=== PATIENT | female | born 1935 | race African-American/Black ===

== ENCOUNTER → 2017-07-12 12:15 | Outpatient (CLI) | payer MEDICARE, SELFPAY ==
--- NOTE | 2017-07-12 12:27 | EKG12_ITS ---
Test Reason : PRESSURE Blood Pressure : / mmHG Vent. Rate : 073 BPM Atrial Rate : 073 BPM P-R Int : 162 ms QRS Dur : 084 ms QT Int : 386 ms P-R-T Axes : 065 -18 -05 degrees QTc Int : 425 ms Normal sinus rhythm Leftward axis Nonspecific T wave abnormality Confirmed by DANISHA SALMON, [place] ([id number]), photograph editor SAMI PARRISH ([id number]) on 07/13/2017 1:51:03 PM Referred By: Wayne Leahy Confirmed By:CHINA RAMAN MD
[2017-07-12 13:18] LABS: Absolute Lymphocyte Count 2.54 X10^3/ul (0.83-4.51); Absolute Neutrophil Count 3.3 X10^3/uL (2.0-7.7); Basophil# 0.06 X10^3/uL; Basophil% 0.9 % (0-1); Eosinophil# 0.24 X10^3/uL; Eosinophils% 3.6 % (0-5); Hematocrit 39.4 % (37-47); Hemoglobin 11.6 g/dl (12.0-15.0); Lymphocyte # 2.54 X10^3/ul (4.0); Lymphocyte % 37.6 % (19-41); Mean Corp Hgb Conc 29.4 g/gl (32-36); Mean Corpuscular Hgb 25.3 pg (27.0-32.0); Mean Corpuscular Volume 85.8 fL (81-99); Mean Platelet Vol. 11.9 fl (6.2-12.0); Monocyte# 0.61 X10^3/uL; Neutrophil % 48.8 % (47-70); Platelet Count 182 K/mm3 (150-450); RBC Distribution Width CV 14.5 % (11.6-14.6); RBC Distribution Width SD 45.7 fl (35.1-43.9); Red Blood Count 4.59 M/mm3 (4.2-5.4); White Blood Count 6.8 K/mm3 (4.4-11.0)
[2017-07-12 13:29] LABS: POSITIVE COUNT NO; POSITIVE DIFFERENTIAL NO; POSITIVE MORPHOLOGY NO
[2017-07-12 13:46] LABS: ALB/GLOB Ratio 0.9 RATIO (0.9-2.4); AST(SGOT) 22 U/L (15-37); Alanine Aminotransfer ALT/SGPT 22 U/L (13-56); Albumin, Serum 3.5 g/dL (3.2-5.0); Alkaline Phosphatase 99 U/L (45-117); Anion Gap 7 (5-15); BUN 24 mg/dL (7-18); BUN/Creat Ratio 14.4 RATIO (10-20); Calcium,Total 8.8 mg/dL (8.5-10.1); Chloride 107 mmol/L (98-107); Cholesterol 161 mg/dL (200); Creatinine, Serum 1.67 mg/dL (0.55-1.02); EST Glomerular Filtration Rate 31 mL/min (>60); Est Glom Filt Rate - Afr Amer 38 mL/min (>60); Glucose 80 mg/dL (74-106); High Density Lipoprotein 55 mg/dL; Potassium 3.9 mmol/L (3.5-5.1); Protein, Total 7.5 g/dL (6.4-8.2); Sodium Level 140 mmol/L (136-145); Triglycerides 113 mg/dL; Very Low Density Lipoprotein 23 mg/dL (5-40)
== END ==
PROVIDERS: Family Provider Family Medicine Geriatric Medicine; PCP Family Medicine Geriatric Medicine; Visit Provider Family Medicine Geriatric Medicine
DX: I10 Essential (primary) hypertension (principal); E78.4 Other hyperlipidemia; E55.9 Vitamin D deficiency, unspecified; R07.9 Chest pain, unspecified
CPT/HCPCS: 36415; 80053; 80061; 82306; 84443; 85025; 93005

== ENCOUNTER → 2017-07-12 14:49 | Outpatient (CLI) | payer MEDICARE, SELFPAY ==
--- NOTE | 2017-07-12 15:12 | MRI_ITS ---
STUDY: MRI BRAIN WITHOUT CONTRAST REASON FOR EXAM: Female, 82 years old. PTOSIS left droop x 1 week, mild amador, hx cva's TECHNIQUE: Standardized multiplanar fat and water weighted pulse sequences were obtained. Sagittal T1 FLAIR, axial diffusion, T2, FLAIR, T1 and gradient as well as coronal T2 images. COMPARISON: July 21, 2015 FINDINGS: There is encephalomalacia associated with the inferior right occipital lobe. This appears old. There is mild diffuse brain volume loss. There are multiple white matter hyperintensities, distributed throughout the deep white matter tracts of the cerebral hemispheres, consistent with mild to moderate chronic white matter ischemic changes. There is no evidence for recent intracranial ischemia or other cause of cytotoxic edema on diffusion weighted imaging (DWI). Normal T2* images of the brain without demonstrated susceptibility artifact. There is no demonstrated hemosiderin stain. Normal bilateral basal ganglia. Normal thalami. There is no extra-axial fluid accumulation. Normal flow voids within the major intracranial circulation suggesting patency by spin echo criteria. Normal sella turcica, pituitary gland, infundibular stalk, optic chiasm and hypothalamus. Normal tectal plate and pineal gland. Normal midbrain, bree and medulla. There appear small bilateral old focal posterior cerebellar infarcts. Normal basal cisterns. Normal bilateral temporal bones. Normal bilateral internal auditory canals. No demonstrated orbital abnormality, within the constraints of a routine brain study. There our bilateral ethmoid airspace opacities. This most prominently involves the anterior ethmoid air spaces. There is also opacity of the left frontal sinus and mucoperiosteal thickening of the inferior right frontal sinus. There is bilateral maxillary mucoperiosteal thickening with dependent fluid on the left. Normal calvarium and skull base. Normal visualized soft tissue structures. Normal visualized upper cervical spine. MRI/Brain without Contrast IMPRESSION: Involutional changes of the brain, as described above. No demonstrated mass. Sinus disease. Electronically Signed: Kenya Berman MD at 18:17 EST Tel , Service support ,
== END ==
PROVIDERS: Family Provider Family Medicine Geriatric Medicine; PCP Family Medicine Geriatric Medicine; Visit Provider Family Medicine Geriatric Medicine
DX: H02.402 Unspecified ptosis of left eyelid (principal); I10 Essential (primary) hypertension; E78.4 Other hyperlipidemia; E55.9 Vitamin D deficiency, unspecified; R07.9 Chest pain, unspecified
CPT/HCPCS: 36415; 70551; 80053; 80061; 82306; 84443; 85025; 93005

== ENCOUNTER → 2017-10-07 08:55 | Outpatient (CLI) | payer MEDICARE, SELFPAY ==
[2017-10-07 12:20] LABS: Absolute Lymphocyte Count 2.28 X10^3/ul (0.83-4.51); Absolute Neutrophil Count 3.5 X10^3/uL (2.0-7.7); Basophil# 0.06 X10^3/uL; Basophil% 0.9 % (0-1); Eosinophil# 0.12 X10^3/uL; Eosinophils% 1.8 % (0-5); Hematocrit 36.9 % (37-47); Lymphocyte # 2.28 X10^3/ul (4.0); Lymphocyte % 34.5 % (19-41); Mean Corp Hgb Conc 29.8 g/gl (32-36); Mean Corpuscular Hgb 26.6 pg (27.0-32.0); Mean Corpuscular Volume 89.3 fL (81-99); Mean Platelet Vol. 12.2 fl (6.2-12.0); Monocyte% 9.1 % (0-10); Neutrophil # 3.54 X10^3/uL (2.7-7.7); Neutrophil % 53.5 % (47-70); Platelet Count 122 K/mm3 (150-450); RBC Distribution Width CV 15.8 % (11.6-14.6); RBC Distribution Width SD 50.8 fl (35.1-43.9); Red Blood Count 4.13 M/mm3 (4.2-5.4); White Blood Count 6.6 K/mm3 (4.4-11.0)
[2017-10-07 12:26] LABS: POSITIVE COUNT NO; POSITIVE DIFFERENTIAL NO; POSITIVE MORPHOLOGY NO
[2017-10-07 12:41] LABS: Vitamin D,25 Hydroxy 34.4 ng/mL (29.95-100.01)
[2017-10-07 13:21] LABS: ALB/GLOB Ratio 0.8 RATIO (0.9-2.4); AST(SGOT) 17 U/L (15-37); Alanine Aminotransfer ALT/SGPT 14 U/L (13-56); Albumin, Serum 2.9 g/dL (3.2-5.0); Alkaline Phosphatase 88 U/L (45-117); Anion Gap 5 (5-15); BUN 27 mg/dL (7-18); BUN/Creat Ratio 12.3 RATIO (10-20); Calcium,Total 7.9 mg/dL (8.5-10.1); Chloride 115 mmol/L (98-107); Cholesterol 160 mg/dL (200); Creatinine, Serum 2.19 mg/dL (0.55-1.02); EST Glomerular Filtration Rate 23 mL/min (>60); Est Glom Filt Rate - Afr Amer 28 mL/min (>60); Globulin 3.7 g/dL (2.2-4.2); Glucose 74 mg/dL (74-106); High Density Lipoprotein 67 mg/dL; Potassium 4.2 mmol/L (3.5-5.1); Protein, Total 6.6 g/dL (6.4-8.2); Sodium Level 144 mmol/L (136-145); Thyroid Stim Hormone (TSH) 4.67 uIU/mL (0.358-3.74); Triglycerides 44 mg/dL; Very Low Density Lipoprotein 9 mg/dL (5-40)
== END ==
LOC: POLAB3 08:56
PROVIDERS: Family Provider Family Medicine Geriatric Medicine; PCP Family Medicine Geriatric Medicine; Visit Provider Family Medicine Geriatric Medicine
DX: I10 Essential (primary) hypertension (principal); E78.4 Other hyperlipidemia; E55.9 Vitamin D deficiency, unspecified; I63.50 Cerebral infarction due to unspecified occlusion or stenosis of unspecified cerebral artery
CPT/HCPCS: 36415; 80053; 80061; 82306; 84443; 85025

== ENCOUNTER → 2018-01-20 09:10 | Outpatient (CLI) | payer MEDICARE, SELFPAY ==
[2018-01-20 12:39] LABS: Absolute Lymphocyte Count 1.67 X10^3/ul (0.83-4.51); Absolute Neutrophil Count 3.5 X10^3/uL (2.0-7.7); Basophil# 0.06 X10^3/uL; Eosinophil# 0.31 X10^3/uL; Eosinophils% 5.1 % (0-5); Hematocrit 37.4 % (37-47); Hemoglobin 11.4 g/dl (12.0-15.0); Lymphocyte # 1.67 X10^3/ul (4.0); Lymphocyte % 27.5 % (19-41); Mean Corp Hgb Conc 30.5 g/gl (32-36); Mean Corpuscular Hgb 27.2 pg (27.0-32.0); Mean Corpuscular Volume 89.3 fL (81-99); Mean Platelet Vol. 12.2 fl (6.2-12.0); Monocyte# 0.53 X10^3/uL; Monocyte% 8.7 % (0-10); Neutrophil % 57.5 % (47-70); Platelet Count 145 K/mm3 (150-450); RBC Distribution Width CV 13.7 % (11.6-14.6); RBC Distribution Width SD 43.9 fl (35.1-43.9); Red Blood Count 4.19 M/mm3 (4.2-5.4); White Blood Count 6.1 K/mm3 (4.4-11.0)
[2018-01-20 12:40] LABS: POSITIVE COUNT NO; POSITIVE DIFFERENTIAL NO; POSITIVE MORPHOLOGY NO
[2018-01-20 12:52] LABS: Vitamin D,25 Hydroxy 29.3 ng/mL (29.95-100.01)
[2018-01-20 12:57] LABS: ALB/GLOB Ratio 0.8 RATIO (0.9-2.4); AST(SGOT) 19 U/L (15-37); Alanine Aminotransfer ALT/SGPT 16 U/L (13-56); Albumin, Serum 3.2 g/dL (3.2-5.0); Alkaline Phosphatase 94 U/L (45-117); Anion Gap 10 (5-15); BUN 26 mg/dL (7-18); BUN/Creat Ratio 12.2 RATIO (10-20); Calcium,Total 8.3 mg/dL (8.5-10.1); Chloride 110 mmol/L (98-107); Cholesterol 146 mg/dL (200); Creatinine, Serum 2.13 mg/dL (0.55-1.02); EST Glomerular Filtration Rate 24 mL/min (>60); Est Glom Filt Rate - Afr Amer 29 mL/min (>60); Globulin 4.1 g/dL (2.2-4.2); Glucose 136 mg/dL (74-106); High Density Lipoprotein 55 mg/dL; Potassium 3.8 mmol/L (3.5-5.1); Protein, Total 7.3 g/dL (6.4-8.2); Sodium Level 144 mmol/L (136-145); Thyroid Stim Hormone (TSH) 0.48 uIU/mL (0.358-3.74); Triglycerides 118 mg/dL; Very Low Density Lipoprotein 24 mg/dL (5-40)
== END ==
PROVIDERS: Family Provider Family Medicine Geriatric Medicine; PCP Family Medicine Geriatric Medicine; Visit Provider Family Medicine Geriatric Medicine
DX: E55.9 Vitamin D deficiency, unspecified (principal); E78.4 Other hyperlipidemia; I10 Essential (primary) hypertension
CPT/HCPCS: 36415; 80053; 80061; 82306; 84443; 85025

== ENCOUNTER → 2018-01-20 14:58 | Outpatient (CLI) | payer MEDICARE, SELFPAY | PROVIDERS: Family Provider Family Medicine Geriatric Medicine; PCP Family Medicine Geriatric Medicine; Visit Provider Urology | DX: C64.9 Malignant neoplasm of unspecified kidney, except renal pelvis (principal); R31.9 Hematuria, unspecified; I10 Essential (primary) hypertension; E55.9 Vitamin D deficiency, unspecified; E78.4 Other hyperlipidemia | CPT/HCPCS: 36415; 74176; 80053; 80061; 82306; 84443; 85025 ==

== ENCOUNTER 2018-01-29 09:12 | Inpatient (IN) | payer MEDICARE, SELFPAY ==
[2018-01-29] VITALS (34 sets, daily range): BP systolic 143–191; BP diastolic 64–101; PULSE 71–93; RESP 14–72; TEMP 36.3–37.1; O2SAT 18–100; BMI 32.7
--- NOTE | 2018-01-29 09:20 | EKG12_ITS ---
Test Reason : STROKE Blood Pressure : / mmHG Vent. Rate : 079 BPM Atrial Rate : 079 BPM P-R Int : 166 ms QRS Dur : 082 ms QT Int : 360 ms P-R-T Axes : 064 -24 -25 degrees QTc Int : 412 ms Sinus rhythm with Premature atrial complexes with Aberrant conduction Nonspecific T wave abnormality Abnormal ECG Confirmed by ROHITH SALMON, JOSE ELIAS ([id number]), video news editor SAMI PARRISH ([id number]) on 01/31/2018 1:29:13 PM Referred By: MISAEL/HAILY Confirmed By:JOSE ELIAS NEWBERRY MD
[2018-01-29 09:36] LABS: Bedside Glucose 172 mg/dL (70-110)
[2018-01-29 09:40] LABS: Absolute Lymphocyte Count 1.64 X10^3/ul (0.83-4.51); Absolute Neutrophil Count 3.4 X10^3/uL (2.0-7.7); Basophil# 0.04 X10^3/uL; Basophil% 0.7 % (0-1); Eosinophil# 0.21 X10^3/uL; Eosinophils% 3.7 % (0-5); Hematocrit 37.3 % (37-47); Hemoglobin 11.1 g/dl (12.0-15.0); Lymphocyte # 1.64 X10^3/ul (4.0); Lymphocyte % 28.8 % (19-41); Mean Corp Hgb Conc 29.8 g/gl (32-36); Mean Corpuscular Volume 87.4 fL (81-99); Monocyte# 0.43 X10^3/uL; Monocyte% 7.5 % (0-10); Neutrophil # 3.37 X10^3/uL (2.7-7.7); Neutrophil % 59.1 % (47-70); Platelet Count 154 K/mm3 (150-450); RBC Distribution Width CV 13.9 % (11.6-14.6); RBC Distribution Width SD 43.6 fl (35.1-43.9); Red Blood Count 4.27 M/mm3 (4.2-5.4); White Blood Count 5.7 K/mm3 (4.4-11.0)
[2018-01-29 09:41] LABS: POSITIVE COUNT NO; POSITIVE DIFFERENTIAL NO; POSITIVE MORPHOLOGY NO
[2018-01-29 09:46] LABS: Prothrombin Time (Protime)PT. 13.6 SECONDS (11.7-14.9)
[2018-01-29 09:47] LABS: Partial Thromboplast Time 36.9 Seconds (24.1-36.2)
[2018-01-29 09:57] LABS: Anion Gap 9 (5-15); BUN 25 mg/dL (7-18); BUN/Creat Ratio 12.2 RATIO (10-20); Calcium,Total 8.5 mg/dL (8.5-10.1); Chloride 113 mmol/L (98-107); Creatinine, Serum 2.05 mg/dL (0.55-1.02); EST Glomerular Filtration Rate 25 mL/min (>60); Est Glom Filt Rate - Afr Amer 30 mL/min (>60); Glucose 161 mg/dL (74-106); Potassium 3.6 mmol/L (3.5-5.1); Sodium Level 145 mmol/L (136-145)
--- NOTE | 2018-01-29 11:55 | PCM.HP.STD ---
Problem List (1) CVA (cerebral vascular accident) Status: Acute Qualifiers: Laterality of affected vessel: right History of Present Illness Date of Admission: 01/29/18 Chief Complaint: right sided weakness. aphasia. The patient is a 83 year old F who was in normal state of health. Roughly at 0840 experienced right sided weakness and aphasia. Sent to ED. NIH was 6. ER discussed with Dr. Villegas, who advised TPA. Pt received TPA and subsequently has had improvement in her right sided hemiparesis, through still aphasic. Pt has had a history of TIAs, but never to this degree of symptoms before. Patient with expressive and receptive aphasia and, therefore, unable to provide any history. History is obtained through ER physician and family. Previous to this event, patient was independent.[] Past Medical History Past Medical History (Chronic Problems): Chronic Problems History of stroke (Chronic) Asthma (Chronic) Glaucoma (Chronic) Hypertension (Chronic) CKD (chronic kidney disease) stage 3, GFR 30-59 ml/min (Chronic) Obesity (BMI 30.0-34.9) (Chronic) Hyperlipidemia (Chronic) Allergies erythromycin base Allergy (Verified 01/29/18 09:32) Rash lisinopril Allergy (Verified 01/29/18 09:32) Unknown NSAIDS (Non-Steroidal Anti-Inflamma Allergy (Verified 01/29/18 09:32) Other Salicylates Allergy (Verified 01/29/18 09:32) Other PROTEIN IN URINE DRUG Allergy (Uncoded 01/29/18 09:32) Other Home Medications: Ambulatory Orders Medication Instructions Recorded Amlodipine Besylate 10 mg PO DAILY 12/26/14 Bimatoprost 0.01% [Lumigan 0.01%] 1 drop RIGHT EYE QHS 12/27/14 Atorvastatin Calcium [Lipitor] 20 mg PO QHS 07/20/15 Budesonide/Formoterol 160/4.5 1 puff INHALATION DAILY PRN PRN 07/20/15 [Symbicort 160/4.5 Mcg Inhaler (SP)] Ergocalciferol [Vitamin D] 50,000 unit PO QMONTH 07/20/15 Montelukast Sodium [Singulair] 10 mg PO DAILY 07/20/15 Aspirin E.C. [Ecotrin] 81 mg PO DAILY@0800 #30 tablet 07/22/15 Clopidogrel Bisulfate [Plavix] 75 mg PO DAILY #30 tablet 07/31/15 Methazolamide [Neptazane] 50 mg PO BID 11/26/15 Timolol 0.5% [Timoptic] 1 drop EACH EYE BID 11/26/15 Albuterol Aerosols [Ventolin 2.5 mg INHALATION Q2H PRN PRN #1 05/20/16 Aerosols] box Ensure Enlive 120 ml PO 4X/DAY #30 liquid 05/20/16 Guaifenesin [Robitussin] 10 ml PO Q6H PRN PRN #1 bottle 05/20/16 Levothyroxine [Synthroid] 100 mcg PO DAILY 01/29/18 Surgical History: cataract, hysterectomy, - - Leg tumor removed, unclear. Foot surgery, neck surgery-type unknown Psychiatric History: Attn. 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 Please see HPI for further details. VTE Information - Inpt Only VTE Present on Admission: No VTE Mechan Device Prophylaxis: SCD's Reason prophylaxis not ordered:: Medical Contraindication - Physical Exam General: Alert, Cooperative, Well developed, Well nourished, Confused, Disoriented, - - Oriented ?0. HEENT: Atraumatic, PERRLA, EOMI, Normocephalic Oral: Moist Mucosa, No Gingival or Mucosal Lesions/ Ulcerations Neck: No Nodes, Thyroid Normal Size and Texture Lungs: Clear to auscultation, Normal air movement, No rhonchi, No wheeze Cardiovascular: Regular rate, Regular Rhythm, Normal S1, Normal S2, No murmurs Abdomen: Bowel Sounds Present, Soft, Non Tender, Non-Distended, No Hepato-splenomegaly Extremities: No edema, No Calf Tenderness Skin: No rashes, No breakdown Musculoskeletal: No Tenderness to Palpation of Joints or Extremities, No Muscle Wasting Lymphatic: No Cervical, Supraclavicular, or Inguinal Adenopathy, Cervical Adenopathy Neurological: Cranial nerves II-XII grossly intact, Motor Exam 5/5 strength throughout, - - Expressive and receptive aphasia. NIH of 5. Psych/Mental Status: Normal Affect, Appropriate Vital Signs Temp Pulse Resp BP Pulse Ox 36.8 C 81 16 169/80 H 98 01/29/18 09:21 01/29/18 11:41 01/29/18 11:41 01/29/18 11:41 01/29/18 11:41 Oxygen Flow Rate (L/min) 2 Oxygen Delivery Method Room Air Weight: 83.8 kg Body Mass Index (BMI) 32.7 Finger Stick Blood Glucose 172 Laboratory Tests Past 24 Hrs 01/29/18 01/29/18 01/29/18 09:17 09:20 09:20 WBC 5.7 RBC 4.27 Hgb 11.1 L Hct 37.3 MCV 87.4 MCH 26.0 L MCHC 29.8 L RDW 13.9 RDW Differential 43.6 Plt Count 154 MPV 11.0 Immature Gran % (Auto) 0.200 Neut % (Auto) 59.1 Lymph % (Auto) 28.8 Borden % (Auto) 7.5 Eos % (Auto) 3.7 Baso % (Auto) 0.7 Absolute Neuts (auto) 3.4 Absolute Lymphs (auto) 1.64 Total Counted Not Reportable PT 13.6 INR 1.0 APTT 36.9 H Sodium Potassium Chloride Carbon Dioxide Anion Gap BUN Creatinine Estim Creat Clear Calc Est GFR (MDRD) Af Amer Est GFR (MDRD) Non-Af BUN/Creatinine Ratio Glucose Calcium Troponin I POC Glucose 172 H 01/29/18 09:20 WBC RBC Hgb Hct MCV MCH MCHC RDW RDW Differential Plt Count MPV Immature Gran % (Auto) Neut % (Auto) Lymph % (Auto) Borden % (Auto) Eos % (Auto) Baso % (Auto) Absolute Neuts (auto) Absolute Lymphs (auto) Total Counted PT INR APTT Sodium 145 Potassium 3.6 Chloride 113 H Carbon Dioxide 23.0 Anion Gap 9 BUN 25 H Creatinine 2.05 H Estim Creat Clear Calc 17.50 Est GFR (MDRD) Af Amer 30 L Est GFR (MDRD) Non-Af 25 L BUN/Creatinine Ratio 12.2 Glucose 161 H Calcium 8.5 Troponin I < 0.015 POC Glucose POC Glucose 01/29/18 09:17 POC Glucose 172 H Clinical Impression(s) from Imaging Studies Brain CT 01/29/18 09:20 IMPRESSION: No definitive evidence of acute hemorrhage infarct or edema. Evidence of old infarct right occipital lobe. Moderate ethmoid and frontal sinusitis. N.B. : The above information has been verbally conveyed by Sanjuanita Stallworth MD to Daniel Castano, Referring Physician, on 01/29/2018 09:41:45 (ET). Electronically Signed: Sanjuanita tSallworth MD at 9:42 EDT Tel , Service support , Chest X-Ray 01/29/18 09:20 IMPRESSION: Persistent right lower lobe mass. Cardiomegaly. Tortuous aorta. No definitive focal infiltrate. Electronically Signed: Sanjuanita Stallworth MD at 9:53 EDT Tel , Service support , Head CTA 01/29/18 09:54 IMPRESSION: Normal [place] without a demonstrated aneurysm or hemodynamically significant stenosis. Electronically Signed: Sanjuanita Stallworth MD at 10:57 EDT Tel , Service support , Neck CTA 01/29/18 09:54 IMPRESSION: Trace calcification of the tortuous medially right side carotid bulb. Both of the carotid bulbs are seen posterior to the level of the epiglottis anterior to the level of C3-C4. No evidence of significant stenosis. Degenerative change of the thoracolumbar spine. Bovine arch with a common takeoff of the bilateral carotid arteries. Electronically Signed: Sanjuanita Stallworth MD at 11:02 EDT Tel , Service support , Assessment/Plan All Active Problems CVA (cerebral vascular accident) (Acute) Cough (Acute) Shortness of breath (Acute) Cerebellar infarct (Acute) Speech apraxia (Acute) CVA (cerebral infarction) (Acute) 1. Acute ischemic stroke Unclear thrombotic or embolic Status post TPA NIH has improved from a 6 to now 5 Still with expressive aphasia and some receptive aphasia Patient has CT angiogram in the emergency room Consult neurology Consult critical care medicine as patient will be in the ICU post TPA Physical, occupational and speech therapy Check an MRI of the brain Check an echocardiogram 2. Chronic kidney disease stage IV Patient did receive IV contrast in the emergency room Patient will be on IV fluids to help mitigate contrast effect on her kidneys The patient does have worsening kidney function, consider nephrology consult. Patient sees Dr. Kianna Patrick as her instructional developer 3. Hypertension Keep systolic blood pressure less than 180 As needed labetalol 4. DVT prophylaxis with SCDs. Chemical prophylaxis contraindicated status post TPA. 5. Hyper glycemia Could be reactive in light of the acute stroke Will put the patient on sliding scale insulin for now and monitor. Code Visit Inpatient E&M: 41937 Init Hosp L3
[2018-01-29] MEDS: 0.9% Normal Saline 1,000 ML 100 ML IV ×2 (12:30→19:25)
--- NOTE | 2018-01-29 12:59 | ED.VISSUMM ---
- ER Visit Summary Date of Service: 01/29/18 Chief Complaint: Stroke History of Present Illness: The patient is a 83 F with a history of multiple strokes and no ongoing deficits. She lives at home. She went to [employer] this morning. At around 830 she had a sudden onset of feeling dizzy. Bystanders noted that she had confused speech and right-sided facial droop. They did not notice any slurring of her speech. She had no other complaints. History is limited secondary to confusion and presumed aphasia. Family reports that she does take aspirin and Plavix. She does not take Coumadin or other blood thinners. She also has a history of asthma, hypertension, hyperlipidemia, glaucoma, and chronic kidney disease. Physical Examination: Blood pressure 160/74. Otherwise vitals unremarkable. Patient is alert and oriented to person only. NIH stroke scale was 6. She received 2 points for level of consciousness questions, 1 point for right-sided facial droop, 2 points for right leg motor, and 1 point for language. Her speech was repetitive. She followed some commands but had difficulty describing objects and images. Heart regular. Lungs clear. Abdomen soft. Head and neck atraumatic. Test Results: EKG showed sinus rhythm at a rate of 79 with PACs. Hemoglobin 11.1. Glucose 161, BUN 25, and creatinine 2.05. INR 1.0 and PTT 36.9. Troponin was normal. CT had showed chronic changes but no acute findings. Chest x-ray showed a right lower lobe mass, cardiomegaly, and a tortuous aorta. Emergency Department Course and Treatment: Patient was a stroke alert per EMS. She was seen immediately, placed on a monitor. EKG, labs, CT performed. Patient was discussed with neurology. She is a TPA candidate. I spoke with patient's family and her PCP. No contraindications for TPA. This was discussed with her daughter. Neurology advised CTA head and neck and starting TPA. This was performed. Patient remained stable. We monitor her blood pressure. CTA showed chronic and congenital findings but nothing acute. She was discussed with radiology, the hospitalist, and the microelectronics engineer and will be admitted for further care. Treatment Plan: As above Disposition: Admission to ICU Impression: 1. Acute stroke ischemic This note was generated with [employer] software. It may contain incorrect words, spelling, and punctuation that were not noted in review of the chart prior to signing ED Disposition - Plan for ED Patient: Disposition: Acute Care Hospital [facility] Chief Complaint: Neuro S/Sx
--- NOTE | 2018-01-29 13:05 | ED.DCSUM_ITS ---
- ER Visit Summary Date of Service: 01/29/18 Chief Complaint: Stroke History of Present Illness: The patient is a 83 F with a history of multiple strokes and no ongoing deficits. She lives at home. She went to [employer] this morning. At around 830 she had a sudden onset of feeling dizzy. Bystanders noted that she had confused speech and right-sided facial droop. They did not notice any slurring of her speech. She had no other complaints. History is limited secondary to confusion and presumed aphasia. Family reports that she does take aspirin and Plavix. She does not take Coumadin or other blood thinners. She also has a history of asthma, hypertension, hyperlipidemia, glaucoma, and chronic kidney disease. Physical Examination: Blood pressure 160/74. Otherwise vitals unremarkable. Patient is alert and oriented to person only. NIH stroke scale was 6. She received 2 points for level of consciousness questions, 1 point for right-sided facial droop, 2 points for right leg motor, and 1 point for language. Her speech was repetitive. She followed some commands but had difficulty describing objects and images. Heart regular. Lungs clear. Abdomen soft. Head and neck atraumatic. Test Results: EKG showed sinus rhythm at a rate of 79 with PACs. Hemoglobin 11.1. Glucose 161, BUN 25, and creatinine 2.05. INR 1.0 and PTT 36.9. Troponin was normal. CT had showed chronic changes but no acute findings. Chest x-ray showed a right lower lobe mass, cardiomegaly, and a tortuous aorta. Emergency Department Course and Treatment: Patient was a stroke alert per EMS. She was seen immediately, placed on a monitor. EKG, labs, CT performed. Patient was discussed with neurology. She is a TPA candidate. I spoke with patient's family and her PCP. No contraindications for TPA. This was discussed with her daughter. Neurology advised CTA head and neck and starting TPA. This was performed. Patient remained stable. We monitor her blood pressure. CTA showed chronic and congenital findings but nothing acute. She was discussed with radiology, the hospitalist, and the psychiatric aide and will be admitted for further care. Treatment Plan: As above Disposition: Admission to ICU Impression: 1. Acute stroke ischemic This note was generated with [employer] software. It may contain incorrect words, spelling, and punctuation that were not noted in review of the chart prior to signing ED Disposition - Plan for ED Patient: Disposition: Acute Care Hospital [facility] Chief Complaint: Neuro S/Sx
--- NOTE | 2018-01-29 13:28 | ECHOD_ITS ---
Reason For Study: CVA Procedure This was a 2D Doppler, Color Flow transthoracic echocardiogram. Exam performed portable in ICU/CCU. Left Ventricle Normal LV size. Left ventricular systolic function is normal. The estimated ejection fraction is 60 %. Stage 1 diastolic dysfunction. No regional wall motion abnormalities noted. Right Ventricle Normal RV size. Normal systolic function. Atria Normal left atrium. Normal right atrium. Mitral Valve Normal mitral valve. Tricuspid Valve Normal tricuspid valve. Aortic Valve Normal aortic valve. Trisinus/trileaflet aortic valve. Pulmonic Valve Normal pulmonic valve. Trivial pulmonic valve insufficiency. Great Vessels Normal aortic root. The pulmonary artery is normal size. Normal inferior vena cava. Pericardium/Pleural No pericardial effusion. Medication Previously negative bubble study on echo. MMode/2D Measurements & Calculations LVIDd: 6.0 cm IVSd: 0.90 cm Ao root diam: 2.9 cm LVIDs: 4.3 cm LVPWd: 1.0 cm LA dimension: 3.6 cm RVDd: 3.1 cm FS: 28.8 % LAV(MOD-bp): 61.0 ml LAV(MOD-bp) Indexed: 32.7 ml/m2 LA A4 area: 20.2 cm2 RA A4 area: 15.5 cm2 LAV(MOD-sp2): 60.4 ml LAV(MOD-sp4): 54.7 ml Time Measurements MV dec time: 0.26 sec Doppler Measurements & Calculations MV E max ghanshyam: 93.4 cm/sec Lat Peak E' Ghanshyam: 5.1 cm/sec Med Peak E' Ghanshyam: 5.4 cm/sec MV A max ghanshyam: 142.5 cm/sec E/E' lat: 18.3 E/E' med: 17.4 MV E/A: 0.66 MV V2 max: 171.7 cm/sec Ao V2 max: 156.0 cm/sec LV V1 max: 117.0 cm/sec MV max P.8 mmHg Ao max P.7 mmHg LV V1 max P.5 mmHg MV V2 mean: 85.7 cm/sec MV mean P.5 mmHg MV V2 VTI: 31.8 cm TR max ghanshyam: 245.9 cm/sec TR max P.2 mmHg Interpretation Summary Normal LV size. Left ventricular systolic function is normal. The estimated ejection fraction is 60 %. Stage 1 diastolic dysfunction. Probable liver cyst noted Compared to prior study, there is no significant change. Ordering Physician: Jim Jerez Referring Physician: JESUS MOLINA CHI Performed By: Nano Wilson, RDCS, RVT
[2018-01-29] MEDS: Atorvastatin Calcium 20 MG Tablet PO (21:37)
[2018-01-29] MEDS: Latanoprost 0.005% 1 Bottle 1 DRP RIGHT EYE (21:38)
[2018-01-29] MEDS: Timolol 0.5% 5ML OPTH.BTL 1 DRP EACH EYE (21:39)
[2018-01-30] VITALS (31 sets, daily range): BP systolic 149–190; BP diastolic 61–99; PULSE 70–89; RESP 14–24; TEMP 36.3–37.6; O2SAT 95–100; BMI 32.7
[2018-01-30 03:34] LABS: Hematocrit 30.6 % (37-47); Hemoglobin 9.5 g/dl (12.0-15.0); Mean Corpuscular Hgb 27.1 pg (27.0-32.0); Mean Corpuscular Volume 87.4 fL (81-99); Mean Platelet Vol. 11.6 fl (6.2-12.0); Platelet Count 150 K/mm3 (150-450); RBC Distribution Width CV 13.6 % (11.6-14.6); RBC Distribution Width SD 42.1 fl (35.1-43.9); White Blood Count 6.7 K/mm3 (4.4-11.0)
[2018-01-30 03:37] LABS: Scan Indicated on CBC? Y/N NO
[2018-01-30 03:51] LABS: Anion Gap 9 (5-15); BUN 22 mg/dL (7-18); BUN/Creat Ratio 12.9 RATIO (10-20); Calcium,Total 7.7 mg/dL (8.5-10.1); Chloride 114 mmol/L (98-107); Cholesterol 117 mg/dL (200); EST Glomerular Filtration Rate 31 mL/min (>60); Est Glom Filt Rate - Afr Amer 37 mL/min (>60); Estimated Creatinine Clearance 20.18 ml/min; Glucose 78 mg/dL (74-106); High Density Lipoprotein 45 mg/dL; Potassium 3.8 mmol/L (3.5-5.1); Sodium Level 145 mmol/L (136-145); Triglycerides 75 mg/dL; Very Low Density Lipoprotein 15 mg/dL (5-40)
[2018-01-30] MEDS: Levothyroxine 100 MCG Tablet PO (05:07)
[2018-01-30] MEDS: 0.9% Normal Saline 1,000 ML 100 ML IV ×2 (05:07→17:54)
--- NOTE | 2018-01-30 07:00 | PCM.CON.CC ---
Reason for Consult Date of Consultation: 01/30/18 Reason for Consultation: CVA status post TPA History of Present Illness: The patient is an 83-year-old female, with a history as outlined below, who presented to the emergency department on January 29 with complaints of dizziness, confusion, dysarthria and facial droop. On presentation to the emergency department, the patient was noted to be afebrile with a blood pressure of 160/74. She was maintaining appropriate oxygen saturations on room air. Laboratory evaluation revealed no evidence of a leukocytosis. Chemistry profile revealed evidence of acute kidney injury with a creatinine of 2.05. Troponin was negative. CT head revealed no acute intracranial hemorrhage or edema. There was evidence of an old infarct in the right occipital lobe. Subsequent CTA head and neck revealed no significant stenosis. The patient had an initial NIH stroke scale of 6. The case was discussed with neurology and TPA was felt to be indicated. Following administration of systemic lytics, the patient was transferred to the medical intensive care unit for ongoing management. Past Medical History Past Medical History (Chronic Problems): Chronic Problems History of stroke (Chronic) Asthma (Chronic) Glaucoma (Chronic) Hypertension (Chronic) CKD (chronic kidney disease) stage 3, GFR 30-59 ml/min (Chronic) Obesity (BMI 30.0-34.9) (Chronic) Hyperlipidemia (Chronic) Allergies erythromycin base Allergy (Verified 01/29/18 09:32) Rash lisinopril Allergy (Verified 01/29/18 09:32) Unknown NSAIDS (Non-Steroidal Anti-Inflamma Allergy (Verified 01/29/18 09:32) Other Salicylates Allergy (Verified 01/29/18 09:32) Other PROTEIN IN URINE DRUG Allergy (Uncoded 01/29/18 09:32) Other Home Medications: Ambulatory Orders Medication Instructions Recorded Amlodipine Besylate 10 mg PO DAILY 12/26/14 Bimatoprost 0.01% [Lumigan 0.01%] 1 drop RIGHT EYE QHS 12/27/14 Atorvastatin Calcium [Lipitor] 20 mg PO QHS 07/20/15 Budesonide/Formoterol 160/4.5 1 puff INHALATION DAILY PRN PRN 07/20/15 [Symbicort 160/4.5 Mcg Inhaler (SP)] Ergocalciferol [Vitamin D] 50,000 unit PO QMONTH 07/20/15 Montelukast Sodium [Singulair] 10 mg PO DAILY 07/20/15 Aspirin E.C. [Ecotrin] 81 mg PO DAILY@0800 #30 tablet 07/22/15 Clopidogrel Bisulfate [Plavix] 75 mg PO DAILY #30 tablet 07/31/15 Methazolamide [Neptazane] 50 mg PO BID 11/26/15 Timolol 0.5% [Timoptic] 1 drop EACH EYE BID 11/26/15 Albuterol Aerosols [Ventolin 2.5 mg INHALATION Q2H PRN PRN #1 05/20/16 Aerosols] box Ensure Enlive 120 ml PO 4X/DAY #30 liquid 05/20/16 Guaifenesin [Robitussin] 10 ml PO Q6H PRN PRN #1 bottle 05/20/16 Levothyroxine [Synthroid] 100 mcg PO DAILY 01/29/18 Surgical History: cataract, hysterectomy, - - Leg tumor removed, unclear. Foot surgery, neck surgery-type unknown Psychiatric History: Attn. 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 Smoking Status: Never smoker - *Family History Maternal History Items: Hypertension Paternal History Items: Hypertension Review of Systems Constitutional: Denies: Chills, Fever, Night Sweats Eyes: Denies: Blurred vision, Double vision HEENT: Denies: Difficulty Swallowing, Head Aches, Sinus Congestion, Sinus Drainage Cardiovascular: Denies: Chest Pain, Palpitations Respiratory: Denies: Cough, Shortness of breath at rest, Sputum production Gastrointestinal: Denies: Abdominal Pain, Nausea, Vomiting Genitourinary: Denies: Dysuria Musculoskeletal: Denies: Joint Pain, Joint Tenderness Skin: Denies: Rash, Wounds Neurological: Denies: Numbness, Tingling, Focal weakness Psychiatric: Denies: Anxiety, Depression, Homicidal Ideations, Suicidal Ideations Hematologic/ Lymphatic: Denies: Easy Bruising, Easy Bleeding Patient Problems: Active and Suspected Problems Stroke (Acute) Objective: The patient's most recent lab work, culture data and imaging studies have all been personally reviewed. - Physical Exam General: Alert, Oriented x3, Cooperative, No apparent distress HEENT: Atraumatic, PERRLA, Normocephalic Oral: No Gingival or Mucosal Lesions/ Ulcerations Neck: Supple, No Nodes, Trachea Midline Lungs: Normal air movement, No rhonchi, No wheeze, No rales Cardiovascular: Regular rate, Regular Rhythm, Normal S1, Normal S2, No murmurs Abdomen: Bowel Sounds Present, Soft, Non Tender Extremities: No clubbing, No cyanosis, No edema Skin: No breakdown Musculoskeletal: No Tenderness to Palpation of Joints or Extremities Lymphatic: No Cervical, Supraclavicular, or Inguinal Adenopathy Neurological: Cranial nerves II-XII grossly intact, Neuro grossly intact Psych/Mental Status: Normal Affect, Appropriate Vital Signs Temp Pulse Resp BP Pulse Ox 98.7 F 76 22 H 175/74 H 97 01/30/18 06:00 01/30/18 06:00 01/30/18 06:00 01/30/18 06:00 01/30/18 06:00 Oxygen Delivery Method Room Air Weight: 179 lb 14.355 oz Body Mass Index (BMI) 32.7 Intake and Output for Last 24 Hours 01/28/18 01/29/18 01/30/18 23:59 23:59 23:59 Intake Total 1552 / 1552 716 / 716 Output Total 1725 / 1725 700 / 700 Balance -173 / -173 Laboratory Tests Past 24 Hrs 01/29/18 01/30/18 01/30/18 14:31 03:25 03:25 WBC 6.7 RBC 3.50 L Hgb 9.5 L Hct 30.6 L MCV 87.4 MCH 27.1 MCHC 31.0 L RDW 13.6 RDW Differential 42.1 Plt Count 150 MPV 11.6 Sodium 145 Potassium 3.8 Chloride 114 H Carbon Dioxide 22.0 Anion Gap 9 BUN 22 H Creatinine 1.70 H Estim Creat Clear Calc 20.18 Est GFR (MDRD) Af Amer 37 L Est GFR (MDRD) Non-Af 31 L BUN/Creatinine Ratio 12.9 Glucose 78 Calcium 7.7 L Troponin I < 0.015 Triglycerides 75 Cholesterol 117 LDL Cholesterol 57 VLDL Cholesterol 15 HDL Cholesterol 45 Clinical Impression(s) from Imaging Studies Brain CT 01/29/18 09:20 IMPRESSION: No definitive evidence of acute hemorrhage infarct or edema. Evidence of old infarct right occipital lobe. Moderate ethmoid and frontal sinusitis. N.B. : The above information has been verbally conveyed by Sanjuanita Stallworth MD to Daniel Castano, Referring Physician, on 01/29/2018 09:41:45 (ET). Electronically Signed: Sanjuanita Stallworth MD at 9:42 EDT Tel , Service support , Chest X-Ray 01/29/18 09:20 IMPRESSION: Persistent right lower lobe mass. Cardiomegaly. Tortuous aorta. No definitive focal infiltrate. Electronically Signed: Sanjuanita Stallworth MD at 9:53 EDT Tel , Service support , Head CTA 01/29/18 09:54 IMPRESSION: Normal [place] without a demonstrated aneurysm or hemodynamically significant stenosis. Electronically Signed: Sanjuanita Stallworth MD at 10:57 EDT Tel , Service support , Neck CTA 01/29/18 09:54 IMPRESSION: Trace calcification of the tortuous medially right side carotid bulb. Both of the carotid bulbs are seen posterior to the level of the epiglottis anterior to the level of C3-C4. No evidence of significant stenosis. Degenerative change of the thoracolumbar spine. Bovine arch with a common takeoff of the bilateral carotid arteries. Electronically Signed: Sanjuanita Stallworth MD at 11:02 EDT Tel , Service support , Assessment/Plan Active and Suspected Problems Stroke (Acute) RECOMMENDATIONS: 1. Continue post TPA protocol. Allow for permissive hypertension for now. 2. Recommend antiplatelet medication initiation after 24 hours. 3. Statin therapy has already been initiated. 4. Will need PT/OT evaluation. 5. Echocardiogram is pending. 6. Neurology is following. Await repeat head imaging this afternoon. IMPRESSIONS: 1. Acute ischemic CVA status post TPA Continue management per TPA protocol. Allow for permissive hypertension. Repeat head imaging scheduled for today. Aspirin, statin and antihypertensives will need to be started eventually. PT/OT evaluations later today. Neurology is following. 2. Acute on chronic kidney disease Likely prerenal in etiology, as creatinine has improved with volume expansion. Continue to monitor urine output. No indication for renal replacement therapy at this time. 3. Right lower lobe lung mass noted on chest imaging This is a chronic issue and has been followed by the patient's primary care provider. She recently (October 2016) had a negative PET scan. 4. Baseline hypertension/hypothyroidism/asthma Complicates care, management, recovery and prognosis. This note was generated with [employer] dictation software. It may contain incorrect words, spelling, and punctuation that were not noted in checking the note before signing. Code Visit Inpatient E&M: 33609 Init Hosp L3
--- NOTE | 2018-01-30 07:04 | CON.PCM_ITS ---
Reason for Consult Date of Consultation: 01/30/18 Reason for Consultation: CVA status post TPA History of Present Illness: The patient is an 83-year-old female, with a history as outlined below, who presented to the emergency department on January 29 with complaints of dizziness, confusion, dysarthria and facial droop. On presentation to the emergency department, the patient was noted to be afebrile with a blood pressure of 160/74. She was maintaining appropriate oxygen saturations on room air. Laboratory evaluation revealed no evidence of a leukocytosis. Chemistry profile revealed evidence of acute kidney injury with a creatinine of 2.05. Troponin was negative. CT head revealed no acute intracranial hemorrhage or edema. There was evidence of an old infarct in the right occipital lobe. Subsequent CTA head and neck revealed no significant stenosis. The patient had an initial NIH stroke scale of 6. The case was discussed with neurology and TPA was felt to be indicated. Following administration of systemic lytics, the patient was transferred to the medical intensive care unit for ongoing management. Past Medical History Past Medical History (Chronic Problems): Chronic Problems History of stroke (Chronic) Asthma (Chronic) Glaucoma (Chronic) Hypertension (Chronic) CKD (chronic kidney disease) stage 3, GFR 30-59 ml/min (Chronic) Obesity (BMI 30.0-34.9) (Chronic) Hyperlipidemia (Chronic) Allergies erythromycin base Allergy (Verified 01/29/18 09:32) Rash lisinopril Allergy (Verified 01/29/18 09:32) Unknown NSAIDS (Non-Steroidal Anti-Inflamma Allergy (Verified 01/29/18 09:32) Other Salicylates Allergy (Verified 01/29/18 09:32) Other PROTEIN IN URINE DRUG Allergy (Uncoded 01/29/18 09:32) Other Home Medications: Ambulatory Orders Medication Instructions Recorded Amlodipine Besylate 10 mg PO DAILY 12/26/14 Bimatoprost 0.01% [Lumigan 0.01%] 1 drop RIGHT EYE QHS 12/27/14 Atorvastatin Calcium [Lipitor] 20 mg PO QHS 07/20/15 Budesonide/Formoterol 160/4.5 1 puff INHALATION DAILY PRN PRN 07/20/15 [Symbicort 160/4.5 Mcg Inhaler (SP)] Ergocalciferol [Vitamin D] 50,000 unit PO QMONTH 07/20/15 Montelukast Sodium [Singulair] 10 mg PO DAILY 07/20/15 Aspirin E.C. [Ecotrin] 81 mg PO DAILY@0800 #30 tablet 07/22/15 Clopidogrel Bisulfate [Plavix] 75 mg PO DAILY #30 tablet 07/31/15 Methazolamide [Neptazane] 50 mg PO BID 11/26/15 Timolol 0.5% [Timoptic] 1 drop EACH EYE BID 11/26/15 Albuterol Aerosols [Ventolin 2.5 mg INHALATION Q2H PRN PRN #1 05/20/16 Aerosols] box Ensure Enlive 120 ml PO 4X/DAY #30 liquid 05/20/16 Guaifenesin [Robitussin] 10 ml PO Q6H PRN PRN #1 bottle 05/20/16 Levothyroxine [Synthroid] 100 mcg PO DAILY 01/29/18 Surgical History: cataract, hysterectomy, - - Leg tumor removed, unclear. Foot surgery, neck surgery-type unknown Psychiatric History: Attn. 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 Smoking Status: Never smoker - *Family History Maternal History Items: Hypertension Paternal History Items: Hypertension Review of Systems Constitutional: Denies: Chills, Fever, Night Sweats Eyes: Denies: Blurred vision, Double vision HEENT: Denies: Difficulty Swallowing, Head Aches, Sinus Congestion, Sinus Drainage Cardiovascular: Denies: Chest Pain, Palpitations Respiratory: Denies: Cough, Shortness of breath at rest, Sputum production Gastrointestinal: Denies: Abdominal Pain, Nausea, Vomiting Genitourinary: Denies: Dysuria Musculoskeletal: Denies: Joint Pain, Joint Tenderness Skin: Denies: Rash, Wounds Neurological: Denies: Numbness, Tingling, Focal weakness Psychiatric: Denies: Anxiety, Depression, Homicidal Ideations, Suicidal Ideations Hematologic/ Lymphatic: Denies: Easy Bruising, Easy Bleeding Patient Problems: Active and Suspected Problems Stroke (Acute) Objective: The patient's most recent lab work, culture data and imaging studies have all been personally reviewed. - Physical Exam General: Alert, Oriented x3, Cooperative, No apparent distress HEENT: Atraumatic, PERRLA, Normocephalic Oral: No Gingival or Mucosal Lesions/ Ulcerations Neck: Supple, No Nodes, Trachea Midline Lungs: Normal air movement, No rhonchi, No wheeze, No rales Cardiovascular: Regular rate, Regular Rhythm, Normal S1, Normal S2, No murmurs Abdomen: Bowel Sounds Present, Soft, Non Tender Extremities: No clubbing, No cyanosis, No edema Skin: No breakdown Musculoskeletal: No Tenderness to Palpation of Joints or Extremities Lymphatic: No Cervical, Supraclavicular, or Inguinal Adenopathy Neurological: Cranial nerves II-XII grossly intact, Neuro grossly intact Psych/Mental Status: Normal Affect, Appropriate Vital Signs Temp Pulse Resp BP Pulse Ox 98.7 F 76 22 H 175/74 H 97 01/30/18 06:00 01/30/18 06:00 01/30/18 06:00 01/30/18 06:00 01/30/18 06:00 Oxygen Delivery Method Room Air Weight: 179 lb 14.355 oz Body Mass Index (BMI) 32.7 Intake and Output for Last 24 Hours 01/28/18 01/29/18 01/30/18 23:59 23:59 23:59 Intake Total 1552 / 1552 716 / 716 Output Total 1725 / 1725 700 / 700 Balance -173 / -173 Laboratory Tests Past 24 Hrs 01/29/18 01/30/18 01/30/18 14:31 03:25 03:25 WBC 6.7 RBC 3.50 L Hgb 9.5 L Hct 30.6 L MCV 87.4 MCH 27.1 MCHC 31.0 L RDW 13.6 RDW Differential 42.1 Plt Count 150 MPV 11.6 Sodium 145 Potassium 3.8 Chloride 114 H Carbon Dioxide 22.0 Anion Gap 9 BUN 22 H Creatinine 1.70 H Estim Creat Clear Calc 20.18 Est GFR (MDRD) Af Amer 37 L Est GFR (MDRD) Non-Af 31 L BUN/Creatinine Ratio 12.9 Glucose 78 Calcium 7.7 L Troponin I < 0.015 Triglycerides 75 Cholesterol 117 LDL Cholesterol 57 VLDL Cholesterol 15 HDL Cholesterol 45 Clinical Impression(s) from Imaging Studies Brain CT 01/29/18 09:20 IMPRESSION: No definitive evidence of acute hemorrhage infarct or edema. Evidence of old infarct right occipital lobe. Moderate ethmoid and frontal sinusitis. N.B. : The above information has been verbally conveyed by Sanjuanita Stallworth MD to Daniel Castano, Referring Physician, on 01/29/2018 09:41:45 (ET). Electronically Signed: Sanjuanita Stallworth MD at 9:42 EDT Tel , Service support , Chest X-Ray 01/29/18 09:20 IMPRESSION: Persistent right lower lobe mass. Cardiomegaly. Tortuous aorta. No definitive focal infiltrate. Electronically Signed: Sanjuanita Stallworth MD at 9:53 EDT Tel , Service support , Head CTA 01/29/18 09:54 IMPRESSION: Normal [place] without a demonstrated aneurysm or hemodynamically significant stenosis. Electronically Signed: Sanjuanita Stallworth MD at 10:57 EDT Tel , Service support , Neck CTA 01/29/18 09:54 IMPRESSION: Trace calcification of the tortuous medially right side carotid bulb. Both of the carotid bulbs are seen posterior to the level of the epiglottis anterior to the level of C3-C4. No evidence of significant stenosis. Degenerative change of the thoracolumbar spine. Bovine arch with a common takeoff of the bilateral carotid arteries. Electronically Signed: Sanjuanita Stallworth MD at 11:02 EDT Tel , Service support , Assessment/Plan Active and Suspected Problems Stroke (Acute) RECOMMENDATIONS: 1. Continue post TPA protocol. Allow for permissive hypertension for now. 2. Recommend antiplatelet medication initiation after 24 hours. 3. Statin therapy has already been initiated. 4. Will need PT/OT evaluation. 5. Echocardiogram is pending. 6. Neurology is following. Await repeat head imaging this afternoon. IMPRESSIONS: 1. Acute ischemic CVA status post TPA Continue management per TPA protocol. Allow for permissive hypertension. Repeat head imaging scheduled for today. Aspirin, statin and antihypertensives will need to be started eventually. PT/OT evaluations later today. Neurology is following. 2. Acute on chronic kidney disease Likely prerenal in etiology, as creatinine has improved with volume expansion. Continue to monitor urine output. No indication for renal replacement therapy at this time. 3. Right lower lobe lung mass noted on chest imaging This is a chronic issue and has been followed by the patient's primary care provider. She recently (October 2016) had a negative PET scan. 4. Baseline hypertension/hypothyroidism/asthma Complicates care, management, recovery and prognosis. This note was generated with [employer] dictation software. It may contain incorrect words, spelling, and punctuation that were not noted in checking the note before signing. Code Visit Inpatient E&M: 19038 Init Hosp L3
[2018-01-30] MEDS: Montelukast 10 MG Tablet PO (08:57)
[2018-01-30] MEDS: Clopidogrel Bisulfate 75 MG Tablet PO (08:57)
[2018-01-30] MEDS: Famotidine 20 MG Tablet PO (08:57)
[2018-01-30] MEDS: Timolol 0.5% 5ML OPTH.BTL 1 DRP EACH EYE ×2 (08:58→21:45)
--- NOTE | 2018-01-30 09:49 | PCM.PN.HOSP ---
Subjective: Patient seen and examined. She is an 83-year-old female admitted on 01/29/2018 with a complaint of right-sided weakness and aphasia. NIH score was 6 in the ED and she received TPA after ED at discussed with neurology. She subsequently had improvement in her right-sided hemiparesis though she still has some aphasia. Patient seen and examined this morning. She had no complaints and aphasia appears to have resolved as patient is able to talk very well and understand what is being asked. She denied any weakness, any difficulty finding words, any fever or chills, any headache, any shortness of breath, abdominal pain, any palpitations, any diarrhea or vomiting. 12 point review of systems otherwise negative. Labs and vitals reviewed. Vitals/I&O's: Vital Signs Temp Pulse Resp BP Pulse Ox 98.1 F 78 17 166/71 H 97 01/30/18 08:00 01/30/18 08:00 01/30/18 08:00 01/30/18 08:00 01/30/18 08:00 Oxygen Delivery Method Room Air Weight: 179 lb 14.355 oz Body Mass Index (BMI) 32.7 Intake and Output for Last 24 Hours 01/28/18 01/29/18 01/30/18 23:59 23:59 23:59 Intake Total 1552 / 1552 716 / 716 Output Total 1725 / 1725 700 / 700 Balance -173 / -173 General: Alert, Oriented x3, Cooperative, No apparent distress HEENT: Atraumatic, PERRLA, EOMI, Normocephalic Oral: Moist Mucosa Neck: Supple, No JVD, Negative Carotid Bruits Lungs: Clear to auscultation, Normal air movement, No rhonchi, No wheeze, No rales Cardiovascular: Regular rate, Regular Rhythm, Normal S1, Normal S2, No murmurs Abdomen: Bowel Sounds Present, Soft, Non Tender, Non-Distended, No Hepato-splenomegaly Extremities: No clubbing, No cyanosis, No edema, Capillary Refill Less than 3 Seconds Skin: No rashes, No breakdown Musculoskeletal: No Tenderness to Palpation of Joints or Extremities, No Muscle Wasting Lymphatic: No Cervical, Supraclavicular, or Inguinal Adenopathy Neurological: Cranial nerves II-XII grossly intact, Neuro grossly intact, Motor Exam 5/5 strength throughout, Muscle tone normal, Sensory exam intact to light touch and pain Psych/Mental Status: Normal Affect, Appropriate, Alert and oriented to time, place, person, mood and affect Laboratory Results 01/29/18 14:31: Troponin I < 0.015 01/30/18 03:25: Sodium 145, Potassium 3.8, Chloride 114 H, Carbon Dioxide 22.0, Anion Gap 9, BUN 22 H, Creatinine 1.70 H, Estim Creat Clear Calc 20.18, Est GFR (MDRD) Af Amer 37 L, Est GFR (MDRD) Non-Af 31 L, BUN/Creatinine Ratio 12.9, Glucose 78, Calcium 7.7 L, Triglycerides 75, Cholesterol 117, LDL Cholesterol 57, VLDL Cholesterol 15, HDL Cholesterol 45 01/30/18 03:25: WBC 6.7, RBC 3.50 L, Hgb 9.5 L, Hct 30.6 L, MCV 87.4, MCH 27.1, MCHC 31.0 L, RDW 13.6, RDW Differential 42.1, Plt Count 150, MPV 11.[address] 01/29/18 09:20 IMPRESSION: No definitive evidence of acute hemorrhage infarct or edema. Evidence of old infarct right occipital lobe. Moderate ethmoid and frontal sinusitis. N.B. : The above information has been verbally conveyed by Sanjuanita Stallworth MD to Daniel Castano, Referring Physician, on 01/29/2018 09:41:45 (ET). Electronically Signed: Sanjuanita Stallworth MD at 9:42 EDT Tel , Service support , Chest X-Ray 01/29/18 09:20 IMPRESSION: Persistent right lower lobe mass. Cardiomegaly. Tortuous aorta. No definitive focal infiltrate. Electronically Signed: Sanjuanita Stallworth MD at 9:53 EDT Tel , Service support , Head CTA 01/29/18 09:54 IMPRESSION: Normal [place] without a demonstrated aneurysm or hemodynamically significant stenosis. Electronically Signed: Sanjuanita Stallworth MD at 10:57 EDT Tel , Service support , Neck CTA 01/29/18 09:54 IMPRESSION: Trace calcification of the tortuous medially right side carotid bulb. Both of the carotid bulbs are seen posterior to the level of the epiglottis anterior to the level of C3-C4. No evidence of significant stenosis. Degenerative change of the thoracolumbar spine. Bovine arch with a common takeoff of the bilateral carotid arteries. Electronically Signed: Sanjuanita Stallworth MD at 11:02 EDT Tel , Service support , Current Medications Albuterol Sulfate (Ventolin Aerosols) 2.5 mg INHALATION Q2H PRN PRN PRN Reason: DYSPNEA, WHEEZING Atorvastatin Calcium (Lipitor) 20 mg PO QHS [facility] Last Admin: 01/29/18 21:37 Dose: 20 mg Bisacodyl (Dulcolax) 5 mg PO DAILY PRN PRN PRN Reason: Constipation Clopidogrel Bisulfate (Plavix) 75 mg PO DAILY [facility] Last Admin: 01/30/18 08:57 Dose: 75 mg Ergocalciferol (Vitamin D) 50,000 unit PO QMONTH [facility] Famotidine (Pepcid) 20 mg PO DAILY [facility] Last Admin: 01/30/18 08:57 Dose: 20 mg Guaifenesin (Robitussin) 10 ml PO Q6H PRN PRN PRN Reason: COUGH Sodium Chloride () 1,000 mls @ 100 mls/hr IV .Q10H [facility] Last Admin: 01/30/18 05:07 Dose: 100 mls/hr Labetalol HCl (Trandate) 10 mg IV Q10M PRN PRN Reason: SBP > 180 Stop: 01/30/18 12:28 Latanoprost (Xalatan Opthalmic) 1 drop RIGHT EYE QHS [facility] Last Admin: 01/29/18 21:38 Dose: 1 drop Levothyroxine Sodium (Synthroid) 100 mcg PO DAILY@0600 [facility] Last Admin: 01/30/18 05:07 Dose: 100 mcg Magnesium Hydroxide (Milk Of Magnesia) 30 ml PO DAILY PRN PRN PRN Reason: Constipation Montelukast Sodium (Singulair) 10 mg PO DAILY [facility] Last Admin: 01/30/18 08:57 Dose: 10 mg Non-Formulary Medication (Methazolamide [Neptazane]) 50 mg PO BID [facility] Last Admin: 01/30/18 08:57 Dose: 50 mg Nutritional Formula (Lactose Free) (Ensure Enlive) 120 ml PO 4X/DAY [facility] Last Admin: 01/29/18 21:36 Dose: 120 ml Timolol Maleate (Timoptic) 1 drop EACH EYE BID [facility] Last Admin: 01/30/18 08:58 Dose: 1 drop Medical Necessity - Tobacco Use Smoking Status: Never smoker Assessment/Plan All Active Problems CVA (cerebral vascular accident) (Acute) Cough (Acute) Shortness of breath (Acute) Cerebellar infarct (Acute) Speech apraxia (Acute) CVA (cerebral infarction) (Acute) 1. Acute ischemic stroke s/p TPA has no complaints; NIHSS was 6 on admission, went down to 5. NIHSS this morning is 2. CT angiogram neck showed normal [place], without demonstrated aneurysm or hemodynamically signifcant stenosis. PT/OT on board neurology on board; critical care on board o/a of TPA she received MRI pending aphasia has resolved 2D echo pending to start aspirin ~ 48 hours after she receives TPA. On plavix 75mg daily on statin lipid profile was normal wll check A1C 2. CKD stage IV Creatinine trended down to 1.7 from 2.05 Baseline is around 1.5 Continue IV fluids and monitor 3.Hypertension BP is 166/71 on labetalol prn. 4. Hypothyroidism: on synthroid 5. DVT prophylaxis: SCDs This note was generated with [employer] dictation software. It may contain incorrect words, spelling, and punctuation that were not noted in checking the note before signing. Code Visit Inpatient E&M: 50018 Subs Hosp L2
--- NOTE | 2018-01-30 10:07 | PCM.CONS.GEN ---
Problem List (1) Stroke Status: Acute Qualifiers: Precerebral and cerebral artery: middle cerebral artery Laterality of affected vessel: left Reason for Consult Date of Consultation: 01/30/18 Reason for Consultation: Stroke History of Present Illness: The patient is a 83 year old AAF with PMH HTN, HLD, H/O stroke, CKD, admitted with acute onset right side weakness and aphasia. History taken from medical records and documentation. .Patient was admitted with acute onset dizziness, right sided weakness and aphasia yesterday (01/29/18) that started around 8:40 AM, NIHSS was 6 on admission, patient was a tpa candidate, received IVtpa, there has been improvement in her neurological symptoms, with NIHSS 2 this morning. Pateint at present continues to have mild aphasia. Patient denies any ERAZO, visual disturbances, focal neurological symptoms or sensory loss. Patient lives with her grandson, does not use cane or walker to ambulate, does not drive and denies any frequent falls. CT head on admission reported nothing acute, CTA head/neck did not show any hemodynamically significant stenosis or occlusion. Patient was on ASA/Plavix at home. [] Past Medical History Past Medical History (Chronic Problems): Chronic Problems History of stroke (Chronic) Asthma (Chronic) Glaucoma (Chronic) Hypertension (Chronic) CKD (chronic kidney disease) stage 3, GFR 30-59 ml/min (Chronic) Obesity (BMI 30.0-34.9) (Chronic) Hyperlipidemia (Chronic) Allergies erythromycin base Allergy (Verified 01/29/18 09:32) Rash lisinopril Allergy (Verified 01/29/18 09:32) Unknown NSAIDS (Non-Steroidal Anti-Inflamma Allergy (Verified 01/29/18 09:32) Other Salicylates Allergy (Verified 01/29/18 09:32) Other PROTEIN IN URINE DRUG Allergy (Uncoded 01/29/18 09:32) Other Home Medications: Ambulatory Orders Medication Instructions Recorded Amlodipine Besylate 10 mg PO DAILY 12/26/14 Bimatoprost 0.01% [Lumigan 0.01%] 1 drop RIGHT EYE QHS 12/27/14 Atorvastatin Calcium [Lipitor] 20 mg PO QHS 07/20/15 Budesonide/Formoterol 160/4.5 1 puff INHALATION DAILY PRN PRN 07/20/15 [Symbicort 160/4.5 Mcg Inhaler (SP)] Ergocalciferol [Vitamin D] 50,000 unit PO QMONTH 07/20/15 Montelukast Sodium [Singulair] 10 mg PO DAILY 07/20/15 Aspirin E.C. [Ecotrin] 81 mg PO DAILY@0800 #30 tablet 07/22/15 Clopidogrel Bisulfate [Plavix] 75 mg PO DAILY #30 tablet 07/31/15 Methazolamide [Neptazane] 50 mg PO BID 11/26/15 Timolol 0.5% [Timoptic] 1 drop EACH EYE BID 11/26/15 Albuterol Aerosols [Ventolin 2.5 mg INHALATION Q2H PRN PRN #1 05/20/16 Aerosols] box Ensure Enlive 120 ml PO 4X/DAY #30 liquid 05/20/16 Guaifenesin [Robitussin] 10 ml PO Q6H PRN PRN #1 bottle 05/20/16 Levothyroxine [Synthroid] 100 mcg PO DAILY 01/29/18 Surgical History: cataract, hysterectomy, - - Leg tumor removed, unclear. Foot surgery, neck surgery-type unknown Psychiatric History: Attn. 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 Smoking Status: Never smoker - *Family History Maternal History Items: Hypertension Paternal History Items: Hypertension Review of Systems Constitutional: Reports: - - complete ROS negative except as documented in HPI Patient Problems: Active and Suspected Problems Stroke (Acute) - Physical Exam General: Alert HEENT: Normocephalic Neck: Supple Lungs: Normal air movement Cardiovascular: Normal S1, Normal S2 Abdomen: Bowel Sounds Present Extremities: No cyanosis Musculoskeletal: No Tenderness to Palpation of Joints or Extremities Neurological: - - consious, alert, AoAx3, CN 2-12 grossly intact, power 5/5 all 4 extremities, no sensory loss, no cerebellar signs, Reflexes + B/L B/S/T/K/A, mild expressive aphasia, NIHSS 2 at present, mRS 0 at baseline Psych/Mental Status: Normal Affect Vital Signs Temp Pulse Resp BP Pulse Ox 98.1 F 78 17 166/71 H 97 01/30/18 08:00 01/30/18 08:00 01/30/18 08:00 01/30/18 08:00 01/30/18 08:00 Oxygen Delivery Method Room Air Weight: 81.6 kg Body Mass Index (BMI) 32.7 Intake and Output for Last 24 Hours 01/28/18 01/29/18 01/30/18 23:59 23:59 23:59 Intake Total 1552 / 1552 716 / 716 Output Total 1725 / 1725 700 / 700 Balance -173 / -173 Laboratory Tests Past 24 Hrs 01/29/18 01/30/18 01/30/18 14:31 03:25 03:25 WBC 6.7 RBC 3.50 L Hgb 9.5 L Hct 30.6 L MCV 87.4 MCH 27.1 MCHC 31.0 L RDW 13.6 RDW Differential 42.1 Plt Count 150 MPV 11.6 Sodium 145 Potassium 3.8 Chloride 114 H Carbon Dioxide 22.0 Anion Gap 9 BUN 22 H Creatinine 1.70 H Estim Creat Clear Calc 20.18 Est GFR (MDRD) Af Amer 37 L Est GFR (MDRD) Non-Af 31 L BUN/Creatinine Ratio 12.9 Glucose 78 Calcium 7.7 L Troponin I < 0.015 Triglycerides 75 Cholesterol 117 LDL Cholesterol 57 VLDL Cholesterol 15 HDL Cholesterol 45 Assessment/Plan All Active Problems Stroke (Acute) CVA (cerebral vascular accident) (Acute) Cough (Acute) Shortness of breath (Acute) Cerebellar infarct (Acute) Speech apraxia (Acute) CVA (cerebral infarction) (Acute) The patient is a 83 year old AAF with PMH HTN, HLD, H/O stroke, CKD, admitted with acute onset right side weakness and aphasia. History taken from medical records and documentation. .Patient was admitted with acute onset dizziness, right sided weakness and aphasia yesterday (01/29/18) that started around 8:40 AM, NIHSS was 6 on admission, patient was a tpa candidate, received IVtpa, there has been improvement in her neurological symptoms, with NIHSS 2 this morning. Pateint at present continues to have mild aphasia. Patient denies any ERAZO, visual disturbances, focal neurological symptoms or sensory loss. Patient lives with her grandson, does not use cane or walker to ambulate, does not drive and denies any frequent falls. CT head on admission reported nothing acute, CTA head/neck did not show any hemodynamically significant stenosis or occlusion. Patient was on ASA/Plavix at home. Impression Acute Left MCA stroke-likely embolic Plan -S/P IVtpa -Post tpa protocol -Start ASA and DVT prophylaxis with heparin after 24 hrs of Ivtpa. Patient was started on Plavix prior to completion of post Ivtpa 24 hrs by hospitalist, but will hold the same. -Lipitor 40 mg PO q hs. -Permissive HTN for 24 hrs. Keep SBP < 180 mmHg -Check MRI brain w/o contrast -Recommend TTE, LDL, Hba1c -Recommend 30 day event recorder -Fall precautions -Further medical management per ICU and primary team -GI/DVT prophylaxis -PT/OT/ST -Neurology follow up in 2-3 weeks -Please call with questions if any -Thank you for allowing us to participate in patient's care and management. I spent 60 minutes of critical care time taking history, doing physical examination, reviewing medical records, coordinating care and counseling the patient and family. Code Visit Inpatient E&M: 12728 Init Hosp L3
--- NOTE | 2018-01-30 10:11 | CON.PCM_ITS ---
Problem List (1) Stroke Status: Acute Qualifiers: Precerebral and cerebral artery: middle cerebral artery Laterality of affected vessel: left Reason for Consult Date of Consultation: 01/30/18 Reason for Consultation: Stroke History of Present Illness: The patient is a 83 year old AAF with PMH HTN, HLD, H/O stroke, CKD, admitted with acute onset right side weakness and aphasia. History taken from medical records and documentation. .Patient was admitted with acute onset dizziness, right sided weakness and aphasia yesterday (01/29/18) that started around 8:40 AM , NIHSS was 6 on admission, patient was a tpa candidate, received IVtpa, there has been improvement in her neurological symptoms, with NIHSS 2 this morning. Pateint at present continues to have mild aphasia. Patient denies any ERAZO, visual disturbances, focal neurological symptoms or sensory loss. Patient lives with her grandson, does not use cane or walker to ambulate, does not drive and denies any frequent falls. CT head on admission reported nothing acute, CTA head /neck did not show any hemodynamically significant stenosis or occlusion. Patient was on ASA/Plavix at home. [] Past Medical History Past Medical History (Chronic Problems): Chronic Problems History of stroke (Chronic) Asthma (Chronic) Glaucoma (Chronic) Hypertension (Chronic) CKD (chronic kidney disease) stage 3, GFR 30-59 ml/min (Chronic) Obesity (BMI 30.0-34.9) (Chronic) Hyperlipidemia (Chronic) Allergies erythromycin base Allergy (Verified 01/29/18 09:32) Rash lisinopril Allergy (Verified 01/29/18 09:32) Unknown NSAIDS (Non-Steroidal Anti-Inflamma Allergy (Verified 01/29/18 09:32) Other Salicylates Allergy (Verified 01/29/18 09:32) Other PROTEIN IN URINE DRUG Allergy (Uncoded 01/29/18 09:32) Other Home Medications: Ambulatory Orders Medication Instructions Recorded Amlodipine Besylate 10 mg PO DAILY 12/26/14 Bimatoprost 0.01% [Lumigan 0.01%] 1 drop RIGHT EYE QHS 12/27/14 Atorvastatin Calcium [Lipitor] 20 mg PO QHS 07/20/15 Budesonide/Formoterol 160/4.5 1 puff INHALATION DAILY PRN PRN 07/20/15 [Symbicort 160/4.5 Mcg Inhaler (SP)] Ergocalciferol [Vitamin D] 50,000 unit PO QMONTH 07/20/15 Montelukast Sodium [Singulair] 10 mg PO DAILY 07/20/15 Aspirin E.C. [Ecotrin] 81 mg PO DAILY@0800 #30 tablet 07/22/15 Clopidogrel Bisulfate [Plavix] 75 mg PO DAILY #30 tablet 07/31/15 Methazolamide [Neptazane] 50 mg PO BID 11/26/15 Timolol 0.5% [Timoptic] 1 drop EACH EYE BID 11/26/15 Albuterol Aerosols [Ventolin 2.5 mg INHALATION Q2H PRN PRN #1 05/20/16 Aerosols] box Ensure Enlive 120 ml PO 4X/DAY #30 liquid 05/20/16 Guaifenesin [Robitussin] 10 ml PO Q6H PRN PRN #1 bottle 05/20/16 Levothyroxine [Synthroid] 100 mcg PO DAILY 01/29/18 Surgical History: cataract, hysterectomy, - - Leg tumor removed, unclear. Foot surgery, neck surgery-type unknown Psychiatric History: Attn. 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 Smoking Status: Never smoker - *Family History Maternal History Items: Hypertension Paternal History Items: Hypertension Review of Systems Constitutional: Reports: - - complete ROS negative except as documented in HPI Patient Problems: Active and Suspected Problems Stroke (Acute) - Physical Exam General: Alert HEENT: Normocephalic Neck: Supple Lungs: Normal air movement Cardiovascular: Normal S1, Normal S2 Abdomen: Bowel Sounds Present Extremities: No cyanosis Musculoskeletal: No Tenderness to Palpation of Joints or Extremities Neurological: - - consious, alert, AoAx3, CN 2-12 grossly intact, power 5/5 all 4 extremities, no sensory loss, no cerebellar signs, Reflexes + B/L B/S/T/K/A, mild expressive aphasia, NIHSS 2 at present, mRS 0 at baseline Psych/Mental Status: Normal Affect Vital Signs Temp Pulse Resp BP Pulse Ox 98.1 F 78 17 166/71 H 97 01/30/18 08:00 01/30/18 08:00 01/30/18 08:00 01/30/18 08:00 01/30/18 08:00 Oxygen Delivery Method Room Air Weight: 81.6 kg Body Mass Index (BMI) 32.7 Intake and Output for Last 24 Hours 01/28/18 01/29/18 01/30/18 23:59 23:59 23:59 Intake Total 1552 / 1552 716 / 716 Output Total 1725 / 1725 700 / 700 Balance -173 / -173 Laboratory Tests Past 24 Hrs 01/29/18 01/30/18 01/30/18 14:31 03:25 03:25 WBC 6.7 RBC 3.50 L Hgb 9.5 L Hct 30.6 L MCV 87.4 MCH 27.1 MCHC 31.0 L RDW 13.6 RDW Differential 42.1 Plt Count 150 MPV 11.6 Sodium 145 Potassium 3.8 Chloride 114 H Carbon Dioxide 22.0 Anion Gap 9 BUN 22 H Creatinine 1.70 H Estim Creat Clear Calc 20.18 Est GFR (MDRD) Af Amer 37 L Est GFR (MDRD) Non-Af 31 L BUN/Creatinine Ratio 12.9 Glucose 78 Calcium 7.7 L Troponin I < 0.015 Triglycerides 75 Cholesterol 117 LDL Cholesterol 57 VLDL Cholesterol 15 HDL Cholesterol 45 Assessment/Plan All Active Problems Stroke (Acute) CVA (cerebral vascular accident) (Acute) Cough (Acute) Shortness of breath (Acute) Cerebellar infarct (Acute) Speech apraxia (Acute) CVA (cerebral infarction) (Acute) The patient is a 83 year old AAF with PMH HTN, HLD, H/O stroke, CKD, admitted with acute onset right side weakness and aphasia. History taken from medical records and documentation. .Patient was admitted with acute onset dizziness, right sided weakness and aphasia yesterday (01/29/18) that started around 8:40 AM , NIHSS was 6 on admission, patient was a tpa candidate, received IVtpa, there has been improvement in her neurological symptoms, with NIHSS 2 this morning. Pateint at present continues to have mild aphasia. Patient denies any ERAZO, visual disturbances, focal neurological symptoms or sensory loss. Patient lives with her grandson, does not use cane or walker to ambulate, does not drive and denies any frequent falls. CT head on admission reported nothing acute, CTA head /neck did not show any hemodynamically significant stenosis or occlusion. Patient was on ASA/Plavix at home. Impression Acute Left MCA stroke-likely embolic Plan -S/P IVtpa -Post tpa protocol -Start ASA and DVT prophylaxis with heparin after 24 hrs of Ivtpa. Patient was started on Plavix prior to completion of post Ivtpa 24 hrs by hospitalist, but will hold the same. -Lipitor 40 mg PO q hs. -Permissive HTN for 24 hrs. Keep SBP < 180 mmHg -Check MRI brain w/o contrast -Recommend TTE, LDL, Hba1c -Recommend 30 day event recorder -Fall precautions -Further medical management per ICU and primary team -GI/DVT prophylaxis -PT/OT/ST -Neurology follow up in 2-3 weeks -Please call with questions if any -Thank you for allowing us to participate in patient's care and management. I spent 60 minutes of critical care time taking history, doing physical examination, reviewing medical records, coordinating care and counseling the patient and family. Code Visit Inpatient E&M: 89721 Init Hosp L3
--- NOTE | 2018-01-30 10:49 | NURSING ---
Pt reports numbness to L cheek, remains restful with eyes closed; woken up from sleep. No noted facial droop, extremities equal strength upper and lower. Will continue to monitor.
[2018-01-30 11:04] LABS: Hemoglobin A1c 5.1 % (4.2-6.3)
--- NOTE | 2018-01-30 12:02 | CASEMGMT ---
See assessment. SHERYL spoke w/daughter Natty and grandson Zachary, pt is out of room at present. As per daughter Natty, she is not certain how pt was doing prior to this as she lives in [place]. Pt was living alone. Natty states daughter Boston lives local and takes pt to appointments, knows more how pt has been doing day to day. Natty states concern about pt taking medication properly, and also states pt does not cook much for herself as pt is fearful will leave the stove on. SHERYL spoke w/Natty about options at discharge. Family would like family to go to rehab vs. TCU. SHERYL explained to family will see how pt does with therapy and if appropriate will start w/rehab. SHERYL explained that there is no guarantee insurance will cover, but we can try. Natty would like TCU as the second choice. SHERYL explained will check on beds in rehab and TCU, will let them know. Daughter Boston will be here after 1pm, and Natty states she is more involved with pt's medical care. SHERYL gave Natty and Zachary both this SHERYL's and SHERYL Alicea's number should Boston have any questions. SHERYL will follow up once pt has had PT/OT/ST to see what is appropriate. SHERYL did call rehab, waiting for Petty to call this SW back. SHERYL also called [facility] in TCU, put pt on the TCU list, though it is not certain when a bed will be available. SHERYL did also tell daughter if pt is doing well enough to go home from here, or if she goes elsewhere and then goes home, we can make a MOW, home health, and CCN referral--explained the CCN program. Daughter states pt had MOW at one point but discontinued it at pt thought was too expensive. Daughter states they would help pt w/cost of MOW. SW will continue to follow for appropriate discharge plan. AMANDA Reddy, ONLINE FACILITATOR
--- NOTE | 2018-01-30 15:46 | NURSING ---
Echo in progress
[2018-01-30] MEDS: Heparin Injection (Vial) 5,000 UNIT/ML VIAL 5000 UNIT SC (21:43)
[2018-01-30] MEDS: Atorvastatin Calcium 40 MG Tablet PO (21:43)
[2018-01-30] MEDS: Latanoprost 0.005% 1 Bottle 1 DRP RIGHT EYE (21:44)
[2018-01-31] VITALS (15 sets, daily range): BP systolic 150–165; BP diastolic 75–91; PULSE 74–85; RESP 14–22; TEMP 36.9–37.2; O2SAT 95–98; BMI 32.7
--- NOTE | 2018-01-31 00:26 | NURSING ---
Spoke with daughter Natty about patient's transfer via telephone
[2018-01-31] MEDS: 0.9% Normal Saline 1,000 ML 100 ML IV (03:52)
[2018-01-31] MEDS: Levothyroxine 100 MCG Tablet PO (05:31)
[2018-01-31] MEDS: Heparin Injection (Vial) 5,000 UNIT/ML VIAL 5000 UNIT SC ×3 (05:31→21:20)
[2018-01-31 06:39] LABS: Absolute Lymphocyte Count 2.29 X10^3/ul (0.83-4.51); Absolute Neutrophil Count 3.7 X10^3/uL (2.0-7.7); Basophil# 0.02 X10^3/uL; Basophil% 0.3 % (0-1); Eosinophil# 0.28 X10^3/uL; Hematocrit 32.7 % (37-47); Hemoglobin 10.1 g/dl (12.0-15.0); Lymphocyte # 2.29 X10^3/ul (4.0); Lymphocyte % 32.4 % (19-41); Mean Corp Hgb Conc 30.9 g/gl (32-36); Mean Corpuscular Hgb 26.9 pg (27.0-32.0); Monocyte# 0.73 X10^3/uL; Monocyte% 10.3 % (0-10); Neutrophil # 3.73 X10^3/uL (2.7-7.7); Neutrophil % 52.9 % (47-70); Platelet Count 155 K/mm3 (150-450); RBC Distribution Width CV 13.8 % (11.6-14.6); RBC Distribution Width SD 42.4 fl (35.1-43.9); Red Blood Count 3.76 M/mm3 (4.2-5.4); White Blood Count 7.1 K/mm3 (4.4-11.0)
[2018-01-31 06:51] LABS: POSITIVE COUNT NO; POSITIVE DIFFERENTIAL NO; POSITIVE MORPHOLOGY NO
[2018-01-31 06:52] LABS: Anion Gap 9 (5-15); BUN 23 mg/dL (7-18); BUN/Creat Ratio 12.2 RATIO (10-20); Calcium,Total 8.1 mg/dL (8.5-10.1); Chloride 118 mmol/L (98-107); Creatinine, Serum 1.89 mg/dL (0.55-1.02); EST Glomerular Filtration Rate 27 mL/min (>60); Est Glom Filt Rate - Afr Amer 33 mL/min (>60); Estimated Creatinine Clearance 18.15 ml/min; Glucose 81 mg/dL (74-106); Potassium 3.9 mmol/L (3.5-5.1); Sodium Level 148 mmol/L (136-145)
--- NOTE | 2018-01-31 08:21 | PCM.PROGNOTE ---
Patient Problems: Active and Suspected Problems Stroke (Acute) Subjective: The patient was seen and examined at the bedside this morning. Events from the last 24 hours have been reviewed. The patient is currently afebrile, hemodynamically stable and maintaining appropriate oxygen saturations on room air. The patient is currently sitting in her bedside recliner without any significant complaints. Objective: The patient's most recent lab work, culture data and imaging studies have all been personally reviewed. MRI brain completed January 30 revealed evidence of a subacute cortical based ischemic infarction along with an old cortical based cystic infarct of the right posterior lingual gyrus and chronic periventricular white matter ischemic changes. Surface echocardiogram revealed stage I diastolic dysfunction with an ejection fraction of 60%. - Physical Exam General: Alert, Oriented x3, Cooperative, No apparent distress HEENT: Atraumatic, PERRLA, Normocephalic Oral: No Gingival or Mucosal Lesions/ Ulcerations Neck: Supple, No Nodes, Trachea Midline Lungs: Normal air movement, No rhonchi, No wheeze, No rales Cardiovascular: Regular rate, Regular Rhythm, Normal S1, Normal S2, No murmurs Abdomen: Bowel Sounds Present, Soft, Non Tender Extremities: No clubbing, No cyanosis, No edema Skin: No breakdown Musculoskeletal: No Tenderness to Palpation of Joints or Extremities Lymphatic: No Cervical, Supraclavicular, or Inguinal Adenopathy Neurological: Cranial nerves II-XII grossly intact, Neuro grossly intact Psych/Mental Status: Normal Affect, Appropriate Vital Signs Temp Pulse Resp BP Pulse Ox 98.7 F 76 14 165/91 H 95 01/31/18 03:55 01/31/18 07:30 01/31/18 03:55 01/31/18 03:55 01/31/18 03:55 Oxygen Delivery Method Room Air Weight: 180 lb 15.992 oz Body Mass Index (BMI) 32.7 Intake and Output for Last 24 Hours 01/29/18 01/30/18 01/31/18 23:59 23:59 23:59 Intake Total 1552 / 1552 2915 / 2915 789 / 789 Output Total 1725 / 1725 1850 / 1850 Balance -173 / -173 1065 / 1065 789 / 789 Laboratory Tests Past 24 Hrs 01/30/18 01/31/18 01/31/18 03:25 05:35 05:35 WBC 7.1 RBC 3.76 L Hgb 10.1 L Hct 32.7 L MCV 87.0 MCH 26.9 L MCHC 30.9 L RDW 13.8 RDW Differential 42.4 Plt Count 155 MPV 12.0 Immature Gran % (Auto) 0.100 Neut % (Auto) 52.9 Lymph % (Auto) 32.4 Dunn % (Auto) 10.3 H Eos % (Auto) 4.0 Baso % (Auto) 0.3 Absolute Neuts (auto) 3.7 Absolute Lymphs (auto) 2.29 Total Counted Not Reportable Sodium 148 H Potassium 3.9 Chloride 118 H Carbon Dioxide 21.0 Anion Gap 9 BUN 23 H Creatinine 1.89 H Estim Creat Clear Calc 18.15 Est GFR (MDRD) Af Amer 33 L Est GFR (MDRD) Non-Af 27 L BUN/Creatinine Ratio 12.2 Glucose 81 Hemoglobin A1c 5.1 Calcium 8.1 L Clinical Impression(s) from Imaging Studies Brain CT 01/29/18 09:20 IMPRESSION: No definitive evidence of acute hemorrhage infarct or edema. Evidence of old infarct right occipital lobe. Moderate ethmoid and frontal sinusitis. N.B. : The above information has been verbally conveyed by Sanjuanita Stallworth MD to Daniel Castano, Referring Physician, on 01/29/2018 09:41:45 (ET). Electronically Signed: Sanjuanita Stallworth MD at 9:42 EDT Tel , Service support , Chest X-Ray 01/29/18 09:20 IMPRESSION: Persistent right lower lobe mass. Cardiomegaly. Tortuous aorta. No definitive focal infiltrate. Electronically Signed: Sanjuanita Stallworth MD at 9:53 EDT Tel , Service support , Head CTA 01/29/18 09:54 IMPRESSION: Normal [place] without a demonstrated aneurysm or hemodynamically significant stenosis. Electronically Signed: Sanjuanita Stallworth MD at 10:57 EDT Tel , Service support , Neck CTA 01/29/18 09:54 IMPRESSION: Trace calcification of the tortuous medially right side carotid bulb. Both of the carotid bulbs are seen posterior to the level of the epiglottis anterior to the level of C3-C4. No evidence of significant stenosis. Degenerative change of the thoracolumbar spine. Bovine arch with a common takeoff of the bilateral carotid arteries. Electronically Signed: Sanjuanita Stallworth MD at 11:02 EDT Tel , Service support , Brain MRI 01/30/18 08:37 IMPRESSION: 1. Subacute cortical based ischemic infarct involving the left temporal lobe and a portion of the left insular cortex. 2. Old cortical based a cystic infarct with focal atrophy in the right posterior lingual gyrus. 3. Chronic periventricular white matter ischemic changes in both cerebral hemispheres. Electronically Signed: Jey Rollins MD at 13:04 EDT , Service support , Medical Necessity - Tobacco Use Smoking Status: Never smoker Assessment/Plan All Active Problems Stroke (Acute) CVA (cerebral vascular accident) (Acute) Cough (Acute) Shortness of breath (Acute) Cerebellar infarct (Acute) Speech apraxia (Acute) CVA (cerebral infarction) (Acute) RECOMMENDATIONS: 1. Continue medical management per neurology recommendations. 2. PT OT to work with patient. 3. Initiate dual antiplatelet therapy. 4. Will defer antihypertensive regimen to hospitalist. IMPRESSIONS: 1. Acute ischemic CVA status post TPA Clinically improved. Continue medical management with aspirin and Plavix along with statin. Antihypertensive medication regimen per hospitalist. PT/OT to work with patient. 2. Acute on chronic kidney disease Likely prerenal in etiology, as creatinine has improved with volume expansion. Continue to monitor urine output. No indication for renal replacement therapy at this time. 3. Right lower lobe lung mass noted on chest imaging This is a chronic issue and has been followed by the patient's primary care provider. She recently (October 2016) had a negative PET scan. 4. Baseline hypertension/hypothyroidism/asthma Complicates care, management, recovery and prognosis. This note was generated with Dragon dictation software. It may contain incorrect words, spelling, and punctuation that were not noted in checking the note before signing. DISPOSITION: Given the lack of ongoing ICU needs, will sign off. Please call with any additional questions. Code Visit Inpatient E&M: 96200 Subs Hosp L2
--- NOTE | 2018-01-31 08:24 | PN_ITS ---
Patient Problems: Active and Suspected Problems Stroke (Acute) Subjective: The patient was seen and examined at the bedside this morning. Events from the last 24 hours have been reviewed. The patient is currently afebrile, hemodynamically stable and maintaining appropriate oxygen saturations on room air. The patient is currently sitting in her bedside recliner without any significant complaints. Objective: The patient's most recent lab work, culture data and imaging studies have all been personally reviewed. MRI brain completed January 30 revealed evidence of a subacute cortical based ischemic infarction along with an old cortical based cystic infarct of the right posterior lingual gyrus and chronic periventricular white matter ischemic changes. Surface echocardiogram revealed stage I diastolic dysfunction with an ejection fraction of 60%. - Physical Exam General: Alert, Oriented x3, Cooperative, No apparent distress HEENT: Atraumatic, PERRLA, Normocephalic Oral: No Gingival or Mucosal Lesions/ Ulcerations Neck: Supple, No Nodes, Trachea Midline Lungs: Normal air movement, No rhonchi, No wheeze, No rales Cardiovascular: Regular rate, Regular Rhythm, Normal S1, Normal S2, No murmurs Abdomen: Bowel Sounds Present, Soft, Non Tender Extremities: No clubbing, No cyanosis, No edema Skin: No breakdown Musculoskeletal: No Tenderness to Palpation of Joints or Extremities Lymphatic: No Cervical, Supraclavicular, or Inguinal Adenopathy Neurological: Cranial nerves II-XII grossly intact, Neuro grossly intact Psych/Mental Status: Normal Affect, Appropriate Vital Signs Temp Pulse Resp BP Pulse Ox 98.7 F 76 14 165/91 H 95 01/31/18 03:55 01/31/18 07:30 01/31/18 03:55 01/31/18 03:55 01/31/18 03:55 Oxygen Delivery Method Room Air Weight: 180 lb 15.992 oz Body Mass Index (BMI) 32.7 Intake and Output for Last 24 Hours 01/29/18 01/30/18 01/31/18 23:59 23:59 23:59 Intake Total 1552 / 1552 2915 / 2915 789 / 789 Output Total 1725 / 1725 1850 / 1850 Balance -173 / -173 1065 / 1065 789 / 789 Laboratory Tests Past 24 Hrs 01/30/18 01/31/18 01/31/18 03:25 05:35 05:35 WBC 7.1 RBC 3.76 L Hgb 10.1 L Hct 32.7 L MCV 87.0 MCH 26.9 L MCHC 30.9 L RDW 13.8 RDW Differential 42.4 Plt Count 155 MPV 12.0 Immature Gran % (Auto) 0.100 Neut % (Auto) 52.9 Lymph % (Auto) 32.4 [place] % (Auto) 10.3 H Eos % (Auto) 4.0 Baso % (Auto) 0.3 Absolute Neuts (auto) 3.7 Absolute Lymphs (auto) 2.29 Total Counted Not Reportable Sodium 148 H Potassium 3.9 Chloride 118 H Carbon Dioxide 21.0 Anion Gap 9 BUN 23 H Creatinine 1.89 H Estim Creat Clear Calc 18.15 Est GFR (MDRD) Af Amer 33 L Est GFR (MDRD) Non-Af 27 L BUN/Creatinine Ratio 12.2 Glucose 81 Hemoglobin A1c 5.1 Calcium 8.1 L Clinical Impression(s) from Imaging Studies Brain CT 01/29/18 09:20 IMPRESSION: No definitive evidence of acute hemorrhage infarct or edema. Evidence of old infarct right occipital lobe. Moderate ethmoid and frontal sinusitis. N.B. : The above information has been verbally conveyed by Sanjuanita Stallworth MD to Daniel Castano, Referring Physician, on 01/29/2018 09:41:45 (ET). Electronically Signed: Sanjuanita Stallworth MD at 9:42 EDT Tel , Service support , Chest X-Ray 01/29/18 09:20 IMPRESSION: Persistent right lower lobe mass. Cardiomegaly. Tortuous aorta. No definitive focal infiltrate. Electronically Signed: Sanjuanita Stallworth MD at 9:53 EDT Tel , Service support , Head CTA 01/29/18 09:54 IMPRESSION: Normal [place] without a demonstrated aneurysm or hemodynamically significant stenosis. Electronically Signed: Sanjuanita Stallworth MD at 10:57 EDT Tel , Service support , Neck CTA 01/29/18 09:54 IMPRESSION: Trace calcification of the tortuous medially right side carotid bulb. Both of the carotid bulbs are seen posterior to the level of the epiglottis anterior to the level of C3-C4. No evidence of significant stenosis. Degenerative change of the thoracolumbar spine. Bovine arch with a common takeoff of the bilateral carotid arteries. Electronically Signed: Sanjuanita Stallworth MD at 11:02 EDT Tel , Service support , Brain MRI 01/30/18 08:37 IMPRESSION: 1. Subacute cortical based ischemic infarct involving the left temporal lobe and a portion of the left insular cortex. 2. Old cortical based a cystic infarct with focal atrophy in the right posterior lingual gyrus. 3. Chronic periventricular white matter ischemic changes in both cerebral hemispheres. Electronically Signed: Jey Rollins MD at 13:04 EDT , Service support , Medical Necessity - Tobacco Use Smoking Status: Never smoker Assessment/Plan All Active Problems Stroke (Acute) CVA (cerebral vascular accident) (Acute) Cough (Acute) Shortness of breath (Acute) Cerebellar infarct (Acute) Speech apraxia (Acute) CVA (cerebral infarction) (Acute) RECOMMENDATIONS: 1. Continue medical management per neurology recommendations. 2. PT OT to work with patient. 3. Initiate dual antiplatelet therapy. 4. Will defer antihypertensive regimen to hospitalist. IMPRESSIONS: 1. Acute ischemic CVA status post TPA Clinically improved. Continue medical management with aspirin and Plavix along with statin. Antihypertensive medication regimen per hospitalist. PT/OT to work with patient. 2. Acute on chronic kidney disease Likely prerenal in etiology, as creatinine has improved with volume expansion. Continue to monitor urine output. No indication for renal replacement therapy at this time. 3. Right lower lobe lung mass noted on chest imaging This is a chronic issue and has been followed by the patient's primary care provider. She recently (October 2016) had a negative PET scan. 4. Baseline hypertension/hypothyroidism/asthma Complicates care, management, recovery and prognosis. This note was generated with Dragon dictation software. It may contain incorrect words, spelling, and punctuation that were not noted in checking the note before signing. DISPOSITION: Given the lack of ongoing ICU needs, will sign off. Please call with any additional questions. Code Visit Inpatient E&M: 29833 Subs Hosp L2
[2018-01-31] MEDS: Montelukast 10 MG Tablet PO (08:37)
[2018-01-31] MEDS: Famotidine 20 MG Tablet PO (08:38)
[2018-01-31] MEDS: Timolol 0.5% 5ML OPTH.BTL 1 DRP EACH EYE ×2 (08:38→21:20)
[2018-01-31] MEDS: Aspirin 81 MG TAB.CHEW PO (08:39)
--- NOTE | 2018-01-31 11:01 | PCM.PN.NEU ---
Patient Problems: Active and Suspected Problems Stroke (Acute) Subjective: No Issues overnight. Denies any focal weakness. Aphasia better than yesterday. is able to repeat today. - Physical Exam General: Alert HEENT: Normocephalic Neck: Supple Lungs: Normal air movement Cardiovascular: Normal S1, Normal S2 Abdomen: Bowel Sounds Present Extremities: No cyanosis Musculoskeletal: No Tenderness to Palpation of Joints or Extremities Neurological: - - consious, alert, AoAx3, CN 2-12 grossly intact, power 5/5 all 4 extremities, no sensory loss, no cerebellar signs, Reflexes + B/L B/S/T/K/A, very mild expressive aphasia, NIHSS 1 at present, mRS 0 at baseline Psych/Mental Status: Normal Affect Vital Signs Temp Pulse Resp BP Pulse Ox 99.0 F 78 18 156/88 H 97 01/31/18 08:30 01/31/18 08:30 01/31/18 08:30 01/31/18 08:30 01/31/18 08:30 Oxygen Delivery Method Room Air Weight: 82.1 kg Body Mass Index (BMI) 32.7 Intake and Output for Last 24 Hours 01/29/18 01/30/18 01/31/18 23:59 23:59 23:59 Intake Total 1552 / 1552 2915 / 2915 789 / 789 Output Total 1725 / 1725 1850 / 1850 Balance -173 / -173 1065 / 1065 789 / 789 Laboratory Tests Past 24 Hrs 01/30/18 01/31/18 01/31/18 03:25 05:35 05:35 WBC 7.1 RBC 3.76 L Hgb 10.1 L Hct 32.7 L MCV 87.0 MCH 26.9 L MCHC 30.9 L RDW 13.8 RDW Differential 42.4 Plt Count 155 MPV 12.0 Immature Gran % (Auto) 0.100 Neut % (Auto) 52.9 Lymph % (Auto) 32.4 [place] % (Auto) 10.3 H Eos % (Auto) 4.0 Baso % (Auto) 0.3 Absolute Neuts (auto) 3.7 Absolute Lymphs (auto) 2.29 Total Counted Not Reportable Sodium 148 H Potassium 3.9 Chloride 118 H Carbon Dioxide 21.0 Anion Gap 9 BUN 23 H Creatinine 1.89 H Estim Creat Clear Calc 18.15 Est GFR (MDRD) Af Amer 33 L Est GFR (MDRD) Non-Af 27 L BUN/Creatinine Ratio 12.2 Glucose 81 Hemoglobin A1c 5.1 Calcium 8.1 L Medical Necessity - Tobacco Use Smoking Status: Never smoker Tobacco Use: Non-smoker Assessment/Plan All Active Problems Stroke (Acute) CVA (cerebral vascular accident) (Acute) Cough (Acute) Shortness of breath (Acute) Cerebellar infarct (Acute) Speech apraxia (Acute) CVA (cerebral infarction) (Acute) The patient is a 83 year old AAF with PMH HTN, HLD, H/O stroke, CKD, admitted with acute onset right side weakness and aphasia. History taken from medical records and documentation. .Patient was admitted with acute onset dizziness, right sided weakness and aphasia yesterday (01/29/18) that started around 8:40 AM, NIHSS was 6 on admission, patient was a tpa candidate, received IVtpa, there has been improvement in her neurological symptoms, with NIHSS 2 this morning. Pateint at present continues to have mild aphasia. Patient denies any ERAZO, visual disturbances, focal neurological symptoms or sensory loss. Patient lives with her grandson, does not use cane or walker to ambulate, does not drive and denies any frequent falls. CT head on admission reported nothing acute, CTA head/neck did not show any hemodynamically significant stenosis or occlusion. Patient was on ASA/Plavix at home. Impression Acute Left MCA stroke-likely embolic Plan -ASA 81 mg PO once daily, Plavix 75 mg PO once daily. On Dual Ap at baseline. Bleeding risk discussed. -Lipitor 40 mg PO q hs. -CTA head/neck did not show any hemodynamically significant stenosis or occlusion. -MRI brain w/o contrast- acute/subacute left temporal/left insular cortex infarct moderate to large -TTE-EF 60%, normal LA size, LDL-57, Ehm8l-5.1 -Recommend 30 day event recorder -ferry terminal agent Goal BP < 130/80 mmHg and goal Hba1c < 7% -Fall precautions -Further medical management per primary team -GI/DVT prophylaxis -PT/OT/ST -Neurology follow up in 2-3 weeks -Please call with questions if any -Thank you for allowing us to participate in patient's care and management. I spent 30 minutes of critical care time taking history, doing physical examination, reviewing medical records, coordinating care and counseling the patient and daughter.
--- NOTE | 2018-01-31 11:45 | CASEMGMT ---
Physician told SHERYL that patient now wants to go home. SHERYL spoke with patient, and her daughter Natty and confirmed the plan is TCU. SHERYL explained we have to wait on insurance to approve and SHERYL anticipates . Plan: [facility] pending insurance approval. Deanne GONZALES
[2018-01-31] MEDS: Albuterol 2.5 MG/3 ML VIAL.NEB. INHALATION ×2 (11:49→13:51)
--- NOTE | 2018-01-31 12:12 | PCM.PN.HOSP ---
Patient Problems: Active and Suspected Problems Stroke (Acute) Subjective: Seen and examined. She has no complaints and felt well. She denied any fever or chills, any weakness, any shortness of breath, any diarrhea vomiting, any chest pain. 12 point review of systems otherwise negative. Labs and vitals reviewed. Vitals/I&O's: Vital Signs Temp Pulse Resp BP Pulse Ox 99.0 F 80 19 H 156/88 H 98 01/31/18 08:30 01/31/18 11:49 01/31/18 11:49 01/31/18 08:30 01/31/18 11:38 Oxygen Delivery Method Room Air Weight: 180 lb 15.992 oz Body Mass Index (BMI) 32.7 Intake and Output for Last 24 Hours 01/29/18 01/30/18 01/31/18 23:59 23:59 23:59 Intake Total 1552 / 1552 2915 / 2915 1389 / 1389 Output Total 1725 / 1725 1850 / 1850 Balance -173 / -173 1065 / 1065 1389 / 1389 General: Alert, Oriented x3, Cooperative, No apparent distress HEENT: Atraumatic, PERRLA, EOMI, Normocephalic Oral: Moist Mucosa Neck: Supple, No JVD, Negative Carotid Bruits Lungs: Clear to auscultation, Normal air movement, No rhonchi, No wheeze, No rales Cardiovascular: Regular rate, Regular Rhythm, Normal S1, Normal S2, No murmurs Abdomen: Bowel Sounds Present, Soft, Non Tender, Non-Distended, No Hepato-splenomegaly Extremities: No clubbing, No cyanosis, No edema, Capillary Refill Less than 3 Seconds Skin: No rashes, No breakdown Musculoskeletal: No Tenderness to Palpation of Joints or Extremities Lymphatic: No Cervical, Supraclavicular, or Inguinal Adenopathy Neurological: Cranial nerves II-XII grossly intact, Neuro grossly intact, Motor Exam 5/5 strength throughout Psych/Mental Status: Normal Affect, Appropriate, Alert and oriented to time, place, person, mood and affect Laboratory Results 01/31/18 05:35: WBC 7.1, RBC 3.76 L, Hgb 10.1 L, Hct 32.7 L, MCV 87.0, MCH 26.9 L, MCHC 30.9 L, RDW 13.8, RDW Differential 42.4, Plt Count 155, MPV 12.0, Immature Gran % (Auto) 0.100, Neut % (Auto) 52.9, Lymph % (Auto) 32.4, [place] % (Auto) 10.3 H, Eos % (Auto) 4.0, Baso % (Auto) 0.3, Absolute Neuts (auto) 3.7, Absolute Lymphs (auto) 2.29, Total Counted Not Reportable 01/31/18 05:35: Sodium 148 H, Potassium 3.9, Chloride 118 H, Carbon Dioxide 21.0, Anion Gap 9, BUN 23 H, Creatinine 1.89 H, Estim Creat Clear Calc 18.15, Est GFR (MDRD) Af Amer 33 L, Est GFR (MDRD) Non-Af 27 L, BUN/Creatinine Ratio 12.2, Glucose 81, Calcium 8.1 L Diagnostic Data Brain CT 01/29/18 09:20 IMPRESSION: No definitive evidence of acute hemorrhage infarct or edema. Evidence of old infarct right occipital lobe. Moderate ethmoid and frontal sinusitis. N.B. : The above information has been verbally conveyed by Sanjuanita Stallworth MD to Daniel Castano, Referring Physician, on 01/29/2018 09:41:45 (ET). Electronically Signed: Sanjuanita Stallworth MD at 9:42 EDT Tel , Service support , Chest X-Ray 01/29/18 09:20 IMPRESSION: Persistent right lower lobe mass. Cardiomegaly. Tortuous aorta. No definitive focal infiltrate. Electronically Signed: Sanjuanita Stallworth MD at 9:53 EDT Tel , Service support , Head CTA 01/29/18 09:54 IMPRESSION: Normal [place] without a demonstrated aneurysm or hemodynamically significant stenosis. Electronically Signed: Sanjuanita Stallworth MD at 10:57 EDT Tel , Service support , Neck CTA 01/29/18 09:54 IMPRESSION: Trace calcification of the tortuous medially right side carotid bulb. Both of the carotid bulbs are seen posterior to the level of the epiglottis anterior to the level of C3-C4. No evidence of significant stenosis. Degenerative change of the thoracolumbar spine. Bovine arch with a common takeoff of the bilateral carotid arteries. Electronically Signed: Sanjuanita Stallworth MD at 11:02 EDT Tel , Service support , Brain MRI 01/30/18 08:37 IMPRESSION: 1. Subacute cortical based ischemic infarct involving the left temporal lobe and a portion of the left insular cortex. 2. Old cortical based a cystic infarct with focal atrophy in the right posterior lingual gyrus. 3. Chronic periventricular white matter ischemic changes in both cerebral hemispheres. Electronically Signed: Jey Rollins MD at 13:04 EDT , Service support , Current Medications Albuterol Sulfate (Ventolin Aerosols) 2.5 mg INHALATION Q2H PRN PRN PRN Reason: DYSPNEA, WHEEZING Last Admin: 01/31/18 11:49 Dose: 2.5 mg Aspirin (Aspirin, Baby) 81 mg PO DAILY@0800 [facility] Last Admin: 01/31/18 08:39 Dose: 81 mg Atorvastatin Calcium (Lipitor) 40 mg PO QHS [facility] Last Admin: 01/30/18 21:43 Dose: 40 mg Bisacodyl (Dulcolax) 5 mg PO DAILY PRN PRN PRN Reason: Constipation Ergocalciferol (Vitamin D) 50,000 unit PO QMONTH [facility] Famotidine (Pepcid) 20 mg PO DAILY [facility] Last Admin: 01/31/18 08:38 Dose: 20 mg Guaifenesin (Robitussin) 10 ml PO Q6H PRN PRN PRN Reason: COUGH Heparin Sodium (Porcine) (Heparin Na) 5,000 unit SC Q8 [facility] Last Admin: 01/31/18 05:31 Dose: 5,000 unit Sodium Chloride () 1,000 mls @ 100 mls/hr IV .Q10H [facility] Last Admin: 01/31/18 03:52 Dose: 100 mls/hr Labetalol HCl (Trandate) 10 mg IV Q4H PRN PRN PRN Reason: SBP>185 Latanoprost (Xalatan Opthalmic) 1 drop RIGHT EYE QHS [facility] Last Admin: 01/30/18 21:44 Dose: 1 drop Levothyroxine Sodium (Synthroid) 100 mcg PO DAILY@0600 [facility] Last Admin: 01/31/18 05:31 Dose: 100 mcg Magnesium Hydroxide (Milk Of Magnesia) 30 ml PO DAILY PRN PRN PRN Reason: Constipation Montelukast Sodium (Singulair) 10 mg PO DAILY [facility] Last Admin: 01/31/18 08:37 Dose: 10 mg Non-Formulary Medication (Methazolamide [Neptazane]) 50 mg PO BID [facility] Last Admin: 01/31/18 08:38 Dose: 50 mg Nutritional Formula (Lactose Free) (Ensure Enlive) 120 ml PO 4X/DAY [facility] Last Admin: 01/31/18 08:34 Dose: Not Given Sodium Chloride () 5 - 30 ml IV UD PRN PRN Reason: SALINE FLUSH Timolol Maleate (Timoptic) 1 drop EACH EYE BID [facility] Last Admin: 01/31/18 08:38 Dose: 1 drop Medical Necessity - Tobacco Use Smoking Status: Never smoker Tobacco Use: Non-smoker Assessment/Plan All Active Problems Stroke (Acute) CVA (cerebral vascular accident) (Acute) Cough (Acute) Shortness of breath (Acute) Cerebellar infarct (Acute) Speech apraxia (Acute) CVA (cerebral infarction) (Acute) 1. Acute ischemic stroke s/p TPA has no complaints. weakness and aphasia have resolved. on plavix 75mg daily. Will start aspirin 81mg daily today A1C is 5.1 on atorvastatin 40mg daily. 2. Hypernatremia: Na is 148 today. Likely due to IVF administration. WIll stop IVF and monitor. 2. CKD stage IV CR 1.89 today. We will stop IV fluids due to hyponatremia and monitor. 3.Hypertension BP is 150s today on labetalol prn. 4. Hypothyroidism: on synthroid 5. DVT prophylaxis: SCDs Disposition: Awaiting discharge to rehab facility. This note was generated with Si TVation software. It may contain incorrect words, spelling, and punctuation that were not noted in checking the note before signing. Code Visit Inpatient E&M: 45133 Subs Hosp L2
--- NOTE | 2018-01-31 12:16 | PN_ITS ---
Patient Problems: Active and Suspected Problems Stroke (Acute) Subjective: Seen and examined. She has no complaints and felt well. She denied any fever or chills, any weakness, any shortness of breath, any diarrhea vomiting, any chest pain. 12 point review of systems otherwise negative. Labs and vitals reviewed. Vitals/I&O's: Vital Signs Temp Pulse Resp BP Pulse Ox 99.0 F 80 19 H 156/88 H 98 01/31/18 08:30 01/31/18 11:49 01/31/18 11:49 01/31/18 08:30 01/31/18 11:38 Oxygen Delivery Method Room Air Weight: 180 lb 15.992 oz Body Mass Index (BMI) 32.7 Intake and Output for Last 24 Hours 01/29/18 01/30/18 01/31/18 23:59 23:59 23:59 Intake Total 1552 / 1552 2915 / 2915 1389 / 1389 Output Total 1725 / 1725 1850 / 1850 Balance -173 / -173 1065 / 1065 1389 / 1389 General: Alert, Oriented x3, Cooperative, No apparent distress HEENT: Atraumatic, PERRLA, EOMI, Normocephalic Oral: Moist Mucosa Neck: Supple, No JVD, Negative Carotid Bruits Lungs: Clear to auscultation, Normal air movement, No rhonchi, No wheeze, No rales Cardiovascular: Regular rate, Regular Rhythm, Normal S1, Normal S2, No murmurs Abdomen: Bowel Sounds Present, Soft, Non Tender, Non-Distended, No Hepato- splenomegaly Extremities: No clubbing, No cyanosis, No edema, Capillary Refill Less than 3 Seconds Skin: No rashes, No breakdown Musculoskeletal: No Tenderness to Palpation of Joints or Extremities Lymphatic: No Cervical, Supraclavicular, or Inguinal Adenopathy Neurological: Cranial nerves II-XII grossly intact, Neuro grossly intact, Motor Exam 5/5 strength throughout Psych/Mental Status: Normal Affect, Appropriate, Alert and oriented to time, place, person, mood and affect Laboratory Results 01/31/18 05:35: WBC 7.1, RBC 3.76 L, Hgb 10.1 L, Hct 32.7 L, MCV 87.0, MCH 26.9 L, MCHC 30.9 L, RDW 13.8, RDW Differential 42.4, Plt Count 155, MPV 12.0, Immature Gran % (Auto) 0.100, Neut % (Auto) 52.9, Lymph % (Auto) 32.4, [place] % ( Auto) 10.3 H, Eos % (Auto) 4.0, Baso % (Auto) 0.3, Absolute Neuts (auto) 3.7, Absolute Lymphs (auto) 2.29, Total Counted Not Reportable 01/31/18 05:35: Sodium 148 H, Potassium 3.9, Chloride 118 H, Carbon Dioxide 21.0 , Anion Gap 9, BUN 23 H, Creatinine 1.89 H, Estim Creat Clear Calc 18.15, Est GFR (MDRD) Af Amer 33 L, Est GFR (MDRD) Non-Af 27 L, BUN/Creatinine Ratio 12.2, Glucose 81, Calcium 8.1 L Diagnostic Data Brain CT 01/29/18 09:20 IMPRESSION: No definitive evidence of acute hemorrhage infarct or edema. Evidence of old infarct right occipital lobe. Moderate ethmoid and frontal sinusitis. N.B. : The above information has been verbally conveyed by Sanjuanita Stallworth MD to Daniel Castano, Referring Physician, on 01/29/2018 09:41:45 (ET). Electronically Signed: Sanjuanita Stallworth MD at 9:42 EDT Tel , Service support , Chest X-Ray 01/29/18 09:20 IMPRESSION: Persistent right lower lobe mass. Cardiomegaly. Tortuous aorta. No definitive focal infiltrate. Electronically Signed: Sanjuanita Stallworth MD at 9:53 EDT Tel , Service support , Head CTA 01/29/18 09:54 IMPRESSION: Normal jena of [place] without a demonstrated aneurysm or hemodynamically significant stenosis. Electronically Signed: Sanjuanita Stallworth MD at 10:57 EDT Tel , Service support , Neck CTA 01/29/18 09:54 IMPRESSION: Trace calcification of the tortuous medially right side carotid bulb. Both of the carotid bulbs are seen posterior to the level of the epiglottis anterior to the level of C3-C4. No evidence of significant stenosis. Degenerative change of the thoracolumbar spine. Bovine arch with a common takeoff of the bilateral carotid arteries. Electronically Signed: Sanjuanita Stallworth MD at 11:02 EDT Tel , Service support , Brain MRI 01/30/18 08:37 IMPRESSION: 1. Subacute cortical based ischemic infarct involving the left temporal lobe and a portion of the left insular cortex. 2. Old cortical based a cystic infarct with focal atrophy in the right posterior lingual gyrus. 3. Chronic periventricular white matter ischemic changes in both cerebral hemispheres. Electronically Signed: Jey Rollins MD at 13:04 EDT , Service support , Current Medications Albuterol Sulfate (Ventolin Aerosols) 2.5 mg INHALATION Q2H PRN PRN PRN Reason: DYSPNEA, WHEEZING Last Admin: 01/31/18 11:49 Dose: 2.5 mg Aspirin (Aspirin, Baby) 81 mg PO DAILY@0800 [facility] Last Admin: 01/31/18 08:39 Dose: 81 mg Atorvastatin Calcium (Lipitor) 40 mg PO QHS [facility] Last Admin: 01/30/18 21:43 Dose: 40 mg Bisacodyl (Dulcolax) 5 mg PO DAILY PRN PRN PRN Reason: Constipation Ergocalciferol (Vitamin D) 50,000 unit PO QMONTH [facility] Famotidine (Pepcid) 20 mg PO DAILY [facility] Last Admin: 01/31/18 08:38 Dose: 20 mg Guaifenesin (Robitussin) 10 ml PO Q6H PRN PRN PRN Reason: COUGH Heparin Sodium (Porcine) (Heparin Na) 5,000 unit SC Q8 [facility] Last Admin: 01/31/18 05:31 Dose: 5,000 unit Sodium Chloride () 1,000 mls @ 100 mls/hr IV .Q10H [facility] Last Admin: 01/31/18 03:52 Dose: 100 mls/hr Labetalol HCl (Trandate) 10 mg IV Q4H PRN PRN PRN Reason: SBP>185 Latanoprost (Xalatan Opthalmic) 1 drop RIGHT EYE QHS [facility] Last Admin: 01/30/18 21:44 Dose: 1 drop Levothyroxine Sodium (Synthroid) 100 mcg PO DAILY@0600 [facility] Last Admin: 01/31/18 05:31 Dose: 100 mcg Magnesium Hydroxide (Milk Of Magnesia) 30 ml PO DAILY PRN PRN PRN Reason: Constipation Montelukast Sodium (Singulair) 10 mg PO DAILY [facility] Last Admin: 01/31/18 08:37 Dose: 10 mg Non-Formulary Medication (Methazolamide [Neptazane]) 50 mg PO BID [facility] Last Admin: 01/31/18 08:38 Dose: 50 mg Nutritional Formula (Lactose Free) (Ensure Enlive) 120 ml PO 4X/DAY [facility] Last Admin: 01/31/18 08:34 Dose: Not Given Sodium Chloride () 5 - 30 ml IV UD PRN PRN Reason: SALINE FLUSH Timolol Maleate (Timoptic) 1 drop EACH EYE BID [facility] Last Admin: 01/31/18 08:38 Dose: 1 drop Medical Necessity - Tobacco Use Smoking Status: Never smoker Tobacco Use: Non-smoker Assessment/Plan All Active Problems Stroke (Acute) CVA (cerebral vascular accident) (Acute) Cough (Acute) Shortness of breath (Acute) Cerebellar infarct (Acute) Speech apraxia (Acute) CVA (cerebral infarction) (Acute) 1. Acute ischemic stroke * s/p TPA * has no complaints. weakness and aphasia have resolved. * on plavix 75mg daily. Will start aspirin 81mg daily today * A1C is 5.1 * on atorvastatin 40mg daily. * 2. Hypernatremia: Na is 148 today. Likely due to IVF administration. WIll stop IVF and monitor. 2. CKD stage IV * CR 1.89 today. * We will stop IV fluids due to hyponatremia and monitor. * 3.Hypertension * BP is 150s today * on labetalol prn. * 4. Hypothyroidism: on synthroid 5. DVT prophylaxis: SCDs Disposition: Awaiting discharge to rehab facility. This note was generated with [employer] software. It may contain incorrect words, spelling, and punctuation that were not noted in checking the note before signing. Code Visit Inpatient E&M: 03376 Subs Hosp L2
[2018-01-31] MEDS: Latanoprost 0.005% 1 Bottle 1 DRP RIGHT EYE (21:20)
[2018-01-31] MEDS: Atorvastatin Calcium 40 MG Tablet PO (21:20)
[2018-01-31] MEDS: 0.9% NaCl Peripheral Flush Adult/Peds IV (21:21)
[2018-02-01] VITALS (12 sets, daily range): BP systolic 154–182; BP diastolic 75–88; PULSE 69–83; RESP 14–18; TEMP 36.7–37.3; O2SAT 96–98; BMI 32.7
[2018-02-01] MEDS: Heparin Injection (Vial) 5,000 UNIT/ML VIAL 5000 UNIT SC ×3 (05:25→22:24)
[2018-02-01] MEDS: Levothyroxine 100 MCG Tablet PO (05:25)
[2018-02-01 06:20] LABS: Absolute Lymphocyte Count 2.25 X10^3/ul (0.83-4.51); Absolute Neutrophil Count 2.6 X10^3/uL (2.0-7.7); Basophil# 0.04 X10^3/uL; Basophil% 0.7 % (0-1); Eosinophil# 0.31 X10^3/uL; Eosinophils% 5.3 % (0-5); Hematocrit 31.4 % (37-47); Hemoglobin 9.3 g/dl (12.0-15.0); Lymphocyte # 2.25 X10^3/ul (4.0); Lymphocyte % 38.3 % (19-41); Mean Corp Hgb Conc 29.6 g/gl (32-36); Mean Corpuscular Hgb 25.9 pg (27.0-32.0); Mean Corpuscular Volume 87.5 fL (81-99); Monocyte# 0.66 X10^3/uL; Monocyte% 11.2 % (0-10); Neutrophil % 44.3 % (47-70); Platelet Count 139 K/mm3 (150-450); RBC Distribution Width CV 13.7 % (11.6-14.6); RBC Distribution Width SD 42.1 fl (35.1-43.9); Red Blood Count 3.59 M/mm3 (4.2-5.4); White Blood Count 5.9 K/mm3 (4.4-11.0)
[2018-02-01 06:21] LABS: POSITIVE COUNT NO; POSITIVE DIFFERENTIAL NO; POSITIVE MORPHOLOGY NO
[2018-02-01 06:33] LABS: Anion Gap 10 (5-15); BUN 25 mg/dL (7-18); BUN/Creat Ratio 12.9 RATIO (10-20); Calcium,Total 8.4 mg/dL (8.5-10.1); Chloride 117 mmol/L (98-107); Creatinine, Serum 1.94 mg/dL (0.55-1.02); EST Glomerular Filtration Rate 26 mL/min (>60); Est Glom Filt Rate - Afr Amer 32 mL/min (>60); Estimated Creatinine Clearance 17.68 ml/min; Glucose 82 mg/dL (74-106); Sodium Level 147 mmol/L (136-145)
[2018-02-01] MEDS: Aspirin 81 MG TAB.CHEW PO (10:39)
[2018-02-01] MEDS: Montelukast 10 MG Tablet PO (10:40)
[2018-02-01] MEDS: Famotidine 20 MG Tablet PO (10:40)
[2018-02-01] MEDS: Clopidogrel Bisulfate 75 MG Tablet PO (10:40)
[2018-02-01] MEDS: Timolol 0.5% 5ML OPTH.BTL 1 DRP EACH EYE ×2 (10:41→22:25)
--- NOTE | 2018-02-01 10:41 | ED.RN ---
TPA WAS WITH HELD DUE TO CONFUSION ABOUT PT'S MEDICATION. FAMILY FELT THAT PT WAS ON COUMADIN SO DR DOUGLAS DIDN'T WANT IT GIVEN UNTIL WE KNEW FOR SURE. DR DOUGLAS PAGED PT'S PCP AND I CALLED THE PHARMACY AND REQUESTED COPY OF HER MEDICATION LIST. UNFORTUNATELY PT ALSO GETS MEDS THROUGH MAIL ORDER. AFT ER TALKING TO DR MOLINA AND FAMILY FOUND PT'S MEDICATON LIST FROM Dec THERE IS NO SIGN OF COUMADIN BEING ONE OF HER MEDICATIONS. PHARMACY WAS THEN CALLED TO CONFIRM THEY ARE STILL WORKING ON PTT'S TPA,
--- NOTE | 2018-02-01 11:48 | PCM.PN.HOSP ---
Patient Problems: Active and Suspected Problems Stroke (Acute) Subjective: Patient seen and examined. She has no complaints and feels well. She denies any fever or chills, and cough or chest pain, any shortness of breath, abdominal pain, any diarrhea vomiting. 12 point review of systems otherwise negative. She is awaiting placement. Vitals/I&O's: Vital Signs Temp Pulse Resp BP Pulse Ox 98.1 F 72 16 154/75 H 98 02/01/18 11:36 02/01/18 11:36 02/01/18 11:36 02/01/18 11:36 02/01/18 11:36 Oxygen Delivery Method Room Air Weight: 180 lb 15.992 oz Body Mass Index (BMI) 32.7 Intake and Output for Last 24 Hours 01/30/18 01/31/18 02/01/18 23:59 23:59 23:59 Intake Total 2915 / 2915 3009 / 3009 Output Total 1850 / 1850 Balance 1065 / 1065 3009 / 3009 General: Alert, Oriented x3, Cooperative, No apparent distress HEENT: Atraumatic, PERRLA, EOMI, Normocephalic Oral: Moist Mucosa Neck: Supple, No JVD, Negative Carotid Bruits Lungs: Clear to auscultation, Normal air movement, No rhonchi, No wheeze, No rales Cardiovascular: Regular rate, Regular Rhythm, Normal S1, Normal S2, No murmurs Abdomen: Bowel Sounds Present, Soft, Non Tender, Non-Distended, No Hepato-splenomegaly Extremities: No clubbing, No cyanosis, No edema Skin: No rashes, No breakdown Musculoskeletal: No Tenderness to Palpation of Joints or Extremities Lymphatic: No Cervical, Supraclavicular, or Inguinal Adenopathy Neurological: Cranial nerves II-XII grossly intact, Neuro grossly intact, Motor Exam 5/5 strength throughout Psych/Mental Status: Normal Affect, Appropriate, Alert and oriented to time, place, person, mood and affect Laboratory Results 02/01/18 05:25: WBC 5.9, RBC 3.59 L, Hgb 9.3 L, Hct 31.4 L, MCV 87.5, MCH 25.9 L, MCHC 29.6 L, RDW 13.7, RDW Differential 42.1, Plt Count 139 L, MPV 12.0, Immature Gran % (Auto) 0.200, Neut % (Auto) 44.3 L, Lymph % (Auto) 38.3, [place] % (Auto) 11.2 H, Eos % (Auto) 5.3 H, Baso % (Auto) 0.7, Absolute Neuts (auto) 2.6, Absolute Lymphs (auto) 2.25, Total Counted Not Reportable 02/01/18 05:25: Sodium 147 H, Potassium 4.0, Chloride 117 H, Carbon Dioxide 20.0 L, Anion Gap 10, BUN 25 H, Creatinine 1.94 H, Estim Creat Clear Calc 17.68, Est GFR (MDRD) Af Amer 32 L, Est GFR (MDRD) Non-Af 26 L, BUN/Creatinine Ratio 12.9, Glucose 82, Calcium 8.4 L Current Medications Albuterol Sulfate (Ventolin Aerosols) 2.5 mg INHALATION Q2H PRN PRN PRN Reason: DYSPNEA, WHEEZING Last Admin: 01/31/18 13:51 Dose: 2.5 mg Aspirin (Aspirin, Baby) 81 mg PO DAILY@0800 [facility] Last Admin: 02/01/18 10:39 Dose: 81 mg Atorvastatin Calcium (Lipitor) 40 mg PO QHS [facility] Last Admin: 01/31/18 21:20 Dose: 40 mg Bisacodyl (Dulcolax) 5 mg PO DAILY PRN PRN PRN Reason: Constipation Clopidogrel Bisulfate (Plavix) 75 mg PO DAILY [facility] Last Admin: 02/01/18 10:40 Dose: 75 mg Ergocalciferol (Vitamin D) 50,000 unit PO QMONTH [facility] Famotidine (Pepcid) 20 mg PO DAILY [facility] Last Admin: 02/01/18 10:40 Dose: 20 mg Guaifenesin (Robitussin) 10 ml PO Q6H PRN PRN PRN Reason: COUGH Heparin Sodium (Porcine) (Heparin Na) 5,000 unit SC Q8 [facility] Last Admin: 02/01/18 05:25 Dose: 5,000 unit Labetalol HCl (Trandate) 10 mg IV Q4H PRN PRN PRN Reason: SBP>185 Latanoprost (Xalatan Opthalmic) 1 drop RIGHT EYE QHS [facility] Last Admin: 01/31/18 21:20 Dose: 1 drop Levothyroxine Sodium (Synthroid) 100 mcg PO DAILY@0600 [facility] Last Admin: 02/01/18 05:25 Dose: 100 mcg Magnesium Hydroxide (Milk Of Magnesia) 30 ml PO DAILY PRN PRN PRN Reason: Constipation Montelukast Sodium (Singulair) 10 mg PO DAILY [facility] Last Admin: 02/01/18 10:40 Dose: 10 mg Non-Formulary Medication (Methazolamide [Neptazane]) 50 mg PO BID [facility] Last Admin: 02/01/18 10:39 Dose: 50 mg Nutritional Formula (Lactose Free) (Ensure Enlive) 120 ml PO 4X/DAY [facility] Last Admin: 02/01/18 10:39 Dose: 120 ml Sodium Chloride () 5 - 30 ml IV UD PRN PRN Reason: SALINE FLUSH Last Admin: 01/31/18 21:21 Dose: 10 ml Timolol Maleate (Timoptic) 1 drop EACH EYE BID [facility] Last Admin: 02/01/18 10:41 Dose: 1 drop Medical Necessity - Tobacco Use Smoking Status: Never smoker Tobacco Use: Non-smoker Assessment/Plan All Active Problems Stroke (Acute) CVA (cerebral vascular accident) (Acute) Cough (Acute) Shortness of breath (Acute) Cerebellar infarct (Acute) Speech apraxia (Acute) CVA (cerebral infarction) (Acute) 1. Acute ischemic stroke s/p TPA has no complaints. weakness and aphasia have resolved. on plavix 75mg daily. Will start aspirin 81mg daily today A1C is 5.1 on atorvastatin 40mg daily. 2. Hypernatremia: Na is 147 today. IVF dced. Will monitor 2. CKD stage IV CR 1.94 today will monitor 3.Hypertension fairly controlled on labetalol prn. 4. Hypothyroidism: on synthroid 5. DVT prophylaxis: SCDs Disposition: Awaiting discharge to rehab facility. This note was generated with [employer] dictation software. It may contain incorrect words, spelling, and punctuation that were not noted in checking the note before signing. Code Visit Inpatient E&M: 39173 Subs Hosp L2
--- NOTE | 2018-02-01 11:52 | PN_ITS ---
Patient Problems: Active and Suspected Problems Stroke (Acute) Subjective: Patient seen and examined. She has no complaints and feels well. She denies any fever or chills, and cough or chest pain, any shortness of breath, abdominal pain, any diarrhea vomiting. 12 point review of systems otherwise negative. She is awaiting placement. Vitals/I&O's: Vital Signs Temp Pulse Resp BP Pulse Ox 98.1 F 72 16 154/75 H 98 02/01/18 11:36 02/01/18 11:36 02/01/18 11:36 02/01/18 11:36 02/01/18 11:36 Oxygen Delivery Method Room Air Weight: 180 lb 15.992 oz Body Mass Index (BMI) 32.7 Intake and Output for Last 24 Hours 01/30/18 01/31/18 02/01/18 23:59 23:59 23:59 Intake Total 2915 / 2915 3009 / 3009 Output Total 1850 / 1850 Balance 1065 / 1065 3009 / 3009 General: Alert, Oriented x3, Cooperative, No apparent distress HEENT: Atraumatic, PERRLA, EOMI, Normocephalic Oral: Moist Mucosa Neck: Supple, No JVD, Negative Carotid Bruits Lungs: Clear to auscultation, Normal air movement, No rhonchi, No wheeze, No rales Cardiovascular: Regular rate, Regular Rhythm, Normal S1, Normal S2, No murmurs Abdomen: Bowel Sounds Present, Soft, Non Tender, Non-Distended, No Hepato- splenomegaly Extremities: No clubbing, No cyanosis, No edema Skin: No rashes, No breakdown Musculoskeletal: No Tenderness to Palpation of Joints or Extremities Lymphatic: No Cervical, Supraclavicular, or Inguinal Adenopathy Neurological: Cranial nerves II-XII grossly intact, Neuro grossly intact, Motor Exam 5/5 strength throughout Psych/Mental Status: Normal Affect, Appropriate, Alert and oriented to time, place, person, mood and affect Laboratory Results 02/01/18 05:25: WBC 5.9, RBC 3.59 L, Hgb 9.3 L, Hct 31.4 L, MCV 87.5, MCH 25.9 L , MCHC 29.6 L, RDW 13.7, RDW Differential 42.1, Plt Count 139 L, MPV 12.0, Immature Gran % (Auto) 0.200, Neut % (Auto) 44.3 L, Lymph % (Auto) 38.3, [place] % (Auto) 11.2 H, Eos % (Auto) 5.3 H, Baso % (Auto) 0.7, Absolute Neuts (auto) 2.6 , Absolute Lymphs (auto) 2.25, Total Counted Not Reportable 02/01/18 05:25: Sodium 147 H, Potassium 4.0, Chloride 117 H, Carbon Dioxide 20.0 L, Anion Gap 10, BUN 25 H, Creatinine 1.94 H, Estim Creat Clear Calc 17.68 , Est GFR (MDRD) Af Amer 32 L, Est GFR (MDRD) Non-Af 26 L, BUN/Creatinine Ratio 12.9, Glucose 82, Calcium 8.4 L Current Medications Albuterol Sulfate (Ventolin Aerosols) 2.5 mg INHALATION Q2H PRN PRN PRN Reason: DYSPNEA, WHEEZING Last Admin: 01/31/18 13:51 Dose: 2.5 mg Aspirin (Aspirin, Baby) 81 mg PO DAILY@0800 [facility] Last Admin: 02/01/18 10:39 Dose: 81 mg Atorvastatin Calcium (Lipitor) 40 mg PO QHS [facility] Last Admin: 01/31/18 21:20 Dose: 40 mg Bisacodyl (Dulcolax) 5 mg PO DAILY PRN PRN PRN Reason: Constipation Clopidogrel Bisulfate (Plavix) 75 mg PO DAILY [facility] Last Admin: 02/01/18 10:40 Dose: 75 mg Ergocalciferol (Vitamin D) 50,000 unit PO QMONTH [facility] Famotidine (Pepcid) 20 mg PO DAILY [facility] Last Admin: 02/01/18 10:40 Dose: 20 mg Guaifenesin (Robitussin) 10 ml PO Q6H PRN PRN PRN Reason: COUGH Heparin Sodium (Porcine) (Heparin Na) 5,000 unit SC Q8 [facility] Last Admin: 02/01/18 05:25 Dose: 5,000 unit Labetalol HCl (Trandate) 10 mg IV Q4H PRN PRN PRN Reason: SBP>185 Latanoprost (Xalatan Opthalmic) 1 drop RIGHT EYE QHS [facility] Last Admin: 01/31/18 21:20 Dose: 1 drop Levothyroxine Sodium (Synthroid) 100 mcg PO DAILY@0600 [facility] Last Admin: 02/01/18 05:25 Dose: 100 mcg Magnesium Hydroxide (Milk Of Magnesia) 30 ml PO DAILY PRN PRN PRN Reason: Constipation Montelukast Sodium (Singulair) 10 mg PO DAILY [facility] Last Admin: 02/01/18 10:40 Dose: 10 mg Non-Formulary Medication (Methazolamide [Neptazane]) 50 mg PO BID [facility] Last Admin: 02/01/18 10:39 Dose: 50 mg Nutritional Formula (Lactose Free) (Ensure Enlive) 120 ml PO 4X/DAY [facility] Last Admin: 02/01/18 10:39 Dose: 120 ml Sodium Chloride () 5 - 30 ml IV UD PRN PRN Reason: SALINE FLUSH Last Admin: 01/31/18 21:21 Dose: 10 ml Timolol Maleate (Timoptic) 1 drop EACH EYE BID [facility] Last Admin: 02/01/18 10:41 Dose: 1 drop Medical Necessity - Tobacco Use Smoking Status: Never smoker Tobacco Use: Non-smoker Assessment/Plan All Active Problems Stroke (Acute) CVA (cerebral vascular accident) (Acute) Cough (Acute) Shortness of breath (Acute) Cerebellar infarct (Acute) Speech apraxia (Acute) CVA (cerebral infarction) (Acute) 1. Acute ischemic stroke * s/p TPA * has no complaints. weakness and aphasia have resolved. * on plavix 75mg daily. Will start aspirin 81mg daily today * A1C is 5.1 * on atorvastatin 40mg daily. * 2. Hypernatremia: Na is 147 today. IVF dced. Will monitor 2. CKD stage IV * CR 1.94 today * will monitor * 3.Hypertension * fairly controlled * on labetalol prn. * 4. Hypothyroidism: on synthroid 5. DVT prophylaxis: SCDs Disposition: Awaiting discharge to rehab facility. This note was generated with [employer] dictation software. It may contain incorrect words, spelling, and punctuation that were not noted in checking the note before signing. Code Visit Inpatient E&M: 59427 Subs Hosp L2
--- NOTE | 2018-02-01 14:18 | CASEMGMT ---
RN MARIAN received a call from [employer] stating that patient's case is going to medical review. SHERYL spoke with patient's daughter, Natty and her grandson George. SHERYL explained that patient's case is being sent to medical review. SHERYL explained that this means the insurance physician is now looking at our request for half-way. SHERYL told them this often ends in patient being denied to go to the half-way. SHERYL said if this is the case she could private pay at a half-way which would run $160-250 per day. SHERYL also discussed home health. Natty asked about [facility] Wheels. She also mentioned someone had told her something about [employer] students coming to her home. SHERYL told her that is [facility] and SW can make a referral. SHERYL told them that she will likely be d/c tomorrow after insurance gives us their decision. They were ok with [facility] if needed. SHERYL called [facility] with referral. SHERYL will let her know if patient does get denied. SHERYL will also sets up [facility] and make a referral for [facility]. Deanne LEMUS MSW
--- NOTE | 2018-02-01 15:35 | CASEMGMT ---
SHERYL received a call from patient's daughter, [place]. She asked SW to explain to her about what is going on. Her sister tried to tell her, but she said she gets all worked up and doesn't always get things right. SHERYL explained that the nurse reviewer at [facility] does not feel patient meets criteria for assisted level of care. SHERYL explained the case then gets passed on to one of [facility]'s physicians and he/she decides if patient will be approved for SNF or not. SW told her most of the time, but not always, the patient gets denied. SHERYL explained home health could be set up. SW explained what home health entails. SW also mentioned [facility] and [facility]. SW told her patient will be discharged tomorrow. She thanked SHERYL for the explanation and help. Deanne LEMUS MSW
--- NOTE | 2018-02-01 15:55 | NURSING ---
Read SN documentation
[2018-02-01] MEDS: Atorvastatin Calcium 40 MG Tablet PO (22:24)
[2018-02-01] MEDS: Latanoprost 0.005% 1 Bottle 1 DRP RIGHT EYE (22:25)
[2018-02-02] VITALS (8 sets, daily range): BP systolic 144–188; BP diastolic 63–99; PULSE 67–85; RESP 16–18; TEMP 36.3–36.8; O2SAT 96–98; BMI 32.7
[2018-02-02] MEDS: 0.9% NaCl Peripheral Flush Adult/Peds IV (02:46)
[2018-02-02 05:31] LABS: Absolute Lymphocyte Count 2.35 X10^3/ul (0.83-4.51); Absolute Neutrophil Count 2.9 X10^3/uL (2.0-7.7); Basophil# 0.04 X10^3/uL; Basophil% 0.6 % (0-1); Eosinophil# 0.32 X10^3/uL; Eosinophils% 5.1 % (0-5); Hematocrit 31.6 % (37-47); Hemoglobin 9.7 g/dl (12.0-15.0); Lymphocyte # 2.35 X10^3/ul (4.0); Lymphocyte % 37.2 % (19-41); Mean Corp Hgb Conc 30.7 g/gl (32-36); Mean Corpuscular Hgb 26.9 pg (27.0-32.0); Mean Corpuscular Volume 87.5 fL (81-99); Mean Platelet Vol. 11.7 fl (6.2-12.0); Monocyte# 0.67 X10^3/uL; Monocyte% 10.6 % (0-10); Neutrophil # 2.92 X10^3/uL (2.7-7.7); Neutrophil % 46.3 % (47-70); Platelet Count 141 K/mm3 (150-450); RBC Distribution Width CV 13.7 % (11.6-14.6); RBC Distribution Width SD 42.2 fl (35.1-43.9); Red Blood Count 3.61 M/mm3 (4.2-5.4); White Blood Count 6.3 K/mm3 (4.4-11.0)
[2018-02-02 05:32] LABS: POSITIVE COUNT NO; POSITIVE DIFFERENTIAL NO; POSITIVE MORPHOLOGY NO
[2018-02-02] MEDS: Heparin Injection (Vial) 5,000 UNIT/ML VIAL 5000 UNIT SC (05:33)
[2018-02-02] MEDS: Levothyroxine 100 MCG Tablet PO (05:33)
[2018-02-02 05:47] LABS: Anion Gap 9 (5-15); BUN 30 mg/dL (7-18); BUN/Creat Ratio 14.4 RATIO (10-20); Calcium,Total 8.2 mg/dL (8.5-10.1); Chloride 116 mmol/L (98-107); Creatinine, Serum 2.08 mg/dL (0.55-1.02); EST Glomerular Filtration Rate 24 mL/min (>60); Est Glom Filt Rate - Afr Amer 29 mL/min (>60); Estimated Creatinine Clearance 16.49 ml/min; Glucose 84 mg/dL (74-106); Potassium 4.2 mmol/L (3.5-5.1); Sodium Level 147 mmol/L (136-145)
[2018-02-02] MEDS: Aspirin 81 MG TAB.CHEW PO (10:01)
[2018-02-02] MEDS: Famotidine 20 MG Tablet PO (10:03)
[2018-02-02] MEDS: Montelukast 10 MG Tablet PO (10:03)
[2018-02-02] MEDS: Clopidogrel Bisulfate 75 MG Tablet PO (10:03)
[2018-02-02] MEDS: Timolol 0.5% 5ML OPTH.BTL 1 DRP EACH EYE (10:09)
--- NOTE | 2018-02-02 11:12 | PCM.DC ---
- Discharge Diagnoses Current Active Problems: Current Active and Chronic Problems Stroke (Acute) You will use the following diet at home:: Cardiac Your food should be the consistency of: Regular Your liquids should be the consistency of: Regular/Thin Discharge Activity: Return to Normal Activity Weight Bearing Status: Weight bearing as tolerated Call your doctor if you observe: Numbness or Tingling, Shortness of breath, Chest pain, Increased palpitations (irregular heartbeat) Instructions: Stroke and Heart Disease, Thrombolytic Therapy (Stroke) Additional Instructions: to have 30 day heart monitor; home PT/OT 5 x weekly Allergies/Adverse Reactions: Allergies erythromycin base Allergy (Verified 01/29/18 09:32) Rash lisinopril Allergy (Verified 01/29/18 09:32) Unknown NSAIDS (Non-Steroidal Anti-Inflamma Allergy (Verified 01/29/18 09:32) Other Salicylates Allergy (Verified 01/29/18 09:32) Other PROTEIN IN URINE DRUG Allergy (Uncoded 01/29/18 09:32) Other Medications to take at Discharge Amlodipine Besylate 10 mg PO DAILY 12/26/14 Bimatoprost 0.01% [Lumigan 0.01%] 1 drop RIGHT EYE QHS 12/27/14 Budesonide/Formoterol 160/4.5 [Symbicort 160/4.5 Mcg Inhaler (SP)] 1 puff INHALATION DAILY PRN PRN 07/20/15 Ergocalciferol [Vitamin D] 50,000 unit PO QMONTH 07/20/15 Montelukast Sodium [Singulair] 10 mg PO DAILY 07/20/15 Aspirin E.C. [Ecotrin] 81 mg PO DAILY@0800 #30 tablet 07/22/15 Clopidogrel Bisulfate [Plavix] 75 mg PO DAILY #30 tablet 07/31/15 Methazolamide [Neptazane] 50 mg PO BID 11/26/15 Timolol 0.5% [Timoptic] 1 drop EACH EYE BID 11/26/15 Albuterol Aerosols [Ventolin Aerosols] 2.5 mg INHALATION Q2H PRN PRN #1 box 05/20/16 Ensure Enlive 120 ml PO 4X/DAY #30 liquid 05/20/16 Guaifenesin [Robitussin] 10 ml PO Q6H PRN PRN #1 bottle 05/20/16 Levothyroxine [Synthroid] 100 mcg PO DAILY 01/29/18 Atorvastatin Calcium [Lipitor] 40 mg PO QHS #30 tab 02/02/18 Metoprolol Tartrate 12.5 mg PO BID #30 tab 02/02/18 The following prescriptions were given: Atorvastatin Calcium [Lipitor] 40 mg PO QHS #30 tab Metoprolol Tartrate 12.5 mg PO BID #30 tab Primary Care Physician: Wayne Leahy Chi, MD [Primary Care Provider] - Please follow up with your Primary Care Physician in: one week Test Results: Test results from this visit will be discussed in further detail at your follow-up appointment, if applicable. Please Follow Up With: James Villegas MD When: 1-2 weeks Proposed Discharge Date: 02/02/18
--- NOTE | 2018-02-02 11:15 | DCINST_ITS ---
- Discharge Diagnoses Current Active Problems: Current Active and Chronic Problems Stroke (Acute) You will use the following diet at home:: Cardiac Your food should be the consistency of: Regular Your liquids should be the consistency of: Regular/Thin Discharge Activity: Return to Normal Activity Weight Bearing Status: Weight bearing as tolerated Call your doctor if you observe: Numbness or Tingling, Shortness of breath, Chest pain, Increased palpitations (irregular heartbeat) Instructions: Stroke and Heart Disease, Thrombolytic Therapy (Stroke) Additional Instructions: to have 30 day heart monitor; home PT/OT 5 x weekly Allergies/Adverse Reactions: Allergies erythromycin base Allergy (Verified 01/29/18 09:32) Rash lisinopril Allergy (Verified 01/29/18 09:32) Unknown NSAIDS (Non-Steroidal Anti-Inflamma Allergy (Verified 01/29/18 09:32) Other Salicylates Allergy (Verified 01/29/18 09:32) Other PROTEIN IN URINE DRUG Allergy (Uncoded 01/29/18 09:32) Other Medications to take at Discharge Amlodipine Besylate 10 mg PO DAILY 12/26/14 Bimatoprost 0.01% [Lumigan 0.01%] 1 drop RIGHT EYE QHS 12/27/14 Budesonide/Formoterol 160/4.5 [Symbicort 160/4.5 Mcg Inhaler (SP)] 1 puff INHALATION DAILY PRN PRN 07/20/15 Ergocalciferol [Vitamin D] 50,000 unit PO QMONTH 07/20/15 Montelukast Sodium [Singulair] 10 mg PO DAILY 07/20/15 Aspirin E.C. [Ecotrin] 81 mg PO DAILY@0800 #30 tablet 07/22/15 Clopidogrel Bisulfate [Plavix] 75 mg PO DAILY #30 tablet 07/31/15 Methazolamide [Neptazane] 50 mg PO BID 11/26/15 Timolol 0.5% [Timoptic] 1 drop EACH EYE BID 11/26/15 Albuterol Aerosols [Ventolin Aerosols] 2.5 mg INHALATION Q2H PRN PRN #1 box Ensure Enlive 120 ml PO 4X/DAY #30 liquid 05/20/16 Guaifenesin [Robitussin] 10 ml PO Q6H PRN PRN #1 bottle 05/20/16 Levothyroxine [Synthroid] 100 mcg PO DAILY 01/29/18 Atorvastatin Calcium [Lipitor] 40 mg PO QHS #30 tab 02/02/18 Metoprolol Tartrate 12.5 mg PO BID #30 tab 02/02/18 The following prescriptions were given: Atorvastatin Calcium [Lipitor] 40 mg PO QHS #30 tab Metoprolol Tartrate 12.5 mg PO BID #30 tab Primary Care Physician: Wayne Leahy Chi, MD [Primary Care Provider] - Please follow up with your Primary Care Physician in: one week Test Results: Test results from this visit will be discussed in further detail at your follow- up appointment, if applicable. Please Follow Up With: James Villeags MD When: 1-2 weeks Proposed Discharge Date: 02/02/18
--- NOTE | 2018-02-02 11:16 | DS.PCM_ITS ---
Discharge Date and Diagnosis - Problem List Patient Problems: Active and Suspected Problems Stroke (Acute) Date of Admission: 01/29/18 Date of Discharge: 02/02/18 - Primary Discharge Diagnosis Active and Suspected Problems Stroke (Acute) - Secondary Discharge Diagnosis Chronic Problems History of stroke (Chronic) Asthma (Chronic) Glaucoma (Chronic) Hypertension (Chronic) CKD (chronic kidney disease) stage 3, GFR 30-59 ml/min (Chronic) Obesity (BMI 30.0-34.9) (Chronic) Hyperlipidemia (Chronic) Hospital Course and Treatment Imaging Results: Diagnostic Data Brain CT 01/29/18 09:20 IMPRESSION: No definitive evidence of acute hemorrhage infarct or edema. Evidence of old infarct right occipital lobe. Moderate ethmoid and frontal sinusitis. N.B. : The above information has been verbally conveyed by Sanjuanita Stallworth MD to Daniel Castano, Referring Physician, on 01/29/2018 09:41:45 (ET). Electronically Signed: Sanjuanita Stallworth MD at 9:42 EDT Tel , Service support , Chest X-Ray 01/29/18 09:20 IMPRESSION: Persistent right lower lobe mass. Cardiomegaly. Tortuous aorta. No definitive focal infiltrate. Electronically Signed: Sanjuanita Stallworth MD at 9:53 EDT Tel , Service support , Head CTA 01/29/18 09:54 IMPRESSION: Normal [place] without a demonstrated aneurysm or hemodynamically significant stenosis. Electronically Signed: Sanjuanita Stallworth MD at 10:57 EDT Tel , Service support , Neck CTA 01/29/18 09:54 IMPRESSION: Trace calcification of the tortuous medially right side carotid bulb. Both of the carotid bulbs are seen posterior to the level of the epiglottis anterior to the level of C3-C4. No evidence of significant stenosis. Degenerative change of the thoracolumbar spine. Bovine arch with a common takeoff of the bilateral carotid arteries. Electronically Signed: Sanjuanita Stallworth MD at 11:02 EDT Tel , Service support , Brain MRI 01/30/18 08:37 IMPRESSION: 1. Subacute cortical based ischemic infarct involving the left temporal lobe and a portion of the left insular cortex. 2. Old cortical based a cystic infarct with focal atrophy in the right posterior lingual gyrus. 3. Chronic periventricular white matter ischemic changes in both cerebral hemispheres. Electronically Signed: Jey Rollins MD at 13:04 EDT , Service support , Laboratory Tests 01/29/18 01/29/18 01/29/18 09:17 09:20 09:20 WBC 5.7 RBC 4.27 Hgb 11.1 L Hct 37.3 MCV 87.4 MCH 26.0 L MCHC 29.8 L RDW 13.9 RDW Differential 43.6 Plt Count 154 MPV 11.0 Immature Gran % (Auto) 0.200 Neut % (Auto) 59.1 Lymph % (Auto) 28.8 [place] % (Auto) 7.5 Eos % (Auto) 3.7 Baso % (Auto) 0.7 Absolute Neuts (auto) 3.4 Absolute Lymphs (auto) 1.64 Total Counted Not Reportable PT 13.6 INR 1.0 APTT 36.9 H Sodium Potassium Chloride Carbon Dioxide Anion Gap BUN Creatinine Estim Creat Clear Calc Est GFR (MDRD) Af Amer Est GFR (MDRD) Non-Af BUN/Creatinine Ratio Glucose Hemoglobin A1c Calcium Troponin I Triglycerides Cholesterol LDL Cholesterol VLDL Cholesterol HDL Cholesterol POC Glucose 172 H 01/29/18 01/29/18 01/30/18 09:20 14:31 03:25 WBC RBC Hgb Hct MCV MCH MCHC RDW RDW Differential Plt Count MPV Immature Gran % (Auto) Neut % (Auto) Lymph % (Auto) [place] % (Auto) Eos % (Auto) Baso % (Auto) Absolute Neuts (auto) Absolute Lymphs (auto) Total Counted PT INR APTT Sodium 145 145 Potassium 3.6 3.8 Chloride 113 H 114 H Carbon Dioxide 23.0 22.0 Anion Gap 9 9 BUN 25 H 22 H Creatinine 2.05 H 1.70 H Estim Creat Clear Calc 17.50 20.18 Est GFR (MDRD) Af Amer 30 L 37 L Est GFR (MDRD) Non-Af 25 L 31 L BUN/Creatinine Ratio 12.2 12.9 Glucose 161 H 78 Hemoglobin A1c Calcium 8.5 7.7 L Troponin I < 0.015 < 0.015 Triglycerides 75 Cholesterol 117 LDL Cholesterol 57 VLDL Cholesterol 15 HDL Cholesterol 45 POC Glucose 01/30/18 01/30/18 01/31/18 03:25 03:25 05:35 WBC 6.7 7.1 RBC 3.50 L 3.76 L Hgb 9.5 L 10.1 L Hct 30.6 L 32.7 L MCV 87.4 87.0 MCH 27.1 26.9 L MCHC 31.0 L 30.9 L RDW 13.6 13.8 RDW Differential 42.1 42.4 Plt Count 150 155 MPV 11.6 12.0 Immature Gran % (Auto) 0.100 Neut % (Auto) 52.9 Lymph % (Auto) 32.4 [place] % (Auto) 10.3 H Eos % (Auto) 4.0 Baso % (Auto) 0.3 Absolute Neuts (auto) 3.7 Absolute Lymphs (auto) 2.29 Total Counted Not Reportable PT INR APTT Sodium Potassium Chloride Carbon Dioxide Anion Gap BUN Creatinine Estim Creat Clear Calc Est GFR (MDRD) Af Amer Est GFR (MDRD) Non-Af BUN/Creatinine Ratio Glucose Hemoglobin A1c 5.1 Calcium Troponin I Triglycerides Cholesterol LDL Cholesterol VLDL Cholesterol HDL Cholesterol POC Glucose 01/31/18 02/01/18 02/01/18 05:35 05:25 05:25 WBC 5.9 RBC 3.59 L Hgb 9.3 L Hct 31.4 L MCV 87.5 MCH 25.9 L MCHC 29.6 L RDW 13.7 RDW Differential 42.1 Plt Count 139 L MPV 12.0 Immature Gran % (Auto) 0.200 Neut % (Auto) 44.3 L Lymph % (Auto) 38.3 [place] % (Auto) 11.2 H Eos % (Auto) 5.3 H Baso % (Auto) 0.7 Absolute Neuts (auto) 2.6 Absolute Lymphs (auto) 2.25 Total Counted Not Reportable PT INR APTT Sodium 148 H 147 H Potassium 3.9 4.0 Chloride 118 H 117 H Carbon Dioxide 21.0 20.0 L Anion Gap 9 10 BUN 23 H 25 H Creatinine 1.89 H 1.94 H Estim Creat Clear Calc 18.15 17.68 Est GFR (MDRD) Af Amer 33 L 32 L Est GFR (MDRD) Non-Af 27 L 26 L BUN/Creatinine Ratio 12.2 12.9 Glucose 81 82 Hemoglobin A1c Calcium 8.1 L 8.4 L Troponin I Triglycerides Cholesterol LDL Cholesterol VLDL Cholesterol HDL Cholesterol POC Glucose 02/02/18 02/02/18 05:14 05:14 WBC 6.3 RBC 3.61 L Hgb 9.7 L Hct 31.6 L MCV 87.5 MCH 26.9 L MCHC 30.7 L RDW 13.7 RDW Differential 42.2 Plt Count 141 L MPV 11.7 Immature Gran % (Auto) 0.200 Neut % (Auto) 46.3 L Lymph % (Auto) 37.2 [place] % (Auto) 10.6 H Eos % (Auto) 5.1 H Baso % (Auto) 0.6 Absolute Neuts (auto) 2.9 Absolute Lymphs (auto) 2.35 Total Counted Not Reportable PT INR APTT Sodium 147 H Potassium 4.2 Chloride 116 H Carbon Dioxide 22.0 Anion Gap 9 BUN 30 H Creatinine 2.08 H Estim Creat Clear Calc 16.49 Est GFR (MDRD) Af Amer 29 L Est GFR (MDRD) Non-Af 24 L BUN/Creatinine Ratio 14.4 Glucose 84 Hemoglobin A1c Calcium 8.2 L Troponin I Triglycerides Cholesterol LDL Cholesterol VLDL Cholesterol HDL Cholesterol POC Glucose Interpretation Summary 2 D echo 01/29/18 Normal LV size. Left ventricular systolic function is normal. The estimated ejection fraction is 60 %. Stage 1 diastolic dysfunction. Probable liver cyst noted Compared to prior study, there is no significant change. neurology Operations: None Procedures: 2-D Echocardiogram Summary of Care Provided: The patient is a 83 year old F with a history of CVA< asthma, hypertension, glaucoma, CKD 3, obesity and hyperlipidemia. She was admitted o n 01/29/18 with a complaint of sudden onset right sided weakness and aphasia. In the ED, her NIH score was 6. CT head done in the ED showed no evidence of acute hemorrhage, infarct or edema, evidence of an old right occipital lobe infarct. However, based on her NIH score of 6, decision was made after discussion with neurology to administer TPA to patient. Patient did receive TPA was admitted to the ICU afterwards managed for acute ischemic stroke. Will monitor for AK I with a creatinine of 2.05. Also started on statin and Plavix 75 mg daily. She had an MRI of the brain showed evidence of subacute cortical based ischemic infarct along with an old cortical be cystic infarct of the right posterior lingual gyrus and chronic periventricular white matter ischemic changes. 2D echo done showed stage I diastolic dysfunction with an EF of 60%. Patient was started on aspirin about 24-48 hours after TPA was administered. Patient's blood pressure remained elevated and her amlodipine was resumed. She was also started on metoprolol 12.5 mg twice daily. HPI on CKD resolved with demonstration of IV fluids. Patient was to be discharged to a rehab facility. However the presurgery was denied by his insurance company. Patient was therefore discharged home on 02/02/2018 with home health care and outpatient physical therapy. She is to follow-up with her primary care doctor, neurologist in 1 week. She was also discharged with a Holter monitor for 30 days. Results of the monitor to be sent to her primary care doctor neurologist. Seen and examined prior to discharge. She had no complaints and felt well. She had a good night sleep and denied any fever or chills, cough or chest pain, shortness of breath, abdominal pain, diarrhea vomiting. 12 point review of systems otherwise negative. Her daughter and grandson were by her bedside. Labs and vitals reviewed. On examination: Vital Signs Height 5 ft 2.99 in Weight: 180 lb 5.41 oz Weight in Pounds 180.3 lbs Pulse Ox 96 Temperature 97.3 F Pulse Rate 85 Respiratory Rate 18 Blood Pressure [BP] 167/72 Blood Pressure 169/78 Blood Pressure Position [BP] Semi-Fowlers Blood Pressure Position Semi-Fowlers []General: Alert, Oriented x3, Cooperative, No apparent distress HEENT: Atraumatic, PERRLA, EOMI, Normocephalic Oral: Moist Mucosa Neck: Supple, No JVD, Negative Carotid Bruits Lungs: Clear to auscultation, Normal air movement, No rhonchi, No wheeze, No rales Cardiovascular: Regular rate, Regular Rhythm, Normal S1, Normal S2, No murmurs Abdomen: Bowel Sounds Present, Soft, Non Tender, Non-Distended, No Hepato- splenomegaly Extremities: No clubbing, No cyanosis, No edema Skin: No rashes, No breakdown Musculoskeletal: No Tenderness to Palpation of Joints or Extremities Lymphatic: No Cervical, Supraclavicular, or Inguinal Adenopathy Neurological: Cranial nerves II-XII grossly intact, Neuro grossly intact, Motor Exam 5/5 strength throughout Psych/Mental Status: Normal Affect, Appropriate, Alert and oriented to time, place, person, mood and affect Plan as stated above. Discharge Diet: Low fat/ Low Cholesterol Discharge Activity: Return to Normal Activity Weight Bearing Status: Weight bearing as tolerated Call your doctor if you observe: Numbness or Tingling, Shortness of breath, Chest pain, Increased palpitations (irregular heartbeat) Home Medications: Medications to take at Discharge Amlodipine Besylate 10 mg PO DAILY 12/26/14 Bimatoprost 0.01% [Lumigan 0.01%] 1 drop RIGHT EYE QHS 12/27/14 Budesonide/Formoterol 160/4.5 [Symbicort 160/4.5 Mcg Inhaler (SP)] 1 puff INHALATION DAILY PRN PRN 07/20/15 Ergocalciferol [Vitamin D] 50,000 unit PO QMONTH 07/20/15 Montelukast Sodium [Singulair] 10 mg PO DAILY 07/20/15 Aspirin E.C. [Ecotrin] 81 mg PO DAILY@0800 #30 tablet 07/22/15 Clopidogrel Bisulfate [Plavix] 75 mg PO DAILY #30 tablet 07/31/15 Methazolamide [Neptazane] 50 mg PO BID 11/26/15 Timolol 0.5% [Timoptic] 1 drop EACH EYE BID 11/26/15 Albuterol Aerosols [Ventolin Aerosols] 2.5 mg INHALATION Q2H PRN PRN #1 box Ensure Enlive 120 ml PO 4X/DAY #30 liquid 05/20/16 Guaifenesin [Robitussin] 10 ml PO Q6H PRN PRN #1 bottle 05/20/16 Levothyroxine [Synthroid] 100 mcg PO DAILY 01/29/18 Atorvastatin Calcium [Lipitor] 40 mg PO QHS #30 tab 02/02/18 Metoprolol Tartrate 12.5 mg PO BID #30 tab 02/02/18 Following Prescrptions Were Given to Patient: Atorvastatin Calcium [Lipitor] 40 mg PO QHS #30 tab Metoprolol Tartrate 12.5 mg PO BID #30 tab Primary Care Physician: Wayne Leahy Chi, MD [Primary Care Provider] - Please follow up with your Primary Care Physician in: one week Please Follow Up With: James Villegas MD When: 1-2 weeks Patient Instructions: Stroke and Heart Disease, Thrombolytic Therapy (Stroke) Disposition: Home with Home Health Minutes spent on discharge:: 40 Patient Condition:: Stable Medical Necessity - Tobacco Use Smoking Status: Never smoker Tobacco Use: Non-smoker Meaningful Use Info Meaningful Use Diagnoses (Choose all that apply): None applicable, Ischemic CVA - CVA Therapy Assessed for PT,OT and/or ST?: Yes - Ischemic Stroke Antithrombotic order at d/c?: Yes Dx of Atrial fib/flutter?: No Statins at discharge?: Yes Primary Dx Acute Ischemic CVA?: Yes IV tPA ordered during stay?: Yes Code Visit Inpatient E&M: 03078 Disch Hosp
[2018-02-02] MEDS: Metoprolol Tartrate 25 MG Tablet 12.5 MG PO (11:51)
[2018-02-02] MEDS: amLODIPine 10 MG Tablet PO (11:52)
--- NOTE | 2018-02-02 13:11 | CASEMGMT ---
Received a call from [employer] and patient was denied going to TCU. SHERYL spoke with patient and her daughter, [place]. SHERYL explained SW will make a referral to [facility], [facility], and a referral was made to [facility]. They were all in agreement with this plan. SHERYL called Kody with [facility] and made a referral as well as put referral in the computer. SHERYL also called Malia with [facility] and let her know patient was denied for TCU. She will come and see patient today. They have her on the schedule for tomorrow. SHERYL faxed referral to [facility]. Plan: Home with [facility] fdc, PT, OT, SW, and ST Deanne GONZALES
--- NOTE | 2018-02-02 15:04 | CASEMGMT ---
Patient's daughter is upset about patient being discharged. She feels she is too confused to be home alone. Per Speech therapy patient is doing well with basic comprehension. However, patient may need assist with more complicated things such as medication management. Home health and family should be sufficient for this. SHERYL spoke with Madelaine at [facility] and patient is on the schedule for tomorrow. SHERYL told patient's daughter this information. Patient seemed confused, however there were 3 different people in the room trying to tell her different things. This would be confusing for a patient of her age and who just had a stroke. Insurance denied SNF stay and hospital physician feels patient is fine for home with home health and family support. SHERYL set up [facility] fpc, PT, OT, ST, and SW. SHERYL also made a referral to [facility]. SHERYL also faxed a referral to [facility]. Deanne LEMUS MSW
--- NOTE | 2018-02-03 09:38 | CASEMGMT ---
This JUSTIN FONSECA spoke with Kody at [facility] and she states that they will manage pt simultaneously with [facility] at this time. Jossy ANDERSON CM
--- NOTE | 2018-02-03 15:27 | CASEMGMT ---
JUSTIN FONSECA Discharge F/U Phone Call LACE: 12 Strata: 4 Discharge date: 02/02/18 Call date: 02/03/18 Call time: [id number] Duration: 4 minutes Admission dx: CVA Pt's daughter, [place], answered the phone and states that pt has been doing 'ok' since discharge. Daughter states no questions regarding discharge instructions or medications at this time. Daughter states that the holter monitor has been beeping and this JUSTIN FONSECA advised her to call number on monitor instruction sheet at this time, voices understanding. Daughter aware that [facility] will be working simultaneously with [facility] at this time, voices understanding. Daughter questioned when SW from [facility] would be getting ahold of them and message left for [facility] SW at this time, advising of same. Daughter states no further questions/concerns/needs at this time. [place] JUSTIN FONSECA
== END 2018-02-02 15:31 | disposition home health service (06) | DRG 62 ==
LOC: ED 09:25 → ICU 12:21 → PCU 01-30 23:33
PROVIDERS: Emergency Provider Emergency Medicine; Family Provider Family Medicine Geriatric Medicine; PCP Family Medicine Geriatric Medicine; Visit Provider Student in an Organized Health Care Education/Training Program
DX: I63.9 Cerebral infarction, unspecified (principal); E87.0 Hyperosmolality and hypernatremia; G81.91 Hemiplegia, unspecified affecting right dominant side; R47.01 Aphasia; R29.706 NIHSS score 6; H40.9 Unspecified glaucoma; E66.9 Obesity, unspecified; Z68.32 Body mass index [BMI] 32.0-32.9, adult; E78.5 Hyperlipidemia, unspecified; Z86.73 Personal history of transient ischemic attack (TIA), and cerebral infarction without residual deficits; J45.909 Unspecified asthma, uncomplicated; E03.9 Hypothyroidism, unspecified; I12.9 Hypertensive chronic kidney disease with stage 1 through stage 4 chronic kidney disease, or unspecified chronic kidney disease; N18.3 Chronic kidney disease, stage 3 (moderate)
CPT/HCPCS: 36415; 70450; 70496; 70498; 70551; 71045; 80048; 80061; 82962; 83036; 84484; 85025; 85027; 85610; 85730; 92507; 92523; 93005; 93306; 94640; 97110; 97116; 97162; 97165; 97530; 97535; 97802; 99285; J2997; J7030; J7040; Q9967; A4216; J3490

== ENCOUNTER → 2018-02-02 15:43 | Outpatient (CLI) | payer MEDICARE, SELFPAY | PROVIDERS: Family Provider Family Medicine Geriatric Medicine; PCP Family Medicine Geriatric Medicine; Visit Provider Student in an Organized Health Care Education/Training Program | DX: R00.2 Palpitations (principal) | CPT/HCPCS: 93225; 93226 ==

== ENCOUNTER → 2018-02-07 15:41 | Outpatient (CLI) | payer MEDICARE, SELFPAY ==
[2018-02-07 16:58] LABS: Anion Gap 9 (5-15); BUN 41 mg/dL (7-18); BUN/Creat Ratio 18.7 RATIO (10-20); Calcium,Total 8.7 mg/dL (8.5-10.1); Chloride 110 mmol/L (98-107); Creatinine, Serum 2.19 mg/dL (0.55-1.02); EST Glomerular Filtration Rate 23 mL/min (>60); Est Glom Filt Rate - Afr Amer 28 mL/min (>60); Glucose 80 mg/dL (74-106); Potassium 4.5 mmol/L (3.5-5.1); Sodium Level 142 mmol/L (136-145)
== END ==
PROVIDERS: Family Provider Family Medicine Geriatric Medicine; PCP Family Medicine Geriatric Medicine; Visit Provider Family Medicine Geriatric Medicine
DX: I10 Essential (primary) hypertension (principal)
CPT/HCPCS: 36415; 80048

== ENCOUNTER 2018-04-03 16:37 | Outpatient (RCR) | payer MEDICARE, SELFPAY | END 2018-04-21 23:59 | LOC: NS 16:37 | PROVIDERS: Family Provider Family Medicine Geriatric Medicine; PCP Family Medicine Geriatric Medicine | DX: C64.9 Malignant neoplasm of unspecified kidney, except renal pelvis (principal); I12.9 Hypertensive chronic kidney disease with stage 1 through stage 4 chronic kidney disease, or unspecified chronic kidney disease; N18.3 Chronic kidney disease, stage 3 (moderate); Z86.73 Personal history of transient ischemic attack (TIA), and cerebral infarction without residual deficits; Z71.3 Dietary counseling and surveillance | CPT/HCPCS: 97802 ==

== ENCOUNTER → 2018-05-22 11:16 | Outpatient (CLI) | payer MEDICARE, SELFPAY | PROVIDERS: Family Provider Family Medicine Geriatric Medicine; PCP Family Medicine Geriatric Medicine; Referring Provider Family Medicine Geriatric Medicine; Visit Provider Family Medicine Geriatric Medicine | DX: R68.83 Chills (without fever) (principal) | CPT/HCPCS: 87633 ==

== ENCOUNTER 2018-05-25 09:00 | Outpatient (RCR) | payer MEDICARE, SELFPAY ==
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
--- NOTE | 2018-05-25 09:41 | HP.SP.DC ---
ST Discharge Summary - Discharged: Discharge: The Patient is an 83 year old female who attended 7 skilled speech-language intervention sessions spanning from 04/11/2018 to 05/25/2017 targeting cognitive communication abilities secondary to a 01/31/2018 subacute cerebrovascular ischemic infarct involving the left temporal lobe and a portion of the left insular cortex. 01/30/2018 MRI revealed a subacute cortical based ischemic infarct involving the left temporal lobe and a portion of the left insular cortex; an old cortical based a cystic infarct with focal atrophy in the right. posterior lingual gyrus; chronic periventricular white matter ischemic changes in both cerebral hemispheres. Throughout the initial portions of intervention, the Patient was somewhat reserved with concerns for insight into potential deficits. This appeared to have improved, with additional complicating idiosyncratic factors that may have clouded the initial assessment of executive functioning. Upon 05/18/2018 reassessment, the Patient presented with overall cognitive communication functioning within normal limits, with a mild impairment in memory, though scores were likely influenced by the Patients mild bradyphrenia resulting in lower scores in timed based subtests. The full results of the 05/18/2018 Cognitive-Linguistic Quick Test (CLQT) are detailed below: COGNITIVE DOMAIN SCORES: ATTENTION: (Cognitive Domain Score: 181, Severity Rating: WNL). MEMORY: (Cognitive Domain Score: 138, Severity Rating: MILD). EXECUTIVE FUNCTIONS: (Cognitive Domain Score: 23, Severity Rating: WNL). LANGUAGE: (Cognitive Domain Score: 30, Severity Rating: WNL). VISUOSPATIAL SKILLS: (Cognitive Domain Score: 77, Severity Rating: WNL). CLOCK DRAWING: (Score: 12, Severity Rating: WFL). COMPOSITE SEVERITY RATIN.8 (WNL). Discussed results and recommendations with the Patient and the Patients daughter, with discussion of therapeutic targets moving forward, with all expressing to move forward with development of recommended home based cognitive communication activities to promote continued maintenance of the Patients current cognitive abilities (i.e., puzzles, increased socialization / participation in social activities, learning new hobbies), with increased assistance with management of medications and general IADL activities as appropriate (occasional oversight at current level) to ensure any alteration in cognitive functioning is promptly addressed; all recommendations were well received by the Patient and Patients daughter with high likelihood of implementation. Will discharge from the skilled speech-language intervention caseload at this time, though would gladly re-initiate intervention as needed moving forward.
== END 2018-05-25 10:43 | disposition home or self-care (01) ==
LOC: SP 09:00
PROVIDERS: Family Provider Family Medicine Geriatric Medicine; PCP Family Medicine Geriatric Medicine; Referring Provider Family Medicine Geriatric Medicine; Visit Provider Family Medicine Geriatric Medicine
DX: R47.01 Aphasia (principal); Z86.73 Personal history of transient ischemic attack (TIA), and cerebral infarction without residual deficits
CPT/HCPCS: 92507; 92523

== ENCOUNTER → 2018-07-21 09:59 | Outpatient (CLI) | payer MEDICARE, SELFPAY ==
[2018-07-21 12:45] LABS: Absolute Lymphocyte Count 1.84 X10^3/ul (0.83-4.51); Absolute Neutrophil Count 3.4 X10^3/uL (2.0-7.7); Basophil# 0.06 X10^3/uL; Eosinophil# 0.18 X10^3/uL; Hematocrit 35.5 % (37-47); Hemoglobin 10.6 g/dl (12.0-15.0); Lymphocyte # 1.84 X10^3/ul (4.0); Lymphocyte % 30.6 % (19-41); Mean Corp Hgb Conc 29.9 g/gl (32-36); Mean Corpuscular Hgb 26.9 pg (27.0-32.0); Mean Corpuscular Volume 90.1 fL (81-99); Mean Platelet Vol. 12.2 fl (6.2-12.0); Monocyte# 0.54 X10^3/uL; Neutrophil # 3.38 X10^3/uL (2.7-7.7); Neutrophil % 56.1 % (47-70); Platelet Count 178 K/mm3 (150-450); RBC Distribution Width CV 14.5 % (11.6-14.6); RBC Distribution Width SD 46.6 fl (35.1-43.9); Red Blood Count 3.94 M/mm3 (4.2-5.4)
[2018-07-21 12:48] LABS: POSITIVE COUNT NO; POSITIVE DIFFERENTIAL NO; POSITIVE MORPHOLOGY NO
[2018-07-21 13:07] LABS: Vitamin D,25 Hydroxy 25.6 ng/mL (29.95-100.01)
[2018-07-21 13:15] LABS: ALB/GLOB Ratio 0.8 RATIO (0.9-2.4); AST(SGOT) 21 U/L (15-37); Alanine Aminotransfer ALT/SGPT 12 U/L (13-56); Albumin, Serum 3.2 g/dL (3.2-5.0); Alkaline Phosphatase 76 U/L (45-117); Anion Gap 5 (5-15); BUN 32 mg/dL (7-18); BUN/Creat Ratio 11.6 RATIO (10-20); Calcium,Total 8.2 mg/dL (8.5-10.1); Chloride 112 mmol/L (98-107); Creatinine, Serum 2.77 mg/dL (0.55-1.02); EST Glomerular Filtration Rate 17 mL/min (>60); Est Glom Filt Rate - Afr Amer 21 mL/min (>60); Globulin 3.9 g/dL (2.2-4.2); Glucose 110 mg/dL (74-106); Potassium 3.7 mmol/L (3.5-5.1); Protein, Total 7.1 g/dL (6.4-8.2); Sodium Level 140 mmol/L (136-145); Thyroid Stim Hormone (TSH) 0.26 uIU/mL (0.358-3.74)
== END ==
PROVIDERS: Family Provider Family Medicine Geriatric Medicine; PCP Family Medicine Geriatric Medicine; Visit Provider Family Medicine Geriatric Medicine
DX: I10 Essential (primary) hypertension (principal); E55.9 Vitamin D deficiency, unspecified
CPT/HCPCS: 36415; 80053; 82306; 84443; 85025

== ENCOUNTER → 2018-10-30 13:43 | Outpatient (CLI) | payer MEDICARE, SELFPAY ==
[2018-10-20 14:08] VITALS: BMI 29.2
[2018-10-30 14:06] LABS: Absolute Lymphocyte Count 2.47 X10^3/ul (0.83-4.51); Absolute Neutrophil Count 4.1 X10^3/uL (2.0-7.7); Basophil# 0.08 X10^3/uL; Basophil% 1.1 % (0-1); Eosinophil# 0.13 X10^3/uL; Eosinophils% 1.8 % (0-5); Hematocrit 32.2 % (37-47); Hemoglobin 9.7 g/dl (12.0-15.0); Lymphocyte # 2.47 X10^3/ul (4.0); Lymphocyte % 33.4 % (19-41); Mean Corp Hgb Conc 30.1 g/gl (32-36); Mean Corpuscular Hgb 25.8 pg (27.0-32.0); Mean Corpuscular Volume 85.6 fL (81-99); Mean Platelet Vol. 11.2 fl (6.2-12.0); Monocyte# 0.59 X10^3/uL; Neutrophil # 4.12 X10^3/uL (2.7-7.7); Neutrophil % 55.6 % (47-70); Platelet Count 190 K/mm3 (150-450); RBC Distribution Width CV 14.1 % (11.6-14.6); RBC Distribution Width SD 44.1 fl (35.1-43.9); Red Blood Count 3.76 M/mm3 (4.2-5.4); White Blood Count 7.4 K/mm3 (4.4-11.0)
[2018-10-30 14:09] LABS: POSITIVE COUNT NO; POSITIVE DIFFERENTIAL NO; POSITIVE MORPHOLOGY NO
[2018-10-30 14:31] LABS: ALB/GLOB Ratio 0.8 RATIO (0.9-2.4); AST(SGOT) 17 U/L (15-37); Alanine Aminotransfer ALT/SGPT < 6 U/L (13-56); Albumin, Serum 3.3 g/dL (3.2-5.0); Alkaline Phosphatase 87 U/L (45-117); Anion Gap 8 (5-15); BUN 36 mg/dL (7-18); BUN/Creat Ratio 9.1 RATIO (10-20); Calcium,Total 8.6 mg/dL (8.5-10.1); Chloride 111 mmol/L (98-107); Creatinine, Serum 3.97 mg/dL (0.55-1.02); EST Glomerular Filtration Rate 12 mL/min (>60); Est Glom Filt Rate - Afr Amer 14 mL/min (>60); Glucose 85 mg/dL (74-106); Protein, Total 7.3 g/dL (6.4-8.2); Sodium Level 140 mmol/L (136-145); Thyroid Stim Hormone (TSH) 0.05 uIU/mL (0.358-3.74)
== END ==
PROVIDERS: Family Provider Family Medicine Geriatric Medicine; PCP Family Medicine Geriatric Medicine; Visit Provider Family Medicine Geriatric Medicine
DX: E03.9 Hypothyroidism, unspecified (principal); F05 Delirium due to known physiological condition; R33.9 Retention of urine, unspecified; R51 Headache; Z86.73 Personal history of transient ischemic attack (TIA), and cerebral infarction without residual deficits
CPT/HCPCS: 36415; 70450; 80053; 84443; 85025; 87086

== ENCOUNTER → 2018-10-30 14:58 | Outpatient (CLI) | payer MEDICARE, SELFPAY ==
[2018-10-20 14:08] VITALS: BMI 29.2
--- NOTE | 2018-10-30 15:04 | CT_ITS ---
STUDY: CT BRAIN WITHOUT CONTRAST REASON FOR EXAM: Female, 83 years old. Stroke. Headache. RADIATION DOSAGE (If Supplied By Facility): CTDIvol = ( 60.81 ) mGy, DLP = ( 1021.47 ) mGycm TECHNIQUE: Transaxial CT imaging of the brain was performed without administration of intravenous contrast material. Individualized dose optimization techniques were used for this CT. COMPARISON: CT scan 01/29/2018, MRI 01/29/2018. FINDINGS: Normal soft tissue structures. Normal calvarium. Encephalomalacia seen in the right occipital lobe, in the left temporal lobe, from previous infarcts. Bilateral lacunar infarcts. Mild diffuse atrophy. Mild diffuse chronic white matter disease. Symmetric ventricles. No midline shift. No evidence for hemorrhage, acute infarct, mass or mass effect. Grossly normal orbits. There is mucoperiosteal inflammatory disease of the paranasal sinuses consistent with mild chronic sinusitis. CT/Brain/Head without Contrast IMPRESSION: No definite acute abnormality. Atrophy, white matter disease, and old infarcts. Electronically Signed: Manuel Raymond MD at 17:53 EDT , Service support ,
== END ==
PROVIDERS: Family Provider Family Medicine Geriatric Medicine; PCP Family Medicine Geriatric Medicine; Referring Provider Family Medicine Geriatric Medicine; Visit Provider Family Medicine Geriatric Medicine
DX: R51 Headache (principal); Z86.73 Personal history of transient ischemic attack (TIA), and cerebral infarction without residual deficits; R33.9 Retention of urine, unspecified
CPT/HCPCS: 70450; 87086

== ENCOUNTER → 2018-10-31 12:09 | Outpatient (CLI) | payer MEDICARE, SELFPAY ==
[2018-10-20 14:08] VITALS: BMI 29.2
[2018-10-31 13:19] LABS: Anion Gap 7 (5-15); BUN 34 mg/dL (7-18); BUN/Creat Ratio 9.2 RATIO (10-20); Calcium,Total 8.2 mg/dL (8.5-10.1); Chloride 118 mmol/L (98-107); Creatinine, Serum 3.69 mg/dL (0.55-1.02); EST Glomerular Filtration Rate 13 mL/min (>60); Est Glom Filt Rate - Afr Amer 15 mL/min (>60); Glucose 85 mg/dL (74-106); Sodium Level 141 mmol/L (136-145)
--- NOTE | 2018-10-31 13:20 | US_ITS ---
STUDY: RENAL ULTRASOUND - COMPLETE REASON FOR EXAM: Female, 83 years old. Acute kidney failure. TECHNIQUE: Ultrasound evaluation of the kidneys was performed with real-time and static corley-scale imaging. COMPARISON: CT scan 01/20/18 FINDINGS: RIGHT KIDNEY: Normal location of the right kidney, which is normal in size. The right kidney measures 10.7 x 5.6 x 5.8 cm. There is a normal cortex of the right kidney. The renal cortex measures 1.5 cm. There is a 4.7 cm complex cystic and solid mass in the mid right kidney. This will need further evaluation. Numerous right renal cysts are seen. The 3 largest measure 2.2, 2.6, and 3.1 cm. There are no right renal calculi. There is no right hydronephrosis. DISTAL RIGHT URETER: There is non-visualization of the distal right ureter. There is no demonstrated right ureterovesical junction calculus. There is no demonstrated right ureteral jet. LEFT KIDNEY: Normal location of the left kidney, which is normal in size. The left kidney measures 12.0 x 5.4 x 5.7 cm. There is a normal cortex of the left kidney. The renal cortex measures 1.3 cm. There is a 3.4 cm cystic and solid mass in the mid left kidney. This will need further evaluation. Numerous left renal cysts are seen. The 2 largest measure 3.2 and 3.9 cm. There are no left renal calculi. There is no left hydronephrosis. DISTAL LEFT URETER: There is non-visualization of the distal left ureter. There is no demonstrated left ureterovesical junction calculus. There is no demonstrated left ureteral jet. BLADDER: There is a Hernandez catheter emptying the bladder. US/Kidney and Bladder IMPRESSION: Numerous bilateral renal cysts. However both kidneys also have complex cysts and/or masses, as above, which need further evaluation with noncontrast CT. No hydronephrosis on either side. Electronically Signed: Manuel Raymond MD at 21:11 EDT , Service support ,
--- NOTE | 2018-10-31 14:07 | MRI_ITS ---
STUDY: MRI BRAIN WITHOUT CONTRAST REASON FOR EXAM: Female, 83 years old. Left facial numbness TECHNIQUE: Standardized multiplanar fat and water weighted pulse sequences were obtained. COMPARISON: CT head 10/30/2018. FINDINGS: There is mild cerebral atrophy with widening of the extra-axial spaces and ventricular dilatation. There are multiple white matter hyperintensities, distributed throughout the deep white matter tracts of the cerebral hemispheres, consistent with moderate chronic white matter ischemic changes. There is no evidence for recent intracranial ischemia or other cause of cytotoxic edema on diffusion weighted imaging (DWI). 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 Normal bilateral basal ganglia. Normal thalami. There is no extra-axial fluid accumulation. Normal flow voids within the major intracranial circulation suggesting patency by spin echo criteria. Normal sella turcica, pituitary gland, infundibular stalk, optic chiasm and hypothalamus. Normal tectal plate and pineal gland. Normal midbrain, bree and medulla. Normal cerebellum. Normal basal cisterns. Normal bilateral temporal bones. Normal bilateral internal auditory canals. No demonstrated orbital abnormality, within the constraints of a routine brain study. Normal visualized paranasal sinuses. Normal calvarium and skull base. Normal visualized soft tissue structures. Normal visualized upper cervical spine. MRI/Brain without Contrast IMPRESSION: Involutional changes of the brain, as described above. Electronically Signed: Hernandez Tovar, at 16:23 EDT Tel , Service support ,
== END ==
PROVIDERS: Family Provider Family Medicine Geriatric Medicine; PCP Family Medicine Geriatric Medicine; Referring Provider Family Medicine Geriatric Medicine; Visit Provider Family Medicine Geriatric Medicine
DX: N17.9 Acute kidney failure, unspecified (principal); R47.89 Other speech disturbances; Z86.73 Personal history of transient ischemic attack (TIA), and cerebral infarction without residual deficits
CPT/HCPCS: 36415; 70551; 76770; 80048

== ENCOUNTER → 2018-11-01 16:12 | Outpatient (CLI) | payer MEDICARE, SELFPAY ==
[2018-10-20 14:08] VITALS: BMI 29.2
--- NOTE | 2018-11-01 16:35 | CT_ITS ---
STUDY: CT ABDOMEN AND PELVIS WITHOUT CONTRAST REASON FOR EXAM: Female, 83 years old. Metastatic renal cell carcinoma RADIATION DOSAGE (If Supplied By Facility): CTDIvol = ( 6.46 ) mGy, DLP = ( 314.88 ) mGycm TECHNIQUE: Transaxial images were obtained from the dome of the diaphragm to the symphysis pubis without oral contrast, and without intravenous contrast. Sagittal and coronal images were reconstructed. Individualized dose optimization techniques were used for this CT. COMPARISON: 01/20/2018 FINDINGS: No change in the 2 cm noncalcified nodule right lower lobe the lungs consistent with known metastatic disease. The visualized portions of the heart are within normal limits. No change in the 7 cm cyst in lateral segment the left lobe of the liver. Normal gallbladder and extrahepatic biliary system. Normal spleen. Normal pancreas. Normal bilateral adrenal glands. Multiple masses of both kidneys most of which are likely cysts but solid mass cannot be excluded. There is no change in the appearance of the kidneys when compared with the prior study. Normal visualized stomach. Normal small intestine. There are multiple colonic diverticula consistent with diverticulosis. The appendix is visualized and appears normal. Normal abdominal aorta. Normal inferior vena cava. Normal retroperitoneum. Hernandez catheter within the bladder. Normal abdominal wall. There are diffuse degenerative changes of the visualized lumbar spine. CT/Abdomen/Pelvis without Cont IMPRESSION: No change from 01/20/2018 with multiple bilateral renal masses some of which are cysts. Electronically Signed: Steve Pelayo MD at 17:38 EDT Tel , Service support ,
[2018-11-01 16:57] LABS: Anion Gap 9 (5-15); BUN 37 mg/dL (7-18); BUN/Creat Ratio 10.4 RATIO (10-20); Calcium,Total 8.3 mg/dL (8.5-10.1); Chloride 125 mmol/L (98-107); Creatinine, Serum 3.55 mg/dL (0.55-1.02); EST Glomerular Filtration Rate 13 mL/min (>60); Est Glom Filt Rate - Afr Amer 16 mL/min (>60); Glucose 75 mg/dL (74-106); Potassium 6.3 mmol/L (3.5-5.1); Sodium Level 147 mmol/L (136-145)
== END ==
PROVIDERS: Family Provider Family Medicine Geriatric Medicine; PCP Family Medicine Geriatric Medicine; Referring Provider Family Medicine Geriatric Medicine; Visit Provider Family Medicine Geriatric Medicine
DX: C64.9 Malignant neoplasm of unspecified kidney, except renal pelvis (principal); N28.9 Disorder of kidney and ureter, unspecified
CPT/HCPCS: 36415; 74176; 80048

== ENCOUNTER → 2018-11-02 15:01 | Outpatient (CLI) | payer MEDICARE, SELFPAY ==
[2018-10-20 14:08] VITALS: BMI 29.2
[2018-11-02 15:52] LABS: Anion Gap 5 (5-15); BUN 36 mg/dL (7-18); BUN/Creat Ratio 10.2 RATIO (10-20); Calcium,Total 8.2 mg/dL (8.5-10.1); Chloride 115 mmol/L (98-107); Creatinine, Serum 3.54 mg/dL (0.55-1.02); EST Glomerular Filtration Rate 13 mL/min (>60); Est Glom Filt Rate - Afr Amer 16 mL/min (>60); Glucose 118 mg/dL (74-106); Potassium 4.5 mmol/L (3.5-5.1); Sodium Level 140 mmol/L (136-145)
== END ==
LOC: POLAB3 15:05
PROVIDERS: Family Provider Family Medicine Geriatric Medicine; PCP Family Medicine Geriatric Medicine; Visit Provider Family Medicine Geriatric Medicine
DX: N17.9 Acute kidney failure, unspecified (principal)
CPT/HCPCS: 36415; 80048

== ENCOUNTER → 2018-11-06 15:27 | Outpatient (CLI) | payer MEDICARE, SELFPAY ==
[2018-10-20 14:08] VITALS: BMI 29.2
[2018-11-06 18:13] LABS: Anion Gap 6 (5-15); BUN 35 mg/dL (7-18); BUN/Creat Ratio 9.9 RATIO (10-20); Calcium,Total 8.2 mg/dL (8.5-10.1); Chloride 110 mmol/L (98-107); Creatinine, Serum 3.55 mg/dL (0.55-1.02); EST Glomerular Filtration Rate 13 mL/min (>60); Est Glom Filt Rate - Afr Amer 16 mL/min (>60); Glucose 86 mg/dL (74-106); Potassium 4.8 mmol/L (3.5-5.1); Sodium Level 139 mmol/L (136-145)
== END ==
LOC: POLAB3 15:28
PROVIDERS: Family Provider Family Medicine Geriatric Medicine; PCP Family Medicine Geriatric Medicine; Visit Provider Family Medicine Geriatric Medicine
DX: N17.9 Acute kidney failure, unspecified (principal)
CPT/HCPCS: 36415; 80048

== ENCOUNTER → 2018-11-15 14:48 | Outpatient (CLI) | payer MEDICARE, SELFPAY ==
[2018-10-20 14:08] VITALS: BMI 29.2
[2018-11-15 17:32] LABS: Absolute Lymphocyte Count 2.27 X10^3/ul (0.83-4.51); Absolute Neutrophil Count 3.8 X10^3/uL (2.0-7.7); Basophil# 0.07 X10^3/uL; Eosinophil# 0.16 X10^3/uL; Eosinophils% 2.3 % (0-5); Hematocrit 29.8 % (37-47); Hemoglobin 9.3 g/dl (12.0-15.0); Lymphocyte # 2.27 X10^3/ul (4.0); Lymphocyte % 32.6 % (19-41); Mean Corp Hgb Conc 31.2 g/gl (32-36); Mean Corpuscular Hgb 26.1 pg (27.0-32.0); Mean Corpuscular Volume 83.7 fL (81-99); Mean Platelet Vol. 11.3 fl (6.2-12.0); Monocyte# 0.65 X10^3/uL; Monocyte% 9.3 % (0-10); Neutrophil # 3.81 X10^3/uL (2.7-7.7); Neutrophil % 54.7 % (47-70); Platelet Count 240 K/mm3 (150-450); RBC Distribution Width CV 14.1 % (11.6-14.6); RBC Distribution Width SD 42.9 fl (35.1-43.9); Red Blood Count 3.56 M/mm3 (4.2-5.4)
[2018-11-15 17:38] LABS: POSITIVE COUNT NO; POSITIVE DIFFERENTIAL NO; POSITIVE MORPHOLOGY NO
[2018-11-15 17:48] LABS: Anion Gap 9 (5-15); BUN 34 mg/dL (7-18); BUN/Creat Ratio 8.5 RATIO (10-20); Calcium,Total 8.9 mg/dL (8.5-10.1); Chloride 108 mmol/L (98-107); Creatinine, Serum 4.01 mg/dL (0.55-1.02); EST Glomerular Filtration Rate 11 mL/min (>60); Est Glom Filt Rate - Afr Amer 14 mL/min (>60); Glucose 79 mg/dL (74-106); Potassium 4.5 mmol/L (3.5-5.1); Sodium Level 137 mmol/L (136-145)
== END ==
LOC: POLAB3 14:49
PROVIDERS: Family Provider Family Medicine Geriatric Medicine; PCP Family Medicine Geriatric Medicine; Visit Provider Family Medicine Geriatric Medicine
DX: N17.9 Acute kidney failure, unspecified (principal)
CPT/HCPCS: 36415; 80048; 85025

== ENCOUNTER → 2018-11-21 10:15 | Outpatient (CLI) | payer MEDICARE, SELFPAY ==
[2018-10-20 14:08] VITALS: BMI 29.2
[2018-11-21 12:49] LABS: Hematocrit 27.3 % (37-47); Hemoglobin 8.6 g/dl (12.0-15.0); Mean Corp Hgb Conc 31.5 g/gl (32-36); Mean Corpuscular Hgb 26.5 pg (27.0-32.0); Mean Platelet Vol. 11.7 fl (6.2-12.0); Platelet Count 226 K/mm3 (150-450); RBC Distribution Width CV 14.3 % (11.6-14.6); RBC Distribution Width SD 43.5 fl (35.1-43.9); Red Blood Count 3.25 M/mm3 (4.2-5.4); White Blood Count 6.2 K/mm3 (4.4-11.0)
[2018-11-21 12:51] LABS: Scan Indicated on CBC? Y/N NO
[2018-11-21 13:04] LABS: Ferritin 77 ng/mL (8-252); Iron 44 ug/dL (50-170); Iron Binding Capacity,Total 213 ug/dL (250-450)
== END ==
LOC: POLAB3 10:16
PROVIDERS: Family Provider Family Medicine Geriatric Medicine; PCP Family Medicine Geriatric Medicine; Visit Provider Internal Medicine Nephrology
DX: N18.5 Chronic kidney disease, stage 5 (principal); D63.8 Anemia in other chronic diseases classified elsewhere
CPT/HCPCS: 36415; 82728; 83540; 83550; 85027

== ENCOUNTER → 2018-12-21 12:20 | Outpatient (CLI) | payer MEDICARE, SELFPAY ==
[2018-10-20 14:08] VITALS: BMI 29.2
[2018-12-21 13:28] LABS: 24HR. UA Prot. Total Volume 1800 mL; 24HR. Urine Creatinine 0.96 g/24 HR (0.70-1.90); Urine Protein (24 Hour) 214.5 mg/dL (<11.9)
== END ==
PROVIDERS: Family Provider Family Medicine Geriatric Medicine; PCP Family Medicine Geriatric Medicine; Visit Provider Internal Medicine Nephrology
DX: N18.5 Chronic kidney disease, stage 5 (principal); E55.9 Vitamin D deficiency, unspecified; D63.8 Anemia in other chronic diseases classified elsewhere
CPT/HCPCS: 82570; 84156

== ENCOUNTER → 2019-01-02 10:25 | Outpatient (CLI) | payer MEDICARE, SELFPAY ==
[2018-10-20 14:08] VITALS: BMI 29.2
--- NOTE | 2019-01-02 10:28 | VDUE_ITS ---
Reason For Study: CKD Left Arm Left cephalic vein is compressible. Left Cephalic Vein at the shoulder measures .12 x .13 cm. Left Cephalic Vein at mid bicep measures .14 x .15 cm. Left Cephalic Vein above antecub measures .16 x .16 cm. Left Cephalic Vein below antecub measures .08 x .11 cm. Left Cephalic Vein in the forearm measures .08 x .12 cm. Left Cephalic Vein at the wrist measures .08 x .1 cm. Left basilic vein is compressible. Basilic vein at origin measures .58 x .56 cm. Basilic vein above antecub measures .18 x .2 cm. Basilic vein below antecub measures .08 x .09 cm. Basilic vein in the forearm measures .06 x .07 cm. Basilic vein at the wrist measures .09 x .11 cm. Brachial Art .44 x .48 cm. Brachial Art 82.9 cm/s. Radial Art .2 x .24 cm. Radial Art 85.5 cm/s. Interpretation Summary Diminutive cephalic vein throughout Borderline left upper arm basilic vein Adequate diameter left brachial artery and small left radial artery. Ordering Physician: Kianna Patrick Performed By: Sergo Viera RVT ?
--- NOTE | 2019-01-10 15:20 | VDUE_ITS ---
Reason For Study: Chronic kidney disease stage 5 Right Arm Right Cephalic Vein at the wrist measures 0.07 x 0.08 cm. Right Cephalic Vein in the forearm measures 0.09 x 0.08 cm. Right Cephalic Vein below antecub measures 0.12 x 0.14 cm. Right Cephalic Vein above antecub measures 0.10 x 0.11 cm. Right Cephalic Vein mid bicep measures 0.09 x 0.09 cm. Right Cephalic Vein at the shoulder measures 0.08 x 0.10 cm. Right Basilic Vein at the origin measures 0.51 x 0.52 cm. Right Basilic Vein mid bicep measures 0.37 x 0.39 cm. Right Basilic Vein above antecub measures 0.22 x 0.22 cm. Right Brachial artery measures 0.44 x 0.46 cm with a velocity of 134 cm/sec. Right Radial artery measures 0.23 x 0.26 cm with a velocity of 111.1 cm/sec. Interpretation Summary Diminutive right upper extremity cephalic vein throughout. Adequate right upper arm basilic vein, patent and compressible Normal diameter right brachial and radial arteries. Ordering Physician: Kianna Patrick Referring Physician: Wayne Leahy Chi Performed By: Tamiko Arzate RVT ?
== END ==
PROVIDERS: Family Provider Family Medicine Geriatric Medicine; PCP Family Medicine Geriatric Medicine; Referring Provider Internal Medicine Nephrology; Visit Provider Internal Medicine Nephrology
DX: Z01.818 Encounter for other preprocedural examination (principal); N18.5 Chronic kidney disease, stage 5; N39.0 Urinary tract infection, site not specified
CPT/HCPCS: 87086; 93971; 93990; G0365

== ENCOUNTER 2019-01-12 10:12 | Inpatient (IN) | payer MEDICARE, SELFPAY ==
[2019-01-10 14:40] VITALS: BMI 29.0
[2019-01-12] VITALS (43 sets, daily range): BP systolic 128–175; BP diastolic 69–129; PULSE 69–95; RESP 11–27; TEMP 36–37.2; O2SAT 96–100; BMI 32.9; BMI 29.5
--- NOTE | 2019-01-12 10:21 | EKG12_ITS ---
Test Reason : SOB Blood Pressure : / mmHG Vent. Rate : 068 BPM Atrial Rate : 068 BPM P-R Int : 158 ms QRS Dur : 070 ms QT Int : 396 ms P-R-T Axes : 051 -23 -22 degrees QTc Int : 421 ms Normal sinus rhythm Low voltage QRS Septal infarct , age undetermined Inferior infarct , age undetermined Abnormal ECG Confirmed by ROHITH SALMON, JOSE ELIAS ([id number]), dictionary editor RICHIE PARK ([id number]) on 01/15/2019 11:59:06 AM Referred By: Cristofer Rios Confirmed By:JOSE ELIAS NEWBERRY MD
--- NOTE | 2019-01-12 10:22 | ED.VIS.GEN ---
History of Present Illness Chief Complaint: Shortness of Breath Informant: Patient, - - Caregiver Limited by: Uncooperative Onset: - - Uncertain Context: - - Unable to determine Timing: Continuous Quality: Hoarse voice, difficulty breathing Location: Not applicable Current Severity: Moderate Maximum Severity: Moderate Worsened by: Possibly activity Relieved by: Nothing Associated Symptoms: No rash or itching Narrative: Patient is an 83-year-old woman who is not a good informant because of lack of cooperation. She requested I contact Dr. Leahy to answer my questions. She has a hoarse voice. She is in respiratory distress. She has paradoxical breathing. There is audible stridor. There is evidence of swelling of her lip. She is not on SUBHA inhibitor. She lists lisinopril as allergy. Patient has facial swelling lower lip swelling that is new per caregiver, son. She does have a cough. She nodded no to productive cough. Prior similar symptoms: Yes Recent Illness/Hospitalization: No - Past Medical History (1) Iron deficiency Status: Chronic (2) CVA (cerebral infarction) Status: Acute Comment: MRI Brain w/ multiple acute infarcts involving right insular cortex, right fleming radiata and frontal lobe, mild involutional changes of the brain, prior old infarcts noted. MRA Head w/ hemodynamically significant stenosis of the L P1, P2, P3 branches, no evidence of aneurysms, otherwise normal appearing [place] of [place]. MRA Neck limited study, f/u Carotid US with noted mild-moderate disease, no acute disease or narrowing. (3) Cough Status: Acute (4) Speech apraxia Status: Acute (5) Chronic renal failure, stage 4 (severe) Status: Chronic (6) Glaucoma Status: Chronic (7) Hyperlipidemia Status: Chronic (8) Hypertension Status: Chronic (9) Obesity (BMI 30.0-34.9) Status: Chronic Past Medical History - Allergies and Home Meds Allergies/Adverse Reactions: Allergies erythromycin base Allergy (Verified 01/10/19 14:39) Rash lisinopril Allergy (Verified 01/10/19 14:39) Unknown NSAIDS (Non-Steroidal Anti-Inflamma Allergy (Verified 01/10/19 14:39) Other Salicylates Allergy (Verified 01/10/19 14:39) Other PROTEIN IN URINE DRUG Allergy (Uncoded 01/10/19 14:39) Other Primary Care Physician: Wayne Leahy Chi, MD [Primary Care Provider] - Prior records reviewed: Yes Surgical History: cataract, hysterectomy, - - Leg tumor removed, unclear. Foot surgery, neck surgery-type unknown Lives: With Family, - Smoking Status: Never smoker Alcohol: None Drugs: None - Family History Maternal Family History: Family History (Last Reviewed 01/10/19 @ 14:39 by Jayleen Arias) Mother Colon cancer Hypertension Father Hypertension Family History: Reports: Hypertension Paternal Family History: Family History (Last Reviewed 01/10/19 @ 14:39 by Jayleen Arias) Mother Colon cancer Hypertension Father Hypertension Family History: Reports: Hypertension Review of Systems ROS: Unable to Obtain - Due to respiratory distress and lack of patient's cooperation General: Denies: Chills, Fever Eyes: Denies: Visual changes - bilaterally, Blurred Vision - bilaterally ENT: Reports: Sore throat. Denies: Rhinorrhea Cardiovascular: Denies: Chest pain, Palpitations Respiratory: Reports: Dyspnea, Cough - Old records patient has history of chronic cough, Dyspnea on exertion. Denies: Sputum Gastrointestinal: Denies: Vomiting, Diarrhea Genitourinary: Denies: Dysuria, Hematuria, Frequency Musculoskeletal: Denies: Myalgias, Arthralgias, Neck pain, Back pain, Swelling, Extremity Pain, -, - Skin: Denies: Rash Neurological: Reports: Weakness. Denies: Headache, Parasthesia, Numbness Hematologic: Denies: Easy bruising, Easy bleeding Physical Exam Vital Signs/Narrative: Vital Signs Temp Pulse Resp BP Pulse Ox 01/12/19 10:13 98.1 F 72 24 H 161/129 H 100 Inital Vital Signs reviewed: Yes - Is breathing much more rapidly at 24. General: Well nourished, Well developed, Acute Distress Eyes: Perrl, EOMI, Pale conjunctiva, - - There is periorbital edema. Negative for: Scleral icterus ENT: Moist mucous membranes, No rhinorrhea, TM's clear, - - There is swelling of the lower lip. There is no swelling of the uvula or tongue. Tongue appears pale. Gums appear pale. Neck: Supple, Nontender, No lymphadenopathy, No JVD, - - He has midline. There is inspiratory and expiratory stridor Cardiovascular: Regular rate, Regular rhythm, No murmurs, Normal S1, Normal S2 Respiratory: Diminished, Decreased Air Movement. Negative for: No distress, CTA bilaterally Abdomen: Soft, Nontender, Nondistended, Normal bowel sounds Rectal: Deferred Back: Nontender, Normal Inspection. Negative for: CVA tenderness Extremities: Nontender Skin: Normal color, No rash, No Trauma. Negative for: Cyanosis, Diaphoresis, Jaundice Neurological: Alert, Oriented x3, Cranial nerves II-XII grossly intact, Normal Strength, Normal Sensation Psychological: Depressed Diagnostic/Tx/Re-eval Chest X-Ray - ED: 1 View - Critical care time 47 minutes., 2 View, Read by ED Physician, - - No view portable x-ray of the chest reveals cardiomegaly, obscuring the right hemidiaphragm and findings consistent with congestion/congestive heart failure. Two-view soft tissue x-ray of the neck reveals no evidence of epiglottitis. There is no prevertebral space widening. There is no sublingual lymphadenopathy noted. There is no acute process noted. Impressions Chest X-Ray 01/12/19 11:07 IMPRESSION: Mild to moderate CHF new since prior. Mild to moderate bibasilar subsegmental atelectasis versus infiltrate. Electronically Signed: Dl Stevens MD at 11:37 EDT Tel [phone], Service support , Soft Tissue Neck X-Ray 01/12/19 11:15 IMPRESSION: Unremarkable x-ray examination of soft tissue neck. Electronically Signed: Dl Stevens MD at 11:44 EDT Tel [phone], Service support , 01/12/19 11:07 Chest 1 View (Portable) [RAD] Stat 01/12/19 11:15 Xray Neck Soft Tissue [Neck for Soft Tissue] [RAD] Stat Laboratory Results 01/12/19 01/12/19 01/12/19 10:35 10:35 10:35 WBC 7.2 RBC 3.17 L Hgb 8.0 L Hct 26.9 L MCV 84.9 MCH 25.2 L MCHC 29.7 L RDW Std Deviation 47.8 H RDW Coeff of Lizett 15.4 H Plt Count 200 MPV 12.2 H Immature Gran % (Auto) 0.400 Neut % (Auto) 60.4 Lymph % (Auto) 23.3 [place] % (Auto) 8.6 Eos % (Auto) 6.0 H Baso % (Auto) 1.3 H Absolute Neuts (auto) 4.3 Absolute Lymphs (auto) 1.67 Nucleated RBC % 0 Differential Comment COMMENT Specimen Type Sample Site pH Bicarbonate Actual POC Total CO2 Base Excess O2 Saturation ABG pCO2 ABG pO2 Min Test O2 Delivery Device Liter Flow Blood Gas Notified Whom Blood Gas Notified Time Sodium 142 Potassium 4.7 Chloride 112 H Carbon Dioxide 22.0 Anion Gap 8 BUN 50 H Creatinine 6.18 H Estim Creat Clear Calc 5.30 Est GFR (MDRD) Af Amer 8 L Est GFR (MDRD) Non-Af 7 L BUN/Creatinine Ratio 8.1 L Glucose 106 Calcium 8.4 L Total Bilirubin 0.50 AST 73 H ALT 59 H Alkaline Phosphatase 152 H Troponin I 0.072 H B-Natriuretic Peptide Total Protein 7.7 Albumin 3.5 Globulin 4.2 Albumin/Globulin Ratio 0.8 L POC Glucose 01/12/19 01/12/19 01/12/19 10:35 10:39 12:27 WBC RBC Hgb Hct MCV MCH MCHC RDW Std Deviation RDW Coeff of [place] Plt Count MPV Immature Gran % (Auto) Neut % (Auto) Lymph % (Auto) [place] % (Auto) Eos % (Auto) Baso % (Auto) Absolute Neuts (auto) Absolute Lymphs (auto) Nucleated RBC % Differential Comment Specimen Type ART Sample Site R Radial pH 7.30 L Bicarbonate Actual 20.4 L POC Total CO2 22 Base Excess -6 L O2 Saturation 99 ABG pCO2 42.0 ABG pO2 152 H Min Test POS O2 Delivery Device Nasal Can Liter Flow 6.0 Blood Gas Notified Whom ED MD Blood Gas Notified Time 1223 Sodium Potassium Chloride Carbon Dioxide Anion Gap BUN Creatinine Estim Creat Clear Calc Est GFR (MDRD) Af Amer Est GFR (MDRD) Non-Af BUN/Creatinine Ratio Glucose Calcium Total Bilirubin AST ALT Alkaline Phosphatase Troponin I B-Natriuretic Peptide 335.5 H Total Protein Albumin Globulin Albumin/Globulin Ratio POC Glucose 104 White count is normal. Patient is anemic with a hemoglobin 8.0. Son states she is scheduled for an iron infusion on Tuesday. BNP is elevated at 335.5. Troponin is indeterminate at 0.072. - EKG Initial EKG Interpretation: Sinus Rhythm - Ventricular rate is 68. DC interval is 108 ms. QRS duration 70 ms. QT duration 396 ms. There is decreased anterior force. There is artifact. - Medical Decision Making Patient has angioedema. Causes uncertain. She also has respiratory distress. To evaluate her symptoms and soft tissue x-ray of the neck and chest were obtained. A C1 esterase inhibitor level was obtained since she is on no SUBHA inhibitor ARB. She received racemic epinephrine and Solu-Medrol. Baseline blood work was obtained. And to assess renal function, hemoglobin and white count. History of iron deficiency anemia, renal disease. Nurse informed me at 1205 the patient feels more short of breath. She was reexamined. Her breathing is more labored. With findings on chest x-ray consistent with CHF, labored breathing troponin and BNP was ordered. BiPAP was ordered as well as nitroglycerin drip for preload reduction. Patient also received IV Lasix. EEG reveals a metabolic acidosis. Since she is tachypnic her CO2 is higher than one would expect and there may be a component of respiratory acidosis as well. Patient has improved after initiation of treatment i.e. Lasix, nitro drip for preload reduction and BiPAP. Hospitalist has been called for admission. - Critical Care Time Critical care time (excluding procedures): 30-74 minutes, Discussing w/Patient &/or Family/[employer], Discussing w/Consultants, Arranging Admission or Transfer, Performing Direct Patient Care at Bedside ED Disposition - Plan for ED Patient: Disposition: Acute Care Hospital [facility] Diagnosis: Acute respiratory failure with hypoxia, Metabolic acidosis, Congestive heart failure, Anemia, unspecified, Elevated troponin I level, Chronic renal failure, stage 4 (severe) Referrals: Wayne Leahy Chi, MD [Primary Care Provider] -
[2019-01-12 10:49] LABS: Absolute Lymphocyte Count 1.67 X10^3/uL (0.83-4.51); Absolute Neutrophil Count 4.3 X10^3/uL (2.0-7.7); Basophil# 0.09 X10^3/uL; Basophil% 1.3 % (0-1); Eosinophil# 0.43 X10^3/uL; Hematocrit 26.9 % (37-47); Lymphocyte # 1.67 X10^3/ul (4.0); Lymphocyte % 23.3 % (19-41); Mean Corp Hgb Conc 29.7 g/dL (32-36); Mean Corpuscular Hgb 25.2 pg (27.0-32.0); Mean Corpuscular Volume 84.9 fL (81-99); Mean Platelet Vol. 12.2 fl (6.2-12.0); Monocyte# 0.62 X10^3/uL; Monocyte% 8.6 % (0-10); NRBC Flagged by Analyzer 0 % (0-5); Neutrophil # 4.34 X10^3/uL (2.7-7.7); Neutrophil % 60.4 % (47-70); POSITIVE COUNT YES; Platelet Count 200 K/mm3 (150-450); RBC Distribution Width CV 15.4 % (11.6-14.6); RBC Distribution Width SD 47.8 fl (35.1-43.9); Red Blood Count 3.17 M/mm3 (4.2-5.4); White Blood Count 7.2 K/mm3 (4.4-11.0)
[2019-01-12 10:51] LABS: Bedside Glucose 104 mg/dL (70-110)
[2019-01-12 10:58] LABS: ALB/GLOB Ratio 0.8 RATIO (0.9-2.4); AST(SGOT) 73 U/L (15-37); Alanine Aminotransfer ALT/SGPT 59 U/L (13-56); Albumin, Serum 3.5 g/dL (3.2-5.0); Alkaline Phosphatase 152 U/L (45-117); Anion Gap 8 (5-15); BUN 50 mg/dL (7-18); BUN/Creat Ratio 8.1 RATIO (10-20); Calcium,Total 8.4 mg/dL (8.5-10.1); Chloride 112 mmol/L (98-107); Creatinine, Serum 6.18 mg/dL (0.55-1.02); EST Glomerular Filtration Rate 7 mL/min (>60); Est Glom Filt Rate - Afr Amer 8 mL/min (>60); Globulin 4.2 g/dL (2.2-4.2); Glucose 106 mg/dL (74-106); Potassium 4.7 mmol/L (3.5-5.1); Protein, Total 7.7 g/dL (6.4-8.2); Sodium Level 142 mmol/L (136-145)
[2019-01-12] MEDS: MethylPREDNISolone 125 MG/2 ML Vial IV (11:04)
--- NOTE | 2019-01-12 11:07 | RAD_ITS ---
STUDY: X-RAY CHEST REASON FOR EXAM: Female, 83 years old. Shortness of breath with COPD TECHNIQUE: Single AP portable view of the chest. COMPARISON: 01/29/2018 FINDINGS: Bilateral small pleural effusion new since prior. Increased cardiomegaly. Mild to moderate pulmonary vascular congestion [id number] bibasilar subsegmental atelectasis versus infiltrate. There are diffuse degenerative changes of the visualized thoracic spine. Normal visualized ribs, clavicles, and shoulders. There is no demonstrated abnormality of the visualized soft tissue structures of the upper abdomen. RAD/Chest 1 View (Portable) IMPRESSION: Mild to moderate CHF new since prior. Mild to moderate bibasilar subsegmental atelectasis versus infiltrate. Electronically Signed: Dl Stevens MD at 11:37 EDT Tel [phone], Service support ,
[2019-01-12 11:12] LABS: Differential Indicated SCAN CRITERIA MET
--- NOTE | 2019-01-12 11:15 | RAD_ITS ---
STUDY: X-RAY - SOFT TISSUE NECK REASON FOR EXAM: Female, 83 years old. Hoarse voice TECHNIQUE: 2 view(s) of the neck were obtained. COMPARISON: None. FINDINGS: Unremarkable visualized nasopharynx, oropharynx, hypopharynx. Normal epiglottis. Normal visualized subglottic tracheal air column. Normal prevertebral soft tissue structures. There are degenerative changes of the cervical spine with cervical spondylosis. The soft tissue structures are unremarkable. RAD/Neck for Soft Tissue IMPRESSION: Unremarkable x-ray examination of soft tissue neck. Electronically Signed: Dl Stevens MD at 11:44 EDT Tel [phone], Service support ,
[2019-01-12] MEDS: Furosemide 40 MG/4 ML Vial IV ×3 (12:07→22:17)
[2019-01-12] MEDS: Nitroglycerin Infusion 250 ML 3 MG CONT INF (12:16)
[2019-01-12 12:31] LABS: Allen Test POS; Base Excess -6 mmol/L (-2 to +2); Bicarbonate 20.4 mmol/L (22-26); Blood Gas Specimen Type ART; O2 Delivery Device Nasal Can; PO2 152 mmHG (75-100); SITE R Radial; SO2 99 % (95-99); Time Given 1223; Total Carbon Dioxide 22 mmol/L
[2019-01-12 12:43] LABS: BNP,B-Type NATRIURETIC PEPTIDE 335.5 pg/mL (0-100)
--- NOTE | 2019-01-12 13:55 | CON.PCM_ITS ---
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 There has been discussion about access placement, attended dialysis education as outpt but has not made a final decision on modality. She is being admitted to ICU for acute CHF with increased SOB past 24hours. She had dyspnea with exertion past 2 weeks with wheezing. Denied chest pain, cough, fever or chills. Denies orthopnea. Denies nausea, vomiting, diar radha. She was on neptazane for glaucoma discontinued for worsening renal function. 24h urine CRCL 16cc/min with 3.8g protein on 12/21/18. She was referred to hematology for iron def anemia. Hgb dropped to 7.6 to 8g. scheduled for iv iron therapy next week. She is on BIPAP in ER and diuresing well on iv lasix. Family at bedside to provide history. Pt with dementia, poor historian. Seen in ER. - Allergies Allergies: Allergies erythromycin base Allergy (Verified 01/10/19 14:39) Rash lisinopril Allergy (Verified 01/10/19 14:39) Unknown NSAIDS (Non-Steroidal Anti-Inflamma Allergy (Verified 01/10/19 14:39) Other Salicylates Allergy (Verified 01/10/19 14:39) Other PROTEIN IN URINE DRUG Allergy (Uncoded 01/10/19 14:39) Other - Current Medications Current Medications: Current Medications Nitroglycerin/Dextrose () 250 mls @ 3 mls/hr CONT INF .[id number] [facility]; Protocol Last Admin: 01/12/19 12:16 Dose: 5 mcg/min, 3 mls/hr Documented by: - Past Medical History Past Medical History (Chronic Problems): Chronic Problems (Last Reviewed 01/10/19 @ 14:39 by Jayleen Arias) Anemia (Chronic) Iron deficiency (Chronic) Chronic renal failure, stage 4 (severe) (Chronic) History of stroke (Chronic) Asthma (Chronic) Glaucoma (Chronic) Hypertension (Chronic) Obesity (BMI 30.0-34.9) (Chronic) Hyperlipidemia (Chronic) - Past Surgical History Surgical History: cataract, hysterectomy, - - Leg tumor removed, unclear. Foot surgery, neck surgery-type unknown - Social History Smoking Status: Never smoker Alcohol: None Drugs: None - Family History Maternal Family History: Family History (Last Reviewed 01/10/19 @ 14:39 by Jayleen Arias) Mother Colon cancer Hypertension Father Hypertension History Items: Hypertension Paternal Family History: Family History (Last Reviewed 01/10/19 @ 14:39 by Jayleen Arias) Mother Colon cancer Hypertension Father Hypertension History Items: Hypertension Review of Systems Constitutional: Reports: Weakness, Fatigue. Denies: Anorexia, Chills, Fever Eyes: Denies: Vision Change HEENT: Denies: Head Aches Cardiovascular: Reports: Edema. Denies: Chest Pain, Syncope Respiratory: Reports: Shortness of Breath, Shortness of breath at rest, Shortness of breath upon exertion, Wheezing. Denies: Cough Gastrointestinal: Denies: Abdominal Pain, Diarrhea, Hematemesis, Hematochezia, Nausea, Vomiting Genitourinary: Denies: Dysuria Musculoskeletal: Denies: Arm Pain, Joint swelling Skin: Denies: Rash, Wounds Neurological: Denies: Tremor, Seizures Psychiatric: Reports: - - dementia Hematologic/ Lymphatic: Reports: Anemia. Denies: Hx of blood clot Patient Problems: Active and Suspected Problems (Last Reviewed 01/10/19 @ 14:39 by Jayleen Arias) Acute respiratory failure with hypoxia (Acute) Metabolic acidosis (Acute) Congestive heart failure (Acute) Elevated troponin I level (Acute) - Physical Exam General: - - on BIPAP, family to provide history, seen in ER HEENT: PERRLA, EOMI Oral: Moist Mucosa Neck: Supple Lungs: Diminished, Wheezes Cardiovascular: Regular rate, Murmur Abdomen: Bowel Sounds Present, Soft, Non Tender, Non-Distended Extremities: No edema Skin: No rashes Musculoskeletal: No Muscle Wasting Neurological: Cranial nerves II-XII grossly intact, - - cognitive impairment, de mentia Psych/Mental Status: Appropriate Vital Signs Temp Pulse Resp BP Pulse Ox 99 F 71 24 H 149/88 H 99 01/12/19 13:05 01/12/19 13:05 01/12/19 13:05 01/12/19 13:05 01/12/19 12:40 Oxygen Flow Rate (L/min) 6 Oxygen Delivery Method Bi-pap Weight: 79.152 kg Body Mass Index (BMI) 32.9 Finger Stick Blood Glucose 104 Laboratory Tests Past 24 Hrs 01/12/19 01/12/19 01/12/19 10:35 10:35 10:35 WBC 7.2 RBC 3.17 L Hgb 8.0 L Hct 26.9 L MCV 84.9 MCH 25.2 L MCHC 29.7 L RDW Std Deviation 47.8 H RDW Coeff of Liz[place] 15.4 H Plt Count 200 MPV 12.2 H Immature Gran % (Auto) 0.400 Neut % (Auto) 60.4 Lymph % (Auto) 23.3 [place] % (Auto) 8.6 Eos % (Auto) 6.0 H Baso % (Auto) 1.3 H Absolute Neuts (auto) 4.3 Absolute Lymphs (auto) 1.67 Nucleated RBC % 0 Differential Comment COMMENT Specimen Type Sample Site pH Bicarbonate Actual POC Total CO2 Base Excess O2 Saturation ABG pCO2 ABG pO2 Min Test O2 Delivery Device Liter Flow Blood Gas Notified Whom Blood Gas Notified Time Sodium 142 Potassium 4.7 Chloride 112 H Carbon Dioxide 22.0 Anion Gap 8 BUN 50 H Creatinine 6.18 H Estim Creat Clear Calc 5.30 Est GFR (MDRD) Af Amer 8 L Est GFR (MDRD) Non-Af 7 L BUN/Creatinine Ratio 8.1 L Glucose 106 Calcium 8.4 L Total Bilirubin 0.50 AST 73 H ALT 59 H Alkaline Phosphatase 152 H Troponin I B-Natriuretic Peptide Total Protein 7.7 Albumin 3.5 Globulin 4.2 Albumin/Globulin Ratio 0.8 L C1 Esterase Inhibitor Pending 01/12/19 01/12/19 01/12/19 10:35 10:35 12:27 WBC RBC Hgb Hct MCV MCH MCHC RDW Std Deviation RDW Coeff of [place] Plt Count MPV Immature Gran % (Auto) Neut % (Auto) Lymph % (Auto) [place] % (Auto) Eos % (Auto) Baso % (Auto) Absolute Neuts (auto) Absolute Lymphs (auto) Nucleated RBC % Differential Comment Specimen Type ART Sample Site R Radial pH 7.30 L Bicarbonate Actual 20.4 L POC Total CO2 22 Base Excess -6 L O2 Saturation 99 ABG pCO2 42.0 ABG pO2 152 H Min Test POS O2 Delivery Device Nasal Can Liter Flow 6.0 Blood Gas Notified Whom ED Blood Gas Notified Time 1223 Sodium Potassium Chloride Carbon Dioxide Anion Gap BUN Creatinine Estim Creat Clear Calc Est GFR (MDRD) Af Amer Est GFR (MDRD) Non-Af BUN/Creatinine Ratio Glucose Calcium Total Bilirubin AST ALT Alkaline Phosphatase Troponin I 0.072 H B-Natriuretic Peptide 335.5 H Total Protein Albumin Globulin Albumin/Globulin Ratio C1 Esterase Inhibitor POC Glucose 01/12/19 10:39 POC Glucose 104 Clinical Impression(s) from Imaging Studies Chest X-Ray 01/12/19 11:07 IMPRESSION: Mild to moderate CHF new since prior. Mild to moderate bibasilar subsegmental atelectasis versus infiltrate. Electronically Signed: Dl Stevens MD at 11:37 EDT Tel [phone], Service support , Soft Tissue Neck X-Ray 01/12/19 11:15 IMPRESSION: Unremarkable x-ray examination of soft tissue neck. Electronically Signed: Dl Stevens MD at 11:44 EDT Tel [phone], Service support , Assessment/Plan All Active Problems (Last Reviewed 01/10/19 @ 14:39 by Jayleen Arias) Acute respiratory failure with hypoxia (Acute) Metabolic acidosis (Acute) Congestive heart failure (Acute) Elevated troponin I level (Acute) Anemia (Acute) Hx of foot surgery (Acute) Hx of thyroidectomy (Acute) Hx of cataract extraction (Acute) Hx of hysterectomy (Acute) Stroke (Acute) CVA (cerebral vascular accident) (Acute) Cough (Acute) Shortness of breath (Acute) Cerebellar infarct (Acute) Speech apraxia (Acute) CVA (cerebral infarction) (Acute) 1. 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 Lost to f/u in office. Cancelled appt in February 2018 and never rescheduled until November this year for progressive renal failure. Last seen on 12/22/18 in office. Discussed dialysis access, attended dialysis education. Scheduled for AVF placement with Dr Adrian as outpt. Denied nausea, vomiting, uremia. Now in with fluid overload. Naptazine taken for glaucoma stopped for worsening renal fxn. Spoke with pt's two dtrs at bedside re possible need to start dialysis with tunneled catheter if renal fxn worsens. Will hold on initiating dialysis for now and medically manage with iv lasix. 24h CRCL 16cc/min with 3.8g protein in October 2018. 2. Acute CHF diuresing well on iv lasix. Continue lasix iv 40mg bid to tid. On BIPAP. Admit to ICU. May have stress induced cardiomyopathy due to anemia. 3. Iron def anemia scheduled for iv iron next week ordered by hematology. Hgb down to 7.6-8.0g. Consider blood transfusion. 4. HTN resume home BP meds 5. Hx renal mass followed by [facility] as outpt. Discussed plan of care with hospitalist, family at bedside.
--- NOTE | 2019-01-12 14:30 | ECHOCS_ITS ---
Reason For Study: CHF Procedure This was a 2D Doppler, Color Flow transthoracic echocardiogram. Exam performed portable in ICU/CCU. Left Ventricle Normal LV size. Left ventricular systolic function is normal. The estimated ejection fraction is 55 %. Stage 1 diastolic dysfunction. No regional wall motion abnormalities noted. Right Ventricle Normal RV size. Normal systolic function. Atria The left atrium is moderately enlarged. Normal right atrium. Mitral Valve Normal mitral valve. Tricuspid Valve Normal tricuspid valve. Aortic Valve Normal aortic valve. Pulmonic Valve Normal pulmonic valve. Great Vessels Normal aortic root. The pulmonary artery is normal size. Normal inferior vena cava. Pericardium/Pleural Small pericardial effusion. There are no echocardiographic indications of cardiac tamponade. Medication Diluted definity 1.5ml given slow IV push to enhance endocardial definition. Previously negative bubble study. MMode/2D Measurements & Calculations LVIDd: 5.4 cm IVSd: 1.1 cm Ao root diam: 3.4 cm LVIDs: 3.6 cm LVPWd: 1.2 cm RVDd: 3.5 cm FS: 32.3 % LAV(MOD-bp): 96.2 ml LVAd ap4: 41.9 cm2 SV(MOD-sp4): 92.0 ml LAV(MOD-bp) Indexed: 55.1 ml/m2 EDV(MOD-sp4): 161.6 ml LAV(MOD-sp2): 93.1 ml EDV(sp4-el): 166.3 ml LAV(MOD-sp4): 88.0 ml LVAs ap4: 25.2 cm2 ESV(MOD-sp4): 69.6 ml ESV(sp4-el): 68.6 ml EF(MOD-sp4): 56.9 % EF(sp4-el): 58.7 % SV(sp4-el): 97.6 ml LA A4 area: 26.6 cm2 LA dimension(2D): 4.2 cm RA A4 area: 15.3 cm2 Time Measurements MV dec time: 0.31 sec Doppler Measurements & Calculations MV E max ghanshyam: 107.4 cm/sec Lat Peak E' Ghanshyam: 4.4 cm/sec Med Peak E' Ghanshyam: 5.4 cm/sec MV A max ghanshyam: 149.5 cm/sec E/E' lat: 24.5 E/E' med: 19.8 MV E/A: 0.72 Ao V2 max: 179.2 cm/sec LV V1 max: 126.8 cm/sec PA V2 max: 119.2 cm/sec Ao max P.8 mmHg LV V1 max P.5 mmHg TR max ghanshyam: 160.3 cm/sec TR max P.3 mmHg Interpretation Summary Normal LV size. Left ventricular systolic function is normal. The estimated ejection fraction is 55 %. The left atrium is moderately enlarged. Small pericardial effusion. Stage 1 diastolic dysfunction. Ordering Physician: Cristofer Rios Referring Physician: JESUS MOLINA CHI Performed By: Nano Wilson RDCS, RVT
--- NOTE | 2019-01-12 14:36 | CON.PCM_ITS ---
Problem List (1) Anemia Status: Chronic Qualifiers: Anemia type: due to chronic kidney disease Chronic kidney disease stage: stage 5, not on chronic dialysis Qualified Code(s): N18.5 - Chronic kidney disease, stage 5; D63.1 - Anemia in chronic kidney disease (2) Iron deficiency Status: Chronic (3) Acute respiratory failure with hypoxia Status: Acute (4) Congestive heart failure Status: Acute (5) Elevated troponin I level Status: Acute (6) Chronic renal failure, stage 4 (severe) Status: Chronic (7) Hx of foot surgery Status: Acute (8) Hx of thyroidectomy Status: Acute (9) Hx of cataract extraction Status: Acute (10) Hx of hysterectomy Status: Acute (11) History of stroke Status: Chronic (12) Asthma Status: Chronic (13) Glaucoma Status: Chronic (14) Hypertension Status: Chronic (15) Obesity (BMI 30.0-34.9) Status: Chronic (16) Hyperlipidemia Status: Chronic (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 Patient reportedly is cared for by her daughter and grandson and was brought into the ER secondary to progressive shortness of breath with wheezing. Patient reportedly has had progressive shortness of breath over the last 2 to 3 weeks. Patient has another daughter that is visiting from [place] and states that she is noticed for the last 3 to 4 weeks increased dyspnea on exertion to the point it is exercise tolerance is approximately 15 to 20 feet. Patient has noted some lower extremity edema. Patient's grandson did not report any significant swelling of the lips, but had noted some periorbital edema. In the ER, patient was noted to be in significant respiratory distress with paradoxical breathing pattern. There was an audible stridor reported by ER and some possible swelling of her lip. As part of the work-up, patient did have a soft tissue x-ray of the neck that was unremarkable. Chest x-ray showed some mild to moderate congestive pattern with cardiomegaly. Patient was also noted to have an elevated BNP. Patient was placed on BiPAP therapy and a nitroglycerin drip. I was contacted and evaluated the patient in the ER. An ABG was obtained showing a metabolic acidosis. On my arrival in the ER, patient's family members reported that she appeared much more comfortable from a respiratory standpoint. Patient was also noted to have improvement in her periorbital edema. Patient denied any acute dyspnea while on BiPAP therapy. Patient does have difficulty with communicating, which family states is her baseline secondary to previous strokes. Patient reportedly had talked with Dr. Patrick in the past about possibly initiating fistula formation and proceeding with hemodialysis. Per the family, patient did not have any dysuria or fevers. Patient is not had increased confusion. Patient reportedly does have night sweats at baseline. No chest pain has been reported. Past Medical History Past Medical History (Chronic Problems): Chronic Problems (Last Reviewed 01/10/19 @ 14:39 by Jayleen Arias) Anemia (Chronic) Iron deficiency (Chronic) Chronic renal failure, stage 4 (severe) (Chronic) History of stroke (Chronic) Asthma (Chronic) Glaucoma (Chronic) Hypertension (Chronic) Obesity (BMI 30.0-34.9) (Chronic) Hyperlipidemia (Chronic) Medical History: Medical History (Last Reviewed 01/10/19 @ 14:39 by Jayleen Arias) Chronic renal failure, stage 4 (severe) (Chronic) N18.4 Stroke (Acute) I63.9 History of stroke (Chronic) Z86.73 CVA (cerebral vascular accident) (Acute) I63.9 Asthma (Chronic) J45.909 Glaucoma (Chronic) H40.9 Hypertension (Chronic) I10 Obesity (BMI 30.0-34.9) (Chronic) E66.9 Hyperlipidemia (Chronic) E78.5 Cough (Acute) R05 Shortness of breath (Acute) R06.02 Cerebellar infarct (Acute) I63.9 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 MRA Head w/ hemodynamically significant stenosis of the L P1, P2, P3 branches, no evidence of aneurysms, otherwise normal appearing [place]ana of mendoza. MRA Neck limited study, f/u Carotid US with noted mild-moderate disease, no acute disease or narrowing. Iron deficiency anemia D50.9 Chronic kidney disease (CKD) stage G5/A1, glomerular filtration rate (GFR) less than or equal to 15 mL/min/1.73 square meter and albuminuria creatinine ratio less than 30 mg/g N18.5 Allergies erythromycin base Allergy (Verified 01/10/19 14:39) Rash lisinopril Allergy (Verified 01/10/19 14:39) Unknown NSAIDS (Non-Steroidal Anti-Inflamma Allergy (Verified 01/10/19 14:39) Other Salicylates Allergy (Verified 01/10/19 14:39) Other PROTEIN IN URINE DRUG Allergy (Uncoded 01/10/19 14:39) Other Home Medications: Ambulatory Orders Medication Instructions Recorded Amlodipine Besylate 10 mg PO DAILY 12/26/14 Bimatoprost 0.01% [Lumigan 0.01%] 1 drp RIGHT EYE QHS 12/27/14 Ergocalciferol [Vitamin D] 50,000 unit PO QMONTH 07/20/15 Montelukast Sodium [Singulair] 10 mg PO DAILY 07/20/15 Aspirin E.C. [Ecotrin] 81 mg PO DAILY@0800 #30 tab 07/22/15 Timolol 0.5% [Timoptic] 1 drp EACH EYE BID 11/26/15 Levothyroxine [Synthroid] 100 mcg PO DAILY 01/29/18 Atorvastatin Calcium [Lipitor] 40 mg PO QHS #30 tab 02/02/18 Metoprolol Tartrate 12.5 mg PO BID #30 tab 02/02/18 Albuterol Inhaler [Ventolin Hfa 2 puff INHALATION Q4H PRN PRN 01/12/19 (SP)] Albuterol Sulfate 2.5 mg IH Q4H PRN PRN 01/12/19 Budesonide/Formoterol 160/4.5 1 puff INHALATION DAILY PRN 01/12/19 [Symbicort 160/4.5 Mcg Inhaler (SP)] Cefdinir 300 mg PO DAILY 01/12/19 Clopidogrel Bisulfate [Plavix] 75 mg PO DAILY 01/12/19 Surgical History: Surgical History (Last Reviewed 01/10/19 @ 14:39 by Jayleen Arias) Hx of foot surgery (Acute) Z98.890 Hx of thyroidectomy (Acute) Z98.890 Hx of cataract extraction (Acute) Z98.49 Hx of hysterectomy (Acute) Z90.710 Surgical History: cataract, hysterectomy, - - Leg tumor removed, unclear. Foot surgery, neck surgery-type unknown Psychiatric History: Attn. 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 Denies: Anorexia, Chills, Fever, Weight Change Eyes: Denies: Blurred vision, Cataracts, Double vision, Eyelid Inflammation HEENT: Denies: Difficulty Hearing, Difficulty Swallowing, Ear Pain, Eye Pain, Nasal Congestion, Sore Throat Cardiovascular: Reports: Chest Tightness, Edema. Denies: Chest Pain, Light Headedness, Palpitations Respiratory: Reports: Cough - Nonproductive, Shortness of breath at rest, Wheezing. Denies: Pleuritic Pain Gastrointestinal: Denies: Abdominal Pain, Diarrhea, Hematemesis, Hematochezia, Nausea, Vomiting Genitourinary: Denies: Dysuria, Frequency, Hematuria Gynecological: Denies: Breast symptoms Musculoskeletal: Denies: Foot Pain, Joint Pain, Joint Tenderness, Muscle pain Skin: Denies: Dryness, Jaundice, Lesions Neurological: Denies: Double vision, Change in Speech, Confusion, Seizures Psychiatric: Denies: Anxiety, Depression Endocrine: Denies: Change in Body Habitus Hematologic/ Lymphatic: Denies: Adenopathy, Easy Bruising, Easy Bleeding Patient Problems: Active and Suspected Problems (Last Reviewed 01/10/19 @ 14:39 by Jayleen Arias) Acute respiratory failure with hypoxia (Acute) Metabolic acidosis (Acute) Congestive heart failure (Acute) Elevated troponin I level (Acute) Objective: All imaging was personally reviewed. Chest x-ray does show some cephalization. No pleural effusions appreciated. - Physical Exam General: Alert, Cooperative, No apparent distress, - - Somewhat slow to communicate. Actively tracks around the room HEENT: Atraumatic, PERRLA, EOMI, Normocephalic, - - Slight injection. No icterus noted. Periorbital edema appreciated. Oral: No Gingival or Mucosal Lesions/ Ulcerations, Dry Mucosa Neck: Supple, No Nodes, Trachea Midline, JVD, Right Lungs: No rhonchi, Diminished, Rales, Wheezes, - - Symmetric expansion. No dullness to percussion. Cardiovascular: Regular rate, Regular Rhythm, Normal S1, Normal S2, No murmurs, No rub noted, No Gallop Abdomen: Bowel Sounds Present, Soft, Non Tender, Non-Distended, Obese Extremities: No clubbing, No cyanosis, Capillary Refill Less than 3 Seconds, Edema - 2+ Skin: No rashes, No breakdown Musculoskeletal: No Tenderness to Palpation of Joints or Extremities Lymphatic: No Cervical, Supraclavicular, or Inguinal Adenopathy Neurological: - - Moves all extremities appropriately. Some aphasia appreciated. No facial droop appreciated. Gait not tested. Psych/Mental Status: Appropriate, Flat Affect Vital Signs Temp Pulse Resp BP Pulse Ox 37.2 C 71 24 H 149/88 H 99 01/12/19 13:05 01/12/19 13:05 01/12/19 13:05 01/12/19 13:05 01/12/19 12:40 Oxygen Flow Rate (L/min) 6 Oxygen Delivery Method Bi-pap Weight: 75.6 kg Body Mass Index (BMI) 29.5 Finger Stick Blood Glucose 104 Laboratory Tests Past 24 Hrs 01/12/19 01/12/19 01/12/19 10:35 10:35 10:35 WBC 7.2 RBC 3.17 L Hgb 8.0 L Hct 26.9 L MCV 84.9 MCH 25.2 L MCHC 29.7 L RDW Std Deviation 47.8 H RDW Coeff of Lizett 15.4 H Plt Count 200 MPV 12.2 H Immature Gran % (Auto) 0.400 Neut % (Auto) 60.4 Lymph % (Auto) 23.3 [place] % (Auto) 8.6 Eos % (Auto) 6.0 H Baso % (Auto) 1.3 H Absolute Neuts (auto) 4.3 Absolute Lymphs (auto) 1.67 Nucleated RBC % 0 Differential Comment COMMENT Specimen Type Sample Site pH Bicarbonate Actual POC Total CO2 Base Excess O2 Saturation ABG pCO2 ABG pO2 Min Test O2 Delivery Device Liter Flow Blood Gas Notified Whom Blood Gas Notified Time Sodium 142 Potassium 4.7 Chloride 112 H Carbon Dioxide 22.0 Anion Gap 8 BUN 50 H Creatinine 6.18 H Estim Creat Clear Calc 5.30 Est GFR (MDRD) Af Amer 8 L Est GFR (MDRD) Non-Af 7 L BUN/Creatinine Ratio 8.1 L Glucose 106 Calcium 8.4 L Total Bilirubin 0.50 AST 73 H ALT 59 H Alkaline Phosphatase 152 H Troponin I B-Natriuretic Peptide Total Protein 7.7 Albumin 3.5 Globulin 4.2 Albumin/Globulin Ratio 0.8 L C1 Esterase Inhibitor Pending 01/12/19 01/12/19 01/12/19 10:35 10:35 12:27 WBC RBC Hgb Hct MCV MCH MCHC RDW Std Deviation RDW Coeff of Lizett Plt Count MPV Immature Gran % (Auto) Neut % (Auto) Lymph % (Auto) [place] % (Auto) Eos % (Auto) Baso % (Auto) Absolute Neuts (auto) Absolute Lymphs (auto) Nucleated RBC % Differential Comment Specimen Type ART Sample Site R Radial pH 7.30 L Bicarbonate Actual 20.4 L POC Total CO2 22 Base Excess -6 L O2 Saturation 99 ABG pCO2 42.0 ABG pO2 152 H Min Test POS O2 Delivery Device Nasal Can Liter Flow 6.0 Blood Gas Notified Whom ED Blood Gas Notified Time 1223 Sodium Potassium Chloride Carbon Dioxide Anion Gap BUN Creatinine Estim Creat Clear Calc Est GFR (MDRD) Af Amer Est GFR (MDRD) Non-Af BUN/Creatinine Ratio Glucose Calcium Total Bilirubin AST ALT Alkaline Phosphatase Troponin I 0.072 H B-Natriuretic Peptide 335.5 H Total Protein Albumin Globulin Albumin/Globulin Ratio C1 Esterase Inhibitor POC Glucose 01/12/19 10:39 POC Glucose 104 Clinical Impression(s) from Imaging Studies Chest X-Ray 01/12/19 11:07 IMPRESSION: Mild to moderate CHF new since prior. Mild to moderate bibasilar subsegmental atelectasis versus infiltrate. Electronically Signed: Dl Stevens MD at 11:37 EDT Tel [phone], Service support , Soft Tissue Neck X-Ray 01/12/19 11:15 IMPRESSION: Unremarkable x-ray examination of soft tissue neck. Electronically Signed: Dl Stevens MD at 11:44 EDT Tel [phone], Service support , Assessment/Plan Active and Suspected Problems (Last Reviewed 01/10/19 @ 14:39 by Jayleen Arias) Acute respiratory failure with hypoxia (Acute) Metabolic acidosis (Acute) Congestive heart failure (Acute) Elevated troponin I level (Acute) RECOMMENDATIONS: 1. Active diuresis 2. Await nephrology recommendations on dialysis 3. Continue BiPAP ATC for now, breaks as tolerated 4. Agree with continuation of antihypertensives 5. PRN albuterol is likely sufficient IMPRESSIONS: 1. Acute hypoxic respiratory failure secondary to probable acute on chronic diastolic congestive heart failure Patient has a previous echocardiogram showing preserved ejection fraction. Patient has had significant worsening in renal function and this may have led to significant fluid retention. Patient does have some cephalization on chest x-ray. Patient is responding well to BiPAP at this time. Nephrology has been consulted. Would defer to them on dialysis, but patient appears to be responding to Lasix therapy at this time. No biochemical indication for urgent hemodialysis at this time. Patient does not appear to have significant lip swelling, tongue swelling or stridor on my exam. 2. Elevated troponin/history of stroke Patient has had an echocardiogram in the past showing preserved ejection fraction. Consider repeating echocardiogram and trending troponins. Cardiology has been consulted. Clinical suspicion for supply versus demand mismatch leading to elevated troponin. Patient is on telemetry. We will continue to monitor. 3. Metabolic acidosis/anemia Patient likely has an element of anemia of chronic disease/iron deficiency anemia secondary to renal failure. Given hypoxic state, this likely accounts for patient's presenting metabolic acidosis. We will continue to monitor. Patient does not have a significant anion gap to suggest lactic acidosis at this time. 4. Acute on chronic kidney disease stage IV Unclear etiology at this time. Nephrology has been consulted. Patient appears to be responding to Lasix therapy, but cannot exclude the need for dialysis for fluid removal. Did discuss with the family about the risks and benefits of temporary hemodialysis line and they stated that they would proceed if indicated. 5. Hyperlipidemia/hypertension/glaucoma/advanced age/history of multiple strokes Complicates care, management, recovery and prognosis. Okay to continue antihypertensives from my standpoint. Patient does not have fever or leukocytosis to suggest sepsis secondary to pneumonia at this time. Unclear if patient is able to give consent for changing CODE STATUS. Reportedly, family states that she is stated multiple times that she would want to be aggressive. Patient will be made a full code. Time: 37 minutes critical care time spent addressing patient's acute hypoxic respiratory failure, elevated troponin, acute on chronic kidney disease, review of all data and collaboration with care team (2 PM to 3 PM) Code Visit [id number]: [id number] Critical care first hour
--- NOTE | 2019-01-12 15:59 | CON.PCM_ITS ---
Reason for Consult Date of Consultation: 01/12/19 Reason for Consultation: Shortness of breath History of Present Illness: The patient is a 83 year old F with past medical history of hypertension, shortness of breath and renal dysfunction as well as anemia, who presented to [facility] on 01/12/2019 secondary to progressive shortness of breath and paradoxical breathing. Patient reportedly has had progressive shortness of breath over the last 2 to 3 weeks. Patient has another daughter that is visiting from [place] and states that she is noticed for the last 3 to 4 weeks increased dyspnea on exertion to the point it is exercise tolerance is approximately 15 to 20 feet. Patient has noted some lower extremity edema. Patient's grandson did not report any significant swelling of the lips, but had noted some periorbital edema. He has denied any chest pain or palpitations or presyncope or syncope In the ER, patient was noted to be in significant respiratory distress with paradoxical breathing pattern. There was an audible stridor reported by ER and some possible swelling of her lip. As part of the work-up, patient did have a soft tissue x-ray of the neck that was unremarkable. Chest x-ray showed some mild to moderate congestive pattern with cardiomegaly. Patient was also noted to have an elevated BNP. Patient was placed on BiPAP therapy and a nitroglycerin drip. An ABG was obtained showing a metabolic acidosis. Patient was admitted to the intensive care unit and I was called to assist in the management. Currently appears to be breathing better on the BiPAP mask. Past Medical History Allergies/Adverse Reactions: Allergies erythromycin base Allergy (Verified 01/10/19 14:39) Rash lisinopril Allergy (Verified 01/10/19 14:39) Unknown NSAIDS (Non-Steroidal Anti-Inflamma Allergy (Verified 01/10/19 14:39) Other Salicylates Allergy (Verified 01/10/19 14:39) Other PROTEIN IN URINE DRUG Allergy (Uncoded 01/10/19 14:39) Other Home Medications: Ambulatory Orders Medication Instructions Recorded Amlodipine Besylate 10 mg PO DAILY 12/26/14 Bimatoprost 0.01% [Lumigan 0.01%] 1 drp RIGHT EYE QHS 12/27/14 Ergocalciferol [Vitamin D] 50,000 unit PO QMONTH 07/20/15 Montelukast Sodium [Singulair] 10 mg PO DAILY 07/20/15 Aspirin E.C. [Ecotrin] 81 mg PO DAILY@0800 #30 tab 07/22/15 Timolol 0.5% [Timoptic] 1 drp EACH EYE BID 11/26/15 Levothyroxine [Synthroid] 100 mcg PO DAILY 01/29/18 Atorvastatin Calcium [Lipitor] 40 mg PO QHS #30 tab 02/02/18 Metoprolol Tartrate 12.5 mg PO BID #30 tab 02/02/18 Albuterol Inhaler [Ventolin Hfa 2 puff INHALATION Q4H PRN PRN 01/12/19 (SP)] Albuterol Sulfate 2.5 mg IH Q4H PRN PRN 01/12/19 Budesonide/Formoterol 160/4.5 1 puff INHALATION DAILY PRN 01/12/19 [Symbicort 160/4.5 Mcg Inhaler (SP)] Cefdinir 300 mg PO DAILY 01/12/19 Clopidogrel Bisulfate [Plavix] 75 mg PO DAILY 01/12/19 Past Medical History (Chronic Problems): Chronic Problems (Last Reviewed 01/10/19 @ 14:39 by Jayleen Arias) Anemia (Chronic) Iron deficiency (Chronic) Chronic renal failure, stage 4 (severe) (Chronic) History of stroke (Chronic) Asthma (Chronic) Glaucoma (Chronic) Hypertension (Chronic) Obesity (BMI 30.0-34.9) (Chronic) Hyperlipidemia (Chronic) Surgical History: cataract, hysterectomy, - - Leg tumor removed, unclear. Foot surgery, neck surgery-type unknown Psychiatric History: Attn. 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 - *Family History Maternal Family History: Family History (Last Reviewed 01/10/19 @ 14:39 by Jayleen Arias) Mother Colon cancer Hypertension Father Hypertension History Items: Hypertension Paternal Family History: Family History (Last Reviewed 01/10/19 @ 14:39 by Jayleen Arias) Mother Colon cancer Hypertension Father Hypertension History Items: Hypertension Lives: With Family, - Smoking Status: Never smoker Alcohol: None Drugs: None Review of Systems - Review of Systems General: Denies: Fever, Night Sweats, Fatigue HEENT: Denies: Vision Change Cardiovascular: Reports: Shortness of Breath, Shortness of Breath at Rest, Shortness of Breath with Exertion. Denies: Chest Discomfort, Orthopnea, PND, Peripheral Edema, Palpitations, Lightheadedness, Dizziness, Near Syncope, Syncope Respiratory: Denies: Cough, Sputum Production, Hemoptysis Gastrointestinal: Denies: Hematemesis, Hematochezia, Melena Genitourinary: Denies: Dysuria, Hematuria Muscoloskeletal: Denies: Myalgias Skin: Denies: Rash Neurological: Denies: Dizziness Psychiatric: Denies: Anxiety Endocrine: Denies: Heat Intolerance Hematologic/ Lymphatic: Reports: Anemia Subjectve: Elderly lady in no distress Objective: Vital Signs Temp Pulse Resp BP Pulse Ox 99 F 74 17 149/88 H 100 01/12/19 13:05 01/12/19 14:25 01/12/19 14:25 01/12/19 13:05 01/12/19 14:25 Oxygen Flow Rate (L/min) 6 Oxygen Delivery Method Bi-pap Weight: 166 lb 10.711 oz Body Mass Index (BMI) 29.5 Finger Stick Blood Glucose 104 General: Awake, Alert, Oriented x 3, Ill Appearing HEENT: PERRL, EOMI, Sclera Non Icteric Neck: Supple, Good ROM, No Lymph Node Enlargement Lungs: Diminished Pradeep Bases Cardiovascular: Regular Rhythm, Normal S1, Normal S2, No Murmurs, No Rubs, No Gallops Vascular: No Carotid Bruits, Normal Femoral Pulses, Normal Radial Pulses, Normal Dorsalis Pedal Pulse, Normal Posterior Tibial Pulses Abdomen: Bowel Sounds Present, Soft, Non Tender, No HSM, No Organomegaly Extremities: No Cyanosis, No Clubbing, Bilateral Edema +1 Musculoskeletal: No Erythema Skin: No Rashes Lymphatic: No Lymph Node Enlargement Neurological: No Focal Motor or Sensory Deficit Psych/Mental Status: Appropriate 01/12/19 10:35: WBC 7.2, RBC 3.17 L, Hgb 8.0 L, Hct 26.9 L, MCV 84.9, MCH 25.2 L , MCHC 29.7 L, Plt Count 200, MPV 12.2 H, Immature Gran % (Auto) 0.400, Neut % (Auto) 60.4, Lymph % (Auto) 23.3, [place] % (Auto) 8.6, Eos % (Auto) 6.0 H, Baso % (Auto) 1.3 H, Absolute Neuts (auto) 4.3, Nucleated RBC % 0 01/12/19 10:35: Sodium 142, Potassium 4.7, Chloride 112 H, Carbon Dioxide 22.0, Anion Gap 8, BUN 50 H, Creatinine 6.18 H, Est GFR (MDRD) Af Amer 8 L, Est GFR (MDRD) Non-Af 7 L, BUN/Creatinine Ratio 8.1 L, Glucose 106, Calcium 8.4 L, Total Bilirubin 0.50 01/12/19 10:35: Troponin I 0.072 H 01/12/19 10:35: B-Natriuretic Peptide 335.5 H 01/12/19 12:27: pH 7.30 L, Bicarbonate Actual 20.4 L, POC Total CO2 22, Base Excess -6 L, O2 Saturation 99, ABG pCO2 42.0, ABG pO2 152 H, Min Test POS Rhythm: EKG: Normal sinus rhythm with no acute changes ECHO: Overall preserved left ventricular systolic function estimated EF 60% Assessment/Plan 1. Acute diastolic congestive heart failure * Patient presents with shortness of breath which is likely secondary to diastolic heart failure. * Recommendation will be to aggressively treat the blood pressure with intravenous nitroglycerin and transition to oral nitrates and beta-ramon * The etiology is not clear at this time but certainly hypertensive emergency could be a contributing factor. Coronary disease cannot be completely excluded especially at age. * She will be started on a beta-ramon at this time. * 2. Hypertension * Her blood pressure appears to be rather high and I recommend using intravenous Lasix at this particular time. * Will transition to a calcium channel ramon and a beta-ramon. * 3. Progressive renal failure * Is likely contributing to the accelerated hypertension. Will defer to the renal service for further management on this * 4. Anemia * Patient is noted to have significant anemia likely secondary to renal disease. I will hold off any blood transfusions at this particular time. I do not think that there is an acute drop and therefore would not necessarily benefit. * 5. Non-ST elevation myocardial infarction abnormal cardiac enzymes * Demand ischemia is a possibility especially with a markedly elevated blood pressure. Her echocardiogram demonstrated preserved ejection fraction with no obvious wall motion abnormality. * We will continue to monitor for now. * * Thank you for allowing me to participate in the care of your patient. Please don't hesitate to call if any issues arise
--- NOTE | 2019-01-12 16:28 | CHAPLAIN ---
Type of Pastoral Visit _x__ Initial Visit ___ Follow-up Visit ___ On-call Visit ___ General Patient Visit ___ Spiritual Assessment ___ Family Conference ___ Bereavement ___ Rapid Response ___ Code Blue ___ Other (describe below) Pastoral Care Referral From _x__ Patient ___ Family ___ Nurse ___ Physician ___ Neurosurgical Nurse Practitioner ___ Cyber Systems Operations Specialist ___ Other (describe below) Sacrament/Intervention ___ Active listening ___ Anointing ___ Sikhism ___ Bereavement ___ Communion ___ Lillie exploration ___ ___ Life review _x__ Prayer ___ Reconciliation ___ Sacrament of Sick _x__ Supportive presence ___ Wedding ___ Other (describe below) Pastoral Comments met with daughter of the patient as well as the patient; both welcomed prayer and presence; offered to make call to local confucianism to notify her injection specialist and that was accepted and completed
[2019-01-12] MEDS: 0.9% NaCl Peripheral Flush Adult/Peds IV ×2 (16:50→22:17)
[2019-01-12] MEDS: 0.9% NaCl IVPB Med Flush (250 mL) 15 ML IV (19:27)
--- NOTE | 2019-01-12 19:48 | PCM.HP.STD ---
Problem List (1) Shortness of breath Status: Acute History of Present Illness Date of Admission: 01/12/19 Chief Complaint: Shortness of breath The patient is a 83 year old F was seen in the emergency room at [facility] after being brought in with complaints of increasing shortness of breath over the last 2 weeks. Patient has a history of dementia and cerebrovascular disease with an old stroke, she is unable to provide a review of systems to this examiner, family members accompanying the patient gave information concerning her medical complaints and medical care. Patient has a significant history for hypertension, cerebrovascular disease, dementia, and chronic stage V renal disease. She had recently been referred to hematology for treatment of anemia, hematology recommended administration of Venofer, labs were obtained on 01/10/2019 and these were reviewed by myself. There was noted to be a significant increase in the patient's creatinine on 01/10/2019 over her last documented creatinine. Patient's iron level was also noted to be low. This was felt to be secondary to chronic renal disease. Patient was extremely short of breath on presentation to the emergency room, and ABG on 6 L was obtained which showed a PO2 of 152, PCO2 was 42, pH was 7.3. Patient was initially thought to have angioedema and was given IV Solu-Medrol, patient's respiratory status declined, chest x-ray showed congestive heart failure and the patient was placed on BiPAP and given IV Lasix. Other labs were obtained in the emergency room: Patient's BUN was 50, creatinine was 6.18, her beta natruretic peptide was elevated at 335, AST was elevated at 73, ALT was elevated at 59, alkaline phosphatase was elevated at 152, LDH was elevated at 365. Patient's troponin was 0.072, hemoglobin was low at 8, white blood cell count was normal. Discussions were carried out with the patient's family members who are present in the emergency room, they requested all aggressive measures be carried out in caring for the patient including use of mechanical ventilation if need be. Patient appeared to improve after application of BiPAP and administration of Lasix, I discussed her care with cardiology, nephrology, and critical care. Patient will be admitted to the ICU for acute hypoxic respiratory failure and acute congestive heart failure-type unknown at this time, she will be maintained on IV Lasix, she will be seen by nephrology, cardiology, and critical care. Labs will be monitored, echocardiogram will be obtained today, and cardiac enzymes will be cycled. Patient was placed on a nitroglycerin drip in the emergency room for preload reduction and blood pressure management. Past Medical History Past Medical History (Chronic Problems): Chronic Problems (Last Reviewed 01/10/19 @ 14:39 by Jayleen Arias) Anemia (Chronic) Iron deficiency (Chronic) Chronic renal failure, stage 4 (severe) (Chronic) History of stroke (Chronic) Asthma (Chronic) Glaucoma (Chronic) Hypertension (Chronic) Obesity (BMI 30.0-34.9) (Chronic) Hyperlipidemia (Chronic) Medical History: Medical History (Last Reviewed 01/10/19 @ 14:39 by Jayleen Arias) Chronic renal failure, stage 4 (severe) (Chronic) N18.4 Stroke (Acute) I63.9 History of stroke (Chronic) Z86.73 CVA (cerebral vascular accident) (Acute) I63.9 Asthma (Chronic) J45.909 Glaucoma (Chronic) H40.9 Hypertension (Chronic) I10 Obesity (BMI 30.0-34.9) (Chronic) E66.9 Hyperlipidemia (Chronic) E78.5 Cough (Acute) R05 Shortness of breath (Acute) R06.02 Cerebellar infarct (Acute) I63.9 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 MRA Head w/ hemodynamically significant stenosis of the L P1, P2, P3 branches, no evidence of aneurysms, otherwise normal appearing [place]. MRA Neck limited study, f/u Carotid US with noted mild-moderate disease, no acute disease or narrowing. Iron deficiency anemia D50.9 Chronic kidney disease (CKD) stage G5/A1, glomerular filtration rate (GFR) less than or equal to 15 mL/min/1.73 square meter and albuminuria creatinine ratio less than 30 mg/g N18.5 Allergies erythromycin base Allergy (Verified 01/10/19 14:39) Rash lisinopril Allergy (Verified 01/10/19 14:39) Unknown NSAIDS (Non-Steroidal Anti-Inflamma Allergy (Verified 01/10/19 14:39) Other Salicylates Allergy (Verified 01/10/19 14:39) Other PROTEIN IN URINE DRUG Allergy (Uncoded 01/10/19 14:39) Other Home Medications: Ambulatory Orders Medication Instructions Recorded Amlodipine Besylate 10 mg PO DAILY 12/26/14 Bimatoprost 0.01% [Lumigan 0.01%] 1 drp RIGHT EYE QHS 12/27/14 Ergocalciferol [Vitamin D] 50,000 unit PO QMONTH 07/20/15 Montelukast Sodium [Singulair] 10 mg PO DAILY 07/20/15 Aspirin E.C. [Ecotrin] 81 mg PO DAILY@0800 #30 tab 07/22/15 Timolol 0.5% [Timoptic] 1 drp EACH EYE BID 11/26/15 Levothyroxine [Synthroid] 100 mcg PO DAILY 01/29/18 Atorvastatin Calcium [Lipitor] 40 mg PO QHS #30 tab 02/02/18 Metoprolol Tartrate 12.5 mg PO BID #30 tab 02/02/18 Albuterol Inhaler [Ventolin Hfa 2 puff INHALATION Q4H PRN PRN 01/12/19 (SP)] Albuterol Sulfate 2.5 mg IH Q4H PRN PRN 01/12/19 Budesonide/Formoterol 160/4.5 1 puff INHALATION DAILY PRN 01/12/19 [Symbicort 160/4.5 Mcg Inhaler (SP)] Cefdinir 300 mg PO DAILY 01/12/19 Surgical History: Surgical History (Last Reviewed 01/10/19 @ 14:39 by Jayleen Arias) Hx of foot surgery (Acute) Z98.890 Hx of thyroidectomy (Acute) Z98.890 Hx of cataract extraction (Acute) Z98.49 Hx of hysterectomy (Acute) Z90.710 Surgical History: cataract, hysterectomy, - - Leg tumor removed, unclear. Foot surgery, neck surgery-type unknown Psychiatric History: Attn. 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 MACHINE OPERATOR history Lives: Alone, - Smoking Status: Never smoker Tobacco Use: Non-smoker Alcohol: None Drugs: None - *Family History Maternal Family History: Family History (Last Reviewed 01/10/19 @ 14:39 by Jayleen Arias) Mother Colon cancer Hypertension Father Hypertension History Items: Hypertension Paternal Family History: Family History (Last Reviewed 01/10/19 @ 14:39 by Jayleen Arias) Mother Colon cancer Hypertension Father Hypertension History Items: Hypertension Review of Systems Unable to obtain accurate/complete ROS d/t: Due to dementia Comment: Medical information was obtained from the patient's family members due to patient's dementia, patient was unable to provide a review of systems due to her dementia VTE Information - Inpt Only VTE Present on Admission: No VTE Mechan Device Prophylaxis: None VTE Pharm Prophylaxis ordered?: Yes Patient Problems: Active and Suspected Problems (Last Reviewed 01/10/19 @ 14:39 by Jayleen Arias) Acute respiratory failure with hypoxia (Acute) Metabolic acidosis (Acute) Congestive heart failure (Acute) Elevated troponin I level (Acute) - Physical Exam General: Alert, Cooperative, Well developed, - - Patient has marked respiratory distress with rapid respirations and distress HEENT: Atraumatic, PERRLA, EOMI, Normocephalic Oral: Moist Mucosa Neck: Supple, No JVD, Negative Carotid Bruits, Trachea Midline, Thyroid Normal Size and Texture Lungs: No rhonchi, No rales, Diminished, - - Scattered expiratory wheezes are noted bilaterally Cardiovascular: Regular rate, Regular Rhythm, Normal S1, Normal S2, No murmurs, PMI Normal, No rub noted, No Gallop Abdomen: Bowel Sounds Present, Soft, Non Tender, Non-Distended, No hernias noted Extremities: No clubbing, No cyanosis, No edema, Capillary Refill Less than 3 Seconds Skin: No rashes, No breakdown Musculoskeletal: No Tenderness to Palpation of Joints or Extremities Neurological: Cranial nerves II-XII grossly intact, Neuro grossly intact, Sensory exam intact to light touch and pain Psych/Mental Status: - - Patient is alert but confused, she does not answer questions appropriately Vital Signs Temp Pulse Resp BP Pulse Ox 96.8 F L 80 16 159/83 H 100 01/12/19 16:00 01/12/19 16:30 01/12/19 16:39 01/12/19 16:30 01/12/19 16:39 Oxygen Flow Rate (L/min) 2 Oxygen Delivery Method Nasal Cannula Weight: 75.6 kg Body Mass Index (BMI) 29.5 Finger Stick Blood Glucose 104 Intake and Output for Last 24 Hours 01/10/19 01/11/19 01/12/19 23:59 23:59 23:59 Intake Total 32.20 / 32.20 Output Total 450 / 450 Balance -417.80 / -417.80 Laboratory Tests Past 24 Hrs 01/12/19 01/12/19 01/12/19 10:35 10:35 10:35 WBC 7.2 RBC 3.17 L Hgb 8.0 L Hct 26.9 L MCV 84.9 MCH 25.2 L MCHC 29.7 L RDW Std Deviation 47.8 H RDW Coeff of Lizett 15.4 H Plt Count 200 MPV 12.2 H Immature Gran % (Auto) 0.400 Neut % (Auto) 60.4 Lymph % (Auto) 23.3 [place] % (Auto) 8.6 Eos % (Auto) 6.0 H Baso % (Auto) 1.3 H Absolute Neuts (auto) 4.3 Absolute Lymphs (auto) 1.67 Nucleated RBC % 0 Differential Comment COMMENT Specimen Type Sample Site pH Bicarbonate Actual POC Total CO2 Base Excess O2 Saturation ABG pCO2 ABG pO2 Min Test O2 Delivery Device Liter Flow Blood Gas Notified Whom Blood Gas Notified Time Sodium 142 Potassium 4.7 Chloride 112 H Carbon Dioxide 22.0 Anion Gap 8 BUN 50 H Creatinine 6.18 H Estim Creat Clear Calc 5.30 Est GFR (MDRD) Af Amer 8 L Est GFR (MDRD) Non-Af 7 L BUN/Creatinine Ratio 8.1 L Glucose 106 Calcium 8.4 L Total Bilirubin 0.50 AST 73 H ALT 59 H Alkaline Phosphatase 152 H Troponin I B-Natriuretic Peptide Total Protein 7.7 Albumin 3.5 Globulin 4.2 Albumin/Globulin Ratio 0.8 L C1 Esterase Inhibitor Pending Blood Type Antibody Screen Crossmatch 01/12/19 01/12/19 01/12/19 10:35 10:35 12:27 WBC RBC Hgb Hct MCV MCH MCHC RDW Std Deviation RDW Coeff of Lizett Plt Count MPV Immature Gran % (Auto) Neut % (Auto) Lymph % (Auto) [place] % (Auto) Eos % (Auto) Baso % (Auto) Absolute Neuts (auto) Absolute Lymphs (auto) Nucleated RBC % Differential Comment Specimen Type ART Sample Site R Radial pH 7.30 L Bicarbonate Actual 20.4 L POC Total CO2 22 Base Excess -6 L O2 Saturation 99 ABG pCO2 42.0 ABG pO2 152 H Min Test POS O2 Delivery Device Nasal Can Liter Flow 6.0 Blood Gas Notified Whom ED MD Blood Gas Notified Time 1223 Sodium Potassium Chloride Carbon Dioxide Anion Gap BUN Creatinine Estim Creat Clear Calc Est GFR (MDRD) Af Amer Est GFR (MDRD) Non-Af BUN/Creatinine Ratio Glucose Calcium Total Bilirubin AST ALT Alkaline Phosphatase Troponin I 0.072 H B-Natriuretic Peptide 335.5 H Total Protein Albumin Globulin Albumin/Globulin Ratio C1 Esterase Inhibitor Blood Type Antibody Screen Crossmatch 01/12/19 01/12/19 01/12/19 16:30 16:30 19:30 WBC RBC Hgb Hct MCV MCH MCHC RDW Std Deviation RDW Coeff of Lizett Plt Count MPV Immature Gran % (Auto) Neut % (Auto) Lymph % (Auto) [place] % (Auto) Eos % (Auto) Baso % (Auto) Absolute Neuts (auto) Absolute Lymphs (auto) Nucleated RBC % Differential Comment Specimen Type Sample Site pH Bicarbonate Actual POC Total CO2 Base Excess O2 Saturation ABG pCO2 ABG pO2 Min Test O2 Delivery Device Liter Flow Blood Gas Notified Whom Blood Gas Notified Time Sodium Potassium Chloride Carbon Dioxide Anion Gap BUN Creatinine Estim Creat Clear Calc Est GFR (MDRD) Af Amer Est GFR (MDRD) Non-Af BUN/Creatinine Ratio Glucose Calcium Total Bilirubin AST ALT Alkaline Phosphatase Troponin I 0.061 H Pending B-Natriuretic Peptide Total Protein Albumin Globulin Albumin/Globulin Ratio C1 Esterase Inhibitor Blood Type O POSITIVE Antibody Screen NEGATIVE Crossmatch See Detail POC Glucose 01/12/19 10:39 POC Glucose 104 Assessment/Plan All Active Problems (Last Reviewed 01/10/19 @ 14:39 by Jayleen Arias) Acute respiratory failure with hypoxia (Acute) Metabolic acidosis (Acute) Congestive heart failure (Acute) Elevated troponin I level (Acute) Anemia (Acute) Hx of foot surgery (Acute) Hx of thyroidectomy (Acute) Hx of cataract extraction (Acute) Hx of hysterectomy (Acute) Stroke (Acute) CVA (cerebral vascular accident) (Acute) Cough (Acute) Shortness of breath (Acute) Cerebellar infarct (Acute) Speech apraxia (Acute) CVA (cerebral infarction) (Acute) #1 acute hypoxic respiratory failure secondary to acute congestive heart failure-type unknown-patient will be admitted to ICU and she will be seen by critical care, cardiology, and nephrology, she will be placed on IV Lasix and labs will be monitored. Pulse ox will be monitored. #2 acute congestive heart failure-etiology unclear at this point, it is unknown whether this is systolic or diastolic congestive heart failure-according to family members, patient is not had a history of congestive heart failure. Echocardiogram will be obtained and she will be seen in consultation by cardiology, cardiac enzymes will be cycled #3 acute renal failure on chronic kidney disease stage V due to hypertension-nephrology will participate in her care, family states that they want her to undergo dialysis if it is necessary. 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 Pulmonary medicine/critical care will evaluate the patient Again, CODE STATUS was discussed with her 3 family members present, they desire all measures be instituted including mechanical ventilation if needed, cardiac resuscitation if needed, and dialysis if needed. Prognosis is guarded at this time Code Visit Inpatient E&M: [id number] Init Hosp L3
[2019-01-12] MEDS: Atorvastatin Calcium 40 MG Tablet PO (20:38)
[2019-01-12] MEDS: Metoprolol Tartrate 25 MG Tablet 12.5 MG PO (20:38)
[2019-01-12] MEDS: Latanoprost 0.005% 1 Bottle 1 DRP RIGHT EYE (20:43)
[2019-01-12] MEDS: Timolol 0.5% 5ML OPTH.BTL 1 DRP EACH EYE (20:44)
[2019-01-12] MEDS: Heparin Injection (Vial) 5,000 UNIT/ML VIAL 5000 UNIT SC (22:17)
[2019-01-13] VITALS (28 sets, daily range): BP systolic 123–157; BP diastolic 68–87; PULSE 64–90; RESP 12–28; TEMP 36.8–37.3; O2SAT 92–100
[2019-01-13] MEDS: Levothyroxine 100 MCG Tablet PO (05:00)
[2019-01-13] MEDS: Heparin Injection (Vial) 5,000 UNIT/ML VIAL 5000 UNIT SC ×3 (05:00→21:05)
[2019-01-13] MEDS: Furosemide 40 MG/4 ML Vial IV ×3 (05:00→21:05)
[2019-01-13 05:05] LABS: Absolute Lymphocyte Count 1.06 X10^3/uL (0.83-4.51); Absolute Neutrophil Count 5.3 X10^3/uL (2.0-7.7); Basophil# 0.02 X10^3/uL; Basophil% 0.3 % (0-1); Hematocrit 20.6 % (37-47); Hemoglobin 6.4 g/dL (12.0-15.0); Lymphocyte # 1.06 X10^3/ul (4.0); Lymphocyte % 15.9 % (19-41); Mean Corp Hgb Conc 31.1 g/dL (32-36); Mean Corpuscular Hgb 26.2 pg (27.0-32.0); Mean Corpuscular Volume 84.4 fL (81-99); Monocyte% 4.5 % (0-10); NRBC Flagged by Analyzer 0 % (0-5); Neutrophil # 5.25 X10^3/uL (2.7-7.7); Neutrophil % 78.7 % (47-70); Platelet Count 171 K/mm3 (150-450); RBC Distribution Width CV 14.9 % (11.6-14.6); RBC Distribution Width SD 45.7 fl (35.1-43.9); Red Blood Count 2.44 M/mm3 (4.2-5.4); White Blood Count 6.7 K/mm3 (4.4-11.0)
[2019-01-13 05:19] LABS: Anion Gap 10 (5-15); BUN 57 mg/dL (7-18); BUN/Creat Ratio 8.9 RATIO (10-20); Chloride 113 mmol/L (98-107); Creatinine, Serum 6.37 mg/dL (0.55-1.02); EST Glomerular Filtration Rate 7 mL/min (>60); Est Glom Filt Rate - Afr Amer 8 mL/min (>60); Estimated Creatinine Clearance 5.63 ml/min; Glucose 112 mg/dL (74-106); Potassium 5.3 mmol/L (3.5-5.1); Sodium Level 144 mmol/L (136-145)
[2019-01-13] MEDS: Nitroglycerin Infusion 250 ML 18 MG CONT INF (06:24)
--- NOTE | 2019-01-13 06:51 | PN_ITS ---
Subjective: Patient did well overnight. No acute issues were reported. Patient has been receiving Lasix, but urine output has not been significant. Patient was given a short break for a couple hours last night and tolerated well. Patient wore her BiPAP overnight without difficulty. No bleeding was reported. Patient did not receive unit of packed red blood cells yesterday secondary to concerns for volume status. Objective: Echocardiogram shows an EF of 55% with stage I diastolic dysfunction. Patient does have a small pericardial effusion, but no echocardiographic indications of cardiac tamponade General: Alert, Oriented x3, Cooperative, No apparent distress, - - Slightly slow to respond, but appropriate. Facial edema is improved. HEENT: Atraumatic, PERRLA, EOMI, Normocephalic, - - No scleral icterus or injection noted. Oral: No Gingival or Mucosal Lesions/ Ulcerations, Dry Mucosa Neck: Supple, No Nodes, Trachea Midline, JVD, Right Lungs: No rhonchi, No wheeze, No rales, Diminished, - - Symmetric expansion. No dullness to percussion. Cardiovascular: Regular rate, Regular Rhythm, Normal S1, Normal S2, No murmurs, No rub noted, No Gallop Abdomen: Bowel Sounds Present, Soft, Non Tender, Non-Distended, Obese Extremities: No clubbing, No cyanosis, Edema Skin: No rashes, No breakdown Musculoskeletal: No Tenderness to Palpation of Joints or Extremities Lymphatic: No Cervical, Supraclavicular, or Inguinal Adenopathy Neurological: - - No significant change compared to previous Psych/Mental Status: Appropriate, Flat Affect Vital Signs Temp Pulse Resp BP Pulse Ox 37.0 C 83 17 137/77 H 99 01/13/19 06:00 01/13/19 06:00 01/13/19 06:00 01/13/19 06:00 01/13/19 06:00 Oxygen Flow Rate (L/min) 2 Oxygen Delivery Method Bi-pap Weight: 75.5 kg Body Mass Index (BMI) 29.5 Finger Stick Blood Glucose 104 Intake and Output for Last 24 Hours 01/11/19 01/12/19 01/13/19 23:59 23:59 23:59 Intake Total 368.35 / 368.35 215.65 / 215.65 Output Total 675 / 675 450 / 450 Balance -306.65 / -306.65 -234.35 / -234.35 Labs (Last 48 Hours) 01/12/19 01/12/19 01/12/19 10:35 10:35 10:35 WBC 7.2 RBC 3.17 L Hgb 8.0 L Hct 26.9 L MCV 84.9 MCH 25.2 L MCHC 29.7 L RDW Std Deviation 47.8 H RDW Coeff of Lizett 15.4 H Plt Count 200 MPV 12.2 H Immature Gran % (Auto) 0.400 Neut % (Auto) 60.4 Lymph % (Auto) 23.3 [place] % (Auto) 8.6 Eos % (Auto) 6.0 H Baso % (Auto) 1.3 H Absolute Neuts (auto) 4.3 Absolute Lymphs (auto) 1.67 Nucleated RBC % 0 Differential Comment COMMENT Specimen Type Sample Site pH Bicarbonate Actual POC Total CO2 Base Excess O2 Saturation ABG pCO2 ABG pO2 Min Test O2 Delivery Device Liter Flow Blood Gas Notified Whom Blood Gas Notified Time Sodium 142 Potassium 4.7 Chloride 112 H Carbon Dioxide 22.0 Anion Gap 8 BUN 50 H Creatinine 6.18 H Estim Creat Clear Calc 5.30 Est GFR (MDRD) Af Amer 8 L Est GFR (MDRD) Non-Af 7 L BUN/Creatinine Ratio 8.1 L Glucose 106 Calcium 8.4 L Total Bilirubin 0.50 AST 73 H ALT 59 H Alkaline Phosphatase 152 H Troponin I B-Natriuretic Peptide Total Protein 7.7 Albumin 3.5 Globulin 4.2 Albumin/Globulin Ratio 0.8 L C1 Esterase Inhibitor Pending POC Glucose Blood Type Antibody Screen Crossmatch 01/12/19 01/12/19 01/12/19 10:35 10:35 10:39 WBC RBC Hgb Hct MCV MCH MCHC RDW Std Deviation RDW Coeff of Lizett Plt Count MPV Immature Gran % (Auto) Neut % (Auto) Lymph % (Auto) [place] % (Auto) Eos % (Auto) Baso % (Auto) Absolute Neuts (auto) Absolute Lymphs (auto) Nucleated RBC % Differential Comment Specimen Type Sample Site pH Bicarbonate Actual POC Total CO2 Base Excess O2 Saturation ABG pCO2 ABG pO2 Min Test O2 Delivery Device Liter Flow Blood Gas Notified Whom Blood Gas Notified Time Sodium Potassium Chloride Carbon Dioxide Anion Gap BUN Creatinine Estim Creat Clear Calc Est GFR (MDRD) Af Amer Est GFR (MDRD) Non-Af BUN/Creatinine Ratio Glucose Calcium Total Bilirubin AST ALT Alkaline Phosphatase Troponin I 0.072 H B-Natriuretic Peptide 335.5 H Total Protein Albumin Globulin Albumin/Globulin Ratio C1 Esterase Inhibitor POC Glucose 104 Blood Type Antibody Screen Crossmatch 01/12/19 01/12/19 01/12/19 12:27 16:30 16:30 WBC RBC Hgb Hct MCV MCH MCHC RDW Std Deviation RDW Coeff of Lizett Plt Count MPV Immature Gran % (Auto) Neut % (Auto) Lymph % (Auto) [place] % (Auto) Eos % (Auto) Baso % (Auto) Absolute Neuts (auto) Absolute Lymphs (auto) Nucleated RBC % Differential Comment Specimen Type ART Sample Site R Radial pH 7.30 L Bicarbonate Actual 20.4 L POC Total CO2 22 Base Excess -6 L O2 Saturation 99 ABG pCO2 42.0 ABG pO2 152 H Min Test POS O2 Delivery Device Nasal Can Liter Flow 6.0 Blood Gas Notified Whom ED MD Blood Gas Notified Time 1223 Sodium Potassium Chloride Carbon Dioxide Anion Gap BUN Creatinine Estim Creat Clear Calc Est GFR (MDRD) Af Amer Est GFR (MDRD) Non-Af BUN/Creatinine Ratio Glucose Calcium Total Bilirubin AST ALT Alkaline Phosphatase Troponin I 0.061 H B-Natriuretic Peptide Total Protein Albumin Globulin Albumin/Globulin Ratio C1 Esterase Inhibitor POC Glucose Blood Type O POSITIVE Antibody Screen NEGATIVE Crossmatch See Detail 01/12/19 01/13/19 01/13/19 19:30 04:55 04:55 WBC 6.7 RBC 2.44 L Hgb 6.4 L Hct 20.6 L MCV 84.4 MCH 26.2 L MCHC 31.1 L RDW Std Deviation 45.7 H RDW Coeff of Lizett 14.9 H Plt Count 171 MPV 12.0 Immature Gran % (Auto) 0.600 Neut % (Auto) 78.7 H Lymph % (Auto) 15.9 L [place] % (Auto) 4.5 Eos % (Auto) 0.0 Baso % (Auto) 0.3 Absolute Neuts (auto) 5.3 Absolute Lymphs (auto) 1.06 Nucleated RBC % 0 Differential Comment Specimen Type Sample Site pH Bicarbonate Actual POC Total CO2 Base Excess O2 Saturation ABG pCO2 ABG pO2 Min Test O2 Delivery Device Liter Flow Blood Gas Notified Whom Blood Gas Notified Time Sodium 144 Potassium 5.3 H Chloride 113 H Carbon Dioxide 21.0 Anion Gap 10 BUN 57 H Creatinine 6.37 H Estim Creat Clear Calc 5.63 Est GFR (MDRD) Af Amer 8 L Est GFR (MDRD) Non-Af 7 L BUN/Creatinine Ratio 8.9 L Glucose 112 H Calcium 8.0 L Total Bilirubin AST ALT Alkaline Phosphatase Troponin I 0.054 H B-Natriuretic Peptide Total Protein Albumin Globulin Albumin/Globulin Ratio C1 Esterase Inhibitor POC Glucose Blood Type Antibody Screen Crossmatch Clinical Impression(s) from Imaging Studies Chest X-Ray 01/12/19 11:07 IMPRESSION: Mild to moderate CHF new since prior. Mild to moderate bibasilar subsegmental atelectasis versus infiltrate. Electronically Signed: Dl Stevens MD at 11:37 EDT Tel [phone], Service support , Soft Tissue Neck X-Ray 01/12/19 11:15 IMPRESSION: Unremarkable x-ray examination of soft tissue neck. Electronically Signed: Dl Stevens MD at 11:44 EDT Tel [phone], Service support , Medical Necessity - Tobacco Use Smoking Status: Never smoker Tobacco Use: Non-smoker Assessment/Plan All Active Problems (Last Reviewed 01/12/19 @ 20:02 by Cristofer Rios DO) Acute respiratory failure with hypoxia (Acute) Metabolic acidosis (Acute) Congestive heart failure (Acute) Elevated troponin I level (Acute) Anemia (Acute) Hx of foot surgery (Acute) Hx of thyroidectomy (Acute) Hx of cataract extraction (Acute) Hx of hysterectomy (Acute) Stroke (Acute) CVA (cerebral vascular accident) (Acute) Cough (Acute) Shortness of breath (Acute) Cerebellar infarct (Acute) Speech apraxia (Acute) CVA (cerebral infarction) (Acute) RECOMMENDATIONS: 1. Continue active diuresis 2. Await nephrology recommendations on dialysis 3. We will give breaks of BiPAP as tolerated. Continue with sleep 4. Consider titration up of antihypertensives. Will defer to cardiology 5. PRN albuterol is likely sufficient IMPRESSIONS: 1. Acute hypoxic respiratory failure secondary to probable acute on chronic diastolic congestive heart failure Patient has an echocardiogram showing preserved ejection fraction. Patient has had significant worsening in renal function and this may have led to significant fluid retention. Patient does have some cephalization on chest x- ray. Patient responded well to BiPAP therapy overnight. Patient has been receiving Lasix therapy, but is only -700 cc. That being said, patient's respiratory status does appear to be significantly improved. Will attempt BiPAP breaks through the day today. 2. Elevated troponin/history of stroke Patient has had an echocardiogram in the past showing preserved ejection fraction. Consider repeating echocardiogram and trending troponins. Cardiology has been consulted. Clinical suspicion for supply versus demand mismatch leading to elevated troponin as these never did really reach clinical significant levels. Patient is on telemetry. We will continue to monitor. 3. Metabolic acidosis/anemia Patient likely has an element of anemia of chronic disease/iron deficiency anemia secondary to renal failure. Given hypoxic state, this likely accounts for patient's presenting metabolic acidosis. We will continue to monitor. Patient does not have a significant anion gap to suggest lactic acidosis at this time. No real indication for bicarbonate drip at this time 4. Acute on chronic kidney disease stage IV Unclear etiology at this time. Nephrology has been consulted. Patient appears to be responding to Lasix therapy, but cannot exclude the need for dialysis for fluid removal. Did discuss with the family about the risks and benefits of temporary hemodialysis line and they stated that they would proceed if indicated. 5. Hyperlipidemia/hypertension/glaucoma/advanced age/history of multiple strokes Complicates care, management, recovery and prognosis. Okay to continue antihypertensives from my standpoint. Patient does not have fever or leukocytosis to suggest sepsis secondary to pneumonia at this time. Unclear if patient is able to give consent for changing CODE STATUS. Reportedly, family states that she is stated multiple times that she would want to be aggressive. Patient will be made a full code. Code Visit Inpatient E&M: 59654 Subs Hosp L3
[2019-01-13] MEDS: Metoprolol Tartrate 25 MG Tablet 12.5 MG PO ×2 (08:20→10:18)
[2019-01-13] MEDS: Aspirin E.C. 81 MG Tablet PO (08:20)
[2019-01-13] MEDS: Timolol 0.5% 5ML OPTH.BTL 1 DRP EACH EYE ×2 (08:21→21:05)
[2019-01-13] MEDS: amLODIPine 10 MG Tablet PO (08:21)
[2019-01-13] MEDS: Sodium Polystyrene Sulfonate 15 GM/60 ML UDC PO (08:27)
[2019-01-13 08:44] LABS: AST(SGOT) 33 U/L (15-37); Alanine Aminotransfer ALT/SGPT 38 U/L (13-56); Albumin, Serum 2.7 g/dL (3.2-5.0); Alkaline Phosphatase 113 U/L (45-117); Globulin 3.3 g/dL (2.2-4.2)
[2019-01-13] MEDS: Ondansetron 4 MG/2 ML Vial IV (09:07)
[2019-01-13] MEDS: 0.9% NaCl Peripheral Flush Adult/Peds IV ×2 (09:08→21:06)
--- NOTE | 2019-01-13 09:44 | CM.UR ---
Participated in interdisciplinary rounds this am. 2 daughters present. Continues on nitro drip. Failed early mobility d/t nitro drip so will await therapy evaluations. Remains on bed rest at this time. On room air currently however bipap is on stand by as needed. Marcio Madrigal RN, CCM.
--- NOTE | 2019-01-13 09:45 | CM.UR ---
RN CM Assessment Introduced role of RN CM to patient. Patient is alert and able to participate in RN CM Assessment. Care providers, pharmacy, and demographics verified. two daughters present at bedside (Natty & [place]). Somewhat difficult to really assess. She laughs frequently and doesn't answer question or will say no but then say something else that I didn't understand--then daughter says it was a positive answer to the question. [place] left during the assessment and Natty assisted with most information. Presentation: Shortness of breath Admit Dx: Acute respiratory failure with hypoxia, Metabolic acidosis, Congestive heart failure, Anemia, unspecified, Elevated troponin I level, Chronic renal failure, stage 4 (severe) Re-Admit: No Barriers/Issues: physical ability, low motivation. Not directly answering questions. PCP: Armond Specialists: [facility] for renal Preferred Pharmacy: [facility] Insurance: [employer] Benefit: yes through [employer] LNOK: [place] daughter LW/HPOA: no Living Arrangements: 1 story house with 4 steps in. Denies accessibility problems. Four grandchildren live apartment manager with her--coming and going all the time. ADL?s: Denies needing assistance with anything. When asked if she cooks--couldn't understand her answer but the daughter asked her when she started cooking. States that she has not cooked meals in a long time. States she can grab little things but she is not making meals. States the grand kids will give her stuff to eat when they are there. States that she will often say she already ate but they are not sure she did. Debate as to whether she has a walker. at first said not but then she said she did. Natty states she has never seen it and patient states that doesn't mean I don't have it. Natty states that the patient walks fast and is off balance. Transportation: Community van and family as needed. Does not drive. DME: states she has a bath seat and a grab bar for in/out of shower. questionable as to whether she has a walker. HHC: [facility] and [facility] last year. SNF: None Goal: Asked patient however she did not really verbalize an goal. DC PLAN: TBD will need to continue to follow; wait for PT/OT recommendations. Discussed SNF vs HHC. Marcio Madrigal, RN, CCM.
--- NOTE | 2019-01-13 10:26 | PN.CARD_ITS ---
Subjectve: Patient seen and evaluated. Appears to look quite well and spry today. Objective: Vital Signs Temp Pulse Resp BP Pulse Ox 98.8 F 81 24 H 141/69 H 96 01/13/19 08:25 01/13/19 10:18 01/13/19 08:25 01/13/19 10:18 01/13/19 08:25 Oxygen Flow Rate (L/min) 2 Oxygen Delivery Method Room Air Weight: 166 lb 7.184 oz Body Mass Index (BMI) 29.5 Finger Stick Blood Glucose 104 Intake and Output for Last 24 Hours 01/11/19 01/12/19 01/13/19 23:59 23:59 23:59 Intake Total 368.35 / 368.35 302.95 / 302.95 Output Total 675 / 675 450 / 450 Balance -306.65 / -306.65 -147.05 / -147.05 General: Awake, Alert, Oriented x 3 HEENT: PERRL, EOMI, Sclera Non Icteric, Pallor Neck: Supple, Good ROM, No Lymph Node Enlargement Lungs: Diminished Pradeep Bases Cardiovascular: Regular Rhythm, Normal S1, Normal S2, No Murmurs, No Rubs, No Gallops Vascular: No Carotid Bruits, Normal Femoral Pulses, Normal Radial Pulses, Normal Dorsalis Pedal Pulse, Normal Posterior Tibial Pulses Abdomen: Bowel Sounds Present, Soft, Non Tender, No HSM, No Organomegaly Extremities: No Cyanosis, No Clubbing, No edema Musculoskeletal: No Erythema Skin: No Rashes Lymphatic: No Lymph Node Enlargement Neurological: No Focal Motor or Sensory Deficit Psych/Mental Status: Appropriate 01/12/19 10:35: WBC 7.2, RBC 3.17 L, Hgb 8.0 L, Hct 26.9 L, MCV 84.9, MCH 25.2 L , MCHC 29.7 L, Plt Count 200, MPV 12.2 H, Immature Gran % (Auto) 0.400, Neut % (Auto) 60.4, Lymph % (Auto) 23.3, [place] % (Auto) 8.6, Eos % (Auto) 6.0 H, Baso % (Auto) 1.3 H, Absolute Neuts (auto) 4.3, Nucleated RBC % 0 01/12/19 10:35: Sodium 142, Potassium 4.7, Chloride 112 H, Carbon Dioxide 22.0, Anion Gap 8, BUN 50 H, Creatinine 6.18 H, Est GFR (MDRD) Af Amer 8 L, Est GFR (MDRD) Non-Af 7 L, BUN/Creatinine Ratio 8.1 L, Glucose 106, Calcium 8.4 L, Total Bilirubin 0.50 01/12/19 10:35: Troponin I 0.072 H 01/12/19 10:35: B-Natriuretic Peptide 335.5 H 01/12/19 12:27: pH 7.30 L, Bicarbonate Actual 20.4 L, POC Total CO2 22, Base Excess -6 L, O2 Saturation 99, ABG pCO2 42.0, ABG pO2 152 H, Min Test POS 01/12/19 16:30: Troponin I 0.061 H 01/12/19 19:30: Troponin I 0.054 H 01/13/19 04:55: WBC 6.7, RBC 2.44 L, Hgb 6.4 L, Hct 20.6 L, MCV 84.4, MCH 26.2 L , MCHC 31.1 L, Plt Count 171, MPV 12.0, Immature Gran % (Auto) 0.600, Neut % (Auto) 78.7 H, Lymph % (Auto) 15.9 L, [place] % (Auto) 4.5, Eos % (Auto) 0.0, Baso % (Auto) 0.3, Absolute Neuts (auto) 5.3, Nucleated RBC % 0 01/13/19 04:55: Sodium 144, Potassium 5.3 H, Chloride 113 H, Carbon Dioxide 21.0, Anion Gap 10, BUN 57 H, Creatinine 6.37 H, Est GFR (MDRD) Af Amer 8 L, Est GFR (MDRD) Non-Af 7 L, BUN/Creatinine Ratio 8.9 L, Glucose 112 H, Calcium 8.0 L 01/13/19 04:55: Total Bilirubin 0.30, Direct Bilirubin 0.10 Rhythm: EKG: ECHO: Stress Test: Cardiac Cath: PCI: CT Surgery: Holter monitor: EPS: PPM: CXR: Chest CT Scan: Medical Necessity - Tobacco Use Smoking Status: Never smoker Tobacco Use: Non-smoker Assessment/Plan 1. Acute diastolic congestive heart failure * Patient presents with shortness of breath which is likely secondary to diastolic heart failure. * Recommendation will be to aggressively treat the blood pressure with intravenous nitroglycerin and transition to oral nitrates and beta-ramon * The etiology is not clear at this time but certainly hypertensive emergency could be a contributing factor. Coronary disease cannot be completely excluded especially at age. * She will be started on a beta-ramon at this time. * We will try and wean off the IV nitroglycerin today 2. Hypertension * Her blood pressure appears to be rather high and I recommend using intravenous Lasix at this particular time. * Will transition to a calcium channel ramon and a beta-ramon. * 3. Progressive renal failure * Is likely contributing to the accelerated hypertension. Will defer to the aileen al service for further management on this * 4. Anemia * Patient is noted to have significant anemia likely secondary to renal disease. With a hemoglobin closer to 6 I would agree with transfusion at this time * 5. Non-ST elevation myocardial infarction abnormal cardiac enzymes * Demand ischemia is a possibility especially with a markedly elevated blood pressure. Her echocardiogram demonstrated preserved ejection fraction with no obvious wall motion abnormality. * We will continue to monitor for now. * * Thank you for allowing me to participate in the care of your patient. Please don't hesitate to call if any issues arise
[2019-01-13] MEDS: Isosorbide Mononitrate 60 MG Tablet PO (11:27)
[2019-01-13] MEDS: Metoprolol Tartrate 50 MG Tablet PO ×2 (11:28→21:05)
--- NOTE | 2019-01-13 16:30 | PN_ITS ---
Patient Problems: Active and Suspected Problems (Last Reviewed 01/12/19 @ 20:02 by Cristofer Rios DO) Acute respiratory failure with hypoxia (Acute) Metabolic acidosis (Acute) Congestive heart failure (Acute) Elevated troponin I level (Acute) Subjective: Patient was seen and examined today, she is off oxygen at this time, I have reviewed the notes from critical care and cardiology. Patient's creatinine is essentially unchanged from yesterday, she does not appear to be in any distress, she has no complaints of chest pain or shortness of breath. Patient remains confused-this is probably her baseline as she has a history of dementia. - Physical Exam General: Alert, Cooperative, No apparent distress, Well developed, Well nourished HEENT: Atraumatic, PERRLA, EOMI, Normocephalic Oral: Moist Mucosa Neck: Supple, Trachea Midline, Thyroid Normal Size and Texture Lungs: Clear to auscultation, Normal air movement, No rhonchi, No wheeze, No rales Cardiovascular: Regular rate, Regular Rhythm, Normal S1, Normal S2, No murmurs, No Ectopic Activity Abdomen: Bowel Sounds Present, Soft, Non Tender, Non-Distended, No hernias noted Extremities: No clubbing, No cyanosis, No edema, Capillary Refill Less than 3 Seconds Skin: No rashes, No breakdown Musculoskeletal: No Tenderness to Palpation of Joints or Extremities Neurological: Cranial nerves II-XII grossly intact, Neuro grossly intact, Sensory exam intact to light touch and pain, Coordination normal Psych/Mental Status: - - Patient is alert, she is confused, she is not agitated Vital Signs Temp Pulse Resp BP Pulse Ox 98.3 F 74 20 H 142/75 H 92 01/13/19 12:00 01/13/19 12:03 01/13/19 12:00 01/13/19 12:00 01/13/19 12:00 Oxygen Flow Rate (L/min) 2 Oxygen Delivery Method Room Air Weight: 75.5 kg Body Mass Index (BMI) 29.5 Finger Stick Blood Glucose 104 Intake and Output for Last 24 Hours 01/11/19 01/12/19 01/13/19 23:59 23:59 23:59 Intake Total 368.35 / 368.35 1097.45 / 1097.45 Output Total 675 / 675 1050 / 1050 Balance -306.65 / -306.65 47.45 / 47.45 Laboratory Tests Past 24 Hrs 01/12/19 01/12/19 01/12/19 16:30 16:30 19:30 WBC RBC Hgb Hct MCV MCH MCHC RDW Std Deviation RDW Coeff of Lizett Plt Count MPV Immature Gran % (Auto) Neut % (Auto) Lymph % (Auto) [place] % (Auto) Eos % (Auto) Baso % (Auto) Absolute Neuts (auto) Absolute Lymphs (auto) Nucleated RBC % Sodium Potassium Chloride Carbon Dioxide Anion Gap BUN Creatinine Estim Creat Clear Calc Est GFR (MDRD) Af Amer Est GFR (MDRD) Non-Af BUN/Creatinine Ratio Glucose Calcium Total Bilirubin Direct Bilirubin AST ALT Alkaline Phosphatase Troponin I 0.061 H 0.054 H Total Protein Albumin Globulin Blood Type O POSITIVE Antibody Screen NEGATIVE Crossmatch See Detail 01/13/19 01/13/19 01/13/19 04:55 04:55 04:55 WBC 6.7 RBC 2.44 L Hgb 6.4 L Hct 20.6 L MCV 84.4 MCH 26.2 L MCHC 31.1 L RDW Std Deviation 45.7 H RDW Coeff of Lizett 14.9 H Plt Count 171 MPV 12.0 Immature Gran % (Auto) 0.600 Neut % (Auto) 78.7 H Lymph % (Auto) 15.[address] [place] % (Auto) 4.5 Eos % (Auto) 0.0 Baso % (Auto) 0.3 Absolute Neuts (auto) 5.3 Absolute Lymphs (auto) 1.06 Nucleated RBC % 0 Sodium 144 Potassium 5.3 H Chloride 113 H Carbon Dioxide 21.0 Anion Gap 10 BUN 57 H Creatinine 6.37 H Estim Creat Clear Calc 5.63 Est GFR (MDRD) Af Amer 8 L Est GFR (MDRD) Non-Af 7 L BUN/Creatinine Ratio 8.9 L Glucose 112 H Calcium 8.0 L Total Bilirubin 0.30 Direct Bilirubin 0.10 AST 33 ALT 38 Alkaline Phosphatase 113 Troponin I Total Protein 6.0 L Albumin 2.7 L Globulin 3.3 Blood Type Antibody Screen Crossmatch Medical Necessity - Tobacco Use Smoking Status: Never smoker Tobacco Use: Non-smoker Assessment/Plan All Active Problems (Last Reviewed 01/12/19 @ 20:02 by Cristofer Rios DO) Acute respiratory failure with hypoxia (Acute) Metabolic acidosis (Acute) Congestive heart failure (Acute) Elevated troponin I level (Acute) Hx of foot surgery (Resolved) Hx of thyroidectomy (Resolved) Hx of cataract extraction (Resolved) Hx of hysterectomy (Resolved) Stroke (Resolved) CVA (cerebral vascular accident) (Resolved) Cough (Resolved) Shortness of breath (Acute) Cerebellar infarct (Resolved) CVA (cerebral infarction) (Resolved) #1 acute hypoxic respiratory failure secondary to acute diastolic congestive heart failure-continue present treatment #2 acute diastolic congestive heart failure-etiology unclear at this point, most probably secondary to hypertension, continue aggressive blood pressure control #3 acute renal failure on chronic kidney disease stage V due to hypertension-nephrology will participate in her care-continue to monitor labs #4 iron deficiency anemia-secondary to chronic kidney disease-IV Venofer will be administered, labs will be monitored #5 Hypertensive emergency-again it is believed that this is what caused the patient's acute diastolic congestive heart failure, cardiology is adjusting the blood pressure medications #6 cerebrovascular disease with prior history of stroke #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 Pulmonary medicine/critical care will evaluate the patient Prognosis is guarded at this time Code Visit Inpatient E&M: 38886 Subs Hosp L2
[2019-01-13] MEDS: Nitroglycerin Infusion 250 ML 27 MG CONT INF (16:54)
[2019-01-13] MEDS: Atorvastatin Calcium 40 MG Tablet PO (21:05)
[2019-01-13] MEDS: Latanoprost 0.005% 1 Bottle 1 DRP RIGHT EYE (21:06)
[2019-01-14] VITALS (23 sets, daily range): BP systolic 114–147; BP diastolic 59–93; PULSE 61–97; RESP 13–23; TEMP 36.4–37.1; O2SAT 92–99
[2019-01-14 04:24] LABS: Absolute Lymphocyte Count 2.22 X10^3/uL (0.83-4.51); Basophil# 0.06 X10^3/uL; Basophil% 0.6 % (0-1); Eosinophil# 0.05 X10^3/uL; Eosinophils% 0.5 % (0-5); Hemoglobin 7.9 g/dL (12.0-15.0); Lymphocyte # 2.22 X10^3/ul (4.0); Lymphocyte % 23.8 % (19-41); Mean Corp Hgb Conc 31.6 g/dL (32-36); Mean Corpuscular Hgb 27.4 pg (27.0-32.0); Mean Corpuscular Volume 86.8 fL (81-99); Mean Platelet Vol. 11.5 fl (6.2-12.0); Monocyte# 0.98 X10^3/uL; Monocyte% 10.5 % (0-10); NRBC Flagged by Analyzer 0 % (0-5); Neutrophil # 5.97 X10^3/uL (2.7-7.7); Neutrophil % 64.3 % (47-70); Platelet Count 171 K/mm3 (150-450); RBC Distribution Width SD 50.4 fl (35.1-43.9); Red Blood Count 2.88 M/mm3 (4.2-5.4); White Blood Count 9.3 K/mm3 (4.4-11.0)
[2019-01-14 04:39] LABS: Albumin, Serum 2.8 g/dL (3.2-5.0); BUN 63 mg/dL (7-18); BUN/Creat Ratio 9.3 RATIO (10-20); Calcium,Total 7.6 mg/dL (8.5-10.1); Chloride 111 mmol/L (98-107); EST Glomerular Filtration Rate 6 mL/min (>60); Est Glom Filt Rate - Afr Amer 8 mL/min (>60); Estimated Creatinine Clearance 5.28 ml/min; Glucose 83 mg/dL (74-106); Phosphorus 6.3 mg/dL (2.5-4.9); Potassium 4.7 mmol/L (3.5-5.1); Sodium Level 144 mmol/L (136-145)
[2019-01-14] MEDS: Furosemide 40 MG/4 ML Vial IV (05:07)
[2019-01-14] MEDS: Heparin Injection (Vial) 5,000 UNIT/ML VIAL 5000 UNIT SC ×3 (05:07→20:55)
[2019-01-14] MEDS: Levothyroxine 100 MCG Tablet PO (05:07)
[2019-01-14] MEDS: 0.9% NaCl Peripheral Flush Adult/Peds IV (05:10)
--- NOTE | 2019-01-14 06:54 | PCM.PN.INT ---
Subjective: Patient did okay overnight. No acute issues were reported. Patient was on BiPAP for approximately 4-1/2 hours with sleep, but tolerated during the day without difficulty. Patient with no complaints this morning. Patient was placed on 2 L nasal cannula with sleep when BiPAP was not in place. Patient's nitroglycerin is slightly improved compared to previous. Urine output is slightly improved. General: Alert, Oriented x3, Cooperative, No apparent distress, - - Slow to respond. HEENT: Atraumatic, PERRLA, EOMI, Normocephalic, - - No scleral icterus or injection noted Oral: Moist Mucosa, No Gingival or Mucosal Lesions/ Ulcerations Neck: Supple, No Nodes, Trachea Midline, JVD, Right Lungs: No rhonchi, No wheeze, Diminished, Rales - Posterior bases, - - Symmetric expansion. Cardiovascular: Regular rate, Regular Rhythm, Normal S1, Normal S2, No murmurs, No rub noted, No Gallop Abdomen: Bowel Sounds Present, Soft, Non Tender, Non-Distended, Obese Extremities: No clubbing, No cyanosis, Capillary Refill Less than 3 Seconds, Edema Skin: No rashes, No breakdown Musculoskeletal: No Tenderness to Palpation of Joints or Extremities Lymphatic: No Cervical, Supraclavicular, or Inguinal Adenopathy Neurological: Cranial nerves II-XII grossly intact, Neuro grossly intact, Motor Exam 5/5 strength throughout Psych/Mental Status: Alert and oriented to time, place, person, mood and affect Vital Signs Temp Pulse Resp BP Pulse Ox 36.4 C L 63 23 H 132/78 H 98 01/14/19 06:00 01/14/19 06:00 01/14/19 06:00 01/14/19 06:00 01/14/19 06:00 Oxygen Flow Rate (L/min) 2 Oxygen Delivery Method Nasal Cannula Weight: 75.5 kg Body Mass Index (BMI) 29.5 Finger Stick Blood Glucose 104 Intake and Output for Last 24 Hours 01/12/19 01/13/19 01/14/19 23:59 23:59 23:59 Intake Total 368.35 / 368.35 2133.60 / 2135.85 80.80 / 80.80 Output Total 675 / 675 1974 / 1974 500 / 500 Balance -306.65 / -306.65 158.60 / 160.85 -419.20 / -419.20 Labs (Last 48 Hours) 01/12/19 01/12/19 01/12/19 10:35 10:35 10:35 WBC 7.2 RBC 3.17 L Hgb 8.0 L Hct 26.9 L MCV 84.9 MCH 25.2 L MCHC 29.7 L RDW Std Deviation 47.8 H RDW Coeff of Lizett 15.4 H Plt Count 200 MPV 12.2 H Immature Gran % (Auto) 0.400 Neut % (Auto) 60.4 Lymph % (Auto) 23.3 [place] % (Auto) 8.6 Eos % (Auto) 6.0 H Baso % (Auto) 1.3 H Absolute Neuts (auto) 4.3 Absolute Lymphs (auto) 1.67 Nucleated RBC % 0 Differential Comment COMMENT Specimen Type Sample Site pH Bicarbonate Actual POC Total CO2 Base Excess O2 Saturation ABG pCO2 ABG pO2 Min Test O2 Delivery Device Liter Flow Blood Gas Notified Whom Blood Gas Notified Time Sodium 142 Potassium 4.7 Chloride 112 H Carbon Dioxide 22.0 Anion Gap 8 BUN 50 H Creatinine 6.18 H Estim Creat Clear Calc 5.30 Est GFR (MDRD) Af Amer 8 L Est GFR (MDRD) Non-Af 7 L BUN/Creatinine Ratio 8.1 L Glucose 106 Calcium 8.4 L Phosphorus Total Bilirubin 0.50 Direct Bilirubin AST 73 H ALT 59 H Alkaline Phosphatase 152 H Troponin I B-Natriuretic Peptide Total Protein 7.7 Albumin 3.5 Globulin 4.2 Albumin/Globulin Ratio 0.8 L C1 Esterase Inhibitor Pending POC Glucose Blood Type Antibody Screen Crossmatch 01/12/19 01/12/19 01/12/19 10:35 10:35 10:39 WBC RBC Hgb Hct MCV MCH MCHC RDW Std Deviation RDW Coeff of [place] Plt Count MPV Immature Gran % (Auto) Neut % (Auto) Lymph % (Auto) [place] % (Auto) Eos % (Auto) Baso % (Auto) Absolute Neuts (auto) Absolute Lymphs (auto) Nucleated RBC % Differential Comment Specimen Type Sample Site pH Bicarbonate Actual POC Total CO2 Base Excess O2 Saturation ABG pCO2 ABG pO2 Min Test O2 Delivery Device Liter Flow Blood Gas Notified Whom Blood Gas Notified Time Sodium Potassium Chloride Carbon Dioxide Anion Gap BUN Creatinine Estim Creat Clear Calc Est GFR (MDRD) Af Amer Est GFR (MDRD) Non-Af BUN/Creatinine Ratio Glucose Calcium Phosphorus Total Bilirubin Direct Bilirubin AST ALT Alkaline Phosphatase Troponin I 0.072 H B-Natriuretic Peptide 335.5 H Total Protein Albumin Globulin Albumin/Globulin Ratio C1 Esterase Inhibitor POC Glucose 104 Blood Type Antibody Screen Crossmatch 01/12/19 01/12/19 01/12/19 12:27 16:30 16:30 WBC RBC Hgb Hct MCV MCH MCHC RDW Std Deviation RDW Coeff of [place] Plt Count MPV Immature Gran % (Auto) Neut % (Auto) Lymph % (Auto) [place] % (Auto) Eos % (Auto) Baso % (Auto) Absolute Neuts (auto) Absolute Lymphs (auto) Nucleated RBC % Differential Comment Specimen Type ART Sample Site R Radial pH 7.30 L Bicarbonate Actual 20.4 L POC Total CO2 22 Base Excess -6 L O2 Saturation 99 ABG pCO2 42.0 ABG pO2 152 H Min Test POS O2 Delivery Device Nasal Can Liter Flow 6.0 Blood Gas Notified Whom ED MD Blood Gas Notified Time 1223 Sodium Potassium Chloride Carbon Dioxide Anion Gap BUN Creatinine Estim Creat Clear Calc Est GFR (MDRD) Af Amer Est GFR (MDRD) Non-Af BUN/Creatinine Ratio Glucose Calcium Phosphorus Total Bilirubin Direct Bilirubin AST ALT Alkaline Phosphatase Troponin I 0.061 H B-Natriuretic Peptide Total Protein Albumin Globulin Albumin/Globulin Ratio C1 Esterase Inhibitor POC Glucose Blood Type O POSITIVE Antibody Screen NEGATIVE Crossmatch See Detail 01/12/19 01/13/19 01/13/19 19:30 04:55 04:55 WBC 6.7 RBC 2.44 L Hgb 6.4 L Hct 20.6 L MCV 84.4 MCH 26.2 L MCHC 31.1 L RDW Std Deviation 45.7 H RDW Coeff of [place] 14.9 H Plt Count 171 MPV 12.0 Immature Gran % (Auto) 0.600 Neut % (Auto) 78.7 H Lymph % (Auto) 15.9 L [place] % (Auto) 4.5 Eos % (Auto) 0.0 Baso % (Auto) 0.3 Absolute Neuts (auto) 5.3 Absolute Lymphs (auto) 1.06 Nucleated RBC % 0 Differential Comment Specimen Type Sample Site pH Bicarbonate Actual POC Total CO2 Base Excess O2 Saturation ABG pCO2 ABG pO2 Min Test O2 Delivery Device Liter Flow Blood Gas Notified Whom Blood Gas Notified Time Sodium 144 Potassium 5.3 H Chloride 113 H Carbon Dioxide 21.0 Anion Gap 10 BUN 57 H Creatinine 6.37 H Estim Creat Clear Calc 5.63 Est GFR (MDRD) Af Amer 8 L Est GFR (MDRD) Non-Af 7 L BUN/Creatinine Ratio 8.9 L Glucose 112 H Calcium 8.0 L Phosphorus Total Bilirubin Direct Bilirubin AST ALT Alkaline Phosphatase Troponin I 0.054 H B-Natriuretic Peptide Total Protein Albumin Globulin Albumin/Globulin Ratio C1 Esterase Inhibitor POC Glucose Blood Type Antibody Screen Crossmatch 01/13/19 01/14/19 01/14/19 04:55 04:15 04:15 WBC 9.3 RBC 2.88 L Hgb 7.9 L Hct 25.0 L MCV 86.8 MCH 27.4 MCHC 31.6 L RDW Std Deviation 50.4 H RDW Coeff of [place] 16.0 H Plt Count 171 MPV 11.5 Immature Gran % (Auto) 0.300 Neut % (Auto) 64.3 Lymph % (Auto) 23.8 [place] % (Auto) 10.5 H Eos % (Auto) 0.5 Baso % (Auto) 0.6 Absolute Neuts (auto) 6.0 Absolute Lymphs (auto) 2.22 Nucleated RBC % 0 Differential Comment Specimen Type Sample Site pH Bicarbonate Actual POC Total CO2 Base Excess O2 Saturation ABG pCO2 ABG pO2 Min Test O2 Delivery Device Liter Flow Blood Gas Notified Whom Blood Gas Notified Time Sodium 144 Potassium 4.7 Chloride 111 H Carbon Dioxide 23.0 Anion Gap BUN 63 H Creatinine 6.80 H Estim Creat Clear Calc 5.28 Est GFR (MDRD) Af Amer 8 L Est GFR (MDRD) Non-Af 6 L BUN/Creatinine Ratio 9.3 L Glucose 83 Calcium 7.6 L Phosphorus 6.3 H Total Bilirubin 0.30 Direct Bilirubin 0.10 AST 33 ALT 38 Alkaline Phosphatase 113 Troponin I B-Natriuretic Peptide Total Protein 6.0 L Albumin 2.7 L 2.8 L Globulin 3.3 Albumin/Globulin Ratio C1 Esterase Inhibitor POC Glucose Blood Type Antibody Screen Crossmatch Medical Necessity - Tobacco Use Smoking Status: Never smoker Tobacco Use: Non-smoker Assessment/Plan All Active Problems (Last Updated 01/13/19 @ 16:35 by Cristofer Rios DO) Acute respiratory failure with hypoxia (Acute) Metabolic acidosis (Acute) Congestive heart failure (Acute) Elevated troponin I level (Acute) Hx of foot surgery (Resolved) Hx of thyroidectomy (Resolved) Hx of cataract extraction (Resolved) Hx of hysterectomy (Resolved) Stroke (Resolved) CVA (cerebral vascular accident) (Resolved) Cough (Resolved) Shortness of breath (Acute) Cerebellar infarct (Resolved) CVA (cerebral infarction) (Resolved) RECOMMENDATIONS: 1. Continue active diuresis 2. Await nephrology recommendations on dialysis 3. We will give breaks of BiPAP as tolerated. Continue with sleep 4. Consider titration up of antihypertensives. Will defer to cardiology 5. Okay to leave the intensive care unit from my perspective once off of nitroglycerin 6. Add coags to morning labs in case tunneled hemodialysis line is requested IMPRESSIONS: 1. Acute hypoxic respiratory failure secondary to probable acute on chronic diastolic congestive heart failure Patient has an echocardiogram showing preserved ejection fraction. Patient has had significant worsening in renal function and this may have led to significant fluid retention. Patient does have some cephalization on chest x-ray. Patient responded well to BiPAP therapy overnight. Patient has been receiving Lasix therapy, but weight is unchanged from admission. That being said, patient's respiratory status does appear to be significantly improved. We will continue BiPAP breaks during the day. Patient would benefit from BiPAP with sleep. 2. Elevated troponin/history of stroke Patient has had an echocardiogram in the past showing preserved ejection fraction. Echocardiogram is relatively unchanged, but does have a small pericardial effusion with no signs of cardiac tamponade. Cardiology has been consulted. Clinical suspicion for supply versus demand mismatch leading to elevated troponin as these never did really reach clinical significant levels. Patient is on telemetry. We will continue to monitor. 3. Metabolic acidosis/anemia Patient likely has an element of anemia of chronic disease/iron deficiency anemia secondary to renal failure. Given hypoxic state, this likely accounts for patient's presenting metabolic acidosis. We will continue to monitor. Patient does not have a significant anion gap to suggest lactic acidosis at this time. No real indication for bicarbonate drip at this time 4. Acute on chronic kidney disease stage IV Unclear etiology at this time. Nephrology has been consulted. Patient appears to be responding to Lasix therapy from a respiratory standpoint, but cannot exclude the need for dialysis for monitoring acidosis. Did discuss with the family about the risks and benefits of temporary hemodialysis line and they stated that they would proceed if indicated. Given patient's relatively stable state, evaluation for tunneled hemodialysis line may be more appropriate if indicated during this hospitalization. 5. Hyperlipidemia/hypertension/glaucoma/advanced age/history of multiple strokes Complicates care, management, recovery and prognosis. Okay to continue antihypertensives from my standpoint. Patient does not have fever or leukocytosis to suggest sepsis secondary to pneumonia at this time. Unclear if patient is able to give consent for changing CODE STATUS. Reportedly, family states that she is stated multiple times that she would want to be aggressive. Patient will be made a full code. Code Visit Inpatient E&M: 79020 Subs Hosp L3
--- NOTE | 2019-01-14 07:50 | RAD_ITS ---
STUDY: X-RAY CHEST REASON FOR EXAM: Female, 83 years old. CHF with hypoxia TECHNIQUE: Single AP portable view of the chest. COMPARISON: 01/12/2019 FINDINGS: There is hyperinflation of the lungs consistent with chronic obstructive lung disease (COPD). No acute airspace disease. Previously identified bibasilar airspace disease and small right effusion has essentially resolved. Stable cardiomegaly. Remainder is unchanged RAD/Chest 1 View (Portable) IMPRESSION: Significant improvement as compared to 2 days prior Electronically Signed: Xavier Wisdom DO at 8:31 EDT Tel , Service support ,
[2019-01-14] MEDS: amLODIPine 10 MG Tablet PO (09:25)
[2019-01-14] MEDS: Isosorbide Mononitrate 60 MG Tablet PO (09:25)
[2019-01-14] MEDS: Aspirin E.C. 81 MG Tablet PO (09:25)
[2019-01-14] MEDS: Timolol 0.5% 5ML OPTH.BTL 1 DRP EACH EYE ×2 (09:25→20:57)
[2019-01-14] MEDS: Metoprolol Tartrate 50 MG Tablet PO ×2 (09:25→20:56)
--- NOTE | 2019-01-14 10:14 | PN.CARD_ITS ---
Subjectve: Patient seen and evaluated. Appears to be stable this morning. Objective: Vital Signs Temp Pulse Resp BP Pulse Ox 98.3 F 63 20 H 135/63 H 94 01/14/19 09:00 01/14/19 09:25 01/14/19 09:00 01/14/19 09:00 01/14/19 09:00 Oxygen Flow Rate (L/min) 2 Oxygen Delivery Method Room Air Weight: 166 lb 7.184 oz Body Mass Index (BMI) 29.5 Finger Stick Blood Glucose 104 Intake and Output for Last 24 Hours 01/12/19 01/13/19 01/14/19 23:59 23:59 23:59 Intake Total 368.35 / 368.35 2133.60 / 2135.85 199.20 / 199.20 Output Total 675 / 675 1974 / 1974 500 / 500 Balance -306.65 / -306.65 158.60 / 160.85 -300.80 / -300.80 General: Awake, Alert, Oriented x 3 HEENT: PERRL, EOMI, Sclera Non Icteric Neck: Supple, Good ROM, No Lymph Node Enlargement Lungs: Clear to auscultation Cardiovascular: Regular Rhythm, Normal S1, Normal S2, No Murmurs, No Rubs, No Gallops 01/14/19 04:15: Sodium 144, Potassium 4.7, Chloride 111 H, Carbon Dioxide 23.0, BUN 63 H, Creatinine 6.80 H, Est GFR (MDRD) Af Amer 8 L, Est GFR (MDRD) Non-Af 6 L, BUN/Creatinine Ratio 9.3 L, Glucose 83, Calcium 7.6 L, Phosphorus 6.3 H 01/14/19 04:15: WBC 9.3, RBC 2.88 L, Hgb 7.9 L, Hct 25.0 L, MCV 86.8, MCH 27.4, MCHC 31.6 L, Plt Count 171, MPV 11.5, Immature Gran % (Auto) 0.300, Neut % (Auto) 64.3, Lymph % (Auto) 23.8, [place] % (Auto) 10.5 H, Eos % (Auto) 0.5, Baso % (Auto) 0.6, Absolute Neuts (auto) 6.0, Nucleated RBC % 0 Rhythm: EKG: ECHO: Stress Test: Cardiac Cath: PCI: CT Surgery: Holter monitor: EPS: PPM: CXR: Chest CT Scan: Medical Necessity - Tobacco Use Smoking Status: Never smoker Tobacco Use: Non-smoker Assessment/Plan 1. Acute diastolic congestive heart failure * Patient presents with shortness of breath which is likely secondary to diastolic heart failure. * Recommendation will be to aggressively treat the blood pressure with intravenous nitroglycerin and transition to oral nitrates and beta-ramon * The etiology is not clear at this time but certainly hypertensive emergency could be a contributing factor. Coronary disease cannot be completely excluded especially at age. * She will be continued on a beta-ramon at this time. * We will try and wean off the IV nitroglycerin today. Which has been just done. Oral isosorbide will be started 2. Hypertension * Her blood pressure appears to be rather high and I recommend using intravenous Lasix at this particular time. * Will transition to a calcium channel ramon and a beta-ramon. * 3. Progressive renal failure * Is likely contributing to the accelerated hypertension. Will defer to the renal service for further management on this * 4. Anemia * Patient is noted to have significant anemia likely secondary to renal disease. * The patient was transfused and will continue with Venofer infusions * 5. Non-ST elevation myocardial infarction abnormal cardiac enzymes * Demand ischemia is a possibility especially with a markedly elevated blood pressure. Her echocardiogram demonstrated preserved ejection fraction with no obvious wall motion abnormality. * We will continue to monitor for now. * * Thank you for allowing me to participate in the care of your patient. Please don't hesitate to call if any issues arise
--- NOTE | 2019-01-14 14:28 | PN.RENAL_ITS ---
Patient Problems: Active and Suspected Problems (Last Updated 01/13/19 @ 16:35 by Cristofer Rios DO) Dementia (Acute) Acute respiratory failure with hypoxia (Acute) Metabolic acidosis (Acute) Congestive heart failure (Acute) Elevated troponin I level (Acute) Subjective: resting comfortably without oxygen. Transferred to PCU. PT dtr at bedside. Creatinine 6.8 today. Denied nausea, vomiting, SOB. No edema, CP. Walked to chair without issues. - Physical Exam General: - - drowsy Oral: Dry Mucosa Neck: Supple Lungs: Clear to auscultation Cardiovascular: Regular rate, No rub noted Abdomen: Bowel Sounds Present, Soft, Non Tender, Non-Distended Extremities: No edema Neurological: - - no tremor Psych/Mental Status: Appropriate Vital Signs Temp Pulse Resp BP Pulse Ox 97.6 F L 71 16 128/64 H 93 01/14/19 14:21 01/14/19 14:21 01/14/19 14:21 01/14/19 14:21 01/14/19 14:21 Oxygen Flow Rate (L/min) 2 Oxygen Delivery Method Room Air Weight: 75.5 kg Body Mass Index (BMI) 29.5 Finger Stick Blood Glucose 104 Intake and Output for Last 24 Hours 01/12/19 01/13/19 01/14/19 23:59 23:59 23:59 Intake Total 368.35 / 368.35 2133.60 / 2135.85 599.20 / 599.20 Output Total 675 / 675 1974 / 1974 500 / 500 Balance -306.65 / -306.65 158.60 / 160.85 99.20 / 99.20 Laboratory Tests Past 24 Hrs 01/12/19 01/14/19 01/14/19 16:30 04:15 04:15 WBC 9.3 RBC 2.88 L Hgb 7.9 L Hct 25.0 L MCV 86.8 MCH 27.4 MCHC 31.6 L RDW Std Deviation 50.4 H RDW Coeff of [place] 16.0 H Plt Count 171 MPV 11.5 Immature Gran % (Auto) 0.300 Neut % (Auto) 64.3 Lymph % (Auto) 23.8 [place] % (Auto) 10.5 H Eos % (Auto) 0.5 Baso % (Auto) 0.6 Absolute Neuts (auto) 6.0 Absolute Lymphs (auto) 2.22 Nucleated RBC % 0 Sodium 144 Potassium 4.7 Chloride 111 H Carbon Dioxide 23.0 BUN 63 H Creatinine 6.80 H Estim Creat Clear Calc 5.28 Est GFR (MDRD) Af Amer 8 L Est GFR (MDRD) Non-Af 6 L BUN/Creatinine Ratio 9.3 L Glucose 83 Calcium 7.6 L Phosphorus 6.3 H Albumin 2.8 L Crossmatch See Detail Medical Necessity - Tobacco Use Smoking Status: Never smoker Tobacco Use: Non-smoker Assessment/Plan All Active Problems (Last Updated 01/13/19 @ 16:35 by Cristofer Rios DO) Dementia (Acute) Acute respiratory failure with hypoxia (Acute) Metabolic acidosis (Acute) Congestive heart failure (Acute) Elevated troponin I level (Acute) Hx of foot surgery (Resolved) Hx of thyroidectomy (Resolved) Hx of cataract extraction (Resolved) Hx of hysterectomy (Resolved) Stroke (Resolved) CVA (cerebral vascular accident) (Resolved) Cough (Resolved) Shortness of breath (Acute) Cerebellar infarct (Resolved) CVA (cerebral infarction) (Resolved) 1. 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 Lost to f/u in office. Discussed with pt dtr at bedside possible dialysis with tunneled catheter if renal fxn does not improve to baseline of 4. Will hold on initiating dialysis today. 24h CRCL 16cc/min with SCr 4.0, 3.8g total protein in October 2018. 2. Acute CHF resolved. Hold lasix today. Oxygenation stable on RA. 3. Iron def anemia s/p prbc today, iv iron. Check in am. 4. HTN BP stable 5. dementia 6. metabolic encephalopathy
--- NOTE | 2019-01-14 18:50 | PN_ITS ---
Patient Problems: Active and Suspected Problems (Last Updated 01/13/19 @ 16:35 by Cristofer Rios DO) Dementia (Acute) Acute respiratory failure with hypoxia (Acute) Metabolic acidosis (Acute) Congestive heart failure (Acute) Elevated troponin I level (Acute) Subjective: Patient seen and examined today, she is alert but confused-she appears to be at her baseline. She is not on any oxygen, I talked at length with both daughters who were in the room today. Patient will be moved to PCU for ongoing care, I reviewed nephrology's progress note and it appears that nephrology does not recommend dialysis at this time but there is an outside chance if the creatinine does not improve, she will need dialysis during this hospitalization. Objective: General: Alert, Cooperative, No apparent distress, Well developed, Well nourished HEENT: Atraumatic, PERRLA, EOMI, Normocephalic Oral: Moist Mucosa Neck: Supple, Trachea Midline, Thyroid Normal Size and Texture Lungs: Clear to auscultation, Normal air movement, No rhonchi, No wheeze, No rales Cardiovascular: Regular rate, Regular Rhythm, Normal S1, Normal S2, No murmurs, No Ectopic Activity Abdomen: Bowel Sounds Present, Soft, Non Tender, Non-Distended, No hernias noted Extremities: No clubbing, No cyanosis, No edema, Capillary Refill Less than 3 Seconds Skin: No rashes, No breakdown Musculoskeletal: No Tenderness to Palpation of Joints or Extremities Neurological: Cranial nerves II-XII grossly intact, Neuro grossly intact, Sensory exam intact to light touch and pain, Coordination normal Psych/Mental Status: - - Patient is alert, she is confused, she is not agitated - Physical Exam Vital Signs Temp Pulse Resp BP Pulse Ox 97.6 F L 69 16 128/64 H 93 01/14/19 14:21 01/14/19 15:16 01/14/19 14:21 01/14/19 14:21 01/14/19 14:21 Oxygen Flow Rate (L/min) 2 Oxygen Delivery Method Room Air Weight: 75.5 kg Body Mass Index (BMI) 29.5 Finger Stick Blood Glucose 104 Intake and Output for Last 24 Hours 01/12/19 01/13/19 01/14/19 23:59 23:59 23:59 Intake Total 368.35 / 368.35 2133.60 / 2135.85 999.20 / 999.20 Output Total 675 / 675 1974 800 / 800 Balance -306.65 / -306.65 158.60 / 160.85 199.20 / 199.20 Laboratory Tests Past 24 Hrs 01/12/19 01/14/19 01/14/19 16:30 04:15 04:15 WBC 9.3 RBC 2.88 L Hgb 7.9 L Hct 25.0 L MCV 86.8 MCH 27.4 MCHC 31.6 L RDW Std Deviation 50.4 H RDW Coeff of [place] 16.0 H Plt Count 171 MPV 11.5 Immature Gran % (Auto) 0.300 Neut % (Auto) 64.3 Lymph % (Auto) 23.8 [place] % (Auto) 10.5 H Eos % (Auto) 0.5 Baso % (Auto) 0.6 Absolute Neuts (auto) 6.0 Absolute Lymphs (auto) 2.22 Nucleated RBC % 0 Sodium 144 Potassium 4.7 Chloride 111 H Carbon Dioxide 23.0 BUN 63 H Creatinine 6.80 H Estim Creat Clear Calc 5.28 Est GFR (MDRD) Af Amer 8 L Est GFR (MDRD) Non-Af 6 L BUN/Creatinine Ratio 9.3 L Glucose 83 Calcium 7.6 L Phosphorus 6.3 H Albumin 2.8 L Crossmatch See Detail Medical Necessity - Tobacco Use Smoking Status: Never smoker Tobacco Use: Non-smoker Assessment/Plan All Active Problems (Last Updated 01/13/19 @ 16:35 by Cristofer Rios DO) Dementia (Acute) Acute respiratory failure with hypoxia (Acute) Metabolic acidosis (Acute) Congestive heart failure (Acute) Elevated troponin I level (Acute) Hx of foot surgery (Resolved) Hx of thyroidectomy (Resolved) Hx of cataract extraction (Resolved) Hx of hysterectomy (Resolved) Stroke (Resolved) CVA (cerebral vascular accident) (Resolved) Cough (Resolved) Shortness of breath (Acute) Cerebellar infarct (Resolved) CVA (cerebral infarction) (Resolved) #1 acute hypoxic respiratory failure secondary to acute diastolic congestive heart failure-continue present treatment, patient is currently on no oxygen. #2 acute diastolic congestive heart failure-etiology unclear at this point, most probably secondary to hypertension, continue aggressive blood pressure control #3 acute renal failure on chronic kidney disease stage V due to hypertension- nephrology will participate in her care-continue to monitor labs #4 iron deficiency anemia-secondary to chronic kidney disease-IV Venofer will be administered, labs will be monitored #5 Hypertensive emergency-again it is believed that this is what caused the patient's acute diastolic congestive heart failure, cardiology is adjusting the blood pressure medications #6 cerebrovascular disease with prior history of stroke #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 Pulmonary medicine/critical care states the patient probably does not have COPD. Code Visit Inpatient E&M: 70985 Subs Hosp L2
[2019-01-14] MEDS: Atorvastatin Calcium 40 MG Tablet PO (20:56)
[2019-01-14] MEDS: Latanoprost 0.005% 1 Bottle 1 DRP RIGHT EYE (20:57)
[2019-01-15] VITALS (22 sets, daily range): BP systolic 119–160; BP diastolic 64–98; PULSE 62–74; RESP 16–20; TEMP 36.4–37; O2SAT 92–925; BMI 29.1
[2019-01-15] MEDS: Heparin Injection (Vial) 5,000 UNIT/ML VIAL 5000 UNIT SC (05:47)
[2019-01-15] MEDS: Levothyroxine 100 MCG Tablet PO (05:47)
[2019-01-15 05:48] LABS: Absolute Lymphocyte Count 2.53 X10^3/uL (0.83-4.51); Absolute Neutrophil Count 4.3 X10^3/uL (2.0-7.7); Basophil# 0.08 X10^3/uL; Eosinophil# 0.16 X10^3/uL; Hematocrit 25.1 % (37-47); Lymphocyte # 2.53 X10^3/ul (4.0); Lymphocyte % 31.4 % (19-41); Mean Corp Hgb Conc 31.9 g/dL (32-36); Mean Corpuscular Hgb 27.3 pg (27.0-32.0); Mean Corpuscular Volume 85.7 fL (81-99); Monocyte# 0.97 X10^3/uL; NRBC Flagged by Analyzer 0.2 % (0-5); Neutrophil # 4.26 X10^3/uL (2.7-7.7); Platelet Count 161 K/mm3 (150-450); RBC Distribution Width CV 16.1 % (11.6-14.6); RBC Distribution Width SD 50.4 fl (35.1-43.9); Red Blood Count 2.93 M/mm3 (4.2-5.4); White Blood Count 8.1 K/mm3 (4.4-11.0)
[2019-01-15 06:19] LABS: International Normalized Ratio 1.1; Prothrombin Time (Protime)PT. 13.9 SECONDS (11.7-14.9)
[2019-01-15 06:20] LABS: Partial Thromboplast Time 70.7 Seconds (24.1-36.2)
[2019-01-15 07:56] LABS: Albumin, Serum 2.7 g/dL (3.2-5.0); BUN 67 mg/dL (7-18); BUN/Creat Ratio 9.8 RATIO (10-20); Calcium,Total 7.6 mg/dL (8.5-10.1); Chloride 111 mmol/L (98-107); Creatinine, Serum 6.83 mg/dL (0.55-1.02); EST Glomerular Filtration Rate 6 mL/min (>60); Est Glom Filt Rate - Afr Amer 7 mL/min (>60); Estimated Creatinine Clearance 5.25 ml/min; Glucose 78 mg/dL (74-106); Phosphorus 5.6 mg/dL (2.5-4.9); Sodium Level 143 mmol/L (136-145)
[2019-01-15] MEDS: Isosorbide Mononitrate 60 MG Tablet PO (08:03)
[2019-01-15] MEDS: Aspirin E.C. 81 MG Tablet PO (08:08)
[2019-01-15] MEDS: Polyethylene Glycol 3350 17 GM PACKET PO (08:08)
[2019-01-15] MEDS: amLODIPine 10 MG Tablet PO (08:08)
[2019-01-15] MEDS: Metoprolol Tartrate 50 MG Tablet PO (08:08)
[2019-01-15] MEDS: Timolol 0.5% 5ML OPTH.BTL 1 DRP EACH EYE ×2 (08:09→22:19)
--- NOTE | 2019-01-15 09:53 | PN.CARD_ITS ---
Subjectve: Patient seen and evaluated. Appears to be doing better this morning. Objective: Vital Signs Temp Pulse Resp BP Pulse Ox 98.6 F 66 20 H 145/72 H 93 01/15/19 08:31 01/15/19 08:31 01/15/19 08:31 01/15/19 08:31 01/15/19 08:31 Oxygen Flow Rate (L/min) 2 Oxygen Delivery Method Room Air Weight: 164 lb 10.965 oz Body Mass Index (BMI) 29.5 Finger Stick Blood Glucose 104 Intake and Output for Last 24 Hours 01/13/19 01/14/19 01/15/19 23:59 23:59 23:59 Intake Total 2133.60 / 2135.85 1059.20 / 1059.20 Output Total 1974 1050 / 1050 850 / 850 Balance 158.60 / 160.85 9.20 / 9.20 -850 / -850 General: Awake, Alert, Oriented x 3 HEENT: PERRL, EOMI, Sclera Non Icteric Neck: Supple, Good ROM, No Lymph Node Enlargement Lungs: Clear to auscultation Cardiovascular: Regular Rhythm, Normal S1, Normal S2, No Murmurs, No Rubs, No Gallops Vascular: No Carotid Bruits, Normal Femoral Pulses, Normal Radial Pulses, Normal Dorsalis Pedal Pulse, Normal Posterior Tibial Pulses Abdomen: Bowel Sounds Present, Soft, Non Tender, No HSM, No Organomegaly Extremities: No Cyanosis, No Clubbing, No edema Musculoskeletal: No Erythema Skin: No Rashes Lymphatic: No Lymph Node Enlargement Neurological: No Focal Motor or Sensory Deficit Psych/Mental Status: Appropriate 01/15/19 05:16: Sodium 143, Potassium 4.0, Chloride 111 H, Carbon Dioxide 23.0, BUN 67 H, Creatinine 6.83 H, Est GFR (MDRD) Af Amer 7 L, Est GFR (MDRD) Non-Af 6 L, BUN/Creatinine Ratio 9.8 L, Glucose 78, Calcium 7.6 L, Phosphorus 5.6 H 01/15/19 05:16: WBC 8.1, RBC 2.93 L, Hgb 8.0 L, Hct 25.1 L, MCV 85.7, MCH 27.3, MCHC 31.9 L, Plt Count 161, MPV 12.0, Immature Gran % (Auto) 0.600, Neut % (Auto) 53.0, Lymph % (Auto) 31.4, [place] % (Auto) 12.0 H, Eos % (Auto) 2.0, Baso % (Auto) 1.0, Absolute Neuts (auto) 4.3, Nucleated RBC % 0.2 01/15/19 05:16: PT 13.9, INR 1.1, APTT 70.7 H Rhythm: EKG: ECHO: Stress Test: Cardiac Cath: PCI: CT Surgery: Holter monitor: EPS: PPM: CXR: Chest CT Scan: Medical Necessity - Tobacco Use Smoking Status: Never smoker Tobacco Use: Non-smoker Assessment/Plan 1. Acute diastolic congestive heart failure * Patient presents with shortness of breath which is likely secondary to diastolic heart failure. * Recommendation will be to aggressively treat the blood pressure with oral nitrates and beta-ramon * The etiology is not clear at this time but certainly hypertensive emergency could be a contributing factor. Coronary disease cannot be completely excluded especially at age. * She will be continued on a beta-ramon at this time. * Oral isosorbide will be continued 2. Hypertension * Her blood pressure appears to be rather high and I recommend using intravenous Lasix at this particular time. * Will transition to a calcium channel ramon and a beta-ramon. * 3. Progressive renal failure * Is likely contributing to the accelerated hypertension. Will defer to the renal service for further management on this * 4. Anemia * Patient is noted to have significant anemia likely secondary to renal disease. * The patient was transfused and will continue with Venofer infusions * 5. Non-ST elevation myocardial infarction abnormal cardiac enzymes * Demand ischemia is a possibility especially with a markedly elevated blood pressure. Her echocardiogram demonstrated preserved ejection fraction with no obvious wall motion abnormality. * We will continue to monitor for now. * * Thank you for allowing me to participate in the care of your patient. Please don't hesitate to call if any issues arise
[2019-01-15] MEDS: Epoetin Alfa epbx 10,000 UNITS/ML 10000 UNIT SC (10:01)
--- NOTE | 2019-01-15 10:08 | PCM.PN.PUL ---
Patient Problems: Active and Suspected Problems (Last Reviewed 01/15/19 @ 11:59 by Cleo Dalton PA-C) Acute respiratory failure with hypoxia (Acute) Metabolic acidosis (Acute) Congestive heart failure (Acute) Elevated troponin I level (Acute) Subjective: The patient was seen and examined at the bedside this morning. Events from the last 24 hours have been reviewed. The patient is currently afebrile, hemodynamically stable and maintaining appropriate oxygen saturations on room air. Objective: The patient's most recent lab work, culture data and imaging studies have all been personally reviewed. Surface echocardiogram revealed normal LV size with an ejection fraction of 55% and stage I diastolic dysfunction. - Physical Exam General: Alert, Cooperative, No apparent distress HEENT: Atraumatic, PERRLA, Normocephalic Oral: No Gingival or Mucosal Lesions/ Ulcerations Neck: Supple, No Nodes, Trachea Midline Lungs: No rhonchi, No wheeze, No rales, Diminished Cardiovascular: Regular rate, Regular Rhythm, Normal S1, Normal S2, No murmurs Abdomen: Bowel Sounds Present, Soft, Non Tender, Obese Extremities: No clubbing, No cyanosis Skin: No breakdown Musculoskeletal: No Tenderness to Palpation of Joints or Extremities Lymphatic: No Cervical, Supraclavicular, or Inguinal Adenopathy Neurological: Neuro grossly intact Psych/Mental Status: Normal Affect, Appropriate Vital Signs Temp Pulse Resp BP Pulse Ox 98.6 F 66 20 H 145/72 H 93 01/15/19 08:31 01/15/19 08:31 01/15/19 08:31 01/15/19 08:31 01/15/19 08:31 Oxygen Flow Rate (L/min) 2 Oxygen Delivery Method Room Air Weight: 164 lb 10.965 oz Body Mass Index (BMI) 29.5 Finger Stick Blood Glucose 104 Intake and Output for Last 24 Hours 01/13/19 01/14/19 01/15/19 23:59 23:59 23:59 Intake Total 2133.60 / 2135.85 1059.20 / 1059.20 Output Total 1974 1050 / 1050 850 / 850 Balance 158.60 / 160.85 9.20 / 9.20 -850 / -850 Laboratory Tests Past 24 Hrs 01/15/19 01/15/19 01/15/19 05:16 05:16 05:16 WBC 8.1 RBC 2.93 L Hgb 8.0 L Hct 25.1 L MCV 85.7 MCH 27.3 MCHC 31.9 L RDW Std Deviation 50.4 H RDW Coeff of Lizett 16.1 H Plt Count 161 MPV 12.0 Immature Gran % (Auto) 0.600 Neut % (Auto) 53.0 Lymph % (Auto) 31.4 [place] % (Auto) 12.0 H Eos % (Auto) 2.0 Baso % (Auto) 1.0 Absolute Neuts (auto) 4.3 Absolute Lymphs (auto) 2.53 Nucleated RBC % 0.2 PT 13.9 INR 1.1 APTT 70.7 H Sodium 143 Potassium 4.0 Chloride 111 H Carbon Dioxide 23.0 BUN 67 H Creatinine 6.83 H Estim Creat Clear Calc 5.25 Est GFR (MDRD) Af Amer 7 L Est GFR (MDRD) Non-Af 6 L BUN/Creatinine Ratio 9.8 L Glucose 78 Calcium 7.6 L Phosphorus 5.6 H Albumin 2.7 L Clinical Impression(s) from Imaging Studies Chest X-Ray 01/12/19 11:07 IMPRESSION: Mild to moderate CHF new since prior. Mild to moderate bibasilar subsegmental atelectasis versus infiltrate. Electronically Signed: Dl Stevens MD at 11:37 EDT Tel [phone], Service support , Soft Tissue Neck X-Ray 01/12/19 11:15 IMPRESSION: Unremarkable x-ray examination of soft tissue neck. Electronically Signed: Dl Stevens MD at 11:44 EDT Tel [phone], Service support , Chest X-Ray 01/14/19 07:50 IMPRESSION: Significant improvement as compared to 2 days prior Electronically Signed: Xavier Wisdom DO at 8:31 EDT Tel , Service support , Medical Necessity - Tobacco Use Smoking Status: Never smoker Tobacco Use: Non-smoker Assessment/Plan All Active Problems (Last Reviewed 01/15/19 @ 11:59 by Cleo Dalton PA-C) Dementia (Acute) Acute respiratory failure with hypoxia (Acute) Metabolic acidosis (Acute) Congestive heart failure (Acute) Elevated troponin I level (Acute) Hx of foot surgery (Resolved) Hx of thyroidectomy (Resolved) Hx of cataract extraction (Resolved) Hx of hysterectomy (Resolved) Stroke (Resolved) CVA (cerebral vascular accident) (Resolved) Cough (Resolved) Shortness of breath (Acute) Cerebellar infarct (Resolved) CVA (cerebral infarction) (Resolved) RECOMMENDATIONS: 1. Encourage incentive spirometer use and mobilize patient as tolerated. 2. Will defer management of CHF and hypertension to cardiology. 3. Await definitive plans for dialysis per nephrology. 4. Will sign off from a pulmonary/critical care perspective. IMPRESSIONS: 1. Acute hypoxic respiratory failure secondary to probable acute on chronic diastolic congestive heart failure The patient responded clinically to the use of diuretic therapy and noninvasive positive pressure ventilatory support. She has been weaned successfully to room air. Continue to encourage incentive spirometer use and mobilize patient as tolerated. 2. Metabolic acidosis/anemia Improved. Patient likely has an element of anemia of chronic disease/iron deficiency anemia secondary to renal failure. Given hypoxic state, this likely accounts for patient's presenting metabolic acidosis. We will continue to monitor. 3. Acute on chronic kidney disease stage IV Unclear etiology at this time. Nephrology is following. Await final decision regarding need for dialysis moving forward. 4. Hyperlipidemia/hypertension/glaucoma/advanced age/history of multiple strokes Complicates care, management, recovery and prognosis. Continue antihypertensives and statin. This note was generated with [employer] dictation software. It may contain incorrect words, spelling, and punctuation that were not noted in checking the note before signing. Code Visit Inpatient E&M: 18138 Subs Hosp L2
[2019-01-15] MEDS: 0.9% NaCl Peripheral Flush Adult/Peds IV (10:48)
--- NOTE | 2019-01-15 11:17 | PCM.CONS.GEN ---
Problem List (1) Chronic renal failure, stage 5 Status: Chronic Reason for Consult Date of Consultation: 01/15/19 Reason for Consultation: Worsening renal function. In need of tunneled dialysis catheter placement. History of Present Illness: The patient is a 83 year old F who presents for acute congestive heart failure. Patient has been under the care of Dr. Patrick secondary to her renal function. Patient has been scheduled with Dr. Adrian for stage I AV fistula creation on February 19. Patient's creatinine has unfortunately continued to decline. Her creatinine is 6.8 today. Patient is present with her 3 daughters. She denies difficulty with anesthesia previously. She denies previous fractured collar bone, central line placement. She notes a previous thyroidectomy. Past Medical History Past Medical History (Chronic Problems): Chronic Problems (Last Updated 01/13/19 @ 16:35 by Cristofer Rios DO) Chronic renal failure, stage 5 (Chronic) Anemia (Chronic) Iron deficiency (Chronic) Chronic renal failure, stage 4 (severe) (Chronic) Anemia (Chronic) History of stroke (Chronic) Asthma (Chronic) Glaucoma (Chronic) Hypertension (Chronic) Obesity (BMI 30.0-34.9) (Chronic) Hyperlipidemia (Chronic) Speech apraxia (Chronic) Medical History: Medical History (Last Reviewed 01/15/19 @ 11:59 by Cleo Dalton PA-C) Chronic renal failure, stage 4 (severe) (Chronic) N18.4 Stroke (Resolved) I63.9 History of stroke (Chronic) Z86.73 CVA (cerebral vascular accident) (Resolved) I63.9 Asthma (Chronic) J45.909 Glaucoma (Chronic) H40.9 Hypertension (Chronic) I10 Obesity (BMI 30.0-34.9) (Chronic) E66.9 Hyperlipidemia (Chronic) E78.5 Cough (Resolved) R05 Shortness of breath (Acute) R06.02 Cerebellar infarct (Resolved) I63.9 Speech apraxia (Chronic) R48.2 CVA (cerebral infarction) (Resolved) I63.9 MRI Brain w/ multiple acute infarcts involving right insular cortex, right fleming radiata and frontal lobe, mild involutional changes of the brain, prior old infarcts noted. MRA Head w/ hemodynamically significant stenosis of the L P1, P2, P3 branches, no evidence of aneurysms, otherwise normal appearing [place] of [place]. MRA Neck limited study, f/u Carotid US with noted mild-moderate disease, no acute disease or narrowing. Iron deficiency anemia D50.9 Chronic kidney disease (CKD) stage G5/A1, glomerular filtration rate (GFR) less than or equal to 15 mL/min/1.73 square meter and albuminuria creatinine ratio less than 30 mg/g N18.5 Allergies erythromycin base Allergy (Verified 01/10/19 14:39) Rash lisinopril Allergy (Verified 01/10/19 14:39) Unknown NSAIDS (Non-Steroidal Anti-Inflamma Allergy (Verified 01/10/19 14:39) Other Salicylates Allergy (Verified 01/10/19 14:39) Other PROTEIN IN URINE DRUG Allergy (Uncoded 01/10/19 14:39) Other Home Medications: Ambulatory Orders Medication Instructions Recorded Amlodipine Besylate 10 mg PO DAILY 12/26/14 Bimatoprost 0.01% [Lumigan 0.01%] 1 drp RIGHT EYE QHS 12/27/14 Ergocalciferol [Vitamin D] 50,000 unit PO QMONTH 07/20/15 Montelukast Sodium [Singulair] 10 mg PO DAILY 07/20/15 Aspirin E.C. [Ecotrin] 81 mg PO DAILY@0800 #30 tab 07/22/15 Timolol 0.5% [Timoptic] 1 drp EACH EYE BID 11/26/15 Levothyroxine [Synthroid] 100 mcg PO DAILY 01/29/18 Atorvastatin Calcium [Lipitor] 40 mg PO QHS #30 tab 02/02/18 Metoprolol Tartrate 12.5 mg PO BID #30 tab 02/02/18 Albuterol Inhaler [Ventolin Hfa 2 puff INHALATION Q4H PRN PRN 01/12/19 (SP)] Albuterol Sulfate 2.5 mg IH Q4H PRN PRN 01/12/19 Budesonide/Formoterol 160/4.5 1 puff INHALATION DAILY PRN 01/12/19 [Symbicort 160/4.5 Mcg Inhaler (SP)] Cefdinir 300 mg PO DAILY 01/12/19 Surgical History: Surgical History (Last Reviewed 01/15/19 @ 11:59 by Cleo Dalton PA-C) Hx of foot surgery (Resolved) Z98.890 Hx of thyroidectomy (Resolved) Z98.890 Hx of cataract extraction (Resolved) Z98.49 Hx of hysterectomy (Resolved) Z90.710 Surgical History: cataract, hysterectomy, - - Leg tumor removed, unclear. Foot surgery, neck surgery-type unknown Psychiatric History: Attn. 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 Lives: Alone, - Smoking Status: Never smoker Tobacco Use: Non-smoker Alcohol: None Drugs: None - *Family History Maternal Family History: Family History (Last Reviewed 01/15/19 @ 12:00 by Cleo Dalton PA-C) Mother Colon cancer Hypertension Father Hypertension History Items: Hypertension Paternal Family History: Family History (Last Reviewed 01/15/19 @ 12:00 by Cleo Dalton PA-C) Mother Colon cancer Hypertension Father Hypertension History Items: Hypertension Review of Systems Constitutional: Denies: Chills, Fever, Weight Change HEENT: Denies: Head Aches, Sinus Congestion, Sinus Drainage Cardiovascular: Denies: Chest Pain, Palpitations Respiratory: Denies: Cough, Shortness of breath at rest, Sputum production Gastrointestinal: Denies: Abdominal Pain, Nausea, Vomiting Genitourinary: Denies: Dysuria Musculoskeletal: Denies: Joint Pain, Joint Tenderness Skin: Denies: Rash, Wounds Neurological: Denies: Numbness, Tingling, Focal weakness Psychiatric: Denies: Anxiety, Depression, Homicidal Ideations, Suicidal Ideations Hematologic/ Lymphatic: Reports: Anemia. Denies: Hx of blood clot Patient Problems: Active and Suspected Problems (Last Updated 01/13/19 @ 16:35 by Cristofer Rios DO) Dementia (Acute) Acute respiratory failure with hypoxia (Acute) Metabolic acidosis (Acute) Congestive heart failure (Acute) Elevated troponin I level (Acute) - Physical Exam General: Alert, Oriented x3, Cooperative HEENT: Atraumatic, PERRLA, EOMI, Normocephalic Neck: Supple, No JVD, Negative Carotid Bruits Lungs: Clear to auscultation, Normal air movement Cardiovascular: Regular rate, No murmurs Abdomen: Bowel Sounds Present, Soft, Non Tender Extremities: No edema, Capillary Refill Less than 3 Seconds Skin: No rashes, No breakdown Musculoskeletal: No Tenderness to Palpation of Joints or Extremities Neurological: Neuro grossly intact Psych/Mental Status: Normal Affect, Appropriate Vital Signs Temp Pulse Resp BP Pulse Ox 98.5 F 66 18 141/81 H 94 01/15/19 11:00 01/15/19 11:00 01/15/19 11:00 01/15/19 11:00 01/15/19 11:02 Oxygen Flow Rate (L/min) 2 Oxygen Delivery Method Room Air Weight: 164 lb 10.965 oz Body Mass Index (BMI) 29.5 Finger Stick Blood Glucose 104 Intake and Output for Last 24 Hours 01/13/19 01/14/19 01/15/19 23:59 23:59 23:59 Intake Total 2133.60 / 2135.85 1059.20 / 1059.20 0 / 0 Output Total 1974 1050 / 1050 850 / 850 Balance 158.60 / 160.85 9.20 / 9.20 -850 / -850 Laboratory Tests Past 24 Hrs 01/12/19 01/15/19 01/15/19 16:30 05:16 05:16 WBC 8.1 RBC 2.93 L Hgb 8.0 L Hct 25.1 L MCV 85.7 MCH 27.3 MCHC 31.9 L RDW Std Deviation 50.4 H RDW Coeff of [place] 16.1 H Plt Count 161 MPV 12.0 Immature Gran % (Auto) 0.600 Neut % (Auto) 53.0 Lymph % (Auto) 31.4 [place] % (Auto) 12.0 H Eos % (Auto) 2.0 Baso % (Auto) 1.0 Absolute Neuts (auto) 4.3 Absolute Lymphs (auto) 2.53 Nucleated RBC % 0.2 PT INR APTT Sodium 143 Potassium 4.0 Chloride 111 H Carbon Dioxide 23.0 BUN 67 H Creatinine 6.83 H Estim Creat Clear Calc 5.25 Est GFR (MDRD) Af Amer 7 L Est GFR (MDRD) Non-Af 6 L BUN/Creatinine Ratio 9.8 L Glucose 78 Calcium 7.6 L Phosphorus 5.6 H Albumin 2.7 L Crossmatch See Detail 01/15/19 05:16 WBC RBC Hgb Hct MCV MCH MCHC RDW Std Deviation RDW Coeff of Lizett Plt Count MPV Immature Gran % (Auto) Neut % (Auto) Lymph % (Auto) [place] % (Auto) Eos % (Auto) Baso % (Auto) Absolute Neuts (auto) Absolute Lymphs (auto) Nucleated RBC % PT 13.9 INR 1.1 APTT 70.7 H Sodium Potassium Chloride Carbon Dioxide BUN Creatinine Estim Creat Clear Calc Est GFR (MDRD) Af Amer Est GFR (MDRD) Non-Af BUN/Creatinine Ratio Glucose Calcium Phosphorus Albumin Crossmatch Assessment/Plan All Active Problems (Last Updated 01/13/19 @ 16:35 by Cristofer Rios DO) Dementia (Acute) Acute respiratory failure with hypoxia (Acute) Metabolic acidosis (Acute) Congestive heart failure (Acute) Elevated troponin I level (Acute) Hx of foot surgery (Resolved) Hx of thyroidectomy (Resolved) Hx of cataract extraction (Resolved) Hx of hysterectomy (Resolved) Stroke (Resolved) CVA (cerebral vascular accident) (Resolved) Cough (Resolved) Shortness of breath (Acute) Cerebellar infarct (Resolved) CVA (cerebral infarction) (Resolved) I have been consulted in conjunction with Dr. Youngblood Impression: Worsening renal function. Stage V, chronic renal failure. In need of tunneled dialysis catheter placement Plan: Patient was discussed with Dr. Youngblood. Dr. Youngblood will plan to perform a right possible left chest tunneled dialysis catheter placement. Procedure details, risks and benefits have been explained to the patient and her 3 daughters. Patient and daughters have had the opportunity to ask and have questions answered. Patient verbally understands and agrees to proceed with the proposed procedure. Plan for NPO. Will proceed this afternoon with the proposed procedure. Thank you for allowing us to participate in this patient's care. Code Visit Office Visits / Consults: 30012 IP Consult L3
--- NOTE | 2019-01-15 13:16 | CASEMGMT ---
Social Work SW received referral from physician that pt will need dialysis and will need placement at SNF. SW met with pt and three daughters. Pt deferred decision making to daughters. Written list of SNF's in network with insurance provided to pt family. Family stating [facility] choice [facility] and second choice is [facility]. Call to Te[facility] at [facility] and they do have beds available and are able to transport to dialysis. Referral faxed. Will await acceptance determination and insurance preauth. Plan: [facility] pending acceptance and preauth CHRISTIANO Spivey
[2019-01-15 13:21] LABS: Hepatitis B Surface Antibody Non-Reactive; Hepatitis B Surface Antigen Non-Reactive (Nonreactive)
--- NOTE | 2019-01-15 13:38 | CASEMGMT ---
Per Dr. Patrick, pt is ESRD and will be on dialysis. Per Magda SAUCEDO, pt/family would like pt to go to [facility] at discharge. Per daughter, they had already had some training/education at [facility] in preparation for dialysis and would like to continue there. Referral faxed to [facility] at this time as well as submitted via [facility] portal. This RN CM answered all questions for pt/family at this time and advised them that this RN CM and SW would keep them up to date, voice understanding. Pt/family voice no further questions/concerns/needs at this time. SStaten JUSTIN CM
[2019-01-15] MEDS: 0.9% Normal Saline 1,000 ML 15 ML IV (15:00)
[2019-01-15 15:08] LABS: C1 Esterase Inhibitor, Quant 42 mg/dL (21-39)
[2019-01-15] MEDS: Cefazolin 2 GM in 0.9% Normal Saline 100 ML IV (15:21)
[2019-01-15] MEDS: Bupivacaine Mpf 0.5% 30 ML VIAL (15:21)
--- NOTE | 2019-01-15 15:40 | CHAPLAIN ---
met with family as patient was being moved to surgery; offered family support; response is to keep her in your prayers please
[2019-01-15] MEDS: Heparin 10,000 UNITS/10 ML Vial 10000 UNITS (15:49)
--- NOTE | 2019-01-15 15:53 | OP.PCM_ITS ---
Problem List (1) Chronic renal failure, stage 5 Status: Chronic Report of Operation Date of Procedure: 01/15/19 Pre-Operative Diagnosis: Stage V chronic renal failure Post-Operative Diagnosis: Same Surgery/Procedure Performed:: Placement of a right IJ palindrome chronic dual- lumen catheter reference number [id number] lot #[id number] expiration date 07/27/2023 Type of Anesthesia:: Local MAC Anesthesiologist: Kirby Grady Estimated Blood Loss (mL): < 5 cc Fluids Replaced: 300 Description of Procedure: Patient was brought into the operating room. Placed in the supine position. Under excellent MAC anesthetic the head was in the placed on position I ultrasound the neck identifying the internal jugular vein the neck and chest were then sterilely prepped and draped in usual fashion. Local was injected into the neck Seldinger's technique was used to gain access to the internal ju gular vein on the right side guidewire was placed through the needle the needle was removed fluoroscopy was used to confirm placement of the hemodialysis guidewire. It was in good placement. Local was injected under the chest after I did a quick identification and wear with the best place for the insertion of this to be then made an incision in the neck I injected local from the 2 incisions over the collarbone and then placed a tunneler through the chest up into the neck bringing the catheter I removed the tunneler I sequentially dilated the internal jugular vein I then placed the catheter through the sheath after removing the dilator and guidewire. I removed the sheath placed in the catheter into the internal jugular vein without difficulty. Fluoroscopy confirmed good placement of the tip of the catheter into the superior vena cava. Skin incisions were closed with Subcuticular stitches of 4-0 Monocryl. I sutured the catheter to the skin with 3-0 nylon. Sterile dressings were applied patient tolerated the procedure well postoperative chest x-ray was ordered
--- NOTE | 2019-01-15 15:56 | RAD_ITS ---
STUDY: X-RAY CHEST REASON FOR EXAM: Female, 83 years old. Postop hemodialysis catheter placement. TECHNIQUE: Single AP portable view of the chest. COMPARISON: January 14, 2019. FINDINGS: There is a right jugular hemodialysis catheter with its tip at the atrial caval junction. There is no pneumothorax. There is a decreased inspiratory effort when compared to the prior study. The question of a an enlarging right pleural effusion. There is minimal perihilar interstitial prominence bilaterally. The heart is enlarged. Normal mediastinum and chandrika. Normal visualized pulmonary arteries. Normal visualized aortic arch and descending thoracic aorta. No visualized osseous changes. There is no demonstrated abnormality of the visualized soft tissue structures of the upper abdomen. RAD/Chest 1 View (Portable) IMPRESSION: 1. Right jugular hemodialysis catheter as described. There is no pneumothorax. 2. Question mild vascular congestion with enlarging right pleural effusion. 3. Stable cardiomegaly. Electronically Signed: Daniel Florez DO at 16:29 EDT Tel [phone], Service support ,
--- NOTE | 2019-01-15 17:57 | PN_ITS ---
Patient Problems: Active and Suspected Problems (Last Reviewed 01/15/19 @ 11:59 by Cleo Dalton PA-C) Dementia (Acute) Acute respiratory failure with hypoxia (Acute) Metabolic acidosis (Acute) Congestive heart failure (Acute) Elevated troponin I level (Acute) Subjective: Patient was seen and examined today, the patient had a tunneled dialysis catheter placed today for dialysis purposes. I talked extensively the patient's family about this today before she had the procedure done, I also discussed her care with general surgery. Patient's creatinine today was unchanged from yesterday. Patient remains afebrile and on room air at this time. Patient has no complaints of any shortness of breath at this time, fevers, or chills. - Physical Exam General: Alert, Cooperative, No apparent distress, Well developed HEENT: Atraumatic, PERRLA, EOMI, Normocephalic Oral: Moist Mucosa Neck: Supple, Trachea Midline, Thyroid Normal Size and Texture Lungs: Clear to auscultation, Normal air movement, No rhonchi, No wheeze, No rales Cardiovascular: Regular rate, Regular Rhythm, Normal S1, Normal S2, No murmurs, No Ectopic Activity Abdomen: Bowel Sounds Present, Soft, Non Tender, Non-Distended Extremities: No clubbing, No cyanosis, No edema, Capillary Refill Less than 3 Seconds Skin: No rashes, No breakdown Musculoskeletal: No Tenderness to Palpation of Joints or Extremities Neurological: Cranial nerves II-XII grossly intact, Neuro grossly intact, Sensory exam intact to light touch and pain, Coordination normal Psych/Mental Status: - - Patient is alert but confused, she does not appear agitated or anxious Vital Signs Temp Pulse Resp BP Pulse Ox 97.5 F L 62 16 133/64 H 93 01/15/19 17:00 01/15/19 17:00 01/15/19 17:00 01/15/19 17:00 01/15/19 17:00 Oxygen Flow Rate (L/min) 2 Oxygen Delivery Method Room Air Weight: 74.7 kg Body Mass Index (BMI) 29.1 Finger Stick Blood Glucose 104 Intake and Output for Last 24 Hours 01/13/19 01/14/19 01/15/19 23:59 23:59 23:59 Intake Total 2133.60 / 2135.85 1059.20 / 1059.20 790 / 790 Output Total 1975 / 1975 1050 / 1050 1600 / 1600 Balance 158.60 / 160.85 9.20 / 9.20 -810 / -810 Laboratory Tests Past 24 Hrs 01/12/19 01/12/19 01/15/19 10:35 16:30 05:16 WBC RBC Hgb Hct MCV MCH MCHC RDW Std Deviation RDW Coeff of Lizett Plt Count MPV Immature Gran % (Auto) Neut % (Auto) Lymph % (Auto) [place] % (Auto) Eos % (Auto) Baso % (Auto) Absolute Neuts (auto) Absolute Lymphs (auto) Nucleated RBC % PT INR APTT Sodium 143 Potassium 4.0 Chloride 111 H Carbon Dioxide 23.0 BUN 67 H Creatinine 6.83 H Estim Creat Clear Calc 5.25 Est GFR (MDRD) Af Amer 7 L Est GFR (MDRD) Non-Af 6 L BUN/Creatinine Ratio 9.8 L Glucose 78 Calcium 7.6 L Phosphorus 5.6 H Albumin 2.7 L C1 Esterase Inhibitor 42 H Hep Bs Antigen Hep Bs Antibody Crossmatch See Detail 01/15/19 01/15/19 01/15/19 05:16 05:16 11:50 WBC 8.1 RBC 2.93 L Hgb 8.0 L Hct 25.1 L MCV 85.7 MCH 27.3 MCHC 31.9 L RDW Std Deviation 50.4 H RDW Coeff of Lizett 16.1 H Plt Count 161 MPV 12.0 Immature Gran % (Auto) 0.600 Neut % (Auto) 53.0 Lymph % (Auto) 31.4 [place] % (Auto) 12.0 H Eos % (Auto) 2.0 Baso % (Auto) 1.0 Absolute Neuts (auto) 4.3 Absolute Lymphs (auto) 2.53 Nucleated RBC % 0.2 PT 13.9 INR 1.1 APTT 70.7 H Sodium Potassium Chloride Carbon Dioxide BUN Creatinine Estim Creat Clear Calc Est GFR (MDRD) Af Amer Est GFR (MDRD) Non-Af BUN/Creatinine Ratio Glucose Calcium Phosphorus Albumin C1 Esterase Inhibitor Hep Bs Antigen Non-Reactive Hep Bs Antibody Non-Reactive Crossmatch Medical Necessity - Tobacco Use Smoking Status: Never smoker Tobacco Use: Non-smoker Assessment/Plan All Active Problems (Last Reviewed 01/15/19 @ 11:59 by Cleo Dalton PA-C) Dementia (Acute) Acute respiratory failure with hypoxia (Acute) Metabolic acidosis (Acute) Congestive heart failure (Acute) Elevated troponin I level (Acute) Hx of foot surgery (Resolved) Hx of thyroidectomy (Resolved) Hx of cataract extraction (Resolved) Hx of hysterectomy (Resolved) Stroke (Resolved) CVA (cerebral vascular accident) (Resolved) Cough (Resolved) Shortness of breath (Acute) Cerebellar infarct (Resolved) CVA (cerebral infarction) (Resolved) #1 acute hypoxic respiratory failure secondary to acute diastolic congestive heart failure-continue present treatment, patient is currently on no oxygen, again she had a tunneled dialysis catheter placed today #2 acute diastolic congestive heart failure-etiology unclear at this point, most probably secondary to hypertension, continue aggressive blood pressure control #3 acute renal failure on chronic kidney disease stage V due to hypertension- nephrology will participate in her care-continue to monitor labs, a dialysis catheter was placed today, creatinine is unchanged from yesterday #4 iron deficiency anemia-secondary to chronic kidney disease-patient had Epogen administered today #5 Hypertensive emergency-again it is believed that this is what caused the patient's acute diastolic congestive heart failure #6 cerebrovascular disease with prior history of stroke #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 Pulmonary medicine/critical care states the patient probably does not have COPD. Code Visit Inpatient E&M: 63750 Subs Hosp L2
--- NOTE | 2019-01-15 20:17 | PCM.PN.REN ---
Patient Problems: Active and Suspected Problems (Last Reviewed 01/15/19 @ 11:59 by Cleo Dalton PA-C) Acute respiratory failure with hypoxia (Acute) Metabolic acidosis (Acute) Congestive heart failure (Acute) Elevated troponin I level (Acute) Subjective: complains of nausea this morning. Creatinine worse today. Discussed with pt dtr and nephew at bedside regarding initiating dialysis today with tunneled catheter. FFP ordered for elevated PTT. Heparin discontinued. Discussed need to arrange dialysis as outpt before discharge. Pt to have PT evaluation. - Physical Exam General: Alert, Cooperative, No apparent distress, - - poor historian, cognitive impairment Lungs: Clear to auscultation Cardiovascular: Regular rate, No rub noted Abdomen: Bowel Sounds Present, Soft, Non Tender, Non-Distended Extremities: No edema Psych/Mental Status: Normal Affect Vital Signs Temp Pulse Resp BP Pulse Ox 97.5 F L 66 16 133/64 H 93 01/15/19 17:00 01/15/19 19:00 01/15/19 17:00 01/15/19 17:00 01/15/19 17:00 Oxygen Flow Rate (L/min) 2 Oxygen Delivery Method Room Air Weight: 74.7 kg Body Mass Index (BMI) 29.1 Finger Stick Blood Glucose 104 Intake and Output for Last 24 Hours 01/13/19 01/14/19 01/15/19 23:59 23:59 23:59 Intake Total 2133.60 / 2135.85 1059.20 / 1059.20 790 / 790 Output Total 1974 / 1974 1050 / 1050 1600 / 1600 Balance 158.60 / 160.85 9.20 / 9.20 -810 / -810 Laboratory Tests Past 24 Hrs 01/12/19 01/12/19 01/15/19 10:35 16:30 05:16 WBC RBC Hgb Hct MCV MCH MCHC RDW Std Deviation RDW Coeff of Lizett Plt Count MPV Immature Gran % (Auto) Neut % (Auto) Lymph % (Auto) [place] % (Auto) Eos % (Auto) Baso % (Auto) Absolute Neuts (auto) Absolute Lymphs (auto) Nucleated RBC % PT INR APTT Sodium 143 Potassium 4.0 Chloride 111 H Carbon Dioxide 23.0 BUN 67 H Creatinine 6.83 H Estim Creat Clear Calc 5.25 Est GFR (MDRD) Af Amer 7 L Est GFR (MDRD) Non-Af 6 L BUN/Creatinine Ratio 9.8 L Glucose 78 Calcium 7.6 L Phosphorus 5.6 H Albumin 2.7 L C1 Esterase Inhibitor 42 H Hep Bs Antigen Hep Bs Antibody Crossmatch See Detail 01/15/19 01/15/19 01/15/19 05:16 05:16 11:50 WBC 8.1 RBC 2.93 L Hgb 8.0 L Hct 25.1 L MCV 85.7 MCH 27.3 MCHC 31.9 L RDW Std Deviation 50.4 H RDW Coeff of Lizett 16.1 H Plt Count 161 MPV 12.0 Immature Gran % (Auto) 0.600 Neut % (Auto) 53.0 Lymph % (Auto) 31.4 [place] % (Auto) 12.0 H Eos % (Auto) 2.0 Baso % (Auto) 1.0 Absolute Neuts (auto) 4.3 Absolute Lymphs (auto) 2.53 Nucleated RBC % 0.2 PT 13.9 INR 1.1 APTT 70.7 H Sodium Potassium Chloride Carbon Dioxide BUN Creatinine Estim Creat Clear Calc Est GFR (MDRD) Af Amer Est GFR (MDRD) Non-Af BUN/Creatinine Ratio Glucose Calcium Phosphorus Albumin C1 Esterase Inhibitor Hep Bs Antigen Non-Reactive Hep Bs Antibody Non-Reactive Crossmatch Medical Necessity - Tobacco Use Smoking Status: Never smoker Tobacco Use: Non-smoker Assessment/Plan All Active Problems (Last Reviewed 01/15/19 @ 11:59 by Cleo Dalton PA-C) Dementia (Acute) Acute respiratory failure with hypoxia (Acute) Metabolic acidosis (Acute) Congestive heart failure (Acute) Elevated troponin I level (Acute) Hx of foot surgery (Resolved) Hx of thyroidectomy (Resolved) Hx of cataract extraction (Resolved) Hx of hysterectomy (Resolved) Stroke (Resolved) CVA (cerebral vascular accident) (Resolved) Cough (Resolved) Shortness of breath (Acute) Cerebellar infarct (Resolved) CVA (cerebral infarction) (Resolved) 1. 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 Will initiate dialysis today after tunneled dialysis catheter placement. Arrange outpt dialysis prior to discharge. 2. Acute diastolic CHF resolved. Oxygenation stable on RA. 3. Iron def anemia s/p prbc today, iv iron. Epo today 4. HTN BP stable 5. dementia 6. metabolic encephalopathy
[2019-01-15] MEDS: Latanoprost 0.005% 1 Bottle 1 DRP RIGHT EYE (22:20)
[2019-01-16] VITALS (16 sets, daily range): BP systolic 149–171; BP diastolic 73–87; PULSE 67–78; RESP 15–20; TEMP 36.7–37.3; O2SAT 92–93
[2019-01-16] MEDS: Atorvastatin Calcium 40 MG Tablet PO (02:15)
[2019-01-16] MEDS: Metoprolol Tartrate 50 MG Tablet PO ×2 (02:15→12:59)
--- NOTE | 2019-01-16 02:17 | DIALYSIS ---
Pt tolerated initial 2hr HD tx well. Net UF even. See flow record for tx data.
[2019-01-16] MEDS: Acetaminophen 325 MG Tablet 650 MG PO (04:29)
[2019-01-16] MEDS: Levothyroxine 100 MCG Tablet PO (04:31)
--- NOTE | 2019-01-16 05:25 | NURSING ---
This RN gave morning medication per patient/family request due to patient being up all night.
[2019-01-16 06:10] LABS: Albumin, Serum 2.9 g/dL (3.2-5.0); BUN 33 mg/dL (7-18); BUN/Creat Ratio 7.9 RATIO (10-20); Chloride 109 mmol/L (98-107); Creatinine, Serum 4.19 mg/dL (0.55-1.02); EST Glomerular Filtration Rate 11 mL/min (>60); Est Glom Filt Rate - Afr Amer 13 mL/min (>60); Estimated Creatinine Clearance 8.56 ml/min; Glucose 73 mg/dL (74-106); Phosphorus 3.2 mg/dL (2.5-4.9); Potassium 3.8 mmol/L (3.5-5.1); Sodium Level 144 mmol/L (136-145)
[2019-01-16] MEDS: Albuterol 2.5 MG/3 ML VIAL.NEB. INHALATION ×2 (06:17→13:12)
--- NOTE | 2019-01-16 08:55 | PN.CARD_ITS ---
Subjectve: Patient seen and evaluated. Appears to be doing better. Objective: Vital Signs Temp Pulse Resp BP Pulse Ox 98.1 F 72 18 156/76 H 93 01/16/19 04:33 01/16/19 07:35 01/16/19 06:18 01/16/19 04:33 01/16/19 07:58 Oxygen Flow Rate (L/min) 2 Oxygen Delivery Method Room Air Weight: 164 lb 3.91 oz Body Mass Index (BMI) 29.1 Finger Stick Blood Glucose 104 Intake and Output for Last 24 Hours 01/14/19 01/15/19 01/16/19 23:59 23:59 23:59 Intake Total 1059.20 / 1059.20 790 / 790 120 / 120 Output Total 1050 / 1050 1900 / 1900 750 / 750 Balance 9.20 / 9.20 -1110 / -1110 -630 / -630 General: Awake, Alert, Oriented x 3 HEENT: PERRL, EOMI, Sclera Non Icteric Neck: Supple, Good ROM, No Lymph Node Enlargement Lungs: Clear to auscultation Cardiovascular: Regular Rhythm, Normal S1, Normal S2, No Murmurs, No Rubs, No Gallops Vascular: No Carotid Bruits, Normal Femoral Pulses, Normal Radial Pulses, Normal Dorsalis Pedal Pulse, Normal Posterior Tibial Pulses Abdomen: Bowel Sounds Present, Soft, Non Tender, No HSM, No Organomegaly Extremities: No Cyanosis, No Clubbing, No edema Musculoskeletal: No Erythema Skin: No Rashes Lymphatic: No Lymph Node Enlargement Neurological: No Focal Motor or Sensory Deficit Psych/Mental Status: Appropriate 01/16/19 05:24: Sodium 144, Potassium 3.8, Chloride 109 H, Carbon Dioxide 26.0, BUN 33 H, Creatinine 4.19 H, Est GFR (MDRD) Af Amer 13 L, Est GFR (MDRD) Non-Af 11 L, BUN/Creatinine Ratio 7.9 L, Glucose 73 L, Calcium 8.0 L, Phosphorus 3.2 Rhythm: EKG: ECHO: Stress Test: Cardiac Cath: PCI: CT Surgery: Holter monitor: EPS: PPM: CXR: Chest CT Scan: Medical Necessity - Tobacco Use Smoking Status: Never smoker Tobacco Use: Non-smoker Assessment/Plan 1. Acute diastolic congestive heart failure * Patient presents with shortness of breath which is likely secondary to diastolic heart failure. * Recommendation will be to aggressively treat the blood pressure with oral nitrates and beta-ramon * The etiology is not clear at this time but certainly hypertensive emergency could be a contributing factor. Coronary disease cannot be completely excluded especially at age. * She will be continued on a beta-ramon at this time. * Oral isosorbide will be continued 2. Hypertension * Her blood pressure appears to be rather high and I recommend using intravenous Lasix at this particular time. * Will transition to a calcium channel ramon and a beta-ramon. * 3. Progressive renal failure * Is likely contributing to the accelerated hypertension. Will defer to the renal service for further management on this * 4. Anemia * Patient is noted to have significant anemia likely secondary to renal disease. * The patient was transfused and will continue with Venofer infusions * 5. Non-ST elevation myocardial infarction abnormal cardiac enzymes * Demand ischemia is a possibility especially with a markedly elevated blood pressure. Her echocardiogram demonstrated preserved ejection fraction with no obvious wall motion abnormality. * We will continue to monitor for now. * * * At this time the patient appears to be stable and would not make any changes to her therapy. * Thank you for allowing me to participate in the care of your patient. Please don't hesitate to call if any issues arise
--- NOTE | 2019-01-16 09:35 | PCM.PN.REN ---
Patient Problems: Active and Suspected Problems (Last Reviewed 01/15/19 @ 11:59 by Cleo Dalton PA-C) Acute respiratory failure with hypoxia (Acute) Metabolic acidosis (Acute) Congestive heart failure (Acute) Elevated troponin I level (Acute) Subjective: seen at start of dialysis. Complains of pain over catheter site. Pt run last last night. Vitals stable. Spoke with pt dtrs at bedside. She had some confusion last night. Dialysis #2 today. - Physical Exam General: Alert, No apparent distress HEENT: - Lungs: Clear to auscultation Cardiovascular: Regular rate Abdomen: Bowel Sounds Present, Soft, Non Tender, Non-Distended Extremities: No edema Vital Signs Temp Pulse Resp BP Pulse Ox 98.8 F 69 15 162/79 H 93 01/16/19 09:24 01/16/19 09:24 01/16/19 09:24 01/16/19 09:24 01/16/19 09:24 Oxygen Flow Rate (L/min) 2 Oxygen Delivery Method Room Air Weight: 74.5 kg Body Mass Index (BMI) 29.1 Finger Stick Blood Glucose 104 Intake and Output for Last 24 Hours 01/14/19 01/15/19 01/16/19 23:59 23:59 23:59 Intake Total 1059.20 / 1059.20 790 / 790 120 / 120 Output Total 1050 / 1050 1900 / 1900 750 / 750 Balance 9.20 / 9.20 -1110 / -1110 -630 / -630 Laboratory Tests Past 24 Hrs 01/12/19 01/12/19 01/15/19 10:35 16:30 11:50 Sodium Potassium Chloride Carbon Dioxide BUN Creatinine Estim Creat Clear Calc Est GFR (MDRD) Af Amer Est GFR (MDRD) Non-Af BUN/Creatinine Ratio Glucose Calcium Phosphorus Albumin C1 Esterase Inhibitor 42 H Hep Bs Antigen Non-Reactive Hep Bs Antibody Non-Reactive Crossmatch See Detail 01/16/19 05:24 Sodium 144 Potassium 3.8 Chloride 109 H Carbon Dioxide 26.0 BUN 33 H Creatinine 4.19 H Estim Creat Clear Calc 8.56 Est GFR (MDRD) Af Amer 13 L Est GFR (MDRD) Non-Af 11 L BUN/Creatinine Ratio 7.9 L Glucose 73 L Calcium 8.0 L Phosphorus 3.2 Albumin 2.9 L C1 Esterase Inhibitor Hep Bs Antigen Hep Bs Antibody Crossmatch Medical Necessity - Tobacco Use Smoking Status: Never smoker Tobacco Use: Non-smoker Assessment/Plan All Active Problems (Last Reviewed 01/15/19 @ 11:59 by Cleo Dalton PA-C) Dementia (Acute) Acute respiratory failure with hypoxia (Acute) Metabolic acidosis (Acute) Congestive heart failure (Acute) Elevated troponin I level (Acute) Hx of foot surgery (Resolved) Hx of thyroidectomy (Resolved) Hx of cataract extraction (Resolved) Hx of hysterectomy (Resolved) Stroke (Resolved) CVA (cerebral vascular accident) (Resolved) Cough (Resolved) Shortness of breath (Acute) Cerebellar infarct (Resolved) CVA (cerebral infarction) (Resolved) 1. 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 HD #2 today. Dialysis as outpt qTTS. 2. Acute diastolic CHF resolved. Oxygenation stable on RA. 3. Iron def anemia s/p prbc today, iv iron. Epo. 4. HTN BP stable 5. dementia
--- NOTE | 2019-01-16 09:54 | DIALYSIS ---
Report form primary RNKylie. Hep B sag (negative 01/15/2019Dr. Darnell and hospitalist assessing patient and talking with patient and family. No Hemodialysis tomorrow. Next HD 01/18/2019 Access: right chest CVC. Site and dressing bloody. Dressing changed per protocol. Connections secure, Hemosafe applied x 2 Patient apprehensive about having HD today.
--- NOTE | 2019-01-16 10:31 | CASEMGMT ---
Addendum entered by Tamiko Dickinson 01/16/19 10:56: [facility] and copy provided to avis, SHERYL, and pt's daughter(with explanation) at this time. Daughter aware that we are still awaiting precert from insurance for SNF. Pt updated on all but is tired at this time. Daughter voices no further questions/concerns/needs at this time. Jossy ANDERSON CM Original Note: Hep panel back and faxed to [facility] at this time. Per Alcon Stroud, pt's chair time will be 1140 at T,T,S. E.Rogelio SHERYL aware to notify SNF, voices understanding. Jossy ANDERSON CM
--- NOTE | 2019-01-16 10:32 | CASEMGMT ---
SHERYL called [facility] and spoke with Tere who was covering for Lynda. They can accept patient and they started the pre-cert. SHERYL will let patient know this information. Plan: [facility] at [place] pending insurance authorization. Deanne GONZALES
--- NOTE | 2019-01-16 11:13 | CASEMGMT ---
SHERYL spoke with patient's daughters Natty and [place]. SHERYL let them know that [facility] can take patient at discharge and we are just waiting on insurance to approve. They thanked SHERYL for the update. Plan: [facility] [place] pending insurance approval. Deanne LEMUS MSW
--- NOTE | 2019-01-16 11:55 | CHAPLAIN ---
family in [facility] [place]; offered support to daughters of patient; pt is having treatment at this time; ongoing support offered as needed
[2019-01-16] MEDS: Heparin 10,000 UNITS/10 ML Vial IV (12:57)
[2019-01-16] MEDS: amLODIPine 5 MG Tablet PO (12:58)
[2019-01-16] MEDS: Aspirin E.C. 81 MG Tablet PO (12:58)
[2019-01-16] MEDS: Folic Acid/Vitamin B Comp W-C 1 Capsule 1 CAP PO (12:58)
[2019-01-16] MEDS: Isosorbide Mononitrate 60 MG Tablet PO (12:59)
[2019-01-16] MEDS: Timolol 0.5% 5ML OPTH.BTL 1 DRP EACH EYE (13:00)
--- NOTE | 2019-01-16 13:06 | DIALYSIS ---
Hemodialysis complete. 2.5 hour run, 3k bath. Net fluid removed = 0. Patient tolerated HD tx well. Venofer given with HD tx. Right chest CVC: site benign, dressing dry and intact. Lumen flushed with NS, filled to volume with Heparin, capped and clamped. Next hemodialysis treatment 01/18/19. Report given to primary RNKylie.
--- NOTE | 2019-01-16 15:52 | CASEMGMT ---
SHERYL received call from Lynda at [facility] and she received pre-cert. SW notified physician and he plans on sending her today. SW notified Lynda at [facility] and patient's family. Completed convalescent on HENS. SHERYL completed green sheet and left for dental secretary. Plan: d/c to [facility] at [place] under convalescent stay. Staff will arrange transportation. Deanne GONZALES
--- NOTE | 2019-01-16 17:24 | PCM.TXEXTCAR ---
- Diet 01/16/19 13:59 Diet: Renal: 60 gm protein Is pt able to select menu?: No Diet Comments: Cardiac diet - Routine Orders/Code Status Routine Lab Work: BMP - DAILY FOR 5 DAYS Code Status: Full Code - Wound(s) RIGHT NECK Wound Type: Surgical Incision RIGHT UPPER CHEST WALL [HEMODIALYSIS CATHETER SITE] Wound Type: Surgical Incision - Therapies Physical Therapy: Eval and Treat Occupational Therapy: Eval and Treat - Problem/Diagnosis (1) Shortness of breath Status: Acute Comment: DUE TO DIASTOLIC CHF Current Visit: No (2) RENAL FAILURE STAGE 6 Status: Acute Comment: NEW DIALYSIS PLACEMENT Current Visit: Yes (3) Dementia Status: Chronic Current Visit: No (4) Congestive heart failure Status: Acute Comment: DIASTOLIC Current Visit: Yes (5) Hx of thyroidectomy Status: Resolved Comment: HYPOTHYROIDISM Current Visit: No (6) Iron deficiency anemia Status: Chronic Current Visit: Yes (7) Anemia Status: Chronic Current Visit: Yes (8) Respiratory failure with hypoxia Status: Acute Comment: DUE TO CHF Current Visit: Yes - Allergies/Procedures Done in Hospital Allergies/Adverse Reactions: Allergies erythromycin base Allergy (Verified 01/10/19 14:39) Rash lisinopril Allergy (Verified 01/10/19 14:39) Unknown NSAIDS (Non-Steroidal Anti-Inflamma Allergy (Verified 01/10/19 14:39) Other Salicylates Allergy (Verified 01/10/19 14:39) Other PROTEIN IN URINE DRUG Allergy (Uncoded 01/10/19 14:39) Other Procedures: Dialysis, - - TUNNELED DIALYSIS CATHER PLACEMENT - Type of Care/Length of Stay Estimated LOS: Convalescent Care Less Than 30 days Type of Care Needed: Skilled Rehab Potential: Good Prognosis: Good - Additional Orders/Day of Discharge H&P will serve as current which was dated: 01/12/19 Day of Discharge: 01/16/19 - Follow Up Care Primary Care Physician: Wayne Leahy Chi, MD [Primary Care Provider] -
--- NOTE | 2019-01-16 18:45 | NURSING ---
squad here to take patient
--- NOTE | 2019-01-18 11:03 | DS.PCM_ITS ---
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 #8 elevated liver enzymes- possibly secondary to hepatic congestion - Secondary Discharge Diagnosis Chronic Problems (Last Reviewed 01/15/19 @ 11:59 by Cleo Dalton PA-C) Chronic renal failure, stage 5 (Chronic) Iron deficiency anemia (Chronic) Dementia (Chronic) Anemia (Chronic) Iron deficiency (Chronic) Chronic renal failure, stage 4 (severe) (Chronic) Anemia (Chronic) History of stroke (Chronic) Asthma (Chronic) Glaucoma (Chronic) Hypertension (Chronic) Obesity (BMI 30.0-34.9) (Chronic) Hyperlipidemia (Chronic) Speech apraxia (Chronic) Hospital Course and Treatment Operations: None Procedures: Dialysis, - - Tunneled dialysis catheter placement Summary of Care Provided: The patient is a 83 year old F was seen in the emergency room at [facility] with a chief complaint of shortness of breath, she been brought in by her family members-she has a history of dementia and chronic kidney disease. On evaluation in the emergency room, she was found to be in heart failure and had elevated blood pressure, her renal functions had also elevated greater than her usual baseline. Discussions were carried out with family members due to the patient's dementia, they wanted full measures done on the patient and she was admitted to ICU initially on BiPAP and given IV Lasix, she was seen by cardiology, critical care, and nephrology. Patient's respiratory distress resolved rather quickly, she was weaned off oxygen and her renal functions were monitored and her creatinine did not improve during her hospitalization, it was felt necessary that she undergo dialysis she was seen by general surgery and had a a tunneled dialysis catheter placed. Patient was seen by PT and OT and it was felt that the patient needed short inpatient stay in a skilled care facility and the patient's family agreed. On 01/16/2019, patient was seen and examined: On examination she appeared in good health and spirits. Vital signs as documented. Skin warm and dry and without overt rashes. Neck without JVD. Lungs clear. Heart exam notable for regular rhythm, normal sounds and absence of murmurs, rubs or gallops. Abdomen unremarkable and without evidence of organomegaly, masses, or abdominal aortic enlargement. Extremities nonedematous. Neuro: Cranial nerves II through XII are grossly intact, no focal motor deficits were noted, sensation to light touch and pinprick is intact. Psych: Patient is alert, she was confused, she does not appear anxious or depressed On 01/16/2019, patient was seen and examined and felt to be in stable condition to be transferred to senior care facility. - Physical Exam Vital Signs Temp Pulse Resp BP Pulse Ox 98.9 F 71 17 149/77 H 92 01/16/19 17:58 01/16/19 17:58 01/16/19 17:58 01/16/19 17:58 01/16/19 17:58 Oxygen Flow Rate (L/min) 2 Oxygen Delivery Method Room Air Weight: 74.5 kg Body Mass Index (BMI) 29.1 Finger Stick Blood Glucose 104 Intake and Output for Last 24 Hours 01/16/19 01/17/19 01/18/19 23:59 23:59 23:59 Intake Total 700 / 700 Output Total 1750 / 1750 Balance -1050 / -1050 Home Medications: Medications to take at Discharge Bimatoprost 0.01% [Lumigan 0.01%] 1 drp RIGHT EYE QHS 12/27/14 Ergocalciferol [Vitamin D] 50,000 unit PO QMONTH 07/20/15 Aspirin E.C. [Ecotrin] 81 mg PO DAILY@0800 #30 tab 07/22/15 Timolol 0.5% [Timoptic] 1 drp EACH EYE BID 11/26/15 Levothyroxine [Synthroid] 100 mcg PO DAILY 01/29/18 Atorvastatin Calcium [Lipitor] 40 mg PO QHS #30 tab 02/02/18 Acetaminophen [Tylenol Tablet] 650 mg PO Q6H PRN PRN tab 01/16/19 Albuterol Aerosols [Ventolin Aerosols] 2.5 mg INHALATION Q2H PRN PRN vial.neb. 01/16/19 Amlodipine [Norvasc] 5 mg PO DAILY tab 01/16/19 Docusate Sodium [Colace] 100 mg PO BID PRN PRN cap 01/16/19 Folic Acid/Vitamin B Comp W-C [Nephrocaps, Renaphro] 1 cap PO DAILY cap 01/16/19 Isosorbide Mononitrate [Imdur] 60 mg PO DAILY tab 01/16/19 Metoprolol Tartrate [Lopressor (beta ramon)] 50 mg PO BID tab 01/16/19 Primary Care Physician: Wayne Leahy Chi, MD [Primary Care Provider] - Disposition: Halfway facility Minutes spent on discharge:: 34 Patient Condition:: Stable Medical Necessity - Tobacco Use Smoking Status: Never smoker Tobacco Use: Non-smoker Meaningful Use Info Meaningful Use Diagnoses (Choose all that apply): None applicable Code Visit Inpatient E&M: 05737 Disch Hosp
== END 2019-01-16 18:45 | disposition skilled nursing facility (03) | DRG 291 ==
LOC: ED 12:50 → ICU 13:18 → PCU 01-14 13:17 → ICU 01-15 09:30 → PCU 01-15 09:30
PROVIDERS: Internal Medicine Critical Care Medicine; Internal Medicine Nephrology; Surgery; Admitting Provider Internal Medicine; Emergency Provider Emergency Medicine; Family Provider Family Medicine Geriatric Medicine; PCP Family Medicine Geriatric Medicine; Referring Provider Internal Medicine; Visit Provider Internal Medicine
PROC: 0JH63XZ Insertion of Tunneled Vascular Access Device into Chest Subcutaneous Tissue and Fascia, Percutaneous Approach (ICD-10-PCS; principal; 2019-01-15 15:15)
DX: I13.2 Hypertensive heart and chronic kidney disease with heart failure and with stage 5 chronic kidney disease, or end stage renal disease (principal); J96.01 Acute respiratory failure with hypoxia; I50.31 Acute diastolic (congestive) heart failure; G93.41 Metabolic encephalopathy; I16.1 Hypertensive emergency; N17.9 Acute kidney failure, unspecified; N18.5 Chronic kidney disease, stage 5; K76.1 Chronic passive congestion of liver; D50.9 Iron deficiency anemia, unspecified; D63.1 Anemia in chronic kidney disease; F01.50 Vascular dementia, unspecified severity, without behavioral disturbance, psychotic disturbance, mood disturbance, and anxiety; E78.5 Hyperlipidemia, unspecified; H40.9 Unspecified glaucoma; Z86.73 Personal history of transient ischemic attack (TIA), and cerebral infarction without residual deficits
CPT/HCPCS: 36415; 36600; 70360; 71045; 76000; 80048; 80053; 80069; 80076; 82607; 82668; 82728; 82746; 82803; 82962; 83540; 83550; 83615; 83880; 84484; 85025; 85610; 85730; 86160; 86706; 86850; 86900; 86901; 86920; 86922; 87340; 90937; 93005; 93306; 94002; 94003; 94640; 97163; 97166; 97802; 99251; 99285; J1756; J7030; J7050; P9016; P9017; Q9957; A4216; C1750; C8929; G0257; G0463; J1940; J2405; Q5106

== ENCOUNTER 2019-02-19 07:18 | Day surgery (SDC) | payer MEDICARE, MEDICAID, SELFPAY ==
[2019-01-09 13:47] VITALS: BMI 28.8
[2019-02-12 13:35] VITALS: BMI 29.5
--- NOTE | 2019-02-12 14:21 | EKG12_ITS ---
Test Reason : PRE OP Blood Pressure : / mmHG Vent. Rate : 077 BPM Atrial Rate : 077 BPM P-R Int : 108 ms QRS Dur : 088 ms QT Int : 402 ms P-R-T Axes : 035 -25 -17 degrees QTc Int : 454 ms Sinus rhythm with short PA Borderline ECG Confirmed by ROHITH SALMON, JOSE ELIAS ([id number]), video tape editor RICHIE PARK ([id number]) on 02/14/2019 10:40:24 AM Referred By: Wero Adrian Confirmed By:JOSE ELIAS NEWBERRY MD
[2019-02-12 14:51] LABS: Hematocrit 34.5 % (37-47); Hemoglobin 10.2 g/dL (12.0-15.0); Mean Corp Hgb Conc 29.6 g/dL (32-36); Mean Corpuscular Volume 91.3 fL (81-99); Mean Platelet Vol. 12.5 fl (6.2-12.0); Platelet Count 180 K/mm3 (150-450); RBC Distribution Width CV 17.9 % (11.6-14.6); RBC Distribution Width SD 59.5 fl (35.1-43.9); Red Blood Count 3.78 M/mm3 (4.2-5.4)
[2019-02-12 15:39] LABS: Anion Gap 8 (5-15); BUN 34 mg/dL (7-18); BUN/Creat Ratio 7.6 RATIO (10-20); Calcium,Total 8.2 mg/dL (8.5-10.1); Chloride 107 mmol/L (98-107); Creatinine, Serum 4.45 mg/dL (0.55-1.02); EST Glomerular Filtration Rate 10 mL/min (>60); Est Glom Filt Rate - Afr Amer 12 mL/min (>60); Glucose 170 mg/dL (74-106); Potassium 4.4 mmol/L (3.5-5.1); Sodium Level 144 mmol/L (136-145)
[2019-02-19 07:38] VITALS: BP 185/85; PULSE 66; RESP 15; TEMP 37; O2SAT 98; BMI 26.6
[2019-02-19] MEDS: 0.45% Normal Saline 1,000 ML 15 ML IV (07:52)
--- NOTE | 2019-02-19 08:41 | PCM.HP.BLA ---
Problem List (1) Chronic renal failure, stage 5 Status: Chronic History and Physical Date of Admission: 02/19/19 Intake Visit Reasons: update h&p stage 1 LUE fistula creation Chief Complaint: dyspnea Clinical Application Consultant Required: No Is patient in pain?: No Allergies erythromycin base Allergy (Verified 02/13/19 08:42) Rash lisinopril Allergy (Verified 02/13/19 08:42) Unknown NSAIDS (Non-Steroidal Anti-Inflamma Allergy (Verified 02/13/19 08:42) Other Salicylates Allergy (Verified 02/13/19 08:42) Other PROTEIN IN URINE DRUG Allergy (Uncoded 02/13/19 08:42) Other Medications Bimatoprost 0.01% [Lumigan 0.01%] 1 drp RIGHT EYE QHS 12/27/14 [History Confirmed 02/13/19] Ergocalciferol [Vitamin D] 50,000 unit PO QMONTH 07/20/15 [History Confirmed 02/13/19] Aspirin E.C. [Ecotrin] 81 mg PO DAILY@0800 #30 tab 07/22/15 [Rx Confirmed 02/13/19] Timolol 0.5% [Timoptic] 1 drp EACH EYE BID 11/26/15 [History Confirmed 02/13/19] Levothyroxine [Synthroid] 100 mcg PO DAILY 01/29/18 [History Confirmed 02/13/19] Atorvastatin Calcium [Lipitor] 40 mg PO QHS #30 tab 02/02/18 [Rx Confirmed 02/13/19] Acetaminophen [Tylenol Tablet] 650 mg PO Q6H PRN PRN tab 01/16/19 [Rx Confirmed 02/13/19] Albuterol Aerosols [Ventolin Aerosols] 2.5 mg INHALATION Q2H PRN PRN vial.neb. 01/16/19 [Rx Confirmed 02/13/19] Amlodipine [Norvasc] 5 mg PO DAILY tab 01/16/19 [Rx Confirmed 02/13/19] Docusate Sodium [Colace] 100 mg PO BID PRN PRN cap 01/16/19 [Rx Confirmed 02/13/19] Folic Acid/Vitamin B Comp W-C [Nephrocaps, Renaphro] 1 cap PO DAILY cap 01/16/19 [Rx Confirmed 02/13/19] Isosorbide Mononitrate [Imdur] 60 mg PO DAILY tab 01/16/19 [Rx Confirmed 02/13/19] Metoprolol Tartrate [Lopressor (beta ramon)] 50 mg PO BID tab 01/16/19 [Rx Confirmed 02/13/19] Dextran 70/Hypromellose/Pf [Artificial Tears Drops] 1 ea OP 4X/DAY 02/13/19 [History Confirmed 02/13/19] Nut.tx.impaired Renal Fxn,Soy [Novasource Renal 2 Corky] 8 oz PO BID 02/13/19 [History Confirmed 02/13/19] PFSH Medical History Chronic renal failure, stage 4 (severe) (Chronic) Stroke (Resolved) History of stroke (Chronic) CVA (cerebral vascular accident) (Resolved) Asthma (Chronic) Glaucoma (Chronic) Hypertension (Chronic) Obesity (BMI 30.0-34.9) (Chronic) Hyperlipidemia (Chronic) Cough (Resolved) Shortness of breath (Acute) Cerebellar infarct (Resolved) Speech apraxia (Chronic) CVA (cerebral infarction) (Resolved) Iron deficiency anemia (Acute) Chronic kidney disease (CKD) stage G5/A1, glomerular filtration rate (GFR) less than or equal to 15 mL/min/1.73 square meter and albuminuria creatinine ratio less than 30 mg/g (Chronic) Surgical History Hx of foot surgery (Resolved) Hx of thyroidectomy (Resolved) Hx of cataract extraction (Resolved) Hx of hysterectomy (Resolved) Family History Mother Colon cancer Hypertension Father Hypertension Social History (Updated 02/13/19 @ 10:22 by Cleo Dalton PA-C) Smoking Status: Never smoker second hand exposure: No alcohol intake: never substance use type: does not use caffeine: Yes what type of physical activity do you participate in: none frequency: does not exercise HPI HPI HPI: LOUISE ZAVALA is a 84 F who presents to the office today for HPI HPI Surgical H&P: Yes HPI: LOUISE ZAVALA is a 84 F who presents to the office today for an update history and physical for an upcoming surgical procedure. Patient was hospitalized at the end of December due to worsening renal failure and acute congestive heart failure. Dr. Youngblood urgently placed right chest tunneled dialysis catheters and patient was placed on dialysis. She dialyzes T, Th and Sat. She currently resides at the [facility] for rehabilitation. Patient denies any further hospitalizations or illnesses since that time. Patient is preset with her daughter, who assist with most of the patient's history. Patient does have dementia. Patient is maintained on a daily aspirin. Patient's previous history per Dr. Adrian: LOUISE ZAVALA, is a 83 F who presents to the office today for surgical consultation regarding arteriovenous fistula creation. The patient is referred by Dr. Kianna Patrick and a written compromise surgical consult recommendations will be returned to her. The patient's primary care physician is Dr. Leahy. 83-year-old -[place] female. She is right arm dominant. She presents with a daughter today who lives in [facility]. The patient has had previous strokes. She has progressive renal insufficiency currently stage IV. On January 02, 2019 at the [facility] she had unilateral left upper extremity vein mapping. Demonstrates that the cephalic vein is very diminutive throughout. The basilic vein at its origin in the upper arm is 0.58 x 0.56 cm. Just above the antecubital space however it 0.18 x 0.2 cm and distally its very diminutive. The brachial artery is of adequate size. The patient does have dementia. The daughter did with forward discussion that was had today. The patient however definitely requests proceeding with dialysis if indicated. [facility] [address] [place] [address]. [place] [address] Saphenous Vein Mapping, Unilat 01/02/19 1053 MR#: [id number] Name: LOUISE ZAVALA [facility] #:[id number] : 1935 83From: Wero Adrian MD Attending Dr: Vanesa Patrick DO: REBECA ARITA Ordering Dr: Kianna Patrick DODate: 01/02/19 Location:[facility]SSex:[facility] Admitted: Reason For Study: CKD Left Arm Left cephalic vein is compressible. Left Cephalic Vein at the shoulder measures .12 x .13 cm. Left Cephalic Vein at mid bicep measures .14 x .15 cm. Left Cephalic Vein above antecub measures .16 x .16 cm. Left Cephalic Vein below antecub measures .08 x .11 cm. Left Cephalic Vein in the forearm measures .08 x .12 cm. Left Cephalic Vein at the wrist measures .08 x .1 cm. Left basilic vein is compressible. Basilic vein at origin measures .58 x .56 cm. Basilic vein above antecub measures .18 x .2 cm. Basilic vein below antecub measures .08 x .09 cm. Basilic vein in the forearm measures .06 x .07 cm. Basilic vein at the wrist measures .09 x .11 cm. Brachial Art .44 x .48 cm. Brachial Art 82.9 cm/s. Radial Art .2 x .24 cm. Radial Art 85.5 cm/s. Interpretation Summary Diminutive cephalic vein throughout Borderline left upper arm basilic vein Adequate diameter left brachial artery and small left radial artery. Ordering Physician: Kianna Patrick Performed By: Sergo Viera RVT ? 01/02/191651 Date Wero Adrian MD ROS General General: Yes weight change and fatigue; no appetite, colon cancer, breast cancer or weakness HEENT HEENT: Yes eye surgery; no difficulty swallowing, eye injury, swollen glands or hoarseness Endo Endocrine: No thyroid disease, diabetes mellitus, thyroid cancer, Hair loss, heat intolerance or cold intolerance Skin Skin: No rash or changing moles Breast Breast: No left breast lump, right breast lump, nipple discharge, breast pain, abnormal mammogram, abnormal US or breast enlargement Musc Musculoskeletal: No back problems, arthritis, rheumatoid arthritis, gout or joint pain Cardio Cardiovascular: Yes high blood pressure and heart attack; no murmur, pacemaker, heart disease, atrial fibrillation, heart stent, palpitations, shortness of breat with exertion or chest pain Psych Psychiatric: No depression, anxiety or hearing voices Resp Respiratory: Yes shortness of breath, Yes sleep apnea, No cough, No COPD, Yes asthma, No emphysema, No wheezing Gastro Gastrointestinal: No abdominal pain, No nausea or vomiting, No diarrhea, No constipation, No blood in stool, No acid reflux, No hemorrhoids, No ulcers, No gallbladder problem, No black,tarry stools Iain Hematologic: No blood thinners, No blood disorders, No bleeding, Yes anemia, No blood clots Neuro Neurologic: No weakness Exam Const General: cooperative, healthy appearing, comfortable, no acute distress [facility] Head: normal to inspection Eyes General: appearance normal, both eyes and all related structures Neck Neck: normal visual inspection Neck mass: No Chest Breast Palpation: No nipple discharge Other: Right IJ tunneled dialysis catheter- c/d/i. No signs of infection noted. Resp Effort & Inspection: normal respiratory effort Auscultation: clear to auscultation bilaterally Cardio Rate: regular rate Rhythm: regular rhythm Heart Sounds: no murmurs GI Inspection: normal to inspection Palpation: soft Auscultation: normal bowel sounds Skin General: no rashes or lesions noted Neuro General: no focal motor deficits, CN's II-XI intact bilaterally Extrem General: normal to inspection Psych Appearance: grossly normal Affect: normal affect Assessment & Plan Problems 1. Chronic renal failure, stage [address] Adrian will plan to perform a stage I left upper extremity brachial to basilic AV fistula creation. Procedure details, risks and benefits have been reviewed. Patient and her daughter have had the opportunity to ask and have questions answered. Patient verbally understands and agrees with the plan. Coding Level of Care Code No Charge Diagnoses Chronic renal failure, stage 5 N18.5 Comment Update H&P 02/13/19 1022 <Electronically signed by Cleo Dalton PA-C> Date Cleo Dalton PA-C Cosigner Signature: Date (if applicable) CC: ~ I have re-examined the patient. There are no clinical changes since date of exam.
--- NOTE | 2019-02-19 09:12 | DCINST_ITS ---
Discharge Diet: Renal Diet Discharge Activity: May Not Drive - for 2-3 days or while taking narcotic pain medications., May Shower, May Take a Tub Bath - in 5 days. Lifting Restrictions: 5 pounds Keep extremity elevated above heart level: - - Keep arm elevated above the heart level for 3 days. Additional Activity Instructions:: Exercise hand vigorously with a stress ball. Call your doctor if your incision/area has: Continuous Slow Oozing, Sudden Increased Bleeding - apply pressure and call your doctor., Increased Pain/ Swelling, Increased Redness, Foul Smelling Discharge Call your doctor if you observe: Fever of 101 or Higher Suture Line Care: Avoid Pulling/Pushing, Avoid Pinching/Bending Cleanse incision/area with: Keep Dressing Clean & Dry Additional Dressing/Incision Instructions:: Elevate your left arm for comfort. You may remove the dressing in 2 days. Leave the Steri-Strips in place for 1 week. Allergies/Adverse Reactions: Allergies erythromycin base Allergy (Verified 02/19/19 07:30) Rash lisinopril Allergy (Verified 02/19/19 07:30) Unknown NSAIDS (Non-Steroidal Anti-Inflamma Allergy (Verified 02/19/19 07:30) Other Salicylates Allergy (Verified 02/19/19 07:30) Other PROTEIN IN URINE DRUG Allergy (Uncoded 02/19/19 07:30) Other Medications to take at Discharge Bimatoprost 0.01% [Lumigan 0.01%] 1 drp RIGHT EYE QHS 12/27/14 Ergocalciferol [Vitamin D] 50,000 unit PO QMONTH 07/20/15 Aspirin E.C. [Ecotrin] 81 mg PO DAILY@0800 #30 tab 07/22/15 Timolol 0.5% [Timoptic] 1 drp EACH EYE BID 11/26/15 Levothyroxine [Synthroid] 100 mcg PO DAILY 01/29/18 Atorvastatin Calcium [Lipitor] 40 mg PO QHS #30 tab 02/02/18 Acetaminophen [Tylenol Tablet] 650 mg PO Q6H PRN PRN tab 01/16/19 Albuterol Aerosols [Ventolin Aerosols] 2.5 mg INHALATION Q2H PRN PRN vial.neb. 01/16/19 Amlodipine [Norvasc] 5 mg PO DAILY tab 01/16/19 Docusate Sodium [Colace] 100 mg PO BID PRN PRN cap 01/16/19 Folic Acid/Vitamin B Comp W-C [Nephrocaps, Renaphro] 1 cap PO DAILY cap 01/16/19 Isosorbide Mononitrate [Imdur] 60 mg PO DAILY tab 01/16/19 Metoprolol Tartrate [Lopressor (beta ramon)] 50 mg PO BID tab 01/16/19 Dextran 70/Hypromellose/Pf [Artificial Tears Drops] 1 ea OP 4X/DAY 02/13/19 Nut.tx.impaired Renal Fxn,Soy [Novasource Renal 2 Corky] 8 oz PO BID 02/13/19 Primary Care Physician: Wayne Leahy Chi, MD [Primary Care Provider] - Test Results: Test results from this visit will be discussed in further detail at your follow- up appointment, if applicable. Please Follow Up With: Wero Adrian MD - [phone] When: Call to make an appointment for suture removal and follow up in 10 days
[2019-02-19] MEDS: Bupivacaine Mpf 0.5% 30 ML VIAL (10:00)
[2019-02-19] MEDS: Heparin Injection (Vial) 5,000 UNIT/ML VIAL 5000 UNIT (10:10)
--- NOTE | 2019-02-19 10:27 | OP.PCM_ITS ---
Problem List (1) Chronic renal failure, stage 5 Status: Chronic Report of Operation Date of Procedure: 02/19/19 Pre-Operative Diagnosis: Stage V chronic renal failure Post-Operative Diagnosis: Same Surgery/Procedure Performed:: Left upper extremity stage I brachial to basilic arteriovenous fistula creation Description of Surgical Findings:: Timeout and informed consent was obtained. 84-year-old female taken out from placement table underwent monitored anesthesia care. 1% lidocaine mixed 50-50 with 0.5% Marcaine was used as local anesthetic. Any 2 cc was used. Local was instilled and a oblique incision created based upon ultrasound mapping of the basilic vein sharp and blunt dissection was used to identify the basilic vein this actually was quite challenging and took quite a bit of dissection. I then identified a branch point. I secured the vein distal with a Hemoclip transected the vein and spatulated it and irrigated with heparinized saline. Sharp and blunt dissection was used to identify the brachial artery and circumferential control was obtained. The patient received 6000 units of heparin. Peripheral vascular clamps were placed on the brachial artery proximally and distally and 11 blade was used to make an arteriotomy which was extended with Mitchell scissors. A end-to-side venous to arterial anastomosis was created with running 7-0 Prolene. Prior to completion there is good antegrade and retrograde flow. The anastomosis was completed was hemostatic and immediately there was good flow within the fistula with a palpable thrill. The patient received 20 mg of protamine. The deep wound was closed with interrupted 3-0 Vicryl simple sutures. The skin edges were approximated running septic or 4-0 Monocryl. Telfa and tape dressing applied. Sponge and instrument and needle counts were reported to surgically correct. Specimens none. Drains none. Blood loss minimal. The patient was taken to the recovery area in satisfactory condition without lucia arent complication. Hand was viable with a 3+ radial pulse. Wero Adrian M.D., F.A.C.S. Type of Anesthesia:: Local MAC Anesthesiologist: Tre Ramirez
[2019-02-19 10:40] VITALS: BP 149/77; BP 185/85; PULSE 68; RESP 16; TEMP 36.5; O2SAT 99
[2019-02-19 10:45] VITALS: BP 150/80; BP 185/85; PULSE 63; RESP 16; O2SAT 98
[2019-02-19 10:50] VITALS: BP 173/76; BP 185/85; PULSE 65; RESP 16; O2SAT 99
[2019-02-19 11:00] VITALS: BP 164/77; BP 185/85; PULSE 66; RESP 16; TEMP 36.5; O2SAT 98
[2019-02-19 12:33] VITALS: BP 185/85
== END 2019-02-19 12:32 | disposition skilled nursing facility (03) ==
LOC: SDC 07:18 → AC 07:19
PROVIDERS: Family Provider Family Medicine Geriatric Medicine; PCP Family Medicine Geriatric Medicine; Referring Provider Surgery; Visit Provider Surgery
PROC: (CPT 36821; principal; 2019-02-19 09:20)
DX: Z49.02 Encounter for fitting and adjustment of peritoneal dialysis catheter (principal); N18.5 Chronic kidney disease, stage 5; I13.2 Hypertensive heart and chronic kidney disease with heart failure and with stage 5 chronic kidney disease, or end stage renal disease; J45.909 Unspecified asthma, uncomplicated; D50.9 Iron deficiency anemia, unspecified; I12.0 Hypertensive chronic kidney disease with stage 5 chronic kidney disease or end stage renal disease; E78.5 Hyperlipidemia, unspecified; I50.9 Heart failure, unspecified; Z79.899 Other long term (current) drug therapy; Z79.82 Long term (current) use of aspirin; F03.90 Unspecified dementia, unspecified severity, without behavioral disturbance, psychotic disturbance, mood disturbance, and anxiety; Z99.2 Dependence on renal dialysis; Z86.73 Personal history of transient ischemic attack (TIA), and cerebral infarction without residual deficits
CPT/HCPCS: 01844; 36821; 36415; 80048; 85027; 93005

== ENCOUNTER 2019-04-03 06:21 | Day surgery (SDC) | payer MEDICARE, MEDICAID, SELFPAY ==
[2019-02-20 09:35] VITALS: BMI 26.6
--- NOTE | 2019-03-19 09:21 | HP_ITS ---
Intake Vital Signs 03/02/19 Body Mass Index (BMI) 26.6 03/02/19 Body Mass Index (BMI) 26.6 Intake Visit Reasons: Fistula Placement 02/19 Chief Complaint: wound check left arm Allergies erythromycin base Allergy (Verified 03/02/19 15:26) Rash lisinopril Allergy (Verified 03/02/19 15:26) Unknown NSAIDS (Non-Steroidal Anti-Inflamma Allergy (Verified 03/02/19 15:26) Other Salicylates Allergy (Verified 03/02/19 15:26) Other PROTEIN IN URINE DRUG Allergy (Uncoded 02/19/19 07:30) Other Medications Bimatoprost 0.01% [Lumigan 0.01%] 1 drp RIGHT EYE QHS 12/27/14 [History Confirmed 03/02/19] Ergocalciferol [Vitamin D] 50,000 unit PO QMONTH 07/20/15 [History Confirmed 03/02/19] Aspirin E.C. [Ecotrin] 81 mg PO DAILY@0800 #30 tab 07/22/15 [Rx Confirmed 03/02/19] Timolol 0.5% [Timoptic] 1 drp EACH EYE BID 11/26/15 [History Confirmed 03/02/19] Levothyroxine [Synthroid] 100 mcg PO DAILY 01/29/18 [History Confirmed 03/02/19] Atorvastatin Calcium [Lipitor] 40 mg PO QHS #30 tab 02/02/18 [Rx Confirmed 03/02/19] Acetaminophen [Tylenol Tablet] 650 mg PO Q6H PRN PRN tab 01/16/19 [Rx Confirmed 03/02/19] Albuterol Aerosols [Ventolin Aerosols] 2.5 mg INHALATION Q2H PRN PRN vial.neb. 01/16/19 [Rx Confirmed 03/02/19] Amlodipine [Norvasc] 5 mg PO DAILY tab 01/16/19 [Rx Confirmed 03/02/19] Docusate Sodium [Colace] 100 mg PO BID PRN PRN cap 01/16/19 [Rx Confirmed 03/02/19] Folic Acid/Vitamin B Comp W-C [Nephrocaps, Renaphro] 1 cap PO DAILY cap 01/16/19 [Rx Confirmed 03/02/19] Isosorbide Mononitrate [Imdur] 60 mg PO DAILY tab 01/16/19 [Rx Confirmed 03/02/19] Metoprolol Tartrate [Lopressor (beta ramon)] 50 mg PO BID tab 01/16/19 [Rx Confirmed 03/02/19] Dextran 70/Hypromellose/Pf [Artificial Tears Drops] 1 ea OP 4X/DAY 02/13/19 [History Confirmed 03/02/19] Nut.tx.impaired Renal Fxn,Soy [Novasource Renal 2 Corky] 8 oz PO BID 02/13/19 [History Confirmed 03/02/19] PFSH Medical History Chronic renal failure, stage 4 (severe) (Chronic) Stroke (Resolved) History of stroke (Chronic) CVA (cerebral vascular accident) (Resolved) Asthma (Chronic) Glaucoma (Chronic) Hypertension (Chronic) Obesity (BMI 30.0-34.9) (Chronic) Hyperlipidemia (Chronic) Cough (Resolved) Shortness of breath (Acute) Cerebellar infarct (Resolved) Speech apraxia (Chronic) CVA (cerebral infarction) (Resolved) Iron deficiency anemia (Acute) Chronic kidney disease (CKD) stage G5/A1, glomerular filtration rate (GFR) less than or equal to 15 mL/min/1.73 square meter and albuminuria creatinine ratio less than 30 mg/g (Chronic) Surgical History (Updated 03/02/19 @ 15:28 by Isela Vivas) Hx of foot surgery (Resolved) Hx of thyroidectomy (Resolved) Hx of cataract extraction (Resolved) Hx of hysterectomy (Resolved) s/p left AV fistula creation (Acute ~02/19/19) Family History Mother Colon cancer Hypertension Father Hypertension Social History (Updated 03/02/19 @ 16:17 by Wero Adrian MD) Smoking Status: Never smoker second hand exposure: No alcohol intake: never substance use type: does not use caffeine: Yes what type of physical activity do you participate in: none frequency: does not exercise HPI HPI HPI: LOUISE ZAVALA is a 84 F who presents to the office today for HPI HPI Surgical H&P: Yes HPI: LOUISE ZAVALA is a 84 F who presents to the office today for surgical follow-up. The patient had stage I left upper extremity brachial to basilic AV fistula creation on February 19, 2019. The 2 daughters and patient were concerned about bleeding and so the patient was seen on February 20, 2019. The wound was evaluated by physician office assistant Cleo Dalton and was found to be quite unremarkable. The patient now returns for ongoing follow-up. There is no particular complaints currently. Exam Const General: comfortable, no acute distress Nutritional Appearance: average body habitus Resp Effort & Inspection: normal respiratory effort Auscultation: clear to auscultation bilaterally Cardio Rate: regular rate Rhythm: regular rhythm GI Palpation: soft Extrem Other: Left upper extremity has a nicely healing oblique incision from stage I. There is a strong pulse and thrill and bruit within the brachial basilic AV fistula. I performed ultrasound inspection demonstrating that the basilic vein is maturing nicely Psych Other: Lack of complete understanding/dementia noted Assessment & Plan Problems 1. Chronic renal failure, stage 5 N18.5 2. Problem with dialysis access, initial encounter T82.838A Plan I have recommended the patient and HER-2 daughters present that we scheduled for stage II transposition left upper extremity basilic vein to brachial artery arteriovenous hemodialysis fistula creation. In detail I have discussed the technique, benefits, risks, alternatives. No guarantees of success have been offered. They are aware that this is a more extensive procedure than the original procedure. Apparently the patient and daughters had concerns about the amount of pain and bleeding from the original procedure. I like I anticipate utilizing more extensive bandaging to assist with swelling and discomfort. She has had an opportunity to ask and have questions answered. We will schedule and proceed at her discretion. I appreciate the ongoing opportunity of assisting with her surgical care. Primary care is Dr. Armond Adrian M.D., F.A.C.S. Coding Level of Care Code Global Post Op Diagnoses Chronic renal failure, stage 5 N18.5 Problem with dialysis access, initial encounter T82.349O ??Encounter type: initial encounter I have re-examined the patient. There are no clinical changes since date of exam.
[2019-03-28 09:19] VITALS: BMI 26.6
[2019-03-28 11:13] LABS: Hematocrit 41.6 % (37-47); Hemoglobin 12.6 g/dL (12.0-15.0); Mean Corp Hgb Conc 30.3 g/dL (32-36); Mean Corpuscular Hgb 27.4 pg (27.0-32.0); Mean Corpuscular Volume 90.4 fL (81-99); Mean Platelet Vol. 12.9 fl (6.2-12.0); Platelet Count 163 K/mm3 (150-450); RBC Distribution Width SD 57.1 fl (35.1-43.9); White Blood Count 6.4 K/mm3 (4.4-11.0)
[2019-03-28 11:39] LABS: Anion Gap 8 (5-15); BUN 24 mg/dL (7-18); BUN/Creat Ratio 5.2 RATIO (10-20); Calcium,Total 8.5 mg/dL (8.5-10.1); Chloride 97 mmol/L (98-107); Creatinine, Serum 4.63 mg/dL (0.55-1.02); EST Glomerular Filtration Rate 10 mL/min (>60); Est Glom Filt Rate - Afr Amer 12 mL/min (>60); Glucose 68 mg/dL (74-106); Potassium 4.1 mmol/L (3.5-5.1); Sodium Level 140 mmol/L (136-145)
[2019-04-03 06:41] VITALS: PULSE 66; RESP 15; TEMP 36.7; O2SAT 100; BMI 27.1
[2019-04-03] MEDS: 0.45% Normal Saline 1,000 ML 30 ML IV (06:53)
--- NOTE | 2019-04-03 07:48 | DCINST_ITS ---
Discharge Diet: Renal Diet Discharge Activity: May Not Drive, May Not Shower Lifting Restrictions: 3 pound weight lifting restriction left hand Additional Activity Instructions:: Exercise your left hand with a stress ball. Elevate your left hand and arm to limit swelling. You may apply ice to the incisional site to limit swelling. Keep the area clean and dry. Please utilize the Ian wrap dressing for approximately 5 to 7 days. You may remove it if it feels too snug and then reapply it Call your doctor if your incision/area has: Continuous Slow Oozing, Sudden Increased Bleeding, Increased Pain/ Swelling, Increased Redness, Foul Smelling Discharge Call your doctor if you observe: Fever of 101 or Higher Suture Line Care: Avoid Pulling/Pushing, Avoid Pinching/Bending Allergies/Adverse Reactions: Allergies erythromycin base Allergy (Verified 04/03/19 06:37) Rash lisinopril Allergy (Verified 04/03/19 06:37) Unknown NSAIDS (Non-Steroidal Anti-Inflamma Allergy (Verified 04/03/19 06:37) Other Salicylates Allergy (Verified 04/03/19 06:37) Other PROTEIN IN URINE DRUG Allergy (Uncoded 04/03/19 06:37) Other Medications to take at Discharge Bimatoprost 0.01% [Lumigan 0.01%] 1 drp RIGHT EYE QHS 12/27/14 Ergocalciferol [Vitamin D] 50,000 unit PO QMONTH 07/20/15 Aspirin E.C. [Ecotrin] 81 mg PO DAILY@0800 #30 tab 07/22/15 Timolol 0.5% [Timoptic] 1 drp EACH EYE BID 11/26/15 Levothyroxine [Synthroid] 100 mcg PO DAILY 01/29/18 Atorvastatin Calcium [Lipitor] 40 mg PO QHS #30 tab 02/02/18 Acetaminophen [Tylenol Tablet] 650 mg PO Q6H PRN PRN tab 01/16/19 Albuterol Aerosols [Ventolin Aerosols] 2.5 mg INHALATION Q2H PRN PRN vial.neb. 01/16/19 Amlodipine [Norvasc] 5 mg PO DAILY tab 01/16/19 Docusate Sodium [Colace] 100 mg PO BID PRN PRN cap 01/16/19 Folic Acid/Vitamin B Comp W-C [Nephrocaps, Renaphro] 1 cap PO DAILY cap 01/16/19 Isosorbide Mononitrate [Imdur] 60 mg PO DAILY tab 01/16/19 Metoprolol Tartrate [Lopressor (beta ramon)] 50 mg PO BID tab 01/16/19 Dextran 70/Hypromellose/Pf [Artificial Tears Drops] 1 ea OP 4X/DAY 02/13/19 Nut.tx.impaired Renal Fxn,Soy [Novasource Renal 2 Corky] 8 oz PO BID 02/13/19 Primary Care Physician: Wayne Leahy Chi, MD [Primary Care Provider] - Test Results: Test results from this visit will be discussed in further detail at your follow- up appointment, if applicable. Please Follow Up With: Wero Adrian MD - [phone] When: Call to make an appointment to be seen in about 10 days.
[2019-04-03] MEDS: Heparin Injection (Vial) 5,000 UNIT/ML VIAL 5000 UNIT (10:00)
[2019-04-03] MEDS: Bupivacaine Mpf 0.5% 30 ML VIAL (10:15)
--- NOTE | 2019-04-03 10:38 | PCM.OPRPT ---
Problem List (1) Chronic renal failure, stage 5 Status: Chronic (2) Problem with dialysis access Status: Acute Qualifiers: Encounter type: initial encounter Qualified Code(s): T82.898A - Other specified complication of vascular prosthetic devices, implants and grafts, initial encounter Report of Operation Date of Procedure: 04/03/19 Pre-Operative Diagnosis: Stage V renal failure and need for arteriovenous access with basilic vein fistula to deep for accessing Post-Operative Diagnosis: Same Surgery/Procedure Performed:: Stage II transposition left upper extremity basilic vein to brachial artery arteriovenous to fistula creation Description of Surgical Findings:: Timeout and informed consent was obtained. 84-year-old female was taken to the operating room placed on the table she underwent left upper extremity was sterilely prepped draped clean procedure no antibiotics required throughout the procedure 1% lidocaine mixed 50-50 with 0.5% Marcaine was used as a local anesthetic. 24 cc was used. An additional 38 cc of half percent lidocaine was used. Local was instilled. An attempt was made to block the nerves proximally to provide for more long-lasting comfort. Ultrasound had been used to map the course of the basilic vein. A longitudinal incision was made on the left upper arm sharp and blunt dissection was used to tediously dissect the basilic vein. Side branches were secured with 3-0 Vicryl ligatures and hemoclips were indicated. Excellent dissection was performed. Were needed accessory branches were secured with 3-0 Vicryl suture ligatures. I dissected all the way up to the shoulder area. Very nice vein was achieved. I then measured and marked a course of more on the superficial anterior superior dorsal portion of the arm. At that location then I did sharp and blunt dissection to identify the brachial artery. Circumferential control was obtained. I used a tunneler to go from the distal upper arm to more proximal forearm. I ligated the vein distally with 2-0 Vicryl suture ligatures vein was irrigated and it was placed through the tunnel had a nice positional lie. Patient received 7000 units of heparin. Peripheral vascular clamps were placed on the brachial artery and 11 blade was used medical arteriotomy which was extended with Mitchell scissors. A end-to-side anastomosis with the vein was created with a running 7-0 Prolene. Excellent apposition was achieved with immediate hemostasis. The vein appeared to have a very nice positional lie. There was a wonderful pulse thrill and bruit. Despite this there was still a 2-3+ left radial pulse palpable. Hemostasis was assured with electrocautery and 3-0 Vicryl were indicated. The wound was approximated with multiple subdermal stitches of 3-0 Vicryl and I approximated the space. I used powder fibular in addition for hemostasis. Having closed the entire wound and deep space then the skin edges were approximated running septic or 4-0 Monocryl. Steri-Strips Telfa soft roll Ian wrap applied. Sponge and instrument and needle counts reported the surgeon for correct. Blood loss 100 cc. Specimens none. Drains none. Blood loss 100 cc. The patient was taken to the recovery room in satisfactory condition without apparent complication Wero Adrian M.D., F.A.C.S. Type of Anesthesia:: General Anesthesiologist: Tre Ramirez
[2019-04-03 11:12] VITALS: BP 134/71; BP 140/80; PULSE 84; RESP 24; TEMP 36.5; O2SAT 98
[2019-04-03 11:15] VITALS: BP 135/73; BP 140/80; PULSE 63; RESP 16; O2SAT 98
[2019-04-03 11:30] VITALS: BP 140/71; BP 140/80; PULSE 60; RESP 16; O2SAT 99
[2019-04-03 11:45] VITALS: BP 140/80; BP 148/74; PULSE 63; RESP 16; TEMP 36.2; O2SAT 98
[2019-04-03] MEDS: HYDROcodone Bitartrate/Apap 5/325 Tablet PO (12:57)
[2019-04-03 13:16] VITALS: BP 140/80; BP 145/68; PULSE 65; RESP 16; TEMP 36.5; O2SAT 99
== END 2019-04-03 13:51 | disposition home or self-care (01) ==
LOC: SDC 06:22 → AC 06:22
PROVIDERS: Family Provider Family Medicine Geriatric Medicine; PCP Family Medicine Geriatric Medicine; Referring Provider Surgery; Visit Provider Surgery
PROC: (CPT 36819; principal; 2019-04-03 08:05)
DX: T82.898A Other specified complication of vascular prosthetic devices, implants and grafts, initial encounter (principal); I12.0 Hypertensive chronic kidney disease with stage 5 chronic kidney disease or end stage renal disease; N18.5 Chronic kidney disease, stage 5; Z99.2 Dependence on renal dialysis; D50.9 Iron deficiency anemia, unspecified; J44.9 Chronic obstructive pulmonary disease, unspecified; E78.5 Hyperlipidemia, unspecified; F32.9 Major depressive disorder, single episode, unspecified; E66.9 Obesity, unspecified; Z78.0 Asymptomatic menopausal state; Z88.8 Allergy status to other drugs, medicaments and biological substances; Z88.6 Allergy status to analgesic agent; Z88.1 Allergy status to other antibiotic agents; Z79.82 Long term (current) use of aspirin; Z79.899 Other long term (current) drug therapy; Z86.73 Personal history of transient ischemic attack (TIA), and cerebral infarction without residual deficits
CPT/HCPCS: 01844; 36819; 36415; 80048; 85027

== ENCOUNTER 2019-05-18 20:08 | Emergency (ER) | payer MEDICARE, MEDICAID, SELFPAY ==
[2019-05-18 20:09] VITALS: BP 166/87; PULSE 82; RESP 14; TEMP 36.7; O2SAT 98; BMI 26.9
--- NOTE | 2019-05-18 21:52 | ED.VIS.EYE ---
History of Present Illness Chief Complaint: Eye Problem Informant: Patient, Family Location: Right Eye Onset: Today Narrative: Patient is an 84-year-old female presenting from her nursing facility for concern of foreign body in her left eye. Her daughter is visiting from out of town and noticed a white spot in her right eye. She was concerned that there was a foreign body or something wrong with her eye so she wanted her brought to the emergency room for further evaluation. Patient currently denies any complaints. She denies any pain, vision changes or drainage of the eye. Patient follows with [facility]. Past Medical History - Allergies and Home Meds Allergies/Adverse Reactions: Allergies erythromycin base Allergy (Verified 05/18/19 20:12) Rash lisinopril Allergy (Verified 05/18/19 20:12) Unknown NSAIDS (Non-Steroidal Anti-Inflamma Allergy (Verified 05/18/19 20:12) Other Salicylates Allergy (Verified 05/18/19 20:12) Other PROTEIN IN URINE DRUG Allergy (Uncoded 05/18/19 20:12) Other Primary Care Physician: Deni Tran MD [STAFF PHYSICIAN] - Wayne Leahy Chi, MD [Primary Care Provider] - Past Medical History: - - End-stage renal disease on hemodialysis, glaucoma, hypertension, hyperlipidemia, history of stroke Surgical History: cataract, hysterectomy, - - Leg tumor removed, unclear. Foot surgery, neck surgery-type unknown Smoking Status: Former smoker - Family History Maternal Family History: Family History (Last Reviewed 04/30/19 @ 15:37 by Marcie Gardner) Mother Colon cancer Hypertension Father Hypertension Family History: Reports: Hypertension Paternal Family History: Family History (Last Reviewed 04/30/19 @ 15:37 by Marcie Gardner) Mother Colon cancer Hypertension Father Hypertension Family History: Reports: Hypertension Review of Systems General: Denies: Chills, Fever, Sweats Eyes: Reports: - - white spot on right eye . Denies: Visual changes - bilaterally, Diplopia ENT: Denies: Rhinorrhea, Sore throat Cardiovascular: Denies: Chest pain, Palpitations Respiratory: Denies: Dyspnea, Cough, Dyspnea on exertion Gastrointestinal: Denies: Abdominal pain, Nausea, Vomiting, Diarrhea, Melena, Hematochezia Genitourinary: Denies: Dysuria, Hematuria, Frequency Musculoskeletal: Denies: Back pain, Extremity Pain Skin: Denies: Rash, Wounds Neurological: Denies: Headache, Weakness, Numbness Physical Exam 1 - raised white area Visual Acuity: right: 20/20 - 20/25, left: 20/30 Visual Acuity: Corrected Eyelid: Normal inspection Right Conjunctiva/Sclera: No foreign body, Diffuse focal injection, - - 3 mm irregular white raised growth at the 2 o'clock position of the conjunctivo-bordering the iris. This is consistent with pterygium Left Conjunctiva/Sclera: Normal inspection, No erythema Right Cornea: Normal inspection, No foreign body, No abrasion, No dye uptake Extraocular Motion: Normal exam, No pain Pupils: PERRL Anterior chamber: Normal exam Vital Signs/Narrative: Vital Signs Temp Pulse Resp BP Pulse Ox 05/18/19 20:09 98.0 F 82 14 166/87 H 98 Inital Vital Signs reviewed: Yes General: Well nourished, Well developed Head: Normocephalic, Atraumatic ENT: Moist mucous membranes, No rhinorrhea Neck: Supple, Nontender Cardiovascular: Regular rate, Regular rhythm, No murmurs, - - AV fistula in the left upper extremity Respiratory: No distress, CTA bilaterally, Chest nontender Back: Nontender, Normal Inspection Extremities: Nontender, No edema Skin: Normal color, No rash Neurological: Alert, Oriented x3, Cranial nerves II-XII grossly intact, Normal Strength, Normal Sensation Psychological: Normal affect Diagnostic/Tx/Re-eval - Medical Decision Making Patient has a white growth on her right eye that is consistent with pterygium. I did check her eye with fluorescein which not show any evidence of a foreign body. Patient will be started on Visine eyedrops for her some irritation of her eye and follow-up with her collar feller. Daughters are agreeable to this plan. Patient is otherwise asymptomatic. Patient is counseled on signs and symptoms requiring return to the emergency room. Patient verbalizes agreement and understand this plan. Patient discharged home in stable and improved condition. ED Disposition - Plan for ED Patient: Disposition: Home or Assisted Living Diagnosis: Eye abnormality Instructions: Pterygium Prescriptions: Peg 400/Hypromellose/Glycerin [Visine Tears Drops] 1 drp OP Q2H PRN PRN #15 ml PRN Reason: Dry Eye Prescription Printed Referrals: Wayne Leahy Chi, MD [Primary Care Provider] - Deni Tran MD [STAFF PHYSICIAN] - Additional Instructions: I suspect the white you have seen in the right eye is a benign growth. I do not think it is a foreign body. Please follow-up with your eye doctor for evaluation of this next week.
[2019-05-18] MEDS: Fluorescein 1 MG STRIP 1 STRIP OPHTHALMIC (22:27)
== END 2019-05-18 23:08 | disposition home or self-care (01) ==
PROVIDERS: Emergency Provider Emergency Medicine; Family Provider Family Medicine Geriatric Medicine; PCP Family Medicine Geriatric Medicine
DX: H57.9 Unspecified disorder of eye and adnexa (principal); I12.0 Hypertensive chronic kidney disease with stage 5 chronic kidney disease or end stage renal disease; N18.6 End stage renal disease; E78.5 Hyperlipidemia, unspecified; Z99.2 Dependence on renal dialysis; Z79.82 Long term (current) use of aspirin; Z79.899 Other long term (current) drug therapy; Z86.73 Personal history of transient ischemic attack (TIA), and cerebral infarction without residual deficits; Z87.891 Personal history of nicotine dependence; Z90.710 Acquired absence of both cervix and uterus
CPT/HCPCS: 99284

== ENCOUNTER 2019-06-05 12:49 | Emergency (ER) | payer MEDICARE, SELFPAY ==
[2019-06-05 12:51] VITALS: BP 130/98; PULSE 86; RESP 18; TEMP 36.6; O2SAT 97; BMI 26.6
[2019-06-05 12:56] VITALS: BP 179/82; PULSE 85; PULSE 87; RESP 18; TEMP 36.6; O2SAT 98
[2019-06-05 12:57] VITALS: O2SAT 98
--- NOTE | 2019-06-05 13:01 | EKG12_ITS ---
Test Reason : SOB Blood Pressure : / mmHG Vent. Rate : 084 BPM Atrial Rate : 084 BPM P-R Int : 148 ms QRS Dur : 126 ms QT Int : 394 ms P-R-T Axes : 048 -55 -10 degrees QTc Int : 465 ms Normal sinus rhythm Right bundle branch block Left anterior fascicular block Bifascicular block Cannot rule out Inferior infarct (masked by fascicular block?) , age undetermined Abnormal ECG Confirmed by IVETT SALMON, RAPHAEL ([id number]), sound editor SESAR PELLETIER ([id number]) on 06/08/2019 9:56:27 AM Referred By: JOEL Confirmed By:STACEY ROOT MD
[2019-06-05 14:09] LABS: Absolute Lymphocyte Count 2.56 X10^3/uL (0.83-4.51); Absolute Neutrophil Count 5.7 X10^3/uL (2.0-7.7); Basophil# 0.08 X10^3/uL; Basophil% 0.8 % (0-1); Eosinophil# 0.28 X10^3/uL; Hematocrit 38.5 % (37-47); Hemoglobin 12.1 g/dL (12.0-15.0); Lymphocyte # 2.56 X10^3/ul (4.0); Lymphocyte % 27.1 % (19-41); Mean Corp Hgb Conc 31.4 g/dL (32-36); Mean Corpuscular Hgb 27.9 pg (27.0-32.0); Mean Corpuscular Volume 88.9 fL (81-99); Mean Platelet Vol. 12.4 fl (6.2-12.0); Monocyte% 8.5 % (0-10); NRBC Flagged by Analyzer 0 % (0-5); Neutrophil # 5.69 X10^3/uL (2.7-7.7); Neutrophil % 60.2 % (47-70); Platelet Count 119 K/mm3 (150-450); RBC Distribution Width CV 16.7 % (11.6-14.6); RBC Distribution Width SD 54.2 fl (35.1-43.9); Red Blood Count 4.33 M/mm3 (4.2-5.4); White Blood Count 9.5 K/mm3 (4.4-11.0)
--- NOTE | 2019-06-05 14:11 | RAD_ITS ---
STUDY: X-RAY CHEST REASON FOR EXAM: Female, 84 years old. cough, sob, confusion TECHNIQUE: PA and lateral views of the chest. COMPARISON: January 15, 2019 FINDINGS: There is hyperinflation of the lungs consistent with chronic obstructive lung disease (COPD). Stable right central venous catheter. Minor interstitial thickening is seen in both lungs. A 2.96 x 2.56 cm rounded area of consolidation or nodule is seen in the right lower lobe that should be further evaluated with chest CT. Normal size heart. Normal mediastinum and chandrika. Normal visualized pulmonary arteries. There is atherosclerotic calcification of the aortic arch with tortuosity. There are diffuse degenerative changes of the visualized thoracic spine. Normal visualized ribs, clavicles, and shoulders. RAD/Chest PA and Lateral IMPRESSION: 1. There is hyperinflation of the lungs consistent with chronic obstructive lung disease (COPD). Stable right central venous catheter. Minor interstitial thickening is seen in both lungs. 2. A 2.96 x 2.56 cm rounded area of consolidation or nodule is seen in the right lower lobe that should be further evaluated with chest CT. Electronically Signed: Mark Ly MD at 15:54 EST , Service support ,
[2019-06-05 14:22] LABS: Anion Gap 5 (5-15); BUN 44 mg/dL (7-18); BUN/Creat Ratio 6.3 RATIO (10-20); Calcium,Total 8.7 mg/dL (8.5-10.1); Chloride 106 mmol/L (98-107); Creatinine, Serum 7.01 mg/dL (0.55-1.02); EST Glomerular Filtration Rate 6 mL/min (>60); Est Glom Filt Rate - Afr Amer 7 mL/min (>60); Estimated Creatinine Clearance 5.47 ml/min; Glucose 88 mg/dL (74-106); Potassium 5.3 mmol/L (3.5-5.1); Sodium Level 141 mmol/L (136-145)
--- NOTE | 2019-06-05 14:32 | ED.VIS.GEN ---
History of Present Illness Chief Complaint: Shortness of Breath Informant: Patient, Family, Security Police Onset: Today Context: Sudden Onset Timing: Intermittent Quality: Shortness of breath during dialysis Current Severity: - Maximum Severity: Moderate Worsened by: Nothing Relieved by: Nothing Associated Symptoms: No associated symptoms Narrative: Patient is a 84-year-old woman with history of end-stage renal disease on hemodialysis. She presented by squad from dialysis unit. She developed shortness of breath 20 minutes into dialysis. She presently has no symptoms. She only complained of shortness of breath. She denied chest discomfort. She had no other complaints. She denies fever, chills night sweats. She does have URI symptoms with congestion slight cough. This started several days ago. She denies GI symptoms. She denies headache, visual, ocular auditory sense. Denies neck pain or neck stiffness. She denies photophobia. Prior similar symptoms: No Recent Illness/Hospitalization: No - Past Medical History (1) Congestive heart failure Status: Acute Comment: DIASTOLIC (2) Elevated troponin I level Status: Acute (3) Shortness of breath Status: Acute Comment: DUE TO DIASTOLIC CHF (4) Chronic renal failure, stage 5 Status: Chronic (5) Dementia Status: Chronic (6) Glaucoma Status: Chronic (7) History of stroke Status: Chronic (8) Hyperlipidemia Status: Chronic (9) Hypertension Status: Chronic (10) Obesity (BMI 30.0-34.9) Status: Chronic (11) CVA (cerebral infarction) Status: Resolved Comment: MRI Brain w/ multiple acute infarcts involving right insular cortex, right fleming radiata and frontal lobe, mild involutional changes of the brain, prior old infarcts noted. MRA Head w/ hemodynamically significant stenosis of the L P1, P2, P3 branches, no evidence of aneurysms, otherwise normal appearing [place]. MRA Neck limited study, f/u Carotid US with noted mild-moderate disease, no acute disease or narrowing. (12) Hx of cataract extraction Status: Resolved (13) Hx of foot surgery Status: Resolved (14) Hx of hysterectomy Status: Resolved (15) Hx of thyroidectomy Status: Resolved Comment: HYPOTHYROIDISM Past Medical History - Allergies and Home Meds Allergies/Adverse Reactions: Allergies erythromycin base Allergy (Verified 06/05/19 12:55) Rash lisinopril Allergy (Verified 06/05/19 12:55) Unknown NSAIDS (Non-Steroidal Anti-Inflamma Allergy (Verified 06/05/19 12:55) Other Salicylates Allergy (Verified 06/05/19 12:55) Other PROTEIN IN URINE DRUG Allergy (Uncoded 06/05/19 12:55) Other Primary Care Physician: Wayne Leahy Chi, MD [Primary Care Provider] - Prior records reviewed: Yes Surgical History: cataract, hysterectomy, - - Leg tumor removed, unclear. Foot surgery, neck surgery-type unknown Lives: Alone Smoking Status: Former smoker Alcohol: None Drugs: None - Family History Maternal Family History: Family History (Last Reviewed 04/30/19 @ 15:37 by Marcie Gardner) Mother Colon cancer Hypertension Father Hypertension Family History: Reports: Hypertension Paternal Family History: Family History (Last Reviewed 04/30/19 @ 15:37 by Marcie Gardner) Mother Colon cancer Hypertension Father Hypertension Family History: Reports: Hypertension Review of Systems General: Denies: Chills, Fever, Sweats Eyes: Denies: Visual changes - bilaterally, Diplopia ENT: Reports: Rhinorrhea. Denies: Bilateral ear pain, Sore throat Respiratory: Reports: Dyspnea, Cough. Denies: Sputum, Dyspnea on exertion, Orthopnea, Paroxysmal nocturnal dyspnea, -, - Gastrointestinal: Denies: Abdominal pain, Nausea, Vomiting, Diarrhea, Melena, Hematochezia Musculoskeletal: Denies: Myalgias, Arthralgias, Neck pain, Back pain, Swelling, Extremity Pain, -, - Skin: Denies: Rash, Wounds Neurological: Denies: Headache Hematologic: Denies: Easy bruising, Easy bleeding Physical Exam Vital Signs/Narrative: Vital Signs Temp Pulse Resp BP Pulse Ox 06/05/19 12:56 98 F 87 18 179/82 H 98 06/05/19 12:51 98 F 86 18 130/98 H 97 Inital Vital Signs reviewed: Yes General: Well nourished, Well developed, Obese, No Acute Distress Head: Normocephalic, Atraumatic Eyes: Perrl, EOMI ENT: Moist mucous membranes, No rhinorrhea Neck: Supple, Nontender, No lymphadenopathy, No JVD Cardiovascular: Regular rate, Regular rhythm, No murmurs, Normal S1, Normal S2 Respiratory: No distress, CTA bilaterally, Chest nontender Abdomen: Soft, Nontender, Nondistended, Normal bowel sounds, No masses Back: Nontender, Normal Inspection. Negative for: CVA tenderness Extremities: Nontender, No edema. Negative for: Tenderness Skin: Normal color, No rash, No Trauma. Negative for: Cyanosis, Diaphoresis, Jaundice Neurological: Alert, Oriented x3, Cranial nerves II-XII grossly intact, Normal Strength, Normal Sensation, - - He is slightly impaired. Psychological: Normal affect, Normal Mood Diagnostic/Tx/Re-eval Chest X-Ray - ED: 2 View, Read by ED Physician, Normal, Mediastinum, Bony Structures, No Acute Disease, Chronic Changes, - - The chest x-ray is unchanged from January 15, 2019. Right subclavian Vas-Cath noted. 06/05/19 14:11 Chest PA and Lateral [RAD] Stat Laboratory Results 06/05/19 06/05/19 14:00 14:00 WBC 9.5 RBC 4.33 Hgb 12.1 Hct 38.5 MCV 88.9 MCH 27.9 MCHC 31.4 L RDW Std Deviation 54.2 H RDW Coeff of Lizett 16.7 H Plt Count 119 L MPV 12.4 H Immature Gran % (Auto) 0.400 Neut % (Auto) 60.2 Lymph % (Auto) 27.1 [place] % (Auto) 8.5 Eos % (Auto) 3.0 Baso % (Auto) 0.8 Absolute Neuts (auto) 5.7 Absolute Lymphs (auto) 2.56 Nucleated RBC % 0 Sodium 141 Potassium 5.3 H Chloride 106 Carbon Dioxide 30.0 Anion Gap 5 BUN 44 H Creatinine 7.01 H Estim Creat Clear Calc 5.47 Est GFR (MDRD) Af Amer 7 L Est GFR (MDRD) Non-Af 6 L BUN/Creatinine Ratio 6.3 L Glucose 88 Calcium 8.7 - Medical Decision Making Work-up was undertaken to evaluate patient's transient dyspnea. This may have been caused for numerous reasons. Since her symptoms only lasted 20 minutes doubt pulmonary embolus. Will obtain EKG and blood work to assess for cardiac ischemia. Chest x-ray obtained to evaluate for pulmonary etiology. Patient's work-up was unremarkable. Since she is asymptomatic and symptoms only lasted for 20 minutes she was discharged to home. ED Disposition - Plan for ED Patient: Disposition: Home or Assisted Living Diagnosis: Dyspnea Instructions: ED Dyspnea Referrals: Wayne Leahy Chi, MD [Primary Care Provider] - 3-5 Days
[2019-06-05 15:43] VITALS: BP 181/70; BP 181/71; PULSE 82; RESP 17; O2SAT 100
== END 2019-06-05 15:59 | disposition home or self-care (01) ==
PROVIDERS: Emergency Provider Emergency Medicine; Family Provider Family Medicine Geriatric Medicine; PCP Family Medicine Geriatric Medicine
DX: R06.00 Dyspnea, unspecified (principal); I13.2 Hypertensive heart and chronic kidney disease with heart failure and with stage 5 chronic kidney disease, or end stage renal disease; N18.6 End stage renal disease; I50.32 Chronic diastolic (congestive) heart failure; Z99.2 Dependence on renal dialysis; E89.0 Postprocedural hypothyroidism; E78.5 Hyperlipidemia, unspecified; H40.9 Unspecified glaucoma; F03.90 Unspecified dementia, unspecified severity, without behavioral disturbance, psychotic disturbance, mood disturbance, and anxiety; E66.9 Obesity, unspecified; Z88.8 Allergy status to other drugs, medicaments and biological substances; Z88.6 Allergy status to analgesic agent; Z88.1 Allergy status to other antibiotic agents; Z79.82 Long term (current) use of aspirin; Z79.899 Other long term (current) drug therapy; Z86.73 Personal history of transient ischemic attack (TIA), and cerebral infarction without residual deficits; Z87.891 Personal history of nicotine dependence; Z90.710 Acquired absence of both cervix and uterus
CPT/HCPCS: 71046; 80048; 85025; 93005; 99285

== ENCOUNTER → 2019-06-07 14:29 | Outpatient (CLI) | payer MEDICARE, MEDICAID, SELFPAY ==
[2019-06-06 15:28] VITALS: BMI 26.6
[2019-06-07 16:43] LABS: Absolute Lymphocyte Count 2.85 X10^3/uL (0.83-4.51); Absolute Neutrophil Count 3.1 X10^3/uL (2.0-7.7); Basophil% 1.4 % (0-1); Eosinophil# 0.34 X10^3/uL; Eosinophils% 4.8 % (0-5); Hematocrit 37.1 % (37-47); Hemoglobin 11.4 g/dL (12.0-15.0); Lymphocyte # 2.85 X10^3/ul (4.0); Lymphocyte % 40.1 % (19-41); Mean Corp Hgb Conc 30.7 g/dL (32-36); Mean Corpuscular Hgb 27.2 pg (27.0-32.0); Mean Corpuscular Volume 88.5 fL (81-99); Mean Platelet Vol. 13.1 fl (6.2-12.0); Monocyte# 0.67 X10^3/uL; Monocyte% 9.4 % (0-10); NRBC Flagged by Analyzer 0 % (0-5); Neutrophil # 3.14 X10^3/uL (2.7-7.7); Neutrophil % 44.2 % (47-70); Platelet Count 124 K/mm3 (150-450); RBC Distribution Width CV 16.8 % (11.6-14.6); RBC Distribution Width SD 54.5 fl (35.1-43.9); Red Blood Count 4.19 M/mm3 (4.2-5.4); White Blood Count 7.1 K/mm3 (4.4-11.0)
[2019-06-07 17:04] LABS: ALB/GLOB Ratio 0.8 RATIO (0.9-2.4); AST(SGOT) 19 U/L (15-37); Alanine Aminotransfer ALT/SGPT 21 U/L (13-56); Albumin, Serum 3.1 g/dL (3.2-5.0); Alkaline Phosphatase 81 U/L (45-117); Anion Gap 4 (5-15); BUN 8 mg/dL (7-18); Calcium,Total 8.3 mg/dL (8.5-10.1); Chloride 97 mmol/L (98-107); Cholesterol 114 mg/dL (200); Creatinine, Serum 2.71 mg/dL (0.55-1.02); EST Glomerular Filtration Rate 18 mL/min (>60); Est Glom Filt Rate - Afr Amer 22 mL/min (>60); Globulin 4.1 g/dL (2.2-4.2); Glucose 99 mg/dL (74-106); High Density Lipoprotein 50 mg/dL; Protein, Total 7.2 g/dL (6.4-8.2); Sodium Level 138 mmol/L (136-145); Thyroid Stim Hormone (TSH) 2.49 uIU/mL (0.358-3.74); Triglycerides 101 mg/dL; Very Low Density Lipoprotein 20 mg/dL (5-40)
[2019-06-07 17:06] LABS: Vitamin D,25 Hydroxy 45.7 ng/mL (29.95-100.01)
== END ==
PROVIDERS: PCP Family Medicine Geriatric Medicine; Referring Provider Family Medicine Geriatric Medicine; Visit Provider Family Medicine Geriatric Medicine
DX: I10 Essential (primary) hypertension (principal); E78.5 Hyperlipidemia, unspecified; E55.9 Vitamin D deficiency, unspecified; N39.0 Urinary tract infection, site not specified; R53.83 Other fatigue
CPT/HCPCS: 36415; 80053; 80061; 82306; 84443; 85025; 87086; 87088; 87633

== ENCOUNTER → 2019-07-11 14:54 | Outpatient (CLI) | payer MEDICARE, MEDICAID, SELFPAY ==
[2019-06-06 15:28] VITALS: BMI 26.6
== END ==
PROVIDERS: PCP Family Medicine Geriatric Medicine; Referring Provider Family Medicine Geriatric Medicine; Visit Provider Family Medicine Geriatric Medicine
DX: R68.83 Chills (without fever) (principal)
CPT/HCPCS: 87633

== ENCOUNTER 2019-07-14 10:25 | Emergency (ER) | payer MEDICARE, MEDICAID, SELFPAY ==
[2019-06-06 15:28] VITALS: BMI 26.6
[2019-07-14] VITALS (7 sets, daily range): BP systolic 147–176; BP diastolic 78–96; PULSE 75–95; RESP 14–36; TEMP 35.9–36.2; O2SAT 99–100; BMI 34.9
--- NOTE | 2019-07-14 10:27 | EKG12_ITS ---
Test Reason : Blood Pressure : / mmHG Vent. Rate : 079 BPM Atrial Rate : 079 BPM P-R Int : 148 ms QRS Dur : 142 ms QT Int : 418 ms P-R-T Axes : 055 -52 -38 degrees QTc Int : 479 ms Normal sinus rhythm Right bundle branch block Left anterior fascicular block Bifascicular block Minimal voltage criteria for LVH, may be normal variant Abnormal ECG Confirmed by IVETT SALMON, RAPHAEL ([id number]), online editor RICHIE PARK ([id number]) on 07/16/2019 2:11:47 PM Referred By: EUGENIO Confirmed By:STACEY ROOT MD
--- NOTE | 2019-07-14 10:27 | CT_ITS ---
STUDY: CT BRAIN WITHOUT CONTRAST REASON FOR EXAM: Female, 84 years old. STROKE, LEFT SIDE WEAKNESS, DROOLING, SLURRED SPEECH RADIATION DOSAGE (If Supplied By Facility): CTDIvol = ( ) mGy, DLP = ( ) mGycm TECHNIQUE: Transaxial CT imaging of the brain was performed without administration of intravenous contrast material. Individualized dose optimization techniques were used for this CT. COMPARISON: October 30, 2018 FINDINGS: There is cerebral atrophy with widening of the extra-axial spaces and ventricular dilatation. There are areas of decreased attenuation within the white matter tracts of the supratentorial brain, consistent with microvascular disease changes. Again noted is a left anterior temporal and right occipital encephalomalacia and gliosis, consistent with prior insults. Again noted is the left thalamic hypodensity There is no intracranial hemorrhage. There are no findings of an acute ischemic infarction. Normal soft tissue structures. Normal visualized paranasal sinuses. CT/Brain/Head without Contrast IMPRESSION: Chronic involutional changes of the brain. Left temporal and right occipital chronic infarcts N.B. : The above information has been verbally conveyed by Charlie Schaefer MD to Kenny Mensah MD, , on 07/14/2019 10:44:58 (ET). Electronically Signed: Charlie Schaefer MD at 10:45 EST Tel , Service support ,
--- NOTE | 2019-07-14 10:36 | CT_ITS ---
STUDY: CTA HEAD AND NECK WITH CONTRAST REASON FOR EXAM: Female, 84 years old. STROKE, LEFT SIDE WEAKNESS, SLURRED SPEECH, DROOLING RADIATION DOSAGE (If Supplied By Facility): CTDIvol = ( ) mGy, DLP = ( ) mGycm TECHNIQUE: CT angiography was performed with a multi-detector CT scanner. Data acquisition was obtained from the skull base through the vertex following intravenous administration of IV 100mL [id number]-300. MIP images were reconstructed from the axial data set. Post-processing of the angiographic images was performed, with multiplanar reformation and 3D reconstruction. Individualized dose optimization techniques were used for this CT. COMPARISON: January 29, 2018 FINDINGS: Normal bilateral petrous carotid arteries. There is calcified plaque formation of the right cavernous carotid artery, without a cross-sectional luminal stenosis. There is calcified plaque formation of the left cavernous carotid artery, without a cross-sectional luminal stenosis. Normal right A1 segments of the anterior cerebral artery. Normal left A1 segments of the anterior cerebral artery. Normal intact anterior communicating artery (ACOM). Normal bilateral A2 segments of the anterior cerebral arteries. Normal right M1 segments of the middle cerebral arteries, with a normal M1 bifurcation. There is occlusion involving the inferior M2 division at the insula (sagittal image #85 series 601). Finding is new since the prior examination 2017. Normal left M1 and M2 segments of the middle cerebral arteries, with a normal M1 bifurcation. There is non-visualization of the right posterior communicating artery (PCOM). There is non-visualization of the left posterior communicating artery (PCOM). Normal basilar artery with a normal basilar bifurcation. The visualized bilateral superior cerebellar (SCA) arteries are normal. There is atherosclerosis of the bilateral vertebral arteries. Again noted is occlusion at the STOCK UNLOADER segment of the right vertebral artery. The left vertebral artery is atherosclerotic with occlusion at the P2/P3 segments. There is no demonstrated aneurysm of the [place]. There is no demonstrated abnormality of the visualized brain. AORTIC ARCH: Atherosclerotic plaque of the visualized aortic arch. RIGHT CAROTID ARTERIES: There is atherosclerotic tortuous retropharyngeal elongation of the right common carotid artery. There is mild atherosclerotic plaque formation with minimal narrowing of the right carotid bulb. Normal origin of the right internal carotid (ICA) artery without a hemodynamically significant stenosis. There is atherosclerotic tortuous elongation of the cervical portion of the right internal carotid artery. Normal origin of the right external carotid artery (ECA). LEFT CAROTID ARTERIES: There is atherosclerotic tortuous retropharyngeal elongation of the left common carotid artery. Normal left common carotid bulb. Normal origin of the left internal carotid (ICA) artery without a hemodynamically significant stenosis. There is atherosclerotic tortuous elongation of the cervical portion of the left internal carotid artery. Normal origin of the left external carotid artery (ECA). VERTEBRAL ARTERIES: There is enhancement within the bilateral vertebral arteries with a small left vertebral artery, and a dominant right vertebral artery. 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 N.B. : The above information has been verbally conveyed by Charlie Schaefer MD to Dr. Kenny Mensah; [phone], on 07/14/2019 11:18:51 (ET). Electronically Signed: Charlie Schaefer MD at 11:20 EST Tel , Service support ,
[2019-07-14 10:52] LABS: Absolute Lymphocyte Count 2.73 X10^3/uL (0.83-4.51); Absolute Neutrophil Count 9.1 X10^3/uL (2.0-7.7); Basophil# 0.07 X10^3/uL; Basophil% 0.6 % (0-1); Eosinophil# 0.02 X10^3/uL; Eosinophils% 0.2 % (0-5); Hematocrit 38.1 % (37-47); Hemoglobin 12.2 g/dL (12.0-15.0); Lymphocyte # 2.73 X10^3/ul (4.0); Lymphocyte % 21.5 % (19-41); Mean Corpuscular Hgb 29.3 pg (27.0-32.0); Mean Corpuscular Volume 91.6 fL (81-99); Mean Platelet Vol. 12.2 fl (6.2-12.0); Monocyte% 5.5 % (0-10); NRBC Flagged by Analyzer 0.2 % (0-5); Neutrophil # 9.06 X10^3/uL (2.7-7.7); Neutrophil % 71.4 % (47-70); Platelet Count 159 K/mm3 (150-450); RBC Distribution Width CV 16.2 % (11.6-14.6); Red Blood Count 4.16 M/mm3 (4.2-5.4); White Blood Count 12.7 K/mm3 (4.4-11.0)
[2019-07-14 11:00] LABS: Prothrombin Time (Protime)PT. 13.1 SECONDS (11.7-14.9)
[2019-07-14 11:01] LABS: Partial Thromboplast Time 28.9 Seconds (24.1-36.2)
--- NOTE | 2019-07-14 11:07 | ED.RN ---
family is still discussing with dr regarding tpa.
[2019-07-14 11:09] LABS: Anion Gap 5 (5-15); BUN 16 mg/dL (7-18); Calcium,Total 8.9 mg/dL (8.5-10.1); Chloride 100 mmol/L (98-107); Creatinine, Serum 3.17 mg/dL (0.55-1.02); EST Glomerular Filtration Rate 15 mL/min (>60); Est Glom Filt Rate - Afr Amer 18 mL/min (>60); Estimated Creatinine Clearance 20.19 ml/min; Glucose 157 mg/dL (74-106); Potassium 4.1 mmol/L (3.5-5.1); Sodium Level 138 mmol/L (136-145)
--- NOTE | 2019-07-14 11:15 | ED.RN ---
Betty, scrap charger speaking with dialysis center about port- decision made to leave the catheters in.
--- NOTE | 2019-07-14 11:20 | CM.ED ---
Addendum entered by Elo Saunders 07/14/19 11:31: Reviewed and approved COMMUNICATION CONSULTANT documentation. Hernando Saunders COMMUNICATION CONSULTANT, MARIAH Original Note: Social Work Response to Stroke Alert. Patient's daughter arrives at the ED while patient was at CT scan. Patient asking about who RN was talking to on the phone. This COMMUNICATION CONSULTANT student explaining that [facility] is affiliated with [facility] and patient and patient's daughter can telecommunicate to a neurologist at [facility] when patient arrives in the room. Active listening and support provided. Will follow up with patient and patient's daughter as needed. Cherry Damian COMMUNICATION CONSULTANT student
[2019-07-14] MEDS: 0.9% Normal Saline 1,000 ML 100 ML IV (11:23)
--- NOTE | 2019-07-14 11:42 | CM.ED ---
Addendum entered by Elo Saunders 07/14/19 12:23: Reviewed and approved social work student documentation. Hernando GONZALES, MARIAH Original Note: Social Work Patient being life flighted to [facility]. Following up with patient and patient's daughter in the room. Patient's daughter stating to have all questions answered by the nursing staff. Patient's daughter is aware of how to get to [facility]. Patient voicing no concerns at this time. Cherry Damian REGIONAL SALES EXECUTIVE student
--- NOTE | 2019-07-14 11:55 | ED.VISSUMM ---
- ER Visit Summary Date of Service: 07/14/19 Chief Complaint: [Stroke] History of Present Illness: The patient is a 84 F [presents the emergency department from dialysis center with concern for stroke. Patient was being dialyzed when she had a hypotensive episode and unresponsive episode that was short-lived. Patient's blood pressure apparently dropped into the 50s. EMS was called and there was suspicion that she may have some left-sided weakness and left facial droop and drooling of secretions. Patient with history of prior stroke. Patient herself has a hard time given the history as she is hard of hearing and has some speech difficulties from prior stroke. She denies a headache. She denies chest pain or shortness of breath. Patient has not had recent illness. Patient with history of hypertension, prior stroke, CHF, chronic renal failure. Per daughter patient had TPA for prior stroke in 2018. Presented with access of left upper arm fistula still in place.] Patient's symptoms started about 30 minutes prior to arrival in the emergency department. Physical Examination: [HEENT-PERRLA, EOMI. Cranial nerves II through XII grossly intact. TMs clear. Mucous membranes moist. No adenopathy. Left facial droop noted and drooling secretions. Cardiovascular-regular rate and rhythm without murmur or ectopy Lungs-clear to auscultation, chest wall stable without crepitus or subcu emphysema Abdomen-normoactive bowel sounds, soft, nontender, no rebound or rigidity, no peritoneal signs. Neuro exam-he has left-sided facial droop. Patient has slurred speech. Patient has some very subtle weakness of the left upper extremity compared to the right. Patient is still able to hold it for count of 10 however it does start to drift a little bit. I did give her an NIH stroke scale of 8 on arrival. Extremities-intact ?4, normal range of motion, normal pulses, atraumatic] Test Results: [CT scan of the brain without contrast showed nothing acute. CBC with differential obtained showed a white blood cell count of 12.7, hemoglobin 12.2, hematocrit 38, platelets 159. Chemistries unremarkable. B UN was 16 and creatinine 3.7. Troponin was less than 0.015. EKG obtained arrival showed a sinus rhythm with a ventricular rate of 79 bpm with a bifascicular block noted. CTA of the head and neck showed an M2 occlusion on the right.] Emergency Department Course and Treatment: [Stroke team alert was called on arrival with patient. Stroke neurologist on her evaluation of the patient gave the patient an NIH stroke scale of 3 and it seemed as though some of her symptoms were starting to improve. Patient is within the window for TPA and meets TPA criteria. Patient's power of commercial litigation attorney who is patient's daughter is present and she would like the patient to receive IV TPA. Patient understands risks versus benefits.] Treatment Plan: [Transfer to [facility]] Disposition: [Transfer] Impression: [Acute CVA] This note was generated with Saberr dictation software. It may contain incorrect words, spelling, and punctuation that were not noted in review of the chart prior to signing ED Disposition - Plan for ED Patient: Referrals: Wayne Leahy Chi, MD [Primary Care Provider] -
== END 2019-07-14 12:20 | disposition short-term general hospital (02) ==
PROVIDERS: Emergency Provider Emergency Medicine; PCP Family Medicine Geriatric Medicine
DX: I63.511 Cerebral infarction due to unspecified occlusion or stenosis of right middle cerebral artery (principal); G83.24 Monoplegia of upper limb affecting left nondominant side; R47.1 Dysarthria and anarthria; R29.810 Facial weakness; R29.708 NIHSS score 8; I13.2 Hypertensive heart and chronic kidney disease with heart failure and with stage 5 chronic kidney disease, or end stage renal disease; N18.6 End stage renal disease; I50.9 Heart failure, unspecified; Z99.2 Dependence on renal dialysis; J45.909 Unspecified asthma, uncomplicated; I69.328 Other speech and language deficits following cerebral infarction; Z79.82 Long term (current) use of aspirin; Z79.899 Other long term (current) drug therapy
CPT/HCPCS: 51702; 70450; 70496; 70498; 80048; 84484; 85025; 85610; 85730; 93005; 96361; 96374; 99285; J2997; J7030; Q9967; A4216; J3490

== ENCOUNTER → 2019-07-25 | Outpatient (CLI) | payer MEDICARE, SELFPAY | END | disposition home or self-care (01) | LOC: POLAB3 15:58 → LABSPEC 16:01 | PROVIDERS: PCP Family Medicine Geriatric Medicine; Visit Provider Family Medicine Geriatric Medicine | DX: N39.0 Urinary tract infection, site not specified (principal) | CPT/HCPCS: 87086; 87088 ==

== ENCOUNTER 2019-08-02 10:22 | Emergency (ER) | payer MEDICARE, MEDICAID, SELFPAY ==
[2019-08-02] VITALS (9 sets, daily range): BP systolic 133–155; BP diastolic 64–88; PULSE 72–79; RESP 16–24; TEMP 36.1; O2SAT 94–99; BMI 27.0
--- NOTE | 2019-08-02 10:23 | EKG12_ITS ---
Test Reason : STROKE TEAM Blood Pressure : / mmHG Vent. Rate : 074 BPM Atrial Rate : 074 BPM P-R Int : 154 ms QRS Dur : 132 ms QT Int : 428 ms P-R-T Axes : 044 -44 -16 degrees QTc Int : 475 ms Sinus rhythm with Premature supraventricular complexes Left axis deviation Right bundle branch block Abnormal ECG Confirmed by IVETT SALMON, RAPHAEL ([id number]), managing editor SESAR PELLETIER ([id number]) on 08/03/2019 1:07:05 PM Referred By: CHU Confirmed By:STACEY ROOT MD
--- NOTE | 2019-08-02 10:23 | CT_ITS ---
STUDY: CT BRAIN WITHOUT CONTRAST REASON FOR EXAM: Female, 84 years old. STROKE [place] RADIATION DOSAGE (If Supplied By Facility): CTDIvol = ( 44.99 ) mGy, DLP = ( 762.36 ) mGycm TECHNIQUE: Transaxial CT imaging of the brain was performed without administration of intravenous contrast material. Individualized dose optimization techniques were used for this CT. COMPARISON: Comparison is made with prior study dated July 14, 2019. FINDINGS: Normal soft tissue structures. Normal calvarium. There is mild cerebral atrophy with widening of the extra-axial spaces and ventricular dilatation. Stable focal area of decreased attenuation in the left temporal lobe. No significant mass effect is seen. There is also evidence of decreased attenuation in the medial aspect of the right occipital lobe. Stable decreased attenuation in the left thalamus. Normal brainstem. Normal cerebellum. There is no intracranial hemorrhage. There are no findings of an acute ischemic infarction. Atherosclerotic calcification of the cavernous portions of the internal carotid arteries bilaterally. Normal visualized paranasal sinuses. CT/Brain/Head without Contrast IMPRESSION: Chronic involutional changes of the brain. Stable changes involving the left temporal lobe as well as the right occipital lobe and left thalamus. Electronically Signed: Perfecto Brice, at 11:06 EDT , Service support ,
--- NOTE | 2019-08-02 10:23 | RAD_ITS ---
STUDY: X-RAY CHEST REASON FOR EXAM: Female, 84 years old. POSSIBLE STROKE TECHNIQUE: Single AP portable view of the chest. COMPARISON: Comparison is made with prior examination dated June 05, 2019. FINDINGS: The previously seen right double-lumen catheter has been removed. EKG electrodes are seen. A loop recording device is seen overlying the lower left hemithorax. Surgical clips are seen in the left axillary region. Mild increased markings at the lung bases suggestive of mild scarring. Stable 3 cm nodule in the right lower lobe. There is no demonstrated pleural abnormality. There is moderate cardiac enlargement. Normal mediastinum and chandrika. Normal visualized pulmonary arteries. There is atherosclerotic tortuosity of the aortic arch and descending thoracic aorta. Normal visualized thoracic spine. Normal visualized ribs, clavicles, and shoulders. There is no demonstrated abnormality of the visualized soft tissue structures of the upper abdomen. RAD/Chest 1 View IMPRESSION: Cardiomegaly. Mild increased markings at the lung bases suggests a possible scarring. Stable nodular density in the right lower lobe. Electronically Signed: Perfecto Brice, at 11:08 EDT , Service support ,
--- NOTE | 2019-08-02 10:32 | ED.VIS.STROK ---
History of Present Illness Chief Complaint: Neuro S/Sx Onset: Today Quality and Location: Left Facial Droop, Left Arm Weakness, Slurred Speech, Expressive Aphasia Narrative: Patient is an 84-year-old female with history of stroke and end-stage renal disease presenting from hemodialysis with stroke symptoms. Apparently patient had tenderness at the dialysis when she suddenly had an expressive aphasia, left arm weakness and a facial droop. Last known well was 0956. Stroke alert was called in route. Patient is on aspirin. She does have a history of prior stroke but not clear when it was in the past. Patient denies any headache, nausea or any other complaints at this time. Past Medical History - Allergies and Home Meds Allergies/Adverse Reactions: Allergies erythromycin base Allergy (Verified 08/02/19 10:43) Rash lisinopril Allergy (Verified 08/02/19 10:43) Unknown NSAIDS (Non-Steroidal Anti-Inflamma Allergy (Verified 08/02/19 10:43) Other Salicylates Allergy (Verified 08/02/19 10:43) Other PROTEIN IN URINE DRUG Allergy (Uncoded 08/02/19 10:43) Other Primary Care Physician: Wayne Leahy Chi, MD [Primary Care Provider] - Prior records reviewed: Yes Past Medical History: - - Hypertension, end-stage renal disease on hemodialysis, history of stroke congestive heart failure Surgical History: cataract, hysterectomy, - - Leg tumor removed, unclear. Foot surgery, neck surgery-type unknown Smoking Status: Never smoker - Family History Maternal Family History: Family History (Last Reviewed 04/30/19 @ 15:37 by Marcie Gardner) Mother Colon cancer Hypertension Father Hypertension Family History: Reports: Hypertension Paternal Family History: Family History (Last Reviewed 04/30/19 @ 15:37 by Marcie Gardner) Mother Colon cancer Hypertension Father Hypertension Family History: Reports: Hypertension Review of Systems General: Denies: Chills, Fever, Sweats Eyes: Denies: Visual changes - bilaterally, Diplopia ENT: Denies: Rhinorrhea, Sore throat Cardiovascular: Denies: Chest pain, Palpitations Respiratory: Denies: Dyspnea, Cough, Dyspnea on exertion Gastrointestinal: Denies: Abdominal pain, Nausea, Vomiting, Diarrhea, Melena, Hematochezia Genitourinary: Denies: Dysuria, Hematuria, Frequency Musculoskeletal: Denies: Back pain, Extremity Pain Skin: Denies: Rash, Wounds Neurological: Reports: Weakness - Left-sided arm, - - Speech difficulties. Denies: Headache STROKE Inital Vital Signs reviewed: Yes - NIHSS Initial 1a Level of Consciousness: 0 1b LOC Questions (Score 2 if aphasic/stupor): 0 1c LOC Commands (Only score 1st attempt): 0 2 Best Gaze (If aphasic, use reflexive mvmts.): 0 3 Visual: 0 4 Facial Palsy: 1 - right 5 Motor Arm Left: 0 6 Motor Leg Right: 0 6 Motor Leg Left: 0 7 Limb ataxia (Only + if out of proportion): 0 8 Sensory (Aphasia/stupor=0 or 1, coma=2): 0 9 Best Language: 0 10 Dysarthria (mute, coma=2, intubated=UN): 0 11 Extinction and Inattention (only scored if +): 0 Total Score: 1 2nd Follow up 1a Level of Consciousness: 0 1b LOC Questions (Score 2 if aphasic/stupor): 0 1c LOC Commands (Only score 1st attempt): 0 2 Best Gaze (If aphasic, use reflexive mvmts.): 0 3 Visual: 0 4 Facial Palsy: 0 5 Motor Arm Right (UN = amputation/fusion): 0 5 Motor Arm Left: 0 6 Motor Leg Right: 0 6 Motor Leg Left: 0 7 Limb ataxia (Only + if out of proportion): 0 8 Sensory (Aphasia/stupor=0 or 1, coma=2): 0 9 Best Language: 1 10 Dysarthria (mute, coma=2, intubated=UN): 0 11 Extinction and Inattention (only scored if +): 0 Total Score: 1 General: Well nourished, Well developed Head: Normocephalic, Atraumatic Eyes: Perrl, EOMI ENT: Moist mucous membranes, No rhinorrhea Neck: Supple, Nontender Cardiovascular: Regular rate, Regular rhythm, No murmurs Respiratory: No distress, CTA bilaterally, Chest nontender, - - Left upper extremity AV fistula Abdomen: Soft, Nontender, Nondistended, Normal bowel sounds Back: Nontender, Normal Inspection Extremities: Nontender, No edema Skin: Normal color, No rash, - - Dialysis needle still in place in her left upper extremity Neurological: Alert, Oriented x3, Cranial nerves II-XII grossly intact, Normal Strength, Normal Sensation Psychological: Normal affect Diagnostic/Tx/Re-eval Clinical Impression(s) from Imaging Studies Brain CT 08/02/19 10:23 IMPRESSION: Chronic involutional changes of the brain. Stable changes involving the left temporal lobe as well as the right occipital lobe and left thalamus. Electronically Signed: Perfecto Brice, at 11:06 EDT , Service support , Chest X-Ray 08/02/19 10:23 IMPRESSION: Cardiomegaly. Mild increased markings at the lung bases suggests a possible scarring. Stable nodular density in the right lower lobe. Electronically Signed: Perfecto Brice, at 11:08 EDT , Service support , Laboratory Data 08/02/19 08/02/19 08/02/19 10:58 10:58 10:58 WBC 8.0 RBC 3.97 L Hgb 11.8 L Hct 38.1 MCV 96.0 MCH 29.7 MCHC 31.0 L RDW Std Deviation 58.3 H RDW Coeff of Lizett 17.6 H Plt Count 184 MPV 12.2 H Immature Gran % (Auto) 0.600 Neut % (Auto) 62.7 Lymph % (Auto) 25.6 Coryell % (Auto) 9.6 Eos % (Auto) 0.5 Baso % (Auto) 1.0 Absolute Neuts (auto) 5.0 Absolute Lymphs (auto) 2.05 Nucleated RBC % 0.5 PT 14.0 INR 1.1 APTT 37.1 H Sodium 137 Potassium 4.4 Chloride 98 Carbon Dioxide 36.0 H Anion Gap 3 L BUN 16 Creatinine 3.33 H Estim Creat Clear Calc 11.98 Est GFR (MDRD) Af Amer 17 L Est GFR (MDRD) Non-Af 14 L BUN/Creatinine Ratio 4.8 L Glucose 70 L Calcium 8.8 Troponin I < 0.015 Chest X-Ray - ED: 1 View, Read by ED Physician, Read by Radiologist, No Acute Disease - Rhythm Strip Rhythm Strip: Sinus Rhythm Rate: 74 Ectopy: PVC(s) - EKG Initial EKG Interpretation: Sinus Rhythm, - - Sinus rhythm at a rate of 74 PVC present Normal intervals Left axis deviation Right bundle branch block Nonspecific T wave inversions Compared to prior EKGs patient has intermittent T wave inversion in aVF and V3 - Medical Decision Making Stroke Team Activated: Yes IV Alteplase (t-PA) Administered: No - TPA 2 weeks ago, acute stroke Patient is evaluated for acute onset of stroke symptoms. She arrives within an hour of her symptoms. Her symptoms do seem to be resolving by the time I evaluate her. My initial NIH is somewhat limited as a pre-arrival stroke alert is called and patient is being wheeled very quickly to CT imaging. Patient did have a stroke document on MRI 2 weeks ago and was treated at [facility]. After discussion with the tele-stroke doctor from [facility], we determined the patient is not a TPA candidate as she had an acute stroke 2 weeks ago. Patient is offered admission back to [facility] visits where she received her stroke care 2 weeks ago. Daughter states she would feel more comfortable with her going back to [facility] so transfer is arranged. Patient does have a repeat NIH of 1 for very slight dysarthria. She appears to be stable. Patient will require aspirin when she gets to [facility]. Patient is transferred in stable condition. ED Disposition - Plan for ED Patient: Disposition: [facility] Diagnosis: Dysarthria, Stroke-like symptoms Referrals: Wayne Leahy Chi, MD [Primary Care Provider] -
--- NOTE | 2019-08-02 10:38 | CM.ED ---
SOCIAL WORK REASON FOR REFERRAL: STROKE ALERT RESPONDED TO STROKE ALERT. NO FAMILY PRESENT AT THIS TIME. WILL REMAIN AVAILABLE FOR NEEDS. Venkat EL, [employer] TRUCK DRIVER, SOLAR PROJECT MANAGER.
[2019-08-02 11:14] LABS: Absolute Lymphocyte Count 2.05 X10^3/uL (0.83-4.51); Basophil# 0.08 X10^3/uL; Eosinophil# 0.04 X10^3/uL; Eosinophils% 0.5 % (0-5); Hematocrit 38.1 % (37-47); Hemoglobin 11.8 g/dL (12.0-15.0); Lymphocyte # 2.05 X10^3/ul (4.0); Lymphocyte % 25.6 % (19-41); Mean Corpuscular Hgb 29.7 pg (27.0-32.0); Mean Platelet Vol. 12.2 fl (6.2-12.0); Monocyte# 0.77 X10^3/uL; Monocyte% 9.6 % (0-10); NRBC Flagged by Analyzer 0.5 % (0-5); Neutrophil # 5.02 X10^3/uL (2.7-7.7); Neutrophil % 62.7 % (47-70); Platelet Count 184 K/mm3 (150-450); RBC Distribution Width CV 17.6 % (11.6-14.6); RBC Distribution Width SD 58.3 fl (35.1-43.9); Red Blood Count 3.97 M/mm3 (4.2-5.4)
[2019-08-02 11:27] LABS: Anion Gap 3 (5-15); BUN 16 mg/dL (7-18); BUN/Creat Ratio 4.8 RATIO (10-20); Calcium,Total 8.8 mg/dL (8.5-10.1); Chloride 98 mmol/L (98-107); Creatinine, Serum 3.33 mg/dL (0.55-1.02); EST Glomerular Filtration Rate 14 mL/min (>60); Est Glom Filt Rate - Afr Amer 17 mL/min (>60); Estimated Creatinine Clearance 11.98 ml/min; Glucose 70 mg/dL (74-106); Potassium 4.4 mmol/L (3.5-5.1); Sodium Level 137 mmol/L (136-145)
[2019-08-02 11:28] LABS: International Normalized Ratio 1.1; Partial Thromboplast Time 37.1 Seconds (24.1-36.2)
== END 2019-08-02 12:00 | disposition short-term general hospital (02) ==
PROVIDERS: Emergency Medicine; Emergency Provider Emergency Medicine; PCP Family Medicine Geriatric Medicine
DX: R47.1 Dysarthria and anarthria (principal); R47.01 Aphasia; R29.810 Facial weakness; R53.1 Weakness; I13.2 Hypertensive heart and chronic kidney disease with heart failure and with stage 5 chronic kidney disease, or end stage renal disease; N18.6 End stage renal disease; I50.9 Heart failure, unspecified; Z99.2 Dependence on renal dialysis; Z79.82 Long term (current) use of aspirin; Z79.899 Other long term (current) drug therapy; Z86.73 Personal history of transient ischemic attack (TIA), and cerebral infarction without residual deficits; Z88.8 Allergy status to other drugs, medicaments and biological substances; Z88.6 Allergy status to analgesic agent; Z88.1 Allergy status to other antibiotic agents; Z90.710 Acquired absence of both cervix and uterus
CPT/HCPCS: 70450; 71045; 80048; 84484; 85025; 85610; 85730; 93005; 99285; A4216

== ENCOUNTER 2019-10-26 12:26 | Observation (INO) | payer MEDICARE, MEDICAID, SELFPAY ==
[2019-09-19 09:41] VITALS: BMI 28.5
[2019-10-26] VITALS (16 sets, daily range): BP systolic 121–161; BP diastolic 65–75; PULSE 81–88; RESP 15–20; TEMP 36.3–36.8; O2SAT 92–99; BMI 24.7; BMI 25.4; BMI 28.4; BMI 28.5
--- NOTE | 2019-10-26 12:32 | EKG12_ITS ---
Test Reason : Blood Pressure : / mmHG Vent. Rate : 074 BPM Atrial Rate : 074 BPM P-R Int : 144 ms QRS Dur : 130 ms QT Int : 428 ms P-R-T Axes : 059 -50 -14 degrees QTc Int : 475 ms Normal sinus rhythm Right bundle branch block Left anterior fascicular block Bifascicular block Abnormal ECG Confirmed by ROHITH SALMON, JOSE ELIAS ([id number]), video effects editor SAMI PARRISH ([id number]) on 10/30/2019 10:31:14 AM Referred By: MARIA R Confirmed By:JOSE ELIAS NEWBERRY MD
--- NOTE | 2019-10-26 12:32 | CT_ITS ---
STUDY: CT BRAIN WITHOUT CONTRAST REASON FOR EXAM: Female, 84 years old. CVA, SLURRED SPEECH AT NH. H/O CVA R MCA 07/20/19 RECEIVED TPA. RADIATION DOSAGE (If Supplied By Facility): CTDIvol = ( 44.99 ) mGy, DLP = ( 779.24 ) mGycm TECHNIQUE: Transaxial CT imaging of the brain was performed without administration of intravenous contrast material. Individualized dose optimization techniques were used for this CT. COMPARISON: Comparison is made with prior examination dated August 02, 2019. FINDINGS: Normal soft tissue structures. Normal calvarium. There is mild cerebral atrophy with widening of the extra-axial spaces and ventricular dilatation. There are areas of decreased attenuation within the white matter tracts of the supratentorial brain, consistent with microvascular disease changes. Stable encephalomalacia in the left temporal lobe from prior infarction. Normal basal ganglia and thalami. Normal brainstem. Stable encephalomalacia in the posterior right cerebellar hemisphere in keeping with the prior infarction. There is no intracranial hemorrhage. There are no findings of an acute ischemic infarction. Atherosclerotic calcification of the vertebral arteries and cavernous portions of the internal carotid arteries bilaterally. Normal visualized paranasal sinuses. CT/Brain/Head without Contrast IMPRESSION: Chronic involutional changes of the brain. Stable changes in the left temporal lobe as well as in the medial aspect of the right cerebellar sphere. N.B. : The above information has been verbally conveyed by Perfecto Brice to Marry Lara on 10/26/2019 12:47:01 (ET). Electronically Signed: Perfecto Brice, at 12:50 EDT , Service support ,
--- NOTE | 2019-10-26 12:52 | ED.VISSUMM ---
- ER Visit Summary Date of Service: 10/26/19 Chief Complaint: Slurred speech History of Present Illness: The patient is a 84 F presenting with slurred speech and expressive aphasia. Per custodial she was seen normal at 915am. At some time between 915am and 11am she called her granddaughter and her speech was slurred. senior living checked on her at 11 AM and noticed she had slurred speech and expressive aphasia. On arrival to the ED her symptoms are almost resolved. Her NIH was 1. She has a history of previous stroke in June 2019 received TPA for right M2 occlusion and was transferred to [facility]. She is not on anticoagulants. Physical Examination: Vitals are stable. Patient is afebrile. Alert no acute distress. HEENT exam is unremarkable. Neck is supple. Lungs are clear and equal bilaterally. Heart is regular rate and rhythm. Abdomen is soft nontender nondistended. Extremities are unremarkable. Skin is warm and dry. No focal neurologic deficit. NIH 1 dysarthria Remainder of exam is unremarkable. Emergency Department Course and Treatment: EKG is sinus rhythm rate of 86 with no acute ischemic changes. On repeat evaluation 30 minutes after arrival to ED her NIH is 0. Noncontrast head CT shows chronic involutional changes of the brain. Stable changes in the left temporal lobe as well as in the medial aspect of the right cerebellar sphere. EKG is sinus rate of 86, right bundle branch block, unchanged from previous. CBC shows hemoglobin 11.7. Chemistries show BUN 32, creatinine 6.31. INR 1.0. Troponin 0.028. Patient is due for dialysis tomorrow. Patient was evaluated by [facility] tele neurology. Her symptoms have resolved. They recommend admission for TIA. Discussed with hospitalist for admission. Disposition: Admission Impression: TIA This note was generated with [employer] dictation software. It may contain incorrect words, spelling, and punctuation that were not noted in review of the chart prior to signing ED Disposition - Plan for ED Patient: Referrals: Wayne Leahy Chi, MD [Primary Care Provider] -
[2019-10-26 13:00] LABS: Absolute Lymphocyte Count 2.68 X10^3/uL (0.83-4.51); Absolute Neutrophil Count 3.2 X10^3/uL (2.0-7.7); Basophil# 0.07 X10^3/uL; Eosinophil# 0.27 X10^3/uL; Eosinophils% 3.9 % (0-5); Hematocrit 37.2 % (37-47); Hemoglobin 11.7 g/dL (12.0-15.0); Lymphocyte # 2.68 X10^3/ul (4.0); Lymphocyte % 38.8 % (19-41); Mean Corp Hgb Conc 31.5 g/dL (32-36); Mean Corpuscular Hgb 29.5 pg (27.0-32.0); Mean Corpuscular Volume 93.9 fL (81-99); Monocyte# 0.63 X10^3/uL; Monocyte% 9.1 % (0-10); NRBC Flagged by Analyzer 0 % (0-5); Neutrophil # 3.24 X10^3/uL (2.7-7.7); Neutrophil % 47.1 % (47-70); Platelet Count 151 K/mm3 (150-450); RBC Distribution Width CV 14.1 % (11.6-14.6); RBC Distribution Width SD 48.2 fl (35.1-43.9); Red Blood Count 3.96 M/mm3 (4.2-5.4); White Blood Count 6.9 K/mm3 (4.4-11.0)
[2019-10-26 13:06] LABS: Prothrombin Time (Protime)PT. 12.7 SECONDS (11.7-14.9)
[2019-10-26 13:07] LABS: Partial Thromboplast Time 33.8 Seconds (24.1-36.2)
[2019-10-26 13:15] LABS: Anion Gap 7 (5-15); BUN 32 mg/dL (7-18); BUN/Creat Ratio 5.1 RATIO (10-20); Calcium,Total 9.1 mg/dL (8.5-10.1); Chloride 98 mmol/L (98-107); Creatinine, Serum 6.31 mg/dL (0.55-1.02); EST Glomerular Filtration Rate 7 mL/min (>60); Est Glom Filt Rate - Afr Amer 8 mL/min (>60); Estimated Creatinine Clearance 6.57 ml/min; Glucose 78 mg/dL (74-106); Potassium 4.8 mmol/L (3.5-5.1); Sodium Level 138 mmol/L (136-145)
--- NOTE | 2019-10-26 13:20 | CM.ED ---
SOCIAL WORK STROKE ALERT DR. BERNAL RESPONDED TO STROKE ALERT. DAUGHTERBERNADETTE PRESENT WITH PATIENT. INTRODUCED ROLE AND REASON FOR REFERRAL. PATIENT IS FROM THE [facility] AND HAS BEEN AT FACILITY SINCE DECEMBER 2018. PATIENT AND DAUGHTER REPORT PATIENT WILL RETURN TO THE [facility] UPON DISCHARGE. DAUGHTER WILL TRANSPORT PATIENT BACK TO FACILITY. BERNADETTE MOORE'S CONTACT NUMBER [phone]. PLAN: ADMIT, RETURN TO THE [facility] Venkat EL MSW, PRESSURIZATION MECHANIC.
--- NOTE | 2019-10-26 13:24 | RAD_ITS ---
STUDY: X-RAY CHEST REASON FOR EXAM: Female, 84 years old. STROKE TECHNIQUE: Single AP portable view of the chest. COMPARISON: Comparison is made with prior study of August 02, 2019. FINDINGS: EKG is seen. A focal loop recording device is seen overlying the left side of the heart. Surgical clips are seen in the left axillary region. Hyperinflation. Stable increased markings at the lung bases suggestive of scarring slightly more prominent on the right side. There is no demonstrated pleural abnormality. There is mild cardiac enlargement. Normal mediastinum and chandrika. Normal visualized pulmonary arteries. There is atherosclerotic tortuosity of the aortic arch and descending thoracic aorta. There are diffuse degenerative changes of the visualized thoracic spine. Normal visualized ribs, clavicles, and shoulders. There is no demonstrated abnormality of the visualized soft tissue structures of the upper abdomen. RAD/Chest 1 View IMPRESSION: Cardiomegaly. Stable increased markings at the lung bases slightly more prominent on the right side most likely secondary to scarring. Electronically Signed: Perfecto Brice, at 13:56 EDT , Service support ,
--- NOTE | 2019-10-26 14:33 | NURSING ---
JASONU YANN OBS TIA
--- NOTE | 2019-10-26 14:47 | HP.PCM_ITS ---
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 The patient is a 84 year old F who presents emergency room due to slurred speech and expressive aphasia. Patient resides in nursing facility. Her symptoms were noticed by nursing staff late morning and patient was sent to the emergency room. Patient reports she had a stroke in June of this year with similar presenting symptoms however at that time she also had facial droop. Patient was transferred to [facility] June 2019 where she was found to have R M2 occlusion and small right MCA stroke where she received TPA. On exam, she continues to have difficulty finding her words. No other neurologic or focal deficits are present. Patient reports her right eye is reddened with slightly blurred vision however this was ongoing prior to her symptoms today. She denies eye drainage or irritation. She has a past medical history of diastolic CHF, chronic kidney disease stage V on hemodialysis, iron deficiency anemia/anemia of chronic disease, hypertension, history of CVA, hypothyroidism. Past Medical History Past Medical History (Chronic Problems): Chronic Problems (Last Reviewed 09/19/19 @ 11:[address] 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 Chronic diastolic (congestive) heart failure (Chronic) I50.32 Essential hypertension (Chronic) I10 Hyperlipidemia (Chronic) E78.5 End-stage renal disease (ESRD) (Chronic) N18.6 Iron deficiency anemia (Chronic) D50.9 Dementia (Chronic) F03.90 Anemia D64.9 Asthma J45.909 Chronic kidney disease (CKD) stage G5/A1, glomerular filtration rate (GFR) less than or equal to 15 mL/min/1.73 square meter and albuminuria creatinine ratio less than 30 mg/g N18.5 Glaucoma H40.9 Iron deficiency anemia D50.9 Obesity (BMI 30.0-34.9) E66.9 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 Acute respiratory failure with hypoxia J96.01 Cerebellar infarct I63.9 Cough (Resolved) R05 Elevated troponin I level (Resolved) R74.8 Metabolic acidosis E87.2 Problem with dialysis access (Resolved) T82.898A Respiratory failure with hypoxia (Resolved) J96.91 Shortness of breath (Resolved) R06.02 DUE TO DIASTOLIC CHF Chronic renal failure, stage 5 (Inactive) N18.5 RENAL FAILURE STAGE 6 (Inactive) NEW DIALYSIS PLACEMENT Allergies erythromycin base Allergy (Verified 10/26/19 13:02) Rash lisinopril Allergy (Verified 10/26/19 13:02) Unknown NSAIDS (Non-Steroidal Anti-Inflamma Allergy (Verified 10/26/19 13:02) Other Salicylates Allergy (Verified 10/26/19 13:02) Other PROTEIN IN URINE DRUG Allergy (Uncoded 10/26/19 13:02) Other Home Medications: Ambulatory Orders Medication Instructions Recorded Ergocalciferol [Vitamin D] 50,000 unit PO QMONTH 07/20/15 Aspirin E.C. [Ecotrin] 81 mg PO DAILY@0800 #30 tab 07/22/15 Timolol 0.5% [Timoptic] 1 drp EACH EYE BID 11/26/15 Atorvastatin Calcium [Lipitor] 40 mg PO QHS #30 tab 02/02/18 Docusate Sodium [Colace] 100 mg PO BID PRN PRN cap 01/16/19 Calcium Acetate 667 mg PO TIDCM 07/14/19 Hydroxyzine HCl 25 mg PO Q8H PRN PRN 07/14/19 levothyroxine 100 mcg tablet 100 mcg PO DAILY 07/31/19 Amlodipine [Norvasc] 5 mg PO SUMOWEFR 10/26/19 Budesonide/Formoterol 160/4.5 1 puff INHALATION BID 10/26/19 [Symbicort 160/4.5 Mcg Inhaler (SP)] Folic Acid/Vitamin B Comp W-C 1 cap PO DAILY 10/26/19 [Nephrocaps, Renaphro] Isosorbide Mononitrate [Imdur] 60 mg PO SUMOWEFR 10/26/19 Latanoprost 0.005% [Xalatan 1 drp RIGHT EYE QHS 10/26/19 Opthalmic] Surgical History: Surgical History (Last Reviewed 10/26/19 @ 14:52 by TOM Clay) History of loop recorder (Chronic) Onset Date: 07/20/19 Z98.890 s/p left AV fistula creation Onset Date: 02/19/19 Hx of cataract extraction Z98.49 Hx of foot surgery Z98.890 Hx of hysterectomy Z90.710 Hx of thyroidectomy Z98.890 HYPOTHYROIDISM Status post placement of implantable loop recorder (Resolved) Z95.818 Surgical History: cataract, hysterectomy, - - Leg tumor removed, unclear. Foot surgery, neck surgery-type unknown Psychiatric History: Attn. deficit disorder, - - Dementia, type unknown [employer] History: No pertinent [employer] history Lives: [facility] [address] Smoking Status: Never smoker Alcohol: None Drugs: None - *Family History Maternal Family History: Family History (Last Reviewed 10/26/19 @ 14:53 by TOM Clay) Mother Colon cancer Hypertension Father Hypertension History Items: Hypertension Paternal Family History: Family History (Last Reviewed 10/26/19 @ 14:53 by TOM Clay) Mother Colon cancer Hypertension Father Hypertension History Items: Hypertension Review of Systems Constitutional: Denies: Chills, Fever, Weight Change HEENT: Denies: Head Aches, Sinus Congestion, Sinus Drainage Cardiovascular: Denies: Chest Pain, Palpitations Respiratory: Denies: Cough, Shortness of breath at rest, Sputum production Gastrointestinal: Denies: Abdominal Pain, Nausea, Vomiting Genitourinary: Denies: Dysuria Musculoskeletal: Denies: Joint Pain, Joint Tenderness Skin: Denies: Rash, Wounds Neurological: Reports: Slurred speech. Denies: Focal weakness, Numbness, Tingling Psychiatric: Denies: Anxiety, Depression, Homicidal Ideations, Suicidal Ideations Hematologic/ Lymphatic: Denies: Easy Bruising, Easy Bleeding VTE Information - Inpt Only VTE Present on Admission: No VTE Mechan Device Prophylaxis: None VTE Pharm Prophylaxis ordered?: Yes - Physical Exam Vitals/I&O's: Vital Signs Temp Pulse Resp BP Pulse Ox 97.7 F L 81 19 H 161/72 H 98 10/26/19 13:51 10/26/19 14:30 10/26/19 14:30 10/26/19 14:30 10/26/19 14:30 Oxygen Delivery Method Room Air Weight: 162 lb 7.691 oz Body Mass Index (BMI) 25.4 Finger Stick Blood Glucose 78 General: Alert, Oriented x3, Cooperative HEENT: Atraumatic, PERRLA, EOMI, Normocephalic Neck: Supple, No JVD, Negative Carotid Bruits Lungs: Clear to auscultation, Normal air movement Cardiovascular: Regular rate, Regular Rhythm, Normal S1, Normal S2, No murmurs Abdomen: Bowel Sounds Present, Soft, Non Tender, Non-Distended Extremities: No clubbing, No cyanosis, No edema, Capillary Refill Less than 3 Seconds Skin: No rashes, No breakdown Musculoskeletal: No Tenderness to Palpation of Joints or Extremities Neurological: Cranial nerves II-XII grossly intact, Neuro grossly intact, - - Expressive aphasia Psych/Mental Status: Normal Affect, Appropriate Laboratory Results 10/26/19 12:40: WBC 6.9, RBC 3.96 L, Hgb 11.7 L, Hct 37.2, MCV 93.9, MCH 29.5, MCHC 31.5 L, RDW Std Deviation 48.2 H, RDW Coeff of [place] 14.1, Plt Count 151, MPV 12.0, Immature Gran % (Auto) 0.100, Neut % (Auto) 47.1, Lymph % (Auto) 38.8, [place] % (Auto) 9.1, Eos % (Auto) 3.9, Baso % (Auto) 1.0, Absolute Neuts (auto) 3.2, Absolute Lymphs (auto) 2.68, Nucleated RBC % 0 10/26/19 12:40: PT 12.7, INR 1.0, APTT 33.8 10/26/19 12:40: Sodium 138, Potassium 4.8, Chloride 98, Carbon Dioxide 33.0 H, Anion Gap 7, BUN 32 H, Creatinine 6.31 H, Estim Creat Clear Calc 6.57, Est GFR (MDRD) Af Amer 8 L, Est GFR (MDRD) Non-Af 7 L, BUN/Creatinine Ratio 5.1 L, Glucose 78, Calcium 9.1, Troponin I 0.028 Current Medications Labetalol HCl (Trandate) 20 mg IV X1 PRN PRN Reason: BLOOD PRESSURE Assessment/Plan All Active Problems (Last Reviewed 09/19/19 @ 11:[address] Chang Chandler MD) Cough (Resolved) Elevated troponin I level (Resolved) Problem with dialysis access (Resolved) Respiratory failure with hypoxia (Resolved) Shortness of breath (Resolved) Status post placement of implantable loop recorder (Resolved) Left ventricular diastolic dysfunction (Ruled-out) 1. 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 Brain CT on admission with chronic changes. Stable changes in the left temporal lobe as well as in the medial aspect of the right cerebellar sphere. Continue aspirin, statin. PT/OT/ST. Obtain MRI of brain, MRA of head and neck. Repeat echo. SOC consult pending further imaging. 2. Chronic diastolic CHF-stable. Echocardiogram 07/23/2019 demonstrated an EF of 50%. 3. 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 Patrick for dialysis. Tuesday, , Tuesday schedule. 4. Iron deficiency anemia/anemia of chronic disease-stable. 5. Hypertension-permissive given #1. 6. Hypothyroidism-continue home Synthroid regimen. DVT prophylaxis- heparin sc This patient was seen by Elaine Ramirez NP-C under the supervision of Dr. Patrick. <Melody Patrick - Last Filed: 10/26/19 18:51> History of Present Illness Agree with above after independent evaluation She has had at least 4-5 strokes now per her daughter present at the bedside and they have all been in the last 2 yrs she believes. this is the first time she has not required tPA. She currently has a Loop recorder in place that was placed at [facility] but has not been interpreted as of yet to her knowledge. Her initial NIH was 1 today and repeat was 0. Per her daughter at bedside, she states that her mother is back to her baseline. She has ESRD and is on HD. Her Respite Worker is Dr. Patrick and she gets HD on T/T/S. Past Medical History Medical History: Medical History (Last Reviewed 10/26/19 @ 18:[address] 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 Chronic diastolic (congestive) heart failure (Chronic) I50.32 Essential hypertension (Chronic) I10 Hyperlipidemia (Chronic) E78.5 End-stage renal disease (ESRD) (Chronic) N18.6 Iron deficiency anemia (Chronic) D50.9 Dementia (Chronic) F03.90 Anemia D64.9 Asthma J45.909 Chronic kidney disease (CKD) stage G5/A1, glomerular filtration rate (GFR) less than or equal to 15 mL/min/1.73 square meter and albuminuria creatinine ratio less than 30 mg/g N18.5 Glaucoma H40.9 Iron deficiency anemia D50.9 Obesity (BMI 30.0-34.9) E66.9 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 Acute respiratory failure with hypoxia J96.01 Cerebellar infarct I63.9 Cough (Resolved) R05 Elevated troponin I level (Resolved) R74.8 Metabolic acidosis E87.2 Problem with dialysis access (Resolved) T82.898A Respiratory failure with hypoxia (Resolved) J96.91 Shortness of breath (Resolved) R06.02 DUE TO DIASTOLIC CHF Chronic renal failure, stage 5 (Inactive) N18.5 RENAL FAILURE STAGE 6 (Inactive) NEW DIALYSIS PLACEMENT Allergies erythromycin base Allergy (Verified 10/26/19 13:02) Rash lisinopril Allergy (Verified 10/26/19 13:02) Unknown NSAIDS (Non-Steroidal Anti-Inflamma Allergy (Verified 10/26/19 13:02) Other Salicylates Allergy (Verified 10/26/19 13:02) Other PROTEIN IN URINE DRUG Allergy (Uncoded 10/26/19 13:02) Other Surgical History: Surgical History (Last Reviewed 10/26/19 @ 18:[address] Melody Patrick DO) History of loop recorder (Chronic) Onset Date: 07/20/19 Z98.890 s/p left AV fistula creation Onset Date: 02/19/19 Hx of cataract extraction Z98.49 Hx of foot surgery Z98.890 Hx of hysterectomy Z90.710 Hx of thyroidectomy Z98.890 HYPOTHYROIDISM Status post placement of implantable loop recorder (Resolved) Z95.818 Tobacco Use: Non-smoker - *Family History Maternal Family History: Family History (Last Reviewed 10/26/19 @ 18:[address] Melody Patrick DO) Mother Colon cancer Hypertension Father Hypertension Paternal Family History: Family History (Last Reviewed 10/26/19 @ 18:[address] Melody Patrick DO) Mother Colon cancer Hypertension Father Hypertension Review of Systems Eyes: Reports: Blurred vision, Redness. Denies: Double vision, Drainage HEENT: Reports: Difficulty Swallowing. Denies: Difficulty Hearing, Dysphasia, Eye Pain, Nasal bleeding, Nasal Congestion Cardiovascular: Denies: Claudication, Chest Pressure, Chest Tightness, Edema, Heaviness, Light Headedness, Orthopnea, Syncope Respiratory: Denies: Hemoptysis, Pleuritic Pain, Shortness of Breath, Shortness of breath upon exertion, Wheezing Gastrointestinal: Denies: Constipation, Diarrhea, Hematemesis, Hematochezia, Melena Genitourinary: Reports: Incontinence. Denies: Hesitancy, Retention Musculoskeletal: Denies: Joint stiffness, Joint swelling, Neck Pain Skin: Denies: Dryness, Jaundice, Lesions Neurological: Reports: Change in Speech, Confusion. Denies: Balance problems, Double vision Endocrine: Denies: Change in Body Habitus, Heat/ Cold Intolerance - Physical Exam Vitals/I&O's: Vital Signs Temp Pulse Resp BP Pulse Ox 98.2 F 81 18 139/66 H 95 10/26/19 16:47 10/26/19 16:47 10/26/19 16:47 10/26/19 16:47 10/26/19 16:47 Oxygen Delivery Method Room Air Weight: 70.6 kg Body Mass Index (BMI) 28.4 Finger Stick Blood Glucose 78 General: No apparent distress, Well developed, Well nourished, - - sitting up in bed with daugher at bedside Oral: Moist Mucosa, No Gingival or Mucosal Lesions/ Ulcerations, - - dentures in place Neck: Negative Hepatojugular Reflux, No Nodes, No Nuchal Rigidity, Trachea Midline, Thyroid Normal Size and Texture Lungs: No rhonchi, No wheeze, No rales Cardiovascular: No Ectopic Activity, No rub noted, No Gallop Abdomen: Obese, No hernias noted Extremities: No Calf Tenderness, - - fistula with a thrill L UE Musculoskeletal: No Muscle Wasting, Arthritic Changes Lymphatic: No Cervical, Supraclavicular, or Inguinal Adenopathy Neurological: Deep Tendon Reflexes 2+/4 and Symmetrical, Sensory exam intact to light touch and pain - generalized weakness but no focal deficits Laboratory Results 10/26/19 12:40: WBC 6.9, RBC 3.96 L, Hgb 11.7 L, Hct 37.2, MCV 93.9, MCH 29.5, MCHC 31.5 L, RDW Std Deviation 48.2 H, RDW Coeff of [place] 14.1, Plt Count 151, MPV 12.0, Immature Gran % (Auto) 0.100, Neut % (Auto) 47.1, Lymph % (Auto) 38.8, [place] % (Auto) 9.1, Eos % (Auto) 3.9, Baso % (Auto) 1.0, Absolute Neuts (auto) 3.2, Absolute Lymphs (auto) 2.68, Nucleated RBC % 0 10/26/19 12:40: PT 12.7, INR 1.0, APTT 33.8 10/26/19 12:40: Sodium 138, Potassium 4.8, Chloride 98, Carbon Dioxide 33.0 H, Anion Gap 7, BUN 32 H, Creatinine 6.31 H, Estim Creat Clear Calc 6.57, Est GFR (MDRD) Af Amer 8 L, Est GFR (MDRD) Non-Af 7 L, BUN/Creatinine Ratio 5.1 L, Glucose 78, Calcium 9.1, Troponin I 0.028 10/26/19 16:10: Magnesium 2.3, Troponin I 0.024, TSH 1.06 Current Medications Aspirin (Ecotrin) 81 mg PO DAILY@0800 [facility] Atorvastatin Calcium (Lipitor) 40 mg PO QHS [facility] Budesonide (Pulmicort Aerosol) 0.5 mg INHALATION BID.RT [facility] Calcium Acetate (Phoslo Gel Cap) 667 mg PO TIDCM [facility] Last Admin: 10/26/19 16:29 Dose: Not Given Documented by: Dextrose (D50w Syringe) 0 gm IV X1 PRN; Protocol PRN Reason: Hypoglycemia Docusate Sodium (Colace) 100 mg PO BID PRN PRN PRN Reason: Constipation Ergocalciferol (Vitamin D) 50,000 unit PO QMONTH@1000 [facility] Glucagon () 1 mg IM .X1 PRN PRN Reason: Hypoglycemia Heparin Sodium (Porcine) (Heparin Na) 5,000 unit SC Q12 [facility] Sodium Chloride () 500 mls @ 15 mls/hr IV PRN PRN PRN Reason: Blood Transfusion Sodium Chloride () 250 mls @ 15 mls/hr IV .[id number] PRN PRN Reason: Saline Flush Sodium Chloride () 250 mls @ 15 mls/hr IV .[id number] PRN PRN Reason: Additional IVPB Infusion Isosorbide Mononitrate (Imdur) 60 mg PO SuMoWeFr@1000 [facility] Latanoprost (Xalatan Opthalmic) 1 drop RIGHT EYE QHS [facility] Levothyroxine Sodium (Synthroid) 100 mcg PO DAILY@0600 [facility] Multivit/Ca Carb/B Cmplx/FA/Prenat (Nephrocaps, Renaphro) 1 capsule PO DAILY [facility] Sodium Chloride () 10 - 40 ml IV UD PRN PRN Reason: SALINE FLUSH Timolol Maleate (Timoptic) 1 drop EACH EYE BID [facility] Assessment/Plan Agree with the above with addendum below based on my independent history and examination TIA -? cardioembolic -need loop recorder evaluated and if neg for PAF ? 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
--- NOTE | 2019-10-26 15:21 | MRI_ITS ---
STUDY: MRA OF THE HEAD WITHOUT CONTRAST REASON FOR EXAM: Female, 84 years old. slurred speech, h/o prior stroke TECHNIQUE: 3-D [id number] (TOF) imaging was performed with MIPs. The study was performed unenhanced. COMPARISON: None. FINDINGS: Normal bilateral petrous carotid arteries. Normal right cavernous carotid artery with a normal supraclinoid bifurcation. Normal left cavernous carotid artery with a normal supraclinoid bifurcation. Normal right A1 segments of the anterior cerebral artery. Normal left A1 segments of the anterior cerebral artery. Normal intact anterior communicating artery (ACOM). Normal bilateral A2 segments of the anterior cerebral arteries. Normal right M1 and M2 segments of the middle cerebral arteries, with a normal M1 bifurcation. Normal left M1 and M2 segments of the middle cerebral arteries, with a normal M1 bifurcation. Normal right posterior communicating artery (PCOM). Normal left posterior communicating artery (PCOM). Nonvisualization of left vertebral artery consistent with a plasia or occlusion. Oormal basilar artery with a normal basilar bifurcation. The visualized bilateral superior cerebellar (SCA) arteries are normal. Normal bilateral P1, P2 and visualized P3 segments of the posterior cerebral arteries. There is no demonstrated aneurysm of the [place]. There is no major vessel occlusion or hemodynamically significant stenosis. There is no demonstrated abnormality of the visualized brain. MRI/MRA Head ONLY without Contrast IMPRESSION: Normal MRA of the head aplastic or occluded left vertebral artery. Electronically Signed: Steve Pelayo MD at 20:14 EDT Tel , Service support ,
--- NOTE | 2019-10-26 15:21 | ECHOD_ITS ---
Reason For Study: TIA/CVA Procedure This was a 2D Doppler, Color Flow transthoracic echocardiogram. Exam performed portable in patient room. Left Ventricle Normal LV size. Moderate concentric left ventricular hypertrophy. Sigmoid septum. Left ventricular systolic function is normal. The estimated ejection fraction is 65 %. Stage 1 diastolic dysfunction. No regional wall motion abnormalities noted. Right Ventricle Normal RV size. Normal systolic function. Atria Normal left atrium. Normal right atrium. Mitral Valve Normal mitral valve. Tricuspid Valve Normal tricuspid valve. Aortic Valve Trisinus/trileaflet aortic valve. Mild focal aortic valve calcification. Pulmonic Valve Normal pulmonic valve. Great Vessels Normal aortic root. The pulmonary artery is normal size. Inferior vena cava collapse with respiration. Pericardium/Pleural No pericardial effusion. MMode/2D Measurements & Calculations LVIDd: 4.4 cm IVSd: 1.6 cm Ao root diam: 3.2 cm LVIDs: 3.1 cm LVPWd: 1.6 cm LA dimension: 3.7 cm FS: 29.4 % LAV(MOD-bp): 67.0 ml LA A4 area: 20.6 cm2 RA A4 area: 17.5 cm2 LAV(MOD-bp) Indexed: 39.1 ml/m2 LAV(MOD-sp2): 65.0 ml LAV(MOD-sp4): 56.0 ml Time Measurements MV dec time: 0.24 sec Doppler Measurements & Calculations MV E max ghanshyam: 82.7 cm/sec Lat Peak E' Ghanshyam: 6.8 cm/sec Med Peak E' Ghanshyam: 5.4 cm/sec MV A max ghanshyam: 155.5 cm/sec E/E' lat: 12.2 E/E' med: 15.4 MV E/A: 0.53 MV V2 max: 196.5 cm/sec MV P1/2t max ghanshyam: 112.7 cm/sec Ao V2 max: 173.3 cm/sec MV max P.4 mmHg MV P1/2t: 61.6 msec Ao max P.0 mmHg MV V2 mean: 95.4 cm/sec MV dec slope: 535.9 cm/sec2 MV mean P.5 mmHg MVA(P1/2t): 3.6 cm2 MV V2 VTI: 37.8 cm LV V1 max: 147.3 cm/sec MR max ghanshyam: 617.3 cm/sec PA V2 max: 130.0 cm/sec LV V1 max P.7 mmHg MR max P.4 mmHg Interpretation Summary Normal LV size. Moderate concentric left ventricular hypertrophy. Left ventricular systolic function is normal. The estimated ejection fraction is 65 %. Stage 1 diastolic dysfunction. Mild focal aortic valve calcification. Ordering Physician: Elaine Ramirez Referring Physician: Wayne Leahy Chi Performed By: Mikal Hawk RCS
--- NOTE | 2019-10-26 15:21 | MRI_ITS ---
STUDY: MRA NECK WITHOUT CONTRAST REASON FOR EXAM: Female, 84 years old. slurred speech, h/o prior stroke TECHNIQUE: Source images were obtained, MIPs were performed. The study was performed unenhanced. COMPARISON: CTA 07/14/2019 FINDINGS: RIGHT CAROTID ARTERIES: Normal right common carotid artery (CCA). Normal right common carotid bulb. Normal origin of the right internal carotid (ICA) artery without a hemodynamically significant stenosis. Normal visualized cervical portion of the right internal carotid artery. Normal origin of the right external carotid artery (ECA). LEFT CAROTID ARTERIES: Normal left common carotid artery (CCA). Normal left common carotid bulb. Normal origin of the left internal carotid (ICA) artery without a hemodynamically significant stenosis. Normal visualized cervical portion of the left internal carotid artery. Normal origin of the left external carotid artery (ECA). VERTEBRAL ARTERIES: Normal right vertebral artery. Nonvisualization left vertebral artery consistent with occlusion. MRI/MRA Neck without Contrast IMPRESSION: 1. No carotid stenosis. 2. Normal right vertebral artery. 3. Occluded left vertebral artery. Electronically Signed: Steve Pelayo MD at 20:17 EDT Tel , Service support ,
--- NOTE | 2019-10-26 15:21 | MRI_ITS ---
STUDY: MRI BRAIN WITHOUT CONTRAST REASON FOR EXAM: Female, 84 years old. slurred speech, h/o prior stroke TECHNIQUE: Standardized multiplanar fat and water weighted pulse sequences were obtained. COMPARISON: 10/31/2018, CT earlier today FINDINGS: There is moderate cerebral atrophy with widening of the extra-axial spaces and ventricular dilatation. There are multiple white matter hyperintensities, distributed throughout the deep white matter tracts of the cerebral hemispheres, consistent with moderate chronic white matter ischemic changes. There is no evidence for recent intracranial ischemia or other cause of cytotoxic edema on diffusion weighted imaging (DWI). Normal T2* images of the brain without demonstrated susceptibility artifact. There is no demonstrated hemosiderin stain. Encephalomalacia and gliosis within the anterior left temporal lobe consistent with a chronic infarct. Normal bilateral basal ganglia. Normal thalami. There is no extra-axial fluid accumulation. Normal flow voids within the major intracranial circulation suggesting patency by spin echo criteria. Normal sella turcica, pituitary gland, infundibular stalk, optic chiasm and hypothalamus. Normal tectal plate and pineal gland. Normal midbrain, bree and medulla. Normal cerebellum. Normal basal cisterns. 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 Normal bilateral internal auditory canals. There are bilateral ocular lens implants with otherwise normal intraorbital contents. Normal visualized paranasal sinuses. Normal calvarium and skull base. Normal visualized soft tissue structures. Normal visualized upper cervical spine. MRI/Brain without Contrast IMPRESSION: Involutional changes of the brain, as described above. No acute infarct. Electronically Signed: Steve Pelayo MD at 20:12 EDT Tel , Service support ,
[2019-10-26 16:51] LABS: Magnesium 2.3 mg/dL (1.6-2.6); Thyroid Stim Hormone (TSH) 1.06 uIU/mL (0.358-3.74)
--- NOTE | 2019-10-26 17:09 | PN_ITS ---
Progress Note 84 y/o AAF with ESRD on HD TTS at [facility] admitted for TIA symptoms with slurred speech and expressive aphasia. She has a history of TIA s/p TPA in June. She is an ECF resident at [facility] with dementia. Poor historian at baseline. Dialysis will be arranged for tomorrow. Labs reviewed. Vitals stable. STROKE Vital Signs/Narrative: Vital Signs Temp Pulse Resp BP Pulse Ox 10/26/19 16:47 98.2 F 81 18 139/66 H 95 10/26/19 15:11 98.2 F 85 18 151/75 H 92 10/26/19 14:59 84 10/26/19 14:30 81 19 H 161/72 H 98 10/26/19 14:00 88 19 H 147/68 H 99 10/26/19 13:51 97.7 F L 88 19 H 147/68 H 99 10/26/19 13:30 87 17 121/74 H 97
[2019-10-26] MEDS: Budesonide Respules 0.5 MG/2 ML AMPUL.NEB. INHALATION (20:30)
[2019-10-26] MEDS: Latanoprost 0.005% 1 Bottle 1 DRP RIGHT EYE (21:47)
[2019-10-26] MEDS: Heparin Injection (Vial) 5,000 UNIT/ML VIAL 5000 UNIT SC (21:49)
[2019-10-26] MEDS: Timolol 0.5% 5ML OPTH.BTL 1 DRP EACH EYE (21:49)
[2019-10-27] VITALS (13 sets, daily range): BP systolic 126–184; BP diastolic 54–82; PULSE 69–85; RESP 16–18; TEMP 36.7–37.1; O2SAT 94–96; BMI 28.4
[2019-10-27] MEDS: Budesonide Respules 0.5 MG/2 ML AMPUL.NEB. INHALATION (06:54)
[2019-10-27 07:01] LABS: Cholesterol 116 mg/dL (200); High Density Lipoprotein 48 mg/dL; Triglycerides 57 mg/dL; Very Low Density Lipoprotein 11 mg/dL (5-40)
[2019-10-27] MEDS: Heparin Injection (Vial) 5,000 UNIT/ML VIAL 5000 UNIT SC ×2 (08:36→21:08)
[2019-10-27] MEDS: Timolol 0.5% 5ML OPTH.BTL 1 DRP EACH EYE ×2 (08:38→21:08)
--- NOTE | 2019-10-27 10:03 | CON.PCM_ITS ---
Consultation - Renal 10/27/19 PCP/ Referring MD: Requesting physician: [] Primary care physician: Dr. Wayne Leahy MD Reason for Consultation:: ESRD HD TTS - History of Present Illness History of Present Illness: The patient is a 84 year old F with ESRD on HD TTS at [facility] admitted for TIA symptoms with slurred speech and expressive aphasia. She has a history of CVA s/p TPA in June. She is an ECF resident at [facility] with dementia. Poor historian at baseline. Dialysis will be arranged for later today. Speech eval today. Patient with mild expressive dysphasia at baseline. CT head without acute findings. - Allergies Allergies: Allergies erythromycin base Allergy (Verified 10/26/19 13:02) Rash lisinopril Allergy (Verified 10/26/19 13:02) Unknown NSAIDS (Non-Steroidal Anti-Inflamma Allergy (Verified 10/26/19 13:02) Other Salicylates Allergy (Verified 10/26/19 13:02) Other PROTEIN IN URINE DRUG Allergy (Uncoded 10/26/19 13:02) Other - Current Medications Current Medications: Current Medications Aspirin (Ecotrin) 81 mg PO DAILY@0800 [facility] Atorvastatin Calcium (Lipitor) 40 mg PO QHS [facility] Last Admin: 10/26/19 21:49 Dose: Not Given Documented by: Budesonide (Pulmicort Aerosol) 0.5 mg INHALATION BID.RT [facility] Last Admin: 10/27/19 06:54 Dose: 0.5 mg Documented by: Calcium Acetate (Phoslo Gel Cap) 667 mg PO TIDCM [facility] Last Admin: 10/26/19 16:29 Dose: Not Given Documented by: Dextrose (D50w Syringe) 0 gm IV X1 PRN; Protocol PRN Reason: Hypoglycemia Docusate Sodium (Colace) 100 mg PO BID PRN PRN PRN Reason: Constipation Ergocalciferol (Vitamin D) 50,000 unit PO QMONTH@1000 [facility] Glucagon () 1 mg IM .X1 PRN PRN Reason: Hypoglycemia Heparin Sodium (Porcine) (Heparin Na) 5,000 unit SC Q12 [facility] Last Admin: 10/27/19 08:36 Dose: 5,000 unit Documented by: Sodium Chloride () 500 mls @ 15 mls/hr IV PRN PRN PRN Reason: Blood Transfusion Sodium Chloride () 250 mls @ 15 mls/hr IV .[id number] PRN PRN Reason: Saline Flush Sodium Chloride () 250 mls @ 15 mls/hr IV .[id number] PRN PRN Reason: Additional IVPB Infusion Isosorbide Mononitrate (Imdur) 60 mg PO SuMoWeFr@1000 [facility] Latanoprost (Xalatan Opthalmic) 1 drop RIGHT EYE QHS [facility] Last Admin: 10/26/19 21:47 Dose: 1 drop Documented by: Levothyroxine Sodium (Synthroid) 100 mcg PO DAILY@0600 [facility] Last Admin: 10/27/19 05:31 Dose: Not Given Documented by: Multivit/Ca Carb/B Cmplx/FA/Prenat (Nephrocaps, Renaphro) 1 capsule PO DAILY [facility] Sodium Chloride () 10 - 40 ml IV UD PRN PRN Reason: SALINE FLUSH Timolol Maleate (Timoptic) 1 drop EACH EYE BID [facility] Last Admin: 10/27/19 08:38 Dose: 1 drop Documented by: - Past Medical History Past Medical History (Chronic Problems): Chronic Problems (Last Reviewed 10/26/19 @ 18:[address] 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 Foot surgery, neck surgery-type unknown - Social History Smoking Status: Never smoker Alcohol: None Drugs: None - Family History Maternal Family History: Family History (Last Reviewed 10/26/19 @ 18:[address] Melody Patrick DO) Mother Colon cancer Hypertension Father Hypertension History Items: Hypertension Paternal Family History: Family History (Last Reviewed 10/26/19 @ 18:[address] Melody Patrick DO) Mother Colon cancer Hypertension Father Hypertension History Items: Hypertension Review of Systems Constitutional: Denies: Anorexia, Chills, Fever, Weakness Cardiovascular: Denies: Chest Pain Respiratory: Denies: Cough, Shortness of Breath Gastrointestinal: Denies: Nausea, Vomiting Neurological: Reports: Slurred speech - improved Unable to obtain accurate/complete ROS d/t: dementia - Physical Exam Vitals/I&O's: Vital Signs Temp Pulse Resp BP Pulse Ox 98.2 F 78 16 149/74 H 96 10/27/19 05:30 10/27/19 07:12 10/27/19 07:12 10/27/19 05:30 10/27/19 06:55 Oxygen Delivery Method Room Air Weight: 69.3 kg Body Mass Index (BMI) 28.4 Finger Stick Blood Glucose 78 Intake and Output for Last 24 Hours 10/25/19 10/26/19 10/27/19 23:59 23:59 23:59 Intake Total 0 / 0 0 / 0 Balance 0 / 0 0 / 0 General: Confused, Disoriented, - - dementia Oral: Moist Mucosa Lungs: Clear to auscultation Cardiovascular: Regular rate Abdomen: Bowel Sounds Present, Soft, Non Tender, Non-Distended Extremities: No edema Skin: No rashes Musculoskeletal: No Muscle Wasting Neurological: Neuro grossly intact, Motor Exam 5/5 strength throughout Psych/Mental Status: - - confused at baseline due to dementia Laboratory Results 10/26/19 12:40: WBC 6.9, RBC 3.96 L, Hgb 11.7 L, Hct 37.2, MCV 93.9, MCH 29.5, MCHC 31.5 L, RDW Std Deviation 48.2 H, RDW Coeff of Lizett 14.1, Plt Count 151, MPV 12.0, Immature Gran % (Auto) 0.100, Neut % (Auto) 47.1, Lymph % (Auto) 38.8, [place] % (Auto) 9.1, Eos % (Auto) 3.9, Baso % (Auto) 1.0, Absolute Neuts (auto) 3.2, Absolute Lymphs (auto) 2.68, Nucleated RBC % 0 10/26/19 12:40: PT 12.7, INR 1.0, APTT 33.8 10/26/19 12:40: Sodium 138, Potassium 4.8, Chloride 98, Carbon Dioxide 33.0 H, Anion Gap 7, BUN 32 H, Creatinine 6.31 H, Estim Creat Clear Calc 6.57, Est GFR (MDRD) Af Amer 8 L, Est GFR (MDRD) Non-Af 7 L, BUN/Creatinine Ratio 5.1 L, Glucose 78, Calcium 9.1, Troponin I 0.028 10/26/19 16:10: Magnesium 2.3, Troponin I 0.024, TSH 1.06 10/27/19 05:58: Triglycerides 57, Cholesterol 116, LDL Cholesterol 57, VLDL Cholesterol 11, HDL Cholesterol 48 Clinical Impression(s) from Imaging Studies Brain CT 10/26/19 12:32 IMPRESSION: Chronic involutional changes of the brain. Stable changes in the left temporal lobe as well as in the medial aspect of the right cerebellar sphere. N.B. : The above information has been verbally conveyed by Perfecto Brice to Marry Lara on 10/26/2019 12:47:01 (ET). Electronically Signed: Perfecto Brice, at 12:50 EDT , Service support , ADDENDUM: 10/26/19 1257 IMPRESSION: Chronic involutional changes of the brain. Stable changes in the left temporal lobe as well as in the medial aspect of the right cerebellar sphere. N.B. : The above information has been verbally conveyed by Perfecto Brice to Marry Lara on 10/26/2019 12:47:01 (ET). Electronically Signed: Perfecto Brice at 12:50 EDT , Service support , Chest X-Ray 10/26/19 13:24 IMPRESSION: Cardiomegaly. Stable increased markings at the lung bases slightly more prominent on the right side most likely secondary to scarring. Electronically Signed: Perfecto Brice at 13:56 EDT , Service support , Brain MRI 10/26/19 15:21 IMPRESSION: Involutional changes of the brain, as described above. No acute infarct. Electronically Signed: Steve Pelayo MD at 20:12 EDT Tel , Service support , Head MRA 10/26/19 15:21 IMPRESSION: Normal MRA of the head aplastic or occluded left vertebral artery. Electronically Signed: Steve Pelayo MD at 20:14 EDT Tel , Service support , Neck MRA 10/26/19 15:21 IMPRESSION: 1. No carotid stenosis. 2. Normal right vertebral artery. 3. Occluded left vertebral artery. Electronically Signed: Steve Pelayo MD at 20:17 EDT Tel , Service support , Current Medications Aspirin (Ecotrin) 81 mg PO DAILY@0800 [facility] Atorvastatin Calcium (Lipitor) 40 mg PO QHS [facility] Last Admin: 10/26/19 21:49 Dose: Not Given Documented by: Budesonide (Pulmicort Aerosol) 0.5 mg INHALATION BID.RT [facility] Last Admin: 10/27/19 06:54 Dose: 0.5 mg Documented by: Calcium Acetate (Phoslo Gel Cap) 667 mg PO TIDCM [facility] Last Admin: 10/26/19 16:29 Dose: Not Given Documented by: Dextrose (D50w Syringe) 0 gm IV X1 PRN; Protocol PRN Reason: Hypoglycemia Docusate Sodium (Colace) 100 mg PO BID PRN PRN PRN Reason: Constipation Ergocalciferol (Vitamin D) 50,000 unit PO QMONTH@1000 [facility] Glucagon () 1 mg IM .X1 PRN PRN Reason: Hypoglycemia Heparin Sodium (Porcine) (Heparin Na) 5,000 unit SC Q12 [facility] Last Admin: 10/27/19 08:36 Dose: 5,000 unit Documented by: Sodium Chloride () 500 mls @ 15 mls/hr IV PRN PRN PRN Reason: Blood Transfusion Sodium Chloride () 250 mls @ 15 mls/hr IV .[id number] PRN PRN Reason: Saline Flush Sodium Chloride () 250 mls @ 15 mls/hr IV .[id number] PRN PRN Reason: Additional IVPB Infusion Isosorbide Mononitrate (Imdur) 60 mg PO SuMoWeFr@1000 [facility] Latanoprost (Xalatan Opthalmic) 1 drop RIGHT EYE QHS [facility] Last Admin: 10/26/19 21:47 Dose: 1 drop Documented by: Levothyroxine Sodium (Synthroid) 100 mcg PO DAILY@0600 [facility] Last Admin: 10/27/19 05:31 Dose: Not Given Documented by: Multivit/Ca Carb/B Cmplx/FA/Prenat (Nephrocaps, Renaphro) 1 capsule PO DAILY [facility] Sodium Chloride () 10 - 40 ml IV UD PRN PRN Reason: SALINE FLUSH Timolol Maleate (Timoptic) 1 drop EACH EYE BID [facility] Last Admin: 10/27/19 08:38 Dose: 1 drop Documented by: Assessment/Plan All Active Problems (Last Reviewed 10/26/19 @ 18:[address] Melody Patrick, DO) TIA (transient ischemic attack) (Acute) Cough (Resolved) Elevated troponin I level (Resolved) Problem with dialysis access (Resolved) Respiratory failure with hypoxia (Resolved) Shortness of breath (Resolved) Status post placement of implantable loop recorder (Resolved) Left ventricular diastolic dysfunction (Ruled-out) 1. ESRD HD later this afternoon 2. HTN stable 3. Dementia 4. TIA per primary service
[2019-10-27] MEDS: Folic Acid/Vitamin B Comp W-C 1 Capsule 1 CAP PO (10:13)
[2019-10-27] MEDS: Aspirin E.C. 81 MG Tablet PO (10:13)
[2019-10-27] MEDS: Calcium Acetate 667 MG Capsule PO (10:15)
--- NOTE | 2019-10-27 11:01 | CASEMGMT ---
Addendum entered by Daisha Barney 10/27/19 11:26: SW spoke w/nurse Howell at [facility], precert not needed, COVID test not needed, pt can return when ready. Pt is on isolation at custodial already as pt is a dialysis pt. Her daughter had asked if she can transport, as per custodial, this will not impact pt being on isolation--as she is already on isolation--so daughter can transport pt. RN will let daughter know. Green sheet is on the chart in anticipation of weekend discharge. AMANDA Reddy Original Note: SHERYL called [facility] to inquire if pt will need a precert to return, and if pt will require a COVID test. SHERYL awaiting call back. AMANDA Reddy
--- NOTE | 2019-10-27 11:41 | CASEMGMT ---
PHQ-9 completed, pt scored a 2, no further intervention needed at this time. AMANDA Reddy
--- NOTE | 2019-10-27 12:16 | PCM.EXTCARCO ---
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 Current Visit: No (2) History of loop recorder Status: Chronic Current Visit: No (3) Chronic diastolic (congestive) heart failure Status: Chronic Current Visit: No (4) Right bundle branch block (RBBB) with left anterior fascicular block Status: Chronic Current Visit: No (5) Essential hypertension Status: Chronic Current Visit: No (6) Hyperlipidemia Status: Chronic Current Visit: No (7) End-stage renal disease (ESRD) Status: Chronic Current Visit: No (8) Iron deficiency anemia Status: Chronic Current Visit: No (9) Dementia Status: Chronic Current Visit: No - Allergies/Procedures Done in Hospital Allergies/Adverse Reactions: Allergies erythromycin base Allergy (Verified 10/26/19 13:02) Rash lisinopril Allergy (Verified 10/26/19 13:02) Unknown NSAIDS (Non-Steroidal Anti-Inflamma Allergy (Verified 10/26/19 13:02) Other Salicylates Allergy (Verified 10/26/19 13:02) Other PROTEIN IN URINE DRUG Allergy (Uncoded 10/26/19 13:02) Other Procedures: 2-D Echocardiogram - Type of Care/Length of Stay Estimated LOS: More Than 30 Days Type of Care Needed: Skilled Rehab Potential: Fair Prognosis: Fair - Additional Orders/Day of Discharge H&P will serve as current which was dated: 10/26/19 Day of Discharge: 10/27/19 - Dietary and Speech Recommendations Speech Linguistic Eval Summary: Pt familiar to this ST department as she was previously seen at hospital, home health, and [facility] for expressive language deficits following stroke. Pt oriented x4. Pt slightly hard of hearing and required repetition of question regarding current location. Pt initially responded where she came from ([address] [facility]) and then clarified [facility]. Memory: Pt able to recall 3/3 words with 5 minute delay. Expressive Language: Pt presents with bradyphrenia. Pt able to provide 8 animals in one minute with several word substitutions and assimilations noted; pt named 10/10 objects in room. Pt reports I can't put sentences together when asked to describe her deficits. Comprehension: pt able to follow 1 step commands but had difficulty with 2 and 3 step verbal directions. - Follow Up Care Primary Care Physician: Wayne Leahy Chi, MD [Primary Care Provider] - Please follow up with your Primary Care Physician in: 1 Week Please Follow Up With: Kianna Patrick DO When: As scheduled Please Follow Up With: Elkin Presley MD - Neurology When: 1-2 Weeks Please Follow Up With: Deborah Haider When: Loop recorder check, as scheduled 11/05/2019
--- NOTE | 2019-10-27 12:20 | DS.PCM_ITS ---
<Genny Perea - Last Filed: 10/27/19 13:34> Discharge Date and Diagnosis - Secondary Discharge Diagnosis Chronic Problems: Chronic Problems (Last Reviewed 10/26/19 @ 18:[address] 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 She was admitted and managed for TIA. CT of the brain was negative and MRI of the brain also showed no evidence of infarct or hemorrhage. MRA of the head and neck showed occluded left vertebral artery which was noted on previous CTA done in June 2019 when she was admitted for similar events. 2D echo done showed EF of 65% with stage I diastolic dysfunction. Patient slurred speech improved markedly. She remained stable. Patient of note has a loop recorder in place due to recurrent TIAs. She is to have the loop recorder checked on 11/05/2019 as scheduled. 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 [facility]27 is to follow-up with her primary care doctor and cardiology. Patient seen and examined prior to discharge. She is a very pleasant 84-year-old female and had no complaints. She was lying comfortably in bed and said her slurred speech was much better. Review of systems otherwise negative. Labs and. Home medication reviewed and reconciled. O/e: Vital Signs Temp Pulse Resp BP Pulse Ox 98.7 F 75 16 152/68 H 95 10/27/19 11:54 10/27/19 11:54 10/27/19 11:54 10/27/19 11:54 10/27/19 11:54 General: Alert, Oriented x3, Cooperative HEENT: Atraumatic, PERRLA, EOMI, Normocephalic Neck: Supple, No JVD, Negative Carotid Bruits Lungs: Clear to auscultation, Normal air movement Cardiovascular: Regular rate, Regular Rhythm, Normal S1, Normal S2, No murmurs Abdomen: Bowel Sounds Present, Soft, Non Tender, Non-Distended Extremities: No clubbing, No cyanosis, No edema, Capillary Refill Less than 3 Seconds Skin: No rashes, No breakdown Musculoskeletal: No Tenderness to Palpation of Joints or Extremities Neurological: Cranial nerves II-XII grossly intact, Neuro grossly intact, - - minimal Expressive aphasia Psych/Mental Status: Normal Affect, Appropriate Plan is for discharge home today. She is to continue her aspirin and statin. She should follow-up with her primary care doctor within 1 to 2 weeks. Patient may need to be referred to neurologist on outpatient basis by her primary care doctor. Rest as per Elaine Barber note, which I have reviewed and endorsed. - Physical Exam Vitals/I&O's: Vital Signs Temp Pulse Resp BP Pulse Ox 98.7 F 75 16 152/68 H 95 10/27/19 11:54 10/27/19 11:54 10/27/19 11:54 10/27/19 11:54 10/27/19 11:54 Oxygen Delivery Method Room Air Weight: 152 lb 12.485 oz Body Mass Index (BMI) 28.4 Finger Stick Blood Glucose 78 Intake and Output for Last 24 Hours 10/25/19 10/26/19 10/27/19 23:59 23:59 23:59 Intake Total 0 / 0 240 / 240 Balance 0 / 0 240 / 240 Laboratory Results 10/26/19 16:10: Magnesium 2.3, Troponin I 0.024, TSH 1.06 10/27/19 05:58: Triglycerides 57, Cholesterol 116, LDL Cholesterol 57, VLDL Cholesterol 11, HDL Cholesterol 48 Current Medications Aspirin (Ecotrin) 81 mg PO DAILY@0800 [facility] Last Admin: 10/27/19 10:13 Dose: 81 mg Documented by: Atorvastatin Calcium (Lipitor) 40 mg PO QHS [facility] Last Admin: 10/26/19 21:49 Dose: Not Given Documented by: Budesonide (Pulmicort Aerosol) 0.5 mg INHALATION BID.RT [facility] Last Admin: 10/27/19 06:54 Dose: 0.5 mg Documented by: Calcium Acetate (Phoslo Gel Cap) 667 mg PO TIDCM [facility] Last Admin: 10/27/19 10:15 Dose: 667 mg Documented by: Dextrose (D50w Syringe) 0 gm IV X1 PRN; Protocol PRN Reason: Hypoglycemia Docusate Sodium (Colace) 100 mg PO BID PRN PRN PRN Reason: Constipation Ergocalciferol (Vitamin D) 50,000 unit PO QMONTH@1000 [facility] Glucagon () 1 mg IM .X1 PRN PRN Reason: Hypoglycemia Heparin Sodium (Porcine) (Heparin Na) 5,000 unit SC Q12 [facility] Last Admin: 10/27/19 08:36 Dose: 5,000 unit Documented by: Sodium Chloride () 500 mls @ 15 mls/hr IV PRN PRN PRN Reason: Blood Transfusion Sodium Chloride () 250 mls @ 15 mls/hr IV .[id number] PRN PRN Reason: Saline Flush Sodium Chloride () 250 mls @ 15 mls/hr IV .[id number] PRN PRN Reason: Additional IVPB Infusion Isosorbide Mononitrate (Imdur) 60 mg PO SuMoWeFr@1000 [facility] Latanoprost (Xalatan Opthalmic) 1 drop RIGHT EYE QHS [facility] Last Admin: 10/26/19 21:47 Dose: 1 drop Documented by: Levothyroxine Sodium (Synthroid) 100 mcg PO DAILY@0600 [facility] Last Admin: 10/27/19 05:31 Dose: Not Given Documented by: Multivit/Ca Carb/B Cmplx/FA/Prenat (Nephrocaps, Renaphro) 1 capsule PO DAILY [facility] Last Admin: 10/27/19 10:13 Dose: 1 capsule Documented by: Sodium Chloride () 10 - 40 ml IV UD PRN PRN Reason: SALINE FLUSH Timolol Maleate (Timoptic) 1 drop EACH EYE BID [facility] Last Admin: 10/27/19 08:38 Dose: 1 drop Documented by: Discharge Diet: Low fat/ Low Cholesterol Home Medications: Medications to take at Discharge Ergocalciferol [Vitamin D] 50,000 unit PO QMONTH 07/20/15 Aspirin E.C. [Ecotrin] 81 mg PO DAILY@0800 #30 tab 07/22/15 Timolol 0.5% [Timoptic] 1 drp EACH EYE BID 11/26/15 Atorvastatin Calcium [Lipitor] 40 mg PO QHS #30 tab 02/02/18 Docusate Sodium [Colace] 100 mg PO BID PRN PRN cap 01/16/19 Calcium Acetate 667 mg PO TIDCM 07/14/19 Hydroxyzine HCl 25 mg PO Q8H PRN PRN 07/14/19 levothyroxine 100 mcg tablet 100 mcg PO DAILY 07/31/19 Amlodipine [Norvasc] 5 mg PO SUMOWEFR 10/26/19 Budesonide/Formoterol 160/4.5 [Symbicort 160/4.5 Mcg Inhaler (SP)] 1 puff INHALA TION BID 10/26/19 Folic Acid/Vitamin B Comp W-C [Nephrocaps, Renaphro] 1 cap PO DAILY 10/26/19 Isosorbide Mononitrate [Imdur] 60 mg PO SUMOWEFR 10/26/19 Latanoprost 0.005% [Xalatan Opthalmic] 1 drp RIGHT EYE QHS 10/26/19 Clopidogrel Bisulfate [Plavix] 75 mg PO DAILY 21 Days tab 10/27/19 Primary Care Physician: Wayne Leahy Chi, MD [Primary Care Provider] - OBSV E&M: [id number] Observation care discharge <Elaine Ramirez - Last Filed: 10/27/19 14:27> Discharge Date and Diagnosis Date of Admission: 10/26/19 Date of Discharge: 10/27/19 - Primary Discharge Diagnosis Acute Problems: Active Problems (Last Reviewed 10/26/19 @ 18:[address] Melody Patrick DO) 1. TIA- history of CVA (06/2019) 2. Chronic diastolic CHF 3. 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 Iron deficiency anemia/anemia of chronic disease 5. Hypertension 6. Hypothyroidism 7. Dementia, per history - Secondary Discharge Diagnosis Chronic Problems: Chronic Problems (Last Reviewed 10/26/19 @ 18:[address] 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 Stable changes in the left temporal lobe as well as in the medial aspect of the right cerebellar sphere. N.B. : The above information has been verbally conveyed by Perfecto Brice to [facility] on 10/26/2019 12:47:01 (ET). Electronically Signed: Perfecto Brice, at 12:50 EDT , Service support , ADDENDUM: 10/26/19 1257 IMPRESSION: Chronic involutional changes of the brain. Stable changes in the left temporal lobe as well as in the medial aspect of the right cerebellar sphere. N.B. : The above information has been verbally conveyed by Perfecto Brice to [facility] on 10/26/2019 12:47:01 (ET). Electronically Signed: Perfecto Brice, at 12:50 EDT , Service support , Chest X-Ray 10/26/19 13:24 IMPRESSION: Cardiomegaly. Stable increased markings at the lung bases slightly more prominent on the right side most likely secondary to scarring. Electronically Signed: Perfecto Brice at 13:56 EDT , Service support , Brain MRI 10/26/19 15:21 IMPRESSION: Involutional changes of the brain, as described above. No acute infarct. Electronically Signed: Steve Pelayo MD at 20:12 EDT Tel , Service support , Head MRA 10/26/19 15:21 IMPRESSION: Normal MRA of the head aplastic or occluded left vertebral artery. Electronically Signed: Steve Pelayo MD at 20:14 EDT Tel , Service support , Neck MRA 10/26/19 15:21 IMPRESSION: 1. No carotid stenosis. 2. Normal right vertebral artery. 3. Occluded left vertebral artery. Electronically Signed: Steve Pelayo MD at 20:17 EDT Tel , Service support , SOC Neurology Operations: None Procedures: 2-D Echocardiogram Summary of Care Provided: The patient is a 84 year old F admitted 10/26/2019 due to slurred speech and expressive aphasia. 1. 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 Brain CT on admission with chronic changes. Stable changes in the left temporal lobe as well as in the medial aspect of the right cerebellar sphere. Continue aspirin, statin. PT/OT/ST. MRI of brain shows no acute infarct. 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 Echocardiogram demonstrates an EF of 65%, stage I diastolic dysfunction. Patient has loop recorder in place due to recurrent TIA/CVA. Unable to have device interrogated over the weekend. She has upcoming loop recorder check 11/05/2019. If atrial fibrillation is noted, patient will need to be placed on anticoagulation. SOC neurology consult obtained who recommended addition of Plavix for 3 weeks then resume monotherapy with aspirin only. Referred to neurology, Dr. Presley. Neurology also recommended EEG which can be completed as an outpatient to rule out underlying seizure given recurrent TIA. 2. Chronic diastolic CHF-stable. Echocardiogram 07/23/2019 demonstrated an EF of 50%. 3. 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 Patrick for dialysis. Tuesday, , Tuesday schedule. 4. Iron deficiency anemia/anemia of chronic disease-stable. 5. Hypertension-stable, continue home amlodipine, isosorbide regimen. 6. Hypothyroidism-continue home Synthroid regimen. General: Alert, Oriented x3, Cooperative HEENT: Atraumatic, PERRLA, EOMI, Normocephalic Neck: Supple, No JVD, Negative Carotid Bruits Lungs: Clear to auscultation, Normal air movement Cardiovascular: Regular rate, Regular Rhythm, Normal S1, Normal S2, No murmurs Abdomen: Bowel Sounds Present, Soft, Non Tender, Non-Distended Extremities: No clubbing, No cyanosis, No edema, Capillary Refill Less than 3 Seconds Skin: No rashes, No breakdown Musculoskeletal: No Tenderness to Palpation of Joints or Extremities Neurological: Cranial nerves II-XII grossly intact, Neuro grossly intact, - - Expressive aphasia, mild Psych/Mental Status: Normal Affect, Appropriate Patient seen and examined prior to discharge. Physical assessment as noted above. Patient is stable for discharge with follow up recommendations as noted above. This patient was seen by TOM Clay under the supervision of Dr. Perea. - Physical Exam Vitals/I&O's: Vital Signs Temp Pulse Resp BP Pulse Ox 98.7 F 75 16 152/68 H 95 10/27/19 11:54 10/27/19 11:54 10/27/19 11:54 10/27/19 11:54 10/27/19 11:54 Oxygen Delivery Method Room Air Weight: 152 lb 12.485 oz Body Mass Index (BMI) 28.4 Finger Stick Blood Glucose 78 Intake and Output for Last 24 Hours 10/25/19 10/26/19 10/27/19 23:59 23:59 23:59 Intake Total 0 / 0 240 / 240 Balance 0 / 0 240 / 240 Laboratory Results 10/26/19 12:40: WBC 6.9, RBC 3.96 L, Hgb 11.7 L, Hct 37.2, MCV 93.9, MCH 29.5, MCHC 31.5 L, RDW Std Deviation 48.2 H, RDW Coeff of Lizett 14.1, Plt Count 151, MPV 12.0, Immature Gran % (Auto) 0.100, Neut % (Auto) 47.1, Lymph % (Auto) 38.8, Ripley % (Auto) 9.1, Eos % (Auto) 3.9, Baso % (Auto) 1.0, Absolute Neuts (auto) 3.2, Absolute Lymphs (auto) 2.68, Nucleated RBC % 0 10/26/19 12:40: PT 12.7, INR 1.0, APTT 33.8 10/26/19 12:40: Sodium 138, Potassium 4.8, Chloride 98, Carbon Dioxide 33.0 H, Anion Gap 7, BUN 32 H, Creatinine 6.31 H, Estim Creat Clear Calc 6.57, Est GFR (MDRD) Af Amer 8 L, Est GFR (MDRD) Non-Af 7 L, BUN/Creatinine Ratio 5.1 L, Glucose 78, Calcium 9.1, Troponin I 0.028 10/26/19 16:10: Magnesium 2.3, Troponin I 0.024, TSH 1.06 10/27/19 05:58: Triglycerides 57, Cholesterol 116, LDL Cholesterol 57, VLDL Cholesterol 11, HDL Cholesterol 48 Current Medications Aspirin (Ecotrin) 81 mg PO DAILY@0800 [facility] Last Admin: 10/27/19 10:13 Dose: 81 mg Documented by: Atorvastatin Calcium (Lipitor) 40 mg PO QHS [facility] Last Admin: 10/26/19 21:49 Dose: Not Given Documented by: Budesonide (Pulmicort Aerosol) 0.5 mg INHALATION BID.RT [facility] Last Admin: 10/27/19 06:54 Dose: 0.5 mg Documented by: Calcium Acetate (Phoslo Gel Cap) 667 mg PO TIDCM [facility] Last Admin: 10/27/19 10:15 Dose: 667 mg Documented by: Dextrose (D50w Syringe) 0 gm IV X1 PRN; Protocol PRN Reason: Hypoglycemia Docusate Sodium (Colace) 100 mg PO BID PRN PRN PRN Reason: Constipation Ergocalciferol (Vitamin D) 50,000 unit PO QMONTH@1000 [facility] Glucagon () 1 mg IM .X1 PRN PRN Reason: Hypoglycemia Heparin Sodium (Porcine) (Heparin Na) 5,000 unit SC Q12 [facility] Last Admin: 10/27/19 08:36 Dose: 5,000 unit Documented by: Sodium Chloride () 500 mls @ 15 mls/hr IV PRN PRN PRN Reason: Blood Transfusion Sodium Chloride () 250 mls @ 15 mls/hr IV .[id number] PRN PRN Reason: Saline Flush Sodium Chloride () 250 mls @ 15 mls/hr IV .[id number] PRN PRN Reason: Additional IVPB Infusion Isosorbide Mononitrate (Imdur) 60 mg PO SuMoWeFr@1000 [facility] Latanoprost (Xalatan Opthalmic) 1 drop RIGHT EYE QHS [facility] Last Admin: 10/26/19 21:47 Dose: 1 drop Documented by: Levothyroxine Sodium (Synthroid) 100 mcg PO DAILY@0600 [facility] Last Admin: 10/27/19 05:31 Dose: Not Given Documented by: Multivit/Ca Carb/B Cmplx/FA/Prenat (Nephrocaps, Renaphro) 1 capsule PO DAILY [facility] Last Admin: 10/27/19 10:13 Dose: 1 capsule Documented by: Sodium Chloride () 10 - 40 ml IV UD PRN PRN Reason: SALINE FLUSH Timolol Maleate (Timoptic) 1 drop EACH EYE BID [facility] Last Admin: 10/27/19 08:38 Dose: 1 drop Documented by: Please follow up with your Primary Care Physician in: 1 Week Please Follow Up With: Kianna Patrick DO When: As scheduled Please Follow Up With: Elkin Presley MD - Neurology When: 1-2 Weeks Please Follow Up With: Deborah Haider When: Loop recorder check, as scheduled 11/05/2019 Disposition: Long Term facility Minutes spent on discharge:: 35 Patient Condition:: Stable Medical Necessity - Tobacco Use Smoking Status: Never smoker Tobacco Use: Non-smoker Meaningful Use Info Meaningful Use Diagnoses (Choose all that apply): None applicable
--- NOTE | 2019-10-27 14:39 | NURSING ---
nurse to nurse report called to Lynda @ [facility]. Dialysis to end @ 1650, daughter to picking tech @ 1800.
--- NOTE | 2019-10-27 17:16 | DIALYSIS ---
Pt completed 3 hours and 15 minutes hemodialysis via left apper arm AV graft with 1 liter fluid removed. Hemostasis obtained after needles removed. Pt tolerated treatment without difficulty.
--- NOTE | 2019-10-27 17:55 | NURSING ---
PATIENT RELATIONS COORDINATOR called this RN into room and states that she was getting patient dressed for discharge. PATIENT RELATIONS COORDINATOR reports that patient rolled her eyes back and started drooling and now appears more lethargic and disoriented. Elaine Ramirez NP notified. Orders to cancel discharge and to order EEG for 6/. Family updated.
--- NOTE | 2019-10-27 18:45 | NURSING ---
updated the [address] that patient is not coming back tonight, spoke with yanni
[2019-10-27] MEDS: Latanoprost 0.005% 1 Bottle 1 DRP RIGHT EYE (21:09)
[2019-10-27] MEDS: Atorvastatin Calcium 40 MG Tablet PO (21:10)
[2019-10-28] VITALS (11 sets, daily range): BP systolic 116–158; BP diastolic 47–70; PULSE 74–88; RESP 16–20; TEMP 36.7–37.1; O2SAT 94–97; BMI 28.4
[2019-10-28] MEDS: Levothyroxine 100 MCG Tablet PO (05:28)
[2019-10-28] MEDS: Budesonide Respules 0.5 MG/2 ML AMPUL.NEB. INHALATION ×2 (06:40→20:31)
--- NOTE | 2019-10-28 07:29 | EKG12_ITS ---
Test Reason : Blood Pressure : / mmHG Vent. Rate : 086 BPM Atrial Rate : 086 BPM P-R Int : 134 ms QRS Dur : 124 ms QT Int : 402 ms P-R-T Axes : 054 -53 -18 degrees QTc Int : 481 ms Normal sinus rhythm Right bundle branch block Left anterior fascicular block Bifascicular block Abnormal ECG Confirmed by ROHITH SALMON, JOSE ELIAS ([id number]), editor managing director RICHIE PARK ([id number]) on 10/29/2019 1:26:23 PM Referred By: [facility] Confirmed By:JOSE ELIAS NEWBERRY MD
--- NOTE | 2019-10-28 08:14 | PCM.PROGNOTE ---
<Elaine Ramirez - Last Filed: 10/28/19 08:19> Subjective: Progress note 10/27/2019. Patient plan was for discharge home following dialysis however notified by nursing at 6 PM that while getting patient dressed for discharge, patient had episode where her eyes rolled back in her head, she was noted to be drooling and per nursing appeared postictal. Discharge was canceled and will proceed with inpatient EEG. - Physical Exam Vitals/I&O's: Vital Signs Temp Pulse Resp BP Pulse Ox 98.7 F 77 16 148/67 H 97 10/28/19 05:26 10/28/19 06:48 10/28/19 06:40 10/28/19 05:26 10/28/19 06:40 Oxygen Delivery Method Room Air Weight: 153 lb 3.54 oz Body Mass Index (BMI) 28.4 Finger Stick Blood Glucose 78 Intake and Output for Last 24 Hours 10/26/19 10/27/19 10/28/19 23:59 23:59 23:59 Intake Total 0 / 0 675 / 675 50 / 50 Output Total 1000 / 1000 Balance 0 / 0 -325 / -325 50 / 50 General: Alert, Oriented x3, Cooperative HEENT: Atraumatic, PERRLA, EOMI, Normocephalic Neck: Supple, No JVD, Negative Carotid Bruits Lungs: Clear to auscultation, Normal air movement Cardiovascular: Regular rate, Regular Rhythm, Normal S1, Normal S2, No murmurs Abdomen: Bowel Sounds Present, Soft, Non Tender, Non-Distended Extremities: No clubbing, No cyanosis, No edema, Capillary Refill Less than 3 Seconds Skin: No rashes, No breakdown Musculoskeletal: No Tenderness to Palpation of Joints or Extremities Neurological: Cranial nerves II-XII grossly intact, Neuro grossly intact Psych/Mental Status: Normal Affect, Appropriate Current Medications Aspirin (Ecotrin) 81 mg PO DAILY@0800 [facility] Last Admin: 10/27/19 10:13 Dose: 81 mg Documented by: Atorvastatin Calcium (Lipitor) 40 mg PO QHS [facility] Last Admin: 10/27/19 21:10 Dose: 40 mg Documented by: Budesonide (Pulmicort Aerosol) 0.5 mg INHALATION BID.RT [facility] Last Admin: 10/28/19 06:40 Dose: 0.5 mg Documented by: Calcium Acetate (Phoslo Gel Cap) 667 mg PO TIDCM [facility] Last Admin: 10/27/19 17:20 Dose: Not Given Documented by: Clopidogrel Bisulfate (Plavix) 75 mg PO DAILY [facility] Dextrose (D50w Syringe) 0 gm IV X1 PRN; Protocol PRN Reason: Hypoglycemia Docusate Sodium (Colace) 100 mg PO BID PRN PRN PRN Reason: Constipation Ergocalciferol (Vitamin D) 50,000 unit PO QMONTH@1000 [facility] Glucagon () 1 mg IM .X1 PRN PRN Reason: Hypoglycemia Heparin Sodium (Porcine) (Heparin Na) 5,000 unit SC Q12 [facility] Last Admin: 10/27/19 21:08 Dose: 5,000 unit Documented by: Sodium Chloride () 500 mls @ 15 mls/hr IV PRN PRN PRN Reason: Blood Transfusion Sodium Chloride () 250 mls @ 15 mls/hr IV .[id number] PRN PRN Reason: Saline Flush Sodium Chloride () 250 mls @ 15 mls/hr IV .[id number] PRN PRN Reason: Additional IVPB Infusion Isosorbide Mononitrate (Imdur) 60 mg PO SuMoWeFr@1000 [facility] Latanoprost (Xalatan Opthalmic) 1 drop RIGHT EYE QHS [facility] Last Admin: 10/27/19 21:09 Dose: 1 drop Documented by: Levetiracetam (Keppra Tablet) 500 mg PO BID [facility] Levothyroxine Sodium (Synthroid) 100 mcg PO DAILY@0600 [facility] Last Admin: 10/28/19 05:28 Dose: 100 mcg Documented by: Multivit/Ca Carb/B Cmplx/FA/Prenat (Nephrocaps, Renaphro) 1 capsule PO DAILY [facility] Last Admin: 10/27/19 10:13 Dose: 1 capsule Documented by: Sodium Chloride () 10 - 40 ml IV UD PRN PRN Reason: SALINE FLUSH Timolol Maleate (Timoptic) 1 drop EACH EYE BID [facility] Last Admin: 10/27/19 21:08 Dose: 1 drop Documented by: Medical Necessity - Tobacco Use Smoking Status: Never smoker Tobacco Use: Non-smoker Assessment/Plan All Active Problems (Last Reviewed 10/26/19 @ 18:[address] Melody Patrick DO) TIA (transient ischemic attack) (Acute) Cough (Resolved) Elevated troponin I level (Resolved) Problem with dialysis access (Resolved) Respiratory failure with hypoxia (Resolved) Shortness of breath (Resolved) Status post placement of implantable loop recorder (Resolved) Left ventricular diastolic dysfunction (Ruled-out) 1. 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 Brain CT on admission with chronic changes. Stable changes in the left temporal lobe as well as in the medial aspect of the right cerebellar sphere. Continue aspirin, statin. PT/OT/ST. MRI of brain shows no acute infarct. 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 Echocardiogram demonstrates an EF of 65%, stage I diastolic dysfunction. Patient has loop recorder in place due to recurrent TIA/CVA. Unable to have device interrogated over the weekend. She has upcoming loop recorder check 11/05/2019. If atrial fibrillation is noted, patient will need to be placed on anticoagulation. [facility] neurology consult obtained who recommended addition of Plavix for 3 weeks then resume monotherapy with aspirin only. Will refer to neurology, Dr. Presley as outpatient. Will obtain EEG to assess for seizure activity. 2. Chronic diastolic CHF-stable. Echocardiogram 07/23/2019 demonstrated an EF of 50%. 3. 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 Patrick for dialysis. Tuesday, , Tuesday schedule. 4. Iron deficiency anemia/anemia of chronic disease-stable. 5. Hypertension-stable, continue home amlodipine, isosorbide regimen. 6. Hypothyroidism-continue home Synthroid regimen. DVT prophylaxis- heparin sc This patient was seen by TOM Clay under the supervision of Dr. Perea. <Genny Perea - Last Filed: 10/28/19 13:17> - Physical Exam Vitals/I&O's: Vital Signs Temp Pulse Resp BP Pulse Ox 98.1 F 75 18 138/70 H 96 10/28/19 11:25 10/28/19 11:25 10/28/19 11:25 10/28/19 11:25 10/28/19 11:25 Oxygen Delivery Method Room Air Weight: 153 lb 3.54 oz Body Mass Index (BMI) 28.4 Finger Stick Blood Glucose 78 Intake and Output for Last 24 Hours 10/26/19 10/27/19 10/28/19 23:59 23:59 23:59 Intake Total 0 / 0 675 / 675 50 / 50 Output Total 1000 / 1000 Balance 0 / 0 -325 / -325 50 / 50 Current Medications Aspirin (Ecotrin) 81 mg PO DAILY@0800 [facility] Last Admin: 10/28/19 10:30 Dose: 81 mg Documented by: Atorvastatin Calcium (Lipitor) 40 mg PO QHS [facility] Last Admin: 10/27/19 21:10 Dose: 40 mg Documented by: Budesonide (Pulmicort Aerosol) 0.5 mg INHALATION BID.RT [facility] Last Admin: 10/28/19 06:40 Dose: 0.5 mg Documented by: Calcium Acetate (Phoslo Gel Cap) 667 mg PO TIDCM [facility] Last Admin: 10/28/19 10:32 Dose: 667 mg Documented by: Clopidogrel Bisulfate (Plavix) 75 mg PO DAILY [facility] Last Admin: 10/28/19 10:35 Dose: 75 mg Documented by: Dextrose (D50w Syringe) 0 gm IV X1 PRN; Protocol PRN Reason: Hypoglycemia Docusate Sodium (Colace) 100 mg PO BID PRN PRN PRN Reason: Constipation Ergocalciferol (Vitamin D) 50,000 unit PO QMONTH@1000 [facility] Glucagon () 1 mg IM .X1 PRN PRN Reason: Hypoglycemia Heparin Sodium (Porcine) (Heparin Na) 5,000 unit SC Q12 [facility] Last Admin: 10/28/19 10:31 Dose: 5,000 unit Documented by: Sodium Chloride () 500 mls @ 15 mls/hr IV PRN PRN PRN Reason: Blood Transfusion Sodium Chloride () 250 mls @ 15 mls/hr IV .[id number] PRN PRN Reason: Saline Flush Sodium Chloride () 250 mls @ 15 mls/hr IV .[id number] PRN PRN Reason: Additional IVPB Infusion Isosorbide Mononitrate (Imdur) 60 mg PO SuMoWeFr@1000 [facility] Last Admin: 10/28/19 10:31 Dose: 60 mg Documented by: Latanoprost (Xalatan Opthalmic) 1 drop RIGHT EYE QHS [facility] Last Admin: 10/27/19 21:09 Dose: 1 drop Documented by: Levetiracetam (Keppra Tablet) 500 mg PO BID [facility] Last Admin: 10/28/19 10:30 Dose: 500 mg Documented by: Levothyroxine Sodium (Synthroid) 100 mcg PO DAILY@0600 [facility] Last Admin: 10/28/19 05:28 Dose: 100 mcg Documented by: Multivit/Ca Carb/B Cmplx/FA/Prenat (Nephrocaps, Renaphro) 1 capsule PO DAILY [facility] Last Admin: 10/28/19 10:30 Dose: 1 capsule Documented by: Sodium Chloride () 10 - 40 ml IV UD PRN PRN Reason: SALINE FLUSH Timolol Maleate (Timoptic) 1 drop EACH EYE BID [facility] Last Admin: 10/28/19 10:34 Dose: 1 drop Documented by: Assessment/Plan This is a progress note for 10/27/2019. Patient was seen by TOM Clay under my supervision. Patient was originally admitted with concerns for slurred speech and expressive aphasia and was being worked up for TIA versus stroke. CT of the head was negative. MRI of the brain was also negative. MRA of the head and neck showed occluded left vertebral artery which was also seen on CTA in June 2019. 2D echo done showed EF of 65% with stage I diastolic dysfunction. Plan had been to discharge her home to have follow-up with neurology on outpatient basis and to have a loop recorder check on 11/05/2019. However prior to discharge, patient became unresponsive and his eyes rolled back in her head. She also had postictal drowsiness. There was concern for seizures so discharge was canceled. Patient was seen and had no complaints and felt well. Review systems otherwise negative. Labs and vitals reviewed. o/e: Vital Signs Temp Pulse Resp BP Pulse Ox 98.1 F 75 18 138/70 H 96 10/28/19 11:25 10/28/19 11:25 10/28/19 11:25 10/28/19 11:25 10/28/19 11:25 Plan is to cancel discharge. Will order EEG. Get neurology evaluation. PT OT consult. Fall and seizure precautions. IV ativan prn for seizures. Rest as per TOM Clay's notes which I reviewed and endorsed. OBSV E&M: [id number] Subsequent observation care L2
[2019-10-28] MEDS: levETIRAcetam 500 MG Tablet PO ×2 (10:30→21:22)
[2019-10-28] MEDS: Folic Acid/Vitamin B Comp W-C 1 Capsule 1 CAP PO (10:30)
[2019-10-28] MEDS: Aspirin E.C. 81 MG Tablet PO (10:30)
[2019-10-28] MEDS: Heparin Injection (Vial) 5,000 UNIT/ML VIAL 5000 UNIT SC ×2 (10:31→21:19)
[2019-10-28] MEDS: Isosorbide Mononitrate 60 MG Tablet PO (10:31)
[2019-10-28] MEDS: Calcium Acetate 667 MG Capsule PO ×3 (10:32→17:26)
[2019-10-28] MEDS: Timolol 0.5% 5ML OPTH.BTL 1 DRP EACH EYE ×2 (10:34→21:19)
[2019-10-28] MEDS: Clopidogrel Bisulfate 75 MG Tablet PO (10:35)
--- NOTE | 2019-10-28 11:08 | PCM.PROGNOTE ---
<Elaine Ramirez - Last Filed: 10/28/19 11:17> Subjective: Patient seen and examined. Denies current complaints. Underwent EEG this morning, awaiting results. - Physical Exam Vitals/I&O's: Vital Signs Temp Pulse Resp BP Pulse Ox 98.7 F 77 16 148/67 H 97 10/28/19 05:26 10/28/19 06:48 10/28/19 06:40 10/28/19 05:26 10/28/19 06:40 Oxygen Delivery Method Room Air Weight: 153 lb 3.54 oz Body Mass Index (BMI) 28.4 Finger Stick Blood Glucose 78 Intake and Output for Last 24 Hours 10/26/19 10/27/19 10/28/19 23:59 23:59 23:59 Intake Total 0 / 0 675 / 675 50 / 50 Output Total 1000 / 1000 Balance 0 / 0 -325 / -325 50 / 50 General: Alert, Oriented x3, Cooperative HEENT: Atraumatic, PERRLA, EOMI, Normocephalic Neck: Supple, No JVD, Negative Carotid Bruits Lungs: Clear to auscultation, Normal air movement Cardiovascular: Regular rate, No murmurs Abdomen: Bowel Sounds Present, Soft, Non Tender, Non-Distended Extremities: No clubbing, No cyanosis, No edema, Capillary Refill Less than 3 Seconds Skin: No rashes, No breakdown Musculoskeletal: No Tenderness to Palpation of Joints or Extremities Neurological: Cranial nerves II-XII grossly intact, Neuro grossly intact Psych/Mental Status: Normal Affect, Appropriate Current Medications Aspirin (Ecotrin) 81 mg PO DAILY@0800 REPLACED BY [facility] Last Admin: 10/28/19 10:30 Dose: 81 mg Documented by: Atorvastatin Calcium (Lipitor) 40 mg PO QHS REPLACED BY [facility] Last Admin: 10/27/19 21:10 Dose: 40 mg Documented by: Budesonide (Pulmicort Aerosol) 0.5 mg INHALATION BID.RT REPLACED BY [facility] Last Admin: 10/28/19 06:40 Dose: 0.5 mg Documented by: Calcium Acetate (Phoslo Gel Cap) 667 mg PO TIDCM REPLACED BY [facility] Last Admin: 10/28/19 10:32 Dose: 667 mg Documented by: Clopidogrel Bisulfate (Plavix) 75 mg PO DAILY REPLACED BY [facility] Last Admin: 10/28/19 10:35 Dose: 75 mg Documented by: Dextrose (D50w Syringe) 0 gm IV X1 PRN; Protocol PRN Reason: Hypoglycemia Docusate Sodium (Colace) 100 mg PO BID PRN PRN PRN Reason: Constipation Ergocalciferol (Vitamin D) 50,000 unit PO QMONTH@1000 [facility]PLACED [facility] Glucagon () 1 mg IM .X1 PRN PRN Reason: Hypoglycemia Heparin Sodium (Porcine) (Heparin Na) 5,000 unit SC Q12 REPLACED BY [facility] Last Admin: 10/28/19 10:31 Dose: 5,000 unit Documented by: Sodium Chloride () 500 mls @ 15 mls/hr IV PRN PRN PRN Reason: Blood Transfusion Sodium Chloride () 250 mls @ 15 mls/hr IV .[id number] PRN PRN Reason: Saline Flush Sodium Chloride () 250 mls @ 15 mls/hr IV .[id number] PRN PRN Reason: Additional IVPB Infusion Isosorbide Mononitrate (Imdur) 60 mg PO SuMoWeFr@1000 REPLACED BY [facility] Last Admin: 10/28/19 10:31 Dose: 60 mg Documented by: Latanoprost (Xalatan Opthalmic) 1 drop RIGHT EYE QHS REPLACED BY [facility] Last Admin: 10/27/19 21:09 Dose: 1 drop Documented by: Levetiracetam (Keppra Tablet) 500 mg PO BID REPLACED BY [facility] Last Admin: 10/28/19 10:30 Dose: 500 mg Documented by: Levothyroxine Sodium (Synthroid) 100 mcg PO DAILY@0600 REPLACED BY [facility] Last Admin: 10/28/19 05:28 Dose: 100 mcg Documented by: Multivit/Ca Carb/B Cmplx/FA/Prenat (Nephrocaps, Renaphro) 1 capsule PO DAILY REPLACED BY [facility] Last Admin: 10/28/19 10:30 Dose: 1 capsule Documented by: Sodium Chloride () 10 - 40 ml IV UD PRN PRN Reason: SALINE FLUSH Timolol Maleate (Timoptic) 1 drop EACH EYE BID REPLACED BY [facility] Last Admin: 10/28/19 10:34 Dose: 1 drop Documented by: Medical Necessity - Tobacco Use Smoking Status: Never smoker Tobacco Use: Non-smoker Assessment/Plan All Active Problems (Last Reviewed 10/26/19 @ 18:[address] Melody Patrick DO) TIA (transient ischemic attack) (Acute) Cough (Resolved) Elevated troponin I level (Resolved) Problem with dialysis access (Resolved) Respiratory failure with hypoxia (Resolved) Shortness of breath (Resolved) Status post placement of implantable loop recorder (Resolved) Left ventricular diastolic dysfunction (Ruled-out) 1. TIA vs seizure- Slurred speech/expressive aphasia, history of CVA (06/2019)-Patient was transferred to [facility] June 2019 where she was found to have R M2 occlusion and small right MCA stroke where she received TPA. Brain CT on admission with chronic changes. Stable changes in the left temporal lobe as well as in the medial aspect of the right cerebellar sphere. Continue aspirin, statin. PT/OT/ST. MRI of brain shows no acute infarct. 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 Echocardiogram demonstrates an EF of 65%, stage I diastolic dysfunction. Patient has loop recorder in place due to recurrent TIA/CVA. Unable to have device interrogated over the weekend. She has upcoming loop recorder check 11/05/2019. If atrial fibrillation is noted, patient will need to be placed on anticoagulation. [facility] neurology consult obtained who recommended addition of Plavix for 3 weeks then resume monotherapy with aspirin only. Will refer to neurology, Dr. Presley as outpatient. Patient had episode last evening where her eyes rolled back in her head and she was drooling. Short period of altered mental status following that event. EEG obtained this morning, result pending. Will reconsult neurology following EEG read. Placed on Keppra empirically pending results/consult. Seizure precautions. 2. Chronic diastolic CHF-stable. Echocardiogram 07/23/2019 demonstrated an EF of 50%. 3. 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 Patrick for dialysis. Tuesday, , Tuesday schedule. 4. Iron deficiency anemia/anemia of chronic disease-stable. 5. Hypertension-stable, continue home amlodipine, isosorbide regimen. 6. Hypothyroidism-continue home Synthroid regimen. DVT prophylaxis- heparin sc This patient was seen by TOM Clay under the supervision of Dr. Perea. <Genny Perea - Last Filed: 10/28/19 13:13> - Physical Exam Vitals/I&O's: Vital Signs Temp Pulse Resp BP Pulse Ox 98.1 F 75 18 138/70 H 96 10/28/19 11:25 10/28/19 11:25 10/28/19 11:25 10/28/19 11:25 10/28/19 11:25 Oxygen Delivery Method Room Air Weight: 153 lb 3.54 oz Body Mass Index (BMI) 28.4 Finger Stick Blood Glucose 78 Intake and Output for Last 24 Hours 10/26/19 10/27/19 10/28/19 23:59 23:59 23:59 Intake Total 0 / 0 675 / 675 50 / 50 Output Total 1000 / 1000 Balance 0 / 0 -325 / -325 50 / 50 Current Medications Aspirin (Ecotrin) 81 mg PO DAILY@0800 REPLACED BY [facility] Last Admin: 10/28/19 10:30 Dose: 81 mg Documented by: Atorvastatin Calcium (Lipitor) 40 mg PO QHS REPLACED BY [facility] Last Admin: 10/27/19 21:10 Dose: 40 mg Documented by: Budesonide (Pulmicort Aerosol) 0.5 mg INHALATION BID.RT REPLACED BY [facility] Last Admin: 10/28/19 06:40 Dose: 0.5 mg Documented by: Calcium Acetate (Phoslo Gel Cap) 667 mg PO TIDCM REPLACED BY [facility] Last Admin: 10/28/19 10:32 Dose: 667 mg Documented by: Clopidogrel Bisulfate (Plavix) 75 mg PO DAILY REPLACED BY [facility] Last Admin: 10/28/19 10:35 Dose: 75 mg Documented by: Dextrose (D50w Syringe) 0 gm IV X1 PRN; Protocol PRN Reason: Hypoglycemia Docusate Sodium (Colace) 100 mg PO BID PRN PRN PRN Reason: Constipation Ergocalciferol (Vitamin D) 50,000 unit PO QMONTH@1000 REPLACED BY [facility] Glucagon () 1 mg IM .X1 PRN PRN Reason: Hypoglycemia Heparin Sodium (Porcine) (Heparin Na) 5,000 unit SC Q12 REPLACED BY [facility] Last Admin: 10/28/19 10:31 Dose: 5,000 unit Documented by: Sodium Chloride () 500 mls @ 15 mls/hr IV PRN PRN PRN Reason: Blood Transfusion Sodium Chloride () 250 mls @ 15 mls/hr IV .[id number] PRN PRN Reason: Saline Flush Sodium Chloride () 250 mls @ 15 mls/hr IV .[id number] PRN PRN Reason: Additional IVPB Infusion Isosorbide Mononitrate (Imdur) 60 mg PO SuMoWeFr@1000 REPLACED BY [facility] Last Admin: 10/28/19 10:31 Dose: 60 mg Documented by: Latanoprost (Xalatan Opthalmic) 1 drop RIGHT EYE QHS REPLACED BY [facility] Last Admin: 10/27/19 21:09 Dose: 1 drop Documented by: Levetiracetam (Keppra Tablet) 500 mg PO BID REPLACED BY [facility] Last Admin: 10/28/19 10:30 Dose: 500 mg Documented by: Levothyroxine Sodium (Synthroid) 100 mcg PO DAILY@0600 REPLACED BY [facility] Last Admin: 10/28/19 05:28 Dose: 100 mcg Documented by: Multivit/Ca Carb/B Cmplx/FA/Prenat (Nephrocaps, Renaphro) 1 capsule PO DAILY REPLACED BY [facility] Last Admin: 10/28/19 10:30 Dose: 1 capsule Documented by: Sodium Chloride () 10 - 40 ml IV UD PRN PRN Reason: SALINE FLUSH Timolol Maleate (Timoptic) 1 drop EACH EYE BID REPLACED BY [facility] Last Admin: 10/28/19 10:34 Dose: 1 drop Documented by: Assessment/Plan Patient seen by Elaine SANTOS under my supervision Patient seen and examined. She has no complaints this morning. She was due to be discharged yesterday; however, she had a seizure like episode wehre she just went numb and unresponsive and her eyes rolled in the back of her head; she also had post ictal drowsiness. Discharge was therefore cancelled. She feels well this morning. Review of stems otherwise negative. Labs and vitals reviewed. O/e: Vital Signs Temp Pulse Resp BP Pulse Ox 98.1 F 75 18 138/70 H 96 10/28/19 11:25 10/28/19 11:25 10/28/19 11:25 10/28/19 11:25 10/28/19 11:25 General: Alert, Oriented x3, Cooperative HEENT: Atraumatic, PERRLA, EOMI, Normocephalic Neck: Supple, No JVD, Negative Carotid Bruits Lungs: Clear to auscultation, Normal air movement Cardiovascular: Regular rate, Regular Rhythm, Normal S1, Normal S2, No murmurs Abdomen: Bowel Sounds Present, Soft, Non Tender, Non-Distended Extremities: No clubbing, No cyanosis, No edema, Capillary Refill Less than 3 Seconds Skin: No rashes, No breakdown Musculoskeletal: No Tenderness to Palpation of Joints or Extremities Neurological: Cranial nerves II-XII grossly intact, Neuro grossly intact, - - Expressive aphasia, mild Psych/Mental Status: Normal Affect, Appropriate Plan is to get EEG and then to get neurology evaluation. Patient started on p.o. Keppra 500 mg twice daily. She is also on aspirin and Plavix after she was reviewed by neurology yesterday on account of suspicion for stroke. She is take Plavix for 3 weeks and then to continue with monotherapy with aspirin only. Fall precautions. Seizure precautions. Rest as per TOM Clay's notes which I reviewed and endorsed. OBSV E&M: [id number] Subsequent observation care L2
--- NOTE | 2019-10-28 14:23 | PN.RENAL_ITS ---
Subjective: discharge cancelled due to neurologic changes with slurred speech, drooling. Denies trouble with swallowing. Neuro on board. Evaluate for seizures - Physical Exam Vitals/I&O's: Vital Signs Temp Pulse Resp BP Pulse Ox 98.1 F 75 18 138/70 H 96 10/28/19 11:25 10/28/19 11:25 10/28/19 11:25 10/28/19 11:25 10/28/19 11:25 Oxygen Delivery Method Room Air Weight: 69.5 kg Body Mass Index (BMI) 28.4 Finger Stick Blood Glucose 78 Intake and Output for Last 24 Hours 10/26/19 10/27/19 10/28/19 23:59 23:59 23:59 Intake Total 0 / 0 675 / 675 290 / 290 Output Total 1000 / 1000 Balance 0 / 0 -325 / -325 290 / 290 General: Alert Lungs: Clear to auscultation Cardiovascular: Regular rate Extremities: No edema, - - AVF left arm Current Medications Aspirin (Ecotrin) 81 mg PO DAILY@0800 REPLACED BY [facility] Last Admin: 10/28/19 10:30 Dose: 81 mg Documented by: Atorvastatin Calcium (Lipitor) 40 mg PO QHS REPLACED BY [facility] Last Admin: 10/27/19 21:10 Dose: 40 mg Documented by: Budesonide (Pulmicort Aerosol) 0.5 mg INHALATION BID.RT REPLACED BY [facility] Last Admin: 10/28/19 06:40 Dose: 0.5 mg Documented by: Calcium Acetate (Phoslo Gel Cap) 667 mg PO TIDCM REPLACED BY [facility] Last Admin: 10/28/19 13:19 Dose: 667 mg Documented by: Clopidogrel Bisulfate (Plavix) 75 mg PO DAILY REPLACED BY [facility] Last Admin: 10/28/19 10:35 Dose: 75 mg Documented by: Dextrose (D50w Syringe) 0 gm IV X1 PRN; Protocol PRN Reason: Hypoglycemia Docusate Sodium (Colace) 100 mg PO BID PRN PRN PRN Reason: Constipation Ergocalciferol (Vitamin D) 50,000 unit PO QMONTH@1000 REPLACED BY [facility] Glucagon () 1 mg IM .X1 PRN PRN Reason: Hypoglycemia Heparin Sodium (Porcine) (Heparin Na) 5,000 unit SC Q12 REPLACED BY [facility] Last Admin: 10/28/19 10:31 Dose: 5,000 unit Documented by: Sodium Chloride () 500 mls @ 15 mls/hr IV PRN PRN PRN Reason: Blood Transfusion Sodium Chloride () 250 mls @ 15 mls/hr IV .[id number] PRN PRN Reason: Saline Flush Sodium Chloride () 250 mls @ 15 mls/hr IV .[id number] PRN PRN Reason: Additional IVPB Infusion Isosorbide Mononitrate (Imdur) 60 mg PO SuMoWeFr@1000 REPLACED BY [facility] Last Admin: 10/28/19 10:31 Dose: 60 mg Documented by: Latanoprost (Xalatan Opthalmic) 1 drop RIGHT EYE QHS REPLACED BY [facility] Last Admin: 10/27/19 21:09 Dose: 1 drop Documented by: Levetiracetam (Keppra Tablet) 500 mg PO BID REPLACED BY [facility] Last Admin: 10/28/19 10:30 Dose: 500 mg Documented by: Levothyroxine Sodium (Synthroid) 100 mcg PO DAILY@0600 REPLACED BY [facility] Last Admin: 10/28/19 05:28 Dose: 100 mcg Documented by: Multivit/Ca Carb/B Cmplx/FA/Prenat (Nephrocaps, Renaphro) 1 capsule PO DAILY REPLACED BY [facility] Last Admin: 10/28/19 10:30 Dose: 1 capsule Documented by: Sodium Chloride () 10 - 40 ml IV UD PRN PRN Reason: SALINE FLUSH Timolol Maleate (Timoptic) 1 drop EACH EYE BID REPLACED BY [facility] Last Admin: 10/28/19 10:34 Dose: 1 drop Documented by: Medical Necessity - Tobacco Use Smoking Status: Never smoker Tobacco Use: Non-smoker Assessment/Plan All Active Problems (Last Reviewed 10/26/19 @ 18:[address] Melody Patrick, DO) TIA (transient ischemic attack) (Acute) Cough (Resolved) Elevated troponin I level (Resolved) Problem with dialysis access (Resolved) Respiratory failure with hypoxia (Resolved) Shortness of breath (Resolved) Status post placement of implantable loop recorder (Resolved) Left ventricular diastolic dysfunction (Ruled-out) 1. ESRD HD last night with stable vitals 2. HTN stable 3. Dementia 4. TIA with slurred speech, drooling, per primary service mgmt 5 Anemia hgb stable.
[2019-10-28] MEDS: Latanoprost 0.005% 1 Bottle 1 DRP RIGHT EYE (21:19)
[2019-10-28] MEDS: Atorvastatin Calcium 40 MG Tablet PO (21:22)
[2019-10-29] VITALS (7 sets, daily range): BP systolic 132–148; BP diastolic 49–78; PULSE 70–85; RESP 16–20; TEMP 36.6–37; O2SAT 95–98
[2019-10-29 05:21] LABS: Hematocrit 33.4 % (37-47); Hemoglobin 10.5 g/dL (12.0-15.0); Mean Corp Hgb Conc 31.4 g/dL (32-36); Mean Corpuscular Hgb 28.8 pg (27.0-32.0); Mean Corpuscular Volume 91.8 fL (81-99); Mean Platelet Vol. 11.8 fl (6.2-12.0); Platelet Count 103 K/mm3 (150-450); RBC Distribution Width CV 14.1 % (11.6-14.6); RBC Distribution Width SD 47.3 fl (35.1-43.9); Red Blood Count 3.64 M/mm3 (4.2-5.4); White Blood Count 6.3 K/mm3 (4.4-11.0)
[2019-10-29 05:32] LABS: Anion Gap 8 (5-15); BUN 31 mg/dL (7-18); BUN/Creat Ratio 4.2 RATIO (10-20); Calcium,Total 8.8 mg/dL (8.5-10.1); Chloride 104 mmol/L (98-107); Creatinine, Serum 7.37 mg/dL (0.55-1.02); EST Glomerular Filtration Rate 6 mL/min (>60); Est Glom Filt Rate - Afr Amer 7 mL/min (>60); Estimated Creatinine Clearance 4.57 ml/min; Glucose 80 mg/dL (74-106); Sodium Level 137 mmol/L (136-145)
[2019-10-29] MEDS: Levothyroxine 100 MCG Tablet PO (05:36)
[2019-10-29] MEDS: Budesonide Respules 0.5 MG/2 ML AMPUL.NEB. INHALATION (07:40)
--- NOTE | 2019-10-29 07:56 | PCM.PN.HOSP ---
Vitals/I&O's: Vital Signs Temp Pulse Resp BP Pulse Ox 98.6 F 74 16 132/49 H 98 10/29/19 03:15 10/29/19 03:15 10/29/19 03:15 10/29/19 03:15 10/29/19 03:15 Oxygen Delivery Method Room Air Weight: 71 kg Body Mass Index (BMI) 28.4 Finger Stick Blood Glucose 78 Intake and Output for Last 24 Hours 10/27/19 10/28/19 10/29/19 23:59 23:59 23:59 Intake Total 675 / 675 845 / 845 50 / 50 Output Total 1000 / 1000 Balance -325 / -325 845 / 845 50 / 50 Laboratory Results 10/29/19 04:52: WBC 6.3, RBC 3.64 L, Hgb 10.5 L, Hct 33.4 L, MCV 91.8, MCH 28.8, MCHC 31.4 L, RDW Std Deviation 47.3 H, RDW Coeff of Lizett 14.1, Plt Count 103 L, MPV 11.8 10/29/19 04:52: Sodium 137, Potassium 5.0, Chloride 104, Carbon Dioxide 25.0, Anion Gap 8, BUN 31 H, Creatinine 7.37 H, Estim Creat Clear Calc 4.57, Est GFR (MDRD) Af Amer 7 L, Est GFR (MDRD) Non-Af 6 L, BUN/Creatinine Ratio 4.2 L, Glucose 80, Calcium 8.8 Current Medications Aspirin (Ecotrin) 81 mg PO DAILY@0800 [facility] Last Admin: 10/28/19 10:30 Dose: 81 mg Documented by: Atorvastatin Calcium (Lipitor) 40 mg PO QHS [facility] Last Admin: 10/28/19 21:22 Dose: 40 mg Documented by: Budesonide (Pulmicort Aerosol) 0.5 mg INHALATION BID.RT [facility] Last Admin: 10/29/19 07:40 Dose: 0.5 mg Documented by: Calcium Acetate (Phoslo Gel Cap) 667 mg PO TIDCM [facility] Last Admin: 10/28/19 17:26 Dose: 667 mg Documented by: Clopidogrel Bisulfate (Plavix) 75 mg PO DAILY [facility] Last Admin: 10/28/19 10:35 Dose: 75 mg Documented by: Dextrose (D50w Syringe) 0 gm IV X1 PRN; Protocol PRN Reason: Hypoglycemia Docusate Sodium (Colace) 100 mg PO BID PRN PRN PRN Reason: Constipation Ergocalciferol (Vitamin D) 50,000 unit PO QMONTH@1000 [facility] Glucagon () 1 mg IM .X1 PRN PRN Reason: Hypoglycemia Heparin Sodium (Porcine) (Heparin Na) 5,000 unit SC Q12 [facility] Last Admin: 10/28/19 21:19 Dose: 5,000 unit Documented by: Sodium Chloride () 500 mls @ 15 mls/hr IV PRN PRN PRN Reason: Blood Transfusion Sodium Chloride () 250 mls @ 15 mls/hr IV .[id number] PRN PRN Reason: Saline Flush Sodium Chloride () 250 mls @ 15 mls/hr IV .[id number] PRN PRN Reason: Additional IVPB Infusion Isosorbide Mononitrate (Imdur) 60 mg PO SuMoWeFr@1000 [facility] Last Admin: 10/28/19 10:31 Dose: 60 mg Documented by: Latanoprost (Xalatan Opthalmic) 1 drop RIGHT EYE QHS [facility] Last Admin: 10/28/19 21:19 Dose: 1 drop Documented by: Levetiracetam (Keppra Tablet) 500 mg PO BID [facility] Last Admin: 10/28/19 21:22 Dose: 500 mg Documented by: Levothyroxine Sodium (Synthroid) 100 mcg PO DAILY@0600 [facility] Last Admin: 10/29/19 05:36 Dose: 100 mcg Documented by: Multivit/Ca Carb/B Cmplx/FA/Prenat (Nephrocaps, Renaphro) 1 capsule PO DAILY [facility] Last Admin: 10/28/19 10:30 Dose: 1 capsule Documented by: Sodium Chloride () 10 - 40 ml IV UD PRN PRN Reason: SALINE FLUSH Timolol Maleate (Timoptic) 1 drop EACH EYE BID [facility] Last Admin: 10/28/19 21:19 Dose: 1 drop Documented by: Medical Necessity - Tobacco Use Smoking Status: Never smoker Tobacco Use: Non-smoker Assessment/Plan All Active Problems (Last Reviewed 10/26/19 @ 18:[address] Melody Patrick DO) TIA (transient ischemic attack) (Acute) Cough (Resolved) Elevated troponin I level (Resolved) Problem with dialysis access (Resolved) Respiratory failure with hypoxia (Resolved) Shortness of breath (Resolved) Status post placement of implantable loop recorder (Resolved) Left ventricular diastolic dysfunction (Ruled-out)
[2019-10-29] MEDS: Timolol 0.5% 5ML OPTH.BTL 1 DRP EACH EYE (09:01)
[2019-10-29] MEDS: Clopidogrel Bisulfate 75 MG Tablet PO (09:02)
[2019-10-29] MEDS: Aspirin E.C. 81 MG Tablet PO (09:02)
[2019-10-29] MEDS: levETIRAcetam 500 MG Tablet PO (09:02)
[2019-10-29] MEDS: Isosorbide Mononitrate 60 MG Tablet PO (09:02)
[2019-10-29] MEDS: Folic Acid/Vitamin B Comp W-C 1 Capsule 1 CAP PO (09:02)
[2019-10-29] MEDS: Calcium Acetate 667 MG Capsule PO ×2 (09:03→15:28)
[2019-10-29] MEDS: Heparin Injection (Vial) 5,000 UNIT/ML VIAL 5000 UNIT SC (09:04)
--- NOTE | 2019-10-29 11:15 | CASEMGMT ---
This RN CM to room with CARDOZO form at this time, explanation done-pt voices understanding, and signs CARDOZO form at this time. Original to chart and copy to pt at this time. Pt voices no further questions/concerns/needs at this time. Pt is A/OX4 at this time but does have some speech difficulty which according to pt/chart is from previous CVA. [place] JUSTIN CM
--- NOTE | 2019-10-29 11:23 | PCM.DC.SUM ---
<Elaine Ramirez - Last Filed: 10/29/19 11:30> Discharge Date and Diagnosis Date of Admission: 10/26/19 Date of Discharge: 10/29/19 - Primary Discharge Diagnosis Acute Problems: 1. TIA vs seizure 2. Chronic diastolic CHF 3. 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 Iron deficiency anemia/anemia of chronic disease 5. Hypertension 6. Hypothyroidism - Secondary Discharge Diagnosis Chronic Problems: Chronic Problems (Last Reviewed 10/26/19 @ 18:[address] 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 Stable changes in the left temporal lobe as well as in the medial aspect of the right cerebellar sphere. N.B. : The above information has been verbally conveyed by Perfecto Brice to Marry Jane on 10/26/2019 12:47:01 (ET). Electronically Signed: Perfecto Brice, at 12:50 EDT , Service support , ADDENDUM: 10/26/19 1257 IMPRESSION: Chronic involutional changes of the brain. Stable changes in the left temporal lobe as well as in the medial aspect of the right cerebellar sphere. N.B. : The above information has been verbally conveyed by Perfecto Brice to Marry Lara on 10/26/2019 12:47:01 (ET). Electronically Signed: Perfecto Brice, at 12:50 EDT , Service support , Chest X-Ray 10/26/19 13:24 IMPRESSION: Cardiomegaly. Stable increased markings at the lung bases slightly more prominent on the right side most likely secondary to scarring. Electronically Signed: Perfecto Babs, at 13:56 EDT , Service support , Brain MRI 10/26/19 15:21 IMPRESSION: Involutional changes of the brain, as described above. No acute infarct. Electronically Signed: Steve Pelayo MD at 20:12 EDT Tel , Service support , Head MRA 10/26/19 15:21 IMPRESSION: Normal MRA of the head aplastic or occluded left vertebral artery. Electronically Signed: Steve Pelayo MD at 20:14 EDT Tel , Service support , Neck MRA 10/26/19 15:21 IMPRESSION: 1. No carotid stenosis. 2. Normal right vertebral artery. 3. Occluded left vertebral artery. Electronically Signed: Steve Pelayo MD at 20:17 EDT Tel , Service support , Dr. Patrick- Nephrology SOC neurology Operations: None Procedures: 2-D Echocardiogram Summary of Care Provided: The patient is a 84 year old F admitted 10/26/2019 due to slurred speech and expressive aphasia. 1. TIA vs seizure- Slurred speech/expressive aphasia, history of CVA (06/2019)-Patient was transferred to [facility] June 2019 where she was found to have R M2 occlusion and small right MCA stroke where she received TPA. Brain CT on admission with chronic changes. Stable changes in the left temporal lobe as well as in the medial aspect of the right cerebellar sphere. Continue aspirin, statin. PT/OT/ST. MRI of brain shows no acute infarct. 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 Echocardiogram demonstrates an EF of 65%, stage I diastolic dysfunction. Patient has loop recorder in place due to recurrent TIA/CVA. Unable to have device interrogated during admission. She has upcoming loop recorder check 11/05/2019. If atrial fibrillation is noted, patient will need to be placed on anticoagulation. SOC neurology consult obtained who recommended addition of Plavix for 3 weeks then resume monotherapy with aspirin only. Will refer to neurology, Dr. Presley as outpatient. Patient had episode during admission where her eyes rolled back in her head and she was drooling. Short period of altered mental status following that event. EEG obtained which showed structural abnormality in the right hemisphere, no epileptiform discharges or seizure patterns. Neurology recommended continuing Keppra renally dosed thousand milligrams once daily with outpatient follow-up with neurology in 2 to 3 weeks. Patient may be having focal seizures which could be a sequela to stroke in June. Consider 24-hour continuous EEG as outpatient. 2. Chronic diastolic CHF-stable. Echocardiogram 07/23/2019 demonstrated an EF of 50%. 3. 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 Patrick for dialysis. Tuesday, , Tuesday schedule. 4. Iron deficiency anemia/anemia of chronic disease-stable. 5. Hypertension-stable, continue home amlodipine, isosorbide regimen. 6. Hypothyroidism-continue home Synthroid regimen. General: Alert, Oriented x3, Cooperative HEENT: Atraumatic, PERRLA, EOMI, Normocephalic Neck: Supple, No JVD, Negative Carotid Bruits Lungs: Clear to auscultation, Normal air movement Cardiovascular: Regular rate, Regular Rhythm, Normal S1, Normal S2, No murmurs Abdomen: Bowel Sounds Present, Soft, Non Tender, Non-Distended Extremities: No clubbing, No cyanosis, No edema, Capillary Refill Less than 3 Seconds Skin: No rashes, No breakdown Musculoskeletal: No Tenderness to Palpation of Joints or Extremities Neurological: Cranial nerves II-XII grossly intact, Neuro grossly intact, - - Expressive aphasia Psych/Mental Status: Normal Affect, Appropriate Patient seen and examined prior to discharge. Physical assessment as noted above. Patient is stable for discharge with follow up recommendations as noted above. This patient was seen by TOM Clay under the supervision of Dr. Manriquez. - Physical Exam Vitals/I&O's: Vital Signs Temp Pulse Resp BP Pulse Ox 97.9 F 74 18 144/72 H 95 10/29/19 09:00 10/29/19 09:00 10/29/19 09:00 10/29/19 09:00 10/29/19 09:00 Oxygen Delivery Method Room Air Weight: 156 lb 8.451 oz Body Mass Index (BMI) 28.4 Finger Stick Blood Glucose 78 Intake and Output for Last 24 Hours 10/27/19 10/28/19 10/29/19 23:59 23:59 23:59 Intake Total 675 / 675 845 / 845 50 / 50 Output Total 1000 / 1000 Balance -325 / -325 845 / 845 50 / 50 Laboratory Results 10/29/19 04:52: WBC 6.3, RBC 3.64 L, Hgb 10.5 L, Hct 33.4 L, MCV 91.8, MCH 28.8, MCHC 31.4 L, RDW Std Deviation 47.3 H, RDW Coeff of Lizett 14.1, Plt Count 103 L, MPV 11.8 10/29/19 04:52: Sodium 137, Potassium 5.0, Chloride 104, Carbon Dioxide 25.0, Anion Gap 8, BUN 31 H, Creatinine 7.37 H, Estim Creat Clear Calc 4.57, Est GFR (MDRD) Af Amer 7 L, Est GFR (MDRD) Non-Af 6 L, BUN/Creatinine Ratio 4.2 L, Glucose 80, Calcium 8.8 Current Medications Aspirin (Ecotrin) 81 mg PO DAILY@0800 [facility] Last Admin: 10/29/19 09:02 Dose: 81 mg Documented by: Atorvastatin Calcium (Lipitor) 40 mg PO QHS [facility] Last Admin: 10/28/19 21:22 Dose: 40 mg Documented by: Budesonide (Pulmicort Aerosol) 0.5 mg INHALATION BID.RT [facility] Last Admin: 10/29/19 07:40 Dose: 0.5 mg Documented by: Calcium Acetate (Phoslo Gel Cap) 667 mg PO TIDCM [facility] Last Admin: 10/29/19 09:03 Dose: 667 mg Documented by: Clopidogrel Bisulfate (Plavix) 75 mg PO DAILY [facility] Last Admin: 10/29/19 09:02 Dose: 75 mg Documented by: Dextrose (D50w Syringe) 0 gm IV X1 PRN; Protocol PRN Reason: Hypoglycemia Docusate Sodium (Colace) 100 mg PO BID PRN PRN PRN Reason: Constipation Ergocalciferol (Vitamin D) 50,000 unit PO QMONTH@1000 [facility] Glucagon () 1 mg IM .X1 PRN PRN Reason: Hypoglycemia Heparin Sodium (Porcine) (Heparin Na) 5,000 unit SC Q12 [facility] Last Admin: 10/29/19 09:04 Dose: 5,000 unit Documented by: Sodium Chloride () 500 mls @ 15 mls/hr IV PRN PRN PRN Reason: Blood Transfusion Sodium Chloride () 250 mls @ 15 mls/hr IV .[id number] PRN PRN Reason: Saline Flush Sodium Chloride () 250 mls @ 15 mls/hr IV .[id number] PRN PRN Reason: Additional IVPB Infusion Isosorbide Mononitrate (Imdur) 60 mg PO SuMoWeFr@1000 [facility] Last Admin: 10/29/19 09:02 Dose: 60 mg Documented by: Latanoprost (Xalatan Opthalmic) 1 drop RIGHT EYE QHS [facility] Last Admin: 10/28/19 21:19 Dose: 1 drop Documented by: Levetiracetam (Keppra Tablet) 1,000 mg PO DAILY [facility] Levothyroxine Sodium (Synthroid) 100 mcg PO DAILY@0600 [facility] Last Admin: 10/29/19 05:36 Dose: 100 mcg Documented by: Multivit/Ca Carb/B Cmplx/FA/Prenat (Nephrocaps, Renaphro) 1 capsule PO DAILY [facility] Last Admin: 10/29/19 09:02 Dose: 1 capsule Documented by: Sodium Chloride () 10 - 40 ml IV UD PRN PRN Reason: SALINE FLUSH Timolol Maleate (Timoptic) 1 drop EACH EYE BID [facility] Last Admin: 10/29/19 09:01 Dose: 1 drop Documented by: Home Medications: Medications to take at Discharge Ergocalciferol [Vitamin D] 50,000 unit PO QMONTH 07/20/15 Aspirin E.C. [Ecotrin] 81 mg PO DAILY@0800 #30 tab 07/22/15 Timolol 0.5% [Timoptic] 1 drp EACH EYE BID 11/26/15 Atorvastatin Calcium [Lipitor] 40 mg PO QHS #30 tab 02/02/18 Docusate Sodium [Colace] 100 mg PO BID PRN PRN cap 01/16/19 Calcium Acetate 667 mg PO TIDCM 07/14/19 Hydroxyzine HCl 25 mg PO Q8H PRN PRN 07/14/19 levothyroxine 100 mcg tablet 100 mcg PO DAILY 07/31/19 Amlodipine [Norvasc] 5 mg PO SUMOWEFR 10/26/19 Budesonide/Formoterol 160/4.5 [Symbicort 160/4.5 Mcg Inhaler (SP)] 1 puff INHALATION BID 10/26/19 Folic Acid/Vitamin B Comp W-C [Nephrocaps, Renaphro] 1 cap PO DAILY 10/26/19 Isosorbide Mononitrate [Imdur] 60 mg PO SUMOWEFR 10/26/19 Latanoprost 0.005% [Xalatan Opthalmic] 1 drp RIGHT EYE QHS 10/26/19 Clopidogrel Bisulfate [Plavix] 75 mg PO DAILY 21 Days tab 10/27/19 levETIRAcetam tablet [Keppra tablet] 1,000 mg PO DAILY tab 10/29/19 Primary Care Physician: Wayne Leahy Chi, MD [Primary Care Provider] - Please follow up with your Primary Care Physician in: 1 Week Please Follow Up With: Kianna Patrick DO When: As scheduled Please Follow Up With: Elkin Presley MD - Neurology When: 2 Weeks Please Follow Up With: Deborah Haider When: Loop recorder check, as scheduled 11/05/2019 Disposition: Long Term facility Minutes spent on discharge:: 35 Patient Condition:: Stable Medical Necessity - Tobacco Use Smoking Status: Never smoker Tobacco Use: Non-smoker Meaningful Use Info Meaningful Use Diagnoses (Choose all that apply): None applicable <[place] - Last Filed: 10/29/19 15:15> Discharge Date and Diagnosis - Secondary Discharge Diagnosis Chronic Problems: Chronic Problems (Last Reviewed 10/26/19 @ 18:[address] 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 And has a history of right MCA stroke status post TPA. She was admitted and underwent work-up for TIA versus seizure. Work-up included brain CT with chronic changes. MRI of the brain did not show any acute infarct. 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 2D echo showed an EF of 65%, stage I diastolic this order. Patient has a loop recorder placed and has an upcoming check on 11/05/19. During this hospital stay, patient was noted to have a probable seizure. Tele-neurology was consulted and recommended continuing Keppra. Outpatient 24-hour continuous EEG was recommended. Patient will follow-up with neurology in the outpatient. She was started on dual antiplatelet of aspirin and Plavix. She will discontinue Plavix in 3 weeks and continued only on aspirin. On the day of discharge, patient was seen and examined. No new complaints noted. Physical exam: General: Alert, Oriented x3, Cooperative HEENT: Atraumatic, PERRLA, EOMI, Normocephalic Neck: Supple, No JVD, Negative Carotid Bruits Lungs: Clear to auscultation, Normal air movement Cardiovascular: Regular rate, Regular Rhythm, Normal S1, Normal S2, No murmurs Abdomen: Bowel Sounds Present, Soft, Non Tender, Non-Distended Extremities: No clubbing, No cyanosis, No edema, Capillary Refill Less than 3 Seconds Skin: No rashes, No breakdown Musculoskeletal: No Tenderness to Palpation of Joints or Extremities Neurological: Cranial nerves II-XII grossly intact, Neuro grossly intact, - - Expressive aphasia Psych/Mental Status: Normal Affect, Appropriate - Physical Exam Vitals/I&O's: Vital Signs Temp Pulse Resp BP Pulse Ox 98.1 F 76 18 148/78 H 96 10/29/19 14:58 10/29/19 14:58 10/29/19 14:58 10/29/19 14:58 10/29/19 14:58 Oxygen Delivery Method Room Air Weight: 71 kg Body Mass Index (BMI) 28.4 Finger Stick Blood Glucose 78 Intake and Output for Last 24 Hours 10/27/19 10/28/19 10/29/19 23:59 23:59 23:59 Intake Total 675 / 675 845 / 845 170 / 170 Output Total 1000 / 1000 Balance -325 / -325 845 / 845 170 / 170 Laboratory Results 10/29/19 04:52: WBC 6.3, RBC 3.64 L, Hgb 10.5 L, Hct 33.4 L, MCV 91.8, MCH 28.8, MCHC 31.4 L, RDW Std Deviation 47.3 H, RDW Coeff of Lizett 14.1, Plt Count 103 L, MPV 11.8 10/29/19 04:52: Sodium 137, Potassium 5.0, Chloride 104, Carbon Dioxide 25.0, Anion Gap 8, BUN 31 H, Creatinine 7.37 H, Estim Creat Clear Calc 4.57, Est GFR (MDRD) Af Amer 7 L, Est GFR (MDRD) Non-Af 6 L, BUN/Creatinine Ratio 4.2 L, Glucose 80, Calcium 8.8 Current Medications Aspirin (Ecotrin) 81 mg PO DAILY@0800 [facility] Last Admin: 10/29/19 09:02 Dose: 81 mg Documented by: Atorvastatin Calcium (Lipitor) 40 mg PO QHS [facility] Last Admin: 10/28/19 21:22 Dose: 40 mg Documented by: Budesonide (Pulmicort Aerosol) 0.5 mg INHALATION BID.RT [facility] Last Admin: 10/29/19 07:40 Dose: 0.5 mg Documented by: Calcium Acetate (Phoslo Gel Cap) 667 mg PO TIDCM [facility] Last Admin: 10/29/19 12:02 Dose: Not Given Documented by: Clopidogrel Bisulfate (Plavix) 75 mg PO DAILY [facility] Last Admin: 10/29/19 09:02 Dose: 75 mg Documented by: Dextrose (D50w Syringe) 0 gm IV X1 PRN; Protocol PRN Reason: Hypoglycemia Docusate Sodium (Colace) 100 mg PO BID PRN PRN PRN Reason: Constipation Ergocalciferol (Vitamin D) 50,000 unit PO QMONTH@1000 [facility] Glucagon () 1 mg IM .X1 PRN PRN Reason: Hypoglycemia Heparin Sodium (Porcine) (Heparin Na) 5,000 unit SC Q12 [facility] Last Admin: 10/29/19 09:04 Dose: 5,000 unit Documented by: Sodium Chloride () 500 mls @ 15 mls/hr IV PRN PRN PRN Reason: Blood Transfusion Sodium Chloride () 250 mls @ 15 mls/hr IV .[id number] PRN PRN Reason: Saline Flush Sodium Chloride () 250 mls @ 15 mls/hr IV .[id number] PRN PRN Reason: Additional IVPB Infusion Isosorbide Mononitrate (Imdur) 60 mg PO SuMoWeFr@1000 [facility] Last Admin: 10/29/19 09:02 Dose: 60 mg Documented by: Latanoprost (Xalatan Opthalmic) 1 drop RIGHT EYE QHS [facility] Last Admin: 10/28/19 21:19 Dose: 1 drop Documented by: Levetiracetam (Keppra Tablet) 1,000 mg PO DAILY [facility] Levothyroxine Sodium (Synthroid) 100 mcg PO DAILY@0600 [facility] Last Admin: 10/29/19 05:36 Dose: 100 mcg Documented by: Multivit/Ca Carb/B Cmplx/FA/Prenat (Nephrocaps, Renaphro) 1 capsule PO DAILY [facility] Last Admin: 10/29/19 09:02 Dose: 1 capsule Documented by: Sodium Chloride () 10 - 40 ml IV UD PRN PRN Reason: SALINE FLUSH Timolol Maleate (Timoptic) 1 drop EACH EYE BID [facility] Last Admin: 10/29/19 09:01 Dose: 1 drop Documented by: OBSV E&M: [id number] Observation care discharge
--- NOTE | 2019-10-29 12:06 | PHA.DC.MR ---
Pharmacy Service has performed discharge medication reconciliation for this patient upon transfer to [facility]. The patient's discharge medication list was reviewed for discrepancies and discrepancies were resolved. Home Medications Ergocalciferol [Vitamin D] 50,000 unit PO QMONTH 07/20/15 Aspirin E.C. [Ecotrin] 81 mg PO DAILY@0800 #30 tab 07/22/15 Timolol 0.5% [Timoptic] 1 drp EACH EYE BID 11/26/15 Atorvastatin Calcium [Lipitor] 40 mg PO QHS #30 tab 02/02/18 Docusate Sodium [Colace] 100 mg PO BID PRN PRN cap 01/16/19 Calcium Acetate 667 mg PO TIDCM 07/14/19 Hydroxyzine HCl 25 mg PO Q8H PRN PRN 07/14/19 levothyroxine 100 mcg tablet 100 mcg PO DAILY 07/31/19 Amlodipine [Norvasc] 5 mg PO SUMOWEFR 10/26/19 Budesonide/Formoterol 160/4.5 [Symbicort 160/4.5 Mcg Inhaler (SP)] 1 puff INHALATION BID 10/26/19 Folic Acid/Vitamin B Comp W-C [Nephrocaps, Renaphro] 1 cap PO DAILY 10/26/19 Isosorbide Mononitrate [Imdur] 60 mg PO SUMOWEFR 10/26/19 Latanoprost 0.005% [Xalatan Opthalmic] 1 drp RIGHT EYE QHS 10/26/19 Clopidogrel Bisulfate [Plavix] 75 mg PO DAILY 21 Days tab 10/27/19 levETIRAcetam tablet [Keppra tablet] 1,000 mg PO DAILY tab 10/29/19
--- NOTE | 2019-10-29 12:57 | CASEMGMT ---
Patient is ready for discharge back to [place]. SHERYL called patient's daughter, [place] as she will be transporting her back. She said she is available anytime to pick her up. She said she has questions that she would like answered. She told SHERYL to let whomever will be calling her to let her know when she can come commodity supervisor patient should know she is going to ask questions. SHERYL passed along this information to Zina, patient's RN. SHERYL also called Lynda at [facility] and let her know patient will be returning today. SHERYL will let her know a time when patient's daughter will be picking her up. Deanne LEMUS MSW
--- NOTE | 2019-10-29 13:24 | CASEMGMT ---
SW received a call from patient's daughter, [place]. She said her sister wants to be present when she picks patient up. She said they could not pick her up until 3p at the earliest. SW told her SW notified the RN that she will have questions. Deanne GONZALES
--- NOTE | 2019-10-29 14:25 | PCM.PN.REN ---
Subjective: speech less slurred - Physical Exam Vitals/I&O's: Vital Signs Temp Pulse Resp BP Pulse Ox 97.9 F 74 18 144/72 H 95 10/29/19 09:00 10/29/19 09:00 10/29/19 09:00 10/29/19 09:00 10/29/19 09:00 Oxygen Delivery Method Room Air Weight: 71 kg Body Mass Index (BMI) 28.4 Finger Stick Blood Glucose 78 Intake and Output for Last 24 Hours 10/27/19 10/28/19 10/29/19 23:59 23:59 23:59 Intake Total 675 / 675 845 / 845 170 / 170 Output Total 1000 / 1000 Balance -325 / -325 845 / 845 170 / 170 General: Alert, Confused Lungs: Clear to auscultation Cardiovascular: Regular rate Laboratory Results 10/29/19 04:52: WBC 6.3, RBC 3.64 L, Hgb 10.5 L, Hct 33.4 L, MCV 91.8, MCH 28.8, MCHC 31.4 L, RDW Std Deviation 47.3 H, RDW Coeff of Lizett 14.1, Plt Count 103 L, MPV 11.8 10/29/19 04:52: Sodium 137, Potassium 5.0, Chloride 104, Carbon Dioxide 25.0, Anion Gap 8, BUN 31 H, Creatinine 7.37 H, Estim Creat Clear Calc 4.57, Est GFR (MDRD) Af Amer 7 L, Est GFR (MDRD) Non-Af 6 L, BUN/Creatinine Ratio 4.2 L, Glucose 80, Calcium 8.8 Current Medications Aspirin (Ecotrin) 81 mg PO DAILY@0800 [facility] Last Admin: 10/29/19 09:02 Dose: 81 mg Documented by: Atorvastatin Calcium (Lipitor) 40 mg PO QHS [facility] Last Admin: 10/28/19 21:22 Dose: 40 mg Documented by: Budesonide (Pulmicort Aerosol) 0.5 mg INHALATION BID.RT [facility] Last Admin: 10/29/19 07:40 Dose: 0.5 mg Documented by: Calcium Acetate (Phoslo Gel Cap) 667 mg PO TIDCM [facility] Last Admin: 10/29/19 12:02 Dose: Not Given Documented by: Clopidogrel Bisulfate (Plavix) 75 mg PO DAILY [facility] Last Admin: 10/29/19 09:02 Dose: 75 mg Documented by: Dextrose (D50w Syringe) 0 gm IV X1 PRN; Protocol PRN Reason: Hypoglycemia Docusate Sodium (Colace) 100 mg PO BID PRN PRN PRN Reason: Constipation Ergocalciferol (Vitamin D) 50,000 unit PO QMONTH@1000 [facility] Glucagon () 1 mg IM .X1 PRN PRN Reason: Hypoglycemia Heparin Sodium (Porcine) (Heparin Na) 5,000 unit SC Q12 [facility] Last Admin: 10/29/19 09:04 Dose: 5,000 unit Documented by: Sodium Chloride () 500 mls @ 15 mls/hr IV PRN PRN PRN Reason: Blood Transfusion Sodium Chloride () 250 mls @ 15 mls/hr IV .[id number] PRN PRN Reason: Saline Flush Sodium Chloride () 250 mls @ 15 mls/hr IV .[id number] PRN PRN Reason: Additional IVPB Infusion Isosorbide Mononitrate (Imdur) 60 mg PO SuMoWeFr@1000 [facility] Last Admin: 10/29/19 09:02 Dose: 60 mg Documented by: Latanoprost (Xalatan Opthalmic) 1 drop RIGHT EYE QHS [facility] Last Admin: 10/28/19 21:19 Dose: 1 drop Documented by: Levetiracetam (Keppra Tablet) 1,000 mg PO DAILY [facility] Levothyroxine Sodium (Synthroid) 100 mcg PO DAILY@0600 [facility] Last Admin: 10/29/19 05:36 Dose: 100 mcg Documented by: Multivit/Ca Carb/B Cmplx/FA/Prenat (Nephrocaps, Renaphro) 1 capsule PO DAILY [facility] Last Admin: 10/29/19 09:02 Dose: 1 capsule Documented by: Sodium Chloride () 10 - 40 ml IV UD PRN PRN Reason: SALINE FLUSH Timolol Maleate (Timoptic) 1 drop EACH EYE BID [facility] Last Admin: 10/29/19 09:01 Dose: 1 drop Documented by: Medical Necessity - Tobacco Use Smoking Status: Never smoker Tobacco Use: Non-smoker Assessment/Plan All Active Problems (Last Reviewed 10/26/19 @ 18:[address] Melody Patrick DO) TIA (transient ischemic attack) (Acute) Cough (Resolved) Elevated troponin I level (Resolved) Problem with dialysis access (Resolved) Respiratory failure with hypoxia (Resolved) Shortness of breath (Resolved) Status post placement of implantable loop recorder (Resolved) Left ventricular diastolic dysfunction (Ruled-out) 1. ESRD HD TTS 2. HTN stable 3. 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 TIA with slurred speech, drooling improved
--- NOTE | 2019-10-29 15:06 | NURSING ---
Called report to Ron [place]
== END 2019-10-29 11:12 ==
LOC: ED 12:57 → PCU 15:03
PROVIDERS: Nurse Practitioner Family; Admitting Provider Internal Medicine; Emergency Provider Emergency Medicine; PCP Family Medicine Geriatric Medicine; Visit Provider Internal Medicine
DX: R47.01 Aphasia (principal); I13.2 Hypertensive heart and chronic kidney disease with heart failure and with stage 5 chronic kidney disease, or end stage renal disease; I50.32 Chronic diastolic (congestive) heart failure; D63.8 Anemia in other chronic diseases classified elsewhere; D50.9 Iron deficiency anemia, unspecified; R29.701 NIHSS score 1; I45.2 Bifascicular block; I35.8 Other nonrheumatic aortic valve disorders; N18.6 End stage renal disease; E78.5 Hyperlipidemia, unspecified; F03.90 Unspecified dementia, unspecified severity, without behavioral disturbance, psychotic disturbance, mood disturbance, and anxiety; E03.9 Hypothyroidism, unspecified; H40.9 Unspecified glaucoma; R47.02 Dysphasia; J45.909 Unspecified asthma, uncomplicated; Z99.2 Dependence on renal dialysis; Z79.899 Other long term (current) drug therapy; Z79.82 Long term (current) use of aspirin; Z79.52 Long term (current) use of systemic steroids; Z86.73 Personal history of transient ischemic attack (TIA), and cerebral infarction without residual deficits
CPT/HCPCS: 36415; 70450; 70544; 70547; 70551; 71045; 80048; 80061; 83735; 84443; 84484; 85025; 85027; 85610; 85730; 90937; 92507; 92523; 92610; 93005; 93306; 94640; 94762; 95819; 96372; 97162; 97166; 97802; 99218; 99285; J7030; Q9957; A4216; G0257; G0378

== ENCOUNTER 2019-10-31 14:16 | Observation (INO) | payer MEDICARE, MEDICAID, SELFPAY ==
[2019-10-28 20:34] VITALS: BMI 28.4
[2019-10-31] VITALS (15 sets, daily range): BP systolic 126–151; BP diastolic 57–86; PULSE 75–81; RESP 16–20; TEMP 36.4–36.9; O2SAT 92–98; BMI 28.3; BMI 26.0
--- NOTE | 2019-10-31 14:23 | CT_ITS ---
STUDY: CT BRAIN WITHOUT CONTRAST REASON FOR EXAM: Female, 84 years old. CVA RADIATION DOSAGE (If Supplied By Facility): CTDIvol = ( 60.81 ) mGy, DLP = ( 1044.28 ) mGycm TECHNIQUE: Transaxial CT imaging of the brain was performed without administration of intravenous contrast material. Individualized dose optimization techniques were used for this CT. COMPARISON: Comparison is made with prior study October 26, 2019. FINDINGS: Normal soft tissue structures. Normal calvarium. There is mild cerebral atrophy with widening of the extra-axial spaces and ventricular dilatation. There are areas of decreased attenuation within the white matter tracts of the supratentorial brain, consistent with microvascular disease changes. Stable encephalomalacia in the left temporal lobe. Tiny lacunar infarct in the left thalamus. Normal brainstem. Stable encephalomalacia in the posterior medial aspect of the right cerebellar hemisphere. There is no intracranial hemorrhage. There are no findings of an acute ischemic infarction. Atherosclerotic calcification of the vertebral arteries and cavernous portions of the internal carotid arteries bilaterally. Normal visualized paranasal sinuses. CT/Brain/Head without Contrast IMPRESSION: Chronic involutional changes of the brain. Stable examination. N.B. : The above information has been verbally conveyed by Perfecto Brice to Memo Willy on 10/31/2019 14:32:19 (ET). Electronically Signed: Perfecto Brice, at 14:34 EDT , Service support ,
--- NOTE | 2019-10-31 14:27 | EKG12_ITS ---
Test Reason : STROKE TEAM Blood Pressure : / mmHG Vent. Rate : 081 BPM Atrial Rate : 081 BPM P-R Int : 152 ms QRS Dur : 140 ms QT Int : 392 ms P-R-T Axes : 057 -51 -31 degrees QTc Int : 455 ms Normal sinus rhythm Left axis deviation Right bundle branch block Inferior infarct , age undetermined Abnormal ECG Confirmed by IVETT SALMON, RAPHAEL ([id number]), editor publications RICHIE PARK ([id number]) on 11/05/2019 1:54:46 PM Referred By: NIECY Confirmed By:STACEY ROOT MD
--- NOTE | 2019-10-31 14:29 | ED.DCSUM_ITS ---
History of Present Illness Chief Complaint: Neuro S/Sx Narrative: She is an 84-year-old female who presents as a possible stroke. She was last seen normal at 1315. She was discovered at 1340 with left facial droop drooling and dysarthria. No seizure-like activity was witnessed. Patient did have a stroke in which she received TPA in June of this year and was transferred to [facility]. She was here 5 days ago for similar presentation to today. She had dysarthria and expressive aphasia. Her presenting NIH was 1 and when repeated NIH was 0. They thought that this may have been due to seizure. She is on Keppra. During recent hospitalization repeat imaging showed old strokes without acute infarction. She is currently on aspirin and Plavix. She is not on full anticoagulation such as warfarin. Currently the patient does not recall events immediately prior to presentation here but has no complaints at this time. Past Medical History - Allergies and Home Meds Allergies/Adverse Reactions: Allergies erythromycin base Allergy (Verified 10/26/19 13:02) Rash lisinopril Allergy (Verified 10/26/19 13:02) Unknown NSAIDS (Non-Steroidal Anti-Inflamma Allergy (Verified 10/26/19 13:02) Other Salicylates Allergy (Verified 10/26/19 13:02) Other PROTEIN IN URINE DRUG Allergy (Uncoded 10/26/19 13:02) Other Primary Care Physician: Wayne Leahy Chi, MD [Primary Care Provider] - Past Medical History: - - Chronic kidney disease, stroke, hypertension, hyperlipidemia, CHF Surgical History: cataract, hysterectomy, - - Leg tumor removed, unclear. Foot surgery, neck surgery-type unknown Smoking Status: Never smoker - Family History Maternal Family History: Family History (Last Reviewed 10/26/19 @ 18:[address] Melody Patrick DO) Mother Colon cancer Hypertension Father Hypertension Family History: Reports: Hypertension Paternal Family History: Family History (Last Reviewed 10/26/19 @ 18:[address] Melody Patrick DO) Mother Colon cancer Hypertension Father Hypertension Family History: Reports: Hypertension Review of Systems All systems negative except as indicated General: Denies: Fever Eyes: Denies: Visual changes - bilaterally ENT: Denies: Bilateral ear pain Cardiovascular: Denies: Chest pain Respiratory: Denies: Dyspnea Gastrointestinal: Denies: Abdominal pain, Nausea, Vomiting Musculoskeletal: Denies: Arthralgias Neurological: Reports: - - slurred speech. Denies: Headache Allergy: Denies: Uticaria Physical Exam Inital Vital Signs reviewed: Yes General: Well nourished, Well developed Head: Normocephalic Eyes: EOMI ENT: Moist mucous membranes Neck: Supple Cardiovascular: Regular rate, Regular rhythm Respiratory: No distress, CTA bilaterally Abdomen: Soft, Nontender Extremities: Nontender Skin: Normal color Neurological: Alert, - - NIH stroke scale on initial presentation is 1 for mild dysarthria. She has normal strength and sensation of the extremities she has no facial droop she does not have aphasia Psychological: Normal affect Diagnostic/Tx/Re-eval Impressions Brain CT 10/31/19 14:23 IMPRESSION: Chronic involutional changes of the brain. Stable examination. N.B. : The above information has been verbally conveyed by Perfecto Brice to Memo Aguilera on 10/31/2019 14:32:19 (ET). Electronically Signed: Perfecto Brice, at 14:34 EDT , Service support , ADDENDUM: 10/31/19 1441 IMPRESSION: Chronic involutional changes of the brain. Stable examination. N.B. : The above information has been verbally conveyed by Perfecto Brice to Memo Aguilera on 10/31/2019 14:32:19 (ET). Electronically Signed: Perfecto Brice, at 14:34 EDT , Service support , Head/Neck CTA 10/31/19 15:08 IMPRESSION: 1. Bovine arch. 2. No carotid stenosis. 3. Patent vertebral arteries bilaterally. 4. Suspect vasospasm in the left posterior cerebral artery possibly consistent with an acute infarct. Electronically Signed: Steve Pelayo MD at 16:46 EDT Tel , Service support , Chest X-Ray 10/31/19 15:25 IMPRESSION: No acute cardiopulmonary findings. Negative for new consolidation, focal atelectasis or a substantial pleural effusion. Stable appearance of a 2.5 x 1.9 cm nodule at the medial right lung base not substantially changed from prior exam of October 25 or June 05, 2019. Although not available for direct comparison, a prior chest radiograph of December 26, 2014 describes a nearly identical nodule suggesting a benign etiology. Electronically Signed: Maggy Waldrop MD at 16:57 EDT , Service support , 10/31/19 14:23 Brain/Head without Contrast [CT] Stat 10/31/19 15:08 CTA Head AND Neck W/ Contrast [CT] Stat 10/31/19 15:25 Chest 1 View [RAD] Stat Laboratory Results 10/31/19 10/31/19 10/31/19 14:23 14:23 14:23 WBC 6.8 RBC 3.83 L Hgb 11.1 L Hct 35.1 L MCV 91.6 MCH 29.0 MCHC 31.6 L RDW Std Deviation 47.1 H RDW Coeff of Lizett 14.2 Plt Count 125 L MPV 12.1 H Immature Gran % (Auto) 0.300 Neut % (Auto) 53.0 Lymph % (Auto) 33.2 [place] % (Auto) 8.0 Eos % (Auto) 4.3 Baso % (Auto) 1.2 H Absolute Neuts (auto) 3.6 Absolute Lymphs (auto) 2.25 Nucleated RBC % 0 PT 12.6 INR 1.0 APTT 31.8 Sodium 139 Potassium 4.6 Chloride 101 Carbon Dioxide 33.0 H Anion Gap 5 BUN 25 H Creatinine 6.92 H Estim Creat Clear Calc 5.32 Est GFR (MDRD) Af Amer 7 L Est GFR (MDRD) Non-Af 6 L BUN/Creatinine Ratio 3.6 L Glucose 109 H Calcium 9.1 Troponin I < 0.015 - Medical Decision Making Given initial NIH is only 1 with minimal deficit as well as a history of recent similar presentation in which stroke was ruled out, I do not believe patient is a TPA candidate at this time. I did speak to the stroke neurologist who agreed. We felt this was most likely related to her prior stroke. Initial head CT was negative for acute process. EKG shows normal sinus rhythm with a right bundle branch block at a rate of 81 without acute ischemic changes. Serum laboratory studies unremarkable. Stroke neurology did recommend CT angiogram of the head and neck. This showed vasospasm of the posterior cerebral artery possibly consistent with acute stroke. Therefore hospitalization and further evaluation was recommended. Patient discussed with the hospitalist and admitted. - Critical Care Time Critical care time (excluding procedures): 30-74 minutes, Discussing w/Patient &/or Family/Records And Tape Recordings Engineer, Discussing w/Consultants, Performing Direct Patient Care at Bedside ED Disposition - Plan for ED Patient: Disposition: Acute Care Hospital [facility] Diagnosis: Stroke Referrals: Wayne Leahy Chi, MD [Primary Care Provider] -
[2019-10-31 14:41] LABS: Absolute Lymphocyte Count 2.25 X10^3/uL (0.83-4.51); Absolute Neutrophil Count 3.6 X10^3/uL (2.0-7.7); Basophil# 0.08 X10^3/uL; Basophil% 1.2 % (0-1); Eosinophil# 0.29 X10^3/uL; Eosinophils% 4.3 % (0-5); Hematocrit 35.1 % (37-47); Hemoglobin 11.1 g/dL (12.0-15.0); Lymphocyte # 2.25 X10^3/ul (4.0); Lymphocyte % 33.2 % (19-41); Mean Corp Hgb Conc 31.6 g/dL (32-36); Mean Corpuscular Volume 91.6 fL (81-99); Mean Platelet Vol. 12.1 fl (6.2-12.0); Monocyte# 0.54 X10^3/uL; NRBC Flagged by Analyzer 0 % (0-5); Neutrophil # 3.59 X10^3/uL (2.7-7.7); Platelet Count 125 K/mm3 (150-450); RBC Distribution Width CV 14.2 % (11.6-14.6); RBC Distribution Width SD 47.1 fl (35.1-43.9); Red Blood Count 3.83 M/mm3 (4.2-5.4); White Blood Count 6.8 K/mm3 (4.4-11.0)
[2019-10-31 14:51] LABS: Prothrombin Time (Protime)PT. 12.6 SECONDS (11.7-14.9)
[2019-10-31 14:52] LABS: Partial Thromboplast Time 31.8 Seconds (24.1-36.2)
[2019-10-31 15:00] LABS: Anion Gap 5 (5-15); BUN 25 mg/dL (7-18); BUN/Creat Ratio 3.6 RATIO (10-20); Calcium,Total 9.1 mg/dL (8.5-10.1); Chloride 101 mmol/L (98-107); Creatinine, Serum 6.92 mg/dL (0.55-1.02); EST Glomerular Filtration Rate 6 mL/min (>60); Est Glom Filt Rate - Afr Amer 7 mL/min (>60); Estimated Creatinine Clearance 5.32 ml/min; Glucose 109 mg/dL (74-106); Potassium 4.6 mmol/L (3.5-5.1); Sodium Level 139 mmol/L (136-145)
--- NOTE | 2019-10-31 15:08 | CT_ITS ---
STUDY: CTA HEAD AND NECK WITH CONTRAST REASON FOR EXAM: Female, 84 years old. Neurologic deficit, slurred speech, hx CVA, dialysis. RADIATION DOSAGE (If Supplied By Facility): CTDIvol = ( 10.30 ) mGy, DLP = ( 675.86 ) mGycm TECHNIQUE: CT angiography was performed with a multi-detector CT scanner. Data acquisition was obtained from the skull base through the vertex following intravenous administration of 100mL [id number]. MIP images were reconstructed from the axial data set. Post-processing of the angiographic images was performed, with multiplanar reformation and 3D reconstruction. Individualized dose optimization techniques were used for this CT. COMPARISON: CT earlier today FINDINGS: Normal bilateral petrous carotid arteries. Normal right cavernous carotid artery with a normal supraclinoid bifurcation. Normal left cavernous carotid artery with a normal supraclinoid bifurcation. Normal right A1 segments of the anterior cerebral artery. Normal left A1 segments of the anterior cerebral artery. Normal intact anterior communicating artery (ACOM). Normal bilateral A2 segments of the anterior cerebral arteries. Normal right M1 and M2 segments of the middle cerebral arteries, with a normal M1 bifurcation. Normal left M1 and M2 segments of the middle cerebral arteries, with a normal M1 bifurcation. Normal right posterior communicating artery (PCOM). Normal left posterior communicating artery (PCOM). Normal bilateral vertebral arteries. Normal basilar artery with a normal basilar bifurcation. The visualized bilateral superior cerebellar (SCA) arteries are normal. Normal right posterior cerebral artery. Multiple areas of narrowing within the distal aspect of the left posterior cerebral artery worrisome for a vasospasm. There is no demonstrated aneurysm of the [place] of [place]. There is no demonstrated abnormality of the visualized brain. AORTIC ARCH: There is a bovine origin of the great vessels arising from the aortic arch with a common origin of the brachiocephalic and left common carotid artery. Normal origin of the left subclavian artery. Normal origins of the brachiocephalic, left common carotid, and left subclavian arteries. RIGHT CAROTID ARTERIES: Normal right common carotid artery (CCA). Normal right common carotid bulb. Normal origin of the right internal carotid (ICA) artery without a hemodynamically significant stenosis. Normal visualized cervical portion of the right internal carotid artery. Normal origin of the right external carotid artery (ECA). LEFT CAROTID ARTERIES: Normal left common carotid artery (CCA). Normal left common carotid bulb. Normal origin of the left internal carotid (ICA) artery without a hemodynamically significant stenosis. Normal visualized cervical portion of the left internal carotid artery. Normal origin of the left external carotid artery (ECA). VERTEBRAL ARTERIES: Normal bilateral vertebral arteries. CT/CTA Head AND Neck W/ Contrast IMPRESSION: 1. Bovine arch. 2. No carotid stenosis. 3. Patent vertebral arteries bilaterally. 4. Suspect vasospasm in the left posterior cerebral artery possibly consistent with an acute infarct. Electronically Signed: Steve Pelayo MD at 16:46 EDT Tel , Service support ,
--- NOTE | 2019-10-31 15:14 | CM.ED ---
Social Work Responding to stroke alert. Support provided to patient and patient daughter. Hernando Saunders MUSIC LIBRARY ASSISTANT, MARIAH
--- NOTE | 2019-10-31 15:19 | NURSING ---
STROKE ALERT CALLED [phone]
--- NOTE | 2019-10-31 15:25 | RAD_ITS ---
STUDY: X-RAY CHEST REASON FOR EXAM: Female, 84 years old. 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 The lung acosta remain well expanded. There is a persistent elongated rounded or ovoid opacity at the medial right lung base measuring 2.5 x 1.9 cm not substantially changed in size from prior exam or exam of June 05, 2019. This was not clearly seen on radiographs of 2019 secondary to other pathology. Stable cardiomegaly. Normal mediastinum and chandrika. Normal visualized pulmonary arteries. There is atherosclerotic calcification of the aortic arch with tortuosity. There are diffuse degenerative changes of the visualized thoracic spine. There is degenerative osteoarthritis of the bilateral shoulders. There is no demonstrated abnormality of the visualized soft tissue structures of the upper abdomen. RAD/Chest 1 View IMPRESSION: No acute cardiopulmonary findings. Negative for new consolidation, focal atelectasis or a substantial pleural effusion. Stable appearance of a 2.5 x 1.9 cm nodule at the medial right lung base not substantially changed from prior exam of October 25 or June 05, 2019. Although not available for direct comparison, a prior chest radiograph of December 26, 2014 describes a nearly identical nodule suggesting a benign etiology. Electronically Signed: Maggy Waldrop MD at 16:57 EDT , Service support ,
--- NOTE | 2019-10-31 17:12 | NURSING ---
DR MARIA R PEMBERTON
--- NOTE | 2019-10-31 17:50 | ED.RN ---
THIS NURSE CALLED [facility] AND SPOKE TO YOSELIN THE NURSE THAT CARES FOR [place] AND EXPLAINED THAT PT IS BEING ADMITTED TO [facility].
--- NOTE | 2019-10-31 17:59 | PCM.HP.STD ---
History of Present Illness Date of Admission: 10/31/19 Chief Complaint: facial droop The patient is a 84 year old F with an extensive past medical history as outlined was admitted through the ED from a [facility] on 10/31/2019. She was seen at a [facility] at approximately 1340 with left facial droop and drooling as well as dysarthria. No seizure-like activity was witnessed and her last known well was 1315. Patient was seen at the [facility] about 5 days prior to this admission for similar symptoms. At that time a stroke was ruled out. On admission this time, NIH stroke scale was 1 and repeat NIH stroke scale was 0. Patient is on Keppra was suspected seizure. At the time of arrival in the ED, she had no facial droop or drooling or any other symptoms. Patient has a history of a stroke in June 2019 for which she received TPA and was transferred to [facility]. Patient feels fine and has no complaints and tells me that she does not remember why she was brought in as she had no tenderness. She denies any blurred vision, but admits to a mild headache. He denies any chest pain, nausea vomiting or diarrhea. Review of systems otherwise negative. On admission in the ED, temperature was 98.5 Fahrenheit with blood pressure of 144/66, respiratory rate of 20 and pulse rate of 79. She was saturating at 96% on room air. Chemistry showed sodium of 139 with creatinine of 6.92 initial troponin of 0.015. CBC showed hemoglobin of 11.1 with WBC of 6.8 and platelets of 125. CT of the brain showed chronic involutional changes and CTA of the head and neck showed bovine arch with no carotid stenosis and patent vertebral arteries bilaterally and suspect vasospasm in the left posterior cerebral artery possibly consistent with an acute infarct. She has been admitted to be managed for suspected TIA versus stroke. Past Medical History Past Medical History (Chronic Problems): Chronic Problems (Last Reviewed 10/26/19 @ 18:[address] 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 Chronic diastolic (congestive) heart failure (Chronic) I50.32 Essential hypertension (Chronic) I10 Hyperlipidemia (Chronic) E78.5 End-stage renal disease (ESRD) (Chronic) N18.6 Iron deficiency anemia (Chronic) D50.9 Dementia (Chronic) F03.90 Anemia D64.9 Asthma J45.909 Chronic kidney disease (CKD) stage G5/A1, glomerular filtration rate (GFR) less than or equal to 15 mL/min/1.73 square meter and albuminuria creatinine ratio less than 30 mg/g N18.5 Glaucoma H40.9 Iron deficiency anemia D50.9 Obesity (BMI 30.0-34.9) E66.9 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 Acute respiratory failure with hypoxia J96.01 Cerebellar infarct I63.9 Cough (Resolved) R05 Elevated troponin I level (Resolved) R74.8 Metabolic acidosis E87.2 Problem with dialysis access (Resolved) T82.898A Respiratory failure with hypoxia (Resolved) J96.91 Shortness of breath (Resolved) R06.02 DUE TO DIASTOLIC CHF Chronic renal failure, stage 5 (Inactive) N18.5 RENAL FAILURE STAGE 6 (Inactive) NEW DIALYSIS PLACEMENT Allergies erythromycin base Allergy (Verified 10/26/19 13:02) Rash lisinopril Allergy (Verified 10/26/19 13:02) Unknown NSAIDS (Non-Steroidal Anti-Inflamma Allergy (Verified 10/26/19 13:02) Other Salicylates Allergy (Verified 10/26/19 13:02) Other PROTEIN IN URINE DRUG Allergy (Uncoded 10/26/19 13:02) Other Home Medications: Ambulatory Orders Medication Instructions Recorded Ergocalciferol [Vitamin D] 50,000 unit PO QMONTH 07/20/15 Aspirin E.C. [Ecotrin] 81 mg PO DAILY@0800 #30 tab 07/22/15 Timolol 0.5% [Timoptic] 1 drp EACH EYE BID 11/26/15 Atorvastatin Calcium [Lipitor] 40 mg PO QHS #30 tab 02/02/18 Calcium Acetate 667 mg PO TIDCM 07/14/19 levothyroxine 100 mcg tablet 100 mcg PO DAILY 07/31/19 Amlodipine [Norvasc] 5 mg PO SUMOWEFR 10/26/19 Budesonide/Formoterol 160/4.5 1 puff INHALATION BID 10/26/19 [Symbicort 160/4.5 Mcg Inhaler (SP)] Folic Acid/Vitamin B Comp W-C 1 cap PO DAILY 10/26/19 [Nephrocaps, Renaphro] Isosorbide Mononitrate [Imdur] 60 mg PO SUMOWEFR 10/26/19 Latanoprost 0.005% [Xalatan 1 drp RIGHT EYE QHS 10/26/19 Opthalmic] Clopidogrel Bisulfate [Plavix] 75 mg PO DAILY 21 Days tab 10/27/19 levETIRAcetam tablet [Keppra 1,000 mg PO DAILY tab 10/29/19 tablet] Surgical History: Surgical History (Last Reviewed 10/26/19 @ 18:[address] Melody Patrick DO) History of loop recorder (Chronic) Onset Date: 07/20/19 Z98.890 s/p left AV fistula creation Onset Date: 02/19/19 Hx of cataract extraction Z98.49 Hx of foot surgery Z98.890 Hx of hysterectomy Z90.710 Hx of thyroidectomy Z98.890 HYPOTHYROIDISM Status post placement of implantable loop recorder (Resolved) Z95.818 Surgical History: cataract, hysterectomy, - - Leg tumor removed, unclear. Foot surgery, neck surgery-type unknown Psychiatric History: Attn. 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 Melody Patrick DO) Mother Colon cancer Hypertension Father Hypertension History Items: Hypertension Paternal Family History: Family History (Last Reviewed 10/26/19 @ 18:[address] Melody Patrick DO) Mother Colon cancer Hypertension Father Hypertension History Items: Hypertension Review of Systems Constitutional: Denies: Chills, Fever, Malaise, Weakness, Weight Change Eyes: Denies: Blurred vision HEENT: Denies: Head Aches, Sinus Congestion, Sinus Drainage Cardiovascular: Denies: Chest Pain, Palpitations Respiratory: Denies: Cough, Shortness of Breath, Shortness of breath at rest, Sputum production Gastrointestinal: Denies: Abdominal Pain, Nausea, Vomiting Genitourinary: Denies: Dysuria Musculoskeletal: Denies: Joint Pain, Joint Tenderness Skin: Denies: Rash, Wounds Neurological: Reports: Headaches. Denies: Blurred vision, Double vision, Change in Speech, Slurred speech, Confusion, Focal weakness, Numbness, Tingling, Tremor, Seizures Psychiatric: Denies: Anxiety, Depression, Homicidal Ideations, Suicidal Ideations Hematologic/ Lymphatic: Denies: Easy Bruising, Easy Bleeding VTE Information - Inpt Only VTE Present on Admission: No VTE Pharm Prophylaxis ordered?: Yes Patient Problems: Active and Suspected Problems (Last Reviewed 10/26/19 @ 18:[address] Melody Patrick, DO) Stroke (Acute) - Physical Exam Vitals/I&O's: Vital Signs Temp Pulse Resp BP Pulse Ox 98.5 F 79 20 H 144/66 H 96 10/31/19 14:34 10/31/19 17:35 10/31/19 17:35 10/31/19 17:35 10/31/19 17:35 Oxygen Delivery Method Room Air Weight: 164 lb 14.492 oz Body Mass Index (BMI) 28.3 Finger Stick Blood Glucose 154 General: Alert, Oriented x3, Cooperative, No apparent distress HEENT: Atraumatic, PERRLA, EOMI, Normocephalic Oral: Moist Mucosa Neck: Supple, No JVD, Negative Carotid Bruits Lungs: Clear to auscultation, Normal air movement, No rhonchi, No wheeze, No rales Cardiovascular: Regular rate, Regular Rhythm, Normal S1, Normal S2, No murmurs Abdomen: Bowel Sounds Present, Soft, Non Tender, Non-Distended, No Hepato-splenomegaly Extremities: No clubbing, No cyanosis, No edema, Capillary Refill Less than 3 Seconds Skin: No rashes, No breakdown Musculoskeletal: No Tenderness to Palpation of Joints or Extremities Lymphatic: No Cervical, Supraclavicular, or Inguinal Adenopathy Neurological: Cranial nerves II-XII grossly intact, Neuro grossly intact, Motor Exam 5/5 strength throughout Psych/Mental Status: Normal Affect, Appropriate, Alert and oriented to time, place, person, mood and affect Laboratory Results 10/31/19 14:23: WBC 6.8, RBC 3.83 L, Hgb 11.1 L, Hct 35.1 L, MCV 91.6, MCH 29.0, MCHC 31.6 L, RDW Std Deviation 47.1 H, RDW Coeff of Lizett 14.2, Plt Count 125 L, MPV 12.1 H, Immature Gran % (Auto) 0.300, Neut % (Auto) 53.0, Lymph % (Auto) 33.2, Stokes % (Auto) 8.0, Eos % (Auto) 4.3, Baso % (Auto) 1.2 H, Absolute Neuts (auto) 3.6, Absolute Lymphs (auto) 2.25, Nucleated RBC % 0 10/31/19 14:23: PT 12.6, INR 1.0, APTT 31.8 10/31/19 14:23: Sodium 139, Potassium 4.6, Chloride 101, Carbon Dioxide 33.0 H, Anion Gap 5, BUN 25 H, Creatinine 6.92 H, Estim Creat Clear Calc 5.32, Est GFR (MDRD) Af Amer 7 L, Est GFR (MDRD) Non-Af 6 L, BUN/Creatinine Ratio 3.6 L, Glucose 109 H, Calcium 9.1, Troponin I < 0.[address] 10/31/19 14:23 IMPRESSION: Chronic involutional changes of the brain. Stable examination. N.B. : The above information has been verbally conveyed by Perfecto Brice to Memo Willy on 10/31/2019 14:32:19 (ET). Electronically Signed: Perfecto Brice, at 14:34 EDT , Service support , ADDENDUM: 10/31/19 1441 IMPRESSION: Chronic involutional changes of the brain. Stable examination. N.B. : The above information has been verbally conveyed by Perfecto Brice to Memo Aguilera on 10/31/2019 14:32:19 (ET). Electronically Signed: Perfecto Brice, at 14:34 EDT , Service support , Head/Neck CTA 10/31/19 15:08 IMPRESSION: 1. Bovine arch. 2. No carotid stenosis. 3. Patent vertebral arteries bilaterally. 4. Suspect vasospasm in the left posterior cerebral artery possibly consistent with an acute infarct. Electronically Signed: Steve Pelayo MD at 16:46 EDT Tel , Service support , Chest X-Ray 10/31/19 15:25 IMPRESSION: No acute cardiopulmonary findings. Negative for new consolidation, focal atelectasis or a substantial pleural effusion. Stable appearance of a 2.5 x 1.9 cm nodule at the medial right lung base not substantially changed from prior exam of October 25 or June 05, 2019. Although not available for direct comparison, a prior chest radiograph of December 26, 2014 describes a nearly identical nodule suggesting a benign etiology. Electronically Signed: aMggy Waldrop MD at 16:57 EDT , Service support , Assessment/Plan All Active Problems (Last Reviewed 10/26/19 @ 18:[address] Melody Patrick, DO) Stroke (Acute) TIA (transient ischemic attack) (Acute) Cough (Resolved) Elevated troponin I level (Resolved) Problem with dialysis access (Resolved) Respiratory failure with hypoxia (Resolved) Shortness of breath (Resolved) Status post placement of implantable loop recorder (Resolved) Left ventricular diastolic dysfunction (Ruled-out) 84 y/o admitted for facial droop and slurred speech which had resolved by time she presented. 1. TIA NIH stroke scale was 1 on admission and was 0 at time of review. CT of the brain showed chronic involutional changes and CTA of the head and neck showed bovine arch with no carotid stenosis and patent vertebral arteries bilaterally with suspected vasospasm in the left posterior cerebral artery possibly consistent with an acute infarct. Patient currently on aspirin and Plavix will add statin. Will continue. Monitor NIH stroke scale. For MRI tomorrow. PT OT consults. Fall precautions. has a loop recorder in place which has not detected any arrhythmias Neuro consult pending MRI results. 2. ESRD: On hemodialysis Tuesdays, and Saturdays. Consult nephrology. 3. CAD: On aspirin, Plavix and Imdur. 4. Hypothyroidism: On Synthroid 5. Seizure disorder: Was recently started on Keppra thousand milligrams daily. 6. Asthma: Stable. Breathing treatments with duo bronchodilators 7. Iron deficiency anemia: stable. DVT prophylaxis: lovenox OBSV E&M: [id number] Initial observation care L2
--- NOTE | 2019-10-31 18:09 | NURSING ---
PCU KORAM STROKE
[2019-10-31] MEDS: Timolol 0.5% 5ML OPTH.BTL 1 DRP EACH EYE (21:01)
[2019-10-31] MEDS: Latanoprost 0.005% 1 Bottle 1 DRP RIGHT EYE (21:01)
[2019-10-31] MEDS: Atorvastatin Calcium 40 MG Tablet PO (21:01)
[2019-10-31] MEDS: Budesonide Respules 0.5 MG/2 ML AMPUL.NEB. INHALATION (22:13)
[2019-10-31] MEDS: Albuterol 2.5 MG/3 ML VIAL.NEB. INHALATION (22:13)
[2019-11-01] VITALS (9 sets, daily range): BP systolic 148–159; BP diastolic 70–76; PULSE 71–81; RESP 16–18; TEMP 36.6–37; O2SAT 94–97; BMI 26.0
[2019-11-01] MEDS: Levothyroxine 100 MCG Tablet PO (06:36)
--- NOTE | 2019-11-01 06:40 | EKG12_ITS ---
Test Reason : CP Blood Pressure : / mmHG Vent. Rate : 078 BPM Atrial Rate : 078 BPM P-R Int : 156 ms QRS Dur : 136 ms QT Int : 408 ms P-R-T Axes : 065 -47 -08 degrees QTc Int : 465 ms Normal sinus rhythm Right bundle branch block Left anterior fascicular block Bifascicular block Abnormal ECG Confirmed by DANISHA SALMON, [place] ([id number]), social media editor RICHIE PARK ([id number]) on 11/07/2019 1:29:31 PM Referred By: MARIA R Confirmed By:CHINA RAMAN MD
--- NOTE | 2019-11-01 06:46 | NURSING ---
PT REPORTS CHEST PAIN WHEN COUGHING TO ARCHITECTURAL ENGINEER. THIS RN ENTERS ROOM AND PT REPORTS CHEST PRESSURE AND LEFT ARM PAIN. CALLED FOR EKG. PT REFUSES TO DO NIH ASSESMENT AT THIS TIME
[2019-11-01 06:48] LABS: Absolute Lymphocyte Count 2.54 X10^3/uL (0.83-4.51); Absolute Neutrophil Count 2.2 X10^3/uL (2.0-7.7); Basophil# 0.09 X10^3/uL; Basophil% 1.6 % (0-1); Eosinophil# 0.29 X10^3/uL; Eosinophils% 5.1 % (0-5); Hematocrit 31.3 % (37-47); Hemoglobin 9.9 g/dL (12.0-15.0); Lymphocyte # 2.54 X10^3/ul (4.0); Lymphocyte % 44.9 % (19-41); Mean Corp Hgb Conc 31.6 g/dL (32-36); Mean Corpuscular Hgb 29.3 pg (27.0-32.0); Mean Corpuscular Volume 92.6 fL (81-99); Monocyte# 0.49 X10^3/uL; Monocyte% 8.7 % (0-10); NRBC Flagged by Analyzer 0 % (0-5); Neutrophil # 2.23 X10^3/uL (2.7-7.7); Neutrophil % 39.3 % (47-70); Platelet Count 112 K/mm3 (150-450); RBC Distribution Width CV 14.3 % (11.6-14.6); RBC Distribution Width SD 47.9 fl (35.1-43.9); Red Blood Count 3.38 M/mm3 (4.2-5.4); White Blood Count 5.7 K/mm3 (4.4-11.0)
--- NOTE | 2019-11-01 07:00 | MRI_ITS ---
STUDY: MRI BRAIN WITHOUT CONTRAST REASON FOR EXAM: Female, 84 years old. tia, lt facial droop, dysarthria TECHNIQUE: Standardized multiplanar fat and water weighted pulse sequences were obtained. COMPARISON: October 26, 2019 FINDINGS: There is moderate cerebral atrophy with widening of the extra-axial spaces and ventricular dilatation. There are multiple white matter hyperintensities, distributed throughout the deep white matter tracts of the cerebral hemispheres, consistent with moderate chronic white matter ischemic changes. Again noted is left temporal and right occipital encephalomalacia and gliosis, consistent with prior insults. Again noted is a left thalamic and bilateral cerebellar foci of encephalomalacia, consistent with the prior insults as well. There is no extra-axial fluid accumulation. Normal flow voids within the major intracranial circulation suggesting patency by spin echo criteria. Normal sella turcica, pituitary gland, infundibular stalk, optic chiasm and hypothalamus. Normal tectal plate and pineal gland. Normal midbrain, bree and medulla. MRI/Brain without Contrast IMPRESSION: No acute intracranial abnormality. Prior cerebral and cerebellar infarcts. Electronically Signed: Charlie Schaefer MD at 9:53 EDT Tel , Service support ,
[2019-11-01] MEDS: Budesonide Respules 0.5 MG/2 ML AMPUL.NEB. INHALATION (07:20)
[2019-11-01] MEDS: Albuterol 2.5 MG/3 ML VIAL.NEB. INHALATION ×2 (07:20→13:13)
[2019-11-01 07:23] LABS: Anion Gap 8 (5-15); BUN 30 mg/dL (7-18); BUN/Creat Ratio 3.7 RATIO (10-20); Calcium,Total 8.5 mg/dL (8.5-10.1); Chloride 99 mmol/L (98-107); Cholesterol 110 mg/dL (200); Creatinine, Serum 8.01 mg/dL (0.55-1.02); EST Glomerular Filtration Rate 5 mL/min (>60); Est Glom Filt Rate - Afr Amer 6 mL/min (>60); Glucose 78 mg/dL (74-106); High Density Lipoprotein 48 mg/dL; Sodium Level 137 mmol/L (136-145); Triglycerides 54 mg/dL; Very Low Density Lipoprotein 11 mg/dL (5-40)
--- NOTE | 2019-11-01 09:31 | CASEMGMT ---
Patient is from [facility], [place]. SW to follow for d/c back to [place]. Deanne LEMUS MSW
[2019-11-01] MEDS: Aspirin E.C. 81 MG Tablet PO (09:45)
[2019-11-01] MEDS: Folic Acid/Vitamin B Comp W-C 1 Capsule 1 CAP PO (09:45)
[2019-11-01] MEDS: Clopidogrel Bisulfate 75 MG Tablet PO (09:45)
[2019-11-01] MEDS: Timolol 0.5% 5ML OPTH.BTL 1 DRP EACH EYE (09:45)
[2019-11-01] MEDS: levETIRAcetam 500 MG Tablet 1000 MG PO (09:45)
--- NOTE | 2019-11-01 09:48 | PCM.CONS.R ---
Consultation - Renal 11/01/19 PCP/ Referring MD: Requesting physician: [] Primary care physician: Dr. Wayne Leahy MD Reason for Consultation:: ESRD TTS - History of Present Illness History of Present Illness: The patient is a 84 year old F with ESRD on HD TTS admitted again for TIA symptoms, left facial droop and drooling as well as dysarthria. No seizure-like activity was witnessed. She is from [place] Went for MRI this morning. At the time of arrival in the ED, she had no facial droop or drooling or any other symptoms. Patient has a history of a stroke in June 2019 for which she received TPA and was transferred to [facility]. Patient is a poor historian, dementia. She denies any chest pain, nausea vomiting or diarrhea. CT of the brain showed chronic involutional changes and CTA suspected vasospasm in the left posterior cerebral artery possibly consistent with an acute infarct but MRI unremarkable from today. Plan is to transfer back to [facility]. - Allergies Allergies: Allergies erythromycin base Allergy (Verified 10/26/19 13:02) Rash lisinopril Allergy (Verified 10/26/19 13:02) Unknown NSAIDS (Non-Steroidal Anti-Inflamma Allergy (Verified 10/26/19 13:02) Other Salicylates Allergy (Verified 10/26/19 13:02) Other PROTEIN IN URINE DRUG Allergy (Uncoded 10/26/19 13:02) Other - Current Medications Current Medications: Current Medications Albuterol Sulfate (Ventolin Aerosols) 2.5 mg INHALATION Q6HWA.RT [facility] Last Admin: 11/01/19 07:20 Dose: 2.5 mg Documented by: Amlodipine Besylate (Norvasc) 5 mg PO SuMoWeFr@1000 [facility] Aspirin (Ecotrin) 81 mg PO DAILY@0800 [facility] Atorvastatin Calcium (Lipitor) 40 mg PO QHS [facility] Last Admin: 10/31/19 21:01 Dose: 40 mg Documented by: Budesonide (Pulmicort Aerosol) 0.5 mg INHALATION Q12H.RT [facility] Last Admin: 11/01/19 07:20 Dose: 0.5 mg Documented by: Calcium Acetate (Phoslo Gel Cap) 667 mg PO TIDCM [facility] Clopidogrel Bisulfate (Plavix) 75 mg PO DAILY [facility] Dextrose (D50w Syringe) 0 gm IV X1 PRN; Protocol PRN Reason: Hypoglycemia Ergocalciferol (Vitamin D) 50,000 unit PO QMONTH [facility] Glucagon () 1 mg IM .X1 PRN PRN Reason: Hypoglycemia Hydralazine HCl (Apresoline Iv) 5 mg IV Q30M PRN PRN Reason: to maintain BP goals Isosorbide Mononitrate (Imdur) 60 mg PO SuMoWeFr@1000 [facility] Labetalol HCl (Trandate) 10 - 20 mg IV Q10M PRN PRN PRN Reason: to maintain BP goals Latanoprost (Xalatan Opthalmic) 1 drop RIGHT EYE QHS [facility] Last Admin: 10/31/19 21:01 Dose: 1 drop Documented by: Levetiracetam (Keppra Tablet) 1,000 mg PO DAILY [facility] Levothyroxine Sodium (Synthroid) 100 mcg PO DAILY@0600 [facility] Last Admin: 11/01/19 06:36 Dose: 100 mcg Documented by: Multivit/Ca Carb/B Cmplx/FA/Prenat (Nephrocaps, Renaphro) 1 capsule PO DAILY [facility] Sodium Chloride () 10 - 40 ml IV UD PRN PRN Reason: SALINE FLUSH Timolol Maleate (Timoptic) 1 drop EACH EYE BID [facility] Last Admin: 10/31/19 21:01 Dose: 1 drop Documented by: - Past Medical History Past Medical History (Chronic Problems): Chronic Problems (Last Reviewed 10/26/19 @ 18:[address] 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 Foot surgery, neck surgery-type unknown - Social History Smoking Status: Never smoker - Family History Maternal Family History: Family History (Last Reviewed 10/26/19 @ 18:[address] Melody Patrick DO) Mother Colon cancer Hypertension Father Hypertension History Items: Hypertension Paternal Family History: Family History (Last Reviewed 10/26/19 @ 18:[address] Melody Patrick DO) Mother Colon cancer Hypertension Father Hypertension History Items: Hypertension Review of Systems Unable to obtain accurate/complete ROS d/t: poor historian, somnolent Patient Problems: Active and Suspected Problems (Last Reviewed 10/26/19 @ 18:[address] Melody Patrick DO) Stroke (Acute) - Physical Exam Vitals/I&O's: Vital Signs Temp Pulse Resp BP Pulse Ox 98.1 F 77 16 159/76 H 94 11/01/19 06:34 11/01/19 07:20 11/01/19 07:20 11/01/19 06:34 11/01/19 07:20 Oxygen Delivery Method Room Air Weight: 68.8 kg Body Mass Index (BMI) 26.0 Finger Stick Blood Glucose 154 Intake and Output for Last 24 Hours 10/30/19 10/31/19 11/01/19 23:59 23:59 23:59 Intake Total 480 / 480 Balance 480 / 480 General: - - poor historian, somnolent Lungs: Clear to auscultation Cardiovascular: Regular rate Extremities: No edema, - - AVF left upper arm Neurological: Slurred Speech Psych/Mental Status: - - drowsy Laboratory Results 10/31/19 14:23: WBC 6.8, RBC 3.83 L, Hgb 11.1 L, Hct 35.1 L, MCV 91.6, MCH 29.0, MCHC 31.6 L, RDW Std Deviation 47.1 H, RDW Coeff of Lizett 14.2, Plt Count 125 L, MPV 12.1 H, Immature Gran % (Auto) 0.300, Neut % (Auto) 53.0, Lymph % (Auto) 33.2, [place] % (Auto) 8.0, Eos % (Auto) 4.3, Baso % (Auto) 1.2 H, Absolute Neuts (auto) 3.6, Absolute Lymphs (auto) 2.25, Nucleated RBC % 0 10/31/19 14:23: PT 12.6, INR 1.0, APTT 31.8 10/31/19 14:23: Sodium 139, Potassium 4.6, Chloride 101, Carbon Dioxide 33.0 H, Anion Gap 5, BUN 25 H, Creatinine 6.92 H, Estim Creat Clear Calc 5.32, Est GFR (MDRD) Af Amer 7 L, Est GFR (MDRD) Non-Af 6 L, BUN/Creatinine Ratio 3.6 L, Glucose 109 H, Calcium 9.1, Troponin I < 0.015 10/31/19 19:23: Troponin I 0.015 10/31/19 22:03: Troponin I < 0.015 11/01/19 06:18: WBC 5.7, RBC 3.38 L, Hgb 9.9 L, Hct 31.3 L, MCV 92.6, MCH 29.3, MCHC 31.6 L, RDW Std Deviation 47.9 H, RDW Coeff of Lizett 14.3, Plt Count 112 L, MPV 12.0, Immature Gran % (Auto) 0.400, Neut % (Auto) 39.3 L, Lymph % (Auto) 44.9 H, Kenedy % (Auto) 8.7, Eos % (Auto) 5.1 H, Baso % (Auto) 1.6 H, Absolute Neuts (auto) 2.2, Absolute Lymphs (auto) 2.54, Nucleated RBC % 0 11/01/19 06:18: Sodium 137, Potassium 5.0, Chloride 99, Carbon Dioxide 30.0, Anion Gap 8, BUN 30 H, Creatinine 8.01 H*, Estim Creat Clear Calc 4.60, Est GFR (MDRD) Af Amer 6 L, Est GFR (MDRD) Non-Af 5 L, BUN/Creatinine Ratio 3.7 L, Glucose 78, Calcium 8.5, Triglycerides 54, Cholesterol 110, LDL Cholesterol 51, VLDL Cholesterol 11, HDL Cholesterol 48 11/01/19 06:18: Troponin I 0.018 Current Medications Albuterol Sulfate (Ventolin Aerosols) 2.5 mg INHALATION Q6HWA.RT [facility] Last Admin: 11/01/19 07:20 Dose: 2.5 mg Documented by: Amlodipine Besylate (Norvasc) 5 mg PO SuMoWeFr@1000 [facility] Aspirin (Ecotrin) 81 mg PO DAILY@0800 [facility] Atorvastatin Calcium (Lipitor) 40 mg PO QHS [facility] Last Admin: 10/31/19 21:01 Dose: 40 mg Documented by: Budesonide (Pulmicort Aerosol) 0.5 mg INHALATION Q12H.RT [facility] Last Admin: 11/01/19 07:20 Dose: 0.5 mg Documented by: Calcium Acetate (Phoslo Gel Cap) 667 mg PO TIDCM [facility] Clopidogrel Bisulfate (Plavix) 75 mg PO DAILY [facility] Dextrose (D50w Syringe) 0 gm IV X1 PRN; Protocol PRN Reason: Hypoglycemia Ergocalciferol (Vitamin D) 50,000 unit PO QMONTH [facility] Glucagon () 1 mg IM .X1 PRN PRN Reason: Hypoglycemia Hydralazine HCl (Apresoline Iv) 5 mg IV Q30M PRN PRN Reason: to maintain BP goals Isosorbide Mononitrate (Imdur) 60 mg PO SuMoWeFr@1000 [facility] Labetalol HCl (Trandate) 10 - 20 mg IV Q10M PRN PRN PRN Reason: to maintain BP goals Latanoprost (Xalatan Opthalmic) 1 drop RIGHT EYE QHS [facility] Last Admin: 10/31/19 21:01 Dose: 1 drop Documented by: Levetiracetam (Keppra Tablet) 1,000 mg PO DAILY [facility] Levothyroxine Sodium (Synthroid) 100 mcg PO DAILY@0600 [facility] Last Admin: 11/01/19 06:36 Dose: 100 mcg Documented by: Multivit/Ca Carb/B Cmplx/FA/Prenat (Nephrocaps, Renaphro) 1 capsule PO DAILY [facility] Sodium Chloride () 10 - 40 ml IV UD PRN PRN Reason: SALINE FLUSH Timolol Maleate (Timoptic) 1 drop EACH EYE BID [facility] Last Admin: 10/31/19 21:01 Dose: 1 drop Documented by: Assessment/Plan All Active Problems (Last Reviewed 10/26/19 @ 18:[address] Melody Patrick, DO) Stroke (Acute) TIA (transient ischemic attack) (Acute) Cough (Resolved) Elevated troponin I level (Resolved) Problem with dialysis access (Resolved) Respiratory failure with hypoxia (Resolved) Shortness of breath (Resolved) Status post placement of implantable loop recorder (Resolved) Left ventricular diastolic dysfunction (Ruled-out) 1. ESRD HD today and TTS 2. CVA/TIA transfer to [facility] 3. HTN stable 4. Anemia jimbo therapy with HD 5. Dementia
[2019-11-01] MEDS: 0.9% Saline Lock 10 ML Syringe IV (10:24)
[2019-11-01] MEDS: Calcium Acetate 667 MG Capsule PO (12:14)
--- NOTE | 2019-11-01 13:22 | CASEMGMT ---
Patient is being transferred to [facility]. SW called Lynda [facility] [place] and let her know this information. Deanne LEMUS MSW
--- NOTE | 2019-11-01 13:49 | PCM.DC.SUM ---
<Elaine Ramirez - Last Filed: 11/01/19 14:03> Discharge Date and Diagnosis Date of Admission: 10/31/19 Date of Discharge: 11/01/19 - Primary Discharge Diagnosis Acute Problems: Active Problems (Last Reviewed 10/26/19 @ 18:[address] Melody Patrick DO) 1. Recurrent TIA 2. Chronic diastolic CHF 3. 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 Iron deficiency anemia/anemia of chronic disease 5. Hypertension 6. Hypothyroidism - Secondary Discharge Diagnosis Chronic Problems: Chronic Problems (Last Reviewed 10/26/19 @ 18:[address] 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 Stable examination. N.B. : The above information has been verbally conveyed by Perfecto Brice to Memo Aguilera on 10/31/2019 14:32:19 (ET). Electronically Signed: Perfecto Brice, at 14:34 EDT , Service support , ADDENDUM: 10/31/19 1441 IMPRESSION: Chronic involutional changes of the brain. Stable examination. N.B. : The above information has been verbally conveyed by Perfecto Brice to Memo Aguilera on 10/31/2019 14:32:19 (ET). Electronically Signed: Perfecto Brice, at 14:34 EDT , Service support , Head/Neck CTA 10/31/19 15:08 IMPRESSION: 1. Bovine arch. 2. No carotid stenosis. 3. Patent vertebral arteries bilaterally. 4. Suspect vasospasm in the left posterior cerebral artery possibly consistent with an acute infarct. Electronically Signed: Steve Pelayo MD at 16:46 EDT Tel , Service support , Chest X-Ray 10/31/19 15:25 IMPRESSION: No acute cardiopulmonary findings. Negative for new consolidation, focal atelectasis or a substantial pleural effusion. Stable appearance of a 2.5 x 1.9 cm nodule at the medial right lung base not substantially changed from prior exam of October 25 or June 05, 2019. Although not available for direct comparison, a prior chest radiograph of December 26, 2014 describes a nearly identical nodule suggesting a benign etiology. Electronically Signed: Maggy Waldrop MD at 16:57 EDT , Service support , Brain MRI 11/01/19 07:00 IMPRESSION: No acute intracranial abnormality. Prior cerebral and cerebellar infarcts. Electronically Signed: Charlie Schaefer MD at 9:53 EDT Tel , Service support , Operations: None Summary of Care Provided: The patient is a 84 year old F admitted 10/31/2019 due to facial droop. 1. Recurrent TIA- Slurred speech/expressive aphasia, left facial droop- history of CVA (06/2019)-Patient was transferred to [facility] June 2019 where she was found to have R M2 occlusion and small right MCA stroke where she received TPA. Brain CT on admission with chronic changes. Stable changes in the left temporal lobe as well as in the medial aspect of the right cerebellar sphere. Continue aspirin, plavix, statin. PT/OT/ST. MRI of brain shows no acute infarct. 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 Echocardiogram demonstrated an EF of 65%, stage I diastolic dysfunction. Patient has loop recorder in place due to recurrent TIA/CVA. Unable to have device interrogated during admission. She has upcoming loop recorder check 11/05/2019. During recent admission, neurology recommended adding Keppra renally dosed 1,000 milligrams once daily for possible focal seizures which could be a sequela to stroke in June. Recommended 24-hour continuous EEG as outpatient at that time. Patient returns 3 days after recent discharge with similar symptoms of recurrent slurred speech, facial droop. Discussed with family given we have no onsite neurology and patient is having recurrent symptoms, patient may benefit from transfer to tertiary facility for further neurologic evaluation. Family agreeable to transfer to [facility] for further neurologic evaluation. 2. Chronic diastolic CHF-stable. Echocardiogram 07/23/2019 demonstrated an EF of 50%. 3. 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 Patrick for dialysis. Tuesday, , Tuesday schedule. 4. Iron deficiency anemia/anemia of chronic disease-stable. 5. Hypertension-stable, continue home amlodipine, isosorbide regimen. 6. Hypothyroidism-continue home Synthroid regimen. General: Alert, Oriented x3, Cooperative HEENT: Atraumatic, PERRLA, EOMI, Normocephalic Neck: Supple, No JVD, Negative Carotid Bruits Lungs: Clear to auscultation, Normal air movement Cardiovascular: Regular rate, Regular Rhythm, Normal S1, Normal S2, No murmurs Abdomen: Bowel Sounds Present, Soft, Non Tender, Non-Distended Extremities: No clubbing, No cyanosis, No edema, Capillary Refill Less than 3 Seconds Skin: No rashes, No breakdown Musculoskeletal: No Tenderness to Palpation of Joints or Extremities Neurological: Cranial nerves II-XII grossly intact, Neuro grossly intact, - - Expressive aphasia Psych/Mental Status: Normal Affect, Appropriate Patient seen and examined prior to discharge. Physical assessment as noted above. Transfer to [facility] for further neurologic evaluation in stable condition. This patient was seen by TOM Clay under the supervision of Dr. Manriquez. - Physical Exam Vitals/I&O's: Vital Signs Temp Pulse Resp BP Pulse Ox 98.6 F 78 16 154/71 H 95 11/01/19 10:24 11/01/19 13:13 11/01/19 13:13 11/01/19 10:24 11/01/19 10:24 Oxygen Delivery Method Room Air Weight: 151 lb 10.848 oz Body Mass Index (BMI) 26.0 Finger Stick Blood Glucose 154 Intake and Output for Last 24 Hours 10/30/19 10/31/19 11/01/19 23:59 23:59 23:59 Intake Total 510 / 510 Balance 510 / 510 Laboratory Results 10/31/19 14:23: WBC 6.8, RBC 3.83 L, Hgb 11.1 L, Hct 35.1 L, MCV 91.6, MCH 29.0, MCHC 31.6 L, RDW Std Deviation 47.1 H, RDW Coeff of Lziett 14.2, Plt Count 125 L, MPV 12.1 H, Immature Gran % (Auto) 0.300, Neut % (Auto) 53.0, Lymph % (Auto) 33.2, [place] % (Auto) 8.0, Eos % (Auto) 4.3, Baso % (Auto) 1.2 H, Absolute Neuts (auto) 3.6, Absolute Lymphs (auto) 2.25, Nucleated RBC % 0 10/31/19 14:23: PT 12.6, INR 1.0, APTT 31.8 10/31/19 14:23: Sodium 139, Potassium 4.6, Chloride 101, Carbon Dioxide 33.0 H, Anion Gap 5, BUN 25 H, Creatinine 6.92 H, Estim Creat Clear Calc 5.32, Est GFR (MDRD) Af Amer 7 L, Est GFR (MDRD) Non-Af 6 L, BUN/Creatinine Ratio 3.6 L, Glucose 109 H, Calcium 9.1, Troponin I < 0.015 10/31/19 19:23: Troponin I 0.015 10/31/19 22:03: Troponin I < 0.015 11/01/19 06:18: WBC 5.7, RBC 3.38 L, Hgb 9.9 L, Hct 31.3 L, MCV 92.6, MCH 29.3, MCHC 31.6 L, RDW Std Deviation 47.9 H, RDW Coeff of Lizett 14.3, Plt Count 112 L, MPV 12.0, Immature Gran % (Auto) 0.400, Neut % (Auto) 39.3 L, Lymph % (Auto) 44.9 H, [place] % (Auto) 8.7, Eos % (Auto) 5.1 H, Baso % (Auto) 1.6 H, Absolute Neuts (auto) 2.2, Absolute Lymphs (auto) 2.54, Nucleated RBC % 0 11/01/19 06:18: Sodium 137, Potassium 5.0, Chloride 99, Carbon Dioxide 30.0, Anion Gap 8, BUN 30 H, Creatinine 8.01 H*, Estim Creat Clear Calc 4.60, Est GFR (MDRD) Af Amer 6 L, Est GFR (MDRD) Non-Af 5 L, BUN/Creatinine Ratio 3.7 L, Glucose 78, Calcium 8.5, Triglycerides 54, Cholesterol 110, LDL Cholesterol 51, VLDL Cholesterol 11, HDL Cholesterol 48 11/01/19 06:18: Troponin I 0.018 11/01/19 09:58: Troponin I < 0.015 11/01/19 12:55: Troponin I < 0.015 Current Medications Albuterol Sulfate (Ventolin Aerosols) 2.5 mg INHALATION Q6HWA.RT [facility] Last Admin: 11/01/19 13:13 Dose: 2.5 mg Documented by: Amlodipine Besylate (Norvasc) 5 mg PO SuMoWeFr@1000 [facility] Aspirin (Ecotrin) 81 mg PO DAILY@0800 [facility] Last Admin: 11/01/19 09:45 Dose: 81 mg Documented by: Atorvastatin Calcium (Lipitor) 40 mg PO QHS [facility] Last Admin: 10/31/19 21:01 Dose: 40 mg Documented by: Budesonide (Pulmicort Aerosol) 0.5 mg INHALATION Q12H.RT [facility] Last Admin: 11/01/19 07:20 Dose: 0.5 mg Documented by: Calcium Acetate (Phoslo Gel Cap) 667 mg PO TIDCM [facility] Last Admin: 11/01/19 12:14 Dose: 667 mg Documented by: Clopidogrel Bisulfate (Plavix) 75 mg PO DAILY [facility] Last Admin: 11/01/19 09:45 Dose: 75 mg Documented by: Dextrose (D50w Syringe) 0 gm IV X1 PRN; Protocol PRN Reason: Hypoglycemia Ergocalciferol (Vitamin D) 50,000 unit PO QMONTH [facility] Glucagon () 1 mg IM .X1 PRN PRN Reason: Hypoglycemia Hydralazine HCl (Apresoline Iv) 5 mg IV Q30M PRN PRN Reason: to maintain BP goals Isosorbide Mononitrate (Imdur) 60 mg PO SuMoWeFr@1000 [facility] Labetalol HCl (Trandate) 10 - 20 mg IV Q10M PRN PRN PRN Reason: to maintain BP goals Latanoprost (Xalatan Opthalmic) 1 drop RIGHT EYE QHS [facility] Last Admin: 10/31/19 21:01 Dose: 1 drop Documented by: Levetiracetam (Keppra Tablet) 1,000 mg PO DAILY [facility] Last Admin: 11/01/19 09:45 Dose: 1,000 mg Documented by: Levothyroxine Sodium (Synthroid) 100 mcg PO DAILY@0600 [facility] Last Admin: 11/01/19 06:36 Dose: 100 mcg Documented by: Multivit/Ca Carb/B Cmplx/FA/Prenat (Nephrocaps, Renaphro) 1 capsule PO DAILY [facility] Last Admin: 11/01/19 09:45 Dose: 1 capsule Documented by: Sodium Chloride () 10 - 40 ml IV UD PRN PRN Reason: SALINE FLUSH Last Admin: 11/01/19 10:24 Dose: 10 ml Documented by: Timolol Maleate (Timoptic) 1 drop EACH EYE BID [facility] Last Admin: 11/01/19 09:45 Dose: 1 drop Documented by: Home Medications: Medications to take at Discharge Ergocalciferol [Vitamin D] 50,000 unit PO QMONTH 07/20/15 Aspirin E.C. [Ecotrin] 81 mg PO DAILY@0800 #30 tab 07/22/15 Timolol 0.5% [Timoptic] 1 drp EACH EYE BID 11/26/15 Atorvastatin Calcium [Lipitor] 40 mg PO QHS #30 tab 02/02/18 Calcium Acetate 667 mg PO TIDCM 07/14/19 levothyroxine 100 mcg tablet 100 mcg PO DAILY 07/31/19 Amlodipine [Norvasc] 5 mg PO SUMOWEFR 10/26/19 Budesonide/Formoterol 160/4.5 [Symbicort 160/4.5 Mcg Inhaler (SP)] 1 puff INHALATION BID 10/26/19 Folic Acid/Vitamin B Comp W-C [Nephrocaps, Renaphro] 1 cap PO DAILY 10/26/19 Isosorbide Mononitrate [Imdur] 60 mg PO SUMOWEFR 10/26/19 Latanoprost 0.005% [Xalatan Opthalmic] 1 drp RIGHT EYE QHS 10/26/19 Clopidogrel Bisulfate [Plavix] 75 mg PO DAILY 21 Days tab 10/27/19 levETIRAcetam tablet [Keppra tablet] 1,000 mg PO DAILY tab 10/29/19 Primary Care Physician: Wayne Leahy Chi, MD [Primary Care Provider] - Disposition: Acute care Hospital Minutes spent on discharge:: 35 Patient Condition:: Stable Medical Necessity - Tobacco Use Smoking Status: Never smoker Tobacco Use: Non-smoker Meaningful Use Info Meaningful Use Diagnoses (Choose all that apply): None applicable <Jim Jerez - Last Filed: 11/01/19 15:29> Discharge Date and Diagnosis - Secondary Discharge Diagnosis Chronic Problems: Chronic Problems (Last Reviewed 10/26/19 @ 18:[address] 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 Data reviewed. I agree with the above note by the nurse practitioner. The patient is a 84 year old F presents with slurred speech, expressive aphasia and left facial droop. Patient has had similar episodes of this. And had 2 recent admissions within the past week. Patient has had stroke before and evaluated at [facility]. Given the frequent hospitalizations is at would be worthwhile for the patient to be evaluated by an onsite neurologist. Family was updated and patient will be transferred to the [facility]. When I had evaluated the patient, as explained to me that the patient was earlier speaking with the nurse and then by the time I had arrived she was deciding not to speak according to the nurse. Patient did open eyes to voice and did withdraw to pain but was nonverbal. Therefore it is unclear if these are actually neurologic events or some psychiatric component. May be worthwhile for the patient to be evaluated by geriatric psych service. [] - Physical Exam Vitals/I&O's: Vital Signs Temp Pulse Resp BP Pulse Ox 37.0 C 80 16 154/71 H 95 11/01/19 10:24 11/01/19 14:58 11/01/19 13:13 11/01/19 10:24 11/01/19 10:24 Oxygen Delivery Method Room Air Weight: 68.8 kg Body Mass Index (BMI) 26.0 Finger Stick Blood Glucose 154 Intake and Output for Last 24 Hours 10/30/19 10/31/19 11/01/19 23:59 23:59 23:59 Intake Total 510 / 510 Balance 510 / 510 General: - - opens eyes to voice. withdraws to pain. HEENT: Atraumatic, Normocephalic Oral: Moist Mucosa, No Gingival or Mucosal Lesions/ Ulcerations Neck: No Nodes, Thyroid Normal Size and Texture Lungs: Clear to auscultation, Normal air movement, No rhonchi, No wheeze Cardiovascular: Regular rate, Regular Rhythm, Normal S1, Normal S2, No murmurs Abdomen: Bowel Sounds Present, Soft, Non Tender, Non-Distended, No Hepato-splenomegaly Extremities: No edema, No Calf Tenderness Skin: No rashes, No breakdown Laboratory Results 10/31/19 19:23: Troponin I 0.015 10/31/19 22:03: Troponin I < 0.015 11/01/19 06:18: WBC 5.7, RBC 3.38 L, Hgb 9.9 L, Hct 31.3 L, MCV 92.6, MCH 29.3, MCHC 31.6 L, RDW Std Deviation 47.9 H, RDW Coeff of Lizett 14.3, Plt Count 112 L, MPV 12.0, Immature Gran % (Auto) 0.400, Neut % (Auto) 39.3 L, Lymph % (Auto) 44.9 H, [place] % (Auto) 8.7, Eos % (Auto) 5.1 H, Baso % (Auto) 1.6 H, Absolute Neuts (auto) 2.2, Absolute Lymphs (auto) 2.54, Nucleated RBC % 0 11/01/19 06:18: Sodium 137, Potassium 5.0, Chloride 99, Carbon Dioxide 30.0, Anion Gap 8, BUN 30 H, Creatinine 8.01 H*, Estim Creat Clear Calc 4.60, Est GFR (MDRD) Af Amer 6 L, Est GFR (MDRD) Non-Af 5 L, BUN/Creatinine Ratio 3.7 L, Glucose 78, Calcium 8.5, Triglycerides 54, Cholesterol 110, LDL Cholesterol 51, VLDL Cholesterol 11, HDL Cholesterol 48 11/01/19 06:18: Troponin I 0.018 11/01/19 09:58: Troponin I < 0.015 11/01/19 12:55: Troponin I < 0.015 Current Medications Albuterol Sulfate (Ventolin Aerosols) 2.5 mg INHALATION Q6HWA.RT [facility] Last Admin: 11/01/19 13:13 Dose: 2.5 mg Documented by: Amlodipine Besylate (Norvasc) 5 mg PO SuMoWeFr@1000 [facility] Aspirin (Ecotrin) 81 mg PO DAILY@0800 [facility] Last Admin: 11/01/19 09:45 Dose: 81 mg Documented by: Atorvastatin Calcium (Lipitor) 40 mg PO QHS [facility] Last Admin: 10/31/19 21:01 Dose: 40 mg Documented by: Budesonide (Pulmicort Aerosol) 0.5 mg INHALATION Q12H.RT [facility] Last Admin: 11/01/19 07:20 Dose: 0.5 mg Documented by: Calcium Acetate (Phoslo Gel Cap) 667 mg PO TIDCM [facility] Last Admin: 11/01/19 12:14 Dose: 667 mg Documented by: Clopidogrel Bisulfate (Plavix) 75 mg PO DAILY [facility] Last Admin: 11/01/19 09:45 Dose: 75 mg Documented by: Dextrose (D50w Syringe) 0 gm IV X1 PRN; Protocol PRN Reason: Hypoglycemia Ergocalciferol (Vitamin D) 50,000 unit PO QMONTH [facility] Glucagon () 1 mg IM .X1 PRN PRN Reason: Hypoglycemia Hydralazine HCl (Apresoline Iv) 5 mg IV Q30M PRN PRN Reason: to maintain BP goals Isosorbide Mononitrate (Imdur) 60 mg PO SuMoWeFr@1000 [facility] Labetalol HCl (Trandate) 10 - 20 mg IV Q10M PRN PRN PRN Reason: to maintain BP goals Latanoprost (Xalatan Opthalmic) 1 drop RIGHT EYE QHS [facility] Last Admin: 10/31/19 21:01 Dose: 1 drop Documented by: Levetiracetam (Keppra Tablet) 1,000 mg PO DAILY [facility] Last Admin: 11/01/19 09:45 Dose: 1,000 mg Documented by: Levothyroxine Sodium (Synthroid) 100 mcg PO DAILY@0600 [facility] Last Admin: 11/01/19 06:36 Dose: 100 mcg Documented by: Multivit/Ca Carb/B Cmplx/FA/Prenat (Nephrocaps, Renaphro) 1 capsule PO DAILY [facility] Last Admin: 11/01/19 09:45 Dose: 1 capsule Documented by: Sodium Chloride () 10 - 40 ml IV UD PRN PRN Reason: SALINE FLUSH Last Admin: 11/01/19 10:24 Dose: 10 ml Documented by: Timolol Maleate (Timoptic) 1 drop EACH EYE BID [facility] Last Admin: 11/01/19 09:45 Dose: 1 drop Documented by: Disposition: Acute care Hospital Minutes spent on discharge:: 35 Patient Condition:: Stable Medical Necessity - Tobacco Use Smoking Status: Never smoker Tobacco Use: Non-smoker Meaningful Use Info Meaningful Use Diagnoses (Choose all that apply): None applicable Inpatient E&M: 47059 Disch Hosp
--- NOTE | 2019-11-01 14:09 | NURSING ---
Called and gave report to Jayleen ANDERSON at [facility]
== END 2019-11-01 13:54 | disposition short-term general hospital (02) ==
LOC: ED 17:51 → PCU 18:55
PROVIDERS: Hospitalist; Admitting Provider Student in an Organized Health Care Education/Training Program; Emergency Provider Emergency Medicine; PCP Family Medicine Geriatric Medicine
DX: G45.9 Transient cerebral ischemic attack, unspecified (principal); I13.2 Hypertensive heart and chronic kidney disease with heart failure and with stage 5 chronic kidney disease, or end stage renal disease; I50.32 Chronic diastolic (congestive) heart failure; D63.8 Anemia in other chronic diseases classified elsewhere; R47.1 Dysarthria and anarthria; R29.810 Facial weakness; E78.5 Hyperlipidemia, unspecified; R29.701 NIHSS score 1; I45.2 Bifascicular block; N18.6 End stage renal disease; D50.9 Iron deficiency anemia, unspecified; J45.909 Unspecified asthma, uncomplicated; I25.10 Atherosclerotic heart disease of native coronary artery without angina pectoris; E03.9 Hypothyroidism, unspecified; G40.909 Epilepsy, unspecified, not intractable, without status epilepticus; F03.90 Unspecified dementia, unspecified severity, without behavioral disturbance, psychotic disturbance, mood disturbance, and anxiety; Z79.82 Long term (current) use of aspirin; Z99.2 Dependence on renal dialysis; Z79.02 Long term (current) use of antithrombotics/antiplatelets; Z79.899 Other long term (current) drug therapy
CPT/HCPCS: 36415; 70450; 70496; 70498; 70551; 71045; 80048; 80061; 84484; 85025; 85610; 85730; 92610; 93005; 94640; 94762; 97162; 97166; 99218; 99285; Q9967; A4216; G0378

== ENCOUNTER → 2019-12-05 16:01 | Outpatient (CLI) | payer MEDICARE, MEDICAID, SELFPAY ==
[2019-11-01 10:39] VITALS: BMI 26.0
[2019-12-05 16:43] LABS: Vitamin D,25 Hydroxy 73.7 ng/mL
== END ==
PROVIDERS: PCP Family Medicine Geriatric Medicine; Visit Provider Family Medicine Geriatric Medicine
DX: I10 Essential (primary) hypertension (principal); E55.9 Vitamin D deficiency, unspecified
CPT/HCPCS: 36415; 82306

== ENCOUNTER 2019-12-15 10:27 | Emergency (ER) | payer MEDICARE, MEDICAID, SELFPAY ==
[2019-11-01 10:39] VITALS: BMI 26.0
[2019-12-15] VITALS (10 sets, daily range): BP systolic 120–165; BP diastolic 59–88; PULSE 77–90; RESP 16–18; TEMP 36.6; O2SAT 96–100; BMI 29.2
--- NOTE | 2019-12-15 10:30 | EKG12_ITS ---
Test Reason : STROKE TEAM Blood Pressure : / mmHG Vent. Rate : 085 BPM Atrial Rate : 085 BPM P-R Int : 148 ms QRS Dur : 132 ms QT Int : 412 ms P-R-T Axes : 058 -59 -11 degrees QTc Int : 490 ms Normal sinus rhythm Right bundle branch block Left anterior fascicular block Bifascicular block Inferior infarct , age undetermined Abnormal ECG Confirmed by ROHITH SALMON, JOSE ELIAS ([id number]), art editor SAMI PARRISH ([id number]) on 12/17/2019 1:11:53 PM Referred By: LM Confirmed By:JOSE ELIAS NEWBERRY MD
--- NOTE | 2019-12-15 10:34 | NURSING ---
FAXED FACESHEET TO [facility]
--- NOTE | 2019-12-15 10:35 | CT_ITS ---
STUDY: CT BRAIN WITHOUT CONTRAST REASON FOR EXAM: Female, 84 years old. Patient on dialysis, left-sided weakness and aphasia RADIATION DOSAGE (If Supplied By Facility): CTDIvol = ( 44.99 ) mGy, DLP = ( 796.11 ) mGycm TECHNIQUE: Transaxial CT imaging of the brain was performed without administration of intravenous contrast material. Individualized dose optimization techniques were used for this CT. COMPARISON: 06-01-2019 FINDINGS: Normal soft tissue structures. Normal calvarium. There is mild cerebral atrophy with widening of the extra-axial spaces and ventricular dilatation. There are areas of decreased attenuation within the white matter tracts of the supratentorial brain, consistent with microvascular disease changes. Old infarct in the right occipital lobe and left temporal region are again seen. There is a small old lacunar infarct in the left thalamus. Normal brainstem. Normal cerebellum. There is no intracranial hemorrhage. There are no findings of an acute ischemic infarction. Normal visualized paranasal sinuses. CT/Brain/Head without Contrast IMPRESSION: Chronic involutional changes of the brain. Old infarcts unchanged. No acute intracranial process. N.B. : The above information has been verbally conveyed by Trever Esquivel MD to Jim Hyatt DO, on 12/15/2019 10:48:38 (ET). Electronically Signed: Trever Esquivel MD at 10:49 EDT Tel , Service support ,
--- NOTE | 2019-12-15 10:38 | CT_ITS ---
STUDY: CTA HEAD AND NECK WITH CONTRAST REASON FOR EXAM: Female, 84 years old. Stroke alert, left sided weakness and aphasia RADIATION DOSAGE (If Supplied By Facility): CTDIvol = ( 10.52 ) mGy, DLP = ( 612.60 ) mGycm TECHNIQUE: CT angiography was performed with a multi-detector CT scanner. Data acquisition was obtained from the skull base through the vertex following intravenous administration of 100ML ISOVUE 370. MIP images were reconstructed from the axial data set. Post-processing of the angiographic images was performed, with multiplanar reformation and 3D reconstruction. Individualized dose optimization techniques were used for this CT. COMPARISON: 10-31-2019 FINDINGS: Normal bilateral petrous carotid arteries. Normal right cavernous carotid artery with a normal supraclinoid bifurcation. Normal left cavernous carotid artery with a normal supraclinoid bifurcation. Normal right A1 segments of the anterior cerebral artery. Normal left A1 segments of the anterior cerebral artery. Normal intact anterior communicating artery (ACOM). Normal bilateral A2 segments of the anterior cerebral arteries. Normal right M1 and M2 segments of the middle cerebral arteries, with a normal M1 bifurcation. Normal left M1 and M2 segments of the middle cerebral arteries, with a normal M1 bifurcation. Normal right posterior communicating artery (PCOM). Normal left posterior communicating artery (PCOM). Normal bilateral vertebral arteries. Normal basilar artery with a normal basilar bifurcation. The visualized bilateral superior cerebellar (SCA) arteries are normal. Normal proximal right posterior cerebral artery. The distal aspect of the right posterior cerebral artery is not visualized. Focal areas of narrowing in the distal left posterior cerebral artery again seen unchanged. There is no demonstrated definite aneurysm of the yocha dehe of [place]. There is no demonstrated acute abnormality of the visualized brain. AORTIC ARCH: There is a bovine origin of the great vessels arising from the aortic arch with a common origin of the brachiocephalic and left common carotid artery. Normal origin of the left subclavian artery. Normal origins of the brachiocephalic, left common carotid, and left subclavian arteries. RIGHT CAROTID ARTERIES: Normal right common carotid artery (CCA). There is mild atherosclerotic plaque formation without significant narrowing of the right carotid bulb. Normal origin of the right internal carotid (ICA) artery without a hemodynamically significant stenosis. Normal visualized cervical portion of the right internal carotid artery. Normal origin of the right external carotid artery (ECA). LEFT CAROTID ARTERIES: Normal left common carotid artery (CCA). Normal left common carotid bulb. Normal origin of the left internal carotid (ICA) artery without a hemodynamically significant stenosis. Normal visualized cervical portion of the left internal carotid artery. Normal origin of the left external carotid artery (ECA). VERTEBRAL ARTERIES: Normal bilateral vertebral arteries. CT/CTA Head AND Neck W/ Contrast IMPRESSION: 1. No significant change since previous examination. 2. Focal areas of narrowing of the posterior cerebral artery unchanged since previous exam. 3. The distal right posterior cerebral artery is not clearly visualized. 4. Otherwise no significant stenosis is seen. N.B. : The above information has been verbally conveyed by Trever Esquivel MD to Jim Hyatt DO on 12/15/2019 11:03:24 (ET). Electronically Signed: Trever Esquivel MD at 11:05 EDT Tel , Service support ,
--- NOTE | 2019-12-15 10:44 | NURSING ---
STROKE ALERT [id number]
--- NOTE | 2019-12-15 10:46 | ED.DCSUM_ITS ---
- ER Visit Summary Date of Service: 12/15/19 Chief Complaint: Stroke History of Present Illness: The patient is a 84 F who presents with stroke symptoms that began approximately 25 minutes prior to arrival. Patient was at dialysis started having speech difficulty along with left sided weakness. Patient is nonverbal and is a poor historian. Patient has had similar symptoms in June of this year. Patient was given TPA at that time for an M2 occlusion and transferred to [facility]. Patient has had 3 similar episodes since that time. Patient was transferred back to [facility] on the first visit after the TPA. Patient was admitted here twice for TIA work-ups after the other 2 episodes. Physical Examination: Vital signs are stable except for slightly elevated blood pressure of 153/61. Patient is afebrile. Patient is in no acute distress. Patient is able to shake her head yes and no and apparently has normal sensation on the right but no sensation on the left. Strength is 0/5 in the left upper and lower extremities. Strength is 5/5 in the right upper and lower extremities. Patient is aphasic. I do not appreciate any facial weakness. Patient does have left-sided neglect. Heart was regular rate and rhythm. Lungs are clear and equal bilaterally. Abdomen is soft. Bowel sounds are normal. There is no tenderness. Test Results: CT scan of the brain was obtained. There are old infarcts but no acute infarct. CTA of the head neck was obtained. There is some stenosis but no acute occlusion. These were interpreted by the radiologist and reviewed by myself. EKG showed normal sinus rhythm with a rate of 85. There is a bifascicular block. This was unchanged compared to previous EKG dated 11/01/2019. CBC was essentially within normal limits except for a mild anemia with a hemoglobin of 10.8. PT with INR and PTT were normal. Basic metabolic profile showed a creatinine of 3.68 but was otherwise essentially within normal limits. Troponin was normal. Emergency Department Course and Treatment: Case was discussed with the stroke neurologist, Dr. Sherman at [facility]. He recommended giving the patient TPA and transferring the patient to [facility]. Patient was starting to talk and move her left side on reevaluation prior to administration of TPA. Daughter was at the bedside and is agreeable with giving the patient TPA. She is also the patient's power of compliance review officer. Disposition: Transfer to [facility] Impression: Acute stroke Critical care time: 45 minutes. This was time spent obtaining history, performing physical examination, documenting, interpreting test results, discussion with consultants, and arranging transfer. This note was generated with [employer] dictation software. It may contain incorrect words, spelling, and punctuation that were not noted in review of the chart prior to signing ED Disposition - Plan for ED Patient: Disposition: [facility] Diagnosis: Stroke Referrals: Wayne Leahy Chi, MD [Primary Care Provider] -
[2019-12-15 10:56] LABS: Absolute Lymphocyte Count 1.61 X10^3/uL (0.83-4.51); Absolute Neutrophil Count 3.1 X10^3/uL (2.0-7.7); Basophil# 0.05 X10^3/uL; Basophil% 0.9 % (0-1); Eosinophils% 3.6 % (0-5); Hematocrit 34.9 % (37-47); Hemoglobin 10.8 g/dL (12.0-15.0); Lymphocyte # 1.61 X10^3/ul (4.0); Lymphocyte % 29.1 % (19-41); Mean Corp Hgb Conc 30.9 g/dL (32-36); Mean Corpuscular Hgb 28.7 pg (27.0-32.0); Mean Corpuscular Volume 92.8 fL (81-99); Mean Platelet Vol. 11.5 fl (6.2-12.0); Monocyte# 0.54 X10^3/uL; Monocyte% 9.7 % (0-10); NRBC Flagged by Analyzer 0 % (0-5); Neutrophil # 3.12 X10^3/uL (2.7-7.7); Neutrophil % 56.3 % (47-70); Platelet Count 127 K/mm3 (150-450); RBC Distribution Width CV 15.1 % (11.6-14.6); RBC Distribution Width SD 50.3 fl (35.1-43.9); Red Blood Count 3.76 M/mm3 (4.2-5.4); White Blood Count 5.5 K/mm3 (4.4-11.0)
[2019-12-15 11:02] LABS: International Normalized Ratio 1.1; Prothrombin Time (Protime)PT. 13.3 SECONDS (11.7-14.9)
[2019-12-15 11:03] LABS: Partial Thromboplast Time 36.2 Seconds (24.1-36.2)
[2019-12-15 11:12] LABS: Anion Gap 4 (5-15); BUN 16 mg/dL (7-18); BUN/Creat Ratio 4.3 RATIO (10-20); Chloride 96 mmol/L (98-107); Creatinine, Serum 3.68 mg/dL (0.55-1.02); EST Glomerular Filtration Rate 13 mL/min (>60); Est Glom Filt Rate - Afr Amer 15 mL/min (>60); Estimated Creatinine Clearance 9.16 ml/min; Glucose 83 mg/dL (74-106); Potassium 4.7 mmol/L (3.5-5.1); Sodium Level 135 mmol/L (136-145)
--- NOTE | 2019-12-15 11:14 | NURSING ---
1107 CALLED [facility], WAITING FOR ETA
--- NOTE | 2019-12-15 11:27 | ED.RN ---
AVENUES UPDATED ON PATIENT STATUS
--- NOTE | 2019-12-15 11:35 | RAD_ITS ---
STUDY: X-RAY CHEST REASON FOR EXAM: Female, 84 years old. Left-sided weakness and aphasia TECHNIQUE: Single AP portable view of the chest. COMPARISON: 10-31-2019 FINDINGS: Persistent right basilar nodule unchanged since prior exam. No new infiltrate is seen. There is no demonstrated pleural abnormality. There is mild cardiac enlargement. Normal mediastinum and chandrika. Normal visualized pulmonary arteries. There is atherosclerotic tortuosity of the aortic arch and descending thoracic aorta. The osseous structures are unchanged. There is no demonstrated abnormality of the visualized soft tissue structures of the upper abdomen. RAD/Chest 1 View IMPRESSION: No significant change. No new infiltrate is seen. Persistent right basilar nodule unchanged Electronically Signed: Trever Esquivel MD at 11:46 EDT Tel , Service support ,
[2019-12-15] MEDS: 0.9% Normal Saline 1,000 ML 100 ML IV (11:47)
--- NOTE | 2019-12-15 11:47 | ED.RN ---
1145--[facility] ARRIVES. CARE TO [facility] TEAM
== END 2019-12-15 11:54 | disposition short-term general hospital (02) ==
PROVIDERS: Emergency Provider Emergency Medicine; PCP Family Medicine Geriatric Medicine
DX: I63.9 Cerebral infarction, unspecified (principal); G81.94 Hemiplegia, unspecified affecting left nondominant side; R47.01 Aphasia; I13.2 Hypertensive heart and chronic kidney disease with heart failure and with stage 5 chronic kidney disease, or end stage renal disease; N18.6 End stage renal disease; I50.9 Heart failure, unspecified; D64.9 Anemia, unspecified; Z99.2 Dependence on renal dialysis; F03.90 Unspecified dementia, unspecified severity, without behavioral disturbance, psychotic disturbance, mood disturbance, and anxiety; Z79.82 Long term (current) use of aspirin; Z79.899 Other long term (current) drug therapy; Z86.73 Personal history of transient ischemic attack (TIA), and cerebral infarction without residual deficits
CPT/HCPCS: 70450; 70496; 70498; 71045; 80048; 84484; 85025; 85610; 85730; 93005; 96365; 99285; J2997; J7030; Q9967; A4216

== ENCOUNTER 2020-09-11 11:39 | Emergency (ER) | payer MEDICARE, MEDICAID, SELFPAY ==
[2020-03-12 11:57] VITALS: BMI 28.5
[2020-09-11 11:41] VITALS: BP 146/63; PULSE 75; RESP 16; TEMP 36.8; O2SAT 98; BMI 28.5
--- NOTE | 2020-09-11 12:07 | ED.VISSUMM ---
- ER Visit Summary Date of Service: 09/11/20 Chief Complaint: Bleeding from left arm fistula post dialysis History of Present Illness: The patient is a 85 F history of end-stage renal disease with dialysis. Today she had a normal dialysis for run. After dialysis they were unable to get bleeding stopped from her left arm fistula. She denies being on any blood thinners. They do treat her with heparin during her treatment. Patient denies any other complaints. Physical Examination: Well-appearing older female. Vital signs stable and afebrile. H EENT exam unremarkable. Lungs clear to auscultation bilaterally. Heart regular rhythm no murmur. Abdomen soft nontender normal bowel sounds no peritoneal signs. Patient moving all 4 extremities. No edema. She has a bandage on her left upper arm area. She is a good thrill in the fistula. Currently there is no blood or active bleeding. Left hand is neurovascular intact. Neurologically she is awake and alert with no focal motor deficits. Test Results: None Emergency Department Course and Treatment: Patient had bleeding after dialysis. It is since resolved. Currently she has no active bleeding. She has been in the emergency department almost 1/2 an hour and currently has no bleeding and will be discharged. Treatment Plan: Return if bleeding returns and unable to stop with direct pressure. Disposition: Discharge Impression: Bleeding from left arm dialysis fistula site resolved History of end-stage renal disease. This note was generated with [employer] dictation software. It may contain incorrect words, spelling, and punctuation that were not noted in review of the chart prior to signing ED Disposition - Plan for ED Patient: Referrals: Wayne Leahy Chi, MD [Primary Care Provider] -
--- NOTE | 2020-09-11 12:09 | ED.DEP ---
ED Disposition - Plan for ED Patient: Disposition: Home or Assisted Living Referrals: Wayne Leahy Chi, MD [Primary Care Provider] - As Needed Additional Instructions: If your left arm fistula starts bleeding again hold direct pressure for 20 minutes. If unable to get the bleeding to stop return. Leave the bandage on until tomorrow.
== END 2020-09-11 12:52 | disposition home or self-care (01) ==
PROVIDERS: Emergency Provider Emergency Medicine; PCP Family Medicine Geriatric Medicine
DX: T82.838A Hemorrhage due to vascular prosthetic devices, implants and grafts, initial encounter (principal); Y83.8 Other surgical procedures as the cause of abnormal reaction of the patient, or of later complication, without mention of misadventure at the time of the procedure; Y92.9 Unspecified place or not applicable; N18.6 End stage renal disease; Z99.2 Dependence on renal dialysis; Z79.82 Long term (current) use of aspirin; Z79.899 Other long term (current) drug therapy; Z86.73 Personal history of transient ischemic attack (TIA), and cerebral infarction without residual deficits
CPT/HCPCS: 99284

== ENCOUNTER 2022-07-17 11:00 | Inpatient (IN) | payer MEDICARE, MEDICAID, SELFPAY ==
[2022-07-17] VITALS (29 sets, daily range): BP systolic 133–152; BP diastolic 51–109; PULSE 84–94; RESP 11–24; TEMP 36.3–37.2; O2SAT 93–100; BMI 27.1
--- NOTE | 2022-07-17 11:04 | CT_ITS ---
STUDY: CT BRAIN WITHOUT CONTRAST REASON FOR EXAM: Female, 87 years old. Neuro deficit, acute, stroke suspected RADIATION DOSAGE (If Supplied By Facility): CTDIvol = ( ) mGy, DLP = ( ) mGycm TECHNIQUE: Transaxial CT imaging of the brain was performed without administration of intravenous contrast material. Individualized dose optimization techniques were used for this CT. COMPARISON: 12/15/2019 FINDINGS: Normal soft tissue structures. Normal calvarium. There is mild cerebral atrophy with widening of the extra-axial spaces and ventricular dilatation. There are areas of decreased attenuation within the white matter tracts of the supratentorial brain, consistent with microvascular disease changes. Old right occipital lobe and left temporal lobe infarcts. Old lacunar infarcts in the basal ganglia. Normal brainstem. There is mild cerebellar atrophy. There is no intracranial hemorrhage. There are no findings of an acute ischemic infarction. There is mucoperiosteal inflammatory disease of the paranasal sinuses consistent with moderate chronic sinusitis. CT/STROKE Brain/Head without Cont IMPRESSION: Chronic involutional changes of the brain. No acute hemorrhage, old infarcts. Paranasal sinusitis N.B. : The above Results were Read Back by Paddy Carlson MD to Jey Benitez and understanding confirmed on 07/17/2022 11:18:33 (ET). Electronically Signed: Paddy Carlson MD at 11:20 EST ,
--- NOTE | 2022-07-17 11:04 | EKG12_ITS ---
Test Reason : STROKE Blood Pressure : / mmHG Vent. Rate : 086 BPM Atrial Rate : 086 BPM P-R Int : 216 ms QRS Dur : 154 ms QT Int : 432 ms P-R-T Axes : 044 -49 -18 degrees QTc Int : 516 ms Sinus rhythm with 1st degree A-V block Right bundle branch block Left anterior fascicular block Bifascicular block Abnormal ECG Confirmed by DANISHA SALMON, [place] ([id number]), news copy editor RICHIE PARK ([id number]) on 07/20/2022 9:08:29 AM Referred By: Confirmed By:CHINA RAMAN MD
--- NOTE | 2022-07-17 11:05 | CT_ITS ---
STUDY: CTA HEAD AND NECK WITH CONTRAST REASON FOR EXAM: Female, 87 years old. Mental status change, possible CVA RADIATION DOSAGE (If Supplied By Facility): CTDIvol = ( 18.10 ) mGy, DLP = ( 695.79 ) mGycm TECHNIQUE: CT angiography was performed with a multi-detector CT scanner. Data acquisition was obtained from the skull base through the vertex following intravenous administration of IV 100mL [id number]-370. MIP images were reconstructed from the axial data set. Post-processing of the angiographic images was performed, with multiplanar reformation and 3D reconstruction. Individualized dose optimization techniques were used for this CT. COMPARISON: No relevant priors. FINDINGS: Normal bilateral petrous carotid arteries. Normal right cavernous carotid artery with a normal supraclinoid bifurcation. Normal left cavernous carotid artery with a normal supraclinoid bifurcation. Normal right A1 segments of the anterior cerebral artery. Normal left A1 segments of the anterior cerebral artery. Normal intact anterior communicating artery (ACOM). Normal bilateral A2 segments of the anterior cerebral arteries. Normal right M1 and M2 segments of the middle cerebral arteries, with a normal M1 bifurcation. Normal left M1 and M2 segments of the middle cerebral arteries, with a normal M1 bifurcation. Normal right posterior communicating artery (PCOM). Normal left posterior communicating artery (PCOM). There is a small atretic left vertebral artery with a dominant right vertebral artery. Normal basilar artery with a normal basilar bifurcation. The visualized bilateral superior cerebellar (SCA) arteries are normal. Normal bilateral P1, P2 and visualized P3 segments of the posterior cerebral arteries. There is no demonstrated aneurysm of the [place] of [place]. There is no demonstrated abnormality of the visualized brain. AORTIC ARCH: Normal visualized aortic arch. Normal origins of the brachiocephalic, left common carotid, and left subclavian arteries. RIGHT CAROTID ARTERIES: Normal right common carotid artery (CCA). Normal right common carotid bulb. Normal origin of the right internal carotid (ICA) artery without a hemodynamically significant stenosis. Normal visualized cervical portion of the right internal carotid artery. Normal origin of the right external carotid artery (ECA). LEFT CAROTID ARTERIES: Normal left common carotid artery (CCA). Normal left common carotid bulb. Normal origin of the left internal carotid (ICA) artery without a hemodynamically significant stenosis. Normal visualized cervical portion of the left internal carotid artery. Normal origin of the left external carotid artery (ECA). VERTEBRAL ARTERIES: There is enhancement within the bilateral vertebral arteries with a small left vertebral artery, and a dominant right vertebral artery. Source images show bilateral thyroid nodules, no suspicious enhancing lesion, airway narrowing or deviation. Lung apices are clear, bony structures show degenerative change CT/STROKE CTA Head AND Neck W/Con IMPRESSION: No CTA evidence of CCA or ICA stenosis or plaque formation No intracranial vaso-occlusive disease, significant stenosis, aneurysm or vascular malformation N.B. : The above Results were Read Back by Paddy Carlson MD to Dr. Emmanuel MD, and understanding confirmed on 07/17/2022 11:34:51 (ET). Electronically Signed: Paddy Carlson MD at 11:36 EST ,
[2022-07-17 11:24] LABS: Absolute Lymphocyte Count 2.14 X10^3/uL (0.83-4.51); Basophil# 0.11 X10^3/uL; Basophil% 1.5 % (0-1); Eosinophil# 0.22 X10^3/uL; Eosinophils% 3.1 % (0-5); Hematocrit 37.1 % (37-47); Hemoglobin 11.8 g/dL (12.0-15.0); Lymphocyte # 2.14 X10^3/ul (0.83-4.51); Lymphocyte % 29.9 % (19-41); Mean Corp Hgb Conc 31.8 g/dL (32-36); Mean Corpuscular Hgb 28.4 pg (27.0-32.0); Mean Corpuscular Volume 89.4 fL (81-99); Mean Platelet Vol. 10.8 fl (6.2-12.0); Monocyte# 0.65 X10^3/uL; Monocyte% 9.1 % (0-10); NRBC Flagged by Analyzer 0 % (0-5); Platelet Count 163 K/mm3 (150-450); RBC Distribution Width CV 14.3 % (11.6-14.6); RBC Distribution Width SD 46.2 fl (35.1-43.9); Red Blood Count 4.15 M/mm3 (4.2-5.4); White Blood Count 7.2 K/mm3 (4.4-11.0)
--- NOTE | 2022-07-17 11:31 | EDS_ITS ---
HPI History of Present Illness Chief Complaint: Stroke Alert Narrative Narrative: 87-year-old female past medical history of hypertension, hyperlipidemia, end- stage renal disease, previous stroke and TIA, last being in 2019 presents from dialysis with left-sided weakness and left-sided facial droop. She also has slurred speech. Last known well time was at approximately 10:30 AM, just prior to arrival. Her history and physical is limited secondary to her condition. She presents via EMS with the slurred speech and left-sided weakness. In discussion with her daughter, she has had previous strokes which left her with more of a memory deficit but no permanent disability. She had normal speech in the past. She has received tPA also in the past. Daughter recognizes that the patient's speech is currently animated and that she appears more confused, not following commands as well. [facility] Medical History Acute respiratory failure with hypoxia Anemia Asthma Cerebellar infarct Chronic diastolic (congestive) heart failure Chronic kidney disease (CKD) stage G5/A1, glomerular filtration rate (GFR) less than or equal to 15 mL/min/1.73 square meter and albuminuria creatinine ratio less than 30 mg/g Chronic renal failure, stage 5 Cough Dementia Elevated troponin I level End-stage renal disease (ESRD) Essential hypertension Glaucoma History of CVA (cerebrovascular accident) (12/15/19) Hyperlipidemia Iron deficiency anemia Iron deficiency anemia Metabolic acidosis Obesity (BMI 30.0-34.9) Problem with dialysis access Problem with dialysis access RENAL FAILURE STAGE 6 Respiratory failure with hypoxia Shortness of breath Speech apraxia Home Medications ergocalciferol (vitamin D2) 1,250 mcg (50,000 unit) capsule 50,000 unit PO QMONTH 07/20/15 [History Last Taken 04/22/16] aspirin 81 mg tablet,delayed release 81 mg PO DAILY@0800 #30 tabs 07/22/15 [Rx Last Taken 10/31/19] timolol maleate 0.5 % eye drops 1 drp EACH EYE BID GLAUCOMA 11/26/15 [History Last Taken 10/31/19] calcium acetate(phosphat bind) 667 mg capsule 667 mg PO TIDCM 07/14/19 [History Last Taken 10/31/19] levothyroxine 100 mcg tablet 100 mcg PO DAILY 07/31/19 [History Last Taken 10/31/19] budesonide-formoterol HFA 160 mcg-4.5 mcg/actuation aerosol inhaler 1 puff inhalation BID COPD 10/26/19 [History Last Taken 10/31/19] isosorbide mononitrate 60 mg tablet,extended release 24 hr 60 mg PO SUMOWEFR HTN 10/26/19 [History Last Taken 10/31/19] latanoprost 0.005 % eye drops 1 drp RIGHT EYE QHS GLAUCOMA 10/26/19 [History L ast Taken 10/30/19] vitamin B complex and vitamin C no.20-folic acid 1 mg capsule 1 cap PO DAILY 10/26/19 [History Last Taken 10/31/19] atorvastatin 40 mg tablet 20 mg PO QHS 03/12/20 [History Last Taken Unknown] handicap placcard See Rx Instructions .Route .COMPLEX #1 ea 03/12/20 [Rx Last Taken Unknown] nifedipine 60 mg tablet,extended release 60 mg PO DAILY 05/12/21 [History Last Taken Unknown] Allergy/AdvReac Type Severity Reaction Status Date / Time erythromycin base Allergy Rash Verified 05/12/21 14:42 lisinopril Allergy Unknown Verified 05/12/21 14:42 NSAIDS (Non-Steroidal Allergy Other Verified 05/12/21 14:42 Anti-Inflamma Salicylates Allergy Other Verified 05/12/21 14:42 PROTEIN IN URINE DRUG Allergy Other Uncoded 05/06/21 12:21 Family History Mother Colon cancer Hypertension Father Hypertension Surgical History History of loop recorder (07/20/19) Hx of cataract extraction Hx of foot surgery Hx of hysterectomy Hx of thyroidectomy s/p left AV fistula creation (02/19/19) Social History Smoking Status: Former smoker alcohol intake: never substance use type: does not use caffeine: Yes what type of physical activity do you participate in: none frequency: does not exercise ROS ROS ED ROS Narrative Limited secondary to patient's current mental status. Review of Systems ROS Unobtainable: due to mental status EXAM Physical Exam Narrative Exam Narrative: Afebrile. Vital signs noted. HEENT: Normocephalic. Atraumatic. PERRL, EOMI. Neck soft and supple. No point tenderness or step off. Cardiovascular: Regular rate and rhythm. No murmurs, rubs, or gallops appreciated. Respiratory: No tachypnea. Lungs clear to auscultation bilaterally. Gastrointestinal: Abdomen soft, nontender, with normoactive bowel sounds. No rebound or guarding. Neurological: Awake. Alert. Left-sided weakness, left-sided facial droop, positive aphasia. NIH stroke scale upon presentation is 11 mainly for left- sided facial droop, left-sided weakness of upper and lower extremity, and dysarthria with aphasia. Skin: No rash. Normal color. No pallor. Musculoskeletal: No pedal edema. Full range of motion extremities. Const Vital Signs: 07/17/22 11:17 07/17/22 11:27 07/17/22 11:37 Temperature 97.8 F 97.8 F Temperature Source Temporal Temporal Pulse Rate 88 85 Respiratory Rate 16 16 Blood Pressure 138/62 H 138/62 H 147/64 H Blood Pressure Mean 87 87 Blood Pressure Source Blood Pressure Position Blood Pressure Location Pulse Ox 98 98 Oxygen Delivery Method Room Air Room Air 07/17/22 11:50 07/17/22 11:51 07/17/22 12:00 Temperature 97.4 F L Temperature Source Temporal Pulse Rate 84 88 Respiratory Rate 20 H 17 Blood Pressure 141/58 H 133/109 H Blood Pressure Mean 85 117 Blood Pressure Source Monitor Monitor Blood Pressure Position Semi-Fowlers Semi-Fowlers Blood Pressure Location Right Arm Left Arm Pulse Ox 99 99 Oxygen Delivery Method Room Air Room Air Room Air 07/17/22 12:15 07/17/22 12:30 Temperature 97.8 F 98.2 F Temperature Source Temporal Temporal Pulse Rate 84 91 Respiratory Rate 24 H 16 Blood Pressure 149/63 H 149/59 H Blood Pressure Mean 91 89 Blood Pressure Source Monitor Blood Pressure Position Semi-Fowlers Blood Pressure Location Right Arm Pulse Ox 98 99 Oxygen Delivery Method Room Air Room Air MDM MDM MDM Narrative Medical decision making narrative: Upon arrival, patient was sent to CT scan for her stroke symptoms. CT of the brain was reviewed and I spoke with the radiologist, there is no acute process or hemorrhage. CTA was also obtained, and I reviewed the report with the radiologist per telephone, and there is no large vessel occlusion. While her NIH stroke scale was repeated and her left arm and leg weakness has improved, she is still having dysarthria with mild aphasia. This is debilitating to the patient and reviewed with the neurologist. Her daughter is at the bedside and stated that she has received tPA in the past, the last time being in 2019. The only deficit that remained after that was memory loss/problems with memory. Her daughter is at the bedside and is the DURABLE POWER OF CAR INSTALLATIONS SUPERVISOR for medical care, and she would like tPA given. She did not have any questions for me or for the neurologist regarding the use of tenecteplase. She was made aware of the risk of intracranial or GI hemorrhage and acknowledges an understanding. Tenecteplase order set was instituted. Given that she received tPA, patient will be discussed with the hospitalist for admission. EKG was obtained, interpreted by myself, and reviewed which demonstrates sinus rhythm with first- degree AV block and a bifascicular block but no acute ST changes, no STEMI. I reviewed her laboratory work, she has a normal white count of 7.2, hemoglobin stable 11.8, platelet count 163. Coagulation studies are negative. BMP shows a chloride of 97 with a CO2 of 34, creatinine consistent with her end-stage renal disease, elevated at 4.28 with a BUN of 19. High-sensitivity troponin 37. Upon repeat examination at approximately 1225, her dysarthria and aphasia has i mproved, along with her left-sided weakness. Given that she has received tPA, patient was discussed with Dr. Patrick for admission to the ICU. Patient is in stable condition. Critical care time 31 minutes. Lab Data Attestation: I reviewed the patient's lab results. Labs: Laboratory Results - last 24 hr 07/17/22 07/17/22 07/17/22 11:10 11:10 11:10 WBC 7.2 RBC 4.15 L Hgb 11.8 L Hct 37.1 MCV 89.4 MCH 28.4 MCHC 31.8 L RDW Std Deviation 46.2 H RDW Coeff of [place] 14.3 Plt Count 163 MPV 10.8 Immature Gran % (Auto) 0.400 Neut % (Auto) 56.0 Lymph % (Auto) 29.9 [place] % (Auto) 9.1 Eos % (Auto) 3.1 Baso % (Auto) 1.5 H Absolute Neuts (auto) 4.0 Absolute Lymphs (auto) 2.14 Nucleated RBC % 0 PT 12.9 INR 1.0 APTT 29.2 Sodium 137 Potassium 4.3 Chloride 97 L Carbon Dioxide 34.0 H Anion Gap 6 BUN 19 H Creatinine 4.28 H Estim Creat Clear Calc 8.15 Est GFR (MDRD) Af Amer 13 L Est GFR (MDRD) Non-Af 10 L BUN/Creatinine Ratio 4.4 L Glucose 113 H Calcium 8.4 L Troponin I High Sens 37 Radiography Diagnostic Testing: Clinical Impression(s) from Imaging Studies Brain CT 07/17/22 11:04 IMPRESSION: Chronic involutional changes of the brain. No acute hemorrhage, old infarcts. Paranasal sinusitis N.B. : The above Results were Read Back by Paddy Carlson MD to Jey Benitez and understanding confirmed on 07/17/2022 11:18:33 (ET). Electronically Signed: Paddy Carlson MD at 11:20 EST Reading Location ID and State: [address] [place] [address] , Service support , ADDENDUM: 07/17/22 1127 IMPRESSION: Chronic involutional changes of the brain. No acute hemorrhage, old infarcts. Paranasal sinusitis N.B. : The above Results were Read Back by Paddy Carlson MD to Jey Benitez and understanding confirmed on 07/17/2022 11:18:33 (ET). Electronically Signed: Paddy Carlson MD at 11:20 EST Reading Location ID and State: [facility] / [place] , Service support , Head/Neck CTA 07/17/22 11:05 IMPRESSION: No CTA evidence of CCA or ICA stenosis or plaque formation No intracranial vaso-occlusive disease, significant stenosis, aneurysm or vascular malformation N.B. : The above Results were Read Back by Paddy Carlson MD to Dr. Emmanuel MD, and understanding confirmed on 07/17/2022 11:34:51 (ET). Electronically Signed: Paddy Carlson MD at 11:36 EST Reading Location ID and State: [facility] / [place] , Service support , ADDENDUM: 07/17/22 1143 IMPRESSION: No CTA evidence of CCA or ICA stenosis or plaque formation No intracranial vaso-occlusive disease, significant stenosis, aneurysm or vascular malformation N.B. : The above Results were Read Back by Paddy Carlson MD to Dr. Emmanuel MD, and understanding confirmed on 07/17/2022 11:34:51 (ET). Electronically Signed: Paddy Carlson MD at 11:36 EST , Chest X-Ray 07/17/22 11:42 IMPRESSION: 1. No acute findings in the chest. 2. No interval change when compared to 12/15/2019. Electronically Signed: Jey Rollins MD at 12:23 EST , Critical Care Time Critical Care Time: Yes Critical care time (excluding procedures): 30-74 minutes (31), Including time spent:, Discussing w/Patient &/or Family/Head Of Partner Development, Discussing w/Consultants, Arranging Admission or Transfer and Performing Direct Patient Care at Bedside Discharge Plan Dx/Rx/DC Orders Clinical Impression: Essential hypertension, End-stage renal disease (ESRD), Stroke, Received intravenous tissue plasminogen activator (tPA) in emergency department Disposition Disposition: Acute Care [facility]
[2022-07-17 11:32] LABS: Partial Thromboplast Time 29.2 Seconds (24.1-36.2); Prothrombin Time (Protime)PT. 12.9 SECONDS (11.7-14.9)
[2022-07-17] MEDS: TENECTEPLASE 2592 MG IV (11:37)
--- NOTE | 2022-07-17 11:42 | RAD_ITS ---
EXAM: XR CHEST, 1 VIEW CLINICAL INDICATION: Neuro deficit, acute, stroke suspected TECHNIQUE: Frontal view of the chest. This report was created using [employer] report generation technology. COMPARISON: 12/15/2019. FINDINGS: LUNGS AND PLEURAL SPACES: Probably large calcified granuloma in the right lung base. This was present previously and is unchanged. No pneumothorax. No effusion. No suspicious infiltrates. HEART: Unremarkable. Normal cardiac size. MEDIASTINUM: Central airways and mediastinal contour are unremarkable. BONES/JOINTS: Unremarkable. SOFT TISSUES: Surgical clips in the left arm extending to the left axilla.. TUBES, LINES AND DEVICES: Implanted loop recorder device overlying the left heart border is unchanged. RAD/Chest 1 View IMPRESSION: 1. No acute findings in the chest. 2. No interval change when compared to 12/15/2019. Electronically Signed: Jey Rollins MD at 12:23 EST ,
[2022-07-17 11:43] LABS: Anion Gap 6 (5-15); BUN 19 mg/dL (7-18); BUN/Creat Ratio 4.4 RATIO (10-20); Calcium,Total 8.4 mg/dL (8.5-10.1); Chloride 97 mmol/L (98-107); Creatinine, Serum 4.28 mg/dL (0.55-1.02); EST Glomerular Filtration Rate 10 mL/min (>60); Est Glom Filt Rate - Afr Amer 13 mL/min (>60); Estimated Creatinine Clearance 8.15 ml/min; Glucose 113 mg/dL (74-106); Potassium 4.3 mmol/L (3.5-5.1); Sodium Level 137 mmol/L (136-145); Troponin-I HS 37 pg/mL (3.0-54.0)
[2022-07-17] MEDS: 0.9% Normal Saline 1,000 ML 100 ML IV (11:47)
--- NOTE | 2022-07-17 11:57 | NURSING ---
See thrombolytic vital signs for vitals and NIH documentation
--- NOTE | 2022-07-17 12:41 | ECHOD_ITS ---
Reason For Study: TIA/CVA Procedure This was a 2D Doppler, Color Flow transthoracic echocardiogram. Exam performed portable in ICU/CCU. Left Ventricle Normal LV size. The estimated ejection fraction is 55 %. Stage 1 diastolic dysfunction. Mild segmental systolic dysfunction (see wall motion). Infero-Basal: Akinetic. Mid-Inferior: Hypokinetic. Basal inferoseptal: Hypokinetic. Posterior-Basal: Hypokinetic. The rest of the wall segments are normal. Right Ventricle Normal RV size. Normal systolic function. Atria The left atrium is mildly enlarged. Normal right atrium. Mitral Valve Normal mitral valve. Tricuspid Valve Normal tricuspid valve. Aortic Valve Trisinus/trileaflet aortic valve. Pulmonic Valve Normal pulmonic valve. Great Vessels Normal aortic root. The pulmonary artery is normal size. Normal inferior vena cava. Pericardium/Pleural No pericardial effusion. MMode/2D Measurements & Calculations LVIDd: 5.9 cm IVSd: 0.96 cm Ao root diam: 3.3 cm LVIDs: 4.2 cm LVPWd: 1.2 cm LA dimension: 3.7 cm RVDd: 3.4 cm FS: 29.3 % LAV(MOD-bp): 67.8 ml LA A4 area: 24.1 cm2 LAV(MOD-bp) Indexed: 38.3 ml/m2 LAV(MOD-sp2): 51.6 ml LAV(MOD-sp4): 73.3 ml Time Measurements MV dec time: 0.27 sec Doppler Measurements & Calculations MV E max ghanshyam: 88.0 cm/sec Lat Peak E' Ghanshyam: 7.6 cm/sec Med Peak E' Ghanshyam: 7.3 cm/sec MV A max ghanshyam: 128.4 cm/sec E/E' lat: 11.5 E/E' med: 12.1 MV E/A: 0.69 MV V2 max: 146.9 cm/sec MV dec slope: 331.0 cm/sec2 Ao V2 max: 176.8 cm/sec MV max P.6 mmHg Ao max P.5 mmHg MV V2 mean: 81.1 cm/sec Ao V2 mean: 117.0 cm/sec MV mean P.1 mmHg Ao mean P.2 mmHg MV V2 VTI: 34.9 cm Ao V2 VTI: 33.5 cm AV (velocity ratio): 0.84 LV V1 max: 137.1 cm/sec MR max ghanshyam: 567.0 cm/sec PA V2 max: 121.6 cm/sec LV V1 max P.5 mmHg MR max P.6 mmHg LV V1 mean P.4 mmHg MR mean ghanshyam: 427.0 cm/sec LV V1 mean: 100.2 cm/sec MR mean P.5 mmHg LV V1 VTI: 28.3 cm MR VTI: 189.8 cm ECHO/Echo Complete Interpretation Summary Normal LV size. The estimated ejection fraction is 55 %. Stage 1 diastolic dysfunction. The left atrium is mildly enlarged. Mild segmental systolic dysfunction (see wall motion). Ordering Physician: Melody Patrick Referring Physician: Wayne Leahy Chi Performed By: Mikal Hawk RCS
--- NOTE | 2022-07-17 12:43 | PCM.HP.STD ---
HPI - General General Date of Admission: 07/17/22 Date of Service: 07/17/22 Chief Complaint: Dysarthria/aphasia/left facial droop/left-sided weakness HPI Narrative LOUISE ZAVALA, is a 87 F who presented to the emergency department at [facility] on 07/17 2022 from her dialysis center with acute onset dysarthria/aphasia/left facial droop/left-sided weakness that started at the end of her dialysis session today. She does have history of previous stroke in 2019. Family states she was fine prior to to the event at dialysis. She does have some mild baseline dementia but is typically alert and oriented x3. Family reports with previous stroke she had some expressive type aphasia as well. NIH is 5 at the present time. Left upper extremity and lower extremity weakness has resolved. There is no further left facial droop. NIH was higher previously when presented but now status post tPA. Patient is speaking some gibberish upon my exam and intermittently following commands. [facility] a [facility] resident. Sees Dr. Kianna Patrick for dialysis. Vital signs at presentation demonstrated a temperature of 97.4, heart rate 88, blood pressure 138/62, respiratory 16, oxygen saturations are 98% on room air. CBC is overall unremarkable with a stable mild anemia having hemoglobin of 11.8. Coags are normal. Chemistry panel shows a chronic renal failure with a BUN of 19 and a serum creatinine of 4.28. Overall electrolytes are unremarkable. Initial troponin was 37. EKG shows normal sinus rhythm with a first-degree heart block and mild QTc prolongation. There are no changes consistent with acute ischemia however patient has chronic T wave inversions in the anterior lateral leads patient is chest pain-free. CT of her brain demonstrates chronic involutional changes of the brain with no acute hemorrhage and an old right occipital lobe and old left temporal lobe infarct as well as old lacunar infarcts in the bilateral basal ganglia. CTA of the head and neck was unremarkable for any LVO. Chest x-ray shows no acute chest findings and no interval change since 2019. She was given tPA in the emergency department. Her dialysis needles were not removed prior to coming from dialysis nor were they removed prior to her receiving tPA so they will need to stay in place in her left upper extremity fistula until 24 hours after tPA dosing. [facility] Medical History Acute respiratory failure with hypoxia Anemia Asthma Cerebellar infarct Chronic diastolic (congestive) heart failure Chronic kidney disease (CKD) stage G5/A1, glomerular filtration rate (GFR) less than or equal to 15 mL/min/1.73 square meter and albuminuria creatinine ratio less than 30 mg/g Chronic renal failure, stage 5 Cough Dementia Elevated troponin I level End-stage renal disease (ESRD) Essential hypertension Glaucoma History of CVA (cerebrovascular accident) (12/15/19) Hyperlipidemia Iron deficiency anemia Iron deficiency anemia Metabolic acidosis Obesity (BMI 30.0-34.9) Problem with dialysis access Problem with dialysis access RENAL FAILURE STAGE 6 Respiratory failure with hypoxia Shortness of breath Speech apraxia Home Medications timolol maleate 0.5 % eye drops 1 drp EACH EYE BID GLAUCOMA 11/26/15 [History Last Taken 10/31/19] calcium acetate(phosphat bind) 667 mg capsule 667 mg PO TIDCM 07/14/19 [History Last Taken 10/31/19] levothyroxine 100 mcg tablet 100 mcg PO DAILY 07/31/19 [History Last Taken 10/31/19] isosorbide mononitrate 60 mg tablet,extended release 24 hr 60 mg PO SUMOWEFR HTN 10/26/19 [History Last Taken 10/31/19] latanoprost 0.005 % eye drops 1 drp RIGHT EYE QHS GLAUCOMA 10/26/19 [History Last Taken 10/30/19] handicap placcard See Rx Instructions .Route .COMPLEX #1 ea 03/12/20 [Rx Last Taken Unknown] nifedipine 60 mg tablet,extended release 60 mg PO DAILY 05/12/21 [History Last Taken Unknown] albuterol sulfate 90 mcg/actuation aerosol inhaler 2 inh inhalation Q4H PRN Shortness Of Breath 07/17/22 [History Last Taken Unknown] aspirin 81 mg tablet,delayed release 81 mg PO DAILY HEART HEALTH 07/17/22 [History Last Taken 07/17/22] atorvastatin 20 mg tablet 20 mg PO DAILY CHOLESTEROL 07/17/22 [History Last Taken 07/16/22 20:00] budesonide-formoterol HFA 160 mcg-4.5 mcg/actuation aerosol inhaler 1 inh inhalation DAILY SHORTNESS OF BREATH 07/17/22 [History Last Taken 07/17/22] budesonide-formoterol HFA 160 mcg-4.5 mcg/actuation aerosol inhaler 1 inh inhalation QHS SHORTNESS OF BREATH 07/17/22 [History Last Taken 07/16/22] dextran 70-hypromellose 0.1 %-0.3 % eye drops 1 drp ophthalmic (eye) DAILY 07/17/22 [History Last Taken 07/17/22] dextran 70-hypromellose 0.1 %-0.3 % eye drops 1 drp ophthalmic (eye) QHS 07/17/22 [History Last Taken 07/16/22] hydrocortisone probutate 0.1 % topical cream (Pandel) 1 applic topical Q12H PRN RASH/ITCHING 07/17/22 [History Last Taken Unknown] lidocaine-prilocaine 2.5 %-2.5 % topical cream 1 applic topical [facility] 07/17/22 [History Last Taken 07/17/22] nutritional supplements 237 ml PO UD SUPPLEMENT 07/17/22 [History Last Taken 07/17/22] vitamin B complex and vitamin C no.20-folic acid 1 mg capsule 1 cap PO DAILY 07/17/22 [History Last Taken 07/17/22] Allergy/AdvReac Type Severity Reaction Status Date / Time erythromycin base Allergy Rash Verified 05/12/21 14:42 lisinopril Allergy Unknown Verified 05/12/21 14:42 NSAIDS (Non-Steroidal Allergy Other Verified 05/12/21 14:42 Anti-Inflamma Salicylates Allergy Other Verified 05/12/21 14:42 PROTEIN IN URINE DRUG Allergy Other Uncoded 05/06/21 12:21 Family History Mother Colon cancer Hypertension Father Hypertension Surgical History History of loop recorder (07/20/19) Hx of cataract extraction Hx of foot surgery Hx of hysterectomy Hx of thyroidectomy s/p left AV fistula creation (02/19/19) Social History Smoking Status: Former smoker alcohol intake: never substance use type: does not use caffeine: Yes what type of physical activity do you participate in: none frequency: does not exercise ROS Constitutional Constitutional: Denies anorexia, change in weight, chills, fatigue, fever(s), malaise, night sweats, weakness or other Eyes Eyes: Denies blurry vision, change in eye color, change in vision, discharge from eye(s), double vision, erythema, eye pain, loss of vision or other ENT HEENT: Denies abnormal hearing, dysphagia, ear pain, epistaxis, headache(s), hearing loss, nasal congestion, nasal discharge, post nasal drip, sinus pressure, sore throat or other Cardiovascular Cardiovascular: Denies chest pain, claudication, dyspnea on exertion, edema, lightheadedness, orthopnea, palpitations, paroxysmal nocturnal dyspnea, rapid heart rate, syncope or other Respiratory/Chest Respiratory/Chest: Denies cough, dyspnea, excessive phlegm production, hemoptysis, productive cough, shortness of breath at rest, shortness of breath with exertion, wheezing or other Gastrointestinal Gastrointestinal: Denies abdominal pain, coffee ground emesis, constipation, diarrhea, dyspepsia, hematemesis, hematochezia, loose stools, melena, nausea, vomiting or other Genitourinary Genitourinary: Denies burning urination, difficulty urinating, dysuria, hematuria, nocturia, urinary frequency, urinary hesitancy, urinary incontinence, urinary urgency or other Musculoskeletal Musculoskeletal: Denies arthralgias, back pain, joint pain, joint stiffness, joint swelling, myalgias, neck pain or other Neurologic Neurologic: Reports abnormal speech, confusion and focal weakness; Denies abnormal gait, disequilibrium, dizziness, headache(s), numbness, paresthesias, seizure-like activity, seizures, syncope, tingling, tremor(s) or other Psychiatric Psychiatric: Denies anxiety, depression, homicidal ideation, suicidal ideation or other Endocrine Endocrinology: Denies change in body appearance, cold intolerance, excessive sweating, heat intolerance, polydipsia, polyuria or other Hematologic/Lymphatic Hematologic/Lymphatic: Denies anemia, easy bleeding, easy bruising, lymphadenopathy or other Allergic/Immunologic Allergic/Immunologic: Denies rhinitis, hives, eczemia, asthma or other Vital Signs Vital Signs Vital Signs: 07/17/22 11:17 07/17/22 11:27 07/17/22 11:37 Temperature 97.8 F 97.8 F Temperature Source Temporal Temporal Pulse Rate 88 85 Respiratory Rate 16 16 Blood Pressure 138/62 H 138/62 H 147/64 H Blood Pressure Mean 87 87 Blood Pressure Source Blood Pressure Position Blood Pressure Location Pulse Ox 98 98 Oxygen Delivery Method Room Air Room Air 07/17/22 11:50 07/17/22 11:51 07/17/22 12:00 Temperature 97.4 F L Temperature Source Temporal Pulse Rate 84 88 Respiratory Rate 20 H 17 Blood Pressure 141/58 H 133/109 H Blood Pressure Mean 85 117 Blood Pressure Source Monitor Monitor Blood Pressure Position Semi-Fowlers Semi-Fowlers Blood Pressure Location Right Arm Left Arm Pulse Ox 99 99 Oxygen Delivery Method Room Air Room Air Room Air 07/17/22 12:15 07/17/22 12:30 07/17/22 12:38 Temperature 97.8 F 98.2 F 97.6 F L Temperature Source Temporal Temporal Temporal Pulse Rate 84 91 86 Respiratory Rate 24 H 16 14 Blood Pressure 149/63 H 149/59 H 150/56 H Blood Pressure Mean 91 89 87 Blood Pressure Source Monitor Blood Pressure Position Semi-Fowlers Blood Pressure Location Right Arm Pulse Ox 98 99 99 Oxygen Delivery Method Room Air Room Air Room Air Weight Weight: 71.8 kg Body Mass Index (BMI) 27.1 Physical Exam Const alert Constitutional Narrative: Elderly, -[place] female, lying in bed, daughter at bedside, appears comfortable nontoxic, very verbose however sometimes language is nonsensical, intermittently follows commands, oriented to self and place as well as month (typically alert and oriented x3), intermittently cooperative HEENT normocephalic, head/scalp atraumatic and moist oral mucous membranes HEENT Narrative: Mild hearing loss, Mallampati 2, no thrush Eyes PERRL, EOMs intact bilaterally and conjunctivae normal Eyes Narrative: No scleral icterus Neck no lymphadenopathy, supple, no JVD and no carotid bruits Neck Narrative: Trachea midline Resp normal respiratory effort, no retractions, no use of accessory muscles and clear to auscultation bilaterally Auscultation: Negative for crackles, rhonchi or wheezes Cardio regular rate, regular rhythm, S1 normal heart sound, S2 normal heart sound, no murmurs, no rub, no gallops and no clicks GI normal to inspection, nondistended, normoactive bowel sounds, soft to palpation and non-tender Extremity no clubbing, cyanosis or edema Extremity Narrative: 2+ pedal pulses, 2+ radial pulses Skin no wounds, skin turgor normal, no jaundice, no petechiae and no mottling Skin Narrative: Left upper extremity fistula with palpable bruit and thrill, dialysis needles in place with no significant oozing at this time Neuro CN's II-XII intact bilaterally, moves all extremities and no focal motor deficits Neuro Narrative: No left upper extremity pronator drift, no noted left upper extremity weakness, some mild limb ataxia, seems to have some expressive and partial receptive aphasia, intermittently follows commands, no current focal motor deficits Speech: Negative for speech normal Motor Exam: Negative for strength 5/5 throughout Psych affect normal Psych Narrative: Pleasant Results Lab / Micro Data Attestation: I reviewed the patient's lab results. Result Diagrams: 07/17/22 11:10 07/17/22 11:10 Labs: Laboratory Results - last 24 hr 07/17/22 11:10: WBC 7.2, RBC 4.15 L, Hgb 11.8 L, Hct 37.1, MCV 89.4, MCH 28.4, MCHC 31.8 L, RDW Std Deviation 46.2 H, RDW Coeff of Lizett 14.3, Plt Count 163, MPV 10.8, Immature Gran % (Auto) 0.400, Neut % (Auto) 56.0, Lymph % (Auto) 29.9, [place] % (Auto) 9.1, Eos % (Auto) 3.1, Baso % (Auto) 1.5 H, Absolute Neuts (auto) 4.0, Absolute Lymphs (auto) 2.14, Nucleated RBC % 0 07/17/22 11:10: PT 12.9, INR 1.0, APTT 29.2 07/17/22 11:10: Sodium 137, Potassium 4.3, Chloride 97 L, Carbon Dioxide 34.0 H, Anion Gap 6, BUN 19 H, Creatinine 4.28 H, Estim Creat Clear Calc 8.15, Est GFR (MDRD) Af Amer 13 L, Est GFR (MDRD) Non-Af 10 L, BUN/Creatinine Ratio 4.4 L, Glucose 113 H, Calcium 8.4 L, Troponin I High Sens [address] 07/17/22 11:04 IMPRESSION: Chronic involutional changes of the brain. No acute hemorrhage, old infarcts. Paranasal sinusitis N.B. : The above Results were Read Back by Paddy Carlson MD to Jey Benitez and understanding confirmed on 07/17/2022 11:18:33 (ET). Electronically Signed: Paddy Carlson MD at 11:20 EST , ADDENDUM: 07/17/22 1127 IMPRESSION: Chronic involutional changes of the brain. No acute hemorrhage, old infarcts. Paranasal sinusitis N.B. : The above Results were Read Back by Paddy Carlson MD to Jey Benitez and understanding confirmed on 07/17/2022 11:18:33 (ET). Electronically Signed: Paddy Carlson MD at 11:20 EST , Head/Neck CTA 07/17/22 11:05 IMPRESSION: No CTA evidence of CCA or ICA stenosis or plaque formation No intracranial vaso-occlusive disease, significant stenosis, aneurysm or vascular malformation N.B. : The above Results were Read Back by Paddy Carlson MD to Dr. Emmanuel MD, and understanding confirmed on 07/17/2022 11:34:51 (ET). Electronically Signed: Paddy Carlson MD at 11:36 EST Reading Location ID and State: [facility] / [place] , Service support , ADDENDUM: 07/17/22 1143 IMPRESSION: No CTA evidence of CCA or ICA stenosis or plaque formation No intracranial vaso-occlusive disease, significant stenosis, aneurysm or vascular malformation N.B. : The above Results were Read Back by Paddy Carlson MD to Dr. Emmanuel MD, and understanding confirmed on 07/17/2022 11:34:51 (ET). Electronically Signed: Paddy Carlson MD at 11:36 EST , Chest X-Ray 07/17/22 11:42 IMPRESSION: 1. No acute findings in the chest. 2. No interval change when compared to 12/15/2019. Electronically Signed: Jey Rollins MD at 12:23 EST Reading Location ID and State: [facility] / [place] , Service support , Assessment & Plan Assessment/Plan (1) Received intravenous tissue plasminogen activator (tPA) in emergency department: (2) Stroke: (3) Dysarthria: (4) Aphasia: (5) Facial droop: (6) Left-sided weakness: PLAN: Plan Ischemic stroke -Patient presented with expressive aphasia, some dysarthria, left-sided facial droop, left-sided weakness -CT of the head was negative -CTA of the head and neck with no LVO -tPA given the emergency department around 1215 -Hold aspirin and DVT prophylaxis for 24 hours -Hold home antihypertensives and use as needed's to maintain blood pressure range -We will likely restart antihypertensives tomorrow depending on blood pressures -Keep patient under 180 preferably between 160 and 180 -Echocardiogram -Repeat imaging with either MRI or CT in 24 hours -If MRI not able to come in because it Tuesday we will check CT of head at 24 hours post tPA to assess for any signs of hemorrhagic transformation -Bedrest -Check lipids -Check hemoglobin A1c -PT/OT at 24 hours after tPA -Consult SOC neurology after imaging obtained -Admit to the ICU -Ischemic stroke protocol in place End-stage renal disease on dialysis -Patient was at dialysis on the day of presentation -Suspect Tuesday dialysis -Continue home binders -Consult nephrology--> Dr. 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 with tPA dosing Glaucoma -Continue home eyedrops Chronic HFpEF -Diastolic in nature -Compensated -Dialysis for volume management COPD/asthma -Continue home inhalers DVT prophylaxis -SCDs -Start chemoprophylaxis at 24 hours start tPA CODE STATUS -Full code per discussion prior to admission with family Charges/Coding Visit Charges Inpatient E&M: 91980 Init Hosp L3
[2022-07-17] MEDS: Albuterol 2.5 MG/3 ML VIAL.NEB. INHALATION ×2 (14:02→19:03)
[2022-07-17 14:10] LABS: Hemoglobin A1c 5.2 % (3.8-5.6)
--- NOTE | 2022-07-17 17:31 | CASEMGMT ---
JUSTIN CM NOTE: Noted pt from [facility]. Camila SAUCEDO, made aware. Sergio WHITAKER RN CM
[2022-07-17] MEDS: Calcium Acetate 667 MG Capsule PO (17:59)
[2022-07-17] MEDS: Budesonide Respules 0.5 MG/2 ML AMPUL.NEB. INHALATION (19:04)
--- NOTE | 2022-07-17 19:55 | CM.ED ---
SHERYL called [facility] at [place]. 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 Camial REY
[2022-07-17] MEDS: Latanoprost 0.005% 1 Bottle 1 DRP RIGHT EYE (22:10)
[2022-07-17] MEDS: Atorvastatin Calcium 80 MG Tablet PO (22:11)
[2022-07-17] MEDS: 0.9% Saline Lock 10 ML Syringe IV (22:11)
[2022-07-18] VITALS (23 sets, daily range): BP systolic 127–158; BP diastolic 54–98; PULSE 78–93; RESP 12–26; TEMP 36.6–36.9; O2SAT 94–100; BMI 27.1
[2022-07-18] MEDS: Levothyroxine 100 MCG Tablet PO (05:20)
[2022-07-18 05:29] LABS: Absolute Neutrophil Count 3.1 X10^3/uL (2.0-7.7); Basophil# 0.09 X10^3/uL; Basophil% 1.4 % (0-1); Eosinophil# 0.21 X10^3/uL; Eosinophils% 3.3 % (0-5); Hematocrit 32.2 % (37-47); Hemoglobin 10.1 g/dL (12.0-15.0); Lymphocyte % 37.5 % (19-41); Mean Corp Hgb Conc 31.4 g/dL (32-36); Mean Corpuscular Hgb 28.5 pg (27.0-32.0); Mean Platelet Vol. 10.7 fl (6.2-12.0); Monocyte# 0.61 X10^3/uL; Monocyte% 9.5 % (0-10); NRBC Flagged by Analyzer 0 % (0-5); Neutrophil # 3.07 X10^3/uL (2.7-7.7); Platelet Count 137 K/mm3 (150-450); RBC Distribution Width CV 14.2 % (11.6-14.6); RBC Distribution Width SD 47.5 fl (35.1-43.9); Red Blood Count 3.54 M/mm3 (4.2-5.4); White Blood Count 6.4 K/mm3 (4.4-11.0)
--- NOTE | 2022-07-18 05:38 | EX.PCM.CONCC ---
Assessment & Plan Assessment/Plan (1) Stroke: PLAN: Plan RECOMMENDATIONS: 1. Obtain repeat head imaging this afternoon per protocol. 2. Obtain echocardiogram 3. PT/OT evaluations once cleared on repeat head imaging. 4. Maintain blood pressures less than 185/110 mmHg. IMPRESSIONS: 1. Acute CVA status post tenecteplase The patient presented from her dialysis center with left-sided weakness, facial droop and dysarthria. She was felt to be a candidate for tenecteplase, which was administered. The patient's neurologic symptoms have improved. Accordingly, the patient will be maintained and monitored in the ICU per protocol. Obtain follow-up head imaging this afternoon as ordered. PT/OT evaluations once cleared on head imaging 2. End-stage renal disease on hemodialysis Ongoing dialysis support per nephrology recommendations. 3. Prior history of CVA/hypertension/hyperlipidemia/heart failure with preserved ejection fraction/asthma Complicates care, management, recovery and prognosis. Continue home medications as indicated. This note was generated with [employer] dictation software. It may contain incorrect words, spelling, and punctuation that were not noted in checking the note before signing. HPI Consult Data Date of Consult: 07/18/22 HPI Narrative Reason for Consultation: CVA status post tenecteplase HPI Narrative: The patient is an 87-year-old female, with a history as outlined below, who presented to the emergency department on July 17 with dysarthria, left-sided weakness and left facial droop. The patient was apparently at her routine dialysis center when she developed the aforementioned symptoms. She does have a history of a prior stroke sometime in 2019. The patient also has a medical history significant for hypertension and heart failure with preserved ejection fraction. She is on a regular dialysis session of Tuesday, , Tuesday. On presentation to the emergency department, the patient was noted to be afebrile hemodynamically stable. She was maintaining appropriate oxygen saturations on room air. Initial laboratory evaluation revealed no evidence of a leukocytosis. CT head revealed chronic involutional changes of the brain. CTA head and neck revealed no evidence of a large vessel occlusion. NIH score was initially 11 at presentation. Ultimately, the patient was administered tenecteplase. She was subsequently admitted to the medical intensive care unit. [facility] Medical History Acute respiratory failure with hypoxia Anemia Asthma Cerebellar infarct Chronic diastolic (congestive) heart failure Chronic kidney disease (CKD) stage G5/A1, glomerular filtration rate (GFR) less than or equal to 15 mL/min/1.73 square meter and albuminuria creatinine ratio less than 30 mg/g Chronic renal failure, stage 5 Cough Dementia Elevated troponin I level End-stage renal disease (ESRD) Essential hypertension Glaucoma History of CVA (cerebrovascular accident) (12/15/19) Hyperlipidemia Iron deficiency anemia Iron deficiency anemia Metabolic acidosis Obesity (BMI 30.0-34.9) Problem with dialysis access Problem with dialysis access RENAL FAILURE STAGE 6 Respiratory failure with hypoxia Shortness of breath Speech apraxia Home Medications timolol maleate 0.5 % eye drops 1 drp EACH EYE BID GLAUCOMA 11/26/15 [History Last Taken 07/17/22] calcium acetate(phosphat bind) 667 mg capsule 1,334 mg PO TIDCM RENAL DIALYSIS 07/14/19 [History Last Taken 07/17/22] levothyroxine 100 mcg tablet 100 mcg PO DAILY 07/31/19 [History Last Taken 07/17/22] isosorbide mononitrate 60 mg tablet,extended release 24 hr 60 mg PO SUMOWEFR HTN 10/26/19 [History Last Taken 07/16/22] latanoprost 0.005 % eye drops 1 drp RIGHT EYE QHS GLAUCOMA 10/26/19 [History Last Taken 07/16/22] handicap placcard See Rx Instructions .Route .COMPLEX #1 ea 03/12/20 [Rx Last Taken Unknown] nifedipine 60 mg tablet,extended release 60 mg PO DAILY BLOOD PRESSURE 05/12/21 [History Last Taken 07/17/22] albuterol sulfate 90 mcg/actuation aerosol inhaler 2 inh inhalation Q4H PRN Shortness Of Breath 07/17/22 [History Last Taken Unknown] aspirin 81 mg tablet,delayed release 81 mg PO DAILY HEART HEALTH 07/17/22 [History Last Taken 07/17/22] atorvastatin 20 mg tablet 20 mg PO DAILY CHOLESTEROL 07/17/22 [History Last Taken 07/16/22 20:00] budesonide-formoterol HFA 160 mcg-4.5 mcg/actuation aerosol inhaler 1 inh inhalation DAILY SHORTNESS OF BREATH 07/17/22 [History Last Taken 07/17/22] budesonide-formoterol HFA 160 mcg-4.5 mcg/actuation aerosol inhaler 1 inh inhalation QHS SHORTNESS OF BREATH 07/17/22 [History Last Taken 07/16/22] dextran 70-hypromellose 0.1 %-0.3 % eye drops 1 drp ophthalmic (eye) DAILY 07/17/22 [History Last Taken 07/17/22] dextran 70-hypromellose 0.1 %-0.3 % eye drops 1 drp ophthalmic (eye) QHS 07/17/22 [History Last Taken 07/16/22] hydrocortisone probutate 0.1 % topical cream (Pandel) 1 applic topical Q12H PRN RASH/ITCHING 07/17/22 [History Last Taken Unknown] lidocaine-prilocaine 2.5 %-2.5 % topical cream 1 applic topical [facility] 07/17/22 [History Last Taken 07/17/22] nutritional supplements 237 ml PO UD SUPPLEMENT 07/17/22 [History Last Taken 07/17/22] vitamin B complex and vitamin C no.20-folic acid 1 mg capsule 1 cap PO DAILY 07/17/22 [History Last Taken 07/17/22] Allergy/AdvReac Type Severity Reaction Status Date / Time erythromycin base Allergy Rash Verified 05/12/21 14:42 lisinopril Allergy Unknown Verified 05/12/21 14:42 NSAIDS (Non-Steroidal Allergy Other Verified 05/12/21 14:42 Anti-Inflamma Salicylates Allergy Other Verified 05/12/21 14:42 PROTEIN IN URINE DRUG Allergy Other Uncoded 05/06/21 12:21 Family History Mother Colon cancer Hypertension Father Hypertension Surgical History History of loop recorder (07/20/19) Hx of cataract extraction Hx of foot surgery Hx of hysterectomy Hx of thyroidectomy s/p left AV fistula creation (02/19/19) Social History Smoking Status: Former smoker alcohol intake: never substance use type: does not use caffeine: Yes what type of physical activity do you participate in: none frequency: does not exercise ROS ROS Narrative 10 systems reviewed with pertinent positives as noted in the HPI above. Physical Exam Const alert and no apparent distress General Appearance: cooperative HEENT normocephalic and head/scalp atraumatic Eyes PERRL, EOMs intact bilaterally and conjunctivae normal Neck supple General: trachea midline Chest inspection of chest normal Resp normal respiratory effort Auscultation: Negative for rales, rhonchi or wheezes Cardio regular rate and regular rhythm GI normal to inspection, nondistended, normoactive bowel sounds Extremity no clubbing, cyanosis or edema Skin no rashes or lesions noted Neuro CN's II-XII intact bilaterally and moves all extremities Psych Mood & Affect: flat affect Lab / Micro Data Result Diagrams: 07/18/22 05:25 07/18/22 05:25 Labs: Laboratory Results - last 24 hr 07/17/22 11:10: WBC 7.2, RBC 4.15 L, Hgb 11.8 L, Hct 37.1, MCV 89.4, MCH 28.4, MCHC 31.8 L, RDW Std Deviation 46.2 H, RDW Coeff of Lizett 14.3, Plt Count 163, MPV 10.8, Immature Gran % (Auto) 0.400, Neut % (Auto) 56.0, Lymph % (Auto) 29.9, Ransom % (Auto) 9.1, Eos % (Auto) 3.1, Baso % (Auto) 1.5 H, Absolute Neuts (auto) 4.0, Absolute Lymphs (auto) 2.14, Nucleated RBC % 0 07/17/22 11:10: PT 12.9, INR 1.0, APTT 29.2 07/17/22 11:10: Sodium 137, Potassium 4.3, Chloride 97 L, Carbon Dioxide 34.0 H, Anion Gap 6, BUN 19 H, Creatinine 4.28 H, Estim Creat Clear Calc 8.15, Est GFR (MDRD) Af Amer 13 L, Est GFR (MDRD) Non-Af 10 L, BUN/Creatinine Ratio 4.4 L, Glucose 113 H, Calcium 8.4 L, Troponin I High Sens 37 07/17/22 11:10: Hemoglobin A1c 5.2 07/18/22 05:25: WBC 6.4, RBC 3.54 L, Hgb 10.1 L, Hct 32.2 L, MCV 91.0, MCH 28.5, MCHC 31.4 L, RDW Std Deviation 47.5 H, RDW Coeff of Lizett 14.2, Plt Count 137 L, MPV 10.7, Immature Gran % (Auto) 0.300, Neut % (Auto) 48.0, Lymph % (Auto) 37.5, Ransom % (Auto) 9.5, Eos % (Auto) 3.3, Baso % (Auto) 1.4 H, Absolute Neuts (auto) 3.1, Absolute Lymphs (auto) 2.40, Nucleated RBC % [address] 07/17/22 11:04 IMPRESSION: Chronic involutional changes of the brain. No acute hemorrhage, old infarcts. Paranasal sinusitis N.B. : The above Results were Read Back by Paddy Carlson MD to Jey Benitez and understanding confirmed on 07/17/2022 11:18:33 (ET). Electronically Signed: Paddy Carlson MD at 11:20 EST , ADDENDUM: 07/17/22 1127 IMPRESSION: Chronic involutional changes of the brain. No acute hemorrhage, old infarcts. Paranasal sinusitis N.B. : The above Results were Read Back by Paddy Carlson MD to Jey Benitez and understanding confirmed on 07/17/2022 11:18:33 (ET). Electronically Signed: Paddy Carlson MD at 11:20 EST , Head/Neck CTA 07/17/22 11:05 IMPRESSION: No CTA evidence of CCA or ICA stenosis or plaque formation No intracranial vaso-occlusive disease, significant stenosis, aneurysm or vascular malformation N.B. : The above Results were Read Back by Paddy Carlson MD to Dr. Emmanuel MD, and understanding confirmed on 07/17/2022 11:34:51 (ET). Electronically Signed: Paddy Carlson MD at 11:36 EST , ADDENDUM: 07/17/22 1143 IMPRESSION: No CTA evidence of CCA or ICA stenosis or plaque formation No intracranial vaso-occlusive disease, significant stenosis, aneurysm or vascular malformation N.B. : The above Results were Read Back by Paddy Carlson MD to Dr. Emmanuel MD, and understanding confirmed on 07/17/2022 11:34:51 (ET). Electronically Signed: Paddy Carlson MD at 11:36 EST , Chest X-Ray 07/17/22 11:42 IMPRESSION: 1. No acute findings in the chest. 2. No interval change when compared to 12/15/2019. Electronically Signed: Jey Rollins MD at 12:23 EST , Charges/Coding Visit Charges Inpatient E&M: 72620 Init Hosp L3
[2022-07-18 05:58] LABS: ALB/GLOB Ratio 0.9 RATIO (0.9-2.4); AST(SGOT) 16 U/L (15-37); Alanine Aminotransfer ALT/SGPT 13 U/L (13-56); Albumin, Serum 2.9 g/dL (3.2-5.0); Alkaline Phosphatase 58 U/L (45-117); Anion Gap 5 (5-15); BUN 29 mg/dL (7-18); BUN/Creat Ratio 4.3 RATIO (10-20); Calcium,Total 8.1 mg/dL (8.5-10.1); Chloride 99 mmol/L (98-107); Cholesterol 104 mg/dL (200); Creatinine, Serum 6.69 mg/dL (0.55-1.02); EST Glomerular Filtration Rate 6 mL/min (>60); Est Glom Filt Rate - Afr Amer 8 mL/min (>60); Estimated Creatinine Clearance 5.21 ml/min; Globulin 3.2 g/dL (2.2-4.2); Glucose 83 mg/dL (74-106); High Density Lipoprotein 54 mg/dL; Magnesium 2.1 mg/dL (1.6-2.6); Phosphorus 5.6 mg/dL (2.5-4.9); Potassium 4.6 mmol/L (3.5-5.1); Protein, Total 6.1 g/dL (6.4-8.2); Sodium Level 136 mmol/L (136-145); Thyroid Stim Hormone (TSH) 2.18 uIU/mL (0.358-3.74); Triglycerides 31 mg/dL; Very Low Density Lipoprotein 6 mg/dL (5-40)
[2022-07-18] MEDS: Budesonide Respules 0.5 MG/2 ML AMPUL.NEB. INHALATION ×2 (07:15→19:00)
[2022-07-18] MEDS: Albuterol 2.5 MG/3 ML VIAL.NEB. INHALATION ×2 (07:15→19:00)
[2022-07-18] MEDS: Calcium Acetate 667 MG Capsule PO ×3 (08:37→16:29)
[2022-07-18] MEDS: Folic Acid/Vitamin B Comp W-C 1 Capsule 1 CAP PO (11:21)
[2022-07-18] MEDS: Glycerin/Hypromellose/PEG400 15 ml Bottle 1 DRP EACH EYE (11:21)
--- NOTE | 2022-07-18 11:48 | PN.HOSP_ITS ---
Reason for Visit Reason for Visit: Facial weakness (07/17/22) Aphasia (07/17/22) Dysarthria and anarthria (07/17/22) Subjective Subjective No issues overnight. Patient's communication is more clear today. NIH is are down to 2 consistently mostly for speech. MRI will be done this afternoon at 24 hours post tPA infusion and after dialysis needles are removed out of left upper extremity. Objective Data Objective Data Vital Signs: Vital Signs Temp Pulse Resp BP Pulse Ox O2 Del Method 98.5 F 86 26 H 136/55 H 100 Room Air 07/18/22 11:00 07/18/22 11:00 07/18/22 11:00 07/18/22 11:00 07/18/22 11:00 07/18/22 11:00 Oxygen Delivery Method Room Air Weight: 71.8 kg Body Mass Index (BMI) 27.1 Intake & Output: Intake and Output for Last 24 Hours 07/16/22 07/17/22 07/18/22 23:59 23:59 23:59 Intake Total 1150 / 1150 0 / 0 Output Total 0 / 0 0 / 0 Balance 1150 / 1150 0 / 0 Lab / Micro Data Result Diagrams: 07/18/22 05:25 07/18/22 05:25 Labs: Laboratory Results - last 24 hr 07/17/22 11:10: Hemoglobin A1c 5.2 07/18/22 05:25: WBC 6.4, RBC 3.54 L, Hgb 10.1 L, Hct 32.2 L, MCV 91.0, MCH 28.5, MCHC 31.4 L, RDW Std Deviation 47.5 H, RDW Coeff of Lizett 14.2, Plt Count 137 L, MPV 10.7, Immature Gran % (Auto) 0.300, Neut % (Auto) 48.0, Lymph % (Auto) 37.5, [place] % (Auto) 9.5, Eos % (Auto) 3.3, Baso % (Auto) 1.4 H, Absolute Neuts (auto) 3.1, Absolute Lymphs (auto) 2.40, Nucleated RBC % 0 07/18/22 05:25: Sodium 136, Potassium 4.6, Chloride 99, Carbon Dioxide 32.0, Anion Gap 5, BUN 29 H, Creatinine 6.69 H, Estim Creat Clear Calc 5.21, Est GFR (MDRD) Af Amer 8 L, Est GFR (MDRD) Non-Af 6 L, BUN/Creatinine Ratio 4.3 L, Glucose 83, Calcium 8.1 L, Phosphorus 5.6 H, Magnesium 2.1, Total Bilirubin 0.50, AST 16, ALT 13, Alkaline Phosphatase 58, Total Protein 6.1 L, Albumin 2.9 L, Globulin 3.2, Albumin/Globulin Ratio 0.9, Triglycerides 31, Cholesterol 104, LDL Cholesterol 44, VLDL Cholesterol 6, HDL Cholesterol 54, TSH 2.18 Radiography Diagnostic Testing: Radiology Impression Chest X-Ray 07/17/22 11:42 IMPRESSION: 1. No acute findings in the chest. 2. No interval change when compared to 12/15/2019. Electronically Signed: Jey Rollins MD at 12:23 EST , Physical Exam Const alert, no apparent distress and well nourished Constitutional Narrative: Elderly -[place] female, sitting up in bed watching television, appears comfortable nontoxic, still talking somewhat nonsensical but makes much more sense than she did yesterday in the emergency department. Oriented to self and place but not month or year HEENT head/scalp atraumatic and moist oral mucous membranes HEENT Narrative: Dentition is good, Mallampati is 1-2, no thrush Eyes PERRL and EOMs intact bilaterally Resp normal respiratory effort, no retractions, no use of accessory muscles and clear to auscultation bilaterally Auscultation: Negative for rales, rhonchi or wheezes Cardio regular rate, regular rhythm, S1 normal heart sound, S2 normal heart sound, no murmurs, no rub, no gallops and no clicks GI normal to inspection, nondistended, normoactive bowel sounds, soft to palpation and non-tender Extremity no clubbing, cyanosis or edema Extremity Narrative: Left upper extremity with fistula, needles in place, palpable thrill with positive bruit Neuro CN's II-XII intact bilaterally, moves all extremities and no focal motor deficits Neuro Narrative: Speech is still somewhat abnormal with intermittent expressive aphasia, receptive speech is normal and patient is following commands consistently, still mild confusion but much improved overall Speech: Negative for speech normal Psych affect normal Psych Narrative: Very pleasant Assessment & Plan Assessment/Plan (1) Received intravenous tissue plasminogen activator (tPA) in emergency department: (2) Stroke: (3) Dysarthria: (4) Aphasia: (5) Facial droop: (6) Left-sided weakness: PLAN: Plan Ischemic stroke -Patient presented with expressive aphasia, some dysarthria, left-sided facial droop, left-sided weakness -CT of the head was negative -CTA of the head and neck with no LVO -tPA given the emergency department around 1215 -Start aspirin and DVT prophylaxis if MRI is negative for any hemorrhagic transformation -Echocardiogram--> pending should be done tomorrow morning -MRI today after 24-hour carl from tPA -Consult SOC neurology after MRI is complete -Discontinue bedrest after 24 hours out of tPA -Lipids are well controlled with a total cholesterol 104/LDL 44/HDL 54 -Hemoglobin A1c was 5.2 -PT/OT at 24 hours after tPA--> suspect they will get to her till tomorrow -Consult SOC neurology after imaging obtained -Ischemic stroke protocol in place End-stage renal disease on dialysis -Patient was at dialysis on the day of presentation -Suspect Tuesday dialysis -Continue home binders -Nephrology following consult is pending Hypertension -Restart home nifedipine for tomorrow morning -As needed medication available Hyperlipidemia -With stroke presentation we will utilize high intensity dose statin 80 mg nightly -Hold home dose 20 mg -Lipids are well controlled with a total cholesterol 104/LDL 44/HDL 54 History of stroke -No residual deficits per discussion with family -Received tPA at that time -Summer 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 anemia secondary to chronic renal disease -Hemoglobin stable -Repeat CBC in a.m. Glaucoma -Continue home eyedrops Chronic HFpEF -Diastolic in nature -Compensated -Dialysis for volume management COPD/asthma -Continue home inhalers DVT prophylaxis -SCDs -We will start chemoprophylaxis this evening as long as there is no hemorrhagic transformation on MRI CODE STATUS -Full code per discussion prior to admission with family Charges/Coding Visit Charges Inpatient E&M: 47132 Subs Hosp L2
--- NOTE | 2022-07-18 12:33 | MRI_ITS ---
STUDY: MRI BRAIN WITHOUT CONTRAST REASON FOR EXAM: Female, 87 years old. Stroke 24 s/p tpa TECHNIQUE: Standardized multiplanar fat and water weighted pulse sequences were obtained. COMPARISON: 11/01/2019, CT 07/17/2022 FINDINGS: There is severe cerebral atrophy with widening of the extra-axial spaces and ventricular dilatation. There are multiple confluent white matter hyperintensities, distributed throughout the deep white matter tracts of the cerebral hemispheres, consistent with severe chronic white matter ischemic changes. Encephalomalacia and gliosis in the left temporal lobe consistent with a chronic infarct. There is no evidence for recent intracranial ischemia or other cause of cytotoxic edema on diffusion weighted imaging (DWI). Normal T2* images of the brain without demonstrated susceptibility artifact. There is no demonstrated hemosiderin stain. Normal bilateral basal ganglia. Normal thalami. There is no extra-axial fluid accumulation. Normal flow voids within the major intracranial circulation suggesting patency by spin echo criteria. Normal sella turcica, pituitary gland, infundibular stalk, optic chiasm and hypothalamus. Normal tectal plate and pineal gland. Normal midbrain, bree and medulla. Normal cerebellum. Normal basal cisterns. 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 Normal bilateral internal auditory canals. There are bilateral ocular lens implants with otherwise normal intraorbital contents. There is mucoperiosteal inflammatory disease of the paranasal sinuses consistent with mild chronic sinusitis. Normal calvarium and skull base. Normal visualized soft tissue structures. Normal visualized upper cervical spine. MRI/Brain without Contrast IMPRESSION: Involutional changes of the brain, as described above. No acute infarct. Electronically Signed: Steve Pelayo MD at 14:53 EST ,
--- NOTE | 2022-07-18 12:40 | NURSING ---
Dialysis needles removed from CULLEN fistula. Manual pressure held for 15 minutes, hemostasis achieved. Dressed w/ gauze and elastoplast tape, wrapped loosely w/ SUBHA wrap to protect site during MRI. Pt tolerated well.
--- NOTE | 2022-07-18 14:27 | TELEMED_ITS ---
[facility] Telemed has confirmed receipt of a request for visit. This document confirms receipt of the order initiating the consult. To find the results of the consultation, please view the patient's reports for the scanned Telemed Consult.
[2022-07-18] MEDS: Ensure Clear 120 ML Liquid PO (16:30)
[2022-07-18] MEDS: NIFEdipine 60 MG Tablet PO (16:30)
[2022-07-18] MEDS: Latanoprost 0.005% 1 Bottle 1 DRP RIGHT EYE (21:42)
[2022-07-18] MEDS: Atorvastatin Calcium 80 MG Tablet PO (21:44)
[2022-07-18] MEDS: Timolol 0.5% 5ML OPTH.BTL 1 DRP EACH EYE (21:46)
[2022-07-18] MEDS: Heparin Injection (Vial) 5,000 UNIT/ML VIAL 5000 UNIT SC (21:46)
[2022-07-19] VITALS (7 sets, daily range): BP systolic 120–153; BP diastolic 55–69; PULSE 77–86; RESP 15–22; TEMP 36.5–36.7; O2SAT 95–97; BMI 26.1
[2022-07-19 04:59] LABS: Absolute Lymphocyte Count 2.68 X10^3/uL (0.83-4.51); Absolute Neutrophil Count 3.3 X10^3/uL (2.0-7.7); Basophil# 0.09 X10^3/uL; Basophil% 1.3 % (0-1); Eosinophil# 0.31 X10^3/uL; Eosinophils% 4.3 % (0-5); Hematocrit 32.2 % (37-47); Hemoglobin 10.3 g/dL (12.0-15.0); Lymphocyte # 2.68 X10^3/ul (0.83-4.51); Lymphocyte % 37.4 % (19-41); Mean Corpuscular Hgb 28.7 pg (27.0-32.0); Mean Corpuscular Volume 89.7 fL (81-99); Mean Platelet Vol. 10.6 fl (6.2-12.0); Monocyte# 0.73 X10^3/uL; Monocyte% 10.2 % (0-10); NRBC Flagged by Analyzer 0 % (0-5); Neutrophil # 3.33 X10^3/uL (2.7-7.7); Neutrophil % 46.5 % (47-70); Platelet Count 146 K/mm3 (150-450); RBC Distribution Width CV 14.3 % (11.6-14.6); RBC Distribution Width SD 46.8 fl (35.1-43.9); Red Blood Count 3.59 M/mm3 (4.2-5.4); White Blood Count 7.2 K/mm3 (4.4-11.0)
[2022-07-19] MEDS: Heparin Injection (Vial) 5,000 UNIT/ML VIAL 5000 UNIT SC (05:01)
[2022-07-19] MEDS: Levothyroxine 100 MCG Tablet PO (05:01)
[2022-07-19 05:22] LABS: Anion Gap 9 (5-15); BUN 50 mg/dL (7-18); BUN/Creat Ratio 5.9 RATIO (10-20); Calcium,Total 8.4 mg/dL (8.5-10.1); Chloride 96 mmol/L (98-107); Creatinine, Serum 8.47 mg/dL (0.55-1.02); EST Glomerular Filtration Rate 5 mL/min (>60); Est Glom Filt Rate - Afr Amer 6 mL/min (>60); Estimated Creatinine Clearance 4.12 ml/min; Glucose 80 mg/dL (74-106); Magnesium 2.3 mg/dL (1.6-2.6); Phosphorus 6.7 mg/dL (2.5-4.9); Sodium Level 135 mmol/L (136-145)
[2022-07-19] MEDS: Albuterol 2.5 MG/3 ML VIAL.NEB. INHALATION ×2 (07:26→13:23)
[2022-07-19] MEDS: Budesonide Respules 0.5 MG/2 ML AMPUL.NEB. INHALATION (07:26)
--- NOTE | 2022-07-19 07:44 | PN.CC_ITS ---
Assessment & Plan Assessment/Plan (1) Stroke: PLAN: Plan RECOMMENDATIONS: 1. Await EEG 2. Obtain echocardiogram per CVA protocol 3. PT/OT evaluations once cleared on repeat head imaging. 4. Continue current blood pressure medications 5. Hemodynamically stable on room air. Will sign off from a critical care perspective 6. Okay to leave the intensive care unit from my perspective IMPRESSIONS: 1. Acute CVA status post tenecteplase The patient presented from her dialysis center with left-sided weakness, facial droop and dysarthria. She was felt to be a candidate for tenecteplase, which was administered. The patient's neurologic symptoms have improved. Accordingly, the patient was maintained and monitored in the ICU per protocol for 24 hours. However, MRI does not show any active infarct. Some concern for possible Rowdy's paralysis. EEG has been ordered. PT OT okay to evaluate from my perspective. Given stable neurologic and hemodynamic status, will sign off from a critical care perspective 2. End-stage renal disease on hemodialysis Ongoing dialysis support per nephrology recommendations. 3. Prior history of CVA/hypertension/hyperlipidemia/heart failure with preserved ejection fraction/asthma Complicates care, management, recovery and prognosis. Continue home medications as indicated. This note was generated with [employer] dictation software. It may contain incorrect words, spelling, and punctuation that were not noted in checking the note before signing. Subjective Subjective Patient did well overnight. No hemodynamic concerns were reported. Patient's NIH remains at 2. Patient did have an MRI overnight that showed only involutional changes with no CVA. Patient subsequently had an EEG at 630 this morning, but results are still pending. Objective Data Objective Data Vital Signs: Vital Signs Temp Pulse Resp BP Pulse Ox O2 Del Method 36.5 C L 81 18 135/61 H 95 Room Air 07/19/22 05:07 07/19/22 07:28 07/19/22 07:28 07/19/22 05:07 07/19/22 07:28 07/19/22 07:28 Oxygen Delivery Method Room Air Weight: 71.8 kg Body Mass Index (BMI) 27.1 Intake & Output: Intake and Output for Last 24 Hours 07/17/22 07/18/22 07/19/22 23:59 23:59 23:59 Intake Total 1150 / 1150 120 / 120 Output Total 0 / 0 0 / 0 300 / 300 Balance 1150 / 1150 120 / 120 -300 / -300 Lab / Micro Data Attestation: I reviewed the patient's lab results. Result Diagrams: 07/19/22 04:50 07/19/22 04:50 Labs: Laboratory Results - last 24 hr 07/19/22 04:50: WBC 7.2, RBC 3.59 L, Hgb 10.3 L, Hct 32.2 L, MCV 89.7, MCH 28.7, MCHC 32.0, RDW Std Deviation 46.8 H, RDW Coeff of Lizett 14.3, Plt Count 146 L, MPV 10.6, Immature Gran % (Auto) 0.300, Neut % (Auto) 46.5 L, Lymph % (Auto) 37.4, [place] % (Auto) 10.2 H, Eos % (Auto) 4.3, Baso % (Auto) 1.3 H, Absolute Neuts (auto) 3.3, Absolute Lymphs (auto) 2.68, Nucleated RBC % 0 07/19/22 04:50: Sodium 135 L, Potassium 5.0, Chloride 96 L, Carbon Dioxide 30.0, Anion Gap 9, BUN 50 H, Creatinine 8.47 H*, Estim Creat Clear Calc 4.12, Est GFR (MDRD) Af Amer 6 L, Est GFR (MDRD) Non-Af 5 L, BUN/Creatinine Ratio 5.9 L, Glucose 80, Calcium 8.4 L, Phosphorus 6.7 H, Magnesium 2.3 Radiography Diagnostic Testing: Radiology Impression Brain MRI 07/18/22 12:33 IMPRESSION: Involutional changes of the brain, as described above. No acute infarct. Electronically Signed: Steve Pelayo MD at 14:53 EST , Physical Exam Const alert and no apparent distress Constitutional Narrative: Somewhat conversational, but slow to respond. Maintains eye contact General Appearance: cooperative HEENT normocephalic and head/scalp atraumatic Eyes PERRL, EOMs intact bilaterally and conjunctivae normal Neck supple General: trachea midline Chest inspection of chest normal Resp normal respiratory effort Auscultation: Negative for rales, rhonchi or wheezes Cardio regular rate, regular rhythm, S1 normal heart sound, S2 normal heart sound, no murmurs, no rub and no gallops GI normal to inspection, nondistended, normoactive bowel sounds Extremity no clubbing, cyanosis or edema Skin no rashes or lesions noted Neuro CN's II-XII intact bilaterally and moves all extremities Psych Mood & Affect: flat affect Charges/Coding Visit Charges Inpatient E&M: 17128 Subs Hosp L2
[2022-07-19] MEDS: Glycerin/Hypromellose/PEG400 15 ml Bottle 1 DRP EACH EYE (09:01)
[2022-07-19] MEDS: Folic Acid/Vitamin B Comp W-C 1 Capsule 1 CAP PO (09:01)
[2022-07-19] MEDS: Calcium Acetate 667 MG Capsule PO ×2 (09:01→13:06)
[2022-07-19] MEDS: NIFEdipine 60 MG Tablet PO (09:01)
[2022-07-19] MEDS: Timolol 0.5% 5ML OPTH.BTL 1 DRP EACH EYE (09:02)
[2022-07-19] MEDS: Ensure Clear 120 ML Liquid PO (09:07)
[2022-07-19] MEDS: Aspirin 81 MG TAB.CHEW PO (09:07)
--- NOTE | 2022-07-19 10:46 | CASEMGMT ---
Social Work Medical healthcare POA papers are scanned into the summary tab of the echart, with the living will provision initialed. Boston Salvador, daughter is listed as POA. AMANDA Reddy
--- NOTE | 2022-07-19 10:59 | CASEMGMT ---
Addendum entered by Daisha Barney 07/19/22 11:29: Social Work Updates sent via [facility] to [facility]. Green sheet on chart in event pt can return to [facility] today. AMANDA Reddy Original Note: Social Work Pt is here from [facility]. Pt's daughter is in the room, SW spoke w/daughter [place], confirmed w/her the plan will be for pt to return to [facility] at discharge, daughter declined a fdc facility list. PHQ-9 NOT completed as pt has dementia. SW called Lynda at [facility], confirmed pt is from there fpc and can return when ready. Updates to be send via [facility]. AMANDA Reddy
--- NOTE | 2022-07-19 12:04 | CON.PCM.RE_ITS ---
Assessment & Plan Assessment/Plan (1) ESRD (end stage renal disease) on dialysis: PLAN: dialysis TTS (2) Stroke: PLAN: s/p TPA with dysarthria, facial droop, left sided weakness. Neurology consulted (3) Dementia: (4) Hyperlipidemia: (5) Hypertension: PLAN: stable (6) Anemia: PLAN: stable HPI Consult Data Date of Consult: 07/19/22 HPI Narrative Reason for Consultation: ESRD renal mgmt HPI Narrative: LOUISE ZAVALA, is a 87 AAF with ESRD on dialysis TTS. She presented to [facility] ED after dialysis on 07/17 for stroke symptoms. She developed acute facial droop, left sided weakness, slurred speech towards the end of her dialysis treatment. She had tpa therapy in ED and admitted to ICU. She has a history of a stroke treated with tpa in 2019. She has underlying dementia. She is a poor historian. REPLACED BY [facility] Medical History Acute respiratory failure with hypoxia Anemia Asthma Cerebellar infarct Chronic diastolic (congestive) heart failure Chronic kidney disease (CKD) stage G5/A1, glomerular filtration rate (GFR) less than or equal to 15 mL/min/1.73 square meter and albuminuria creatinine ratio less than 30 mg/g Chronic renal failure, stage 5 Cough Dementia Elevated troponin I level End-stage renal disease (ESRD) Essential hypertension Glaucoma History of CVA (cerebrovascular accident) (12/15/19) Hyperlipidemia Iron deficiency anemia Iron deficiency anemia Metabolic acidosis Obesity (BMI 30.0-34.9) Problem with dialysis access Problem with dialysis access RENAL FAILURE STAGE 6 Respiratory failure with hypoxia Shortness of breath Speech apraxia Home Medications timolol maleate 0.5 % eye drops 1 drp EACH EYE BID GLAUCOMA 11/26/15 [History Last Taken 07/17/22] calcium acetate(phosphat bind) 667 mg capsule 1,334 mg PO TIDCM RENAL DIALYSIS 07/14/19 [History Last Taken 07/17/22] levothyroxine 100 mcg tablet 100 mcg PO DAILY 07/31/19 [History Last Taken 07/17/22] isosorbide mononitrate 60 mg tablet,extended release 24 hr 60 mg PO SUMOWEFR HTN 10/26/19 [History Last Taken 07/16/22] latanoprost 0.005 % eye drops 1 drp RIGHT EYE QHS GLAUCOMA 10/26/19 [History Last Taken 07/16/22] handicap placcard See Rx Instructions .Route .COMPLEX #1 ea 03/12/20 [Rx Last Taken Unknown] nifedipine 60 mg tablet,extended release 60 mg PO DAILY BLOOD PRESSURE 05/12/21 [History Last Taken 07/17/22] albuterol sulfate 90 mcg/actuation aerosol inhaler 2 inh inhalation Q4H PRN Shortness Of Breath 07/17/22 [History Last Taken Unknown] aspirin 81 mg tablet,delayed release 81 mg PO DAILY HEART HEALTH 07/17/22 [History Last Taken 07/17/22] atorvastatin 20 mg tablet 20 mg PO DAILY CHOLESTEROL 07/17/22 [History Last Taken 07/16/22 20:00] budesonide-formoterol HFA 160 mcg-4.5 mcg/actuation aerosol inhaler 1 inh inhalation DAILY SHORTNESS OF BREATH 07/17/22 [History Last Taken 07/17/22] budesonide-formoterol HFA 160 mcg-4.5 mcg/actuation aerosol inhaler 1 inh inhalation QHS SHORTNESS OF BREATH 07/17/22 [History Last Taken 07/16/22] dextran 70-hypromellose 0.1 %-0.3 % eye drops 1 drp ophthalmic (eye) DAILY 07/17/22 [History Last Taken 07/17/22] dextran 70-hypromellose 0.1 %-0.3 % eye drops 1 drp ophthalmic (eye) QHS 07/17/22 [History Last Taken 07/16/22] hydrocortisone probutate 0.1 % topical cream (Pandel) 1 applic topical Q12H PRN RASH/ITCHING 07/17/22 [History Last Taken Unknown] lidocaine-prilocaine 2.5 %-2.5 % topical cream 1 applic topical TUTHSA DIALYSIS 07/17/22 [History Last Taken 07/17/22] nutritional supplements 237 ml PO UD SUPPLEMENT 07/17/22 [History Last Taken 07/17/22] vitamin B complex and vitamin C no.20-folic acid 1 mg capsule 1 cap PO DAILY 07/17/22 [History Last Taken 07/17/22] Allergy/AdvReac Type Severity Reaction Status Date / Time erythromycin base Allergy Rash Verified 05/12/21 14:42 lisinopril Allergy Unknown Verified 05/12/21 14:42 NSAIDS (Non-Steroidal Allergy Other Verified 05/12/21 14:42 Anti-Inflamma Salicylates Allergy Other Verified 05/12/21 14:42 PROTEIN IN URINE DRUG Allergy Other Uncoded 05/06/21 12:21 Family History Mother Colon cancer Hypertension Father Hypertension Surgical History History of loop recorder (07/20/19) Hx of cataract extraction Hx of foot surgery Hx of hysterectomy Hx of thyroidectomy s/p left AV fistula creation (02/19/19) Social History Smoking Status: Former smoker alcohol intake: never substance use type: does not use caffeine: Yes what type of physical activity do you participate in: none frequency: does not exercise ROS Review of Systems ROS Unobtainable: due to mental condition, due to mental status and other Details: underlying dementia Constitutional Constitutional: Denies chills or fever(s) Respiratory/Chest Respiratory/Chest: Denies dry cough or shortness of breath at rest Gastrointestinal Gastrointestinal: Denies abdominal pain, nausea or vomiting Integumentary Integumentary: Denies rash Neurologic Neurologic: Reports weakness and other Psychiatric Psychiatric: Reports confusion and other Details: dementia Hematologic/Lymphatic Hematologic/Lymphatic: Reports anemia Physical Exam Const alert and no apparent distress Constitutional Narrative: poor historian due to dementia which is not new. Pt confused at baseline. Several attempts made to answer year, place correctly. General Appearance: well developed Resp clear to auscultation bilaterally Cardio regular rate GI non-tender and non-distended Auscultation: normoactive bowel sounds Palpation: soft Extremity General Extremity: AV fistula Neuro Neuro Narrative: mild slurred speech Sensorium / Orientation: awake Psych cooperative Lab / Micro Data Result Diagrams: 07/19/22 04:50 07/19/22 04:50 Labs: Laboratory Results - last 24 hr 07/19/22 04:50: WBC 7.2, RBC 3.59 L, Hgb 10.3 L, Hct 32.2 L, MCV 89.7, MCH 28.7, MCHC 32.0, RDW Std Deviation 46.8 H, RDW Coeff of Lizett 14.3, Plt Count 146 L, MPV 10.6, Immature Gran % (Auto) 0.300, Neut % (Auto) 46.5 L, Lymph % (Auto) 37.4, [place] % (Auto) 10.2 H, Eos % (Auto) 4.3, Baso % (Auto) 1.3 H, Absolute Neuts (auto) 3.3, Absolute Lymphs (auto) 2.68, Nucleated RBC % 0 07/19/22 04:50: Sodium 135 L, Potassium 5.0, Chloride 96 L, Carbon Dioxide 30.0, Anion Gap 9, BUN 50 H, Creatinine 8.47 H*, Estim Creat Clear Calc 4.12, Est GFR (MDRD) Af Amer 6 L, Est GFR (MDRD) Non-Af 5 L, BUN/Creatinine Ratio 5.9 L, Glucose 80, Calcium 8.4 L, Phosphorus 6.7 H, Magnesium 2.3 Radiology Impression Brain MRI 07/18/22 12:33 IMPRESSION: Involutional changes of the brain, as described above. No acute infarct. Electronically Signed: Steve Pelayo MD at 14:53 EST ,
--- NOTE | 2022-07-19 14:02 | PCM.TXEXTCAR ---
Diet Diet Order/Speech Therapy: 07/19/22 11:58 Diet: Cardiac - Heart Healthy Dietary Modifications:: Cardiac / Heart Healthy Sodium Restricted Is pt able to select menu?: No Routine Orders/Code Status Routine Lab Work: CBC and BMP Code Status: Full Code Therapies Physical Therapy: Eval and Treat Occupational Therapy: Eval and Treat Problem/Diagnosis (1) ESRD (end stage renal disease) on dialysis: Status: Acute Code(s): N18.6 - End stage renal disease; Z99.2 - Dependence on renal dialysis (2) Stroke: Status: Acute Code(s): I63.9 - Cerebral infarction, unspecified (3) Dementia: Status: Chronic Code(s): F03.90 - Unspecified dementia, unspecified severity, without behavioral disturbance, psychotic disturbance, mood disturbance, and anxiety (4) Hyperlipidemia: Status: Chronic Code(s): E78.5 - Hyperlipidemia, unspecified (5) Hypertension: Status: Chronic Code(s): I10 - Essential (primary) hypertension (6) Anemia: Status: Acute Code(s): D64.9 - Anemia, unspecified Allergies/Procedures Done in Hospital Allergies erythromycin base Allergy (Verified 05/12/21 14:42) Rash lisinopril Allergy (Verified 05/12/21 14:42) Unknown NSAIDS (Non-Steroidal Anti-Inflamma Allergy (Verified 05/12/21 14:42) Other Salicylates Allergy (Verified 05/12/21 14:42) Other PROTEIN IN URINE DRUG Allergy (Uncoded 05/06/21 12:21) Other Procedures: Electroencephalogram Type of Care/Length of Stay Estimated LOS: Convalescent Care Less Than 30 days Type of Care Needed: Skilled Rehab Potential: Good Prognosis: Good Additional Orders/Day of Discharge Day of Discharge: 07/19/22 Dietary and Speech Recommendations Dietitian Recommendations/Changes: Continue Cardiac, Renal diet to manage medical conditions. Speech Linguistic Eval Summary: Orientation: 10/30. Not oriented to , , day Namin/10 (unable to name phone, computer, and clipboard) Divergent: - animal: 5, increased to 8 with mod cues - M: 9 preservation noted on both tasks Following Directions: 2 step: 66% Reasonin/2 (which doesn't belong) Immediate Recall: 0/3 Delayed Recall: 1/3, increased to 3/3 with mod cues. Trial 2: 0/3 Repetition of sentences: 80% acc Automatics: 3/3 with mod to max cues to understand task Opposites: 4/4 with mod to max cues to understand task Function of objects: 4/4 Digit Span: 0/3 Pt did not recognize which daughter came to visit. Pt with random, socially inappropriate comments throughout the exam and required mod redirection to tasks. Discharge Plan Admission Admit Date/Time: 07/17/22 12:29 Attending Provider: Micha Feliciano Primary Care Provider: Wayne Leahy Chi Consulting Providers: Kianna Patrick ; Michel Lee ; Lonny Joseph ; Darnell García ; Esteban Waddell ; Mounika Mayes NP ; Melody Patrick Discharge Orders/Prescriptions Prescriptions: Continued levothyroxine 100 mcg tablet 100 mcg PO DAILY handicap placcard See Rx Instructions .ROUTE .COMPLEX Qty: 1 0RF Rx Instructions: Duration: lifetime Diagnosis: CVA, debility nifedipine 60 mg tablet extended release 60 mg PO DAILY timolol maleate 1 DROP drops 1 drp EACH EYE BID calcium acetate(phosphat bind) 667 MG capsule 1,334 mg PO TIDCM latanoprost 1 DROP bottle 1 drp RIGHT EYE QHS isosorbide mononitrate 60 MG tablet 60 mg PO SUMOWEFR atorvastatin 20 mg Tablet 20 mg PO DAILY nutritional supplements Liquid 237 ml PO UD Pandel 0.1 % Cream 1 applic TOPICAL Q12H PRN (Reason: RASH/ITCHING) lidocaine-prilocaine 2.5-2.5 % Cream 1 applic topical TUTHSA B complex with C 20-folic acid 1 mg Capsule 1 cap PO DAILY albuterol sulfate 90 mcg/actuation HFA aerosol inhaler 2 inh INHALATION Q4H PRN (Reason: Shortness Of Breath) budesonide-formoterol 160-4.5 mcg/actuation Hfa Aerosol Inhaler 1 inh INHALATION QHS budesonide-formoterol 160-4.5 mcg/actuation Hfa Aerosol Inhaler 1 inh INHALATION DAILY dextran 70-hypromellose 0.1-0.3 % Drops 1 drp ophthalmic (eye) QHS dextran 70-hypromellose 0.1-0.3 % Drops 1 drp OPHTHALMIC (EYE) DAILY aspirin 81 MG tablet,delayed release (DR/EC) 81 mg PO DAILY Referrals / Follow Up: Wayne Leahy Chi, MD [Primary Care Provider] - Disposition Disposition (needs filled in before D/C Order can be placed): [facility]
--- NOTE | 2022-07-19 16:00 | CHAPLAIN ---
Addendum entered by Wilian Velez 07/19/22 16:02: charting was inadvertently stopped before completion; compassionate listening and affirmation to patient; presence and prayer given; pt talks about living in [place] but cannot describe her address or remember what sikhism she attended there; prayer was given Original Note: Type of Pastoral Visit _x__ Initial Visit ___ Follow-up Visit ___ On-call Visit ___ General Patient Visit ___ Spiritual Assessment ___ Family Conference ___ Bereavement ___ Rapid Response ___ Code Blue ___ Other (describe below) Pastoral Care Referral From ___ Patient ___ Family _x__ Nurse ___ Physician ___ Assistant Winemaker ___ Stocking And Box Shop Supervisor ___ Other (describe below) Sacrament/Intervention _x__ Active listening ___ Anointing ___ Rastafarian ___ Bereavement ___ Communion ___ Lillie exploration ___ ___ Life review _x__ Prayer ___ Reconciliation ___ Sacrament of Sick _x__ Supportive presence ___ Wedding ___ Other (describe below) Pastoral Comments patient visit is recommended by RN; pt is asking for soup or potato salad to eat for lunch; pt was given a lunch prior but she did not want it; staff is aware of her request that evidently she continues to ask for even after lunch was given to her;
--- NOTE | 2022-07-19 16:22 | CASEMGMT ---
RN CM NOTE: Per [facility] Nikia, pt to have ST @ [facility]. Call placed to [facility] and spoke w/nurse Jena. Per Jena, pt is already receiving ST there and she states will ensure that this is resumed, stating she will call ST after this call to let them know. Sergio CHAWLAN RN CM
--- NOTE | 2022-07-19 16:34 | PCM.DC.SUM ---
Providers Date of Admission: 07/17/22 Primary Care Physician: Dr. Wayne Leahy MD Consultations 07/17/22 11:30 Consult: Radiology Interventional Physician / Pulmonary Medicine Routine Consulting Provider: Pulmonary Medicine hardeep Rondon Reason for Consult: stroke for thrombolytic administration EMERGENT Consult: Yes Notified: Yes Date Notified: 07/17/22 Time Notified: 16:14 Method of Notification: Text Comments:: Consult may be done in ED or ICU 07/17/22 13:14 Consult: Nephrology Routine Consulting Provider: Kianna Patrick Reason for Consult: ESRD-PKTY EMERGENT Consult: No Notified: Yes Date Notified: 07/17/22 Time Notified: 15:09 Method of Notification: Verbal Comments:: paged Reason For Visit: ISCHEMIC STROKE Diagnosis Discharge Diagnosis (1) ESRD (end stage renal disease) on dialysis: Status: Acute Code(s): N18.6 - End stage renal disease; Z99.2 - Dependence on renal dialysis (2) Stroke: Status: Acute Code(s): I63.9 - Cerebral infarction, unspecified (3) Dementia: Status: Chronic Code(s): F03.90 - Unspecified dementia, unspecified severity, without behavioral disturbance, psychotic disturbance, mood disturbance, and anxiety (4) Hyperlipidemia: Status: Chronic Code(s): E78.5 - Hyperlipidemia, unspecified (5) Hypertension: Status: Chronic Code(s): I10 - Essential (primary) hypertension (6) Anemia: Status: Acute Code(s): D64.9 - Anemia, unspecified Medications at Discharge Home Medications timolol maleate 0.5 % eye drops 1 drp EACH EYE BID GLAUCOMA 11/26/15 calcium acetate(phosphat bind) 667 mg capsule 1,334 mg PO TIDCM RENAL DIALYSIS 07/14/19 levothyroxine 100 mcg tablet 100 mcg PO DAILY 07/31/19 isosorbide mononitrate 60 mg tablet,extended release 24 hr 60 mg PO SUMOWEFR HTN 10/26/19 latanoprost 0.005 % eye drops 1 drp RIGHT EYE QHS GLAUCOMA 10/26/19 handicap placcard See Rx Instructions .Route .COMPLEX #1 ea 03/12/20 nifedipine 60 mg tablet,extended release 60 mg PO DAILY BLOOD PRESSURE 05/12/21 albuterol sulfate 90 mcg/actuation aerosol inhaler 2 inh inhalation Q4H PRN Shortness Of Breath 07/17/22 aspirin 81 mg tablet,delayed release 81 mg PO DAILY HEART HEALTH 07/17/22 atorvastatin 20 mg tablet 20 mg PO DAILY CHOLESTEROL 07/17/22 budesonide-formoterol HFA 160 mcg-4.5 mcg/actuation aerosol inhaler 1 inh inhalation DAILY SHORTNESS OF BREATH 07/17/22 budesonide-formoterol HFA 160 mcg-4.5 mcg/actuation aerosol inhaler 1 inh inhalation QHS SHORTNESS OF BREATH 07/17/22 dextran 70-hypromellose 0.1 %-0.3 % eye drops 1 drp ophthalmic (eye) DAILY 07/17/22 dextran 70-hypromellose 0.1 %-0.3 % eye drops 1 drp ophthalmic (eye) QHS 07/17/22 hydrocortisone probutate 0.1 % topical cream (Pandel) 1 applic topical Q12H PRN RASH/ITCHING 07/17/22 lidocaine-prilocaine 2.5 %-2.5 % topical cream 1 applic topical TUTHSA DIALYSIS 07/17/22 nutritional supplements 237 ml PO UD SUPPLEMENT 07/17/22 vitamin B complex and vitamin C no.20-folic acid 1 mg capsule 1 cap PO DAILY 07/17/22 Hospital Course Operations None Procedures 2-D Echocardiogram and Electroencephalogram Summary of Care Provided Minutes Spent on Discharge: 40 Hospital Course: Per HPI: LOUISE ZAVALA, is a 87 F who presented to the emergency department at [facility] on 07/17 2022 from her dialysis center with acute onset dysarthria/aphasia/left facial droop/left-sided weakness that started at the end of her dialysis session today.? She does have history of previous stroke in 2019.? Family states she was fine prior to to the event at dialysis.? She does have some mild baseline dementia but is typically alert and oriented x3.? Family reports with previous stroke she had some expressive type aphasia as well.? NIH is 5 at the present time.? Left upper extremity and lower extremity weakness has resolved.? There is no further left facial droop.? NIH was higher previously when presented but now status post tPA.? Patient is speaking some gibberish upon my exam and intermittently following commands.? [facility] is a chronic [facility].? Sees Dr. Kianna Patrick for dialysis. Vital signs at presentation demonstrated a temperature of 97.4, heart rate 88, blood pressure 138/62, respiratory 16, oxygen saturations are 98% on room air.? CBC is overall unremarkable with a stable mild anemia having hemoglobin of 11.8.? Coags are normal.? Chemistry panel shows a chronic renal failure with a BUN of 19 and a serum creatinine of 4.28.? Overall electrolytes are unremarkable.? Initial troponin was 37.? EKG shows normal sinus rhythm with a first-degree heart block and mild QTc prolongation.? There are no changes consistent with acute ischemia however patient has chronic T wave inversions in the anterior lateral leads patient is chest pain-free.? CT of her brain demonstrates chronic involutional changes of the brain with no acute hemorrhage and an old right occipital lobe and old left temporal lobe infarct as well as old lacunar infarcts in the bilateral basal ganglia.? CTA of the head and neck was unremarkable for any LVO.? Chest x-ray shows no acute chest findings and no interval change since 2019. She was given tPA in the emergency department.? Her dialysis needles were not removed prior to coming from dialysis nor were they removed prior to her receiving tPA so they will need to stay in place in her left upper extremity fistula until 24 hours after tPA dosing. Hospital Course: 1. Ischemic stroke status post tPA?87-year-old presented to the hospital with signs of a stroke, she does have a history of previous stroke. She was given thrombolytics in the ER at the direction of neurology unfortunate this was given while she had her dialysis needles in however she has not had any significant hemorrhage. MRI was negative for for any hemorrhagic conversion so she can resume her at aspirin as well as Lipitor, if she can tolerate would increase her Lipitor to either 40 or 80 mg however I do acknowledge that at her age there is unlikely to be any significant mortality benefit to be increased. She did have an EEG today which was negative for any seizure-like activity so I discussed the situation with the process camera operator who felt that she would be stable and appropriate for discharge to the SNF today. 2. End-stage renal disease on dialysis, hypertension, hyperlipidemia, glaucoma, chronic diastolic CHF, COPD are all chronic medical conditions which complicate her care. Her home medications were continued where appropriate. Physical Exam Narrative General: Alert, cooperative, No apparent distress HEENT: Atraumatic, PERRLA, EOMI, Normocephalic Oral: Moist Mucosa Neck: Supple, No JVD Lungs: Clear to auscultation, Normal air movement, No rhonchi, No wheeze, No rales Cardiovascular: Regular rate, Regular Rhythm, Normal S1, Normal S2, No murmurs Abdomen: Soft, Non Tender, Non-Distended, No Hepato-splenomegaly Extremities: No edema, Capillary Refill Less than 3 Seconds Skin: No rashes, No breakdown Musculoskeletal: No Tenderness to Palpation of Joints or Extremities Neurological: Cranial nerves II-XII grossly intact, Motor Exam 5/5 strength throughout, Sensory exam intact to light touch and pain Psych/Mental Status: Normal Affect, Appropriate Weight / BMI Weight Weight: 153 lb 0.013 oz Body Mass Index (BMI) 26.1 ABG / Lab / Microbiology Data Result Diagrams: 07/19/22 04:50 07/19/22 04:50 Laboratory: Laboratory Results - last 24 hr 07/19/22 04:50: WBC 7.2, RBC 3.59 L, Hgb 10.3 L, Hct 32.2 L, MCV 89.7, MCH 28.7, MCHC 32.0, RDW Std Deviation 46.8 H, RDW Coeff of Lizett 14.3, Plt Count 146 L, MPV 10.6, Immature Gran % (Auto) 0.300, Neut % (Auto) 46.5 L, Lymph % (Auto) 37.4, [place] % (Auto) 10.2 H, Eos % (Auto) 4.3, Baso % (Auto) 1.3 H, Absolute Neuts (auto) 3.3, Absolute Lymphs (auto) 2.68, Nucleated RBC % 0 07/19/22 04:50: Sodium 135 L, Potassium 5.0, Chloride 96 L, Carbon Dioxide 30.0, Anion Gap 9, BUN 50 H, Creatinine 8.47 H*, Estim Creat Clear Calc 4.12, Est GFR (MDRD) Af Amer 6 L, Est GFR (MDRD) Non-Af 5 L, BUN/Creatinine Ratio 5.9 L, Glucose 80, Calcium 8.4 L, Phosphorus 6.7 H, Magnesium 2.3 Microbiology: Microbiology 07/19/22 14:15 Nasal Secretion SARS-CoV-2 Antigen (Rapid) - Final Radiography Diagnostic Testing: Radiology Impression Echocardiogram 07/17/22 12:41 Interpretation Summary Normal LV size. The estimated ejection fraction is 55 %. Stage 1 diastolic dysfunction. The left atrium is mildly enlarged. Mild segmental systolic dysfunction (see wall motion). Ordering Physician: Melody Patrick Referring Physician: Wayne Leahy Chi Performed By: Mikal Hawk RCS Meaningful Use Info Meaningful Use Diagnoses (Choose all that apply): None applicable Discharge Plan Admission Admit Date/Time: 07/17/22 12:29 Attending Provider: Micha Feliciano Primary Care Provider: Wayne Leahy Chi Consulting Providers: Kianna Patrick ; Michel Lee ; Lonny Joseph ; Darnell García ; Esteban Waddell ; Mounika Mayes ECONOMIC SPECIALIST ; Melody Patrick Discharge Orders/Prescriptions Prescriptions: Continued levothyroxine 100 mcg tablet 100 mcg PO DAILY handicap placcard See Rx Instructions .ROUTE .COMPLEX Qty: 1 0RF Rx Instructions: Duration: lifetime Diagnosis: CVA, debility nifedipine 60 mg tablet extended release 60 mg PO DAILY timolol maleate 1 DROP drops 1 drp EACH EYE BID calcium acetate(phosphat bind) 667 MG capsule 1,334 mg PO TIDCM latanoprost 1 DROP bottle 1 drp RIGHT EYE QHS isosorbide mononitrate 60 MG tablet 60 mg PO SUMOWEFR atorvastatin 20 mg Tablet 20 mg PO DAILY nutritional supplements Liquid 237 ml PO UD Pandel 0.1 % Cream 1 applic TOPICAL Q12H PRN (Reason: RASH/ITCHING) lidocaine-prilocaine 2.5-2.5 % Cream 1 applic topical TUTHSA B complex with C 20-folic acid 1 mg Capsule 1 cap PO DAILY albuterol sulfate 90 mcg/actuation HFA aerosol inhaler 2 inh INHALATION Q4H PRN (Reason: Shortness Of Breath) budesonide-formoterol 160-4.5 mcg/actuation Hfa Aerosol Inhaler 1 inh INHALATION QHS budesonide-formoterol 160-4.5 mcg/actuation Hfa Aerosol Inhaler 1 inh INHALATION DAILY dextran 70-hypromellose 0.1-0.3 % Drops 1 drp ophthalmic (eye) QHS dextran 70-hypromellose 0.1-0.3 % Drops 1 drp OPHTHALMIC (EYE) DAILY aspirin 81 MG tablet,delayed release (DR/EC) 81 mg PO DAILY Referrals / Follow Up: Wayne Leahy Chi, MD [Primary Care Provider] - Disposition Disposition (needs filled in before D/C Order can be placed): Shelter Facility Charges/Coding Visit Charges Inpatient E&M: 06699 Disch Hosp >30min
== END 2022-07-19 16:15 | disposition skilled nursing facility (03) | DRG 61 ==
LOC: ED 12:32 → ICU 12:41
PROVIDERS: Admitting Provider Internal Medicine; Emergency Provider Emergency Medicine; PCP Family Medicine Geriatric Medicine; Visit Provider Family Medicine
DX: I63.9 Cerebral infarction, unspecified (principal); G81.94 Hemiplegia, unspecified affecting left nondominant side; R47.1 Dysarthria and anarthria; R47.81 Slurred speech; R29.810 Facial weakness; R47.01 Aphasia; R29.711 NIHSS score 11; I13.2 Hypertensive heart and chronic kidney disease with heart failure and with stage 5 chronic kidney disease, or end stage renal disease; I50.32 Chronic diastolic (congestive) heart failure; N18.6 End stage renal disease; D63.1 Anemia in chronic kidney disease; Z99.2 Dependence on renal dialysis; J44.9 Chronic obstructive pulmonary disease, unspecified; F03.A0 Unspecified dementia, mild, without behavioral disturbance, psychotic disturbance, mood disturbance, and anxiety; E78.5 Hyperlipidemia, unspecified; I69.311 Memory deficit following cerebral infarction; H40.9 Unspecified glaucoma; Z79.82 Long term (current) use of aspirin; Z20.822 Contact with and (suspected) exposure to COVID-19; Z79.890 Hormone replacement therapy; Z79.899 Other long term (current) drug therapy; Z87.891 Personal history of nicotine dependence
CPT/HCPCS: 70450; 70496; 70498; 70551; 71045; 80048; 80053; 80061; 83036; 83735; 84100; 84443; 84484; 85025; 85610; 85730; 87426; 92523; 93005; 93306; 94640; 95819; 97162; 97166; 99252; 99285; J3101; J7030; Q9957; Q9967; A4216; G0463

== ENCOUNTER 2022-12-05 12:28 | Observation (INO) | payer MEDICARE, MEDICAID, SELFPAY ==
[2022-12-05] VITALS (14 sets, daily range): BP systolic 130–149; BP diastolic 60–65; PULSE 76–89; RESP 13–17; TEMP 36.6–37; O2SAT 94–97; BMI 25.9; BMI 25.3
--- NOTE | 2022-12-05 12:35 | CT_ITS ---
INDICATION: Neuro deficit, acute, stroke suspected EXAMINATION: CTA HEAD - CTA Head and Neck Stroke W/ Contrast (and W/O if performed) TECHNIQUE: [place]/head CT angiogram protocol was performed following IV contrast. Routine carotid CT angiogram protocol was performed without and with IV contrast. NASCET criteria using the distal ICAs for comparison were used for evaluation of stenoses. 3D reconstructions were reviewed of the CT angiogram head and neck. A radiation dose optimization technique was used for this scan. IV Contrast dosage and agent: 100 cc [id number] COMPARISON: CTA head and neck 07/17/2022 FINDINGS: --Anterior cerebral circulation: ACAs: No significant stenosis at the visualized segments. ACOM: Present. MCAs: No significant stenosis at the visualized segments. --Posterior cerebral circulation: PCOMs: Present bilaterally. logistic manager: No significant stenosis at the visualized segments. BASILAR ARTERY: No significant stenosis. --Carotid and vertebral circulation: AORTIC ARCH AND BRANCHES: Left common carotid artery arises from a common trunk with the right innominate artery. RIGHT CCA: No occlusion, significant stenosis or dissection. RIGHT ICA: No occlusion, significant stenosis or dissection. LEFT CCA: No occlusion, significant stenosis or dissection. LEFT ICA: No occlusion, significant stenosis or dissection. RIGHT VERTEBRAL ARTERY: No occlusion, significant stenosis or dissection. LEFT VERTEBRAL ARTERY: No occlusion, significant stenosis or dissection at cervical level. Left vertebral artery however again demonstrates significant tapering intracranially, unchanged from prior exam.. Left vertebral artery appears to terminate in small inferior cerebellar branches. NECK SOFT TISSUES: Multinodular appearance of the thyroid gland again noted. LUNG APICES: Clear. BONES: Prominent diffuse spondylosis. CT/STROKE CTA Head AND Neck W/Con IMPRESSION: No acute arterial occlusion, significant stenosis or intracranial aneurysm. No interval change. N.B. : The above Results were Read Back by Andres Castillo MD to Jey Benitez MD, and understanding confirmed on 12/05/2022 13:19:43 (ET). Electronically Signed: Andres Castillo MD at 13:30 EDT ,
--- NOTE | 2022-12-05 12:35 | CT_ITS ---
EXAM: CT HEAD WITHOUT INTRAVENOUS CONTRAST CLINICAL INDICATION: Neuro deficit, acute, stroke suspected TECHNIQUE: Multiple axial images were obtained of the head without intravenous contrast. This CT exam was performed using one or more of the following dose reduction techniques: automated exposure control, adjustment of the mA and/or kV according to patient size, and/or use of iterative reconstruction technique. COMPARISON: CT Head dated 07/17/2022 FINDINGS: BRAIN AND EXTRA-AXIAL SPACES: Chronic right frontal, right occipital and left temporal lobe infarcts again noted. Old lacunar infarct within the left thalamus. Areas of diminished white matter density noted within both cerebral hemispheres suggestive of chronic microvascular change. Prominence of the cortical sulci and ventricles related to volume loss change. No hemorrhage or mass effect. No acute ischemia. BONES/JOINTS: No suspicious lytic or blastic abnormality. SINUSES: No acute sinusitis. MASTOID AIR CELLS: Normal. Clear. ORBITS: Visualized globes, extraocular muscles, optic nerves and retrobulbar fat appear unremarkable. CT/STROKE Brain/Head without Cont IMPRESSION: 1. No acute intracranial abnormality. 2. Stable chronic ischemic changes. 3. Aspect score 10. N.B. : The above Results were Read Back by Andres Castillo MD to Jey Benitez MD, and understanding confirmed on 12/05/2022 12:53:55 (ET). Electronically Signed: Andres Castillo MD at 12:54 EDT ,
--- NOTE | 2022-12-05 12:47 | EDS_ITS ---
HPI History of Present Illness Chief Complaint: Stroke Alert Narrative Narrative: 87-year-old female past medical history of end-stage renal disease, hypertension, presents with her daughter because at hoahaoism, she became unresponsive. She became more confused and was slurring her speech. She was having difficulty talking. Patient denies that she is in any pain. No headache, no other symptoms. According to her EMR, she has history of TIA and CVA, but daughter states that she is not taking any blood thinners currently. She thinks that they may have had her stop taking a baby aspirin. She presents because of the confusion and difficulty with speech. She does have history of dementia. Stroke team was called from triage because of the dysarthria. [facility] Medical History Acute respiratory failure with hypoxia Anemia Asthma Cerebellar infarct Chronic diastolic (congestive) heart failure Chronic kidney disease (CKD) stage G5/A1, glomerular filtration rate (GFR) less than or equal to 15 mL/min/1.73 square meter and albuminuria creatinine ratio less than 30 mg/g Chronic renal failure, stage 5 Cough Dementia Elevated troponin I level End-stage renal disease (ESRD) Essential hypertension Glaucoma History of CVA (cerebrovascular accident) (12/15/19) Hyperlipidemia Iron deficiency anemia Iron deficiency anemia Metabolic acidosis Obesity (BMI 30.0-34.9) Problem with dialysis access Problem with dialysis access RENAL FAILURE STAGE 6 Respiratory failure with hypoxia Shortness of breath Speech apraxia Home Medications timolol maleate 0.5 % eye drops 1 drp EACH EYE BID GLAUCOMA 11/26/15 [History Last Taken 07/17/22] calcium acetate(phosphat bind) 667 mg capsule 1,334 mg PO TIDCM RENAL DIALYSIS 07/14/19 [History Last Taken 07/17/22] levothyroxine 100 mcg tablet 100 mcg PO DAILY 07/31/19 [History Last Taken 07/17/22] isosorbide mononitrate 60 mg tablet,extended release 24 hr 60 mg PO SUMOWEFR HTN 10/26/19 [History Last Taken 07/16/22] latanoprost 0.005 % eye drops 1 drp RIGHT EYE QHS GLAUCOMA 10/26/19 [History Last Taken 07/16/22] handicap placcard See Rx Instructions .Route .COMPLEX #1 ea 03/12/20 [Rx Last Taken Unknown] nifedipine 60 mg tablet,extended release 60 mg PO DAILY BLOOD PRESSURE 05/12/21 [History Last Taken 07/17/22] albuterol sulfate 90 mcg/actuation aerosol inhaler 2 inh inhalation Q4H PRN Shortness Of Breath 07/17/22 [History Last Taken Unknown] aspirin 81 mg tablet,delayed release 81 mg PO DAILY HEART HEALTH 07/17/22 [History Last Taken 07/17/22] atorvastatin 20 mg tablet 20 mg PO DAILY CHOLESTEROL 07/17/22 [History Last Taken 07/16/22 20:00] budesonide-formoterol HFA 160 mcg-4.5 mcg/actuation aerosol inhaler 1 inh inhalation QHS SHORTNESS OF BREATH 07/17/22 [History Last Taken 07/16/22] dextran 70-hypromellose 0.1 %-0.3 % eye drops 1 drp ophthalmic (eye) QHS 07/17/22 [History Last Taken 07/16/22] hydrocortisone probutate 0.1 % topical cream (Pandel) 1 applic topical Q12H PRN RASH/ITCHING 07/17/22 [History Last Taken Unknown] lidocaine-prilocaine 2.5 %-2.5 % topical cream 1 applic topical TUTHSA DIALYSIS 07/17/22 [History Last Taken 07/17/22] nutritional supplements 237 ml PO UD SUPPLEMENT 07/17/22 [History Last Taken 07/17/22] vitamin B complex and vitamin C no.20-folic acid 1 mg capsule 1 cap PO DAILY 07/17/22 [History Last Taken 07/17/22] Allergy/AdvReac Type Severity Reaction Status Date / Time erythromycin base Allergy Rash Verified 08/16/22 13:13 lisinopril Allergy Unknown Verified 08/16/22 13:13 NSAIDS (Non-Steroidal Allergy Other Verified 08/16/22 13:13 Anti-Inflamma Salicylates Allergy Other Verified 08/16/22 13:13 Family History Mother Colon cancer Hypertension Father Hypertension Surgical History History of loop recorder (07/20/19) Hx of cataract extraction Hx of foot surgery Hx of hysterectomy Hx of thyroidectomy s/p left AV fistula creation (02/19/19) Social History Smoking Status: Never smoker alcohol intake: never substance use type: does not use caffeine: Yes what type of physical activity do you participate in: none frequency: does not exercise ROS ROS ED ROS Narrative Constitutional: No fever, no chills. HEENT: No sore throat. No neck pain. No loss of vision. No rhinorrhea. Cardiovascular: No chest pain. No palpitations. No pedal edema. Respiratory: No cough, no shortness of breath. Abdominal: No abdominal pain. No nausea. No vomiting. Genitourinary: No dysuria. No hematuria. Musculoskeletal: No myalgias. No arthralgias. Neurologic: No headaches. No dizziness. No lightheadedness. Positive confusion and difficulty with speech, slurred speech and difficulty talking. Skin: No rash. No change in color. Psychiatric: No depression. No anxiety. EXAM Physical Exam Narrative Exam Narrative: Afebrile. Vital signs noted. HEENT: Normocephalic. Atraumatic. PERRL, EOMI. Neck soft and supple. No point tenderness or step off. Cardiovascular: Regular rate and rhythm. No murmurs, rubs, or gallops a ppreciated. Respiratory: No tachypnea. Lungs clear to auscultation bilaterally. Gastrointestinal: Abdomen soft, nontender, with normoactive bowel sounds. No rebound or guarding. Neurological: Awake. Alert. Nonfocal, nonlateralizing. Initial NIH stroke scale is 4 for mild dysarthria and very mild aphasia. Additionally, she does not know her age or what month it is so she had level of conscious answers that were incorrect, and her daughter states she usually knows these things. Skin: No rash. Normal color. No pallor. Musculoskeletal: No pedal edema. Full range of motion extremities. Const Vital Signs: 12/05/22 12:33 12/05/22 12:32 12/05/22 12:44 Temperature 98.6 F Temperature Source Temporal Pulse Rate 79 79 Respiratory Rate 16 16 Blood Pressure 130/60 H 130/60 H Blood Pressure Mean 83 83 Pulse Ox 96 96 Oxygen Delivery Method Room Air Room Air 12/05/22 12:48 12/05/22 12:45 12/05/22 13:07 Temperature Temperature Source Pulse Rate 76 79 Respiratory Rate 13 16 Blood Pressure 135/61 H 130/60 H Blood Pressure Mean 85 83 Pulse Ox 96 96 Oxygen Delivery Method Room Air Room Air Room Air 12/05/22 13:03 Temperature Temperature Source Pulse Rate 79 Respiratory Rate 16 Blood Pressure 137/65 H Blood Pressure Mean 89 Pulse Ox 96 Oxygen Delivery Method Room Air NIHSS NIHSS Slurred speech: 1a Level of Consciousness: 0 1b LOC Questions (Score 2 if aphasic/stupor): 2 1c LOC Commands (Only score 1st attempt): 0 2 Best Gaze (If aphasic, use reflexive mvmts.): 0 3 Visual: 0 4 Facial Palsy: 0 5 Motor Arm Right (UN = amputation/fusion): 0 5 Motor Arm Left: 0 6 Motor Leg Right: 0 6 Motor Leg Left: 0 7 Limb ataxia (Only + if out of proportion): 0 8 Sensory (Aphasia/stupor=0 or 1, coma=2): 0 9 Best Language: 1 10 Dysarthria (mute, coma=2, intubated=UN): 1 11 Extinction and Inattention (only scored if +): 0 Total Score: 4 MDM MDM MDM Narrative Medical decision making narrative: Stroke team was activated from triage. I reviewed her prior records. She does have history of TIA in 2021, and had a CVA in 2019. Additionally, in review of her records, I had seen her for left arm weakness and facial droop with slurred speech in June. She had received tPA at that time. I interpreted the patient's chest x-ray in 1 view independently and see mild CHF, but no evidence of an acute consolidation or pneumothorax. I reviewed the radiology report which confirms my independent interpretation and also comments on a stable pulmonary nodule. I reviewed the patient's laboratory work, she has a normal white count of 6.5, hemoglobin stable at 10.8, hematocrit 35.1, platelet count slightly low at 121. This is a chronic thrombocytopenia. BMP was reviewed and is grossly unremarkable with the exception of creatinine of 6.91 consistent with her end-stage renal disease, BUN elevated at 47, almost chronically. Sodium is normal at 140 with potassium also normal at 3.8 with chloride 102. Glucose is 85 on her BMP with a normal anion gap of 5. Although her high-sensitivity troponin is elevated at 56, I think this is secondary to her end-stage renal disease and elevated creatinine. I received a call from the radiologist regarding the CT of the brain which shows no evidence of an acute hemorrhage. I also received a call from him regarding the CTA of the head and neck. There is no large vessel occlusion in the cerebral arteries. The left vertebral artery tapers off, but this may be a chronic finding according to radiology. I also discussed the patient with the stroke neurologist who is not recommending tPA as during his examination her symptoms were improving and she did well with object naming as she had with my examination. He was getting an NIH stroke scale of 1 or 2. She does not have a debilitating deficit. At this point in time, patient will be discussed with the hospitalist for admission for MRI and further work-up of her stroke/TIA. I discussed the patient with Dr. John Lutz for observation in the PCU. She is in stable condition. History & Record Review Discussion w/independent historian: Patient and Family Additional record(s) reviewed:: Prior ED visit and Prior labs Lab Data Attestation: I reviewed the patient's lab results. Labs: Laboratory Results - last 24 hr 12/05/22 12/05/22 12:31 12:37 WBC 6.5 RBC 3.80 L Hgb 10.8 L Hct 35.1 L MCV 92.4 MCH 28.4 MCHC 30.8 L RDW Std Deviation 54.4 H RDW Coeff of Lizett 16.0 H Plt Count 121 L MPV 12.9 H Immature Gran % (Auto) 0.300 Neut % (Auto) 47.1 Lymph % (Auto) 37.2 Gulf % (Auto) 10.6 H Eos % (Auto) 3.4 Baso % (Auto) 1.4 H Absolute Neuts (auto) 3.1 Absolute Lymphs (auto) 2.42 Nucleated RBC % 0 PT 13.1 INR 1.0 APTT 31.5 Sodium 140 Potassium 3.8 Chloride 102 Carbon Dioxide 33.0 H Anion Gap 5 BUN 47 H Creatinine 6.91 H Estim Creat Clear Calc 5.05 Est GFR (MDRD) Af Amer 7 L Est GFR (MDRD) Non-Af 6 L BUN/Creatinine Ratio 6.8 L Glucose 85 Calcium 8.7 Troponin I High Sens 56 H POC Glucose 85 Radiography Diagnostic Testing: Clinical Impression(s) from Imaging Studies Brain CT 12/05/22 12:35 IMPRESSION: 1. No acute intracranial abnormality. 2. Stable chronic ischemic changes. 3. Aspect score 10. N.B. : The above Results were Read Back by Andres Castillo MD to Jey Benitez MD, and understanding confirmed on 12/05/2022 12:53:55 (ET). Electronically Signed: Andres Castillo MD at 12:54 EDT , ADDENDUM: 12/05/22 1301 IMPRESSION: 1. No acute intracranial abnormality. 2. Stable chronic ischemic changes. 3. Aspect score 10. N.B. : The above Results were Read Back by Andres Castillo MD to Jey Benitez MD, and understanding confirmed on 12/05/2022 12:53:55 (ET). Electronically Signed: Andres Castillo MD at 12:54 EDT , Head/Neck CTA 12/05/22 12:35 IMPRESSION: No acute arterial occlusion, significant stenosis or intracranial aneurysm. No interval change. N.B. : The above Results were Read Back by Andres Castillo MD to Jey Benitez MD, and understanding confirmed on 12/05/2022 13:19:43 (ET). Electronically Signed: Andres Castillo MD at 13:30 EDT , ADDENDUM: 12/05/22 1337 IMPRESSION: No acute arterial occlusion, significant stenosis or intracranial aneurysm. No interval change. N.B. : The above Results were Read Back by Andres Castillo MD to Jey Benitez MD, and understanding confirmed on 12/05/2022 13:19:43 (ET). Electronically Signed: Andres Castillo MD at 13:30 EDT , Chest X-Ray 12/05/22 13:08 IMPRESSION: Mild CHF. Stable 2.6 cm right lower lobe pulmonary nodule. Electronically Signed: Andres Castillo MD at 13:53 EDT , Stroke Documentation Questions Stroke Team Activated: Yes Reviewed Inclusion/Exclusion criteria: Yes Was Patient considered for Endovascular Intervention?: No-CTA negative, determined not to be an endovascular candidate IV Thrombolytic Administered: No (Rapidly improving symptoms, non-debilitating in discussion with neurology) No contraindications from thrombolytic administration: No Risks, Benefits, Alternatives Discussed: Yes Not given: Patient refusal: No Discharge Plan Dx/Rx/DC Orders Clinical Impression: Slurred speech, Confusion, Dementia, TIA (transient ischemic attack), End-stage renal disease (ESRD) Disposition Disposition: Acute Care Hospital [facility]
--- NOTE | 2022-12-05 12:50 | ED.RN ---
THIS RN CALLED [facility] AT 1237, PT SENT TO CT. PT BACK FROM CT AT 1247. DR. ERAZO FROM [facility] TO COME ON VIA ROBOT AT 1249.
[2022-12-05 12:54] LABS: Prothrombin Time (Protime)PT. 13.1 SECONDS (11.7-14.9)
[2022-12-05 12:55] LABS: Partial Thromboplast Time 31.5 Seconds (24.1-36.2)
--- NOTE | 2022-12-05 12:59 | ED.RN ---
[facility] NEUROLOGIST BEAMED IN AT 1250.
[2022-12-05 13:04] LABS: Anion Gap 5 (5-15); BUN 47 mg/dL (7-18); BUN/Creat Ratio 6.8 RATIO (10-20); Calcium,Total 8.7 mg/dL (8.5-10.1); Chloride 102 mmol/L (98-107); Creatinine, Serum 6.91 mg/dL (0.55-1.02); EST Glomerular Filtration Rate 6 mL/min (>60); Est Glom Filt Rate - Afr Amer 7 mL/min (>60); Estimated Creatinine Clearance 5.05 ml/min; Glucose 85 mg/dL (74-106); Potassium 3.8 mmol/L (3.5-5.1); Sodium Level 140 mmol/L (136-145); Troponin-I HS 56 pg/mL (3.0-54.0)
[2022-12-05 13:05] LABS: Bedside Glucose 85 mg/dL (74-106)
[2022-12-05 13:05] LABS: Absolute Lymphocyte Count 2.42 X10^3/uL (0.83-4.51); Absolute Neutrophil Count 3.1 X10^3/uL (2.0-7.7); Basophil# 0.09 X10^3/uL; Basophil% 1.4 % (0-1); Eosinophil# 0.22 X10^3/uL; Eosinophils% 3.4 % (0-5); Hematocrit 35.1 % (37-47); Hemoglobin 10.8 g/dL (12.0-15.0); Lymphocyte # 2.42 X10^3/ul (0.83-4.51); Lymphocyte % 37.2 % (19-41); Mean Corp Hgb Conc 30.8 g/dL (32-36); Mean Corpuscular Hgb 28.4 pg (27.0-32.0); Mean Corpuscular Volume 92.4 fL (81-99); Mean Platelet Vol. 12.9 fl (6.2-12.0); Monocyte# 0.69 X10^3/uL; Monocyte% 10.6 % (0-10); NRBC Flagged by Analyzer 0 % (0-5); Neutrophil # 3.07 X10^3/uL (2.7-7.7); Neutrophil % 47.1 % (47-70); Platelet Count 121 K/mm3 (150-450); RBC Distribution Width SD 54.4 fl (35.1-43.9); White Blood Count 6.5 K/mm3 (4.4-11.0)
--- NOTE | 2022-12-05 13:08 | RAD_ITS ---
EXAM: XR CHEST, 1 VIEW CLINICAL INDICATION: Neuro deficit, acute, stroke suspected TECHNIQUE: Frontal view of the chest. COMPARISON: XR Chest dated 12/15/2019 FINDINGS: LUNGS AND PLEURAL SPACES: Pulmonary vascular congestion. Persistent 2.6 cm nodule right lung base. No pneumothorax. No effusion. HEART: Stable mild cardiomegaly. MEDIASTINUM: No mediastinal or hilar mass. BONES/JOINTS: No acute abnormality. TUBES, LINES AND DEVICES: Loop recorder in place. RAD/Chest 1 View IMPRESSION: Mild CHF. Stable 2.6 cm right lower lobe pulmonary nodule. Electronically Signed: Andres Castillo MD at 13:53 EDT ,
--- NOTE | 2022-12-05 14:06 | PCM.HP.STD ---
[facility] - [facility] General Date of Service: 12/05/22 Chief Complaint: Slurred speech and gait difficulty [facility] Narrative LOUISE ZAVALA, is a 87 F who presents with slurred speech and gait difficulty. Patient has past medical history is known for ischemic CVA with previous administration of tPA in June 2022 who presented with slurred speech was not checked. Patient's daughter noticed patient was less responsive than her usual self. Patient was also noted to have some difficulty with his speech as well as using her walker. Was brought to the emergency department subsequently. Initial head CT obtained was negative for acute CVA [facility] patient was subsequently admitted to a monitored bed for further evaluation in the hospital [facility] Medical History Acute respiratory failure with hypoxia Anemia Asthma Cerebellar infarct Chronic diastolic (congestive) heart failure Chronic kidney disease (CKD) stage G5/A1, glomerular filtration rate (GFR) less than or equal to 15 mL/min/1.73 square meter and albuminuria creatinine ratio less than 30 mg/g Chronic renal failure, stage 5 Cough Dementia Elevated troponin I level End-stage renal disease (ESRD) Essential hypertension Glaucoma History of CVA (cerebrovascular accident) (12/15/19) Hyperlipidemia Iron deficiency anemia Iron deficiency anemia Metabolic acidosis Obesity (BMI 30.0-34.9) Problem with dialysis access Problem with dialysis access RENAL FAILURE STAGE 6 Respiratory failure with hypoxia Shortness of breath Speech apraxia Home Medications timolol maleate 0.5 % eye drops 1 drp EACH EYE BID GLAUCOMA 11/26/15 [History Last Taken 07/17/22] calcium acetate(phosphat bind) 667 mg capsule 1,334 mg PO TIDCM RENAL DIALYSIS 07/14/19 [History Last Taken 07/17/22] levothyroxine 100 mcg tablet 100 mcg PO DAILY 07/31/19 [History Last Taken 07/17/22] isosorbide mononitrate 60 mg tablet,extended release 24 hr 60 mg PO SUMOWEFR HTN 10/26/19 [History Last Taken 07/16/22] latanoprost 0.005 % eye drops 1 drp RIGHT EYE QHS GLAUCOMA 10/26/19 [History Last Taken 07/16/22] handicap placcard See Rx Instructions .Route .COMPLEX #1 ea 03/12/20 [Rx Last Taken Unknown] nifedipine 60 mg tablet,extended release 60 mg PO DAILY BLOOD PRESSURE 05/12/21 [History Last Taken 07/17/22] albuterol sulfate 90 mcg/actuation aerosol inhaler 2 inh inhalation Q4H PRN Shortness Of Breath 07/17/22 [History Last Taken Unknown] aspirin 81 mg tablet,delayed release 81 mg PO DAILY HEART HEALTH 07/17/22 [History Last Taken 07/17/22] atorvastatin 20 mg tablet 20 mg PO DAILY CHOLESTEROL 07/17/22 [History Last Taken 07/16/22 20:00] budesonide-formoterol HFA 160 mcg-4.5 mcg/actuation aerosol inhaler 1 inh inhalation QHS SHORTNESS OF BREATH 07/17/22 [History Last Taken 07/16/22] dextran 70-hypromellose 0.1 %-0.3 % eye drops 1 drp ophthalmic (eye) QHS 07/17/22 [History Last Taken 07/16/22] hydrocortisone probutate 0.1 % topical cream (Pandel) 1 applic topical Q12H PRN RASH/ITCHING 07/17/22 [History Last Taken Unknown] lidocaine-prilocaine 2.5 %-2.5 % topical cream 1 applic topical TUTHSA DIALYSIS 07/17/22 [History Last Taken 07/17/22] nutritional supplements 237 ml PO UD SUPPLEMENT 07/17/22 [History Last Taken 07/17/22] vitamin B complex and vitamin C no.20-folic acid 1 mg capsule 1 cap PO DAILY 07/17/22 [History Last Taken 07/17/22] Allergy/AdvReac Type Severity Reaction Status Date / Time erythromycin base Allergy Rash Verified 08/16/22 13:13 lisinopril Allergy Unknown Verified 08/16/22 13:13 NSAIDS (Non-Steroidal Allergy Other Verified 08/16/22 13:13 Anti-Inflamma Salicylates Allergy Other Verified 08/16/22 13:13 Family History Mother Colon cancer Hypertension Father Hypertension Surgical History History of loop recorder (07/20/19) Hx of cataract extraction Hx of foot surgery Hx of hysterectomy Hx of thyroidectomy s/p left AV fistula creation (02/19/19) Social History Smoking Status: Never smoker alcohol intake: never substance use type: does not use caffeine: Yes what type of physical activity do you participate in: none frequency: does not exercise ROS ROS Narrative GENERAL: denies fever, chills, night sweats, weight loss, anorexia HEENT: denies headache, sinus congestion, or drainage, dysphagia RESPIRATORY: denies cough, sputum production, shortness of breath, dyspnea on exertion CARDIAC: denies chest pain, palpitations, orthopnea, PND GASTROINTESTINAL: denies abdominal pain, nausea, vomiting, melena, GENITOURINARY: denies dysuria, urgency, frequency, heamaturia EXTREMITY: denies swelling MUSCULOSKELETAL: denies current joint pain or tenderness NEUROLOGIC: Slurred speech HEMATOLOGIC: denies easy bruising and/or hemorrhage INTEGUMENT: denies rashes PSYCHIATRIC: denies suicidal or homicidal ideation Vital Signs Vital Signs Vital Signs: 12/05/22 12:33 12/05/22 12:32 12/05/22 12:44 Temperature 98.6 F Temperature Source Temporal Pulse Rate 79 79 Respiratory Rate 16 16 Blood Pressure 130/60 H 130/60 H Blood Pressure Mean 83 83 Pulse Ox 96 96 Oxygen Delivery Method Room Air Room Air 12/05/22 12:48 12/05/22 12:45 12/05/22 13:07 Temperature Temperature Source Pulse Rate 76 79 Respiratory Rate 13 16 Blood Pressure 135/61 H 130/60 H Blood Pressure Mean 85 83 Pulse Ox 96 96 Oxygen Delivery Method Room Air Room Air Room Air 12/05/22 13:03 12/05/22 13:30 12/05/22 13:58 Temperature 98.6 F Temperature Source Temporal Pulse Rate 79 80 80 Respiratory Rate 16 14 14 Blood Pressure 137/65 H 140/60 H 140/60 H Blood Pressure Mean 89 86 86 Pulse Ox 96 97 96 Oxygen Delivery Method Room Air Room Air Room Air Weight Weight: 68.5 kg Body Mass Index (BMI) 25.9 Physical Exam Narrative GENERAL: cooperative HEENT: Atraumatic; normocephalic EYES; Anicteric, Normal Conjunctiva NECK; supple, normal thyroid, RESPIRATORY: Diminished to auscultation CARDIOVASCULAR: Regular S1 S2, GI: soft, normoactive bowel sounds, : No Renal angle tenderness; EXTREMITIES: No edema, no clubbing, MUSCULOSKELETAL: no muscle wasting NEURO: Awake; no lateralizing signs but dysarthric SKIN: No Rash PSYCH; Flat affect Results Lab / Micro Data 12/05/22 12:37 12/05/22 12:37 Labs: Laboratory Results - last 24 hr 12/05/22 12:31: POC Glucose 85 12/05/22 12:37: WBC 6.5, RBC 3.80 L, Hgb 10.8 L, Hct 35.1 L, MCV 92.4, MCH 28.4, MCHC 30.8 L, RDW Std Deviation 54.4 H, RDW Coeff of Lizett 16.0 H, Plt Count 121 L, MPV 12.9 H, Immature Gran % (Auto) 0.300, Neut % (Auto) 47.1, Lymph % (Auto) 37.2, [place] % (Auto) 10.6 H, Eos % (Auto) 3.4, Baso % (Auto) 1.4 H, Absolute Neuts (auto) 3.1, Absolute Lymphs (auto) 2.42, Nucleated RBC % 0, PT 13.1, INR 1.0, APTT 31.5, Sodium 140, Potassium 3.8, Chloride 102, Carbon Dioxide 33.0 H, Anion Gap 5, BUN 47 H, Creatinine 6.91 H, Estim Creat Clear Calc 5.05, Est GFR (MDRD) Af Amer 7 L, Est GFR (MDRD) Non-Af 6 L, BUN/Creatinine Ratio 6.8 L, Glucose 85, Calcium 8.7, Troponin I High Sens 56 H Radiology Impression Brain CT 12/05/22 12:35 IMPRESSION: 1. No acute intracranial abnormality. 2. Stable chronic ischemic changes. 3. Aspect score 10. N.B. : The above Results were Read Back by Andres Castillo MD to Jey Benitez MD, and understanding confirmed on 12/05/2022 12:53:55 (ET). Electronically Signed: Andres Castillo MD at 12:54 EDT , ADDENDUM: 12/05/22 1301 IMPRESSION: 1. No acute intracranial abnormality. 2. Stable chronic ischemic changes. 3. Aspect score 10. N.B. : The above Results were Read Back by Andres Castillo MD to Jey Benitez MD, and understanding confirmed on 12/05/2022 12:53:55 (ET). Electronically Signed: Andres Castillo MD at 12:54 EDT , Head/Neck CTA 12/05/22 12:35 IMPRESSION: No acute arterial occlusion, significant stenosis or intracranial aneurysm. No interval change. N.B. : The above Results were Read Back by Andres Castillo MD to Jey Benitez MD, and understanding confirmed on 12/05/2022 13:19:43 (ET). Electronically Signed: Andres Castillo MD at 13:30 EDT , ADDENDUM: 12/05/22 1337 IMPRESSION: No acute arterial occlusion, significant stenosis or intracranial aneurysm. No interval change. N.B. : The above Results were Read Back by Andres Castillo MD to Jey Benitez MD, and understanding confirmed on 12/05/2022 13:19:43 (ET). Electronically Signed: Andres Castillo MD at 13:30 EDT , Chest X-Ray 12/05/22 13:08 IMPRESSION: Mild CHF. Stable 2.6 cm right lower lobe pulmonary nodule. Electronically Signed: Andres Castillo MD at 13:53 EDT , Assessment & Plan Assessment/Plan (1) TIA (transient ischemic attack): PLAN: Plan Patient is an 87-year-old lady presenting with dysarthria as well as gait difficulty 1. TIA ? In a patient with previous ischemic CVA for which she did receive tPA. CT angio of the head and neck obtained on admission did not show any large vessel occlusion. Subsequently admitted to a monitored bed for further eval. Patient is already on antiplatelet therapy with aspirin added Plavix. Ordered MRI of the head and neck as well as 2D echo. Also ordered speech physical and occupational therapy 2. End-stage renal disease ? 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 Hypertension - Blood pressure controlled, home medications continued with dose adjustment as needed 4. Dyslipidemia -Patient is on statin therapy, continued at home dose 5. Anemia - Secondary to chronic disorder monitoring H&H and transfuse if patient becomes symptomatic or hemoglobin falls below 7 6. Chronic congestive heart failure with preserved ejection fraction ? Currently compensated 7. Overlap syndrome with COPD and asthma ? Budesonide as well as albuterol as needed did continue 8. Glaucoma ? Did continue patient home meds 9. Hypothyroidism - Patient is on levothyroxine home dose continued 10. DVT prophylaxis ? SC heparin Time spent in the patient's overall evaluation,decision-making process, review of diagnostic data, adjustment of management, discussion with other providers, nursing nursing and ancillary staff involved in patient's care documentation, 75 Minutes Advance planning; did discuss with the patient and family regarding advanced directives as well as CODE STATUS. Did explain the various scenarios involved ( FULL CODE, DNR CCA, DNR CCA with no intubation, and DNR CC and what each meant) patient and family elected to remain full code with CPR and intubation if needed. Order was placed. Time spent on discussion 18 minutes. Charges/Coding Visit Charges Inpatient E&M: 80885 Init Hosp L3 Procedures Hospitalists Procedures: 93275 Advncd Care Plan 30 Min
--- NOTE | 2022-12-05 14:40 | ECHOD_ITS ---
Reason For Study: TIA/CVA Procedure This was a 2D Doppler, Color Flow transthoracic echocardiogram. Exam performed portable in patient room. Left Ventricle Normal size and thickness. The left ventricular ejection fraction is 65 %. Stage 2 diastolic dysfunction. Right Ventricle Normal right ventricle. Atria The left atrium is mildly enlarged. Normal right atrium. Mitral Valve Mild-Moderate (1-2+) eccentric mitral valve insufficiency. Tricuspid Valve Trivial tricuspid valve insufficiency. Unable to estimate RV systolic pressure due to insufficient tricuspid regurgitant envelope. Aortic Valve Normal aortic valve. Pulmonic Valve The pulmonic valve is not well visualized. Great Vessels Normal sized aortic root. Pericardium/Pleural Trivial pericardial effusion. MMode/2D Measurements & Calculations LVIDd: 5.6 cm IVSd: 0.73 cm Ao root diam: 3.2 cm LVIDs: 3.7 cm LVPWd: 0.78 cm RVDd: 3.5 cm FS: 33.2 % LAV(MOD-bp): 60.5 ml LVAd ap4: 27.1 cm2 SV(MOD-sp4): 49.1 ml LAV(MOD-bp) Indexed: 34.8 ml/m2 LVLd ap4: 7.2 cm LAV(MOD-sp2): 43.7 ml EDV(MOD-sp4): 84.9 ml LAV(MOD-sp4): 60.6 ml EDV(sp4-el): 86.4 ml LVAs ap4: 15.8 cm2 LVLs ap4: 6.0 cm ESV(MOD-sp4): 35.7 ml ESV(sp4-el): 35.5 ml EF(MOD-sp4): 57.9 % EF(sp4-el): 58.9 % SV(sp4-el): 50.9 ml LA A4 area: 21.6 cm2 LA dimension(2D): 3.6 cm RA A4 area: 13.1 cm2 TAPSE: 2.6 cm Time Measurements MV dec time: 0.24 sec Doppler Measurements & Calculations MV E max ghanshyam: 87.0 cm/sec Lat Peak E' Ghanshyam: 5.9 cm/sec Med Peak E' Ghanshyam: 5.1 cm/sec MV A max ghanshyam: 135.8 cm/sec E/E' lat: 14.9 E/E' med: 17.1 MV E/A: 0.64 MV V2 max: 145.2 cm/sec Ao V2 max: 192.3 cm/sec MV max P.4 mmHg MV dec slope: 359.5 cm/sec2 Ao max P.8 mmHg MV V2 mean: 82.9 cm/sec Ao V2 mean: 122.9 cm/sec MV mean P.2 mmHg Ao mean P.1 mmHg MV V2 VTI: 36.9 cm Ao V2 VTI: 38.4 cm AV (velocity ratio): 0.70 LV V1 max: 131.8 cm/sec PA V2 max: 111.9 cm/sec LV V1 max P.9 mmHg LV V1 mean P.8 mmHg LV V1 mean: 91.5 cm/sec LV V1 VTI: 26.9 cm ECHO/Echo Complete Interpretation Summary The left ventricular ejection fraction is 65 %. Stage 2 diastolic dysfunction. Mild-Moderate (1-2+) eccentric mitral valve insufficiency. Ordering Physician: John Lutz Referring Physician: Wayne Leahy Chi Performed By: Fiorella Merchant, SUZANNE, RVT
[2022-12-05] MEDS: Calcium Acetate 667 MG Capsule 1334 MG PO (17:17)
[2022-12-05] MEDS: Albuterol 2.5 MG/3 ML VIAL.NEB. INHALATION (19:41)
[2022-12-05] MEDS: Budesonide Respules 0.5 MG/2 ML AMPUL.NEB. INHALATION (19:41)
[2022-12-05] MEDS: Latanoprost 0.005% 1 Bottle 1 DRP RIGHT EYE (22:14)
[2022-12-05] MEDS: Timolol 0.5% 5ML OPTH.BTL 1 DRP EACH EYE (22:14)
[2022-12-05] MEDS: Glycerin/Hypromellose/PEG400 15 ml Bottle 1 DRP OPHTHALMIC (22:14)
[2022-12-05] MEDS: Atorvastatin Calcium 20 MG Tablet PO (22:15)
[2022-12-05] MEDS: Heparin Injection (Vial) 5,000 UNIT/ML VIAL 5000 UNIT SC (22:15)
[2022-12-06 04:15] VITALS: BP 154/74; PULSE 90; RESP 16; TEMP 36.9; O2SAT 95
[2022-12-06] MEDS: Levothyroxine 100 MCG Tablet PO (04:46)
[2022-12-06 04:59] VITALS: BMI 25.3
[2022-12-06 06:27] LABS: Absolute Lymphocyte Count 2.17 X10^3/uL (0.83-4.51); Absolute Neutrophil Count 2.3 X10^3/uL (2.0-7.7); Basophil# 0.09 X10^3/uL; Basophil% 1.7 % (0-1); Eosinophil# 0.22 X10^3/uL; Eosinophils% 4.2 % (0-5); Hematocrit 31.7 % (37-47); Hemoglobin 9.9 g/dL (12.0-15.0); Lymphocyte # 2.17 X10^3/ul (0.83-4.51); Lymphocyte % 41.1 % (19-41); Mean Corp Hgb Conc 31.2 g/dL (32-36); Mean Corpuscular Hgb 28.4 pg (27.0-32.0); Mean Corpuscular Volume 90.8 fL (81-99); Mean Platelet Vol. 12.1 fl (6.2-12.0); Monocyte# 0.49 X10^3/uL; Monocyte% 9.3 % (0-10); NRBC Flagged by Analyzer 0 % (0-5); Neutrophil % 43.5 % (47-70); Platelet Count 112 K/mm3 (150-450); RBC Distribution Width CV 15.9 % (11.6-14.6); RBC Distribution Width SD 53.1 fl (35.1-43.9); Red Blood Count 3.49 M/mm3 (4.2-5.4); White Blood Count 5.3 K/mm3 (4.4-11.0)
[2022-12-06] MEDS: Budesonide Respules 0.5 MG/2 ML AMPUL.NEB. INHALATION (06:57)
[2022-12-06] MEDS: Albuterol 2.5 MG/3 ML VIAL.NEB. INHALATION (06:57)
[2022-12-06 06:58] VITALS: PULSE 82; RESP 18; O2SAT 96
[2022-12-06 07:51] LABS: Anion Gap 7 (5-15); BUN 53 mg/dL (7-18); BUN/Creat Ratio 6.5 RATIO (10-20); Calcium,Total 8.6 mg/dL (8.5-10.1); Chloride 102 mmol/L (98-107); Cholesterol 97 mg/dL (200); Creatinine, Serum 8.13 mg/dL (0.55-1.02); EST Glomerular Filtration Rate 5 mL/min (>60); Est Glom Filt Rate - Afr Amer 6 mL/min (>60); Estimated Creatinine Clearance 4.29 ml/min; Glucose 81 mg/dL (74-106); High Density Lipoprotein 55 mg/dL; Magnesium 2.5 mg/dL (1.6-2.6); Phosphorus 3.6 mg/dL (2.5-4.9); Potassium 4.1 mmol/L (3.5-5.1); Sodium Level 139 mmol/L (136-145); Triglycerides 81 mg/dL; Very Low Density Lipoprotein 16 mg/dL (5-40)
[2022-12-06 08:22] VITALS: BP 152/64; PULSE 81; RESP 16; TEMP 36.9; O2SAT 93
[2022-12-06] MEDS: Timolol 0.5% 5ML OPTH.BTL 1 DRP EACH EYE (08:35)
[2022-12-06] MEDS: Isosorbide Mononitrate 60 MG Tablet PO (08:36)
[2022-12-06] MEDS: Clopidogrel Bisulfate 75 MG Tablet PO (08:36)
[2022-12-06] MEDS: Aspirin E.C. 81 MG Tablet PO (08:36)
[2022-12-06] MEDS: Calcium Acetate 667 MG Capsule 1334 MG PO ×3 (08:36→16:40)
[2022-12-06] MEDS: Famotidine 20 MG Tablet PO (08:36)
[2022-12-06] MEDS: Heparin Injection (Vial) 5,000 UNIT/ML VIAL 5000 UNIT SC (08:36)
[2022-12-06] MEDS: NIFEdipine 60 MG Tablet PO (08:36)
--- NOTE | 2022-12-06 08:56 | CASEMGMT ---
SHERYL met with patient and her daughter. Introduced self and role at [facility]. SW confirmed patient's plan is to return to [place] at discharge. Plan:d/c back to [place] under intermediate level of care. Deanne LEMUS
--- NOTE | 2022-12-06 08:58 | CASEMGMT ---
Discharge Planning Patient resides at [place] and wishes to return. Updates sent via [facility]. Nina Trejo, Discharge Planning Asst.
--- NOTE | 2022-12-06 10:45 | PCM.CONS.R ---
Assessment & Plan Assessment/Plan (1) ESRD (end stage renal disease) on dialysis: PLAN: dialysis next on Tuesday as inpt or outpt if discharged (2) Confusion: PLAN: at baseline, dementia (3) Slurred speech: (4) History of CVA (cerebrovascular accident): (5) Hypertension: QUALIFIERS: Hypertension type: primary hypertension Qualified Code(s): I10 - Essential (primary) hypertension PLAN: stable (6) Anemia: QUALIFIERS: Anemia type: iron deficiency PLAN: chronic due to ESRD HPI Consult Data Date of Consult: 12/06/22 HPI Narrative Reason for Consultation: ESRD HD TTS HPI Narrative: LOUISE ZAVALA, is a 87 F resident of [facility] with ESRD on HD TTS. last dialysis Tuesday presents to [facility] ED on Tuesday for episode of confusion, slurred speech while at [employer] noticed by her daughter. Past medical history is known for ischemic CVA with previous administration of tPA in June 2022. CT obtained was negative for acute CVA, Currently echo in progress. Pt daughter [place] at bedside. [facility] Medical History Acute respiratory failure with hypoxia Anemia Asthma Cerebellar infarct Chronic diastolic (congestive) heart failure Chronic kidney disease (CKD) stage G5/A1, glomerular filtration rate (GFR) less than or equal to 15 mL/min/1.73 square meter and albuminuria creatinine ratio less than 30 mg/g Chronic renal failure, stage 5 Cough Dementia Elevated troponin I level End-stage renal disease (ESRD) Essential hypertension Glaucoma History of CVA (cerebrovascular accident) (12/15/19) Hyperlipidemia Iron deficiency anemia Iron deficiency anemia Metabolic acidosis Obesity (BMI 30.0-34.9) Problem with dialysis access Problem with dialysis access RENAL FAILURE STAGE 6 Respiratory failure with hypoxia Shortness of breath Speech apraxia Home Medications timolol maleate 0.5 % eye drops 1 drp EACH EYE BID GLAUCOMA 11/26/15 [History Last Taken 07/17/22] calcium acetate(phosphat bind) 667 mg capsule 1,334 mg PO TIDCM RENAL DIALYSIS 07/14/19 [History Last Taken 07/17/22] levothyroxine 100 mcg tablet 100 mcg PO DAILY thyroid 07/31/19 [History Last Taken 07/17/22] isosorbide mononitrate 60 mg tablet,extended release 24 hr 60 mg PO SUMOWEFR HTN 10/26/19 [History Last Taken 07/16/22] latanoprost 0.005 % eye drops 1 drp RIGHT EYE QHS GLAUCOMA 10/26/19 [History Last Taken 07/16/22] handicap placcard See Rx Instructions .Route .COMPLEX #1 ea 03/12/20 [Rx Last Taken Unknown] nifedipine 60 mg tablet,extended release 60 mg PO DAILY BLOOD PRESSURE 05/12/21 [History Last Taken 07/17/22] albuterol sulfate 90 mcg/actuation aerosol inhaler 2 inh inhalation Q4H PRN Shortness Of Breath 07/17/22 [History Last Taken Unknown] aspirin 81 mg tablet,delayed release 81 mg PO DAILY HEART HEALTH 07/17/22 [History Last Taken 07/17/22] atorvastatin 20 mg tablet 20 mg PO DAILY CHOLESTEROL 07/17/22 [History Last Taken 07/16/22 20:00] budesonide-formoterol HFA 160 mcg-4.5 mcg/actuation aerosol inhaler 1 inh inhalation QHS SHORTNESS OF BREATH 07/17/22 [History Last Taken 07/16/22] dextran 70-hypromellose 0.1 %-0.3 % eye drops 1 drp ophthalmic (eye) QHS 07/17/22 [History Last Taken 07/16/22] hydrocortisone probutate 0.1 % topical cream (Pandel) 1 applic topical Q12H PRN RASH/ITCHING 07/17/22 [History Last Taken Unknown] lidocaine-prilocaine 2.5 %-2.5 % topical cream 1 applic topical TUTHSA DIALYSIS 07/17/22 [History Last Taken 07/17/22] nutritional supplements 237 ml PO UD SUPPLEMENT 07/17/22 [History Last Taken 07/17/22] vitamin B complex and vitamin C no.20-folic acid 1 mg capsule 1 cap PO DAILY 07/17/22 [History Last Taken 07/17/22] albuterol sulfate 2.5 mg/3 mL (0.083 %) solution for nebulization 2.5 mg continuous nebulization Q4H PRN SOB/Wheezing 12/05/22 [History Last Taken Unknown] Allergy/AdvReac Type Severity Reaction Status Date / Time erythromycin base Allergy Rash Verified 08/16/22 13:13 lisinopril Allergy Unknown Verified 08/16/22 13:13 NSAIDS (Non-Steroidal Allergy Other Verified 08/16/22 13:13 Anti-Inflamma Salicylates Allergy Other Verified 08/16/22 13:13 Family History Mother Colon cancer Hypertension Father Hypertension Surgical History History of loop recorder (07/20/19) Hx of cataract extraction Hx of foot surgery Hx of hysterectomy Hx of thyroidectomy s/p left AV fistula creation (02/19/19) Social History Smoking Status: Never smoker alcohol intake: never substance use type: does not use caffeine: Yes what type of physical activity do you participate in: none frequency: does not exercise ROS ROS Narrative [facility] resident Review of Systems ROS Unobtainable: due to mental condition and other Details: dementia, poor historian. History obtained by daughter at bedside Constitutional Constitutional: Denies chills or fever(s) Respiratory/Chest Respiratory/Chest: Denies shortness of breath at rest Gastrointestinal Gastrointestinal: Denies abdominal pain or anorexia Genitourinary Genitourinary: Reports other Details: ESRD Neurologic Neurologic: Reports other Details: dementia Psychiatric Psychiatric: Reports confusion Hematologic/Lymphatic Hematologic/Lymphatic: Reports anemia Physical Exam Const Constitutional Narrative: poor historian, dementia, confusion at baseline Resp clear to auscultation bilaterally Cardio regular rate GI non-tender and non-distended Palpation: soft Extremity no clubbing, cyanosis or edema General Extremity: AV fistula Neuro Sensorium / Orientation: awake Psych cooperative Lab / Micro Data 12/06/22 05:24 12/06/22 05:24 Labs: Laboratory Results - last 24 hr 12/05/22 12:31: POC Glucose 85 12/05/22 12:37: WBC 6.5, RBC 3.80 L, Hgb 10.8 L, Hct 35.1 L, MCV 92.4, MCH 28.4, MCHC 30.8 L, RDW Std Deviation 54.4 H, RDW Coeff of Lizett 16.0 H, Plt Count 121 L, MPV 12.9 H, Immature Gran % (Auto) 0.300, Neut % (Auto) 47.1, Lymph % (Auto) 37.2, [place] % (Auto) 10.6 H, Eos % (Auto) 3.4, Baso % (Auto) 1.4 H, Absolute Neuts (auto) 3.1, Absolute Lymphs (auto) 2.42, Nucleated RBC % 0, PT 13.1, INR 1.0, APTT 31.5, Sodium 140, Potassium 3.8, Chloride 102, Carbon Dioxide 33.0 H, Anion Gap 5, BUN 47 H, Creatinine 6.91 H, Estim Creat Clear Calc 5.05, Est GFR (MDRD) Af Amer 7 L, Est GFR (MDRD) Non-Af 6 L, BUN/Creatinine Ratio 6.8 L, Glucose 85, Calcium 8.7, Troponin I High Sens 56 H 12/06/22 05:24: WBC 5.3, RBC 3.49 L, Hgb 9.9 L, Hct 31.7 L, MCV 90.8, MCH 28.4, MCHC 31.2 L, RDW Std Deviation 53.1 H, RDW Coeff of Lizett 15.9 H, Plt Count 112 L, MPV 12.1 H, Immature Gran % (Auto) 0.200, Neut % (Auto) 43.5 L, Lymph % (Auto) 41.1 H, [place] % (Auto) 9.3, Eos % (Auto) 4.2, Baso % (Auto) 1.7 H, Absolute Neuts (auto) 2.3, Absolute Lymphs (auto) 2.17, Nucleated RBC % 0, Sodium 139, Potassium 4.1, Chloride 102, Carbon Dioxide 30.0, Anion Gap 7, BUN 53 H, Creatinine 8.13 H*, Estim Creat Clear Calc 4.29, Est GFR (MDRD) Af Amer 6 L, Est GFR (MDRD) Non-Af 5 L, BUN/Creatinine Ratio 6.5 L, Glucose 81, Calcium 8.6, Phosphorus 3.6, Magnesium 2.5, Triglycerides 81, Cholesterol 97, LDL Cholesterol 26, VLDL Cholesterol 16, HDL Cholesterol [address] 12/05/22 12:35 IMPRESSION: 1. No acute intracranial abnormality. 2. Stable chronic ischemic changes. 3. Aspect score 10. N.B. : The above Results were Read Back by Andres Castillo MD to Jey Benitez MD, and understanding confirmed on 12/05/2022 12:53:55 (ET). Electronically Signed: Andres Castillo MD at 12:54 EDT , ADDENDUM: 12/05/22 1301 IMPRESSION: 1. No acute intracranial abnormality. 2. Stable chronic ischemic changes. 3. Aspect score 10. N.B. : The above Results were Read Back by Andres Castillo MD to Jey Benitez MD, and understanding confirmed on 12/05/2022 12:53:55 (ET). Electronically Signed: Andres Castillo MD at 12:54 EDT , Head/Neck CTA 12/05/22 12:35 IMPRESSION: No acute arterial occlusion, significant stenosis or intracranial aneurysm. No interval change. N.B. : The above Results were Read Back by Andres Castillo MD to Jey Benitez MD, and understanding confirmed on 12/05/2022 13:19:43 (ET). Electronically Signed: Andres Castillo MD at 13:30 EDT , ADDENDUM: 12/05/22 1337 IMPRESSION: No acute arterial occlusion, significant stenosis or intracranial aneurysm. No interval change. N.B. : The above Results were Read Back by Andres Castillo MD to Jey Benitez MD, and understanding confirmed on 12/05/2022 13:19:43 (ET). Electronically Signed: Andres Castillo MD at 13:30 EDT , Chest X-Ray 12/05/22 13:08 IMPRESSION: Mild CHF. Stable 2.6 cm right lower lobe pulmonary nodule. Electronically Signed: Andres Castillo MD at 13:53 EDT ,
[2022-12-06 12:15] VITALS: BP 137/61; PULSE 75; RESP 16; TEMP 37.1; O2SAT 94
--- NOTE | 2022-12-06 14:03 | MRI_ITS ---
STUDY: MR Brain W/O Contrast 12/06/2022 4:49 PM REASON FOR EXAM: Female, 87 years old. CVA COMPARISON: CT December 05, 2022 TECHNIQUE: Standardized multiplanar fat and water weighted pulse sequences were obtained. MR Brain W/O Contrast FINDINGS: There is mild cerebral atrophy with widening of the extra-axial spaces and ventricular dilatation. There are a limited number of small white matter hyperintensities, distributed throughout the deep white matter tracts of the cerebral hemispheres, consistent with mild chronic white matter ischemic changes. There is mild prominence of the vermian folia, consistent with atrophy of the vermis. The cerebellar hemispheres are normal. Old left temporal lobe infarct. Old right occipital lobe infarct. Old right frontal lobe infarct. Normal bilateral basal ganglia. Normal thalami. There is no extra-axial fluid accumulation. Normal flow voids within the major intracranial circulation suggesting patency by spin echo criteria. Normal sella turcica, pituitary gland, infundibular stalk, optic chiasm and hypothalamus. Normal tectal plate and pineal gland. Normal midbrain, bree and medulla. Normal basal cisterns. Normal bilateral temporal bones. Normal bilateral internal auditory canals. No demonstrated orbital abnormality, within the constraints of a routine brain study. Normal visualized paranasal sinuses. Normal calvarium and skull base. Normal visualized soft tissue structures. Normal visualized upper cervical spine. Aspect score 10 MRI/Brain without Contrast IMPRESSION: (NOT LISTED IN ORDER OF SIGNIFICANCE) There are no acute intracranial findings. Electronically Signed: Manav Travis MD at 16:51 EDT ,
[2022-12-06 15:00] VITALS: BMI 25.3
--- NOTE | 2022-12-06 15:59 | CASEMGMT ---
JUSTIN FONSECA NOTE: Pt is out of room at this time for MRI. Per RNFrancesca, she has been groggy and was having confusion earlier. Pt's daughter, [place], is in room at this time and states she is POA. Intro role of CM to [place] and [employer] form explained re: Observation status for treatment of TIA.? Explained hospitalization will be paid per?her mother's insurance policy for Outpatient billing?and condition will continue to be evaluated for Inpt necessity. Also let Boston know that [facility] sends paper in the billing packet with their phone number if questions arise. Discussed Pharmacy section of [employer] form and self administered medication guideline.? Boston verbalizes understanding and does not have further questions. ?Form signed, copy made and placed in chart, and original given to [place]. Sergio WHITAKER RN CM
[2022-12-06 16:15] VITALS: BP 141/65; PULSE 79; RESP 16; TEMP 36.8; O2SAT 95
--- NOTE | 2022-12-06 16:58 | PCM.TXEXTCAR ---
Diet Diet Order/Speech Therapy: 12/05/22 14:41 Diet: Renal - General Food consistency:: Regular Liquid Consistency:: Regular/Thin Routine Orders/Code Status Suppository Frequency: Daily PRN O2 Liters per Minute: 2 O2 Frequency: PRN Keep PO Greater than or Equal to (%): 88 Routine Lab Work: CBC (1 week) Code Status: Full Code Therapies Weight Bearing: Full weight bearing Physical Therapy: Eval and Treat Occupational Therapy: Eval and Treat Problem/Diagnosis (1) ESRD (end stage renal disease) on dialysis: Status: Acute Code(s): N18.6 - End stage renal disease; Z99.2 - Dependence on renal dialysis (2) Confusion: Status: Acute Code(s): R41.0 - Disorientation, unspecified (3) Slurred speech: Status: Acute Code(s): R47.81 - Slurred speech (4) History of CVA (cerebrovascular accident): Status: Chronic Code(s): Z86.73 - Personal history of transient ischemic attack (TIA), and cerebral infarction without residual deficits Comment: R MCA Stroke 07/20/2019 received TPA; Transferred to [facility] 12/15/2019 (5) Hypertension: Status: Chronic Code(s): I10 - Essential (primary) hypertension (6) Anemia: Status: Acute Code(s): D64.9 - Anemia, unspecified Allergies/Procedures Done in Hospital Allergies erythromycin base Allergy (Verified 08/16/22 13:13) Rash lisinopril Allergy (Verified 08/16/22 13:13) Unknown NSAIDS (Non-Steroidal Anti-Inflamma Allergy (Verified 08/16/22 13:13) Other Salicylates Allergy (Verified 08/16/22 13:13) Other Procedures: 2-D Echocardiogram and - (CT brain/CTA head and neck/MRI brain/chest x-ray) Type of Care/Length of Stay Estimated LOS: More Than 30 Days Type of Care Needed: Intermediate Rehab Potential: Fair Prognosis: Fair Additional Orders/Day of Discharge Day of Discharge: 12/06/22 Dietary and Speech Recommendations Dietitian Recommendations/Changes: Continue general renal diet; offer ONS as needed if PO fails at meals. Speech Linguistic Eval Summary: Per most recent RN Shift Clinical Findings, pt's respiratory standards are met, and pt on room air. Per chart review, pt had speech evaluation completed last June, during previous admission. Patient's daughter reported pt sees speech therapy a couple times a week, but is unsure of the exact frequency. Additionally, pt's daughter reported pt's word finding and memory have worsened since previous admission, 06/2022, and her main goal for her mother would be to work on slurred speech and recall. Pt reports no concerns for her speech or swallowing. Informal Cognitive-Linguistic Assessment- Orientation: Patient oriented to her name, , city, and age (with 3 self corrections independently). Pt not oriented to place or date despite max verbal cues. Auditory Comprehension: Patient tasked with simple yes/no questions with 4/5 acc, and moderate yes/no with 2/5 acc despite verbal cues. Patient observed to have difficult time attending to task, and would answer the question in sentence form, instead of giving yes/no answer. Patient tasked with 1-step commands with 10/10 acc, and 2-step commands with 0/5 acc. Verbal Expression- Repetition: Patient tasked to repeat single words with 9/10 acc, and phrases with 8/10 acc. Confrontation Naming: Patient tasked to name items around the room with 7/10 acc. Divergent Naming: Patient tasked to name as many animals as she could think of in 60 seconds, naming 13 total items with a verbal cue prior to naming items, verbal cues X2 during completion, repetition X1, inappropriate responses X4 (i.e., potato, pepperoni, Ted, memaw). Re-tasked pt with divergent naming task, tasking to name items beginning with the letter m, naming 14 total items with verbal cues throughout, repetitions X1, and inappropriate responses X9 (e.g., goose, geese, tomato, meese, pickle). Speech Sample: 60 second speech sample taken with 3.13 words per utterance. Memory: Pt tasked with immediate recall of 3 words with 2/3 acc. Tasked pt with 2 minute delayed recall with 0/3 acc, increasing to 2/3 acc with moderate verbal cues. Informal speech production assessment- /p^/ - 1.4 syllables per second (WNL = at least 6.4 syllables per second), /t^/ - 3.7 syllables per second (WNL = at least 6.1 syllables per second), /k^/ - 3.6 syllables per second (WNL = at least 5.7 syllables per second). /p^t^k^/ - 3.0 syllables per second with some sound substitutions (puhsuhsuh/ puhtuhkuh). Patient observed to have some difficulty completing task, and would occasionally say words (e.g., potato) during task instead of speech sounds. Patient presents with moderate cognitive-linguistic impairment characterized by deficits in orientation, auditory comprehension, attention, and memory, and mild dysarthria characterized by fast rate of speech and imprecise articulation. Will recommend skilled speech therapy to address deficits listed above, and for pt to continue speech therapy at the next level of care. Pt and pt's daughter agreeable. Discharge Plan Admission Admit Date/Time: 12/05/22 13:56 Attending Provider: Melody Patrick Primary Care Provider: Wayne Leahy Chi Consulting Providers: Kianna Patrick; John Lutz Discharge Orders/Prescriptions Prescriptions: No Action levothyroxine 100 mcg tablet 100 mcg PO DAILY handicap placcard See Rx Instructions .ROUTE .COMPLEX Qty: 1 0RF Rx Instructions: Duration: lifetime Diagnosis: CVA, debility nifedipine 60 mg tablet extended release 60 mg PO DAILY timolol maleate 1 DROP drops 1 drp EACH EYE BID calcium acetate(phosphat bind) 667 MG capsule 1,334 mg PO TIDCM latanoprost 1 DROP bottle 1 drp RIGHT EYE QHS isosorbide mononitrate 60 MG tablet 60 mg PO SUMOWEFR atorvastatin 20 mg Tablet 20 mg PO DAILY nutritional supplements Liquid 237 ml PO UD Pandel 0.1 % Cream 1 applic TOPICAL Q12H PRN (Reason: RASH/ITCHING) lidocaine-prilocaine 2.5-2.5 % Cream 1 applic topical TUTHSA B complex with C 20-folic acid 1 mg Capsule 1 cap PO DAILY albuterol sulfate 90 mcg/actuation HFA aerosol inhaler 2 inh INHALATION Q4H PRN (Reason: Shortness Of Breath) budesonide-formoterol 160-4.5 mcg/actuation Hfa Aerosol Inhaler 1 inh INHALATION QHS dextran 70-hypromellose 0.1-0.3 % Drops 1 drp ophthalmic (eye) QHS aspirin 81 MG tablet,delayed release (DR/EC) 81 mg PO DAILY albuterol sulfate 2.5 mg /3 mL (0.083 %) solution for nebulization 2.5 mg continuous nebulization Q4H PRN (Reason: SOB/Wheezing) Referrals / Follow Up: Wayne Leahy Chi, MD [Primary Care Provider] - (5) Hypertension Qualifiers: Hypertension type: primary hypertension Qualified Code(s): I10 - Essential (primary) hypertension (6) Anemia Qualifiers: Anemia type: iron deficiency
--- NOTE | 2022-12-06 16:59 | PCM.DC.SUM ---
Providers Date of Admission: 12/05/22 Date of Discharge: 12/06/22 Primary Care Physician: Dr. Wayne Leahy MD Consultations 12/05/22 14:40 Consult: Nephrology Routine Consulting Provider: Kianna Patrick Reason for Consult: ESRD EMERGENT Consult: No MD Notified: Yes Date Notified: 12/05/22 Time Notified: 14:02 Method of Notification: Text Reason For Visit: TIA Diagnosis Discharge Diagnosis (1) ESRD (end stage renal disease) on dialysis: Status: Acute Code(s): N18.6 - End stage renal disease; Z99.2 - Dependence on renal dialysis (2) Confusion: Status: Acute Code(s): R41.0 - Disorientation, unspecified (3) Slurred speech: Status: Acute Code(s): R47.81 - Slurred speech (4) History of CVA (cerebrovascular accident): Status: Chronic Code(s): Z86.73 - Personal history of transient ischemic attack (TIA), and cerebral infarction without residual deficits (5) Hypertension: Status: Chronic Code(s): I10 - Essential (primary) hypertension Qualifiers: Hypertension type: primary hypertension Qualified Code(s): I10 - Essential (primary) hypertension (6) Anemia: Status: Acute Code(s): D64.9 - Anemia, unspecified Qualifiers: Anemia type: iron deficiency Medications at Discharge Home Medications timolol maleate 0.5 % eye drops 1 drp EACH EYE BID GLAUCOMA 11/26/15 calcium acetate(phosphat bind) 667 mg capsule 1,334 mg PO TIDCM RENAL DIALYSIS 07/14/19 levothyroxine 100 mcg tablet 100 mcg PO DAILY thyroid 07/31/19 isosorbide mononitrate 60 mg tablet,extended release 24 hr 60 mg PO SUMOWEFR HTN 10/26/19 latanoprost 0.005 % eye drops 1 drp RIGHT EYE QHS GLAUCOMA 10/26/19 handicap placcard See Rx Instructions .Route .COMPLEX #1 ea 03/12/20 nifedipine 60 mg tablet,extended release 60 mg PO DAILY BLOOD PRESSURE 05/12/21 albuterol sulfate 90 mcg/actuation aerosol inhaler 2 inh inhalation Q4H PRN Shortness Of Breath 07/17/22 aspirin 81 mg tablet,delayed release 81 mg PO DAILY HEART HEALTH 07/17/22 atorvastatin 20 mg tablet 20 mg PO DAILY CHOLESTEROL 07/17/22 budesonide-formoterol HFA 160 mcg-4.5 mcg/actuation aerosol inhaler 1 inh inhalation QHS SHORTNESS OF BREATH 07/17/22 dextran 70-hypromellose 0.1 %-0.3 % eye drops 1 drp ophthalmic (eye) QHS 07/17/22 hydrocortisone probutate 0.1 % topical cream (Pandel) 1 applic topical Q12H PRN RASH/ITCHING 07/17/22 lidocaine-prilocaine 2.5 %-2.5 % topical cream 1 applic topical TUTHSA DIALYSIS 07/17/22 nutritional supplements 237 ml PO UD SUPPLEMENT 07/17/22 vitamin B complex and vitamin C no.20-folic acid 1 mg capsule 1 cap PO DAILY 07/17/22 albuterol sulfate 2.5 mg/3 mL (0.083 %) solution for nebulization 2.5 mg continuous nebulization Q4H PRN SOB/Wheezing 12/05/22 clopidogrel 75 mg tablet 75 mg PO DAILY #30 tabs 12/06/22 Hospital Course Operations None Procedures 2-D Echocardiogram, EKG and - (CT brain/CTA head neck/chest x-ray/MRI brain) Summary of Care Provided Minutes Spent on Discharge: 30 Hospital Course: Mrs. Salvador is an 87-year-old -[place] female with history of stroke and TIAs who presented to the emergency department at [facility] on 12/05/2022 with slurred speech and difficulty using her walker. Her last presentation for strokelike symptoms was in June 2022 and she did have some speech type difficulties at that time and her NIH was 5. She was given tPA at that time and admitted to the ICU following this. An MRI was performed and showed no acute infarct at that time. Neurology was consulted and recommended continuing her Plavix. The patient has a loop recorder and at baseline without any notification of any arrhythmias. She is dialysis dependent at baseline. Evidently on the day of this admission she was at holiness with her daughter and became unresponsive. There evidently was an episode of increased confusion and slurring her speech. Stroke team was called from triage due to her speech difficulties. CT done in the emergency department was unremarkable for any acute findings and only showed chronic involutional changes. CTA of the head and neck showed no large vessel occlusions and no significant stenosis. Stroke neurologist from [facility] was contacted and did not recommend tPA as during his exam her symptoms were overall improving and her overall NIH was a scale of 1-2. She was admitted the hospital for further work-up and Plavix was added to her home baseline medication regimen. Symptoms have completely resolved and her NIH was 0. Per discussion with her daughter her mentation was back to baseline and her speech was not baseline as well. An MRI was performed and showed old left temporal infarct, old right occipital infarct and an old right frontal lobe infarct with no acute new findings. Previous echoes have noted atheromatous plaque in the descending aorta she does have previous echocardiogram which demonstrated previous negative bubble study from echocardiogram on 01/12/2019. Given the above resolution and her ongoing antiplatelet therapy with aspirin we did feel it was prudent since she was continue to have intermittent symptoms on aspirin alone to add Plavix 75 mg daily. I have asked her daughter to get an appointment with neurology after discharge for any further assistance with regards to her recurrent TIAs and strokes. As noted before she does have a loop recorder that was placed in 2019 and there is not been any notification of abnormal arrhythmias noted. Patient was able to be discharged back to her skilled facility on 12/06/2022 with only the addition of Plavix. Vascular follow-up with her primary care physician within the next 1 to 2 weeks and neurology as able to obtain an appointment. 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 Glaucoma Chronic HFpEF COPD Asthma Physical Exam Const alert, no apparent distress, average body habitus and well nourished Constitutional Narrative: Elderly, -[place], female, lying in bed with her eyes closed but does awaken to verbal and tactile stimuli, daughter at bedside, patient oriented x2, appears comfortable and nontoxic General Appearance: cooperative, comfortable, well kempt and well developed Orientation / Consciousness: awake, oriented to person and oriented to place Exam Limitations: other limitations HEENT normocephalic, head/scalp atraumatic and moist oral mucous membranes HEENT Narrative: Mild hearing loss, Mallampati 2, no thrush Resp normal respiratory effort, no retractions, no use of accessory muscles and clear to auscultation bilaterally Auscultation: Negative for rales, rhonchi or wheezes Cardio regular rate, regular rhythm, S1 normal heart sound, S2 normal heart sound, no rub, no gallops and no clicks; Negative for no murmurs Cardio Narrative: Patient with soft murmur due to presence of dialysis fistula GI normal to inspection, nondistended, normoactive bowel sounds, soft to palpation and non-tender Extremity no clubbing, cyanosis or edema Extremity Narrative: Pedal pulses are 2+, decreased lean muscle mass Skin Skin Narrative: Left upper extremity fistula in place with positive bruit and thrill Neuro CN's II-XII intact bilaterally, moves all extremities and no focal motor deficits Speech: speech normal Psych affect normal Psych Narrative: Appears comfortable, appropriately interactive, pleasantly confused Weight / BMI Weight Weight: 67 kg Body Mass Index (BMI) 25.3 ABG / Lab / Microbiology Data 12/06/22 05:24 12/06/22 05:24 Laboratory: Laboratory Results - last 24 hr 12/06/22 05:24: WBC 5.3, RBC 3.49 L, Hgb 9.9 L, Hct 31.7 L, MCV 90.8, MCH 28.4, MCHC 31.2 L, RDW Std Deviation 53.1 H, RDW Coeff of [place] 15.9 H, Plt Count 112 L, MPV 12.1 H, Immature Gran % (Auto) 0.200, Neut % (Auto) 43.5 L, Lymph % (Auto) 41.1 H, [place] % (Auto) 9.3, Eos % (Auto) 4.2, Baso % (Auto) 1.7 H, Absolute Neuts (auto) 2.3, Absolute Lymphs (auto) 2.17, Nucleated RBC % 0, Sodium 139, Potassium 4.1, Chloride 102, Carbon Dioxide 30.0, Anion Gap 7, BUN 53 H, Creatinine 8.13 H*, Estim Creat Clear Calc 4.29, Est GFR (MDRD) Af Amer 6 L, Est GFR (MDRD) Non-Af 5 L, BUN/Creatinine Ratio 6.5 L, Glucose 81, Calcium 8.6, Phosphorus 3.6, Magnesium 2.5, Triglycerides 81, Cholesterol 97, LDL Cholesterol 26, VLDL Cholesterol 16, HDL Cholesterol 55 Radiography Diagnostic Testing: Radiology Impression Brain MRI 12/06/22 14:03 IMPRESSION: (NOT LISTED IN ORDER OF SIGNIFICANCE) There are no acute intracranial findings. Electronically Signed: Manav Takeuchi, MD at 16:51 EDT , D/C Instructions Discharge Diet: Low fat / Low cholesterol Discharge Activity: Return to Normal Activity Meaningful Use Info Meaningful Use Diagnoses (Choose all that apply): None applicable Discharge Plan Admission Admit Date/Time: 12/05/22 13:56 Primary Reason for Your Visit: Slurred speech/unsteady gait Attending Provider: Melody Patrick Primary Care Provider: Wayne Leahy Chi Consulting Providers: Kianna Patrick; John Lutz Discharge Orders/Prescriptions Prescriptions: New clopidogrel 75 mg Tablet 75 mg PO DAILY Qty: 30 5RF Continued levothyroxine 100 mcg tablet 100 mcg PO DAILY handicap placcard See Rx Instructions .ROUTE .COMPLEX Qty: 1 0RF Rx Instructions: Duration: lifetime Diagnosis: CVA, debility nifedipine 60 mg tablet extended release 60 mg PO DAILY timolol maleate 1 DROP drops 1 drp EACH EYE BID calcium acetate(phosphat bind) 667 MG capsule 1,334 mg PO TIDCM latanoprost 1 DROP bottle 1 drp RIGHT EYE QHS isosorbide mononitrate 60 MG tablet 60 mg PO SUMOWEFR atorvastatin 20 mg Tablet 20 mg PO DAILY nutritional supplements Liquid 237 ml PO UD Pandel 0.1 % Cream 1 applic TOPICAL Q12H PRN (Reason: RASH/ITCHING) lidocaine-prilocaine 2.5-2.5 % Cream 1 applic topical TUTHSA B complex with C 20-folic acid 1 mg Capsule 1 cap PO DAILY albuterol sulfate 90 mcg/actuation HFA aerosol inhaler 2 inh INHALATION Q4H PRN (Reason: Shortness Of Breath) budesonide-formoterol 160-4.5 mcg/actuation Hfa Aerosol Inhaler 1 inh INHALATION QHS dextran 70-hypromellose 0.1-0.3 % Drops 1 drp ophthalmic (eye) QHS aspirin 81 MG tablet,delayed release (DR/EC) 81 mg PO DAILY albuterol sulfate 2.5 mg /3 mL (0.083 %) solution for nebulization 2.5 mg continuous nebulization Q4H PRN (Reason: SOB/Wheezing) Referrals / Follow Up: Elkin Presley MD [Non-Staff -Ordering Privileges] - Within 1 Month (stroke/TIA follow-up) Wayne Leahy Chi, MD [Primary Care Provider] - Within 2 Weeks Disposition Disposition (needs filled in before D/C Order can be placed): NonSkilled NH/Intermed Care Charges/Coding Visit Charges Inpatient E&M: 00991 SNF Disch
[2022-12-06 17:00] VITALS: BMI 25.3
== END 2022-12-06 18:41 | disposition intermediate care facility (04) ==
LOC: ED 13:56 → PCU 14:07
PROVIDERS: Admitting Provider Internal Medicine; Emergency Provider Emergency Medicine; PCP Family Medicine Geriatric Medicine; Visit Provider Internal Medicine
DX: I13.2 Hypertensive heart and chronic kidney disease with heart failure and with stage 5 chronic kidney disease, or end stage renal disease (principal); Z99.2 Dependence on renal dialysis; F03.90 Unspecified dementia, unspecified severity, without behavioral disturbance, psychotic disturbance, mood disturbance, and anxiety; J44.9 Chronic obstructive pulmonary disease, unspecified; I50.32 Chronic diastolic (congestive) heart failure; N18.6 End stage renal disease; D69.6 Thrombocytopenia, unspecified; Z79.02 Long term (current) use of antithrombotics/antiplatelets; R47.81 Slurred speech; D63.1 Anemia in chronic kidney disease; E78.5 Hyperlipidemia, unspecified; I69.322 Dysarthria following cerebral infarction; Z79.82 Long term (current) use of aspirin; H40.9 Unspecified glaucoma; R91.1 Solitary pulmonary nodule; D50.9 Iron deficiency anemia, unspecified; Z79.899 Other long term (current) drug therapy; R29.704 NIHSS score 4; E03.9 Hypothyroidism, unspecified; Z79.890 Hormone replacement therapy; R47.1 Dysarthria and anarthria
CPT/HCPCS: 36415; 70450; 70496; 70498; 70551; 71045; 80048; 80061; 82962; 83735; 84100; 84484; 85025; 85610; 85730; 92523; 93005; 93306; 94640; 94762; 96372; 97802; 99221; 99285; Q9967; G0378

== ENCOUNTER 2023-03-15 09:47 | Observation (INO) | payer MEDICARE, MEDICAID, SELFPAY ==
[2023-03-15] VITALS (10 sets, daily range): BP systolic 109–152; BP diastolic 60–94; PULSE 87–98; RESP 14–20; TEMP 36.5–37.1; O2SAT 96–100; BMI 27.7; BMI 27.6
--- NOTE | 2023-03-15 09:50 | NURSING ---
0940 STROKE ALERT CALLED, 4 MIN PRIOR TO ARRIVAL
--- NOTE | 2023-03-15 09:52 | CT_ITS ---
STUDY: CT HEAD STROKE PROTOCOL W/O CONTRAST INJECTION REASON FOR EXAM: Female, 88 years old. Neuro deficit, acute, stroke suspected RADIATION DOSAGE (If Supplied By Facility): CTDIvol = ( 44.99 ) mGy, DLP = ( 779.24 ) mGycm TECHNIQUE: Transaxial CT imaging of the brain was performed without administration of intravenous contrast material. Individualized dose optimization techniques were used for this CT. COMPARISON: Comparison is made with prior study dated December 05, 2022. FINDINGS: Normal soft tissue structures. Normal calvarium. There is moderate cerebral atrophy with widening of the extra-axial spaces and ventricular dilatation. There are areas of decreased attenuation within the white matter tracts of the supratentorial brain, consistent with microvascular disease changes. Focal encephalomalacia is seen in the medial aspect of the right occipital lobe. Stable decreased attenuation in the left temporal lobe. Normal basal ganglia and thalami. Old lacunar infarcts in the basal ganglia bilaterally. Normal cerebellum. There is no intracranial hemorrhage. There are no findings of an acute ischemic infarction. Mucosal thickening of the ethmoid sinuses bilaterally. ASPECT score: 10 CT/STROKE Brain/Head without Cont IMPRESSION: Chronic involutional changes of the brain. N.B. : The above Results were Read Back by Perfecto Brice MD to Dr Emmanuel MD, and understanding confirmed on 03/15/2023 10:16:47 (ET). Electronically Signed: Perfecto Brice MD at 10:17 EDT ,
--- NOTE | 2023-03-15 09:53 | CT_ITS ---
STUDY: CTA HEAD AND NECK WITH CONTRAST REASON FOR EXAM: Female, 88 years old. Neuro deficit, acute, stroke suspected RADIATION DOSAGE (If Supplied By Facility): CTDIvol = ( 17 ) mGy, DLP = ( 659.12 ) mGycm TECHNIQUE: CT angiography was performed with a multi-detector CT scanner. Data acquisition was obtained from the skull base through the vertex following intravenous administration of IV 100mL [id number]-[id number]. MIP images were reconstructed from the axial data set. Post-processing of the angiographic images was performed, with multiplanar reformation and 3D reconstruction. Individualized dose optimization techniques were used for this CT. COMPARISON: Comparison is made with prior study dated December 05, 2022 and July 17, 2022. FINDINGS: Normal bilateral petrous carotid arteries. There is calcified plaque formation of the right cavernous carotid artery, without a cross-sectional luminal stenosis. There is calcified plaque formation of the left cavernous carotid artery, without a cross-sectional luminal stenosis. Normal right A1 segments of the anterior cerebral artery. Normal left A1 segments of the anterior cerebral artery. Normal intact anterior communicating artery (ACOM). Normal bilateral A2 segments of the anterior cerebral arteries. Normal right M1 and M2 segments of the middle cerebral arteries, with a normal M1 bifurcation. Normal left M1 and M2 segments of the middle cerebral arteries, with a normal M1 bifurcation. Normal right posterior communicating artery (PCOM). Normal left posterior communicating artery (PCOM). Normal bilateral vertebral arteries. Normal basilar artery with a normal basilar bifurcation. The visualized bilateral superior cerebellar (SCA) arteries are normal. Normal bilateral P1, P2 and visualized P3 segments of the posterior cerebral arteries. There is no demonstrated aneurysm of the [place] of [place]. Heterogeneous partially calcified nodule in the inferior aspect of the left lobe of the thyroid. AORTIC ARCH: There is atherosclerotic calcific plaque formation of the aortic arch and great vessels arising from the aortic arch, without a hemodynamically significant stenosis. There is a bovine origin of the great vessels with a common origin of the brachiocephalic and left common carotid artery. Normal origin of the left subclavian artery. RIGHT CAROTID ARTERIES: Normal right common carotid artery (CCA). Normal right common carotid bulb. There is mild atherosclerotic plaque formation of the origin of the right internal carotid artery with less than 50% cross sectional diameter stenosis. Normal visualized cervical portion of the right internal carotid artery. Normal origin of the right external carotid artery (ECA). LEFT CAROTID ARTERIES: Normal left common carotid artery (CCA). Normal left common carotid bulb. Normal origin of the left internal carotid (ICA) artery without a hemodynamically significant stenosis. Normal visualized cervical portion of the left internal carotid artery. Normal origin of the left external carotid artery (ECA). VERTEBRAL ARTERIES: There is enhancement within the bilateral vertebral arteries with a small left vertebral artery, and a dominant right vertebral artery. CT/STROKE CTA Head AND Neck W/Con IMPRESSION: Minimal calcific plaque at the origin of the right internal carotid artery causing less than 50% narrowing. N.B. : The above Results were Read Back by Perfecto Brice MD to Dr Emmanuel MD, and understanding confirmed on 03/15/2023 10:33:02 (ET). Electronically Signed: Perfecto Brice MD at 10:34 EDT ,
--- NOTE | 2023-03-15 10:00 | NURSING ---
FAXED FACESHEET TO [facility]
[2023-03-15 10:45] LABS: Absolute Lymphocyte Count 0.69 X10^3/uL (0.83-4.51); Absolute Neutrophil Count 5.3 X10^3/uL (2.0-7.7); Basophil# 0.07 X10^3/uL; Eosinophil# 0.11 X10^3/uL; Eosinophils% 1.6 % (0-5); Hematocrit 36.3 % (37-47); Hemoglobin 11.5 g/dL (12.0-15.0); Lymphocyte # 0.69 X10^3/ul (0.83-4.51); Lymphocyte % 10.3 % (19-41); Mean Corp Hgb Conc 31.7 g/dL (32-36); Mean Corpuscular Hgb 28.6 pg (27.0-32.0); Mean Corpuscular Volume 90.3 fL (81-99); Monocyte# 0.56 X10^3/uL; Monocyte% 8.3 % (0-10); NRBC Flagged by Analyzer 0 % (0-5); Neutrophil # 5.26 X10^3/uL (2.7-7.7); Neutrophil % 78.5 % (47-70); Platelet Count 144 K/mm3 (150-450); RBC Distribution Width CV 14.2 % (11.6-14.6); RBC Distribution Width SD 46.9 fl (35.1-43.9); Red Blood Count 4.02 M/mm3 (4.2-5.4); White Blood Count 6.7 K/mm3 (4.4-11.0)
[2023-03-15 10:52] LABS: Partial Thromboplast Time 28.2 Seconds (24.1-36.2); Prothrombin Time (Protime)PT. 13.2 SECONDS (11.7-14.9)
--- NOTE | 2023-03-15 11:00 | RAD_ITS ---
STUDY: X-RAY CHEST REASON FOR EXAM: Female, 88 years old. Neuro deficit, acute, stroke suspected TECHNIQUE: Single AP portable view of the chest. COMPARISON: Comparison is made with prior examination December 05, 2022. FINDINGS: EKG electrodes are seen. Surgical clips are once again seen in the left axillary region. A loop recorder device is seen overlying the left hemithorax. Stable 2.6 cm nodular density in the medial right lung base. Stable mild scarring at the lung bases. There is no demonstrated pleural abnormality. There is borderline cardiomegaly. Normal mediastinum and chandrika. Normal visualized pulmonary arteries. There is atherosclerotic calcification of the aortic arch with tortuosity. There are diffuse degenerative changes of the visualized thoracic spine. There is degenerative osteoarthritis of the bilateral shoulders. There is no demonstrated abnormality of the visualized soft tissue structures of the upper abdomen. RAD/Chest 1 View IMPRESSION: Stable examination. No acute abnormality is seen. Electronically Signed: Perfecto Brice MD at 11:15 EDT ,
[2023-03-15 11:02] LABS: Anion Gap 5 (5-15); BUN 38 mg/dL (7-18); BUN/Creat Ratio 6.6 RATIO (10-20); Calcium,Total 8.4 mg/dL (8.5-10.1); Chloride 100 mmol/L (98-107); Creatinine, Serum 5.74 mg/dL (0.55-1.02); EST Glomerular Filtration Rate 7 mL/min (>60); Est Glom Filt Rate - Afr Amer 9 mL/min (>60); Estimated Creatinine Clearance 5.71 ml/min; Glucose 93 mg/dL (74-106); Potassium 4.3 mmol/L (3.5-5.1); Sodium Level 137 mmol/L (136-145); Troponin-I HS 38 pg/mL (3.0-54.0)
--- NOTE | 2023-03-15 11:21 | ED.RN ---
THIS RN CALLED THE AVENUE AT 1116 TO OBTAIN PT HOME MEDICATION LIST PER REQUEST FROM PT DAUGHTER. THE AVENUE TO FAX MEDICATION LIST TO ER.
--- NOTE | 2023-03-15 11:25 | EDS_ITS ---
HPI History of Present Illness Chief Complaint: Stroke Alert Narrative Narrative: 88-year-old female presents with left-sided weakness and confusion while at dialysis. According to EMS, her symptoms began at around 904 as she was maybe an hour and a half into dialysis. Of note, she has had reported TIAs in the past and history of a loop recorder, hypertension, and hyperlipidemia, and she has had tPA in the past for neurological symptoms. Her history and physical is mildly limited secondary to her age/dementia. EMS does note that her left-sided weakness of the upper and lower extremity is improving rapidly. [facility] Medical History Acute respiratory failure with hypoxia Anemia Anemia Asthma Cerebellar infarct Chronic diastolic (congestive) heart failure Chronic kidney disease (CKD) stage G5/A1, glomerular filtration rate (GFR) less than or equal to 15 mL/min/1.73 square meter and albuminuria creatinine ratio less than 30 mg/g Chronic renal failure, stage 5 Cough Dementia Elevated troponin I level End-stage renal disease (ESRD) ESRD (end stage renal disease) on dialysis Essential hypertension Glaucoma History of CVA (cerebrovascular accident) (12/15/19) Hyperlipidemia Hypertension Iron deficiency anemia Iron deficiency anemia Metabolic acidosis Obesity (BMI 30.0-34.9) Problem with dialysis access Problem with dialysis access RENAL FAILURE STAGE 6 Respiratory failure with hypoxia Shortness of breath Speech apraxia TIA (transient ischemic attack) Home Medications timolol maleate 0.5 % eye drops 1 drp EACH EYE BID GLAUCOMA 11/26/15 [History Last Taken 03/15/23] calcium acetate(phosphat bind) 667 mg capsule 1,334 mg PO TIDCM RENAL DIALYSIS 07/14/19 [History Last Taken 03/15/23] levothyroxine 100 mcg tablet 100 mcg PO DAILY thyroid 07/31/19 [History Last Taken 03/15/23] isosorbide mononitrate 60 mg tablet,extended release 24 hr 60 mg PO SUMOWEFR HTN 10/26/19 [History Last Taken 03/14/23] nifedipine 60 mg tablet,extended release 60 mg PO DAILY BLOOD PRESSURE 05/12/21 [History Last Taken 03/15/23] albuterol sulfate 90 mcg/actuation aerosol inhaler 2 inh inhalation Q4H PRN Shor tness Of Breath 07/17/22 [History Last Taken Unknown] aspirin 81 mg tablet,delayed release 81 mg PO DAILY HEART HEALTH 07/17/22 [History Last Taken 03/15/23] atorvastatin 20 mg tablet 20 mg PO DAILY CHOLESTEROL 07/17/22 [History Last Taken 03/14/23] budesonide-formoterol HFA 160 mcg-4.5 mcg/actuation aerosol inhaler 1 inh inhalation QHS SHORTNESS OF BREATH 07/17/22 [History Last Taken 03/14/23] dextran 70-hypromellose 0.1 %-0.3 % eye drops 1 drp ophthalmic (eye) QHS 07/17/22 [History Last Taken 03/14/23] hydrocortisone probutate 0.1 % topical cream (Pandel) 1 applic topical Q12H PRN RASH/ITCHING 07/17/22 [History Last Taken Unknown] vitamin B complex and vitamin C no.20-folic acid 1 mg capsule 1 cap PO DAILY 07/17/22 [History Last Taken 03/15/23] albuterol sulfate 2.5 mg/3 mL (0.083 %) solution for nebulization 2.5 mg continuous nebulization Q4H PRN SOB/Wheezing 12/05/22 [History Last Taken Unknown] clopidogrel 75 mg tablet 75 mg PO DAILY #30 tabs 12/06/22 [Rx Last Taken 03/15/23] quetiapine 25 mg tablet 25 mg PO QHS MOOD 03/15/23 [History Last Taken 03/14/23] Allergy/AdvReac Type Severity Reaction Status Date / Time erythromycin base Allergy Rash Verified 03/15/23 09:57 lisinopril Allergy Unknown Verified 03/15/23 09:57 NSAIDS (Non-Steroidal Allergy Other Verified 03/15/23 09:57 Anti-Inflamma Salicylates Allergy Other Verified 03/15/23 09:57 Family History Mother Colon cancer Hypertension Father Hypertension Surgical History History of loop recorder (07/20/19) Hx of cataract extraction Hx of foot surgery Hx of hysterectomy Hx of thyroidectomy s/p left AV fistula creation (02/19/19) Social History Smoking Status: Never smoker alcohol intake: never substance use type: does not use caffeine: Yes what type of physical activity do you participate in: none frequency: does not exercise ROS ROS ED ROS Narrative Limited secondary to dementia, baseline mental status. Per EMS: Constitutional: No fever, no chills. HEENT: No sore throat. No neck pain. No loss of vision. No rhinorrhea. Cardiovascular: No chest pain. No palpitations. No pedal edema. Respiratory: No cough, no shortness of breath. Abdominal: No abdominal pain. No nausea. No vomiting. Genitourinary: No dysuria. No hematuria. Musculoskeletal: No myalgias. No arthralgias. Left-sided weakness. Neurologic: No headaches. No dizziness. No lightheadedness. Skin: No rash. No change in color. Psychiatric: No depression. No anxiety. Positive confusion. Review of Systems ROS Unobtainable: due to mental status EXAM Physical Exam Narrative Exam Narrative: Afebrile. Vital signs noted. HEENT: Normocephalic. Atraumatic. PERRL, EOMI. Neck soft and supple. No point tenderness or step off. Cardiovascular: Regular rate and rhythm. No murmurs, rubs, or gallops appreciated. Respiratory: No tachypnea. Lungs clear to auscultation bilaterally. Gastrointestinal: Abdomen soft, nontender, with normoactive bowel sounds. No rebound or guarding. Neurological: Awake. Alert. Nonfocal, initially, difficulty following commands. Questionable left-sided weakness. I would score her NIH initially as 4 for slight pronator drift of her left arm, left lower extremity weakness, and a slight dysarthria, however, this is the initial exam before CT scanning. Skin: No rash. Normal color. No pallor. Musculoskeletal: No pedal edema. Const Vital Signs: 03/15/23 10:24 03/15/23 10:26 03/15/23 10:26 Temperature 97.7 F L Temperature Source Oral Pulse Rate 90 87 Respiratory Rate 20 H 16 Blood Pressure 109/94 H 109/94 H Blood Pressure Mean 99 99 Pulse Ox 98 100 Oxygen Delivery Method Room Air Room Air Room Air 03/15/23 11:05 03/15/23 11:06 03/15/23 11:53 Temperature Temperature Source Pulse Rate 90 94 89 Respiratory Rate 15 18 14 Blood Pressure 139/62 H 139/62 H 135/62 H Blood Pressure Mean 87 87 86 Pulse Ox 96 97 100 Oxygen Delivery Method Room Air Room Air Room Air NIHSS NIHSS Initial: 1a Level of Consciousness: 0 1b LOC Questions (Score 2 if aphasic/stupor): 0 1c LOC Commands (Only score 1st attempt): 0 2 Best Gaze (If aphasic, use reflexive mvmts.): 0 3 Visual: 0 4 Facial Palsy: 0 5 Motor Arm Right (UN = amputation/fusion): 0 5 Motor Arm Left: 1 6 Motor Leg Right: 0 6 Motor Leg Left: 2 8 Sensory (Aphasia/stupor=0 or 1, coma=2): 0 9 Best Language: 0 10 Dysarthria (mute, coma=2, intubated=UN): 1 11 Extinction and Inattention (only scored if +): 0 Total Score: 4 MDM MDM MDM Narrative Medical decision making narrative: Reviewed the patient's prior records, she has had similar symptoms in the past, and even received tPA for neurological symptoms. She has had facial droop and left-sided weakness in the past with aphasia and dysarthria. Her daughter is currently at the bedside, and states that she is not on any stroke medications currently. I reviewed her MRI as she had one recently this year which showed no acute process, no prior strokes. Additionally, I received a phone call from the radiologist and the CT of the brain is negative for acute pathology, no acute hemorrhage or mass. I discussed the patient with the telestroke neurologist who states that her symptoms have rapidly improved and are gone. With a negative MRI, she suggested that MRI be repeated as CTA of the head and neck is negative. Additionally, she suggested that there may be an alternative diagnosis such as unmasking as she has had work-ups in the past that were negative. I reviewed the patient's laboratory work and she has normal white count of 6.7, hemoglobin stable 11.5, hematocrit 36.3. Platelet count slightly low at 144 which I think is nonspecific. PT and INR are normal. She has a normal BMP with sodium normal at 137, potassium 4.3, chloride 100. Glucose normal at 93, high- sensitivity troponin also acceptable at 38. Upon repeat examination, she does not have any focal deficit or left-sided weakness. Her daughter is at the bedside and states that she is more at her baseline now. I discussed patient with Dr. Feliciano for observation. She will be placed on the PCU for obs ervation. He requested that the MRI be ordered from the emergency department so that she can be placed in the queue and get it today if possible. He will check the results. Disposition is assigned to observation. Patient is in stable condition. History & Record Review Discussion w/independent historian: EMS personnel, Patient and Family Additional record(s) reviewed:: Prior ED visit and Prior labs Lab Data Attestation: I reviewed the patient's lab results. Labs: Laboratory Results - last 24 hr 03/15/23 10:36 WBC 6.7 RBC 4.02 L Hgb 11.5 L Hct 36.3 L MCV 90.3 MCH 28.6 MCHC 31.7 L RDW Std Deviation 46.9 H RDW Coeff of Lizett 14.2 Plt Count 144 L MPV 11.0 Immature Gran % (Auto) 0.300 Neut % (Auto) 78.5 H Lymph % (Auto) 10.3 L Lea % (Auto) 8.3 Eos % (Auto) 1.6 Baso % (Auto) 1.0 Absolute Neuts (auto) 5.3 Absolute Lymphs (auto) 0.69 L Nucleated RBC % 0 PT 13.2 INR 1.0 APTT 28.2 Sodium 137 Potassium 4.3 Chloride 100 Carbon Dioxide 32.0 Anion Gap 5 BUN 38 H Creatinine 5.74 H Estim Creat Clear Calc 5.71 Est GFR (MDRD) Af Amer 9 L Est GFR (MDRD) Non-Af 7 L BUN/Creatinine Ratio 6.6 L Glucose 93 Calcium 8.4 L Troponin I High Sens 38 Radiography Diagnostic Testing: Clinical Impression(s) from Imaging Studies Brain CT 03/15/23 09:52 IMPRESSION: Chronic involutional changes of the brain. N.B. : The above Results were Read Back by Perfecto Brice MD to Dr Emamnuel MD, and understanding confirmed on 03/15/2023 10:16:47 (ET). Electronically Signed: Perfecto Brice MD at 10:17 EDT , Head/Neck CTA 03/15/23 09:53 IMPRESSION: Minimal calcific plaque at the origin of the right internal carotid artery causing less than 50% narrowing. N.B. : The above Results were Read Back by Perfecto Brice MD to Dr Emmanuel MD, and understanding confirmed on 03/15/2023 10:33:02 (ET). Electronically Signed: Perfecto Brice MD at 10:34 EDT , ADDENDUM: 03/15/23 1041 IMPRESSION: Minimal calcific plaque at the origin of the right internal carotid artery causing less than 50% narrowing. N.B. : The above Results were Read Back by Perfecto Brice MD to Dr Emmanuel MD, and understanding confirmed on 03/15/2023 10:33:02 (ET). Electronically Signed: Perfecto Brice MD at 10:34 EDT , Chest X-Ray 03/15/23 11:00 IMPRESSION: Stable examination. No acute abnormality is seen. Electronically Signed: Perfecto Brice MD at 11:15 EDT , Discharge Plan Dx/Rx/DC Orders Clinical Impression: Left-sided weakness, Essential hypertension, Confusion, ESRD on hemodialysis Disposition Disposition: Acute Care Hospital [facility]
--- NOTE | 2023-03-15 11:39 | MRI_ITS ---
STUDY: MRI BRAIN WITHOUT CONTRAST REASON FOR EXAM: Female, 88 years old. TIA, left sided weakness, confusion TECHNIQUE: Standardized multiplanar fat and water weighted pulse sequences were obtained. COMPARISON: December 06, 2022 MRI, March 15, 2023 CT FINDINGS: There is moderate cerebral atrophy with widening of the extra-axial spaces and ventricular dilatation. There are multiple white matter hyperintensities, distributed throughout the deep white matter tracts of the cerebral hemispheres, consistent with moderate chronic white matter ischemic changes. There is left temporal and right occipital volume loss and encephalomalacia. There is right frontal gliosis. There is no evidence for recent intracranial ischemia or other cause of cytotoxic edema on diffusion weighted imaging (DWI). Normal T2* images of the brain without demonstrated susceptibility artifact. There is no demonstrated hemosiderin stain. There are lacunar infarcts of the basal ganglia. Normal bilateral basal ganglia. Normal thalami. There is no extra-axial fluid accumulation. Normal flow voids within the major intracranial circulation suggesting patency by spin echo criteria. Normal sella turcica, pituitary gland, infundibular stalk, optic chiasm and hypothalamus. Normal tectal plate and pineal gland. Normal midbrain, bree and medulla. Normal cerebellum. Normal basal cisterns. 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 Normal bilateral internal auditory canals. There are bilateral ocular lens implants with otherwise normal intraorbital contents. Normal visualized paranasal sinuses. Normal calvarium and skull base. Normal visualized soft tissue structures. Normal visualized upper cervical spine. MRI/Brain without Contrast IMPRESSION: Involutional changes of the brain, as described above. Electronically Signed: Bulmaro Garner MD at 19:18 EDT ,
--- NOTE | 2023-03-15 11:46 | NURSING ---
PCU OBS BEBETO LEFT SIDED WEAKNESS, CONFUSION
--- NOTE | 2023-03-15 13:40 | ED.RN ---
THIS RN TOOK PT TO ICU. [facility] COMPLETED WITH [facility] AT BEDSIDE. PT AT BASELINE.
[2023-03-15] MEDS: Albuterol 2.5 MG/3 ML VIAL.NEB. INHALATION ×2 (13:55→19:54)
--- NOTE | 2023-03-15 14:56 | PCM.HP.STD ---
HPI - General General Date of Admission: 03/15/23 HPI Narrative LOUISE ZAVALA, is a 88 F who presents from halfway with signs and symptoms consistent with a stroke. She was at dialysis when she developed left-sided weakness and confusion. Does appear that the confusion is resolved as is the left-sided weakness. Stroke alert was called and [facility] neurology recommended inpatient observation with further stroke work-up. She has had significant work-ups in the past with negative MRIs and she had a recent echo in November that demonstrated an EF of 65% with stage II diastolic dysfunction. She is completely asymptomatic and is alert and oriented person and place. No tPA was given. [facility] Medical History Acute respiratory failure with hypoxia Anemia Anemia Asthma Cerebellar infarct Chronic diastolic (congestive) heart failure Chronic kidney disease (CKD) stage G5/A1, glomerular filtration rate (GFR) less than or equal to 15 mL/min/1.73 square meter and albuminuria creatinine ratio less than 30 mg/g Chronic renal failure, stage 5 Cough Dementia Elevated troponin I level End-stage renal disease (ESRD) ESRD (end stage renal disease) on dialysis Essential hypertension Glaucoma History of CVA (cerebrovascular accident) (12/15/19) Hyperlipidemia Hypertension Iron deficiency anemia Iron deficiency anemia Metabolic acidosis Obesity (BMI 30.0-34.9) Problem with dialysis access Problem with dialysis access RENAL FAILURE STAGE 6 Respiratory failure with hypoxia Shortness of breath Speech apraxia TIA (transient ischemic attack) Home Medications timolol maleate 0.5 % eye drops 1 drp EACH EYE BID GLAUCOMA 11/26/15 [History Last Taken 03/15/23] calcium acetate(phosphat bind) 667 mg capsule 1,334 mg PO TIDCM RENAL DIALYSIS 07/14/19 [History Last Taken 03/15/23] levothyroxine 100 mcg tablet 100 mcg PO DAILY thyroid 07/31/19 [History Last Taken 03/15/23] isosorbide mononitrate 60 mg tablet,extended release 24 hr 60 mg PO SUMOWEFR HTN 10/26/19 [History Last Taken 03/14/23] nifedipine 60 mg tablet,extended release 60 mg PO DAILY BLOOD PRESSURE 05/12/21 [History Last Taken 03/15/23] albuterol sulfate 90 mcg/actuation aerosol inhaler 2 inh inhalation Q4H PRN Shortness Of Breath 07/17/22 [History Last Taken Unknown] aspirin 81 mg tablet,delayed release 81 mg PO DAILY HEART HEALTH 07/17/22 [History Last Taken 03/15/23] atorvastatin 20 mg tablet 20 mg PO DAILY CHOLESTEROL 07/17/22 [History Last Taken 03/14/23] budesonide-formoterol HFA 160 mcg-4.5 mcg/actuation aerosol inhaler 1 inh inhalation QHS SHORTNESS OF BREATH 07/17/22 [History Last Taken 03/14/23] dextran 70-hypromellose 0.1 %-0.3 % eye drops 1 drp ophthalmic (eye) QHS 07/17/22 [History Last Taken 03/14/23] hydrocortisone probutate 0.1 % topical cream (Pandel) 1 applic topical Q12H PRN RASH/ITCHING 07/17/22 [History Last Taken Unknown] vitamin B complex and vitamin C no.20-folic acid 1 mg capsule 1 cap PO DAILY 07/17/22 [History Last Taken 03/15/23] albuterol sulfate 2.5 mg/3 mL (0.083 %) solution for nebulization 2.5 mg continuous nebulization Q4H PRN SOB/Wheezing 12/05/22 [History Last Taken Unknown] clopidogrel 75 mg tablet 75 mg PO DAILY #30 tabs 12/06/22 [Rx Last Taken 03/15/23] quetiapine 25 mg tablet 25 mg PO QHS MOOD 03/15/23 [History Last Taken 03/14/23] Allergy/AdvReac Type Severity Reaction Status Date / Time erythromycin base Allergy Rash Verified 03/15/23 09:57 lisinopril Allergy Unknown Verified 03/15/23 09:57 NSAIDS (Non-Steroidal Allergy Other Verified 03/15/23 09:57 Anti-Inflamma Salicylates Allergy Other Verified 03/15/23 09:57 Family History Mother Colon cancer Hypertension Father Hypertension Surgical History History of loop recorder (07/20/19) Hx of cataract extraction Hx of foot surgery Hx of hysterectomy Hx of thyroidectomy s/p left AV fistula creation (02/19/19) Social History Smoking Status: Never smoker alcohol intake: never substance use type: does not use caffeine: Yes what type of physical activity do you participate in: none frequency: does not exercise ROS Constitutional Constitutional: Denies chills, fatigue, fever(s) or malaise Eyes Eyes: Denies blurry vision ENT HEENT: Denies headache(s) or nasal discharge Cardiovascular Cardiovascular: Denies chest pain, dyspnea on exertion or syncope Respiratory/Chest Respiratory/Chest: Denies cough, shortness of breath at rest or shortness of breath with exertion Gastrointestinal Gastrointestinal: Denies constipation, diarrhea, nausea or vomiting Genitourinary Genitourinary: Denies dysuria Neurologic Neurologic: Reports confusion and focal weakness; Denies numbness or tremor(s) Psychiatric Psychiatric: Denies anxiety or depression Vital Signs Vital Signs Vital Signs: 03/15/23 10:24 03/15/23 10:26 03/15/23 10:26 Temperature 97.7 F L Temperature Source Oral Pulse Rate 90 87 Respiratory Rate 20 H 16 Blood Pressure 109/94 H 109/94 H Blood Pressure Mean 99 99 Pulse Ox 98 100 Oxygen Delivery Method Room Air Room Air Room Air 03/15/23 11:05 03/15/23 11:06 03/15/23 11:53 Temperature Temperature Source Pulse Rate 90 94 89 Respiratory Rate 15 18 14 Blood Pressure 139/62 H 139/62 H 135/62 H Blood Pressure Mean 87 87 86 Pulse Ox 96 97 100 Oxygen Delivery Method Room Air Room Air Room Air 03/15/23 12:02 03/15/23 12:11 03/15/23 13:13 Temperature Temperature Source Pulse Rate 88 89 87 Respiratory Rate 16 17 14 Blood Pressure 127/64 H 127/64 H 143/60 H Blood Pressure Mean 85 85 87 Pulse Ox 99 99 97 Oxygen Delivery Method Room Air Room Air Weight Weight: 155 lb 13.869 oz Body Mass Index (BMI) 27.6 Physical Exam Narrative General: Alert, Oriented x2, Cooperative, No apparent distress HEENT: Atraumatic, PERRLA, EOMI, Normocephalic Oral: Moist Mucosa Neck: Supple, No JVD Lungs: Diminished, Normal air movement, No rhonchi, No wheeze, No rales Cardiovascular: Regular rate, Regular Rhythm, Normal S1, Normal S2, No murmurs Abdomen: Soft, Non Tender, Non-Distended, No Hepato-splenomegaly Extremities: No edema, Capillary Refill Less than 3 Seconds Skin: No rashes, No breakdown Musculoskeletal: No Tenderness to Palpation of Joints or Extremities Neurological: Cranial nerves II-XII grossly intact, Motor Exam 5/5 strength throughout, Sensory exam intact to light touch and pain Psych/Mental Status: Normal Affect, Appropriate Results Lab / Micro Data 03/15/23 10:36 03/15/23 10:36 Labs: Laboratory Results - last 24 hr 03/15/23 10:36: WBC 6.7, RBC 4.02 L, Hgb 11.5 L, Hct 36.3 L, MCV 90.3, MCH 28.6, MCHC 31.7 L, RDW Std Deviation 46.9 H, RDW Coeff of Lizett 14.2, Plt Count 144 L, MPV 11.0, Immature Gran % (Auto) 0.300, Neut % (Auto) 78.5 H, Lymph % (Auto) 10.3 L, Cameron % (Auto) 8.3, Eos % (Auto) 1.6, Baso % (Auto) 1.0, Absolute Neuts (auto) 5.3, Absolute Lymphs (auto) 0.69 L, Nucleated RBC % 0, PT 13.2, INR 1.0, APTT 28.2, Sodium 137, Potassium 4.3, Chloride 100, Carbon Dioxide 32.0, Anion Gap 5, BUN 38 H, Creatinine 5.74 H, Estim Creat Clear Calc 5.71, Est GFR (MDRD) Af Amer 9 L, Est GFR (MDRD) Non-Af 7 L, BUN/Creatinine Ratio 6.6 L, Glucose 93, Calcium 8.4 L, Troponin I High Sens [address] 03/15/23 09:52 IMPRESSION: Chronic involutional changes of the brain. N.B. : The above Results were Read Back by Perfecto Brice MD to Dr Emmanuel MD, and understanding confirmed on 03/15/2023 10:16:47 (ET). Electronically Signed: Perfecto Brice MD at 10:17 EDT , Head/Neck CTA 03/15/23 09:53 IMPRESSION: Minimal calcific plaque at the origin of the right internal carotid artery causing less than 50% narrowing. N.B. : The above Results were Read Back by Perfecto Brice MD to Dr Emmanuel MD, and understanding confirmed on 03/15/2023 10:33:02 (ET). Electronically Signed: Perfecto Brice MD at 10:34 EDT , ADDENDUM: 03/15/23 1041 IMPRESSION: Minimal calcific plaque at the origin of the right internal carotid artery causing less than 50% narrowing. N.B. : The above Results were Read Back by Perfecto Brice MD to Dr Emmanuel MD, and understanding confirmed on 03/15/2023 10:33:02 (ET). Electronically Signed: Perfecto Brice MD at 10:34 EDT , Chest X-Ray 03/15/23 11:00 IMPRESSION: Stable examination. No acute abnormality is seen. Electronically Signed: Perfecto Brice MD at 11:15 EDT , Assessment & Plan Assessment/Plan (1) Left-sided weakness: PLAN: Plan 1. CVA rule out ? We will obtain an MRI ? Will not obtain a echo as this was recently done 2 months ago, CTA of the head and neck is unremarkable on this admission ? She has had a previous EEG which was negative for seizure, and she has had work-ups in the past that were unremarkable ? As she is already on aspirin and Plavix, the only change that I can make is to increase her Lipitor ? She did have a loop recorder in June 2019 so unlikely to have A-fib 2. HTN/HLD/chronic diastolic CHF ? Recent echo with an EF of 65% and stage II diastolic dysfunction ? Can resume her home blood pressure medications tomorrow as I will be a 24-hour window progressive hypertension ? Blood pressures are currently stable ? We will continue to monitor and make adjustments as necessary ? Continue with aspirin and Plavix 3. ESRD on Dialysis/Anemia of chronic disease ? Consult nephrology for dialysis 4. Hypothyroidism ? Stable ? Continue with Synthroid DVT: Ambulation 75 minutes was spent on direct patient care, including documentation as well as chart review and collaboration with colleagues Charges/Coding Visit Charges Inpatient E&M: 34098 Init Hosp L3
--- NOTE | 2023-03-15 15:56 | NURSING ---
HD needles removed from CULLEN fistula without difficulty. DSD applied. Pt tolerated well.
--- NOTE | 2023-03-15 18:09 | NURSING ---
patient arrived to PCU and immediately went down to MRI. Pt was alert and oriented but forgetful.
--- NOTE | 2023-03-15 18:58 | NURSING ---
NIH late due to pt at MRI
[2023-03-15] MEDS: Budesonide Respules 0.5 MG/2 ML AMPUL.NEB. INHALATION (19:54)
[2023-03-15] MEDS: QUEtiapine 25 MG Tablet PO (23:40)
[2023-03-15] MEDS: Timolol 0.5% 5ML OPTH.BTL 1 DRP EACH EYE (23:40)
[2023-03-16 00:07] VITALS: BP 144/58; PULSE 89; RESP 16; TEMP 36.5; O2SAT 98
[2023-03-16 02:40] VITALS: BMI 27.6
[2023-03-16] MEDS: Levothyroxine 100 MCG Tablet PO (04:57)
[2023-03-16 04:59] VITALS: BP 157/63; PULSE 85; RESP 14; TEMP 36.3; O2SAT 97
[2023-03-16 06:17] LABS: Absolute Lymphocyte Count 1.64 X10^3/uL (0.83-4.51); Absolute Neutrophil Count 3.3 X10^3/uL (2.0-7.7); Basophil# 0.06 X10^3/uL; Eosinophils% 3.5 % (0-5); Hematocrit 31.7 % (37-47); Lymphocyte # 1.64 X10^3/ul (0.83-4.51); Lymphocyte % 28.6 % (19-41); Mean Corp Hgb Conc 31.5 g/dL (32-36); Mean Corpuscular Hgb 29.1 pg (27.0-32.0); Mean Corpuscular Volume 92.2 fL (81-99); Mean Platelet Vol. 11.8 fl (6.2-12.0); Monocyte# 0.57 X10^3/uL; Monocyte% 9.9 % (0-10); NRBC Flagged by Analyzer 0 % (0-5); Neutrophil # 3.25 X10^3/uL (2.7-7.7); Neutrophil % 56.7 % (47-70); Platelet Count 140 K/mm3 (150-450); RBC Distribution Width CV 14.5 % (11.6-14.6); RBC Distribution Width SD 48.5 fl (35.1-43.9); Red Blood Count 3.44 M/mm3 (4.2-5.4); White Blood Count 5.7 K/mm3 (4.4-11.0)
[2023-03-16 07:01] LABS: Anion Gap 6 (5-15); BUN 53 mg/dL (7-18); BUN/Creat Ratio 6.9 RATIO (10-20); Calcium,Total 8.1 mg/dL (8.5-10.1); Chloride 104 mmol/L (98-107); Cholesterol 101 mg/dL (200); Creatinine, Serum 7.71 mg/dL (0.55-1.02); EST Glomerular Filtration Rate 5 mL/min (>60); Est Glom Filt Rate - Afr Amer 6 mL/min (>60); Estimated Creatinine Clearance 4.25 ml/min; Glucose 85 mg/dL (74-106); High Density Lipoprotein 60 mg/dL; Potassium 5.1 mmol/L (3.5-5.1); Sodium Level 139 mmol/L (136-145); Triglycerides 33 mg/dL; Very Low Density Lipoprotein 7 mg/dL (5-40)
[2023-03-16 07:22] VITALS: PULSE 88; RESP 16; O2SAT 96
[2023-03-16] MEDS: Albuterol 2.5 MG/3 ML VIAL.NEB. INHALATION (07:22)
[2023-03-16] MEDS: Budesonide Respules 0.5 MG/2 ML AMPUL.NEB. INHALATION (07:22)
--- NOTE | 2023-03-16 07:22 | CPS ---
Pt was confused, R.T. went to take aerosol mask off her, pt grabbed onto the neb cup and wouldn't let go. Tried to redirect her attention until she let go of the neb cup.
--- NOTE | 2023-03-16 08:33 | PCM.CONS.R ---
Assessment & Plan Assessment/Plan (1) ESRD on hemodialysis: PLAN: dialysis TTS, next dialysis (2) Confusion: PLAN: chronic, at baseline due to dementia (3) Left-sided weakness: PLAN: resolved (4) assisted resident: (5) Dementia: QUALIFIERS: Dementia type: vascular dementia HPI Consult Data Date of Consult: 03/16/23 HPI Narrative Reason for Consultation: ESRD HD TTS HPI Narrative: LOUISE ZAVALA, is a 88 F who presents from dialysis yesterday for stroke symptoms.During dialysis about 2 hours into treatment she developed left sided weakness. BP stable during treatment. Pt confused at baseline due to dementia. Pt is a resident of [facility]. She has had significant work-ups in the past with negative MRIs CT head this admission unremarkable for acute findings. She was admitted as observation to intensive care thne transferred to telemetry. She remains pleasantly confused, at baseline. She is oriented to place but not time. She does not know what dialysis is. [facility] Medical History (Updated 03/16/23 @ 09:[address] Kianna Patrick DO) Acute respiratory failure with hypoxia Anemia Anemia Asthma Cerebellar infarct Chronic diastolic (congestive) heart failure Chronic kidney disease (CKD) stage G5/A1, glomerular filtration rate (GFR) less than or equal to 15 mL/min/1.73 square meter and albuminuria creatinine ratio less than 30 mg/g Chronic renal failure, stage 5 Cough Dementia Elevated troponin I level End-stage renal disease (ESRD) ESRD (end stage renal disease) on dialysis Essential hypertension Glaucoma History of CVA (cerebrovascular accident) (12/15/19) Hyperlipidemia Hypertension Iron deficiency anemia Iron deficiency anemia Metabolic acidosis Obesity (BMI 30.0-34.9) Problem with dialysis access Problem with dialysis access RENAL FAILURE STAGE 6 Respiratory failure with hypoxia Shortness of breath Speech apraxia TIA (transient ischemic attack) Home Medications timolol maleate 0.5 % eye drops 1 drp EACH EYE BID GLAUCOMA 11/26/15 [History Last Taken 03/15/23] calcium acetate(phosphat bind) 667 mg capsule 1,334 mg PO TIDCM RENAL DIALYSIS 07/14/19 [History Last Taken 03/15/23] levothyroxine 100 mcg tablet 100 mcg PO DAILY thyroid 07/31/19 [History Last Taken 03/15/23] isosorbide mononitrate 60 mg tablet,extended release 24 hr 60 mg PO SUMOWEFR HTN 10/26/19 [History Last Taken 03/14/23] nifedipine 60 mg tablet,extended release 60 mg PO DAILY BLOOD PRESSURE 05/12/21 [History Last Taken 03/15/23] albuterol sulfate 90 mcg/actuation aerosol inhaler 2 inh inhalation Q4H PRN Shortness Of Breath 07/17/22 [History Last Taken Unknown] aspirin 81 mg tablet,delayed release 81 mg PO DAILY HEART HEALTH 07/17/22 [History Last Taken 03/15/23] atorvastatin 20 mg tablet 20 mg PO DAILY CHOLESTEROL 07/17/22 [History Last Taken 03/14/23] budesonide-formoterol HFA 160 mcg-4.5 mcg/actuation aerosol inhaler 1 inh inhalation QHS SHORTNESS OF BREATH 07/17/22 [History Last Taken 03/14/23] dextran 70-hypromellose 0.1 %-0.3 % eye drops 1 drp ophthalmic (eye) QHS 07/17/22 [History Last Taken 03/14/23] hydrocortisone probutate 0.1 % topical cream (Pandel) 1 applic topical Q12H PRN RASH/ITCHING 07/17/22 [History Last Taken Unknown] vitamin B complex and vitamin C no.20-folic acid 1 mg capsule 1 cap PO DAILY 07/17/22 [History Last Taken 03/15/23] albuterol sulfate 2.5 mg/3 mL (0.083 %) solution for nebulization 2.5 mg continuous nebulization Q4H PRN SOB/Wheezing 12/05/22 [History Last Taken Unknown] clopidogrel 75 mg tablet 75 mg PO DAILY #30 tabs 12/06/22 [Rx Last Taken 03/15/23] quetiapine 25 mg tablet 25 mg PO QHS MOOD 03/15/23 [History Last Taken 03/14/23] Allergy/AdvReac Type Severity Reaction Status Date / Time erythromycin base Allergy Rash Verified 03/15/23 09:57 lisinopril Allergy Unknown Verified 03/15/23 09:57 NSAIDS (Non-Steroidal Allergy Other Verified 03/15/23 09:57 Anti-Inflamma Salicylates Allergy Other Verified 03/15/23 09:57 Family History Mother Colon cancer Hypertension Father Hypertension Surgical History History of loop recorder (07/20/19) Hx of cataract extraction Hx of foot surgery Hx of hysterectomy Hx of thyroidectomy s/p left AV fistula creation (02/19/19) Social History Smoking Status: Never smoker alcohol intake: never substance use type: does not use caffeine: Yes what type of physical activity do you participate in: none frequency: does not exercise ROS Review of Systems ROS Unobtainable: due to mental status Eyes Eyes: Denies change in vision Cardiovascular Cardiovascular: Denies chest pain Respiratory/Chest Respiratory/Chest: Denies shortness of breath at rest Gastrointestinal Gastrointestinal: Denies abdominal pain Neurologic Neurologic: Reports confusion; Denies focal weakness or headache(s) Psychiatric Psychiatric: Reports confusion Hematologic/Lymphatic Hematologic/Lymphatic: Reports anemia Physical Exam Narrative dementia, confusion at baseline Const no apparent distress Constitutional Narrative: disoriented to person and time General Appearance: well developed Orientation / Consciousness: confused HEENT HEENT Narrative: poor historian, dementia Resp no use of accessory muscles and clear to auscultation bilaterally Cardio regular rate GI non-tender and non-distended Auscultation: normoactive bowel sounds Extremity full ROM and no clubbing, cyanosis or edema General Extremity: AV fistula Neuro moves all extremities and no focal motor deficits Psych cooperative Lab / Micro Data 03/16/23 05:12 03/16/23 05:12 Labs: Laboratory Results - last 24 hr 03/15/23 10:36: WBC 6.7, RBC 4.02 L, Hgb 11.5 L, Hct 36.3 L, MCV 90.3, MCH 28.6, MCHC 31.7 L, RDW Std Deviation 46.9 H, RDW Coeff of Lizett 14.2, Plt Count 144 L, MPV 11.0, Immature Gran % (Auto) 0.300, Neut % (Auto) 78.5 H, Lymph % (Auto) 10.3 L, [place] % (Auto) 8.3, Eos % (Auto) 1.6, Baso % (Auto) 1.0, Absolute Neuts (auto) 5.3, Absolute Lymphs (auto) 0.69 L, Nucleated RBC % 0, PT 13.2, INR 1.0, APTT 28.2, Sodium 137, Potassium 4.3, Chloride 100, Carbon Dioxide 32.0, Anion Gap 5, BUN 38 H, Creatinine 5.74 H, Estim Creat Clear Calc 5.71, Est GFR (MDRD) Af Amer 9 L, Est GFR (MDRD) Non-Af 7 L, BUN/Creatinine Ratio 6.6 L, Glucose 93, Calcium 8.4 L, Troponin I High Sens 38 03/16/23 05:12: WBC 5.7, RBC 3.44 L, Hgb 10.0 L, Hct 31.7 L, MCV 92.2, MCH 29.1, MCHC 31.5 L, RDW Std Deviation 48.5 H, RDW Coeff of Lizett 14.5, Plt Count 140 L, MPV 11.8, Immature Gran % (Auto) 0.300, Neut % (Auto) 56.7, Lymph % (Auto) 28.6, [place] % (Auto) 9.9, Eos % (Auto) 3.5, Baso % (Auto) 1.0, Absolute Neuts (auto) 3.3, Absolute Lymphs (auto) 1.64, Nucleated RBC % 0, Sodium 139, Potassium 5.1, Chloride 104, Carbon Dioxide 29.0, Anion Gap 6, BUN 53 H, Creatinine 7.71 H*, Estim Creat Clear Calc 4.25, Est GFR (MDRD) Af Amer 6 L, Est GFR (MDRD) Non-Af 5 L, BUN/Creatinine Ratio 6.9 L, Glucose 85, Calcium 8.1 L, Triglycerides 33, Cholesterol 101, LDL Cholesterol 34, VLDL Cholesterol 7, HDL Cholesterol [address] 03/15/23 09:52 IMPRESSION: Chronic involutional changes of the brain. N.B. : The above Results were Read Back by Perfecto Brice MD to Dr Emmanuel MD, and understanding confirmed on 03/15/2023 10:16:47 (ET). Electronically Signed: Perfecto Brice MD at 10:17 EDT , Head/Neck CTA 03/15/23 09:53 IMPRESSION: Minimal calcific plaque at the origin of the right internal carotid artery causing less than 50% narrowing. N.B. : The above Results were Read Back by Perfecto Brice MD to Dr Emmanuel MD, and understanding confirmed on 03/15/2023 10:33:02 (ET). Electronically Signed: Perfecto Brice MD at 10:34 EDT , ADDENDUM: 03/15/23 1041 IMPRESSION: Minimal calcific plaque at the origin of the right internal carotid artery causing less than 50% narrowing. N.B. : The above Results were Read Back by Perfecto Brice MD to Dr Emmanuel MD, and understanding confirmed on 03/15/2023 10:33:02 (ET). Electronically Signed: Perfecto Brice MD at 10:34 EDT , Chest X-Ray 03/15/23 11:00 IMPRESSION: Stable examination. No acute abnormality is seen. Electronically Signed: Perfecto Brice MD at 11:15 EDT , Brain MRI 03/15/23 11:39 IMPRESSION: Involutional changes of the brain, as described above. Electronically Signed: Bulmaro Garner MD at 19:18 EDT ,
[2023-03-16] MEDS: Aspirin E.C. 81 MG Tablet PO (09:00)
--- NOTE | 2023-03-16 09:07 | CASEMGMT ---
Discharge Planning Updates sent to [facility] via [facility]. Asked if precert is needed to return. Awaiting response. Nina Trejo, Discharge Planning Asst.
--- NOTE | 2023-03-16 09:16 | CASEMGMT ---
Discharge Planning Patient will not need a precert to return. SW updated. Nina Trejo, Discharge Planning Asst.
[2023-03-16] MEDS: Isosorbide Mononitrate 60 MG Tablet PO (09:50)
[2023-03-16] MEDS: NIFEdipine 60 MG Tablet PO (09:51)
[2023-03-16] MEDS: Atorvastatin Calcium 20 MG Tablet PO (09:51)
[2023-03-16] MEDS: Clopidogrel Bisulfate 75 MG Tablet PO (09:51)
[2023-03-16] MEDS: Timolol 0.5% 5ML OPTH.BTL 1 DRP EACH EYE (09:51)
[2023-03-16 09:52] VITALS: BMI 27.6
[2023-03-16] MEDS: 0.9% Saline Lock 10 ML Syringe IV (09:52)
[2023-03-16 10:00] VITALS: BP 160/60; PULSE 89; RESP 16; TEMP 36.9; O2SAT 98
--- NOTE | 2023-03-16 11:24 | CASEMGMT ---
SHERYL met with patient and her daughter. Introduced self and role at [facility]. Patient's daughter confirmed the plan is to return to [place]. Deanne LEMUS
--- NOTE | 2023-03-16 11:46 | PCM.TXEXTCAR ---
Diet Diet Order/Speech Therapy: 03/15/23 16:44 Diet: Renal - General Food consistency:: Regular Liquid Consistency:: Regular/Thin Type of Dietary Supplement:: Nepro Diet Comments: 120mL Nepro BID w/ breakfast and dinner meals Routine Orders/Code Status Routine Lab Work: CBC and BMP Code Status: Full Code Therapies Physical Therapy: Eval and Treat Occupational Therapy: Eval and Treat Problem/Diagnosis (1) ESRD on hemodialysis: Status: Acute Code(s): N18.6 - End stage renal disease; Z99.2 - Dependence on renal dialysis (2) Confusion: Status: Acute Code(s): R41.0 - Disorientation, unspecified (3) Left-sided weakness: Status: Acute Code(s): R53.1 - Weakness (4) [facility] resident: Status: Acute Code(s): Z59.3 - Problems related to living in residential institution (5) Dementia: Status: Acute Code(s): F03.90 - Unspecified dementia, unspecified severity, without behavioral disturbance, psychotic disturbance, mood disturbance, and anxiety Plan 1. CVA rule out ? We will obtain an MRI ? Will not obtain a echo as this was recently done 2 months ago, CTA of the head and neck is unremarkable on this admission ? She has had a previous EEG which was negative for seizure, and she has had work-ups in the past that were unremarkable ? As she is already on aspirin and Plavix, the only change that I can make is to increase her Lipitor ? She did have a loop recorder in June 2019 so unlikely to have A-fib 2. HTN/HLD/chronic diastolic CHF ? Recent echo with an EF of 65% and stage II diastolic dysfunction ? Can resume her home blood pressure medications tomorrow as I will be a 24-hour window progressive hypertension ? Blood pressures are currently stable ? We will continue to monitor and make adjustments as necessary ? Continue with aspirin and Plavix 3. ESRD on Dialysis/Anemia of chronic disease ? Consult nephrology for dialysis 4. Hypothyroidism ? Stable ? Continue with Synthroid DVT: Ambulation 75 minutes was spent on direct patient care, including documentation as well as chart review and collaboration with colleagues Allergies/Procedures Done in Hospital Allergies erythromycin base Allergy (Verified 03/15/23 09:57) Rash lisinopril Allergy (Verified 03/15/23 09:57) Unknown NSAIDS (Non-Steroidal Anti-Inflamma Allergy (Verified 03/15/23 09:57) Other Salicylates Allergy (Verified 03/15/23 09:57) Other Procedures: None Type of Care/Length of Stay Estimated LOS: More Than 30 Days Type of Care Needed: Intermediate Rehab Potential: Good Prognosis: Good Additional Orders/Day of Discharge Day of Discharge: 03/16/23 Dietary and Speech Recommendations Dietitian Recommendations/Changes: Will change diet to Renal. Will add 120mL PO Nepro BID w/ breakfast and dinner meals. Discharge Plan Admission Admit Date/Time: 03/15/23 12:24 Attending Provider: Micha Feliciano Primary Care Provider: Wayne Leahy Chi Consulting Providers: Kianna Patrick Discharge Orders/Prescriptions Prescriptions: Continued levothyroxine 100 mcg tablet 100 mcg PO DAILY nifedipine 60 mg tablet extended release 60 mg PO DAILY timolol maleate 1 DROP drops 1 drp EACH EYE BID calcium acetate(phosphat bind) 667 MG capsule 1,334 mg PO TIDCM isosorbide mononitrate 60 MG tablet 60 mg PO SUMOWEFR Pandel 0.1 % Cream 1 applic TOPICAL Q12H PRN (Reason: RASH/ITCHING) Patient Comments: PRN PER MAR B complex with C 20-folic acid 1 mg Capsule 1 cap PO DAILY albuterol sulfate 90 mcg/actuation HFA aerosol inhaler 2 inh INHALATION Q4H PRN (Reason: Shortness Of Breath) Patient Comments: PRN PER MAR budesonide-formoterol 160-4.5 mcg/actuation Hfa Aerosol Inhaler 1 inh INHALATION QHS dextran 70-hypromellose 0.1-0.3 % Drops 1 drp ophthalmic (eye) QHS aspirin 81 MG tablet,delayed release (DR/EC) 81 mg PO DAILY albuterol sulfate 2.5 mg /3 mL (0.083 %) solution for nebulization 2.5 mg continuous nebulization Q4H PRN (Reason: SOB/Wheezing) Patient Comments: PRN PER MAR clopidogrel 75 mg Tablet 75 mg PO DAILY Qty: 30 5RF quetiapine 25 mg tablet 25 mg PO QHS Changed atorvastatin 20 mg Tablet 40 mg PO DAILY Qty: 1 0RF Referrals / Follow Up: Wayne Leahy Chi, MD [Primary Care Provider] - Disposition Disposition (needs filled in before D/C Order can be placed): Residential Facility (5) Dementia Qualifiers: Dementia type: vascular dementia
--- NOTE | 2023-03-16 12:00 | CASEMGMT ---
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 Patient's HCPOA is her daughter Austen. Patient does not have a Healthcare Living Will. Deanne LEMUS
--- NOTE | 2023-03-16 13:41 | CASEMGMT ---
Discharge Planning Discharge orders, signed med list, and transport time sent to [facility] via [facility]. [facility] will transport patient by cot at 2:30p. Nursing and SW updated. Nina Trejo, Discharge Planning Asst.
--- NOTE | 2023-03-16 14:03 | PCM.DC.SUM ---
Providers Date of Admission: 03/15/23 Primary Care Physician: Dr. Wayne Leahy MD Consultations 03/15/23 13:35 Consult: Nephrology Routine Consulting Provider: Kianna Patrick Reason for Consult: Dialysis EMERGENT Consult: No MD Notified: Yes Date Notified: 03/15/23 Time Notified: 12:32 Method of Notification: Answering Service Reason For Visit: CVA R/O Diagnosis Discharge Diagnosis (1) ESRD on hemodialysis: Status: Acute Code(s): N18.6 - End stage renal disease; Z99.2 - Dependence on renal dialysis (2) Confusion: Status: Acute Code(s): R41.0 - Disorientation, unspecified (3) Left-sided weakness: Status: Acute Code(s): R53.1 - Weakness (4) [facility] resident: Status: Acute Code(s): Z59.3 - Problems related to living in residential institution (5) Dementia: Status: Acute Code(s): F03.90 - Unspecified dementia, unspecified severity, without behavioral disturbance, psychotic disturbance, mood disturbance, and anxiety Qualifiers: Dementia type: vascular dementia Plan 1. CVA rule out ? We will obtain an MRI ? Will not obtain a echo as this was recently done 2 months ago, CTA of the head and neck is unremarkable on this admission ? She has had a previous EEG which was negative for seizure, and she has had work-ups in the past that were unremarkable ? As she is already on aspirin and Plavix, the only change that I can make is to increase her Lipitor ? She did have a loop recorder in June 2019 so unlikely to have A-fib 2. HTN/HLD/chronic diastolic CHF ? Recent echo with an EF of 65% and stage II diastolic dysfunction ? Can resume her home blood pressure medications tomorrow as I will be a 24-hour window progressive hypertension ? Blood pressures are currently stable ? We will continue to monitor and make adjustments as necessary ? Continue with aspirin and Plavix 3. ESRD on Dialysis/Anemia of chronic disease ? Consult nephrology for dialysis 4. Hypothyroidism ? Stable ? Continue with Synthroid DVT: Ambulation 75 minutes was spent on direct patient care, including documentation as well as chart review and collaboration with colleagues Medications at Discharge Home Medications timolol maleate 0.5 % eye drops 1 drp EACH EYE BID GLAUCOMA 11/26/15 calcium acetate(phosphat bind) 667 mg capsule 1,334 mg PO TIDCM RENAL DIALYSIS 07/14/19 levothyroxine 100 mcg tablet 100 mcg PO DAILY thyroid 07/31/19 isosorbide mononitrate 60 mg tablet,extended release 24 hr 60 mg PO SUMOWEFR HTN 10/26/19 nifedipine 60 mg tablet,extended release 60 mg PO DAILY BLOOD PRESSURE 05/12/21 albuterol sulfate 90 mcg/actuation aerosol inhaler 2 inh inhalation Q4H PRN Shortness Of Breath 07/17/22 aspirin 81 mg tablet,delayed release 81 mg PO DAILY HEART HEALTH 07/17/22 budesonide-formoterol HFA 160 mcg-4.5 mcg/actuation aerosol inhaler 1 inh inhalation QHS SHORTNESS OF BREATH 07/17/22 dextran 70-hypromellose 0.1 %-0.3 % eye drops 1 drp ophthalmic (eye) QHS 07/17/22 hydrocortisone probutate 0.1 % topical cream (Pandel) 1 applic topical Q12H PRN RASH/ITCHING 07/17/22 vitamin B complex and vitamin C no.20-folic acid 1 mg capsule 1 cap PO DAILY 07/17/22 albuterol sulfate 2.5 mg/3 mL (0.083 %) solution for nebulization 2.5 mg continuous nebulization Q4H PRN SOB/Wheezing 12/05/22 clopidogrel 75 mg tablet 75 mg PO DAILY #30 tabs 12/06/22 quetiapine 25 mg tablet 25 mg PO QHS MOOD 03/15/23 atorvastatin 20 mg tablet 40 mg (2 x 20 mg) PO DAILY CHOLESTEROL #1 TAB 03/16/23 Hospital Course Operations None Procedures None Summary of Care Provided Minutes Spent on Discharge: 35 Hospital Course: Per HPI: LOUISE ZAVALA, is a 88 F who presents from group home with signs and symptoms consistent with a stroke. She was at dialysis when she developed left-sided weakness and confusion. Does appear that the confusion is resolved as is the left-sided weakness. Stroke alert was called and [facility] neurology recommended inpatient observation with further stroke work-up. She has had significant work-ups in the past with negative MRIs and she had a recent echo in November that demonstrated an EF of 65% with stage II diastolic dysfunction. She is completely asymptomatic and is alert and oriented person and place. No tPA was given. Hospital Course: 1. CVA rule out?88-year-old female with previous history of stroke and multiple episodes of's CVA rule out presented to the hospital with similar strokelike symptoms with slurred speech. On arrival to the ER her symptoms had completely resolved and neurology recommended continued work-up. No echo was repeated as this was done in November and remained unchanged with an EF of 65% and stage II diastolic dysfunction. She is also had a fairly extensive work-up on previous admissions, she had a loop recorder that was negative for any A-fib a few years ago and she had also been worked up for seizures with an EEG which was also normal. MRI during this admission was unremarkable. I had a 20-minute conversation with the daughter on advance care planning in terms of her dementia and dialysis in the setting of these repeated strokelike episodes. We will continue with her aspirin and Plavix and will increase her Lipitor from 20 mg daily to 40 mg daily. I discussed with the family about discharge plans and they expressed understanding of the risk benefits of going to the group home and would like for her to be discharged today if possible. 2. End-stage renal disease on dialysis, anemia of chronic disease, hypothyroidism, hypertension, hyperlipidemia, chronic diastolic CHF are all chronic medical conditions which complicate her care. Her home medications were continued where appropriate, the only change was increasing her Lipitor from 20 mg to 40 mg p.o. daily Physical Exam Narrative General: Alert, Oriented x2, Cooperative, No apparent distress HEENT: Atraumatic, PERRLA, EOMI, Normocephalic Oral: Moist Mucosa Neck: Supple, No JVD Lungs: Diminished, Normal air movement, No rhonchi, No wheeze, No rales Cardiovascular: Regular rate, Regular Rhythm, Normal S1, Normal S2, No murmurs Abdomen: Soft, Non Tender, Non-Distended, No Hepato-splenomegaly Extremities: No edema, Capillary Refill Less than 3 Seconds Skin: No rashes, No breakdown Musculoskeletal: No Tenderness to Palpation of Joints or Extremities Neurological: Cranial nerves II-XII grossly intact, Motor Exam 5/5 strength throughout, Sensory exam intact to light touch and pain Psych/Mental Status: Normal Affect, Appropriate Weight / BMI Weight Weight: 155 lb 13.869 oz Body Mass Index (BMI) 27.6 ABG / Lab / Microbiology Data 03/16/23 05:12 03/16/23 05:12 Laboratory: Laboratory Results - last 24 hr 03/16/23 05:12: WBC 5.7, RBC 3.44 L, Hgb 10.0 L, Hct 31.7 L, MCV 92.2, MCH 29.1, MCHC 31.5 L, RDW Std Deviation 48.5 H, RDW Coeff of Lizett 14.5, Plt Count 140 L, MPV 11.8, Immature Gran % (Auto) 0.300, Neut % (Auto) 56.7, Lymph % (Auto) 28.6, [place] % (Auto) 9.9, Eos % (Auto) 3.5, Baso % (Auto) 1.0, Absolute Neuts (auto) 3.3, Absolute Lymphs (auto) 1.64, Nucleated RBC % 0, Sodium 139, Potassium 5.1, Chloride 104, Carbon Dioxide 29.0, Anion Gap 6, BUN 53 H, Creatinine 7.71 H*, Estim Creat Clear Calc 4.25, Est GFR (MDRD) Af Amer 6 L, Est GFR (MDRD) Non-Af 5 L, BUN/Creatinine Ratio 6.9 L, Glucose 85, Calcium 8.1 L, Triglycerides 33, Cholesterol 101, LDL Cholesterol 34, VLDL Cholesterol 7, HDL Cholesterol 60 Radiography Diagnostic Testing: Radiology Impression Brain MRI 03/15/23 11:39 IMPRESSION: Involutional changes of the brain, as described above. Electronically Signed: Bulmaro Garner MD at 19:18 EDT Reading Location ID and State: [address] [place] [address] , Service support , Meaningful Use Info Meaningful Use Diagnoses (Choose all that apply): None applicable Discharge Plan Admission Admit Date/Time: 03/15/23 12:24 Attending Provider: Micha Feliciano Primary Care Provider: Wayne Leahy Chi Consulting Providers: Kianna Patrick Discharge Orders/Prescriptions Prescriptions: Continued levothyroxine 100 mcg tablet 100 mcg PO DAILY nifedipine 60 mg tablet extended release 60 mg PO DAILY timolol maleate 1 DROP drops 1 drp EACH EYE BID calcium acetate(phosphat bind) 667 MG capsule 1,334 mg PO TIDCM isosorbide mononitrate 60 MG tablet 60 mg PO SUMOWEFR Pandel 0.1 % Cream 1 applic TOPICAL Q12H PRN (Reason: RASH/ITCHING) Patient Comments: PRN PER MAR B complex with C 20-folic acid 1 mg Capsule 1 cap PO DAILY albuterol sulfate 90 mcg/actuation HFA aerosol inhaler 2 inh INHALATION Q4H PRN (Reason: Shortness Of Breath) Patient Comments: PRN PER MAR budesonide-formoterol 160-4.5 mcg/actuation Hfa Aerosol Inhaler 1 inh INHALATION QHS dextran 70-hypromellose 0.1-0.3 % Drops 1 drp ophthalmic (eye) QHS aspirin 81 MG tablet,delayed release (DR/EC) 81 mg PO DAILY albuterol sulfate 2.5 mg /3 mL (0.083 %) solution for nebulization 2.5 mg continuous nebulization Q4H PRN (Reason: SOB/Wheezing) Patient Comments: PRN PER MAR clopidogrel 75 mg Tablet 75 mg PO DAILY Qty: 30 5RF quetiapine 25 mg tablet 25 mg PO QHS Changed atorvastatin 20 mg Tablet 40 mg PO DAILY Qty: 1 0RF Referrals / Follow Up: Wayne Leahy Chi, MD [Primary Care Provider] - Disposition Disposition (needs filled in before D/C Order can be placed): [facility] Facility Charges/Coding Visit Charges Inpatient E&M: 30705 Disch Hosp >30min
[2023-03-16 14:45] VITALS: BP 143/54; PULSE 82; RESP 16; TEMP 36.6; O2SAT 98
== END 2023-03-16 14:47 | disposition skilled nursing facility (03) ==
LOC: ED 12:19 → ICU 12:53 → PCU 03-16 08:53 → ICU 03-16 15:48 → PCU 03-16 15:48
PROVIDERS: Admitting Provider Family Medicine; Emergency Provider Emergency Medicine; PCP Family Medicine Geriatric Medicine; Visit Provider Family Medicine
DX: R29.818 Other symptoms and signs involving the nervous system (principal); I13.2 Hypertensive heart and chronic kidney disease with heart failure and with stage 5 chronic kidney disease, or end stage renal disease; Z99.2 Dependence on renal dialysis; F01.50 Vascular dementia, unspecified severity, without behavioral disturbance, psychotic disturbance, mood disturbance, and anxiety; I50.32 Chronic diastolic (congestive) heart failure; N18.6 End stage renal disease; D63.1 Anemia in chronic kidney disease; E03.9 Hypothyroidism, unspecified; R53.1 Weakness; Z79.82 Long term (current) use of aspirin; E78.5 Hyperlipidemia, unspecified; R29.810 Facial weakness; Z79.899 Other long term (current) drug therapy; J45.909 Unspecified asthma, uncomplicated; Z79.890 Hormone replacement therapy; Z79.02 Long term (current) use of antithrombotics/antiplatelets; R29.704 NIHSS score 4; R47.81 Slurred speech
CPT/HCPCS: 36415; 70450; 70496; 70498; 70551; 71045; 80048; 80061; 84484; 85025; 85610; 85730; 92523; 93005; 94640; 97162; 97166; 97802; 99221; 99285; Q9967; A4216; G0378

== ENCOUNTER → 2023-05-02 | Outpatient (CLI) | payer MEDICARE, MEDICAID, SELFPAY ==
[2023-05-02 12:28] LABS: Vitamin B12 883 pg/mL (211-911)
[2023-05-06 01:06] LABS: Free Kappa Light Chains 188.6 mg/L (3.3-19.4); Free Lambda Light Chains 105.1 mg/L (5.7-26.3); Vitamin B1, Thiamine 89.6 nmol/L (66.5-200.0)
== END | disposition home or self-care (01) ==
LOC: MTLAB 10:16
PROVIDERS: PCP Family Medicine; Referring Provider Psychiatry & Neurology Neurology; Visit Provider Psychiatry & Neurology Neurology
DX: F03.90 Unspecified dementia, unspecified severity, without behavioral disturbance, psychotic disturbance, mood disturbance, and anxiety (principal); G62.9 Polyneuropathy, unspecified
CPT/HCPCS: 36415; 82607; 82746; 83883; 84425

== ENCOUNTER 2023-06-13 14:54 | Emergency (ER) | payer MEDICARE, MEDICAID, SELFPAY ==
[2023-06-13 14:57] VITALS: BP 158/81; PULSE 79; RESP 18; TEMP 36.9; O2SAT 97; BMI 26.2
--- NOTE | 2023-06-13 15:06 | RAD_ITS ---
STUDY: X-RAY - LEFT FOOT CLINICAL: Female, 88 years old. Foot pain following a fall. TECHNIQUE: 3 view(s) of the foot. COMPARISON: None. FINDINGS: Normal talus, calcaneus, and tarsal bones. Normal visualized subtalar, talonavicular, calcaneocuboid, tarsal and tarsometatarsal articulations. Normal metatarsi. There is degenerative arthrosis of the metatarsophalangeal joint of the hallux . Normal tibial and fibular sesamoid bones. There is evidence of a screw fixation of the distal first metatarsal. Normal phalanges of the great toe. Normal second through fifth metatarsophalangeal joints. Normal interphalangeal joints and phalanges of the lesser toes. The soft tissue structures are unremarkable. RAD/Foot min 3 Views IMPRESSION: Degenerative changes at the first metatarsophalangeal joint and prior screw fixation of the distal portion of the first metatarsal. No acute fracture is seen. Electronically Signed: Perfecto Brice MD at 15:39 EST ,
--- NOTE | 2023-06-13 15:17 | EDS_ITS ---
HPI History of Present Illness Chief Complaint: Fall Detail of Chief Complaint: Left arm and left foot Informant: patient Onset/Context/Timing Onset: Hours Mechanism/Context: Blunt Injury and Fall Location of pain/injuries: Left arm and Left foot Quality of Pain: Dull Current Severity: Mild Maximum Severity: Moderate Worsened by: Palpation Relieved by: Rest Associated Symptoms Associated Symptoms: Negative for Parasthesias, Weakness, Loss of function or Loss of consciousness Narrative Narrative: Patient is a 88-year-old woman who presents after fall. She states she landed her left side. She denies hitting her head. She is not on anticoagulants. She is on Plavix. She denies headache. She denies change in vision, blurred vision, loss of vision or double vision. She denies ringing or ears decreased hearing. She denies neck pain. She denies chest pain or shortness of breath. She denies low back pain. She reported hip pain to EMS and nurse. Patient does have history of confusion. Prior similar symptoms: No Recent Illness/Hospitalization: No PFSH PFSH Medical History Acute respiratory failure with hypoxia Anemia Anemia Asthma Cerebellar infarct Chronic diastolic (congestive) heart failure Chronic kidney disease (CKD) stage G5/A1, glomerular filtration rate (GFR) less than or equal to 15 mL/min/1.73 square meter and albuminuria creatinine ratio less than 30 mg/g Chronic renal failure, stage 5 Cough Dementia Elevated troponin I level End-stage renal disease (ESRD) ESRD (end stage renal disease) on dialysis Essential hypertension Glaucoma History of CVA (cerebrovascular accident) (12/15/19) Hyperlipidemia Hypertension Iron deficiency anemia Iron deficiency anemia Metabolic acidosis Obesity (BMI 30.0-34.9) Problem with dialysis access Problem with dialysis access RENAL FAILURE STAGE 6 Respiratory failure with hypoxia Shortness of breath Speech apraxia TIA (transient ischemic attack) Home Medications timolol maleate 0.5 % eye drops 1 drp EACH EYE BID GLAUCOMA 11/26/15 [History Last Taken 03/15/23] calcium acetate(phosphat bind) 667 mg capsule 1,334 mg PO TIDCM RENAL DIALYSIS 07/14/19 [History Last Taken 03/15/23] levothyroxine 100 mcg tablet 100 mcg PO DAILY thyroid 07/31/19 [History Last Taken 03/15/23] isosorbide mononitrate 60 mg tablet,extended release 24 hr 60 mg PO SUMOWEFR HTN 10/26/19 [History Last Taken 03/14/23] nifedipine 60 mg tablet,extended release 60 mg PO DAILY BLOOD PRESSURE 05/12/21 [History Last Taken 03/15/23] albuterol sulfate 90 mcg/actuation aerosol inhaler 2 inh inhalation Q4H PRN Shortness Of Breath 07/17/22 [History Last Taken Unknown] aspirin 81 mg tablet,delayed release 81 mg PO DAILY HEART HEALTH 07/17/22 [History Last Taken 03/15/23] budesonide-formoterol HFA 160 mcg-4.5 mcg/actuation aerosol inhaler 1 inh inhalation QHS SHORTNESS OF BREATH 07/17/22 [History Last Taken 03/14/23] dextran 70-hypromellose 0.1 %-0.3 % eye drops 1 drp ophthalmic (eye) QHS 07/17/22 [History Last Taken 03/14/23] hydrocortisone probutate 0.1 % topical cream (Pandel) 1 applic topical Q12H PRN RASH/ITCHING 07/17/22 [History Last Taken Unknown] vitamin B complex and vitamin C no.20-folic acid 1 mg capsule 1 cap PO DAILY 07/17/22 [History Last Taken 03/15/23] albuterol sulfate 2.5 mg/3 mL (0.083 %) solution for nebulization 2.5 mg continuous nebulization Q4H PRN SOB/Wheezing 12/05/22 [History Last Taken Unknown] clopidogrel 75 mg tablet 75 mg PO DAILY #30 tabs 12/06/22 [Rx Last Taken 03/15/23] atorvastatin 20 mg tablet 40 mg (2 x 20 mg) PO DAILY CHOLESTEROL #1 TAB 03/16/23 [Rx Last Taken 03/14/23] Allergy/AdvReac Type Severity Reaction Status Date / Time erythromycin base Allergy Rash Verified 06/13/23 15:01 lisinopril Allergy Unknown Verified 06/13/23 15:01 NSAIDS (Non-Steroidal Allergy Other Verified 06/13/23 15:01 Anti-Inflamma Salicylates Allergy Other Verified 06/13/23 15:01 Family History Mother Colon cancer Hypertension Father Hypertension Surgical History History of loop recorder (07/20/19) Hx of cataract extraction Hx of foot surgery Hx of hysterectomy Hx of thyroidectomy s/p left AV fistula creation (02/19/19) Social History Smoking Status: Never smoker alcohol intake: never substance use type: does not use caffeine: Yes what type of physical activity do you participate in: none frequency: does not exercise ROS ROS ED Eyes Eyes: Denies blurry vision, change in vision or other ENT ENT ED: Denies rhinorrhea or sore throat Cardiovascular Cardiovascular: Denies chest pain or palpitations Respiratory/Chest Respiratory/Chest: Denies cough or dyspnea Gastrointestinal Gastrointestinal: Denies abdominal pain, nausea or vomiting Genitourinary Genitourinary ED: Denies dysuria, hematuria or urinary frequency Musculoskeletal Musculoskeletal: Reports other Details: Left arm and left foot pain. ; Denies arthralgias, back pain, myalgias or neck pain Integumentary Denies rash Neurologic Neurologic: Denies headache(s) or paresthesias EXAM Physical Exam Const Vital Signs: 06/13/23 14:57 06/13/23 15:02 Temperature 98.4 F Temperature Source Temporal Pulse Rate 79 Respiratory Rate 18 Respiratory Effort Normal Non-Labored Respiratory Depth Normal Respiratory Pattern Normal Blood Pressure 158/81 H Blood Pressure Mean 106 Pulse Ox 97 Oxygen Delivery Method Room Air Positive well nourished and well developed General Appearance ED: well developed and NAD HEENT HEENT Narrative: Ears are normal. TMs are normal. Posterior pharynx out erythema exudate. Uvula is midline. atraumatic; Negative for tenderness Nose: Negative for septum abnormal Eyes PERRL and EOMs intact bilaterally General Eye ED: Yes other Other Details: There is no nystagmus. There is no subconjunctival hemorrhage. Neck General: Negative for tenderness Chest Wall inspection of chest normal and palpation of chest normal Resp normal respiratory effort and clear to auscultation bilaterally Cardio regular rhythm, S1 normal heart sound, S2 normal heart sound and no murmurs GI normal to inspection, nondistended, normoactive bowel sounds, non-tender, non- distended and no masses Back/Spine normal to inspection Back/Spine Narrative: There is no pain the patient the pelvis. Thoracic Spine / Upper Back: Negative for thoracic spinal tenderness Extremity normal to inspection; Negative for full ROM Extremity Narrative: Limited range of motion of left upper extremity due to pain. There is pain palpation of the left humerus. There is no pain ovation of the clavicle, AC joint or proximal humerus. There is no pain the patient over the lateral medial epicondyles or radial head with supination pronation. There is no pain ovation over the olecranon process. There is no pain the patient over the distal radius ulna, carpal bones or metacarpal bones. Axillary, median, radial and ulnar function intact. Patient has a fistula left arm. There is a thrill noted. There is no shortening of the left lower extremity. There is no pain with logrolling in the hip or knee. There is no pain the patient of the pelvis i.e. iliac wing, pubic symphysis or ischial tuberosity. There is no pain ovation over the greater trochanteric region. There is no pain the patient over the patella or joint line. Patient is able to lift her leg up against gravity. There is no pain the patient over the lateral or medial malleolus. There is no pain ovation over the base of the fifth metatarsal. Neuro CN's II-XII intact bilaterally, moves all extremities, no focal motor deficits and no sensory deficits noted [place] Coma Scale: document GCS findings Spontaneous Obeys Commands Oriented 15 Plantar Reflex: Downgoing: bilateral Psych mental status grossly normal and thought process normal Skin no rashes or lesions noted, no wounds and no jaundice MDM MDM MDM Narrative Medical decision making narrative: Patient was offered pain medicine, which she declined. Patient has pain palpation of the left foot and there is swelling of the left foot. There is no pain ovation over the lateral medial malleolus. For this reason x-ray of the foot was obtained. X-ray of the left arm was obtained since she has pain palpation of the humerus. I was informed at 1521 that the patient's daughter is recording conversations. Furthermore daughter states we should have known that she needed pain medicine. Radiography Chest X-Ray - ED: 2 View (2 view x-ray of the foot reveals degenerative changes of the MTP joint. There is a screw noted. There is no other abnormality noted. There is no soft tissue swelling. There is no calcification of the vessels. This independent reviewed interpreted by me at 1538.) and Read by ED Physician (2 view x-ray of the left humerus reveals multiple surgical clips. There is evidence of a fistula. There is no acute bony abnormality. There is no a nterior posterior fat pad noted. There is no widening of the humeral glenoid joint. This was independent reviewed interpreted by me at 1539.) Diagnostic Testing: Clinical Impression(s) from Imaging Studies Foot X-Ray 06/13/23 15:06 IMPRESSION: Degenerative changes at the first metatarsophalangeal joint and prior screw fixation of the distal portion of the first metatarsal. No acute fracture is seen. Electronically Signed: Perfecto Brice MD at 15:39 EST , Humerus X-Ray 06/13/23 15:20 IMPRESSION: No acute abnormality is seen. Electronically Signed: Perfecto Brice MD at 15:45 EST , Treatment and Re-Evaluation Narrative: Patient and daughter were informed of results at 1545. Plan is discharge to home. Discharge Plan Triage Chief Complaint: Fall ED Provider: Jose Thapa Dx/Rx/DC Orders Clinical Impression: Contusion of left forearm, initial encounter, Hyperlipidemia, ESRD on hemodialysis, Contusion of left foot, initial encounter, Injury due to fall, Arteriovenous fistula of left upper extremity Instructions: ED Contusion, Lower Extremity, ED Contusion, Upper Extremity Prescriptions: No Action levothyroxine 100 mcg tablet 100 mcg PO DAILY nifedipine 60 mg tablet extended release 60 mg PO DAILY timolol maleate 1 DROP drops 1 drp EACH EYE BID calcium acetate(phosphat bind) 667 MG capsule 1,334 mg PO TIDCM isosorbide mononitrate 60 MG tablet 60 mg PO SUMOWEFR Pandel 0.1 % Cream 1 applic TOPICAL Q12H PRN (Reason: RASH/ITCHING) Patient Comments: PRN PER MAR B complex with C 20-folic acid 1 mg Capsule 1 cap PO DAILY albuterol sulfate 90 mcg/actuation HFA aerosol inhaler 2 inh INHALATION Q4H PRN (Reason: Shortness Of Breath) Patient Comments: PRN PER MAR budesonide-formoterol 160-4.5 mcg/actuation Hfa Aerosol Inhaler 1 inh INHALATION QHS dextran 70-hypromellose 0.1-0.3 % Drops 1 drp ophthalmic (eye) QHS aspirin 81 MG tablet,delayed release (DR/EC) 81 mg PO DAILY albuterol sulfate 2.5 mg /3 mL (0.083 %) solution for nebulization 2.5 mg continuous nebulization Q4H PRN (Reason: SOB/Wheezing) Patient Comments: PRN PER MAR clopidogrel 75 mg Tablet 75 mg PO DAILY Qty: 30 5RF atorvastatin 20 mg Tablet 40 mg PO DAILY Qty: 1 0RF Primary Care Provider: Kishan Camejo Referrals: Kishan Camejo MD [Primary Care Provider] - 1 Week if not improving Activity Restrictions/Additional Instructions: 1. Apply ice to your left arm and foot 6-10 times a day for 20 to 30 minutes per application. 2. You may feel worse over the next 24 to 48 hours. 3. You may hurt for several days up to a week. 4. Take Tylenol for your pain Disposition Disposition: Home, Self Care
--- NOTE | 2023-06-13 15:20 | RAD_ITS ---
STUDY: X-RAY - LEFT HUMERUS REASON FOR EXAM: Female, 88 years old. Pain following a fall. TECHNIQUE: 3 view(s) of the humerus. COMPARISON: None. FINDINGS: Normal visualized humerus. There is no demonstrated fracture or osseous destructive process. Surgical clips are seen along the medial aspect of the left thumb suggestive of a prior vascular surgery. RAD/Humerus min 2 Views IMPRESSION: No acute abnormality is seen. Electronically Signed: Perfecto Brice MD at 15:45 EST ,
--- NOTE | 2023-06-13 15:23 | ED.RN ---
PT REQUESTING PAIN MEDICATION. NO NEW ORDERS AT THIS TIME
[2023-06-13] MEDS: HYDROcodone Bitartrate/Apap 5/325 Tablet PO (15:30)
--- OUTSIDE RECORDS SUMMARY | 2023-06-13 16:00 | XMS RPT_ITS | CCD ---
Author Name Unknown Address [address] [place] [address] Organization [facility] Care Team Providers Care Senior Industrial Engineer Name Role Phone PROVIDER, UNKNOWN Admitting Unavailable PROVIDER, UNKNOWN Attending Unavailable Encounters Encounter Date Encounter Type Care Provider Facility Start: 12-15-2019 End: 12-15-2019 Patient encounter procedure UNKNOWN PROVIDER Facility:[facility] Payers Date Payer Category Payer Unknown [id number] 1935 Unknown [id number] Summary Purpose Family History No Family History Records Found Advance Directives No Advanced Directives Records Found Additional Source Comments INFORMATION SOURCE (unrecogn ized section and content) FOR RECORDS PERTAINING TO PATIENTS WHO ARE OR HAVE BEEN ENROLLED IN A CHEMICAL DEPENDENCY/SUBSTANCEABUSE PROGRAM, SOME INFORMATION MAY BE OMITTED. This clinical summary was aggregated from multiple sources. Caution should be exercised in using it in the provision of clinical care. This summary normalizes information from multiple sources, and as a consequence, information in this document may materially change the coding, format and clinical context of patient data. In addition, data may be omitted in some cases. CLINICAL DECISIONS SHOULD BE BASED ON THE PRIMARY CLINICAL RECORDS. [facility]. provides no warranty or guarantee of the accuracy or completeness of information in this document.
[2023-06-13 16:40] VITALS: BP 128/74; PULSE 71; RESP 14; O2SAT 97
--- NOTE | 2023-06-13 16:41 | ED.RN ---
REPORT CALLED TO ALEX AT THE AVENUE, ALL QUESTIONS ANSWERED.
== END 2023-06-13 16:42 | disposition home or self-care (01) ==
PROVIDERS: Emergency Provider Emergency Medicine; PCP Family Medicine; Visit Provider Emergency Medicine
DX: S50.12XA Contusion of left forearm, initial encounter (principal); I13.2 Hypertensive heart and chronic kidney disease with heart failure and with stage 5 chronic kidney disease, or end stage renal disease; Z99.2 Dependence on renal dialysis; I50.32 Chronic diastolic (congestive) heart failure; N18.6 End stage renal disease; S90.32XA Contusion of left foot, initial encounter; W19.XXXA Unspecified fall, initial encounter; E78.5 Hyperlipidemia, unspecified; Z79.02 Long term (current) use of antithrombotics/antiplatelets; Z79.899 Other long term (current) drug therapy
CPT/HCPCS: 73060; 73630; 99282

== ENCOUNTER 2023-08-03 14:17 | Emergency (ER) | payer MEDICARE, MEDICAID, SELFPAY ==
[2023-08-03 14:18] VITALS: BP 166/82; PULSE 80; RESP 18; TEMP 36.4; O2SAT 98; BMI 25.5
--- NOTE | 2023-08-03 14:25 | CT_ITS ---
STUDY: CT BRAIN WITHOUT CONTRAST REASON FOR EXAM: Female, 88 years old. Head injury on anticoagulation RADIATION DOSAGE (If Supplied By Facility): CTDIvol = ( 44.99 ) mGy, DLP = ( 796.11 ) mGycm TECHNIQUE: Transaxial CT imaging of the brain was performed without administration of intravenous contrast material. Individualized dose optimization techniques were used for this CT. COMPARISON: Comparison is made with prior study March 15, 2023. FINDINGS: Normal soft tissue structures. Normal calvarium. There is moderate cerebral atrophy with widening of the extra-axial spaces and ventricular dilatation. There are areas of decreased attenuation within the white matter tracts of the supratentorial brain, consistent with microvascular disease changes. Stable focal encephalomalacia in the posterior medial aspect of the right occipital lobe suggestive of old infarct. Normal basal ganglia and thalami. Normal brainstem. Normal cerebellum. There is no intracranial hemorrhage. There are no findings of an acute ischemic infarction. Normal visualized paranasal sinuses. CT/Brain/Head without Contrast IMPRESSION: Normal unenhanced CT scan of the brain. Electronically Signed: Perfecto Brice MD at 14:46 EDT ,
--- NOTE | 2023-08-03 14:25 | EX.ED.GENINJ ---
HPI History of Present Illness Chief Complaint: Head Injury Narrative Narrative: 88-year-old female past medical history of stroke, on Plavix and aspirin presents via EMS from the [facility] with head injury. Her daughter is at the bedside and it was reported that she was standing, trying to get something on her walker, when she fell. She hit the back of her head against the wall. There is no reported loss of consciousness. Patient states that she has scalp tenderness and mild headache. She denies other injury, no neck pain, no other symptoms. [facility] Medical History Acute respiratory failure with hypoxia Anemia Anemia Asthma Cerebellar infarct Chronic diastolic (congestive) heart failure Chronic kidney disease (CKD) stage G5/A1, glomerular filtration rate (GFR) less than or equal to 15 mL/min/1.73 square meter and albuminuria creatinine ratio less than 30 mg/g Chronic renal failure, stage 5 Cough Dementia Elevated troponin I level End-stage renal disease (ESRD) ESRD (end stage renal disease) on dialysis Essential hypertension Glaucoma History of CVA (cerebrovascular accident) (12/15/19) Hyperlipidemia Hypertension Iron deficiency anemia Iron deficiency anemia Metabolic acidosis Obesity (BMI 30.0-34.9) Problem with dialysis access Problem with dialysis access RENAL FAILURE STAGE 6 Respiratory failure with hypoxia Shortness of breath Speech apraxia TIA (transient ischemic attack) Home Medications timolol maleate 0.5 % eye drops 1 drp EACH EYE BID GLAUCOMA 11/26/15 [History Last Taken 03/15/23] calcium acetate(phosphat bind) 667 mg capsule 1,334 mg PO TIDCM RENAL DIALYSIS 07/14/19 [History Last Taken 03/15/23] levothyroxine 100 mcg tablet 100 mcg PO DAILY thyroid 07/31/19 [History Last Taken 03/15/23] isosorbide mononitrate 60 mg tablet,extended release 24 hr 60 mg PO SUMOWEFR HTN 10/26/19 [History Last Taken 03/14/23] nifedipine 60 mg tablet,extended release 60 mg PO DAILY BLOOD PRESSURE 05/12/21 [History Last Taken 03/15/23] albuterol sulfate 90 mcg/actuation aerosol inhaler 2 inh inhalation Q4H PRN Shortness Of Breath 07/17/22 [History Last Taken Unknown] aspirin 81 mg tablet,delayed release 81 mg PO DAILY HEART HEALTH 07/17/22 [History Last Taken 03/15/23] budesonide-formoterol HFA 160 mcg-4.5 mcg/actuation aerosol inhaler 1 inh inhalation QHS SHORTNESS OF BREATH 07/17/22 [History Last Taken 03/14/23] dextran 70-hypromellose 0.1 %-0.3 % eye drops 1 drp ophthalmic (eye) QHS 07/17/22 [History Last Taken 03/14/23] hydrocortisone probutate 0.1 % topical cream (Pandel) 1 applic topical Q12H PRN RASH/ITCHING 07/17/22 [History Last Taken Unknown] vitamin B complex and vitamin C no.20-folic acid 1 mg capsule 1 cap PO DAILY 07/17/22 [History Last Taken 03/15/23] albuterol sulfate 2.5 mg/3 mL (0.083 %) solution for nebulization 2.5 mg continuous nebulization Q4H PRN SOB/Wheezing 12/05/22 [History Last Taken Unknown] clopidogrel 75 mg tablet 75 mg PO DAILY #30 tabs 12/06/22 [Rx Last Taken 03/15/23] atorvastatin 20 mg tablet 40 mg (2 x 20 mg) PO DAILY CHOLESTEROL #1 TAB 03/16/23 [Rx Last Taken 03/14/23] Allergy/AdvReac Type Severity Reaction Status Date / Time erythromycin base Allergy Rash Verified 08/03/23 14:18 lisinopril Allergy Unknown Verified 08/03/23 14:18 NSAIDS (Non-Steroidal Allergy Other Verified 08/03/23 14:18 Anti-Inflamma Salicylates Allergy Other Verified 08/03/23 14:18 Family History Mother Colon cancer Hypertension Father Hypertension Surgical History History of loop recorder (07/20/19) Hx of cataract extraction Hx of foot surgery Hx of hysterectomy Hx of thyroidectomy s/p left AV fistula creation (02/19/19) Social History Smoking Status: Never smoker alcohol intake: never substance use type: does not use caffeine: Yes what type of physical activity do you participate in: none frequency: does not exercise ROS ROS ED ROS Narrative Mildly limited secondary to age and dementia. Constitutional: No fever, no chills. HEENT: No sore throat. No neck pain. No loss of vision. No rhinorrhea. Cardiovascular: No chest pain. No palpitations. No pedal edema. Respiratory: No cough, no shortness of breath. Abdominal: No abdominal pain. No nausea. No vomiting. Genitourinary: No dysuria. No hematuria. Musculoskeletal: No myalgias. No arthralgias. Neurologic: Positive headaches. No dizziness. No lightheadedness. Skin: No rash. No change in color. Positive occipital scalp tenderness left greater than right. Psychiatric: No depression. No anxiety. EXAM Physical Exam Narrative Exam Narrative: Afebrile. Vital signs noted. GCS 15. ABCs intact. HEENT: Normocephalic. Mild tenderness to palpation left occipital scalp greater than right with small hematoma. PERRL, EOMI. Neck soft and supple. No point tenderness or step off. Cardiovascular: Regular rate and rhythm. No murmurs, rubs, or gallops appreciated. Respiratory: No tachypnea. Lungs clear to auscultation bilaterally. Gastrointestinal: Abdomen soft, nontender, with normoactive bowel sounds. No rebound or guarding. Neurological: Awake. Alert. At baseline. Nonfocal, nonlateralizing. Able to raise arms above head without difficulty. Skin: No rash. Normal color. No pallor. Musculoskeletal: No pedal edema. Full range of motion extremities. Const Vital Signs: 08/03/23 14:18 08/03/23 14:24 Temperature 97.6 F L Temperature Source Oral Pulse Rate 80 Respiratory Rate 18 Respiratory Effort Normal Non-Labored Respiratory Depth Normal Respiratory Pattern Normal Blood Pressure 166/82 H Blood Pressure Mean 110 Pulse Ox 98 Oxygen Delivery Method Room Air Room Air MDM MDM MDM Narrative Medical decision making narrative: In the differential diagnosis is closed head injury with scalp hematoma versus skull fracture and intracranial hemorrhage. In discussion with her daughter, CT of the brain will be obtained, but I do not feel CT imaging of the neck is indicated as she has no pain and is moving her head without pain or difficulty. There is higher concern for intracranial hemorrhage given that she is on anticoagulation. I do have lower concern for intracranial hemorrhage as it appears she has more of an occipital hemorrhage and she appears to be at her baseline neurologically without focal deficit. I do not feel that laboratory work is indicated. I reviewed the CT report of the CT of the brain, and there is no evidence of skull fracture or intracranial hemorrhage, there is evidence of an old infarct. At this point in time, patient was administered Tylenol 650 mg orally at her request. In discussion with her daughter, it was felt that she could be [facility]. I do not feel she requires observation or admission at this time. Return instructions to the emergency department were reviewed. Disposition is discharged in stable condition. History & Record Review Discussion w/independent historian: Patient and Family Additional record(s) reviewed:: Prior ED visit Radiography Diagnostic Testing: Clinical Impression(s) from Imaging Studies Brain CT 08/03/23 14:25 IMPRESSION: Normal unenhanced CT scan of the brain. Electronically Signed: Perfecto Brice MD at 14:46 EDT , Discharge Plan Triage Chief Complaint: Head Injury ED Provider: Jey Benitez Dx/Rx/DC Orders Clinical Impression: Head injury, acute, Fall Instructions: ED Scalp Contusion, ED Head Injury (Adult) Prescriptions: No Action levothyroxine 100 mcg tablet 100 mcg PO DAILY nifedipine 60 mg tablet extended release 60 mg PO DAILY timolol maleate 1 DROP drops 1 drp EACH EYE BID calcium acetate(phosphat bind) 667 MG capsule 1,334 mg PO TIDCM isosorbide mononitrate 60 MG tablet 60 mg PO SUMOWEFR Pandel 0.1 % Cream 1 applic TOPICAL Q12H PRN (Reason: RASH/ITCHING) Patient Comments: PRN PER MAR B complex with C 20-folic acid 1 mg Capsule 1 cap PO DAILY albuterol sulfate 90 mcg/actuation HFA aerosol inhaler 2 inh INHALATION Q4H PRN (Reason: Shortness Of Breath) Patient Comments: PRN PER MAR budesonide-formoterol 160-4.5 mcg/actuation Hfa Aerosol Inhaler 1 inh INHALATION QHS dextran 70-hypromellose 0.1-0.3 % Drops 1 drp ophthalmic (eye) QHS aspirin 81 MG tablet,delayed release (DR/EC) 81 mg PO DAILY albuterol sulfate 2.5 mg /3 mL (0.083 %) solution for nebulization 2.5 mg continuous nebulization Q4H PRN (Reason: SOB/Wheezing) Patient Comments: PRN PER MAR clopidogrel 75 mg Tablet 75 mg PO DAILY Qty: 30 5RF atorvastatin 20 mg Tablet 40 mg PO DAILY Qty: 1 0RF Primary Care Provider: Kishan Camejo Referrals: Kishan Camejo MD [Primary Care Provider] - As soon as possible Activity Restrictions/Additional Instructions: Resume previous medications and routines. Tylenol as needed for pain. Disposition Disposition: Group Home Facility Discharge Location: [facility]
[2023-08-03 14:30] VITALS: BP 161/83
[2023-08-03 15:00] VITALS: BP 154/76; O2SAT 98
--- NOTE | 2023-08-03 15:10 | RAD_ITS ---
STUDY: X-RAY - PELVIS AND LEFT HIP REASON FOR EXAM: Female, 88 years old. Trauma, pain TECHNIQUE: 3 views of the pelvis and hip. COMPARISON: None. FINDINGS: There is a non-specific bowel gas pattern. Normal visualized soft tissue structures. There is narrowing with cortical sclerosis and osteophyte formation of the sacroiliac joint consistent with degenerative osteoarthritic changes. Normal bilateral superior and inferior pubic rami. There are degenerative changes of the pubic symphysis with articular narrowing and sclerosis. Normal bilateral ischial tuberosities. I suspect a nondisplaced avulsion fracture of the greater trochanter. Normal acetabulum. Normal hip joint. RAD/HIP, UNI W/ Pelvis 2-3 Views IMPRESSION: I suspect a nondisplaced avulsion fracture of the greater trochanter. Electronically Signed: Perfecto Brice MD at 15:29 EDT ,
[2023-08-03] MEDS: Acetaminophen 325 MG Tablet 650 MG PO (15:11)
[2023-08-03 15:54] VITALS: BP 166/82; PULSE 80; RESP 18; TEMP 36.4; O2SAT 98
--- OUTSIDE RECORDS SUMMARY | 2023-08-03 22:06 | XMS RPT_ITS | CCD ---
Author Name Unknown Address [address] [place] [address] Organization [facility] Care Team Providers Care Pathology Secretary/Transcriptionist Name Role Phone PROVIDER, UNKNOWN Admitting Unavailable PROVIDER, UNKNOWN Attending Unavailable Encounters Encounter Date Encounter Type Care Provider Facility Start: 12-15-2019 End: 12-15-2019 Patient encounter procedure UNKNOWN PROVIDER Facility:[facility] Payers Date Payer Category Payer Unknown [id number] 1935 Unknown [id number] Summary Purpose Family History No Family History [...] BE BASED ON THE PRIMARY CLINICAL RECORDS. [facility]. provides no warranty or guarantee of the accuracy or completeness of information in this document.
== END 2023-08-03 16:08 | disposition skilled nursing facility (03) ==
PROVIDERS: Emergency Provider Emergency Medicine; PCP Family Medicine; Visit Provider Emergency Medicine
DX: S00.03XA Contusion of scalp, initial encounter (principal); I13.2 Hypertensive heart and chronic kidney disease with heart failure and with stage 5 chronic kidney disease, or end stage renal disease; F03.90 Unspecified dementia, unspecified severity, without behavioral disturbance, psychotic disturbance, mood disturbance, and anxiety; I50.32 Chronic diastolic (congestive) heart failure; E11.22 Type 2 diabetes mellitus with diabetic chronic kidney disease; N18.5 Chronic kidney disease, stage 5; W18.09XA Striking against other object with subsequent fall, initial encounter; J45.909 Unspecified asthma, uncomplicated; H40.9 Unspecified glaucoma; E78.5 Hyperlipidemia, unspecified; D50.9 Iron deficiency anemia, unspecified; E66.09 Other obesity due to excess calories; Z79.899 Other long term (current) drug therapy; Z79.82 Long term (current) use of aspirin; Z86.73 Personal history of transient ischemic attack (TIA), and cerebral infarction without residual deficits
CPT/HCPCS: 70450; 73502; 99282

== ENCOUNTER → 2024-03-12 | Outpatient (CLI) | payer MEDICARE, MEDICAID, SELFPAY ==
[2024-03-15 16:10] LABS: Albumin 3.6 g/dL (2.9-4.4); Alpha-1-Globulins 0.2 g/dL (0.0-0.4); Alpha-2-Globulins 0.6 g/dL (0.4-1.0); Gamma Globulin 1.2 g/dL (0.4-1.8); Immunofixation Urine Comment: (.); Immunoglobulin A 359 mg/dL (64-422); Immunoglobulin G 1112 mg/dL (586-1602); Immunoglobulin M 231 mg/dL (26-217); PROEL- TOTAL PROTEIN 6.4 g/dL (6.0-8.5)
== END | disposition home or self-care (01) ==
PROVIDERS: PCP Family Medicine; Referring Provider Psychiatry & Neurology Neurology; Visit Provider Psychiatry & Neurology Neurology
DX: G62.9 Polyneuropathy, unspecified (principal)
CPT/HCPCS: 36415; 82784; 84165; 86334; 86335

== ENCOUNTER 2024-04-24 13:00 | Emergency (ER) | payer MEDICARE, MEDICAID, SELFPAY ==
[2024-04-24 13:02] VITALS: BP 125/54; PULSE 67; RESP 18; TEMP 36.6; O2SAT 100; BMI 24.0
--- NOTE | 2024-04-24 13:52 | ED.RN ---
attempted to call nurse at [facility] to inform of pt's return but no answer
--- NOTE | 2024-04-24 14:10 | EDS_ITS ---
HPI History of Present Illness Chief Complaint: Wound Check Informant: patient, family and EMS Limited: dementia Narrative Narrative: Patient is an 89-year-old female with history of end-stage renal disease on hemodialysis presenting from dialysis for concern of bleeding from fistula. Patient has a fistula in her left upper arm. Family notes that she often has to wait about 30 minutes to get the bleeding to stop after dialysis. She had a full session of dialysis today but she continued to have bleeding and it took about an hour to get to stop. The bleeding had stopped by the time EMS arrived however dialysis still wanted her to be evaluated further in the emergency room. Patient has no complaints at this time, denies any lightheadedness or dizziness. She states she is hungry and ready for lunch. She is not on any blood thinners. No other complaints or concerns reported. Patient is a resident of the [facility]. She uses a walker at baseline. [facility] Medical History TIA (transient ischemic attack) Anemia Hypertension ESRD (end stage renal disease) on dialysis Problem with dialysis access Chronic diastolic (congestive) heart failure End-stage renal disease (ESRD) History of CVA (cerebrovascular accident) (12/15/19) Essential hypertension Problem with dialysis access Respiratory failure with hypoxia Iron deficiency anemia RENAL FAILURE STAGE 6 Chronic renal failure, stage 5 Dementia Elevated troponin I level Metabolic acidosis Acute respiratory failure with hypoxia Anemia Iron deficiency anemia Chronic kidney disease (CKD) stage G5/A1, glomerular filtration rate (GFR) less than or equal to 15 mL/min/1.73 square meter and albuminuria creatinine ratio less than 30 mg/g Cough Shortness of breath Cerebellar infarct Speech apraxia Asthma Glaucoma Obesity (BMI 30.0-34.9) Hyperlipidemia Home Medications ?Medication ?Instructions ?Recorded ?Last Taken ?Type timolol maleate 0.5 % eye drops 1 drp EACH EYE BID GLAUCOMA 11/26/15 03/15/23 History calcium acetate(phosphat bind) 667 1,334 mg PO TIDCM RENAL DIALYSIS 07/14/19 03/15/23 History mg capsule levothyroxine 100 mcg tablet 100 mcg PO DAILY thyroid 07/31/19 03/15/23 History isosorbide mononitrate 60 mg 60 mg PO SUMOWEFR HTN 10/26/19 03/14/23 History tablet,extended release 24 hr nifedipine 60 mg tablet,extended 60 mg PO DAILY BLOOD PRESSURE 05/12/21 03/15/23 History release albuterol sulfate 90 mcg/actuation 2 inh inhalation Q4H PRN Shortness 07/17/22 Unknown History aerosol inhaler Of Breath aspirin 81 mg tablet,delayed 81 mg PO DAILY HEART HEALTH 07/17/22 03/15/23 History release budesonide-formoterol HFA 160 1 inh inhalation QHS SHORTNESS OF 07/17/22 03/14/23 History mcg-4.5 mcg/actuation aerosol BREATH inhaler dextran 70-hypromellose 0.1 %-0.3 1 drp ophthalmic (eye) QHS 07/17/22 03/14/23 History % eye drops hydrocortisone probutate 0.1 % 1 applic topical Q12H PRN 07/17/22 Unknown History topical cream (Pandel) RASH/ITCHING albuterol sulfate 2.5 mg/3 mL 2.5 mg continuous nebulization Q4H 12/05/22 Unknown History (0.083 %) solution for nebulization PRN SOB/Wheezing clopidogrel 75 mg tablet 75 mg PO DAILY #30 tabs 12/06/22 03/15/23 Rx atorvastatin 20 mg tablet 40 mg (2 x 20 mg) PO DAILY 03/16/23 03/14/23 Rx CHOLESTEROL #1 TAB acetaminophen 500 mg capsule 500 mg PO Q6H PRN 08/29/23 Unknown History bisacodyl 10 mg rectal suppository 10 mg PA DAILY PRN 08/29/23 Unknown History donepezil 10 mg tablet 10 mg PO DAILY 08/29/23 Unknown History magnesium hydroxide 400 mg/5 mL 5 ml PO DAILY PRN 08/29/23 Unknown History oral suspension (Milk of Magnesia) mineral oil (Fleet Mineral Oil 118 ml PA DAILY PRN 09/12/23 Unknown History enema) memantine 5 mg tablet 5 mg PO BID 03/12/24 Unknown History Allergy/AdvReac Type Severity Reaction Status Date / Time erythromycin base Allergy Rash Verified 04/24/24 13:02 lisinopril Allergy Unknown Verified 04/24/24 13:02 NSAIDS (Non-Steroidal Allergy Other Verified 04/24/24 13:02 Anti-Inflamma Salicylates Allergy Other Verified 04/24/24 13:02 Family History Mother Colon cancer Hypertension Father Hypertension Surgical History History of loop recorder (07/20/19) s/p left AV fistula creation (02/19/19) Hx of foot surgery Hx of thyroidectomy Hx of cataract extraction Hx of hysterectomy Social History Smoking Status: Never smoker alcohol intake: never substance use type: does not use caffeine: Yes what type of physical activity do you participate in: none frequency: does not exercise ROS ROS ED Constitutional Constitutional ED: Denies chills or fever(s) Eyes Eyes: Denies change in vision Cardiovascular Cardiovascular: Denies palpitations or racing heartbeat Gastrointestinal Gastrointestinal: Denies nausea or vomiting Musculoskeletal Musculoskeletal: Denies arthralgias or myalgias Integumentary Denies rash Neurologic Neurologic: Denies paresthesias or weakness Hematologic/Lymphatic Hematologic/Lymphatic: Reports easy bleeding EXAM Physical Exam Const Vital Signs: 04/24/24 13:02 Temperature 98 F Temperature Source Oral Pulse Rate 67 Respiratory Rate 18 Blood Pressure 125/54 H Blood Pressure Mean 77 Pulse Ox 100 Oxygen Delivery Method Room Air Positive well nourished and well developed General Appearance ED: well developed and NAD HEENT Reports moist mucous membranes Eyes PERRL and EOMs intact bilaterally General Eye ED: Negative for pale conjunctiva Neck supple Chest Wall inspection of chest normal Resp normal respiratory effort and clear to auscultation bilaterally Cardio regular rate and regular rhythm Extremity Extremity Narrative: AV fistual in the left upper arm with palpable thrill. No active bleeding at this time. Bandages clean and dry. Neuro Sensorium / Orientation: alert Motor Exam: Negative for general weakness Psych mental status grossly normal Skin no rashes or lesions noted and no wounds MDM MDM MDM Narrative Medical decision making narrative: Patient presents with bleeding at hemodialysis access site. The bleeding has since stopped. Patient is asymptomatic. She is on any blood thinners. Patient's vital signs are normal. Discussed obtaining an H&H however I let the family know that will be about 6 hours before it is accurate associated with acute bleeding. They are comfortable deferring blood draw at this time to check her H&H. Patient has and occlusive dressing on her fistula site access point. They are dry and there is not appear to be any active bleeding. Will not remove them as I do not want to pull off any scab at this time. Patient is able to ambulate to wheelchair in the ER. She is eating. Will be discharged back to her nursing facility in the care of her family. Will give her referral to vascular surgery as she does often have issues with bleeding from her fistula. Family agreeable with plan of care. Patient given return precautions. Discharged home in stable condition. Discharge Plan Triage Chief Complaint: Wound Check ED Provider: Jolie Mosqueda Dx/Rx/DC Orders Clinical Impression: Bleeding due to dialysis catheter placement Instructions: ED Post Op Wound Check, Bleeding, ED Hemodialysis Access Bleeding Prescriptions: No Action levothyroxine 100 mcg tablet 100 mcg PO DAILY nifedipine 60 mg tablet extended release 60 mg PO DAILY mineral oil [Fleet Mineral Oil] Enema 118 ml PA DAILY PRN Rx Instructions: discard any unused portion Rectally every 24 hours as needed for constipation Once daily administer after once daily if no BM 8 hours after receiving suppository, If NO BM WITHIN 1 HOUR AFTER RECEIVNG ENEMA NOTIFY donepezil 10 mg tablet 10 mg PO DAILY magnesium hydroxide [Milk of Magnesia] 400 mg/5 mL suspension 5 ml PO DAILY PRN bisacodyl 10 mg suppository 10 mg PA DAILY PRN acetaminophen 500 mg capsule 500 mg PO Q6H PRN memantine 5 mg tablet 5 mg PO BID timolol maleate 1 DROP drops 1 drp EACH EYE BID calcium acetate(phosphat bind) 667 MG capsule 1,334 mg PO TIDCM isosorbide mononitrate 60 MG tablet 60 mg PO SUMOWEFR Pandel 0.1 % Cream 1 applic TOPICAL Q12H PRN (Reason: RASH/ITCHING) Patient Comments: PRN PER MAR albuterol sulfate 90 mcg/actuation HFA aerosol inhaler 2 inh INHALATION Q4H PRN (Reason: Shortness Of Breath) Patient Comments: PRN PER MAR budesonide-formoterol 160-4.5 mcg/actuation Hfa Aerosol Inhaler 1 inh INHALATION QHS dextran 70-hypromellose 0.1-0.3 % Drops 1 drp ophthalmic (eye) QHS aspirin 81 MG tablet,delayed release (DR/EC) 81 mg PO DAILY albuterol sulfate 2.5 mg /3 mL (0.083 %) solution for nebulization 2.5 mg continuous nebulization Q4H PRN (Reason: SOB/Wheezing) Patient Comments: PRN PER MAR clopidogrel 75 mg Tablet 75 mg PO DAILY Qty: 30 5RF atorvastatin 20 mg Tablet 40 mg PO DAILY Qty: 1 0RF Primary Care Provider: Kishan Camejo Referrals: Jim Shepherd MD [Med Staff - Active Staff] - As soon as possible Kishan Camejo MD [Primary Care Provider] - Print Language: [place] Disposition Disposition: Home, Self Care
== END 2024-04-24 14:24 | disposition skilled nursing facility (03) ==
PROVIDERS: Emergency Provider Emergency Medicine; PCP Family Medicine; Visit Provider Emergency Medicine
DX: T82.838A Hemorrhage due to vascular prosthetic devices, implants and grafts, initial encounter (principal); I13.2 Hypertensive heart and chronic kidney disease with heart failure and with stage 5 chronic kidney disease, or end stage renal disease; N18.6 End stage renal disease; I50.32 Chronic diastolic (congestive) heart failure; F03.90 Unspecified dementia, unspecified severity, without behavioral disturbance, psychotic disturbance, mood disturbance, and anxiety; X58.XXXA Exposure to other specified factors, initial encounter; E78.5 Hyperlipidemia, unspecified; Z99.2 Dependence on renal dialysis; Z79.02 Long term (current) use of antithrombotics/antiplatelets; Z79.899 Other long term (current) drug therapy; Z86.73 Personal history of transient ischemic attack (TIA), and cerebral infarction without residual deficits
CPT/HCPCS: 99284

== ENCOUNTER → 2024-06-08 | Outpatient (CLI) | payer MEDICARE, MEDICAID, SELFPAY ==
--- NOTE | 2024-06-08 13:24 | AVDS_ITS ---
Reason For Study: Fistula malfunction LEFT Inflow, 160.5/64.1 cm/sec. Inflow, 1773 ml/min. Prox anastamosis, 250.1/110.7 cm/sec. Prox anastamosis, 1417 ml/min. Prox graft, 320.8/162.1 cm/sec. Prox graft, 01960 ml/min. Mid graft, 289.1/83.5 cm/sec. Mid graft, 24125 ml/min. Distal graft, 278.8/153.5 cm/sec. Distal graft, 9678 ml/min. Outflow, 149.4/89.8 cm/sec. Outflow, 3249 ml/min. VL/AV Fistula/Dialysis Graft Scan Interpretation Summary Patent left upper extremity fistula with no stenosis, adequate flow volume, enl arged throughout with largest diameter 2.2 cm Ordering Physician: Liliana Denise Referring Physician: Kishan Camejo Performed By: Tamiko Arzate RVT
== END | disposition home or self-care (01) ==
LOC: CVS 13:17
PROVIDERS: PCP Family Medicine; Referring Provider Physician Assistant; Visit Provider Physician Assistant
DX: T82.898A Other specified complication of vascular prosthetic devices, implants and grafts, initial encounter (principal); N18.6 End stage renal disease; X58.XXXA Exposure to other specified factors, initial encounter; Z99.2 Dependence on renal dialysis

== ENCOUNTER 2024-06-27 06:55 | Day surgery (SDC) | payer MEDICARE, MEDICAID, SELFPAY ==
[2024-06-19 08:35] VITALS: BMI 23.2
--- NOTE | 2024-06-27 11:13 | OP.PCM_ITS ---
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 She had a duplex that did not reveal any focal stenosis and did reveal globally enlarged fistula and outflow vein. She is taken now for fistulogram to assess for central venous stenosis and potential planning for open revision. Description of procedure: Upon obtaining form consent and verification correct patient procedure site patient taken the [place] where she was positioned prepped and draped in usual sterile fashion. Timeouts performed conscious sedation administered Versed and fentanyl. Skin overlying the fistula just beyond the anastomosis was anesthetized 1% lidocaine the vessel accessed under ultrasound guidance with a micropuncture needle wire. This was then exchanged for a 6 Wallisian fistula sheath through which hand-injection digital subtraction fistulogram was performed including reflux into the arterial inflow and outflow assessment through to the atriocaval junction. There was stenosis identified at the costoclavicular angle with adjacent collaterals on the chest wall. An 018 wire was then advanced through the sheath traversing the area of stenosis. Intravascular ultrasound probe was then advanced into the innominate vein and recorded pullback performed of the innominate, axillary subclavian, basilic vein. This revealed 76% stenosis at the area of concern at the costoclavicular angle. The patient was then heparinized allowed to circulate for 3 minutes. The 6 Wallisian sheath was then exchanged for a 7 Wallisian sheath and through this and 8 mm x 2 Bard conquest balloon was advanced and centered at the lesion. He was inflated to nominal for 2 minutes and then deflated withdrawn. Next a Bard conquest 10 mm x4 was advanced and inflated to nominal and then deflated withdrawn. Finally a Bard [place] 12 x 4 was advanced centered on the lesion inflated to nominal for 2 minutes and then deflated withdrawn. With each subsequent inflation there appeared to be significant rebound of the lesion so a [employer] cutting balloon 8 mm x 2 was then advanced centered on the lesion inflated to nominal for 2 minutes and then deflated and withdrawn. Completion venogram revealed improved luminal caliber with brisk contrast transit through the area of intervention though there was still some filling of the collaterals. Given the location it was not an option to place any stent and given the reference vessel sizes it was not felt to be safe to increase the caliber of the balloon. Send there was improvement the hope was that this would provide sufficient outflow to decrease her bleeding complications. Finally a [employer] 12 x 4 paclitaxel coated angioplasty balloon was advanced in position centered on the lesion inflated to nominal for 2 minutes then deflated and withdrawn. Intravascular ultrasound probe was then readvanced and with ordered pullback performed of the area of the intervention. This revealed significant improvement in lumen caliber with near doubling of the lumen now with less than 50% stenosis. Seeing no further options for intervention a 4-0 Ethilon suture was placed at the access site and the sheath withdrawn followed by 5 minutes of manual pressure. The patient was then taken the recovery with plan discharged to her ECF. Surgical Findings: See above Complications Complications: No
== END 2024-06-27 10:30 | disposition home or self-care (01) ==
PROVIDERS: PCP Family Medicine; Referring Provider Surgery Trauma Surgery; Visit Provider Surgery Trauma Surgery
DX: T82.838A Hemorrhage due to vascular prosthetic devices, implants and grafts, initial encounter (principal); I13.2 Hypertensive heart and chronic kidney disease with heart failure and with stage 5 chronic kidney disease, or end stage renal disease; N18.6 End stage renal disease; I50.32 Chronic diastolic (congestive) heart failure; F03.90 Unspecified dementia, unspecified severity, without behavioral disturbance, psychotic disturbance, mood disturbance, and anxiety; X58.XXXA Exposure to other specified factors, initial encounter; Z99.2 Dependence on renal dialysis; Z79.02 Long term (current) use of antithrombotics/antiplatelets; Z79.82 Long term (current) use of aspirin; Z79.899 Other long term (current) drug therapy
CPT/HCPCS: 36902; 37252; 37253; 76937; 99152; 99153; C1753; C1894; C2623; Q9967; C1725; C1769

== ENCOUNTER 2024-07-03 14:13 | Inpatient (IN) | payer MEDICARE, MEDICAID, SELFPAY ==
[2024-07-03] VITALS (8 sets, daily range): BP systolic 87–142; BP diastolic 48–91; PULSE 75–84; RESP 12–20; TEMP 36.5–36.6; O2SAT 95–100; BMI 25.0; BMI 23.4
[2024-07-03] MEDS: 0.9% Normal Saline (500mL Bag) 500 ML 1000 ML IV (14:55)
[2024-07-03 15:01] LABS: Absolute Neutrophil Count 4.7 X10^3/uL (2.0-7.7); Basophil# 0.11 X10^3/uL; Basophil% 1.3 % (0-1); Eosinophils% 7.2 % (0-5); Hematocrit 31.6 % (37-47); Hemoglobin 9.7 g/dL (12.0-15.0); Lymphocyte % 26.3 % (19-41); Mean Corp Hgb Conc 30.7 g/dL (32-36); Mean Corpuscular Hgb 27.8 pg (27.0-32.0); Mean Corpuscular Volume 90.5 fL (81-99); Mean Platelet Vol. 12.2 fl (6.2-12.0); Monocyte# 0.73 X10^3/uL; Monocyte% 8.7 % (0-10); NRBC Flagged by Analyzer 0 % (0-5); Neutrophil # 4.71 X10^3/uL (2.7-7.7); Neutrophil % 56.1 % (47-70); Platelet Count 140 K/mm3 (150-450); RBC Distribution Width CV 16.5 % (11.6-14.6); RBC Distribution Width SD 53.8 fl (35.1-43.9); Red Blood Count 3.49 M/mm3 (4.2-5.4); White Blood Count 8.4 K/mm3 (4.4-11.0)
[2024-07-03 15:20] LABS: Anion Gap 6 (5-15); BUN 25 mg/dL (7-18); BUN/Creat Ratio 5.3 RATIO (10-20); Calcium,Total 8.1 mg/dL (8.5-10.1); Chloride 99 mmol/L (98-107); Creatinine, Serum 4.76 mg/dL (0.55-1.02); EST Glomerular Filtration Rate 9 mL/min (>60); Est Glom Filt Rate - Afr Amer 11 mL/min (>60); Estimated Creatinine Clearance 7.37 ml/min; Glucose 118 mg/dL (74-106); Potassium 3.5 mmol/L (3.5-5.1); Sodium Level 138 mmol/L (136-145); Troponin-I HS (w/2H Reflex) 46 pg/mL (3.0-54.0)
--- NOTE | 2024-07-03 15:36 | EDS_ITS ---
HPI History of Present Illness Chief Complaint: Weakness Detail of Chief Complaint: Collapse and CPR at dialysis unit Informant: other (Report obtained from nurse to nurse since patient has dementia and only oriented x 1) Limited: dementia Onset/Context/Timing Onset: Today and Hours Context: Sudden Onset Timing: Intermittent Quality: No pulse and CPR started at dialysis Location: Cardiopulmonary arrest Current Severity: Severe Maximum Severity: Severe Worsened by: Unknown Relieved by: Presumed CPR and fluid bolus Associated Symptoms Associated Symptoms: Patient became unresponsive with no pulse and no breathing Narrative Narrative: Patient is a 89-year-old woman who was demented. She is only oriented x 1. Dr. Jim Shepherd's note was reviewed from June 27. She had very minimal verbal response. She basically nodded her head yes or no. Patient was at dialysis. She did not complete dialysis. She apparently stared became unresponsive stop breathing there was no pulse. CPR was started. CPR was less than 1 minute. She did just a fluid bolus through her dialysis catheter. Patient is unable to contribute much with regards to her history or physical. At 1 point nurse was concerned she had a stroke. When I went in to evaluate her when asked which arm or leg I was touching she would lift that arm or leg. Which is totally different than what the nurse got because she applied painful noxious stimuli with no response or movement. 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) [facility] Medical History TIA (transient ischemic attack) Anemia Hypertension ESRD (end stage renal disease) on dialysis Problem with dialysis access Chronic diastolic (congestive) heart failure End-stage renal disease (ESRD) History of CVA (cerebrovascular accident) (12/15/19) Essential hypertension Problem with dialysis access Respiratory failure with hypoxia Iron deficiency anemia RENAL FAILURE STAGE 6 Chronic renal failure, stage 5 Dementia Elevated troponin I level Metabolic acidosis Acute respiratory failure with hypoxia Anemia Iron deficiency anemia Chronic kidney disease (CKD) stage G5/A1, glomerular filtration rate (GFR) less than or equal to 15 mL/min/1.73 square meter and albuminuria creatinine ratio less than 30 mg/g Cough Shortness of breath Cerebellar infarct Speech apraxia Asthma Glaucoma Obesity (BMI 30.0-34.9) Hyperlipidemia Home Medications ?Medication ?Instructions ?Recorded ?Last Taken ?Type timolol maleate 0.5 % eye drops 1 drp EACH EYE BID GLA UCOMA 11/26/15 03/15/23 History levothyroxine 100 mcg tablet 100 mcg PO DAILY thyroid 07/31/19 03/15/23 History isosorbide mononitrate 60 mg 60 mg PO SUMOWEFR HTN 10/0903/14/23 History tablet,extended release 24 hr nifedipine 60 mg tablet,extended 60 mg PO DAILY BLOOD PRESSURE 05/12/21 03/15/23 History release albuterol sulfate 90 mcg/actuation 2 inh inhalation Q4 H PRN Shortness 07/17/22 Unknown History aerosol inhaler Of Breath aspirin 81 mg tablet,delayed 81 mg PO DAILY HEART HEAL TH 07/17/22 03/15/23 History release budesonide-formoterol HFA 160 1 inh inhalation QHS RAYSHAWN RTNESS OF 07/17/22 03/14/23 History mcg-4.5 mcg/actuation aerosol BREATH inhaler dextran 70-hypromellose 0.1 %-0.3 1 drp ophthalmic (ey e) QHS 07/17/22 03/14/23 History % eye drops albuterol sulfate 2.5 mg/3 mL 2.5 mg continuous nebuli zation Q4H 12/05/22 Unknown History (0.083 %) solution for nebulization PRN SOB/Wheezing clopidogrel 75 mg tablet 75 mg PO DAILY #30 tabs 11/2003/15/23 Rx atorvastatin 20 mg tablet 40 mg (2 x 20 mg) PO DAILY 1 03/14/23 Rx CHOLESTEROL #1 TAB acetaminophen 500 mg capsule 500 mg PO Q6H PRN fever o r pain 08/29/23 Unknown History bisacodyl 10 mg rectal suppository 10 mg LA DAILY PRN constipation 08/29/23 Unk nown History donepezil 10 mg tablet 10 mg PO DAILY 08/29/23 Unkn own History magnesium hydroxide 400 mg/5 mL 5 ml PO DAILY PRN cons tipation 08/29/23 Unknown History oral suspension (Milk of Magnesia) mineral oil (Fleet Mineral Oil 118 ml LA DAILY PRN con stipation 09/12/23 Unknown History enema) memantine 5 mg tablet 5 mg PO BID 03/12/24 Unknown History sevelamer carbonate 800 mg tablet 800 mg PO TID Unknown History vitamin B complex-vitamin C-folic 1 tab DAILY 07/03/24 Unknown History acid 0.8 mg tablet (Nephro-Jean Paul) Allergy/AdvReac Type Severity Reaction Status Date / Time erythromycin base Allergy Rash Verified 05/30/24 14:09 lisinopril Allergy Unknown Verified 05/30/24 14:09 NSAIDS (Non-Steroidal Allergy Other Verified 05/30/24 14:09 Anti-Inflamma Salicylates Allergy Other Verified 05/30/24 14:09 Family History Mother Colon cancer Hypertension Father Hypertension Surgical History History of loop recorder (07/20/19) s/p left AV fistula creation (02/19/19) Hx of foot surgery Hx of thyroidectomy Hx of cataract extraction Hx of hysterectomy Social History Smoking Status: Never smoker alcohol intake: never substance use type: does not use caffeine: Yes what type of physical activity do you participate in: none frequency: does not exercise ROS ROS ED Review of Systems ROS Unobtainable: due to mental status EXAM Physical Exam Const Vital Signs: 07/03/24 14:17 07/03/24 15:11 07/03/24 15:16 Temperature 97.7 F L Temperature Source Oral Pulse Rate 80 75 Respiratory Rate 18 12 Respiratory Effort Normal Respiratory Pattern Normal Blood Pressure 90/48 L 87/66 L Blood Pressure Mean 62 73 Pulse Ox 98 96 Oxygen Delivery Method Room Air Room Air 07/03/24 16:00 07/03/24 17:00 07/03/24 18:00 Temperature Temperature Source Pulse Rate 77 81 80 Respiratory Rate 20 H 15 13 Respiratory Effort Respiratory Pattern Blood Pressure 120/50 L 138/91 H 129/54 H Blood Pressure Mean 73 106 79 Pulse Ox 97 98 100 Oxygen Delivery Method Room Air Room Air Room Air 07/03/24 18:29 07/03/24 19:00 Temperature 97.9 F Temperature Source Pulse Rate 81 84 Respiratory Rate 18 20 H Respiratory Effort Respiratory Pattern Blood Pressure 139/60 H 99/86 H Blood Pressure Mean 86 90 Pulse Ox 99 95 Oxygen Delivery Method Room Air Positive well nourished and well developed Constitutional Narrative: Patient has mild temporal wasting. Vital signs are remarkable for hypotension. General Appearance ED: well developed and NAD; Negative for pallor HEENT Reports dry mucous membranes HEENT Narrative: Temporal wasting. Ears normal. Nares patent. Posterior pharynx is normal. Uvula is midline. Mouth ED: Yes dry mucous membranes Mouth: dry mucous membranes Eyes PERRL and EOMs intact bilaterally General Eye ED: Yes pale conjunctiva; Negative for scleral icterus Neck no lymphadenopathy, supple and no JVD Chest Wall Negative for inspection of chest normal or palpation of chest normal Chest Narrative: Patient with bogginess over the anterior left chest and proximal left arm. Concerned that the fluid that was infused through the dialysis catheter has extravasated which raises question regarding integrity of the catheter. Furthermore one of the ports was left open and became contaminated. Fortunately the clamp was closed. Resp normal respiratory effort Auscultation: rales bilateral base Cardio regular rate, regular rhythm, S1 normal heart sound, S2 normal heart sound and no murmurs GI normal to inspection, nondistended, normoactive bowel sounds, non-tender, non- distended and no masses; Negative for hepatosplenomegaly Back/Spine no CVA tenderness Extremity General Extremety ED: Yes edema General Extremity: edema Neuro CN's II-XII intact bilaterally Neuro Narrative: Oriented to name only. Does move all extremities. Sensation is intact. Skin no rashes or lesions noted, no wounds and No skin turgor normal General Skin Exam: Negative for jaundice or pallor MDM MDM MDM Narrative Medical decision making narrative: Uncertain if patient had cardiac dysrhythmia versus ischemia versus vasovagal response. Will obtain EKG, troponin with 2-hour troponin, CBC, electrolyte panel and lactate. Patient did receive fluid bolus of 500 cc normal saline. Her blood pressure did improve. Because of the concern of the integrity of the dialysis catheter and the fact it was contaminated spoke with Dr. Shepherd's nurse practitioner. They will see in consultation and change the Vas-Cath. Lab Data Attestation: I reviewed the patient's lab results. Lab results narrative: White count is normal with normal differential. H&H is 9.7 and 31.6. Lactate is normal. First troponin and second troponin are normal with a delta of -4. Labs: Laboratory Results - last 24 hr 07/03/24 07/03/24 07/03/24 14:48 15:32 17:15 WBC 8.4 RBC 3.49 L Hgb 9.7 L Hct 31.6 L MCV 90.5 MCH 27.8 MCHC 30.7 L RDW Std Deviation 53.8 H RDW Coeff of Lizett 16.5 H Plt Count 140 L MPV 12.2 H Immature Gran % (Auto) 0.400 Neut % (Auto) 56.1 Lymph % (Auto) 26.3 Grant % (Auto) 8.7 Eos % (Auto) 7.2 H Baso % (Auto) 1.3 H Absolute Neuts (auto) 4.7 Absolute Lymphs (auto) 2.20 Nucleated RBC % 0 Sodium 138 Potassium 3.5 Chloride 99 Carbon Dioxide 33.0 H Anion Gap 6 BUN 25 H Creatinine 4.76 H Estim Creat Clear Calc 7.37 Est GFR (MDRD) Af Amer 11 L Est GFR (MDRD) Non-Af 9 L BUN/Creatinine Ratio 5.3 L Glucose 118 H Lactic Acid 1.3 Calcium 8.1 L Troponin I High Sens 46 42 Management Discussion w/another healthcare provider: Hospitalist (Case discussed with Dr. Patrick who accepted patient full admit to PCU) and Motion Graphics Artist (Spoke with Liliana Dr. Shepherd's nurse practitioner because of the contaminated port and the fact that the fluid that was infused for her hypotension extravasated which raises concern for the integrity of the dialysis catheter. They will see patient in consultation to assess the dialysis catheter an) Discharge Plan Dx/Rx/DC Orders Clinical Impression: Syncope and collapse, Hyperlipidemia, Dementia, Iron deficiency anemia, Essential hypertension, Right bundle branch block (RBBB) with left anterior fascicular block, ESRD on hemodialysis, Respiratory arrest, Acute hypotension, Complication, dialysis catheter clot or failure Disposition Disposition: [facility] Discharge Date/Time: 07/03/24 21:02
[2024-07-03 16:05] LABS: Lactic Acid 1.3 mmol/L (0.4-1.9)
[2024-07-03 16:54] LABS: Reflex Troponin-HS? (from REC) Y
[2024-07-03 17:49] LABS: Troponin-I HS 42 pg/mL (3.0-54.0)
--- NOTE | 2024-07-03 19:09 | PCM.HP.STD ---
HPI - General General Date of Admission: 07/03/24 Date of Service: 07/03/24 Chief Complaint: Syncope and collapse HPI Narrative LOUISE ZAVALA, is a 89 F who presented who presented to the emergency department [facility] on 07/03/2024 after a syncopal episode at dialysis. Patient was almost done with dialysis and had about 20 minutes left at which time it was reported her eyes, rolled back in her head. Pulses were not able to be obtained and she received a brief stint of CPR however had return of baseline mental status fairly shortly and CPR was discontinued. Patient has had episodes like this previously and I highly suspect she gets hypotensive to the point her peripheral pulses are not palpable. Given this episode of dialysis she was brought to the emergency department for further evaluation. At baseline the patient is only alert and oriented x 1 due to dementia. During this event she was given fluid boluses through her dialysis catheter. There were also reported issues with her left upper extremity fistula. By the time of my evaluation the patient had no complaints and per family was at her baseline. Family was fairly unconcerned as they indicate she has had this several times previously. Vital signs on presentation showed a temperature of 97.7, heart rate 80, respiratory rate 18, initial blood pressure was 90/48 and pulse ox was 98% on room air. Blood pressure improved to 139/91 prior to transitioning out of the emergency department. CBC shows chronic stable anemia with a hemoglobin of 9.7. Platelet count was 140,000 which again is her baseline. BMP showed stable electrolytes with an elevated BUN and creatinine consistent with her baseline. Lactic acid was normal at 1.3, initial troponin was 46 with a repeat of 42. EKG was not consistent with any ischemia and stable when compared to previous. Given her syncopal episode and her fistula malfunction we will admit her to PCU for ongoing cardiac monitoring and vascular surgery will be consulted to assist with her left upper extremity AV fistula. [facility] Medical History TIA (transient ischemic attack) Anemia Hypertension ESRD (end stage renal disease) on dialysis Problem with dialysis access Chronic diastolic (congestive) heart failure End-stage renal disease (ESRD) History of CVA (cerebrovascular accident) (12/15/19) Essential hypertension Problem with dialysis access Respiratory failure with hypoxia Iron deficiency anemia RENAL FAILURE STAGE 6 Chronic renal failure, stage 5 Dementia Elevated troponin I level Metabolic acidosis Acute respiratory failure with hypoxia Anemia Iron deficiency anemia Chronic kidney disease (CKD) stage G5/A1, glomerular filtration rate (GFR) less than or equal to 15 mL/min/1.73 square meter and albuminuria creatinine ratio less than 30 mg/g Cough Shortness of breath Cerebellar infarct Speech apraxia Asthma Glaucoma Obesity (BMI 30.0-34.9) Hyperlipidemia Home Medications ?Medication ?Instructions ?Recorded ?Last Taken ?Type timolol maleate 0.5 % eye drops 1 drp EACH EYE BID GLAUCOMA 11/26/15 03/15/23 History levothyroxine 100 mcg tablet 100 mcg PO DAILY thyroid 07/31/19 03/15/23 History isosorbide mononitrate 60 mg 60 mg PO SUMOWEFR HTN 10/26/19 03/14/23 History tablet,extended release 24 hr nifedipine 60 mg tablet,extended 60 mg PO DAILY BLOOD PRESSURE 05/12/21 03/15/23 History release albuterol sulfate 90 mcg/actuation 2 inh inhalation Q4H PRN Shortness 07/17/22 Unknown History aerosol inhaler Of Breath aspirin 81 mg tablet,delayed 81 mg PO DAILY HEART HEALTH 07/17/22 03/15/23 History release budesonide-formoterol HFA 160 1 inh inhalation QHS SHORTNESS OF 07/17/22 03/14/23 History mcg-4.5 mcg/actuation aerosol BREATH inhaler dextran 70-hypromellose 0.1 %-0.3 1 drp ophthalmic (eye) QHS 07/17/22 03/14/23 History % eye drops albuterol sulfate 2.5 mg/3 mL 2.5 mg continuous nebulization Q4H 12/05/22 Unknown History (0.083 %) solution for nebulization PRN SOB/Wheezing clopidogrel 75 mg tablet 75 mg PO DAILY #30 tabs 12/06/22 03/15/23 Rx atorvastatin 20 mg tablet 40 mg (2 x 20 mg) PO DAILY 03/16/23 03/14/23 Rx CHOLESTEROL #1 TAB acetaminophen 500 mg capsule 500 mg PO Q6H PRN fever or pain 08/29/23 Unknown History bisacodyl 10 mg rectal suppository 10 mg VT DAILY PRN constipation 08/29/23 Unknown History donepezil 10 mg tablet 10 mg PO DAILY 08/29/23 Unknown History magnesium hydroxide 400 mg/5 mL 5 ml PO DAILY PRN constipation 08/29/23 Unknown History oral suspension (Milk of Magnesia) mineral oil (Fleet Mineral Oil 118 ml VT DAILY PRN constipation 09/12/23 Unknown History enema) memantine 5 mg tablet 5 mg PO BID 03/12/24 Unknown History sevelamer carbonate 800 mg tablet 800 mg PO TID 07/03/24 Unknown History vitamin B complex-vitamin C-folic 1 tab DAILY 07/03/24 Unknown History acid 0.8 mg tablet (Nephro-Jean Paul) Allergy/AdvReac Type Severity Reaction Status Date / Time erythromycin base Allergy Rash Verified 05/30/24 14:09 lisinopril Allergy Unknown Verified 05/30/24 14:09 NSAIDS (Non-Steroidal Allergy Other Verified 05/30/24 14:09 Anti-Inflamma Salicylates Allergy Other Verified 05/30/24 14:09 Family History Mother Colon cancer Hypertension Father Hypertension Surgical History History of loop recorder (07/20/19) s/p left AV fistula creation (02/19/19) Hx of foot surgery Hx of thyroidectomy Hx of cataract extraction Hx of hysterectomy Social History Smoking Status: Never smoker alcohol intake: never substance use type: does not use caffeine: Yes what type of physical activity do you participate in: none frequency: does not exercise ROS Review of Systems ROS Unobtainable: other Details: Limited ability to participate in review of systems due to dementia Vital Signs Vital Signs Vital Signs: 07/03/24 14:17 07/03/24 15:11 07/03/24 15:16 Temperature 97.7 F L Temperature Source Oral Pulse Rate 80 75 Respiratory Rate 18 12 Respiratory Effort Normal Respiratory Pattern Normal Blood Pressure 90/48 L 87/66 L Blood Pressure Mean 62 73 Pulse Ox 98 96 Oxygen Delivery Method Room Air Room Air 07/03/24 16:00 07/03/24 17:00 07/03/24 18:00 Temperature Temperature Source Pulse Rate 77 81 80 Respiratory Rate 20 H 15 13 Respiratory Effort Respiratory Pattern Blood Pressure 120/50 L 138/91 H 129/54 H Blood Pressure Mean 73 106 79 Pulse Ox 97 98 100 Oxygen Delivery Method Room Air Room Air Room Air 07/03/24 18:29 Temperature 97.9 F Temperature Source Pulse Rate 81 Respiratory Rate 18 Respiratory Effort Respiratory Pattern Blood Pressure 139/60 H Blood Pressure Mean 86 Pulse Ox 99 Oxygen Delivery Method Weight Weight: 64.2 kg Body Mass Index (BMI) 25.0 Physical Exam Const alert, no apparent distress, average body habitus and well nourished; Negative for oriented x3 or healthy appearing Constitutional Narrative: Elderly, confused but cooperative, -[place] female, sitting up in bed, appears comfortable, nontoxic General Appearance: cooperative Orientation / Consciousness: confused HEENT normocephalic, head/scalp atraumatic and moist oral mucous membranes HEENT Narrative: Mild hearing loss, Mallampati 3, no thrush Eyes Eyes Narrative: Mild conjunctiva pallor bilaterally, no scleral icterus Neck supple Neck Narrative: Trachea midline Resp normal respiratory effort, no retractions, no use of accessory muscles and clear to auscultation bilaterally Auscultation: Negative for rales, rhonchi or wheezes Cardio regular rate, regular rhythm, S1 normal heart sound, S2 normal heart sound, no murmurs, no rub, no gallops and no clicks GI normal to inspection, nondistended, normoactive bowel sounds, soft to palpation and non-tender Extremity no clubbing, cyanosis or edema Extremity Narrative: 2+ pedal pulses, 2+ radial pulses, no skin lesions noted on lower extremities Neuro moves all extremities and no focal motor deficits Neuro Narrative: Significant generalized weakness noted but no focal deficits Sensorium / Orientation: awake, alert and oriented to person; Negative for oriented to place or oriented to time Psych affect normal Psych Narrative: Pleasant Results Lab / Micro Data 07/03/24 14:48 07/03/24 14:48 Labs: Laboratory Results - last 24 hr 07/03/24 14:48: WBC 8.4, RBC 3.49 L, Hgb 9.7 L, Hct 31.6 L, MCV 90.5, MCH 27.8, MCHC 30.7 L, RDW Std Deviation 53.8 H, RDW Coeff of Lizett 16.5 H, Plt Count 140 L, MPV 12.2 H, Immature Gran % (Auto) 0.400, Neut % (Auto) 56.1, Lymph % (Auto) 26.3, [place] % (Auto) 8.7, Eos % (Auto) 7.2 H, Baso % (Auto) 1.3 H, Absolute Neuts (auto) 4.7, Absolute Lymphs (auto) 2.20, Nucleated RBC % 0, Sodium 138, Potassium 3.5, Chloride 99, Carbon Dioxide 33.0 H, Anion Gap 6, BUN 25 H, Creatinine 4.76 H, Estim Creat Clear Calc 7.37, Est GFR (MDRD) Af Amer 11 L, Est GFR (MDRD) Non-Af 9 L, BUN/Creatinine Ratio 5.3 L, Glucose 118 H, Calcium 8.1 L, Troponin I High Sens 46 07/03/24 15:32: Lactic Acid 1.3 07/03/24 17:15: Troponin I High Sens 42 Assessment & Plan Assessment/Plan (1) Complication, dialysis catheter clot or failure: (2) Acute hypotension: (3) Syncope and collapse: PLAN: Plan Syncope and collapse -It was reported patient had loss of pulse and received CPR at dialysis very briefly -Highly suspect patient was markedly hypotensive and peripheral pulse was not able to be palpated due to low blood pressure -Very brief amount of CPR with no other intervention which again is not consistent with loss of pulses -Will monitor on telemetry for any events -Check echocardiogram -Patient has had episodes like this several times previously related to hypotension on dialysis -? If need to hold antihypertensives on dialysis days--> will leave to nephrology Malfunctioning left upper extremity dialysis fistula -Vascular surgery consultation -Case was discussed with Dr. Shepherd by the emergency department End-stage renal disease on dialysis -Patient was at dialysis on the day of presentation -Tuesday dialysis -Patient only had 20 minutes left on her session today when they stopped dialysis due to her hypotension -Continue home binders -Patient follows with Dr. Kianna Patrick will consult for assistance with dialysis Hypertension -Suspect patient may get hypotensive during her dialysis sessions but hypertensive at baseline -Continue home nifedipine 60 mg daily -Continue home isosorbide mononitrate daily -Monitor closely Hyperlipidemia -Continue home atorvastatin Hypothyroidism -Continue levothyroxine History of stroke -Continue home aspirin and Plavix -No residual deficits per discussion with family -Summer 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 anemia secondary to chronic renal disease -Baseline hemoglobin appears to run between 9.5 and 11 -Hemoglobin stable -Repeat CBC in a.m. Glaucoma -Continue home eyedrops Chronic HFpEF -Diastolic in nature -Compensated -Dialysis for volume management COPD/asthma -Continue home inhalers Dementia -Continue home memantine DVT prophylaxis -Subcu heparin every 8 hours CODE STATUS -Full code per discussion prior to admission with family at the time of admission Charges/Coding Visit Charges Inpatient E&M: 50271 Init Hosp L2
--- NOTE | 2024-07-03 19:24 | ED.RN ---
Pt arrived by EMS with extensive swelling to L upper chest. Report given by Dialysis stated IV fluids initiated due to hypotension. Pt has no complaints or pain from site, Dr. Thapa aware, Dr. Shepherd consulted for removal and replacement.
--- NOTE | 2024-07-03 21:08 | ECHOD_ITS ---
Reason For Study : Syncope Procedure This was a 2D Doppler, Color Flow transthoracic echocardiogram. Exam performed portable in patient room. Left Ventricle Normal LV size. Sigmoid septum. The estimated ejection fraction is 60 %. No regional wall motion abnormalities noted. Right Ventricle Normal RV size. Normal systolic function. Atria Normal left atrium. Normal right atrium. No doppler evidence for ASD. Mitral Valve There is no mitral valve stenosis. Mild (1+) mitral valve insufficiency. Tricuspid Valve There is no tricuspid stenosis. Unable to estimate RV systolic pressure due to inadequate jet, pulmonary artery pressure probably normal. Aortic Valve Trisinus/trileaflet aortic valve. There is no aortic stenosis. No aortic valve insufficiency. Pulmonic Valve There is no pulmonic valvular stenosis. No pulmonic valve insufficiency. Great Vessels Normal aortic root. Pericardium/Pleural No pericardial effusion. MMode/2D Measurements & Calculations EDV(MOD-sp2): 74.1 ml Ao root diam: 3.3 cm EDV(sp4-el): 82.6 ml EDV(MOD-sp4): 83.6 ml EDV(sp2-el): 76.6 ml ESV(MOD-sp4): 32.5 ml ESV(MOD-sp2): 25.7 ml ESV(sp2-el): 25.1 ml ESV(sp4-el): 29.4 ml LA A4 area: 23.1 cm?? FS: 32.6 % IVSd: 0.82 cm LAV(MOD-sp2): 32.9 ml LAV(MOD-bp): 53.7 ml LA dimension(2D): 3.4 cm LVAd ap4: 27.7 cm?? LAV(MOD-sp4): 65.5 ml LAV(MOD-bp) Indexed: 33.9 ml/m?? LVIDd: 5.3 cm LVAs ap2: 14.4 cm?? LVAd ap2: 27.2 cm?? LVLd ap4: 7.9 cm LVIDs: 3.5 cm LVAs ap4: 15.4 cm?? LVLs ap2: 7.0 cm LVLd ap2: 8.2 cm LVPWd: 0.85 cm LVLs ap4: 6.8 cm RVDd: 3.1 cm RA A4 area: 11.9 cm?? Doppler Measurements & Calculations Ao max P.5 mmHg Ao V2 max: 196.9 cm/sec E/E' med: 13.5 E/E' lat: 11.4 LV V1 max: 126.2 cm/sec LV V1 max P.4 mmHg Lat Peak E' Ghanshyam: 8.1 cm/sec Med Peak E' Ghanshyam: 6.8 cm/sec MV A max ghanshyam: 146.2 cm/sec MV dec slope: 523.7 cm/sec?? MV E max ghanshyam: 92.5 cm/sec MV dec time: 0.18 sec PA V2 max: 118.4 cm/sec PA max P.6 mmHg Other Measurements & Calculations EF(MOD-sp4): 61.2 % EF(MOD-sp2): 65.4 % EF(sp4-el): 64.5 % MV E/A: 0.63 SV(MOD-sp4): 51.1 ml SV(MOD-sp2): 48.4 ml SV(sp4-el): 53.3 ml Conclusions The estimated ejection fraction is 60 %. Mild (1+) mitral valve insufficiency. Ordering Physician: Melody Patrick Referring Physician: Kishan Camejo Performed By: Ofelia Sears RDCS Electronically signed by: Jennifer Pittman MD 07/04/2024, 2: 13 PM
[2024-07-03] MEDS: Memantine Hydrochloride 5 MG Tablet PO (22:16)
[2024-07-03] MEDS: Heparin Injection (Vial) 5,000 UNIT/ML VIAL 5000 UNIT SC (22:16)
[2024-07-03] MEDS: Timolol 0.5% 5ML OPTH.BTL 1 DRP EACH EYE (22:16)
--- NOTE | 2024-07-03 23:57 | NURSING ---
This RN is taking over care at this time.
[2024-07-04] VITALS (8 sets, daily range): BP systolic 86–135; BP diastolic 41–53; PULSE 75–100; RESP 14–18; TEMP 36.8; O2SAT 95–100; BMI 23.4
[2024-07-04] MEDS: Heparin Injection (Vial) 5,000 UNIT/ML VIAL 5000 UNIT SC ×3 (06:10→21:48)
[2024-07-04] MEDS: Levothyroxine 100 MCG Tablet PO (06:10)
[2024-07-04] MEDS: 0.9% Saline Lock 10 ML Syringe IV ×2 (06:12→21:49)
[2024-07-04] MEDS: Albuterol 2.5 MG/3 ML VIAL.NEB. INHALATION ×2 (06:42→20:05)
[2024-07-04] MEDS: Budesonide Respules 0.5 MG/2 ML AMPUL.NEB. INHALATION ×2 (06:43→20:05)
--- NOTE | 2024-07-04 07:41 | CON.PCM.SX_ITS ---
Assessment & Plan Assessment/Plan (1) Problem with dialysis access: QUALIFIERS: Encounter type: initial encounter Qualified Code(s): T82.898A - Other specified complication of vascular prosthetic devices, implants and grafts, initial encounter (2) AV fistula: PLAN: Plan On exam, no active bleeding from fistula access sites; mild edema consistent with report of infiltration/extravasation of IV fluid; adequate thrill and bruit. No intervention needed at this time. Suture intact from fistulogram last week, will leave this in place another week. She is scheduled for routine outpatient follow-up in our office in 2 weeks, will plan to keep this as scheduled. HPI Consult Data Date of Consult: 07/04/24 HPI Narrative HPI Narrative: LOUISE ZAVALA, is a 89 F who presented to the [facility] ER yesterday after an unresponsive episode at dialysis. She has dementia and is not an accurate historian so history is obtained from ER physician, nursing, and chart review. She had about 20 minutes left in her dialysis session yesterday when she became unresponsive and required reportedly 1 minute of chest compressions before she regained consciousness. It seems that her dialysis access via her fistula had still been in place and EMS utilized this for fluid bolus; however, in ER it seemed on exam that this had extravasated. In the ER she seemed to be at her baseline mentation and was feeling to her baseline. She was admitted for observation. We are consulted for evaluation of her fistula. On my exam this morning, patient was sleeping but awoke to verbal stimuli. She was oriented to self, flat affect. She denied any pain. She did not recall the events that led to her admission. Dialysis access needles had been removed and coban pressure dressings were in place over fistula access sites this morning, nursing reports these have been in place overnight and they have not noted any further bleeding. [facility] Medical History TIA (transient ischemic attack) Anemia Hypertension ESRD (end stage renal disease) on dialysis Problem with dialysis access Chronic diastolic (congestive) heart failure End-stage renal disease (ESRD) History of CVA (cerebrovascular accident) (12/15/19) Essential hypertension Problem with dialysis access Respiratory failure with hypoxia Iron deficiency anemia RENAL FAILURE STAGE 6 Chronic renal failure, stage 5 Dementia Elevated troponin I level Metabolic acidosis Acute respiratory failure with hypoxia Anemia Iron deficiency anemia Chronic kidney disease (CKD) stage G5/A1, glomerular filtration rate (GFR) less than or equal to 15 mL/min/1.73 square meter and albuminuria creatinine ratio less than 30 mg/g Cough Shortness of breath Cerebellar infarct Speech apraxia Asthma Glaucoma Obesity (BMI 30.0-34.9) Hyperlipidemia Home Medications ?Medication ?Instructions ?Recorded ?Last Taken ?Type timolol maleate 0.5 % eye drops 1 drp EACH EYE BID GLA UCOMA 11/26/15 03/15/23 History levothyroxine 100 mcg tablet 100 mcg PO DAILY thyroid 07/31/19 03/15/23 History isosorbide mononitrate 60 mg 60 mg PO SUMOWEFR HTN 10/0903/14/23 History tablet,extended release 24 hr nifedipine 60 mg tablet,extended 60 mg PO DAILY BLOOD PRESSURE 05/12/21 03/15/23 History release albuterol sulfate 90 mcg/actuation 2 inh inhalation Q4 H PRN Shortness 07/17/22 Unknown History aerosol inhaler Of Breath aspirin 81 mg tablet,delayed 81 mg PO DAILY HEART HEAL TH 07/17/22 03/15/23 History release budesonide-formoterol HFA 160 1 inh inhalation QHS RAYSHAWN RTNESS OF 07/17/22 03/14/23 History mcg-4.5 mcg/actuation aerosol BREATH inhaler dextran 70-hypromellose 0.1 %-0.3 1 drp ophthalmic (ey e) QHS 07/17/22 03/14/23 History % eye drops albuterol sulfate 2.5 mg/3 mL 2.5 mg continuous nebuli zation Q4H 12/05/22 Unknown History (0.083 %) solution for nebulization PRN SOB/Wheezing clopidogrel 75 mg tablet 75 mg PO DAILY #30 tabs 11/2003/15/23 Rx atorvastatin 20 mg tablet 40 mg (2 x 20 mg) PO DAILY 1 03/14/23 Rx CHOLESTEROL #1 TAB acetaminophen 500 mg capsule 500 mg PO Q6H PRN fever o r pain 08/29/23 Unknown History bisacodyl 10 mg rectal suppository 10 mg AL DAILY PRN constipation 08/29/23 Unknown History donepezil 10 mg tablet 10 mg PO DAILY 08/29/23 Unkn own History magnesium hydroxide 400 mg/5 mL 5 ml PO DAILY PRN cons tipation 08/29/23 Unknown History oral suspension (Milk of Magnesia) mineral oil (Fleet Mineral Oil 118 ml AL DAILY PRN con stipation 09/12/23 Unknown History enema) memantine 5 mg tablet 5 mg PO BID 03/12/24 Unknown History sevelamer carbonate 800 mg tablet 800 mg PO TID Unknown History vitamin B complex-vitamin C-folic 1 tab DAILY 07/03/24 Unknown History acid 0.8 mg tablet (Nephro-Jean Paul) Allergy/AdvReac Type Severity Reaction Status Date / Time erythromycin base Allergy Rash Verified 05/30/24 14:09 lisinopril Allergy Unknown Verified 05/30/24 14:09 NSAIDS (Non-Steroidal Allergy Other Verified 05/30/24 14:09 Anti-Inflamma Salicylates Allergy Other Verified 05/30/24 14:09 Family History Mother Colon cancer Hypertension Father Hypertension Surgical History History of loop recorder (07/20/19) s/p left AV fistula creation (02/19/19) Hx of foot surgery Hx of thyroidectomy Hx of cataract extraction Hx of hysterectomy Social History Smoking Status: Never smoker alcohol intake: never substance use type: does not use caffeine: Yes what type of physical activity do you participate in: none frequency: does not exercise Physical Exam Const alert and no apparent distress General Appearance: cooperative and comfortable HEENT normocephalic, head/scalp atraumatic, hearing grossly normal bilaterally, external ears normal and external nose normal Eyes General Eye: normal appearance of both eyes Neck General: normal visual inspection Resp normal respiratory effort, normal air movement, no retractions and no use of accessory muscles Effort and Inspection: able to speak in complete sentences; Negative for labored, grunting, stridor or retractions Cardio regular rate and regular rhythm Cardio Narrative: 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 Bruit and thrill throughout the fistula Appreciate some mild surrounding edema consistent with infiltration, does not appear that it will hinder access. Skin no rashes or lesions noted and no wounds Neuro CN's II-XII intact bilaterally, moves all extremities and no focal motor deficits Sensorium / Orientation: alert and oriented to person Speech: speech normal Psych Appearance: grossly normal Attitude: calm Speech: normal speech Mood & Affect: flat affect Memory / Cognition: dementia Lab / Micro Data 07/03/24 14:48 07/03/24 14:48 Labs: Laboratory Results - last 24 hr 07/03/24 14:48: WBC 8.4, RBC 3.49 L, Hgb 9.7 L, Hct 31.6 L, MCV 90.5, MCH 27.8, MCHC 30.7 L, RDW Std Deviation 53.8 H, RDW Coeff of Lizett 16.5 H, Plt Count 140 L, MPV 12.2 H, Immature Gran % (Auto) 0.400, Neut % (Auto) 56.1, Lymph % (Auto) 26.3, [place] % (Auto) 8.7, Eos % (Auto) 7.2 H, Baso % (Auto) 1.3 H, Absolute Neuts (auto) 4.7, Absolute Lymphs (auto) 2.20, Nucleated RBC % 0, Sodium 138, Potassium 3.5, Chloride 99, Carbon Dioxide 33.0 H, Anion Gap 6, BUN 25 H, C reatinine 4.76 H, Estim Creat Clear Calc 7.37, Est GFR (MDRD) Af Amer 11 L, Est GFR (MDRD) Non-Af 9 L, BUN/Creatinine Ratio 5.3 L, Glucose 118 H, Calcium 8.1 L, Troponin I High Sens 46 07/03/24 15:32: Lactic Acid 1.3 07/03/24 17:15: Troponin I High Sens 42 Charges/Coding Visit Charges Inpatient E&M: 15394 Init Hosp L1
--- NOTE | 2024-07-04 07:45 | PN.HOSP_ITS ---
Reason for Visit Reason for Visit: Diagnoses Hypotension, unspecified (07/03/24) Syncope and collapse (07/03/24) Subjective Subjective No events over night. Anterior swelling in left chest has improved. Objective Data Objective Data Vital Signs: Vital Signs Temp Pulse Resp BP Pulse Ox O2 Del Method 36.8 C 85 18 104/41 L 96 Room Air 07/04/24 04:24 07/04/24 06:43 07/04/24 06:43 07/04/24 04:24 07/04/24 06:43 07/04/24 06:43 Oxygen Delivery Method Room Air Weight: 60.1 kg Body Mass Index (BMI) 23.4 Intake & Output: Intake and Output for Last 24 Hours 07/02/24 07/03/24 07/04/24 23:59 23:59 23:59 Intake Total 500 / 500 Balance 500 / 500 Lab / Micro Data 07/04/24 09:50 07/04/24 07:24 Labs: Laboratory Results - last 24 hr 07/03/24 14:48: WBC 8.4, RBC 3.49 L, Hgb 9.7 L, Hct 31.6 L, MCV 90.5, MCH 27.8, MCHC 30.7 L, RDW Std Deviation 53.8 H, RDW Coeff of Lizett 16.5 H, Plt Count 140 L, MPV 12.2 H, Immature Gran % (Auto) 0.400, Neut % (Auto) 56.1, Lymph % (Auto) 26.3, Wood % (Auto) 8.7, Eos % (Auto) 7.2 H, Baso % (Auto) 1.3 H, Absolute Neuts (auto) 4.7, Absolute Lymphs (auto) 2.20, Nucleated RBC % 0, Sodium 138, Potassium 3.5, Chloride 99, Carbon Dioxide 33.0 H, Anion Gap 6, BUN 25 H, C reatinine 4.76 H, Estim Creat Clear Calc 7.37, Est GFR (MDRD) Af Amer 11 L, Est GFR (MDRD) Non-Af 9 L, BUN/Creatinine Ratio 5.3 L, Glucose 118 H, Calcium 8.1 L, Troponin I High Sens 46 07/03/24 15:32: Lactic Acid 1.3 07/03/24 17:15: Troponin I High Sens 42 Physical Exam Const alert and no apparent distress Constitutional Narrative: TTP over left anterior chest w/o noted swelling. HEENT head/scalp atraumatic and moist oral mucous membranes Resp normal respiratory effort, no retractions, no use of accessory muscles and clear to auscultation bilaterally Resp Narrative: lying in bed Cardio regular rate, regular rhythm, S1 normal heart sound and S2 normal heart sound GI normal to inspection, nondistended, normoactive bowel sounds, soft to palpation, non-tender, non-distended and hepatosplenomegaly Extremity Extremity Narrative: palpable thrill in LUE fistula. Neuro Sensorium / Orientation: awake and alert Assessment & Plan Assessment/Plan (1) Complication, dialysis catheter clot or failure: (2) Acute hypotension: (3) Syncope and collapse: PLAN: Plan Syncope * likely vasovagal and not cardiac arrest. Continue telemetry. * follow up echo * consider adding midodrine to HD days and/or hold antihypertensives on those days. Anterior chest edema * unclear what had happened, but concerning that the fluid she received through her fistula may have extravasated. Appears improved. * Seen by vascular surgery, and no need for intervention at this time on her fistula. ABLA * had bleeding from her fistula, since resolved * Hg dropped from 9.7 to 7.9. Monitor for now. Chronic conditions: * End-stage renal disease on dialysis-Patient was at dialysis on the day of presentation-Tuesday dialysis-Patient only had 20 minutes left on her session today when they stopped dialysis due to her hypotension- Continue home binders-Patient follows with Dr. 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 * Glaucoma-Continue home eyedrops * Chronic HFpEF-Diastolic in pmooga-Tjypdowvnic-Fewvlool for volume management * COPD/asthma-Continue home inhalers * Dementia-Continue home memantine DVT prophylaxis -Subcu heparin every 8 hours CODE STATUS -Full code per discussion prior to admission with family at the time of admission Charges/Coding Visit Charges Inpatient E&M: 26465 Subs Hosp L2
[2024-07-04 08:21] LABS: Absolute Lymphocyte Count 2.51 X10^3/uL (0.83-4.51); Absolute Neutrophil Count 4.1 X10^3/uL (2.0-7.7); Basophil# 0.08 X10^3/uL; Eosinophil# 0.51 X10^3/uL; Eosinophils% 6.3 % (0-5); Hematocrit 25.6 % (37-47); Hemoglobin 7.6 g/dL (12.0-15.0); Lymphocyte # 2.51 X10^3/ul (0.83-4.51); Lymphocyte % 30.8 % (19-41); Mean Corp Hgb Conc 29.7 g/dL (32-36); Mean Corpuscular Hgb 27.4 pg (27.0-32.0); Mean Corpuscular Volume 92.4 fL (81-99); Monocyte# 0.91 X10^3/uL; Monocyte% 11.2 % (0-10); NRBC Flagged by Analyzer 0.4 % (0-5); Neutrophil % 50.3 % (47-70); Platelet Count 123 K/mm3 (150-450); RBC Distribution Width CV 16.8 % (11.6-14.6); RBC Distribution Width SD 56.1 fl (35.1-43.9); Red Blood Count 2.77 M/mm3 (4.2-5.4); White Blood Count 8.1 K/mm3 (4.4-11.0)
--- NOTE | 2024-07-04 08:46 | CON.PCM.RE_ITS ---
Assessment & Plan Assessment/Plan (1) ESRD on hemodialysis: PLAN: HD TTS, next dialysis . AVF with good thrill and bruit. (2) Cardiac arrest: PLAN: back to baseline (3) Syncope and collapse: PLAN: due to CPA (4) Dementia: (5) History of CVA (cerebrovascular accident): (6) Acute hypotension: (7) Essential hypertension: PLAN: stableBP (8) halfway resident: (9) halfway resident: HPI Consult Data Date of Consult: 07/04/24 HPI Narrative Reason for Consultation: ESRD HD TTS, renal mgmt HPI Narrative: LOUISE ZAVALA, is a 89 F [address] presents to [facility] ED via squad 07/03/24 after cardiac arrest on dialysis yesterday. She became unresponsive with hypotension and no pulse. EMS was called and CPR was initiated. She had slight infiltration of her AVF while being resuscitated with iv hydration at dialysis center. She became conscious shortly after resuscitation. AVF with good thrill and bruit, minimal infiltration. She received most of her treatment yesterday except for last 18min of treatment. Labs stable, vitals stable today. Echo completed. She has dementia and is a resident of [facility]. She is a poor historian. She has a history of multiple strokes, hypertension. Pt nephew at bedside. Spoke with pt daughter over phone at bedside. She voices she wants to be left alone and wants to eat. [facility] Medical History TIA (transient ischemic attack) Anemia Hypertension ESRD (end stage renal disease) on dialysis Problem with dialysis access Chronic diastolic (congestive) heart failure End-stage renal disease (ESRD) History of CVA (cerebrovascular accident) (12/15/19) Essential hypertension Problem with dialysis access Respiratory failure with hypoxia Iron deficiency anemia RENAL FAILURE STAGE 6 Chronic renal failure, stage 5 Dementia Elevated troponin I level Metabolic acidosis Acute respiratory failure with hypoxia Anemia Iron deficiency anemia Chronic kidney disease (CKD) stage G5/A1, glomerular filtration rate (GFR) less than or equal to 15 mL/min/1.73 square meter and albuminuria creatinine ratio less than 30 mg/g Cough Shortness of breath Cerebellar infarct Speech apraxia Asthma Glaucoma Obesity (BMI 30.0-34.9) Hyperlipidemia Home Medications ?Medication ?Instructions ?Recorded ?Last Taken ?Type timolol maleate 0.5 % eye drops 1 drp EACH EYE BID GLA UCOMA 11/26/15 03/15/23 History levothyroxine 100 mcg tablet 100 mcg PO DAILY thyroid 07/31/19 03/15/23 History isosorbide mononitrate 60 mg 60 mg PO SUMOWEFR HTN 10/0903/14/23 History tablet,extended release 24 hr nifedipine 60 mg tablet,extended 60 mg PO DAILY BLOOD PRESSURE 05/12/21 03/15/23 History release albuterol sulfate 90 mcg/actuation 2 inh inhalation Q4 H PRN Shortness 07/17/22 Unknown History aerosol inhaler Of Breath aspirin 81 mg tablet,delayed 81 mg PO DAILY HEART HEAL TH 07/17/22 03/15/23 History release budesonide-formoterol HFA 160 1 inh inhalation QHS RAYSHAWN RTNESS OF 07/17/22 03/14/23 History mcg-4.5 mcg/actuation aerosol BREATH inhaler dextran 70-hypromellose 0.1 %-0.3 1 drp ophthalmic (ey e) QHS 07/17/22 03/14/23 History % eye drops albuterol sulfate 2.5 mg/3 mL 2.5 mg continuous nebuli zation Q4H 12/05/22 Unknown History (0.083 %) solution for nebulization PRN SOB/Wheezing clopidogrel 75 mg tablet 75 mg PO DAILY #30 tabs 11/2003/15/23 Rx atorvastatin 20 mg tablet 40 mg (2 x 20 mg) PO DAILY 1 03/14/23 Rx CHOLESTEROL #1 TAB acetaminophen 500 mg capsule 500 mg PO Q6H PRN fever o r pain 08/29/23 Unknown History bisacodyl 10 mg rectal suppository 10 mg CA DAILY PRN constipation 08/29/23 Unknown History donepezil 10 mg tablet 10 mg PO DAILY 08/29/23 Unkn own History magnesium hydroxide 400 mg/5 mL 5 ml PO DAILY PRN cons tipation 08/29/23 Unknown History oral suspension (Milk of Magnesia) mineral oil (Fleet Mineral Oil 118 ml CA DAILY PRN con stipation 09/12/23 Unknown History enema) memantine 5 mg tablet 5 mg PO BID 03/12/24 Unknown History sevelamer carbonate 800 mg tablet 800 mg PO TID Unknown History vitamin B complex-vitamin C-folic 1 tab DAILY 07/03/24 Unknown History acid 0.8 mg tablet (Nephro-Jean Paul) Allergy/AdvReac Type Severity Reaction Status Date / Time erythromycin base Allergy Rash Verified 05/30/24 14:09 lisinopril Allergy Unknown Verified 05/30/24 14:09 NSAIDS (Non-Steroidal Allergy Other Verified 05/30/24 14:09 Anti-Inflamma Salicylates Allergy Other Verified 05/30/24 14:09 Family History Mother Colon cancer Hypertension Father Hypertension Surgical History History of loop recorder (07/20/19) s/p left AV fistula creation (02/19/19) Hx of foot surgery Hx of thyroidectomy Hx of cataract extraction Hx of hysterectomy Social History Smoking Status: Never smoker alcohol intake: never substance use type: does not use caffeine: Yes what type of physical activity do you participate in: none frequency: does not exercise Physical Exam Const alert Constitutional Narrative: oriented to person, nephew at bedside but don't know his name General Appearance: well developed HEENT normocephalic Neck supple Resp no use of accessory muscles and clear to auscultation bilaterally Cardio regular rate GI non-tender and non-distended Auscultation: normoactive bowel sounds Palpation: soft Extremity no clubbing, cyanosis or edema General Extremity: AV fistula Skin no wounds Neuro Sensorium / Orientation: awake Psych Psych Narrative: dementia Memory / Cognition: cognition impaired Lab / Micro Data Attestation: I reviewed the patient's lab results. 07/04/24 09:50 07/04/24 07:24 Labs: Laboratory Results - last 24 hr 07/03/24 14:48: WBC 8.4, RBC 3.49 L, Hgb 9.7 L, Hct 31.6 L, MCV 90.5, MCH 27.8, MCHC 30.7 L, RDW Std Deviation 53.8 H, RDW Coeff of Lizett 16.5 H, Plt Count 140 L, MPV 12.2 H, Immature Gran % (Auto) 0.400, Neut % (Auto) 56.1, Lymph % (Auto) 26.3, Rock % (Auto) 8.7, Eos % (Auto) 7.2 H, Baso % (Auto) 1.3 H, Absolute Neuts (auto) 4.7, Absolute Lymphs (auto) 2.20, Nucleated RBC % 0, Sodium 138, Potassium 3.5, Chloride 99, Carbon Dioxide 33.0 H, Anion Gap 6, BUN 25 H, C reatinine 4.76 H, Estim Creat Clear Calc 7.37, Est GFR (MDRD) Af Amer 11 L, Est GFR (MDRD) Non-Af 9 L, BUN/Creatinine Ratio 5.3 L, Glucose 118 H, Calcium 8.1 L, Troponin I High Sens 46 07/03/24 15:32: Lactic Acid 1.3 07/03/24 17:15: Troponin I High Sens 42 07/04/24 07:24: WBC 8.1, RBC 2.77 L, Hgb 7.6 L, Hct 25.6 L, MCV 92.4, MCH 27.4, MCHC 29.7 L, RDW Std Deviation 56.1 H, RDW Coeff of Lizett 16.8 H, Plt Count 123 L, MPV 12.0, Immature Gran % (Auto) 0.400, Neut % (Auto) 50.3, Lymph % (Auto) 30.8, Rock % (Auto) 11.2 H, Eos % (Auto) 6.3 H, Baso % (Auto) 1.0, Absolute Neuts (auto) 4.1, Absolute Lymphs (auto) 2.51, Nucleated RBC % 0.4
[2024-07-04 08:59] LABS: ALB/GLOB Ratio 0.8 RATIO (0.9-2.4); AST(SGOT) 17 U/L (15-37); Alanine Aminotransfer ALT/SGPT 15 U/L (13-56); Albumin, Serum 2.4 g/dL (3.2-5.0); Alkaline Phosphatase 56 U/L (45-117); Anion Gap 8 (5-15); BUN 35 mg/dL (7-18); BUN/Creat Ratio 5.5 RATIO (10-20); Calcium,Total 7.8 mg/dL (8.5-10.1); Chloride 104 mmol/L (98-107); Creatinine, Serum 6.32 mg/dL (0.55-1.02); EST Glomerular Filtration Rate 7 mL/min (>60); Est Glom Filt Rate - Afr Amer 8 mL/min (>60); Estimated Creatinine Clearance 5.09 ml/min; Globulin 3.2 g/dL (2.2-4.2); Glucose 74 mg/dL (74-106); Magnesium 2.3 mg/dL (1.6-2.6); Phosphorus 3.1 mg/dL (2.5-4.9); Potassium 4.3 mmol/L (3.5-5.1); Protein, Total 5.6 g/dL (6.4-8.2); Sodium Level 137 mmol/L (136-145)
--- NOTE | 2024-07-04 09:25 | CASEMGMT ---
Addendum entered by Nina Trejo 07/04/24 09:41: Pt is a bedhold and no precert will be needed. Nina Trejo DC Planning Asst. Original Note: Updates sent to [facility] with note asking if pt will need precert to return. Nina Trejo DC Planning Asst.
--- NOTE | 2024-07-04 09:51 | CASEMGMT ---
Patient is from [place] at [facility] [place]. SW called patient's daughter [place] and confirmed the plan is for patient to return to [place] at discharge. Plan: d/c back to [place] under intermediate level of care. Physicians will transport patient. Deanne LEMUS
[2024-07-04] MEDS: NIFEdipine 60 MG Tablet PO (09:54)
[2024-07-04] MEDS: Isosorbide Mononitrate 60 MG Tablet PO (09:54)
[2024-07-04] MEDS: Aspirin E.C. 81 MG Tablet PO (09:54)
[2024-07-04] MEDS: Clopidogrel Bisulfate 75 MG Tablet PO (09:54)
[2024-07-04] MEDS: Memantine Hydrochloride 5 MG Tablet PO ×2 (09:54→21:48)
[2024-07-04] MEDS: Donepezil HCl 10 MG Tablet PO (09:54)
[2024-07-04] MEDS: SEVELAMER CARBONATE 800 MG TABLET PO ×3 (09:54→17:47)
[2024-07-04] MEDS: Timolol 0.5% 5ML OPTH.BTL 1 DRP EACH EYE ×2 (09:55→21:48)
[2024-07-04 10:23] LABS: Eosinophils% 6.7 % (0-5); Hematocrit 25.3 % (37-47); Hemoglobin 7.9 g/dL (12.0-15.0); Lymphocyte % 29.9 % (19-41); Mean Corp Hgb Conc 31.2 g/dL (32-36); Mean Corpuscular Hgb 28.4 pg (27.0-32.0); Mean Platelet Vol. 12.4 fl (6.2-12.0); Monocyte% 6.6 % (0-10); Neutrophil % 55.2 % (47-70); Platelet Count 130 K/mm3 (150-450); RBC Distribution Width CV 16.7 % (11.6-14.6); RBC Distribution Width SD 55.7 fl (35.1-43.9); Red Blood Count 2.78 M/mm3 (4.2-5.4); White Blood Count 8.1 K/mm3 (4.4-11.0)
[2024-07-04 10:24] LABS: Absolute Lymphocyte Count 2.42 X10^3/uL (0.83-4.51); Absolute Neutrophil Count 4.5 X10^3/uL (2.0-7.7); Basophil# 0.09 X10^3/uL; Basophil% 1.1 % (0-1); Eosinophil# 0.54 X10^3/uL; Lymphocyte # 2.42 X10^3/ul (0.83-4.51); Monocyte# 0.53 X10^3/uL; NRBC Flagged by Analyzer 0 % (0-5); Neutrophil # 4.47 X10^3/uL (2.7-7.7)
[2024-07-04] MEDS: Ensure Plus High Protein 120 ML LIQUID PO ×2 (17:47→21:59)
[2024-07-04] MEDS: Glycerin/Hypromellose/PEG400 15 ml Bottle 1 DRP EACH EYE (21:47)
[2024-07-04] MEDS: Atorvastatin Calcium 40 MG Tablet PO (21:48)
[2024-07-05] VITALS (13 sets, daily range): BP systolic 115–188; BP diastolic 46–73; PULSE 74–88; RESP 14–20; TEMP 36.3–36.8; O2SAT 96–100; BMI 23.8; BMI 23.1
[2024-07-05] MEDS: Heparin Injection (Vial) 5,000 UNIT/ML VIAL 5000 UNIT SC ×2 (06:02→13:54)
[2024-07-05] MEDS: Levothyroxine 100 MCG Tablet PO (06:02)
[2024-07-05] MEDS: Albuterol 2.5 MG/3 ML VIAL.NEB. INHALATION (07:12)
[2024-07-05] MEDS: Budesonide Respules 0.5 MG/2 ML AMPUL.NEB. INHALATION (07:13)
[2024-07-05] MEDS: 0.9% Normal Saline 1,000 ML IV.SOLN. 1000 ML OPERA.SITE (08:22)
[2024-07-05] MEDS: PureFlow B 2K Dialysis Soln 1 BAG 6 BAG PF (08:22)
--- NOTE | 2024-07-05 08:31 | PN.HOSP_ITS ---
Reason for Visit Reason for Visit: Diagnoses Arteriovenous fistula, acquired (07/03/24) Hypotension, unspecified (07/03/24) Syncope and collapse (07/03/24) Other specified complication of vascular prosthetic devices, implants and grafts, initial encounter (07/03/24) Subjective Subjective No issues. Tolerated HD today. Objective Data Objective Data Vital Signs: Vital Signs Temp Pulse Resp BP Pulse Ox O2 Del Method 36.7 C 80 15 137/53 H 100 Room Air 07/05/24 07:35 07/05/24 08:12 07/05/24 08:12 07/05/24 08:12 07/05/24 08:12 07/05/24 08:12 Oxygen Delivery Method Room Air Weight: 61 kg Body Mass Index (BMI) 23.8 Intake & Output: Intake and Output for Last 24 Hours 07/03/24 07/04/24 07/05/24 23:59 23:59 23:59 Intake Total 500 / 500 Balance 500 / 500 Lab / Micro Data 07/05/24 09:10 07/04/24 07:24 Labs: Laboratory Results - last 24 hr 07/04/24 07:24: Sodium 137, Potassium 4.3, Chloride 104, Carbon Dioxide 25.0, Anion Gap 8, BUN 35 H, Creatinine 6.32 H, Estim Creat Clear Calc 5.09, Est GFR (MDRD) Af Amer 8 L, Est GFR (MDRD) Non-Af 7 L, BUN/Creatinine Ratio 5.5 L, Glucose 74, Calcium 7.8 L, Phosphorus 3.1, Magnesium 2.3, Total Bilirubin 0.30, AST 17, ALT 15, Alkaline Phosphatase 56, Total Protein 5.6 L, Albumin 2.4 L, Globulin 3.2, Albumin/Globulin Ratio 0.8 L 07/04/24 09:50: WBC 8.1, RBC 2.78 L, Hgb 7.9 L, Hct 25.3 L, MCV 91.0, MCH 28.4, MCHC 31.2 L D, RDW Std Deviation 55.7 H, RDW Coeff of Lizett 16.7 H, Plt Count 130 L, MPV 12.4 H, Immature Gran % (Auto) 0.500, Neut % (Auto) 55.2, Lymph % (Auto) 29.9, Fisher % (Auto) 6.6, Eos % (Auto) 6.7 H, Baso % (Auto) 1.1 H, Absolute Neuts (auto) 4.5, Absolute Lymphs (auto) 2.42, Nucleated RBC % 0 Physical Exam Const alert and no apparent distress HEENT head/scalp atraumatic and moist oral mucous membranes Resp normal respiratory effort, no retractions and clear to auscultation bilaterally Cardio regular rate, regular rhythm, S1 normal heart sound and S2 normal heart sound GI normal to inspection, nondistended, normoactive bowel sounds, soft to palpation, non-tender and non-distended Extremity Extremity Narrative: fistula LUE with palpable thrill. Assessment & Plan Assessment/Plan (1) Complication, dialysis catheter clot or failure: (2) Acute hypotension: (3) Syncope and collapse: PLAN: Plan Syncope * likely vasovagal and not cardiac arrest. Continue telemetry. * follow up echo shows an EF 60%. * consider adding midodrine to HD days and/or hold antihypertensives on those days. Anterior chest edema * Resolved. I am unclear what had happened, but concerning that the fluid she received through her fistula may have extravasated. Appears improved. * Seen by vascular surgery, and no need for intervention at this time on her fistula. ABLA * had bleeding from her fistula, since resolved * Hg dropped from 9.7 to 7.9, but has remained stable since admission. * No additional work up at this time. Chronic conditions: * End-stage renal disease on dialysis-Patient was at dialysis on the day of presentation-Tuesday dialysis-Patient only had 20 minutes left on her session today when they stopped dialysis due to her hypotension- Continue home binders-Patient follows with Dr. 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 * Glaucoma-Continue home eyedrops * Chronic HFpEF-Diastolic in ckckny-Iofdjcevvml-Inkwgaew for volume management * COPD/asthma-Continue home inhalers * Dementia-Continue home memantine Discharge back to senior care. DW family at bedside.
[2024-07-05] MEDS: Aspirin E.C. 81 MG Tablet PO (08:43)
[2024-07-05] MEDS: SEVELAMER CARBONATE 800 MG TABLET PO ×3 (08:43→16:13)
[2024-07-05] MEDS: Memantine Hydrochloride 5 MG Tablet PO (08:44)
[2024-07-05] MEDS: Donepezil HCl 10 MG Tablet PO (08:44)
[2024-07-05] MEDS: Clopidogrel Bisulfate 75 MG Tablet PO (08:44)
[2024-07-05] MEDS: Timolol 0.5% 5ML OPTH.BTL 1 DRP EACH EYE (08:45)
[2024-07-05 09:39] LABS: Absolute Lymphocyte Count 1.69 X10^3/uL (0.83-4.51); Absolute Neutrophil Count 3.7 X10^3/uL (2.0-7.7); Basophil# 0.07 X10^3/uL; Eosinophil# 0.54 X10^3/uL; Eosinophils% 8.1 % (0-5); Hematocrit 23.8 % (37-47); Hemoglobin 7.4 g/dL (12.0-15.0); Lymphocyte # 1.69 X10^3/ul (0.83-4.51); Lymphocyte % 25.3 % (19-41); Mean Corp Hgb Conc 31.1 g/dL (32-36); Mean Corpuscular Hgb 28.4 pg (27.0-32.0); Mean Corpuscular Volume 91.2 fL (81-99); Mean Platelet Vol. 12.1 fl (6.2-12.0); Monocyte# 0.69 X10^3/uL; Monocyte% 10.3 % (0-10); NRBC Flagged by Analyzer 0 % (0-5); Neutrophil # 3.66 X10^3/uL (2.7-7.7); Platelet Count 130 K/mm3 (150-450); RBC Distribution Width CV 17.1 % (11.6-14.6); RBC Distribution Width SD 54.9 fl (35.1-43.9); Red Blood Count 2.61 M/mm3 (4.2-5.4); White Blood Count 6.7 K/mm3 (4.4-11.0)
[2024-07-05] MEDS: Epoetin Alfa epbx 10,000 UNIT/ML 10000 UNIT IV (09:41)
--- NOTE | 2024-07-05 09:45 | PCM.PN.REN ---
Subjective Subjective seen on dialysis, access working well so far without infiltration. Blood flow good. Objective Data Objective Data Vital Signs: Vital Signs Temp Pulse Resp BP Pulse Ox O2 Del Method 98.1 F 74 14 160/58 H 100 Room Air 07/05/24 07:35 07/05/24 09:42 07/05/24 09:42 07/05/24 09:42 07/05/24 09:42 07/05/24 09:42 Oxygen Delivery Method Room Air Weight: 61 kg Body Mass Index (BMI) 23.8 Intake & Output: Intake and Output for Last 24 Hours 07/03/24 07/04/24 07/05/24 23:59 23:59 23:59 Intake Total 500 / 500 Balance 500 / 500 Lab / Micro Data 07/05/24 09:10 07/04/24 07:24 Labs: Laboratory Results - last 24 hr 07/04/24 09:50: WBC 8.1, RBC 2.78 L, Hgb 7.9 L, Hct 25.3 L, MCV 91.0, MCH 28.4, MCHC 31.2 L D, RDW Std Deviation 55.7 H, RDW Coeff of Lizett 16.7 H, Plt Count 130 L, MPV 12.4 H, Immature Gran % (Auto) 0.500, Neut % (Auto) 55.2, Lymph % (Auto) 29.9, Kinney % (Auto) 6.6, Eos % (Auto) 6.7 H, Baso % (Auto) 1.1 H, Absolute Neuts (auto) 4.5, Absolute Lymphs (auto) 2.42, Nucleated RBC % 0 07/05/24 09:10: WBC 6.7, RBC 2.61 L, Hgb 7.4 L, Hct 23.8 L, MCV 91.2, MCH 28.4, MCHC 31.1 L, RDW Std Deviation 54.9 H, RDW Coeff of Lizett 17.1 H, Plt Count 130 L, MPV 12.1 H, Immature Gran % (Auto) 0.300, Neut % (Auto) 55.0, Lymph % (Auto) 25.3, Kinney % (Auto) 10.3 H, Eos % (Auto) 8.1 H, Baso % (Auto) 1.0, Absolute Neuts (auto) 3.7, Absolute Lymphs (auto) 1.69, Nucleated RBC % 0 Physical Exam Narrative dementia Const alert Resp clear to auscultation bilaterally Resp Narrative: tenderness to touch on chest wall due to resuscitation Cardio regular rate GI non-tender and non-distended Auscultation: normoactive bowel sounds Palpation: soft Extremity no clubbing, cyanosis or edema Neuro CN's II-XII intact bilaterally Psych cooperative Assessment & Plan Assessment/Plan (1) ESRD on hemodialysis: PLAN: HD today without issues. (2) Cardiac arrest: PLAN: clinically back to baseline (3) Syncope and collapse: PLAN: due to CPA (4) Dementia: (5) History of CVA (cerebrovascular accident): (6) Acute hypotension: PLAN: resolved (7) Essential hypertension: PLAN: stableBP (8) intermediate resident: (9) Anemia: QUALIFIERS: Anemia type: due to chronic kidney disease PLAN: retacrit
[2024-07-05] MEDS: Ensure Plus High Protein 120 ML LIQUID PO ×2 (11:22→13:54)
[2024-07-05] MEDS: NIFEdipine 60 MG Tablet PO (11:22)
--- NOTE | 2024-07-05 13:16 | PCM.TXEXTCAR ---
Diet Diet Order/Speech Therapy: 07/04/24 15:55 Diet: Regular - No Added Salt Routine Orders/Code Status Code Status: Full Code DC O2, CPAP, BIPAP needs Home O2 Discharge instructions: No Therapies Weight Bearing: Full weight bearing Physical Therapy: Eval and Treat Occupational Therapy: Eval and Treat Problem/Diagnosis (1) Complication, dialysis catheter clot or failure: Status: Acute (2) Acute hypotension: Status: Acute Code(s): I95.9 - Hypotension, unspecified (3) Syncope and collapse: Status: Acute Code(s): R55 - Syncope and collapse Plan Syncope likely vasovagal and not cardiac arrest. Continue telemetry. follow up echo shows an EF 60%. consider adding midodrine to HD days and/or hold antihypertensives on those days. Anterior chest edema Resolved. I am unclear what had happened, but concerning that the fluid she received through her fistula may have extravasated. Appears improved. Seen by vascular surgery, and no need for intervention at this time on her fistula. CRISTI had bleeding from her fistula, since resolved Hg dropped from 9.7 to 7.9, but has remained stable since admission. No additional work up at this time. Chronic conditions: End-stage renal disease on dialysis-Patient was at dialysis on the day of presentation-Tuesday dialysis-Patient only had 20 minutes left on her session today when they stopped dialysis due to her hypotension-Continue home binders-Patient follows with Dr. 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 Glaucoma-Continue home eyedrops Chronic HFpEF-Diastolic in ndmehv-Hklvnkbbrlh-Ielkolea for volume management COPD/asthma-Continue home inhalers Dementia-Continue home memantine Discharge back to skilled nursing. DW family at bedside. Allergies/Procedures Done in Hospital Allergies erythromycin base Allergy (Verified 05/30/24 14:09) Rash lisinopril Allergy (Verified 05/30/24 14:09) Unknown NSAIDS (Non-Steroidal Anti-Inflamma Allergy (Verified 05/30/24 14:09) Other Salicylates Allergy (Verified 05/30/24 14:09) Other Procedures: Dialysis Type of Care/Length of Stay Estimated LOS: More Than 30 Days Type of Care Needed: Intermediate Rehab Potential: Fair Prognosis: Good Additional Orders/Day of Discharge Day of Discharge: 07/05/24 Dietary and Speech Recommendations Dietitian Recommendations/Changes: Will liberalize diet to Regular No Added Salt d/t hx of poor po intake, wt loss, dementia and advanced age Will order 4 oz ensure plus 4x/day w/ medpass for increased nutrition if consumed. Discharge Plan Admission Admit Date/Time: 07/03/24 19:58 Primary Reason for Your Visit: Syncope Attending Provider: Jim Jerez Primary Care Provider: Kishan Camejo Consulting Providers: Jim Shepherd; Kianna Patrick; Melody Patrick Instructions Additional Instructions / Restrictions: Hemodialysis every Tuesday, and Tuesday with Dr. Patrick. Discharge Orders/Prescriptions Prescriptions: New Ensure Plus High Protein 0.08 gram-1.5 kcal/mL Liquid 120 ml PO 4X/DAY Qty: 0 0RF Continued levothyroxine 100 mcg tablet 100 mcg PO DAILY nifedipine 60 mg tablet extended release 60 mg PO DAILY mineral oil [Fleet Mineral Oil] Enema 118 ml ID DAILY PRN (Reason: constipation) Rx Instructions: discard any unused portion Rectally every 24 hours as needed for constipation Once daily administer after once daily if no BM 8 hours after receiving suppository, If NO BM WITHIN 1 HOUR AFTER RECEIVNG ENEMA NOTIFY donepezil 10 mg tablet 10 mg PO DAILY magnesium hydroxide [Milk of Magnesia] 400 mg/5 mL suspension 5 ml PO DAILY PRN (Reason: constipation) bisacodyl 10 mg suppository 10 mg ID DAILY PRN (Reason: constipation) acetaminophen 500 mg capsule 500 mg PO Q6H PRN (Reason: fever or pain) memantine 5 mg tablet 5 mg PO BID timolol maleate 1 DROP drops 1 drp EACH EYE BID isosorbide mononitrate 60 MG tablet 60 mg PO SUMOWEFR albuterol sulfate 90 mcg/actuation HFA aerosol inhaler 2 inh INHALATION Q4H PRN (Reason: Shortness Of Breath) Patient Comments: PRN PER MAR budesonide-formoterol 160-4.5 mcg/actuation Hfa Aerosol Inhaler 1 inh INHALATION QHS dextran 70-hypromellose 0.1-0.3 % Drops 1 drp ophthalmic (eye) QHS aspirin 81 MG tablet,delayed release (DR/EC) 81 mg PO DAILY albuterol sulfate 2.5 mg /3 mL (0.083 %) solution for nebulization 2.5 mg continuous nebulization Q4H PRN (Reason: SOB/Wheezing) Patient Comments: PRN PER MAR clopidogrel 75 mg Tablet 75 mg PO DAILY Qty: 30 5RF atorvastatin 20 mg Tablet 40 mg PO DAILY Qty: 1 0RF Nephro-Jean Paul 0.8 mg tablet 1 tab DAILY sevelamer carbonate 800 mg tablet 800 mg PO TID Referrals / Follow Up: Kishan Camejo MD [Primary Care Provider] - Within 2 Weeks Disposition Disposition (needs filled in before D/C Order can be placed): NonSkilled NH/Intermed Care
--- NOTE | 2024-07-05 13:22 | DS.PCM_ITS ---
Providers Date of Admission: 07/03/24 Primary Care Physician: Dr. Kishan Camejo MD Consultations 07/03/24 21:08 Consult: Nephrology Routine Consulting Provider: Kianna Patrick Reason for Consult: ESRD EMERGENT Consult: No Notified: Yes Date Notified: 07/04/24 Time Notified: 06:34 Method of Notification: Text Consult: Vascular Surgery Routine Consulting Provider: Jim Shepherd Reason for Consult: Left upper extremity fistula malfunction EMERGENT Consult: No Notified: Yes Date Notified: 07/03/24 Time Notified: 20:02 Method of Notification: ED Physician Initiated Reason For Visit: SYNCOPE/FISTULA MALFUNCTION Diagnosis Discharge Diagnosis (1) Complication, dialysis catheter clot or failure: Status: Acute (2) Acute hypotension: Status: Acute Code(s): I95.9 - Hypotension, unspecified (3) Syncope and collapse: Status: Acute Code(s): R55 - Syncope and collapse Plan Syncope * likely vasovagal and not cardiac arrest. Continue telemetry. * follow up echo shows an EF 60%. * consider adding midodrine to HD days and/or hold antihypertensives on those days. Anterior chest edema * Resolved. I am unclear what had happened, but concerning that the fluid she received through her fistula may have extravasated. Appears improved. * Seen by vascular surgery, and no need for intervention at this time on her fistula. ABLA * had bleeding from her fistula, since resolved * Hg dropped from 9.7 to 7.9, but has remained stable since admission. * No additional work up at this time. Chronic conditions: * End-stage renal disease on dialysis-Patient was at dialysis on the day of presentation-Tuesday dialysis-Patient only had 20 minutes left on her session today when they stopped dialysis due to her hypotension- Continue home binders-Patient follows with Dr. 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 * Glaucoma-Continue home eyedrops * Chronic HFpEF-Diastolic in drnsks-Azuridcqlcu-Vlfqlfrm for volume management * COPD/asthma-Continue home inhalers * Dementia-Continue home memantine Discharge back to detention. DW family at bedside. Medications at Discharge Home Medications timolol maleate 0.5 % eye drops 1 drp EACH EYE BID GLAUCOMA 11/26/15 levothyroxine 100 mcg tablet 100 mcg PO DAILY thyroid 07/31/19 isosorbide mononitrate 60 mg tablet,extended release 24 hr 60 mg PO SUMOWEFR HTN 10/26/19 nifedipine 60 mg tablet,extended release 60 mg PO DAILY BLOOD PRESSURE 05/12/21 albuterol sulfate 90 mcg/actuation aerosol inhaler 2 inh inhalation Q4H PRN Shortness Of Breath 07/17/22 aspirin 81 mg tablet,delayed release 81 mg PO DAILY HEART HEALTH 07/17/22 budesonide-formoterol HFA 160 mcg-4.5 mcg/actuation aerosol inhaler 1 inh inhalation QHS SHORTNESS OF BREATH 07/17/22 dextran 70-hypromellose 0.1 %-0.3 % eye drops 1 drp ophthalmic (eye) QHS 07/17/22 albuterol sulfate 2.5 mg/3 mL (0.083 %) solution for nebulization 2.5 mg continuous nebulization Q4H PRN SOB/Wheezing 12/05/22 clopidogrel 75 mg tablet 75 mg PO DAILY #30 tabs 12/06/22 atorvastatin 20 mg tablet 40 mg (2 x 20 mg) PO DAILY CHOLESTEROL #1 TAB 03/16/23 acetaminophen 500 mg capsule 500 mg PO Q6H PRN fever or pain 08/29/23 bisacodyl 10 mg rectal suppository 10 mg LA DAILY PRN constipation 08/29/23 donepezil 10 mg tablet 10 mg PO DAILY 08/29/23 magnesium hydroxide 400 mg/5 mL oral suspension (Milk of Magnesia) 5 ml PO DAILY PRN constipation 08/29/23 mineral oil (Fleet Mineral Oil enema) 118 ml LA DAILY PRN constipation 09/12/23 memantine 5 mg tablet 5 mg PO BID 03/12/24 sevelamer carbonate 800 mg tablet 800 mg PO TID 07/03/24 vitamin B complex-vitamin C-folic acid 0.8 mg tablet (Nephro-Jean Paul) 1 tab DAILY 07/03/24 food supplemt, lactose-reduced 0.08 gram-1.5 kcal/mL oral liquid (Ensure Plus High Protein) 120 ml PO 4X/DAY #0 mL 07/05/24 Hospital Course Operations None Procedures Dialysis Summary of Care Provided Minutes Spent on Discharge: 32 Weight / BMI Weight Weight: 59.3 kg Body Mass Index (BMI) 23.1 ABG / Lab / Microbiology Data 07/05/24 09:10 07/04/24 07:24 Laboratory: Laboratory Results - last 24 hr 07/05/24 09:10: WBC 6.7, RBC 2.61 L, Hgb 7.4 L, Hct 23.8 L, MCV 91.2, MCH 28.4, MCHC 31.1 L, RDW Std Deviation 54.9 H, RDW Coeff of Lizett 17.1 H, Plt Count 130 L, MPV 12.1 H, Immature Gran % (Auto) 0.300, Neut % (Auto) 55.0, Lymph % (Auto) 25.3, [place] % (Auto) 10.3 H, Eos % (Auto) 8.1 H, Baso % (Auto) 1.0, Absolute Neuts (auto) 3.7, Absolute Lymphs (auto) 1.69, Nucleated RBC % 0 D/C Instructions Discharge Diet: Renal Diet DC O2, CPAP, BIPAP Needs Home O2 Discharge instructions: No Meaningful Use Info Meaningful Use Meaningful Use Diagnoses (Choose all that apply): None applicable Ischemic Stroke Statin Dosing Therapy Reference: STATIN DOSE THERAPY REFERENCE: * Patients > 75 years receive moderate or high dose statin therapy. * Patients 75 years or YOUNGER should receive HIGH intensity statin dose unless contraindicated. You will be required to document reason for non-treatment if statin daily dose does not meet guidelines. HIGH DOSE STATIN THERAPY DAILY Atorvastatin > than or = to 40 mg Rosuvastatin > than or = to 20 mg Amlodipine + Atorvastatin > than or = to 2.5/40 mg Ezetimibe + Simvastatin 10/80 mg Simvastatin 80mg Discharge Plan Admission Admit Date/Time: 07/03/24 19:58 Primary Reason for Your Visit: Syncope Attending Provider: Jim Jerez Primary Care Provider: Kishan Camejo Consulting Providers: Jim Shepherd; Kianna Patrick; Melody Patrick Instructions Additional Instructions / Restrictions: Hemodialysis every Tuesday, and Tuesday with Dr. Patrick. Discharge Orders/Prescriptions Prescriptions: New Ensure Plus High Protein 0.08 gram-1.5 kcal/mL Liquid 120 ml PO 4X/DAY Qty: 0 0RF Continued levothyroxine 100 mcg tablet 100 mcg PO DAILY nifedipine 60 mg tablet extended release 60 mg PO DAILY mineral oil [Fleet Mineral Oil] Enema 118 ml LA DAILY PRN (Reason: constipation) Rx Instructions: discard any unused portion Rectally every 24 hours as needed for constipation Once daily administer after once daily if no BM 8 hours after receiving suppository, If NO BM WITHIN 1 HOUR AFTER RECEIVNG ENEMA NOTIFY donepezil 10 mg tablet 10 mg PO DAILY magnesium hydroxide [Milk of Magnesia] 400 mg/5 mL suspension 5 ml PO DAILY PRN (Reason: constipation) bisacodyl 10 mg suppository 10 mg LA DAILY PRN (Reason: constipation) acetaminophen 500 mg capsule 500 mg PO Q6H PRN (Reason: fever or pain) memantine 5 mg tablet 5 mg PO BID timolol maleate 1 DROP drops 1 drp EACH EYE BID isosorbide mononitrate 60 MG tablet 60 mg PO SUMOWEFR albuterol sulfate 90 mcg/actuation HFA aerosol inhaler 2 inh INHALATION Q4H PRN (Reason: Shortness Of Breath) Patient Comments: PRN PER MAR budesonide-formoterol 160-4.5 mcg/actuation Hfa Aerosol Inhaler 1 inh INHALATION QHS dextran 70-hypromellose 0.1-0.3 % Drops 1 drp ophthalmic (eye) QHS aspirin 81 MG tablet,delayed release (DR/EC) 81 mg PO DAILY albuterol sulfate 2.5 mg /3 mL (0.083 %) solution for nebulization 2.5 mg continuous nebulization Q4H PRN (Reason: SOB/Wheezing) Patient Comments: PRN PER MAR clopidogrel 75 mg Tablet 75 mg PO DAILY Qty: 30 5RF atorvastatin 20 mg Tablet 40 mg PO DAILY Qty: 1 0RF Nephro-Jean Paul 0.8 mg tablet 1 tab DAILY sevelamer carbonate 800 mg tablet 800 mg PO TID Referrals / Follow Up: Kishan Camejo MD [Primary Care Provider] - Within 2 Weeks Disposition Disposition (needs filled in before D/C Order can be placed): NonSkilled NH/Intermed Care Charges/Coding Visit Charges Inpatient E&M: 81395 Disch Hosp >30min
--- NOTE | 2024-07-05 13:40 | NURSING ---
Report given to Cle[facility] from [facility] at 13:40.
--- NOTE | 2024-07-05 13:50 | CASEMGMT ---
Patient is ready for discharge back to [facility]. Physicians will transport patient via wheelchair van. Plan: d/c back to [facility] under intermediate level of care Deanne LEMUS
--- NOTE | 2024-07-05 13:56 | CASEMGMT ---
Discharge orders, signed med list, and transport time sent to [facility]. Physicians will transport pt by wheelchair at 4:30p. Nursing, SW, pt, and her son updated. Pts son will update siblings. Nina Trejo DC Planning Asst.
--- NOTE | 2024-07-05 14:40 | CHAPLAIN ---
Type of Pastoral Visit _x__ Initial Visit ___ Follow-up Visit ___ On-call Visit ___ General Patient Visit ___ Spiritual Assessment ___ Family Conference ___ Bereavement ___ Rapid Response ___ Code Blue ___ Other (describe below) Pastoral Care Referral From ___ Patient _x__ Family ___ Nurse ___ Physician ___ Firer Gl[place] Kiln ___ Embedded Engineer ___ Other (describe below) Sacrament/Intervention ___ Active listening ___ Anointing ___ Rastafarian ___ Bereavement ___ Communion ___ Lillie exploration ___ ___ Life review _x__ Prayer ___ Reconciliation ___ Sacrament of Sick _x__ Supportive presence ___ Wedding ___ Other (describe below) Pastoral Comments patient is sitting up in the chair; pt looks at this inside wirer but says very little; pt is able to address questions with a nod but does not speak or engage in conversation; pt son gives more insight; pt admits liking it at [facility]; prayer is welcomed; no other needs
== END 2024-07-05 18:00 | disposition intermediate care facility (04) | DRG 312 ==
LOC: ED 18:38 → PCU 21:54
PROVIDERS: Admitting Provider Internal Medicine; Emergency Provider Emergency Medicine; PCP Family Medicine
DX: I95.3 Hypotension of hemodialysis (principal); N18.6 End stage renal disease; I13.2 Hypertensive heart and chronic kidney disease with heart failure and with stage 5 chronic kidney disease, or end stage renal disease; D62 Acute posthemorrhagic anemia; T82.898A Other specified complication of vascular prosthetic devices, implants and grafts, initial encounter; T82.838A Hemorrhage due to vascular prosthetic devices, implants and grafts, initial encounter; I50.32 Chronic diastolic (congestive) heart failure; D63.1 Anemia in chronic kidney disease; F03.90 Unspecified dementia, unspecified severity, without behavioral disturbance, psychotic disturbance, mood disturbance, and anxiety; J44.9 Chronic obstructive pulmonary disease, unspecified; E03.9 Hypothyroidism, unspecified; Z99.2 Dependence on renal dialysis; E78.5 Hyperlipidemia, unspecified; R55 Syncope and collapse; X58.XXXA Exposure to other specified factors, initial encounter; Z79.02 Long term (current) use of antithrombotics/antiplatelets; Z79.82 Long term (current) use of aspirin; Z79.890 Hormone replacement therapy; Z79.899 Other long term (current) drug therapy; Z86.73 Personal history of transient ischemic attack (TIA), and cerebral infarction without residual deficits
CPT/HCPCS: 80048; 80053; 83605; 83735; 84100; 84484; 85025; 90937; 93306; 94640; 94668; 97162; 97166; 97530; 97535; 99252; 99285; A4216; G0257; G0463; Q5106

== ENCOUNTER 2025-01-18 18:47 | Emergency (ER) | payer MEDICARE, MEDICAID, SELFPAY ==
[2025-01-18 18:48] VITALS: BP 165/66; PULSE 82; RESP 16; TEMP 36.6; O2SAT 98
[2025-01-18 19:32] VITALS: BMI 23.1
--- NOTE | 2025-01-18 19:53 | EX.ED.DYSGE1 ---
HPI History of Present Illness Chief Complaint: General Illness Informant: patient and family (Daughter and I believe son are in the room.) Onset/Context/Timing Onset: Today Timing: Continuous Current Severity: Moderate Maximum Severity: Moderate Narrative Narrative: 89-year-old female history of dementia history of end-stage renal disease on dialysis Tuesday. History of stroke and CHF. History of glaucoma for which she had surgery I believe the both eyes according to daughter. Today unsure the exact time patient started having redness and watering of her left eye. States she cannot see out of her left eye. Reportedly no trauma. She wears glasses at times does not wear contacts. There is no discharge. She is also recently had a cough. Prior similar symptoms: No Recent Illness/Hospitalization: No PFSH PFSH Medical History group home resident AV fistula group home resident ESRD on hemodialysis Anemia TIA (transient ischemic attack) Hypertension ESRD (end stage renal disease) on dialysis Problem with dialysis access Chronic diastolic (congestive) heart failure End-stage renal disease (ESRD) History of CVA (cerebrovascular accident) (12/15/19) Essential hypertension Problem with dialysis access Respiratory failure with hypoxia Iron deficiency anemia RENAL FAILURE STAGE 6 Chronic renal failure, stage 5 Dementia Elevated troponin I level Metabolic acidosis Acute respiratory failure with hypoxia Anemia Iron deficiency anemia Chronic kidney disease (CKD) stage G5/A1, glomerular filtration rate (GFR) less than or equal to 15 mL/min/1.73 square meter and albuminuria creatinine ratio less than 30 mg/g Cough Shortness of breath Cerebellar infarct Speech apraxia Asthma Glaucoma Obesity (BMI 30.0-34.9) Hyperlipidemia Home Medications ?Medication ?Instructions ?Recorded ?Last Taken ?Type timolol maleate 0.5 % eye drops 1 drp EACH EYE BID GLAUCOMA 11/26/15 03/15/23 History levothyroxine 100 mcg tablet 100 mcg PO DAILY thyroid 07/31/19 03/15/23 History isosorbide mononitrate 60 mg 60 mg PO SUMOWEFR HTN 10/26/19 03/14/23 History tablet,extended release 24 hr nifedipine 60 mg tablet,extended 60 mg PO DAILY BLOOD PRESSURE 05/12/21 03/15/23 History release albuterol sulfate 90 mcg/actuation 2 inh inhalation Q4H PRN Shortness 07/17/22 Unknown History aerosol inhaler Of Breath budesonide-formoterol HFA 160 1 inh inhalation QHS SHORTNESS OF 07/17/22 03/14/23 History mcg-4.5 mcg/actuation aerosol BREATH inhaler dextran 70-hypromellose 0.1 %-0.3 1 drp ophthalmic (eye) QHS eye 07/17/22 03/14/23 History % eye drops health albuterol sulfate 2.5 mg/3 mL 2.5 mg continuous nebulization Q4H 12/05/22 Unknown History (0.083 %) solution for nebulization PRN SOB/Wheezing clopidogrel 75 mg tablet 75 mg PO DAILY anti platelet #30 12/06/22 03/15/23 Rx tabs atorvastatin 20 mg tablet 40 mg (2 x 20 mg) PO DAILY 03/16/23 03/14/23 Rx CHOLESTEROL #1 TAB acetaminophen 500 mg capsule 500 mg PO Q6H PRN fever or pain 08/29/23 Unknown History bisacodyl 10 mg rectal suppository 10 mg VT DAILY PRN constipation 08/29/23 Unknown History donepezil 10 mg tablet 10 mg PO DAILY mentation 08/29/23 Unknown History magnesium hydroxide 400 mg/5 mL 5 ml PO DAILY PRN constipation 08/29/23 Unknown History oral suspension (Milk of Magnesia) mineral oil (Fleet Mineral Oil 118 ml VT DAILY PRN constipation 09/12/23 Unknown History enema) memantine 5 mg tablet 5 mg PO BID mentation 03/12/24 Unknown History sevelamer carbonate 800 mg tablet 800 mg PO TID kidney disease 07/03/24 Unknown History vitamin B complex-vitamin C-folic 1 tab DAILY 07/03/24 Unknown History acid 0.8 mg tablet (Nephro-Jean Paul) food supplemt, lactose-reduced 120 ml PO 4X/DAY #0 mL 07/05/24 Unknown Rx 0.08 gram-1.5 kcal/mL oral liquid (Ensure Plus High Protein) Allergy/AdvReac Type Severity Reaction Status Date / Time erythromycin base Allergy Rash Verified 01/18/25 18:48 lisinopril Allergy Unknown Verified 01/18/25 18:48 NSAIDS (Non-Steroidal Allergy Other Verified 01/18/25 18:48 Anti-Inflamma Salicylates Allergy Other Verified 01/18/25 18:48 Family History Mother Colon cancer Hypertension Father Hypertension Surgical History History of loop recorder (07/20/19) s/p left AV fistula creation (02/19/19) Hx of foot surgery Hx of thyroidectomy Hx of cataract extraction Hx of hysterectomy Social History Smoking Status: Never smoker alcohol intake: never substance use type: does not use caffeine: Yes what type of physical activity do you participate in: none frequency: does not exercise ROS ROS ED ROS Narrative Well. Redness.. Consultation. Limited due to the patient's dementia and mental status. Review of Systems ROS Unobtainable: due to mental status Constitutional Constitutional ED: Denies chills or fever(s) Eyes Eyes: Denies blurry vision ENT ENT ED: Denies ear pain Cardiovascular Cardiovascular: Denies chest pain or palpitations Respiratory/Chest Respiratory/Chest: Reports cough Gastrointestinal Gastrointestinal: Denies abdominal pain Genitourinary Genitourinary ED: Denies dysuria or hematuria Musculoskeletal Musculoskeletal: Denies arthralgias Integumentary Denies abscess Neurologic Neurologic: Denies headache(s) Psychiatric Psychiatric: Denies anxiety or depression Endocrine Endocrinology: Denies cold intolerance Hematologic/Lymphatic Hematologic/Lymphatic: Denies none Allergic/Immunologic Allergic/Immunologic ED: Denies mouth swelling, tongue swelling or urticaria EXAM Physical Exam Narrative Exam Narrative: 89-year-old female sitting upright in bed. Vital signs stable afebrile. Pulse ox 98% on room air no hypoxia. Family at bedside. H EENT exam pupils round react light. Extra motions are intact. Left eye is injected. Red. There is a lot of tearing. No discharge. No orbital or periorbital cellulitis. No preauricular lymphadenopathy. No discharge. No obvious signs of trauma. Lungs clear to auscultation bilaterally. Heart regular rhythm rate about 80. Chest wall ribs nontender. Abdomen soft nontender. Moving all 4 extremities. Normal ingredient scaler helper strength. Normal dorsi plantarflexion. Trace ankle edema. Neurologically she is awake. She is answering limited questions. Her daughter sitting at bedside she does not know her daughter's name. This is her baseline confusion. Const Vital Signs: 01/18/25 18:48 01/18/25 19:34 01/18/25 20:47 Temperature 97.8 F Temperature Source Oral Pulse Rate 82 88 Respiratory Rate 16 16 Respiratory Pattern Normal Blood Pressure 165/66 H 172/72 H Blood Pressure Mean 99 105 Pulse Ox 98 99 Oxygen Delivery Method Room Air Room Air 01/18/25 22:00 Temperature Temperature Source Pulse Rate 90 Respiratory Rate 16 Respiratory Pattern Blood Pressure 147/76 H Blood Pressure Mean 99 Pulse Ox 99 Oxygen Delivery Method Room Air Positive well nourished and well developed; Negative for cachectic, contractures or unkempt General Appearance ED: well developed and NAD; Negative for unkempt, cachectic, contractures, cyanotic, diaphoretic or pallor Nutritional Appearance: Negative for cachectic HEENT Reports moist mucous membranes Negative for trauma or tenderness Eyes PERRL and EOMs intact bilaterally Eyes Narrative: Left eye injected. Watering. No cloudiness or steaming of the cornea. No obvious foreign body or corneal abrasion. Neck no lymphadenopathy, supple and no JVD Chest Wall inspection of chest normal and palpation of chest normal Resp normal respiratory effort and clear to auscultation bilaterally Cardio regular rate, regular rhythm, S1 normal heart sound and S2 normal heart sound GI normal to inspection, nondistended, normoactive bowel sounds, non-tender, non-distended and no masses Auscultation: normoactive bowel sounds Palpation: soft Back/Spine no CVA tenderness General Back: Negative for CVA tenderness Cervical Spine: Negative for cervical spine tenderness Thoracic Spine / Upper Back: Negative for thoracic spinal tenderness Extremity Negative for normal to inspection Extremity Narrative: Trace ankle edema. Nontender no deformity. General Extremety ED: Yes edema General Extremity: edema Neuro No oriented x3 and No no sensory deficits noted Neuro Narrative: Dementia. Confused. States she cannot see out of her left eye. Answering questions. Following commands. Sensorium / Orientation: alert and orientation impaired Motor Exam: strength 5/5 throughout Psych mental status grossly normal Appearance: Negative for unkempt Skin no rashes or lesions noted and no wounds General Skin Exam: Negative for jaundice or pallor Lesions: No lesion noted Rashes: No rashes noted Trauma: Negative for abrasion Wounds: Negative for wounds noted MDM MDM MDM Narrative Medical decision making narrative: 89-year-old female with left eye redness and watering. Appears to be conjunctivitis. But states she cannot see out of the left eye. Exam is somewhat limited due to her dementia. Do not believe we will be able to get an actual visual acuity. Currently our slit-lamp is not available. Left eye tetracaine was instilled in the left eye. Then fluorescein. There was no signs of any corneal abrasion. The left pupil does not seem to be very reactive to light at this time. Extra motions are intact. I do not see a foreign body. I do not see any purulent discharge. I do not see a corneal abrasion. I do not see an ulcer. I did do with the Pan-Pen eye pressures on the left eye they were 72, 73 and 89. I discussed with Dr. Avila ophthalmology. He wants to treat this as a conjunctivitis. He said given the patient's age and current loss of vision he said he does not think any type of emergent procedure would be of benefit for tonight. He will see her tomorrow morning in his office. I discussed this with the patient's daughters comfortable with the plan. Will place erythromycin ointment in her left eye due to conjunctivitis. Show further evaluation tomorrow with her dryerman/woman she is already on eyedrops for glaucoma. And he will further evaluate her tomorrow in his office. History & Record Review Discussion w/independent historian: Patient and Family (Daughter at bedside.) Additional record(s) reviewed:: Prior inpatient record, Prior outpatient record, Prior ED visit and Prior labs Lab Data Attestation: I reviewed the patient's lab results. Lab results narrative: CBC shows white count 8. H&H 10.6 and 33 which is her baseline. Platelets 131. Electrolytes show a potassium of 5.2. Gap 14. BUN and creatinine 64 and 6.2 again consistent with her dialysis history. Glucose 113. Labs: Laboratory Results - last 24 hr 01/18/25 20:02 WBC 8.2 RBC 3.90 L Hgb 10.6 L Hct 33.4 L MCV 85.6 MCH 27.2 MCHC 31.7 L RDW Std Deviation 50.4 H RDW Coeff of Lizett 16.3 H Plt Count 131 L MPV 12.9 H Immature Gran % (Auto) 0.400 Neut % (Auto) 66.0 Lymph % (Auto) 24.6 Bertie % (Auto) 7.0 Eos % (Auto) 1.1 Baso % (Auto) 0.9 Absolute Neuts (auto) 5.4 Absolute Lymphs (auto) 2.02 Nucleated RBC % 0 Differential Comment SCANNED Platelet Estimate SLT DEC Sodium 134 Potassium 5.2 H Chloride 93 L Carbon Dioxide 26.8 Anion Gap 14 BUN 64 H Creatinine 6.20 H Estim Creat Clear Calc 5.19 L* Est GFR (MDRD) Non-Af 6 L BUN/Creatinine Ratio 10.4 Glucose 113 H Calcium 9.2 Radiography Chest X-Ray - ED: 1 View, Read by ED Physician, Read by Radiologist, Lungs, Mediastinum, Bony Structures, Chronic Changes, Cardiomegaly and CHF Diagnostic Testing: Clinical Impression(s) from Imaging Studies Chest X-Ray 01/18/25 20:10 IMPRESSION: No appreciable consolidation or pleural effusion. Prominent cardiomegaly with vascular congestion. Reading Location: [facility] Chest x-ray, portable, single view interpreted by myself and radiologist. Shows cardiomegaly. With vascular congestion. Otherwise no acute process. Chronic changes. Discharge Plan Triage Chief Complaint: General Illness ED Provider: Deric Maravilla Dx/Rx/DC Orders Clinical Impression: Acute eye pain, Conjunctivitis, History of glaucoma, History of dementia, Sudden visual loss, left eye, History of renal dialysis Instructions: ED Conjunctivitis, Nonspecific Prescriptions: No Action levothyroxine 100 mcg tablet 100 mcg PO DAILY nifedipine 60 mg tablet extended release 60 mg PO DAILY mineral oil [Fleet Mineral Oil] Enema 118 ml VT DAILY PRN (Reason: constipation) Rx Instructions: discard any unused portion Rectally every 24 hours as needed for constipation Once daily administer after once daily if no BM 8 hours after receiving suppository, If NO BM WITHIN 1 HOUR AFTER RECEIVNG ENEMA NOTIFY donepezil 10 mg tablet 10 mg PO DAILY magnesium hydroxide [Milk of Magnesia] 400 mg/5 mL suspension 5 ml PO DAILY PRN (Reason: constipation) bisacodyl 10 mg suppository 10 mg VT DAILY PRN (Reason: constipation) acetaminophen 500 mg capsule 500 mg PO Q6H PRN (Reason: fever or pain) memantine 5 mg tablet 5 mg PO BID timolol maleate 1 DROP drops 1 drp EACH EYE BID isosorbide mononitrate 60 MG tablet 60 mg PO SUMOWEFR albuterol sulfate 90 mcg/actuation HFA aerosol inhaler 2 inh INHALATION Q4H PRN (Reason: Shortness Of Breath) Patient Comments: PRN PER MAR budesonide-formoterol 160-4.5 mcg/actuation Hfa Aerosol Inhaler 1 inh INHALATION QHS dextran 70-hypromellose 0.1-0.3 % Drops 1 drp ophthalmic (eye) QHS albuterol sulfate 2.5 mg /3 mL (0.083 %) solution for nebulization 2.5 mg continuous nebulization Q4H PRN (Reason: SOB/Wheezing) Patient Comments: PRN PER MAR clopidogrel 75 mg Tablet 75 mg PO DAILY Qty: 30 5RF atorvastatin 20 mg Tablet 40 mg PO DAILY Qty: 1 0RF Nephro-Jean Paul 0.8 mg tablet 1 tab DAILY sevelamer carbonate 800 mg tablet 800 mg PO TID Ensure Plus High Protein 0.08 gram-1.5 kcal/mL Liquid 120 ml PO 4X/DAY Qty: 0 0RF Primary Care Provider: Kishan Camejo Referrals: Kishan Camejo MD [Primary Care Provider] - Trace Avila MD [Med Staff - Active Staff] - 1 Day (Call Dr. Avila first thing tomorrow morning at 8 AM he will work to get her in his office before she has dialysis to evaluate that high further.) Activity Restrictions/Additional Instructions: Tylenol for pain. Continue to use her glaucoma eyedrops. As prescribed. See Dr. Avila first thing tomorrow morning. Tuesday morning. Call his office at 8 AM. Erythromycin eye ointment twice a day. Print Language: Estonian Disposition Disposition: Home, Self Care
[2025-01-18] MEDS: Tetracaine 0.5% Ophthalmic Bottle 1 DRP LEFT EYE (20:04)
--- NOTE | 2025-01-18 20:10 | RAD_ITS ---
PROCEDURE: CHEST 1 VIEW (PORTABLE) 01/18/2025 REASON FOR EXAM: COUGH TECHNIQUE: Frontal view of the chest. COMPARISON: 03/15/2023 FINDINGS: Lungs/Pleura: No focal consolidation, pneumothorax or sizable pleural effusion. Heart/Mediastinum: Prominent cardiomegaly. Central vascular congestion. Cardiac loop recorder device projects over the left chest wall. Bones/Soft tissues: Degenerative changes of the spine. Left axillary surgical clips. RAD/Chest 1 View (Portable) IMPRESSION: No appreciable consolidation or pleural effusion. Prominent cardiomegaly with vascular congestion. Reading Location: [id number]
[2025-01-18 20:13] LABS: Hematocrit 33.4 % (37-47); Hemoglobin 10.6 g/dL (12.0-15.0); Immature Granulocytes Count 0.030 X10^3/uL (0.0-0.0); Mean Corp Hgb Conc 31.7 g/dL (32-36); Mean Corpuscular Volume 85.6 fL (81-99); Mean Platelet Vol. 12.9 fl (6.2-12.0); NRBC Flagged by Analyzer 0 % (0-5); POSITIVE COUNT YES; Platelet Count 131 K/mm3 (150-450); RBC Distribution Width CV 16.3 % (11.6-14.6); RBC Distribution Width SD 50.4 fl (35.1-43.9); Red Blood Count 3.90 M/mm3 (4.2-5.4); White Blood Count 8.2 K/mm3 (4.4-11.0)
--- OUTSIDE RECORDS SUMMARY | 2025-01-18 20:13 | XMS RPT_ITS | CCD ---
Author Organization [facility] Care Team Providers Care Scale Reclamation Tender Name Role Phone PROVIDER, UNKNOWN Admitting Unavailable PROVIDER, UNKNOWN Attending Unavailable Dr. Wayne Leahy Chi Primary Care Provider Dr. Wayne Leahy Chi Referring Provider Deborah aHider Attending Provider Unavailable Dr. Chang Chandler Attending Provider MD Jey Benitez Emergency Provider Dr. Melody Patrick Admit Provider Dr. Melody Patrick Attending Provider Dr. Melody Patrick Other Provider Dr. iKanna Patrick Other Provider Dr. Michel Lee Other Provider Dr. Lonny Joseph Attending Provider Dr. Lonny Joseph Other Provider Dr. Darnell García Other Provider Dr. Esteban Waddell Other Provider Unavailab jose Mayes BOOKING CLERK, BOOKING CLERK-C Mounika Other Provider Dr. Michel Lee Attending Provider Dr. Micha Feliciano Other Provider Dr. Micha Feliciano Attending Provider Dr. Wayne Leahy Chi Primary Care Provider Dr. Wayne Leahy Chi Referring Provider Ovi ROBLERO, PA Malia Chavarria Attending Provider MD Jey Benitez Emergency Provider Dr. John Lutz Admit Provider Unavailable Dr. John Lutz Attending Provider Unavailable Bolivar, Dr. Lopez Other Provider Unavailable Dr. Kianna Patrick Other Provider Dr. Melody Patrick Attending Provider Dr. Melody Patrick Other Provider Armond, Dr. Wayne Rawls Primary Care Provider Dr. Aristides Liriano Attending Provider Dr. Micha Feliciano Admit Provider Dr. Micha Feliciano Attending Provider Dr. Micha Feliciano Other Provider Armond, Dr. Wayne Rawls Primary Care Provider MD Jey Benitez Emergency Provider Dr. Micha Feliciano Admit Provider Dr. Micha Feliciano Attending Provider Dr. Micha Feliciano Other Provider Dr. Kianna Patrick Other Provider Dr. Kishan Camejo Primary Care Provider Dr. Chang Chandler Attending Provider Armond, Dr. Wayne Rawls Referring Provider Dr. Elkin Presley Attending Provider Armond, Dr. Wayne Rawls Primary Care Provider Dr. Wayne Leahy Chi Referring Provider Dr. Elkin Presley Attending Provider Dr. Kishan Camejo Primary Care Provider Dr. Kishan Camejo Referring Provider ANABELA Wiseman Attending Provider [phone] Armond, Wayne Chi Primary Care Unavailable Chang Chandler Attending Unavailable Armond, Wayne Chi Referring Unavailable Jolie Mosqueda Attending Unavailable Camejo, Kishan Primary Care Unavailable Camejo, Kishan Referring Unavailable Camejo, Kishan Primary Care Unavailable Elkin Presley Attending Unavailable Camejo, Kishan Referring Unavailable Camejo, Kishan Primary Care Unavailable Denise, Liliana Attending Unavailable Joao, Jim Attending Unavailable Camejo, Kishan Primary Care Unavailable Denise, Liliana Referring Unavailable Rutherford, Jim Referring Unavailable Rutherford, Jim Attending Unavailable Rutherford, Jim Consulting Unavailable Cmaejo, Kishan Primary Care Unavailable Joao, Jim Consulting Unavailable Camejo, Kishan Primary Care Unavailable Darnell, Melody Admitting Unavailable Darnell, Melody Attending Unavailable Darnell, Melody Consulting Unavailable Jopperi, Jim Referring Unavailable Denise, Liliana Attending Unavailable Darnell, Kianna Consulting Unavailable Jopperi, Jim Consulting Unavailable Jopperi, Jim Attending Unavailable Camejo, Kishan Primary Care Unavailable Ewa Pittman Attending Unavailabl e Camejo, Kishan Primary Care Unavailable Camejo, Kishan Referring Unavailable Denise, Liliana Attending Unavailable Joao, Jim Referring Unavailable Rutherford, Jim Attending Unavailable Camejo, Kishan Primary Care Unavailable Camejo, Kishan Primary Care Unavailable Denise, Liliana Referring Unavailable Denise, Liliana Attending Unavailable Camejo, Kishan Primary Care Unavailable Sakina Elkin Referring Unavailable Sakina Elkin Attending Unavailable Joao, Jim Attending Unavailable Camejo, Kishan Primary Care Unavailable Joao, Jim Consulting Unavailable Camejo, Kishan Primary Care Unavailable Jopperi, Jim Attending Unavailable Darnell, Melody Admitting Unavailable Darnell, Kianna Consulting Unavailable Darnell, Melody Consulting Unavailable Camejo, Kishan Primary Care Unavailable Lia Chin Referring Unavailable Lia Chin Attending Unavailable Allergies Allergy Classification Reported Allergen(s) Allergy Type Date of Onset Reaction(s) Facility (7 sources) Erythromycin Drug Allergy 1 Rash [facility] (7 sources) Lisinopril Drug Allergy 1 Unknown [facility] (7 sources) Nonsteroidal Anti-inflammatory Compounds Allergy to substance 1 Other [facility] (8 sources) Salicylic Acid; Translations: [Salicylates] Drug Allergy 1 Other [facility] (1 source) PROTEIN IN URINE DRUG Allergy to substance 1 Other [facility] (1 source) Erythromycin Drug Allergy 5 [facility] (1 source) Lisinopril Drug Allergy 5 [facility] (1 source) NSAIDs Drug allergy (disorder) 5 [facility] Medications Current Medications Medication Drug Class(es) Dates Sig (Normalized) Sig (Original) albuterol 0.83 mg/ml inhalation solution (20 sources) beta2-Adrenergic Agonist Start: 12-05-2022 Albuterol Sulfate Active 2.5 MG continuous nebulization Q4H December 05, 2022 12:00am Start: 07-17-2022 Albuterol Sulf ate Active 2 INH INHALATION Q4H July 17, 2022 1:00am Start: 01-12-2019 End: 01-16-2019 take 2.5 mg by inhalation every four hours as needed Albuterol Sulfate Discontinued 2.5 MG IH EVERY 4 HOURS NEEDED January 12, 2019 12:00am January 16, 2019 5:22pm Start: 01-12-2019 End: 01-16-2019 take 1 puff(s) by inhalation every four hours as needed Albuterol Sulfate Discontinued 2 PUFF INHALATION EVERY 4 HOURS NEEDED January 12, 2019 12:00am January 16, 2019 5:22pm Start: 12-27-2014 End: 10-20-2018 take 2.5 mg by inhalation every two hours as needed Albuterol Sulfate Discontinued 2.5 MG INHALATION EVERY 2 HOURS NEEDED May 20, 2016 12:20pm October 20, 2018 1:15pm aspirin 81 mg delayed release oral tablet (20 sources) Platelet Aggregation Inhibitor, Nonsteroidal Anti-inflammatory Drug Start: 07-22-2015 End: 07-17-2022 take 81 mg by mouth once daily Aspirin Active 81 MG PO DAILY July 17, 2022 12:59pm Start: 12-26-2014 End: 12-27-2014 take 81 mg by mouth once daily Aspirin Discontinued 81 MG PO DAILY@0800 December 26, 2014 12:00am December 27, 2014 3:34pm atorvastatin 20 mg oral tablet (20 sources) HMG-CoA Reductase Inhibitor Start: 03-16-2023 take 40 mg by mouth once daily Atorvastatin Active 40 MG PO DAILY March 16, 2023 11:48am Start: 07-17-2022 End: 03-16-2023 take 20 mg by mouth once daily Atorvastatin Discontinu ed 20 MG PO DAILY July 17, 2022 1:00am March 16, 2023 11:48am Start: 02-02-2018 End: 03-12-2020 take 40 mg by mouth at bedtime Atorvastatin Discontinu ed 40 MG PO AT BEDTIME February 02, 2018 12:00am March 12, 2020 11:22am Start: 07-20-2015 End: 02-02-2018 take 20 mg by mouth at bedtime Atorvastatin Discontinu ed 20 MG PO AT BEDTIME July 20, 2015 1:00am February 02, 2018 11:10am Start: 12-27-2014 End: 07-20-2015 take 80 mg by mouth at bedtime Atorvastatin Discontinu ed 80 MG PO AT BEDTIME December 27, 2014 12:00am July 20, 2015 1:43pm Start: 12-26-2014 End: 12-27-2014 take 20 mg by mouth at bedtime Atorvastatin Discontinu ed 20 MG PO AT BEDTIME December 26, 2014 12:00am December 27, 2014 3:34pm B Complex With C 20-Folic Acid (7 sources) Start: 07-17-2022 take 1 capsule by mouth once daily B Complex With C 20-Folic Acid Active 1 CAP PO DAILY July 17, 2022 1:00am Start: 07-17-2022 take 1 capsule by mo [facility] once daily B Complex With C 20-Folic Acid Active 1 CAP PO DAILY July 17, 2022 12:00am Budesonide-Formoterol (20 sources) Corticosteroid, beta2-Adrenergic Agonist Start: 07-17-2022 End: 08-16-2022 Budesonide-Formoterol Discontinued 1 INH INHALATION DAILY July 17, 2022 12:00am August 16, 2022 12:14pm Start: 07-17-2022 Budesonide-For moterol Active 1 INH INHALATION AT BEDTIME July 17, 2022 1:00am Start: 07-17-2022 End: 08-16-2022 Budesonide-Formoterol Discon tinued 1 INH INHALATION DAILY July 17, 2022 1:00am August 16, 2022 1:14pm Start: 07-17-2022 Budesonide-For moterol Active 1 INH INHALATION AT BEDTIME July 17, 2022 12:00am Start: 07-17-2022 Budesonide-For moterol Active 1 INH INHALATION DAILY July 17, 2022 12:00am Start: 01-12-2019 End: 01-16-2019 take 1 puff(s) by inhalation once daily Budesonide-Formoterol Discontinued 1 PUFF INHALATION DAILY January 12, 2019 12:00am January 16, 2019 5:22pm Start: 07-20-2015 End: 10-20-2018 take 1 puff(s) by inhalation once daily as needed Budesonide-Formoterol Discontinued 1 PUFF INHALATION DAILY NEEDED July 20, 2015 1:00am October 20, 2018 2:14pm calcium acetate 667 mg oral capsule (7 sources) Start: 07-14-2019 take 1334 mg by mouth three times daily at mealtime Calcium Acetate(Phosphat Bind) Active 1334 MG PO 3 TIMES DAILY WITH MEALS July 14, 2019 1:00am clopidogrel 75 mg oral tablet (20 sources) [id number] Platelet Inhibitor Start: 12-06-2022 take 75 mg by mouth once daily Clopidogrel Active 75 MG PO DAILY December 06, 2022 12:00am Start: 10-27-2019 End: 11-17-2019 Clopidogrel Discontinued 75 MG PO DAILY October 27, 2019 12:00am November 17, 2019 12:02am Continue for 3 weeks then DC and continue aspirin only. Start: 12-27-2014 End: 10-20-2018 take 75 mg by mouth once daily Clopidogrel Discontinue d 75 MG PO DAILY July 31, 2015 8:54pm October 20, 2018 1:14pm Dextran (14 sources) Start: 07-17-2022 End: 08-16-2022 Dextran 70-Hypromellose Disc ontinued 1 DRP OPHTHALMIC DAILY July 17, 2022 12:00am August 16, 2022 12:14pm Start: 07-17-2022 Dextran 70-Hyp romellose Active 1 DRP OPHTHALMIC AT BEDTIME July 17, 2022 1:00am Start: 07-17-2022 End: 08-16-2022 Dextran 70-Hypromellose Disc ontinued 1 DRP OPHTHALMIC DAILY July 17, 2022 1:00am August 16, 2022 1:14pm Start: 07-17-2022 Dextran 70-Hyp romellose Active 1 DRP OPHTHALMIC AT BEDTIME July 17, 2022 12:00am Start: 07-17-2022 Dextran 70-Hyp romellose Active 1 DRP OPHTHALMIC DAILY July 17, 2022 12:00am Hydrocortisone (7 sources) Corticosteroid Start: 07-17-2022 Hydrocortisone Probutate (Pandel) 0.1 % Cream Active 1 APPLIC TOPICAL Q12H July 17, 2022 12:00am Start: 07-17-2022 Hydrocortisone Probutate (Pandel) 0.1 % Cream Active 1 APPLIC TOPICAL Q12H July 17, 2022 1:00am Start: 07-17-2022 Hydrocortisone Probutate (Pandel) 0.1 % Cream Active 1 APPLIC TOPICAL Q12H July 17, 2022 1:00am 24 hr isosorbide mononitrate 60 mg extended release oral tablet (14 sources) Nitrate Vasodilator Start: 01-16-2019 End: 10-26-2019 Isosorbide Mononitrate Active 60 MG PO SUMOWEFR October 26, 2019 12:28pm levothyroxine sodium 0.1 mg oral tablet (20 sources) l-Thyroxine Start: 07-31-2019 take 100 ug by mouth once daily Levothyroxine Active 100 MCG PO DAILY July 31, 2019 12:00am Start: 01-29-2018 End: 07-31-2019 take 100 ug by mouth once daily Levothyroxine Discontinued 100 MCG PO DAILY January 29, 2018 9:31am July 31, 2019 10:15am Start: 07-20-2015 End: 07-31-2015 take 1 tablet by mouth once daily Levothyroxine (Levoxyl) 75 MCG tablet Discontinued 75 MCG PO DAILY July 20, 2015 1:00am July 31, 2015 9:53pm Start: 12-26-2014 End: 01-29-2018 Levothyroxine Discontinued 5 0 MCG PO SuTuThSa@0600 0 July 31, 2015 12:00am January 29, 2018 8:32am 24 hr NIFEdipine 60 mg extended release oral tablet (14 sources) Dihydropyridine Calcium Channel Cecilia Start: 05-12-2021 take 60 mg by mouth once daily Nifedipine Active 60 MG PO DAILY May 12, 2021 1:00am Start: 03-12-2020 End: 11-03-2020 take 30 mg by mouth once daily Nifedipine Discontinued 30 MG PO DAILY March 12, 2020 12:00am November 03, 2020 1:58pm preservative-free timolol 5 mg/ml ophthalmic solution (7 sources) beta-Adrenergic Cecilia Start: 11-26-2015 Timolo l Maleate Active 1 DRP EACH EYE TWICE A DAY November 26, 2015 12:00am Completed/Discontinued Medications Medication Drug Class(es) Dates Sig (Normalized) Sig (Original) acetaminophen 325 mg / HYDROcodone bitartrate 5 mg oral tablet (14 sources) Opioid Agonist Start: 04-03-2019 End: 04-08-2019 take 1 tablet by mouth every six hours as needed Hydrocodone-Acetami nophen Discontinued 1 TABLET PO EVERY 6 HOURS NEEDED 15 April 03, 2019 April 08, 2019 1:08am Start: 02-19-2019 End: 02-28-2019 take 1 tablet by mouth every six hours as needed Hydrocodone-Acetaminophen Discontinued 1 TABLET PO EVERY 6 HOURS NEEDED 5 February 19, 2019 February 28, 2019 12:08am amLODIPine 5 mg oral tablet (14 sources) Dihydropyridine Calcium Channel Cecilia Start: 01-16-2019 End: 10-26-2019 take 5 mg by mouth once daily Amlodipine Discontinued 5 MG PO DAILY January 16, 2019 12:00am October 26, 2019 1:29pm Start: 12-26-2014 End: 01-16-2019 take 10 mg by mouth once daily Amlodipine Discontinued 10 MG PO DAILY December 26, 2014 12:00am January 16, 2019 5:22pm cefdinir 300 mg oral capsule (7 sources) Cephalosporin Antibacterial Start: 01-12-2019 End: 01-16-2019 take 300 mg by mouth once daily Cefdinir Discontinued 300 MG PO DAILY January 12, 2019 12:00am January 16, 2019 5:22pm stop 01/12/19 Food Supplemt, Lactose-Reduced (7 sources) Start: 05-20-2016 End: 10-20-2018 take 1 mL by mouth four times daily Food Supplemt, Lactose-Reduced Discontinued 120 ML PO 4 TIMES DAILY May 20, 2016 1:00am October 20, 2018 2:13pm Start: 05-20-2016 End: 10-20-2018 take 1 mL by mouth four times daily Food Supplemt, Lactose-Reduced Discontinued 120 ML PO 4 TIMES DAILY May 20, 2016 12:00am October 20, 2018 1:13pm Food Supplemt, Lactose-Reduced (Ensure Complete) 120 ML Liquid (7 sources) Start: 12-27-2014 End: 07-31-2015 take 1 mL by mouth four times daily Food Supplemt, Lactose-Reduced (Ensure Complete) 120 ML Liquid Discontinued 120 ML PO 4 TIMES DAILY December 27, 2014 12:00am July 31, 2015 9:54pm Start: 12-27-2014 End: 07-31-2015 take 1 mL by mouth four times daily Food Supplemt, Lactose-Reduced (Ensure Complete) 120 ML Liquid Discontinued 120 ML PO 4 TIMES DAILY December 26, 2014 11:00pm July 31, 2015 8:54pm glycerin 2 mg/ml / hypromellose 2 mg/ml / polyethylene glycol 400 10 mg/ml ophthalmic solution (7 sources) Non-Standardized Chemical Allergen Start: 05-18-2019 End: 07-31-2019 Peg [id number] Discontinued 1 DRP OP EVERY 2 HOURS NEEDED May 18, 2019 11:53pm July 31, 2019 10:21am guaiFENesin 20 mg/ml oral solution (14 sources) Start: 05-20-2016 End: 10-20-2018 take 1 mL by mouth every six hours as needed Guaifenesin Discontinued 10 ML PO EVERY 6 HOURS NEEDED May 20, 2016 12:24pm October 20, 2018 1:13pm handicap placcard (7 sources) Start: 03-12-2020 End: 03-15-2023 handicap placcard Discontinued 0 .ROUTE .COMPLEX March 11, 2020 11:00pm March 15, 2023 10:42am Duration: lifetime Diagnosis: CVA, debility Start: 03-12-2020 End: 03-15-2023 handicap placcard Discontinu ed 0 .ROUTE .COMPLEX March 12, 2020 12:00am March 15, 2023 11:42am Duration: lifetime Diagnosis: CVA, debility Start: 03-12-2020 handicap placc lynne Active 0 .ROUTE .COMPLEX March 12, 2020 12:00am Duration: lifetime Diagnosis: CVA, debility Start: 03-12-2020 handicap placc lynne Active 0 .ROUTE .COMPLEX 1 March 11, 2020 11:00pm Duration: lifetime Diagnosis: CVA, debility latanoprost 0.05 mg/ml ophthalmic solution (7 sources) Prostaglandin Analog Start: 10-26-2019 End: 03-15-2023 Latanoprost Discontinued 1 DRP RIGHT EYE AT BEDTIME October 26, 2019 12:00am March 15, 2023 11:42am levETIRAcetam 500 mg oral tablet (14 sources) Start: 10-29-2019 End: 11-03-2020 take 1000 mg by mouth at bedtime Levetiracetam Discontinued 1000 MG PO AT BEDTIME December 15, 2019 10:32am November 03, 2020 12:58pm lidocaine 25 mg/ml / prilocaine 25 mg/ml topical cream (7 sources) Antiarrhythmic, Amide Local Anesthetic Start: 07-17-2022 End: 03-15-2023 Lidocaine-Prilocai ne Discontinued 1 APPLIC TOPICAL TUTHSA July 17, 2022 1:00am March 15, 2023 11:43am magnesium hydroxide 80 mg/ml oral suspension (7 sources) Start: 07-14-2019 End: 07-31-2019 take 1 mL by mouth once daily as needed Magnesium Hydroxide Discontinued 30 ML PO DAILY NEEDED July 14, 2019 1:00am July 31, 2019 10:16am methazolAMIDE 50 mg oral tablet (14 sources) Start: 07-20-2015 End: 07-31-2015 take 1 tablet by mouth twice daily Methazolamide (Neptazane) 50 MG tablet Discontinued 50 MG PO TWICE A DAY 0 July 22, 2015 2:23pm July 31, 2015 8:54pm Hold it the low serum creatinine comes back to baseline. The pharmacist, Stephanie Bebeto Le will follow with her creatinine metoprolol tartrate 50 mg oral tablet (20 sources) beta-Adrenergic Cecilia Start: 01-16-2019 End: 09-19-2019 take 50 mg by mouth twice daily Metoprolol Tartrate Discontinued 50 MG PO TWICE A DAY July 14, 2019 11:15am September 19, 2019 10:23am Start: 02-02-2018 End: 01-16-2019 Metoprolol Tartrate Disconti nued 12.5 MG PO TWICE A DAY February 02, 2018 12:00am January 16, 2019 5:22pm take half a tablet every 12 hours montelukast 10 mg oral tablet (7 sources) Leukotriene Receptor Antagonist Start: 07-20-2015 End: 01-16-2019 take 10 mg by mouth once daily Montelukast Discontinued 10 MG PO DAILY July 20, 2015 1:00am January 16, 2019 5:23pm Nutritional Supplements (7 sources) Start: 07-17-2022 End: 03-15-2023 Nutritional Supplements Discontinued 237 ML PO DIRECTED July 17, 2022 12:00am March 15, 2023 10:43am Start: 07-17-2022 End: 03-15-2023 Nutritional Supplements Disc ontinued 237 ML PO DIRECTED July 17, 2022 1:00am March 15, 2023 11:43am Start: 07-17-2022 Nutritional Ram pplements Active 237 ML PO DIRECTED July 17, 2022 1:00am Start: 07-17-2022 Nutritional Ram pplements Active 237 ML PO DIRECTED July 17, 2022 12:00am predniSONE 20 mg oral tablet (20 sources) Start: 05-20-2016 End: 05-20-2016 take 40 mg by mouth once daily Prednisone Discontinued 40 MG PO DAILY@0800 5 May 20, 2016 1:19pm May 20, 2016 1:21pm QUEtiapine 25 mg oral tablet (4 sources) Atypical Antipsychotic Start: 03-15-2023 End: 05-02-2023 take 25 mg by mouth at bedtime Quetiapine Discontinued 25 MG PO AT BEDTIME March 15, 2023 12:00am May 02, 2023 10:38am sodium phosphate, dibasic 59.3 mg/ml / sodium phosphate, monobasic 161 mg/ml enema (7 sources) Start: 07-14-2019 End: 07-31-2019 Sodium Phosphates Discontinued 133 ML RC DAILY NEEDED July 14, 2019 1:00am July 31, 2019 10:20am Problems Active Problems Problem Classification Problem Date Documented Date Episodic/Chronic Acute cerebrovascular disease (8 sources) Cerebrovascular accident; Translations: [Cerebral infarction, unspecified] 07-17-2022 Chronic Administrative/social admission (7 sources) Lives in a shelter; Translations: [Problems related to living in residential institution] 03-16-2023 Episodic Chronic kidney disease (20 sources) Chronic renal failure; Translations: [Chronic kidney disease, stage 5] 07-31-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 Complication of device; implant or graft (18 sources) Dialysis finding; Translations: [Other specified complication of vascular prosthetic devices, implants and grafts, initial encounter] Onset: 06-27-2024 09-18-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 Conduction disorders (8 sources) Right bundle branch block AND left anterior fascicular block; Translations: [Bifascicular block] 10-26-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 Congestive heart failure; nonhypertensive (11 sources) Chronic diastolic heart failure; Translations: [Chronic diastolic (congestive) heart failure] 09-18-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 Deficiency and other anemia (7 sources) Anemia; Translations: [Anemia, unspecified] 07-19-2022 Episodic Deficiency and other anemia (7 sources) Iron deficiency anemia; Translations: [Iron deficiency anemia, unspecified] 10-26-2019 Episodic Deficiency and other anemia (2 sources) Anemia, unspecified; Translations: [Anemia, unspecified] 07-19-2022 Episodic Delirium, dementia, and amnestic and other cognitive disorders (17 sources) Dementia; Translations: [Unspecified dementia without behavioral disturbance] 10-26-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 Disorders of lipid metabolism (10 sources) Hyperlipidemia; Translations: [Hyperlipidemia, unspecified] 10-26-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 E Codes: Fall (3 sources) Falling injury; Translations: [Unspecified fall, initial encounter] 06-13-2023 Episodic Essential hypertension (20 sources) Essential hypertension; Translations: [Essential (primary) hypertension] 07-17-2022 Chronic Malaise and fatigue (11 sources) Left hemiparesis; Translations: [Weakness] 07-17-2022 Episodic Other circulatory disease (7 sources) History of cardiovascular surgery; Translations: [Presence of other cardiac implants and grafts] 05-05-2021 Chronic Other circulatory disease (2 sources) Arteriovenous fistula of left upper extremity; Translations: [Arteriovenous fistula, acquired] 06-13-2023 Chronic Other circulatory disease (1 source) Arteriovenous fistula, acquired; Translations: [Arteriovenous fistula, acquired] Onset: 07-11-2024 Chronic Other circulatory disease (1 source) Hypotension, unspecified; Translations: [Hypotension, unspecified] Onset: 07-11-2024 Episodic Other congenital anomalies (7 sources) Congenital anomaly of eye; 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, 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-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 Other connective tissue disease (7 sources) Neurological symptom; Translations: [Unspecified symptoms and signs involving the nervous system] 08-03-2019 Episodic Other connective tissue disease (7 sources) Weakness of face muscles; Translations: [Facial weakness] 07-17-2022 Episodic Other connective tissue disease (1 source) Facial weakness; Translations: [Facial weakness] 07-19-2022 Episodic Other hematologic conditions (7 sources) High troponin I level; Translations: [Other specified abnormalities of plasma proteins] 07-31-2019 Episodic Other injuries and conditions due to external causes (1 source) Injury of head; Translations: [Unspecified injury of head, initial encounter] 08-03-2023 Episodic Other lower respiratory disease (14 sources) Dyspnea; Translations: [Shortness of breath] 09-18-2019 Episodic Other lower respiratory disease (7 sources) Cough; Translations: [Cough] 09-18-2019 Episodic Other nervous system disorders (7 sources) Aphasia; Translations: [Aphasia] 07-17-2022 Chronic Other nervous system disorders (1 source) Aphasia; Translations: [Aphasia] 07-19-2022 Chronic Other nervous system disorders (3 sources) Polyneuropathy; Translations: [Polyneuropathy, unspecified] 05-02-2023 Chronic Other nervous system disorders (4 sources) Polyneuropathy, unspecified; Translations: [Unspecified hereditary and idiopathic peripheral neuropathy] Onset: 04-03-2024 05-02-2023 Chronic Other nervous system disorders (14 sources) Dysarthria; Translations: [Dysarthria and anarthria] 07-17-2022 Episodic Other nervous system disorders (1 source) Dysarthria and anarthria; Translations: [Dysarthria] 07-19-2022 Episodic Other nervous system disorders (6 sources) Slurred speech; Translations: [Slurred speech] 12-05-2022 Episodic Other nervous system disorders (3 sources) Slurred speech; Translations: [Other speech disturbance] 12-05-2022 Episodic Residual codes; unclassified (7 sources) Medication given; Translations: [Status post administration of tPA (rtPA) in a different facility within the last 24 hours prior to admission to current facility] 07-17-2022 Chronic Residual codes; unclassified (1 source) Status post administration of tPA (rtPA) in a different facility within the last 24 hours prior to admission to current facility; Translations: [Status post administration of tPA (rtPA) in a different facility within the last 24 hours prior to admission to current facility] 07-19-2022 Chronic Residual codes; unclassified (10 sources) Confusional state; Translations: [Disorientation, unspecified] 12-05-2022 Episodic Residual codes; unclassified (6 sources) Disorientation, unspecified; Translations: [Unspecified psychosis] 12-05-2022 Episodic Respiratory failure; insufficiency; arrest (adult) (7 sources) Hypoxemic respiratory failure; Translations: [Respiratory failure, unspecified with hypoxia] 09-18-2019 Episodic Sprains and strains (7 sources) Strain of trapezius muscle; Translations: [Strain of other muscles, fascia and tendons at shoulder and upper arm level, unspecified arm, initial encounter] 01-10-2019 Episodic Superficial injury; contusion (3 sources) Contusion of left foot; Translations: [Contusion of left foot, initial encounter] 06-13-2023 Episodic Syncope (2 sources) Syncope and collapse; Translations: [Syncope and collapse] Onset: 07-11-2024 Episodic Transient cerebral ischemia (17 sources) Transient cerebral ischemia; Translations: [Transient cerebral ischemic attack, unspecified] Onset: 10-22-2019 05-05-2021 Chronic Past or Other Problems Problem Classification Problem Date Documented Date Episodic/Chronic Other circulatory disease (7 sources) History of cerebrovascular accident; Translations: [Personal history of transient ischemic attack (TIA), and cerebral infarction without residual deficits] Onset: 12-15-2019 05-05-2021 Episodic Other circulatory disease (3 sources) Personal history of transient ischemic attack (TIA), and cerebral infarction without residual deficits; Translations: [Personal history of transient ischemic attack (TIA), and cerebral infarction without residual deficits] Onset: 12-15-2019 04-23-2022 Episodic Residual codes; unclassified (4 sources) Other specified postprocedural states; Translations: [Personal history of surgery to other organs] Onset: 07-20-2019 04-23-2022 Episodic Respiratory failure; insufficiency; arrest (adult) (7 sources) Respiratory failure; insufficiency; arrest (adult) 09-18-2019 Unclassified (2 sources) Contusion of left forearm, initial encounter 06-13-2023 Results Test Name Value Interpretation Reference Range Facility /Izzy 08-01-2024 /SELENA [facility] Vascular Surgery [address] [place] [address] OFFICE VISIT Date of Service: 08/01/24 MR#: [id number] Acct: [id number] Name: NICOLE SALVADOR Rep #: [id number] : 1935 Provider: OSBALDO Mitchell Age/Sex: 89/F [facility] Status: Signed Intake Vital Signs 04/24/24 13:02 06/19/24 08:38 07/04/24 15:45 08/01/24 14:25 Height 5 ft 3 in 5 ft 3 in 5 ft 3 in Weight: 135 lb BP 133/65 H Blood Pressure Location Rt brachial Position Sitting Respiration 16 Pulse 86 Pulse Source Monitor Temp 97.3 F L Temp Source Temporal Pulse Oximetry (%) 97 Oxygen Delivery Method room air Intake Visit Reasons: Post fistulagram 2-3 WK FU Chief Complaint: post op Allergies erythromycin base Allergy (Verified 08/01/24 14:12) Rash lisinopril Allergy (Verified 08/01/24 14:12) Unknown NSAIDS (Non-Steroidal Anti-Inflamma Allergy (Verified 08/01/24 14:12) Other Salicylates Allergy (Verified 08/01/24 14:12) Other Medications ???Medication ???Instructions ???Recorded ???Confirmed ???Type timolol maleate 0.5 % eye drops 1 drp EACH EYE BID GLAUCOMA 08/01/24 History levothyroxine 100 mcg tablet 100 mcg PO DAILY thyroid 07/31/19 08/01/24 History isosorbide mononitrate 60 mg 60 mg PO SUMOWEFR HTN 10/26/1905/16 History tablet,extended release 24 hr nifedipine 60 mg tablet,extended 60 mg PO DAILY BLOOD PRESSURE 04/2308/01/24 History release albuterol sulfate 90 mcg/actuation 2 inh inhalation Q4H PRN Shortne ss 07/17/22 08/01/24 History aerosol inhaler Of Breath budesonide-formotero l HFA 160 1 inh inhalation QHS SHORTNESS OF 07/17/22 08/01/24 History mcg-4.5 mcg/actuation aerosol BREATH inhaler dextran 70-hypromellose 0.1 %-0.3 1 drp ophthalmic (eye) QHS eye 08/01/24 History % eye drops health albuterol sulfate 2.5 mg/3 mL 2.5 mg continuous nebulization Q4H 12/05/22 08/01/24 History (0.083 %) solution for nebulization PRN SOB/Wheezing clopidogrel 75 mg tablet 75 mg PO DAILY anti platelet #30 0 12/06/22 08/01/24 Rx tabs atorvastatin 20 mg tablet 40 mg (2 x 20 mg) PO DAILY 3 08/01/24 Rx CHOLESTEROL #1 TAB acetaminophen 500 mg capsule 500 mg PO Q6H PRN fever or pain 08/01/24 History bisacodyl 10 mg rectal suppository 10 mg MA DAILY PRN constipation 08/29/23 08/01/24 History donepezil 10 mg tablet 10 mg PO DAILY mentation 08/29/23 08/01/24 History magnesium hydroxide 400 mg/5 mL 5 ml PO DAILY PRN constipation 01/1308/01/24 History oral suspension (Milk of Magnesia) mineral oil (Fleet Mineral Oil 118 ml MA DAILY PRN constipation 0 09/12/23 08/01/24 History enema) memantine 5 mg tablet 5 mg PO BID mentation 03/12/2405/16 History sevelamer carbonate 800 mg tablet 800 mg PO TID kidney disease 06/2308/01/24 History vitamin B complex-vitamin C-folic 1 tab DAILY 07/03/24 08/01/24 His tory acid 0.8 mg tablet (Nephro-Jean Paul) food supplemt, lactose-reduced 120 ml PO 4X/DAY #0 mL 07/05/24 Rx 0.08 gram-1.5 kcal/mL oral liquid (Ensure Plus High Protein) Is last menstrual period known: No Post menopausal: Yes Patient : No Have you fallen in the past year?: No PFSH Medical History skilled nursing resident AV fistula skilled nursing resident ESRD on hemodialysis Anemia TIA (transient ischemic attack) Hypertension ESRD (end stage renal disease) on dialysis Problem with dialysis access Chronic diastolic (congestive) heart failure End-stage renal disease (ESRD) History of CVA (cerebrovascular accident) (12/15/19) Essential hypertension Problem with dialysis access Respiratory failure with hypoxia Iron deficiency anemia RENAL FAILURE STAGE 6 Chronic renal failure, stage 5 Dementia Elevated troponin I level Metabolic acidosis Acute respiratory failure with hypoxia Anemia Iron deficiency anemia Chronic kidney disease (CKD) stage G5/A1, glomerular filtration rate (GFR) less than or equal to 15 mL/min/1.73 square meter and albuminuria creatinine ratio less than 30 mg/g Cough Shortness of breath Cerebellar infarct Speech apraxia Asthma Glaucoma Obesity (BMI 30.0-34.9) Hyperlipidemia Surgical History History of loop recorder (07/20/19) s/p left AV fistula creation (02/19/19) Hx of foot surgery Hx of thyroidectomy Hx of cataract extraction Hx of hysterectomy Family History Mother Colon cancer Hypertension Father Hypertension Social History Smoking Status: Never smoker alcohol intake: never subst (more content not included)... Normal [facility] Hemoglobinon 07-17-2024 Hemoglobin (Bld) [Mass/Vol] 8.4 g/dL Low 12.0-15.0 [facility] Comment on above: Performed By: #### L 100.1300 ####[facility] [address] [place], [place], [id number] CBC W/Diff, Automatedon 06-23 Absolute Lymph 1.69 X10 3/uL Normal 0.83-4.51 [facility] Comment on above: Performed By: #### L 100.0100 ####[facility] [address] [place], [place], [id number] Absolute Neut 3.7 X10 3/uL Normal 2.0-7.7 [facility] Comment on above: Performed By: #### L 100.0100 ####[facility] [address] [place], [address] Basophils/100 WBC (Bld) 1.0 % Normal 0-1 [facility] Comment on above: Performed By: #### L 100.0100 ####[facility] [address] [place], [address] Eosinophils/100 WBC (Bld) 8.1 % High 0-5 [facility] Comment on above: Performed By: #### L 100.0100 ####[facility] [address] [place], [address] Erythrocyte distribution width (RBC) [Ratio] 17.1 % High 11.6-14.6 [facility] Comment on above: Performed By: #### L 100.0100 ####[facility] [address] [place], [address] Hematocrit (Bld) [Volume fraction] 23.8 % Low 37-47 [facility] Comment on above: Performed By: #### L 100.0100 ####[facility] [address] [place], [address] Hemoglobin (Bld) [Mass/Vol] 7.4 g/dL Low 12.0-15.0 [facility] Comment on above: Performed By: #### L 100.0100 ####[facility] [address] [place], [address] IG% 0.300 Normal 0.0-0.9 [facility] Comment on above: Result Comment: IG% - Immature Granulocytes (promyelocytes, myelocytes and metamyelocytes) > 1% indicates that a LEFT SHIFT is Present. Performed By: #### L 100.0100 ####[facility] [address] [place], [address] Lymphocytes/100 WBC (Bld) 25.3 % Normal 19-41 [facility] Comment on above: Performed By: #### L 100.0100 ####[facility] [address] [place], [address] MCH (RBC) [Entitic mass] 28.4 pg Normal 27.0-32.0 [facility] Comment on above: Performed By: #### L 100.0100 ####[facility] [address] [place], [address] MCHC (RBC) [Mass/Vol] 31.1 g/dL Low 32-36 [facility] Comment on above: Performed By: #### L 100.0100 ####[facility] [address] [place], [address] MCV (RBC) [Entitic vol] 91.2 fL Normal 81-99 [facility] Comment on above: Performed By: #### L 100.0100 ####[facility] [address] [place], [address] Monocytes/100 WBC (Bld) 10.3 % High 0-10 [facility] Comment on above: Performed By: #### L 100.0100 ####[facility] [address] [place], [address] Neutrophils/100 WBC (Bld) 55.0 % Normal 47-70 [facility] Comment on above: Performed By: #### L 100.0100 ####[facility] [address] [place], [address] Nucleated RBC (Bld) [#/Vol] 0 10*3/uL Normal 0-5 [facility] Comment on above: Performed By: #### L 100.0100 ####[facility] [address] [place], [address] Platelet mean volume (Bld) [Entitic vol] 12.1 fL High 6.2-12.0 [facility] Comment on above: Performed By: #### L 100.0100 ####[facility] [address] [place], [address] Platelets (Bld) [#/Vol] 130 10*3/uL Low 150-450 [facility] Comment on above: Performed By: #### L 100.0100 ####[facility] [address] [place], [address] RBC (Bld) [#/Vol] 2.61 10*6/uL Low 4.2-5.4 [facility] Comment on above: Performed By: #### L 100.0100 ####[facility] [address] [place], [address] RDW SD 54.9 fl High 35.1-43.9 [facility] Comment on above: Performed By: #### L 100.0100 ####[facility] [address] [place], [address] WBC (Bld) [#/Vol] 6.7 10*3/uL Normal 4.4-11.0 [facility] Comment on above: Performed By: #### L 100.0100 ####[facility] [address] [place], [address] CBC W/Diff, Automatedon 06-23 Absolute Lymph 2.42 X10 3/uL Normal 0.83-4.51 [facility] Comment on above: Performed By: #### L 100.0100 ####[facility] [address] [place], [address] Absolute Neut 4.5 X10 3/uL Normal 2.0-7.7 [facility] Comment on above: Performed By: #### L 100.0100 ####[facility] [address] [place], [address] Basophils/100 WBC (Bld) 1.1 % High 0-1 [facility] Comment on above: Performed By: #### L 100.0100 ####[facility] [address] [place], [address] IG% 0.500 Normal 0.0-0.9 [facility] Comment on above: Result Comment: IG% - Immature Granulocytes (promyelocytes, myelocytes and metamyelocytes) > 1% indicates that a LEFT SHIFT is Present. Performed By: #### L 100.0100 ####[facility] [address] [place], [address] Nucleated RBC (Bld) [#/Vol] 0 10*3/uL Normal 0-5 [facility] Comment on above: Performed By: #### L 100.0100 ####[facility] [address] [place], [address] Eosinophils/100 WBC (Bld) 6.7 % High 0-5 [facility] Comment on above: Performed By: #### L 100.0100 ####[facility] [address] [place], [address] Erythrocyte distribution width (RBC) [Ratio] 16.7 % High 11.6-14.6 [facility] Comment on above: Performed By: #### L 100.0100 ####[facility] [address] [place], [address] Hematocrit (Bld) [Volume fraction] 25.3 % Low 37-47 [facility] Comment on above: Performed By: #### L 100.0100 ####[facility] [address] [place], [address] Hemoglobin (Bld) [Mass/Vol] 7.9 g/dL Low 12.0-15.0 [facility] Comment on above: Performed By: #### L 100.0100 ####[facility] [address] [place], [address] Lymphocytes/100 WBC (Bld) 29.9 % Normal 19-41 [facility] Comment on above: Performed By: #### L 100.0100 ####[facility] [address] [place], [address] MCH (RBC) [Entitic mass] 28.4 pg Normal 27.0-32.0 [facility] Comment on above: Performed By: #### L 100.0100 ####[facility] [address] [place], [address] MCHC (RBC) [Mass/Vol] 31.2 g/dL Low 32-36 [facility] Comment on above: Performed By: #### L 100.0100 ####[facility] [address] [place], [address] MCV (RBC) [Entitic vol] 91.0 fL Normal 81-99 [facility] Comment on above: Performed By: #### L 100.0100 ####[facility] [address] [place], [address] Monocytes/100 WBC (Bld) 6.6 % Normal 0-10 [facility] Comment on above: Performed By: #### L 100.0100 ####[facility] [address] [place], [address] Neutrophils/100 WBC (Bld) 55.2 % Normal 47-70 [facility] Comment on above: Performed By: #### L 100.0100 ####[facility] [address] [place], [address] Platelet mean volume (Bld) [Entitic vol] 12.4 fL High 6.2-12.0 [facility] Comment on above: Performed By: #### L 100.0100 ####[facility] [address] [place], [address] Platelets (Bld) [#/Vol] 130 10*3/uL Low 150-450 [facility] Comment on above: Performed By: #### L 100.0100 ####[facility] [address] [place], [address] RBC (Bld) [#/Vol] 2.78 10*6/uL Low 4.2-5.4 [facility] Comment on above: Performed By: #### L 100.0100 ####[facility] [address] [place], [address] RDW SD 55.7 fl High 35.1-43.9 [facility] Comment on above: Performed By: #### L 100.0100 ####[facility] [address] [place], [address] WBC (Bld) [#/Vol] 8.1 10*3/uL Normal 4.4-11.0 [facility] Comment on above: Performed By: #### L 100.0100 ####[facility] [address] [place], [address] Absolute Lymph 2.51 X10 3/uL Normal 0.83-4.51 [facility] Comment on above: Performed By: #### L 501.5200, L500.4050, L100.0100, L501.2300 ####[facility] [address] [place], [address] Absolute Neut 4.1 X10 3/uL Normal 2.0-7.7 [facility] Comment on above: Performed By: #### L 501.5200, L500.4050, L100.0100, L501.2300 ####[facility] [address] [place], [address] Basophils/100 WBC (Bld) 1.0 % Normal 0-1 [facility] Comment on above: Performed By: #### L 501.5200, L500.4050, L100.0100, L501.2300 ####[facility] [address] [place], [address] Eosinophils/100 WBC (Bld) 6.3 % High 0-5 [facility] Comment on above: Performed By: #### L 501.5200, L500.4050, L100.0100, L501.2300 ####[facility] [address] [place], [address] Erythrocyte distribution width (RBC) [Ratio] 16.8 % High 11.6-14.6 [facility] Comment on above: Performed By: #### L 501.5200, L500.4050, L100.0100, L501.2300 ####[facility] [address] [place], [address] Hematocrit (Bld) [Volume fraction] 25.6 % Low 37-47 [facility] Comment on above: Performed By: #### L 501.5200, L500.4050, L100.0100, L501.2300 ####[facility] [address] [place], [address] Hemoglobin (Bld) [Mass/Vol] 7.6 g/dL Low 12.0-15.0 [facility] Comment on above: Performed By: #### L 501.5200, L500.4050, L100.0100, L501.2300 ####[facility] [address] [place], [address] IG% 0.400 Normal 0.0-0.9 [facility] Comment on above: Result Comment: IG% - Immature Granulocytes (promyelocytes, myelocytes and metamyelocytes) > 1% indicates that a LEFT SHIFT is Present. Performed By: #### L 501.5200, L500.4050, L100.0100, L501.2300 ####[facility] [address] [place], [address] Lymphocytes/100 WBC (Bld) 30.8 % Normal 19-41 [facility] Comment on above: Performed By: #### L 501.5200, L500.4050, L100.0100, L501.2300 ####[facility] [address] [place], [address] MCH (RBC) [Entitic mass] 27.4 pg Normal 27.0-32.0 [facility] Comment on above: Performed By: #### L 501.5200, L500.4050, L100.0100, L501.2300 ####[facility] [address] [place], [address] MCHC (RBC) [Mass/Vol] 29.7 g/dL Low 32-36 [facility] Comment on above: Performed By: #### L 501.5200, L500.4050, L100.0100, L501.2300 ####[facility] [address] [place], [address] MCV (RBC) [Entitic vol] 92.4 fL Normal 81-99 [facility] Comment on above: Performed By: #### L 501.5200, L500.4050, L100.0100, L501.2300 ####[facility] [address] [place], [address] Monocytes/100 WBC (Bld) 11.2 % High 0-10 [facility] Comment on above: Performed By: #### L 501.5200, L500.4050, L100.0100, L501.2300 ####[facility] [address] [place], [address] Neutrophils/100 WBC (Bld) 50.3 % Normal 47-70 [facility] Comment on above: Performed By: #### L 501.5200, L500.4050, L100.0100, L501.2300 ####[facility] [address] [place], [address] Nucleated RBC (Bld) [#/Vol] 0.4 10*3/uL Normal 0-5 [facility] Comment on above: Performed By: #### L 501.5200, L500.4050, L100.0100, L501.2300 ####[facility] [address] [place], [address] Platelet mean volume (Bld) [Entitic vol] 12.0 fL Normal 6.2-12.0 [facility] Comment on above: Performed By: #### L 501.5200, L500.4050, L100.0100, L501.2300 ####[facility] [address] [place], [address] Platelets (Bld) [#/Vol] 123 10*3/uL Low 150-450 [facility] Comment on above: Performed By: #### L 501.5200, L500.4050, L100.0100, L501.2300 ####[facility] [address] [place], [address] RBC (Bld) [#/Vol] 2.77 10*6/uL Low 4.2-5.4 [facility] Comment on above: Performed By: #### L 501.5200, L500.4050, L100.0100, L501.2300 ####[facility] [address] [place], [address] RDW SD 56.1 fl High 35.1-43.9 [facility] Comment on above: Performed By: #### L 501.5200, L500.4050, L100.0100, L501.2300 ####[facility] [address] [place], [address] WBC (Bld) [#/Vol] 8.1 10*3/uL Normal 4.4-11.0 [facility] Comment on above: Performed By: #### L 501.5200, L500.4050, L100.0100, L501.2300 ####[facility] [address] [place], [address] Comprehensive Metabolic Prof ilon 07-04-2024 Albumin [Mass/Vol] 2.4 g/dL Low 3.2-5.0 [facility] Comment on above: Performed By: #### L 501.5200, L500.4050, L100.0100, L501.2300 ####[facility] [address] [place], [address] Albumin/Globulin [Mass ratio] 0.8 {ratio} Low 0.9-2.4 [facility] Comment on above: Performed By: #### L 501.5200, L500.4050, L100.0100, L501.2300 ####[facility] [address] [place], [address] ALK P 56 U/L Normal 45-117 [facility] Comment on above: Performed By: #### L 501.5200, L500.4050, L100.0100, L501.2300 ####[facility] [address] [place], [address] ALT [Catalytic activity/Vol] 15 U/L Normal 13-56 [facility] Comment on above: Performed By: #### L 501.5200, L500.4050, L100.0100, L501.2300 ####[facility] [address] [place], [address] AST [Catalytic activity/Vol] 17 U/L Normal 15-37 [facility] Comment on above: Performed By: #### L 501.5200, L500.4050, L100.0100, L501.2300 ####[facility] [address] [place], [address] Bilirubin [Mass/Vol] 0.30 mg/dL Normal 0.20-1.00 [facility] Comment on above: Result Comment: For patients on eltrombopag therapy, use of Dimension [place] TBIL is not recommended. Performed By: #### L 501.5200, L500.4050, L100.0100, L501.2300 ####[facility] [address] [place], [address] BUN/CRE 5.5 RATIO Low 10-20 [facility] Comment on above: Performed By: #### L 501.5200, L500.4050, L100.0100, L501.2300 ####[facility] [address] [place], [address] CA,Total 7.8 mg/dL Low 8.5-10.1 [facility] Comment on above: Performed By: #### L 501.5200, L500.4050, L100.0100, L501.2300 ####[facility] [address] [place], [address] Chloride [Moles/Vol] 104 mmol/L Normal 98-107 [facility] Comment on above: Performed By: #### L 501.5200, L500.4050, L100.0100, L501.2300 ####[facility] [address] [place], [address] CO2 [Moles/Vol] 25.0 mmol/L Normal 21.0-32.0 [facility] Comment on above: Performed By: #### L 501.5200, L500.4050, L100.0100, L501.2300 ####[facility] [address] [place], [address] Creatinine [Mass/Vol] 6.32 mg/dL High 0.55-1.02 [facility] Comment on above: Result Comment: The validity of the calculated GFR GFRAA in patients over 70 years has not been determined. Clinical correlation is essential. Performed By: #### L 501.5200, L500.4050, L100.0100, L501.2300 ####[facility] [address] [place], [address] ECRCL 5.09 ml/min Normal [facility] Comment on above: Performed By: #### L 501.5200, L500.4050, L100.0100, L501.2300 ####[facility] [address] [place], [address] EST GFR - AA 8 mL/min Low >60 [facility] Comment on above: Result Comment: Afri can [place] Citizen GFR Calc Performed By: #### L 501.5200, L500.4050, L100.0100, L501.2300 ####[facility] [address] [place], [address] GAP 8 Normal 5-15 [facility] Comment on above: Performed By: #### L 501.5200, L500.4050, L100.0100, L501.2300 ####[facility] [address] [place], [address] GFR/1.73 sq M.predicted among non-blacks MDRD (S/P/Bld) [Vol rate/Area] 7 mL/min/{1.73_m2} Low >60 [facility] Comment on above: Result Comment: Non- GFR Calc Performed By: #### L 501.5200, L500.4050, L100.0100, L501.2300 ####[facility] [address] [place], [address] Globulin (S) [Mass/Vol] 3.2 g/dL Normal 2.2-4.2 [facility] Comment on above: Performed By: #### L 501.5200, L500.4050, L100.0100, L501.2300 ####[facility] [address] [place], [address] Glucose [Mass/Vol] 74 mg/dL Normal 74-106 [facility] Comment on above: Performed By: #### L 501.5200, L500.4050, L100.0100, L501.2300 ####[facility] [address] [place], [address] Potassium [Moles/Vol] 4.3 mmol/L Normal 3.5-5.1 [facility] Comment on above: Performed By: #### L 501.5200, L500.4050, L100.0100, L501.2300 ####[facility] [address] [place], [address] Sodium [Moles/Vol] 137 mmol/L Normal 136-145 [facility] Comment on above: Performed By: #### L 501.5200, L500.4050, L100.0100, L501.2300 ####[facility] [address] [place], [address] T PROT 5.6 g/dL Low 6.4-8.2 [facility] Comment on above: Performed By: #### L 501.5200, L500.4050, L100.0100, L501.2300 ####[facility] [address] [place], [address] Urea nitrogen [Mass/Vol] 35 mg/dL High 7-18 [facility] Comment on above: Performed By: #### L 501.5200, L500.4050, L100.0100, L501.2300 ####[facility] [address] [place], [address] Consultation - Nephrologyon 07-04-2024 Consultation - Nephrology [facility] Medical Records Department [address] [place] [address] Consultation - Nephrology 07/04/24 0846 MR#: [id number] Acct: [id number] Name: NICOLE SALVADOR Rep #: [id number] : [id number] 89 From: Kianna Patrick DO PCP: Dr. Kishan Camejo MD Status:DIS IN Location: [facility] [id number] Assessment Plan Assessment/Plan (1) ESRD on hemodialysis: PLAN: HD TTS, next dialysis . AVF with good thrill and bruit. (2) Cardiac arrest: PLAN: back to baseline (3) Syncope and collapse: PLAN: due to CPA (4) Dementia: (5) History of CVA (cerebrovascular accident): (6) Acute hypotension: (7) Essential hypertension: PLAN: stableBP (8) skilled nursing resident: (9) skilled nursing resident: HPI Consult Data Date of Consult: 07/04/24 HPI Narrative Reason for Consultation: ESRD HD TTS, renal mgmt HPI Narrative: NICOLE SALVADOR, is a 89 F who presents to [facility] via squad 07/03/24 after cardiac arrest on dialysis yesterday. She became unresponsive with hypotension and no pulse. EMS was called and CPR was initiated. She had slight infiltration of her AVF while being resuscitated with iv hydration at dialysis center. She became conscious shortly after resuscitation. AVF with good thrill and bruit, minimal infiltration. She received most of her treatment yesterday except for last 18min of treatment. Labs stable, vitals stable today. Echo completed. She has dementia and is a resident of [facility]. She is a poor historian. She has a history of multiple strokes, hypertension. Pt nephew at bedside. Spoke with pt daughter over phone at bedside. She voices she wants to be left alone and wants to eat. 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 Problem with dialysis access Chronic diastolic (congestive) heart failure End-stage renal disease (ESRD) History of CVA (cerebrovascular accident) (12/15/19) Essential hypertension Problem with dialysis access Respiratory failure with hypoxia Iron deficiency anemia RENAL FAILURE STAGE 6 Chronic renal failure, stage 5 Dementia Elevated troponin I level Metabolic acidosis Acute respiratory failure with hypoxia Anemia Iron deficiency anemia Chronic kidney disease (CKD) stage G5/A1, glomerular filtration rate (GFR) less than or equal to 15 mL/min/1.73 square meter and albuminuria creatinine ratio less than 30 mg/g Cough Shortness of breath Cerebellar infarct Speech apraxia Asthma Glaucoma Obesity (BMI 30.0-34.9) Hyperlipidemia Home Medications ???Medication ???Instructions ???Recorded ???Last Taken ???Type timolol maleate 0.5 % eye drops 1 drp EACH EYE BID GLAUCOMA 03/15/23 History levothyroxine 100 mcg tablet 100 mcg PO DAILY thyroid 07/31/19 03/15/23 History isosorbide mononitrate 60 mg 60 mg PO SUMOWEFR HTN 10/26/19 History tablet,extended release 24 hr nifedipine 60 mg tablet,extended 60 mg PO DAILY BLOOD PRESSURE 04/2303/15/23 History release albuterol sulfate 90 mcg/actuation 2 inh inhalation Q4H PRN Shortne ss 07/17/22 Unknown History aerosol inhaler Of Breath aspirin 81 mg tablet,delayed 81 mg PO DAILY HEART HEALTH 03/15/23 History release budesonide-formotero l HFA 160 1 inh inhalation QHS SHORTNESS OF 07/17/22 03/14/23 History mcg-4.5 mcg/actuation aerosol BREATH inhaler dextran 70-hypromellose 0.1 %-0.3 1 drp ophthalmic (eye) QHS 03/14/23 History % eye drops albuterol sulfate 2.5 mg/3 mL 2.5 mg continuous nebulization Q4H 12/05/22 Unknown History (0.083 %) solution for nebulization PRN SOB/Wheezing clopidogrel 75 mg tablet 75 mg PO DAILY #30 tabs 12/06/22 1 Rx atorvastatin 20 mg tablet 40 mg (2 x 20 mg) PO DAILY 3 03/14/23 Rx CHOLESTEROL #1 TAB acetaminophen 500 mg capsule 500 mg PO Q6H PRN fever or pain Unknown History bisacodyl 10 mg rectal suppository 10 mg MA DAILY PRN constipation 08/29/23 Unknown History donepezil 10 mg tablet 10 mg PO DAILY 08/29/23 Unknown Hi story magnesium hydroxide 400 mg/5 mL 5 ml PO DAILY PRN constipation 01/13 Unknown History oral suspension (Milk of Magnesia) mineral oil (Fleet Mineral Oil 118 ml MA DAILY PRN constipation 0 09/12/23 Unknown History enema) memantine 5 mg tablet 5 mg PO BID 03/12/24 Unknown Histo ry sevelamer carbonate 800 mg tablet 800 mg PO TID 07/03/24 Unknown Hi story vitamin B complex-vitamin C-folic 1 tab DAILY 07/03/24 Unknown Hist ory acid 0.8 mg tablet (Nephro-Jean Paul) Allergy/AdvReac Type Severity Reaction Status Date / Time erythromycin base Allergy Rash Verified 05/30/24 14:09 lisinopril Allergy Unknown Verified 05/30/24 14:09 NSAIDS (Non-Steroidal Allergy Other Veri (more content not included)... Normal [facility] Consultation - Surgicalon Consultation - Surgical [facility] Medical Records Department [address] [facility] [place] [address] Consultation - Surgical 07/04/24 0741 MR#: [id number] Acct: [id number] Name: NICOLE SALVADOR Rep #: [id number] : 1935 89 From: Liliana ROBLERO PCP: Dr. Kishan Camejo MD Status:ADM IN Location: [place] [address] Assessment Plan Assessment/Plan (1) Problem with dialysis access: QUALIFIERS: Encounter type: initial encounter Qualified Code(s): T82.898A - Other specified complication of vascular prosthetic devices, implants and grafts, initial encounter (2) AV fistula: PLAN: Plan On exam, no active bleeding from fistula access sites; mild edema consistent with report of infiltration/extrava sation of IV fluid; adequate thrill and bruit. No intervention needed at this time. Suture intact from fistulogram last week, will leave this in place another week. She is scheduled for routine outpatient follow-up in our office in 2 weeks, will plan to keep this as scheduled. HPI Consult Data Date of Consult: 07/04/24 HPI Narrative HPI Narrative: NICOLE SALVADOR, is a 89 F who presented to the [facility] ER yesterday after an unresponsive episode at dialysis. She has dementia and is not an accurate historian so history is obtained from ER physician, nursing, and chart review. She had about 20 minutes left in her dialysis session yesterday when she became unresponsive and required reportedly 1 minute of chest compressions before she regained consciousness. It seems that her dialysis access via her fistula had still been in place and EMS utilized this for fluid bolus; however, in ER it seemed on exam that this had extravasated. In the ER she seemed to be at her baseline mentation and was feeling to her baseline. She was admitted for observation. We are consulted for evaluation of her fistula. On my exam this morning, patient was sleeping but awoke to verbal stimuli. She was oriented to self, flat affect. She denied any pain. She did not recall the events that led to her admission. Dialysis access needles had been removed and coban pressure dressings were in place over fistula access sites this morning, nursing reports these have been in place overnight and they have not noted any further bleeding. 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 Problem with dialysis access Chronic diastolic (congestive) heart failure End-stage renal disease (ESRD) History of CVA (cerebrovascular accident) (12/15/19) Essential hypertension Problem with dialysis access Respiratory failure with hypoxia Iron deficiency anemia RENAL FAILURE STAGE 6 Chronic renal failure, stage 5 Dementia Elevated troponin I level Metabolic acidosis Acute respiratory failure with hypoxia Anemia Iron deficiency anemia Chronic kidney disease (CKD) stage G5/A1, glomerular filtration rate (GFR) less than or equal to 15 mL/min/1.73 square meter and albuminuria creatinine ratio less than 30 mg/g Cough Shortness of breath Cerebellar infarct Speech apraxia Asthma Glaucoma Obesity (BMI 30.0-34.9) Hyperlipidemia Home Medications ???Medication ???Instructions ???Recorded ???Last Taken ???Type timolol maleate 0.5 % eye drops 1 drp EACH EYE BID GLAUCOMA 03/15/23 History levothyroxine 100 mcg tablet 100 mcg PO DAILY thyroid 07/31/19 03/15/23 History isosorbide mononitrate 60 mg 60 mg PO SUMOWEFR HTN 10/26/19 History tablet,extended release 24 hr nifedipine 60 mg tablet,extended 60 mg PO DAILY BLOOD PRESSURE 04/2303/15/23 History release albuterol sulfate 90 mcg/actuation 2 inh inhalation Q4H PRN Shortne ss 07/17/22 Unknown History aerosol inhaler Of Breath aspirin 81 mg tablet,delayed 81 mg PO DAILY HEART HEALTH 03/15/23 History release budesonide-formotero l HFA 160 1 inh inhalation QHS SHORTNESS OF 07/17/22 03/14/23 History mcg-4.5 mcg/actuation aerosol BREATH inhaler dextran 70-hypromellose 0.1 %-0.3 1 drp ophthalmic (eye) QHS 03/14/23 History % eye drops albuterol sulfate 2.5 mg/3 mL 2.5 mg continuous nebulization Q4H 12/05/22 Unknown History (0.083 %) solution for nebulization PRN SOB/Wheezing clopidogrel 75 mg tablet 75 mg PO DAILY #30 tabs 12/06/22 1 Rx atorvastatin 20 mg tablet 40 mg (2 x 20 mg) PO DAILY 3 03/14/23 Rx CHOLESTEROL #1 TAB acetaminophen 500 mg capsule 500 mg PO Q6H PRN fever or pain Unknown History bisacodyl 10 mg rectal suppository 10 mg MA DAILY PRN constipation 08/29/23 Unknown History donepezil 10 mg tablet 10 mg PO DAILY 08/29/23 Unknown Hi story magnesium hydroxide 400 mg/5 mL 5 ml PO DAILY PRN constipation 01/13 Unknown History oral suspension (Milk of Magnes (more content not included)... Normal [facility] Magnesiumon 07-04-2024 Magnesium [Mass/Vol] 2.3 mg/dL Normal 1.6-2.6 [facility] Comment on above: Performed By: #### L 501.9200, L500.4050, L100.0100, L501.2300 ####[facility] [id number] [place], [place], [id number] Phosphoruson 07-04-2024 Phosphate [Mass/Vol] 3.1 mg/dL Normal 2.5-4.9 [facility] Comment on above: Performed By: #### L 501.5200, L500.4050, L100.0100, L501.2300 ####[facility] [id number] [place], [address] Basic Metabolic Profile (BMP )on 07-03-2024 BUN/CRE 5.3 RATIO Low 10-20 [facility] Comment on above: Performed By: #### L 100.0100, L501.5425, L500.2500 #### [facility] [address] [place], [address] CA,Total 8.1 mg/dL Low 8.5-10.1 [facility] Comment on above: Performed By: #### L 100.0100, L501.5425, L500.2500 #### [facility] [address] [place], [address] Chloride [Moles/Vol] 99 mmol/L Normal 98-107 [facility] Comment on above: Performed By: #### L 100.0100, L501.5425, L500.2500 #### [facility] [address] [place], [address] CO2 [Moles/Vol] 33.0 mmol/L High 21.0-32.0 [facility] Comment on above: Performed By: #### L 100.0100, L501.5425, L500.2500 #### [facility] [address] [place], [address] Creatinine [Mass/Vol] 4.76 mg/dL High 0.55-1.02 [facility] Comment on above: Result Comment: The validity of the calculated GFR GFRAA in patients over 70 years has not been determined. Clinical correlation is essential. Performed By: #### L 100.0100, L501.5425, L500.2500 #### [facility] [address] [place], [address] ECRCL 7.37 ml/min Normal [facility] Comment on above: Performed By: #### L 100.0100, L501.5425, L500.2500 #### [facility] [address] [place], [address] EST GFR - AA 11 mL/min Low >60 [facility] Comment on above: Result Comment: Afri can [place] Citizen GFR Calc Performed By: #### L 100.0100, L501.5425, L500.2500 #### [facility] [address] [place], [address] GAP 6 Normal 5-15 [facility] Comment on above: Performed By: #### L 100.0100, L501.5425, L500.2500 #### [facility] [address] [place], [address] GFR/1.73 sq M.predicted among non-blacks MDRD (S/P/Bld) [Vol rate/Area] 9 mL/min/{1.73_m2} Low >60 [facility] Comment on above: Result Comment: Non- GFR Calc Performed By: #### L 100.0100, L501.5425, L500.2500 #### [facility] [address] [place], [address] Glucose [Mass/Vol] 118 mg/dL High 74-106 [facility] Comment on above: Result Comment: Fast ing Glucose result from 100 to 125 mg/dL suggests IMPAIRED HOMEOSTASIS per A.D.A. criteria. Performed By: #### L 100.0100, L501.5425, L500.2500 #### [facility] [address] [place], [address] Potassium [Moles/Vol] 3.5 mmol/L Normal 3.5-5.1 [facility] Comment on above: Performed By: #### L 100.0100, L501.5425, L500.2500 #### [facility] [address] [place], [address] Sodium [Moles/Vol] 138 mmol/L Normal 136-145 [facility] Comment on above: Performed By: #### L 100.0100, L501.5425, L500.2500 #### [facility] [address] [place], [address] Urea nitrogen [Mass/Vol] 25 mg/dL High 7-18 [facility] Comment on above: Performed By: #### L 100.0100, L501.5425, L500.2500 #### [facility] [address] [place], [address] CBC W/Diff, Automatedon 06-23 Absolute Lymph 2.20 X10 3/uL Normal 0.83-4.51 [facility] Comment on above: Performed By: #### L 100.0100, L501.5425, L500.2500 #### [facility] [address] [place], [address] Absolute Neut 4.7 X10 3/uL Normal 2.0-7.7 [facility] Comment on above: Performed By: #### L 100.0100, L501.5425, L500.2500 #### [facility] [address] [place], [address] Basophils/100 WBC (Bld) 1.3 % High 0-1 [facility] Comment on above: Performed By: #### L 100.0100, L501.5425, L500.2500 #### [facility] [address] [place], [address] Eosinophils/100 WBC (Bld) 7.2 % High 0-5 [facility] Comment on above: Performed By: #### L 100.0100, L501.5425, L500.2500 #### [facility] [address] [place], [address] Erythrocyte distribution width (RBC) [Ratio] 16.5 % High 11.6-14.6 [facility] Comment on above: Performed By: #### L 100.0100, L501.5425, L500.2500 #### [facility] [address] [place], [address] Hematocrit (Bld) [Volume fraction] 31.6 % Low 37-47 [facility] Comment on above: Performed By: #### L 100.0100, L501.5425, L500.2500 #### [facility] [address] [place], [address] Hemoglobin (Bld) [Mass/Vol] 9.7 g/dL Low 12.0-15.0 [facility] Comment on above: Performed By: #### L 100.0100, L501.5425, L500.2500 #### [facility] [address] [place], [address] IG% 0.400 Normal 0.0-0.9 [facility] Comment on above: Result Comment: IG% - Immature Granulocytes (promyelocytes, myelocytes and metamyelocytes) > 1% indicates that a LEFT SHIFT is Present. Performed By: #### L 100.0100, L501.5425, L500.2500 #### [facility] [address] [place], [address] Lymphocytes/100 WBC (Bld) 26.3 % Normal 19-41 [facility] Comment on above: Performed By: #### L 100.0100, L501.5425, L500.2500 #### [facility] [address] [place], [address] MCH (RBC) [Entitic mass] 27.8 pg Normal 27.0-32.0 [facility] Comment on above: Performed By: #### L 100.0100, L501.5425, L500.2500 #### [facility] [address] [place], [address] MCHC (RBC) [Mass/Vol] 30.7 g/dL Low 32-36 [facility] Comment on above: Performed By: #### L 100.0100, L501.5425, L500.2500 #### [facility] [address] [place], [address] MCV (RBC) [Entitic vol] 90.5 fL Normal 81-99 [facility] Comment on above: Performed By: #### L 100.0100, L501.5425, L500.2500 #### [facility] [address] [place], [address] Monocytes/100 WBC (Bld) 8.7 % Normal 0-10 [facility] Comment on above: Performed By: #### L 100.0100, L501.5425, L500.2500 #### [facility] [address] [place], [address] Neutrophils/100 WBC (Bld) 56.1 % Normal 47-70 [facility] Comment on above: Performed By: #### L 100.0100, L501.5425, L500.2500 #### [facility] [address] [place], [address] Nucleated RBC (Bld) [#/Vol] 0 10*3/uL Normal 0-5 [facility] Comment on above: Performed By: #### L 100.0100, L501.5425, L500.2500 #### [facility] [address] [place], [address] Platelet mean volume (Bld) [Entitic vol] 12.2 fL High 6.2-12.0 [facility] Comment on above: Performed By: #### L 100.0100, L501.5425, L500.2500 #### [facility] [address] [place], [address] Platelets (Bld) [#/Vol] 140 10*3/uL Low 150-450 [facility] Comment on above: Performed By: #### L 100.0100, L501.5425, L500.2500 #### [facility] [address] [place], [address] RBC (Bld) [#/Vol] 3.49 10*6/uL Low 4.2-5.4 [facility] Comment on above: Performed By: #### L 100.0100, L501.5425, L500.2500 #### [facility] [address] [place], [address] RDW SD 53.8 fl High 35.1-43.9 [facility] Comment on above: Performed By: #### L 100.0100, L501.5425, L500.2500 #### [facility] [address] [place], [address] WBC (Bld) [#/Vol] 8.4 10*3/uL Normal 4.4-11.0 [facility] Comment on above: Performed By: #### L 100.0100, L501.5425, L500.2500 #### [facility] [address] [place], [address] Echo Completeon 07-03-2024 Echo Complete [facility] [address] [place] [address] Echo Complete 07/04/24 0757 MR#: [id number] Acct: [id number] Name: NICOLE SALVADOR Rep #: [id number] : 1935 89 From: Ewa Pittman MD Attending Dr: Dr. Jim Jerez DO Status: ADM IN Ordering Dr: Melody Patrick DO Date: 07/03/24 Location: PCU Sex: F AA Admitted: 07/03/24 Reason For Study : Syncope Procedure This was a 2D Doppler, Color Flow transthoracic echocardiogram. Exam performed portable in patient room. Left Ventricle Normal LV size. Sigmoid septum. The estimated ejection fraction is 60 %. No regional wall motion abnormalities noted. Right Ventricle Normal RV size. Normal systolic function. Atria Normal left atrium. Normal right atrium. No doppler evidence for ASD. Mitral Valve There is no mitral valve stenosis. Mild (1+) mitral valve insufficiency. Tricuspid Valve There is no tricuspid stenosis. Unable to estimate RV systolic pressure due to inadequate jet, pulmonary artery pressure probably normal. Aortic Valve Trisinus/trileaflet aortic valve. There is no aortic stenosis. No aortic valve insufficiency. Pulmonic Valve There is no pulmonic valvular stenosis. No pulmonic valve insufficiency. Great Vessels Normal aortic root. Pericardium/Pleural No pericardial effusion. MMode/2D Measurements Calculations EDV(MOD-sp2): 74.1 ml Ao root diam: 3.3 cm EDV(sp4-el): 82.6 ml EDV(MOD-sp4): 83.6 ml EDV(sp2-el): 76.6 ml ESV(MOD-sp4): 32.5 ml ESV(MOD-sp2): 25.7 ml ESV(sp2-el): 25.1 ml ESV(sp4-el): 29.4 ml LA A4 area: 23.1 cm?? FS: 32.6 % IVSd: 0.82 cm LAV(MOD-sp2): 32.9 ml LAV(MOD-bp): 53.7 ml LA dimension(2D): 3.4 cm LVAd ap4: 27.7 cm?? LAV(MOD-sp4): 65.5 ml LAV(MOD-bp) Indexed: 33.9 ml/m?? LVIDd: 5.3 cm LVAs ap2: 14.4 cm?? LVAd ap2: 27.2 cm?? LVLd ap4: 7.9 cm LVIDs: 3.5 cm LVAs ap4: 15.4 cm?? LVLs ap2: 7.0 cm LVLd ap2: 8.2 cm LVPWd: 0.85 cm LVLs ap4: 6.8 cm RVDd: 3.1 cm RA A4 area: 11.9 cm?? Doppler Measurements Calculations Ao max P.5 mmHg Ao V2 max: 196.9 cm/sec E/E' med: 13.5 E/E' lat: 11.4 LV V1 max: 126.2 cm/sec LV V1 max P.4 mmHg Lat Peak E' Laurel: 8.1 cm/sec Med Peak E' Laurel: 6.8 cm/sec MV A max laurel: 146.2 cm/sec MV dec slope: 523.7 cm/sec?? MV E max laurel: 92.5 cm/sec MV dec time: 0.18 sec PA V2 max: 118.4 cm/sec PA max P.6 mmHg Other Measurements Calculations EF(MOD-sp4): 61.2 % EF(MOD-sp2): 65.4 % EF(sp4-el): 64.5 % MV E/A: 0.63 SV(MOD-sp4): 51.1 ml SV(MOD-sp2): 48.4 ml SV(sp4-el): 53.3 ml Conclusions The estimated ejection fraction is 60 %. Mild (1+) mitral valve insufficiency. Ordering Physician: Melody Patrick Referring Physician: Kishan Camejo Performed By: Ofelia Sears RDCS Electronically signed by: Jennifer Pittman MD 07/04/2024, 2: 13 PM 07/04/24 1413 Date Ewa Pittman MD CC: Dr. Jim Jerez DO; Dr. Melody Patrick DO; Dr. Kishan Camejo MD Date Dictated: 07/04/24 0757 Date Transcribed: 07/04/24 1412 Counseling Services Manager: Signed Normal [facility] Emergency Department Summary on 07-03-2024 Emergency Department Summary [facility] Medical Records Department [address] [place] [address] Emergency Department Summary 07/03/24 MR#: [id number] Acct: [id number] Name: NICOLE SALVADOR Rep #: [id number] : 1935 89 From: Jose Thapa MD PCP: Dr. Kishan Camejo MD Status:ADM IN Location: [place] [address]1 HPI History of Present Illness Chief Complaint: Weakness Detail of Chief Complaint: Collapse and CPR at dialysis unit Informant: other (Report obtained from nurse to nurse since patient has dementia and only oriented x 1) Limited: dementia Onset/Context/Timing Onset: Today and Hours Context: Sudden Onset Timing: Intermittent Quality: No pulse and CPR started at dialysis Location: Cardiopulmonary arrest Current Severity: Severe Maximum Severity: Severe Worsened by: Unknown Relieved by: Presumed CPR and fluid bolus Associated Symptoms Associated Symptoms: Patient became unresponsive with no pulse and no breathing Narrative Narrative: Patient is a 89-year-old woman who was demented. She is only oriented x 1. Dr. Jim Shepherd's note was reviewed from June 27. She had very minimal verbal response. She basically nodded her head yes or no. Patient was at dialysis. She did not complete dialysis. She apparently stared became unresponsive stop breathing there was no pulse. CPR was started. CPR was less than 1 minute. She did just a fluid bolus through her dialysis catheter. Patient is unable to contribute much with regards to her history or physical. At 1 point nurse was concerned she had a stroke. When I went in to evaluate her when asked which arm or leg I was touching she would lift that arm or leg. Which is totally different than what the nurse got because she applied painful noxious stimuli with no response or movement. 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) [facility] Medical History TIA (transient ischemic attack) Anemia Hypertension ESRD (end stage renal disease) on dialysis Problem with dialysis access Chronic diastolic (congestive) heart failure End-stage renal disease (ESRD) History of CVA (cerebrovascular accident) (12/15/19) Essential hypertension Problem with dialysis access Respiratory failure with hypoxia Iron deficiency anemia RENAL FAILURE STAGE 6 Chronic renal failure, stage 5 Dementia Elevated troponin I level Metabolic acidosis Acute respiratory failure with hypoxia Anemia Iron deficiency anemia Chronic kidney disease (CKD) stage G5/A1, glomerular filtration rate (GFR) less than or equal to 15 mL/min/1.73 square meter and albuminuria creatinine ratio less than 30 mg/g Cough Shortness of breath Cerebellar infarct Speech apraxia Asthma Glaucoma Obesity (BMI 30.0-34.9) Hyperlipidemia Home Medications ???Medication ???Instructions ???Recorded ???Last Taken ???Type timolol maleate 0.5 % eye drops 1 drp EACH EYE BID GLAUCOMA 03/15/23 History levothyroxine 100 mcg tablet 100 mcg PO DAILY thyroid 07/31/19 03/15/23 History isosorbide mononitrate 60 mg 60 mg PO SUMOWEFR HTN 10/26/19 History tablet,extended release 24 hr nifedipine 60 mg tablet,extended 60 mg PO DAILY BLOOD PRESSURE 04/2303/15/23 History release albuterol sulfate 90 mcg/actuation 2 inh inhalation Q4H PRN Shortne ss 07/17/22 Unknown History aerosol inhaler Of Breath aspirin 81 mg tablet,delayed 81 mg PO DAILY HEART HEALTH 03/15/23 History release budesonide-formotero l HFA 160 1 inh inhalation QHS SHORTNESS OF 07/17/22 03/14/23 History mcg-4.5 mcg/actuation aerosol BREATH inhaler dextran 70-hypromellose 0.1 %-0.3 1 drp ophthalmic (eye) QHS 03/14/23 History % eye drops albuterol sulfate 2.5 mg/3 mL 2.5 mg continuous nebulization Q4H 12/05/22 Unknown History (0.083 %) solution for nebulization PRN SOB/Wheezing clopidogrel 75 mg tablet 75 mg PO DAILY #30 tabs 12/06/22 1 Rx atorvastatin 20 mg tablet 40 mg (2 x 20 mg) PO DAILY 3 03/14/23 Rx CHOLESTEROL #1 TAB acetaminophen 500 mg capsule 500 mg PO Q6H PRN fever or pain Unknown History bisacodyl 10 mg rectal suppository 10 mg MA DAILY PRN constipation 08/29/23 Unknown History donepezil 10 mg tablet 10 mg PO DAILY 08/29/23 Unknown Hi story magnesium hydroxide 400 mg/5 mL 5 ml PO DAILY PRN constipation 01/13 Unknown History oral suspension (Milk of Magnesia) mineral oil (Fleet Mineral Oil 118 ml MA DAILY PRN constipation 0 09/12/23 Unknown History enema) memantine 5 mg tablet 5 mg PO BID 03/12/24 Unknown Histo ry sevelamer carbonate 800 mg tablet 800 mg PO TID 07/03/24 Unknown Hi story vitamin B complex-vitamin C-folic 1 tab DAILY 07/03/24 Unknown Hist ory (more content not included)... Normal [facility] H AND P Exam - Hospitaliston 07-03-2024 H&P Exam - Hospitalist [facility] Medical Records Department [address] [place] [address] H P Exam - Hospitalist 07/03/24 1909 MR#: [id number] Acct: [id number] Name: NICOLE SALVADOR Rep #: [id number] : 1935 89 From: Melody Patrick DO PCP: Dr. Kishan Camejo MD Status:ADM [id number] - General General Date of Admission: 07/03/24 Date of Service: 07/03/24 Chief Complaint: Syncope and collapse HPI Narrative NICOLE SLAVADOR, is a 89 F who presented who presented to the emergency department [facility] on 07/03/2024 after a syncopal episode at dialysis. Patient was almost done with dialysis and had about 20 minutes left at which time it was reported her eyes, rolled back in her head. Pulses were not able to be obtained and she received a brief stint of CPR however had return of baseline mental status fairly shortly and CPR was discontinued. Patient has had episodes like this previously and I highly suspect she gets hypotensive to the point her peripheral pulses are not palpable. Given this episode of dialysis she was brought to the emergency department for further evaluation. At baseline the patient is only alert and oriented x 1 due to dementia. During this event she was given fluid boluses through her dialysis catheter. There were also reported issues with her left upper extremity fistula. By the time of my evaluation the patient had no complaints and per family was at her baseline. Family was fairly unconcerned as they indicate she has had this several times previously. Vital signs on presentation showed a temperature of 97.7, heart rate 80, respiratory rate 18, initial blood pressure was 90/48 and pulse ox was 98% on room air. Blood pressure improved to 139/91 prior to transitioning out of the emergency department. CBC shows chronic stable anemia with a hemoglobin of 9.7. Platelet count was 140,000 which again is her baseline. BMP showed stable electrolytes with an elevated BUN and creatinine consistent with her baseline. Lactic acid was normal at 1.3, initial troponin was 46 with a repeat of 42. EKG was not consistent with any ischemia and stable when compared to previous. Given her syncopal episode and her fistula malfunction we will admit her to PCU for ongoing cardiac monitoring and vascular surgery will be consulted to assist with her left upper extremity AV fistula. 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 Problem with dialysis access Chronic diastolic (congestive) heart failure End-stage renal disease (ESRD) History of CVA (cerebrovascular accident) (12/15/19) Essential hypertension Problem with dialysis access Respiratory failure with hypoxia Iron deficiency anemia RENAL FAILURE STAGE 6 Chronic renal failure, stage 5 Dementia Elevated troponin I level Metabolic acidosis Acute respiratory failure with hypoxia Anemia Iron deficiency anemia Chronic kidney disease (CKD) stage G5/A1, glomerular filtration rate (GFR) less than or equal to 15 mL/min/1.73 square meter and albuminuria creatinine ratio less than 30 mg/g Cough Shortness of breath Cerebellar infarct Speech apraxia Asthma Glaucoma Obesity (BMI 30.0-34.9) Hyperlipidemia Home Medications ???Medication ???Instructions ???Recorded ???Last Taken ???Type timolol maleate 0.5 % eye drops 1 drp EACH EYE BID GLAUCOMA 03/15/23 History levothyroxine 100 mcg tablet 100 mcg PO DAILY thyroid 07/31/19 03/15/23 History isosorbide mononitrate 60 mg 60 mg PO SUMOWEFR HTN 10/26/19 History tablet,extended release 24 hr nifedipine 60 mg tablet,extended 60 mg PO DAILY BLOOD PRESSURE /2 06/1203/15/23 History release albuterol sulfate 90 mcg/actuation 2 inh inhalation Q4H PRN Shortne ss 07/17/22 Unknown History aerosol inhaler Of Breath aspirin 81 mg tablet,delayed 81 mg PO DAILY HEART HEALTH 03/15/23 History release budesonide-formotero l HFA 160 1 inh inhalation QHS SHORTNESS OF 07/17/22 03/14/23 History mcg-4.5 mcg/actuation aerosol BREATH inhaler dextran 70-hypromellose 0.1 %-0.3 1 drp ophthalmic (eye) QHS 03/14/23 History % eye drops albuterol sulfate 2.5 mg/3 mL 2.5 mg continuous nebulization Q4H 12/05/22 Unknown History (0.083 %) solution for nebulization PRN SOB/Wheezing clopidogrel 75 mg tablet 75 mg PO DAILY #30 tabs 12/06/22 1 Rx atorvastatin 20 mg tablet 40 mg (2 x 20 mg) PO DAILY 3 03/14/23 Rx CHOLESTEROL #1 TAB acetaminophen 500 mg capsule 500 mg PO Q6H PRN fever or pain Unknown History bisacodyl 10 mg rectal suppository 10 mg MA DAILY PRN constipation 08/29/23 Unknown History donepezil 10 mg tablet 10 mg PO DAILY 08/29/[address] (more content not included)... Normal [facility] L501.4020on 07-03-2024 TROPONIN-I HS 42 pg/mL Normal 3.0-54.0 [facility] Comment on above: Result Comment: Plea se Note: New Test Units and Gender Specific Reference Ranges. For more information see Policy Stat Procedure [place] High Sensitivity Troponin (TNIH) and attachments. Performed By: #### L 501.4020 ####[facility] [id number] [place], [address] L501.5425on 07-03-2024 TROPONIN-I HS 46 pg/mL Normal 3.0-54.0 [facility] Comment on above: Order Comment: 1 Y Result Comment: Plea se Note: New Test Units and Gender Specific Reference Ranges. For more information see Policy Stat Procedure [place] High Sensitivity Troponin (TNIH) and attachments. Performed By: #### L 100.0100, L501.5425, L500.2500 #### [facility] [address] [place], [address] Lactic Acidon 07-03-2024 Lactate [Moles/Vol] 1.3 mmol/L Normal 0.4-1.9 [facility] Comment on above: Order Comment: Y Performed By: #### L 503.6005 ####[facility] [id number] [place], [address] Operative Reporton 5 Operative Report [facility] Medical Records Department [address] [place] [address] Operative Report 06/27/24 1113 MR#: [id number] Acct: [id number] Name: NICOLE SALVADOR Rep #: [id number] : 1935 89 From: Jim Shepherd MD PCP: Dr. 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 She had a duplex that did not reveal any focal stenosis and did reveal globally enlarged fistula and outflow vein. She is taken now for fistulogram to assess for central venous stenosis and potential planning for open revision. Description of procedure: Upon obtaining form consent and verification correct patient procedure site patient taken the [employer] where she was positioned prepped and draped in usual sterile fashion. Timeouts performed conscious sedation administered Versed and fentanyl. Skin overlying the fistula just beyond the anastomosis was anesthetized 1% lidocaine the vessel accessed under ultrasound guidance with a micropuncture needle wire. This was then exchanged for a 6 Vietnamese fistula sheath through which hand-injection digital subtraction fistulogram was performed including reflux into the arterial inflow and outflow assessment through to the atriocaval junction. There was stenosis identified at the costoclavicular angle with adjacent collaterals on the chest wall. An 018 wire was then advanced through the sheath traversing the area of stenosis. Intravascular ultrasound probe was then advanced into the innominate vein and recorded pullback performed of the innominate, axillary subclavian, basilic vein. This revealed 76% stenosis at the area of concern at the costoclavicular angle. The patient was then heparinized allowed to circulate for 3 minutes. The 6 Vietnamese sheath was then exchanged for a 7 Vietnamese sheath and through this and 8 mm x 2 Bard conquest balloon was advanced and centered at the lesion. He was inflated to nominal for 2 minutes and then deflated withdrawn. Next a Bard conquest 10 mm x4 was advanced and inflated to nominal and then deflated withdrawn. Finally a [employer] [place] 12 x 4 was advanced centered on the lesion inflated to nominal for 2 minutes and then deflated withdrawn. With each subsequent inflation there appeared to be significant rebound of the lesion so a [employer] cutting balloon 8 mm x 2 was then advanced centered on the lesion inflated to nominal for 2 minutes and then deflated and withdrawn. Completion venogram revealed improved luminal caliber with brisk contrast transit through the area of intervention though there was still some filling of the collaterals. Given the location it was not an option to place any stent and given the reference vessel sizes it was not felt to be safe to increase the caliber of the balloon. Send there was improvement the hope was that this would provide sufficient outflow to decrease her bleeding complications. Finally a Bard Feli tonics 12 x 4 paclitaxel coated angioplasty balloon was advanced in position centered on the lesion inflated to nominal for 2 minutes then deflated and withdrawn. Intravascular ultrasound probe was then readvanced and with ordered pullback performed of the area of the intervention. This revealed significant improvement in lumen caliber with near doubling of the lumen now with less than 50% stenosis. Seeing no further options for intervention a 4-0 Ethilon suture was placed at the access site and the sheath withdrawn followed by 5 minutes of manual pressure. The patient was then taken the recovery with plan discharged to her ECF. Surgical Findings: See above Complications Complications: No 06/27/24 1122 Cosigner Signature (if applicable): CC: Dr. Jim Shepherd MD; Dr. Kishan Camejo MD Signed Normal [facility] AV Fistula/Dialysis Graft Sc anon 06-08-2024 AV Fistula/Dialysis Graft Scan [facility] Cardiovascular Services [address] [place] [address] AV Fistula/Dialysis Graft Scan 06/08/24 1324 MR#: [id number] Acct: [id number] Name: NICOLE SALVADOR Rep #: [id number] : 1935 89 From: Jim Shepherd MD Attending Dr: OSBALDO Mitchell Status: REG CLI Ordering Dr: Liliana Denise Date: 06/08/24 Location: CVS Sex: F AA Admitted: Reason For Study: Fistula malfunction LEFT Inflow, 160.5/64.1 cm/sec. Inflow, 1773 ml/min. Prox anastamosis, 250.1/110.7 cm/sec. Prox anastamosis, 1417 ml/min. Prox graft, 320.8/162.1 cm/sec. Prox graft, 49639 ml/min. Mid graft, 289.1/83.5 cm/sec. Mid graft, 04485 ml/min. Distal graft, 278.8/153.5 cm/sec. Distal graft, 9678 ml/min. Outflow, 149.4/89.8 cm/sec. Outflow, 3249 ml/min. VL/AV Fistula/Dialysis Graft Scan Interpretation Summary Patent left upper extremity fistula with no stenosis, adequate flow volume, enlarged throughout with largest diameter 2.2 cm Ordering Physician: Liliana Denise Referring Physician: Kishan Camejo Performed By: Tamiko Arzate RVT 06/11/24 1146 Date Jim Shepherd MD CC: OSBALDO Mitchell; Dr. Kishan Camejo MD Date Dictated: 06/08/24 1324 Date Transcribed: 06/11/24 1146 Counseling Services Manager: Signed Normal [facility] MR/BMSStephanieBVSon 05-30-2024 MR/BMS.BVS [facility] Vascular Surgery [address] [place] [address] OFFICE VISIT Date of Service: 05/30/24 MR#: [id number] Acct: [id number] Name: NICOLE SALVADOR Rep #: [id number] : 1935 Provider: OSBALDO Mitchell Age/Sex: 89/F [place] [facility] [place] Status: Signed Intake Vital Signs 04/24/24 13:02 05/30/24 14:08 Height 5 ft 3 in Weight: 131 lb BP 122/60 H Blood Pressure Location Rt brachial Position Sitting Respiration 16 Pulse 86 Pulse Source Monitor Temp 97.8 F Temp Source Temporal Pulse Oximetry (%) 96 Oxygen Delivery Method room air Intake Visit Reasons: Uncontrolled bleeding post dialysis Chief Complaint: establish care Is patient in pain?: No Allergies erythromycin base Allergy (Verified 05/30/24 14:09) Rash lisinopril Allergy (Verified 05/30/24 14:09) Unknown NSAIDS (Non-Steroidal Anti-Inflamma Allergy (Verified 05/30/24 14:09) Other Salicylates Allergy (Verified 05/30/24 14:09) Other Medications ???Medication ???Instructions ???Recorded ???Confirmed ???Type timolol maleate 0.5 % eye drops 1 drp EACH EYE BID GLAUCOMA 11/26/15 05/30/24 History calcium acetate(phosphat bind) 667 1,334 mg PO TIDCM RENAL DIALYSIS 07/14/19 05/30/24 History mg capsule levothyroxine 100 mcg tablet 100 mcg PO DAILY thyroid 07/31/19 05/30/24 History isosorbide mononitrate 60 mg 60 mg PO SUMOWEFR HTN 10/26/19 05/30/24 History tablet,extended release 24 hr nifedipine 60 mg tablet,extended 60 mg PO DAILY BLOOD PRESSURE 05/12/21 05/30/24 History release albuterol sulfate 90 mcg/actuation 2 inh inhalation Q4H PRN Shortness 07/17/22 05/30/24 History aerosol inhaler Of Breath aspirin 81 mg tablet,delayed 81 mg PO DAILY HEART HEALTH 07/17/22 09/12/23 History release budesonide-formotero l HFA 160 1 inh inhalation QHS SHORTNESS OF 07/17/22 05/30/24 History mcg-4.5 mcg/actuation aerosol BREATH inhaler dextran 70-hypromellose 0.1 %-0.3 1 drp ophthalmic (eye) QHS 07/17/22 05/30/24 History % eye drops hydrocortisone probutate 0.1 % 1 applic topical Q12H PRN 07/17/22 05/30/24 History topical cream (Pandel) RASH/ITCHING albuterol sulfate 2.5 mg/3 mL 2.5 mg continuous nebulization Q4H 12/05/22 05/30/24 History (0.083 %) solution for nebulization PRN SOB/Wheezing clopidogrel 75 mg tablet 75 mg PO DAILY #30 tabs 12/06/22 05/30/24 Rx atorvastatin 20 mg tablet 40 mg (2 x 20 mg) PO DAILY 03/16/23 05/30/24 Rx CHOLESTEROL #1 TAB acetaminophen 500 mg capsule 500 mg PO Q6H PRN 08/29/23 05/30/24 History bisacodyl 10 mg rectal suppository 10 mg MA DAILY PRN 08/29/23 05/30/24 History donepezil 10 mg tablet 10 mg PO DAILY 08/29/23 05/30/24 History magnesium hydroxide 400 mg/5 mL 5 ml PO DAILY PRN 08/29/23 05/30/24 History oral suspension (Milk of Magnesia) mineral oil (Fleet Mineral Oil 118 ml MA DAILY PRN 09/12/23 05/30/24 History enema) memantine 5 mg tablet 5 mg PO BID 03/12/24 05/30/24 History Is last menstrual period known: No Post menopausal: Yes Patient : No Have you fallen in the past year?: Yes PFSH Medical History TIA (transient ischemic attack) Anemia Hypertension ESRD (end stage renal disease) on dialysis Problem with dialysis access Chronic diastolic (congestive) heart failure End-stage renal disease (ESRD) History of CVA (cerebrovascular accident) (12/15/19) Essential hypertension Problem with dialysis access Respiratory failure with hypoxia Iron deficiency anemia RENAL FAILURE STAGE 6 Chronic renal failure, stage 5 Dementia Elevated troponin I level Metabolic acidosis Acute respiratory failure with hypoxia Anemia Iron deficiency anemia Chronic kidney disease (CKD) stage G5/A1, glomerular filtration rate (GFR) less than or equal to 15 mL/min/1.73 square meter and albuminuria creatinine ratio less than 30 mg/g Cough Shortness of breath Cerebellar infarct Speech apraxia Asthma Glaucoma Obesity (BMI 30.0-34.9) Hyperlipidemia Surgical History History of loop recorder (07/20/19) s/p left AV fistula creation (02/19/19) Hx of foot surgery Hx of thyroidectomy Hx of cataract extraction Hx of hysterectomy Family History Mother Colon cancer Hypertension Father Hypertension Social History Smoking Status: Never smoker alcohol intake: never substance use type: does not use caffeine: Yes what type of physical activity do you participate in: none frequency: does not exercise HPI HPI HPI: NICOLE SALVADOR, is a 89 F who presents to the office today for evaluation of prolonged bleeding from her LUE (more content not included)... Normal [facility] Emergency Department Summary on 04-24-2024 Emergency Department Summary [facility] Medical Records Department [address] [place] [address] Emergency Department Summary 04/24/24 MR#: [id number] Acct: [id number] Name: NICOLE SALVADOR Rep #: [id number] : 1935 89 From: Jolie Mosqueda DO PCP: Dr. Kishan Camejo MD Status:REG ER Location: ED HPI History of Present Illness Chief Complaint: Wound Check Informant: patient, family and EMS Limited: dementia Narrative Narrative: Patient is an 89-year-old female with history of end-stage renal disease on hemodialysis presenting from dialysis for concern of bleeding from fistula. Patient has a fistula in her left upper arm. Family notes that she often has to wait about 30 minutes to get the bleeding to stop after dialysis. She had a full session of dialysis today but she continued to have bleeding and it took about an hour to get to stop. The bleeding had stopped by the time EMS arrived however dialysis still wanted her to be evaluated further in the emergency room. Patient has no complaints at this time, denies any lightheadedness or dizziness. She states she is hungry and ready for lunch. She is not on any blood thinners. No other complaints or concerns reported. Patient is a resident of the [facility]. She uses a walker at baseline. [facility] Medical History TIA (transient ischemic attack) Anemia Hypertension ESRD (end stage renal disease) on dialysis Problem with dialysis access Chronic diastolic (congestive) heart failure End-stage renal disease (ESRD) History of CVA (cerebrovascular accident) (12/15/19) Essential hypertension Problem with dialysis access Respiratory failure with hypoxia Iron deficiency anemia RENAL FAILURE STAGE 6 Chronic renal failure, stage 5 Dementia Elevated troponin I level Metabolic acidosis Acute respiratory failure with hypoxia Anemia Iron deficiency anemia Chronic kidney disease (CKD) stage G5/A1, glomerular filtration rate (GFR) less than or equal to 15 mL/min/1.73 square meter and albuminuria creatinine ratio less than 30 mg/g Cough Shortness of breath Cerebellar infarct Speech apraxia Asthma Glaucoma Obesity (BMI 30.0-34.9) Hyperlipidemia Home Medications ???Medication ???Instructions ???Recorded ???Last Taken ???Type timolol maleate 0.5 % eye drops 1 drp EACH EYE BID GLAUCOMA 11/26/15 03/15/23 History calcium acetate(phosphat bind) 667 1,334 mg PO TIDCM RENAL DIALYSIS 07/14/19 03/15/23 History mg capsule levothyroxine 100 mcg tablet 100 mcg PO DAILY thyroid 07/31/19 03/15/23 History isosorbide mononitrate 60 mg 60 mg PO SUMOWEFR HTN 10/26/19 03/14/23 History tablet,extended release 24 hr nifedipine 60 mg tablet,extended 60 mg PO DAILY BLOOD PRESSURE 05/12/21 03/15/23 History release albuterol sulfate 90 mcg/actuation 2 inh inhalation Q4H PRN Shortness 07/17/22 Unknown History aerosol inhaler Of Breath aspirin 81 mg tablet,delayed 81 mg PO DAILY HEART HEALTH 07/17/22 03/15/23 History release budesonide-formotero l HFA 160 1 inh inhalation QHS SHORTNESS OF 07/17/22 03/14/23 History mcg-4.5 mcg/actuation aerosol BREATH inhaler dextran 70-hypromellose 0.1 %-0.3 1 drp ophthalmic (eye) QHS 07/17/22 03/14/23 History % eye drops hydrocortisone probutate 0.1 % 1 applic topical Q12H PRN 07/17/22 Unknown History topical cream (Pandel) RASH/ITCHING albuterol sulfate 2.5 mg/3 mL 2.5 mg continuous nebulization Q4H 12/05/22 Unknown History (0.083 %) solution for nebulization PRN SOB/Wheezing clopidogrel 75 mg tablet 75 mg PO DAILY #30 tabs 12/06/22 03/15/23 Rx atorvastatin 20 mg tablet 40 mg (2 x 20 mg) PO DAILY 03/16/23 03/14/23 Rx CHOLESTEROL #1 TAB acetaminophen 500 mg capsule 500 mg PO Q6H PRN 08/29/23 Unknown History bisacodyl 10 mg rectal suppository 10 mg MA DAILY PRN 08/29/23 Unknown History donepezil 10 mg tablet 10 mg PO DAILY 08/29/23 Unknown History magnesium hydroxide 400 mg/5 mL 5 ml PO DAILY PRN 08/29/23 Unknown History oral suspension (Milk of Magnesia) mineral oil (Fleet Mineral Oil 118 ml MA DAILY PRN 09/12/23 Unknown History enema) memantine 5 mg tablet 5 mg PO BID 03/12/24 Unknown History Allergy/AdvReac Type Severity Reaction Status Date / Time erythromycin base Allergy Rash Verified 04/24/24 13:02 lisinopril Allergy Unknown Verified 04/24/24 13:02 NSAIDS (Non-Steroidal Allergy Other Verified 04/24/24 13:02 Anti-Inflamma Salicylates Allergy Other Verified 04/24/24 13:02 Family History Mother Colon cancer Hypertension Father Hypertension Surgical History History of loop recorder (07/20/19) s/p left AV fistula creation (02/19/19) Hx of foot surgery Hx of thyroi (more content not included)... Normal [facility] LIZ + Protein Elect, Serumon 03-15-2024 Albumin [Mass/Vol] 3.6 g/dL Normal 2.9-4.4 [facility] Comment on above: Order Comment: N Performed By: #### L 3100.3425, L3600.4030 #### [facility] [address] [place], [address] Albumin/Globulin [Mass ratio] 1.3 {ratio} Normal 0.7-1.7 [facility] Comment on above: Order Comment: N Performed By: #### L 3100.3425, L3600.4030 #### [facility] [address] [place], [address] DENMT-3-TSIL 0.2 g/dL Normal 0.0-0.4 [facility] Comment on above: Order Comment: N Performed By: #### L 3100.3425, L3600.4030 #### [facility] [address] [place], [address] JDJLV-8-QQLH 0.6 g/dL Normal 0.4-1.0 [facility] Comment on above: Order Comment: N Performed By: #### L 3100.3425, L3600.4030 #### [facility] [address] [place], [address] BETA GLOBULIN 0.8 g/dL Normal 0.7-1.3 [facility] Comment on above: Order Comment: N Performed By: #### L 3100.3425, L3600.4030 #### [facility] [address] [place], [address] GAMMA GLOBULIN 1.2 g/dL Normal 0.4-1.8 [facility] Comment on above: Order Comment: N Performed By: #### L 3100.3425, L3600.4030 #### [facility] [address] [place], [address] Globulin (S) [Mass/Vol] 2.8 g/dL Normal 2.2-3.9 [facility] Comment on above: Order Comment: N Performed By: #### L 3100.3425, L3600.4030 #### [facility] [address] [place], [address] LIZ RESULT,S Comment Normal . [facility] Comment on above: Order Comment: N Result Comment: No m onoclonality detected. Performed By: #### L 3100.3425, L3600.4030 #### [facility] [address] [place], [address] IMMUNOGLOB A QN 359 mg/dL Normal 64-422 [facility] Comment on above: Order Comment: N Performed By: #### L 3100.3425, L3600.4030 #### [facility] [address] [place], [address] IMMUNOGLOB G QN 1112 mg/dL Normal 586-1602 [facility] Comment on above: Order Comment: N Performed By: #### L 3100.3425, L3600.4030 #### [facility] [address] [place], [address] IMMUNOGLOB M QN 231 mg/dL High 26-217 [facility] Comment on above: Order Comment: N Performed By: #### L 3100.3425, L3600.4030 #### [facility] [address] [place], [address] M-Valentín Not Observed Normal Not Observed [facility] Comment on above: Order Comment: N Performed By: #### L 3100.3425, L3600.4030 #### [facility] [address] [place], [address] NOTE: Comment Normal . [facility] Comment on above: Order Comment: N Result Comment: Prot ein electrophoresis scan will follow via computer, mail, or orthopedic dentist delivery. Performed By: #### L 3100.3425, L3600.4030 #### [facility] [address] [place], [address] Protein [Mass/Vol] 6.4 g/dL Normal 6.0-8.5 [facility] Comment on above: Order Comment: N Performed By: #### L 3100.3425, L3600.4030 #### [facility] [address] [place], [place], [id number] Immunofixation Urineon 03-15 LIZ Urine Comment: Normal . [facility] Comment on above: Order Comment: N Result Comment: Pres ence of monoclonal protein is unclear at this time. Suggest repeat in 3 to 6 months if clinically indicated. Performed at: - [facility] [id number] Chief Investment Officer: Phil Reagan PhD, Phone: [phone] Performed By: #### L 3100.3425, L3600.4030 #### [facility] [address] [place], [place], [address] Neurology Visit Reporton Neurology Visit Report [facility] [address], [address] [place], [place] [address] OFFICE VISIT Date of Service: 03/12/24 MR#: [id number] Acct: [id number] Name: NICOLE SALVADOR Rep #: [id number] : 1935 Provider: Dr. Elkin clemente MD Age/Sex: 89/F [place] [facility] [place] Status: Signed HPI [facility] Chief Complaint: Details: Interim History: Nicole returns for follow-up visit. She has a history of hypertension, stroke/TIA, hypothyroidism, end-stage renal disease on hemodialysis. She has exhibited progressive cognitive decline since at least 2020. She has had 3-4 TIAs since around 2019. These have manifested with transient extremity weakness (right or left-sided) and aphasia; the symptoms typically resolve within 1 day however she has had worsening cognitive deficits following most of these episodes. She had an acute left temporal and left insular cortex ischemic stroke in 2017 that manifested with right-sided weakness. She was treated in 2019 with tPA for cerebrovascular ischemic event. She has been residing in a shelter facility since 2018. She forgets conversations and repeats conversations. She forgets past events. Her memory had worsened over time. She has word finding difficulty. She has not not become lost in the shelter facility. She requires assistance with activities such as bathing. She is no longer able to manage her own finances. She has been able to feed herself. She denied having neck pain, low back pain, numbness, weakness, headaches or vision change. She has had bilateral cataract surgeries. She has glaucoma. She has chronic hearing loss. She has gait imbalance that has been present since 2019. She uses a rollator. She had an avulsion fracture of the left greater trochanter in July 2023. She has an implanted cardiac loop recorder. She takes donepezil. Memantine was initiated earlier in 2023. No further change in her cognitive deficits has been noticed within recent months according to a family member who accompanies her today. Her serum free light chains is abnormal. Mini-Mental status exam score was 11/30 in April 2023 and 13/30 in August 2023. Physical Exam: Neuro: The patient is awake; she is bradyphrenic; Mini-Mental status exam score is 12/30 Heart: Regular rhythm and rate Supplemental Info Head MRI (01/30/2018): FINDINGS: Large cortical-based restricted diffusion involving the left temporal lobe and left insular cortex. This is also visible on the T2 FLAIR sequence. This is subacute ischemic infarct. There is an old cortical gyral cystic infarct in the right lingual gyrus. Normal size of the ventricles and extra-axial spaces for the patient's age. Multiple periventricular white matter T2 FLAIR hyperintensity foci are chronic white matter ischemic changes. Normal bilateral basal ganglia. Old lacunar cystic infarct in the left thalamus. Normal right thalamus. There is no extra-axial fluid accumulation. Normal flow voids within the major intracranial circulation suggesting patency by spin echo criteria. Normal sella turcica, pituitary gland, infundibular stalk, optic chiasm and hypothalamus. Normal tectal plate and pineal gland. Normal midbrain, bree and medulla. Normal cerebellum. Normal basal cisterns. Normal bilateral temporal bones. Normal bilateral internal auditory canals. No demonstrated orbital abnormality, within the constraints of a routine brain study. Normal visualized paranasal sinuses. Normal calvarium and skull base. Normal visualized soft tissue structures. C3-C4 posterior midline disc protrusion with suspicious central canal stenosis. IMPRESSION: 1. Subacute cortical based ischemic infarct involving the left temporal lobe and a portion of the left insular cortex. 2. Old cortical based a cystic infarct with focal atrophy in the right posterior lingual gyrus. 3. Chronic periventricular white matter ischemic changes in both cerebral hemispheres. CMP (07/18/2022): BUN 29 (high), creatinine 6.69 (high), EGFR 8 (low) EKG (12/05/2022): Normal sinus rhythm. Right bundle branch block. Left anterior fascicular block.Bifascicula r block. Abnormal EKG Cardiac echo (12/05/2022): The left ventricular ejection fraction is 65 %. Stage 2 diastolic dysfunction. Mild-Moderate (1-2+) eccentric mitral valve insufficiency. Head MRI (12/06/2022): COMPARISON: December 06, 2022 MRI, March 15, 2023 CT FINDINGS: There is moderate cerebral atrophy with widening of the extra-axial spaces and ventricular dilatation. There are multiple white matter hyperintensities, distributed throughout the deep white matter tracts of the cerebral hemispheres, consistent with moderate chronic white matter ischemic changes. There is left temporal and right occipital volume loss and encephalomalacia. There is right frontal gliosis. There is no evidence for recent intracranial ischemia or other cause of cytot (more content not included)... Normal [facility] Folic acid serumOrdered By: Elkin Presley on 05-02-2023 Folate [Mass/Vol] 53.50 ng/mL 3.1-55.4 [facility] - Chemistry and C hemistry - challengeOrdered By: Elkin Presley on 05-02-2023 Cobalamin (Vitamin B12) [Mass/Vol] 883 pg/mL 211-911 [facility] No Panel InformationOrdered By: Elkin Presley on 05-02-2023 Free Lambda Light Chains, Quant 105.1 mg/L 5.7-26.3 [facility] Whole Blood Vitamin B1 Level 89.6 nmol/L 66.5-200.0 [facility] Comment on above: Performed at: [facility] [id number] [place], [place] [id number] Director: Phil Reagan PhD, Phone: [phone] at: [facility] [id number] Director: Fernanda Hood MD, Phone: [phone] Serum immunoglobulin kappa l ight chains/immunoglobulin lambda light chains mass ratioOrdered By: Elkin Presley on 05-02-2023 Immunoglobulin light chains.kappa/Immunoglob ulin light chains.lambda (S) [Mass ratio] 1.79 0.26-1.65 [facility] Serum or plasma immunoglobul in kappa light chains measurement (mass/volume)Ordered By: Elkni Presley on 05-02-2023 Immunoglobulin light chains.kappa [Mass/Vol] 188.6 mg/L 3.3-19.4 [facility] Absolute lymphocyte countOrd ered By: Micha Feliciano on 03-16-2023 Lymphocytes Auto (Unsp spec) [#/Vol] 1.64 10*3/uL 0.83-4.51 [facility] Basophil percentageOrdered B y: Micha Feliciano on 03-16-2023 Basophils/100 WBC (Bld) 1.0 % 0-1 [facility] Chloride [Moles/Vol] 104 mmol/L 98-107 [facility] Cholesterol [Mass/Vol] 101 mg/dL <200 [facility] Comment on above: <200 mg/dL Desirable 200-240 mg/dL Borderline >240 mg/dL High Risk Eosinophils/100 WBC (Bld) 3.5 % 0-5 [facility] Glucose [Mass/Vol] 85 mg/dL 74-106 [facility] Neutrophils (Bld) [#/Vol] 3.3 10*3/uL 2.0-7.7 [facility] Neutrophils/100 WBC (Bld) 56.7 % 47-70 [facility] Potassium [Moles/Vol] 5.1 mmol/L 3.5-5.1 [facility] Sodium [Moles/Vol] 139 mmol/L 136-145 [facility] Triglyceride [Mass/Vol] 33 mg/dL <199 [facility] Comment on above: The drugs N-Acetylcy steine and Metamizole may falsely depress this assay.Serum Triglycerides Reference Interval Normal <150 mg/dL Borderline high 150 - 199 mg/dL High 200 - 499 mg/dL Very High > or = 500 mg/dL WBC (Bld) [#/Vol] 5.7 10*3/uL 4.4-11.0 [facility] Blood erythrocytes count (nu mber/volume)Ordered By: Micha Feliciano on 03-16-2023 RBC (Bld) [#/Vol] 3.44 10*6/uL 4.2-5.4 [facility] Blood hemoglobin measurement (mass/volume)Ordered By: Micha Feliciano on 03-16-2023 Hemoglobin (Bld) [Mass/Vol] 10.0 g/dL 12.0-15.0 [facility] Blood lymphocytes/100 leukoc ytesOrdered By: Micha Feliciano on 03-16-2023 Lymphocytes/100 WBC (Bld) 28.6 % 19-41 [facility] Blood monocytes/100 leukocyt esOrdered By: Micha Feliciano on 03-16-2023 Monocytes/100 WBC (Bld) 9.9 % 0-10 [facility] Blood platelet mean volumeOr dered By: Micha Feliciano on 03-16-2023 Platelet mean volume (Bld) [Entitic vol] 11.8 fL 6.2-12.0 [facility] Determination of erythrocyte mean corpuscular volume (MCV)Ordered By: Micha Feliciano on 03-16-2023 MCV (RBC) [Entitic vol] 92.2 fL 81-99 [facility] Hematocrit Auto (Bld) [Volum e fraction]Ordered By: Micha Feliciano on 03-16-2023 Hematocrit (Bld) [Volume fraction] 31.7 % 37-47 [facility] - Chemistry and C hemistry - challengeOrdered By: Micha Feliciano on 03-16-2023 CO2 [Moles/Vol] 29.0 mmol/L 21.0-32.0 [facility] Urea nitrogen/Creatinine [Mass ratio] 6.9 mg/mg 10- [facility] - Hematology and Cell countsOrdered By: Micha Feliciano on 03-16-2023 Erythrocyte distribution width (RBC) [Entitic vol] 48.5 fL 35.1-43.9 [facility] Erythrocyte distribution width (RBC) [Ratio] 14.5 % 11.6-14.6 [facility] Immature granulocytes/100 WBC (Bld) 0.300 % 0.0-0.9 [facility] Comment on above: IG% - Immature Granu locytes (promyelocytes, myelocytes and metamyelocytes) > 1% indicates that a LEFT SHIFT is Present. MCH (RBC) [Entitic mass] 29.1 pg 27.0-32.0 [facility] Nucleated RBC/100 WBC (Bld) [Ratio] 0 % 0-5 [facility] MCHC Auto (RBC) [Mass/Vol]Or dered By: Micha Feliciano on 03-16-2023 MCHC (RBC) [Mass/Vol] 31.5 g/dL 32-36 [facility] No Panel InformationOrdered By: Micha Feliciano on 03-16-2023 Estimated Creatinine Clearance Calc 4.25 ml/min [facility] Estimated GFR (MDRD) Amer 6 mL/min >60 [facility] Comment on above: GFR Calc Estimated GFR (MDRD) Non-Af Amer 5 mL/min >60 [facility] Comment on above: Non- GFR Calc Platelets bldOrdered By: Jono Feliciano on 03-16-2023 Platelets (Bld) [#/Vol] 140 10*3/uL 150-450 [facility] Serum or plasma calcium prosper urement (mass/volume)Ordered By: Micha Feliciano on 03-16-2023 Calcium [Mass/Vol] 8.1 mg/dL 8.5-10.1 [facility] Serum or plasma cholesterol in HDL measurement (mass/volume)Ordered By: Micha Feliciano on 03-16-2023 Cholesterol in HDL [Mass/Vol] 60 mg/dL >40 [facility] Comment on above: The drugs N-Acetylcy steine and Metamizole may falsely depress this assay. Reference Range HDL <40 mg/dL Low HDL Cholesterol HDL >or= 60 mg/dL High HDL Cholesterol Serum or plasma cholesterol in VLDL measurement (mass/volume)Ordered By: Micha Feliciano on 03-16-2023 Cholesterol in VLDL [Mass/Vol] 7 mg/dL 5-40 [facility] Serum or plasma creatinine m easurement (mass/volume)Ordered By: Micha Feliciano on 03-16-2023 Creatinine [Mass/Vol] 7.71 mg/dL 0.55-1.02 [facility] Comment on above: Critical Result(s) C alled at: 07:00:01 03/16/2023 by: Kathleen Calzada. Results read back by same.The validity of the calculated GFR & GFRAA in patients over 70 years has not been determined. Clinical correlation is essential. Serum or plasma low density lipoprotein (LDL) cholesterol measurement (mass/volume)Ordered By: Micha Feliciano on 03-16-2023 Cholesterol in LDL [Mass/Vol] 34 mg/dL 0-130 [facility] Serum or plasma urea nitroge n measurement (mass/volume)Ordered By: Micha Feliciano on 03-16-2023 Urea nitrogen [Mass/Vol] 53 mg/dL 7-18 [facility] Thin prep Papanicolaou smear with manual screeningOrdered By: Micha Feliciano on 03-16-2023 Thin prep Papanicolaou smear with manual screening 6 5-15 [facility] INR in Blood by Coagulation assayOrdered By: Jey Benitez on 03-15-2023 INR Coag (Bld) [Relative time] 1.0 {INR} [facility] - CoagulationOrde red By: Jey Benitez on 03-15-2023 aPTT Coag (Bld) [Time] 28.2 s 24.1-36.2 [facility] PT Coag (PPP) [Time] 13.2 s 11.7-14.9 [facility] No Panel InformationOrdered By: Jey Benitez on 03-15-2023 Troponin I High Sensitivity 38 pg/mL 3.0-54.0 [facility] Comment on above: Please Note: New Cathleen t Units and Gender Specific Reference Ranges. For more information see Policy Stat Procedure [place] High Sensitivity Troponin (TNIH) and attachments. Absolute lymphocyte countOrd ered By: John Lutz on 12-06-2022 Lymphocytes Auto (Unsp spec) [#/Vol] 2.17 10*3/uL 0.83-4.51 [facility] Basophil percentageOrdered B y: John Lutz on 12-06-2022 Basophil percentage 3.6 mg/dL 2.5-4.9 [facility] Basophils/100 WBC (Bld) 1.7 % 0-1 [facility] Chloride [Moles/Vol] 102 mmol/L 98-107 [facility] Cholesterol [Mass/Vol] 97 mg/dL <200 [facility] Comment on above: <200 mg/dL Desirable 200-240 mg/dL Borderline >240 mg/dL High Risk Eosinophils/100 WBC (Bld) 4.2 % 0-5 [facility] Glucose [Mass/Vol] 81 mg/dL 74-106 [facility] Neutrophils (Bld) [#/Vol] 2.3 10*3/uL 2.0-7.7 [facility] Neutrophils/100 WBC (Bld) 43.5 % 47-70 [facility] Potassium [Moles/Vol] 4.1 mmol/L 3.5-5.1 [facility] Sodium [Moles/Vol] 139 mmol/L 136-145 [facility] Triglyceride [Mass/Vol] 81 mg/dL <199 [facility] Comment on above: The drugs N-Acetylcy steine and Metamizole may falsely depress this assay.Serum Triglycerides Reference Interval Normal <150 mg/dL Borderline high 150 - 199 mg/dL High 200 - 499 mg/dL Very High > or = 500 mg/dL WBC (Bld) [#/Vol] 5.3 10*3/uL 4.4-11.0 [facility] Blood erythrocytes count (nu mber/volume)Ordered By: John Lutz on 12-06-2022 RBC (Bld) [#/Vol] 3.49 10*6/uL 4.2-5.4 [facility] Blood hemoglobin measurement (mass/volume)Ordered By: John Lutz on 12-06-2022 Hemoglobin (Bld) [Mass/Vol] 9.9 g/dL 12.0-15.0 [facility] Blood lymphocytes/100 leukoc ytesOrdered By: John Lutz on 12-06-2022 Lymphocytes/100 WBC (Bld) 41.1 % 19-41 [facility] Blood monocytes/100 leukocyt esOrdered By: John Lutz on 12-06-2022 Monocytes/100 WBC (Bld) 9.3 % 0-10 [facility] Blood platelet mean volumeOr dered By: John Lutz on 12-06-2022 Platelet mean volume (Bld) [Entitic vol] 12.1 fL 6.2-12.0 [facility] Determination of erythrocyte mean corpuscular volume (MCV)Ordered By: John Lutz on 12-06-2022 MCV (RBC) [Entitic vol] 90.8 fL 81-99 [facility] Hematocrit Auto (Bld) [Volum e fraction]Ordered By: John Lutz on 12-06-2022 Hematocrit (Bld) [Volume fraction] 31.7 % 37-47 [facility] - Chemistry and C hemistry - challengeOrdered By: John Lutz on 12-06-2022 CO2 [Moles/Vol] 30.0 mmol/L 21.0-32.0 [facility] Magnesium [Mass/Vol] 2.5 mg/dL 1.6-2.6 [facility] Urea nitrogen/Creatinine [Mass ratio] 6.5 mg/mg 10-20 [facility] - Hematology and Cell countsOrdered By: John Lutz on 12-06-2022 Erythrocyte distribution width (RBC) [Entitic vol] 53.1 fL 35.1-43.9 [facility] Erythrocyte distribution width (RBC) [Ratio] 15.9 % 11.6-14.6 [facility] Immature granulocytes/100 WBC (Bld) 0.200 % 0.0-0.9 [facility] Comment on above: IG% - Immature Granu locytes (promyelocytes, myelocytes and metamyelocytes) > 1% indicates that a LEFT SHIFT is Present. MCH (RBC) [Entitic mass] 28.4 pg 27.0-32.0 [facility] Nucleated RBC/100 [facility] (Bld) [Ratio] 0 [facility] [Mass/Vol]Or dered By: John Lutz on 12-06-2022 MCHC (RBC) [Mass/Vol] 31.2 g/dL 32-36 [facility] No Panel InformationOrdered By: John Lutz on 12-06-2022 Estimated Creatinine Clearance Calc 4.29 ml/min [facility] Estimated GFR (MDRD) Amer 6 mL/min >60 [facility] Comment on above: GFR Calc Estimated GFR (MDRD) Non-Af Amer 5 mL/min >60 [facility] Comment on above: Non- GFR Calc Platelets bldOrdered By: Daniel Lutz on 12-06-2022 Platelets (Bld) [#/Vol] 112 10*3/uL 150-450 [facility] Serum or plasma calcium prosper urement (mass/volume)Ordered By: John Lutz on 12-06-2022 Calcium [Mass/Vol] 8.6 mg/dL 8.5-10.1 [facility] Serum or plasma cholesterol in HDL measurement (mass/volume)Ordered By: John Lutz on 12-06-2022 Cholesterol in HDL [Mass/Vol] 55 mg/dL >40 [facility] Comment on above: The drugs N-Acetylcy steine and Metamizole may falsely depress this assay. Reference Range HDL <40 mg/dL Low HDL Cholesterol HDL >or= 60 mg/dL High HDL Cholesterol Serum or plasma cholesterol in VLDL measurement (mass/volume)Ordered By: John Lutz on 12-06-2022 Cholesterol in VLDL [Mass/Vol] 16 mg/dL 5-40 [facility] Serum or plasma creatinine m easurement (mass/volume)Ordered By: John Lutz on 12-06-2022 Creatinine [Mass/Vol] 8.13 mg/dL 0.55-1.02 [facility] Comment on above: Critical Result(s) C alled at: 07:49:55 12/06/2022 by: Kathleen Farooq. Results read back by same.The validity of the calculated GFR & GFRAA in patients over 70 years has not been determined. Clinical correlation is essential. Serum or plasma low density lipoprotein (LDL) cholesterol measurement (mass/volume)Ordered By: John Lutz on 12-06-2022 Cholesterol in LDL [Mass/Vol] 26 mg/dL 0-130 [facility] Serum or plasma urea nitroge n measurement (mass/volume)Ordered By: John Lutz on 12-06-2022 Urea nitrogen [Mass/Vol] 53 mg/dL 7-18 [facility] Thin prep Papanicolaou smear with manual screeningOrdered By: John Lutz on 12-06-2022 Thin prep Papanicolaou smear with manual screening 7 5-15 [facility] Absolute lymphocyte countOrd ered By: Jey Benitez on 12-05-2022 Lymphocytes Auto (Unsp spec) [#/Vol] 2.42 10*3/uL 0.83-4.51 [facility] Basophil percentageOrdered B y: Jey Bneitez on 12-05-2022 Basophils/100 WBC (Bld) 1.4 % 0-1 [facility] Chloride [Moles/Vol] 102 mmol/L 98-107 [facility] Eosinophils/100 WBC (Bld) 3.4 % 0-5 [facility] Glucose [Mass/Vol] 85 mg/dL 74-106 [facility] Neutrophils (Bld) [#/Vol] 3.1 10*3/uL 2.0-7.7 [facility] Neutrophils/100 WBC (Bld) 47.1 % 47-70 [facility] Potassium [Moles/Vol] 3.8 mmol/L 3.5-5.1 [facility] Sodium [Moles/Vol] 140 mmol/L 136-145 [facility] WBC (Bld) [#/Vol] 6.5 10*3/uL 4.4-11.0 [facility] Blood erythrocytes count (nu mber/volume)Ordered By: Jey Benitez on 12-05-2022 RBC (Bld) [#/Vol] 3.80 10*6/uL 4.2-5.4 [facility] Blood hemoglobin measurement (mass/volume)Ordered By: Jey Benitez on 12-05-2022 Hemoglobin (Bld) [Mass/Vol] 10.8 g/dL 12.0-15.0 [facility] Blood lymphocytes/100 leukoc ytesOrdered By: Jey Benitez on 12-05-2022 Lymphocytes/100 WBC (Bld) 37.2 % 19-41 [facility] Blood monocytes/100 leukocyt esOrdered By: Jey Benitez on 12-05-2022 Monocytes/100 WBC (Bld) 10.6 % 0-10 [facility] Blood platelet mean volumeOr dered By: Jey Benitez on 12-05-2022 Platelet mean volume (Bld) [Entitic vol] 12.9 fL 6.2-12.0 [facility] Determination of erythrocyte mean corpuscular volume (MCV)Ordered By: Jey Benitez on 12-05-2022 MCV (RBC) [Entitic vol] 92.4 fL 81-99 [facility] Glucose Glucometer (BldC) [M ass/Vol]Ordered By: Jey Benitez on 12-05-2022 Glucose [Mass/Vol] 85 mg/dL 74-106 [facility] Comment on above: MANAGEMENT OF PATIEN T CARE PER NURSING PROTOCOL Hematocrit Auto (Bld) [Volum e fraction]Ordered By: Jey Benitez on 12-05-2022 Hematocrit (Bld) [Volume fraction] 35.1 % 37-47 [facility] INR in Blood by Coagulation assayOrdered By: Jey Benitez on 12-05-2022 INR Coag (Bld) [Relative time] 1.0 {INR} [facility] - Chemistry and C hemistry - challengeOrdered By: Jey Benitez on 12-05-2022 CO2 [Moles/Vol] 33.0 mmol/L 21.0-32.0 [facility] Urea nitrogen/Creatinine [Mass ratio] 6.8 mg/mg 10-20 [facility] - CoagulationOrde red By: Jey Benitez on 12-05-2022 aPTT Coag (Bld) [Time] 31.5 s 24.1-36.2 [facility] PT Coag (PPP) [Time] 13.1 s 11.7-14.9 [facility] Laboratory - Hematology and Cell countsOrdered By: Jey Benitez on 12-05-2022 Erythrocyte distribution width (RBC) [Entitic vol] 54.4 fL 35.1-43.9 [facility] Erythrocyte distribution width (RBC) [Ratio] 16.0 % 11.6-14.6 [facility] Immature granulocytes/100 WBC (Bld) 0.300 % 0.0-0.9 [facility] Comment on above: IG% - Immature Granu locytes (promyelocytes, myelocytes and metamyelocytes) > 1% indicates that a LEFT SHIFT is Present. MCH (RBC) [Entitic mass] 28.4 pg 27.0-32.0 [facility] Nucleated RBC/100 WBC (Bld) [Ratio] 0 % 0-5 [facility] MCHC Auto (RBC) [Mass/Vol]Or dered By: Jey Benitez on 12-05-2022 MCHC (RBC) [Mass/Vol] 30.8 g/dL 32-36 [facility] No Panel InformationOrdered By: Jey Benitez on 12-05-2022 Estimated Creatinine Clearance Calc 5.05 ml/min [facility] Estimated GFR (MDRD) Amer 7 mL/min >60 [facility] Comment on above: GFR Calc Estimated GFR (MDRD) Non-Af Amer 6 mL/min >60 [facility] Comment on above: Non- GFR Calc Troponin I High Sensitivity 56 pg/mL 3.0-54.0 [facility] Comment on above: Please Note: New Cathleen t Units and Gender Specific Reference Ranges. For more information see Policy Stat Procedure [place] High Sensitivity Troponin (TNIH) and attachments. Platelets bldOrdered By: Silvia Benitez on 12-05-2022 Platelets (Bld) [#/Vol] 121 10*3/uL 150-450 [facility] Serum or plasma calcium prosper urement (mass/volume)Ordered By: Jey Benitez on 12-05-2022 Calcium [Mass/Vol] 8.7 mg/dL 8.5-10.1 [facility] Serum or plasma creatinine m easurement (mass/volume)Ordered By: Jey Benitez on 12-05-2022 Creatinine [Mass/Vol] 6.91 mg/dL 0.55-1.02 [facility] Comment on above: The validity of the calculated GFR & GFRAA in patients over 70 years has not been determined. Clinical correlation is essential. Serum or plasma urea nitroge n measurement (mass/volume)Ordered By: Jey Benitez on 12-05-2022 Urea nitrogen [Mass/Vol] 47 mg/dL 7-18 [facility] Thin prep Papanicolaou smear with manual screeningOrdered By: Jey Benitez on 12-05-2022 Thin prep Papanicolaou smear with manual screening 5 5-15 [facility] Absolute lymphocyte countOrd ered By: Dr. Patrick on 07-19-2022 Lymphocytes Auto (Unsp spec) [#/Vol] 2.68 10*3/uL 0.83-4.51 [facility] Basophil percentageOrdered B y: Dr. Patrick on 07-19-2022 Basophil percentage 6.7 mg/dL 2.5-4.9 [facility] Basophils/100 WBC (Bld) 1.3 % 0-1 [facility] Chloride [Moles/Vol] 96 mmol/L 98-107 [facility] Eosinophils/100 WBC (Bld) 4.3 % 0-5 [facility] Glucose [Mass/Vol] 80 mg/dL 74-106 [facility] Neutrophils (Bld) [#/Vol] 3.3 10*3/uL 2.0-7.7 [facility] Neutrophils/100 WBC (Bld) 46.5 % 47-70 [facility] Potassium [Moles/Vol] 5.0 mmol/L 3.5-5.1 [facility] Sodium [Moles/Vol] 135 mmol/L 136-145 [facility] WBC (Bld) [#/Vol] 7.2 10*3/uL 4.4-11.0 [facility] Blood erythrocytes count (nu mber/volume)Ordered By: Dr. Patrick on 07-19-2022 RBC (Bld) [#/Vol] 3.59 10*6/uL 4.2-5.4 [facility] Blood hemoglobin measurement (mass/volume)Ordered By: Dr. Patrick on 07-19-2022 Hemoglobin (Bld) [Mass/Vol] 10.3 g/dL 12.0-15.0 [facility] Blood lymphocytes/100 leukoc ytesOrdered By: Dr. Patrick on 07-19-2022 Lymphocytes/100 WBC (Bld) 37.4 % 19-41 [facility] Blood monocytes/100 leukocyt esOrdered By: Dr. Patrick on 07-19-2022 Monocytes/100 WBC (Bld) 10.2 % 0-10 [facility] Blood platelet mean volumeOr dered By: Dr. Patrick on 07-19-2022 Platelet mean volume (Bld) [Entitic vol] 10.6 fL 6.2-12.0 [facility] COVID-19 virus antigen assay Ordered By: Dr. Feliciano on 07-19-2022 SARS-CoV-2 (COVID-19) Ag IA.rapid Ql (Resp) [facility] Determination of erythrocyte mean corpuscular volume (MCV)Ordered By: Dr. Patrick on 07-19-2022 MCV (RBC) [Entitic vol] 89.7 fL 81-99 [facility] Hematocrit Auto (Bld) [Volum e fraction]Ordered By: Dr. Patrick on 07-19-2022 Hematocrit (Bld) [Volume fraction] 32.2 % 37-47 [facility] - Chemistry and C hemistry - challengeOrdered By: Dr. Patrick on 07-19-2022 CO2 [Moles/Vol] 30.0 mmol/L 21.0-32.0 [facility] Magnesium [Mass/Vol] 2.3 mg/dL 1.6-2.6 [facility] Urea nitrogen/Creatinine [Mass ratio] 5.9 mg/mg 10-20 [facility] - Hematology and Cell countsOrdered By: Dr. Patrick on 07-19-2022 Erythrocyte distribution width (RBC) [Entitic vol] 46.8 fL 35.1-43.9 [facility] Erythrocyte distribution width (RBC) [Ratio] 14.3 % 11.6-14.6 [facility] Immature granulocytes/100 WBC (Bld) 0.300 % 0.0-0.9 [facility] Comment on above: IG% - Immature Granu locytes (promyelocytes, myelocytes and metamyelocytes) > 1% indicates that a LEFT SHIFT is Present. MCH (RBC) [Entitic mass] 28.7 pg 27.0-32.0 [facility] Nucleated RBC/100 W[facility] (Bld) [[facility]] 0 % 0[facility]5 [facility] [Mass/Vol]Or dered By: Dr. Patrick on 07-19-2022 MCHC (RBC) [Mass/Vol] 32.0 g/dL 32-36 [facility] No Panel InformationOrdered By: Dr. Patrick on 07-19-2022 Estimated Creatinine Clearance Calc 4.12 ml/min [facility] Estimated GFR (MDRD) Amer 6 mL/min >60 [facility] Comment on above: GFR Calc Estimated GFR (MDRD) Non-Af Amer 5 mL/min >60 [facility] Comment on above: Non- GFR Calc Platelets bldOrdered By: Dr. Patrick on 07-19-2022 Platelets (Bld) [#/Vol] 146 10*3/uL 150-450 [facility] Serum or plasma calcium prosper urement (mass/volume)Ordered By: Dr. Patrick on 07-19-2022 Calcium [Mass/Vol] 8.4 mg/dL 8.5-10.1 [facility] Serum or plasma creatinine m easurement (mass/volume)Ordered By: Dr. Patrick on 07-19-2022 Creatinine [Mass/Vol] 8.47 mg/dL 0.55-1.02 [facility] Comment on above: Critical Result(s) C alled at: 05:29:35 07/19/2022 by: JUNIE Schreiber RN ICU. Results read back by same.The validity of the calculated GFR & GFRAA in patients over 70 years has not been determined. Clinical correlation is essential. Serum or plasma urea nitroge n measurement (mass/volume)Ordered By: Dr. Patrick on 07-19-2022 Urea nitrogen [Mass/Vol] 50 mg/dL 7-18 [facility] Thin prep Papanicolaou smear with manual screeningOrdered By: Dr. Patrick on 07-19-2022 Thin prep Papanicolaou smear with manual screening 9 5-15 [facility] Basophil percentageOrdered B y: Dr. Patrick on 07-18-2022 Bilirubin [Mass/Vol] 0.50 mg/dL 0.20-1.00 [facility] Comment on above: For patients on eltr ombopag therapy, use of Dimension [place] TBIL is not recommended. Cholesterol [Mass/Vol] 104 mg/dL <200 [facility] Comment on above: <200 mg/dL Desirable 200-240 mg/dL Borderline >240 mg/dL High Risk Protein [Mass/Vol] 6.1 g/dL 6.4-8.2 [facility] Triglyceride [Mass/Vol] 31 mg/dL <199 [facility] Comment on above: The drugs N-Acetylcy steine and Metamizole may falsely depress this assay.Serum Triglycerides Reference Interval Normal <150 mg/dL Borderline high 150 - 199 mg/dL High 200 - 499 mg/dL Very High > or = 500 mg/dL Laboratory - Chemistry and C hemistry - challengeOrdered By: Dr. Patrick on 07-18-2022 ALP [Catalytic activity/Vol] 58 U/L 45-117 [facility] ALT [Catalytic activity/Vol] 13 U/L 13-56 [facility] Globulin (S) [Mass/Vol] 3.2 g/dL 2.2-4.2 [facility] No Panel InformationOrdered By: Dr. Patrick on 07-18-2022 Thyroid Stimulating Hormone (TSH) 2.18 uIU/mL 0.358-3.74 [facility] Serum or plasma albumin prosper urement (mass/volume)Ordered By: Dr. Patrick on 07-18-2022 Albumin [Mass/Vol] 2.9 g/dL 3.2-5.0 [facility] Serum or plasma albumin/glob ulin mass ratioOrdered By: Dr. Patrick on 07-18-2022 Albumin/Globulin [Mass ratio] 0.9 {ratio} 0.9-2.4 [facility] Serum or plasma cholesterol in HDL measurement (mass/volume)Ordered By: Dr. Patrick on 07-18-2022 Cholesterol in HDL [Mass/Vol] 54 mg/dL >40 [facility] Comment on above: The drugs N-Acetylcy steine and Metamizole may falsely depress this assay. Reference Range HDL <40 mg/dL Low HDL Cholesterol HDL >or= 60 mg/dL High HDL Cholesterol Serum or plasma cholesterol in VLDL measurement (mass/volume)Ordered By: Dr. Patrick on 07-18-2022 Cholesterol in VLDL [Mass/Vol] 6 mg/dL 5-40 [facility] Serum or plasma low density lipoprotein (LDL) cholesterol measurement (mass/volume)Ordered By: Dr. Patrick on 07-18-2022 Cholesterol in LDL [Mass/Vol] 44 mg/dL 0-130 [facility] Thin prep Papanicolaou smear with manual screeningOrdered By: Dr. Patrick on 07-18-2022 Thin prep Papanicolaou smear with manual screening 16 U/L 15-37 [facility] INR in Blood by Coagulation assayOrdered By: Dr. Benitez on 07-17-2022 INR Coag (Bld) [Relative time] 1.0 {INR} [facility] Laboratory - CoagulationOrde red By: Dr. Benitez on 07-17-2022 aPTT Coag (Bld) [Time] 29.2 s 24.1-36.2 [facility] PT Coag (PPP) [Time] 12.9 s 11.7-14.9 [facility] No Panel InformationOrdered By: Dr. Benitez on 07-17-2022 Troponin I High Sensitivity 37 pg/mL 3.0-54.0 [facility] Comment on above: Please Note: New Cathleen t Units and Gender Specific Reference Ranges. For more information see Policy Stat Procedure [place] High Sensitivity Troponin (TNIH) and attachments. Whole blood hemoglobin A1c/t otal hemoglobin ratio (mass fraction)Ordered By: Dr. Patrick on 07-17-2022 HbA1c (Bld) [Mass fraction] 5.2 % 3.8-5.6 [facility] Comment on above: Normal < 5.7 % Predi abetic 5.7 - 6.4 % Diabetic >or= 6.5 % Please note range changes. Vital Signs Date Time Vital Sign Value Performing Clinician Faci lity 08-03-2023 15:54-0400 Body temperature 97.6 [degF] Dr. Wayne Leahy Work Phone: [facility] 08-03-2023 15:54-0400 Diastolic blood pressure 82 mm[Hg] Dr. Wayne Leahy Work Phone: [facility] 08-03-2023 15:54-0400 Heart rate 80 /min Dr. Wayne Leahy Work Phone: [facility] 08-03-2023 15:54-0400 Respiratory rate 18 /min Dr. Wayne Leahy Work Phone: 7(879)099-780740 [address] 08-03-2023 15:54-0400 SaO2% (BldA) [Mass fraction] 98 % Dr. Wayne Leahy Work Phone: 3(857)517-313173 [place] [address] 08-03-2023 15:54-0400 Systolic blood pressure 166 mm[Hg] Dr. Wayne Leahy Work Phone: 6(120)382-900173 [place] [address] 08-03-2023 14:18-0400 Body height 160.[address] Wayne Leahy Work Phone: 7(096)645-778173 [place] [address] 08-03-2023 14:18-0400 Body mass index (BMI) [Ratio] 25.5 kg/m2 Dr. Wayne Leahy Work Phone: 8(376)628-767773 [place] [address] 08-03-2023 14:18-0400 Body weight 65.[address] Wayne Leahy Work Phone: 6(302)724-005773 [place] [address] 06-29-2023 13:20-0500 Body mass index (BMI) [Ratio] 25.8 kg/m2 Dr. Wayne Leahy Work Phone: 5(579)835-196673 [place] [address] 06-29-2023 13:20-0500 Body temperature 97.4 [degF] Dr. Wayne Leahy Work Phone: 9(410)907-038440 [address] 06-29-2023 13:20-0500 Body weight 66.[address] Wayne Leahy Work Phone: 4(268)351-122779 [place] [address] 06-29-2023 13:20-0500 Diastolic blood pressure 73 mm[Hg] Dr. Wayne Leahy Work Phone: 2(041)039-707379 [place] [address] 06-29-2023 13:20-0500 Heart rate 71 /min Dr. Wayne Leahy Work Phone: 5(123)452-538279 [place] [address] 06-29-2023 13:20-0500 Respiratory rate 17 /min Dr. Wayne Leahy Work Phone: 5(323)026-897879 [place] [address] 06-29-2023 13:20-0500 SaO2% (BldA) [Mass fraction] 96 % Dr. Wayne Leahy Work Phone: 6(410)060-364979 [place] [address] 06-29-2023 13:20-0500 Systolic blood pressure 166 mm[Hg] Dr. Wayne Leahy Work Phone: 1(023)890-241479 [place] [address] 06-13-2023 16:40-0500 Diastolic blood pressure 74 mm[Hg] Dr. Wayne Leahy Work Phone: 7(846)188-350173 [place] [address] 06-13-2023 16:40-0500 Heart rate 71 /min Dr. Wayne Leahy Work Phone: 2(529)503-911573 [place] [address] 06-13-2023 16:40-0500 Respiratory rate 14 /min Dr. Wayne Leahy Work Phone: 4(985)148-409173 [place] [address] 06-13-2023 16:40-0500 SaO2% (BldA) [Mass fraction] 97 % Dr. Wayne Leahy Work Phone: 4(252)265-063879 [place] [address] 06-13-2023 16:40-0500 Systolic blood pressure 128 mm[Hg] Dr. Wayne Leahy Work Phone: 5(082)986-466473 [place] [address] 06-13-2023 14:57-0500 Body height 160.[address] Wayne Leahy Work Phone: 0(930)544-467673 [place] [address] 06-13-2023 14:57-0500 Body mass index (BMI) [Ratio] 26.2 kg/m2 Dr. Wayne Leahy Work Phone: 7(855)777-027079 [place] [address] 06-13-2023 14:57-0500 Body temperature 98.4 [degF] Dr. Wayne Leahy Work Phone: 4(169)873-169473 [place] [address] 06-13-2023 14:57-0500 Body weight 67.[address] Wayne Leahy Work Phone: 3(546)657-591579 [place] [address] 05-02-2023 09:05-0500 Body height 160.[address] Wayne Leahy Work Phone: 3(534)269-657779 [place] [address] 05-02-2023 09:05-0500 Body mass index (BMI) [Ratio] 25.4 kg/m2 Dr. Wayne Leahy Work Phone: [facility] 05-02-2023 09:05-0500 Body temperature 98 [degF] Dr. Wayne Leahy Work Phone: [facility] 05-02-2023 09:05-0500 Body weight 65.[address] Wayne Leahy Work Phone: [facility] 05-02-2023 09:05-0500 Diastolic blood pressure 70 mm[Hg] Dr. Wayne Leahy Work Phone: [facility] 05-02-2023 09:05-0500 Heart rate 83 /min Dr. Wayne Leahy Work Phone: [facility] 05-02-2023 09:05-0500 Respiratory rate 17 /min Dr. Wayne Leahy Work Phone: [facility] 05-02-2023 09:05-0500 SaO2% (BldA) [Mass fraction] 96 % Dr. Wayne Leahy Work Phone: [facility] 05-02-2023 09:05-0500 Systolic blood pressure 148 mm[Hg] Dr. Wayne Leahy Work Phone: [facility] 03-16-2023 14:45-0400 Body temperature 97.9 [degF] Dr. Wayne Leahy Work Phone: [facility] 03-16-2023 14:45-0400 Diastolic blood pressure 54 mm[Hg] Dr. Wayne Leahy Work Phone: [facility] 03-16-2023 14:45-0400 Heart rate 82 /min Dr. Wayne Leahy Work Phone: [facility] 03-16-2023 14:45-0400 Respiratory rate 16 /min Dr. Wayne Leahy Work Phone: [facility] 03-16-2023 14:45-0400 SaO2% (BldA) [Mass fraction] 98 % Dr. Wayne Leahy Work Phone: 6(090)215-183570 [place] [address] 03-16-2023 14:45-0400 Systolic blood pressure 143 mm[Hg] Dr. Wayne Leahy Work Phone: 7(591)705-056773 [place] [address] 03-16-2023 10:00-0400 Body temperature 98.5 [degF] Dr. Wayne Leahy Work Phone: 7(835)273-888273 [place] [address] 03-16-2023 10:00-0400 Diastolic blood pressure 60 mm[Hg] Dr. Wayne Leahy Work Phone: 5(390)487-496473 [place] [address] 03-16-2023 10:00-0400 Heart rate 89 /min Dr. Wayne Leahy Work Phone: 6(984)503-225473 [place] [address] 03-16-2023 10:00-0400 Systolic blood pressure 160 mm[Hg] Dr. Wayne Leahy Work Phone: 8(368)721-957973 [place] [address] 03-16-2023 09:52-0400 Body mass index (BMI) [Ratio] 27.6 kg/m2 Dr. Wayne Leahy Work Phone: 9(711)553-253873 [place] [address] 03-15-2023 16:45-0400 Body height 160.[address] Wayne Leahy Work Phone: 7(958)958-706273 [place] [address] 03-15-2023 16:45-0400 Body weight 70.[address] Wayne Leahy Work Phone: 5(294)196-004673 [place] [address] 12-06-2022 17:00-0400 Body mass index (BMI) [Ratio] 25.3 kg/m2 Dr. Wayne Leahy Work Phone: 9(094)134-371673 [place] [address] 12-06-2022 16:28-0400 Body height 162.[address] Wayne Leahy Work Phone: 3(869)082-940873 [place] [address] 12-06-2022 16:28-0400 Body weight [address] Wayne Leahy Work Phone: 0(587)412-775073 [place] [address] 12-06-2022 16:15-0400 Body temperature 98.3 [degF] Dr. Wayne Leahy Work Phone: 5(911)592-210973 [place] [address] 12-06-2022 16:15-0400 Diastolic blood pressure 65 mm[Hg] Dr. Wayne Leahy Work Phone: [facility] 12-06-2022 16:15-0400 Heart rate 79 /min Dr. Wayne Leahy Work Phone: [facility] 12-06-2022 16:15-0400 Respiratory rate 16 /min Dr. Wayne Leahy Work Phone: [facility] 12-06-2022 16:15-0400 SaO2% (BldA) [Mass fraction] 95 % Dr. Wayne Leahy Work Phone: [facility] 12-06-2022 16:15-0400 Systolic blood pressure 141 mm[Hg] Dr. Wayne Leahy Work Phone: 0(768)558-258079 [place] [address] 12-05-2022 13:58-0400 Body temperature 98.6 [degF] Dr. Wayne Leahy Work Phone: 6(907)146-358479 [place] [address] 12-05-2022 13:58-0400 Diastolic blood pressure 60 mm[Hg] Dr. Wayne Leahy Work Phone: 6(444)126-340979 [place] [address] 12-05-2022 13:58-0400 Heart rate 80 /min Dr. Wayne Leahy Work Phone: [facility] 12-05-2022 13:58-0400 Respiratory rate 14 /min Dr. Wayne Leahy Work Phone: [facility] 12-05-2022 13:58-0400 SaO2% (BldA) [Mass fraction] 96 % Dr. Wayne Leahy Work Phone: [facility] 12-05-2022 13:58-0400 Systolic blood pressure 140 mm[Hg] Dr. Wayne Leahy Work Phone: [facility] 12-05-2022 12:37-0400 Body mass index (BMI) [Ratio] 25.9 kg/m2 Dr. Wayne Leahy Work Phone: [facility] 12-05-2022 12:37-0400 Body weight 68.[address] Wayne Leahy Work Phone: [facility] 12-05-2022 12:36-0400 Body height 162.[address] Wayne Leahy Work Phone: 7(998)724-908979 [place] [address] 08-16-2022 13:13-0400 Body mass index (BMI) [Ratio] 26.4 kg/m2 Dr. Wayne Leahy Work Phone: 0(766)068-030379 [place] [address] 08-16-2022 13:13-0400 Body weight 69.[address] Wayne Leahy Work Phone: 7(452)354-340879 [place] [address] 08-16-2022 13:13-0400 Diastolic blood pressure 66 mm[Hg] Dr. Wayne Leahy Work Phone: 3(147)143-843373 [place] [address] 08-16-2022 13:13-0400 Respiratory rate 18 /min Dr. Wayne Leahy Work Phone: 6(418)426-623773 [place] [address] 08-16-2022 13:13-0400 SaO2% (BldA) [Mass fraction] 94 % Dr. Wayne Leahy Work Phone: 0(219)254-477179 [place] [address] 08-16-2022 13:13-0400 Systolic blood pressure 131 mm[Hg] Dr. Wayne Leahy Work Phone: 3(948)666-176879 [place] [address] 07-19-2022 14:00-0500 Body temperature 98.1 [degF] Dr. Wayne Leahy Work Phone: 0(703)150-435279 [place] [address] 07-19-2022 14:00-0500 Diastolic blood pressure 57 mm[Hg] Dr. Wayne Leahy Work Phone: 7(295)145-871779 [place] [address] 07-19-2022 14:00-0500 Heart rate 82 /min Dr. Wayne Leahy Work Phone: 4(234)299-621379 [place] [address] 07-19-2022 14:00-0500 Respiratory rate 15 /min Dr. Wayne Leahy Work Phone: [facility] 07-19-2022 14:00-0500 SaO2% (BldA) [Mass fraction] 97 % Dr. Wayne Leahy Work Phone: 0(603)045-755879 [place] [address] 07-19-2022 14:00-0500 Systolic blood pressure 120 mm[Hg] Dr. Wayne Leahy Work Phone: [facility] 07-19-2022 06:00-0500 Body mass index (BMI) [Ratio] 26.1 kg/m2 Dr. Wayne Leahy Work Phone: [facility] 07-19-2022 06:00-0500 Body weight 69.[address] Wayne Leahy Work Phone: [facility] 07-18-2022 08:05-0500 Body height 162.[address] Wayne Leahy Work Phone: [facility] Encounters Encounter Date Encounter Type Care Provider Facility Start: 08-01-2024 End: 08-01-2024 ambulatory Kishan Camejo Facility:[facility] Start: 07-17-2024 ambulatory Kishan Camejo Facility:[facility] Start: 07-04-2024 ambulatory Kishan Camejo Facility:[facility] Start: 07-03-2024 ambulatory Jim Shepherd Facility:[facility] Start: 07-03-2024 End: 07-05-2024 Evaluation and management of inpatient Jim Joao Facility:[facility] Start: 06-27-2024 ambulatory Jim Shepherd Facility:[facility] Start: 06-27-2024 End: 06-27-2024 ambulatory Jimfrank Shepherd Facility:[facility] Start: 06-08-2024 ambulatory Jim Shepherd Facility:[facility] Start: 06-08-2024 End: 06-08-2024 ambulatory Kishan Camejo Facility:[facility] Start: 06-06-2024 ambulatory Jimfrank Shepherd Facility:[facility] Start: 05-30-2024 End: 05-30-2024 ambulatory Kishan Camejo Facility:[facility] Start: 04-24-2024 End: 04-24-2024 Emergency department patient visit Jolie Mosqueda Facility:[facility] Start: 03-12-2024 End: 03-12-2024 ambulatory Kishan Camejo Facility:[facility] Start: 03-12-2024 End: 03-12-2024 ambulatory Kishan Camejo Facility:[facility] Start: 10-13-2023 ambulatory Wayne Leahy Facility:[facility] Start: 08-03-2023 End: 08-03-2023 Emergency department patient visit Dr. Wayne Leahy Work Phone: [facility] Work Phone: Start: 06-29-2023 End: 06-29-[address] Wayne Leahy Work Phone: [facility] Work Phone: Start: 06-13-2023 End: 06-13-2023 Emergency department patient visit Dr. Wayne Leahy Work Phone: [facility] Work Phone: Start: 05-02-2023 End: 05-02-[address] Wayne Leahy Work Phone: [facility] Work Phone: Start: 05-02-2023 End: 05-02-[address] Wayne Leahy Work Phone: [facility] Work Phone: Start: 05-02-2023 End: 05-02-[address] Wayne Leahy Work Phone: [facility] Work Phone: Start: 03-29-2023 End: 03-29-[address] Wayne Leahy Work Phone: [facility] Work Phone: Start: 03-16-2023 Non-patient / Non-visit Dr. Mario Leahy Work Phone: [facility] Work Phone: Start: 03-15-2023 Non-patient / Non-visit Dr. Mario Leahy Work Phone: [facility] Work Phone: Start: 03-15-2023 End: 03-16-2023 Evaluation and management of inpatient [facility] Start: 03-15-2023 End: 03-16-[address] Wayne Leahy Work Phone: [facility] Work Phone: Start: 12-06-2022 Non-patient / Non-visit Dr. Mario Leahy Work Phone: [facility] Work Phone: Start: 12-06-2022 Non-patient / Non-visit Dr. Mario Leahy Work Phone: [facility] Start: 12-05-2022 Non-patient / Non-visit Dr. Mario Leahy Work Phone: [facility] Work Phone: Start: 12-05-2022 End: 12-06-2022 Evaluation and management of inpatient [facility] Wayne [facility] Start: 12-05-2022 End: 12-06-[address] Wayne Leahy Work Phone: [facility] Work Phone: Start: 08-16-2022 End: 08-16-[address] Wayne Leahy Work Phone: [facility] Work Phone: Start: 07-19-2022 Non-patient / Non-visit Dr. Mario Leahy Work Phone: [facility] Start: 07-19-2022 Non-patient / Non-visit Dr. Mario Leahy Work Phone: [facility] Start: 07-18-2022 Non-patient / Non-visit Dr. Mario Leahy Work Phone: [facility] Start: 07-18-2022 Non-patient / Non-visit Dr. Mario Leahy Work Phone: [facility] Start: 07-17-2022 Non-patient / Non-visit Dr. Mario Leahy Work Phone: [facility] Start: 07-17-2022 End: 07-19-2022 Evaluation and management of inpatient Dr. Wayne Leahy Work Phone: [facility] Start: 06-01-2022 End: 06-01-[address] Wayne Leahy Work Phone: [facility] Start: 04-23-2022 End: 04-23-[address] Wayne Leahy Work Phone: [facility] Start: 12-15-2019 End: 12-15-2019 Patient encounter procedure UNKNOWN PROVIDER Facility:[facility] Procedures Date Procedure Procedure Detail Performing Clinician Start: 08-03-2023 Plain x-ray of pelvi s and lower extremity Dr. Wayne Leahy Work Phone: Start: 08-03-2023 CT of head without contrast Dr. Wayne Leahy Work Phone: Start: 06-13-2023 Plain x-ray of humerus Dr. Wayne Leahy Work Phone: Start: 06-13-2023 X-ray of both feet Dr. Wayne Leahy Work Phone: Start: 03-15-2023 MRI of brain without contrast Dr. Wayne Leahy Work Phone: Start: 03-15-2023 Plain chest X-ray Dr. Faisal Leahy Work Phone: Start: 03-15-2023 CT angiography of he ad and neck Dr. Wayne Leahy Work Phone: Start: 03-15-2023 CT of head without contrast Dr. Wayne Leahy Work Phone: Start: 12-06-2022 MRI of brain without contrast Dr. Wayne Leahy Work Phone: Start: 12-05-2022 Plain chest X-ray Dr. Faisal Leahy Work Phone: Start: 12-05-2022 CT angiography of he ad and neck Dr. Wayne Leahy Work Phone: Start: 12-05-2022 CT of head without contrast Dr. Wayne Leahy Work Phone: Start: 07-18-2022 MRI of brain without contrast Dr. Wayne Leahy Work Phone: Start: 07-17-2022 Plain chest X-ray Dr. Faisal Leahy Work Phone: Start: 07-17-2022 CT angiography of he ad and neck Dr. Wayne Leahy Work Phone: Start: 07-17-2022 CT of head without contrast Dr. Wayne Leahy Work Phone: Start: 07-20-2019 H/O: surgery History of loo p recorder Dr. Wayne Leahy Work Phone: Viral antigen assay Dr. Wayne Leahy Work Phone: Plan of Treatment Date Care Activity Detail Author Start: 08-03-2023 [facility] Start: 06-13-2023 [facility] Start: 05-02-2023 [place] and lambda lig ht chains [facility] Start: 05-02-2023 Thiamine measurement [facility] Start: 03-16-2023 Patient discharge [facility] Start: 03-15-2023 Following clinical p athway protocol [facility] Start: 03-15-2023 Ambulation without limitation [facility] Start: 03-15-2023 Assessment of risk o f venous thromboembolism [facility] Start: 03-15-2023 Cardiac monitoring [facility] Start: 03-15-2023 Catheterization of vein [facility] Start: 03-15-2023 Elevation of head of bed [facility] Start: 03-15-[address] [facility] Start: 03-15-[address] anned interventions [facility] Start: 03-15-2023 Insertion of cathete r into peripheral vein [facility] Start: 03-15-2023 Measuring intake and output [facility] Start: 03-15-2023 Notification of physician [facility] Start: 03-15-2023 Oxygen therapy [facility] Start: 03-15-2023 Patient referral to dietitian [facility] Start: 03-15-2023 Providing care accor ding to standard [facility] Start: 03-15-2023 Referral to business development analyst [facility] Start: 03-15-2023 Referral to occupati onal therapist [facility] Start: 03-15-2023 Referral to service [facility] Start: 03-15-2023 Speech therapy assessment [facility] Start: 03-15-2023 Tobacco use cessatio n education [facility] Start: 03-15-2023 [facility] Start: 03-15-2023 Vital signs measurements [facility] Start: 03-15-2023 Verification routine [facility] Start: 03-15-2023 Admission procedure [facility] Start: 03-15-2023 Inhalation therapy procedure [facility] Start: 03-15-2023 Patient referral to [facility] Start: 12-06-2022 Patient discharge [facility] Start: 12-05-2022 Following clinical p athway protocol [facility] Start: 12-05-2022 Ambulation without limitation [facility] Start: 12-05-2022 Assessment of risk o f venous thromboembolism [facility] Start: 12-05-2022 Cardiac monitoring [facility] Start: 12-05-2022 Catheterization of vein [facility] Start: 12-05-2022 Continuous pulse oximetry [facility] Start: 12-05-2022 Elevation of head of bed [facility] Start: 12-05-[address] [facility] Start: 12-05-[address] anned interventions [facility] Start: 12-05-2022 Inhalation therapy procedure [facility] Start: 12-05-2022 Insertion of cathete r into peripheral vein [facility] Start: 12-05-2022 Measuring intake and output [facility] Start: 12-05-2022 Notification of physician [facility] Start: 12-05-2022 Oxygen therapy [facility] Start: 12-05-2022 Patient referral to dietitian [facility] Start: 12-05-2022 Providing care accor ding to standard [facility] Start: 12-05-2022 Provision of activit y privileges [facility] Start: 12-05-2022 Referral to business development analyst [facility] Start: 12-05-2022 Referral to occupati onal therapist [facility] Start: 12-05-2022 Referral to service [facility] Start: 12-05-2022 Speech therapy assessment [facility] Start: 12-05-2022 Tobacco use cessatio n education [facility] Start: 12-05-2022 [facility] Start: 12-05-2022 MRI of brain without contrast Brain without Contrast [facility] Start: 12-05-2022 Verification routine [facility] Start: 12-05-2022 Admission procedure [facility] Start: 12-05-2022 Oxygen therapy [facility] Start: 12-05-2022 [facility] Start: 07-19-2022 Patient discharge [facility] Start: 07-18-2022 Bleeding precautions [facility] Start: 07-17-2022 Following clinical p athway protocol [facility] Start: 07-17-2022 [facility] Start: 07-17-2022 Assessment of risk o f venous thromboembolism [facility] Start: 07-17-[address] [facility] Start: 07-17-2022 Cardiac monitoring [facility] Start: 07-17-2022 Catheterization of vein [facility] Start: 07-17-2022 Continuous pulse oximetry [facility] Start: 07-17-2022 Elevation of head of bed [facility] Start: 07-17-[address] [facility] Start: 07-17-[address] anned interventions [facility] Start: 07-17-2022 Incentive spirometry [facility] Start: 07-17-2022 Insertion of cathete r into peripheral vein [facility] Start: 07-17-2022 Measuring intake and output [facility] Start: 07-17-2022 Notification of physician [facility] Start: 07-17-2022 Oxygen therapy [facility] Start: 07-17-2022 Patient referral to dietitian [facility] Start: 07-17-2022 Providing care accor ding to standard [facility] Start: 07-17-2022 Referral to business development analyst [facility] Start: 07-17-2022 Referral to occupati onal therapist [facility] Start: 07-17-2022 Referral to service [facility] Start: 07-17-2022 Speech therapy assessment [facility] Start: 07-17-2022 Tobacco use cessatio n education [facility] Start: 07-17-2022 Vital signs measurements [facility] Start: 07-17-2022 [facility] Start: 07-17-2022 Admission procedure [facility] Start: 07-17-2022 Bleeding precautions [facility] Start: 07-17-[address] [facility] Start: 07-17-2022 Inhalation therapy procedure [facility] Start: 07-17-2022 Patient referral to dietitian [facility] [place]/lambda light c hugh ratio [facility] Lambda light chains. free [Mass/volume] in Serum or Plasma [facility] Patient Education [facility] Work Phone: Patient referral [facility] Work Phone: Urine kappa light ch ain measurement [facility] Immunizations Immunization Date Immunization Notes Care Provider Fa cilikenji 01-05-[address] Wayne Leahy Work Phone: [facility] 02-16-2016 influenza, injectabl e, quadrivalent, preservative free Dr. Wayne Leahy Work Phone: [facility] 02-16-2016 influenza, seasonal, injectable Dr. Wayne Leahy Work Phone: [facility] 07-24-2015 pneumococcal vaccine , unspecified formulation Dr. Wayne Leahy Work Phone: [facility] 03-24-[address] Wayne Leahy Work Phone: [facility] Payers Date Payer Category Payer Unknown [id number] 2022 Medicaid [id number] 2022 Self-pay [id number] 2019 Unknown [id number] 2015 Medicare [employer] MEDICARE O [id number] 1935 Unknown [id number] 2.16. [id number] Unknown [id number] 2.16.8 [id number] Unknown [id number] 2.16.8 40.1.280769.3.579.2.462 Unknown [id number] 2.16.8 40.1.246250.3.579.2.462 Unknown [id number] 2.16.8 40.1.445593.3.579.2.462 Unknown [id number] 2.16.8 40.1.888242.3.579.2.462 Unknown [id number] 2.16.8 40.1.522865.3.579.2.462 Unknown [id number] 2.16.8 40.1.328861.3.579.2.462 Unknown [id number] 2.16.8 40.1.088341.3.579.2.462 Unknown [id number] 2.16.8 40.1.630600.3.579.2.462 Unknown [id number] 2.16.8 40.1.731856.3.579.2.462 Unknown [id number] 2.16.8 40.1.546175.3.579.2.462 Unknown [id number] 2.16.8 40.1.636863.3.579.2.462 Unknown [id number] 2.16.8 40.1.363235.3.579.2.462 Unknown [id number] 2.16.8 40.1.543563.3.579.2.462 Unknown [id number] 2.16.8 40.1.536803.3.579.2.462 Unknown [id number] 2.16.8 40.1.506261.3.579.2.462 Unknown [id number] 2.16.8 40.1.085180.3.579.2.462 Unknown [id number] 2.16.8 [id number] Social History Date Type Detail Facility Start: 07-19-2022 End: 05-02-2023 Tobacco smoking status [facility] Unknown if ever smoked [facility] Start: 10-26-[address] [facility] Start: 10-26-[address] [facility] Start: 07-19-2022 Non-smoker [facility] Start: 1935 Sex Assigned At Female W [facility] Medical Equipment Procedure Code Equipment Code Equipment Origin al Text Equipment Identifier Dates Insertion, catheter, hemodialysis CATHETER, CVD PLNDRME 19CM FDA Start: 01-15-2019 Insertion, catheter, hemodialysis CATHETER, CVD PLNDRME 19CM FDA Start: 01-15-2019 Insertion, catheter, hemodialysis CATHETER, CVD PLNDRME 19CM FDA Start: 01-15-2019 Insertion, catheter, hemodialysis CATHETER, CVD PLNDRME 19CM FDA Start: 01-15-2019 Insertion, catheter, hemodialysis CATHETER, CVD PLNDRME 19CM FDA Start: 01-15-2019 Insertion, catheter, hemodialysis CATHETER, CVD PLNDRME 19CM FDA Start: 01-15-2019 Insertion, catheter, hemodialysis CATHETER, CVD PLNDRME 19CM FDA Start: 01-15-2019 SURGICEL, POWDER 3GR FDA Start: 04-03-2019 SUTURE,LIGA CLIP SM LT-100 FDA Start: 04-03-2019 SUTURE,LIGA CLIP SM LT-100 FDA Start: 04-03-2019 SUTURE,LIGA CLIP MED LT200 FDA Start: 04-03-2019 SUTURE,LIGA CLIP MED LT200 FDA Start: 04-03-2019 SUTURE,LIGA CLIP MED LT200 FDA Start: 04-03-2019 SUTURE,LIGA CLIP MED LT200 FDA Start: 04-03-2019 SUTURE,LIGA CLIP SM LT-100 FDA Start: 04-03-2019 SUTURE,LIGA CLIP SM LT-100 FDA Start: 04-03-2019 SUTURE,LIGA CLIP SM LT-100 FDA Start: 04-03-2019 SUTURE,LIGA CLIP SM LT-100 FDA Start: 04-03-2019 Reveal LINQ Loop Recorder FDA Start: 07-17-2019 SURGICEL, POWDER 3GR FDA Start: 04-03-2019 SUTURE,LIGA CLIP SM LT-100 FDA Start: 04-03-2019 SUTURE,LIGA CLIP SM LT-100 FDA Start: 04-03-2019 SUTURE,LIGA CLIP MED LT200 FDA Start: 04-03-2019 SUTURE,LIGA CLIP MED LT200 FDA Start: 04-03-2019 SUTURE,LIGA CLIP MED LT200 FDA Start: 04-03-2019 SUTURE,LIGA CLIP MED LT200 FDA Start: 04-03-2019 SUTURE,LIGA CLIP SM LT-100 FDA Start: 04-03-2019 SUTURE,LIGA CLIP SM LT-100 FDA Start: 04-03-2019 SUTURE,LIGA CLIP SM LT-100 FDA Start: 04-03-2019 SUTURE,LIGA CLIP SM LT-100 FDA Start: 04-03-2019 Reveal LINQ Loop Recorder FDA Start: 07-17-2019 SURGICEL, POWDER 3GR FDA Start: 04-03-2019 SUTURE,LIGA CLIP SM LT-100 FDA Start: 04-03-2019 SUTURE,LIGA CLIP SM LT-100 FDA Start: 04-03-2019 SUTURE,LIGA CLIP MED LT200 FDA Start: 04-03-2019 SUTURE,LIGA CLIP MED LT200 FDA Start: 04-03-2019 SUTURE,LIGA CLIP MED LT200 FDA Start: 04-03-2019 SUTURE,LIGA CLIP MED LT200 FDA Start: 04-03-2019 SUTURE,LIGA CLIP SM LT-100 FDA Start: 04-03-2019 SUTURE,LIGA CLIP SM LT-100 FDA Start: 04-03-2019 SUTURE,LIGA CLIP SM LT-100 FDA Start: 04-03-2019 SUTURE,LIGA CLIP SM LT-100 FDA Start: 04-03-2019 Reveal LINQ Loop Recorder FDA Start: 07-17-2019 SURGICEL, POWDER 3GR FDA Start: 04-03-2019 SUTURE,LIGA CLIP SM LT-100 FDA Start: 04-03-2019 SUTURE,LIGA CLIP SM LT-100 FDA Start: 04-03-2019 SUTURE,LIGA CLIP MED LT200 FDA Start: 04-03-2019 SUTURE,LIGA CLIP MED LT200 FDA Start: 04-03-2019 SUTURE,LIGA CLIP MED LT200 FDA Start: 04-03-2019 SUTURE,LIGA CLIP MED LT200 FDA Start: 04-03-2019 SUTURE,LIGA CLIP SM LT-100 FDA Start: 04-03-2019 SUTURE,LIGA CLIP SM LT-100 FDA Start: 04-03-2019 SUTURE,LIGA CLIP SM LT-100 FDA Start: 04-03-2019 SUTURE,LIGA CLIP SM LT-100 FDA Start: 04-03-2019 Reveal LINQ Loop Recorder FDA Start: 07-17-2019 SURGICEL, POWDER 3GR FDA Start: 04-03-2019 SUTURE,LIGA CLIP SM LT-100 FDA Start: 04-03-2019 SUTURE,LIGA CLIP SM LT-100 FDA Start: 04-03-2019 SUTURE,LIGA CLIP MED LT200 FDA Start: 04-03-2019 SUTURE,LIGA CLIP MED LT200 FDA Start: 04-03-2019 SUTURE,LIGA CLIP MED LT200 FDA Start: 04-03-2019 SUTURE,LIGA CLIP MED LT200 FDA Start: 04-03-2019 SUTURE,LIGA CLIP SM LT-100 FDA Start: 04-03-2019 SUTURE,LIGA CLIP SM LT-100 FDA Start: 04-03-2019 SUTURE,LIGA CLIP SM LT-100 FDA Start: 04-03-2019 SUTURE,LIGA CLIP SM LT-100 FDA Start: 04-03-2019 Reveal LINQ Loop Recorder FDA Start: 07-17-2019 SURGICEL, POWDER 3GR FDA Start: 04-03-2019 SUTURE,LIGA CLIP SM LT-100 FDA Start: 04-03-2019 SUTURE,LIGA CLIP SM LT-100 FDA Start: 04-03-2019 SUTURE,LIGA CLIP MED LT200 FDA Start: 04-03-2019 SUTURE,LIGA CLIP MED LT200 FDA Start: 04-03-2019 SUTURE,LIGA CLIP MED LT200 FDA Start: 04-03-2019 SUTURE,LIGA CLIP MED LT200 FDA Start: 04-03-2019 SUTURE,LIGA CLIP SM LT-100 FDA Start: 04-03-2019 SUTURE,LIGA CLIP SM LT-100 FDA Start: 04-03-2019 SUTURE,LIGA CLIP SM LT-100 FDA Start: 04-03-2019 SUTURE,LIGA CLIP SM LT-100 FDA Start: 04-03-2019 Reveal LINQ Loop Recorder FDA Start: 07-17-2019 SURGICEL, POWDER 3GR FDA Start: 04-03-2019 SUTURE,LIGA CLIP SM LT-100 FDA Start: 04-03-2019 SUTURE,LIGA CLIP SM LT-100 FDA Start: 04-03-2019 SUTURE,LIGA CLIP MED LT200 FDA Start: 04-03-2019 SUTURE,LIGA CLIP MED LT200 FDA Start: 04-03-2019 SUTURE,LIGA CLIP MED LT200 FDA Start: 04-03-2019 SUTURE,LIGA CLIP MED LT200 FDA Start: 04-03-2019 SUTURE,LIGA CLIP SM LT-100 FDA Start: 04-03-2019 SUTURE,LIGA CLIP SM LT-100 FDA Start: 04-03-2019 SUTURE,LIGA CLIP SM LT-100 FDA Start: 04-03-2019 SUTURE,LIGA CLIP SM LT-100 FDA Start: 04-03-2019 Reveal LINQ Loop Recorder FDA Start: 07-17-2019 Goals Date Patient Goal Desired Activity /State Functional Status Date Assessment Result Facility 03-16-2023 Functional status Ambulates;Rich r;Bathroom Privilege;Active [employer] [facility] Work Phone: 12-06-[address] [facility] Work Phone: 07-19-[address] [facility] Work Phone: Mental Status Date Assessment Result Facility 03-16-2023 Cognitive function Voice/Name [facility] Work Phone: 12-06-2022 Cognitive function Voice/Name [facility] Work Phone: 12-05-2022 Cognitive function Voice/Name [facility] Work Phone: 07-19-2022 Cognitive function Appropriate;Linus boogie [facility] Work Phone: Clinical Notes 07-20-2019 to 07-05-2024 Note Date & Type Note Facility 07-05-2024 Note [facility] Medical Records Department [address] [place] [address] Discharge Summary 07/05/24 1322 MR#: [id number] Acct: [id number] Name: NICOLE SALVADOR Rep #: [id number] : 1935 89 From: Jim Jerez DO PCP: Dr. Kishan Camejo MD Status:ADM IN Location: [place] [id number] Providers Date of Admission: 07/03/24 Primary Care Physician: Dr. Kishan Camejo MD Consultations 07/03/24 21:08 Consult: Nephrology Routine Consulting Provider: Kianna Patrick Reason for Consult: ESRD EMERGENT Consult: No Notified: Yes Date Notified: 07/04/24 Time Notified: 06:34 Method of Notification: Text Consult: Vascular Surgery Routine Consulting Provider: Jim Shepherd Reason for Consult: Left upper extremity fistula malfunction EMERGENT Consult: No Notified: Yes Date Notified: 07/03/24 Time Notified: 20:02 Method of Notification: ED Physician Initiated Reason For Visit: SYNCOPE/FISTULA MALFUNCTION Diagnosis Discharge Diagnosis (1) Complication, dialysis catheter clot or failure: Status: Acute (2) Acute hypotension: Status: Acute Code(s): I95.9 - Hypotension, unspecified (3) Syncope and collapse: Status: Acute Code(s): R55 - Syncope and collapse Plan Syncope * likely vasovagal and not cardiac arrest. Continue telemetry. * follow up echo shows an EF 60%. * consider adding midodrine to HD days and/or hold antihypertensives on those days. Anterior chest edema * Resolved. I am unclear what had happened, but concerning that the fluid she received through her fistula may have extravasated. Appears improved. * Seen by vascular surgery, and no need for intervention at this time on her fistula. ABLA * had bleeding from her fistula, since resolved * Hg dropped from 9.7 to 7.9, but has remained stable since admission. * No additional work up at this time. Chronic conditions: * End-stage renal disease on dialysis-Patient was at dialysis on the day of presentation-Tuesday dialysis-Patient only had 20 minutes left on her session today when they stopped dialysis due to her hypotension-Continue home binders-Patient follows with Dr. 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 * Glaucoma-Continue home eyedrops * Chronic HFpEF-Diastolic in ffnzbx-Pkxhtzuyggm-Ivuwrzal for volume management * COPD/asthma-Continue home inhalers * Dementia-Continue home memantine Discharge back to shelter. DW family at bedside. Medications at Discharge Home Medications timolol maleate 0.5 % eye drops 1 drp EACH EYE BID GLAUCOMA 11/26/15 levothyroxine 100 mcg tablet 100 mcg PO DAILY thyroid 07/31/19 isosorbide mononitrate 60 mg tablet,extended release 24 hr 60 mg PO SUMOWEFR HTN 10/26/19 nifedipine 60 mg tablet,extended release 60 mg PO DAILY BLOOD PRESSURE 05/12/21 albuterol sulfate 90 mcg/actuation aerosol inhaler 2 inh inhalation Q4H PRN Shortness Of Breath 07/17/22 aspirin 81 mg tablet,delayed release 81 mg PO DAILY HEART HEALTH 07/17/22 budesonide-formoterol HFA 160 mcg-4.5 mcg/actuation aerosol inhaler 1 inh inhalation QHS SHORTNESS OF BREATH 07/17/22 dextran 70-hypromellose 0.1 %-0.3 % eye drops 1 drp ophthalmic (eye) QHS 07/17/22 albuterol sulfate 2.5 mg/3 mL (0.083 %) solution for nebulization 2.5 mg continuous nebulization Q4H PRN SOB/Wheezing 12/05/22 clopidogrel 75 mg tablet 75 mg PO DAILY #30 tabs 12/06/22 atorvastatin 20 mg tablet 40 mg (2 x 20 mg) PO DAILY CHOLESTEROL #1 TAB 03/16/23 acetaminophen 500 mg capsule 500 mg PO Q6H PRN fever or pain 08/29/23 bisacodyl 10 mg rectal suppository 10 mg MA DAILY PRN constipation 08/29/23 donepezil 10 mg tablet 10 mg PO DAILY 08/29/23 magnesium hydroxide 400 mg/5 mL oral suspension (Milk of Magnesia) 5 ml PO DAILY PRN constipation 08/29/23 mineral oil (Fleet Mineral Oil enema) 118 ml MA DAILY PRN constipation 09/12/23 memantine 5 mg tablet 5 mg PO BID 03/12/24 sevelamer carbonate 800 mg tablet 800 mg PO TID 07/03/24 vitamin B complex-vitamin C-folic acid 0.8 mg tablet (Nephro-Jean Paul) 1 tab DAILY 07/03/24 food supplemt, lactose-reduced 0.08 gram-1.5 kcal/mL oral liquid (Ensure Plus High Protein) 120 ml PO 4X/DAY #0 mL 07/05/24 Hospital Course Operations None Procedures Dialysis Summary of Care Provided Minutes Spent on Discharge: 32 Weight / BM (more content not included)... [facility] 08-03-2023 Discharge summary Note Date/Time August 03, 2023 2:29pm [facility] Medical Records Department [address] [place] [address] Emergency Department Summary 08/03/23 MR#: [id number] Acct: [id number] Name: NICOLE SALVADOR Rep #:[id number] : 1935 88 From: Jey Benitez MD PCP: Dr. Kishan Camejo MD Status:REG E R Location: ED ADDENDUM by Dr. Jey Benitez MD on 08/03/23 at 1556 Prior to discharge, patient started complaining of left hip pain. On examination, she does have a hematoma on the left lateral aspect of her left hip, but she has no pain with logrolling of her femur and is able to flex and extend her left hip and knee. She remains neurovascular intact distally. X-rays of the pelvis and left hip were interpreted by myself independently and I see no obvious intertrochanteric fracture. I reviewed the radiology report which comments on possible avulsion fracture of the greater trochanter. I discussed the patient with the orthopedic surgeon, Dr. Micha Vogel, who has alsoreviewed the x-ray. Given her clinical exam, it was not felt that she requires observation or admission for further imaging for occult fracture such as MRI. She will be weightbearing as tolerated with her walker and she can also use her wheelchair in the shelter facility. They are to follow-up with orthopedics in approximately 1 week for probable repeat x-rays. I discussed this with her daughter who is agreeable to the plan. Disposition remains discharged in stable condition. 08/03/23 1556<Electronically signed by Jey Benitez MD> Cosigner Signature (if applicable): cc: Dr. Kishan Camejo MD ~* Signed HPI History of Present Illness Chief Complaint: Head Injury Narrative Narrative: 88-year-old female past medical history of stroke, on Plavix and aspirin presents via EMS from the [facility] with head injury. Mariola is at the bedside and it was reported that she was standing, trying to get something on her walker, when she fell. She hit the back of her head against the wall. There is no reported loss of consciousness. Patient states that she has scalp tenderness and mild headache. She denies other injury, no neck pain, no other symptoms. [facility] Medical History Acute respiratory failure with hypoxia Anemia Anemia Asthma Cerebellar infarct Chronic diastolic (congestive) heart failure Chronic kidney disease (CKD) stage G5/A1, glomerular filtration rate (GFR) less than or equal to 15 mL/min/1.73 square meter and albuminuria creatinine ratio less than 30 mg/g Chronic renal failure, stage 5 Cough Dementia Elevated troponin I level End-stage renal disease (ESRD) ESRD (end stage renal disease) on dialysis Essential hypertension Glaucoma History of CVA (cerebrovascular accident) (12/15/19) Hyperlipidemia Hypertension Iron deficiency anemia Iron deficiency anemia Metabolic acidosis Obesity (BMI 30.0-34.9) Problem with dialysis access Problem with dialysis access RENAL FAILURE STAGE 6 Respiratory failure with hypoxia Shortness of breath Speech apraxia TIA (transient ischemic attack) Home Medications timolol maleate 0.5 % eye drops 1 drp EACH EYE BID GLAUCOMA 11/26/15 [History Last Taken 03/15/23] calcium acetate(phosphat bind) 667 mg capsule 1,334 mg PO TIDCM RENAL DIALYSIS 07/14/19 [History Last Taken 03/15/23] levothyroxine 100 mcg tablet 100 mcg PO DAILY thyroid 07/31/19 [History Last Taken 03/15/23] isosorbide mononitrate 60 mg tablet,extended release 24 hr 60 mg PO SUMOWEFR HTN10/26/19 [History Last Taken 03/14/23] nifedipine 60 mg tablet,extended release 60 mg PO DAILY BLOOD PRESSURE 05/12/21 [History Last Taken 03/15/23] albuterol sulfate 90 mcg/actuation aerosol inhaler 2 inh inhalation Q4H PRN Shortness Of Breath 07/17/22 [History Last Taken Unknown] aspirin 81 mg tablet,delayed release 81 mg PO DAILY HEART HEALTH 07/17/22 [History Last Taken 03/15/23] budesonide-formoterol HFA 160 mcg-4.5 mcg/actuation aerosol inhaler 1 inh inhalation QHS SHORTNESS OF BREATH 07/17/22 [History Last Taken 03/14/23] dextran 70-hypromellose 0.1 %-0.3 % eye drops 1 drp ophthalmic (eye) QHS 07/17/22 [History Last Taken 03/14/23] hydrocortisone probutate 0.1 % topical cream (Pandel) 1 applic topical Q12H PRN RASH/ITCHING 07/17/22 [History Last Taken Unknown] vitamin B complex and vitamin C no.20-folic acid 1 mg capsule 1 cap PO DAILY 07/17/22 [History Last Taken 03/15/23] albuterol sulfate 2.5 mg/3 mL (0.083 %) solution for nebulization 2.5 mg continuous nebulization Q4H PRN SOB/Wheezing 12/05/22 [History Last Taken Unknown] clopidogrel 75 mg tablet 75 mg PO DAILY #30 tabs 12/06/22 [Rx Last Taken 03/15/23] atorvastatin 20 mg tablet 40 mg (2 x 20 mg) PO DAILY CHOLESTEROL #1 TAB 03/16/23[Rx Last Taken 03/14/23] Allergy/AdvReac Type Severity Reaction Status Date / Time erythromycin base Allergy Rash Verified 08/03/23 14:18 lisinopril Allergy Unknown Verified 08/03/23 14:18 NSAIDS (Non-Steroidal Allergy Other Verified 08/03/23 14:18 Anti-Inflamma Salicylates Allergy Other Verified 08/03/23 14:18 Family History Mother Colon cancer Hypertension Father Hypertension Surgical History History of loop recorder (07/20/19) Hx of cataract extraction Hx of foot surgery Hx of hysterectomy Hx of thyroidectomy s/p left AV fistula creation (02/19/19) Social History Smoking Status: Never smoker alcohol intake: never substance use type: does not use caffeine: Yes what type of physical activity do you participate in: none frequency: does not exercise ROS ROS ED ROS Narrative Mildly limited secondary to age and dementia. Constitutional: No fever, no chills. HEENT: No sore throat. No neck pain. No loss of vision. No rhinorrhea. Cardiovascular: No chest pain. No palpitations. No pedal edema. Respiratory: No cough, no shortness of breath. Abdominal: No abdominal pain. No nausea. No vomiting. Genitourinary: No dysuria. No hematuria. Musculoskeletal: No myalgias. No arthralgias. Neurologic: Positive headaches. No dizziness. No lightheadedness. Skin: No rash. No change in color. Positive occipital scalp tenderness left greater than right. Psychiatric: No depression. No anxiety. EXAM Physical Exam Narrative Exam Narrative: Afebrile. Vital signs noted. GCS 15. ABCs intact. HEENT: Normocephalic. Mild tenderness to palpation left occipital scalp greaterthan right with small hematoma. PERRL, EOMI. Neck soft and supple. No point tenderness or step off. Cardiovascular: Regular rate and rhythm. No murmurs, rubs, or gallops appreciated. Respiratory: No tachypnea. Lungs clear to auscultation bilaterally. Gastrointestinal: Abdomen soft, nontender, with normoactive bowel sounds. No rebound or guarding. Neurological: Awake. Alert. At baseline. Nonfocal, nonlateralizing. Able to raise arms above head without difficulty. Skin: No rash. Normal color. No pallor. Musculoskeletal: No pedal edema. Full range of motion extremities. Const Vital Signs: 08/03/23 14:18 08/03/23 14:24 Temperature 97.6 F L Temperature Source Oral Pulse Rate 80 Respiratory Rate 18 Respiratory Effort Normal Non-Labored Respiratory Depth Normal Respiratory Pattern Normal Blood Pressure 166/82 H Blood Pressure Mean 110 Pulse Ox 98 Oxygen Delivery Method Room Air Room Air MDM MDM MDM Narrative Medical decision making narrative: In the differential diagnosis is closed head injury with scalp hematoma versus skull fracture and intracranial hemorrhage. In discussion with her daughter, CTof the brain will be obtained, but I do not feel CT imaging of the neck is indicated as she has no pain and is moving her head without pain or difficulty. There is higher concern for intracranial hemorrhage given that she is on anticoagulation. I do have lower concern for intracranial hemorrhage as it appears she has more of an occipital hemorrhage and she appears to be at her baseline neurologically without focal deficit. I do not feel that laboratory work is indicated. I reviewed the CT report of the CT of the brain, and there is no evidence of skull fracture or intracranial hemorrhage, there is evidence of an old infarct. At this point in time, patient was administered Tylenol 650 mg orally at her request. In discussion with her daughter, it was felt that she could be return safely to the shelter facility. I do not feel she requires observation or admission at this time. Return instructions to the emergency department werereviewed. Disposition is discharged in stable condition. History & Record Review Discussion w/independent historian: Patient and Family Additional record(s) reviewed:: Prior ED visit Radiography Diagnostic Testing: Clinical Impression(s) from Imaging Studies Brain CT 08/03/23 14:25 IMPRESSION: Normal unenhanced CT scan of the brain. Electronically Signed: Perfecto Brice MD at 14:46 EDT , Discharge Plan Triage Chief Complaint: Head Injury ED Provider: Jey Benitez Dx/Rx/DC Orders Clinical Impression: Head injury, acute, Fall Instructions: ED Scalp Contusion, ED Head Injury (Adult) Prescriptions: No Action levothyroxine 100 mcg tablet 100 mcg PO DAILY nifedipine 60 mg tablet extended release 60 mg PO DAILY timolol maleate 1 DROP drops 1 drp EACH EYE BID calcium acetate(phosphat bind) 667 MG capsule 1,334 mg PO TIDCM isosorbide mononitrate 60 MG tablet 60 mg PO SUMOWEFR Pandel 0.1 % Cream 1 applic TOPICAL Q12H PRN (Reason: RASH/ITCHING) Patient Comments: PRN PER JUL B complex with C 20-folic acid 1 mg Capsule 1 cap PO DAILY albuterol sulfate 90 mcg/actuation HFA aerosol inhaler 2 inh INHALATION Q4H PRN (Reason: Shortness Of Breath) Patient Comments: PRN PER MAR budesonide-formoterol 160-4.5 mcg/actuation Hfa Aerosol Inhaler 1 inh INHALATION QHS dextran 70-hypromellose 0.1-0.3 % Drops 1 drp ophthalmic (eye) QHS aspirin 81 MG tablet,delayed release (DR/EC) 81 mg PO DAILY albuterol sulfate 2.5 mg /3 mL (0.083 %) solution for nebulization 2.5 mg continuous nebulization Q4H PRN (Reason: SOB/Wheezing) Patient Comments: PRN PER MAR clopidogrel 75 mg Tablet 75 mg PO DAILY Qty: 30 5RF atorvastatin 20 mg Tablet 40 mg PO DAILY Qty: 1 0RF Primary Care Provider: Kishan Camejo Referrals: Kishan Camejo MD [Primary Care Provider] - As soon as possible Activity Restrictions/Additional Instructions: Resume previous medications and routines. Tylenol as needed for pain. Disposition Disposition: Alf Facility Discharge Location: [facility] [place] What to do if you have Problems For any increased pain, shortness of breath, bleeding, nausea or vomiting, chestpain, or any unexpected problems, contact your Primary Care Provider. Call [facility] ([phone]) or report to the closest Emergency Room. Call 911 if necessary. 08/03/23 1452 <Electronically signed by Jey Benitez MD> Cosigner Signature (if applicable): CC: Dr. Kishan Camejo MD ~ Signed [facility] Work Phone: 1(243) 798-312101-22-2024 Discharge summary Author Jose Thapa [facility] June 13, 2023 3:49pm Note Date/Time June 13, 2023 3 :24pm [facility] Medical Records Department [address] [place] [address] Emergency Department Summary 06/13/23 MR#: [id number] Acct: [id number] Name: NICOLE SALVADOR Rep #:[id number] : 1935 88 From: Jose Thapa MD PCP: Dr. Kishan Camejo MD Status:REG E R Location: ED HPI History of Present Illness Chief Complaint: Fall Detail of Chief Complaint: Left arm and left foot Informant: patient Onset/Context/Timing Onset: Hours Mechanism/Context: Blunt Injury and Fall Location of pain/injuries: Left arm and Left foot Quality of Pain: Dull Current Severity: Mild Maximum Severity: Moderate Worsened by: Palpation Relieved by: Rest Associated Symptoms Associated Symptoms: Negative for Parasthesias, Weakness, Loss of function or Loss of consciousness Narrative Narrative: Patient is a 88-year-old woman who presents after fall. She states she landed her left side. She denies hitting her head. She is not on anticoagulants. Sheis on Plavix. She denies headache. She denies change in vision, blurred vision, loss of vision or double vision. She denies ringing or ears decreased hearing. She denies neck pain. She denies chest pain or shortness of breath. She denies low back pain. She reported hip pain to EMS and nurse. Patient does have history of confusion. Prior similar symptoms: No Recent Illness/Hospitalization: No PFSH PFS Medical History Acute respiratory failure with hypoxia Anemia Anemia Asthma Cerebellar infarct Chronic diastolic (congestive) heart failure Chronic kidney disease (CKD) stage G5/A1, glomerular filtration rate (GFR) less than or equal to 15 mL/min/1.73 square meter and albuminuria creatinine ratio less than 30 mg/g Chronic renal failure, stage 5 Cough Dementia Elevated troponin I level End-stage renal disease (ESRD) ESRD (end stage renal disease) on dialysis Essential hypertension Glaucoma History of CVA (cerebrovascular accident) (12/15/19) Hyperlipidemia Hypertension Iron deficiency anemia Iron deficiency anemia Metabolic acidosis Obesity (BMI 30.0-34.9) Problem with dialysis access Problem with dialysis access RENAL FAILURE STAGE 6 Respiratory failure with hypoxia Shortness of breath Speech apraxia TIA (transient ischemic attack) Home Medications timolol maleate 0.5 % eye drops 1 drp EACH EYE BID GLAUCOMA 11/26/15 [History Last Taken 03/15/23] calcium acetate(phosphat bind) 667 mg capsule 1,334 mg PO TIDCM RENAL DIALYSIS 07/14/19 [History Last Taken 03/15/23] levothyroxine 100 mcg tablet 100 mcg PO DAILY thyroid 07/31/19 [History Last Taken 03/15/23] isosorbide mononitrate 60 mg tablet,extended release 24 hr 60 mg PO SUMOWEFR HTN10/26/19 [History Last Taken 03/14/23] nifedipine 60 mg tablet,extended release 60 mg PO DAILY BLOOD PRESSURE 05/12/21 [History Last Taken 03/15/23] albuterol sulfate 90 mcg/actuation aerosol inhaler 2 inh inhalation Q4H PRN Shortness Of Breath 07/17/22 [History Last Taken Unknown] aspirin 81 mg tablet,delayed release 81 mg PO DAILY HEART HEALTH 07/17/22 [History Last Taken 03/15/23] budesonide-formoterol HFA 160 mcg-4.5 mcg/actuation aerosol inhaler 1 inh inhalation QHS SHORTNESS OF BREATH 07/17/22 [History Last Taken 03/14/23] dextran 70-hypromellose 0.1 %-0.3 % eye drops 1 drp ophthalmic (eye) QHS 07/17/22 [History Last Taken 03/14/23] hydrocortisone probutate 0.1 % topical cream (Pandel) 1 applic topical Q12H PRN RASH/ITCHING 07/17/22 [History Last Taken Unknown] vitamin B complex and vitamin C no.20-folic acid 1 mg capsule 1 cap PO DAILY 07/17/22 [History Last Taken 03/15/23] albuterol sulfate 2.5 mg/3 mL (0.083 %) solution for nebulization 2.5 mg continuous nebulization Q4H PRN SOB/Wheezing 12/05/22 [History Last Taken Unknown] clopidogrel 75 mg tablet 75 mg PO DAILY #30 tabs 12/06/22 [Rx Last Taken 03/15/23] atorvastatin 20 mg tablet 40 mg (2 x 20 mg) PO DAILY CHOLESTEROL #1 TAB 03/16/23[Rx Last Taken 03/14/23] Allergy/AdvReac Type Severity Reaction Status Date / Time erythromycin base Allergy Rash Verified 06/13/23 15:01 lisinopril Allergy Unknown Verified 06/13/23 15:01 NSAIDS (Non-Steroidal Allergy Other Verified 06/13/23 15:01 Anti-Inflamma Salicylates Allergy Other Verified 06/13/23 15:01 Family History Mother Colon cancer Hypertension Father Hypertension Surgical History History of loop recorder (07/20/19) Hx of cataract extraction Hx of foot surgery Hx of hysterectomy Hx of thyroidectomy s/p left AV fistula creation (02/19/19) Social History Smoking Status: Never smoker alcohol intake: never substance use type: does not use caffeine: Yes what type of physical activity do you participate in: none frequency: does not exercise ROS ROS ED Eyes Eyes: Denies blurry vision, change in vision or other ENT ENT ED: Denies rhinorrhea or sore throat Cardiovascular Cardiovascular: Denies chest pain or palpitations Respiratory/Chest Respiratory/Chest: Denies cough or dyspnea Gastrointestinal Gastrointestinal: Denies abdominal pain, nausea or vomiting Genitourinary Genitourinary ED: Denies dysuria, hematuria or urinary frequency Musculoskeletal Musculoskeletal: Reports other Details: Left arm and left foot pain. ; Denies arthralgias, back pain, myalgias or neck pain Integumentary Denies rash Neurologic Neurologic: Denies headache(s) or paresthesias EXAM Physical Exam Const Vital Signs: 06/13/23 14:57 06/13/23 15:02 Temperature 98.4 F Temperature Source Temporal Pulse Rate 79 Respiratory Rate 18 Respiratory Effort Normal Non-Labored Respiratory Depth Normal Respiratory Pattern Normal Blood Pressure 158/81 H Blood Pressure Mean 106 Pulse Ox 97 Oxygen Delivery Method Room Air Positive well nourished and well developed General Appearance ED: well developed and NAD HEENT HEENT Narrative: Ears are normal. TMs are normal. Posterior pharynx out erythema exudate. Uvula is midline. atraumatic; Negative for tenderness Nose: Negative for septum abnormal Eyes PERRL and EOMs intact bilaterally General Eye ED: Yes other Other Details: There is no nystagmus. There is no subconjunctival hemorrhage. Neck General: Negative for tenderness Chest Wall inspection of chest normal and palpation of chest normal Resp normal respiratory effort and clear to auscultation bilaterally Cardio regular rhythm, S1 normal heart sound, S2 normal heart sound and no murmurs GI normal to inspection, nondistended, normoactive bowel sounds, non-tender, non-distended and no masses Back/Spine normal to inspection Back/Spine Narrative: There is no pain the patient the pelvis. Thoracic Spine / Upper Back: Negative for thoracic spinal tenderness Extremity normal to inspection; Negative for full ROM Extremity Narrative: Limited range of motion of left upper extremity due to pain. There is pain palpation of the left humerus. There is no pain ovation of the clavicle, AC joint or proximal humerus. There is no pain the patient over the lateral medialepicondyles or radial head with supination pronation. There is no pain ovation over the olecranon process. There is no pain the patient over the distal radiusulna, carpal bones or metacarpal bones. Axillary, median, radial and ulnar function intact. Patient has a fistula left arm. There is a thrill noted. There is no shortening of the left lower extremity. There is no pain with logrolling in the hip or knee. There is no pain the patient of the pelvis i.e. iliac wing, pubic symphysis or ischial tuberosity. There is no pain ovation over the greater trochanteric region. There is no pain the patient over the patella or joint line. Patient is able to lift her leg up against gravity. There is no pain the patient over the lateral or medial malleolus. There is no pain ovation over the base of the fifth metatarsal. Neuro CN's II-XII intact bilaterally, moves all extremities, no focal motor deficits and no sensory deficits noted [place] Coma Scale: document GCS findings Spontaneous Obeys Commands Oriented 15 Plantar Reflex: Downgoing: bilateral Psych mental status grossly normal and thought process normal Skin no rashes or lesions noted, no wounds and no jaundice MDM MDM MDM Narrative Medical decision making narrative: Patient was offered pain medicine, which she declined. Patient has pain palpation of the left foot and there is swelling of the left foot. There is no pain ovation over the lateral medial malleolus. For this reason x-ray of the foot was obtained. X- ray of the left arm was obtained since she has pain palpation of the humerus. I was informed at 1521 that the patient's daughter is recording conversations. Furthermore daughter states we should have known that she needed pain medicine. Radiography Chest X-Ray - ED: 2 View (2 view x-ray of the foot reveals degenerative changes of the MTP joint. There is a screw noted. There is no other abnormality noted. There is no soft tissue swelling. There is no calcification of the vessels. This independent reviewed interpreted by me at 1538.) and Read by ED Physician (2 view x-ray of the left humerus reveals multiple surgical clips. There is evidence of a fistula. There is no acute bony abnormality. There is no anterior posterior fat pad noted. There is no widening of the humeral glenoid joint. This was independent reviewed interpreted by me at 1539.) Diagnostic Testing: Clinical Impression(s) from Imaging Studies Foot X-Ray 06/13/23 15:06 IMPRESSION: Degenerative changes at the first metatarsophalangeal joint and prior screw fixation of the distal portion of the first metatarsal. No acute fracture is seen. Electronically Signed: Perfecto Brice MD at 15:39 EST , Humerus X-Ray 06/13/23 15:20 IMPRESSION: No acute abnormality is seen. Electronically Signed: Perfecto Brice MD at 15:45 EST , Treatment and Re-Evaluation Narrative: Patient and daughter were informed of results at 1545. Plan is discharge to home. Discharge Plan Triage Chief Complaint: Fall ED Provider: Jose Thapa Dx/Rx/DC Orders Clinical Impression: Contusion of left forearm, initial encounter, Hyperlipidemia, ESRD on hemodialysis, Contusion of left foot, initial encounter, Injury due to fall, Arteriovenous fistula of left upper extremity Instructions: ED Contusion, Lower Extremity, ED Contusion, Upper Extremity Prescriptions: No Action levothyroxine 100 mcg tablet 100 mcg PO DAILY nifedipine 60 mg tablet extended release 60 mg PO DAILY timolol maleate 1 DROP drops 1 drp EACH EYE BID calcium acetate(phosphat bind) 667 MG capsule 1,334 mg PO TIDCM isosorbide mononitrate 60 MG tablet 60 mg PO SUMOWEFR Pandel 0.1 % Cream 1 applic TOPICAL Q12H PRN (Reason: RASH/ITCHING) Patient Comments: PRN PER JUL B complex with C 20-folic acid 1 mg Capsule 1 cap PO DAILY albuterol sulfate 90 mcg/actuation HFA aerosol inhaler 2 inh INHALATION Q4H PRN (Reason: Shortness Of Breath) Patient Comments: PRN PER MAR budesonide-formoterol 160-4.5 mcg/actuation Hfa Aerosol Inhaler 1 inh INHALATION QHS dextran 70-hypromellose 0.1-0.3 % Drops 1 drp ophthalmic (eye) QHS aspirin 81 MG tablet,delayed release (DR/EC) 81 mg PO DAILY albuterol sulfate 2.5 mg /3 mL (0.083 %) solution for nebulization 2.5 mg continuous nebulization Q4H PRN (Reason: SOB/Wheezing) Patient Comments: PRN PER MAR clopidogrel 75 mg Tablet 75 mg PO DAILY Qty: 30 5RF atorvastatin 20 mg Tablet 40 mg PO DAILY Qty: 1 0RF Primary Care Provider: Kishan Camejo Referrals: Kishan Camejo MD [Primary Care Provider] - 1 Week if not improving Activity Restrictions/Additional Instructions: 1. Apply ice to your left arm and foot 6-10 times a day for 20 to 30 minutes per application. 2. You may feel worse over the next 24 to 48 hours. 3. You may hurt for several days up to a week. 4. Take Tylenol for your pain Disposition Disposition: Home, Self Care What to do if you have Problems For any increased pain, shortness of breath, bleeding, nausea or vomiting, chestpain, or any unexpected problems, contact your Primary Care Provider. Call [facility] ([phone]) or report to the closest Emergency Room. Call 911 if necessary. 06/13/23 4974 <Electronically signed by Jose Thapa MD> Cosigner Signature (if applicable): CC: Dr. Kishan Camejo MD ~ Signed [facility] Work Phone: 1(924) 473-671710-25-2023 Discharge summary Author Micha Kotsonis [facility] March 16, 2023 11:49am Note Date/Time March 16, 2023 1 1:47am [facility] Medical Records Department [address] [place] [address] [facility] Care MR#: [id number] Acct: [id number] Name: NICOLE SALVADOR Rep #:[id number] : 1935 88 From: Micha newton MD PCP: Dr. Wayne Leahy MD Status:ADM I NO Certification of patient admission REQUIRED AT TIME OF ADMISSION. I CERTIFY THAT POST-HOSPITAL ECF SERVICES ARE REQUIRED TO BE GIVEN ON AN IN-PATIENT BASIS BECAUSE OF THE ABOVE NAMED PATIENT'S NEED FOR LONG TERM CARE ON A CONTINUING BASIS FOR THE CONDITION(S) FOR WHICH HE/SHE WAS RECEIVING IN-PATIENT HOSPITAL SERVICES PRIOR TO HIS/HER TRANSFER TO THE [facility]. 03/16/23 1149<Electronically signed by Micha Feliciano MD> Diet Diet Order/Speech Therapy: 03/15/23 16:44 Diet: Renal - General Food consistency:: Regular Liquid Consistency:: Regular/Thin Type of Dietary Supplement:: Nepro Diet Comments: 120mL Nepro BID w/ breakfast and dinner meals Routine Orders/Code Status Routine Lab Work: CBC and BMP Code Status: Full Code Therapies Physical Therapy: Eval and Treat Occupational Therapy: Eval and Treat Problem/Diagnosis (1) ESRD on hemodialysis: Status: Acute Code(s): N18.6 - End stage renal disease; Z99.2 - Dependence on renal dialysis (2) Confusion: Status: Acute Code(s): R41.0 - Disorientation, unspecified (3) Left-sided weakness: Status: Acute Code(s): R53.1 - Weakness (4) skilled nursing resident: Status: Acute Code(s): Z59.3 - Problems related to living in residential institution (5) Dementia: Status: Acute Code(s): F03.90 - Unspecified dementia, unspecified severity, without behavioral disturbance, psychotic disturbance, mood disturbance, and anxiety Plan 1. CVA rule out ? We will obtain an MRI ? Will not obtain a echo as this was recently done 2 months ago, CTA of the headand neck is unremarkable on this admission ? She has had a previous EEG which was negative for seizure, and she has had work-ups in the past that were unremarkable ? As she is already on aspirin and Plavix, the only change that I can make is toincrease her Lipitor ? She did have a loop recorder in June 2019 so unlikely to have A-fib 2. HTN/HLD/chronic diastolic CHF ? Recent echo with an EF of 65% and stage II diastolic dysfunction ? Can resume her home blood pressure medications tomorrow as I will be a 24-hourwindow progressive hypertension ? Blood pressures are currently stable ? We will continue to monitor and make adjustments as necessary ? Continue with aspirin and Plavix 3. ESRD on Dialysis/Anemia of chronic disease ? Consult nephrology for dialysis 4. Hypothyroidism ? Stable ? Continue with Synthroid DVT: Ambulation 75 minutes was spent on direct patient care, including documentation as well as chart review and collaboration with colleagues Allergies/Procedures Done in Hospital Allergies erythromycin base Allergy (Verified 03/15/23 09:57) Rash lisinopril Allergy (Verified 03/15/23 09:57) Unknown NSAIDS (Non-Steroidal Anti-Inflamma Allergy (Verified 03/15/23 09:57) Other Salicylates Allergy (Verified 03/15/23 09:57) Other Procedures: None Type of Care/Length of Stay Estimated LOS: More Than 30 Days Type of Care Needed: Intermediate Rehab Potential: Good Prognosis: Good Additional Orders/Day of Discharge Day of Discharge: 03/16/23 Dietary and Speech Recommendations Dietitian Recommendations/Changes: Will change diet to Renal. Will add 120mL PO Nepro BID w/ breakfast and dinner meals. Discharge Plan Admission Admit Date/Time: 03/15/23 12:24 Attending Provider: Micha Feliciano Primary Care Provider: Wayne Leahy [employer] Providers: Kianna Patrick Discharge Orders/Prescriptions Prescriptions: Continued levothyroxine 100 mcg tablet 100 mcg PO DAILY nifedipine 60 mg tablet extended release 60 mg PO DAILY timolol maleate 1 DROP drops 1 drp EACH EYE BID calcium acetate(phosphat bind) 667 MG capsule 1,334 mg PO TIDCM isosorbide mononitrate 60 MG tablet 60 mg PO SUMOWEFR Pandel 0.1 % Cream 1 applic TOPICAL Q12H PRN (Reason: RASH/ITCHING) Patient Comments: PRN PER MAR B complex with C 20-folic acid 1 mg Capsule 1 cap PO DAILY albuterol sulfate 90 mcg/actuation HFA aerosol inhaler 2 inh INHALATION Q4H PRN (Reason: Shortness Of Breath) Patient Comments: PRN PER MAR budesonide-formoterol 160-4.5 mcg/actuation Hfa Aerosol Inhaler 1 inh INHALATION QHS dextran 70-hypromellose 0.1-0.3 % Drops 1 drp ophthalmic (eye) QHS aspirin 81 MG tablet,delayed release (DR/EC) 81 mg PO DAILY albuterol sulfate 2.5 mg /3 mL (0.083 %) solution for nebulization 2.5 mg continuous nebulization Q4H PRN (Reason: SOB/Wheezing) Patient Comments: PRN PER MAR clopidogrel 75 mg Tablet 75 mg PO DAILY Qty: 30 5RF quetiapine 25 mg tablet 25 mg PO QHS Changed atorvastatin 20 mg Tablet 40 mg PO DAILY Qty: 1 0RF Referrals / Follow Up: Wayne Leahy Chi, MD [Primary Care Provider] - Disposition Disposition (needs filled in before D/C Order can be placed): Alf Facility (5) Dementia Qualifiers: Dementia type: vascular dementia 03/16/23 1149 <Electronically signed by Micha Feliciano MD> Cosigner Signature (if applicable): CC: Dr. Kianna Patrick DO; Dr. Wayne Leahy MD ~ [facility] Work Phone: 1(266) 258-585510-24-2023 History and physical note Author Micha Feliciano [facility] March 15, 2023 4:56pm Note Date/Time March 15, 2023 3 :04pm [facility] Medical Records Department [address] [place] [id number] H&P Exam - Hospitalist 03/15/23 1456 MR#: [id number] Acct: [id number] Name: NICOLE SALVADOR Rep #:[id number] : 1935 88 From: Micha newton MD PCP: Dr. Wayne Leahy MD Status:ADM I NO Location: ICU ICU02-1 HPI - General General Date of Admission: 03/15/23 HPI Narrative NICOLE SALVADOR, is a 88 F who presents from shelter with signs and symptoms consistent with a stroke. She was at dialysis when she developed left-sided weakness and confusion. Does appear that the confusion is resolved as is the left-sided weakness. Stroke alert was called and [facility] neurology recommended inpatient observation with further stroke work-up. She has had significant work-ups in the past with negative MRIs and she had a recent echo inJuly that demonstrated an EF of 65% with stage II diastolic dysfunction. She iscompletely asymptomatic and is alert and oriented person and place. No tPA was given. [facility] Medical History Acute respiratory failure with hypoxia Anemia Anemia Asthma Cerebellar infarct Chronic diastolic (congestive) heart failure Chronic kidney disease (CKD) stage G5/A1, glomerular filtration rate (GFR) less than or equal to 15 mL/min/1.73 square meter and albuminuria creatinine ratio less than 30 mg/g Chronic renal failure, stage 5 Cough Dementia Elevated troponin I level End-stage renal disease (ESRD) ESRD (end stage renal disease) on dialysis Essential hypertension Glaucoma History of CVA (cerebrovascular accident) (12/15/19) Hyperlipidemia Hypertension Iron deficiency anemia Iron deficiency anemia Metabolic acidosis Obesity (BMI 30.0-34.9) Problem with dialysis access Problem with dialysis access RENAL FAILURE STAGE 6 Respiratory failure with hypoxia Shortness of breath Speech apraxia TIA (transient ischemic attack) Home Medications timolol maleate 0.5 % eye drops 1 drp EACH EYE BID GLAUCOMA 11/26/15 [History Last Taken 03/15/23] calcium acetate(phosphat bind) 667 mg capsule 1,334 mg PO TIDCM RENAL DIALYSIS 07/14/19 [History Last Taken 03/15/23] levothyroxine 100 mcg tablet 100 mcg PO DAILY thyroid 07/31/19 [History Last Taken 03/15/23] isosorbide mononitrate 60 mg tablet,extended release 24 hr 60 mg PO SUMOWEFR HTN10/26/19 [History Last Taken 03/14/23] nifedipine 60 mg tablet,extended release 60 mg PO DAILY BLOOD PRESSURE 05/12/21 [History Last Taken 03/15/23] albuterol sulfate 90 mcg/actuation aerosol inhaler 2 inh inhalation Q4H PRN Shortness Of Breath 07/17/22 [History Last Taken Unknown] aspirin 81 mg tablet,delayed release 81 mg PO DAILY HEART HEALTH 07/17/22 [History Last Taken 03/15/23] atorvastatin 20 mg tablet 20 mg PO DAILY CHOLESTEROL 07/17/22 [History Last Taken 03/14/23] budesonide-formoterol HFA 160 mcg-4.5 mcg/actuation aerosol inhaler 1 inh inhalation QHS SHORTNESS OF BREATH 07/17/22 [History Last Taken 03/14/23] dextran 70-hypromellose 0.1 %-0.3 % eye drops 1 drp ophthalmic (eye) QHS 07/17/22 [History Last Taken 03/14/23] hydrocortisone probutate 0.1 % topical cream (Pandel) 1 applic topical Q12H PRN RASH/ITCHING 07/17/22 [History Last Taken Unknown] vitamin B complex and vitamin C no.20-folic acid 1 mg capsule 1 cap PO DAILY 07/17/22 [History Last Taken 03/15/23] albuterol sulfate 2.5 mg/3 mL (0.083 %) solution for nebulization 2.5 mg continuous nebulization Q4H PRN SOB/Wheezing 12/05/22 [History Last Taken Unknown] clopidogrel 75 mg tablet 75 mg PO DAILY #30 tabs 12/06/22 [Rx Last Taken 03/15/23] quetiapine 25 mg tablet 25 mg PO QHS MOOD 03/15/23 [History Last Taken 03/14/23] Allergy/AdvReac Type Severity Reaction Status Date / Time erythromycin base Allergy Rash Verified 03/15/23 09:57 lisinopril Allergy Unknown Verified 03/15/23 09:57 NSAIDS (Non-Steroidal Allergy Other Verified 03/15/23 09:57 Anti-Inflamma Salicylates Allergy Other Verified 03/15/23 09:57 Family History Mother Colon cancer Hypertension Father Hypertension Surgical History History of loop recorder (07/20/19) Hx of cataract extraction Hx of foot surgery Hx of hysterectomy Hx of thyroidectomy s/p left AV fistula creation (02/19/19) Social History Smoking Status: Never smoker alcohol intake: never substance use type: does not use caffeine: Yes what type of physical activity do you participate in: none frequency: does not exercise ROS Constitutional Constitutional: Denies chills, fatigue, fever(s) or malaise Eyes Eyes: Denies blurry vision ENT HEENT: Denies headache(s) or nasal discharge Cardiovascular Cardiovascular: Denies chest pain, dyspnea on exertion or syncope Respiratory/Chest Respiratory/Chest: Denies cough, shortness of breath at rest or shortness of breath with exertion Gastrointestinal Gastrointestinal: Denies constipation, diarrhea, nausea or vomiting Genitourinary Genitourinary: Denies dysuria Neurologic Neurologic: Reports confusion and focal weakness; Denies numbness or tremor(s) Psychiatric Psychiatric: Denies anxiety or depression Vital Signs Vital Signs Vital Signs: 03/15/23 10:24 03/15/23 10:26 03/15/23 10:26 Temperature 97.7 F L Temperature Source Oral Pulse Rate 90 87 Respiratory Rate 20 H 16 Blood Pressure 109/94 H 109/94 H Blood Pressure Mean 99 99 Pulse Ox 98 100 Oxygen Delivery Method Room Air Room Air Room Air 03/15/23 11:05 03/15/23 11:06 03/15/23 11:53 Temperature Temperature Source Pulse Rate 90 94 89 Respiratory Rate 15 18 14 Blood Pressure 139/62 H 139/62 H 135/62 H Blood Pressure Mean 87 87 86 Pulse Ox 96 97 100 Oxygen Delivery Method Room Air Room Air Room Air 03/15/23 12:02 03/15/23 12:11 03/15/23 13:13 Temperature Temperature Source Pulse Rate 88 89 87 Respiratory Rate 16 17 14 Blood Pressure 127/64 H 127/64 H 143/60 H Blood Pressure Mean 85 85 87 Pulse Ox 99 99 97 Oxygen Delivery Method Room Air Room Air Weight Weight: 155 lb 13.869 oz Body Mass Index (BMI) 27.6 Physical Exam Narrative General: Alert, Oriented x2, Cooperative, No apparent distress HEENT: Atraumatic, PERRLA, EOMI, Normocephalic Oral: Moist Mucosa Neck: Supple, No JVD Lungs: Diminished, Normal air movement, No rhonchi, No wheeze, No rales Cardiovascular: Regular rate, Regular Rhythm, Normal S1, Normal S2, No murmurs Abdomen: Soft, Non Tender, Non-Distended, No Hepato-splenomegaly Extremities: No edema, Capillary Refill Less than 3 Seconds Skin: No rashes, No breakdown Musculoskeletal: No Tenderness to Palpation of Joints or Extremities Neurological: Cranial nerves II-XII grossly intact, Motor Exam 5/5 strength throughout, Sensory exam intact to light touch and pain Psych/Mental Status: Normal Affect, Appropriate Results Lab / Micro Data 03/15/23 10:36 03/15/23 10:36 Labs: Laboratory Results - last 24 hr 03/15/23 10:36: WBC 6.7, RBC 4.02 L, Hgb 11.5 L, Hct 36.3 L, MCV 90.3, MCH 28.6,MCHC 31.7 L, RDW Std Deviation 46.9 H, RDW Coeff of Lizett 14.2, Plt Count 144 L, MPV 11.0, Immature Gran % (Auto) 0.300, Neut % (Auto) 78.5 H, Lymph % (Auto) 10.3 L, Pender % (Auto) 8.3, Eos % (Auto) 1.6, Baso % (Auto) 1.0, Absolute Neuts (auto) 5.3, Absolute Lymphs (auto) 0.69 L, Nucleated RBC % 0, PT 13.2, INR 1.0, APTT 28.2, Sodium 137, Potassium 4.3, Chloride 100, Carbon Dioxide 32.0, Anion Gap 5, BUN 38 H, Creatinine 5.74 H, Estim Creat Clear Calc 5.71, Est GFR (MDRD) Af Amer 9 L, Est GFR (MDRD) Non-Af 7 L, BUN/Creatinine Ratio 6.6 L, Glucose 93, Calcium 8.4 L, Troponin I High Sens [address] 03/15/23 09:52 IMPRESSION: Chronic involutional changes of the brain. N.B. : The above Results were Read Back by Perfecto Brice MD to Dr Emmanuel MD, and understanding confirmed on 03/15/2023 10:16:47 (ET). Electronically Signed: Perfecto Brice MD at 10:17 EDT , Head/Neck CTA 03/15/23 09:53 IMPRESSION: Minimal calcific plaque at the origin of the right internal carotid artery causing less than 50% narrowing. N.B. : The above Results were Read Back by Perfecto Brice MD to Dr Emmanuel MD, and understanding confirmed on 03/15/2023 10:33:02 (ET). Electronically Signed: Perfecto Brice MD at 10:34 EDT , ADDENDUM: 03/15/23 1041 IMPRESSION: Minimal calcific plaque at the origin of the right internal carotid artery causing less than 50% narrowing. N.B. : The above Results were Read Back by Perfecto Brice MD to Dr Emmanuel MD, and understanding confirmed on 03/15/2023 10:33:02 (ET). Electronically Signed: Perfecto Brice MD at 10:34 EDT , Chest X-Ray 03/15/23 11:00 IMPRESSION: Stable examination. No acute abnormality is seen. Electronically Signed: Perfecto Brice MD at 11:15 EDT , Assessment & Plan Assessment/Plan (1) Left-sided weakness: PLAN: Plan 1. CVA rule out ? We will obtain an MRI ? Will not obtain a echo as this was recently done 2 months ago, CTA of the headand neck is unremarkable on this admission ? She has had a previous EEG which was negative for seizure, and she has had work-ups in the past that were unremarkable ? As she is already on aspirin and Plavix, the only change that I can make is toincrease her Lipitor ? She did have a loop recorder in June 2019 so unlikely to have A-fib 2. HTN/HLD/chronic diastolic CHF ? Recent echo with an EF of 65% and stage II diastolic dysfunction ? Can resume her home blood pressure medications tomorrow as I will be a 24-hourwindow progressive hypertension ? Blood pressures are currently stable ? We will continue to monitor and make adjustments as necessary ? Continue with aspirin and Plavix 3. ESRD on Dialysis/Anemia of chronic disease ? Consult nephrology for dialysis 4. Hypothyroidism ? Stable ? Continue with Synthroid DVT: Ambulation 75 minutes was spent on direct patient care, including documentation as well as chart review and collaboration with colleagues Charges/Coding Visit Charges Inpatient E&M: 22315 Init Hosp L3 03/15/23 1656 <Electronically signed by Micha Feliciano MD> Cosigner Signature (if applicable): CC: Dr. Micha Feliciano MD; Dr. Wayne Leahy MD~ Signed [facility] Work Phone: [phone] 341-269510-24-2023 Discharge summary Author Jey Benitez [facility] March 15, 2023 11:59am Note Date/Time March 15, 2023 1 1:33am [facility] Medical Records Department [address] [place] [address] Emergency Department Summary 03/15/23 MR#: [id number] Acct: [id number] Name: NICOLE SALVADOR Rep #:[id number] : 1935 88 From: Jey Benitez MD PCP: Dr. Wayne Leahy MD Status:REG E R Location: ED HPI History of Present Illness Chief Complaint: Stroke Alert Narrative Narrative: 88-year-old female presents with left-sided weakness and confusion while at dialysis. According to EMS, her symptoms began at around 904 as she was maybe an hour and a half into dialysis. Of note, she has had reported TIAs in the past and history of a loop recorder, hypertension, and hyperlipidemia, and she has had tPA in the past for neurological symptoms. Her history and physical is mildly limited secondary to her age/dementia. EMS does note that her left-sidedweakness of the upper and lower extremity is improving rapidly. [facility] Medical History Acute respiratory failure with hypoxia Anemia Anemia Asthma Cerebellar infarct Chronic diastolic (congestive) heart failure Chronic kidney disease (CKD) stage G5/A1, glomerular filtration rate (GFR) less than or equal to 15 mL/min/1.73 square meter and albuminuria creatinine ratio less than 30 mg/g Chronic renal failure, stage 5 Cough Dementia Elevated troponin I level End-stage renal disease (ESRD) ESRD (end stage renal disease) on dialysis Essential hypertension Glaucoma History of CVA (cerebrovascular accident) (12/15/19) Hyperlipidemia Hypertension Iron deficiency anemia Iron deficiency anemia Metabolic acidosis Obesity (BMI 30.0-34.9) Problem with dialysis access Problem with dialysis access RENAL FAILURE STAGE 6 Respiratory failure with hypoxia Shortness of breath Speech apraxia TIA (transient ischemic attack) Home Medications timolol maleate 0.5 % eye drops 1 drp EACH EYE BID GLAUCOMA 11/26/15 [History Last Taken 03/15/23] calcium acetate(phosphat bind) 667 mg capsule 1,334 mg PO TIDCM RENAL DIALYSIS 07/14/19 [History Last Taken 03/15/23] levothyroxine 100 mcg tablet 100 mcg PO DAILY thyroid 07/31/19 [History Last Taken 03/15/23] isosorbide mononitrate 60 mg tablet,extended release 24 hr 60 mg PO SUMOWEFR HTN10/26/19 [History Last Taken 03/14/23] nifedipine 60 mg tablet,extended release 60 mg PO DAILY BLOOD PRESSURE 05/12/21 [History Last Taken 03/15/23] albuterol sulfate 90 mcg/actuation aerosol inhaler 2 inh inhalation Q4H PRN Shortness Of Breath 07/17/22 [History Last Taken Unknown] aspirin 81 mg tablet,delayed release 81 mg PO DAILY HEART HEALTH 07/17/22 [History Last Taken 03/15/23] atorvastatin 20 mg tablet 20 mg PO DAILY CHOLESTEROL 07/17/22 [History Last Taken 03/14/23] budesonide-formoterol HFA 160 mcg-4.5 mcg/actuation aerosol inhaler 1 inh inhalation QHS SHORTNESS OF BREATH 07/17/22 [History Last Taken 03/14/23] dextran 70-hypromellose 0.1 %-0.3 % eye drops 1 drp ophthalmic (eye) QHS 07/17/22 [History Last Taken 03/14/23] hydrocortisone probutate 0.1 % topical cream (Pandel) 1 applic topical Q12H PRN RASH/ITCHING 07/17/22 [History Last Taken Unknown] vitamin B complex and vitamin C no.20-folic acid 1 mg capsule 1 cap PO DAILY 07/17/22 [History Last Taken 03/15/23] albuterol sulfate 2.5 mg/3 mL (0.083 %) solution for nebulization 2.5 mg continuous nebulization Q4H PRN SOB/Wheezing 12/05/22 [History Last Taken Unknown] clopidogrel 75 mg tablet 75 mg PO DAILY #30 tabs 12/06/22 [Rx Last Taken 03/15/23] quetiapine 25 mg tablet 25 mg PO QHS MOOD 03/15/23 [History Last Taken 03/14/23] Allergy/AdvReac Type Severity Reaction Status Date / Time erythromycin base Allergy Rash Verified 03/15/23 09:57 lisinopril Allergy Unknown Verified 03/15/23 09:57 NSAIDS (Non-Steroidal Allergy Other Verified 03/15/23 09:57 Anti-Inflamma Salicylates Allergy Other Verified 03/15/23 09:57 Family History Mother Colon cancer Hypertension Father Hypertension Surgical History History of loop recorder (07/20/19) Hx of cataract extraction Hx of foot surgery Hx of hysterectomy Hx of thyroidectomy s/p left AV fistula creation (02/19/19) Social History Smoking Status: Never smoker alcohol intake: never substance use type: does not use caffeine: Yes what type of physical activity do you participate in: none frequency: does not exercise ROS ROS ED ROS Narrative Limited secondary to dementia, baseline mental status. Per EMS: Constitutional: No fever, no chills. HEENT: No sore throat. No neck pain. No loss of vision. No rhinorrhea. Cardiovascular: No chest pain. No palpitations. No pedal edema. Respiratory: No cough, no shortness of breath. Abdominal: No abdominal pain. No nausea. No vomiting. Genitourinary: No dysuria. No hematuria. Musculoskeletal: No myalgias. No arthralgias. Left-sided weakness. Neurologic: No headaches. No dizziness. No lightheadedness. Skin: No rash. No change in color. Psychiatric: No depression. No anxiety. Positive confusion. Review of Systems ROS Unobtainable: due to mental status EXAM Physical Exam Narrative Exam Narrative: Afebrile. Vital signs noted. HEENT: Normocephalic. Atraumatic. PERRL, EOMI. Neck soft and supple. No pointtenderness or step off. Cardiovascular: Regular rate and rhythm. No murmurs, rubs, or gallops appreciated. Respiratory: No tachypnea. Lungs clear to auscultation bilaterally. Gastrointestinal: Abdomen soft, nontender, with normoactive bowel sounds. No rebound or guarding. Neurological: Awake. Alert. Nonfocal, initially, difficulty following commands. Questionable left-sided weakness. I would score her NIH initially as 4 for slight pronator drift of her left arm, left lower extremity weakness, and a slight dysarthria, however, this is the initial exam before CT scanning. Skin: No rash. Normal color. No pallor. Musculoskeletal: No pedal edema. Const Vital Signs: 03/15/23 10:24 03/15/23 10:26 03/15/23 10:26 Temperature 97.7 F L Temperature Source Oral Pulse Rate 90 87 Respiratory Rate 20 H 16 Blood Pressure 109/94 H 109/94 H Blood Pressure Mean 99 99 Pulse Ox 98 100 Oxygen Delivery Method Room Air Room Air Room Air 03/15/23 11:05 03/15/23 11:06 03/15/23 11:53 Temperature Temperature Source Pulse Rate 90 94 89 Respiratory Rate 15 18 14 Blood Pressure 139/62 H 139/62 H 135/62 H Blood Pressure Mean 87 87 86 Pulse Ox 96 97 100 Oxygen Delivery Method Room Air Room Air Room Air NIHSS NIHSS Initial: 1a Level of Consciousness: 0 1b LOC Questions (Score 2 if aphasic/stupor): 0 1c LOC Commands (Only score 1st attempt): 0 2 Best Gaze (If aphasic, use reflexive mvmts.): 0 3 Visual: 0 4 Facial Palsy: 0 5 Motor Arm Right (UN = amputation/fusion): 0 5 Motor Arm Left: 1 6 Motor Leg Right: 0 6 Motor Leg Left: 2 8 Sensory (Aphasia/stupor=0 or 1, coma=2): 0 9 Best Language: 0 10 Dysarthria (mute, coma=2, intubated=UN): 1 11 Extinction and Inattention (only scored if +): 0 Total Score: 4 MDM MDM MDM Narrative Medical decision making narrative: Reviewed the patient's prior records, she has had similar symptoms in the past, and even received tPA for neurological symptoms. She has had facial droop and left- sided weakness in the past with aphasia and dysarthria. Her daughter is currently at the bedside, and states that she is not on any stroke medications currently. I reviewed her MRI as she had one recently this year which showed noacute process, no prior strokes. Additionally, I received a phone call from theradiologist and the CT of the brain is negative for acute pathology, no acute hemorrhage or mass. I discussed the patient with the telestroke neurologist whostates that her symptoms have rapidly improved and are gone. With a negative MRI, she suggested that MRI be repeated as CTA of the head and neck is negative. Additionally, she suggested that there may be an alternative diagnosis such as unmasking as she has had work-ups in the past that were negative. I reviewed the patient's laboratory work and she has normal white count of 6.7, hemoglobin stable 11.5, hematocrit 36.3. Platelet count slightly low at 144 which I think is nonspecific. PT and INR are normal. She has a normal BMP withsodium normal at 137, potassium 4.3, chloride 100. Glucose normal at 93, high-sensitivity troponin also acceptable at 38. Upon repeat examination, she does not have any focal deficit or left-sided weakness. Her daughter is at the bedside and states that she is more at her baseline now. I discussed patient with Dr. Feliciano for observation. She will be placed on the PCU for observation. He requested that the MRI be ordered from the emergency departmentso that she can be placed in the queue and get it today if possible. He will check the results. Disposition is assigned to observation. Patient is in stable condition. History & Record Review Discussion w/independent historian: EMS personnel, Patient and Family Additional record(s) reviewed:: Prior ED visit and Prior labs Lab Data Attestation: I reviewed the patient's lab results. Labs: Laboratory Results - last 24 hr 03/15/23 10:36 WBC 6.7 RBC 4.02 L Hgb 11.5 L Hct 36.3 L MCV 90.3 MCH 28.6 MCHC 31.7 L RDW Std Deviation 46.9 H RDW Coeff of Lizett 14.2 Plt Count 144 L MPV 11.0 Immature Gran % (Auto) 0.300 Neut % (Auto) 78.5 H Lymph % (Auto) 10.3 L Pender % (Auto) 8.3 Eos % (Auto) 1.6 Baso % (Auto) 1.0 Absolute Neuts (auto) 5.3 Absolute Lymphs (auto) 0.69 L Nucleated RBC % 0 PT 13.2 INR 1.0 APTT 28.2 Sodium 137 Potassium 4.3 Chloride 100 Carbon Dioxide 32.0 Anion Gap 5 BUN 38 H Creatinine 5.74 H Estim Creat Clear Calc 5.71 Est GFR (MDRD) Af Amer 9 L Est GFR (MDRD) Non-Af 7 L BUN/Creatinine Ratio 6.6 L Glucose 93 Calcium 8.4 L Troponin I High Sens 38 Radiography Diagnostic Testing: Clinical Impression(s) from Imaging Studies Brain CT 03/15/23 09:52 IMPRESSION: Chronic involutional changes of the brain. N.B. : The above Results were Read Back by Perfecto Brice MD to Dr Emmanuel MD, and understanding confirmed on 03/15/2023 10:16:47 (ET). Electronically Signed: Perfecto Brice MD at 10:17 EDT , Head/Neck CTA 03/15/23 09:53 IMPRESSION: Minimal calcific plaque at the origin of the right internal carotid artery causing less than 50% narrowing. N.B. : The above Results were Read Back by Perfecto Brice MD to Dr Emmanuel MD, and understanding confirmed on 03/15/2023 10:33:02 (ET). Electronically Signed: Perfecto Brice MD at 10:34 EDT , ADDENDUM: 03/15/23 1041 IMPRESSION: Minimal calcific plaque at the origin of the right internal carotid artery causing less than 50% narrowing. N.B. : The above Results were Read Back by Perfecto Brice MD to Dr Emmanuel MD, and understanding confirmed on 03/15/2023 10:33:02 (ET). Electronically Signed: Perfecto Brice MD at 10:34 EDT , Chest X-Ray 03/15/23 11:00 IMPRESSION: Stable examination. No acute abnormality is seen. Electronically Signed: Perfecto Brice MD at 11:15 EDT , Discharge Plan Dx/Rx/DC Orders Clinical Impression: Left-sided weakness, Essential hypertension, Confusion, ESRD on hemodialysis Disposition Disposition: Acute Care Hospital [facility] What to do if you have Problems For any increased pain, shortness of breath, bleeding, nausea or vomiting, chestpain, or any unexpected problems, contact your Primary Care Provider. Call [facility] ([phone]) or report to the closest Emergency Room. Call 911 if necessary. 03/15/23 1159 <Electronically signed by Jey Benitez MD> Cosigner Signature (if applicable): CC: Dr. Wayne Leahy MD ~ Signed [facility] Work Phone: [phone] 765-777707-16-2023 History and physical note Author John Lutz [facility] December 05, 2022 2:28pm Note Date/Time December 05, 2022 2:28 pm [facility] Medical Records Department [address] [place] [address] H&P Exam - Hospitalist 12/05/22 1406 MR#: [id number] Acct: [id number] Name: LUCASNICOLE L Rep #:[id number] : 1935 87 From: John Lutz MD PCP: Dr. Wayne Leahy MD Status:ADM I NO Location: [address] [facility] - General General Date of Service: 12/05/22 Chief Complaint: Slurred speech and gait difficulty [facility] Narrative NICOLE SALVADOR, is a 87 F who presents with slurred speech and gait difficulty. Patient has past medical history is known for ischemic CVA with previous administration of tPA in June 2022 who presented with slurred speech was not checked. Patient's daughter noticed patient was less responsive than her usual self. Patient was also noted to have some difficulty with his speech as well asusing her walker. Was brought to the emergency department subsequently. Initial head CT obtained was negative for acute CVA [facility] patient was subsequently admitted to a monitored bed for further evaluation in the hospital [facility] Medical History Acute respiratory failure with hypoxia Anemia Asthma Cerebellar infarct Chronic diastolic (congestive) heart failure Chronic kidney disease (CKD) stage G5/A1, glomerular filtration rate (GFR) less than or equal to 15 mL/min/1.73 square meter and albuminuria creatinine ratio less than 30 mg/g Chronic renal failure, stage 5 Cough Dementia Elevated troponin I level End-stage renal disease (ESRD) Essential hypertension Glaucoma History of CVA (cerebrovascular accident) (12/15/19) Hyperlipidemia Iron deficiency anemia Iron deficiency anemia Metabolic acidosis Obesity (BMI 30.0-34.9) Problem with dialysis access Problem with dialysis access RENAL FAILURE STAGE 6 Respiratory failure with hypoxia Shortness of breath Speech apraxia Home Medications timolol maleate 0.5 % eye drops 1 drp EACH EYE BID GLAUCOMA 11/26/15 [History Last Taken 07/17/22] calcium acetate(phosphat bind) 667 mg capsule 1,334 mg PO TIDCM RENAL DIALYSIS 07/14/19 [History Last Taken 07/17/22] levothyroxine 100 mcg tablet 100 mcg PO DAILY 07/31/19 [History Last Taken 07/17/22] isosorbide mononitrate 60 mg tablet,extended release 24 hr 60 mg PO SUMOWEFR HTN10/26/19 [History Last Taken 07/16/22] latanoprost 0.005 % eye drops 1 drp RIGHT EYE QHS GLAUCOMA 10/26/19 [History Last Taken 07/16/22] handicap placcard See Rx Instructions .Route .COMPLEX #1 ea 03/12/20 [Rx Last Taken Unknown] nifedipine 60 mg tablet,extended release 60 mg PO DAILY BLOOD PRESSURE 05/12/21 [History Last Taken 07/17/22] albuterol sulfate 90 mcg/actuation aerosol inhaler 2 inh inhalation Q4H PRN Shortness Of Breath 07/17/22 [History Last Taken Unknown] aspirin 81 mg tablet,delayed release 81 mg PO DAILY HEART HEALTH 07/17/22 [History Last Taken 07/17/22] atorvastatin 20 mg tablet 20 mg PO DAILY CHOLESTEROL 07/17/22 [History Last Taken 07/16/22 20:00] budesonide-formoterol HFA 160 mcg-4.5 mcg/actuation aerosol inhaler 1 inh inhalation QHS SHORTNESS OF BREATH 07/17/22 [History Last Taken 07/16/22] dextran 70-hypromellose 0.1 %-0.3 % eye drops 1 drp ophthalmic (eye) QHS 07/17/22 [History Last Taken 07/16/22] hydrocortisone probutate 0.1 % topical cream (Pandel) 1 applic topical Q12H PRN RASH/ITCHING 07/17/22 [History Last Taken Unknown] lidocaine-prilocaine 2.5 %-2.5 % topical cream 1 applic topical [facility] 07/17/22 [History Last Taken 07/17/22] nutritional supplements 237 ml PO UD SUPPLEMENT 07/17/22 [History Last Taken 07/17/22] vitamin B complex and vitamin C no.20-folic acid 1 mg capsule 1 cap PO DAILY 07/17/22 [History Last Taken 07/17/22] Allergy/AdvReac Type Severity Reaction Status Date / Time erythromycin base Allergy Rash Verified 08/16/22 13:13 lisinopril Allergy Unknown Verified 08/16/22 13:13 NSAIDS (Non-Steroidal Allergy Other Verified 08/16/22 13:13 Anti-Inflamma Salicylates Allergy Other Verified 08/16/22 13:13 Family History Mother Colon cancer Hypertension Father Hypertension Surgical History History of loop recorder (07/20/19) Hx of cataract extraction Hx of foot surgery Hx of hysterectomy Hx of thyroidectomy s/p left AV fistula creation (02/19/19) Social History Smoking Status: Never smoker alcohol intake: never substance use type: does not use caffeine: Yes what type of physical activity do you participate in: none frequency: does not exercise ROS ROS Narrative GENERAL: denies fever, chills, night sweats, weight loss, anorexia HEENT: denies headache, sinus congestion, or drainage, dysphagia RESPIRATORY: denies cough, sputum production, shortness of breath, dyspnea on exertion CARDIAC: denies chest pain, palpitations, orthopnea, PND GASTROINTESTINAL: denies abdominal pain, nausea, vomiting, melena, GENITOURINARY: denies dysuria, urgency, frequency, heamaturia EXTREMITY: denies swelling MUSCULOSKELETAL: denies current joint pain or tenderness NEUROLOGIC: Slurred speech HEMATOLOGIC: denies easy bruising and/or hemorrhage INTEGUMENT: denies rashes PSYCHIATRIC: denies suicidal or homicidal ideation Vital Signs Vital Signs Vital Signs: 12/05/22 12:33 12/05/22 12:32 12/05/22 12:44 Temperature 98.6 F Temperature Source Temporal Pulse Rate 79 79 Respiratory Rate 16 16 Blood Pressure 130/60 H 130/60 H Blood Pressure Mean 83 83 Pulse Ox 96 96 Oxygen Delivery Method Room Air Room Air 12/05/22 12:48 12/05/22 12:45 12/05/22 13:07 Temperature Temperature Source Pulse Rate 76 79 Respiratory Rate 13 16 Blood Pressure 135/61 H 130/60 H Blood Pressure Mean 85 83 Pulse Ox 96 96 Oxygen Delivery Method Room Air Room Air Room Air 12/05/22 13:03 12/05/22 13:30 12/05/22 13:58 Temperature 98.6 F Temperature Source Temporal Pulse Rate 79 80 80 Respiratory Rate 16 14 14 Blood Pressure 137/65 H 140/60 H 140/60 H Blood Pressure Mean 89 86 86 Pulse Ox 96 97 96 Oxygen Delivery Method Room Air Room Air Room Air Weight Weight: 68.5 kg Body Mass Index (BMI) 25.9 Physical Exam Narrative GENERAL: cooperative HEENT: Atraumatic; normocephalic EYES; Anicteric, Normal Conjunctiva NECK; supple, normal thyroid, RESPIRATORY: Diminished to auscultation CARDIOVASCULAR: Regular S1 S2, GI: soft, normoactive bowel sounds, : No Renal angle tenderness; EXTREMITIES: No edema, no clubbing, MUSCULOSKELETAL: no muscle wasting NEURO: Awake; no lateralizing signs but dysarthric SKIN: No Rash PSYCH; Flat affect Results Lab / Micro Data 12/05/22 12:37 12/05/22 12:37 Labs: Laboratory Results - last 24 hr 12/05/22 12:31: POC Glucose 85 12/05/22 12:37: WBC 6.5, RBC 3.80 L, Hgb 10.8 L, Hct 35.1 L, MCV 92.4, MCH 28.4,MCHC 30.8 L, RDW Std Deviation 54.4 H, RDW Coeff of Lizett 16.0 H, Plt Count 121 L,MPV 12.9 H, Immature Gran % (Auto) 0.300, Neut % (Auto) 47.1, Lymph % (Auto) 37.2, Pender % (Auto) 10.6 H, Eos % (Auto) 3.4, Baso % (Auto) 1.4 H, Absolute Neuts (auto) 3.1, Absolute Lymphs (auto) 2.42, Nucleated RBC % 0, PT 13.1, INR 1.0, APTT 31.5, Sodium 140, Potassium 3.8, Chloride 102, Carbon Dioxide 33.0 H, Anion Gap 5, BUN 47 H, Creatinine 6.91 H, Estim Creat Clear Calc 5.05, Est GFR (MDRD) Af Amer 7 L, Est GFR (MDRD) Non-Af 6 L, BUN/Creatinine Ratio 6.8 L, Glucose 85, Calcium 8.7, Troponin I High Sens 56 H Radiology Impression Brain CT 12/05/22 12:35 IMPRESSION: 1. No acute intracranial abnormality. 2. Stable chronic ischemic changes. 3. Aspect score 10. N.B. : The above Results were Read Back by Andres Castillo MD to Jey Benitez MD, and understanding confirmed on 12/05/2022 12:53:55 (ET). Electronically Signed: Andres Castillo MD at 12:54 EDT , ADDENDUM: 12/05/22 1301 IMPRESSION: 1. No acute intracranial abnormality. 2. Stable chronic ischemic changes. 3. Aspect score 10. N.B. : The above Results were Read Back by Andres Castillo MD to Jey Benitez MD, and understanding confirmed on 12/05/2022 12:53:55 (ET). Electronically Signed: Andres Castillo MD at 12:54 EDT , Head/Neck CTA 12/05/22 12:35 IMPRESSION: No acute arterial occlusion, significant stenosis or intracranial aneurysm. No interval change. N.B. : The above Results were Read Back by Andres Castillo MD to Jey Benitez MD, and understanding confirmed on 12/05/2022 13:19:43 (ET). Electronically Signed: Andres Castillo MD at 13:30 EDT , ADDENDUM: 12/05/22 1337 IMPRESSION: No acute arterial occlusion, significant stenosis or intracranial aneurysm. No interval change. N.B. : The above Results were Read Back by Andres Castillo MD to Jey Benitez MD, and understanding confirmed on 12/05/2022 13:19:43 (ET). Electronically Signed: Andres Castillo MD at 13:30 EDT , Chest X-Ray 12/05/22 13:08 IMPRESSION: Mild CHF. Stable 2.6 cm right lower lobe pulmonary nodule. Electronically Signed: Andres Castillo MD at 13:53 EDT , Assessment & Plan Assessment/Plan (1) TIA (transient ischemic attack): PLAN: Plan Patient is an 87-year-old lady presenting with dysarthria as well as gait difficulty 1. TIA ? In a patient with previous ischemic CVA for which she did receive tPA. CT angio of the head and neck obtained on admission did not show any large vessel occlusion. Subsequently admitted to a monitored bed for further eval. Patient is already on antiplatelet therapy with aspirin added Plavix. Ordered MRI of the head and neck as well as 2D echo. Also ordered speech physical and occupational therapy 2. End-stage renal disease ? On hemodialysis on Tuesdays and Saturdays consult placed to patient's business development analyst Dr. Patrick Case already discussed with 3. Hypertension - Blood pressure controlled, home medications continued with dose adjustment as needed 4. Dyslipidemia -Patient is on statin therapy, continued at home dose 5. Anemia - Secondary to chronic disorder monitoring H&H and transfuse if patient becomes symptomatic or hemoglobin falls below 7 6. Chronic congestive heart failure with preserved ejection fraction ? Currently compensated 7. Overlap syndrome with COPD and asthma ? Budesonide as well as albuterol as needed did continue 8. Glaucoma ? Did continue patient home meds 9. Hypothyroidism - Patient is on levothyroxine home dose continued 10. DVT prophylaxis ? SC heparin Time spent in the patient's overall evaluation,decision-making process, review of diagnostic data, adjustment of management, discussion with other providers, nursing nursing and ancillary staff involved in patient's care documentation, 75Minutes Advance planning; did discuss with the patient and family regarding advanced directives as well as CODE STATUS. Did explain the various scenarios involved (FULL CODE, DNR CCA, DNR CCA with no intubation, and DNR CC and what each meant) patient and family elected to remain full code with CPR and intubation if needed. Order was placed. Time spent on discussion 18 minutes. Charges/Coding Visit Charges Inpatient E&M: 53789 Init Hosp L3 Procedures Hospitalists Procedures: 52811 Advncd Care Plan 30 Min 12/05/22 4768 <Electronically signed by John Lutz MD> Cosigner Signature (if applicable): CC: Dr. John Lutz MD; Dr. Wayne Leahy MD~ Signed [facility] Work Phone: [phone]) 441-726307-16-2023 Discharge summary Author Jey Benitez [facility] December 05, 2022 1:58pm Note Date/Time December 05, 2022 12:5 1pm [facility] Medical Records Department [address] [place] [address] Emergency Department Summary 12/05/22 MR#: [id number] Acct: [id number] Name: NICOLE SALVADOR Rep #:[id number] : 1935 87 From: Jey Benitez MD PCP: Dr. Wayne Leahy MD Status:REG E R Location: ED HPI History of Present Illness Chief Complaint: Stroke Alert Narrative Narrative: 87-year-old female past medical history of end-stage renal disease, hypertension, presents with her daughter because at anabaptism, she became unresponsive. She became more confused and was slurring her speech. She was having difficulty talking. Patient denies that she is in any pain. No headache, no other symptoms. According to her EMR, she has history of TIA and CVA, but daughter states that she is not taking any blood thinners currently. She thinks that they may have had her stop taking a baby aspirin. She presents because of the confusion and difficulty with speech. She does have history of dementia. Stroke team was called from triage because of the dysarthria. [facility] Medical History Acute respiratory failure with hypoxia Anemia Asthma Cerebellar infarct Chronic diastolic (congestive) heart failure Chronic kidney disease (CKD) stage G5/A1, glomerular filtration rate (GFR) less than or equal to 15 mL/min/1.73 square meter and albuminuria creatinine ratio less than 30 mg/g Chronic renal failure, stage 5 Cough Dementia Elevated troponin I level End-stage renal disease (ESRD) Essential hypertension Glaucoma History of CVA (cerebrovascular accident) (12/15/19) Hyperlipidemia Iron deficiency anemia Iron deficiency anemia Metabolic acidosis Obesity (BMI 30.0-34.9) Problem with dialysis access Problem with dialysis access RENAL FAILURE STAGE 6 Respiratory failure with hypoxia Shortness of breath Speech apraxia Home Medications timolol maleate 0.5 % eye drops 1 drp EACH EYE BID GLAUCOMA 11/26/15 [History Last Taken 07/17/22] calcium acetate(phosphat bind) 667 mg capsule 1,334 mg PO TIDCM RENAL DIALYSIS 07/14/19 [History Last Taken 07/17/22] levothyroxine 100 mcg tablet 100 mcg PO DAILY 07/31/19 [History Last Taken 07/17/22] isosorbide mononitrate 60 mg tablet,extended release 24 hr 60 mg PO SUMOWEFR HTN10/26/19 [History Last Taken 07/16/22] latanoprost 0.005 % eye drops 1 drp RIGHT EYE QHS GLAUCOMA 10/26/19 [History Last Taken 07/16/22] handicap placcard See Rx Instructions .Route .COMPLEX #1 ea 03/12/20 [Rx Last Taken Unknown] nifedipine 60 mg tablet,extended release 60 mg PO DAILY BLOOD PRESSURE 05/12/21 [History Last Taken 07/17/22] albuterol sulfate 90 mcg/actuation aerosol inhaler 2 inh inhalation Q4H PRN Shortness Of Breath 07/17/22 [History Last Taken Unknown] aspirin 81 mg tablet,delayed release 81 mg PO DAILY HEART HEALTH 07/17/22 [History Last Taken 07/17/22] atorvastatin 20 mg tablet 20 mg PO DAILY CHOLESTEROL 07/17/22 [History Last Taken 07/16/22 20:00] budesonide-formoterol HFA 160 mcg-4.5 mcg/actuation aerosol inhaler 1 inh inhalation QHS SHORTNESS OF BREATH 07/17/22 [History Last Taken 07/16/22] dextran 70-hypromellose 0.1 %-0.3 % eye drops 1 drp ophthalmic (eye) QHS 07/17/22 [History Last Taken 07/16/22] hydrocortisone probutate 0.1 % topical cream (Pandel) 1 applic topical Q12H PRN RASH/ITCHING 07/17/22 [History Last Taken Unknown] lidocaine-prilocaine 2.5 %-2.5 % topical cream 1 applic topical TUTHSA DIALYSIS 07/17/22 [History Last Taken 07/17/22] nutritional supplements 237 ml PO UD SUPPLEMENT 07/17/22 [History Last Taken 07/17/22] vitamin B complex and vitamin C no.20-folic acid 1 mg capsule 1 cap PO DAILY 07/17/22 [History Last Taken 07/17/22] Allergy/AdvReac Type Severity Reaction Status Date / Time erythromycin base Allergy Rash Verified 08/16/22 13:13 lisinopril Allergy Unknown Verified 08/16/22 13:13 NSAIDS (Non-Steroidal Allergy Other Verified 08/16/22 13:13 Anti-Inflamma Salicylates Allergy Other Verified 08/16/22 13:13 Family History Mother Colon cancer Hypertension Father Hypertension Surgical History History of loop recorder (07/20/19) Hx of cataract extraction Hx of foot surgery Hx of hysterectomy Hx of thyroidectomy s/p left AV fistula creation (02/19/19) Social History Smoking Status: Never smoker alcohol intake: never substance use type: does not use caffeine: Yes what type of physical activity do you participate in: none frequency: does not exercise ROS ROS ED ROS Narrative Constitutional: No fever, no chills. HEENT: No sore throat. No neck pain. No loss of vision. No rhinorrhea. Cardiovascular: No chest pain. No palpitations. No pedal edema. Respiratory: No cough, no shortness of breath. Abdominal: No abdominal pain. No nausea. No vomiting. Genitourinary: No dysuria. No hematuria. Musculoskeletal: No myalgias. No arthralgias. Neurologic: No headaches. No dizziness. No lightheadedness. Positive confusion and difficulty with speech, slurred speech and difficulty talking. Skin: No rash. No change in color. Psychiatric: No depression. No anxiety. EXAM Physical Exam Narrative Exam Narrative: Afebrile. Vital signs noted. HEENT: Normocephalic. Atraumatic. PERRL, EOMI. Neck soft and supple. No pointtenderness or step off. Cardiovascular: Regular rate and rhythm. No murmurs, rubs, or gallops appreciated. Respiratory: No tachypnea. Lungs clear to auscultation bilaterally. Gastrointestinal: Abdomen soft, nontender, with normoactive bowel sounds. No rebound or guarding. Neurological: Awake. Alert. Nonfocal, nonlateralizing. Initial NIH stroke scaleis 4 for mild dysarthria and very mild aphasia. Additionally, she does not knowher age or what month it is so she had level of conscious answers that were incorrect, and her daughter states she usually knows these things. Skin: No rash. Normal color. No pallor. Musculoskeletal: No pedal edema. Full range of motion extremities. Const Vital Signs: 12/05/22 12:33 12/05/22 12:32 12/05/22 12:44 Temperature 98.6 F Temperature Source Temporal Pulse Rate 79 79 Respiratory Rate 16 16 Blood Pressure 130/60 H 130/60 H Blood Pressure Mean 83 83 Pulse Ox 96 96 Oxygen Delivery Method Room Air Room Air 12/05/22 12:48 12/05/22 12:45 12/05/22 13:07 Temperature Temperature Source Pulse Rate 76 79 Respiratory Rate 13 16 Blood Pressure 135/61 H 130/60 H Blood Pressure Mean 85 83 Pulse Ox 96 96 Oxygen Delivery Method Room Air Room Air Room Air 12/05/22 13:03 Temperature Temperature Source Pulse Rate 79 Respiratory Rate 16 Blood Pressure 137/65 H Blood Pressure Mean 89 Pulse Ox 96 Oxygen Delivery Method Room Air NIHSS NIHSS Slurred speech: 1a Level of Consciousness: 0 1b LOC Questions (Score 2 if aphasic/stupor): 2 1c LOC Commands (Only score 1st attempt): 0 2 Best Gaze (If aphasic, use reflexive mvmts.): 0 3 Visual: 0 4 Facial Palsy: 0 5 Motor Arm Right (UN = amputation/fusion): 0 5 Motor Arm Left: 0 6 Motor Leg Right: 0 6 Motor Leg Left: 0 7 Limb ataxia (Only + if out of proportion): 0 8 Sensory (Aphasia/stupor=0 or 1, coma=2): 0 9 Best Language: 1 10 Dysarthria (mute, coma=2, intubated=UN): 1 11 Extinction and Inattention (only scored if +): 0 Total Score: 4 MDM MDM MDM Narrative Medical decision making narrative: Stroke team was activated from triage. I reviewed her prior records. She does have history of TIA in 2021, and had a CVA in 2019. Additionally, in review of her records, I had seen her for left arm weakness and facial droop with slurred speech in June. She had received tPA at that time. I interpreted the patient's chest x-ray in 1 view independently and see mild CHF, but no evidence of an acute consolidation or pneumothorax. I reviewed the radiology report which confirms my independent interpretation and also comments on a stable pulmonary nodule. I reviewed the patient's laboratory work, she hasa normal white count of 6.5, hemoglobin stable at 10.8, hematocrit 35.1, platelet count slightly low at 121. This is a chronic thrombocytopenia. BMP was reviewed and is grossly unremarkable with the exception of creatinine of 6.91 consistent with her end- stage renal disease, BUN elevated at 47, almost chronically. Sodium is normal at 140 with potassium also normal at 3.8 with chloride 102. Glucose is 85 on her BMP with a normal anion gap of 5. Although her high-sensitivity troponin is elevated at 56, I think this is secondary to her end-stage renal disease and elevated creatinine. I received a call from theradiologist regarding the CT of the brain which shows no evidence of an acute hemorrhage. I also received a call from him regarding the CTA of the head and neck. There is no large vessel occlusion in the cerebral arteries. The left vertebral artery tapers off, but this may be a chronic finding according to radiology. I also discussed the patient with the stroke neurologist who is not recommendingtPA as during his examination her symptoms were improving and she did well with object naming as she had with my examination. He was getting an NIH stroke scale of 1 or 2. She does not have a debilitating deficit. At this point in time, patient will be discussed with the hospitalist for admission for MRI and further work-up of her stroke/TIA. I discussed the patient with Dr. John Lutz for observation in the PCU. She is in stable condition. History & Record Review Discussion w/independent historian: Patient and Family Additional record(s) reviewed:: Prior ED visit and Prior labs Lab Data Attestation: I reviewed the patient's lab results. Labs: Laboratory Results - last 24 hr 12/05/22 12/05/22 12:31 12:37 WBC 6.5 RBC 3.80 L Hgb 10.8 L Hct 35.1 L MCV 92.4 MCH 28.4 MCHC 30.8 L RDW Std Deviation 54.4 H RDW Coeff of Lizett 16.0 H Plt Count 121 L MPV 12.9 H Immature Gran % (Auto) 0.300 Neut % (Auto) 47.1 Lymph % (Auto) 37.2 Pender % (Auto) 10.6 H Eos % (Auto) 3.4 Baso % (Auto) 1.4 H Absolute Neuts (auto) 3.1 Absolute Lymphs (auto) 2.42 Nucleated RBC % 0 PT 13.1 INR 1.0 APTT 31.5 Sodium 140 Potassium 3.8 Chloride 102 Carbon Dioxide 33.0 H Anion Gap 5 BUN 47 H Creatinine 6.91 H Estim Creat Clear Calc 5.05 Est GFR (MDRD) Af Amer 7 L Est GFR (MDRD) Non-Af 6 L BUN/Creatinine Ratio 6.8 L Glucose 85 Calcium 8.7 Troponin I High Sens 56 H POC Glucose 85 Radiography Diagnostic Testing: Clinical Impression(s) from Imaging Studies Brain CT 12/05/22 12:35 IMPRESSION: 1. No acute intracranial abnormality. 2. Stable chronic ischemic changes. 3. Aspect score 10. N.B. : The above Results were Read Back by Andres Castillo MD to Jey Benitez MD, and understanding confirmed on 12/05/2022 12:53:55 (ET). Electronically Signed: Andres Castillo MD at 12:54 EDT Reading Location ID and State: [facility] / [place] Tel , Service support , ADDENDUM: 12/05/22 1301 IMPRESSION: 1. No acute intracranial abnormality. 2. Stable chronic ischemic changes. 3. Aspect score 10. N.B. : The above Results were Read Back by Andres Castillo MD to Jey Benitez MD, and understanding confirmed on 12/05/2022 12:53:55 (ET). Electronically Signed: Andres Castillo MD at 12:54 EDT , Head/Neck CTA 12/05/22 12:35 IMPRESSION: No acute arterial occlusion, significant stenosis or intracranial aneurysm. No interval change. N.B. : The above Results were Read Back by Andres Castillo MD to Jye Benitez MD, and understanding confirmed on 12/05/2022 13:19:43 (ET). Electronically Signed: Andres Castillo MD at 13:30 EDT , ADDENDUM: 12/05/22 1337 IMPRESSION: No acute arterial occlusion, significant stenosis or intracranial aneurysm. No interval change. N.B. : The above Results were Read Back by Andres Castillo MD to Jey Benitez MD, and understanding confirmed on 12/05/2022 13:19:43 (ET). Electronically Signed: Andres Castillo MD at 13:30 EDT , Chest X-Ray 12/05/22 13:08 IMPRESSION: Mild CHF. Stable 2.6 cm right lower lobe pulmonary nodule. Electronically Signed: Andres Castillo MD at 13:53 EDT , Stroke Documentation Questions Stroke Team Activated: Yes Reviewed Inclusion/Exclusion criteria: Yes Was Patient considered for Endovascular Intervention?: No-CTA negative, determined not to be an endovascular candidate IV Thrombolytic Administered: No (Rapidly improving symptoms, non-debilitating in discussion with neurology) No contraindications from thrombolytic administration: No Risks, Benefits, Alternatives Discussed: Yes Not given: Patient refusal: No Discharge Plan Dx/Rx/DC Orders Clinical Impression: Slurred speech, Confusion, Dementia, TIA (transient ischemic attack), End- stagerenal disease (ESRD) Disposition Disposition: Acute Care Hospital [facility] What to do if you have Problems For any increased pain, shortness of breath, bleeding, nausea or vomiting, chestpain, or any unexpected problems, contact your Primary Care Provider. Call [facility] ([phone]) or report to the closest Emergency Room. Call 911 if necessary. 12/05/22 1358 <Electronically signed by Jey Benitez MD> Cosigner Signature (if applicable): CC: Dr. Wayne Leahy MD ~ Signed [facility] Work Phone: [phone] 136-985402-27-[address] Feliciano [facility] July 19, 2022 2:08pm Note Date/Time July 19, 2022 2:03pm [facility] Medical Records Department [address] [place] [address] Transfer to [facility] MR#: [id number] Acct: [id number] Name: NICOLE SALVADOR Rep #:[id number] : 1935 87 From: Micha newton MD PCP: Dr. Wayne Leahy MD Status:ADM I N Certification of patient admission REQUIRED AT TIME OF ADMISSION. I CERTIFY THAT POST-HOSPITAL ECF SERVICES ARE REQUIRED TO BE GIVEN ON AN IN-PATIENT BASIS BECAUSE OF THE ABOVE NAMED PATIENT'S NEED FOR LONG TERM CARE ON A CONTINUING BASIS FOR THE CONDITION(S) FOR WHICH HE/SHE WAS RECEIVING IN-PATIENT HOSPITAL SERVICES PRIOR TO HIS/HER TRANSFER TO THE ECF. 07/19/22 1408<Electronically signed by Micha Feliciano MD> Diet Diet Order/Speech Therapy: 07/19/22 11:58 Diet: Cardiac - Heart Healthy Dietary Modifications:: Cardiac / Heart Healthy Sodium Restricted Is pt able to select menu?: No Routine Orders/Code Status Routine Lab Work: CBC and BMP Code Status: Full Code Therapies Physical Therapy: Eval and Treat Occupational Therapy: Eval and Treat Problem/Diagnosis (1) ESRD (end stage renal disease) on dialysis: Status: Acute Code(s): N18.6 - End stage renal disease; Z99.2 - Dependence on renal dialysis (2) Stroke: Status: Acute Code(s): I63.9 - Cerebral infarction, unspecified (3) Dementia: Status: Chronic Code(s): F03.90 - Unspecified dementia, unspecified severity, without behavioral disturbance, psychotic disturbance, mood disturbance, and anxiety (4) Hyperlipidemia: Status: Chronic Code(s): E78.5 - Hyperlipidemia, unspecified (5) Hypertension: Status: Chronic Code(s): I10 - Essential (primary) hypertension (6) Anemia: Status: Acute Code(s): D64.9 - Anemia, unspecified Allergies/Procedures Done in Hospital Allergies erythromycin base Allergy (Verified 05/12/21 14:42) Rash lisinopril Allergy (Verified 05/12/21 14:42) Unknown NSAIDS (Non-Steroidal Anti-Inflamma Allergy (Verified 05/12/21 14:42) Other Salicylates Allergy (Verified 05/12/21 14:42) Other PROTEIN IN URINE DRUG Allergy (Uncoded 05/06/21 12:21) Other Procedures: Electroencephalogram Type of Care/Length of Stay Estimated LOS: Convalescent Care Less Than 30 days Type of Care Needed: Skilled Rehab Potential: Good Prognosis: Good Additional Orders/Day of Discharge Day of Discharge: 07/19/22 Dietary and Speech Recommendations Dietitian Recommendations/Changes: Continue Cardiac, Renal diet to manage medical conditions. Speech Linguistic Eval Summary: Orientation: 10/30. Not oriented to GALLO, , day Namin/10 (unable to name phone, computer, and clipboard) Divergent: - animal: 5, increased to 8 with mod cues - M: 9 preservation noted on both tasks Following Directions: 2 step: 66% Reasonin/2 (which doesn't belong) Immediate Recall: 0/3 Delayed Recall: 1/3, increased to 3/3 with mod cues. Trial 2: 0/3 Repetition of sentences: 80% acc Automatics: 3/3 with mod to max cues to understand task Opposites: 4/4 with mod to max cues to understand task Function of objects: 4/4 Digit Span: 0/3 Pt did not recognize which daughter came to visit. Pt with random, socially inappropriate comments throughout the exam and required mod redirection to tasks. Discharge Plan Admission Admit Date/Time: 07/17/22 12:29 Attending Provider: Micha Feliciano Primary Care Provider: Wayne Leahy [employer] Providers: Kianna Patrick ; Michel Lee ; Lonny Joseph ; Darnell García ; Esteban Waddell ; Mounika Mayes BOOKING CLERK ; Melody Patrick Discharge Orders/Prescriptions Prescriptions: Continued levothyroxine 100 mcg tablet 100 mcg PO DAILY handicap placcard See Rx Instructions .ROUTE .COMPLEX Qty: 1 0RF Rx Instructions: Duration: lifetime Diagnosis: CVA, debility nifedipine 60 mg tablet extended release 60 mg PO DAILY timolol maleate 1 DROP drops 1 drp EACH EYE BID calcium acetate(phosphat bind) 667 MG capsule 1,334 mg PO TIDCM latanoprost 1 DROP bottle 1 drp RIGHT EYE QHS isosorbide mononitrate 60 MG tablet 60 mg PO SUMOWEFR atorvastatin 20 mg Tablet 20 mg PO DAILY nutritional supplements Liquid 237 ml PO UD Pandel 0.1 % Cream 1 applic TOPICAL Q12H PRN (Reason: RASH/ITCHING) lidocaine-prilocaine 2.5-2.5 % Cream 1 applic topical TUTHSA B complex with C 20-folic acid 1 mg Capsule 1 cap PO DAILY albuterol sulfate 90 mcg/actuation HFA aerosol inhaler 2 inh INHALATION Q4H PRN (Reason: Shortness Of Breath) budesonide-formoterol 160-4.5 mcg/actuation Hfa Aerosol Inhaler 1 inh INHALATION QHS budesonide-formoterol 160-4.5 mcg/actuation Hfa Aerosol Inhaler 1 inh INHALATION DAILY dextran 70-hypromellose 0.1-0.3 % Drops 1 drp ophthalmic (eye) QHS dextran 70-hypromellose 0.1-0.3 % Drops 1 drp OPHTHALMIC (EYE) DAILY aspirin 81 MG tablet,delayed release (DR/EC) 81 mg PO DAILY Referrals / Follow Up: Wayne Leahy Chi, MD [Primary Care Provider] - Disposition Disposition (needs filled in before D/C Order can be placed): [facility]f Facility 07/19/22 1408 <Electronically signed by Micha Feliciano MD> Cosigner Signature (if applicable): CC: TOM Mayes; Dr. Michel Lee MD; Dr. Kianna Patrick DO; Dr. Lonny Joseph DO; Dr. Melody Patrick DO; Dr. Darnell García MD; Dr. Wayne Leahy MD; Dr. Esteban Waddell MD ~ [facility] Work Phone: [phone]) 311-390202-27-[address] Lee [facility] July 19, 2022 3:46pm Note Date/Time July 19, 2022 7:48am [facility] Medical Records Department [address] [place] [address] Progress Note - Director Mortgage 07/19/22 0744 MR#: [id number] Acct: [id number] Name: NICOLE SALVADOR Rep #:[id number] : 1935 87 From: Michel Lee MD PCP: Dr. Wayne Leahy MD Status:ADM I N Location: ICU ICU01-1 Assessment & Plan Assessment/Plan (1) Stroke: PLAN: Plan RECOMMENDATIONS: 1. Await EEG 2. Obtain echocardiogram per CVA protocol 3. PT/OT evaluations once cleared on repeat head imaging. 4. Continue current blood pressure medications 5. Hemodynamically stable on room air. Will sign off from a critical care perspective 6. Okay to leave the intensive care unit from my perspective IMPRESSIONS: 1. Acute CVA status post tenecteplase The patient presented from her dialysis center with left-sided weakness, facial droop and dysarthria. She was felt to be a candidate for tenecteplase, which was administered. The patient's neurologic symptoms have improved. Accordingly, the patient was maintained and monitored in the ICU per protocol for 24 hours. However, MRI does not show any active infarct. Some concern for possible Rowdy's paralysis. EEG has been ordered. PT OT okay to evaluate from my perspective. Given stable neurologic and hemodynamic status, will sign off from a critical care perspective 2. End-stage renal disease on hemodialysis Ongoing dialysis support per nephrology recommendations. 3. Prior history of CVA/hypertension/hyperlipidemia/heart failure with preserved ejection fraction/asthma Complicates care, management, recovery and prognosis. Continue home medications as indicated. This note was generated with [employer] dictation software. It may contain incorrectwords, spelling, and punctuation that were not noted in checking the note beforesigning. Subjective Subjective Patient did well overnight. No hemodynamic concerns were reported. Patient's NIH remains at 2. Patient did have an MRI overnight that showed only involutional changes with no CVA. Patient subsequently had an EEG at 630 this morning, but results are still pending. Objective Data Objective Data Vital Signs: Vital Signs Temp Pulse Resp BP Pulse Ox O2 Del Method 36.5 C L 81 18 135/61 H 95 Room Air 07/19/22 05:07 07/19/22 07:28 07/19/22 07:28 07/19/22 05:07 07/19/22 07:28 07/19/22 07:28 Oxygen Delivery Method Room Air Weight: 71.8 kg Body Mass Index (BMI) 27.1 Intake & Output: Intake and Output for Last 24 Hours 07/17/22 07/18/22 07/19/22 23:59 23:59 23:59 Intake Total 1150 / 1150 120 / 120 Output Total 0 / 0 0 / 0 300 / 300 Balance 1150 / 1150 120 / 120 -300 / -300 Lab / Micro Data Attestation: I reviewed the patient's lab results. Result Diagrams: 07/19/22 04:50 07/19/22 04:50 Labs: Laboratory Results - last 24 hr 07/19/22 04:50: WBC 7.2, RBC 3.59 L, Hgb 10.3 L, Hct 32.2 L, MCV 89.7, MCH 28.7,MCHC 32.0, RDW Std Deviation 46.8 H, RDW Coeff of Lizett 14.3, Plt Count 146 L, MPV10.6, Immature Gran % (Auto) 0.300, Neut % (Auto) 46.5 L, Lymph % (Auto) 37.4, Pender % (Auto) 10.2 H, Eos % (Auto) 4.3, Baso % (Auto) 1.3 H, Absolute Neuts (auto) 3.3, Absolute Lymphs (auto) 2.68, Nucleated RBC % 0 07/19/22 04:50: Sodium 135 L, Potassium 5.0, Chloride 96 L, Carbon Dioxide 30.0,Anion Gap 9, BUN 50 H, Creatinine 8.47 H*, Estim Creat Clear Calc 4.12, Est GFR (MDRD) Af Amer 6 L, Est GFR (MDRD) Non-Af 5 L, BUN/Creatinine Ratio 5.9 L, Glucose 80, Calcium 8.4 L, Phosphorus 6.7 H, Magnesium 2.3 Radiography Diagnostic Testing: Radiology Impression Brain MRI 07/18/22 12:33 IMPRESSION: Involutional changes of the brain, as described above. No acute infarct. Electronically Signed: Steve Pelayo MD at 14:53 EST , Physical Exam Const alert and no apparent distress Constitutional Narrative: Somewhat conversational, but slow to respond. Maintains eye contact General Appearance: cooperative HEENT normocephalic and head/scalp atraumatic Eyes PERRL, EOMs intact bilaterally and conjunctivae normal Neck supple General: trachea midline Chest inspection of chest normal Resp normal respiratory effort Auscultation: Negative for rales, rhonchi or wheezes Cardio regular rate, regular rhythm, S1 normal heart sound, S2 normal heart sound, no murmurs, no rub and no gallops GI normal to inspection, nondistended, normoactive bowel sounds Extremity no clubbing, cyanosis or edema Skin no rashes or lesions noted Neuro CN's II-XII intact bilaterally and moves all extremities Psych Mood & Affect: flat affect Charges/Coding Visit Charges Inpatient E&M: 52546 Subs Hosp L2 07/19/22 1546 <Electronically signed by Michel Lee MD> Cosigner Signature (if applicable): CC: ~ Signed [facility] Work Phone: [phone]) 822-373902-27-[address] Patrick [facility] July 19, 2022 7:25am Note Date/Time July 19, 2022 7:26am [facility] Medical Records Department [address] [place] [id number] Telemedicine Confirmation Receipt 07/19/22 MR#: [id number] Acct: [id number] Name: NICOLE SALVADOR Rep #:[id number] : 1935 87 From: Melody Patrick DO PCP: Dr. Wayne Leahy MD Status:ADM I N [facility] Telemed has confirmed receipt of a request for visit. This document confirms receipt of the order initiating the consult. To find the results of the consultation, please view the patient's reports for the scanned Telemed Consult. [facility] Work Phone: 1(503) 312-299202-26-[address] Patrick [facility] July 18, 2022 2:28pm Note Date/Time July 18, 2022 2:28pm [facility] Medical Records Department [address] [place] [address] Telemedicine Confirmation Receipt 07/18/22 MR#: [id number] Acct: [id number] Name: NICOLE SALVADOR Rep #:[id number] : 1935 87 From: Melody Patrick DO PCP: Dr. Wayne Leahy MD Status:ADM I N [facility] Telemed has confirmed receipt of a request for visit. This document confirms receipt of the order initiating the consult. To find the results of the consultation, please view the patient's reports for the scanned Telemed Consult. [facility] Work Phone: 1(481) 208-132202-26-[address] Patrick [facility] July 18, 2022 11:57am Note Date/Time July 18, 2022 11:57am [facility] Medical Records Department [address] [place] [address] Progress Note - Hospitalist 07/18/22 1148 MR#: [id number] Acct: [id number] Name: NICOLE SALVADOR Rep #:[id number] : 1935 87 From: Melody Patrick DO PCP: Dr. Wayne Leahy MD Status:ADM I N Location: ICU ICU01-1 Reason for Visit Reason for Visit: Facial weakness (07/17/22) Aphasia (07/17/22) Dysarthria and anarthria (07/17/22) Subjective Subjective No issues overnight. Patient's communication is more clear today. NIH is are down to 2 consistently mostly for speech. MRI will be done this afternoon at 24hours post tPA infusion and after dialysis needles are removed out of left upperextremity. Objective Data Objective Data Vital Signs: Vital Signs Temp Pulse Resp BP Pulse Ox O2 Del Method 98.5 F 86 26 H 136/55 H 100 Room Air 07/18/22 11:00 07/18/22 11:00 07/18/22 11:00 07/18/22 11:00 07/18/22 11:00 07/18/22 11:00 Oxygen Delivery Method Room Air Weight: 71.8 kg Body Mass Index (BMI) 27.1 Intake & Output: Intake and Output for Last 24 Hours 07/16/22 07/17/22 07/18/22 23:59 23:59 23:59 Intake Total 1150 / 1150 0 / 0 Output Total 0 / 0 0 / 0 Balance 1150 / 1150 0 / 0 Lab / Micro Data Result Diagrams: 07/18/22 05:25 07/18/22 05:25 Labs: Laboratory Results - last 24 hr 07/17/22 11:10: Hemoglobin A1c 5.2 07/18/22 05:25: WBC 6.4, RBC 3.54 L, Hgb 10.1 L, Hct 32.2 L, MCV 91.0, MCH 28.5,MCHC 31.4 L, RDW Std Deviation 47.5 H, RDW Coeff of Lizett 14.2, Plt Count 137 L, MPV 10.7, Immature Gran % (Auto) 0.300, Neut % (Auto) 48.0, Lymph % (Auto) 37.5,Pender % (Auto) 9.5, Eos % (Auto) 3.3, Baso % (Auto) 1.4 H, Absolute Neuts (auto) 3.1, Absolute Lymphs (auto) 2.40, Nucleated RBC % 0 07/18/22 05:25: Sodium 136, Potassium 4.6, Chloride 99, Carbon Dioxide 32.0, Anion Gap 5, BUN 29 H, Creatinine 6.69 H, Estim Creat Clear Calc 5.21, Est GFR (MDRD) Af Amer 8 L, Est GFR (MDRD) Non-Af 6 L, BUN/Creatinine Ratio 4.3 L, Glucose 83, Calcium 8.1 L, Phosphorus 5.6 H, Magnesium 2.1, Total Bilirubin 0.50, AST 16, ALT 13, Alkaline Phosphatase 58, Total Protein 6.1 L, Albumin 2.9 L, Globulin 3.2, Albumin/Globulin Ratio 0.9, Triglycerides 31, Cholesterol 104, LDL Cholesterol 44, VLDL Cholesterol 6, HDL Cholesterol 54, TSH 2.18 Radiography Diagnostic Testing: Radiology Impression Chest X-Ray 07/17/22 11:42 IMPRESSION: 1. No acute findings in the chest. 2. No interval change when compared to 12/15/2019. Electronically Signed: Jey Rollins MD at 12:23 EST , Physical Exam Const alert, no apparent distress and well nourished Constitutional Narrative: Elderly -[place] Citizen female, sitting up in bed watching television, appears comfortable nontoxic, still talking somewhat nonsensical but makes much more sense than she did yesterday in the emergency department. Oriented to self and place but not month or year HEENT head/scalp atraumatic and moist oral mucous membranes HEENT Narrative: Dentition is good, Mallampati is 1-2, no thrush Eyes PERRL and EOMs intact bilaterally Resp normal respiratory effort, no retractions, no use of accessory muscles and clearto auscultation bilaterally Auscultation: Negative for rales, rhonchi or wheezes Cardio regular rate, regular rhythm, S1 normal heart sound, S2 normal heart sound, no murmurs, no rub, no gallops and no clicks GI normal to inspection, nondistended, normoactive bowel sounds, soft to palpation and non-tender Extremity no clubbing, cyanosis or edema Extremity Narrative: Left upper extremity with fistula, needles in place, palpable thrill with positive bruit Neuro CN's II-XII intact bilaterally, moves all extremities and no focal motor deficits Neuro Narrative: Speech is still somewhat abnormal with intermittent expressive aphasia, receptive speech is normal and patient is following commands consistently, stillmild confusion but much improved overall Speech: Negative for speech normal Psych affect normal Psych Narrative: Very pleasant Assessment & Plan Assessment/Plan (1) Received intravenous tissue plasminogen activator (tPA) in emergency department: (2) Stroke: (3) Dysarthria: (4) Aphasia: (5) Facial droop: (6) Left-sided weakness: PLAN: Plan Ischemic stroke -Patient presented with expressive aphasia, some dysarthria, left-sided facial droop, left-sided weakness -CT of the head was negative -CTA of the head and neck with no LVO -tPA given the emergency department around 1215 -Start aspirin and DVT prophylaxis if MRI is negative for any hemorrhagic transformation -Echocardiogram--> pending should be done tomorrow morning -MRI today after 24-hour carl from tPA -Consult SOC neurology after MRI is complete -Discontinue bedrest after 24 hours out of tPA -Lipids are well controlled with a total cholesterol 104/LDL 44/HDL 54 -Hemoglobin A1c was 5.2 -PT/OT at 24 hours after tPA--> suspect they will get to her till tomorrow -Consult SOC neurology after imaging obtained -Ischemic stroke protocol in place End-stage renal disease on dialysis -Patient was at dialysis on the day of presentation -Suspect Tuesday dialysis -Continue home binders -Nephrology following consult is pending Hypertension -Restart home nifedipine for tomorrow morning -As needed medication available Hyperlipidemia -With stroke presentation we will utilize high intensity dose statin 80 mg nightly -Hold home dose 20 mg -Lipids are well controlled with a total cholesterol 104/LDL 44/HDL 54 History of stroke -No residual deficits per discussion with family -Received tPA at that time -Summer 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 anemia secondary to chronic renal disease -Hemoglobin stable -Repeat CBC in a.m. Glaucoma -Continue home eyedrops Chronic HFpEF -Diastolic in nature -Compensated -Dialysis for volume management COPD/asthma -Continue home inhalers DVT prophylaxis -SCDs -We will start chemoprophylaxis this evening as long as there is no hemorrhagic transformation on MRI CODE STATUS -Full code per discussion prior to admission with family Charges/Coding Visit Charges Inpatient E&M: 57114 Subs Hosp L2 07/18/22 1157 <Electronically signed by Melody Patrick DO> Cosigner Signature (if applicable): CC: ~ Signed [facility] Work Phone: [phone]) [phone] Joseph [facility] July 18, 2022 6:25am Note Date/Time July 18, 2022 5:42am [facility] Medical Records Department [address] [place] [address] Consultation - Director Mortgage 07/18/22 0538 MR#: [id number] Acct: [id number] Name: NICOLE SALVADOR Rep #:[id number] : 1935 87 From: Lonny Joseph DO PCP: Dr. Wayne Leahy MD Status:ADM I N Location: ICU ICU01-1 Assessment & Plan Assessment/Plan (1) Stroke: PLAN: Plan RECOMMENDATIONS: 1. Obtain repeat head imaging this afternoon per protocol. 2. Obtain echocardiogram 3. PT/OT evaluations once cleared on repeat head imaging. 4. Maintain blood pressures less than 185/110 mmHg. IMPRESSIONS: 1. Acute CVA status post tenecteplase The patient presented from her dialysis center with left-sided weakness, facial droop and dysarthria. She was felt to be a candidate for tenecteplase, which was administered. The patient's neurologic symptoms have improved. Accordingly, the patient will be maintained and monitored in the ICU per protocol. Obtain follow- up head imaging this afternoon as ordered. PT/OT evaluations once cleared on head imaging 2. End-stage renal disease on hemodialysis Ongoing dialysis support per nephrology recommendations. 3. Prior history of CVA/hypertension/hyperlipidemia/heart failure with preserved ejection fraction/asthma Complicates care, management, recovery and prognosis. Continue home medicationsas indicated. This note was generated with [employer] dictation software. It may contain incorrectwords, spelling, and punctuation that were not noted in checking the note beforesigning. HPI Consult Data Date of Consult: 07/18/22 HPI Narrative Reason for Consultation: CVA status post tenecteplase HPI Narrative: The patient is an 87-year-old female, with a history as outlined below, who presented to the emergency department on July 17 with dysarthria, left-sidedweakness and left facial droop. The patient was apparently at her routine dialysis center when she developed the aforementioned symptoms. She does have ahistory of a prior stroke sometime in 2019. The patient also has a medical history significant for hypertension and heart failure with preserved ejection fraction. She is on a regular dialysis session of Tuesday, , Tuesday. On presentation to the emergency department, the patient was noted to be afebrile hemodynamically stable. She was maintaining appropriate oxygen saturations on room air. Initial laboratory evaluation revealed no evidence of a leukocytosis. CT head revealed chronic involutional changes of the brain. CTA head and neck revealed no evidence of a large vessel occlusion. NIH score was initially 11 at presentation. Ultimately, the patient was administered tenecteplase. She was subsequently admitted to the medical intensive care unit. [facility] Medical History Acute respiratory failure with hypoxia Anemia Asthma Cerebellar infarct Chronic diastolic (congestive) heart failure Chronic kidney disease (CKD) stage G5/A1, glomerular filtration rate (GFR) less than or equal to 15 mL/min/1.73 square meter and albuminuria creatinine ratio less than 30 mg/g Chronic renal failure, stage 5 Cough Dementia Elevated troponin I level End-stage renal disease (ESRD) Essential hypertension Glaucoma History of CVA (cerebrovascular accident) (12/15/19) Hyperlipidemia Iron deficiency anemia Iron deficiency anemia Metabolic acidosis Obesity (BMI 30.0-34.9) Problem with dialysis access Problem with dialysis access RENAL FAILURE STAGE 6 Respiratory failure with hypoxia Shortness of breath Speech apraxia Home Medications timolol maleate 0.5 % eye drops 1 drp EACH EYE BID GLAUCOMA 11/26/15 [History Last Taken 07/17/22] calcium acetate(phosphat bind) 667 mg capsule 1,334 mg PO TIDCM RENAL DIALYSIS 07/14/19 [History Last Taken 07/17/22] levothyroxine 100 mcg tablet 100 mcg PO DAILY 07/31/19 [History Last Taken 07/17/22] isosorbide mononitrate 60 mg tablet,extended release 24 hr 60 mg PO SUMOWEFR HTN10/26/19 [History Last Taken 07/16/22] latanoprost 0.005 % eye drops 1 drp RIGHT EYE QHS GLAUCOMA 10/26/19 [History Last Taken 07/16/22] handicap placcard See Rx Instructions .Route .COMPLEX #1 ea 03/12/20 [Rx Last Taken Unknown] nifedipine 60 mg tablet,extended release 60 mg PO DAILY BLOOD PRESSURE 05/12/21 [History Last Taken 07/17/22] albuterol sulfate 90 mcg/actuation aerosol inhaler 2 inh inhalation Q4H PRN Shortness Of Breath 07/17/22 [History Last Taken Unknown] aspirin 81 mg tablet,delayed release 81 mg PO DAILY HEART HEALTH 07/17/22 [History Last Taken 07/17/22] atorvastatin 20 mg tablet 20 mg PO DAILY CHOLESTEROL 07/17/22 [History Last Taken 07/16/22 20:00] budesonide-formoterol HFA 160 mcg-4.5 mcg/actuation aerosol inhaler 1 inh inhalation DAILY SHORTNESS OF BREATH 07/17/22 [History Last Taken 07/17/22] budesonide-formoterol HFA 160 mcg-4.5 mcg/actuation aerosol inhaler 1 inh inhalation QHS SHORTNESS OF BREATH 07/17/22 [History Last Taken 07/16/22] dextran 70-hypromellose 0.1 %-0.3 % eye drops 1 drp ophthalmic (eye) DAILY 07/17/22 [History Last Taken 07/17/22] dextran 70-hypromellose 0.1 %-0.3 % eye drops 1 drp ophthalmic (eye) QHS 07/17/22 [History Last Taken 07/16/22] hydrocortisone probutate 0.1 % topical cream (Pandel) 1 applic topical Q12H PRN RASH/ITCHING 07/17/22 [History Last Taken Unknown] lidocaine-prilocaine 2.5 %-2.5 % topical cream 1 applic topical [facility] 07/17/22 [History Last Taken 07/17/22] nutritional supplements 237 ml PO UD SUPPLEMENT 07/17/22 [History Last Taken 07/17/22] vitamin B complex and vitamin C no.20-folic acid 1 mg capsule 1 cap PO DAILY 07/17/22 [History Last Taken 07/17/22] Allergy/AdvReac Type Severity Reaction Status Date / Time erythromycin base Allergy Rash Verified 05/12/21 14:42 lisinopril Allergy Unknown Verified 05/12/21 14:42 NSAIDS (Non-Steroidal Allergy Other Verified 05/12/21 14:42 Anti-Inflamma Salicylates Allergy Other Verified 05/12/21 14:42 PROTEIN IN URINE DRUG Allergy Other Uncoded 05/06/21 12:21 Family History Mother Colon cancer Hypertension Father Hypertension Surgical History History of loop recorder (07/20/19) Hx of cataract extraction Hx of foot surgery Hx of hysterectomy Hx of thyroidectomy s/p left AV fistula creation (02/19/19) Social History Smoking Status: Former smoker alcohol intake: never substance use type: does not use caffeine: Yes what type of physical activity do you participate in: none frequency: does not exercise ROS ROS Narrative 10 systems reviewed with pertinent positives as noted in the HPI above. Physical Exam Const alert and no apparent distress General Appearance: cooperative HEENT normocephalic and head/scalp atraumatic Eyes PERRL, EOMs intact bilaterally and conjunctivae normal Neck supple General: trachea midline Chest inspection of chest normal Resp normal respiratory effort Auscultation: Negative for rales, rhonchi or wheezes Cardio regular rate and regular rhythm GI normal to inspection, nondistended, normoactive bowel sounds Extremity no clubbing, cyanosis or edema Skin no rashes or lesions noted Neuro CN's II-XII intact bilaterally and moves all extremities Psych Mood & Affect: flat affect Lab / Micro Data Result Diagrams: 07/18/22 05:25 07/18/22 05:25 Labs: Laboratory Results - last 24 hr 07/17/22 11:10: WBC 7.2, RBC 4.15 L, Hgb 11.8 L, Hct 37.1, MCV 89.4, MCH 28.4, MCHC 31.8 L, RDW Std Deviation 46.2 H, RDW Coeff of Lizett 14.3, Plt Count 163, MPV10.8, Immature Gran % (Auto) 0.400, Neut % (Auto) 56.0, Lymph % (Auto) 29.9, Pender % (Auto) 9.1, Eos % (Auto) 3.1, Baso % (Auto) 1.5 H, Absolute Neuts (auto) 4.0, Absolute Lymphs (auto) 2.14, Nucleated RBC % 0 07/17/22 11:10: PT 12.9, INR 1.0, APTT 29.2 07/17/22 11:10: Sodium 137, Potassium 4.3, Chloride 97 L, Carbon Dioxide 34.0 H,Anion Gap 6, BUN 19 H, Creatinine 4.28 H, Estim Creat Clear Calc 8.15, Est GFR (MDRD) Af Amer 13 L, Est GFR (MDRD) Non-Af 10 L, BUN/Creatinine Ratio 4.4 L, Glucose 113 H, Calcium 8.4 L, Troponin I High Sens 37 07/17/22 11:10: Hemoglobin A1c 5.2 07/18/22 05:25: WBC 6.4, RBC 3.54 L, Hgb 10.1 L, Hct 32.2 L, MCV 91.0, MCH 28.5,MCHC 31.4 L, RDW Std Deviation 47.5 H, RDW Coeff of Lizett 14.2, Plt Count 137 L, MPV 10.7, Immature Gran % (Auto) 0.300, Neut % (Auto) 48.0, Lymph % (Auto) 37.5,Pender % (Auto) 9.5, Eos % (Auto) 3.3, Baso % (Auto) 1.4 H, Absolute Neuts (auto) 3.1, Absolute Lymphs (auto) 2.40, Nucleated RBC % [address] 07/17/22 11:04 IMPRESSION: Chronic involutional changes of the brain. No acute hemorrhage, old infarcts. Paranasal sinusitis N.B. : The above Results were Read Back by Paddy Carlson MD to Jey Benitez and understanding confirmed on 07/17/2022 11:18:33 (ET). Electronically Signed: Paddy Carlson MD at 11:20 EST , ADDENDUM: 07/17/22 1127 IMPRESSION: Chronic involutional changes of the brain. No acute hemorrhage, old infarcts. Paranasal sinusitis N.B. : The above Results were Read Back by Paddy Carlson MD to Jey Benitez and understanding confirmed on 07/17/2022 11:18:33 (ET). Electronically Signed: Paddy Carlson MD at 11:20 EST , Head/Neck CTA 07/17/22 11:05 IMPRESSION: No CTA evidence of CCA or ICA stenosis or plaque formation No intracranial vaso-occlusive disease, significant stenosis, aneurysm or vascular malformation N.B. : The above Results were Read Back by Paddy Carlson MD to Dr. Emmanuel MD, and understanding confirmed on 07/17/2022 11:34:51 (ET). Electronically Signed: Paddy Carlson MD at 11:36 EST , ADDENDUM: 07/17/22 1143 IMPRESSION: No CTA evidence of CCA or ICA stenosis or plaque formation No intracranial vaso-occlusive disease, significant stenosis, aneurysm or vascular malformation N.B. : The above Results were Read Back by Paddy Carlson MD to Dr. Emmanuel MD, and understanding confirmed on 07/17/2022 11:34:51 (ET). Electronically Signed: Paddy Carlson MD at 11:36 EST , Chest X-Ray 07/17/22 11:42 IMPRESSION: 1. No acute findings in the chest. 2. No interval change when compared to 12/15/2019. Electronically Signed: Jey Rollins MD at 12:23 EST , Charges/Coding Visit Charges Inpatient E&M: 09970 Init Hosp L3 07/18/22 0625 <Electronically signed by Lonny Joseph DO> Cosigner Signature (if applicable): CC: TOM Mayes; Dr. Michel Lee MD; Dr. Kianna Patrick DO; Dr. Lonny Joseph DO; Dr. Darnell García MD; Dr. Wayne Leahy MD; Dr. Esteban Waddell MD~ Signed [facility] Work Phone: 1([phone]) 850-714502-25-2023 History and physical note Author Dr. Patrick [facility] July 17, 2022 1:26pm Note Date/Time July 17, 2022 12:46pm [facility] Medical Records Department [address] [place] [address] [place] [address] H&P Exam - Hospitalist 07/17/22 1243 MR#: [id number] Acct: [id number] Name: NICOLE SALVADOR Rep #:[id number] : 1935 87 From: Melody Patrick DO PCP: Dr. Wayne Leahy MD Status:ADM I N Location: ICU ICU01-1 HPI - General General Date of Admission: 07/17/22 Date of Service: 07/17/22 Chief Complaint: Dysarthria/aphasia/left facial droop/left-sided weakness HPI Narrative NICOLE SALVADOR, is a 87 F who presented to the emergency department at [facility] on 07/17 2022 from her dialysis center with acute onset dysarthria/aphasia/left facial droop/left-sided weakness that started at the endof her dialysis session today. She does have history of previous stroke in 2019. Family states she was fine prior to to the event at dialysis. She does have some mild baseline dementia but is typically alert and oriented x3. Familyreports with previous stroke she had some expressive type aphasia as well. NIH is 5 at the present time. Left upper extremity and lower extremity weakness hasresolved. There is no further left facial droop. NIH was higher previously when presented but now status post tPA. Patient is speaking some gibberish uponmy exam and intermittently following commands. [facility]. Sees Dr. Kianna Patrick for dialysis. Vital signs at presentation demonstrated a temperature of 97.4, heart rate 88, blood pressure 138/62, respiratory 16, oxygen saturations are 98% on room air. CBC is overall unremarkable with a stable mild anemia having hemoglobin of 11.8. Coags are normal. Chemistry panel shows a chronic renal failure with a BUN of 19 and a serum creatinine of 4.28. Overall electrolytes are unremarkable. Initial troponin was 37. EKG shows normal sinus rhythm with a first-degree heart block and mild QTc prolongation. There are no changes consistent with acute ischemia however patient has chronic T wave inversions in the anterior lateral leads patient is chest pain- free. CT of her brain demonstrates chronic involutional changes of the brain with no acute hemorrhage and an old right occipital lobe and old left temporal lobe infarct as well as old lacunar infarcts in the bilateral basal ganglia. CTA of the head and neck was unremarkable for any LVO. Chest x-ray shows no acute chest findings and no interval change since 2019. She was given tPA in the emergency department. Her dialysis needles were not removed prior to coming from dialysis nor were they removed prior to her receiving tPA so they will need to stay in place in her left upper extremity fistula until 24 hours after tPA dosing. [facility] Medical History Acute respiratory failure with hypoxia Anemia Asthma Cerebellar infarct Chronic diastolic (congestive) heart failure Chronic kidney disease (CKD) stage G5/A1, glomerular filtration rate (GFR) less than or equal to 15 mL/min/1.73 square meter and albuminuria creatinine ratio less than 30 mg/g Chronic renal failure, stage 5 Cough Dementia Elevated troponin I level End-stage renal disease (ESRD) Essential hypertension Glaucoma History of CVA (cerebrovascular accident) (12/15/19) Hyperlipidemia Iron deficiency anemia Iron deficiency anemia Metabolic acidosis Obesity (BMI 30.0-34.9) Problem with dialysis access Problem with dialysis access RENAL FAILURE STAGE 6 Respiratory failure with hypoxia Shortness of breath Speech apraxia Home Medications timolol maleate 0.5 % eye drops 1 drp EACH EYE BID GLAUCOMA 11/26/15 [History Last Taken 10/31/19] calcium acetate(phosphat bind) 667 mg capsule 667 mg PO TIDCM 07/14/19 [History Last Taken 10/31/19] levothyroxine 100 mcg tablet 100 mcg PO DAILY 07/31/19 [History Last Taken 10/31/19] isosorbide mononitrate 60 mg tablet,extended release 24 hr 60 mg PO SUMOWEFR HTN10/26/19 [History Last Taken 10/31/19] latanoprost 0.005 % eye drops 1 drp RIGHT EYE QHS GLAUCOMA 10/26/19 [History Last Taken 10/30/19] handicap placcard See Rx Instructions .Route .COMPLEX #1 ea 03/12/20 [Rx Last Taken Unknown] nifedipine 60 mg tablet,extended release 60 mg PO DAILY 05/12/21 [History Last Taken Unknown] albuterol sulfate 90 mcg/actuation aerosol inhaler 2 inh inhalation Q4H PRN Shortness Of Breath 07/17/22 [History Last Taken Unknown] aspirin 81 mg tablet,delayed release 81 mg PO DAILY HEART HEALTH 07/17/22 [History Last Taken 07/17/22] atorvastatin 20 mg tablet 20 mg PO DAILY CHOLESTEROL 07/17/22 [History Last Taken 07/16/22 20:00] budesonide-formoterol HFA 160 mcg-4.5 mcg/actuation aerosol inhaler 1 inh inhalation DAILY SHORTNESS OF BREATH 07/17/22 [History Last Taken 07/17/22] budesonide-formoterol HFA 160 mcg-4.5 mcg/actuation aerosol inhaler 1 inh inhalation QHS SHORTNESS OF BREATH 07/17/22 [History Last Taken 07/16/22] dextran 70-hypromellose 0.1 %-0.3 % eye drops 1 drp ophthalmic (eye) DAILY 07/17/22 [History Last Taken 07/17/22] dextran 70-hypromellose 0.1 %-0.3 % eye drops 1 drp ophthalmic (eye) QHS 07/17/22 [History Last Taken 07/16/22] hydrocortisone probutate 0.1 % topical cream (Pandel) 1 applic topical Q12H PRN RASH/ITCHING 07/17/22 [History Last Taken Unknown] lidocaine-prilocaine 2.5 %-2.5 % topical cream 1 applic topical [facility] 07/17/22 [History Last Taken 07/17/22] nutritional supplements 237 ml PO UD SUPPLEMENT 07/17/22 [History Last Taken 07/17/22] vitamin B complex and vitamin C no.20-folic acid 1 mg capsule 1 cap PO DAILY 07/17/22 [History Last Taken 07/17/22] Allergy/AdvReac Type Severity Reaction Status Date / Time erythromycin base Allergy Rash Verified 05/12/21 14:42 lisinopril Allergy Unknown Verified 05/12/21 14:42 NSAIDS (Non-Steroidal Allergy Other Verified 05/12/21 14:42 Anti-Inflamma Salicylates Allergy Other Verified 05/12/21 14:42 PROTEIN IN URINE DRUG Allergy Other Uncoded 05/06/21 12:21 Family History Mother Colon cancer Hypertension Father Hypertension Surgical History History of loop recorder (07/20/19) Hx of cataract extraction Hx of foot surgery Hx of hysterectomy Hx of thyroidectomy s/p left AV fistula creation (02/19/19) Social History Smoking Status: Former smoker alcohol intake: never substance use type: does not use caffeine: Yes what type of physical activity do you participate in: none frequency: does not exercise ROS Constitutional Constitutional: Denies anorexia, change in weight, chills, fatigue, fever(s), malaise, night sweats, weakness or other Eyes Eyes: Denies blurry vision, change in eye color, change in vision, discharge from eye(s), double vision, erythema, eye pain, loss of vision or other ENT HEENT: Denies abnormal hearing, dysphagia, ear pain, epistaxis, headache(s), hearing loss, nasal congestion, nasal discharge, post nasal drip, sinus pressure, sore throat or other Cardiovascular Cardiovascular: Denies chest pain, claudication, dyspnea on exertion, edema, lightheadedness, orthopnea, palpitations, paroxysmal nocturnal dyspnea, rapid heart rate, syncope or other Respiratory/Chest Respiratory/Chest: Denies cough, dyspnea, excessive phlegm production, hemoptysis, productive cough, shortness of breath at rest, shortness of breath with exertion, wheezing or other Gastrointestinal Gastrointestinal: Denies abdominal pain, coffee ground emesis, constipation, diarrhea, dyspepsia, hematemesis, hematochezia, loose stools, melena, nausea, vomiting or other Genitourinary Genitourinary: Denies burning urination, difficulty urinating, dysuria, hematuria, nocturia, urinary frequency, urinary hesitancy, urinary incontinence,urinary urgency or other Musculoskeletal Musculoskeletal: Denies arthralgias, back pain, joint pain, joint stiffness, joint swelling, myalgias, neck pain or other Neurologic Neurologic: Reports abnormal speech, confusion and focal weakness; Denies abnormal gait, disequilibrium, dizziness, headache(s), numbness, paresthesias, seizure- like activity, seizures, syncope, tingling, tremor(s) or other Psychiatric Psychiatric: Denies anxiety, depression, homicidal ideation, suicidal ideation or other Endocrine Endocrinology: Denies change in body appearance, cold intolerance, excessive sweating, heat intolerance, polydipsia, polyuria or other Hematologic/Lymphatic Hematologic/Lymphatic: Denies anemia, easy bleeding, easy bruising, lymphadenopathy or other Allergic/Immunologic Allergic/Immunologic: Denies rhinitis, hives, eczemia, asthma or other Vital Signs Vital Signs Vital Signs: 07/17/22 11:17 07/17/22 11:27 07/17/22 11:37 Temperature 97.8 F 97.8 F Temperature Source Temporal Temporal Pulse Rate 88 85 Respiratory Rate 16 16 Blood Pressure 138/62 H 138/62 H 147/64 H Blood Pressure Mean 87 87 Blood Pressure Source Blood Pressure Position Blood Pressure Location Pulse Ox 98 98 Oxygen Delivery Method Room Air Room Air 07/17/22 11:50 07/17/22 11:51 07/17/22 12:00 Temperature 97.4 F L Temperature Source Temporal Pulse Rate 84 88 Respiratory Rate 20 H 17 Blood Pressure 141/58 H 133/109 H Blood Pressure Mean 85 117 Blood Pressure Source Monitor Monitor Blood Pressure Position Semi-Fowlers Semi-Fowlers Blood Pressure Location Right Arm Left Arm Pulse Ox 99 99 Oxygen Delivery Method Room Air Room Air Room Air 07/17/22 12:15 07/17/22 12:30 07/17/22 12:38 Temperature 97.8 F 98.2 F 97.6 F L Temperature Source Temporal Temporal Temporal Pulse Rate 84 91 86 Respiratory Rate 24 H 16 14 Blood Pressure 149/63 H 149/59 H 150/56 H Blood Pressure Mean 91 89 87 Blood Pressure Source Monitor Blood Pressure Position Semi-Fowlers Blood Pressure Location Right Arm Pulse Ox 98 99 99 Oxygen Delivery Method Room Air Room Air Room Air Weight Weight: 71.8 kg Body Mass Index (BMI) 27.1 Physical Exam Const alert Constitutional Narrative: Elderly, -[place] Citizen female, lying in bed, daughter at bedside, appears comfortable nontoxic, very verbose however sometimes language is nonsensical, intermittently follows commands, oriented to self and place as well as month (typically alert and oriented x3), intermittently cooperative HEENT normocephalic, head/scalp atraumatic and moist oral mucous membranes HEENT Narrative: Mild hearing loss, Mallampati 2, no thrush Eyes PERRL, EOMs intact bilaterally and conjunctivae normal Eyes Narrative: No scleral icterus Neck no lymphadenopathy, supple, no JVD and no carotid bruits Neck Narrative: Trachea midline Resp normal respiratory effort, no retractions, no use of accessory muscles and clearto auscultation bilaterally Auscultation: Negative for crackles, rhonchi or wheezes Cardio regular rate, regular rhythm, S1 normal heart sound, S2 normal heart sound, no murmurs, no rub, no gallops and no clicks GI normal to inspection, nondistended, normoactive bowel sounds, soft to palpation and non-tender Extremity no clubbing, cyanosis or edema Extremity Narrative: 2+ pedal pulses, 2+ radial pulses Skin no wounds, skin turgor normal, no jaundice, no petechiae and no mottling Skin Narrative: Left upper extremity fistula with palpable bruit and thrill, dialysis needles inplace with no significant oozing at this time Neuro CN's II-XII intact bilaterally, moves all extremities and no focal motor deficits Neuro Narrative: No left upper extremity pronator drift, no noted left upper extremity weakness, some mild limb ataxia, seems to have some expressive and partial receptive aphasia, intermittently follows commands, no current focal motor deficits Speech: Negative for speech normal Motor Exam: Negative for strength 5/5 throughout Psych affect normal Psych Narrative: Pleasant Results Lab / Micro Data Attestation: I reviewed the patient's lab results. Result Diagrams: 07/17/22 11:10 07/17/22 11:10 Labs: Laboratory Results - last 24 hr 07/17/22 11:10: WBC 7.2, RBC 4.15 L, Hgb 11.8 L, Hct 37.1, MCV 89.4, MCH 28.4, MCHC 31.8 L, RDW Std Deviation 46.2 H, RDW Coeff of Lizett 14.3, Plt Count 163, MPV10.8, Immature Gran % (Auto) 0.400, Neut % (Auto) 56.0, Lymph % (Auto) 29.9, Pender % (Auto) 9.1, Eos % (Auto) 3.1, Baso % (Auto) 1.5 H, Absolute Neuts (auto) 4.0, Absolute Lymphs (auto) 2.14, Nucleated RBC % 0 07/17/22 11:10: PT 12.9, INR 1.0, APTT 29.2 07/17/22 11:10: Sodium 137, Potassium 4.3, Chloride 97 L, Carbon Dioxide 34.0 H,Anion Gap 6, BUN 19 H, Creatinine 4.28 H, Estim Creat Clear Calc 8.15, Est GFR (MDRD) Af Amer 13 L, Est GFR (MDRD) Non-Af 10 L, BUN/Creatinine Ratio 4.4 L, Glucose 113 H, Calcium 8.4 L, Troponin I High Sens [address] 07/17/22 11:04 IMPRESSION: Chronic involutional changes of the brain. No acute hemorrhage, old infarcts. Paranasal sinusitis N.B. : The above Results were Read Back by Paddy Carlson MD to Jey Benitez and understanding confirmed on 07/17/2022 11:18:33 (ET). Electronically Signed: Paddy Carlson MD at 11:20 EST , ADDENDUM: 07/17/22 1127 IMPRESSION: Chronic involutional changes of the brain. No acute hemorrhage, old infarcts. Paranasal sinusitis N.B. : The above Results were Read Back by Paddy Carlson MD to Jey Benitez and understanding confirmed on 07/17/2022 11:18:33 (ET). Electronically Signed: Paddy Carlson MD at 11:20 EST , Head/Neck CTA 07/17/22 11:05 IMPRESSION: No CTA evidence of CCA or ICA stenosis or plaque formation No intracranial vaso-occlusive disease, significant stenosis, aneurysm or vascular malformation N.B. : The above Results were Read Back by Paddy Carlson MD to Dr. Emmanuel MD, and understanding confirmed on 07/17/2022 11:34:51 (ET). Electronically Signed: Paddy Carlson MD at 11:36 EST , ADDENDUM: 07/17/22 1143 IMPRESSION: No CTA evidence of CCA or ICA stenosis or plaque formation No intracranial vaso-occlusive disease, significant stenosis, aneurysm or vascular malformation N.B. : The above Results were Read Back by Paddy Carlson MD to Dr. Emmanuel MD, and understanding confirmed on 07/17/2022 11:34:51 (ET). Electronically Signed: Paddy Carlson MD at 11:36 EST , Chest X-Ray 07/17/22 11:42 IMPRESSION: 1. No acute findings in the chest. 2. No interval change when compared to 12/15/2019. Electronically Signed: Jey Rollins MD at 12:23 EST , Assessment & Plan Assessment/Plan (1) Received intravenous tissue plasminogen activator (tPA) in emergency department: (2) Stroke: (3) Dysarthria: (4) Aphasia: (5) Facial droop: (6) Left-sided weakness: PLAN: Plan Ischemic stroke -Patient presented with expressive aphasia, some dysarthria, left-sided facial droop, left-sided weakness -CT of the head was negative -CTA of the head and neck with no LVO -tPA given the emergency department around 1215 -Hold aspirin and DVT prophylaxis for 24 hours -Hold home antihypertensives and use as needed's to maintain blood pressure range -We will likely restart antihypertensives tomorrow depending on blood pressures -Keep patient under 180 preferably between 160 and 180 -Echocardiogram -Repeat imaging with either MRI or CT in 24 hours -If MRI not able to come in because it Tuesday we will check CT of head at 24 hours post tPA to assess for any signs of hemorrhagic transformation -Bedrest -Check lipids -Check hemoglobin A1c -PT/OT at 24 hours after tPA -Consult SOC neurology after imaging obtained -Admit to the ICU -Ischemic stroke protocol in place End-stage renal disease on dialysis -Patient was at dialysis on the day of presentation -Suspect Tuesday dialysis -Continue home binders -Consult nephrology--> Dr. 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 with tPA dosing Glaucoma -Continue home eyedrops Chronic HFpEF -Diastolic in nature -Compensated -Dialysis for volume management COPD/asthma -Continue home inhalers DVT prophylaxis -SCDs -Start chemoprophylaxis at 24 hours start tPA CODE STATUS -Full code per discussion prior to admission with family Charges/Coding Visit Charges Inpatient E&M: 15586 Init Hosp L3 07/17/22 1326 <Electronically signed by Melody Patrick DO> Cosigner Signature (if applicable): CC: Dr. Melody Patrick DO; Dr. Wayne Leahy MD~ Signed [facility] Work Phone: [phone] Benitez [facility] July 17, 2022 12:35pm Note Date/Time July 17, 2022 11:36am [facility] Medical Records Department [address] [place] [id number] Emergency Department Summary 07/17/22 MR#: [id number] Acct: [id number] Name: NICOLE SALVADOR Rep #:[id number] : 1935 87 From: Jey Benitez MD PCP: Dr. Wayne Leahy MD Status:REG E R Location: ED HPI History of Present Illness Chief Complaint: Stroke Alert Narrative Narrative: 87-year-old female past medical history of hypertension, hyperlipidemia, end- stage renal disease, previous stroke and TIA, last being in 2019 presents from dialysis with left-sided weakness and left-sided facial droop. She also has slurred speech. Last known well time was at approximately 10:30 AM, just prior to arrival. Her history and physical is limited secondary to her condition. She presents via EMS with the slurred speech and left-sided weakness. In discussion with her daughter, she has had previous strokes which left her with more of a memory deficit but no permanent disability. She had normal speech in the past. She has received tPA also in the past. Daughter recognizes that the patient's speech is currently animated and that she appears more confused, notfollowing commands as well. [facility] Medical History Acute respiratory failure with hypoxia Anemia Asthma Cerebellar infarct Chronic diastolic (congestive) heart failure Chronic kidney disease (CKD) stage G5/A1, glomerular filtration rate (GFR) less than or equal to 15 mL/min/1.73 square meter and albuminuria creatinine ratio less than 30 mg/g Chronic renal failure, stage 5 Cough Dementia Elevated troponin I level End-stage renal disease (ESRD) Essential hypertension Glaucoma History of CVA (cerebrovascular accident) (12/15/19) Hyperlipidemia Iron deficiency anemia Iron deficiency anemia Metabolic acidosis Obesity (BMI 30.0-34.9) Problem with dialysis access Problem with dialysis access RENAL FAILURE STAGE 6 Respiratory failure with hypoxia Shortness of breath Speech apraxia Home Medications ergocalciferol (vitamin D2) 1,250 mcg (50,000 unit) capsule 50,000 unit PO QMONTH 07/20/15 [History Last Taken 04/22/16] aspirin 81 mg tablet,delayed release 81 mg PO DAILY@0800 #30 tabs 07/22/15 [Rx Last Taken 10/31/19] timolol maleate 0.5 % eye drops 1 drp EACH EYE BID GLAUCOMA 11/26/15 [History Last Taken 10/31/19] calcium acetate(phosphat bind) 667 mg capsule 667 mg PO TIDCM 07/14/19 [History Last Taken 10/31/19] levothyroxine 100 mcg tablet 100 mcg PO DAILY 07/31/19 [History Last Taken 10/31/19] budesonide-formoterol HFA 160 mcg-4.5 mcg/actuation aerosol inhaler 1 puff inhalation BID COPD 10/26/19 [History Last Taken 10/31/19] isosorbide mononitrate 60 mg tablet,extended release 24 hr 60 mg PO SUMOWEFR HTN10/26/19 [History Last Taken 10/31/19] latanoprost 0.005 % eye drops 1 drp RIGHT EYE QHS GLAUCOMA 10/26/19 [History Last Taken 10/30/19] vitamin B complex and vitamin C no.20-folic acid 1 mg capsule 1 cap PO DAILY 10/26/19 [History Last Taken 10/31/19] atorvastatin 40 mg tablet 20 mg PO QHS 03/12/20 [History Last Taken Unknown] handicap placcard See Rx Instructions .Route .COMPLEX #1 ea 03/12/20 [Rx Last Taken Unknown] nifedipine 60 mg tablet,extended release 60 mg PO DAILY 05/12/21 [History Last Taken Unknown] Allergy/AdvReac Type Severity Reaction Status Date / Time erythromycin base Allergy Rash Verified 05/12/21 14:42 lisinopril Allergy Unknown Verified 05/12/21 14:42 NSAIDS (Non-Steroidal Allergy Other Verified 05/12/21 14:42 Anti-Inflamma Salicylates Allergy Other Verified 05/12/21 14:42 PROTEIN IN URINE DRUG Allergy Other Uncoded 05/06/21 12:21 Family History Mother Colon cancer Hypertension Father Hypertension Surgical History History of loop recorder (07/20/19) Hx of cataract extraction Hx of foot surgery Hx of hysterectomy Hx of thyroidectomy s/p left AV fistula creation (02/19/19) Social History Smoking Status: Former smoker alcohol intake: never substance use type: does not use caffeine: Yes what type of physical activity do you participate in: none frequency: does not exercise ROS ROS ED ROS Narrative Limited secondary to patient's current mental status. Review of Systems ROS Unobtainable: due to mental status EXAM Physical Exam Narrative Exam Narrative: Afebrile. Vital signs noted. HEENT: Normocephalic. Atraumatic. PERRL, EOMI. Neck soft and supple. No pointtenderness or step off. Cardiovascular: Regular rate and rhythm. No murmurs, rubs, or gallops appreciated. Respiratory: No tachypnea. Lungs clear to auscultation bilaterally. Gastrointestinal: Abdomen soft, nontender, with normoactive bowel sounds. No rebound or guarding. Neurological: Awake. Alert. Left-sided weakness, left-sided facial droop, positive aphasia. NIH stroke scale upon presentation is 11 mainly for left-sided facial droop, left-sided weakness of upper and lower extremity, and dysarthria with aphasia. Skin: No rash. Normal color. No pallor. Musculoskeletal: No pedal edema. Full range of motion extremities. Const Vital Signs: 07/17/22 11:17 07/17/22 11:27 07/17/22 11:37 Temperature 97.8 F 97.8 F Temperature Source Temporal Temporal Pulse Rate 88 85 Respiratory Rate 16 16 Blood Pressure 138/62 H 138/62 H 147/64 H Blood Pressure Mean 87 87 Blood Pressure Source Blood Pressure Position Blood Pressure Location Pulse Ox 98 98 Oxygen Delivery Method Room Air Room Air 07/17/22 11:50 07/17/22 11:51 07/17/22 12:00 Temperature 97.4 F L Temperature Source Temporal Pulse Rate 84 88 Respiratory Rate 20 H 17 Blood Pressure 141/58 H 133/109 H Blood Pressure Mean 85 117 Blood Pressure Source Monitor Monitor Blood Pressure Position Semi-Fowlers Semi-Fowlers Blood Pressure Location Right Arm Left Arm Pulse Ox 99 99 Oxygen Delivery Method Room Air Room Air Room Air 07/17/22 12:15 07/17/22 12:30 Temperature 97.8 F 98.2 F Temperature Source Temporal Temporal Pulse Rate 84 91 Respiratory Rate 24 H 16 Blood Pressure 149/63 H 149/59 H Blood Pressure Mean 91 89 Blood Pressure Source Monitor Blood Pressure Position Semi-Fowlers Blood Pressure Location Right Arm Pulse Ox 98 99 Oxygen Delivery Method Room Air Room Air MDM MDM MDM Narrative Medical decision making narrative: Upon arrival, patient was sent to CT scan for her stroke symptoms. CT of the brain was reviewed and I spoke with the radiologist, there is no acute process or hemorrhage. CTA was also obtained, and I reviewed the report with the radiologist per telephone, and there is no large vessel occlusion. While her NIH stroke scale was repeated and her left arm and leg weakness has improved, she is still having dysarthria with mild aphasia. This is debilitating to the patient and reviewed with the neurologist. Her daughter is at the bedside and stated that she has received tPA in the past, the last time being in 2019. The only deficit that remained after that was memory loss/problems with memory. Mariola is at the bedside and is the [employer] for medical care, and she would like tPA given. She did not have any questions for me or for the neurologist regarding the use of tenecteplase. She was made aware of the risk of intracranial or GI hemorrhage and acknowledges an understanding. Tenecteplase order set was instituted. Given that she received tPA, patient will be discussed with the hospitalist for admission. EKG was obtained, interpreted by myself, and reviewed which demonstrates sinus rhythm with first- degree AV block and a bifascicular block but no acute ST changes, no STEMI. I reviewed her laboratory work, she has a normal white count of 7.2, hemoglobin stable 11.8, platelet count 163. Coagulation studies are negative. BMP shows achloride of 97 with a CO2 of 34, creatinine consistent with her end-stage renal disease, elevated at 4.28 with a BUN of 19. High-sensitivity troponin 37. Uponrepeat examination at approximately 1225, her dysarthria and aphasia has improved, along with her left-sided weakness. Given that she has received tPA, patient was discussed with Dr. Patrick for admission to the ICU. Patient is in stable condition. Critical care time 31 minutes. Lab Data Attestation: I reviewed the patient's lab results. Labs: Laboratory Results - last 24 hr 07/17/22 07/17/22 07/17/22 11:10 11:10 11:10 WBC 7.2 RBC 4.15 L Hgb 11.8 L Hct 37.1 MCV 89.4 MCH 28.4 MCHC 31.8 L RDW Std Deviation 46.2 H RDW Coeff of Lizett 14.3 Plt Count 163 MPV 10.8 Immature Gran % (Auto) 0.400 Neut % (Auto) 56.0 Lymph % (Auto) 29.9 Pender % (Auto) 9.1 Eos % (Auto) 3.1 Baso % (Auto) 1.5 H Absolute Neuts (auto) 4.0 Absolute Lymphs (auto) 2.14 Nucleated RBC % 0 PT 12.9 INR 1.0 APTT 29.2 Sodium 137 Potassium 4.3 Chloride 97 L Carbon Dioxide 34.0 H Anion Gap 6 BUN 19 H Creatinine 4.28 H Estim Creat Clear Calc 8.15 Est GFR (MDRD) Af Amer 13 L Est GFR (MDRD) Non-Af 10 L BUN/Creatinine Ratio 4.4 L Glucose 113 H Calcium 8.4 L Troponin I High Sens 37 Radiography Diagnostic Testing: Clinical Impression(s) from Imaging Studies Brain CT 07/17/22 11:04 IMPRESSION: Chronic involutional changes of the brain. No acute hemorrhage, old infarcts. Paranasal sinusitis N.B. : The above Results were Read Back by Paddy Carlson MD to Jey Benitez and understanding confirmed on 07/17/2022 11:18:33 (ET). Electronically Signed: Paddy Carlson MD at 11:20 EST Reading Location ID and State: [facility] / [place] , Service support , ADDENDUM: 07/17/22 1127 IMPRESSION: Chronic involutional changes of the brain. No acute hemorrhage, old infarcts. Paranasal sinusitis N.B. : The above Results were Read Back by Paddy Carlson MD to Jey Benitez and understanding confirmed on 07/17/2022 11:18:33 (ET). Electronically Signed: Paddy Carlson MD at 11:20 EST Reading Location ID and State: [facility] / [place] , Service support , Head/Neck CTA 07/17/22 11:05 IMPRESSION: No CTA evidence of CCA or ICA stenosis or plaque formation No intracranial vaso-occlusive disease, significant stenosis, aneurysm or vascular malformation N.B. : The above Results were Read Back by Paddy Carlson MD to Dr. Emmanuel MD, and understanding confirmed on 07/17/2022 11:34:51 (ET). Electronically Signed: Paddy Carlson MD at 11:36 EST , ADDENDUM: 07/17/22 1143 IMPRESSION: No CTA evidence of CCA or ICA stenosis or plaque formation No intracranial vaso-occlusive disease, significant stenosis, aneurysm or vascular malformation N.B. : The above Results were Read Back by Paddy Carlson MD to Dr. Emmanuel MD, and understanding confirmed on 07/17/2022 11:34:51 (ET). Electronically Signed: Paddy Carlson MD at 11:36 EST , Chest X-Ray 07/17/22 11:42 IMPRESSION: 1. No acute findings in the chest. 2. No interval change when compared to 12/15/2019. Electronically Signed: Jey Rollins MD at 12:23 EST , Critical Care Time Critical Care Time: Yes Critical care time (excluding procedures): 30-74 minutes (31), Including time spent:, Discussing w/Patient &/or Family/Machine Operator Hop Picker, Discussing w/Consultants, Arranging Admission or Transfer and Performing Direct Patient Care at Bedside Discharge Plan Dx/Rx/DC Orders Clinical Impression: Essential hypertension, End-stage renal disease (ESRD), Stroke, Received intravenous tissue plasminogen activator (tPA) in emergency department Disposition Disposition: [place] [facility] What to do if you have Problems For any increased pain, shortness of breath, bleeding, nausea or vomiting, chestpain, or any unexpected problems, contact your Primary Care Provider. Call [facility] ([phone]) or report to the closest Emergency Room. Call 911 if necessary. 07/17/22 1235 <Electronically signed by Jey Benitez MD> Cosigner Signature (if applicable): CC: Dr. 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 TIA (transient ischemic attack) October, chronic Chronic diastolic (congestive) heart failure chronic History of CVA (cerebrovascular accident) December 14, chronic History of loop recorder July 20, 2019 chronic TIA (transient ischemic attack) October, chronic Anemia acute Aphasia acute Dysarthria acute ESRD (end stage renal disease) on dialysis acute Facial droop acute Left-sided weakness acute Received intravenous tissue plasminogen activator (tPA) in emergency department acute Stroke acute Dementia chronic End-stage renal disease (ESRD) chronic Essential hypertension chron ic Hyperlipidemia chronic Hypertension [facility] Work Phone: [phone] 557-391202-28-2020 Evaluation note* Diagnosis Onset Date Resolution Status Chronic diastolic (congestive) heart failure chronic End-stage renal disease (ESRD) chronic Essential hypertension chron ic History of loop recorder July 20, 2019 chronic Hyperlipidemia chronic Confusion acute Slurred speech acute TIA (transient ischemic attack) acute Dementia chronic End-stage renal disease (ESRD) [facility] Work Phone: [phone] 349-648302-28-2020 Evaluation note* Diagnosis Onset Date Resolution Status Chronic diastolic (congestive) heart failure chronic End-stage renal disease (ESRD) chronic Essential hypertension chron ic History of loop recorder July 20, 2019 chronic Hyperlipidemia chronic Anemia acute Confusion acute ESRD (end stage renal disease) on dialysis acute Slurred speech acute TIA (transient ischemic attack) acute Dementia chronic End-stage renal disease (ESRD) chronic History of CVA (cerebrovascular accident) December 14 020 chronic Hypertension [facility] Work Phone: Discharge summary Author Melody Patrick [facility] December 06, 2022 4:59pm Note Date/Time December 06, 2022 4:59 pm [facility] Medical Records Department [address] [place] [address] Transfer to [facility] MR#: [id number] Acct: [id number] Name: NICOLE SALVADOR Rep #:[id number] : 1935 87 From: Melody Patrick DO PCP: Dr. Wayne Leahy MD Status:ADM I NO Certification of patient admission REQUIRED AT TIME OF ADMISSION. I CERTIFY THAT POST-HOSPITAL ECF SERVICES ARE REQUIRED TO BE GIVEN ON AN IN-PATIENT BASIS BECAUSE OF THE ABOVE NAMED PATIENT'S NEED FOR LONG TERM CARE ON A CONTINUING BASIS FOR THE CONDITION(S) FOR WHICH HE/SHE WAS RECEIVING IN-PATIENT HOSPITAL SERVICES PRIOR TO HIS/HER TRANSFER TO THE F. 12/06/22 2144<Electronically signed by Melody Patrick DO> Diet Diet Order/Speech Therapy: 07/16/23 14:41 Diet: Renal - General Food consistency:: Regular Liquid Consistency:: Regular/Thin Routine Orders/Code Status Suppository Frequency: Daily PRN O2 Liters per Minute: 2 O2 Frequency: PRN Keep PO Greater than or Equal to (%): 88 Routine Lab Work: CBC (1 week) Code Status: Full Code Therapies Weight Bearing: Full weight bearing Physical Therapy: Eval and Treat Occupational Therapy: Eval and Treat Problem/Diagnosis (1) ESRD (end stage renal disease) on dialysis: Status: Acute Code(s): N18.6 - End stage renal disease; Z99.2 - Dependence on renal dialysis (2) Confusion: Status: Acute Code(s): R41.0 - Disorientation, unspecified (3) Slurred speech: Status: Acute Code(s): R47.81 - Slurred speech (4) History of CVA (cerebrovascular accident): Status: Chronic Code(s): Z86.73 - Personal history of transient ischemic attack (TIA), and cerebral infarction without residual deficits Comment: R MCA Stroke 07/20/2019 received TPA; Transferred to [facility] 12/15/2019 (5) Hypertension: Status: Chronic Code(s): I10 - Essential (primary) hypertension (6) Anemia: Status: Acute Code(s): D64.9 - Anemia, unspecified Allergies/Procedures Done in Hospital Allergies erythromycin base Allergy (Verified 08/16/22 13:13) Rash lisinopril Allergy (Verified 08/16/22 13:13) Unknown NSAIDS (Non-Steroidal Anti-Inflamma Allergy (Verified 08/16/22 13:13) Other Salicylates Allergy (Verified 08/16/22 13:13) Other Procedures: 2-D Echocardiogram and - (CT brain/CTA head and neck/MRI brain/chestx-ray) Type of Care/Length of Stay Estimated LOS: More Than 30 Days Type of Care Needed: Intermediate Rehab Potential: Fair Prognosis: Fair Additional Orders/Day of Discharge Day of Discharge: 12/06/22 Dietary and Speech Recommendations Dietitian Recommendations/Changes: Continue general renal diet; offer ONS as needed if PO fails at meals. Speech Linguistic Eval Summary: Per most recent RN Shift Clinical Findings, pt'srespiratory standards are met, and pt on room air. Per chart review, pt had speech evaluation completed last June, during previous admission. Patient's daughter reported pt sees speech therapy a couple times a week, but is unsure ofthe exact frequency. Additionally, pt's daughter reported pt's word finding and memory have worsened since previous admission, 06/2022, and her main goal for hermother would be to work on slurred speech and recall. Pt reports no concerns forher speech or swallowing. Informal Cognitive-Linguistic Assessment- Orientation: Patient oriented to her name, , city, and age (with 3 self corrections independently). Pt not oriented to place or date despite max verbal cues. Auditory Comprehension: Patient tasked with simple yes/no questions with 4/5 acc, and moderate yes/no with 2/5 acc despite verbal cues. Patient observed to have difficult time attending to task, and would answer the question in sentenceform, instead of giving yes/no answer. Patient tasked with 1-step commands with 10/10 acc, and 2- step commands with 0/5 acc. Verbal Expression- Repetition: Patient tasked to repeat single words with 9/10 acc, and phrases with 8/10 acc. Confrontation Naming: Patient tasked to name items around the room with 7/10 acc. Divergent Naming: Patient tasked to name as many animals as she could think of in 60 seconds, naming 13 total items with a verbal cue prior to naming items, verbal cues X2 during completion, repetition X1, inappropriate responses X4 (i.e., potato, pepperoni, Ted, memaw). Re-tasked pt with divergent naming task, tasking to name items beginning with the letter m, naming 14 total items with verbal cues throughout, repetitions X1, and inappropriate responses X9 (e.g., goose, geese, tomato, meese, pickle). Speech Sample: 60 second speech sample taken with 3.13 words per utterance. Memory: Pt tasked with immediate recall of 3 words with 2/3 acc. Tasked pt with 2 minute delayed recall with 0/3 acc, increasing to 2/3 acc with moderate verbalcues. Informal speech production assessment- /p^/ - 1.4 syllables per second (WNL = atleast 6.4 syllables per second), /t^/ - 3.7 syllables per second (WNL = at least6.1 syllables per second), /k^/ - 3.6 syllables per second (WNL = at least 5.7 syllables per second). /p^t^k^/ - 3.0 syllables per second with some sound substitutions (puhsuhsuh/ puhtuhkuh). Patient observed to have some difficulty completing task, and would occasionally say words (e.g., potato) during task instead of speech sounds. Patient presents with moderate cognitive-linguistic impairment characterized by deficits in orientation, auditory comprehension, attention, and memory, and milddysarthria characterized by fast rate of speech and imprecise articulation. Willrecommend skilled speech therapy to address deficits listed above, and for pt tocontinue speech therapy at the next level of care. Pt and pt's daughter agreeable. Discharge Plan Admission Admit Date/Time: 12/05/22 13:56 Attending Provider: Melody Patrick Primary Care Provider: Wayne Leahy [employer] Providers: Kianna Patrick; John Lutz Discharge Orders/Prescriptions Prescriptions: No Action levothyroxine 100 mcg tablet 100 mcg PO DAILY handicap placcard See Rx Instructions .ROUTE .COMPLEX Qty: 1 0RF Rx Instructions: Duration: lifetime Diagnosis: CVA, debility nifedipine 60 mg tablet extended release 60 mg PO DAILY timolol maleate 1 DROP drops 1 drp EACH EYE BID calcium acetate(phosphat bind) 667 MG capsule 1,334 mg PO TIDCM latanoprost 1 DROP bottle 1 drp RIGHT EYE QHS isosorbide mononitrate 60 MG tablet 60 mg PO SUMOWEFR atorvastatin 20 mg Tablet 20 mg PO DAILY nutritional supplements Liquid 237 ml PO UD Pandel 0.1 % Cream 1 applic TOPICAL Q12H PRN (Reason: RASH/ITCHING) lidocaine-prilocaine 2.5-2.5 % Cream 1 applic topical TUTHSA B complex with C 20-folic acid 1 mg Capsule 1 cap PO DAILY albuterol sulfate 90 mcg/actuation HFA aerosol inhaler 2 inh INHALATION Q4H PRN (Reason: Shortness Of Breath) budesonide-formoterol 160-4.5 mcg/actuation Hfa Aerosol Inhaler 1 inh INHALATION QHS dextran 70-hypromellose 0.1-0.3 % Drops 1 drp ophthalmic (eye) QHS aspirin 81 MG tablet,delayed release (DR/EC) 81 mg PO DAILY albuterol sulfate 2.5 mg /3 mL (0.083 %) solution for nebulization 2.5 mg continuous nebulization Q4H PRN (Reason: SOB/Wheezing) Referrals / Follow Up: Wayne Leahy Chi, MD [Primary Care Provider] - (5) Hypertension Qualifiers: Hypertension type: primary hypertension Qualified Code(s): I10 - Essential (primary) hypertension (6) Anemia Qualifiers: Anemia type: iron deficiency 12/06/221658 <Electronically signed by Melody Patrick DO> Cosigner Signature (if applicable): CC: Dr. Kianna Patrick DO; Dr. John Lutz MD; Dr. Wayne Leahy MD ~ [facility] Work Phone: Discharge summary Author Melody Patrick [facility] December 06, 2022 5:15pm Note Date/Time December 06, 2022 5:02 pm [facility] Medical Records Department [address] [place] [address] Discharge Summary 12/06/221658 MR#: [id number] Acct: [id number] Name: NICOLE SALVADOR Rep #:[id number] : 1935 87 From: Melody Patrick DO PCP: Dr. Wayne Leahy MD Status:ADM I NO Location: [place] [address] Providers Date of Admission: 12/05/22 Date of Discharge: 12/06/22 Primary Care Physician: Dr. Wayne Leahy MD Consultations 12/05/22 14:40 Consult: Nephrology Routine Consulting Provider: Kianna Patrick Reason for Consult: ESRD EMERGENT Consult: No MD Notified: Yes Date Notified: 12/05/22 Time Notified: 14:02 Method of Notification: Text Reason For Visit: TIA Diagnosis Discharge Diagnosis (1) ESRD (end stage renal disease) on dialysis: Status: Acute Code(s): N18.6 - End stage renal disease; Z99.2 - Dependence on renal dialysis (2) Confusion: Status: Acute Code(s): R41.0 - Disorientation, unspecified (3) Slurred speech: Status: Acute Code(s): R47.81 - Slurred speech (4) History of CVA (cerebrovascular accident): Status: Chronic Code(s): Z86.73 - Personal history of transient ischemic attack (TIA), and cerebral infarction without residual deficits (5) Hypertension: Status: Chronic Code(s): I10 - Essential (primary) hypertension Qualifiers: Hypertension type: primary hypertension Qualified Code(s): I10 - Essential (primary) hypertension (6) Anemia: Status: Acute Code(s): D64.9 - Anemia, unspecified Qualifiers: Anemia type: iron deficiency Medications at Discharge Home Medications timolol maleate 0.5 % eye drops 1 drp EACH EYE BID GLAUCOMA 11/26/15 calcium acetate(phosphat bind) 667 mg capsule 1,334 mg PO TIDCM RENAL DIALYSIS 07/14/19 levothyroxine 100 mcg tablet 100 mcg PO DAILY thyroid 07/31/19 isosorbide mononitrate 60 mg tablet,extended release 24 hr 60 mg PO SUMOWEFR HTN10/26/19 latanoprost 0.005 % eye drops 1 drp RIGHT EYE QHS GLAUCOMA 10/26/19 handicap placcard See Rx Instructions .Route .COMPLEX #1 ea 03/12/20 nifedipine 60 mg tablet,extended release 60 mg PO DAILY BLOOD PRESSURE 05/12/21 albuterol sulfate 90 mcg/actuation aerosol inhaler 2 inh inhalation Q4H PRN Shortness Of Breath 07/17/22 aspirin 81 mg tablet,delayed release 81 mg PO DAILY HEART HEALTH 07/17/22 atorvastatin 20 mg tablet 20 mg PO DAILY CHOLESTEROL 07/17/22 budesonide-formoterol HFA 160 mcg-4.5 mcg/actuation aerosol inhaler 1 inh inhalation QHS SHORTNESS OF BREATH 07/17/22 dextran 70-hypromellose 0.1 %-0.3 % eye drops 1 drp ophthalmic (eye) QHS 07/17/22 hydrocortisone probutate 0.1 % topical cream (Pandel) 1 applic topical Q12H PRN RASH/ITCHING 07/17/22 lidocaine-prilocaine 2.5 %-2.5 % topical cream 1 applic topical TUTHSA DIALYSIS 07/17/22 nutritional supplements 237 ml PO UD SUPPLEMENT 07/17/22 vitamin B complex and vitamin C no.20-folic acid 1 mg capsule 1 cap PO DAILY 07/17/22 albuterol sulfate 2.5 mg/3 mL (0.083 %) solution for nebulization 2.5 mg continuous nebulization Q4H PRN SOB/Wheezing 12/05/22 clopidogrel 75 mg tablet 75 mg PO DAILY #30 tabs 12/06/22 Hospital Course Operations None Procedures 2-D Echocardiogram, EKG and - (CT brain/CTA head neck/chest x-ray/MRI brain) Summary of Care Provided Minutes Spent on Discharge: 30 Hospital Course: Mrs. Salvador is an 87-year-old -[place] Citizen female with history of stroke and TIAs who presented to the emergency department at [facility] on 12/05/2022 with slurred speech and difficulty using her walker. Her last presentation for strokelike symptoms was in June 2022 and she did have some speech type difficulties at that time and her NIH was 5. She was given tPA at that time and admitted to the ICU following this. An MRI was performed and showed no acute infarct at that time. Neurology was consulted and recommended continuing her Plavix. The patient has a loop recorder and at baseline without any notification of any arrhythmias. She is dialysis dependent at baseline. Evidently on the day of this admission she was at anabaptism with her daughter and became unresponsive. There evidently was an episode of increased confusion and slurring her speech. Stroke team was called from triage due to her speech difficulties. CT done in the emergency department was unremarkable for any acute findings and only showed chronic involutional changes. CTA of the head and neck showed no large vessel occlusions and no significant stenosis. Stroke neurologist from [facility] was contacted and did not recommend tPA as during his exam her symptoms were overall improving and her overall NIH was a scale of 1-2. She was admitted the hospital for further work-up and Plavix was added to her home baseline medication regimen. Symptoms have completely resolved and herNIH was 0. Per discussion with her daughter her mentation was back to baseline and her speech was not baseline as well. An MRI was performed and showed old left temporal infarct, old right occipital infarct and an old right frontal lobeinfarct with no acute new findings. Previous echoes have noted atheromatous plaque in the descending aorta she does have previous echocardiogram which demonstrated previous negative bubble study from echocardiogram on 01/12/2019. Given the above resolution and her ongoing antiplatelet therapy with aspirin we did feel it was prudent since she was continue to have intermittent symptoms on aspirin alone to add Plavix 75 mg daily. I have asked her daughter to get an appointment with neurology after discharge for any further assistance with regards to her recurrent TIAs and strokes. As noted before she does have a looprecorder that was placed in 2019 and there is not been any notification of abnormal arrhythmias noted. Patient was able to be discharged back to her skilled facility on 12/06/2022 with only the addition of Plavix. Vascular follow-up with her primary care physician within the next 1 to 2 weeks and neurology as able to obtain an appointment. 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 Glaucoma Chronic HFpEF COPD Asthma Physical Exam Const alert, no apparent distress, average body habitus and well nourished Constitutional Narrative: Elderly, -[place] Citizen, female, lying in bed with her eyes closed but does awaken to verbal and tactile stimuli, daughter at bedside, patient oriented x2, appears comfortable and nontoxic General Appearance: cooperative, comfortable, well kempt and well developed Orientation / Consciousness: awake, oriented to person and oriented to place Exam Limitations: other limitations HEENT normocephalic, head/scalp atraumatic and moist oral mucous membranes HEENT Narrative: Mild hearing loss, Mallampati 2, no thrush Resp normal respiratory effort, no retractions, no use of accessory muscles and clearto auscultation bilaterally Auscultation: Negative for rales, rhonchi or wheezes Cardio regular rate, regular rhythm, S1 normal heart sound, S2 normal heart sound, no rub, no gallops and no clicks; Negative for no murmurs Cardio Narrative: Patient with soft murmur due to presence of dialysis fistula GI normal to inspection, nondistended, normoactive bowel sounds, soft to palpation and non-tender Extremity no clubbing, cyanosis or edema Extremity Narrative: Pedal pulses are 2+, decreased lean muscle mass Skin Skin Narrative: Left upper extremity fistula in place with positive bruit and thrill Neuro CN's II-XII intact bilaterally, moves all extremities and no focal motor deficits Speech: speech normal Psych affect normal Psych Narrative: Appears comfortable, appropriately interactive, pleasantly confused Weight / BMI Weight Weight: 67 kg Body Mass Index (BMI) 25.3 ABG / Lab / Microbiology Data 12/06/22 05:24 12/06/22 05:24 Laboratory: Laboratory Results - last 24 hr 12/06/22 05:24: WBC 5.3, RBC 3.49 L, Hgb 9.9 L, Hct 31.7 L, MCV 90.8, MCH 28.4, MCHC 31.2 L, RDW Std Deviation 53.1 H, RDW Coeff of Lizett 15.9 H, Plt Count 112 L,MPV 12.1 H, Immature Gran % (Auto) 0.200, Neut % (Auto) 43.5 L, Lymph % (Auto) 41.1 H, Pender % (Auto) 9.3, Eos % (Auto) 4.2, Baso % (Auto) 1.7 H, Absolute Neuts(auto) 2.3, Absolute Lymphs (auto) 2.17, Nucleated RBC % 0, Sodium 139, Potassium 4.1, Chloride 102, Carbon Dioxide 30.0, Anion Gap 7, BUN 53 H, Creatinine 8.13 H*, Estim Creat Clear Calc 4.29, Est GFR (MDRD) Af Amer 6 L, Est GFR(MDRD) Non-Af 5 L, BUN/Creatinine Ratio 6.5 L, Glucose 81, Calcium 8.6, Phosphorus 3.6, Magnesium 2.5, Triglycerides 81, Cholesterol 97, LDL [id number], VLDL Cholesterol 16, HDL Cholesterol 55 Radiography Diagnostic Testing: Radiology Impression Brain MRI 12/06/22 14:03 IMPRESSION: (NOT LISTED IN ORDER OF SIGNIFICANCE) There are no acute intracranial findings. Electronically Signed: Manav Travis MD at 16:51 EDT Reading Location ID and State: [facility] / [place] , Service support , D/C Instructions Discharge Diet: Low fat / Low cholesterol Discharge Activity: Return to Normal Activity Meaningful Use Info Meaningful Use Diagnoses (Choose all that apply): None applicable Discharge Plan Admission Admit Date/Time: 12/05/22 13:56 Primary Reason for Your Visit: Slurred speech/unsteady gait Attending Provider: Melody Patrick Primary Care Provider: Wayne Leahy [employer] Providers: Kianna Patrick; John Lutz Discharge Orders/Prescriptions Prescriptions: New clopidogrel 75 mg Tablet 75 mg PO DAILY Qty: 30 5RF Continued levothyroxine 100 mcg tablet 100 mcg PO DAILY handicap placcard See Rx Instructions .ROUTE .COMPLEX Qty: 1 0RF Rx Instructions: Duration: lifetime Diagnosis: CVA, debility nifedipine 60 mg tablet extended release 60 mg PO DAILY timolol maleate 1 DROP drops 1 drp EACH EYE BID calcium acetate(phosphat bind) 667 MG capsule 1,334 mg PO TIDCM latanoprost 1 DROP bottle 1 drp RIGHT EYE QHS isosorbide mononitrate 60 MG tablet 60 mg PO SUMOWEFR atorvastatin 20 mg Tablet 20 mg PO DAILY nutritional supplements Liquid 237 ml PO UD Pandel 0.1 % Cream 1 applic TOPICAL Q12H PRN (Reason: RASH/ITCHING) lidocaine-prilocaine 2.5-2.5 % Cream 1 applic topical TUTHSA B complex with C 20-folic acid 1 mg Capsule 1 cap PO DAILY albuterol sulfate 90 mcg/actuation HFA aerosol inhaler 2 inh INHALATION Q4H PRN (Reason: Shortness Of Breath) budesonide-formoterol 160-4.5 mcg/actuation Hfa Aerosol Inhaler 1 inh INHALATION QHS dextran 70-hypromellose 0.1-0.3 % Drops 1 drp ophthalmic (eye) QHS aspirin 81 MG tablet,delayed release (DR/EC) 81 mg PO DAILY albuterol sulfate 2.5 mg /3 mL (0.083 %) solution for nebulization 2.5 mg continuous nebulization Q4H PRN (Reason: SOB/Wheezing) Referrals / Follow Up: Elkin Presley MD [Non-Staff -Ordering Privileges] - Within 1 Month (stroke/TIA follow-up) Wayne Leahy Chi, MD [Primary Care Provider] - Within 2 Weeks Disposition Disposition (needs filled in before D/C Order can be placed): NonSkilled NH/Intermed Care Charges/Coding Visit Charges Inpatient E&M: 46866 SNF Disch 12/06/224 <Electronically signed by Melody Patrick DO> Cosigner Signature (if applicable): CC: Dr. Melody Patrick DO; Dr. Wayne Leahy MD~ Signed [facility] Work Phone: Discharge summary Author Micha Feliciano [facility] March 16, 2023 2:37pm Note Date/Time March 16, 2023 2 :07pm [facility] Medical Records Department [address] [place] [address] Discharge Summary 03/16/23 1403 MR#: [id number] Acct: [id number] Name: NICOLE SALVADOR Rep #:[id number] : 1935 88 From: Micah newton MD PCP: Dr. Wayne Leahy MD Status:ADM I NO Location: [place] [address] Providers Date of Admission: 03/15/23 Primary Care Physician: Dr. Wayne Leahy MD Consultations 03/15/23 13:35 Consult: Nephrology Routine Consulting Provider: Kianna Patrick Reason for Consult: Dialysis EMERGENT Consult: No MD Notified: Yes Date Notified: 03/15/23 Time Notified: 12:32 Method of Notification: Answering Service Reason For Visit: CVA R/O Diagnosis Discharge Diagnosis (1) ESRD on hemodialysis: Status: Acute Code(s): N18.6 - End stage renal disease; Z99.2 - Dependence on renal dialysis (2) Confusion: Status: Acute Code(s): R41.0 - Disorientation, unspecified (3) Left-sided weakness: Status: Acute Code(s): R53.1 - Weakness (4) skilled nursing resident: Status: Acute Code(s): Z59.3 - Problems related to living in residential institution (5) Dementia: Status: Acute Code(s): F03.90 - Unspecified dementia, unspecified severity, without behavioral disturbance, psychotic disturbance, mood disturbance, and anxiety Qualifiers: Dementia type: vascular dementia Plan 1. CVA rule out ? We will obtain an MRI ? Will not obtain a echo as this was recently done 2 months ago, CTA of the headand neck is unremarkable on this admission ? She has had a previous EEG which was negative for seizure, and she has had work-ups in the past that were unremarkable ? As she is already on aspirin and Plavix, the only change that I can make is toincrease her Lipitor ? She did have a loop recorder in June 2019 so unlikely to have A-fib 2. HTN/HLD/chronic diastolic CHF ? Recent echo with an EF of 65% and stage II diastolic dysfunction ? Can resume her home blood pressure medications tomorrow as I will be a 24-hourwindow progressive hypertension ? Blood pressures are currently stable ? We will continue to monitor and make adjustments as necessary ? Continue with aspirin and Plavix 3. ESRD on Dialysis/Anemia of chronic disease ? Consult nephrology for dialysis 4. Hypothyroidism ? Stable ? Continue with Synthroid DVT: Ambulation 75 minutes was spent on direct patient care, including documentation as well as chart review and collaboration with colleagues Medications at Discharge Home Medications timolol maleate 0.5 % eye drops 1 drp EACH EYE BID GLAUCOMA 11/26/15 calcium acetate(phosphat bind) 667 mg capsule 1,334 mg PO TIDCM RENAL DIALYSIS 07/14/19 levothyroxine 100 mcg tablet 100 mcg PO DAILY thyroid 07/31/19 isosorbide mononitrate 60 mg tablet,extended release 24 hr 60 mg PO SUMOWEFR HTN10/26/19 nifedipine 60 mg tablet,extended release 60 mg PO DAILY BLOOD PRESSURE 05/12/21 albuterol sulfate 90 mcg/actuation aerosol inhaler 2 inh inhalation Q4H PRN Shortness Of Breath 07/17/22 aspirin 81 mg tablet,delayed release 81 mg PO DAILY HEART HEALTH 07/17/22 budesonide-formoterol HFA 160 mcg-4.5 mcg/actuation aerosol inhaler 1 inh inhalation QHS SHORTNESS OF BREATH 07/17/22 dextran 70-hypromellose 0.1 %-0.3 % eye drops 1 drp ophthalmic (eye) QHS 07/17/22 hydrocortisone probutate 0.1 % topical cream (Pandel) 1 applic topical Q12H PRN RASH/ITCHING 07/17/22 vitamin B complex and vitamin C no.20-folic acid 1 mg capsule 1 cap PO DAILY 07/17/22 albuterol sulfate 2.5 mg/3 mL (0.083 %) solution for nebulization 2.5 mg continuous nebulization Q4H PRN SOB/Wheezing 12/05/22 clopidogrel 75 mg tablet 75 mg PO DAILY #30 tabs 12/06/22 quetiapine 25 mg tablet 25 mg PO QHS MOOD 03/15/23 atorvastatin 20 mg tablet 40 mg (2 x 20 mg) PO DAILY CHOLESTEROL #1 TAB 03/16/23 Hospital Course Operations None Procedures None Summary of Care Provided Minutes Spent on Discharge: 35 Hospital Course: Per HPI: NICOLE SALVADOR, is a 88 F who presents from shelter with signs and symptoms consistent with a stroke. She was at dialysis when she developed left- sided weakness and confusion. Does appear that the confusion is resolved as is the left-sided weakness. Stroke alert was called and [facility] neurology recommended inpatient observation with further stroke work-up. She has had significant work- ups in the past with negative MRIs and she had a recent echo inJuly that demonstrated an EF of 65% with stage II diastolic dysfunction. She iscompletely asymptomatic and is alert and oriented person and place. No tPA was given. Hospital Course: 1. CVA rule out?88-year-old female with previous history of stroke and multipleepisodes of's CVA rule out presented to the hospital with similar strokelike symptoms with slurred speech. On arrival to the ER her symptoms had completely resolved and neurology recommended continued work-up. No echo was repeated as this was done in November and remained unchanged with an EF of 65% and stage II diastolic dysfunction. She is also had a fairly extensive work-up on previous admissions, she had a loop recorder that was negative for any A-fib a few years ago and she had also been worked up for seizures with an EEG which was also normal. MRI during this admission was unremarkable. I had a 20-minute conversation with the daughter on advance care planning in terms of her dementiaand dialysis in the setting of these repeated strokelike episodes. We will continue with her aspirin and Plavix and will increase her Lipitor from 20 mg daily to 40 mg daily. I discussed with the family about discharge plans and they expressed understanding of the risk benefits of going to the shelter and would like for her to be discharged today if possible. 2. End-stage renal disease on dialysis, anemia of chronic disease, hypothyroidism, hypertension, hyperlipidemia, chronic diastolic CHF are all chronic medical conditions which complicate her care. Her home medications werecontinued where appropriate, the only change was increasing her Lipitor from 20 mg to 40 mg p.o. daily Physical Exam Narrative General: Alert, Oriented x2, Cooperative, No apparent distress HEENT: Atraumatic, PERRLA, EOMI, Normocephalic Oral: Moist Mucosa Neck: Supple, No JVD Lungs: Diminished, Normal air movement, No rhonchi, No wheeze, No rales Cardiovascular: Regular rate, Regular Rhythm, Normal S1, Normal S2, No murmurs Abdomen: Soft, Non Tender, Non-Distended, No Hepato-splenomegaly Extremities: No edema, Capillary Refill Less than 3 Seconds Skin: No rashes, No breakdown Musculoskeletal: No Tenderness to Palpation of Joints or Extremities Neurological: Cranial nerves II-XII grossly intact, Motor Exam 5/5 strength throughout, Sensory exam intact to light touch and pain Psych/Mental Status: Normal Affect, Appropriate Weight / BMI Weight Weight: 155 lb 13.869 oz Body Mass Index (BMI) 27.6 ABG / Lab / Microbiology Data 03/16/23 05:12 03/16/23 05:12 Laboratory: Laboratory Results - last 24 hr 03/16/23 05:12: WBC 5.7, RBC 3.44 L, Hgb 10.0 L, Hct 31.7 L, MCV 92.2, MCH 29.1,MCHC 31.5 L, RDW Std Deviation 48.5 H, RDW Coeff of Lizett 14.5, Plt Count 140 L, MPV 11.8, Immature Gran % (Auto) 0.300, Neut % (Auto) 56.7, Lymph % (Auto) 28.6,Pender % (Auto) 9.9, Eos % (Auto) 3.5, Baso % (Auto) 1.0, Absolute Neuts (auto) 3.3, Absolute Lymphs (auto) 1.64, Nucleated RBC % 0, Sodium 139, Potassium 5.1, Chloride 104, Carbon Dioxide 29.0, Anion Gap 6, BUN 53 H, Creatinine 7.71 H*, Estim Creat Clear Calc 4.25, Est GFR (MDRD) Af Amer 6 L, Est GFR (MDRD) Non-Af 5L, BUN/Creatinine Ratio 6.9 L, Glucose 85, Calcium 8.1 L, Triglycerides 33, Cholesterol 101, LDL Cholesterol 34, VLDL Cholesterol 7, HDL Cholesterol 60 Radiography Diagnostic Testing: Radiology Impression Brain MRI 03/15/23 11:39 IMPRESSION: Involutional changes of the brain, as described above. Electronically Signed: Bulmaro Garner MD at 19:18 EDT , Meaningful Use Info Meaningful Use Diagnoses (Choose all that apply): None applicable Discharge Plan Admission Admit Date/Time: 03/15/23 12:24 Attending Provider: Micha Feliciano Primary Care Provider: Wayne Leahy [employer] Providers: Kianna Patrick Discharge Orders/Prescriptions Prescriptions: Continued levothyroxine 100 mcg tablet 100 mcg PO DAILY nifedipine 60 mg tablet extended release 60 mg PO DAILY timolol maleate 1 DROP drops 1 drp EACH EYE BID calcium acetate(phosphat bind) 667 MG capsule 1,334 mg PO TIDCM isosorbide mononitrate 60 MG tablet 60 mg PO SUMOWEFR Pandel 0.1 % Cream 1 applic TOPICAL Q12H PRN (Reason: RASH/ITCHING) Patient Comments: PRN PER MAR B complex with C 20-folic acid 1 mg Capsule 1 cap PO DAILY albuterol sulfate 90 mcg/actuation HFA aerosol inhaler 2 inh INHALATION Q4H PRN (Reason: Shortness Of Breath) Patient Comments: PRN PER MAR budesonide-formoterol 160-4.5 mcg/actuation Hfa Aerosol Inhaler 1 inh INHALATION QHS dextran 70-hypromellose 0.1-0.3 % Drops 1 drp ophthalmic (eye) QHS aspirin 81 MG tablet,delayed release (DR/EC) 81 mg PO DAILY albuterol sulfate 2.5 mg /3 mL (0.083 %) solution for nebulization 2.5 mg continuous nebulization Q4H PRN (Reason: SOB/Wheezing) Patient Comments: PRN PER MAR clopidogrel 75 mg Tablet 75 mg PO DAILY Qty: 30 5RF quetiapine 25 mg tablet 25 mg PO QHS Changed atorvastatin 20 mg Tablet 40 mg PO DAILY Qty: 1 0RF Referrals / Follow Up: Wayne Leahy Chi, MD [Primary Care Provider] - Disposition Disposition (needs filled in before D/C Order can be placed): Alf Facility Charges/Coding Visit Charges Inpatient E&M: 25351 Disch Hosp >30min 03/16/23 1437 <Electronically signed by Micha Feliciano MD> Cosigner Signature (if applicable): CC: Dr. Micha Feliciano MD; Dr. Wayne Leahy MD~ Signed [facility] Work Phone: Evaluation note* Diagnosis Onset Date Resolution Status Dementia acute Confusion resolved Slurred speech resolved Confusion acute Dementia acute ESRD on hemodialysis acute Left-sided weakness acute skilled nursing resident acute Essential hypertension chron ic [facility] Work Phone: Evaluation note* Diagnosis Onset Date Resolution Status Confusion acute Dementia acute ESRD on hemodialysis acute skilled nursing resident acute Essential hypertension chron ic Left-sided weakness resolved Dementia acute Polyneuropathy acute [facility] Work Phone: Evaluation note* Diagnosis Onset Date Resolution Status Dementia acute Polyneuropathy acute ESRD on hemodialysis acute Problem with dialysis access acute [facility] Work Phone: Hospital Discharge instructions Additional Instructions 1. Apply ice to your left arm and foot 6-10 times a day for 20 to 30 minutes per application. 2. You may feel worse over the next 24 to 48 hours. 3. You may hurt for several days up to a week. 4. [facility] Discharge instructions Additional Instructions Resume previous medications and routines. Tylenol as needed for pain. Weightbearing as tolerated with your walker. You may also use your wheelchair. Follow-up with orthopedics in approximately 1 week. You may require repeat x-rays.[facility] Work Phone: Summary Purpose Family History No Family History Records Found Relationship Condition Age at Onset Recorded Date/T genesis mother Malignant neoplasm of colon Unknown Hypertension Unknown father Hypertension Unknown Advance Directives No Advanced Directives Records Found Advance Directive Response Recorded Date/ Time Name of Medical Power of Corporate Associate Bernadette Salvador July 17, 2022 1:50pm Advance Directives No April 10:31am Living Will No July 17, 2 023 1:50pm Power of Corporate Associate Yes July 17, 2022 1:50pm Advance Directive Response Recorded Date/ Time Name of Medical Power of Corporate Associate BERNADETTE & ANTON- DAUGHTERS December 05, 2022 12:49pm Advance Directives No April 11:31am Living Will No December 05, 2022 12:49pm Power of Corporate Associate Yes December 05 12:49pm Advance Directive Response Recorded Date/ Time Name of Medical Power of Corporate Associate Mohsen Alcaraz (daughters) December 05, 2022 2:40pm Advance Directives No April 11:31am Living Will No December 05, 2022 2:40pm Power of Corporate Associate Yes December 05 2:40pm Advance Directive Response Recorded Date/ Time Name of Medical Power of Corporate Associate Bernadette Mohsen Salvador (daughters) December 05, 2022 2:40pm Name of Medical Power of Corporate Associate LIZZETTE MCLEANJOSÉBERNADETTE March 15, 2023 9:57am Advance Directives No April 11:31am Living Will No March 15 1:15pm Power of Corporate Associate No March 15, 2023 1:15pm Advance Directive Response Recorded Date/ Time Name of Medical Power of Corporate Associate VINAY ARPANBERNADETTE March 15, 2023 8:57am Advance Directives No April 10:31am Living Will No June 13 3:01pm Power of Corporate Associate No June 13, 2023 3:01pm Advance Directive Response Recorded Date/ Time Advance Directives No April 11:31am Living Will No August 03, 2023 2:24pm Power of Corporate Associate No August 02 2:24pm Advance Directive Response Recorded Date/ Time Name of Medical Power of Corporate Associate ARPAN MCLEAN CLAY PRICE-DAUGHTERS March 15, 2023 8:57am Advance Directives No April 10:31am Living Will No March 15 12:15pm Power of Corporate Associate No March 15, 2023 12:15pm Chief Complaint and Reason for Visit Chief Complaint 3 mos remote ILR f/u remote ILR f/u ISCHEMIC STROKE ISCHEMIC STROKE ISCHEMIC STROKE ISCHEMIC STROKE ISCHEMIC STROKE ISCHEMIC STROKE Reason for Visit Chronic diastolic (c ongestive) heart failure History of CVA (cerebrovascular accident) History of loop recorder Right bundle branch block (RBBB) with left anterior fascicular block TIA (transient ischemic attack) Chronic diastolic (congestive) heart failure History of CVA (cerebrovascular accident) History of loop recorder TIA (transient ischemic attack) Anemia Aphasia Dysarthria ESRD (end stage renal disease) on dialysis Facial droop Left-sided weakness Received intravenous tissue plasminogen activator (tPA) in emergency department Stroke Dementia End-stage renal disease (ESRD) Essential hypertension Hyperlipidemia Hypertension Chief Complaint S/p [facility] TIA Reason for Visit Chronic diastolic (c ongestive) heart failure End-stage renal disease (ESRD) Essential hypertension History of loop recorder Hyperlipidemia Confusion Slurred speech TIA (transient ischemic attack) Dementia End-stage renal disease (ESRD) Chief Complaint S/p [facility] TIA TIA (cardiology) TIA (cardiology) Reason for Visit Chronic diastolic (c ongestive) heart failure End-stage renal disease (ESRD) Essential hypertension History of loop recorder Hyperlipidemia Anemia Confusion ESRD (end stage renal disease) on dialysis Slurred speech TIA (transient ischemic attack) Dementia End-stage renal disease (ESRD) History of CVA (cerebrovascular accident) Hypertension Chief Complaint TIA TIA (cardiology) TIA (cardiology) CVA R/O CVA R/O CVA R/O Reason for Visit Dementia Confusion Slurred speech Confusion Dementia ESRD on hemodialysis Left-sided weakness skilled nursing resident Essential hypertension Chief Complaint CVA R/O CVA R/O CVA R/O Pacer Check Remote DEMENTIA EORDER FALL Reason for Visit Confusion Dementia ESRD on hemodialysis skilled nursing resident Essential hypertension Left-sided weakness Dementia Polyneuropathy Chief Complaint DEMENTIA EORDER FALL FISTULOGRAM - PROLONGED BLEEDING head injury, fall Reason for Visit Dementia Polyneuropathy ESRD on hemodialysis Problem with dialysis access Chief Complaint CVA R/O CVA R/O CVA R/O DEMENTIA EORDER Reason for Visit Confusion Dementia ESRD on hemodialysis skilled nursing resident Essential hypertension Left-sided weakness Dementia Polyneuropathy Additional Source Comments INFORMATION SOURCE (unrecogn ized section and content) DATE CREATED AUTHOR 12/16/2019 [employer] DATE CREATED AUTHOR AUTHOR'S ORGANIZ ATION 09/24/2024 [facility] Care Teams (unrecognized sec tion and content) Team Status: Active Member Role Status Dates Dr. Wayne Leahy MD Family Provider Active Dr. Wayne Lehay MD Primary Care Provider Active Team Status: Inactive Member Role Status Dates Dr. Wayne Leahy MD Primary Care Provider, Referring Provider Active Deborah Haider Attending Provider Active Team Status: Inactive Member Role Status Dates Dr. Wayne Leahy MD Primary Care Provider, Referring Provider Active Deborah Haider Active Dr. Chang Chandler MD Attending Provider Active Team Status: Active Member Role Status Dates Dr. Wayne Leahy MD Primary Care Provider Active Jey Benitez MD Emergency Provider Active Dr. Melody Patrick , DO Admit Provider, Attending Provide r, Other Provider Active Team Status: Active Member Role Status Dates Dr. Wayne Leahy MD Primary Care Provider Active Jey Benitez MD Emergency Provider Active Dr. Melody Patrick , DO Admit Provider, Other Provider Ac tive Dr. Kianna Patrick , DO Other Provider Active Dr. Michel Lee MD Other Provider Active Dr. Lonny Joseph , DO Attending Provider, Other Provide r Active Dr. Darnell García MD Other Provider Active Dr. Esteban Waddell MD Other Provider Active Mounika Mayes BOOKING CLERK, BOOKING CLERK-C Other Provider Active Team Status: Active Member Role Status Dates Dr. Wayne Leahy MD Primary Care Provider Active Jey Benitez MD Emergency Provider Active Dr. Melody Patrick , DO Admit Provider, Att ending Provider, Other Provider Active Dr. Kianna Patrick , DO Other Provider Active Dr. Michel Lee MD Other Provider Active Dr. Lonny Joseph , DO Other Provider Active Dr. Darnell García MD Other Provider Active Dr. Esteban Waddell MD Other Provider Active Mounika Mayes BOOKING CLERK, BOOKING CLERK-C Other Provider Active Team Status: Active Member Role Status Dates Dr. Wayne Leahy MD Primary Care Provider Active Jey Benitez MD Emergency Provider Active Dr. Melody Patrick , DO Admit Provider, Other Provider Ac tive Dr. Kianna Patrick , DO Other Provider Active Dr. Michel Lee MD Other Provider Active Dr. Lonny Joseph , DO Other Provider Active Dr. Darnell García MD Other Provider Active Dr. Esteban Waddell MD Other Provider Active Mounika Mayes BOOKING CLERK, BOOKING CLERK-C Other Provider Active Dr. Micha Feliciano MD Attending Provider, Other Provider Active Team Status: Active Member Role Status Dates Dr. Wayne Leahy MD Primary Care Provider Active Jey Benitez MD Emergency Provider Active Dr. Melody Patrick , DO Admit Provider, Other Provider Ac tive Dr. Kianna Patrick , DO Other Provider Active Dr. Michel Lee MD Attending Provider, Other Provid er Active Dr. Lonny Joseph , DO Other Provider Active Dr. Darnell García MD Other Provider Active Dr. Esteban Waddell MD Other Provider Active Mounika Mayes BOOKING CLERK, BOOKING CLERK-C Other Provider Active Dr. Micha Feliciano MD Other Provider Active Team Status: Active Member Role Status Dates Dr. Wayne Leahy MD Primary Care Provider Active Dr. Chang Chandler MD Attending Provider Active Team Status: Inactive Member Role Status Dates Dr. Wayne Leahy MD Primary Care Provider Active Jey Benitez MD Emergency Provider Active Dr. Melody Patrick , Admit Provider, Other Provider Ac tive Dr. Kianna Patrick , DO Other Provider Active Dr. Michel Lee MD Other Provider Active Dr. Lonny Joseph , DO Other Provider Active Dr. Darnell García MD Other Provider Active Dr. Esteban Waddell MD Other Provider Active Mounika Mayes BOOKING CLERK, BOOKING CLERK-C Other Provider Active Dr. Micha Feliciano MD Attending Provider Active Team Status: Inactive Member Role Status Dates Dr. Wayne Leahy MD Primary Care Provider, Referring Provider Active Dr. Chang Chandler MD Active Malia Dior PA, PA Attending Provider Active Team Status: Active Member Role Status Dates Dr. Wayne Leahy MD Primary Care Provider Active Jey Benitez MD Emergency Provider Active Dr. John Lutz MD Admit Provider, Attending Provid er Active Team Status: Active Member Role Status Dates Dr. Wayne Leahy MD Primary Care Provider Active Jey Benitez MD Emergency Provider Active Dr. John Lutz MD Admit Provider, Attending Provid er, Other Provider Active Team Status: Active Member Role Status Dates Dr. Wayne Leahy MD Primary Care Provider Active Jey Benitez MD Emergency Provider Active Dr. John Lutz MD Admit Provider, Other Provider A ctive Dr. Kianna Patrick , DO Other Provider Active Dr. Melody Patrick , DO Attending Provider, Other Provide r Active Team Status: Inactive Member Role Status Dates Dr. Wayne Leahy MD Primary Care Provider Active Jey Benitez MD Emergency Provider Active Dr. John Lutz MD Admit Provider, Other Provider A ctive Dr. Kianna Patrick , DO Other Provider Active Dr. Melody Patrick , DO Attending Provider Active Team Status: Active Member Role Status Dates Dr. Wayne Leahy MD Primary Care Provider Active Dr. Aristides Liriano MD Attending Provider Active Team Status: Active Member Role Status Dates Dr. Wayne Leahy MD Primary Care Provider Active Jey Benitez MD Emergency Provider Active Dr. Micha Feliciano MD Admit Provi vivian, Attending Provider, Other Provider Active Dr. Kianna Patrick DO Other Provider Active Team Status: Inactive Member Role Status Dates Dr. Wayne Leahy MD Primary Care Provider Active Jey Benitez MD Emergency Provider Active Dr. Micha Feliciano MD Admit Provider, Attending Provider Active Dr. Kianna Patrick DO Other Provider Active Team Status: Active Member Role Status Dates Dr. Wayne Leahy MD Family Provider Active Dr. Kishan Camejo MD Primary Care Provider Active Team Status: Inactive Member Role Status Dates Dr. Wayne Leahy MD Primary Care Provider, Referring Provider Active Dr. Elkin Presley MD Attending Provider Active Team Status: Inactive Member Role Status Dates Dr. Kishan Camejo MD Primary Care Provider Active Dr. Chang Chandler MD Attending Provider Active Team Status: Inactive Member Role Status Dates Dr. Kishan Camejo MD Primary Care Provider Active Dr. Elkin Presley MD Attending Provider, Referring Provider Active Team Status: Inactive Member Role Status Dates Dr. Kishan Camejo MD Primary Care Provider Active Dr. Jose Thapa MD Emergency Provider Active Team Status: Inactive Member Role Status Dates Dr. Kishan Camejo MD Primary Care Provider, Referring Provider Active Cleo ROBLERO PA-C Attending Provider Active Team Status: Inactive Member Role Status Dates Dr. Kishan Camejo MD Primary Care Provider Active Dr. Jose Thapa MD Attending Provider, Emergency Provi vivian Active Team Status: Inactive Member Role Status Dates Dr. Kishan Camejo MD Primary Care Provider Active Jey Benitez MD Emergency Provider Active Goals (unrecognized section and content) Goals may be documented in a n alternate sectionGoals may be documented in an alternate section FOR RECORDS PERTAINING TO PATIENTS WHO ARE [...] BE BASED ON THE PRIMARY CLINICAL RECORDS. [facility] [employer] [facility]. provides no warranty or guarantee of the accuracy or completeness of information in this document.
[2025-01-18 20:47] VITALS: BP 172/72; PULSE 88; RESP 16; O2SAT 99
[2025-01-18 21:23] LABS: Differential Comment SCANNED
[2025-01-18 21:37] LABS: Anion Gap 14 (5-15); BUN 64 mg/dL (4-19); BUN/Creat Ratio 10.4 RATIO (10-20); Calcium,Total 9.2 mg/dL (7.6-11.0); Carbon Dioxide 26.8 mmol/L (21.0-32.0); Chloride 93 mmol/L (98-108); Estimated Creatinine Clearance 5.19 ml/min (50-250); Glucose 113 mg/dL (70-99); Potassium 5.2 mmol/L (3.3-5.1)
[2025-01-18 22:00] VITALS: BP 147/76; PULSE 90; RESP 16; O2SAT 99
[2025-01-18] MEDS: Erythromycin Base 1 OPTH.TUBE 1 APPLIC LEFT EYE (23:37)
[2025-01-18] MEDS: HYDROcodone Bitartrate/Apap 5/325 Tablet PO (23:38)
[2025-01-18 23:42] VITALS: BP 175/74; PULSE 91; RESP 16; TEMP 36.7; O2SAT 99
== END 2025-01-18 23:51 | disposition home or self-care (01) ==
PROVIDERS: Emergency Provider Emergency Medicine; PCP Family Medicine; Visit Provider Emergency Medicine
DX: H10.9 Unspecified conjunctivitis (principal); I13.2 Hypertensive heart and chronic kidney disease with heart failure and with stage 5 chronic kidney disease, or end stage renal disease; N18.6 End stage renal disease; I50.32 Chronic diastolic (congestive) heart failure; F03.90 Unspecified dementia, unspecified severity, without behavioral disturbance, psychotic disturbance, mood disturbance, and anxiety; H54.7 Unspecified visual loss; E78.5 Hyperlipidemia, unspecified; Z90.710 Acquired absence of both cervix and uterus; Z99.2 Dependence on renal dialysis; Z86.73 Personal history of transient ischemic attack (TIA), and cerebral infarction without residual deficits; Z79.02 Long term (current) use of antithrombotics/antiplatelets; Z79.899 Other long term (current) drug therapy; Z98.41 Cataract extraction status, right eye; Z98.42 Cataract extraction status, left eye; H57.12 Ocular pain, left eye; Z83.511 Family history of glaucoma
CPT/HCPCS: 71045; 80048; 85025; 99285; A4216

== ENCOUNTER 2025-04-23 00:05 | Inpatient (IN) | payer MEDICARE, MEDICAID, SELFPAY ==
[2025-04-23] VITALS (26 sets, daily range): BP systolic 105–168; BP diastolic 40–69; PULSE 68–94; RESP 12–23; TEMP 36.1–37; O2SAT 94–100; BMI 21.2; BMI 19.3
--- NOTE | 2025-04-23 00:53 | CT_ITS ---
PROCEDURE: ABDOMEN/PELVIS W IV CONT ONLY 04/23/2025 REASON FOR EXAM: ABD PAIN /DIARRHEA TECHNIQUE: Procedure Code: [id number] Modality: CT Procedure: ABDOMEN/PELVIS W IV CONT ONLY Coronal and Sagittal reconstruction series were provided. CONTRAST: OMNIPAQUE 350 VOLUME: 100 mL One or more dose reduction techniques were used (e.g., Automated exposure control, adjustment of the mA and/or kV according to patient size, use of iterative reconstruction technique. RADIATION DOSE SUMMARY: CTDlvol: 9.91 mGy DLP: 488 mGycm COMPARISON: 11/01/2018. FINDINGS: Ileocolonic intussusception is noted. Secondary high-grade mechanical small-bowel obstruction. Further evaluation is suggested to exclude underlying neoplastic pathology. Prior hysterectomy. Bilateral basilar atelectatic pulmonary changes. Unchanged 2.6 cm nodule in the right lower lobe. Mild cardiomegaly, unchanged. Mild central pulmonary venous congestion. Scattered simple hepatic cysts are noted with the largest measuring 1.2 cm. Diffuse colonic diverticulosis. Unchanged chronic renal atrophy. Unchanged bilateral complex renal solid/cystic lesions, many of them contain calcifications with the largest on the right measuring 4.4 cm. Mild ascites is noted. Mild osteopenia. Moderate diffuse spondylosis. Grade 1 anterolisthesis of L4 on L5. Secondary moderate chronic concentric spinal canal stenosis. Normal gallbladder and extrahepatic biliary system. Normal spleen. Normal pancreas. Normal bilateral adrenal glands. There are no right renal calculi. There is no right hydronephrosis. Normal visualized right ureter. There are no left renal calculi. There is no left hydronephrosis. Normal visualized left ureter. The appendix is not visualized. There is no demonstrated peritoneal fluid. Mild calcified atheromatous plaques of the abdominal aorta. Normal inferior vena cava. Normal retroperitoneum. Normal urinary bladder. There is no pelvic mass lesion or lymphadenopathy. There is no pelvic fluid. CT/Abdomen/Pelvis W IV Cont ONLY IMPRESSION: Ileocolonic intussusception is noted. Secondary high-grade mechanical small-bowel obstruction. Further evaluation is suggested to exclude underlying neoplastic pathology. No evidence of perforation or pneumatosis intestinalis. Prior hysterectomy. Bilateral basilar atelectatic pulmonary changes. Unchanged 2.6 cm nodule in the right lower lobe. Mild cardiomegaly, unchanged. Mild central pulmonary venous congestion. Scattered simple hepatic cysts are noted with the largest measuring 1.2 cm. Diffuse colonic diverticulosis. Unchanged chronic renal atrophy. Unchanged bilateral complex renal solid/cystic lesions, many of them contain ca lcifications with the largest on the right measuring 4.4 cm. Mild ascites is noted. Mild osteopenia. Moderate diffuse spondylosis. Grade 1 anterolisthesis of L4 on L5. Secondary moderate chronic concentric spin al canal stenosis. Reading [facility]
[2025-04-23 01:34] LABS: Hematocrit 35.3 % (37-47); Hemoglobin 11.0 g/dL (12.0-15.0); Immature Granulocytes Count 0.050 X10^3/uL (0.0-0.0); Mean Corp Hgb Conc 31.2 g/dL (32-36); Mean Corpuscular Volume 86.1 fL (81-99); Mean Platelet Vol. 12.8 fl (6.2-12.0); NRBC Flagged by Analyzer 0.2 % (0-5); Platelet Count 169 K/mm3 (150-450); RBC Distribution Width CV 16.7 % (11.6-14.6); RBC Distribution Width SD 51.4 fl (35.1-43.9); Red Blood Count 4.10 M/mm3 (4.2-5.4); White Blood Count 10.6 K/mm3 (4.4-11.0)
[2025-04-23] MEDS: 0.9% Normal Saline (500mL Bag) 500 ML 999 ML IV (01:37)
--- OUTSIDE RECORDS SUMMARY | 2025-04-23 01:46 | XMS RPT_ITS | CCD ---
Author Organization [facility] Care Team Providers Care Metal Handler Name Role Phone PROVIDER, UNKNOWN Admitting Unavailable PROVIDER, UNKNOWN Attending Unavailable Dr. Wayne Leahy Chi Primary Care Provider Dr. Wayne Leahy Chi Referring Provider Deborah Haider Attending Provider Unavailable Dr. Chang Chandler Attending Provider MD Jey Benitez Emergency Provider Dr. Melody Patrick Admit Provider Dr. Melody Patrick Attending Provider Dr. Melody Patrick Other Provider Dr. Kianna Patrick Other Provider Dr. Michel Lee Other Provider Dr. Lonny Joseph Attending Provider Dr. Lonny Joseph Other Provider Dr. Darnell García Other Provider Dr. Esteban Waddell Other Provider Unavailab jose Mayes ORDER BUILDER LOADER, ORDER BUILDER LOADER-C Mounika Other Provider Dr. Michel Lee Attending Provider Dr. Micha Feliciano Other Provider Dr. Micha Feliciano Attending Provider Dr. Wayne Leahy Chi Primary Care Provider Dr. Wayne Leahy Chi Referring Provider Ovi ROBLERO, OSBALDO Chavarria Attending Provider MD Jey Benitez Emergency Provider Dr. John Lutz Admit Provider Unavailable Dr. John Lutz Attending Provider Unavailable Bolivar, Dr. Lopez Other Provider Unavailable Darnell, Dr. Hutchison Other Provider Dr. Melody Patrick Attending Provider Dr. Melody Patrick Other Provider Armond, Dr. Wayne Rawls Primary Care Provider Dr. Aristides Liriano Attending Provider Dr. Micha Feliciano Admit Provider Dr. Micha Feliciano Attending Provider Jodie, Dr. Micha Concepcion Other Provider Armond, Dr. Wayne Rawls Primary Care Provider MD Jey Benitez Emergency Provider Jodie, Dr. Micha Concepcion Admit Provider Dr. Micha Feliciano Attending Provider Dr. Micha Feliciano Other Provider Dr. Kianna Patrick Other Provider Dr. Kishan Camejo Primary Care Provider Dr. Chang Chandler Attending Provider Dr. Wayne Leahy Chi Referring Provider Dr. Elkin Presley Attending Provider Armond, Dr. Wayne Rawls Primary Care Provider Dr. Wayne Leahy Chi Referring Provider Dr. Elkin Presley Attending Provider Dr. Kishan Camejo Primary Care Provider Dr. Kishan Camejo Referring Provider ANABELA Wiseman Attending Provider Dr. Kishan Camejo MD Primary Care Provider [phone] Dr. Deric Maravilla MD Emergency Provider [phone] Camejo, Kishan Primary Care Unavailable Giuseppe, Lia Referring Unavailable Giuseppe, Lia Attending Unavailable Camejo, Kishan Primary Care Unavailable Camejo, Kishan Referring Unavailable Denise, Liliana Attending Unavailable Camejo, Kishan Referring Unavailable Camejo, Kishan Primary Care Unavailable Elkin Persley Attending Unavailable Camejo, Kishan Referring Unavailable Camejo, Kishan Primary Care Unavailable Denise, Liliana Attending Unavailable Joao, Jim Attending Unavailable Camejo, Kishan Primary Care Unavailable Denise, Liliana Referring Unavailable Joao, Jim Referring Unavailable Crane, Jim Attending Unavailable Joao, Jim Consulting Unavailable Camejo, Kishan Primary Care Unavailable Joao, Jim Consulting Unavailable Camejo, Kishan Primary Care Unavailable Darnell, Melody Admitting Unavailable Melody Patrick Attending Unavailable Darnell, Melody Consulting Unavailable Jopperi, Jim Referring Unavailable Denise, Liliana Attending Unavailable Darnell, Kianna Consulting Unavailable Jopperi, Jim Consulting Unavailable Jopperi, Jim Attending Unavailable Camejo, Kishan Primary Care Unavailable Ewa Pittman Attending Unavailabl e Crane, Jim Referring Unavailable Joao, Jim Attending Unavailable Camejo, Kishan Primary Care Unavailable Camejo, Kishan Primary Care Unavailable Denise, Liliana Referring Unavailable Denise, Liliana Attending Unavailable Camejo, Kishan Primary Care Unavailable Deric Maravilla Attending Unavailable Crane, Jim Attending Unavailable Camejo, Kishan Primary Care Unavailable Joao, Jim Consulting Unavailable Camejo, Kishan Primary Care Unavailable Jopperi, Jim Attending Unavailable Darnell, Melody Admitting Unavailable Darnell, Kianna Consulting Unavailable Darnell, Melody Consulting Unavailable Jolie Mosqueda Attending Unavailable Camejo, Kishan Primary Care Unavailable Camejo, Kishan Primary Care Unavailable Elkin Presley Referring Unavailable Elkin Presley Attending Unavailable Allergies Allergy Classification Reported Allergen(s) Allergy Type Date of Onset Reaction(s) Facility (8 sources) Erythromycin Drug Allergy 1 Rash [facility] (8 sources) Lisinopril Drug Allergy 1 Unknown [facility] (8 sources) Nonsteroidal Anti-inflammatory Compounds Allergy to substance 1 Other [facility] (9 sources) Salicylic Acid; Translations: [Salicylates] Drug Allergy 1 Other [facility] (1 source) PROTEIN IN URINE DRUG Allergy to substance 1 Other [facility] (1 source) Erythromycin Drug Allergy 5 [facility] (1 source) Lisinopril Drug Allergy 5 [facility] (1 source) NSAIDs Drug allergy (disorder) 5 [facility] Medications Current Medications Medication Drug Class(es) Dates Sig (Normalized) Sig (Original) acetaminophen 500 mg oral capsule (1 source) Start: 08-29-2023 take 1 capsule by mouth every six hours as needed for pain Acetaminophen 500 mg capsule Active 500 mg PO EVERY 6 HOURS as needed for fever or pain August 29, 2023 12:00am albuterol 0.83 mg/ml inhalation solution (20 sources) beta2-Adrenergic Agonist Start: 12-05-2022 Albuterol Sulfate 2.5 mg /3 mL (0.083 %) solution for nebulization Active 2.5 mg continuous nebulization Q4H as needed for SOB/Wheezing December 05, 2022 12:00am Start: 07-17-2022 Albuterol Sulf ate 90 mcg/actuation HFA aerosol inhaler Active 2 NMA INHALATION Q4H as needed for Shortness Of Breath July 17, 2022 1:00am Start: 07-17-2022 Albuterol Sulf ate Active 2 INH INHALATION Q4H July 17, 2022 1:00am Start: 01-12-2019 End: 01-16-2019 take 2.5 mg by inhalation every four hours as needed for wheezing Albuterol Sulfate 2.5 MG/3 ML solution for nebulization Discontinued 2.5 mg IH EVERY 4 HOURS NEEDED as needed for Sob &/Or Wheezing January 12, 2019 12:00am January 16, 2019 5:22pm Start: 01-12-2019 End: 01-16-2019 Albuterol Sulfate 1 INHALER inhaler Discontinued 2 NMA INHALATION EVERY 4 HOURS NEEDED as needed for Wheezing January 12, 2019 12:00am January 16, 2019 5:22pm Start: 01-12-2019 End: 01-16-2019 take 1 puff(s) by inhalation every four hours as needed Albuterol Sulfate Discontinued 2 PUFF INHALATION EVERY 4 HOURS NEEDED January 12, 2019 12:00am January 16, 2019 5:22pm Start: 12-27-2014 End: 10-20-2018 take 2.5 mg by inhalation every two hours as needed for dyspnea Albuterol Sulfate 2.5 MG/3 ML solution for nebulization Discontinued 2.5 mg INHALATION EVERY 2 HOURS NEEDED as needed for DYSPNEA, WHEEZING 1 0 May 20, 2016 1:20pm October 20, 2018 2:15pm atorvastatin 20 mg oral tablet (20 sources) HMG-CoA Reductase Inhibitor Start: 03-16-2023 take 2 tablets by mouth once daily Atorvastatin 20 mg Tablet Active 40 mg PO DAILY 1 March 16, 2023 11:48am CHOLESTEROL Start: 03-16-2023 take 40 mg by mouth once daily Atorvastatin Active 40 MG PO DAILY March 16, 2023 11:48am Start: 07-17-2022 End: 03-16-2023 take 1 tablet by mouth once daily Atorvastatin 20 mg Tablet Discontinued 20 mg PO DAILY July 17, 2022 1:00am March 16, 2023 11:48am CHOLESTEROL Start: 02-02-2018 End: 03-12-2020 take 1 tablet by mouth at bedtime Atorvastatin 40 MG tablet Discontinued 40 mg PO AT BEDTIME 30 2 February 02, 2018 12:00am March 12, 2020 11:22am Start: 07-20-2015 End: 02-02-2018 take 1 tablet by mouth at bedtime Atorvastatin 20 MG tablet Discontinued 20 mg PO AT BEDTIME July 20, 2015 1:00am February 02, 2018 11:10am Start: 12-27-2014 End: 07-20-2015 take 1 tablet by mouth at bedtime Atorvastatin 80 MG tablet Discontinued 80 mg PO AT BEDTIME 30 0 December 27, 2014 12:00am July 20, 2015 1:43pm Start: 12-26-2014 End: 12-27-2014 take 1 tablet by mouth at bedtime Atorvastatin 20 MG tablet Discontinued 20 mg PO AT BEDTIME December 26, 2014 12:00am December 27, 2014 3:34pm B Complex With C 20-Folic Acid (7 sources) Start: 07-17-2022 take 1 capsule by mouth once daily B Complex With C 20-Folic Acid Active 1 CAP PO DAILY July 17, 2022 1:00am Start: 07-17-2022 take 1 capsule by mo [facility] once daily B Complex With C 20-Folic Acid Active 1 CAP PO DAILY July 17, 2022 12:00am B Complex-Vitamin C-Folic Acid (Nephro-Jean Paul) 0.8 mg tablet (1 source) Start: 07-03-2024 B Complex-Damaris min C-Folic Acid (Nephro-Jean Paul) 0.8 mg tablet Active 1 {tbl} DAILY July 03, 2024 1:00am bisacodyl 10 mg rectal suppository (1 source) Stimulant Laxative Start: 08-29-2023 Bisacodyl 1 0 mg suppository Active 10 mg RC DAILY as needed for constipation August 29, 2023 12:00am Budesonide-Formoterol (20 sources) Corticosteroid, beta2-Adrenergic Agonist Start: 07-17-2022 Budesonide-Formotero l 160-4.5 mcg/actuation Hfa Aerosol Inhaler Active 1 NMA INHALATION AT BEDTIME July 17, 2022 1:00am SHORTNESS OF BREATH Start: 07-17-2022 End: 08-16-2022 Budesonide-Formoterol 160-4. 5 mcg/actuation Hfa Aerosol Inhaler Discontinued 1 NMA INHALATION DAILY July 17, 2022 1:00am August 16, 2022 1:14pm SHORTNESS OF BREATH Start: 07-17-2022 End: 08-16-2022 Budesonide-Formoterol Discon tinued [...] 17, 2022 12:00am Start: 01-12-2019 End: 01-16-2019 Budesonide-Formoterol 1 INHA LER inhaler Discontinued 1 NMA INHALATION DAILY as needed for Sob &/Or Wheezing January 12, 2019 12:00am January 16, 2019 5:22pm Start: 01-12-2019 End: 01-16-2019 take 1 puff(s) by inhalation once daily Budesonide-Formoterol Discontinued 1 PUFF INHALATION DAILY January 12, 2019 12:00am January 16, 2019 5:22pm Start: 07-20-2015 End: 10-20-2018 Budesonide-Formoterol 1 INHA LER inhaler Discontinued 1 NMA INHALATION DAILY NEEDED as needed for Sob &/Or Wheezing July 20, 2015 1:00am October 20, 2018 2:14pm Start: 07-20-2015 End: 10-20-2018 take 1 puff(s) by inhalation once daily as needed Budesonide-Formoterol Discontinued 1 PUFF INHALATION DAILY NEEDED July 20, 2015 1:00am October 20, 2018 2:14pm clopidogrel 75 mg oral tablet (20 sources) [id number] Platelet Inhibitor Start: 12-06-2022 take 1 tablet by mouth once daily Clopidogrel 75 mg Tablet Active 75 mg PO DAILY 30 5 December 06, 2022 12:00am anti platelet Start: 10-27-2019 End: 11-17-2019 Clopidogrel 75 MG tablet Discontinued 75 mg PO DAILY 21 0 October 27, 2019 12:00am November 16, 2019 12:00am November 17, 2019 12:02am Continue for 3 weeks then DC and continue aspirin only. Start: 12-27-2014 End: 10-20-2018 take 1 tablet by mouth once daily Clopidogrel 75 MG tablet Discontinued 75 mg PO DAILY 30 0 July 31, 2015 9:54pm October 20, 2018 2:14pm Dextran (14 sources) Start: 07-17-2022 End: 08-16-2022 [...] DRP OPHTHALMIC DAILY July 17, 2022 12:00am Dextran 70-Hypromellose 0.1- 0.3 % Drops (2 sources) Start: 07-17-2022 Dextran 70-Hyp romellose 0.1-0.3 % Drops Active 1 NMA OPHTHALMIC AT BEDTIME July 17, 2022 1:00am eye health Start: 07-17-2022 End: 08-16-2022 Dextran 70-Hypromellose 0.1- 0.3 % Drops Discontinued 1 NMA OPHTHALMIC DAILY July 17, 2022 1:00am August 16, 2022 1:14pm donepezil hydrochloride 10 mg oral tablet (1 source) Start: 08-29-2023 take 1 tablet by mouth once daily Donepezil 10 mg tablet Active 10 mg PO DAILY August 29, 2023 12:00am mentation Food Supplemt, Lactose-Reduced (Ensure Plus High Protein) 0.08 gram-1.5 kcal/mL Liquid (1 source) Start: 07-05-2024 Food Supplemt, Lactose-Reduced (Ensure Plus High Protein) 0.08 gram-1.5 kcal/mL Liquid Active 120 mL PO 4 TIMES DAILY 0 0 July 05, 2024 1:00am 24 hr isosorbide mononitrate 60 mg extended release oral tablet (16 sources) Nitrate Vasodilator Start: 01-16-2019 End: 10-26-2019 Isosorbide Mononitrate 60 MG tablet Active 60 mg PO SUMOWEFR October 26, 2019 1:28pm HTN levothyroxine sodium 0.1 mg oral tablet (20 sources) l-Thyroxine Start: 07-31-2019 take 1 tablet by mouth once daily Levothyroxine 100 mcg tablet Active 100 ug PO DAILY July 31, 2019 12:00am thyroid Start: 01-29-2018 End: 07-31-2019 take 2 tablets by mouth once daily Levothyroxine 50 MCG tablet Discontinued 100 ug PO DAILY January 29, 2018 9:31am July 31, 2019 10:15am Start: 01-29-2018 End: 07-31-2019 take 100 ug by mouth once daily Levothyroxine Disconti nued 100 MCG PO DAILY January 29, 2018 9:31am July 31, 2019 10:15am Start: 07-20-2015 End: 07-31-2015 take 1 tablet by mouth once daily Levothyroxine (Levoxyl) 75 MCG tablet Discontinued 75 ug PO DAILY July 20, 2015 1:00am July 31, 2015 9:53pm Start: 12-26-2014 End: 01-29-2018 Levothyroxine 50 MCG tablet Discontinued 50 ug PO SuTuThSa@0600 0 0 July 31, 2015 1:00am January 29, 2018 9:32am Magnesium Hydroxide (9 sources) Start: 08-29-2023 take 1 mL by mouth o nce daily as needed for constipation Magnesium Hydroxide (Milk Of Magnesia) 400 mg/5 mL suspension Active 5 mL PO DAILY as needed for constipation August 29, 2023 12:00am Start: 07-14-2019 End: 07-31-2019 take 1 mL by mouth once daily as needed for constipation Magnesium Hydroxide 30 ML suspension Discontinued 30 mL PO DAILY NEEDED as needed for Constipation July 14, 2019 1:00am July 31, 2019 10:16am Start: 07-14-2019 End: 07-31-2019 take 1 mL by mouth once daily as needed Magnesium Hydroxide Discontinued 30 ML PO DAILY NEEDED July 14, 2019 1:00am July 31, 2019 10:16am memantine hydrochloride 5 mg oral tablet (3 sources) U-ldpkgn-H-aspartate Receptor Antagonist Start: 03-12-2024 take 1 tablet by mouth twice daily Memantine 5 mg tablet Active 5 mg PO TWICE A DAY March 12, 2024 12:00am mentation Start: 09-12-2023 End: 03-12-2024 take 1 capsule by mouth once daily Memantine 14 mg capsule,sprinkle,ER 24hr Discontinued 14 mg PO DAILY 30 7 September 12, 2023 12:00am March 12, 2024 3:22pm Week #2 and afterward Start: 09-12-2023 End: 03-12-2024 take 1 capsule by mouth once daily Memantine 7 mg capsule,sprinkle,ER 24hr Discontinued 7 mg PO DAILY 7 0 September 12, 2023 12:00am March 12, 2024 2:01pm Week #1 mineral oil 1000 mg/ml enema (2 sources) Start: 08-29-2023 End: 09-12-2023 Mineral Oil (Fleet Mineral Oil) enema Active 118 mL RC DAILY as needed for constipation September 12, 2023 12:00am discard any unused portion Rectally every 24 hours as needed for constipation Once daily administer after once daily if no BM 8 hours after receiving suppository, If NO BM WITHIN 1 HOUR AFTER RECEIVNG ENEMA NOTIFY 24 hr NIFEdipine 60 mg extended release oral tablet (16 sources) Dihydropyridine Calcium Channel Cecilia Start: 05-12-2021 take 1 tablet by mouth once daily Nifedipine 60 mg tablet extended release Active 60 mg PO DAILY May 12, 2021 1:00am BLOOD PRESSURE Start: 03-12-2020 End: 11-03-2020 take 1 tablet by mouth once daily Nifedipine 30 mg tablet extended release Discontinued 30 mg PO DAILY March 12, 2020 12:00am November 03, 2020 1:58pm sevelamer carbonate 800 mg oral tablet (1 source) Phosphate Binder Start: 07-03-2024 take 1 tablet by mouth three times daily Sevelamer Carbonate 800 mg tablet Active 800 mg PO THREE TIMES A DAY July 03, 2024 1:00am kidney disease preservative-free timolol 5 mg/ml ophthalmic solution (8 sources) beta-Adrenergic Cecilia Start: 11-26-2015 Timolol Maleate 1 DROP drops Active 1 NMA EACH EYE TWICE A DAY November 26, 2015 12:00am GLAUCOMA Start: 11-26-2015 Timolol Maleat e Active 1 DRP EACH EYE TWICE A DAY November 26, 2015 12:00am Completed/Discontinued Medications Medication Drug Class(es) Dates Sig (Normalized) Sig (Original) acetaminophen 325 mg / HYDROcodone bitartrate 5 mg oral tablet (16 sources) Opioid Agonist Start: 04-03-2019 End: 04-08-2019 Hydrocodone-Acetamino phen 1 TABLET tablet Discontinued 1 {tbl} PO EVERY 6 HOURS NEEDED as needed for Pain 15 4 0 April 03, 2019 April 06, 2019 1:00am April 08, 2019 1:08am Postoperative pain Other acute postprocedural pain Start: 04-03-2019 End: 04-08-2019 take 1 tablet by mouth every six hours as needed Hydrocodone-Acetaminophen Discontinued 1 TABLET PO EVERY 6 HOURS NEEDED 15 4 April 03, 2019 April 08, 2019 1:08am Start: 02-19-2019 End: 02-28-2019 Hydrocodone-Acetaminophen 1 TABLET tablet Discontinued 1 {tbl} PO EVERY 6 HOURS NEEDED as needed for Pain 5 3 0 February 19, 2019 February 21, 2019 12:00am February 28, 2019 12:08am Postoperative pain Other acute postprocedural pain Start: 02-19-2019 End: 02-28-2019 take 1 tablet by mouth every six hours as needed Hydrocodone-Acetaminophen Discontinued 1 TABLET PO EVERY 6 HOURS NEEDED 5 3 February 19, 2019 February 28, 2019 12:08am amLODIPine 5 mg oral tablet (16 sources) Dihydropyridine Calcium Channel Cecilia Start: 01-16-2019 End: 10-26-2019 take 1 tablet by mouth once daily Amlodipine 5 MG tablet Discontinued 5 mg PO DAILY 0 January 16, 2019 12:00am October 26, 2019 1:29pm Start: 12-26-2014 End: 01-16-2019 take 1 tablet by mouth once daily Amlodipine 10 MG tablet Discontinued 10 mg PO DAILY December 26, 2014 12:00am January 16, 2019 5:22pm aspirin 81 mg delayed release oral tablet (20 sources) Platelet Aggregation Inhibitor, Nonsteroidal Anti-inflammatory Drug Start: 07-22-2015 End: 08-01-2024 take 1 tablet by mouth once daily Aspirin 81 MG tablet,delayed release (DR/EC) Discontinued 81 mg PO DAILY July 17, 2022 1:59pm August 01, 2024 2:31pm HEART HEALTH Start: 12-26-2014 End: 12-27-2014 take 1 tablet by mouth once daily Aspirin 81 MG Tab.Chew Discontinued 81 mg PO DAILY@0800 December 26, 2014 12:00am December 27, 2014 3:34pm B Complex And C 20-Folic Aci d 1 mg Capsule (1 source) Start: 07-17-2022 End: 09-12-2023 B Complex And C 20-Folic Aci d 1 mg Capsule Discontinued 1 NMA PO DAILY July 17, 2022 1:00am September 12, 2023 1:37pm calcium acetate 667 mg oral capsule (8 sources) Start: 07-14-2019 End: 07-03-2024 Calcium Acetate(Phosphat Bin d) 667 MG capsule Discontinued 1334 mg PO 3 TIMES DAILY WITH MEALS July 14, 2019 1:00am July 03, 2024 6:42pm RENAL DIALYSIS Start: 07-14-2019 take 1334 mg by mout h three times daily at mealtime Calcium Acetate(Phosphat Bind) Active 1334 MG PO 3 TIMES DAILY WITH MEALS July 14, 2019 1:00am cefdinir 300 mg oral capsule (8 sources) Cephalosporin Antibacterial Start: 01-12-2019 End: 01-16-2019 take 1 capsule by mouth once daily Cefdinir 300 MG capsule Discontinued 300 mg PO DAILY January 12, 2019 12:00am January [...] Supplemt, Lactose-Reduced (Ensure Complete) 120 ML Liquid (8 sources) Start: 12-27-2014 End: 07-31-2015 take 1 mL by mouth four times daily Food Supplemt, Lactose-Reduced (Ensure Complete) 120 ML Liquid Discontinued 120 mL PO 4 TIMES DAILY 30 0 December 27, 2014 12:00am July 31, 2015 [...] 26, 2014 11:00pm July 31, 2015 8:54pm Food Supplemt, Lactose-Reduced 120 ML liquid (1 source) Start: 05-20-2016 End: 10-20-2018 take 1 mL by mouth four times daily Food Supplemt, Lactose-Reduced 120 ML liquid Discontinued 120 mL PO 4 TIMES DAILY 30 0 May 20, 2016 1:00am October 20, 2018 2:13pm glycerin 2 mg/ml / hypromellose 2 mg/ml / polyethylene glycol 400 10 mg/ml ophthalmic solution (8 sources) Non-Standardiz ed Chemical Allergen Start: 05-18-2019 End: 07-31-2019 take 15 mL into the eye(s) every two hours as needed Peg [id number] charisma 15 ML drops Discontinued 1 NMA OP EVERY 2 HOURS NEEDED as needed for Dry Eye 15 0 May 18, 2019 11:53pm July 31, 2019 10:21am guaiFENesin 20 mg/ml oral solution (16 sources) Start: 05-20-2016 End: 10-20-2018 take 1 mL by mouth every six hours as needed for cough Guaifenesin 10 ML liquid Discontinued 10 mL PO EVERY 6 HOURS NEEDED as needed for Cough 1 0 May 20, 2016 1:24pm October 20, 2018 2:13pm Start: 05-20-2016 End: 10-20-2018 take 1 mL by mouth every six hours as needed Guaifenesin Discontinued 10 ML PO EVERY 6 HOURS NEEDED May 20, 2016 12:24pm October 20, 2018 1:13pm handicap placcard (8 sources) Start: 03-12-2020 End: 03-15-2023 handicap placcard Discontinu ed 0 .ROUTE .COMPLEX 1 0 March 12, 2020 12:00am March 15, 2023 11:42am Duration: lifetime Diagnosis: CVA, debility Start: 03-12-2020 End: 03-15-2023 handicap placcard Discontinu ed 0 .ROUTE .COMPLEX 1 March 11, 2020 11:00pm March 15, 2023 [...] 2020 11:00pm Duration: lifetime Diagnosis: CVA, debility Hydrocortisone (8 sources) Corticosteroid Start: 07-17-2022 End: 07-03-2024 Hydrocortisone Probutate (Pa ndel) 0.1 % Cream Discontinued 1 NMA TOPICAL Q12H as needed for RASH/ITCHING July 17, 2022 1:00am July 03, 2024 6:43pm Start: 07-17-2022 Hydrocortisone Probutate (Pandel) 0.1 % Cream Active 1 APPLIC TOPICAL Q12H July 17, 2022 12:00am Start: 07-17-2022 Hydrocortisone Probutate (Pandel) 0.1 % Cream Active 1 APPLIC TOPICAL Q12H July 17, 2022 1:00am Start: 07-17-2022 Hydrocortisone Probutate (Pandel) 0.1 % Cream Active 1 APPLIC TOPICAL Q12H July 17, 2022 1:00am latanoprost 0.05 mg/ml ophthalmic solution (8 sources) Prostaglandin Analog Start: 10-26-2019 End: 03-15-2023 Latanoprost 1 DROP bottle Discontinued 1 NMA RIGHT EYE AT BEDTIME October 26, 2019 12:00am March 15, 2023 11:42am GLAUCOMA Start: 10-26-2019 End: 03-15-2023 Latanoprost Discontinued 1 D RP RIGHT EYE AT BEDTIME October 26, 2019 12:00am March 15, 2023 11:42am levETIRAcetam 500 mg oral tablet (16 sources) Start: 10-29-2019 End: 11-03-2020 take 2 tablets by mouth at bedtime Levetiracetam 500 MG tablet Discontinued 1000 mg PO AT BEDTIME December 15, 2019 11:32am November 03, 2020 1:58pm Start: 10-29-2019 End: 11-03-2020 take 1000 mg by mouth at bedtime Levetiracetam Discontinued 1000 MG PO AT BEDTIME December 15, 2019 10:32am November 03, 2020 12:58pm lidocaine 25 mg/ml / prilocaine 25 mg/ml topical cream (8 sources) Antiarrhythmic, Amide Local Anesthetic Start: 07-17-2022 End: 03-15-2023 Lidocaine-Prilocaine 2.5-2.5 % Cream Discontinued 1 NMA TOPICAL TUTA July 17, 2022 1:00am March 15, 2023 11:43am DIALYSIS Start: 07-17-2022 End: 03-15-2023 Lidocaine-Prilocaine Discont inued 1 APPLIC TOPICAL TUTA July 17, 2022 1:00am March 15, 2023 11:43am methazolAMIDE 50 mg oral tablet (16 sources) Start: 07-20-2015 End: 07-31-2015 take 1 tablet by mouth twice daily Methazolamide (Neptazane) 50 MG tablet Discontinued 50 mg PO TWICE A DAY 0 0 July 22, 2015 3:23pm July 31, 2015 9:54pm Hold it the low serum creatinine comes back to baseline. The pharmacist, Mr. Bebeto Le will follow with her creatinine metoprolol tartrate 50 mg oral tablet (20 sources) beta-Adrenergi c Cecilia Start: 01-16-2019 End: 09-19-2019 take 1 tablet by mouth twice daily Metoprolol Tartrate 50 MG tablet Discontinued 50 mg PO TWICE A DAY July 14, 2019 12:15pm September 19, 2019 11:23am Start: 02-02-2018 End: 01-16-2019 Metoprolol Tartrate 25 MG ta blet Discontinued 12.5 mg PO TWICE A DAY 21 06February 02, 2018 12:00am January 16, 2019 5:22pm take half a tablet every 12 hours Start: 02-02-2018 End: 01-16-2019 Metoprolol Tartrate Disconti nued 12.5 MG PO TWICE A DAY February 02, 2018 12:00am January 16, 2019 5:22pm take half a tablet every 12 hours montelukast 10 mg oral tablet (8 sources) Leukotriene Receptor Antagonist Start: 07-20-2015 End: 01-16-2019 take 1 tablet by mouth once daily Montelukast 10 MG tablet Discontinued 10 mg PO DAILY July 20, 2015 1:00am January [...] ML PO DIRECTED July 17, 2022 12:00am Nutritional Supplements Liquid (1 source) Start: 07-17-2022 End: 03-15-2023 Nutritional Supplements Liquid Discontinued 237 mL PO DIRECTED July 17, 2022 1:00am March 15, 2023 11:43am SUPPLEMENT predniSONE 20 mg oral tablet (20 sources) Start: 05-20-2016 End: 05-20-2016 take 2 tablets by mouth once daily Prednisone 20 MG tablet Discontinued 40 mg PO DAILY@0800 5 0 May 20, 2016 2:19pm May 20, 2016 2:21pm Start: 05-20-2016 End: 05-20-2016 take 40 mg by mouth once daily Prednisone Discontinued 40 MG PO DAILY@0800 5 May 20, 2016 1:19pm May 20, 2016 1:21pm QUEtiapine 25 mg oral tablet (5 sources) Atypical Antipsychotic Start: 03-15-2023 End: 05-02-2023 take 1 tablet by mouth at bedtime Quetiapine 25 mg tablet Discontinued 25 mg PO AT BEDTIME March 15, 2023 12:00am May 02, 2023 10:38am MOOD sodium phosphate, dibasic 59.3 mg/ml / sodium phosphate, monobasic 161 mg/ml enema (8 sources) Start: 07-14-2019 End: 07-31-2019 Sodium Phosphates 133 ML enema Discontinued 133 mL RC DAILY NEEDED as needed for Constipation July 14, 2019 1:00am July 31, 2019 10:20am Start: 07-14-2019 End: 07-31-2019 Sodium Phosphates Discontinu ed 133 ML RC DAILY NEEDED July 14, 2019 1:00am July 31, 2019 10:20am Problems Active Problems Problem Classification Problem Date Documented Date Episodic/Chronic Acute cerebrovascular disease (9 sources) Cerebrovascular accident; Translations: [Cerebral infarction, unspecified] 07-17-2022 Chronic Administrative/social admission (9 sources) Lives in a group home; Translations: [Problems related to living in residential institution] 03-16-2023 Episodic Blindness and vision defects (1 source) Sudden visual loss of left eye; Translations: [Sudden visual loss, left eye] 01-18-2025 Episodic Chronic kidney disease (20 sources) Chronic renal failure; Translations: [Chronic kidney disease, stage 5] 07-31-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 Complication of device; implant or graft (20 sources) Dialysis finding; Translations: [Other specified complication of vascular prosthetic devices, implants and grafts, initial encounter] Onset: 06-27-2024 09-18-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 Complication of device; implant or graft (2 sources) Disorder of surgical arteriovenous fistula; Translations: [Other mechanical complication of surgically created arteriovenous fistula, initial encounter] 05-30-2024 Episodic Conduction disorders (9 sources) Right bundle branch block AND left anterior fascicular block; Translations: [Bifascicular block] 10-26-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 Congestive heart failure; nonhypertensive (12 sources) Chronic diastolic heart failure; Translations: [Chronic diastolic (congestive) heart failure] 09-18-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 Deficiency and other anemia (8 sources) Anemia; Translations: [Anemia, unspecified] 07-19-2022 Episodic Deficiency and other anemia (8 sources) Iron deficiency anemia; Translations: [Iron deficiency anemia, unspecified] 10-26-2019 Episodic Deficiency and other anemia (2 sources) Anemia, unspecified; Translations: [Anemia, unspecified] 07-19-2022 Episodic Delirium, dementia, and amnestic and other cognitive disorders (18 sources) Dementia; Translations: [Unspecified dementia without behavioral disturbance] 10-26-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 Disorders of lipid metabolism (11 sources) Hyperlipidemia; Translations: [Hyperlipidemia, unspecified] 10-26-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 E Codes: Fall (5 sources) Falling injury; Translations: [Unspecified fall, initial encounter] 06-13-2023 Episodic Essential hypertension (20 sources) Essential hypertension; Translations: [Essential (primary) hypertension] 07-17-2022 Chronic Fracture of neck of femur (hip) (1 source) Fracture of greater trochanter; Translations: [Displaced fracture of greater trochanter of unspecified femur, initial encounter for closed fracture] 08-29-2023 Episodic Inflammation; infection of eye (except that caused by tuberculosis or sexually transmitteddisease) (1 source) Conjunctivitis; Translations: [Unspecified conjunctivitis] 01-18-2025 Episodic Malaise and fatigue (12 sources) Left hemiparesis; Translations: [Weakness] 07-17-2022 Episodic Other circulatory disease (8 sources) History of cardiovascular surgery; Translations: [Presence of other cardiac implants and grafts] 05-05-2021 Chronic Other circulatory disease (3 sources) Arteriovenous fistula of left upper extremity; Translations: [Arteriovenous fistula, acquired] 06-13-2023 Chronic Other circulatory disease (1 source) Arteriovenous fistula; Translations: [Arteriovenous fistula, acquired] 07-13-2024 Chronic Other circulatory disease (1 source) Arteriovenous fistula, acquired; Translations: [Arteriovenous fistula, acquired] Onset: 07-11-2024 Chronic Other circulatory disease (1 source) Low blood pressure; Translations: [Hypotension, unspecified] 07-13-2024 Episodic Other circulatory disease (1 source) History of transient ischemic attack; Translations: [Personal history of transient ischemic attack (TIA), and cerebral infarction without residual deficits] 03-12-2024 Episodic Other congenital anomalies (8 sources) Congenital anomaly of eye; 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, 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-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 Other connective tissue disease (8 sources) Neurological symptom; Translations: [Unspecified symptoms and signs involving the nervous system] 08-03-2019 Episodic Other connective tissue disease (8 sources) Weakness of face muscles; Translations: [Facial weakness] 07-17-2022 Episodic Other connective tissue disease (1 source) Facial weakness; Translations: [Facial weakness] 07-19-2022 Episodic Other eye disorders (1 source) Disorder of eye region; Translations: [Ocular pain, unspecified eye] 01-18-2025 Episodic Other eye disorders (1 source) Ocular pain, left eye; Translations: [Ocular pain, left eye] Onset: 01-24-2025 Episodic Other hematologic conditions (8 sources) High troponin I level; Translations: [Other specified abnormalities of plasma proteins] 07-31-2019 Episodic Other injuries and conditions due to external causes (2 sources) Injury of head; Translations: [Unspecified injury of head, initial encounter] 08-03-2023 Episodic Other lower respiratory disease (16 sources) Dyspnea; Translations: [Shortness of breath] 09-18-2019 Episodic Comment on above: DUE TO DIASTOLIC CHF Other lower respiratory disease (8 sources) Cough; Translations: [Cough] 09-18-2019 Episodic Other nervous system disorders (8 sources) Aphasia; Translations: [Aphasia] 07-17-2022 Chronic Other nervous system disorders (1 source) Aphasia; Translations: [Aphasia] 07-19-2022 Chronic Other nervous system disorders (4 sources) Polyneuropathy; Translations: [Polyneuropathy, unspecified] 05-02-2023 Chronic Other nervous system disorders (4 sources) Polyneuropathy, unspecified; Translations: [Unspecified hereditary and idiopathic peripheral neuropathy] Onset: 04-03-2024 05-02-2023 Chronic Other nervous system disorders (16 sources) Dysarthria; Translations: [Dysarthria and anarthria] 07-17-2022 Episodic Other nervous system disorders (1 source) Dysarthria and anarthria; Translations: [Dysarthria] 07-19-2022 Episodic Other nervous system disorders (7 sources) Slurred speech; Translations: [Slurred speech] 12-05-2022 Episodic Other nervous system disorders (3 sources) Slurred speech; Translations: [Other speech disturbance] 12-05-2022 Episodic Other nervous system disorders (1 source) H/O: glaucoma; Translations: [Personal history of other diseases of the nervous system and sense organs] 01-18-2025 Episodic Residual codes; unclassified (8 sources) Medication given; Translations: [Status post administration [...] current facility] 07-19-2022 Chronic Residual codes; unclassified (12 sources) Confusional state; Translations: [Disorientation, unspecified] 12-05-2022 Episodic Residual codes; unclassified (6 sources) Disorientation, unspecified; Translations: [Unspecified psychosis] 12-05-2022 Episodic Respiratory failure; insufficiency; arrest (adult) (9 sources) Hypoxemic respiratory failure; Translations: [Respiratory failure, unspecified with hypoxia] 09-18-2019 Episodic Screening and history of mental health and substance abuse codes (1 source) H/O: dementia; Translations: [Personal history of other mental and behavioral disorders] 01-18-2025 Episodic Sprains and strains (8 sources) Strain of trapezius muscle; Translations: [Strain of other muscles, fascia and tendons at shoulder and upper arm level, unspecified arm, initial encounter] 01-10-2019 Episodic Superficial injury; contusion (5 sources) Contusion of left foot; Translations: [Contusion of left foot, initial encounter] 06-13-2023 Episodic Transient cerebral ischemia (19 sources) Transient cerebral ischemia; Translations: [Transient cerebral ischemic attack, unspecified] Onset: 10-22-2019 05-05-2021 Chronic Unclassified (1 source) Call Dr. Avila first thing tomorrow morning at 8 AM he will work to get her in his office before she has dialysis to evaluate that high further. Past or Other Problems Problem Classification Problem Date Documented Date Episodic/Chronic Other circulatory disease (8 sources) History of cerebrovascular accident; Translations: [Personal history of transient ischemic attack (TIA), and cerebral infarction without residual deficits] Onset: 12-15-2019 05-05-2021 Episodic Other circulatory disease (3 sources) Personal history of transient ischemic attack (TIA), and cerebral infarction without residual deficits; Translations: [Personal history of transient ischemic attack (TIA), and cerebral infarction without residual deficits] Onset: 12-15-2019 04-23-2022 Episodic Other circulatory disease (1 source) Hypotension, unspecified; Translations: [Hypotension, unspecified] Onset: 07-11-2024 Episodic Residual codes; unclassified (4 sources) Other specified postprocedural states; Translations: [Personal history of surgery to other organs] Onset: 07-20-2019 04-23-2022 Episodic Respiratory failure; insufficiency; arrest (adult) (8 sources) Respiratory failure; insufficiency; arrest (adult) 09-18-2019 Comment on above: [facility] NT Syncope (3 sources) Syncope and collapse; Translations: [Syncope and collapse] Onset: 07-11-2024 07-13-2024 Episodic Unclassified (3 sources) Contusion of left forearm, initial encounter 06-13-2023 Results Test Name Value Interpretation Reference Range Facility Absolute lymphocyte countOrd ered By: Deric Maravilla on 01-18-2025 Lymphocytes Auto (Unsp spec) [#/Vol] 2.02 10*3/uL 0.83-4.51 [facility] Absolute neutrophil countOrd ered By: Deric Maravilla on 01-18-2025 Neutrophils (Bld) [#/Vol] 5.4 10*3/uL 2.0-7.7 [facility] Anion gap in Serum or Plasma Ordered By: Deric Maravilla on 01-18-2025 Anion gap [Moles/Vol] 14 mmol/L 5- [facility] Automated lymphocyte count a s percentage of total leukocytesOrdered By: Deric Maravilla on 01-18-2025 Lymphocytes/100 WBC Auto (Unsp spec) 24.6 % [facility] BUN/creatinine ratioOrdered By: Deric Maravilla on 01-18-2025 Urea nitrogen/Creatinine [Mass ratio] 10.4 mg/mg - [facility] Basic Metabolic Profile (BMP )on 01-18-2025 BUN/CRE 10.4 RATIO Normal - [facility] Comment on above: Performed By: #### L 500.2500, L100.0100 ####[facility] [address] [place], [address] Calcium [Mass/Vol] 9.2 mg/dL Normal 7.6-11.0 [facility] Comment on above: Performed By: #### L 500.2500, L100.0100 ####[facility] [address] [place], [address] Chloride [Moles/Vol] 93 mmol/L Low 98-108 [facility] Comment on above: Performed By: #### L 500.2500, L100.0100 ####[facility] [address] [place], [address] CO2 [Moles/Vol] 26.8 mmol/L Normal 21.0-32.0 [facility] Comment on above: Performed By: #### L 500.2500, L100.0100 ####[facility] [address] [place], [address] Creatinine [Mass/Vol] 6.20 mg/dL High 0.70-1.[address] [facility] Comment on above: Performed By: #### L 500.2500, L100.0100 ####[facility] [address] [place], [address] ECRCL 5.19 ml/min Invalid Interpretation Code 50-250 [facility] Comment on above: Performed By: #### L 500.2500, L100.0100 ####[facility] [address] [place], [address] GAP 14 Normal 5-15 [facility] Comment on above: Performed By: #### L 500.2500, L100.0100 ####[facility] [address] [place], [address] GFR/1.73 sq M.predicted among non-blacks MDRD (S/P/Bld) [Vol rate/Area] 6 mL/min/{1.73_m2} Low >60 [facility] Comment on above: Result Comment: mL/m in/1.73m2 CKD-EPI Creatinine Equation (2020) Performed By: #### L 500.2500, L100.0100 ####[facility] [address] [place], [address] Glucose [Mass/Vol] 113 mg/dL High 70-99 [facility] Comment on above: Performed By: #### L 500.2500, L100.0100 ####[facility] [address] [place], [address] Potassium [Moles/Vol] 5.2 mmol/L High 3.3-5.[address] [facility] Comment on above: Result Comment: Hemo lysis present, Results??could be affected. ?? Performed By: #### L 500.2500, L100.0100 ####[facility] [address] [place], [address] Sodium [Moles/Vol] 134 mmol/L Normal 133-145 [facility] Comment on above: Performed By: #### L 500.2500, L100.0100 ####[facility] [address] [place], [address] Urea nitrogen [Mass/Vol] 64 mg/dL High 4-19 [facility] Comment on above: Performed By: #### L 500.2500, L100.0100 ####[facility] [address] [place], [address] Basophil percentageOrdered B y: Deric Maravilla on 01-18-2025 Basophils/100 WBC (Bld) 0.9 % 0-1 [facility] Blood manual differential co mment interpretation (narrative result)Ordered By: Deric Maravilla on 01-18-2025 Manual differential comment Chava (Bld) [Interp] SCANNED [facility] CBC W/Diff, Automatedon 12-22 PLT EST SLT DEC Normal ADEQ [facility] Comment on above: Performed By: #### L 500.2500, L100.0100 ####[facility] [address] [place], [address] SMEAR COMMENT SCANNED Normal [facility] Comment on above: Performed By: #### L 500.2500, L100.0100 ####[facility] [address] [place], [address] Carbon dioxide, total [Moles /volume] in Central venous bloodOrdered By: Deric Maravilla on 01-18-2025 CO2 [Moles/Vol] 26.8 mmol/L 21.0-32.0 [facility] Chest 1 View (Portable)on Chest 1 View (Portable) [facility] Imaging Services [address] [place] [address] Chest 1 View (Portable) MR#: [id number] Acct: [id number] Name: NICOLE SALVADOR Rep #: [id number] : 1935 F 89 From: Darshan Zafar MD PCP: Dr. Kishan Camejo MD Status: REG ER Study: Chest 1 View (Portable) Date of Exam: 01/18/25 Exam# [id number] Ordering Dr: Deric Maravilla MD PROCEDURE: CHEST 1 VIEW (PORTABLE) 01/18/2025 REASON FOR EXAM: COUGH TECHNIQUE: Frontal view of the chest. COMPARISON: 03/15/2023 FINDINGS: Lungs/Pleura: No focal consolidation, pneumothorax or sizable pleural effusion. Heart/Mediastinum: Prominent cardiomegaly. Central vascular congestion. Cardiac loop recorder device projects over the left chest wall. Bones/Soft tissues: Degenerative changes of the spine. Left axillary surgical clips. RAD/Chest 1 View (Portable) IMPRESSION: No appreciable consolidation or pleural effusion. Prominent cardiomegaly with vascular congestion. Reading Location: [facility] CC: Dr. Deric Maravilla MD; Dr. Kishan Camejo MD Compensation Intern: Signed Normal [facility] Chloride assayOrdered By: Humberto Maravilla on 01-18-2025 Chloride [Moles/Vol] 93 mmol/L Low 98-108 [facility] Emergency Department Summary on 01-18-2025 Emergency Department Summary [facility] Medical Records Department [address] [place] [id number] Emergency Department Summary 01/18/25 MR#: [id number] Acct: [id number] Name: NICOLE SALVADOR Rep #: [id number] : 1935 89 From: Deric Maravilla MD PCP: Dr. Kishan Camejo MD Status:[facility] ER Location: ED HPI History of Present Illness Chief Complaint: General Illness Informant: patient and family (Daughter and I believe son are in the room.) Onset/Context/Timin g Onset: Today Timing: Continuous Current Severity: Moderate Maximum Severity: Moderate Narrative Narrative: 89-year-old female history of dementia history of end-stage renal disease on dialysis Tuesday. History of stroke and CHF. History of glaucoma for which she had surgery I believe the both eyes according to daughter. Today unsure the exact time patient started having redness and watering of her left eye. States she cannot see out of her left eye. Reportedly no trauma. She wears glasses at times does not wear contacts. There is no discharge. She is also recently had a cough. Prior similar symptoms: No Recent Illness/Hospitaliza tion: No PFSH PFSH Medical History long term resident AV fistula long term resident ESRD on hemodialysis Anemia TIA (transient [...] tablet,extended 60 mg PO DAILY BLOOD PRESSURE 2 06/1203/15/23 History release albuterol sulfate 90 mcg/actuation 2 inh inhalation Q4H PRN Shortne ss 07/17/22 Unknown History aerosol inhaler Of Breath budesonide-formoter ol HFA 160 1 inh inhalation QHS SHORTNESS OF 07/17/22 03/14/23 History mcg-4.5 mcg/actuation aerosol BREATH inhaler dextran 70-hypromellose 0.1 %-0.3 1 drp ophthalmic (eye) QHS eye 03/14/23 History % eye drops health albuterol sulfate 2.5 mg/3 mL 2.5 mg continuous nebulization Q4H 12/05/22 Unknown History (0.083 %) solution for nebulization PRN SOB/Wheezing clopidogrel 75 mg tablet 75 mg PO DAILY anti platelet #30 0 12/06/22 03/15/23 Rx tabs atorvastatin 20 mg tablet 40 mg (2 x 20 mg) PO DAILY 3 03/14/23 Rx CHOLESTEROL #1 TAB acetaminophen 500 mg capsule 500 mg PO Q6H PRN fever or pain Unknown History bisacodyl 10 mg rectal suppository 10 mg WA DAILY PRN constipation 08/29/23 Unknown History donepezil 10 mg tablet 10 mg PO DAILY mentation 08/29/23 Unknown History magnesium hydroxide 400 mg/5 mL 5 ml PO DAILY PRN constipation 01/13 Unknown History oral suspension (Milk of Magnesia) mineral oil (Fleet Mineral Oil 118 ml WA DAILY PRN constipation 0 09/12/23 Unknown History enema) memantine 5 mg tablet 5 mg PO BID mentation 03/12/24 Unk nown History sevelamer carbonate 800 mg tablet 800 mg PO TID kidney disease 06/23 06/16 Unknown History vitamin B complex-vitamin C-folic 1 tab DAILY 07/03/24 Unknown Hist ory acid 0.8 mg tablet (Nephro-Jean Paul) food supplemt, lactose-reduced 120 ml PO 4X/DAY #0 mL 07/05/24 Un known Rx 0.08 gram-1.5 kcal/mL oral liquid (Ensure Plus High Protein) Allergy/AdvReac Type Severity Reaction Status Date / Time erythromycin base Allergy Rash Verified 01/18/25 18:48 lisinopril Allergy Unknown Verified 01/18/25 18:48 NSAIDS (Non-Steroidal Allergy Other Verified 01/18/25 18:48 Anti-Inflamma Salicylates Allergy Other Verified 01/18/25 18:48 Family History Mother Colon cancer Hypertension Father Hypertension Surgical History History (more content not included)... Normal [facility] Eosinophil percentageOrdered By: Deric Maravilla on 01-18-2025 Eosinophils/100 WBC (Bld) 1.1 % 0-5 [facility] Erythrocyte distribution wid th ratioOrdered By: Deric Maravilla on 01-18-2025 Erythrocyte distribution width (RBC) [Ratio] 16.3 % High 11.6-14.6 [facility] Erythrocyte distribution wid th standard deviationOrdered By: Deric Maravilla on 01-18-2025 Erythrocyte distribution width (RBC) [Ratio] 50.4 fl High 35.1-43.9 [facility] Glomerular filtration rate ( GFR) estimation/1.73 sq m using serum, plasma, or whole bOrdered By: Deric Maravilla on 01-18-2025 GFR/1.73 sq M.predicted among non-blacks MDRD (S/P/Bld) [Vol rate/Area] 6 mL/min/{1.73_m2} Low >60 [facility] Comment on above: mL/min/1.73m2 CKD-EP I Creatinine Equation (2020) Hematocrit Auto (Bld) [Volum e fraction]Ordered By: Deric Maravilla on 01-18-2025 Hematocrit (Bld) [Volume fraction] 33.4 % Low 37-47 [facility] Hemoglobin measurementOrdere d By: Deric Maravilla on 01-18-2025 Hemoglobin (Bld) [Mass/Vol] 10.6 g/dL Low 12.0-15.0 [facility] Immature granulocytes/100 WB C Auto (Bld)Ordered By: Deric Maravilla on 01-18-2025 Immature granulocytes/100 WBC (Bld) 0.400 % 0.0-0.9 [facility] Comment on above: IG% - Immature Granu locytes (promyelocytes, myelocytes and metamyelocytes) > 1% indicates that a LEFT SHIFT is Present. MCV (mean corpuscular volume ) determinationOrdered By: Deric Maravilla on 01-18-2025 MCV (RBC) [Entitic vol] 85.6 fL 81-99 [facility] Mean corpuscular hemoglobin (MCH) determinationOrdered By: Deric Maravilla on 01-18-2025 MCH (RBC) [Entitic mass] 27.2 pg 27.0-32.0 [facility] Mean corpuscular hemoglobin concentration (MCHC) determinationOrdered By: Deric Maravilla on 01-18-2025 MCHC (RBC) [Mass/Vol] 31.7 g/dL Low 32-[address] [facility] Mean platelet volume determi nationOrdered By: Deric Maravilla on 01-18-2025 Platelet mean volume (Bld) [Entitic vol] 12.9 fL High 6.2-12.0 [facility] Monocyte percentageOrdered B y: Deric Maravilla on 01-18-2025 Monocytes/100 WBC (Bld) 7.0 % 0-10 [facility] Neutrophil percentageOrdered By: Deric Maravilla on 01-18-2025 Neutrophils/100 WBC (Bld) 66.0 % 47-70 [facility] Nucleated red blood cell per centageOrdered By: Deric Maravilla on 01-18-2025 Nucleated RBC/100 WBC (Bld) [Ratio] 0 % 0-5 [facility] Platelet countOrdered By: Humberto Maravilla on 01-18-2025 Platelets (Bld) [#/Vol] 131 10*3/uL Low 150-450 [facility] Platelet estimateOrdered By: Deric Maravilla on 01-18-2025 Platelets LM Ql (Bld) SLT DEC ADEQ [facility] Potassium measurement (mass/ volume)Ordered By: Deric Maravilla on 01-18-2025 Potassium (Unsp spec) [Mass/Vol] 5.2 mmol/L High 3.3-5.1 [facility] Comment on above: Hemolysis present, R esults could be affected. RBC Auto (Bld) [#/Vol]Ordere d By: Deric Maravilla on 01-18-2025 RBC (Bld) [#/Vol] 3.90 10*6/uL Low 4.2-5.4 [facility] Serum creatinine measurement (mass/volume)Ordered By: Deric Maravilla on 01-18-2025 Creatinine [Mass/Vol] 6.20 mg/dL High 0.70-1.[address] [facility] Serum glucose measurement (m ass/volume)Ordered By: Deric Maravilla on 01-18-2025 Glucose [Mass/Vol] 113 mg/dL High 70-99 [facility] Serum or plasma calcium prosper urement (mass/volume)Ordered By: Deric Maravilla on 01-18-2025 Calcium [Mass/Vol] 9.2 mg/dL 7.6-11.0 [facility] Serum or plasma urea nitroge n measurement (mass/volume)Ordered By: Deric Maravilla on 01-18-2025 Urea nitrogen [Mass/Vol] 64 mg/dL High 4-19 [facility] Sodium levelOrdered By: Deric Maravilla on 01-18-2025 Sodium [Moles/Vol] 134 mmol/L 133-145 [facility] White blood cell (WBC) count Ordered By: Deric Maravilla on 01-18-2025 WBC (Bld) [#/Vol] 8.2 10*3/uL 4.4-11.0 [facility] MR/BMS.BVSon 08-01-2024 MR/BMS.BVS [facility] Vascular Surgery [address] [place] [address] OFFICE VISIT Date of Service: 08/01/24 MR#: [id number] Acct: [id number] Name: NICOLE SALVADOR John Rep #: [id number] : 1935 Provider: OSBALDO Mitchell Age/Sex: 89/F Location: [facility] Status: Signed Intake Vital Signs 04/24/24 13:02 [...] 07/17/22 08/01/24 History aerosol inhaler Of Breath budesonide-formoter ol HFA 160 1 inh inhalation QHS SHORTNESS [...] bisacodyl 10 mg rectal suppository 10 mg WA DAILY PRN constipation 08/29/23 08/01/24 History donepezil 10 mg tablet 10 mg PO DAILY mentation 08/29/23 08/01/24 History magnesium hydroxide 400 mg/5 mL 5 ml PO DAILY PRN constipation 01/1308/01/24 History oral suspension (Milk of Magnesia) mineral oil (Fleet Mineral Oil 118 ml WA DAILY PRN constipation 0 09/12/23 08/01/24 History [...] the past year?: No PFSH Medical History long term resident AV fistula long term resident ESRD on hemodialysis Anemia TIA (transient [...] never subst (more content not included)... Normal [facility] Hemoglobinon 07-17-2024 Hemoglobin (Bld) [Mass/Vol] 8.4 g/dL Low 12.0-15.0 [facility] Comment on above: Performed By: #### L 100.1300 #### [facility] [address] [place], [address] CBC W/Diff, Automatedon -05 25-2024 Absolute Lymph 1.69 X10 3/uL Normal 0.83-4.51 [facility] Comment on above: Performed By: #### L 100.0100 ####[facility] [address] [place], [address] Absolute Neut 3.7 X10 3/uL Normal 2.0-7.7 [facility] Comment on above: Performed By: #### L 100.0100 ####[facility] [address] [place], [address] Basophils/100 WBC (Bld) 1.0 % Normal 0-1 [facility] Comment on above: Performed By: #### L 100.0100 ####[facility] [address] [place], [address] Eosinophils/100 WBC (Bld) 8.1 % High 0-5 [facility] Comment on above: Performed By: #### L 100.0100 ####[facility] [address] [place], [address] Erythrocyte distribution width (RBC) [Ratio] 17.1 % High 11.6-14.6 [facility] Comment on above: Performed By: #### L 100.0100 ####[facility] [address] [place], [place], [address] Hematocrit (Bld) [Volume fraction] 23.8 % Low 37-47 [facility] Comment on above: Performed By: #### L 100.0100 ####[facility] [address] [place], [address] Hemoglobin (Bld) [Mass/Vol] 7.4 g/dL Low 12.0-15.0 [facility] Comment on above: Performed By: #### L 100.0100 ####[facility] [address] [place], [address] IG% 0.300 Normal 0.0-0.9 [facility] Comment on above: Result Comment: IG% - Immature Granulocytes (promyelocytes, myelocytes and metamyelocytes) > 1% indicates that a LEFT SHIFT is Present. Performed By: #### L 100.0100 ####[facility] [address] [place], [address] Lymphocytes/100 WBC (Bld) 25.3 % Normal 19-41 [facility] Comment on above: Performed By: #### L 100.0100 ####[facility] [address] [place], [address] MCH (RBC) [Entitic mass] 28.4 pg Normal 27.0-32.0 [facility] Comment on above: Performed By: #### L 100.0100 ####[facility] [address] [place], [address] MCHC (RBC) [Mass/Vol] 31.1 g/dL Low 32-[address] [facility] Comment on above: Performed By: #### L 100.0100 ####[facility] [address] [place], [address] MCV (RBC) [Entitic vol] 91.2 fL Normal 81-99 [facility] Comment on above: Performed By: #### L 100.0100 ####[facility] [address] [place], [address] Monocytes/100 WBC (Bld) 10.3 % High 0-10 [facility] Comment on above: Performed By: #### L 100.0100 ####[facility] [address] [place], [address] Neutrophils/100 WBC (Bld) 55.0 % Normal 47-70 [facility] Comment on above: Performed By: #### L 100.0100 ####[facility] [address] [place], [address] Nucleated RBC (Bld) [#/Vol] 0 10*3/uL Normal 0-5 [facility] Comment on above: Performed By: #### L 100.0100 ####[facility] [address] [place], [address] Platelet mean volume (Bld) [Entitic vol] 12.1 fL High 6.2-12.0 [facility] Comment on above: Performed By: #### L 100.0100 ####[facility] [address] [place], [address] Platelets (Bld) [#/Vol] 130 10*3/uL Low 150-450 [facility] Comment on above: Performed By: #### L 100.0100 ####[facility] [address] [place], [address] RBC (Bld) [#/Vol] 2.61 10*6/uL Low 4.2-5.4 [facility] Comment on above: Performed By: #### L 100.0100 ####[facility] [address] [place], [address] RDW SD 54.9 fl High 35.1-43.9 [facility] Comment on above: Performed By: #### L 100.0100 ####[facility] [address] [place], [address] WBC (Bld) [#/Vol] 6.7 10*3/uL Normal 4.4-11.0 [facility] Comment on above: Performed By: #### L 100.0100 ####[facility] [address] [place], [address] CBC W/Diff, Automatedon 06-23 Absolute Lymph 2.42 X10 3/uL Normal 0.83-4.51 [facility] Comment on above: Performed By: #### L 100.0100 #### [facility] [address] [place], [address] Absolute Neut 4.5 X10 3/uL Normal 2.0-7.7 [facility] Comment on above: Performed By: #### L 100.0100 #### [facility] [address] [place], [address] Basophils/100 WBC (Bld) 1.1 % High 0-1 [facility] Comment on above: Performed By: #### L 100.0100 #### [facility] [address] [place], [address] IG% 0.500 Normal 0.0-0.9 [facility] Comment on above: Result Comment: IG% - Immature Granulocytes (promyelocytes, myelocytes and metamyelocytes) > 1% indicates that a LEFT SHIFT is Present. Performed By: #### L 100.0100 #### [facility] [address] [place], [address] Nucleated RBC (Bld) [#/Vol] 0 10*3/uL Normal 0-5 [facility] Comment on above: Performed By: #### L 100.0100 #### [facility] [address] [place], [address] Eosinophils/100 WBC (Bld) 6.7 % High 0-5 [facility] Comment on above: Performed By: #### L 100.0100 #### [facility] [address] [place], [address] Erythrocyte distribution width (RBC) [Ratio] 16.7 % High 11.6-14.6 [facility] Comment on above: Performed By: #### L 100.0100 #### [facility] [address] [place], [address] Hematocrit (Bld) [Volume fraction] 25.3 % Low 37-47 [facility] Comment on above: Performed By: #### L 100.0100 #### [facility] [address] [place], [address] Hemoglobin (Bld) [Mass/Vol] 7.9 g/dL Low 12.0-15.0 [facility] Comment on above: Performed By: #### L 100.0100 #### [facility] [address] [place], [address] Lymphocytes/100 WBC (Bld) 29.9 % Normal 19-41 [facility] Comment on above: Performed By: #### L 100.0100 #### [facility] [address] [place], [address] MCH (RBC) [Entitic mass] 28.4 pg Normal 27.0-32.0 [facility] Comment on above: Performed By: #### L 100.0100 #### [facility] [address] [place], [address] MCHC (RBC) [Mass/Vol] 31.2 g/dL Low 32-[address] [facility] Comment on above: Performed By: #### L 100.0100 #### [facility] [address] [place], [address] MCV (RBC) [Entitic vol] 91.0 fL Normal 81-99 [facility] Comment on above: Performed By: #### L 100.0100 #### [facility] [address] [place], [address] Monocytes/100 WBC (Bld) 6.6 % Normal 0-10 [facility] Comment on above: Performed By: #### L 100.0100 #### [facility] [address] [place], [address] Neutrophils/100 WBC (Bld) 55.2 % Normal 47-70 [facility] Comment on above: Performed By: #### L 100.0100 #### [facility] [address] [place], [address] Platelet mean volume (Bld) [Entitic vol] 12.4 fL High 6.2-12.0 [facility] Comment on above: Performed By: #### L 100.0100 #### [facility] [address] [place], [address] Platelets (Bld) [#/Vol] 130 10*3/uL Low 150-450 [facility] Comment on above: Performed By: #### L 100.0100 #### [facility] [address] [place], [address] RBC (Bld) [#/Vol] 2.78 10*6/uL Low 4.2-5.4 [facility] Comment on above: Performed By: #### L 100.0100 #### [facility] [address] [place], [address] RDW SD 55.7 fl High 35.1-43.9 [facility] Comment on above: Performed By: #### L 100.0100 #### [facility] [address] [place], [address] WBC (Bld) [#/Vol] 8.1 10*3/uL Normal 4.4-11.0 [facility] Comment on above: Performed By: #### L 100.0100 #### [facility] [address] [place], [address] Absolute Lymph 2.51 X10 3/uL Normal 0.83-4.51 [facility] Comment on above: Performed By: #### L 501.5200, L500.4050, L100.0100, L501.2300 ####[facility] [address] [place], [address] Absolute Neut 4.1 X10 3/uL Normal 2.0-7.7 [facility] Comment on above: Performed By: #### L 501.5200, L500.4050, L100.0100, L501.2300 ####[facility] [address] [place], [address] Basophils/100 WBC (Bld) 1.0 % Normal 0-1 [facility] Comment on above: Performed By: #### L 501.5200, L500.4050, L100.0100, L501.2300 ####[facility] [address] [place], [address] Eosinophils/100 WBC (Bld) 6.3 % High 0-5 [facility] Comment on above: Performed By: #### L 501.5200, L500.4050, L100.0100, L501.2300 ####[facility] [address] [place], [address] Erythrocyte distribution width (RBC) [Ratio] 16.8 % High 11.6-14.6 [facility] Comment on above: Performed By: #### L 501.5200, L500.4050, L100.0100, L501.2300 ####[facility] [address] [place], [address] Hematocrit (Bld) [Volume fraction] 25.6 % Low 37-47 [facility] Comment on above: Performed By: #### L 501.5200, L500.4050, L100.0100, L501.2300 ####[facility] [address] [place], [address] Hemoglobin (Bld) [Mass/Vol] 7.6 g/dL Low 12.0-15.0 [facility] Comment on above: Performed By: #### L 501.5200, L500.4050, L100.0100, L501.2300 ####[facility] [address] [place], [address] IG% 0.400 Normal 0.0-0.9 [facility] Comment on above: Result Comment: IG% - Immature Granulocytes (promyelocytes, myelocytes and metamyelocytes) > 1% indicates that a LEFT SHIFT is Present. Performed By: #### L 501.5200, L500.4050, L100.0100, L501.2300 ####[facility] [address] [place], [address] Lymphocytes/100 WBC (Bld) 30.8 % Normal 19-41 [facility] Comment on above: Performed By: #### L 501.5200, L500.4050, L100.0100, L501.2300 ####[facility] [address] [place], [address] MCH (RBC) [Entitic mass] 27.4 pg Normal 27.0-32.0 [facility] Comment on above: Performed By: #### L 501.5200, L500.4050, L100.0100, L501.2300 ####[facility] [address] [place], [address] MCHC (RBC) [Mass/Vol] 29.7 g/dL Low 32-[address] [facility] Comment on above: Performed By: #### L 501.5200, L500.4050, L100.0100, L501.2300 ####[facility] [address] [place], [address] MCV (RBC) [Entitic vol] 92.4 fL Normal 81-99 [facility] Comment on above: Performed By: #### L 501.5200, L500.4050, L100.0100, L501.2300 ####[facility] [address] [place], [address] Monocytes/100 WBC (Bld) 11.2 % High 0-10 [facility] Comment on above: Performed By: #### L 501.5200, L500.4050, L100.0100, L501.2300 ####[facility] [address] [place], [address] Neutrophils/100 WBC (Bld) 50.3 % Normal 47-70 [facility] Comment on above: Performed By: #### L 501.5200, L500.4050, L100.0100, L501.2300 ####[facility] [address] [place], [address] Nucleated RBC (Bld) [#/Vol] 0.4 10*3/uL Normal 0-5 [facility] Comment on above: Performed By: #### L 501.5200, L500.4050, L100.0100, L501.2300 ####[facility] [address] [place], [address] Platelet mean volume (Bld) [Entitic vol] 12.0 fL Normal 6.2-12.0 [facility] Comment on above: Performed By: #### L 501.5200, L500.4050, L100.0100, L501.2300 ####[facility] [address] [place], [address] Platelets (Bld) [#/Vol] 123 10*3/uL Low 150-450 [facility] Comment on above: Performed By: #### L 501.5200, L500.4050, L100.0100, L501.2300 ####[facility] [address] [place], [address] RBC (Bld) [#/Vol] 2.77 10*6/uL Low 4.2-5.4 [facility] Comment on above: Performed By: #### L 501.5200, L500.4050, L100.0100, L501.2300 ####[facility] [address] [place], [address] RDW SD 56.1 fl High 35.1-43.9 [facility] Comment on above: Performed By: #### L 501.5200, L500.4050, L100.0100, L501.2300 ####[facility] [address] [place], [address] WBC (Bld) [#/Vol] 8.1 10*3/uL Normal 4.4-11.0 [facility] Comment on above: Performed By: #### L 501.5200, L500.4050, L100.0100, L501.2300 ####[facility] [address] [place], [address] Comprehensive Metabolic Prof meon 07-04-2024 Albumin [Mass/Vol] 2.4 g/dL Low 3.2-5.0 [facility] Comment on above: Performed By: #### L 501.5200, L500.4050, L100.0100, L501.2300 ####[facility] [address] [place], [address] Albumin/Globulin [Mass ratio] 0.8 {ratio} Low 0.9-2.4 [facility] Comment on above: Performed By: #### L 501.5200, L500.4050, L100.0100, L501.2300 ####[facility] [address] [place], [address] ALK P 56 U/L Normal 45-117 [facility] Comment on above: Performed By: #### L 501.5200, L500.4050, L100.0100, L501.2300 ####[facility] [address] [place], [address] ALT [Catalytic activity/Vol] 15 U/L Normal 13-56 [facility] Comment on above: Performed By: #### L 501.5200, L500.4050, L100.0100, L501.2300 ####[facility] [address] [place], [address] AST [Catalytic activity/Vol] 17 U/L Normal 15-37 [facility] Comment on above: Performed By: #### L 501.5200, L500.4050, L100.0100, L501.2300 ####[facility] [address] [place], [address] Bilirubin [Mass/Vol] 0.30 mg/dL Normal 0.20-1.00 [facility] Comment on above: Result Comment: For patients on eltrombopag therapy, use of Dimension [place] TBIL is not recommended. Performed By: #### L 501.5200, L500.4050, L100.0100, L501.2300 ####[facility] [address] [place], [address] BUN/CRE 5.5 RATIO Low 10-20 [facility] Comment on above: Performed By: #### L 501.5200, L500.4050, L100.0100, L501.2300 ####[facility] [address] [place], [address] CA,Total 7.8 mg/dL Low 8.5-10.1 [facility] Comment on above: Performed By: #### L 501.5200, L500.4050, L100.0100, L501.2300 ####[facility] [address] [place], [address] Chloride [Moles/Vol] 104 mmol/L Normal 98-107 [facility] Comment on above: Performed By: #### L 501.5200, L500.4050, L100.0100, L501.2300 ####[facility] [address] [place], [address] CO2 [Moles/Vol] 25.0 mmol/L Normal 21.0-32.0 [facility] Comment on above: Performed By: #### L 501.5200, L500.4050, L100.0100, L501.2300 ####[facility] [address] [place], [address] Creatinine [Mass/Vol] 6.32 mg/dL High 0.55-1.[address] [facility] Comment on above: Result Comment: The validity of the calculated GFR GFRAA in patients over 70 years has not been determined. Clinical correlation is essential. Performed By: #### L 501.5200, L500.4050, L100.0100, L501.2300 ####[facility] [address] [place], [address] ECRCL 5.09 ml/min Normal [facility] Comment on above: Performed By: #### L 501.5200, L500.4050, L100.0100, L501.2300 ####[facility] [address] [place], [address] EST GFR - AA 8 mL/min Low >60 [facility] Comment on above: Result Comment: Afri can [place] GFR Calc Performed By: #### L 501.5200, L500.4050, L100.0100, L501.2300 ####[facility] [address] [place], [address] GAP 8 Normal 5-15 [facility] Comment on above: Performed By: #### L 501.5200, L500.4050, L100.0100, L501.2300 ####[facility] [address] [place], [address] GFR/1.73 sq M.predicted among non-blacks MDRD (S/P/Bld) [Vol rate/Area] 7 mL/min/{1.73_m2} Low >60 [facility] Comment on above: Result Comment: Non- GFR Calc Performed By: #### L 501.5200, L500.4050, L100.0100, L501.2300 ####[facility] [address] [place], [address] Globulin (S) [Mass/Vol] 3.2 g/dL Normal 2.2-4.2 [facility] Comment on above: Performed By: #### L 501.5200, L500.4050, L100.0100, L501.2300 ####[facility] [address] [place], [address] Glucose [Mass/Vol] 74 mg/dL Normal 74-106 [facility] Comment on above: Performed By: #### L 501.5200, L500.4050, L100.0100, L501.2300 ####[facility] [address] [place], [address] Potassium [Moles/Vol] 4.3 mmol/L Normal 3.5-5.[address] [facility] Comment on above: Performed By: #### L 501.5200, L500.4050, L100.0100, L501.2300 ####[facility] [address] [place], [address] Sodium [Moles/Vol] 137 mmol/L Normal 136-145 [facility] Comment on above: Performed By: #### L 501.5200, L500.4050, L100.0100, L501.2300 ####[facility] [address] [place], [address] T PROT 5.6 g/dL Low 6.4-8.2 [facility] Comment on above: Performed By: #### L 501.5200, L500.4050, L100.0100, L501.2300 ####[facility] [address] [place], [address] Urea nitrogen [Mass/Vol] 35 mg/dL High 7-18 [facility] Comment on above: Performed By: #### L 501.5200, L500.4050, L100.0100, L501.2300 ####[facility] [address] [place], [address] Consultation - Nephrologyon 07-04-2024 Consultation - Nephrology [facility] Medical Records Department [address] [place] [address] Consultation - Nephrology 07/04/24 0846 MR#: [id number] Acct: [id number] Name: NICOLE SALVADOR Rep #: [id number] : 1935 89 From: Kianna Patrick DO PCP: Dr. Kishan Camejo MD Status:DIS IN Location: [place] [address] Assessment Plan Assessment/Plan (1) ESRD on hemodialysis: PLAN: HD TTS, next dialysis . AVF with good thrill and bruit. (2) Cardiac arrest: PLAN: back to baseline (3) Syncope and collapse: PLAN: due to CPA (4) Dementia: (5) History of CVA (cerebrovascular accident): (6) Acute hypotension: (7) Essential hypertension: PLAN: stableBP (8) long term resident: (9) long term resident: HPI Consult Data Date of Consult: 07/04/24 HPI Narrative Reason for Consultation: ESRD HD TTS, renal mgmt HPI Narrative: NICOLE SALVADOR, is a 89 F who presents to [facility] ED via squad 07/03/24 after cardiac arrest [...] has dementia and is a resident of [facility]. She is a poor historian. She has a history of multiple strokes, hypertension. Pt nephew at bedside. Spoke with pt daughter over phone at bedside. She voices she wants to be left alone and wants to eat. [facility] Medical History TIA (transient ischemic attack) [...] PO DAILY HEART HEALTH 03/15/23 History release budesonide-formoter ol HFA 160 1 inh inhalation QHS SHORTNESS [...] bisacodyl 10 mg rectal suppository 10 mg WA DAILY PRN constipation 08/29/23 Unknown History donepezil 10 mg tablet 10 mg PO DAILY 08/29/23 Unknown Hi story magnesium hydroxide 400 mg/5 mL 5 ml PO DAILY PRN constipation 01/13 Unknown History oral suspension (Milk of Magnesia) mineral oil (Fleet Mineral Oil 118 ml WA DAILY PRN constipation 0 09/12/23 Unknown History [...] Other Veri (more content not included)... Normal [facility] Consultation - Surgicalon Consultation - Surgical [facility] Medical Records Department [address] [place] [address] Consultation - Surgical 07/04/24 0741 MR#: [id number] Acct: [id number] Name: NICOLE SALVADOR Rep #: [id number] : 1935 89 From: Liliana ROBLERO PCP: Dr. Ksihan Camejo MD Status:ADM IN Location: [place] [address] Assessment Plan Assessment/Plan (1) Problem with dialysis access: QUALIFIERS: Encounter type: initial encounter Qualified Code(s): T82.898A - Other specified complication of vascular prosthetic devices, implants and grafts, initial encounter (2) AV fistula: PLAN: Plan On exam, no active bleeding from fistula access sites; mild edema consistent with report of infiltration/extrav asation of IV fluid; adequate thrill and bruit. [...] a 89 F who presented to the [facility] ER yesterday after an unresponsive episode at [...] they have not noted any further bleeding. [facility] Medical History TIA (transient ischemic attack) [...] PO DAILY HEART HEALTH 03/15/23 History release budesonide-formoter ol HFA 160 1 inh inhalation QHS SHORTNESS [...] bisacodyl 10 mg rectal suppository 10 mg WA DAILY PRN constipation 08/29/23 Unknown History donepezil 10 mg tablet 10 mg PO DAILY 08/29/23 Unknown Hi story magnesium hydroxide 400 mg/5 mL 5 ml PO DAILY PRN constipation 01/13 Unknown History oral suspension (Milk of Magnes (more content not included)... Normal [facility] Magnesiumon 07-04-2024 Magnesium [Mass/Vol] 2.3 mg/dL Normal 1.6-2.6 [facility] Comment on above: Performed By: #### L 501.5200, L500.4050, L100.0100, L501.2300 ####[facility] [address] [place], [address] Phosphoruson 07-04-2024 Phosphate [Mass/Vol] 3.1 mg/dL Normal 2.5-4.9 [facility] Comment on above: Performed By: #### L 501.5200, L500.4050, L100.0100, L501.2300 ####[facility] [address] [place], [address] Basic Metabolic Profile (BMP )on 07-03-2024 BUN/CRE 5.3 RATIO Low 10-20 [facility] Comment on above: Performed By: #### L 500.2500, L100.0100, L501.5425 #### [facility] [address] [place], [address] CA,Total 8.1 mg/dL Low 8.5-10.1 [facility] Comment on above: Performed By: #### L 500.2500, L100.0100, L501.5425 #### [facility] [address] [place], [address] Chloride [Moles/Vol] 99 mmol/L Normal 98-107 [facility] Comment on above: Performed By: #### L 500.2500, L100.0100, L501.5425 #### [facility] [address] [place], [address] CO2 [Moles/Vol] 33.0 mmol/L High 21.0-32.0 [facility] Comment on above: Performed By: #### L 500.2500, L100.0100, L501.5425 #### [facility] [address] [place], [address] Creatinine [Mass/Vol] 4.76 mg/dL High 0.55-1.[address] [facility] Comment on above: Result Comment: The validity of the calculated GFR GFRAA in patients over 70 years has not been determined. Clinical correlation is essential. Performed By: #### L 500.2500, L100.0100, L501.5425 #### [facility] [address] [place], [address] ECRCL 7.37 ml/min Normal [facility] Comment on above: Performed By: #### L 500.2500, L100.0100, L501.5425 #### [facility] [address] [place], [address] EST GFR - AA 11 mL/min Low >60 [facility] Comment on above: Result Comment: Afri can [place] GFR Calc Performed By: #### L 500.2500, L100.0100, L501.5425 #### [facility] [address] [place], [address] GAP 6 Normal 5-15 [facility] Comment on above: Performed By: #### L 500.2500, L100.0100, L501.5425 #### [facility] [address] [place], [address] GFR/1.73 sq M.predicted among non-blacks MDRD (S/P/Bld) [Vol rate/Area] 9 mL/min/{1.73_m2} Low >60 [facility] Comment on above: Result Comment: Non- GFR Calc Performed By: #### L 500.2500, L100.0100, L501.5425 #### [facility] [address] [place], [address] Glucose [Mass/Vol] 118 mg/dL High 74-106 [facility] Comment on above: Result Comment: Fast ing Glucose result from 100 to 125 mg/dL suggests IMPAIRED HOMEOSTASIS per A.D.A. criteria. Performed By: #### L 500.2500, L100.0100, L501.5425 #### [facility] [address] [place], [address] Potassium [Moles/Vol] 3.5 mmol/L Normal 3.5-5.[address] [facility] Comment on above: Performed By: #### L 500.2500, L100.0100, L501.5425 #### [facility] [address] [place], [address] Sodium [Moles/Vol] 138 mmol/L Normal 136-145 [facility] Comment on above: Performed By: #### L 500.2500, L100.0100, L501.5425 #### [facility] [address] [place], [address] Urea nitrogen [Mass/Vol] 25 mg/dL High 7-18 [facility] Comment on above: Performed By: #### L 500.2500, L100.0100, L501.5425 #### [facility] [address] [place], [address] CBC W/Diff, Automatedon 06-23 Absolute Lymph 2.20 X10 3/uL Normal 0.83-4.51 [facility] Comment on above: Performed By: #### L 500.2500, L100.0100, L501.5425 #### [facility] [address] [place], [address] Absolute Neut 4.7 X10 3/uL Normal 2.0-7.7 [facility] Comment on above: Performed By: #### L 500.2500, L100.0100, L501.5425 #### [facility] [address] [place], [address] Basophils/100 WBC (Bld) 1.3 % High 0-1 [facility] Comment on above: Performed By: #### L 500.2500, L100.0100, L501.5425 #### [facility] [address] [place], [address] Eosinophils/100 WBC (Bld) 7.2 % High 0-5 [facility] Comment on above: Performed By: #### L 500.2500, L100.0100, L501.5425 #### [facility] [address] [place], [address] Erythrocyte distribution width (RBC) [Ratio] 16.5 % High 11.6-14.6 [facility] Comment on above: Performed By: #### L 500.2500, L100.0100, L501.5425 #### [facility] [address] [place], [address] Hematocrit (Bld) [Volume fraction] 31.6 % Low 37-47 [facility] Comment on above: Performed By: #### L 500.2500, L100.0100, L501.5425 #### [facility] [address] [place], [address] Hemoglobin (Bld) [Mass/Vol] 9.7 g/dL Low 12.0-15.0 [facility] Comment on above: Performed By: #### L 500.2500, L100.0100, L501.5425 #### [facility] [address] [place], [address] IG% 0.400 Normal 0.0-0.9 [facility] Comment on above: Result Comment: IG% - Immature Granulocytes (promyelocytes, myelocytes and metamyelocytes) > 1% indicates that a LEFT SHIFT is Present. Performed By: #### L 500.2500, L100.0100, L501.5425 #### [facility] [address] [place], [address] Lymphocytes/100 WBC (Bld) 26.3 % Normal 19-41 [facility] Comment on above: Performed By: #### L 500.2500, L100.0100, L501.5425 #### [facility] [address] [place], [address] MCH (RBC) [Entitic mass] 27.8 pg Normal 27.0-32.0 [facility] Comment on above: Performed By: #### L 500.2500, L100.0100, L501.5425 #### [facility] [address] [place], [address] MCHC (RBC) [Mass/Vol] 30.7 g/dL Low 32-[address] [facility] Comment on above: Performed By: #### L 500.2500, L100.0100, L501.5425 #### [facility] [address] [place], [address] MCV (RBC) [Entitic vol] 90.5 fL Normal 81-99 [facility] Comment on above: Performed By: #### L 500.2500, L100.0100, L501.5425 #### [facility] [address] [place], [address] Monocytes/100 WBC (Bld) 8.7 % Normal 0-10 [facility] Comment on above: Performed By: #### L 500.2500, L100.0100, L501.5425 #### [facility] [address] [place], [address] Neutrophils/100 WBC (Bld) 56.1 % Normal 47-70 [facility] Comment on above: Performed By: #### L 500.2500, L100.0100, L501.5425 #### [facility] [address] [place], [address] Nucleated RBC (Bld) [#/Vol] 0 10*3/uL Normal 0-5 [facility] Comment on above: Performed By: #### L 500.2500, L100.0100, L501.5425 #### [facility] [address] [place], [address] Platelet mean volume (Bld) [Entitic vol] 12.2 fL High 6.2-12.0 [facility] Comment on above: Performed By: #### L 500.2500, L100.0100, L501.5425 #### [facility] [address] [place], [address] Platelets (Bld) [#/Vol] 140 10*3/uL Low 150-450 [facility] Comment on above: Performed By: #### L 500.2500, L100.0100, L501.5425 #### [facility] [address] [place], [address] RBC (Bld) [#/Vol] 3.49 10*6/uL Low 4.2-5.4 [facility] Comment on above: Performed By: #### L 500.2500, L100.0100, L501.5425 #### [facility] [address] [place], [address] RDW SD 53.8 fl High 35.1-43.9 [facility] Comment on above: Performed By: #### L 500.2500, L100.0100, L501.5425 #### [facility] [address] [place], [address] WBC (Bld) [#/Vol] 8.4 10*3/uL Normal 4.4-11.0 [facility] Comment on above: Performed By: #### L 500.2500, L100.0100, L501.5425 #### [facility] [address] [place], [address] Echo Completeon 07-03-2024 Echo Complete [facility] [address] [place] [address] Echo Complete 07/04/24 0757 MR#: [id number] Acct: [id number] Name: NICOLE SALVADOR Rep #: [id number] : 1935 89 From: Ewa Pittman MD Attending Dr: Dr. Jim Jerez DO Status: ADM IN Ordering Dr: Melody Patrick DO Date: 07/03/24 Location: [facility] Sex: F AA Admitted: 07/03/24 Reason For [...] Dictated: 07/04/24 0757 Date Transcribed: 07/04/24 1412 Compensation Intern: Signed Normal [facility] Emergency Department Summary on 07-03-2024 Emergency Department Summary [facility] [address] [place] [address] Emergency Department Summary 07/03/24 MR#: [id number] Acct: [id number] Name: NICOLE SALVADOR Rep #: [id number] : 1935 89 From: Jose Thapa MD PCP: Dr. Kishan Camejo MD Status:ADM IN Location: [place] [address] HPI History of Present Illness Chief Complaint: Weakness Detail of Chief Complaint: Collapse and CPR at dialysis unit Informant: other (Report obtained from nurse to nurse since patient has dementia and only oriented x 1) Limited: dementia Onset/Context/Timin g Onset: Today and Hours Context: Sudden Onset [...] or movement. 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) [facility] Medical History TIA (transient ischemic attack) [...] PO DAILY HEART HEALTH 03/15/23 History release budesonide-formoter ol HFA 160 1 inh inhalation QHS SHORTNESS [...] bisacodyl 10 mg rectal suppository 10 mg WA DAILY PRN constipation 08/29/23 Unknown History donepezil 10 mg tablet 10 mg PO DAILY 08/29/23 Unknown Hi story magnesium hydroxide 400 mg/5 mL 5 ml PO DAILY PRN constipation 01/13 Unknown History oral suspension (Milk of Magnesia) mineral oil (Fleet Mineral Oil 118 ml WA DAILY PRN constipation 0 09/12/23 Unknown History enema) memantine 5 mg tablet 5 mg PO BID 03/12/24 Unknown Histo ry sevelamer carbonate 800 mg tablet 800 mg PO TID 07/03/24 Unknown Hi story vitamin B complex-vitamin C-folic 1 tab DAILY 07/03/24 Unknown Hist ory (more content not included)... Normal [facility] H AND P Exam - Hospitaliston 07-03-2024 H&P Exam - Hospitalist [facility] [address] [place] [address] H P Exam - Hospitalist 07/03/24 1909 MR#: [id number] Acct: [id number] Name: NICOLE SALVADOR Rep #: [id number] : 1935 89 From: Melody Patrick DO PCP: Dr. Kishan Camejo MD Status:ADM IN Location: [place] [id number] HPI - General General Date of Admission: 07/03/24 Date of Service: 07/03/24 Chief Complaint: Syncope and collapse HPI Narrative NICOLE SALVADOR, is a 89 F who presented who presented to the emergency department [facility] on 07/03/2024 after a syncopal episode at [...] with her left upper extremity AV fistula. [facility] Medical History TIA (transient ischemic attack) [...] tablet,extended 60 mg PO DAILY BLOOD PRESSURE 12/2 06/1203/15/23 History release albuterol sulfate 90 mcg/actuation 2 inh inhalation Q4H PRN Shortne ss 07/17/22 Unknown History aerosol inhaler Of Breath aspirin 81 mg tablet,delayed 81 mg PO DAILY HEART HEALTH 03/15/23 History release budesonide-formoter ol HFA 160 1 inh inhalation QHS SHORTNESS [...] bisacodyl 10 mg rectal suppository 10 mg WA DAILY PRN constipation 08/29/23 Unknown History donepezil 10 mg tablet 10 mg PO DAILY 08/29/[address] (more content not included)... Normal [facility] L501.4020on 07-03-2024 TROPONIN-I HS 42 pg/mL Normal 3.0-54.0 [facility] Comment on above: Result Comment: Celeste jim Note: New Test Units and Gender Specific Reference Ranges. For more information see Policy Stat Procedure [place] High Sensitivity Troponin (TNIH) and attachments. Performed By: #### L 501.4020 ####[facility] [address] [place], [address] L501.5425on 07-03-2024 TROPONIN-I HS 46 pg/mL Normal 3.0-54.0 [facility] Comment on above: Order Comment: 1 Y Result Comment: Celeste jim Note: New Test Units and Gender Specific Reference Ranges. For more information see Policy Stat Procedure [place] High Sensitivity Troponin (TNIH) and attachments. Performed By: #### L 500.2500, L100.0100, L501.5425 #### [facility] [address] [place], [address] Lactic Acidon 07-03-2024 Lactate [Moles/Vol] 1.3 mmol/L Normal 0.4-1.9 [facility] Comment on above: Order Comment: Y Performed By: #### L 503.6005 ####[facility] [address] [facility] [place], [address] Operative Reporton Operative Report [facility] Department [address] [place] [address] Operative Report 06/27/24 1113 MR#: [id number] Acct: [id number] Name: NICOLE SALVADOR Rep #: [id number] : 1935 89 From: Jim Shepherd MD PCP: Dr. 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 Timeouts performed conscious sedation administered Versed and fentanyl. Skin overlying the fistula just beyond the anastomosis was anesthetized 1% lidocaine the vessel accessed under ultrasound guidance with a micropuncture needle wire. This was then exchanged for a 6 Chinese fistula sheath through which hand-injection digital subtraction [...] to circulate for 3 minutes. The 6 Chinese sheath was then exchanged for a 7 Chinese sheath and through this and 8 mm x 2 Bard conquest balloon was advanced and centered at the lesion. He was inflated to nominal for 2 minutes and then deflated withdrawn. Next a Bard conquest 10 mm x4 was advanced and inflated to nominal and then deflated withdrawn. Finally a [employer] [place] 12 x 4 was advanced centered on the lesion inflated to nominal for 2 minutes and then deflated withdrawn. With each subsequent inflation there appeared to be significant rebound of the lesion so a [employer] cutting balloon 8 mm x 2 [...] MD; Dr. Kishan Camejo MD Signed Normal [facility] AV Fistula/Dialysis Graft Sc anon 06-08-2024 AV Fistula/Dialysis Graft Scan [facility] [address] [place] [address] AV Fistula/Dialysis Graft Scan 06/08/24 1324 MR#: [id number] Acct: [id number] Name: NICOLE SALVADOR Rep #: [id number] : 1935 89 From: Jim Shepherd MD Attending Dr: OSBALDO Mitchell Status: REG CLI Ordering Dr: Liliana Denise Date: 06/08/24 Location: [facility] Sex: F AA Admitted: Reason For Study: Fistula malfunction LEFT Inflow, 160.5/64.1 cm/sec. Inflow, 1773 ml/min. Prox anastamosis, 250.1/110.7 cm/sec. Prox anastamosis, 1417 ml/min. Prox graft, 320.8/162.1 cm/sec. Prox graft, 28576 ml/min. Mid graft, 289.1/83.5 cm/sec. Mid graft, 18296 ml/min. Distal graft, 278.8/153.5 cm/sec. Distal graft, 9678 ml/min. Outflow, 149.4/89.8 cm/sec. Outflow, 3249 ml/min. VL/AV Fistula/Dialysis Graft Scan Interpretation Summary Patent left upper extremity fistula with no stenosis, adequate flow volume, enlarged throughout with largest diameter 2.2 cm __ Ordering Physician: Liliana Denise Referring Physician: Kishan Camejo Performed By: Tamiko Arzate RVT 06/11/24 1146 Date Jim Shepherd MD CC: OSBALDO Mitchell; Dr. Kishan Camejo MD Date Dictated: 06/08/24 1324 Date Transcribed: 06/11/24 1146 Compensation Intern: Signed Normal [facility] MR/BMS.BVSon 05-30-2024 MR/BMS.BVS [facility] [address] [place] [address]. [address] [place] [address] OFFICE VISIT Date of Service: 05/30/24 MR#: [id number] Acct: [id number] Name: NICOLE SALVADOR Rep #: [id number] : 1935 Provider: OSBALDO Mitchell Age/Sex: 89/F Location: [facility] Status: Signed Intake Vital Signs 04/24/24 13:02 [...] DAILY HEART HEALTH 07/17/22 09/12/23 History release budesonide-formoter ol HFA 160 1 inh inhalation QHS SHORTNESS [...] bisacodyl 10 mg rectal suppository 10 mg WA DAILY PRN 08/29/23 05/30/24 History donepezil 10 mg tablet 10 mg PO DAILY 08/29/23 05/30/24 History magnesium hydroxide 400 mg/5 mL 5 ml PO DAILY PRN 08/29/23 05/30/24 History oral suspension (Milk of Magnesia) mineral oil (Fleet Mineral Oil 118 ml WA DAILY PRN 09/12/23 05/30/24 History enema) memantine 5 mg tablet 5 mg PO BID 10/21/24 01/08/25 History Is last menstrual period known: No [...] her LUE (more content not included)... Normal [facility] Emergency Department Summary on 04-24-2024 Emergency Department Summary [facility] [address] [place] [address] Emergency Department Summary 04/24/24 MR#: [id number] Acct: [id number] Name: NICOLE SALVADOR Rep #: [id number] : 1935 89 From: Jolie Mosqueda DO [...] reported. Patient is a resident of the [facility]. She uses a walker at baseline. [facility] Medical History TIA (transient ischemic attack) [...] DAILY HEART HEALTH 07/17/22 03/15/23 History release budesonide-formoter ol HFA 160 1 inh inhalation QHS SHORTNESS [...] bisacodyl 10 mg rectal suppository 10 mg WA DAILY PRN 08/29/23 Unknown History donepezil 10 mg tablet 10 mg PO DAILY 08/29/23 Unknown History magnesium hydroxide 400 mg/5 mL 5 ml PO DAILY PRN 08/29/23 Unknown History oral suspension (Milk of Magnesia) mineral oil (Fleet Mineral Oil 118 ml WA DAILY PRN 09/12/23 Unknown History enema) memantine [...] of thyroi (more content not included)... Normal [facility] LIZ + Protein Elect, Serumon 03-15-2024 Albumin [Mass/Vol] 3.6 g/dL Normal 2.9-4.4 [facility] Comment on above: Order Comment: N Performed By: #### L 3100.3425, L3600.4030 #### [facility] [address] [place], [address] Albumin/Globulin [Mass ratio] 1.3 {ratio} Normal 0.7-1.7 [facility] Comment on above: Order Comment: N Performed By: #### L 3100.3425, L3600.4030 #### [facility] [address] [place], [address] ADOZW-4-CWRI 0.2 g/dL Normal 0.0-0.4 [facility] Comment on above: Order Comment: N Performed By: #### L 3100.3425, L3600.4030 #### [facility] [address] [place], [address] VDMOA-1-HTNM 0.6 g/dL Normal 0.4-1.0 [facility] Comment on above: Order Comment: N Performed By: #### L 3100.3425, L3600.4030 #### [facility] [address] [place], [address] BETA GLOBULIN 0.8 g/dL Normal 0.7-1.3 [facility] Comment on above: Order Comment: N Performed By: #### L 3100.3425, L3600.4030 #### [facility] [address] [place], [address] GAMMA GLOBULIN 1.2 g/dL Normal 0.4-1.8 [facility] Comment on above: Order Comment: N Performed By: #### L 3100.3425, L3600.4030 #### [facility] [address] [place], [address] Globulin (S) [Mass/Vol] 2.8 g/dL Normal 2.2-3.9 [facility] Comment on above: Order Comment: N Performed By: #### L 3100.3425, L3600.4030 #### [facility] [address] [place], [address] LIZ RESULT,S Comment Normal . [facility] Comment on above: Order Comment: N Result Comment: No m onoclonality detected. Performed By: #### L 3100.3425, L3600.4030 #### [facility] [address] [place], [address] IMMUNOGLOB A QN 359 mg/dL Normal 64-422 [facility] Comment on above: Order Comment: N Performed By: #### L 3100.3425, L3600.4030 #### [facility] [address] [place], [address] IMMUNOGLOB G QN 1112 mg/dL Normal 586-1602 [facility] Comment on above: Order Comment: N Performed By: #### L 3100.3425, L3600.4030 #### [facility] [address] [place], [address] IMMUNOGLOB M QN 231 mg/dL High 26-217 [facility] Comment on above: Order Comment: N Performed By: #### L 3100.3425, L3600.4030 #### [facility] [address] [place], [address] M-Valentín Not Observed Normal Not Observed [facility] Comment on above: Order Comment: N Performed By: #### L 3100.3425, L3600.4030 #### [facility] [address] [place], [place], [address] NOTE: Comment Normal . [facility] Comment on above: Order Comment: N Result Comment: Prot ein electrophoresis scan will follow via computer, mail, or tire tester delivery. Performed By: #### L 3100.3425, L3600.4030 #### [facility] [address] [place], [place], [address] Protein [Mass/Vol] 6.4 g/dL Normal 6.0-8.5 [facility] Comment on above: Order Comment: N Performed By: #### L 3100.3425, L3600.4030 #### [facility] [address] [place], [place], [address] Immunofixation Urineon 03-15 LIZ Urine Comment: Normal . [facility] Comment on above: Order Comment: N Result Comment: Pres ence of monoclonal protein is unclear at this time. Suggest repeat in 3 to 6 months if clinically indicated. Performed at: [facility] [address] [id number] Agricultural Economics Teacher: Phil Reagan PhD, Phone: [phone] Performed By: #### L 3100.3425, L3600.4030 #### [facility] [address] [place], [place], [address] Neurology Visit Reporton Neurology Visit Report [facility] [address] [facility] [address], [address] [place], [place] [address] OFFICE VISIT Date of Service: 03/12/24 MR#: [id number] Acct: [id number] Name: NICOLE SALVADOR John Rep #: [id number] : 1935 Provider: Dr. Elkin clemente MD Age/Sex: 89/F Location: [facility] Status: Signed HPI [facility] Chief Complaint: Details: Interim History: Nicole returns for follow-up visit. She has a history of hypertension, stroke/TIA, hypothyroidism, end-stage renal disease on hemodialysis. She has exhibited progressive cognitive decline since at least 2020. She has had 3-4 TIAs since around 2018. These have manifested with transient extremity weakness [...] event. She has been residing in a [place] [facility] since [place]. She forgets conversations and repeats conversations. She forgets past events. Her memory had worsened over time. She has word finding difficulty. She has not not become lost in the [place] [facility]. She requires assistance with activities such [...] Right bundle branch block. Left anterior fascicular block.Bifascicul ar block. Abnormal EKG Cardiac echo (12/05/2022): The [...] of cytot (more content not included)... Normal [facility] Folic acid serumOrdered By: Elkin Presley on 05-02-2023 Folate [Mass/Vol] 53.50 ng/mL 3.1-55.4 [facility] - Chemistry and C hemistry - challengeOrdered By: Elkin Presley on 05-02-2023 Cobalamin (Vitamin B12) [Mass/Vol] 883 pg/mL 211-911 [facility] No Panel InformationOrdered By: Elkin Presley on 05-02-2023 Free Lambda Light Chains, Quant 105.1 mg/L 5.7-26.3 [facility] Whole Blood Vitamin B1 Level 89.6 nmol/L 66.5-200.0 [facility] Comment on above: Performed at: [address] [id number] Director: Phil Reagan PhD, Phone: [phone] at: [facility] [address] [id number] Director: Fernanda Hood MD, Phone: [phone] Serum immunoglobulin kappa l ight chains/immunoglobulin lambda light chains mass ratioOrdered By: Elkin Presley on 05-02-2023 Immunoglobulin light chains.kappa/Immunoglobu richard light chains.lambda (S) [Mass ratio] 1.79 0.26-1.65 [facility] Serum or plasma immunoglobul in kappa light chains measurement (mass/volume)Ordered By: Elkin Presley on 05-02-2023 Immunoglobulin light chains.kappa [Mass/Vol] 188.6 mg/L 3.3-19.4 [facility] Absolute lymphocyte countOrd ered By: Micha Feliciano on 03-16-2023 Lymphocytes Auto (Unsp spec) [#/Vol] 1.64 10*3/uL 0.83-4.51 [facility] Basophil percentageOrdered B y: Micha Feliciano on 03-16-2023 Basophils/100 WBC (Bld) 1.0 % 0-1 [facility] Chloride [Moles/Vol] 104 mmol/L 98-107 [facility] Cholesterol [Mass/Vol] 101 mg/dL <200 [facility] Comment on above: <200 mg/dL Desirable 200-240 mg/dL Borderline >240 mg/dL High Risk Eosinophils/100 WBC (Bld) 3.5 % 0-5 [facility] Glucose [Mass/Vol] 85 mg/dL 74-106 [facility] Neutrophils (Bld) [#/Vol] 3.3 10*3/uL 2.0-7.7 [facility] Neutrophils/100 WBC (Bld) 56.7 % 47-70 [facility] Potassium [Moles/Vol] 5.1 mmol/L 3.5-5.[address] [facility] Sodium [Moles/Vol] 139 mmol/L 136-145 [facility] Triglyceride [Mass/Vol] 33 mg/dL <199 [facility] Comment on above: The drugs N-Acetylcy steine and Metamizole may falsely depress this assay.Serum Triglycerides Reference Interval Normal <150 mg/dL Borderline high 150 - 199 mg/dL High 200 - 499 mg/dL Very High > or = 500 mg/dL WBC (Bld) [#/Vol] 5.7 10*3/uL 4.4-11.0 [facility] Blood erythrocytes count (nu mber/volume)Ordered By: Micha Feliciano on 03-16-2023 RBC (Bld) [#/Vol] 3.44 10*6/uL 4.2-5.4 [facility] Blood hemoglobin measurement (mass/volume)Ordered By: Micha Feliciano on 03-16-2023 Hemoglobin (Bld) [Mass/Vol] 10.0 g/dL 12.0-15.0 [facility] Blood lymphocytes/100 leukoc ytesOrdered By: Micha Feliciano on 03-16-2023 Lymphocytes/100 WBC (Bld) 28.6 % 19-41 [facility] Blood monocytes/100 leukocyt esOrdered By: Micha Feliciano on 03-16-2023 Monocytes/100 WBC (Bld) 9.9 % 0-10 [facility] Blood platelet mean volumeOr dered By: Micha Feliciano on 03-16-2023 Platelet mean volume (Bld) [Entitic vol] 11.8 fL 6.2-12.0 [facility] Determination of erythrocyte mean corpuscular volume (MCV)Ordered By: Micha Feliciano on 03-16-2023 MCV (RBC) [Entitic vol] 92.2 fL 81-99 [facility] Hematocrit Auto (Bld) [Volum e fraction]Ordered By: Micha Feliciano on 03-16-2023 Hematocrit (Bld) [Volume fraction] 31.7 % 37-47 [facility] - Chemistry and C hemistry - challengeOrdered By: Micha Feliciano on 03-16-2023 CO2 [Moles/Vol] 29.0 mmol/L 21.0-32.0 [facility] Urea nitrogen/Creatinine [Mass ratio] 6.9 mg/mg 10-20 [facility] - Hematology and Cell countsOrdered By: Micha Feliciano on 03-16-2023 Erythrocyte distribution width (RBC) [Entitic vol] 48.5 fL 35.1-43.9 [facility] Erythrocyte distribution width (RBC) [Ratio] 14.5 % 11.6-14.6 [facility] Immature granulocytes/100 WBC (Bld) 0.300 % 0.0-0.9 [facility] Comment on above: IG% - Immature Granu locytes (promyelocytes, myelocytes and metamyelocytes) > 1% indicates that a LEFT SHIFT is Present. MCH (RBC) [Entitic mass] 29.1 pg 27.0-32.0 [facility] Nucleated RBC/100 WBC (Bld) [Ratio] 0 % 0-5 [facility] MCHC Auto (RBC) [Mass/Vol]Or dered By: Micha Feliciano on 03-16-2023 MCHC (RBC) [Mass/Vol] 31.5 g/dL 32-[address] [facility] No Panel InformationOrdered By: Micha Feliciano on 03-16-2023 Estimated Creatinine Clearance Calc 4.25 ml/min [facility] Estimated GFR (MDRD) Amer 6 mL/min >60 [facility] Comment on above: GFR Calc Estimated GFR (MDRD) Non-Af Amer 5 mL/min >60 [facility] Comment on above: Non- GFR Calc Platelets bldOrdered By: Jono Feliciano on 03-16-2023 Platelets (Bld) [#/Vol] 140 10*3/uL 150-450 [facility] Serum or plasma calcium prosper urement (mass/volume)Ordered By: Micha Feliciano on 03-16-2023 Calcium [Mass/Vol] 8.1 mg/dL 8.5-10.1 [facility] Serum or plasma cholesterol in HDL measurement (mass/volume)Ordered By: Micha Feliciano on 03-16-2023 Cholesterol in HDL [Mass/Vol] 60 mg/dL >40 [facility] Comment on above: The drugs N-Acetylcy steine and Metamizole may falsely depress this assay. Reference Range HDL <40 mg/dL Low HDL Cholesterol HDL >or= 60 mg/dL High HDL Cholesterol Serum or plasma cholesterol in VLDL measurement (mass/volume)Ordered By: Micha Feliciano on 03-16-2023 Cholesterol in VLDL [Mass/Vol] 7 mg/dL 5-40 [facility] Serum or plasma creatinine m easurement (mass/volume)Ordered By: Micha Feliciano on 03-16-2023 Creatinine [Mass/Vol] 7.71 mg/dL 0.55-1.[address] [facility] Comment on above: Critical Result(s) C alled at: 07:00:01 03/16/2023 by: Kathleen Calzada. Results read back by same.The validity of the calculated GFR & GFRAA in patients over 70 years has not been determined. Clinical correlation is essential. Serum or plasma low density lipoprotein (LDL) cholesterol measurement (mass/volume)Ordered By: Micha Feliciano on 03-16-2023 Cholesterol in LDL [Mass/Vol] 34 mg/dL 0-130 [facility] Serum or plasma urea nitroge n measurement (mass/volume)Ordered By: Micha Feliciano on 03-16-2023 Urea nitrogen [Mass/Vol] 53 mg/dL 7-18 [facility] Thin prep Papanicolaou smear with manual screeningOrdered By: Micha Feliciano on 03-16-2023 Thin prep Papanicolaou smear with manual screening 6 5-15 [facility] INR in Blood by Coagulation assayOrdered By: Jey Benitez on 03-15-2023 INR Coag (Bld) [Relative time] 1.0 {INR} [facility] - CoagulationOrde red By: Jey Benitez on 03-15-2023 aPTT Coag (Bld) [Time] 28.2 s 24.1-36.2 [facility] PT Coag (PPP) [Time] 13.2 s 11.7-14.9 [facility] No Panel InformationOrdered By: Jey Benitez on 03-15-2023 Troponin I High Sensitivity 38 pg/mL 3.0-54.0 [facility] Comment on above: Please Note: New Cathleen t Units and Gender Specific Reference Ranges. For more information see Policy Stat Procedure [place] High Sensitivity Troponin (TNIH) and attachments. Absolute lymphocyte countOrd ered By: John Denisenaomie on 12-06-2022 Lymphocytes Auto (Unsp spec) [#/Vol] 2.17 10*3/uL 0.83-4.51 [facility] Basophil percentageOrdered B y: John Lutz on 12-06-2022 Basophil percentage 3.6 mg/dL 2.5-4.9 [facility] Basophils/100 WBC (Bld) 1.7 % 0-1 [facility] Chloride [Moles/Vol] 102 mmol/L 98-107 [facility] Cholesterol [Mass/Vol] 97 mg/dL <200 [facility] Comment on above: <200 mg/dL Desirable 200-240 mg/dL Borderline >240 mg/dL High Risk Eosinophils/100 WBC (Bld) 4.2 % 0-5 [facility] Glucose [Mass/Vol] 81 mg/dL 74-106 [facility] Neutrophils (Bld) [#/Vol] 2.3 10*3/uL 2.0-7.7 [facility] Neutrophils/100 WBC (Bld) 43.5 % 47-70 [facility] Potassium [Moles/Vol] 4.1 mmol/L 3.5-5.[address] [facility] Sodium [Moles/Vol] 139 mmol/L 136-145 [facility] Triglyceride [Mass/Vol] 81 mg/dL <199 [facility] Comment on above: The drugs N-Acetylcy steine and Metamizole may falsely depress this assay.Serum Triglycerides Reference Interval Normal <150 mg/dL Borderline high 150 - 199 mg/dL High 200 - 499 mg/dL Very High > or = 500 mg/dL WBC (Bld) [#/Vol] 5.3 10*3/uL 4.4-11.0 [facility] Blood erythrocytes count (nu mber/volume)Ordered By: John Lutz on 12-06-2022 RBC (Bld) [#/Vol] 3.49 10*6/uL 4.2-5.4 [facility] Blood hemoglobin measurement (mass/volume)Ordered By: John Lutz on 12-06-2022 Hemoglobin (Bld) [Mass/Vol] 9.9 g/dL 12.0-15.0 [facility] Blood lymphocytes/100 leukoc ytesOrdered By: John Lutz on 12-06-2022 Lymphocytes/100 WBC (Bld) 41.1 % 19-41 [facility] Blood monocytes/100 leukocyt esOrdered By: John Lutz on 12-06-2022 Monocytes/100 WBC (Bld) 9.3 % 0-10 [facility] Blood platelet mean volumeOr dered By: John Lutz on 12-06-2022 Platelet mean volume (Bld) [Entitic vol] 12.1 fL 6.2-12.0 [facility] Determination of erythrocyte mean corpuscular volume (MCV)Ordered By: John Lutz on 12-06-2022 MCV (RBC) [Entitic vol] 90.8 fL 81-99 [facility] Hematocrit Auto (Bld) [Volum e fraction]Ordered By: John Lutz on 12-06-2022 Hematocrit (Bld) [Volume fraction] 31.7 % 37-47 [facility] - Chemistry and C hemistry - challengeOrdered By: John Lutz on 12-06-2022 CO2 [Moles/Vol] 30.0 mmol/L 21.0-32.0 [facility] Magnesium [Mass/Vol] 2.5 mg/dL 1.6-2.6 [facility] Urea nitrogen/Creatinine [Mass ratio] 6.5 mg/mg 10-20 [facility] - Hematology and Cell countsOrdered By: John Lutz on 12-06-2022 Erythrocyte distribution width (RBC) [Entitic vol] 53.1 fL 35.1-43.9 [facility] Erythrocyte distribution width (RBC) [Ratio] 15.9 % 11.6-14.6 [facility] Immature granulocytes/100 WBC (Bld) 0.200 % 0.0-0.9 [facility] Comment on above: IG% - Immature Granu locytes (promyelocytes, myelocytes and metamyelocytes) > 1% indicates that a LEFT SHIFT is Present. MCH (RBC) [Entitic mass] 28.4 pg 27.0-32.0 [facility] Nucleated RBC/100 WBC (Bld) [Ratio] 0 % 0-5 [facility] MCHC Auto (RBC) [Mass/Vol]Or dered By: John Lutz on 12-06-2022 MCHC (RBC) [Mass/Vol] 31.2 g/dL 32-[address] [facility] No Panel InformationOrdered By: John Lutz on 12-06-2022 Estimated Creatinine Clearance Calc 4.29 ml/min [facility] Estimated GFR (MDRD) Amer 6 mL/min >60 [facility] Comment on above: GFR Calc Estimated GFR (MDRD) Non-Af Amer 5 mL/min >60 [facility] Comment on above: Non- GFR Calc Platelets bldOrdered By: Daniel Lutz on 12-06-2022 Platelets (Bld) [#/Vol] 112 10*3/uL 150-450 [facility] Serum or plasma calcium prosper urement (mass/volume)Ordered By: John Lutz on 12-06-2022 Calcium [Mass/Vol] 8.6 mg/dL 8.5-10.1 [facility] Serum or plasma cholesterol in HDL measurement (mass/volume)Ordered By: John Lutz on 12-06-2022 Cholesterol in HDL [Mass/Vol] 55 mg/dL >40 [facility] Comment on above: The drugs N-Acetylcy steine and Metamizole may falsely depress this assay. Reference Range HDL <40 mg/dL Low HDL Cholesterol HDL >or= 60 mg/dL High HDL Cholesterol Serum or plasma cholesterol in VLDL measurement (mass/volume)Ordered By: John Lutz on 12-06-2022 Cholesterol in VLDL [Mass/Vol] 16 mg/dL 5-40 [facility] Serum or plasma creatinine m easurement (mass/volume)Ordered By: John Lutz on 12-06-2022 Creatinine [Mass/Vol] 8.13 mg/dL 0.55-1.[address] [facility] Comment on above: Critical Result(s) C alled at: 07:49:55 12/06/2022 by: Kathleen Campbell to izzo. Results read back by same.The validity of the calculated GFR & GFRAA in patients over 70 years has not been determined. Clinical correlation is essential. Serum or plasma low density lipoprotein (LDL) cholesterol measurement (mass/volume)Ordered By: John Lutz on 12-06-2022 Cholesterol in LDL [Mass/Vol] 26 mg/dL 0-130 [facility] Serum or plasma urea nitroge n measurement (mass/volume)Ordered By: John Lutz on 12-06-2022 Urea nitrogen [Mass/Vol] 53 mg/dL 7-18 [facility] Thin prep Papanicolaou smear with manual screeningOrdered By: John Lutz on 12-06-2022 Thin prep Papanicolaou smear with manual screening 7 5-15 [facility] Absolute lymphocyte countOrd ered By: Jey Benitez on 12-05-2022 Lymphocytes Auto (Unsp spec) [#/Vol] 2.42 10*3/uL 0.83-4.51 [facility] Basophil percentageOrdered B y: Jey Benitez on 12-05-2022 Basophils/100 WBC (Bld) 1.4 % 0-1 [facility] Chloride [Moles/Vol] 102 mmol/L 98-107 [facility] Eosinophils/100 WBC (Bld) 3.4 % 0-5 [facility] Glucose [Mass/Vol] 85 mg/dL 74-106 [facility] Neutrophils (Bld) [#/Vol] 3.1 10*3/uL 2.0-7.7 [facility] Neutrophils/100 WBC (Bld) 47.1 % 47-70 [facility] Potassium [Moles/Vol] 3.8 mmol/L 3.5-5.[address] [facility] Sodium [Moles/Vol] 140 mmol/L 136-145 [facility] WBC (Bld) [#/Vol] 6.5 10*3/uL 4.4-11.0 [facility] Blood erythrocytes count (nu mber/volume)Ordered By: Jey Benitez on 12-05-2022 RBC (Bld) [#/Vol] 3.80 10*6/uL 4.2-5.4 [facility] Blood hemoglobin measurement (mass/volume)Ordered By: Jey Benitez on 12-05-2022 Hemoglobin (Bld) [Mass/Vol] 10.8 g/dL 12.0-15.0 [facility] Blood lymphocytes/100 leukoc ytesOrdered By: Jey Benitez on 12-05-2022 Lymphocytes/100 WBC (Bld) 37.2 % 19-41 [facility] Blood monocytes/100 leukocyt esOrdered By: Jey Benitez on 12-05-2022 Monocytes/100 WBC (Bld) 10.6 % 0-10 [facility] Blood platelet mean volumeOr dered By: Jey Benitez on 12-05-2022 Platelet mean volume (Bld) [Entitic vol] 12.9 fL 6.2-12.0 [facility] Determination of erythrocyte mean corpuscular volume (MCV)Ordered By: Jey Benitez on 12-05-2022 MCV (RBC) [Entitic vol] 92.4 fL 81-99 [facility] Glucose Glucometer (dC) [M ass/Vol]Ordered By: Jey Benitez on 12-05-2022 Glucose [Mass/Vol] 85 mg/dL 74-106 [facility] Comment on above: MANAGEMENT OF PATIEN T CARE PER NURSING PROTOCOL Hematocrit Auto (Bld) [Volum e fraction]Ordered By: Jey Benitez on 12-05-2022 Hematocrit (Bld) [Volume fraction] 35.1 % 37-47 [facility] INR in Blood by Coagulation assayOrdered By: Jey Benitez on 12-05-2022 INR Coag (Bld) [Relative time] 1.0 {INR} [facility] - Chemistry and C hemistry - challengeOrdered By: Jey Benitez on 12-05-2022 CO2 [Moles/Vol] 33.0 mmol/L 21.0-32.0 [facility] Urea nitrogen/Creatinine [Mass ratio] 6.8 mg/mg 10-20 [facility] - CoagulationOrde red By: Jey Benitez on 12-05-2022 aPTT Coag (Bld) [Time] 31.5 s 24.1-36.2 [facility] PT Coag (PPP) [Time] 13.1 s 11.7-14.9 [facility] Laboratory - Hematology and Cell countsOrdered By: eJy Benitez on 12-05-2022 Erythrocyte distribution width (RBC) [Entitic vol] 54.4 fL 35.1-43.9 [facility] Erythrocyte distribution width (RBC) [Ratio] 16.0 % 11.6-14.6 [facility] Immature granulocytes/100 WBC (Bld) 0.300 % 0.0-0.9 [facility] Comment on above: IG% - Immature Granu locytes (promyelocytes, myelocytes and metamyelocytes) > 1% indicates that a LEFT SHIFT is Present. MCH (RBC) [Entitic mass] 28.4 pg 27.0-32.0 [facility] Nucleated RBC/100 WBC (Bld) [Ratio] 0 % 0-5 [facility] MCHC Auto (RBC) [Mass/Vol]Or dered By: Jey Benitez on 12-05-2022 MCHC (RBC) [Mass/Vol] 30.8 g/dL 32-[address] [facility] No Panel InformationOrdered By: Jey Benitez on 12-05-2022 Estimated Creatinine Clearance Calc 5.05 ml/min [facility] Estimated GFR (MDRD) Amer 7 mL/min >60 [facility] Comment on above: GFR Calc Estimated GFR (MDRD) Non-Af Amer 6 mL/min >60 [facility] Comment on above: Non- GFR Calc Troponin I High Sensitivity 56 pg/mL 3.0-54.0 [facility] Comment on above: Please Note: New Cathleen t Units and Gender Specific Reference Ranges. For more information see Policy Stat Procedure [place] High Sensitivity Troponin (TNIH) and attachments. Platelets bldOrdered By: Silvia Benitez on 12-05-2022 Platelets (Bld) [#/Vol] 121 10*3/uL 150-450 [facility] Serum or plasma calcium prosper urement (mass/volume)Ordered By: Jey Benitez on 12-05-2022 Calcium [Mass/Vol] 8.7 mg/dL 8.5-10.1 [facility] Serum or plasma creatinine m easurement (mass/volume)Ordered By: Jey Benitez on 12-05-2022 Creatinine [Mass/Vol] 6.91 mg/dL 0.55-1.[address] [facility] Comment on above: The validity of the calculated GFR & GFRAA in patients over 70 years has not been determined. Clinical correlation is essential. Serum or plasma urea nitroge n measurement (mass/volume)Ordered By: Jey Benitez on 12-05-2022 Urea nitrogen [Mass/Vol] 47 mg/dL 7-18 [facility] Thin prep Papanicolaou smear with manual screeningOrdered By: Jey Benitez on 12-05-2022 Thin prep Papanicolaou smear with manual screening 5 5-15 [facility] Absolute lymphocyte countOrd ered By: Dr. Patrick on 07-19-2022 Lymphocytes Auto (Unsp spec) [#/Vol] 2.68 10*3/uL 0.83-4.51 [facility] Basophil percentageOrdered B y: Dr. Patrick on 07-19-2022 Basophil percentage 6.7 mg/dL 2.5-4.9 [facility] Basophils/100 WBC (Bld) 1.3 % 0-1 [facility] Chloride [Moles/Vol] 96 mmol/L 98-107 [facility] Eosinophils/100 WBC (Bld) 4.3 % 0-5 [facility] Glucose [Mass/Vol] 80 mg/dL 74-106 [facility] Neutrophils (Bld) [#/Vol] 3.3 10*3/uL 2.0-7.7 [facility] Neutrophils/100 WBC (Bld) 46.5 % 47-70 [facility] Potassium [Moles/Vol] 5.0 mmol/L 3.5-5.[address] [facility] Sodium [Moles/Vol] 135 mmol/L 136-145 [facility] WBC (Bld) [#/Vol] 7.2 10*3/uL 4.4-11.0 [facility] Blood erythrocytes count (nu mber/volume)Ordered By: Dr. Patrick on 07-19-2022 RBC (Bld) [#/Vol] 3.59 10*6/uL 4.2-5.4 [facility] Blood hemoglobin measurement (mass/volume)Ordered By: Dr. Patrick on 07-19-2022 Hemoglobin (Bld) [Mass/Vol] 10.3 g/dL 12.0-15.0 [facility] Blood lymphocytes/100 leukoc ytesOrdered By: Dr. Patrick on 07-19-2022 Lymphocytes/100 WBC (Bld) 37.4 % 19-41 [facility] Blood monocytes/100 leukocyt esOrdered By: Dr. Patrick on 07-19-2022 Monocytes/100 WBC (Bld) 10.2 % 0-10 [facility] Blood platelet mean volumeOr dered By: Dr. Patrick on 07-19-2022 Platelet mean volume (Bld) [Entitic vol] 10.6 fL 6.2-12.0 [facility] COVID-19 virus antigen assay Ordered By: Dr. Feliciano on 07-19-2022 SARS-CoV-2 (COVID-19) Ag IA.rapid Ql (Resp) [facility] Determination of erythrocyte mean corpuscular volume (MCV)Ordered By: Dr. Patrick on 07-19-2022 MCV (RBC) [Entitic vol] 89.7 fL 81-99 [facility] Hematocrit Auto (Bld) [Volum e fraction]Ordered By: Dr. Patrick on 07-19-2022 Hematocrit (Bld) [Volume fraction] 32.2 % 37-47 [facility] - Chemistry and C hemistry - challengeOrdered By: Dr. Patrick on 07-19-2022 CO2 [Moles/Vol] 30.0 mmol/L 21.0-32.0 [facility] Magnesium [Mass/Vol] 2.3 mg/dL 1.6-2.6 [facility] Urea nitrogen/Creatinine [Mass ratio] 5.9 mg/mg 10-20 [facility] - Hematology and Cell countsOrdered By: Dr. Patrick on 07-19-2022 Erythrocyte distribution width (RBC) [Entitic vol] 46.8 fL 35.1-43.9 [facility] Erythrocyte distribution width (RBC) [Ratio] 14.3 % 11.6-14.6 [facility] Immature granulocytes/100 WBC (Bld) 0.300 % 0.0-0.9 [facility] Comment on above: IG% - Immature Granu locytes (promyelocytes, myelocytes and metamyelocytes) > 1% indicates that a LEFT SHIFT is Present. MCH (RBC) [Entitic mass] 28.7 pg 27.0-32.0 [facility] Nucleated RBC/100 WBC (Bld) [Ratio] 0 % 0-5 [facility] MCHC Auto (RBC) [Mass/Vol]Or dered By: Dr. Patrick on 07-19-2022 MCHC (RBC) [Mass/Vol] 32.0 g/dL 32-[address] [facility] No Panel InformationOrdered By: Dr. Patrick on 07-19-2022 Estimated Creatinine Clearance Calc 4.12 ml/min [facility] Estimated GFR (MDRD) Amer 6 mL/min >60 [facility] Comment on above: GFR Calc Estimated GFR (MDRD) Non-Af Amer 5 mL/min >60 [facility] Comment on above: Non- GFR Calc Platelets bldOrdered By: Dr. Patrick on 07-19-2022 Platelets (Bld) [#/Vol] 146 10*3/uL 150-450 [facility] Serum or plasma calcium prosper urement (mass/volume)Ordered By: Dr. Patrick on 07-19-2022 Calcium [Mass/Vol] 8.4 mg/dL 8.5-10.1 [facility] Serum or plasma creatinine m easurement (mass/volume)Ordered By: Dr. Patrick on 07-19-2022 Creatinine [Mass/Vol] 8.47 mg/dL 0.55-1.[address] [facility] Comment on above: Critical Result(s) C alled at: 05:29:35 07/19/2022 by: JUNIE Schreiber RN ICU. Results read back by same.The validity of the calculated GFR & GFRAA in patients over 70 years has not been determined. Clinical correlation is essential. Serum or plasma urea nitroge n measurement (mass/volume)Ordered By: Dr. Patrick on 07-19-2022 Urea nitrogen [Mass/Vol] 50 mg/dL 7-18 [facility] Thin prep Papanicolaou smear with manual screeningOrdered By: Dr. Patrick on 07-19-2022 Thin prep Papanicolaou smear with manual screening 9 5-15 [facility] Basophil percentageOrdered B y: Dr. Patrick on 07-18-2022 Bilirubin [Mass/Vol] 0.50 mg/dL 0.20-1.00 [facility] Comment on above: For patients on eltr ombopag therapy, use of Dimension [place] TBIL is not recommended. Cholesterol [Mass/Vol] 104 mg/dL <200 [facility] Comment on above: <200 mg/dL Desirable 200-240 mg/dL Borderline >240 mg/dL High Risk Protein [Mass/Vol] 6.1 g/dL 6.4-8.2 [facility] Triglyceride [Mass/Vol] 31 mg/dL <199 [facility] Comment on above: The drugs N-Acetylcy steine and Metamizole may falsely depress this assay.Serum Triglycerides Reference Interval Normal <150 mg/dL Borderline high 150 - 199 mg/dL High 200 - 499 mg/dL Very High > or = 500 mg/dL Laboratory - Chemistry and C hemistry - challengeOrdered By: Dr. Patrick on 07-18-2022 ALP [Catalytic activity/Vol] 58 U/L 45-117 [facility] ALT [Catalytic activity/Vol] 13 U/L 13-56 [facility] Globulin (S) [Mass/Vol] 3.2 g/dL 2.2-4.2 [facility] No Panel InformationOrdered By: Dr. Patrick on 07-18-2022 Thyroid Stimulating Hormone (TSH) 2.18 uIU/mL 0.358-3.74 [facility] Serum or plasma albumin prosper urement (mass/volume)Ordered By: Dr. Patrick on 07-18-2022 Albumin [Mass/Vol] 2.9 g/dL 3.2-5.0 [facility] Serum or plasma albumin/glob ulin mass ratioOrdered By: Dr. Patrick on 07-18-2022 Albumin/Globulin [Mass ratio] 0.9 {ratio} 0.9-2.4 [facility] Serum or plasma cholesterol in HDL measurement (mass/volume)Ordered By: Dr. Patrick on 07-18-2022 Cholesterol in HDL [Mass/Vol] 54 mg/dL >40 [facility] Comment on above: The drugs N-Acetylcy steine and Metamizole may falsely depress this assay. Reference Range HDL <40 mg/dL Low HDL Cholesterol HDL >or= 60 mg/dL High HDL Cholesterol Serum or plasma cholesterol in VLDL measurement (mass/volume)Ordered By: Dr. Patrick on 07-18-2022 Cholesterol in VLDL [Mass/Vol] 6 mg/dL 5-40 [facility] Serum or plasma low density lipoprotein (LDL) cholesterol measurement (mass/volume)Ordered By: Dr. Patrick on 07-18-2022 Cholesterol in LDL [Mass/Vol] 44 mg/dL 0-130 [facility] Thin prep Papanicolaou smear with manual screeningOrdered By: Dr. Patrick on 07-18-2022 Thin prep Papanicolaou smear with manual screening 16 U/L 15-37 [facility] INR in Blood by Coagulation assayOrdered By: Dr. Benitez on 07-17-2022 INR Coag (Bld) [Relative time] 1.0 {INR} [facility] - CoagulationOrde red By: Dr. Benitez on 07-17-2022 aPTT Coag (Bld) [Time] 29.2 s 24.1-36.2 [facility] PT Coag (PPP) [Time] 12.9 s 11.7-14.9 [facility] No Panel InformationOrdered By: Dr. Benitez on 07-17-2022 Troponin I High Sensitivity 37 pg/mL 3.0-54.0 [facility] Comment on above: Please Note: New Cathleen t Units and Gender Specific Reference Ranges. For more information see Policy Stat Procedure [place] High Sensitivity Troponin (TNIH) and attachments. Whole blood hemoglobin A1c/t otal hemoglobin ratio (mass fraction)Ordered By: Dr. Patrick on 07-17-2022 HbA1c (Bld) [Mass fraction] 5.2 % 3.8-5.6 [facility] Comment on above: Normal < 5.7 % Predi abetic 5.7 - 6.4 % Diabetic >or= 6.5 % Please note range changes. Vital Signs Date Time Vital Sign Value Performing Clinician Faci lity 01-18-2025 23:42-0400 Body temperature 98.1 [degF] Dr. Kishan Camejo MD Work Phone: [facility] 01-18-2025 23:42-0400 Diastolic blood pressure 74 mm[Hg] Dr. Kishan Camejo MD Work Phone: [facility] 01-18-2025 23:42-0400 Heart rate 91 /min Dr. Kishan Camejo MD Work Phone: [facility] 01-18-2025 23:42-0400 Respiratory rate 16 /min Dr. Kishan Camejo MD Work Phone: [facility] 01-18-2025 23:42-0400 SaO2% (BldA) [Mass fraction] 99 % Dr. Kishan Camejo MD Work Phone: [facility] 01-18-2025 23:42-0400 Systolic blood pressure 175 mm[Hg] Dr. Kishan Camejo MD Work Phone: [facility] 01-18-2025 19:32-0400 Body mass index (BMI) [Ratio] 23.1 kg/m2 Dr. Kishan Camejo MD Work Phone: [facility] 01-18-2025 19:32-0400 Body weight 59.[address] Kishan Camejo MD Work Phone: [facility] 01-18-2025 18:48-0400 Body height 160.[address] Kishan Camejo MD Work Phone: [facility] 08-03-2023 15:54-0400 Body temperature 97.6 [degF] Dr. Wayne Leahy Work Phone: [facility] 08-03-2023 15:54-0400 Diastolic blood pressure 82 mm[Hg] Dr. Wayne Leahy Work Phone: [facility] 08-03-2023 15:54-0400 Heart rate 80 /min Dr. Wayne Leahy Work Phone: [facility] 08-03-2023 15:54-0400 Respiratory rate 18 /min Dr. Wayne Leahy Work Phone: [facility] 08-03-2023 15:54-0400 SaO2% (BldA) [Mass fraction] 98 % Dr. Wayne Leahy Work Phone: [facility] 08-03-2023 15:54-0400 Systolic blood pressure 166 mm[Hg] Dr. Wayne Leahy Work Phone: 1(501)674-551110 [place] [address] 08-03-2023 14:18-0400 Body height 160.[address] Wayne Leahy Work Phone: 2(628)008-932691 [address] 08-03-2023 14:18-0400 Body mass index (BMI) [Ratio] 25.5 kg/m2 Dr. Wayne Leahy Work Phone: 3(995)834-999210 [place] [address] 08-03-2023 14:18-0400 Body weight 65.[address] Wayne Leahy Work Phone: 7(157)545-227091 [address] 06-29-2023 13:20-0500 Body mass index (BMI) [Ratio] 25.8 kg/m2 Dr. Wayne Leahy Work Phone: 6(668)864-935891 [address] 06-29-2023 13:20-0500 Body temperature 97.4 [degF] Dr. Wayne Leahy Work Phone: 5(959)582-217510 [place] [address] 06-29-2023 13:20-0500 Body weight 66.[address] Wayne Leahy Work Phone: 5(207)230-330810 [place] [address] 06-29-2023 13:20-0500 Diastolic blood pressure 73 mm[Hg] Dr. Wayne Leahy Work Phone: 2(832)478-045210 [place] [address] 06-29-2023 13:20-0500 Heart rate 71 /min Dr. Wayne Leahy Work Phone: 6(322)091-282710 [place] [address] 06-29-2023 13:20-0500 Respiratory rate 17 /min Dr. Wayne Leahy Work Phone: [facility] 06-29-2023 13:20-0500 SaO2% (BldA) [Mass fraction] 96 % Dr. Wayne Leahy Work Phone: [facility] 06-29-2023 13:20-0500 Systolic blood pressure 166 mm[Hg] Dr. Wayne Leahy Work Phone: 2(085)411-109910 [place] [address] 06-13-2023 16:40-0500 Diastolic blood pressure 74 mm[Hg] Dr. Wayne Leahy Work Phone: 8(194)550-133205 [place] [address] 06-13-2023 16:40-0500 Heart rate 71 /min Dr. Wayne Leahy Work Phone: 6(671)539-488910 [place] [address] 06-13-2023 16:40-0500 Respiratory rate 14 /min Dr. Wayne Leahy Work Phone: 9(912)138-120005 [place] [address] 06-13-2023 16:40-0500 SaO2% (BldA) [Mass fraction] 97 % Dr. Wayne Leahy Work Phone: 9(834)058-917105 [place] [address] 06-13-2023 16:40-0500 Systolic blood pressure 128 mm[Hg] Dr. Wayne Leahy Work Phone: 3(902)078-068005 [place] [address] 06-13-2023 14:57-0500 Body height 160.[address] Wayne Leahy Work Phone: 2(702)620-806605 [place] [address] 06-13-2023 14:57-0500 Body mass index (BMI) [Ratio] 26.2 kg/m2 Dr. Wayne Leahy Work Phone: 3(689)483-416305 [place] [address] 06-13-2023 14:57-0500 Body temperature 98.4 [degF] Dr. Wayne Leahy Work Phone: 0(413)815-324405 [place] [address] 06-13-2023 14:57-0500 Body weight 67.[address] Wayne Leahy Work Phone: 9(210)976-812410 [place] [address] 05-02-2023 09:05-0500 Body height 160.[address] Wayne Leahy Work Phone: 7(055)393-953810 [place] [address] 05-02-2023 09:05-0500 Body mass index (BMI) [Ratio] 25.4 kg/m2 Dr. Wayne Leahy Work Phone: 9(818)030-339505 [place] [address] 05-02-2023 09:05-0500 Body temperature 98 [degF] Dr. Wayne Leahy Work Phone: [facility] 05-02-2023 09:05-0500 Body weight 65.[address] Wayne Leahy Work Phone: [facility] 05-02-2023 09:05-0500 Diastolic blood pressure 70 mm[Hg] Dr. Wayne Leahy Work Phone: [facility] 05-02-2023 09:05-0500 Heart rate 83 /min Dr. Wayne Leahy Work Phone: 4(093)559-752810 [place] [address] 05-02-2023 09:05-0500 Respiratory rate 17 /min Dr. Wayne Leahy Work Phone: [facility] 05-02-2023 09:05-0500 SaO2% (BldA) [Mass fraction] 96 % Dr. Wayne Leahy Work Phone: 7(299)182-786010 [place] [address] 05-02-2023 09:05-0500 Systolic blood pressure 148 mm[Hg] Dr. Wayne Leahy Work Phone: 6(065)545-705510 [place] [address] 03-16-2023 14:45-0400 Body temperature 97.9 [degF] Dr. Wayne Leahy Work Phone: [facility] 03-16-2023 14:45-0400 Diastolic blood pressure 54 mm[Hg] Dr. Wayne Leahy Work Phone: [facility] 03-16-2023 14:45-0400 Heart rate 82 /min Dr. Wayne Leahy Work Phone: [facility] 03-16-2023 14:45-0400 Respiratory rate 16 /min Dr. Wayne Leahy Work Phone: [facility] 03-16-2023 14:45-0400 SaO2% (BldA) [Mass fraction] 98 % Dr. Wayne Leahy Work Phone: [facility] 03-16-2023 14:45-0400 Systolic blood pressure 143 mm[Hg] Dr. Wayne Leahy Work Phone: [facility] 03-16-2023 10:00-0400 Body temperature 98.5 [degF] Dr. Wayne Leahy Work Phone: 2(518)502-585310 [place] [address] 03-16-2023 10:00-0400 Diastolic blood pressure 60 mm[Hg] Dr. Wayne Leahy Work Phone: 3(148)339-794710 [place] [address] 03-16-2023 10:00-0400 Heart rate 89 /min Dr. Wayne Leahy Work Phone: 3(067)259-421210 [place] [address] 03-16-2023 10:00-0400 Systolic blood pressure 160 mm[Hg] Dr. Wayne Leahy Work Phone: 2(778)904-901105 [place] [address] 03-16-2023 09:52-0400 Body mass index (BMI) [Ratio] 27.6 kg/m2 Dr. Wayne Leahy Work Phone: 9(289)123-886505 [place] [address] 03-15-2023 16:45-0400 Body height 160.[address] Wayne Leahy Work Phone: 1(187)260-310905 [place] [address] 03-15-2023 16:45-0400 Body weight 70.[address] Wayne Leahy Work Phone: 4(687)253-708205 [place] [address] 12-06-2022 17:00-0400 Body mass index (BMI) [Ratio] 25.3 kg/m2 Dr. Wayne Leahy Work Phone: 4(153)631-551505 [place] [address] 12-06-2022 16:28-0400 Body height 162.[address] Wayne Leahy Work Phone: 3(551)053-778810 [place] [address] 12-06-2022 16:28-0400 Body weight [address] Wayne Leahy Work Phone: 4(940)298-356010 [place] [address] 12-06-2022 16:15-0400 Body temperature 98.3 [degF] Dr. Wayne Leahy Work Phone: 2(656)001-194605 [place] [address] 12-06-2022 16:15-0400 Diastolic blood pressure 65 mm[Hg] Dr. Wayne Leahy Work Phone: 8(818)359-226305 [place] [address] 12-06-2022 16:15-0400 Heart rate 79 /min Dr. Wayne Leahy Work Phone: [facility] 12-06-2022 16:15-0400 Respiratory rate 16 /min Dr. Wayne Leahy Work Phone: [facility] 12-06-2022 16:15-0400 SaO2% (BldA) [Mass fraction] 95 % Dr. Wayne Leahy Work Phone: 1(165)883-790110 [place] [address] 12-06-2022 16:15-0400 Systolic blood pressure 141 mm[Hg] Dr. Wayne Leahy Work Phone: 7(960)901-643505 [place] [address] 12-05-2022 13:58-0400 Body temperature 98.6 [degF] Dr. Wayne Leahy Work Phone: 3(246)480-408705 [place] [address] 12-05-2022 13:58-0400 Diastolic blood pressure 60 mm[Hg] Dr. Wayne Leahy Work Phone: 8(201)800-797310 [place] [address] 12-05-2022 13:58-0400 Heart rate 80 /min Dr. Wayne Leahy Work Phone: 0(461)574-343910 [place] [address] 12-05-2022 13:58-0400 Respiratory rate 14 /min Dr. Wayne Leahy Work Phone: 7(478)140-638110 [place] [address] 12-05-2022 13:58-0400 SaO2% (BldA) [Mass fraction] 96 % Dr. Wayne Leahy Work Phone: 1(704)948-479210 [place] [address] 12-05-2022 13:58-0400 Systolic blood pressure 140 mm[Hg] Dr. Wayne Leahy Work Phone: 4(965)390-560710 [place] [address] 12-05-2022 12:37-0400 Body mass index (BMI) [Ratio] 25.9 kg/m2 Dr. Wayne Leahy Work Phone: 7(535)196-630810 [place] [address] 12-05-2022 12:37-0400 Body weight 68.[address] Wayne Leahy Work Phone: 8(572)408-380010 [place] [address] 12-05-2022 12:36-0400 Body height 162.[address] Wayne Leahy Work Phone: 5(235)634-831491 [address] 08-16-2022 13:13-0400 Body mass index (BMI) [Ratio] 26.4 kg/m2 Dr. Wayne Leahy Work Phone: 8(954)708-529405 [place] [address] 08-16-2022 13:13-0400 Body weight 69.[address] Wayne Leahy Work Phone: 8(906)396-739905 [place] [address] 08-16-2022 13:13-0400 Diastolic blood pressure 66 mm[Hg] Dr. Wayne Leahy Work Phone: 1(289)719-499205 [place] [address] 08-16-2022 13:13-0400 Respiratory rate 18 /min Dr. Wayne Leahy Work Phone: 7(274)925-482705 [place] [address] 08-16-2022 13:13-0400 SaO2% (BldA) [Mass fraction] 94 % Dr. Wayne Leahy Work Phone: 3(609)671-765505 [place] [address] 08-16-2022 13:13-0400 Systolic blood pressure 131 mm[Hg] Dr. Wayne Leahy Work Phone: 2(113)436-454505 [place] [address] 07-19-2022 14:00-0500 Body temperature 98.1 [degF] Dr. Wayne Leahy Work Phone: 7(564)784-120005 [place] [address] 07-19-2022 14:00-0500 Diastolic blood pressure 57 mm[Hg] Dr. Wayne Leahy Work Phone: 5(813)783-600805 [place] [address] 07-19-2022 14:00-0500 Heart rate 82 /min Dr. Wayne Leahy Work Phone: 2(043)320-448905 [place] [address] 07-19-2022 14:00-0500 Respiratory rate 15 /min Dr. Wayne Leahy Work Phone: 5(279)624-888805 [place] [address] 07-19-2022 14:00-0500 SaO2% (BldA) [Mass fraction] 97 % Dr. Wayne Leahy Work Phone: 1(416)048-414705 [place] [address] 07-19-2022 14:00-0500 Systolic blood pressure 120 mm[Hg] Dr. Wayne Leahy Work Phone: [facility] 07-19-2022 06:00-0500 Body mass index (BMI) [Ratio] 26.1 kg/m2 Dr. Wayne Leahy Work Phone: [facility] 07-19-2022 06:00-0500 Body weight 69.[address] Wayne Leahy Work Phone: [facility] 07-18-2022 08:05-0500 Body height 162.[address] Wayne Leahy Work Phone: [facility] Encounters Encounter Date Encounter Type Care Provider Facility Start: 01-18-2025 End: 01-18-2025 Emergency department patient visit Dr. Kishan Camejo MD Work Phone: -Emergency Department Work Phone: Start: 08-01-2024 End: 08-01-2024 ambulatory Kishan Camejo Facility:[facility] Start: 07-17-2024 ambulatory Kishan Camejo Facility:[facility] Start: 07-04-2024 ambulatory Kishan Camejo Facility:[facility] Start: 07-03-2024 ambulatory Jim Shepherd Facility:[facility] Start: 07-03-2024 End: 07-05-2024 Evaluation and management of inpatient Jim Joao Facility:[facility] Start: 06-27-2024 ambulatory Jimfrank Shepherd Facility:[facility] Start: 06-27-2024 End: 06-27-2024 ambulatory Jim Joao Facility:[facility] Start: 06-08-2024 ambulatory Jimfrank Shepherd Facility:[facility] Start: 06-08-2024 End: 06-08-2024 ambulatory Kishan Camejo Facility:[facility] Start: 06-06-2024 ambulatory Jimfrank Shepherd Facility:[facility] Start: 05-30-2024 End: 05-30-2024 ambulatory Kishan Camejo Facility:[facility] Start: 04-24-2024 End: 04-24-2024 Emergency department patient visit Jolie Panda Facility:[facility] Start: 03-12-2024 End: 03-12-2024 ambulatory Kishan Camejo Facility:[facility] Start: 03-12-2024 End: 03-12-2024 ambulatory Kishan Camejo Facility:[facility] Start: 08-03-2023 End: 08-03-2023 Emergency department patient visit Dr. Wayne Leahy Work Phone: [facility] Work Phone: Start: 06-29-2023 End: 06-29-[address] Wayne Leahy Work Phone: [facility] Work Phone: Start: 06-13-2023 End: 06-13-2023 Emergency department patient visit Dr. Wayne Leahy Work Phone: [facility] Work Phone: Start: 05-02-2023 End: 05-02-[address] Wayne Leahy Work Phone: [facility] Work Phone: Start: 05-02-2023 End: 05-02-[address] Wayne Leahy Work Phone: [facility] Work Phone: Start: 05-02-2023 End: 05-02-[address] Wayne Leahy Work Phone: [facility] Work Phone: Start: 03-29-2023 End: 03-29-[address] Wayne Leahy Work Phone: [facility] Work Phone: Start: 03-16-2023 Non-patient / Non-visit Dr. Mario Leahy Work Phone: [facility] Work Phone: Start: 03-15-2023 Non-patient / Non-visit Dr. Mario Leahy Work Phone: [facility] Work Phone: Start: 03-15-2023 End: 03-16-2023 Evaluation and management of inpatient [facility]. Wayne Leah[facility] Start: 03-15-2023 End: 03-16-[address] Wayne Leahy Work Phone: [facility] Work Phone: Start: 12-06-2022 Non-patient / Non-visit Dr. Mario Leahy Work Phone: [facility] Work Phone: Start: 12-06-2022 Non-patient / Non-visit Dr. Mario Leahy Work Phone: [facility] Start: 12-05-2022 Non-patient / Non-visit Dr. Mario Leahy Work Phone: [facility] Work Phone: Start: 12-05-2022 End: 12-06-2022 Evaluation and management of inpatient Dr. Wayne Leahy [facility] Work [facility] Start: 12-05-2022 End: 12-06-[address] Wayne Leahy Work Phone: [facility] Work Phone: Start: 08-16-2022 End: 08-16-[address] Wayne Leahy Work Phone: [facility] Work Phone: Start: 07-19-2022 Non-patient / Non-visit Dr. Mairo Leahy Work Phone: [facility] Start: 07-19-2022 Non-patient / Non-visit Dr. Mario Leahy Work Phone: [facility] Start: 07-18-2022 Non-patient / Non-visit Dr. Mario Leahy Work Phone: [facility] Start: 07-18-2022 Non-patient / Non-visit Dr. Mario Leahy Work Phone: [facility] Start: 07-17-2022 Non-patient / Non-visit Dr. Mario Leahy Work Phone: [facility] Start: 07-17-2022 End: 07-19-2022 Evaluation and management of inpatient Dr. Wayne Leahy Work Phone: [facility] Start: 06-01-2022 End: 06-01-[address] Wayne Leahy Work Phone: [facility] Start: 04-23-2022 End: 04-23-[address] Wayne Leahy Work Phone: [facility] Start: 12-15-2019 End: 12-15-2019 Patient encounter procedure UNKNOWN PROVIDER Facility:[facility] Procedures Date Procedure Procedure Detail Performing Clinician Start: 01-18-[address] Kishan Camejo MD Work Phone: Start: 08-03-2023 Plain x-ray of pelvi s [...] p recorder Dr. Wayne Leahy Work Phone: H/O: renal dialysis History of r enal dialysis Dr. Kishan Camejo MD Work Phone: Viral antigen assay Dr. Wayne Leahy Work Phone: Plan of Treatment Date Care Activity Detail Author Start: 01-18-2025 [facility] Start: 01-18-2025 Chest 1 View (Portable) Chest 1 View (Portable) [facility] Start: 01-18-2025 XR Chest Single view [facility] Start: 08-03-2023 [facility] Start: 06-13-2023 [facility] Start: 05-02-2023 Foss and lambda lig ht chains [facility] Start: 05-02-2023 Thiamine measurement [facility] Start: 03-16-2023 Patient discharge [facility] Start: 03-15-2023 Following clinical p athway protocol [facility] Start: 03-15-2023 Ambulation without limitation [facility] Start: 03-15-2023 Assessment of risk o f venous thromboembolism [facility] Start: 03-15-2023 Cardiac monitoring [facility] Start: 03-15-2023 Catheterization of vein [facility] Start: 03-15-2023 Elevation of head of bed [facility] Start: 03-15-2023 Exercises [facility] Start: 03-15-[address] anned interventions [facility] Start: 03-15-2023 Insertion of cathete r into peripheral vein [facility] Start: 03-15-2023 Measuring intake and output [facility] Start: 03-15-2023 Notification of physician [facility] Start: 03-15-2023 Oxygen therapy [facility] Start: 03-15-2023 Patient referral to dietitian [facility] Start: 03-15-2023 Providing care accor ding to standard [facility] Start: 03-15-2023 Referral to a p supervisor [facility] Start: 03-15-2023 Referral to occupati onal therapist [facility] Start: 03-15-2023 Referral to service [facility] Start: 03-15-2023 Speech therapy assessment [facility] Start: 03-15-2023 Tobacco use cessatio n education [facility] Start: 03-15-2023 [facility] Start: 03-15-2023 Vital signs measurements [facility] Start: 03-15-2023 Verification routine [facility] Start: 03-15-2023 Admission procedure [facility] Start: 03-15-2023 Inhalation therapy procedure [facility] Start: 03-15-2023 Patient referral to dietitian [facility] Start: 12-06-2022 Patient discharge [facility] Start: 12-05-2022 Following clinical p athway protocol [facility] Start: 12-05-2022 Ambulation without limitation [facility] Start: 12-05-2022 Assessment of risk o f venous thromboembolism [facility] Start: 12-05-2022 Cardiac monitoring [facility] Start: 12-05-2022 Catheterization of vein [facility] Start: 12-05-2022 Continuous pulse oximetry [facility] Start: 12-05-2022 Elevation of head of bed [facility] Start: 12-05-2022 Exercises [facility] Start: 12-05-[address] anned interventions [facility] Start: 12-05-2022 Inhalation therapy procedure [facility] Start: 12-05-2022 Insertion of cathete r into peripheral vein [facility] Start: 12-05-2022 Measuring intake and output [facility] Start: 12-05-2022 Notification of physician [facility] Start: 12-05-2022 Oxygen therapy [facility] Start: 12-05-2022 Patient referral to dietitian [facility] Start: 12-05-2022 Providing care accor ding to standard [facility] Start: 12-05-2022 Provision of activit y privileges [facility] Start: 12-05-2022 Referral to a p supervisor [facility] Start: 12-05-2022 Referral to occupati onal therapist [facility] Start: 12-05-2022 Referral to service [facility] Start: 12-05-2022 Speech therapy assessment [facility] Start: 12-05-2022 Tobacco use cessatio n education [facility] Start: 12-05-2022 [facility] Start: 12-05-2022 MRI of brain without contrast Brain without Contrast [facility] Start: 12-05-2022 Verification routine [facility] Start: 12-05-2022 Admission procedure [facility] Start: 12-05-2022 Oxygen therapy [facility] Start: 12-05-2022 [facility] Start: 07-19-2022 Patient discharge [facility] Start: 07-18-2022 Bleeding precautions [facility] Start: 07-17-2022 Following clinical p athway protocol [facility] Start: 07-17-2022 [facility] Start: 07-17-2022 Assessment of risk o f venous thromboembolism [facility] Start: 07-17-2022 Bedrest [facility] Start: 07-17-2022 Cardiac monitoring [facility] Start: 07-17-2022 Catheterization of vein [facility] Start: 07-17-2022 Continuous pulse oximetry [facility] Start: 07-17-2022 Elevation of head of bed [facility] Start: 07-17-2022 Exercises [facility] Start: 07-17-[address] anned interventions [facility] Start: 07-17-2022 Incentive spirometry [facility] Start: 07-17-2022 Insertion of cathete r into peripheral vein [facility] Start: 07-17-2022 Measuring intake and output [facility] Start: 07-17-2022 Notification of physician [facility] Start: 07-17-2022 Oxygen therapy [facility] Start: 07-17-2022 Patient referral to dietitian [facility] Start: 07-17-2022 Providing care accor ding to standard [facility] Start: 07-17-2022 Referral to a p supervisor [facility] Start: 07-17-2022 Referral to occupati onal therapist [facility] Start: 07-17-2022 Referral to service [facility] Start: 07-17-2022 Speech therapy assessment [facility] Start: 07-17-2022 Tobacco use cessatio n education [facility] Start: 07-17-2022 Vital signs measurements [facility] Start: 07-17-2022 [facility] Start: 07-17-2022 Admission procedure [facility] Start: 07-17-2022 Bleeding precautions [facility] Start: 07-17-2022 Consultation [facility] Start: 07-17-2022 Inhalation therapy procedure [facility] Start: 07-17-2022 Patient referral to dietitian [facility] Foss/lambda light c hugh ratio [facility] Lambda light chains. free [Mass/volume] in Serum or Plasma [facility] Patient Education [facility] Work Phone: Patient referral [facility] Work Phone: Urine kappa light ch ain measurement [facility] Immunizations Immunization Date Immunization Notes Care Provider Rui lauro 01-05-[address] Wayne Leahy Work Phone: [facility] 02-16-2016 influenza, injectabl e, quadrivalent, preservative free Dr. Wayne Leahy Work Phone: [facility] 02-16-2016 influenza, seasonal, injectable Dr. Wayne Leahy Work Phone: [facility] 07-24-2015 pneumococcal vaccine , unspecified formulation Dr. Wayne Leahy Work Phone: [facility] 03-24-[address] Wayne Leahy Work Phone: [facility] Payers Date Payer Category Payer Self-pay [id number] 2023 Medicaid [id number] 2023 Unknown [id number] 2019 Unknown [id number] 2014 Medicare [id number] 1935 Unknown [id number] 2.16. [id number] Unknown [id number] 2.16.8 [id number] Unknown [id number] 2.16.8 [id number] Unknown [id number] 2.16.8 [id number] Unknown [id number] 2.16.8 40.1.386025.3.579.2.462 Unknown [id number] 2.16.8 [id number] Unknown [id number] 2.16.8 40.1.374883.3.579.2.462 Unknown [id number] 2.16.8 40.1.381343.3.579.2.462 Unknown [id number] 2.16.8 40.1.301677.3.579.2.462 Unknown [id number] 2.16.8 40.1.144293.3.579.2.462 Unknown [id number] 2.16.8 40.1.272226.3.579.2.462 Unknown [id number] 2.16.8 40.1.909040.3.579.2.462 Unknown [id number] 2.16.8 40.1.426438.3.579.2.462 Unknown [id number] 2.16.8 40.1.032742.3.579.2.462 Unknown [id number] 2.16.8 40.1.232516.3.579.2.462 Unknown [id number] 2.16.8 40.1.141744.3.579.2.462 Unknown [id number] 2.16.8 [id number] Unknown [id number] 2.16.8 [id number] Unknown [id number] 2.16.8 [id number] Social History Date Type Detail Facility Start: 07-19-2022 End: 05-02-2023 Tobacco smoking status NHIS Unknown if ever smoked [facility] Start: 10-26-2019 None [facility] Start: 10-26-2019 Fdc [facility] Start: 07-19-2022 Non-smoker [facility] Start: 1935 Sex Assigned At Female W [facility] Start: 01-18-2025 Tobacco smoking stat us DEIS Never smoked tobacco (finding) [facility] Medical Equipment Procedure Code Equipment Code [...] status Ambulates;Rich r;Bathroom Privilege;Active Range of Motion [facility] Work Phone: 12-06-2022 Functional status Ambulates [facility] Work Phone: 07-19-2022 Functional status Bedrest [facility] Work Phone: Mental Status Date Assessment Result Facility 01-18-2025 Cognitive function Level Of Cons ciousness Awake;Alert;Disoriented [facility] Work Phone: 03-16-2023 Cognitive function Voice/Name [facility] Work Phone: 12-06-2022 Cognitive function Voice/Name [facility] Work Phone: 12-05-2022 Cognitive function Voice/Name [facility] Work Phone: 07-19-2022 Cognitive function Appropriate;Cooperativ e [facility] Work Phone: Clinical Notes 07-20-2019 to 01-18-2025 Note Date & Type Note Facility 01-18-2025 Radiology Diagnostic study note [facility] Imaging Services [address] [place] [address] Chest 1 View (Portable) MR#: [id number] Acct: [id number] Name: NICOLE SALVADOR Rep #: [id number] : 1935 F 89 From: Shadi Zafar MD PCP: Dr. Kishan Camejo MD Status: REG E R Study:Chest 1 View (Portable) Date of Exam: 01/18/25 Exam# [id number] Ordering Dr: Sha Maravilla MD PROCEDURE: CHEST 1 VIEW (PORTABLE) 01/18/2025 REASON FOR EXAM: COUGH TECHNIQUE: Frontal view of the chest. COMPARISON: 03/15/2023 FINDINGS: Lungs/Pleura: No focal consolidation, pneumothorax or sizable pleural effusion. Heart/Mediastinum: Prominent cardiomegaly. Central vascular congestion. Cardiac loop recorder device projects over the left chest wall. Bones/Soft tissues: Degenerative changes of the spine. Left axillary surgical clips. RAD/Chest 1 View (Portable) IMPRESSION: No appreciable consolidation or pleural effusion. Prominent cardiomegaly with vascular congestion. Reading Location: [id number] CC: Dr. Deric Maravilla MD; Dr. Kishan Camejo MD ~ Compensation Intern: Signed [facility] 01-18-2025 Hospital Discharge instructions Additional Instructions Tylenol for pain. Continue to use her glaucoma eyedrops. As prescribed. See Dr. Avila first thing tomorrow morning. Tuesday morning. Call his office at 8 AM. Erythromycin eye ointment twice a day. [facility] Work Phone: 07-05-2024 Note [facility] Medical Records Department [address] [place] [address] Discharge Summary 07/05/24 1322 MR#: [id number] Acct: [id number] Name: NICOLE SALVADOR Rep #: [id number] : 1935 89 From: Jim Jerez DO PCP: Dr. Kishan Camejo MD Status:ADM IN [id number] Prov[facility] Date of Admission: 07/03/24 Primary Care [...] Glaucoma-Continue home eyedrops * Chronic HFpEF-Diastolic in kcmjim-Eneebyvbccd-Bwcxcsgx for volume management * COPD/asthma-Continue home inhalers * Dementia-Continue home memantine Discharge back to group home. DW family at bedside. Medications at Discharge [...] bisacodyl 10 mg rectal suppository 10 mg WA DAILY PRN constipation 08/29/23 donepezil 10 mg tablet 10 mg PO DAILY 08/29/23 magnesium hydroxide 400 mg/5 mL oral suspension (Milk of Magnesia) 5 ml PO DAILY PRN constipation 08/29/23 mineral oil (Fleet Mineral Oil enema) 118 ml WA DAILY PRN constipation 09/12/23 memantine 5 mg [...] Weight / BM (more content not included)... [facility] 08-03-2023 Discharge summary Note Date/Time August 03, 2023 2:29pm [facility] Medical Records Department [address] [place] [address] Emergency Department Summary 08/03/23 MR#: [id number] Acct: [id number] Name: NICOLE SALVADOR Rep #:[id number] : 1935 88 From: Jey Benitez MD [...] can also use her wheelchair in the [facility]. They are to follow-up with orthopedics [...] and aspirin presents via EMS from the [facility] with head injury. Mariola is at the bedside and it was reported that she was standing, trying to get something on her walker, when she fell. She hit the back of her head against the wall. There is no reported loss of consciousness. Patient states that she has scalp tenderness and mild headache. She denies other injury, no neck pain, no other symptoms. [facility] Medical History Acute respiratory failure with [...] she could be return safely to the [facility]. I do not feel she requires [...] Tylenol as needed for pain. Disposition Disposition: [facility] Discharge Location: [address] [facility] [place] What to do if you have Problems For any increased pain, shortness of breath, bleeding, nausea or vomiting, chestpain, or any unexpected problems, contact your Primary Care Provider. Call [facility] ([phone]) or report to the closest Emergency Room. Call 911 if necessary. 08/03/23 1452 <Electronically signed by Jey Benitez MD> Cosigner Signature (if applicable): CC: Dr. Kishan Camejo MD ~ Signed [facility] Work Phone: 1(249) 404-283501-22-2024 Discharge summary Author Jose Thapa [facility] June 13, 2023 3:49pm Note Date/Time June 13, 2023 3 :24pm [facility] Medical Records Department [address] [place] [address] Emergency Department Summary 06/13/23 MR#: [id number] Acct: [id number] Name: NICOLE SALVADOR Rep #:[id number] : 1935 88 From: Jose Thapa MD [...] motor deficits and no sensory deficits noted Ingrid Coma Scale: document GCS findings Spontaneous Obeys [...] your Primary Care Provider. Call [facility] ([phone]) or report to the closest Emergency Room. Call 911 if necessary. 06/13/23 1544 <Electronically signed by Jose Thapa MD> Cosigner Signature (if applicable): CC: Dr. Kishan Camejo MD ~ Signed [facility] Work Phone: [phone] 776-279910-25-2023 Discharge summary Author Micha Jodie [facility] March 16, 2023 11:49am Note Date/Time March 16, 2023 1 1:47am [facility] Medical Records Department [address] [place] [address] Transfer to [facility] MR#: [id number] Acct: [id number] Name: NICOLE SALVADOR Rep #:[id number] : 1935 88 From: Micha newton MD PCP: Dr. Wayne Leahy MD Status:ADM I NO Certification of patient admission REQUIRED AT TIME OF ADMISSION. I CERTIFY THAT POST-HOSPITAL F SERVICES ARE REQUIRED TO BE GIVEN ON AN IN-PATIENT BASIS BECAUSE OF THE ABOVE NAMED PATIENT'S NEED FOR DETENTION CARE ON A CONTINUING BASIS FOR THE CONDITION(S) FOR WHICH HE/SHE WAS RECEIVING IN-PATIENT HOSPITAL SERVICES PRIOR TO HIS/HER TRANSFER TO THE [facility]. 03/16/23 1149<Electronically signed by Micha Feliciano MD> [...] Status: Acute Code(s): R53.1 - Weakness (4) long term resident: Status: Acute Code(s): Z59.3 - Problems [...] in before D/C Order can be placed): [facility] (5) Dementia Qualifiers: Dementia type: vascular dementia 03/16/23 1149 <Electronically signed by Micha Feliciano MD> Cosigner Signature (if applicable): CC: Dr. Kianna Patrick DO; Dr. Wayne Leahy MD ~ [facility] Work Phone: [phone]) 118-339210-24-2023 History and physical note Author Micha Feliciano [facility] March 15, 2023 4:56pm Note Date/Time March 15, 2023 3 :04pm [facility] Medical Records Department [address] [address] H&P Exam - Hospitalist 03/15/23 1456 MR#: [id number] Acct: [id number] Name: NICLOE SALVADOR Rep #:[id number] : 1935 88 From: Micha newton MD PCP: Dr. Wayne Leahy MD Status:ADM I NO Location: ICU ICU02-1 HPI - General General Date of Admission: 03/15/23 HPI Narrative NICOLE SALVADOR, is a 88 F who presents from group home with signs and symptoms consistent with a stroke. She was at dialysis when she developed left-sided weakness and confusion. Does appear that the confusion is resolved as is the left-sided weakness. Stroke alert was called and [facility] neurology recommended inpatient observation with further stroke work-up. She has had significant work-ups in the past with negative MRIs and she had a recent echo inJuly that demonstrated an EF of 65% with stage II diastolic dysfunction. She iscompletely asymptomatic and is alert and oriented person and place. No tPA was given. [facility] Medical History Acute respiratory failure with [...] 78.5 H, Lymph % (Auto) 10.3 L, [place] % (Auto) 8.3, Eos % (Auto) 1.6, [...] with colleagues Charges/Coding Visit Charges Inpatient E&M: 66304 Init Hosp L3 03/15/23 1656 <Electronically signed by Micha Feliciano MD> Cosigner Signature (if applicable): CC: Dr. Micha Feliciano MD; Dr. Wayne Leahy MD~ Signed [facility] Work Phone: [phone] Discharge summary Author Jey Benitez [facility] March 15, 2023 11:59am Note Date/Time March 15, 2023 1 1:33am [facility] Medical Records Department [address] [place] [address] Emergency Department Summary 03/15/23 MR#: [id number] Acct: [id number] Name: NICOLE SALVADOR Rep #:[id number] : 1935 88 From: Jey Benitez MD [...] upper and lower extremity is improving rapidly. [facility] Medical History Acute respiratory failure with [...] 78.5 H Lymph % (Auto) 10.3 L [place] % (Auto) 8.3 Eos % (Auto) 1.6 [...] on hemodialysis Disposition Disposition: Acute Care Hospital [facility] What to do if you have Problems For any increased pain, shortness of breath, bleeding, nausea or vomiting, chestpain, or any unexpected problems, contact your Primary Care Provider. Call [facility] ([phone]) or report to the closest Emergency Room. Call 911 if necessary. 03/15/23 1159 <Electronically signed by Jey Benitez MD> Cosigner Signature (if applicable): CC: Dr. Wayne Leahy MD ~ Signed [facility] Work Phone: [phone]) 624-924807-16-2023 History and physical note Author John Lutz [facility] December 05, 2022 2:28pm Note Date/Time December 05, 2022 2:28 pm [facility] Medical Records Department [address] [place] [address] H&P Exam - Hospitalist 12/05/22 1406 MR#: [id number] Acct: [id number] Name: NICOLE SALVADOR Rep #:[id number] : 1935 87 From: John Lutz MD PCP: Dr. Wayne Leahy MD Status:ADM I NO Location: [place] [address] HPI - General General Date of Service: 12/05/22 Chief Complaint: Slurred speech and gait difficulty HPI Narrative NICOLE SALVADOR, is a 87 [...] negative for acute [facility] patient was subsequently admitted to a monitored bed for further evaluation in the hospital PFSH Medical History Acute respiratory failure with hypoxia [...] % (Auto) 47.1, Lymph % (Auto) 37.2, [place] % (Auto) 10.6 H, Eos % (Auto) [...] above Results were Read Back by Andres Castilol MD to Jey Benitez MD, and understanding [...] Tuesdays and Saturdays consult placed to patient's a p supervisor Dr. Patrick Case already discussed with 3. [...] 18 minutes. Charges/Coding Visit Charges Inpatient E&M: 56873 Init Hosp L3 Procedures Hospitalists Procedures: 76799 Advncd Care Plan 30 Min 12/05/22 1428 <Electronically signed by John Lutz MD> Cosigner Signature (if applicable): CC: Dr. John Lutz MD; Dr. Wayne Leahy MD~ Signed [facility] Work Phone: [phone]) 408-738007-16-2023 Discharge summary Author Jey Benitez [facility] December 05, 2022 1:58pm Note Date/Time December 05, 2022 12:5 1pm [facility] Medical Records Department [address] [place] [address] Emergency Department Summary 12/05/22 MR#: [id number] Acct: [id number] Name: NICOLE SALVADOR Rep #:[id number] : 1935 87 From: Jey Benitez MD PCP: Dr. Wayne Leahy MD Status:REG E R Location: ED HPI History of Present Illness Chief Complaint: Stroke Alert Narrative Narrative: 87-year-old female past medical history of end-stage renal disease, hypertension, presents with her daughter because at yarsanism, she became unresponsive. She became more confused [...] called from triage because of the dysarthria. [facility] Medical History Acute respiratory failure with [...] % (Auto) 47.1 Lymph % (Auto) 37.2 [place] % (Auto) 10.6 H Eos % (Auto) [...] disease (ESRD) Disposition Disposition: Acute Care Hospital [facility] What to do if you have Problems For any increased pain, shortness of breath, bleeding, nausea or vomiting, chestpain, or any unexpected problems, contact your Primary Care Provider. Call [facility] ([phone]) or report to the closest Emergency Room. Call 911 if necessary. 12/05/22 1358 <Electronically signed by Jey Benitez MD> Cosigner Signature (if applicable): CC: Dr. Wayne Leahy MD ~ Signed [facility] Work Phone: [phone]) 399-979202-27-[address] Feliciano [facility] July 19, 2022 2:08pm Note Date/Time July 19, 2022 2:03pm [facility] Medical Records Department [address] [place] [address] Transfer to [facility] MR#: [id number] Acct: [id number] Name: LUCASNICOLE L Rep #:[id number] : 1935 87 From: Micha newton MD PCP: Dr. Wayne Leahy MD Status:ADM I N Certification of patient admission REQUIRED AT TIME OF ADMISSION. I CERTIFY THAT POST-HOSPITAL ECF SERVICES ARE REQUIRED TO BE GIVEN ON AN IN-PATIENT BASIS BECAUSE OF THE ABOVE NAMED PATIENT'S NEED FOR DETENTION CARE ON A CONTINUING BASIS FOR THE [...] Eval Summary: Orientation: 10/30. Not oriented to , , Namin/10 (unable to name phone, computer, and [...] García ; Esteban Waddell ; Mounika Mayes ORDER BUILDER LOADER ; Melody Patrick Discharge Orders/Prescriptions Prescriptions: Continued [...] in before D/C Order can be placed): [facility] 07/19/22 2692 <Electronically signed by Micha Feliciano MD> Cosigner Signature (if applicable): CC: ORDER BUILDER LOADER-Jayshree Mayes; Dr. Michel Lee MD; Dr. Kianna Patrick DO; Dr. Lonny Joseph DO; Dr. Melody Patrick DO; Dr. Darnell García MD; Dr. Wayne Leahy MD; Dr. Esteban Waddell MD ~ [facility] Work Phone: [phone]) 396-654802-27-[address] Lee [facility] July 19, 2022 3:46pm Note Date/Time July 19, 2022 7:48am [facility] Medical Records Department [address] [place] [address] Progress Note - Sleep Technician 07/19/22 0744 MR#: [id number] Acct: [id number] Name: NICOLE SALVADOR John Rep #:[id number] : 1935 87 From: Michel Lee MD [...] as indicated. This note was generated with Results Scorecard dictation software. It may contain incorrectwords, spelling, [...] (Auto) 46.5 L, Lymph % (Auto) 37.4, [place] % (Auto) 10.2 H, Eos % (Auto) [...] flat affect Charges/Coding Visit Charges Inpatient E&M: 34586 Subs Hosp L2 07/19/22 1546 <Electronically signed by Michel Lee MD> Cosigner Signature (if applicable): CC: ~ Signed [facility] Work Phone: [phone]) 777-891902-27-[address] Patrick [facility] July 19, 2022 7:25am Note Date/Time July 19, 2022 7:26am [facility] Medical Records Department [address] [place] [address] Telemedicine Confirmation Receipt 07/19/22 MR#: [id number] Acct: [id number] Name: NICOLE SALVADOR Rep #:[id number] : 1935 87 From: Melody Patrick DO PCP: Dr. Wayne Leahy MD Status:ADM I N [facility] Telemed has confirmed receipt of a request for visit. This document confirms receipt of the order initiating the consult. To find the results of the consultation, please view the patient's reports for the scanned Telemed Consult. [facility] Work Phone: 1([phone]) 744-809202-26-[address] Patrick [facility] July 18, 2022 2:28pm Note Date/Time July 18, 2022 2:28pm [facility] Medical Records Department [address] [place] [address] Telemedicine Confirmation Receipt 07/18/22 MR#: [id number] Acct: [id number] Name: LUCASNICOLE L Rep #:[id number] : 1935 87 From: Melody Patrick DO PCP: Dr. Wayne Leahy MD Status:ADM I N [facility] Telemed has confirmed receipt of a request for visit. This document confirms receipt of the order initiating the consult. To find the results of the consultation, please view the patient's reports for the scanned Telemed Consult. [facility] Work Phone: 1(715) 989-290402-26-[address] Patrick [facility] July 18, 2022 11:57am Note Date/Time July 18, 2022 11:57am [facility] Medical Records Department [address] [place] [address] Progress Note - Hospitalist 07/18/22 1148 MR#: [id number] Acct: [id number] Name: NICOLE SALVADOR Rep #:[id number] : 1935 87 From: Melody Patrick DO [...] Neut % (Auto) 48.0, Lymph % (Auto) 37.5,[place] % (Auto) 9.5, Eos % (Auto) 3.3, [...] distress and well nourished Constitutional Narrative: Elderly -[place] female, sitting up in bed watching television, [...] with family Charges/Coding Visit Charges Inpatient E&M: 89331 Subs Hosp L2 07/18/22 1157 <Electronically signed by Melody Patrick DO> Cosigner Signature (if applicable): CC: ~ Signed [facility] Work Phone: [phone]) 424-846402-26-[address] Joseph [facility] July 18, 2022 6:25am Note Date/Time July 18, 2022 5:42am [facility] Medical Records Department [address] [place] [address] Consultation - Sleep Technician 07/18/22 0538 MR#: [id number] Acct: [id number] Name: NICOLE SALVADOR Rep #:[id number] : 1935 87 From: Lonny Joseph DO [...] medicationsas indicated. This note was generated with Results Scorecard dictation software. It may contain incorrectwords, spelling, [...] admitted to the medical intensive care unit. [facility] Medical History Acute respiratory failure with [...] % (Auto) 56.0, Lymph % (Auto) 29.9, [place] % (Auto) 9.1, Eos % (Auto) 3.1, [...] Neut % (Auto) 48.0, Lymph % (Auto) 37.5,[place] % (Auto) 9.5, Eos % (Auto) 3.3, [...] above Results were Read Back by Paddy Carslon MD to Dr. Emmanuel MD, and understanding [...] EST , Charges/Coding Visit Charges Inpatient E&M: 50722 Init Hosp L3 07/18/22 0625 <Electronically signed by Lonny Joseph DO> Cosigner Signature (if applicable): CC: TOM Mayes; Dr. Michel Lee MD; Dr. Kianna Patrick DO; Dr. Lonny Joseph DO; Dr. Darnell García MD; Dr. Wayne Leahy MD; Dr. Esteban Waddell MD~ Signed [facility] Work Phone: [phone] History and physical note Author Dr. Patrick [facility] July 17, 2022 1:26pm Note Date/Time July 17, 2022 12:46pm [facility] Medical Records Department [address] [place] [address] H&P Exam - Hospitalist 07/17/22 1243 MR#: [id number] Acct: [id number] Name: NICOLE SALVADOR Rep #:[id number] : 1935 87 From: Melody Patrick DO PCP: Dr. Wayne Leahy MD Status:ADM I N Location: ICU ICU01-1 HPI - General General Date of Admission: 07/17/22 Date of Service: 07/17/22 Chief Complaint: Dysarthria/aphasia/left facial droop/left-sided weakness HPI Narrative NICOLE SALVADOR, is a 87 F who presented to the emergency department at [facility] on 07/17 2022 from her dialysis center [...] intermittently following commands. [facility] Dr. Kianna [...] fistula until 24 hours after tPA dosing. [facility] Medical History Acute respiratory failure with [...] Physical Exam Const alert Constitutional Narrative: Elderly, -[place] female, lying in bed, daughter at bedside, [...] % (Auto) 56.0, Lymph % (Auto) 29.9, [place] % (Auto) 9.1, Eos % (Auto) 3.1, [...] with family Charges/Coding Visit Charges Inpatient E&M: 36211 Init Hosp L3 07/17/22 1326 <Electronically signed by Melody Patrick DO> Cosigner Signature (if applicable): CC: Dr. Melody Patrick DO; Dr. Wayne Leahy MD~ Signed [facility] Work Phone: [phone]) 486-517702-25-[address] Benitez [facility] July 17, 2022 12:35pm Note Date/Time July 17, 2022 11:36am [facility] Medical Records Department [address] [place] [address] Emergency Department Summary 07/17/22 MR#: [id number] Acct: [id number] Name: NICOLE SALVADOR Rep #:[id number] : 1935 87 From: Jey Benitez MD [...] appears more confused, notfollowing commands as well. 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, and she would like [...] % (Auto) 56.0 Lymph % (Auto) 29.9 [place] % (Auto) 9.1 Eos % (Auto) 3.1 [...] Signed: Jey Rollins MD at 12:23 EST Reading Location ID and State: [facility] / [place] , Service support , Critical Care Time Critical Care Time: Yes Critical care time (excluding procedures): 30-74 minutes (31), Including time spent:, Discussing w/Patient &/or Family/Squad Boss, Discussing w/Consultants, Arranging Admission or Transfer and Performing Direct Patient Care at Bedside Discharge Plan Dx/Rx/DC Orders Clinical Impression: Essential hypertension, End-stage renal disease (ESRD), Stroke, Received intravenous tissue plasminogen activator (tPA) in emergency department Disposition Disposition: Acute Care Hospital [facility] What to do if you have Problems For any increased pain, shortness of breath, bleeding, nausea or vomiting, chestpain, or any unexpected problems, contact your Primary Care Provider. Call [facility] ([phone]) or report to the closest Emergency Room. Call 911 if necessary. 07/17/22 1234 <Electronically signed by Jey Benitez MD> Cosigner Signature (if applicable): CC: Dr. Wayne Leahy MD ~ Signed [facility] Work Phone: [phone] Evaluation note* Diagnosis Onset Date Resolution Status [...] Essential hypertension chron ic Hyperlipidemia chronic Hypertension [facility] Work Phone: [phone]) 279-742302-28-2020 Evaluation note* Diagnosis Onset Date Resolution Status Chronic diastolic (congestive) heart failure chronic End-stage renal disease (ESRD) chronic Essential hypertension chron ic History of loop recorder July 20, 2019 chronic Hyperlipidemia chronic Confusion acute Slurred speech acute TIA (transient ischemic attack) acute Dementia chronic End-stage renal disease (ESRD) [facility] Work Phone: 1(900) 326-547002-28-2020 Evaluation note* Diagnosis Onset Date Resolution Status [...] History of CVA (cerebrovascular accident) December 14 chronic Hypertension chronic [facility] Work Phone: Discharge summary Author Melody Patrick [facility] December 06, 2022 4:59pm Note Date/Time December 06, 2022 4:59 pm [facility] Medical Records Department [address] [place] [address] Transfer to [facility] MR#: [id number] Acct: [id number] Name: NICOLE SALVADOR Rep #:[id number] : 1935 87 From: Melody Patrick DO PCP: Dr. Wayne Leahy MD Status:ADM I NO Certification of patient admission REQUIRED AT TIME OF ADMISSION. I CERTIFY THAT POST-HOSPITAL ECF SERVICES ARE REQUIRED TO BE GIVEN ON AN IN-PATIENT BASIS BECAUSE OF THE ABOVE NAMED PATIENT'S NEED FOR DETENTION CARE ON A CONTINUING BASIS FOR THE CONDITION(S) FOR WHICH HE/SHE WAS RECEIVING IN-PATIENT HOSPITAL SERVICES PRIOR TO HIS/HER TRANSFER TO THE ECF. 12/06/22 1658<Electronically signed by Melody Patrick DO> Diet Diet Order/Speech Therapy: 12/05/22 14:41 Diet: Renal - General Food consistency:: [...] MCA Stroke 07/20/2019 received TPA; Transferred to [facility] 12/15/2019 (5) Hypertension: Status: Chronic Code(s): I10 [...] (6) Anemia Qualifiers: Anemia type: iron deficiency 12/06/22 4039 <Electronically signed by Melody Patrick DO> Cosigner Signature (if applicable): CC: Dr. Kianna Patrick DO; Dr. John Lutz MD; Dr. Wayne Leahy MD ~ [facility] Work Phone: Discharge summary Author Melody Patrick [facility] December 06, 2022 5:15pm Note Date/Time December 06, 2022 5:02 pm [facility] Medical Records Department [address] [place] [address] Discharge Summary 12/06/22 1659 MR#: [id number] Acct: [id number] Name: NICOLE SALVADOR Rep #:[id number] : 1935 87 From: Melody Patrick DO PCP: Dr. Wayne Leahy MD Status:ADM I NO Location: [place] [address] Providers Date of Admission: 12/05/22 Date of [...] Hospital Course: Mrs. Salvador is an 87-year-old -[place] female with history of stroke and TIAs who presented to the emergency department at [facility] on 12/05/2022 with slurred speech and difficulty [...] day of this admission she was at yarsanism with her daughter and became unresponsive. There [...] and no significant stenosis. Stroke neurologist from [facility] was contacted and did not recommend tPA [...] habitus and well nourished Constitutional Narrative: Elderly, -[place], female, lying in bed with her eyes [...] 43.5 L, Lymph % (Auto) 41.1 H, [place] % (Auto) 9.3, Eos % (Auto) 4.2, [...] Magnesium 2.5, Triglycerides 81, Cholesterol 97, LDL Htsrcjstvyx86, VLDL Cholesterol 16, HDL Cholesterol 55 Radiography Diagnostic Testing: Radiology Impression Brain MRI 12/06/22 14:03 IMPRESSION: (NOT LISTED IN ORDER OF SIGNIFICANCE) There are no acute intracranial findings. Electronically Signed: Manav Travis MD at 16:51 EDT , D/C Instructions Discharge Diet: Low fat [...] NH/Intermed Care Charges/Coding Visit Charges Inpatient E&M: 10516 SNF Disch 12/06/22 1715 <Electronically signed by Melody Patrick DO> Cosigner Signature (if applicable): CC: Dr. Melody Patrick DO; Dr. Wayne Leahy MD~ Signed [facility] Work Phone: Discharge summary Author Micha Feliciano [facility] March 16, 2023 2:37pm Note Date/Time March 16, 2023 2 :07pm [facility] Medical Records Department [address] [place] [address] Discharge Summary 03/16/23 1403 MR#: [id number] Acct: [id number] Name: NICOLE SALVADOR Rep #:[id number] : 1935 88 From: Micha newton MD PCP: Dr. Wayne Leahy MD Status:ADM I NO Location: [place] [address] Providers Date of Admission: 03/15/23 Primary Care [...] Status: Acute Code(s): R53.1 - Weakness (4) long term resident: Status: Acute Code(s): Z59.3 - Problems [...] release 24 hr 60 mg PO SUMOWEFR HTN06/05/20 nifedipine 60 mg tablet,extended release 60 mg [...] is a 88 F who presents from group home with signs and symptoms consistent with a stroke. She was at dialysis when she developed left- sided weakness and confusion. Does appear that the confusion is resolved as is the left-sided weakness. Stroke alert was called and [facility] neurology recommended inpatient observation with further stroke [...] the risk benefits of going to the group home and would like for her to be [...] Neut % (Auto) 56.7, Lymph % (Auto) 28.6,[place] % (Auto) 9.9, Eos % (Auto) 3.5, [...] in before D/C Order can be placed): [facility] Charges/Coding Visit Charges Inpatient E&M: 91413 Disch Hosp >30min 03/16/23 1437 <Electronically signed by Micha Feliciano MD> Cosigner Signature (if applicable): CC: Dr. Micha Feliciano MD; Dr. Wayne Leahy MD~ Signed [facility] Work Phone: Evaluation note* Diagnosis Onset Date Resolution Status Dementia acute Confusion resolved Slurred speech resolved Confusion acute Dementia acute ESRD on hemodialysis acute Left-sided weakness acute long term resident acute Essential hypertension chron ic [facility] Work Phone: Evaluation note* Diagnosis Onset Date Resolution Status Confusion acute Dementia acute ESRD on hemodialysis acute long term resident acute Essential hypertension chron ic Left-sided weakness resolved Dementia acute Polyneuropathy acute [facility] Work Phone: Evaluation note* Diagnosis Onset Date Resolution Status Dementia acute Polyneuropathy acute ESRD on hemodialysis acute Problem with dialysis access acute [facility] Work Phone: Evaluation noteNo assessment information available [facility] Work Phone: Hospital Discharge instructions Additional Instructions 1. Apply ice to your left arm and foot 6-10 times a day for 20 to 30 minutes per application. 2. You may feel worse over the next 24 to 48 hours. 3. You may hurt for several days up to a week. 4. Take [facility] Work [facility]: Hospital Discharge instructions Additional Instructions Resume previous medications and routines. Tylenol as needed for pain. Weightbearing as tolerated with your walker. You may also use your wheelchair. Follow-up with orthopedics in approximately 1 week. You may require repeat x-rays.[facility] Work Phone: Summary Purpose Family History No Family History Records Found Relationship Condition Age at Onset Recorded Date/T genesis mother Malignant neoplasm of colon Unknown Hypertension Unknown father Hypertension Unknown Advance Directives No Advanced Directives Records Found Advance Directive Response Recorded Date/ Time Name of Medical Power of Repair Clerk [place] Salvador July 17, 2022 1:50pm Advance Directives No April 10:31am Living Will No July 17, 2 023 1:50pm Power of Repair Clerk Yes July 17, 2022 1:50pm Advance Directive Response Recorded Date/ Time Name of Medical Power of Repair Clerk LISA- ARIANE December 05, 2022 12:49pm Advance Directives No April 11:31am Living Will No December 05, 2022 12:49pm Power of Repair Clerk Yes December 05 12:49pm Advance Directive Response Recorded Date/ Time Name of Medical Power of Repair Clerk Mohsen Alcaraz (daughters) December 05, 2022 2:40pm Advance Directives No April 11:31am Living Will No December 05, 2022 2:40pm Power of Repair Clerk Yes December 05 2:40pm Advance Directive Response Recorded Date/ Time Name of Medical Power of Repair Clerk Mohsen Alcaraz (daughters) December 05, 2022 2:40pm Name of Medical Power of Repair Clerk ARPAN MCLEAN CLAY PRICE-ARIANE March 15, 2023 9:57am Advance Directives No April 11:31am Living Will No March 15 1:15pm Power of Repair Clerk No March 15, 2023 1:15pm Advance Directive Response Recorded Date/ Time Name of Medical Power of Repair Clerk LIZZETTE MCLEANJOSÉBOSTONVinhARIANE March 15, 2023 8:57am Advance Directives No April 10:31am Living Will No June 13 3:01pm Power of Repair Clerk No June 13, 2023 3:01pm Advance Directive Response Recorded Date/ Time Advance Directives No April 11:31am Living Will No August 03, 2023 2:24pm Power of Repair Clerk No August 02 2:24pm Advance Directive Response Recorded Date/ Time Name of Medical Power of Repair Clerk LIZZETTE MCLEANJOSÉBOSTONVinhARIANE March 15, 2023 8:57am Advance Directives No April 10:31am Living Will No March 15 12:15pm Power of Repair Clerk No March 15, 2023 12:15pm Advance Directive Response Recorded Date/ Time Do you have a Healthcare Power of Repair Clerk? Yes January 18, 2025 7:33pm Advance Directives No June 27, 2024 8:14am Chief Complaint and Reason for Visit Chief [...] Essential hypertension Hyperlipidemia Hypertension Chief Complaint S/p [facility] TIA Reason for Visit Chronic diastolic (c ongestive) heart failure End-stage renal disease (ESRD) Essential hypertension History of loop recorder Hyperlipidemia Confusion Slurred speech TIA (transient ischemic attack) Dementia End-stage renal disease (ESRD) Chief Complaint S/p [facility] TIA TIA (cardiology) TIA (cardiology) Reason for [...] Confusion Dementia ESRD on hemodialysis Left-sided weakness long term resident Essential hypertension Chief Complaint CVA R/O CVA R/O CVA R/O Pacer Check Remote DEMENTIA EORDER FALL Reason for Visit Confusion Dementia ESRD on hemodialysis long term resident Essential hypertension Left-sided weakness Dementia Polyneuropathy Chief Complaint DEMENTIA EORDER FALL FISTULOGRAM - PROLONGED BLEEDING head injury, fall Reason for Visit Dementia Polyneuropathy ESRD on hemodialysis Problem with dialysis access Chief Complaint CVA R/O CVA R/O CVA R/O DEMENTIA EORDER Reason for Visit Confusion Dementia ESRD on hemodialysis long term resident Essential hypertension Left-sided weakness Dementia Polyneuropathy Chief Complaint Admit Date RED LEFT EYE, COUGHING UP SPUTUM January 18, 2025 6:47pm Additional Source Comments INFORMATION SOURCE (unrecogn ized section and content) DATE CREATED AUTHOR 12/16/2019 [employer] DATE CREATED AUTHOR AUTHOR'S ORGANIZ ATION 2025 [facility] Care Teams (unrecognized sec tion and content) Team Status: Active Member Role Status Dates Dr. Wayne Leahy MD Family Provider Active Dr. Wayne Leahy MD Primary Care Provider Active Team Status: Inactive Member Role Status Dates Dr. Wayne Leahy MD Primary Care Provider, Referring Provider Active Deborah Haider Attending Provider Active Team Status: Inactive Member Role Status Dates Dr. Wyane Leahy MD Primary Care Provider, Referring Provider Active Deborah Haider Active Dr. Chang Chandler MD Attending Provider Active Team Status: Active Member Role Status Dates Dr. Wayne Leahy MD Primary Care Provider Active Jey Benitez MD Emergency Provider Active Dr. Melody Patrick DO Admit Provider, Attending Provide r, Other Provider Active Team Status: Active Member Role Status Dates Dr. Wayne Leahy MD Primary Care Provider Active Jey Benitez MD Emergency Provider Active Dr. Melody Patrick DO Admit Provider, Other Provider Ac tive Dr. Kianna Patrick DO Other Provider Active Dr. Michel Lee MD Other Provider Active Dr. Lonny Joseph , DO Attending Provider, Other Provide r Active Dr. Darnell García MD Other Provider Active Dr. Esteban Waddell MD Other Provider Active Mounika Mayes ORDER BUILDER LOADER, ORDER BUILDER LOADER-C Other Provider Active Team Status: Active Member [...] Waddell MD Other Provider Active Mounika Mayes ORDER BUILDER LOADER, ORDER BUILDER LOADER-C Other Provider Active Team Status: Active Member [...] Waddell MD Other Provider Active Mounika Mayes ORDER BUILDER LOADER, ORDER BUILDER LOADER-C Other Provider Active Dr. Micha Feliciano MD [...] Waddell MD Other Provider Active Mounika Mayes ORDER BUILDER LOADER, ORDER BUILDER LOADER-C Other Provider Active Dr. Micha Feliciano MD [...] Waddell MD Other Provider Active Mounika Mayes ORDER BUILDER LOADER, ORDER BUILDER LOADER-C Other Provider Active Dr. Micha Feliciano MD Attending Provider Active Team Status: Inactive Member Role Status Dates Dr. Wayne Leahy MD Primary Care Provider, Referring Provider Active Dr. Cahng Chandler MD Active Malia Dior PA, PA [...] Benitez MD Emergency Provider Active Dr. Micha Fleiciano MD Admit Provider, Attending Provider Active Dr. [...] Active Jey Benitez MD Emergency Provider Active Team Status: Active Member Role/Relationship Status Dates Dr. Kishan Camejo MD Primary Care Provider Active Team Status: Inactive Member Role/Relationship Status Dates Dr. Kishan Camejo MD Primary Care Provider Active Start: January 18, 2025 End: January 18, 2025 Dr. Deric Maravilla MD Emergency Provider Active S tart: January 18, 2025 End: January 18, 2025 Goals (unrecognized section and content) Goals may be documented in a n alternate sectionGoals may be documented in an alternate sectionGoals may be documented in an [...] BE BASED ON THE PRIMARY CLINICAL RECORDS. [employer] provides no warranty or guarantee of the accuracy or completeness of information in this document.
[2025-04-23 01:50] LABS: Lipase 21 U/L (13-75); Magnesium 2.4 mg/dL (1.5-2.2)
[2025-04-23 02:24] LABS: AST(SGOT) 19 U/L (<=31); Alanine Aminotransfer ALT/SGPT 5 U/L (<=34); Albumin, Serum 3.4 g/dL (3.4-4.8); Alkaline Phosphatase 119 U/L (35-104); Anion Gap 19 (5-15); BUN 44 mg/dL (4-19); BUN/Creat Ratio 4.9 RATIO (10-20); Bilirubin, Direct 0.17 mg/dL (0.00-0.30); Calcium,Total 8.6 mg/dL (7.6-11.0); Carbon Dioxide 24.9 mmol/L (21.0-32.0); Chloride 95 mmol/L (98-108); Estimated Creatinine Clearance 3.51 ml/min (50-250); Globulin 2.9 g/dL (2.2-4.2); Glucose 105 mg/dL (70-99); Potassium 3.6 mmol/L (3.3-5.1)
--- NOTE | 2025-04-23 02:48 | ED.RN ---
ATTEMPTED TO PROVIDE UPDATE ON PATIENT CARE TO AVENUE NURSE AT THIS TIME. RESPONSE, THE NURSE IS UNAVAILABLE AT THIS TIME. PLEASE CALL BACK
--- NOTE | 2025-04-23 02:50 | EX.ED.DYSGE1 ---
HPI History of Present Illness Chief Complaint: Alt LOC Informant: family and SNF Narrative Narrative: Patient is an 89-year-old female from the custodial with history of dementia end-stage renal disease on dialysis which she receives on Tuesday and Tuesday as well as hypertension hyperlipidemia. custodial and family state that she initially was struggling with constipation. Therefore she was given a stool softener which led to watery soft stool. Secondary to this they stopped the medication and she returned to normal bowel movement. However starting Tuesday she began having 3-5 episodes of watery diarrhea per day. They state they began adding Imodium without any symptom. Reportedly this evening the diarrhea then became bloody and secondary to this she was sent to the ER for evaluation. The patient does not offer any further history based on her dementia. [facility] Medical History (Updated 04/23/25 @ 03:[address] Darnell Randolph, DO) End stage renal disease Vascular dementia, unspecified severity, with other behavioral disturbance Dependence on renal dialysis Dysarthria following cerebral infarction Peripheral vascular disease, unspecified Dysarthria and anarthria Neuromuscular dysfunction of bladder, unspecified Hypothyroidism, unspecified Transient cerebral ischemic attack, unspecified Aphasia following cerebral infarction Frontal lobe and executive function deficit following cerebral infarction Chronic obstructive pulmonary disease, unspecified Hypertensive heart and chronic kidney disease without heart failure, with stage 5 chronic kidney disease, or end stage renal disease Hemiplegia, unspecified affecting left nondominant side Memory deficit following cerebral infarction custodial resident AV fistula custodial resident ESRD on hemodialysis TIA (transient ischemic attack) Anemia Hypertension ESRD (end stage renal disease) on dialysis Problem with dialysis access Chronic diastolic (congestive) heart failure End-stage renal disease (ESRD) History of CVA (cerebrovascular accident) (12/15/19) Essential hypertension Problem with dialysis access Respiratory failure with hypoxia Iron deficiency anemia RENAL FAILURE STAGE 6 Chronic renal failure, stage 5 Dementia Elevated troponin I level Metabolic acidosis Acute respiratory failure with hypoxia Anemia Iron deficiency anemia Chronic kidney disease (CKD) stage G5/A1, glomerular filtration rate (GFR) less than or equal to 15 mL/min/1.73 square meter and albuminuria creatinine ratio less than 30 mg/g Cough Shortness of breath Cerebellar infarct Speech apraxia Asthma Glaucoma Obesity (BMI 30.0-34.9) Hyperlipidemia Home Medications ?Medication ?Instructions ?Recorded ?Last Taken ?Type timolol maleate 0.5 % eye drops 1 drp EACH EYE BID GLAUCOMA 11/26/15 03/15/23 History levothyroxine 100 mcg tablet 100 mcg PO DAILY HYPOTHYROIDISM 07/31/19 03/15/23 History isosorbide mononitrate 60 mg 60 mg PO SUMOWEFR HTN 10/26/19 03/14/23 History tablet,extended release 24 hr albuterol sulfate 90 mcg/actuation 2 inh inhalation Q4H PRN Shortness 07/17/22 Unknown History aerosol inhaler Of Breath budesonide-formoterol HFA 160 1 inh inhalation QHS SHORTNESS OF 07/17/22 03/14/23 History mcg-4.5 mcg/actuation aerosol BREATH inhaler dextran 70-hypromellose 0.1 %-0.3 1 drp ophthalmic (eye) QHS eye 07/17/22 03/14/23 History % eye drops health albuterol sulfate 2.5 mg/3 mL 2.5 mg continuous nebulization Q4H 12/05/22 Unknown History (0.083 %) solution for nebulization PRN SOB/Wheezing clopidogrel 75 mg tablet 75 mg PO DAILY anti platelet #30 12/06/22 03/15/23 Rx tabs atorvastatin 20 mg tablet 40 mg (2 x 20 mg) PO DAILY 03/16/23 03/14/23 Rx CHOLESTEROL #1 TAB acetaminophen 500 mg capsule 500 mg PO Q6H PRN fever or pain 08/29/23 Unknown History bisacodyl 10 mg rectal suppository 10 mg CA DAILY PRN constipation 08/29/23 Unknown History donepezil 10 mg tablet 10 mg PO QHS DEMENTIA 08/29/23 Unknown History magnesium hydroxide 400 mg/5 mL 5 ml PO DAILY PRN constipation 08/29/23 Unknown History oral suspension (Milk of Magnesia) mineral oil (Fleet Mineral Oil 118 ml CA DAILY PRN constipation 09/12/23 Unknown History enema) memantine 5 mg tablet 5 mg PO BID DEMENTIA 03/12/24 Unknown History sevelamer carbonate 800 mg tablet 800 mg PO TID kidney disease 07/03/24 Unknown History vitamin B complex-vitamin C-folic 1 tab PO DAILY CKD 07/03/24 Unknown History acid 0.8 mg tablet (Nephro-Jean Paul) food supplemt, lactose-reduced 120 ml PO 4X/DAY #0 mL 07/05/24 Unknown Rx 0.08 gram-1.5 kcal/mL oral liquid (Ensure Plus High Protein) bimatoprost 0.03 % eye drops 1 drp ophthalmic (eye) DAILY 04/23/25 Unknown History brinzolamide 1 %-brimonidine 0.2 % 1 drp LEFT EYE BID EYE PRESSURE 04/23/25 Unknown History eye drops,suspension (Simbrinza) guaifenesin 600 mg tablet, 600 mg PO BID PRN congestion 04/23/25 Unknown History extended release 12 hr (Mucinex) loperamide 2 mg tablet 2 mg PO Q8H PRN loose stool 04/23/25 Unknown History (Anti-Diarrheal (loperamide)) nifedipine 30 mg tablet,extended 30 mg PO QHS CKD AND HYPERTENSIVE 04/23/25 Unknown History release 24 hr HEART DISEASE prednisolone acetate 1 % eye 1 drp ophthalmic (eye) Q12H HERPES 04/23/25 Unknown History drops,suspension ZOSTER sennosides 8.6 mg tablet 8.6 mg PO DAILY 04/23/25 Unknown History (Black-Draught Lax-Senna) Allergy/AdvReac Type Severity Reaction Status Date / Time erythromycin base Allergy Rash Verified 04/23/25 00:11 lisinopril Allergy Unknown Verified 04/23/25 00:11 NSAIDS (Non-Steroidal Allergy Other Verified 04/23/25 00:11 Anti-Inflamma Salicylates Allergy Other Verified 04/23/25 00:11 Family History Mother Colon cancer Hypertension Father Hypertension Surgical History History of loop recorder (07/20/19) s/p left AV fistula creation (02/19/19) Hx of foot surgery Hx of thyroidectomy Hx of cataract extraction Hx of hysterectomy Social History Smoking Status: Never smoker alcohol intake: never substance use type: does not use caffeine: Yes what type of physical activity do you participate in: none frequency: does not exercise ROS ROS ED ROS Narrative Please note review of systems was obtained from family member Constitutional Constitutional ED: Denies fever(s) Respiratory/Chest Respiratory/Chest: Denies cough Gastrointestinal Gastrointestinal: Reports abdominal pain and diarrhea; Denies vomiting Integumentary Denies rash Hematologic/Lymphatic Hematologic/Lymphatic: Denies easy bleeding or easy bruising EXAM Physical Exam Const Vital Signs: 04/23/25 00:09 04/23/25 00:14 04/23/25 01:14 Temperature 98.6 F 98.6 F 98.4 F Temperature Source Oral Oral Oral Pulse Rate 94 94 93 Respiratory Rate 23 H 18 18 Blood Pressure 141/61 H 141/66 H 138/61 H Blood Pressure Mean 87 91 86 Pulse Ox 97 97 97 Oxygen Delivery Method Room Air Room Air Room Air 04/23/25 02:09 04/23/25 02:49 Temperature 98.4 F Temperature Source Pulse Rate 91 92 Respiratory Rate 18 19 H Blood Pressure 139/58 H 132/64 H Blood Pressure Mean 85 86 Pulse Ox 96 95 Oxygen Delivery Method Room Air Positive well nourished and well developed General Appearance ED: well developed HEENT Reports dry mucous membranes HEENT Narrative: Normocephalic atraumatic No tongue or lip swelling no oral lesions no airway edema or compromise No secondary findings in the posterior pharynx to suggest infection Mouth ED: Yes dry mucous membranes Mouth: dry mucous membranes Eyes PERRL and EOMs intact bilaterally General Eye ED: Negative for scleral icterus Neck supple Resp normal respiratory effort and clear to auscultation bilaterally Resp Narrative: Breath sounds are diminished throughout but overall clear to auscultation without signs of respiratory distress Cardio regular rate and regular rhythm GI GI Narrative: The abdomen is slightly distended with hypoactive bowel sounds. There is pain with palpation across the upper abdomen diffusely and increased tympany at this site. No pulsatile mass. No fluid wave. No peritoneal signs Auscultation: hypoactive bowel sounds Extremity Extremity Narrative: Fistula in place in the left upper arm with palpable thrill and good bruit Neuro CN's II-XII intact bilaterally Neuro Narrative: Patient appears slightly obtunded/lethargic. She is resting with her eyes closed but will awake to voice and follow commands. This is baseline mental status according to family. No focal neurologic deficit noted. Sensorium / Orientation: orientation impaired Psych Psych Narrative: Patient is at baseline mental status Skin no rashes or lesions noted and No skin turgor normal Skin Narrative: Skin turgor is increased General Skin Exam: Negative for jaundice MDM MDM MDM Narrative Medical decision making narrative: Patient arrived to the ER slightly hypertensive but at baseline mental status according to family. Family reports the main reason for being sent in from the custodial was secondary to the persistent diarrhea since Tuesday without response to Imodium and the fact it turned bloody this evening. In order to assess for infectious diarrhea such as Salmonella E. coli Shigella or C. difficile a stool sample was ordered. As she is scheduled to have dialysis today basic blood work was obtained to assess for electrolyte abnormalities such as hyperkalemia or hypophosphatemia. I did elect to perform a CT scan with IV contrast as the patient will require dialysis from the contrast and should also have the day based on her normal dialysis pattern. The CT scan revealed an ileocolonic intussusception and findings consistent with high-grade small bowel obstruction. These findings would correlate with her abdominal distention and hypoactive bowel sound but do not correlate with the reported diarrhea per family and custodial. The case was discussed with general surgeon on-call Dr. Way. He states that because the CT scan is showing these findings which does seem to correlate with her exam the safest option is to admit the patient to the hospitalist where she can be evaluated and continued to be watched. He states that as she is not requiring pain medication and is not having bouts of vomiting there is no need for an emergent NG tube. The case was then discussed with the hospitalist Dr. Camejo. He agrees to admit the patient to the hospital for continued evaluation and treatment of her CT scan report of small bowel obstruction and potential infectious diarrhea process according to custodial. History & Record Review Discussion w/independent historian: Family Lab Data Attestation: I reviewed the patient's lab results. Labs: Laboratory Results - last 24 hr 04/23/25 00:32 WBC 10.6 RBC 4.10 L Hgb 11.0 L Hct 35.3 L MCV 86.1 MCH 26.8 L MCHC 31.2 L RDW Std Deviation 51.4 H RDW Coeff of Lizett 16.7 H Plt Count 169 MPV 12.8 H Immature Gran % (Auto) 0.500 Neut % (Auto) 73.1 H Lymph % (Auto) 16.9 L [place] % (Auto) 8.8 Eos % (Auto) 0.1 Baso % (Auto) 0.6 Absolute Neuts (auto) 7.8 H Absolute Lymphs (auto) 1.80 Nucleated RBC % 0.2 Sodium 139 Potassium 3.6 Chloride 95 L Carbon Dioxide 24.9 Anion Gap 19 H BUN 44 H Creatinine 8.99 H* Estim Creat Clear Calc 3.51 L* Est GFR (MDRD) Non-Af 4 L BUN/Creatinine Ratio 4.9 L Glucose 105 H Calcium 8.6 Phosphorus 4.7 H Magnesium 2.4 H Total Bilirubin 0.38 Direct Bilirubin 0.17 AST 19 ALT 5 Alkaline Phosphatase 119 H Total Protein 6.3 Albumin 3.4 Globulin 2.9 Lipase 21 Radiography Diagnostic Testing: Clinical Impression(s) from Imaging Studies Abdomen/Pelvis CT 04/23/25 00:53 IMPRESSION: Ileocolonic intussusception is noted. Secondary high-grade mechanical small-bowel obstruction. Further evaluation is suggested to exclude underlying neoplastic pathology. No evidence of perforation or pneumatosis intestinalis. Prior hysterectomy. Bilateral basilar atelectatic pulmonary changes. Unchanged 2.6 cm nodule in the right lower lobe. Mild cardiomegaly, unchanged. Mild central pulmonary venous congestion. Scattered simple hepatic cysts are noted with the largest measuring 1.2 cm. Diffuse colonic diverticulosis. Unchanged chronic renal atrophy. Unchanged bilateral complex renal solid/cystic lesions, many of them contain calcifications with the largest on the right measuring 4.4 cm. Mild ascites is noted. Mild osteopenia. Moderate diffuse spondylosis. Grade 1 anterolisthesis of L4 on L5. Secondary moderate chronic concentric spinal canal stenosis. [facility] Management Discussion w/another healthcare provider: Hospitalist and General Manager Discharge Plan Dx/Rx/DC Orders Clinical Impression: Small bowel obstruction, Intussusception, End stage renal disease on dialysis, Dementia, Hyperlipidemia, Hypertension Disposition Disposition: Acute Care [facility] Discharge Date/Time: 04/23/25 03:28
--- NOTE | 2025-04-23 02:51 | PCM.HP.STD ---
HPI - General General Date of Admission: 04/23/25 Date of Service: 04/23/25 Chief Complaint: Diarrhea, abdominal pain HPI Narrative LOUISE ZAVALA, is a 89 F who presents to the emergency room with chief complaint of change in level of alertness at the [facility]. Patient has onset of diarrhea symptoms beginning this past Tuesday and has had decreased oral intake beginning this weekend progressing through today. Patient has significant past medical history of end-stage renal disease for which she is on dialysis and due to have dialysis today, as well as history of stroke with aphasia.. Patient is not normally verbal at her baseline but is able to make hand gestures and acknowledge others by her actions. Currently she is resting in no acute distress and opens her eyes when spoken to. Patient was seen with her daughter in the room who confirms patient's wishes are to be full code at this time. Laboratory reveal white blood cell count of 10.6, hemoglobin 11, hematocrit 35.3, platelets 169, sodium 139, potassium 3.6, chloride 95, bicarb 24.9, BUN 44, creatinine 8.99, glucose 105, CT scan abdomen shows ileocolonic intussusception and high-grade mechanical small bowel obstruction. ER physician Dr. Randolph spoke with Dr. Naqvi surgeon who recommended watchful waiting and he will see in consultation on the floor and the NG tube was not needed at this time. Patient will be also consulted to Dr. Patrick for dialysis. REPLACED BY [facility] Medical History (Updated 04/23/25 @ 03:[address] Kishan Camejo MD) End stage renal disease Vascular dementia, unspecified severity, with other behavioral disturbance Dependence on renal dialysis Dysarthria following cerebral infarction Peripheral vascular disease, unspecified Dysarthria and anarthria Neuromuscular dysfunction of bladder, unspecified Hypothyroidism, unspecified Transient cerebral ischemic attack, unspecified Aphasia following cerebral infarction Frontal lobe and executive function deficit following cerebral infarction Chronic obstructive pulmonary disease, unspecified Hypertensive heart and chronic kidney disease without heart failure, with stage 5 chronic kidney disease, or end stage renal disease Hemiplegia, unspecified affecting left nondominant side Memory deficit following cerebral infarction senior living resident AV fistula senior living resident ESRD on hemodialysis TIA (transient ischemic attack) Anemia Hypertension ESRD (end stage renal disease) on dialysis Problem with dialysis access Chronic diastolic (congestive) heart failure End-stage renal disease (ESRD) History of CVA (cerebrovascular accident) (12/15/19) Essential hypertension Problem with dialysis access Respiratory failure with hypoxia Iron deficiency anemia RENAL FAILURE STAGE 6 Chronic renal failure, stage 5 Dementia Elevated troponin I level Metabolic acidosis Acute respiratory failure with hypoxia Anemia Iron deficiency anemia Chronic kidney disease (CKD) stage G5/A1, glomerular filtration rate (GFR) less than or equal to 15 mL/min/1.73 square meter and albuminuria creatinine ratio less than 30 mg/g Cough Shortness of breath Cerebellar infarct Speech apraxia Asthma Glaucoma Obesity (BMI 30.0-34.9) Hyperlipidemia Home Medications ?Medication ?Instructions ?Recorded ?Last Taken ?Type timolol maleate 0.5 % eye drops 1 drp EACH EYE BID GLAUCOMA 11/26/15 03/15/23 History levothyroxine 100 mcg tablet 100 mcg PO DAILY HYPOTHYROIDISM 07/31/19 03/15/23 History isosorbide mononitrate 60 mg 60 mg PO SUMOWEFR HTN 10/26/19 03/14/23 History tablet,extended release 24 hr albuterol sulfate 90 mcg/actuation 2 inh inhalation Q4H PRN Shortness 07/17/22 Unknown History aerosol inhaler Of Breath budesonide-formoterol HFA 160 1 inh inhalation QHS SHORTNESS OF 07/17/22 03/14/23 History mcg-4.5 mcg/actuation aerosol BREATH inhaler dextran 70-hypromellose 0.1 %-0.3 1 drp ophthalmic (eye) QHS eye 07/17/22 03/14/23 History % eye drops health albuterol sulfate 2.5 mg/3 mL 2.5 mg continuous nebulization Q4H 12/05/22 Unknown History (0.083 %) solution for nebulization PRN SOB/Wheezing clopidogrel 75 mg tablet 75 mg PO DAILY anti platelet #30 12/06/22 03/15/23 Rx tabs atorvastatin 20 mg tablet 40 mg (2 x 20 mg) PO DAILY 03/16/23 03/14/23 Rx CHOLESTEROL #1 TAB acetaminophen 500 mg capsule 500 mg PO Q6H PRN fever or pain 08/29/23 Unknown History bisacodyl 10 mg rectal suppository 10 mg UT DAILY PRN constipation 08/29/23 Unknown History donepezil 10 mg tablet 10 mg PO QHS DEMENTIA 08/29/23 Unknown History magnesium hydroxide 400 mg/5 mL 5 ml PO DAILY PRN constipation 08/29/23 Unknown History oral suspension (Milk of Magnesia) mineral oil (Fleet Mineral Oil 118 ml UT DAILY PRN constipation 09/12/23 Unknown History enema) memantine 5 mg tablet 5 mg PO BID DEMENTIA 03/12/24 Unknown History sevelamer carbonate 800 mg tablet 800 mg PO TID kidney disease 07/03/24 Unknown History vitamin B complex-vitamin C-folic 1 tab PO DAILY CKD 07/03/24 Unknown History acid 0.8 mg tablet (Nephro-Jean Paul) food supplemt, lactose-reduced 120 ml PO 4X/DAY #0 mL 07/05/24 Unknown Rx 0.08 gram-1.5 kcal/mL oral liquid (Ensure Plus High Protein) bimatoprost 0.03 % eye drops 1 drp ophthalmic (eye) DAILY 04/23/25 Unknown History brinzolamide 1 %-brimonidine 0.2 % 1 drp LEFT EYE BID EYE PRESSURE 04/23/25 Unknown History eye drops,suspension (Simbrinza) guaifenesin 600 mg tablet, 600 mg PO BID PRN congestion 04/23/25 Unknown History extended release 12 hr (Mucinex) loperamide 2 mg tablet 2 mg PO Q8H PRN loose stool 04/23/25 Unknown History (Anti-Diarrheal (loperamide)) nifedipine 30 mg tablet,extended 30 mg PO QHS CKD AND HYPERTENSIVE 04/23/25 Unknown History release 24 hr HEART DISEASE prednisolone acetate 1 % eye 1 drp ophthalmic (eye) Q12H HERPES 04/23/25 Unknown History drops,suspension ZOSTER sennosides 8.6 mg tablet 8.6 mg PO DAILY 04/23/25 Unknown History (Black-Draught Lax-Senna) Allergy/AdvReac Type Severity Reaction Status Date / Time erythromycin base Allergy Rash Verified 04/23/25 00:11 lisinopril Allergy Unknown Verified 04/23/25 00:11 NSAIDS (Non-Steroidal Allergy Other Verified 04/23/25 00:11 Anti-Inflamma Salicylates Allergy Other Verified 04/23/25 00:11 Family History Mother Colon cancer Hypertension Father Hypertension Surgical History History of loop recorder (07/20/19) s/p left AV fistula creation (02/19/19) Hx of foot surgery Hx of thyroidectomy Hx of cataract extraction Hx of hysterectomy Social History Smoking Status: Never smoker alcohol intake: never substance use type: does not use caffeine: Yes what type of physical activity do you participate in: none frequency: does not exercise ROS Review of Systems ROS Unobtainable: due to mental condition Vital Signs Vital Signs Vital Signs: 04/23/25 00:09 04/23/25 00:14 04/23/25 01:14 Temperature 98.6 F 98.6 F 98.4 F Temperature Source Oral Oral Oral Pulse Rate 94 94 93 Respiratory Rate 23 H 18 18 Blood Pressure 141/61 H 141/66 H 138/61 H Blood Pressure Mean 87 91 86 Pulse Ox 97 97 97 Oxygen Delivery Method Room Air Room Air Room Air 04/23/25 02:09 04/23/25 02:49 Temperature 98.4 F Temperature Source Pulse Rate 91 92 Respiratory Rate 18 19 H Blood Pressure 139/58 H 132/64 H Blood Pressure Mean 85 86 Pulse Ox 96 95 Oxygen Delivery Method Room Air Weight Weight: 119 lb 14.903 oz Body Mass Index (BMI) 21.2 Physical Exam Const Orientation / Consciousness: lethargic HEENT normocephalic and head/scalp atraumatic Eyes PERRL Neck no lymphadenopathy Lymph Lymphatic: no lymphadenopathy noted Resp normal respiratory effort, normal air movement and clear to auscultation bilaterally Cardio regular rate, regular rhythm, S1 normal heart sound and S2 normal heart sound GI soft to palpation Auscultation: hypoactive bowel sounds Palpation: tender Positive for periumbilical; Negative for guarding or rigid Extremity normal capillary refill Skin General Skin Exam: no breakdown Neuro Speech: speech abnormal Details: Positive for other (Aphasic) Psych Appearance: appropriate Results Lab / Micro Data 04/23/25 00:32 04/23/25 00:32 Labs: Laboratory Results - last 24 hr 04/23/25 00:32: WBC 10.6, RBC 4.10 L, Hgb 11.0 L, Hct 35.3 L, MCV 86.1, MCH 26.8 L, MCHC 31.2 L, RDW Std Deviation 51.4 H, RDW Coeff of [place] 16.7 H, Plt Count 169, MPV 12.8 H, Immature Gran % (Auto) 0.500, Neut % (Auto) 73.1 H, Lymph % (Auto) 16.9 L, [place] % (Auto) 8.8, Eos % (Auto) 0.1, Baso % (Auto) 0.6, Absolute Neuts (auto) 7.8 H, Absolute Lymphs (auto) 1.80, Nucleated RBC % 0.2, Sodium 139, Potassium 3.6, Chloride 95 L, Carbon Dioxide 24.9, Anion Gap 19 H, BUN 44 H, Creatinine 8.99 H*, Estim Creat Clear Calc 3.51 L*, Est GFR (MDRD) Non-Af 4 L, BUN/Creatinine Ratio 4.9 L, Glucose 105 H, Calcium 8.6, Phosphorus 4.7 H, Magnesium 2.4 H, Total Bilirubin 0.38, Direct Bilirubin 0.17, AST 19, ALT 5, Alkaline Phosphatase 119 H, Total Protein 6.3, Albumin 3.4, Globulin 2.9, Lipase 21 Micro: Microbiology 04/23/25 01:02 Mucosa - Nose SARS-CoV-2, Influenza & RSV (PCR) - Final Imaging Radiology Impression Abdomen/Pelvis CT 04/23/25 00:53 IMPRESSION: Ileocolonic intussusception is noted. Secondary high-grade mechanical small-bowel obstruction. Further evaluation is suggested to exclude underlying neoplastic pathology. No evidence of perforation or pneumatosis intestinalis. Prior hysterectomy. Bilateral basilar atelectatic pulmonary changes. Unchanged 2.6 cm nodule in the right lower lobe. Mild cardiomegaly, unchanged. Mild central pulmonary venous congestion. Scattered simple hepatic cysts are noted with the largest measuring 1.2 cm. Diffuse colonic diverticulosis. Unchanged chronic renal atrophy. Unchanged bilateral complex renal solid/cystic lesions, many of them contain calcifications with the largest on the right measuring 4.4 cm. Mild ascites is noted. Mild osteopenia. Moderate diffuse spondylosis. Grade 1 anterolisthesis of L4 on L5. Secondary moderate chronic concentric spinal canal stenosis. [id number] Assessment & Plan Assessment/Plan (1) Aphasia: (2) End stage renal disease: (3) Intussusception: (4) Small bowel obstruction: PLAN: Plan 1 small bowel obstruction and intussusception?admit patient to general medical floor, consult general surgery Dr. Naqvi. Maintain patient n.p.o. obtain KUB in the a.m. at this time was agreed we will hold off on morphine as she does not seem to be in too much pain and we can adjust that accordingly. Will add gentle IV hydration and repeat CBC BMP. If bowel obstruction/intussusception resolves can start liquid diet and advance as tolerated. 2. End-stage renal disease, consult Dr. Patrick for kidney dialysis 3. DVT prophylaxis?SCDs 4. CODE STATUS full verified Charges/Coding Visit Charges Inpatient E&M: 47531 Init Hosp L2
--- NOTE | 2025-04-23 03:02 | ED.RN ---
REPORT CALLED TO NOAH NURSE, GUY, AT THIS TIME.
--- OUTSIDE RECORDS SUMMARY | 2025-04-23 03:44 | XMS RPT_ITS | CCD ---
Author Organization [facility] Care Team Providers Care Website Project Manager Name Role Phone PROVIDER, UNKNOWN Admitting Unavailable PROVIDER, UNKNOWN Attending Unavailable Dr. Wayne Leahy Chi Primary Care Provider [phone] Dr. Wayne Leahy Chi Referring Provider Deborah Haider Attending Provider Unavailable Dr. Chang Chandler Attending Provider MD Jey Benitez Emergency Provider Dr. Melody Patrick Admit Provider Dr. Melody Patrick Attending Provider Dr. Melody Patrick Other Provider Dr. Kianna Patrick Other Provider Dr. Michel Lee Other Provider Dr. Lonny Joseph Attending Provider Dr. Lonny Joseph Other Provider Dr. Darnell García Other Provider [phone] Dr. Esteban Waddell Other Provider Unavailab jose Mayes CHAIR PAD MAKER, CHAIR PAD MAKER-C Mounika Other Provider Dr. Michel Lee Attending [...] Dr. Kishan Camejo MD Primary Care Provider Dr. Deric Maravilla MD Emergency Provider [phone] Camejo, Kishan Primary Care Unavailable Giuseppe, Lia [...] Liliana Referring Unavailable Joao, Jim Referring Unavailable Surprise, Jim Attending Unavailable Joao, Jim Consulting Unavailable Camejo, Kishan Primary Care Unavailable Joao, Jim Consulting Unavailable Camejo, Kishan Primary Care Unavailable Darnell, Melody Admitting Unavailable Melody Patrick Attending Unavailable Darnell, Melody Consulting Unavailable Jopperi, Jim Referring Unavailable Denise, Liliana Attending Unavailable Darnell, Kianna Consulting Unavailable Jopperi, Jim Consulting Unavailable Jopperi, Jim Attending Unavailable Camejo, Kishan Primary Care Unavailable Ewa Pittman Attending Unavailabl e Surprise, Jim Referring Unavailable Ojao, Jim Attending Unavailable Camejo, Kishan Primary Care Unavailable Camejo, Kishan Primary Care Unavailable Denise, Liliana Referring Unavailable Denise, Liliana Attending Unavailable Camejo, Kishan Primary Care Unavailable Deric Maravilla Attending Unavailable Surprise, Jim Attending Unavailable Camejo, Kishan Primary Care Unavailable Joao, Jim Consulting Unavailable Camejo, Kishan Primary Care Unavailable Jopperi, Jim Attending Unavailable Darnell, Melody Admitting Unavailable Darnell, Kianna Consulting Unavailable Darnell, Meoldy Consulting Unavailable Jolie Mosqueda Attending Unavailable Camejo, Kishan Primary Care Unavailable Camejo, Kishan Primary Care Unavailable Elkin Presley Referring Unavailable Elkin Presley Attending Unavailable Allergies Allergy Classification Reported Allergen(s) Allergy Type Date of Onset Reaction(s) Facility (8 sources) Erythromycin Drug Allergy 1 Rash [facility] (8 sources) Lisinopril Drug Allergy 1 Unknown [facility] (8 sources) Nonsteroidal Anti-inflammatory Compounds Allergy to substance 1 Other [facility] (9 sources) Salicylic Acid; Translations: [Salicylates] Drug Allergy 1 Other [facility] (1 source) PROTEIN IN URINE DRUG Allergy to substance 1 Other [facility] (1 source) Erythromycin Drug Allergy 5 [facility] (1 source) Lisinopril Drug Allergy 5 [facility] (1 source) NSAIDs Drug allergy (disorder) 5 [facility] Medications Current Medications Medication Drug [...] Start: 07-17-2022 take 1 capsule by mo [facility] once daily B Complex With C [...] hydrochloride 5 mg oral tablet (3 sources) Z-irvbac-J-aspartate 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 Antagonist Start: 03-12-2024 take 1 tablet [...] eye(s) every two hours as needed Peg 317-Axaaqirfdtph-Dlxu charisma 15 ML drops Discontinued 1 NMA [...] Administrative/social admission (9 sources) Lives in a fci; Translations: [Problems related to living in residential [...] Auto (Unsp spec) [#/Vol] 2.02 10*3/uL 0.83-4.51 [facility] Absolute neutrophil countOrd ered By: Deric Maravilla on 01-18-2025 Neutrophils (Bld) [#/Vol] 5.4 10*3/uL 2.0-7.7 [facility] Anion gap in Serum or Plasma Ordered By: Deric Maravilla on 01-18-2025 Anion gap [Moles/Vol] 14 mmol/L 5- [facility] Automated lymphocyte count a s percentage of total leukocytesOrdered By: Deric Maravilla on 01-18-2025 Lymphocytes/100 WBC Auto (Unsp spec) 24.6 % [facility] BUN/creatinine ratioOrdered By: Deric Maravilla on 01-18-2025 Urea nitrogen/Creatinine [Mass ratio] 10.4 mg/mg - [facility] Basic Metabolic Profile (BMP )on 01-18-2025 BUN/CRE 10.4 RATIO Normal - [facility] Comment on above: Performed By: #### L 500.2500, L100.0100 ####[facility] [address] [place], [address] Calcium [Mass/Vol] 9.2 mg/dL Normal 7.6-11.0 [facility] Comment on above: Performed By: #### L 500.2500, L100.0100 ####[facility] [address] [place], [address] Chloride [Moles/Vol] 93 mmol/L Low 98-108 [facility] Comment on above: Performed By: #### L 500.2500, L100.0100 ####[facility] [address] [place], [address] CO2 [Moles/Vol] 26.8 mmol/L Normal 21.0-32.0 [facility] Comment on above: Performed By: #### L 500.2500, L100.0100 ####[facility] [address] [place], [address] Creatinine [Mass/Vol] 6.20 mg/dL High 0.70-1.20 [facility] Comment on above: Performed By: #### L 500.2500, L100.0100 ####[facility] [address] [place], [address] ECRCL 5.19 ml/min Invalid Interpretation Code 50-250 [facility] Comment on above: Performed By: #### L 500.2500, L100.0100 ####[facility] [address] [place], [address] GAP 14 Normal 5-15 [facility] Comment on above: Performed By: #### L 500.2500, L100.0100 ####[facility] [address] [place], [address] GFR/1.73 sq M.predicted among non-blacks MDRD (S/P/Bld) [Vol rate/Area] 6 mL/min/{1.73_m2} Low >60 [facility] Comment on above: Result Comment: mL/m in/1.73m2 CKD-EPI Creatinine Equation (2020) Performed By: #### L 500.2500, L100.0100 ####[facility] [address] [place], [address] Glucose [Mass/Vol] 113 mg/dL High 70-99 [facility] Comment on above: Performed By: #### L 500.2500, L100.0100 ####[facility] [address] [place], [address] Potassium [Moles/Vol] 5.2 mmol/L High 3.3-5.1 [facility] Comment on above: Result Comment: Hemo lysis present, Results??could be affected. ?? Performed By: #### L 500.2500, L100.0100 ####[facility] [address] [place], [address] Sodium [Moles/Vol] 134 mmol/L Normal 133-145 [facility] Comment on above: Performed By: #### L 500.2500, L100.0100 ####[facility] [address] [place], [address] Urea nitrogen [Mass/Vol] 64 mg/dL High 4-19 [facility] Comment on above: Performed By: #### L 500.2500, L100.0100 ####[facility] [address] [place], [address] Basophil percentageOrdered B y: Deric Maravilla on 01-18-2025 Basophils/100 WBC (Bld) 0.9 % 0-1 [facility] Blood manual differential co mment interpretation (narrative result)Ordered By: Deric Maravilla on 01-18-2025 Manual differential comment Chava (Bld) [Interp] SCANNED [facility] CBC W/Diff, Automatedon 12-22 PLT EST SLT DEC Normal ADEQ [facility] Comment on above: Performed By: #### L 500.2500, L100.0100 ####[facility] [address] [place], [address] SMEAR COMMENT SCANNED Normal [facility] Comment on above: Performed By: #### L 500.2500, L100.0100 ####[facility] [address] [place], [address] Carbon dioxide, total [Moles /volume] in Central venous bloodOrdered By: Deric Maravilla on 01-18-2025 CO2 [Moles/Vol] 26.8 mmol/L 21.0-32.0 [facility] Chest 1 View (Portable)on Chest 1 View (Portable) [facility] Imaging Services [address] [place] [address] Chest 1 View (Portable) MR#: [id number] Acct: [id number] Name: NICOLE SALVADOR Rep #: [id number] : 1935 F 89 From: Darshan Zafar MD PCP: Dr. Kishan Camejo MD Status: REG ER Study: Chest 1 View (Portable) Date of Exam: 01/18/25 Exam# [id number] Ordering Dr: Deric Maravilla MD PROCEDURE: CHEST [...] Prominent cardiomegaly with vascular congestion. Reading Location: [facility] CC: Dr. Deric Maravilla MD; Dr. 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 Kishan Camejo MD Status:[facility] ER Location: ED HPI History of Present [...] Illness/Hospitaliza tion: No PFSH PFSH Medical History [facility] resident AV fistula [facility] resident ESRD on hemodialysis Anemia TIA (transient [...] bisacodyl 10 mg rectal suppository 10 mg NM DAILY PRN constipation 08/29/23 Unknown History donepezil 10 mg tablet 10 mg PO DAILY mentation 08/29/23 Unknown History magnesium hydroxide 400 mg/5 mL 5 ml PO DAILY PRN constipation 01/13 Unknown History oral suspension (Milk of Magnesia) mineral oil (Fleet Mineral Oil 118 ml NM DAILY PRN constipation 0 09/12/23 Unknown History [...] History History (more content not included)... Normal [facility] Eosinophil percentageOrdered By: Deric Maravilla on 01-18-2025 Eosinophils/100 WBC (Bld) 1.1 % 0-5 [facility] Erythrocyte distribution wid th ratioOrdered By: Deric Maravilla on 01-18-2025 Erythrocyte distribution width (RBC) [Ratio] 16.3 % High 11.6-14.6 [facility] Erythrocyte distribution wid th standard deviationOrdered By: Deric Maravilla on 01-18-2025 Erythrocyte distribution width (RBC) [Ratio] 50.4 fl High 35.1-43.9 [facility] Glomerular filtration rate ( GFR) estimation/1.73 sq m using serum, plasma, or whole bOrdered By: Deric Maravilla on 01-18-2025 GFR/1.73 sq M.predicted among non-blacks MDRD (S/P/Bld) [Vol rate/Area] 6 mL/min/{1.73_m2} Low >60 [facility] Comment on above: mL/min/1.73m2 CKD-EP I Creatinine Equation (2020) Hematocrit Auto (Bld) [Volum e fraction]Ordered By: Deric Maravilla on 01-18-2025 Hematocrit (Bld) [Volume fraction] 33.4 % Low 37-47 [facility] Hemoglobin measurementOrdere d By: Deric Maravilla on 01-18-2025 Hemoglobin (Bld) [Mass/Vol] 10.6 g/dL Low 12.0-15.0 [facility] Immature granulocytes/100 WB C Auto (Bld)Ordered By: Deric Maravilla on 01-18-2025 Immature granulocytes/100 WBC (Bld) 0.400 % 0.0-0.9 [facility] Comment on above: IG% - Immature Granu locytes (promyelocytes, myelocytes and metamyelocytes) > 1% indicates that a LEFT SHIFT is Present. MCV (mean corpuscular volume ) determinationOrdered By: Deric Maravilla on 01-18-2025 MCV (RBC) [Entitic vol] 85.6 fL 81-99 [facility] Mean corpuscular hemoglobin (MCH) determinationOrdered By: Deric Maravilla on 01-18-2025 MCH (RBC) [Entitic mass] 27.2 pg 27.0-32.0 [facility] Mean corpuscular hemoglobin concentration (MCHC) determinationOrdered By: Deric Maravilla on 01-18-2025 MCHC (RBC) [Mass/Vol] 31.7 g/dL Low 32-36 [facility] Mean platelet volume determi nationOrdered By: Deric Maravilla on 01-18-2025 Platelet mean volume (Bld) [Entitic vol] 12.9 fL High 6.2-12.0 [facility] Monocyte percentageOrdered B y: Deric Maravilla on 01-18-2025 Monocytes/100 WBC (Bld) 7.0 % 0-10 [facility] Neutrophil percentageOrdered By: Deric Maravilla on 01-18-2025 Neutrophils/100 WBC (Bld) 66.0 % 47-70 [facility] Nucleated red blood cell per centageOrdered By: Deric Maravilla on 01-18-2025 Nucleated RBC/100 WBC (Bld) [Ratio] 0 % 0-5 [facility] Platelet countOrdered By: Humberto Maravilla on 01-18-2025 Platelets (Bld) [#/Vol] 131 10*3/uL Low 150-450 [facility] Platelet estimateOrdered By: Deric Maravilla on 01-18-2025 Platelets LM Ql (Bld) SLT DEC ADEQ [facility] Potassium measurement (mass/ volume)Ordered By: Deric Maravilla on 01-18-2025 Potassium (Unsp spec) [Mass/Vol] 5.2 mmol/L High 3.3-5.1 [facility] Comment on above: Hemolysis present, R esults could be affected. RBC Auto (Bld) [#/Vol]Ordere d By: Deric Maravilla on 01-18-2025 RBC (Bld) [#/Vol] 3.90 10*6/uL Low 4.2-5.4 [facility] Serum creatinine measurement (mass/volume)Ordered By: Deric Maravilla on 01-18-2025 Creatinine [Mass/Vol] 6.20 mg/dL High 0.70-1.20 [facility] Serum glucose measurement (m ass/volume)Ordered By: Deric Maravilla on 01-18-2025 Glucose [Mass/Vol] 113 mg/dL High 70-99 [facility] Serum or plasma calcium prsoper urement (mass/volume)Ordered By: Deric Maravilla on 01-18-2025 Calcium [Mass/Vol] 9.2 mg/dL 7.6-11.0 [facility] Serum or plasma urea nitroge n measurement (mass/volume)Ordered By: Deric Maravilla on 01-18-2025 Urea nitrogen [Mass/Vol] 64 mg/dL High 4-19 [facility] Sodium levelOrdered By: Deric Maravilla on 01-18-2025 Sodium [Moles/Vol] 134 mmol/L 133-145 [facility] White blood cell (WBC) count Ordered By: Deric Maravilla on 01-18-2025 WBC (Bld) [#/Vol] 8.2 10*3/uL 4.4-11.0 [facility] MR/BMS.BVSon 08-01-2024 MR/BMS.BVS [facility] Vascular Surgery [address] [place] [address] OFFICE VISIT Date of Service: 08/01/24 MR#: [id number] Acct: [id number] Name: NICOLE SALVADOR John Rep #: [id number] : 1935 Provider: OSBALDO Mitchell Age/Sex: 89/F Location: [facility] Status: Signed Intake Vital Signs 04/24/24 13:02 [...] bisacodyl 10 mg rectal suppository 10 mg NM DAILY PRN constipation 08/29/23 08/01/24 History donepezil 10 mg tablet 10 mg PO DAILY mentation 08/29/23 08/01/24 History magnesium hydroxide 400 mg/5 mL 5 ml PO DAILY PRN constipation 01/1308/01/24 History oral suspension (Milk of Magnesia) mineral oil (Fleet Mineral Oil 118 ml NM DAILY PRN constipation 0 09/12/23 08/01/24 History [...] the past year?: No PFSH Medical History [facility] AV fistula [facility] resident ESRD on hemodialysis Anemia TIA (transient [...] never subst (more content not included)... Normal [facility] Hemoglobinon 07-17-2024 Hemoglobin (Bld) [Mass/Vol] 8.4 g/dL Low 12.0-15.0 [facility] Comment on above: Performed By: #### L 100.1300 #### [facility] [address] [place], [address] CBC W/Diff, Automatedon -05 25-2024 Absolute Lymph 1.69 X10 3/uL Normal 0.83-4.51 [facility] Comment on above: Performed By: #### L 100.0100 ####[facility] [address] [place], [address] Absolute Neut 3.7 X10 3/uL Normal 2.0-7.7 [facility] Comment on above: Performed By: #### L 100.0100 ####[facility] [address] [place], [address] Basophils/100 WBC (Bld) 1.0 % Normal 0-1 [facility] Comment on above: Performed By: #### L 100.0100 ####[facility] [address] [place], [address] Eosinophils/100 WBC (Bld) 8.1 % High 0-5 [facility] Comment on above: Performed By: #### L 100.0100 ####[facility] [address] [place], [address] Erythrocyte distribution width (RBC) [Ratio] 17.1 % High 11.6-14.6 [facility] Comment on above: Performed By: #### L 100.0100 ####[facility] [address] [place], [address] Hematocrit (Bld) [Volume fraction] 23.8 % Low 37-47 [facility] Comment on above: Performed By: #### L 100.0100 ####[facility] [address] [place], [address] Hemoglobin (Bld) [Mass/Vol] 7.4 g/dL Low 12.0-15.0 [facility] Comment on above: Performed By: #### L 100.0100 ####[facility] [address] [place], [address] IG% 0.300 Normal 0.0-0.9 [facility] Comment on above: Result Comment: IG% - Immature Granulocytes (promyelocytes, myelocytes and metamyelocytes) > 1% indicates that a LEFT SHIFT is Present. Performed By: #### L 100.0100 ####[facility] [address] [place], [address] Lymphocytes/100 WBC (Bld) 25.3 % Normal 19-41 [facility] Comment on above: Performed By: #### L 100.0100 ####[facility] [address] [place], [address] MCH (RBC) [Entitic mass] 28.4 pg Normal 27.0-32.0 [facility] Comment on above: Performed By: #### L 100.0100 ####[facility] [address] [place], [address] MCHC (RBC) [Mass/Vol] 31.1 g/dL Low 32-36 [facility] Comment on above: Performed By: #### L 100.0100 ####[facility] [address] [place], [address] MCV (RBC) [Entitic vol] 91.2 fL Normal 81-99 [facility] Comment on above: Performed By: #### L 100.0100 ####[facility] [address] [place], [address] Monocytes/100 WBC (Bld) 10.3 % High 0-10 [facility] Comment on above: Performed By: #### L 100.0100 ####[facility] [address] [place], [address] Neutrophils/100 WBC (Bld) 55.0 % Normal 47-70 [facility] Comment on above: Performed By: #### L 100.0100 ####[facility] [address] [place], [address] Nucleated RBC (Bld) [#/Vol] 0 10*3/uL Normal 0-5 [facility] Comment on above: Performed By: #### L 100.0100 ####[facility] [address] [place], [address] Platelet mean volume (Bld) [Entitic vol] 12.1 fL High 6.2-12.0 [facility] Comment on above: Performed By: #### L 100.0100 ####[facility] [address] [place], [address] Platelets (Bld) [#/Vol] 130 10*3/uL Low 150-450 [facility] Comment on above: Performed By: #### L 100.0100 ####[facility] [address] [place], [address] RBC (Bld) [#/Vol] 2.61 10*6/uL Low 4.2-5.4 [facility] Comment on above: Performed By: #### L 100.0100 ####[facility] [address] [place], [address] RDW SD 54.9 fl High 35.1-43.9 [facility] Comment on above: Performed By: #### L 100.0100 ####[facility] [address] [place], [address] WBC (Bld) [#/Vol] 6.7 10*3/uL Normal 4.4-11.0 [facility] Comment on above: Performed By: #### L 100.0100 ####[facility] [address] [place], [address] CBC W/Diff, Automatedon 06-23 Absolute Lymph 2.42 X10 3/uL Normal 0.83-4.51 [facility] Comment on above: Performed By: #### L 100.0100 #### [facility] [address] [place], [address] Absolute Neut 4.5 X10 3/uL Normal 2.0-7.7 [facility] Comment on above: Performed By: #### L 100.0100 #### [facility] [address] [place], [address] Basophils/100 WBC (Bld) 1.1 % High 0-1 [facility] Comment on above: Performed By: #### L 100.0100 #### [facility] [address] [place], [address] IG% 0.500 Normal 0.0-0.9 [facility] Comment on above: Result Comment: IG% - Immature Granulocytes (promyelocytes, myelocytes and metamyelocytes) > 1% indicates that a LEFT SHIFT is Present. Performed By: #### L 100.0100 #### [facility] [address] [place], [address] Nucleated RBC (Bld) [#/Vol] 0 10*3/uL Normal 0-5 [facility] Comment on above: Performed By: #### L 100.0100 #### [facility] [address] [place], [address] Eosinophils/100 WBC (Bld) 6.7 % High 0-5 [facility] Comment on above: Performed By: #### L 100.0100 #### [facility] [address] [place], [address] Erythrocyte distribution width (RBC) [Ratio] 16.7 % High 11.6-14.6 [facility] Comment on above: Performed By: #### L 100.0100 #### [facility] [address] [place], [address] Hematocrit (Bld) [Volume fraction] 25.3 % Low 37-47 [facility] Comment on above: Performed By: #### L 100.0100 #### [facility] [address] [place], [address] Hemoglobin (Bld) [Mass/Vol] 7.9 g/dL Low 12.0-15.0 [facility] Comment on above: Performed By: #### L 100.0100 #### [facility] [address] [place], [address] Lymphocytes/100 WBC (Bld) 29.9 % Normal 19-41 [facility] Comment on above: Performed By: #### L 100.0100 #### [facility] [address] [place], [address] MCH (RBC) [Entitic mass] 28.4 pg Normal 27.0-32.0 [facility] Comment on above: Performed By: #### L 100.0100 #### [facility] [address] [place], [address] MCHC (RBC) [Mass/Vol] 31.2 g/dL Low 32-36 [facility] Comment on above: Performed By: #### L 100.0100 #### [facility] [address] [place], [address] MCV (RBC) [Entitic vol] 91.0 fL Normal 81-99 [facility] Comment on above: Performed By: #### L 100.0100 #### [facility] [address] [place], [address] Monocytes/100 WBC (Bld) 6.6 % Normal 0-10 [facility] Comment on above: Performed By: #### L 100.0100 #### [facility] [address] [place], [address] Neutrophils/100 WBC (Bld) 55.2 % Normal 47-70 [facility] Comment on above: Performed By: #### L 100.0100 #### [facility] [address] [place], [address] Platelet mean volume (Bld) [Entitic vol] 12.4 fL High 6.2-12.0 [facility] Comment on above: Performed By: #### L 100.0100 #### [facility] [address] [place], [address] Platelets (Bld) [#/Vol] 130 10*3/uL Low 150-450 [facility] Comment on above: Performed By: #### L 100.0100 #### [facility] [address] [place], [address] RBC (Bld) [#/Vol] 2.78 10*6/uL Low 4.2-5.4 [facility] Comment on above: Performed By: #### L 100.0100 #### [facility] [address] [place], [address] RDW SD 55.7 fl High 35.1-43.9 [facility] Comment on above: Performed By: #### L 100.0100 #### [facility] [address] [place], [address] WBC (Bld) [#/Vol] 8.1 10*3/uL Normal 4.4-11.0 [facility] Comment on above: Performed By: #### L 100.0100 #### [facility] [address] [place], [address] Absolute Lymph 2.51 X10 3/uL Normal 0.83-4.51 [facility] Comment on above: Performed By: #### L 501.5200, L500.4050, L100.0100, L501.2300 ####[facility] [address] [place], [address] Absolute Neut 4.1 X10 3/uL Normal 2.0-7.7 [facility] Comment on above: Performed By: #### L 501.5200, L500.4050, L100.0100, L501.2300 ####[facility] [address] [place], [address] Basophils/100 WBC (Bld) 1.0 % Normal 0-1 [facility] Comment on above: Performed By: #### L 501.5200, L500.4050, L100.0100, L501.2300 ####[facility] [address] [place], [address] Eosinophils/100 WBC (Bld) 6.3 % High 0-5 [facility] Comment on above: Performed By: #### L 501.5200, L500.4050, L100.0100, L501.2300 ####[facility] [address] [place], [address] Erythrocyte distribution width (RBC) [Ratio] 16.8 % High 11.6-14.6 [facility] Comment on above: Performed By: #### L 501.5200, L500.4050, L100.0100, L501.2300 ####[facility] [address] [place], [address] Hematocrit (Bld) [Volume fraction] 25.6 % Low 37-47 [facility] Comment on above: Performed By: #### L 501.5200, L500.4050, L100.0100, L501.2300 ####[facility] [address] [place], [address] Hemoglobin (Bld) [Mass/Vol] 7.6 g/dL Low 12.0-15.0 [facility] Comment on above: Performed By: #### L 501.5200, L500.4050, L100.0100, L501.2300 ####[facility] [address] [place], [address] IG% 0.400 Normal 0.0-0.9 [facility] Comment on above: Result Comment: IG% - Immature Granulocytes (promyelocytes, myelocytes and metamyelocytes) > 1% indicates that a LEFT SHIFT is Present. Performed By: #### L 501.5200, L500.4050, L100.0100, L501.2300 ####[facility] [address] [place], [address] Lymphocytes/100 WBC (Bld) 30.8 % Normal 19-41 [facility] Comment on above: Performed By: #### L 501.5200, L500.4050, L100.0100, L501.2300 ####[facility] [address] [place], [address] MCH (RBC) [Entitic mass] 27.4 pg Normal 27.0-32.0 [facility] Comment on above: Performed By: #### L 501.5200, L500.4050, L100.0100, L501.2300 ####[facility] [address] [place], [address] MCHC (RBC) [Mass/Vol] 29.7 g/dL Low 32-36 [facility] Comment on above: Performed By: #### L 501.5200, L500.4050, L100.0100, L501.2300 ####[facility] [address] [place], [address] MCV (RBC) [Entitic vol] 92.4 fL Normal 81-99 [facility] Comment on above: Performed By: #### L 501.5200, L500.4050, L100.0100, L501.2300 ####[facility] [address] [place], [address] Monocytes/100 WBC (Bld) 11.2 % High 0-10 [facility] Comment on above: Performed By: #### L 501.5200, L500.4050, L100.0100, L501.2300 ####[facility] [address] [place], [address] Neutrophils/100 WBC (Bld) 50.3 % Normal 47-70 [facility] Comment on above: Performed By: #### L 501.5200, L500.4050, L100.0100, L501.2300 ####[facility] [address] [place], [address] Nucleated RBC (Bld) [#/Vol] 0.4 10*3/uL Normal 0-5 [facility] Comment on above: Performed By: #### L 501.5200, L500.4050, L100.0100, L501.2300 ####[facility] [address] [place], [address] Platelet mean volume (Bld) [Entitic vol] 12.0 fL Normal 6.2-12.0 [facility] Comment on above: Performed By: #### L 501.5200, L500.4050, L100.0100, L501.2300 ####[facility] [address] [place], [address] Platelets (Bld) [#/Vol] 123 10*3/uL Low 150-450 [facility] Comment on above: Performed By: #### L 501.5200, L500.4050, L100.0100, L501.2300 ####[facility] [address] [place], [address] RBC (Bld) [#/Vol] 2.77 10*6/uL Low 4.2-5.4 [facility] Comment on above: Performed By: #### L 501.5200, L500.4050, L100.0100, L501.2300 ####[facility] [address] [place], [address] RDW SD 56.1 fl High 35.1-43.9 [facility] Comment on above: Performed By: #### L 501.5200, L500.4050, L100.0100, L501.2300 ####[facility] [address] [place], [address] WBC (Bld) [#/Vol] 8.1 10*3/uL Normal 4.4-11.0 [facility] Comment on above: Performed By: #### L 501.5200, L500.4050, L100.0100, L501.2300 ####[facility] [address] [place], [address] Comprehensive Metabolic Prof aron 07-04-2024 Albumin [Mass/Vol] 2.4 g/dL Low 3.2-5.0 [facility] Comment on above: Performed By: #### L 501.5200, L500.4050, L100.0100, L501.2300 ####[facility] [address] [place], [address] Albumin/Globulin [Mass ratio] 0.8 {ratio} Low 0.9-2.4 [facility] Comment on above: Performed By: #### L 501.5200, L500.4050, L100.0100, L501.2300 ####[facility] [address] [place], [address] ALK P 56 U/L Normal 45-117 [facility] Comment on above: Performed By: #### L 501.5200, L500.4050, L100.0100, L501.2300 ####[facility] [address] [place], [address] ALT [Catalytic activity/Vol] 15 U/L Normal 13-56 [facility] Comment on above: Performed By: #### L 501.5200, L500.4050, L100.0100, L501.2300 ####[facility] [address] [place], [address] AST [Catalytic activity/Vol] 17 U/L Normal 15-37 [facility] Comment on above: Performed By: #### L 501.5200, L500.4050, L100.0100, L501.2300 ####[facility] [address] [place], [address] Bilirubin [Mass/Vol] 0.30 mg/dL Normal 0.20-1.00 [facility] Comment on above: Result Comment: For patients on eltrombopag therapy, use of Dimension Ollie TBIL is not recommended. Performed By: #### L 501.5200, L500.4050, L100.0100, L501.2300 ####[facility] [address] [place], [address] BUN/CRE 5.5 RATIO Low 10-20 [facility] Comment on above: Performed By: #### L 501.5200, L500.4050, L100.0100, L501.2300 ####[facility] [address] [place], [address] CA,Total 7.8 mg/dL Low 8.5-10.1 [facility] Comment on above: Performed By: #### L 501.5200, L500.4050, L100.0100, L501.2300 ####[facility] [address] [place], [address] Chloride [Moles/Vol] 104 mmol/L Normal 98-107 [facility] Comment on above: Performed By: #### L 501.5200, L500.4050, L100.0100, L501.2300 ####[facility] [address] [place], [address] CO2 [Moles/Vol] 25.0 mmol/L Normal 21.0-32.0 [facility] Comment on above: Performed By: #### L 501.5200, L500.4050, L100.0100, L501.2300 ####[facility] [address] [place], [address] Creatinine [Mass/Vol] 6.32 mg/dL High 0.55-1.02 [facility] Comment on above: Result Comment: The validity of the calculated GFR GFRAA in patients over 70 years has not been determined. Clinical correlation is essential. Performed By: #### L 501.5200, L500.4050, L100.0100, L501.2300 ####[facility] [address] [place], [address] ECRCL 5.09 ml/min Normal [facility] Comment on above: Performed By: #### L 501.5200, L500.4050, L100.0100, L501.2300 ####[facility] [address] [place], [address] EST GFR - AA 8 mL/min Low >60 [facility] Comment on above: Result Comment: Afri can Kosovan GFR Calc Performed By: #### L 501.5200, L500.4050, L100.0100, L501.2300 ####[facility] [address] [place], [address] GAP 8 Normal 5-15 [facility] Comment on above: Performed By: #### L 501.5200, L500.4050, L100.0100, L501.2300 ####[facility] [address] [place], [address] GFR/1.73 sq M.predicted among non-blacks MDRD (S/P/Bld) [Vol rate/Area] 7 mL/min/{1.73_m2} Low >60 [facility] Comment on above: Result Comment: Non- GFR Calc Performed By: #### L 501.5200, L500.4050, L100.0100, L501.2300 ####[facility] [address] [place], [address] Globulin (S) [Mass/Vol] 3.2 g/dL Normal 2.2-4.2 [facility] Comment on above: Performed By: #### L 501.5200, L500.4050, L100.0100, L501.2300 ####[facility] [address] [place], [address] Glucose [Mass/Vol] 74 mg/dL Normal 74-106 [facility] Comment on above: Performed By: #### L 501.5200, L500.4050, L100.0100, L501.2300 ####[facility] [address] [place], [address] Potassium [Moles/Vol] 4.3 mmol/L Normal 3.5-5.1 [facility] Comment on above: Performed By: #### L 501.5200, L500.4050, L100.0100, L501.2300 ####[facility] [address] [place], [address] Sodium [Moles/Vol] 137 mmol/L Normal 136-145 [facility] Comment on above: Performed By: #### L 501.5200, L500.4050, L100.0100, L501.2300 ####[facility] [address] [place], [address] T PROT 5.6 g/dL Low 6.4-8.2 [facility] Comment on above: Performed By: #### L 501.5200, L500.4050, L100.0100, L501.2300 ####[facility] [address] [place], [address] Urea nitrogen [Mass/Vol] 35 mg/dL High 7-18 [facility] Comment on above: Performed By: #### L 501.5200, L500.4050, L100.0100, L501.2300 ####[facility] [address] [place], [address] Consultation - Nephrologyon 07-04-2024 Consultation - Nephrology [facility] Medical Records Department [address] [place] [address] Consultation - Nephrology 07/04/24 0846 MR#: [id number] Acct: [id number] Name: NICOLE SALVADOR Rep #: [id number] : 1935 89 From: Kianna Patrick DO PCP: Dr. Kishan Camejo MD Status:DIS IN Location: [place] [address] Assessment Plan Assessment/Plan (1) ESRD on hemodialysis: PLAN: HD TTS, next dialysis . AVF with good thrill and bruit. (2) Cardiac arrest: PLAN: back to baseline (3) Syncope and collapse: PLAN: due to CPA (4) Dementia: (5) History of CVA (cerebrovascular accident): (6) Acute hypotension: (7) Essential hypertension: PLAN: stableBP (8) [facility] resident: (9) [facility] resident: HPI Consult Data Date of Consult: 07/04/24 HPI Narrative Reason for Consultation: ESRD HD TTS, renal mgmt HPI Narrative: NICOLE SALVADOR, is a 89 F who presents to [facility] ED via squad 07/03/24 after cardiac arrest [...] and is a resident of [facility]. She is a poor historian. She has a history of multiple strokes, hypertension. Pt nephew at bedside. Spoke with pt daughter over phone at bedside. She voices she wants to be left alone and wants to eat. [facility] Medical History TIA (transient ischemic attack) [...] bisacodyl 10 mg rectal suppository 10 mg NM DAILY PRN constipation 08/29/23 Unknown History donepezil 10 mg tablet 10 mg PO DAILY 08/29/23 Unknown Hi story magnesium hydroxide 400 mg/5 mL 5 ml PO DAILY PRN constipation 01/13 Unknown History oral suspension (Milk of Magnesia) mineral oil (Fleet Mineral Oil 118 ml NM DAILY PRN constipation 0 09/12/23 Unknown History [...] Other Veri (more content not included)... Normal [facility] Consultation - Surgicalon Consultation - Surgical [facility] Medical Records Department [address] [place] [address] Consultation - Surgical 07/04/24 0741 MR#: [id number] Acct: [id number] Name: NICOLE SALVADOR Rep #: [id number] : 1935 89 From: Liliana ROBLERO PCP: Dr. Kishan Camejo MD Status:ADM IN Location: [place] [address] Assessment Plan Assessment/Plan (1) Problem with dialysis [...] a 89 F who presented to the [facility] ER yesterday after an unresponsive episode at [...] they have not noted any further bleeding. [facility] Medical History TIA (transient ischemic attack) [...] bisacodyl 10 mg rectal suppository 10 mg NM DAILY PRN constipation 08/29/23 Unknown History donepezil 10 mg tablet 10 mg PO DAILY 08/29/23 Unknown Hi story magnesium hydroxide 400 mg/5 mL 5 ml PO DAILY PRN constipation 01/13 Unknown History oral suspension (Milk of Magnes (more content not included)... Normal [facility] Magnesiumon 07-04-2024 Magnesium [Mass/Vol] 2.3 mg/dL Normal 1.6-2.6 [facility] Comment on above: Performed By: #### L 501.5200, L500.4050, L100.0100, L501.2300 ####[facility] [address] [place], [address] Phosphoruson 07-04-2024 Phosphate [Mass/Vol] 3.1 mg/dL Normal 2.5-4.9 [facility] Comment on above: Performed By: #### L 501.5200, L500.4050, L100.0100, L501.2300 ####[facility] [address] [place], [address] Basic Metabolic Profile (BMP )on 07-03-2024 BUN/CRE 5.3 RATIO Low 10-20 [facility] Comment on above: Performed By: #### L 500.2500, L100.0100, L501.5425 #### [facility] [address] [place], [address] CA,Total 8.1 mg/dL Low 8.5-10.1 [facility] Comment on above: Performed By: #### L 500.2500, L100.0100, L501.5425 #### [facility] [address] [place], [address] Chloride [Moles/Vol] 99 mmol/L Normal 98-107 [facility] Comment on above: Performed By: #### L 500.2500, L100.0100, L501.5425 #### [facility] [address] [place], [address] CO2 [Moles/Vol] 33.0 mmol/L High 21.0-32.0 [facility] Comment on above: Performed By: #### L 500.2500, L100.0100, L501.5425 #### [facility] [address] [place], [address] Creatinine [Mass/Vol] 4.76 mg/dL High 0.55-1.02 [facility] Comment on above: Result Comment: The validity of the calculated GFR GFRAA in patients over 70 years has not been determined. Clinical correlation is essential. Performed By: #### L 500.2500, L100.0100, L501.5425 #### [facility] [address] [place], [address] ECRCL 7.37 ml/min Normal [facility] Comment on above: Performed By: #### L 500.2500, L100.0100, L501.5425 #### [facility] [address] [place], [address] EST GFR - AA 11 mL/min Low >60 [facility] Comment on above: Result Comment: Afri can Kosovan GFR Calc Performed By: #### L 500.2500, L100.0100, L501.5425 #### [facility] [address] [place], [address] GAP 6 Normal 5-15 [facility] Comment on above: Performed By: #### L 500.2500, L100.0100, L501.5425 #### [facility] [address] [place], [address] GFR/1.73 sq M.predicted among non-blacks MDRD (S/P/Bld) [Vol rate/Area] 9 mL/min/{1.73_m2} Low >60 [facility] Comment on above: Result Comment: Non- GFR Calc Performed By: #### L 500.2500, L100.0100, L501.5425 #### [facility] [address] [place], [address] Glucose [Mass/Vol] 118 mg/dL High 74-106 [facility] Comment on above: Result Comment: Fast ing Glucose result from 100 to 125 mg/dL suggests IMPAIRED HOMEOSTASIS per A.D.A. criteria. Performed By: #### L 500.2500, L100.0100, L501.5425 #### [facility] [address] [place], [address] Potassium [Moles/Vol] 3.5 mmol/L Normal 3.5-5.1 [facility] Comment on above: Performed By: #### L 500.2500, L100.0100, L501.5425 #### [facility] [address] [place], [address] Sodium [Moles/Vol] 138 mmol/L Normal 136-145 [facility] Comment on above: Performed By: #### L 500.2500, L100.0100, L501.5425 #### [facility] [address] [place], [address] Urea nitrogen [Mass/Vol] 25 mg/dL High 7-18 [facility] Comment on above: Performed By: #### L 500.2500, L100.0100, L501.5425 #### [facility] [address] [place], [address] CBC W/Diff, Automatedon 06-23 Absolute Lymph 2.20 X10 3/uL Normal 0.83-4.51 [facility] Comment on above: Performed By: #### L 500.2500, L100.0100, L501.5425 #### [facility] [address] [place], [address] Absolute Neut 4.7 X10 3/uL Normal 2.0-7.7 [facility] Comment on above: Performed By: #### L 500.2500, L100.0100, L501.5425 #### [facility] [address] [place], [address] Basophils/100 WBC (Bld) 1.3 % High 0-1 [facility] Comment on above: Performed By: #### L 500.2500, L100.0100, L501.5425 #### [facility] [address] [place], [address] Eosinophils/100 WBC (Bld) 7.2 % High 0-5 [facility] Comment on above: Performed By: #### L 500.2500, L100.0100, L501.5425 #### [facility] [address] [place], [address] Erythrocyte distribution width (RBC) [Ratio] 16.5 % High 11.6-14.6 [facility] Comment on above: Performed By: #### L 500.2500, L100.0100, L501.5425 #### [facility] [address] [place], [address] Hematocrit (Bld) [Volume fraction] 31.6 % Low 37-47 [facility] Comment on above: Performed By: #### L 500.2500, L100.0100, L501.5425 #### [facility] [address] [place], [address] Hemoglobin (Bld) [Mass/Vol] 9.7 g/dL Low 12.0-15.0 [facility] Comment on above: Performed By: #### L 500.2500, L100.0100, L501.5425 #### [facility] [address] [place], [address] IG% 0.400 Normal 0.0-0.9 [facility] Comment on above: Result Comment: IG% - Immature Granulocytes (promyelocytes, myelocytes and metamyelocytes) > 1% indicates that a LEFT SHIFT is Present. Performed By: #### L 500.2500, L100.0100, L501.5425 #### [facility] [address] [place], [address] Lymphocytes/100 WBC (Bld) 26.3 % Normal 19-41 [facility] Comment on above: Performed By: #### L 500.2500, L100.0100, L501.5425 #### [facility] [address] [place], [address] MCH (RBC) [Entitic mass] 27.8 pg Normal 27.0-32.0 [facility] Comment on above: Performed By: #### L 500.2500, L100.0100, L501.5425 #### [facility] [address] [place], [address] MCHC (RBC) [Mass/Vol] 30.7 g/dL Low 32-36 [facility] Comment on above: Performed By: #### L 500.2500, L100.0100, L501.5425 #### [facility] [address] [place], [address] MCV (RBC) [Entitic vol] 90.5 fL Normal 81-99 [facility] Comment on above: Performed By: #### L 500.2500, L100.0100, L501.5425 #### [facility] [address] [place], [address] Monocytes/100 WBC (Bld) 8.7 % Normal 0-10 [facility] Comment on above: Performed By: #### L 500.2500, L100.0100, L501.5425 #### [facility] [address] [place], [address] Neutrophils/100 WBC (Bld) 56.1 % Normal 47-70 [facility] Comment on above: Performed By: #### L 500.2500, L100.0100, L501.5425 #### [facility] [address] [place], [address] Nucleated RBC (Bld) [#/Vol] 0 10*3/uL Normal 0-5 [facility] Comment on above: Performed By: #### L 500.2500, L100.0100, L501.5425 #### [facility] [address] [place], [address] Platelet mean volume (Bld) [Entitic vol] 12.2 fL High 6.2-12.0 [facility] Comment on above: Performed By: #### L 500.2500, L100.0100, L501.5425 #### [facility] [address] [place], [address] Platelets (Bld) [#/Vol] 140 10*3/uL Low 150-450 [facility] Comment on above: Performed By: #### L 500.2500, L100.0100, L501.5425 #### [facility] [address] [place], [address] RBC (Bld) [#/Vol] 3.49 10*6/uL Low 4.2-5.4 [facility] Comment on above: Performed By: #### L 500.2500, L100.0100, L501.5425 #### [facility] [address] [place], [address] RDW SD 53.8 fl High 35.1-43.9 [facility] Comment on above: Performed By: #### L 500.2500, L100.0100, L501.5425 #### [facility] [address] [place], [address] WBC (Bld) [#/Vol] 8.4 10*3/uL Normal 4.4-11.0 [facility] Comment on above: Performed By: #### L 500.2500, L100.0100, L501.5425 #### [facility] [address] [place], [address] Echo Completeon 07-03-2024 Echo Complete [facility] [address] [place] [address] Echo Complete 07/04/24 0757 MR#: [id number] Acct: [id number] Name: NICOLE SALVADOR Rep #: [id number] : 1935 89 From: Ewa Pittman MD Attending Dr: Dr. Jim Jerez DO Status: ADM IN Ordering Dr: Melody Patrick DO Date: 07/03/24 Location: [facility] Sex: F AA Admitted: 07/03/24 Reason For [...] Dictated: 07/04/24 0757 Date Transcribed: 07/04/24 1412 Assembly Press Operator: Signed Normal [facility] Emergency Department Summary on 07-03-2024 Emergency Department Summary [facility] Medical Records Department [address] [place] [address] Emergency Department Summary 07/03/24 MR#: [id number] Acct: [id number] Name: NICOLE SALVADOR Rep #: [id number] : 1935 89 From: Jose Thapa MD PCP: Dr. Kishan Camejo MD Status:ADM IN Location: [place] [address] HPI History of Present Illness Chief Complaint: [...] fistula diagnosed by Dr. Shepherd June 2023) [facility] Medical History TIA (transient ischemic attack) [...] bisacodyl 10 mg rectal suppository 10 mg NM DAILY PRN constipation 08/29/23 Unknown History donepezil 10 mg tablet 10 mg PO DAILY 08/29/23 Unknown Hi story magnesium hydroxide 400 mg/5 mL 5 ml PO DAILY PRN constipation 01/13 Unknown History oral suspension (Milk of Magnesia) mineral oil (Fleet Mineral Oil 118 ml NM DAILY PRN constipation 0 09/12/23 Unknown History enema) memantine 5 mg tablet 5 mg PO BID 03/12/24 Unknown Histo ry sevelamer carbonate 800 mg tablet 800 mg PO TID 07/03/24 Unknown Hi story vitamin B complex-vitamin C-folic 1 tab DAILY 07/03/24 Unknown Hist ory (more content not included)... Normal [facility] H AND P Exam - Hospitaliston 07-03-2024 H&P Exam - Hospitalist [facility] Medical Records Department [address] [place] [address] H P Exam - Hospitalist 07/03/24 1909 MR#: [id number] Acct: [id number] Name: NICOLE SALVADOR Rep #: [id number] : 1935 89 From: Melody Patrick DO PCP: Dr. Kishan Camejo MD Status:ADM IN Location: [place] [id number] HPI - General General Date of Admission: 07/03/24 Date of Service: 07/03/24 Chief Complaint: Syncope and collapse HPI Narrative NICOLE SALVADOR, is a 89 F who presented who presented to the emergency department [facility] on 07/03/2024 after a syncopal episode [...] with her left upper extremity AV fistula. [facility] Medical History TIA (transient ischemic attack) [...] bisacodyl 10 mg rectal suppository 10 mg NM DAILY PRN constipation 08/29/23 Unknown History donepezil 10 mg tablet 10 mg PO DAILY 08/29/[address] (more content not included)... Normal [facility] L501.4020on 07-03-2024 TROPONIN-I HS 42 pg/mL Normal 3.0-54.0 [facility] Comment on above: Result Comment: Celeste jim Note: New Test Units and Gender Specific Reference Ranges. For more information see Policy Stat Procedure Ollie High Sensitivity Troponin (TNIH) and attachments. Performed By: #### L 501.4020 ####[facility] [address] [place], [address] L501.5425on 07-03-2024 TROPONIN-I HS 46 pg/mL Normal 3.0-54.0 [facility] Comment on above: Order Comment: 1 Y Result Comment: Celeste jim Note: New Test Units and Gender Specific Reference Ranges. For more information see Policy Stat Procedure Ollie High Sensitivity Troponin (TNIH) and attachments. Performed By: #### L 500.2500, L100.0100, L501.5425 #### [facility] [address] [place], [address] Lactic Acidon 07-03-2024 Lactate [Moles/Vol] 1.3 mmol/L Normal 0.4-1.9 [facility] Comment on above: Order Comment: Y Performed By: #### L 503.6005 ####[facility] [address] [facility] [place], [address] Operative Reporton Operative Report [facility] Medical Records Department [address] [place] [address] Operative Report 06/27/24 1113 MR#: [id number] Acct: [id number] Name: NICOLE SALVADOR Rep #: [id number] : 1935 89 From: Jim Shepherd MD PCP: Dr. 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 Timeouts performed conscious sedation administered Versed and fentanyl. Skin overlying the fistula just beyond the anastomosis was anesthetized 1% lidocaine the vessel accessed under ultrasound guidance with a micropuncture needle wire. This was then exchanged for a 6 Cameroonian fistula sheath through which hand-injection digital subtraction [...] to circulate for 3 minutes. The 6 Cameroonian sheath was then exchanged for a 7 Cameroonian sheath and through this and 8 mm x 2 Bard conquest balloon was advanced and centered at the lesion. He was inflated to nominal for 2 minutes and then deflated withdrawn. Next a Bard conquest 10 mm x4 was advanced and inflated to nominal and then deflated withdrawn. Finally a Bard [place] 12 x 4 was advanced centered on the lesion inflated to nominal for 2 minutes and then deflated withdrawn. With each subsequent inflation there appeared to be significant rebound of the lesion so a [employer] cutting balloon 8 mm x 2 [...] MD; Dr. Kishan Camejo MD Signed Normal [facility] AV Fistula/Dialysis Graft Sc anon 06-08-2024 AV Fistula/Dialysis Graft Scan [facility] Cardiovascular Services [address] [place] [address] AV Fistula/Dialysis Graft Scan 06/08/24 1324 MR#: [id number] Acct: [id number] Name: NICOLE SALVADOR Rep #: [id number] : 1935 89 From: Jim Shepherd MD Attending Dr: OSBALDO Mitchell Status: REG CLI Ordering Dr: Liliana Denise Date: 06/08/24 Location: [facility] Sex: F AA Admitted: Reason For Study: Fistula malfunction LEFT Inflow, 160.5/64.1 cm/sec. Inflow, 1773 ml/min. Prox anastamosis, 250.1/110.7 cm/sec. Prox anastamosis, 1417 ml/min. Prox graft, 320.8/162.1 cm/sec. Prox graft, 81061 ml/min. Mid graft, 289.1/83.5 cm/sec. Mid graft, 90664 ml/min. Distal graft, 278.8/153.5 cm/sec. Distal graft, 9678 ml/min. Outflow, 149.4/89.8 cm/sec. Outflow, 3249 ml/min. VL/AV Fistula/Dialysis Graft Scan Interpretation Summary Patent left upper extremity fistula with no stenosis, adequate flow volume, enlarged throughout with largest diameter 2.2 cm __ Ordering Physician: Liliana Denise Referring Physician: Kishan Camejo Performed By: Tamiko Arzate RVT 06/11/24 1146 Date Jim hSepherd MD CC: OSBALDO Mitchell; Dr. Kishan Camejo MD Date Dictated: 06/08/24 1324 Date Transcribed: 06/11/24 1146 Assembly Press Operator: Signed Normal [facility] MR/BMS.BVSon 05-30-2024 MR/BMS.BVS [facility] Vascular Surgery [address] [place] [address]. [address] [place] [address] OFFICE VISIT Date of Service: 05/30/24 MR#: [id number] Acct: [id number] Name: NICOLE SALVADOR Rep #: [id number] : 1935 Provider: OSBALDO Mitchell Age/Sex: 89/F Location: [facility] Status: Signed Intake Vital Signs 04/24/24 [...] bisacodyl 10 mg rectal suppository 10 mg NM DAILY PRN 08/29/23 05/30/24 History donepezil 10 mg tablet 10 mg PO DAILY 08/29/23 05/30/24 History magnesium hydroxide 400 mg/5 mL 5 ml PO DAILY PRN 08/29/23 05/30/24 History oral suspension (Milk of Magnesia) mineral oil (Fleet Mineral Oil 118 ml NM DAILY PRN 09/12/23 05/30/24 History enema) memantine [...] her LUE (more content not included)... Normal [facility] Emergency Department Summary on 04-24-2024 Emergency Department Summary [facility] Medical Records Department [address] [place] [address] Emergency Department Summary 04/24/24 MR#: [id number] Acct: [id number] Name: NICOLE SALVADOR Rep #: [id number] : 1935 89 From: Jolie Mosqueda DO [...] reported. Patient is a resident of the [facility]. She uses a walker at baseline. [facility] Medical History TIA (transient ischemic attack) [...] bisacodyl 10 mg rectal suppository 10 mg NM DAILY PRN 08/29/23 Unknown History donepezil 10 mg tablet 10 mg PO DAILY 08/29/23 Unknown History magnesium hydroxide 400 mg/5 mL 5 ml PO DAILY PRN 08/29/23 Unknown History oral suspension (Milk of Magnesia) mineral oil (Fleet Mineral Oil 118 ml NM DAILY PRN 09/12/23 Unknown History enema) memantine [...] of thyroi (more content not included)... Normal [facility] LIZ + Protein Elect, Serumon 03-15-2024 Albumin [Mass/Vol] 3.6 g/dL Normal 2.9-4.4 [facility] Comment on above: Order Comment: N Performed By: #### L 3100.3425, L3600.4030 #### [facility] [address] [place], [address] Albumin/Globulin [Mass ratio] 1.3 {ratio} Normal 0.7-1.7 [facility] Comment on above: Order Comment: N Performed By: #### L 3100.3425, L3600.4030 #### [facility] [address] [place], [address] [id number] 0.2 g/dL Normal 0.0-0.4 [facility] Comment on above: Order Comment: N Performed By: #### L 3100.3425, L3600.4030 #### [facility] [address] [place], [address] HFGNF-2-ZOWI 0.6 g/dL Normal 0.4-1.0 [facility] Comment on above: Order Comment: N Performed By: #### L 3100.3425, [id number] #### [facility] [address] [place], [address] BETA GLOBULIN 0.8 g/dL Normal 0.7-1.3 [facility] Comment on above: Order Comment: N Performed By: #### L 3100.3425, [id number] #### [facility] [address] [place], [address] GAMMA GLOBULIN 1.2 g/dL Normal 0.4-1.8 [facility] Comment on above: Order Comment: N Performed By: #### L 3100.3425, [id number] #### [facility] [address] [place], [address] Globulin (S) [Mass/Vol] 2.8 g/dL Normal 2.2-3.9 [facility] Comment on above: Order Comment: N Performed By: #### L 3100.3425, [id number] #### [facility] [address] [place], [address] LIZ RESULT,S Comment Normal . [facility] Comment on above: Order Comment: N Result Comment: No m onoclonality detected. Performed By: #### L 3100.3425, L3600.4030 #### [facility] [address] [place], [address] IMMUNOGLOB A QN 359 mg/dL Normal 64-422 [facility] Comment on above: Order Comment: N Performed By: #### L 3100.3425, L3600.4030 #### [facility] [address] [place], [address] IMMUNOGLOB G QN 1112 mg/dL Normal 586-1602 [facility] Comment on above: Order Comment: N Performed By: #### L 3100.3425, [id number] #### [facility] [address] [place], [address] IMMUNOGLOB M QN 231 mg/dL High 26-217 [facility] Comment on above: Order Comment: N Performed By: #### L 3100.3425, L3600.4030 #### [facility] [address] [place], [address] M-Valentín Not Observed Normal Not Observed [facility] Comment on above: Order Comment: N Performed By: #### L 3100.3425, L3600.4030 #### [facility] [address] [place], [place], [address] NOTE: Comment Normal . [facility] Comment on above: Order Comment: N Result Comment: Prot ein electrophoresis scan will follow via computer, mail, or breastfeeding educator delivery. Performed By: #### L 3100.3425, L3600.4030 #### [facility] [address] [place], [place], [address] Protein [Mass/Vol] 6.4 g/dL Normal 6.0-8.5 [facility] Comment on above: Order Comment: N Performed By: #### L 3100.3425, L3600.4030 #### [facility] [address] [place], [place], [address] Immunofixation Urineon 03-15 LIZ Urine Comment: Normal . [facility] Comment on above: Order Comment: N Result Comment: Pres ence of monoclonal protein is unclear at this time. Suggest repeat in 3 to 6 months if clinically indicated. Performed at: [facility] [address] [id number] Planning Analyst: Phil Reagan PhD, Phone: [phone] Performed By: #### L 3100.3425, [id number] #### [facility] [address] [place], [place], [id number] Neurology Visit Reporton Neurology Visit Report [facility] [address], [address] [place], [place] [address] OFFICE VISIT Date of Service: 03/12/24 MR#: [id number] Acct: [id number] Name: NICOLE SALVADOR John Rep #: [id number] : 1935 Provider: Dr. Elkin clemente MD Age/Sex: 89/F Location[place] [facility] Status: Signed HPI [facility] Chief Complaint: Details: Interim History: Nicole returns [...] event. She has been residing in a assisted facility since 2018. She forgets conversations and repeats conversations. She forgets past events. Her memory had worsened over time. She has word finding difficulty. She has not not become lost in the assisted facility. She requires assistance with activities such [...] of cytot (more content not included)... Normal [facility] Folic acid serumOrdered By: Elkin Presley on 05-02-2023 Folate [Mass/Vol] 53.50 ng/mL 3.1-55.4 [facility] - Chemistry and C hemistry - challengeOrdered By: Elkin Presley on 05-02-2023 Cobalamin (Vitamin B12) [Mass/Vol] 883 pg/mL 211-911 [facility] No Panel InformationOrdered By: Elkin Presley on 05-02-2023 Free Lambda Light Chains, Quant 105.1 mg/L 5.7-26.3 [facility] Whole Blood Vitamin B1 Level 89.6 nmol/L 66.5-200.0 [facility] Comment on above: Performed at: [address] [id number] Director: Phil Reagan PhD, Phone: [phone] at: [facility] [address] [id number] Director: Fernanda Hood MD, Phone: [phone] Serum immunoglobulin kappa l ight chains/immunoglobulin lambda light chains mass ratioOrdered By: Elkin Presley on 05-02-2023 Immunoglobulin light chains.kappa/Immunoglobu richard light chains.lambda (S) [Mass ratio] 1.79 0.26-1.65 [facility] Serum or plasma immunoglobul in kappa light chains measurement (mass/volume)Ordered By: Elkin Presley on 05-02-2023 Immunoglobulin light chains.kappa [Mass/Vol] 188.6 mg/L 3.3-19.4 [facility] Absolute lymphocyte countOrd ered By: Micha Feliciano on 03-16-2023 Lymphocytes Auto (Unsp spec) [#/Vol] 1.64 10*3/uL 0.83-4.51 [facility] Basophil percentageOrdered B y: Micha Feliciano on 03-16-2023 Basophils/100 WBC (Bld) 1.0 % 0-1 [facility] Chloride [Moles/Vol] 104 mmol/L 98-107 [facility] Cholesterol [Mass/Vol] 101 mg/dL <200 [facility] Comment on above: <200 mg/dL Desirable 200-240 mg/dL Borderline >240 mg/dL High Risk Eosinophils/100 WBC (Bld) 3.5 % 0-5 [facility] Glucose [Mass/Vol] 85 mg/dL 74-106 [facility] Neutrophils (Bld) [#/Vol] 3.3 10*3/uL 2.0-7.7 [facility] Neutrophils/100 WBC (Bld) 56.7 % 47-70 [facility] Potassium [Moles/Vol] 5.1 mmol/L 3.5-5.1 [facility] Sodium [Moles/Vol] 139 mmol/L 136-145 [facility] Triglyceride [Mass/Vol] 33 mg/dL <199 [facility] Comment on above: The drugs N-Acetylcy steine and Metamizole may falsely depress this assay.Serum Triglycerides Reference Interval Normal <150 mg/dL Borderline high 150 - 199 mg/dL High 200 - 499 mg/dL Very High > or = 500 mg/dL WBC (Bld) [#/Vol] 5.7 10*3/uL 4.4-11.0 [facility] Blood erythrocytes count (nu mber/volume)Ordered By: Micha Feliciano on 03-16-2023 RBC (Bld) [#/Vol] 3.44 10*6/uL 4.2-5.4 [facility] Blood hemoglobin measurement (mass/volume)Ordered By: Micha Feliciano on 03-16-2023 Hemoglobin (Bld) [Mass/Vol] 10.0 g/dL 12.0-15.0 [facility] Blood lymphocytes/100 leukoc ytesOrdered By: Micha Feliciano on 03-16-2023 Lymphocytes/100 WBC (Bld) 28.6 % 19-41 [facility] Blood monocytes/100 leukocyt esOrdered By: Micha Feliciano on 03-16-2023 Monocytes/100 WBC (Bld) 9.9 % 0-10 [facility] Blood platelet mean volumeOr dered By: Micha Feliciano on 03-16-2023 Platelet mean volume (Bld) [Entitic vol] 11.8 fL 6.2-12.0 [facility] Determination of erythrocyte mean corpuscular volume (MCV)Ordered By: Micha Feliciano on 03-16-2023 MCV (RBC) [Entitic vol] 92.2 fL 81-99 [facility] Hematocrit Auto (Bld) [Volum e fraction]Ordered By: Micha Feliciano on 03-16-2023 Hematocrit (Bld) [Volume fraction] 31.7 % 37-47 [facility] - Chemistry and C hemistry - challengeOrdered By: Micha Feliciano on 03-16-2023 CO2 [Moles/Vol] 29.0 mmol/L 21.0-32.0 [facility] Urea nitrogen/Creatinine [Mass ratio] 6.9 mg/mg 10-20 [facility] - Hematology and Cell countsOrdered By: Micha Feliciano on 03-16-2023 Erythrocyte distribution width (RBC) [Entitic vol] 48.5 fL 35.1-43.9 [facility] Erythrocyte distribution width (RBC) [Ratio] 14.5 % 11.6-14.6 [facility] Immature granulocytes/100 WBC (Bld) 0.300 % 0.0-0.9 [facility] Comment on above: IG% - Immature Granu locytes (promyelocytes, myelocytes and metamyelocytes) > 1% indicates that a LEFT SHIFT is Present. MCH (RBC) [Entitic mass] 29.1 pg 27.0-32.0 [facility] Nucleated RBC/100 WBC (Bld) [Ratio] 0 % 0-5 [facility] MCHC Auto (RBC) [Mass/Vol]Or dered By: Micha Feliciano on 03-16-2023 MCHC (RBC) [Mass/Vol] 31.5 g/dL 32-36 [facility] No Panel InformationOrdered By: Micha Feliciano on 03-16-2023 Estimated Creatinine Clearance Calc 4.25 ml/min [facility] Estimated GFR (MDRD) Amer 6 mL/min >60 [facility] Comment on above: GFR Calc Estimated GFR (MDRD) Non-Af Amer 5 mL/min >60 [facility] Comment on above: Non- GFR Calc Platelets bldOrdered By: Jono Feliciano on 03-16-2023 Platelets (Bld) [#/Vol] 140 10*3/uL 150-450 [facility] Serum or plasma calcium prosper urement (mass/volume)Ordered By: Micha Feliciano on 03-16-2023 Calcium [Mass/Vol] 8.1 mg/dL 8.5-10.1 [facility] Serum or plasma cholesterol in HDL measurement (mass/volume)Ordered By: Micha Feliciano on 03-16-2023 Cholesterol in HDL [Mass/Vol] 60 mg/dL >40 [facility] Comment on above: The drugs N-Acetylcy steine and Metamizole may falsely depress this assay. Reference Range HDL <40 mg/dL Low HDL Cholesterol HDL >or= 60 mg/dL High HDL Cholesterol Serum or plasma cholesterol in VLDL measurement (mass/volume)Ordered By: Micha Feliciano on 03-16-2023 Cholesterol in VLDL [Mass/Vol] 7 mg/dL 5-40 [facility] Serum or plasma creatinine m easurement (mass/volume)Ordered By: Micha Feliciano on 03-16-2023 Creatinine [Mass/Vol] 7.71 mg/dL 0.55-1.02 [facility] Comment on above: Critical Result(s) C alled at: 07:00:01 03/16/2023 by: Kathleen Calzada. Results read back by same.The validity of the calculated GFR & GFRAA in patients over 70 years has not been determined. Clinical correlation is essential. Serum or plasma low density lipoprotein (LDL) cholesterol measurement (mass/volume)Ordered By: Micha Feliciano on 03-16-2023 Cholesterol in LDL [Mass/Vol] 34 mg/dL 0-130 [facility] Serum or plasma urea nitroge n measurement (mass/volume)Ordered By: Micha Feliciano on 03-16-2023 Urea nitrogen [Mass/Vol] 53 mg/dL 7-18 [facility] Thin prep Papanicolaou smear with manual screeningOrdered By: Micha Feliciano on 03-16-2023 Thin prep Papanicolaou smear with manual screening 6 5-15 [facility] INR in Blood by Coagulation assayOrdered By: Jey Benitez on 03-15-2023 INR Coag (Bld) [Relative time] 1.0 {INR} [facility] - CoagulationOrde red By: Jey Benitez on 03-15-2023 aPTT Coag (Bld) [Time] 28.2 s 24.1-36.2 [facility] PT Coag (PPP) [Time] 13.2 s 11.7-14.9 [facility] No Panel InformationOrdered By: Jey Benitez on 03-15-2023 Troponin I High Sensitivity 38 pg/mL 3.0-54.0 [facility] Comment on above: Please Note: New Cathleen t Units and Gender Specific Reference Ranges. For more information see Policy Stat Procedure Ollie High Sensitivity Troponin (TNIH) and attachments. Absolute lymphocyte countOrd ered By: John Denisenaomie on 12-06-2022 Lymphocytes Auto (Unsp spec) [#/Vol] 2.17 10*3/uL 0.83-4.51 [facility] Basophil percentageOrdered B y: John Lutz on 12-06-2022 Basophil percentage 3.6 mg/dL 2.5-4.9 [facility] Basophils/100 WBC (Bld) 1.7 % 0-1 [facility] Chloride [Moles/Vol] 102 mmol/L 98-107 [facility] Cholesterol [Mass/Vol] 97 mg/dL <200 [facility] Comment on above: <200 mg/dL Desirable 200-240 mg/dL Borderline >240 mg/dL High Risk Eosinophils/100 WBC (Bld) 4.2 % 0-5 [facility] Glucose [Mass/Vol] 81 mg/dL 74-106 [facility] Neutrophils (Bld) [#/Vol] 2.3 10*3/uL 2.0-7.7 [facility] Neutrophils/100 WBC (Bld) 43.5 % 47-70 [facility] Potassium [Moles/Vol] 4.1 mmol/L 3.5-5.1 [facility] Sodium [Moles/Vol] 139 mmol/L 136-145 [facility] Triglyceride [Mass/Vol] 81 mg/dL <199 [facility] Comment on above: The drugs N-Acetylcy steine and Metamizole may falsely depress this assay.Serum Triglycerides Reference Interval Normal <150 mg/dL Borderline high 150 - 199 mg/dL High 200 - 499 mg/dL Very High > or = 500 mg/dL WBC (Bld) [#/Vol] 5.3 10*3/uL 4.4-11.0 [facility] Blood erythrocytes count (nu mber/volume)Ordered By: John Lutz on 12-06-2022 RBC (Bld) [#/Vol] 3.49 10*6/uL 4.2-5.4 [facility] Blood hemoglobin measurement (mass/volume)Ordered By: John Lutz on 12-06-2022 Hemoglobin (Bld) [Mass/Vol] 9.9 g/dL 12.0-15.0 [facility] Blood lymphocytes/100 leukoc ytesOrdered By: John Lutz on 12-06-2022 Lymphocytes/100 WBC (Bld) 41.1 % 19-41 [facility] Blood monocytes/100 leukocyt esOrdered By: John Lutz on 12-06-2022 Monocytes/100 WBC (Bld) 9.3 % 0-10 [facility] Blood platelet mean volumeOr dered By: John Lutz on 12-06-2022 Platelet mean volume (Bld) [Entitic vol] 12.1 fL 6.2-12.0 [facility] Determination of erythrocyte mean corpuscular volume (MCV)Ordered By: John Lutz on 12-06-2022 MCV (RBC) [Entitic vol] 90.8 fL 81-99 [facility] Hematocrit Auto (Bld) [Volum e fraction]Ordered By: John Lutz on 12-06-2022 Hematocrit (Bld) [Volume fraction] 31.7 % 37-47 [facility] - Chemistry and C hemistry - challengeOrdered By: John Lutz on 12-06-2022 CO2 [Moles/Vol] 30.0 mmol/L 21.0-32.0 [facility] Magnesium [Mass/Vol] 2.5 mg/dL 1.6-2.6 [facility] Urea nitrogen/Creatinine [Mass ratio] 6.5 mg/mg 10-20 [facility] - Hematology and Cell countsOrdered By: John Lutz on 12-06-2022 Erythrocyte distribution width (RBC) [Entitic vol] 53.1 fL 35.1-43.9 [facility] Erythrocyte distribution width (RBC) [Ratio] 15.9 % 11.6-14.6 [facility] Immature granulocytes/100 WBC (Bld) 0.200 % 0.0-0.9 [facility] Comment on above: IG% - Immature Granu locytes (promyelocytes, myelocytes and metamyelocytes) > 1% indicates that a LEFT SHIFT is Present. MCH (RBC) [Entitic mass] 28.4 pg 27.0-32.0 [facility] Nucleated RBC/100 WBC (Bld) [Ratio] 0 % 0-5 [facility] MCHC Auto (RBC) [Mass/Vol]Or dered By: John Lutz on 12-06-2022 MCHC (RBC) [Mass/Vol] 31.2 g/dL 32-36 [facility] No Panel InformationOrdered By: John Lutz on 12-06-2022 Estimated Creatinine Clearance Calc 4.29 ml/min [facility] Estimated GFR (MDRD) Amer 6 mL/min >60 [facility] Comment on above: GFR Calc Estimated GFR (MDRD) Non-Af Amer 5 mL/min >60 [facility] Comment on above: Non- GFR Calc Platelets bldOrdered By: Daniel Lutz on 12-06-2022 Platelets (Bld) [#/Vol] 112 10*3/uL 150-450 [facility] Serum or plasma calcium prosper urement (mass/volume)Ordered By: John Lutz on 12-06-2022 Calcium [Mass/Vol] 8.6 mg/dL 8.5-10.1 [facility] Serum or plasma cholesterol in HDL measurement (mass/volume)Ordered By: John Lutz on 12-06-2022 Cholesterol in HDL [Mass/Vol] 55 mg/dL >40 [facility] Comment on above: The drugs N-Acetylcy steine and Metamizole may falsely depress this assay. Reference Range HDL <40 mg/dL Low HDL Cholesterol HDL >or= 60 mg/dL High HDL Cholesterol Serum or plasma cholesterol in VLDL measurement (mass/volume)Ordered By: John Lutz on 12-06-2022 Cholesterol in VLDL [Mass/Vol] 16 mg/dL 5-40 [facility] Serum or plasma creatinine m easurement (mass/volume)Ordered By: John Lutz on 12-06-2022 Creatinine [Mass/Vol] 8.13 mg/dL 0.55-1.02 [facility] Comment on above: Critical Result(s) C alled at: 07:49:55 12/06/2022 by: Kathleen Campbell to izzo. Results read back by same.The validity of the calculated GFR & GFRAA in patients over 70 years has not been determined. Clinical correlation is essential. Serum or plasma low density lipoprotein (LDL) cholesterol measurement (mass/volume)Ordered By: John Lutz on 12-06-2022 Cholesterol in LDL [Mass/Vol] 26 mg/dL 0-130 [facility] Serum or plasma urea nitroge n measurement (mass/volume)Ordered By: John Lutz on 12-06-2022 Urea nitrogen [Mass/Vol] 53 mg/dL 7-18 [facility] Thin prep Papanicolaou smear with manual screeningOrdered By: John Lutz on 12-06-2022 Thin prep Papanicolaou smear with manual screening 7 5-15 [facility] Absolute lymphocyte countOrd ered By: Jey Benitez on 12-05-2022 Lymphocytes Auto (Unsp spec) [#/Vol] 2.42 10*3/uL 0.83-4.51 [facility] Basophil percentageOrdered B y: Jey Benitez on 12-05-2022 Basophils/100 WBC (Bld) 1.4 % 0-1 [facility] Chloride [Moles/Vol] 102 mmol/L 98-107 [facility] Eosinophils/100 WBC (Bld) 3.4 % 0-5 [facility] Glucose [Mass/Vol] 85 mg/dL 74-106 [facility] Neutrophils (Bld) [#/Vol] 3.1 10*3/uL 2.0-7.7 [facility] Neutrophils/100 WBC (Bld) 47.1 % 47-70 [facility] Potassium [Moles/Vol] 3.8 mmol/L 3.5-5.1 [facility] Sodium [Moles/Vol] 140 mmol/L 136-145 [facility] WBC (Bld) [#/Vol] 6.5 10*3/uL 4.4-11.0 [facility] Blood erythrocytes count (nu mber/volume)Ordered By: Jey Benitez on 12-05-2022 RBC (Bld) [#/Vol] 3.80 10*6/uL 4.2-5.4 [facility] Blood hemoglobin measurement (mass/volume)Ordered By: Jey Benitez on 12-05-2022 Hemoglobin (Bld) [Mass/Vol] 10.8 g/dL 12.0-15.0 [facility] Blood lymphocytes/100 leukoc ytesOrdered By: Jey Benitez on 12-05-2022 Lymphocytes/100 WBC (Bld) 37.2 % 19-41 [facility] Blood monocytes/100 leukocyt esOrdered By: Jey Benitez on 12-05-2022 Monocytes/100 WBC (Bld) 10.6 % 0-10 [facility] Blood platelet mean volumeOr dered By: Jey Benitez on 12-05-2022 Platelet mean volume (Bld) [Entitic vol] 12.9 fL 6.2-12.0 [facility] Determination of erythrocyte mean corpuscular volume (MCV)Ordered By: Jey Benitez on 12-05-2022 MCV (RBC) [Entitic vol] 92.4 fL 81-99 [facility] Glucose Glucometer (dC) [M ass/Vol]Ordered By: Jey Benitez on 12-05-2022 Glucose [Mass/Vol] 85 mg/dL 74-106 [facility] Comment on above: MANAGEMENT OF PATIEN T CARE PER NURSING PROTOCOL Hematocrit Auto (Bld) [Volum e fraction]Ordered By: Jey Benitez on 12-05-2022 Hematocrit (Bld) [Volume fraction] 35.1 % 37-47 [facility] INR in Blood by Coagulation assayOrdered By: Jey Benitez on 12-05-2022 INR Coag (Bld) [Relative time] 1.0 {INR} [facility] - Chemistry and C hemistry - challengeOrdered By: Jey Benitez on 12-05-2022 CO2 [Moles/Vol] 33.0 mmol/L 21.0-32.0 [facility] Urea nitrogen/Creatinine [Mass ratio] 6.8 mg/mg 10-20 [facility] - CoagulationOrde red By: Jey Benitez on 12-05-2022 aPTT Coag (Bld) [Time] 31.5 s 24.1-36.2 [facility] PT Coag (PPP) [Time] 13.1 s 11.7-14.9 [facility] - Hematology and Cell countsOrdered By: Jey Benitez on 12-05-2022 Erythrocyte distribution width (RBC) [Entitic vol] 54.4 fL 35.1-43.9 [facility] Erythrocyte distribution width (RBC) [Ratio] 16.0 % 11.6-14.6 [facility] Immature granulocytes/100 WBC (Bld) 0.300 % 0.0-0.9 [facility] Comment on above: IG% - Immature Granu locytes (promyelocytes, myelocytes and metamyelocytes) > 1% indicates that a LEFT SHIFT is Present. MCH (RBC) [Entitic mass] 28.4 pg 27.0-32.0 [facility] Nucleated RBC/100 WBC (Bld) [Ratio] 0 % 0-5 [facility] MCHC Auto (RBC) [Mass/Vol]Or dered By: Jey Benitez on 12-05-2022 MCHC (RBC) [Mass/Vol] 30.8 g/dL 32-36 [facility] No Panel InformationOrdered By: Jey Benitez on 12-05-2022 Estimated Creatinine Clearance Calc 5.05 ml/min [facility] Estimated GFR (MDRD) Amer 7 mL/min >60 [facility] Comment on above: GFR Calc Estimated GFR (MDRD) Non-Af Amer 6 mL/min >60 [facility] Comment on above: Non- GFR Calc Troponin I High Sensitivity 56 pg/mL 3.0-54.0 [facility] Comment on above: Please Note: New Cathleen t Units and Gender Specific Reference Ranges. For more information see Policy Stat Procedure Ollie High Sensitivity Troponin (TNIH) and attachments. Platelets bldOrdered By: Silvia Benitez on 12-05-2022 Platelets (Bld) [#/Vol] 121 10*3/uL 150-450 [facility] Serum or plasma calcium prosper urement (mass/volume)Ordered By: Jey Benitez on 12-05-2022 Calcium [Mass/Vol] 8.7 mg/dL 8.5-10.1 [facility] Serum or plasma creatinine m easurement (mass/volume)Ordered By: Jey Benitez on 12-05-2022 Creatinine [Mass/Vol] 6.91 mg/dL 0.55-1.02 [facility] Comment on above: The validity of the calculated GFR & GFRAA in patients over 70 years has not been determined. Clinical correlation is essential. Serum or plasma urea nitroge n measurement (mass/volume)Ordered By: Jey Benitez on 12-05-2022 Urea nitrogen [Mass/Vol] 47 mg/dL 7-18 [facility] Thin prep Papanicolaou smear with manual screeningOrdered By: Jey Benitez on 12-05-2022 Thin prep Papanicolaou smear with manual screening 5 5-15 [facility] Absolute lymphocyte countOrd ered By: Dr. Patrick on 07-19-2022 Lymphocytes Auto (Unsp spec) [#/Vol] 2.68 10*3/uL 0.83-4.51 [facility] Basophil percentageOrdered B y: Dr. Patrick on 07-19-2022 Basophil percentage 6.7 mg/dL 2.5-4.9 [facility] Basophils/100 WBC (Bld) 1.3 % 0-1 [facility] Chloride [Moles/Vol] 96 mmol/L 98-107 [facility] Eosinophils/100 WBC (Bld) 4.3 % 0-5 [facility] Glucose [Mass/Vol] 80 mg/dL 74-106 [facility] Neutrophils (Bld) [#/Vol] 3.3 10*3/uL 2.0-7.7 [facility] Neutrophils/100 WBC (Bld) 46.5 % 47-70 [facility] Potassium [Moles/Vol] 5.0 mmol/L 3.5-5.1 [facility] Sodium [Moles/Vol] 135 mmol/L 136-145 [facility] WBC (Bld) [#/Vol] 7.2 10*3/uL 4.4-11.0 [facility] Blood erythrocytes count (nu mber/volume)Ordered By: Dr. Patrick on 07-19-2022 RBC (Bld) [#/Vol] 3.59 10*6/uL 4.2-5.4 [facility] Blood hemoglobin measurement (mass/volume)Ordered By: Dr. Patrick on 07-19-2022 Hemoglobin (Bld) [Mass/Vol] 10.3 g/dL 12.0-15.0 [facility] Blood lymphocytes/100 leukoc ytesOrdered By: Dr. Patrick on 07-19-2022 Lymphocytes/100 WBC (Bld) 37.4 % 19-41 [facility] Blood monocytes/100 leukocyt esOrdered By: Dr. Patrick on 07-19-2022 Monocytes/100 WBC (Bld) 10.2 % 0-10 [facility] Blood platelet mean volumeOr dered By: Dr. Patrick on 07-19-2022 Platelet mean volume (Bld) [Entitic vol] 10.6 fL 6.2-12.0 [facility] COVID-19 virus antigen assay Ordered By: Dr. Feliciano on 07-19-2022 SARS-CoV-2 (COVID-19) Ag IA.rapid Ql (Resp) [facility] Determination of erythrocyte mean corpuscular volume (MCV)Ordered By: Dr. Patrick on 07-19-2022 MCV (RBC) [Entitic vol] 89.7 fL 81-99 [facility] Hematocrit Auto (Bld) [Volum e fraction]Ordered By: Dr. Patrick on 07-19-2022 Hematocrit (Bld) [Volume fraction] 32.2 % 37-47 [facility] Laboratory - Chemistry and C hemistry - challengeOrdered By: Dr. Patrick on 07-19-2022 CO2 [Moles/Vol] 30.0 mmol/L 21.0-32.0 [facility] Magnesium [Mass/Vol] 2.3 mg/dL 1.6-2.6 [facility] Urea nitrogen/Creatinine [Mass ratio] 5.9 mg/mg 10-20 [facility] - Hematology and Cell countsOrdered By: Dr. Patrick on 07-19-2022 Erythrocyte distribution width (RBC) [Entitic vol] 46.8 fL 35.1-43.9 [facility] Erythrocyte distribution width (RBC) [Ratio] 14.3 % 11.6-14.6 [facility] Immature granulocytes/100 WBC (Bld) 0.300 % 0.0-0.9 [facility] Comment on above: IG% - Immature Granu locytes (promyelocytes, myelocytes and metamyelocytes) > 1% indicates that a LEFT SHIFT is Present. MCH (RBC) [Entitic mass] 28.7 pg 27.0-32.0 [facility] Nucleated RBC/100 WBC (Bld) [Ratio] 0 % 0-5 [facility] MCHC Auto (RBC) [Mass/Vol]Or dered By: Dr. Patrick on 07-19-2022 MCHC (RBC) [Mass/Vol] 32.0 g/dL 32-36 [facility] No Panel InformationOrdered By: Dr. Patrick on 07-19-2022 Estimated Creatinine Clearance Calc 4.12 ml/min [facility] Estimated GFR (MDRD) Amer 6 mL/min >60 [facility] Comment on above: GFR Calc Estimated GFR (MDRD) Non-Af Amer 5 mL/min >60 [facility] Comment on above: Non- GFR Calc Platelets bldOrdered By: Dr. Patrick on 07-19-2022 Platelets (Bld) [#/Vol] 146 10*3/uL 150-450 [facility] Serum or plasma calcium prosper urement (mass/volume)Ordered By: Dr. Patrick on 07-19-2022 Calcium [Mass/Vol] 8.4 mg/dL 8.5-10.1 [facility] Serum or plasma creatinine m easurement (mass/volume)Ordered By: Dr. Patrick on 07-19-2022 Creatinine [Mass/Vol] 8.47 mg/dL 0.55-1.02 [facility] Comment on above: Critical Result(s) C alled at: 05:29:35 07/19/2022 by: JUNIE Schreiber RN ICU. Results read back by same.The validity of the calculated GFR & GFRAA in patients over 70 years has not been determined. Clinical correlation is essential. Serum or plasma urea nitroge n measurement (mass/volume)Ordered By: Dr. Patrick on 07-19-2022 Urea nitrogen [Mass/Vol] 50 mg/dL 7-18 [facility] Thin prep Papanicolaou smear with manual screeningOrdered By: Dr. Patrick on 07-19-2022 Thin prep Papanicolaou smear with manual screening 9 5-15 [facility] Basophil percentageOrdered B y: Dr. Patrick on 07-18-2022 Bilirubin [Mass/Vol] 0.50 mg/dL 0.20-1.00 [facility] Comment on above: For patients on eltr ombopag therapy, use of Dimension Ollie TBIL is not recommended. Cholesterol [Mass/Vol] 104 mg/dL <200 [facility] Comment on above: <200 mg/dL Desirable 200-240 mg/dL Borderline >240 mg/dL High Risk Protein [Mass/Vol] 6.1 g/dL 6.4-8.2 [facility] Triglyceride [Mass/Vol] 31 mg/dL <199 [facility] Comment on above: The drugs N-Acetylcy steine and Metamizole may falsely depress this assay.Serum Triglycerides Reference Interval Normal <150 mg/dL Borderline high 150 - 199 mg/dL High 200 - 499 mg/dL Very High > or = 500 mg/dL Laboratory - Chemistry and C hemistry - challengeOrdered By: Dr. Patrick on 07-18-2022 ALP [Catalytic activity/Vol] 58 U/L 45-117 [facility] ALT [Catalytic activity/Vol] 13 U/L 13-56 [facility] Globulin (S) [Mass/Vol] 3.2 g/dL 2.2-4.2 [facility] No Panel InformationOrdered By: Dr. Patrick on 07-18-2022 Thyroid Stimulating Hormone (TSH) 2.18 uIU/mL 0.358-3.74 [facility] Serum or plasma albumin porsper urement (mass/volume)Ordered By: Dr. Patrick on 07-18-2022 Albumin [Mass/Vol] 2.9 g/dL 3.2-5.0 [facility] Serum or plasma albumin/glob ulin mass ratioOrdered By: Dr. Patrick on 07-18-2022 Albumin/Globulin [Mass ratio] 0.9 {ratio} 0.9-2.4 [facility] Serum or plasma cholesterol in HDL measurement (mass/volume)Ordered By: Dr. Patrick on 07-18-2022 Cholesterol in HDL [Mass/Vol] 54 mg/dL >40 [facility] Comment on above: The drugs N-Acetylcy steine and Metamizole may falsely depress this assay. Reference Range HDL <40 mg/dL Low HDL Cholesterol HDL >or= 60 mg/dL High HDL Cholesterol Serum or plasma cholesterol in VLDL measurement (mass/volume)Ordered By: Dr. Patrick on 07-18-2022 Cholesterol in VLDL [Mass/Vol] 6 mg/dL 5-40 [facility] Serum or plasma low density lipoprotein (LDL) cholesterol measurement (mass/volume)Ordered By: Dr. Patrick on 07-18-2022 Cholesterol in LDL [Mass/Vol] 44 mg/dL 0-130 [facility] Thin prep Papanicolaou smear with manual screeningOrdered By: Dr. Patrick on 07-18-2022 Thin prep Papanicolaou smear with manual screening 16 U/L 15-37 [facility] INR in Blood by Coagulation assayOrdered By: Dr. Benitez on 07-17-2022 INR Coag (Bld) [Relative time] 1.0 {INR} [facility] Laboratory - CoagulationOrde red By: Dr. Benitez on 07-17-2022 aPTT Coag (Bld) [Time] 29.2 s 24.1-36.2 [facility] PT Coag (PPP) [Time] 12.9 s 11.7-14.9 [facility] No Panel InformationOrdered By: Dr. Benitez on 07-17-2022 Troponin I High Sensitivity 37 pg/mL 3.0-54.0 [facility] Comment on above: Please Note: New Cathleen t Units and Gender Specific Reference Ranges. For more information see Policy Stat Procedure Ollie High Sensitivity Troponin (TNIH) and attachments. Whole blood hemoglobin A1c/t otal hemoglobin ratio (mass fraction)Ordered By: Dr. Patrick on 07-17-2022 HbA1c (Bld) [Mass fraction] 5.2 % 3.8-5.6 [facility] Comment on above: Normal < 5.7 % Predi abetic 5.7 - 6.4 % Diabetic >or= 6.5 % Please note range changes. Vital Signs Date Time Vital Sign Value Performing Clinician Faci lity 01-18-2025 23:42-0400 Body temperature 98.1 [degF] Dr. Kishan Camejo MD Work Phone: [facility] 01-18-2025 23:42-0400 Diastolic blood pressure 74 mm[Hg] Dr. Kishan Camejo MD Work Phone: [facility] 01-18-2025 23:42-0400 Heart rate 91 /min Dr. Kishan Camejo MD Work Phone: [facility] 01-18-2025 23:42-0400 Respiratory rate 16 /min Dr. Kishan Camejo MD Work Phone: [facility] 01-18-2025 23:42-0400 SaO2% (BldA) [Mass fraction] 99 % Dr. Kishan Camejo MD Work Phone: [facility] 01-18-2025 23:42-0400 Systolic blood pressure 175 mm[Hg] Dr. Kishan Camejo MD Work Phone: [facility] 01-18-2025 19:32-0400 Body mass index (BMI) [Ratio] 23.1 kg/m2 Dr. Kishan Camejo MD Work Phone: [facility] 01-18-2025 19:32-0400 Body weight 59.[address] Kishan Camejo MD Work Phone: [facility] 01-18-2025 18:48-0400 Body height 160.[address] Kishan Camejo MD Work Phone: [facility] 08-03-2023 15:54-0400 Body temperature 97.6 [degF] Dr. Wayne Leahy Work Phone: [facility] 08-03-2023 15:54-0400 Diastolic blood pressure 82 mm[Hg] Dr. Wayne Leahy Work Phone: [facility] 08-03-2023 15:54-0400 Heart rate 80 /min Dr. Wayne Leahy Work Phone: [facility] 08-03-2023 15:54-0400 Respiratory rate 18 /min Dr. Wayne Leahy Work Phone: [facility] 08-03-2023 15:54-0400 SaO2% (BldA) [Mass fraction] 98 % Dr. Wayne Leahy Work Phone: [facility] 08-03-2023 15:54-0400 Systolic blood pressure 166 mm[Hg] Dr. Wayne Leahy Work Phone: 9(561)709-872852 [place] [address] 08-03-2023 14:18-0400 Body height 160.[address] Wayne Leahy Work Phone: 1(007)258-931264 [address] 08-03-2023 14:18-0400 Body mass index (BMI) [Ratio] 25.5 kg/m2 Dr. Wayne Leahy Work Phone: 6(623)212-638752 [place] [address] 08-03-2023 14:18-0400 Body weight 65.[address] Wayne Leahy Work Phone: 6(940)052-928064 [address] 06-29-2023 13:20-0500 Body mass index (BMI) [Ratio] 25.8 kg/m2 Dr. Wayne Leahy Work Phone: 0(352)167-909064 [address] 06-29-2023 13:20-0500 Body temperature 97.4 [degF] Dr. Wayne Leahy Work Phone: 8(532)148-457052 [place] [address] 06-29-2023 13:20-0500 Body weight 66.[address] Wayne Leahy Work Phone: 0(675)873-321752 [place] [address] 06-29-2023 13:20-0500 Diastolic blood pressure 73 mm[Hg] Dr. Wayne Leahy Work Phone: 8(025)929-606252 [place] [address] 06-29-2023 13:20-0500 Heart rate 71 /min Dr. Wayne Leahy Work Phone: 3(245)329-419652 [place] [address] 06-29-2023 13:20-0500 Respiratory rate 17 /min Dr. Wayne Leahy Work Phone: [facility] 06-29-2023 13:20-0500 SaO2% (BldA) [Mass fraction] 96 % Dr. Wayne Leahy Work Phone: [facility] 06-29-2023 13:20-0500 Systolic blood pressure 166 mm[Hg] Dr. Wayne Leahy Work Phone: 6(252)293-983452 [place] [address] 06-13-2023 16:40-0500 Diastolic blood pressure 74 mm[Hg] Dr. Wayne Leahy Work Phone: 6(137)853-766537 [place] [address] 06-13-2023 16:40-0500 Heart rate 71 /min Dr. Wayne Leahy Work Phone: 0(889)229-271652 [place] [address] 06-13-2023 16:40-0500 Respiratory rate 14 /min Dr. Wayne Leahy Work Phone: 4(505)773-685137 [place] [address] 06-13-2023 16:40-0500 SaO2% (BldA) [Mass fraction] 97 % Dr. Wayne Leahy Work Phone: 8(437)723-998237 [place] [address] 06-13-2023 16:40-0500 Systolic blood pressure 128 mm[Hg] Dr. Wayne Leahy Work Phone: 2(504)296-124237 [place] [address] 06-13-2023 14:57-0500 Body height 160.[address] Wayne Leahy Work Phone: 2(378)009-430437 [place] [address] 06-13-2023 14:57-0500 Body mass index (BMI) [Ratio] 26.2 kg/m2 Dr. Wayne Leahy Work Phone: 5(106)435-200337 [place] [address] 06-13-2023 14:57-0500 Body temperature 98.4 [degF] Dr. Wayne Leahy Work Phone: 9(300)965-990337 [place] [address] 06-13-2023 14:57-0500 Body weight 67.[address] Wayne Leahy Work Phone: 2(429)487-556052 [place] [address] 05-02-2023 09:05-0500 Body height 160.[address] Wayne Leahy Work Phone: 7(937)768-529052 [place] [address] 05-02-2023 09:05-0500 Body mass index (BMI) [Ratio] 25.4 kg/m2 Dr. Wayne Leahy Work Phone: 4(767)213-797837 [place] [address] 05-02-2023 09:05-0500 Body temperature 98 [degF] Dr. Wayne Leahy Work Phone: [facility] 05-02-2023 09:05-0500 Body weight 65.[address] Wayne Leahy Work Phone: [facility] 05-02-2023 09:05-0500 Diastolic blood pressure 70 mm[Hg] Dr. Wayne Leahy Work Phone: [facility] 05-02-2023 09:05-0500 Heart rate 83 /min Dr. Wayne Leahy Work Phone: 4(690)404-458252 [place] [address] 05-02-2023 09:05-0500 Respiratory rate 17 /min Dr. Wayne Leahy Work Phone: [facility] 05-02-2023 09:05-0500 SaO2% (BldA) [Mass fraction] 96 % Dr. Wayne Leahy Work Phone: 1(350)535-954652 [place] [address] 05-02-2023 09:05-0500 Systolic blood pressure 148 mm[Hg] Dr. Wayne Leahy Work Phone: 3(761)186-117152 [place] [address] 03-16-2023 14:45-0400 Body temperature 97.9 [degF] Dr. Wayne Leahy Work Phone: [facility] 03-16-2023 14:45-0400 Diastolic blood pressure 54 mm[Hg] Dr. Wayne eLahy Work Phone: [facility] 03-16-2023 14:45-0400 Heart rate 82 /min Dr. Wayne Leahy Work Phone: [facility] 03-16-2023 14:45-0400 Respiratory rate 16 /min Dr. Wayne Leahy Work Phone: [facility] 03-16-2023 14:45-0400 SaO2% (BldA) [Mass fraction] 98 % Dr. Wayne Leahy Work Phone: [facility] 03-16-2023 14:45-0400 Systolic blood pressure 143 mm[Hg] Dr. Wayne Leahy Work Phone: [facility] 03-16-2023 10:00-0400 Body temperature 98.5 [degF] Dr. Wayne Leahy Work Phone: 3(096)138-784452 [place] [address] 03-16-2023 10:00-0400 Diastolic blood pressure 60 mm[Hg] Dr. Wayne Leahy Work Phone: 7(688)406-857752 [place] [address] 03-16-2023 10:00-0400 Heart rate 89 /min Dr. Wayne Leahy Work Phone: 9(442)326-605952 [place] [address] 03-16-2023 10:00-0400 Systolic blood pressure 160 mm[Hg] Dr. Wayne Leahy Work Phone: 2(399)135-283337 [place] [address] 03-16-2023 09:52-0400 Body mass index (BMI) [Ratio] 27.6 kg/m2 Dr. Wayne Leahy Work Phone: 0(940)089-112737 [place] [address] 03-15-2023 16:45-0400 Body height 160.[address] Wayne Leahy Work Phone: 3(898)425-667337 [place] [address] 03-15-2023 16:45-0400 Body weight 70.[address] Wayne Leahy Work Phone: 9(876)082-026237 [place] [address] 12-06-2022 17:00-0400 Body mass index (BMI) [Ratio] 25.3 kg/m2 Dr. Wayne Leahy Work Phone: 6(419)851-658037 [place] [address] 12-06-2022 16:28-0400 Body height 162.[address] Wayne Leahy Work Phone: 1(529)228-948852 [place] [address] 12-06-2022 16:28-0400 Body weight [address] Wayne Leahy Work Phone: 4(468)896-381252 [place] [address] 12-06-2022 16:15-0400 Body temperature 98.3 [degF] Dr. Wayne Leahy Work Phone: 4(327)638-537737 [place] [address] 12-06-2022 16:15-0400 Diastolic blood pressure 65 mm[Hg] Dr. Wayne Leahy Work Phone: 5(723)890-068137 [place] [address] 12-06-2022 16:15-0400 Heart rate 79 /min Dr. Wayne Leahy Work Phone: [facility] 12-06-2022 16:15-0400 Respiratory rate 16 /min Dr. Wayne Leahy Work Phone: [facility] 12-06-2022 16:15-0400 SaO2% (BldA) [Mass fraction] 95 % Dr. Wayne Leahy Work Phone: 4(448)805-609052 [place] [address] 12-06-2022 16:15-0400 Systolic blood pressure 141 mm[Hg] Dr. Wayne Leahy Work Phone: 7(824)557-141737 [place] [address] 12-05-2022 13:58-0400 Body temperature 98.6 [degF] Dr. Wayne Leahy Work Phone: 2(556)502-665437 [place] [address] 12-05-2022 13:58-0400 Diastolic blood pressure 60 mm[Hg] Dr. Wayne Leahy Work Phone: 5(359)014-179452 [place] [address] 12-05-2022 13:58-0400 Heart rate 80 /min Dr. Wayne Leahy Work Phone: 8(447)395-588252 [place] [address] 12-05-2022 13:58-0400 Respiratory rate 14 /min Dr. Wayne Leahy Work Phone: 5(295)056-285952 [place] [address] 12-05-2022 13:58-0400 SaO2% (BldA) [Mass fraction] 96 % Dr. Wayne Leahy Work Phone: 6(768)403-834752 [place] [address] 12-05-2022 13:58-0400 Systolic blood pressure 140 mm[Hg] Dr. Wayne Leahy Work Phone: 8(215)287-990452 [place] [address] 12-05-2022 12:37-0400 Body mass index (BMI) [Ratio] 25.9 kg/m2 Dr. Wayne Leahy Work Phone: 6(698)530-499552 [place] [address] 12-05-2022 12:37-0400 Body weight 68.[address] Wayne Leahy Work Phone: 3(858)422-254152 [place] [address] 12-05-2022 12:36-0400 Body height 162.[address] Wayne Leahy Work Phone: 2(716)803-283864 [address] 08-16-2022 13:13-0400 Body mass index (BMI) [Ratio] 26.4 kg/m2 Dr. Wayne Leahy Work Phone: 8(159)175-322237 [place] [address] 08-16-2022 13:13-0400 Body weight 69.[address] Wayne Leahy Work Phone: 6(532)386-218537 [place] [address] 08-16-2022 13:13-0400 Diastolic blood pressure 66 mm[Hg] Dr. Wayne Leahy Work Phone: 5(147)787-040837 [place] [address] 08-16-2022 13:13-0400 Respiratory rate 18 /min Dr. Wayne Leahy Work Phone: 0(469)728-966437 [place] [address] 08-16-2022 13:13-0400 SaO2% (BldA) [Mass fraction] 94 % Dr. Wayne Leahy Work Phone: 2(756)169-225537 [place] [address] 08-16-2022 13:13-0400 Systolic blood pressure 131 mm[Hg] Dr. Wayne Leahy Work Phone: 4(611)502-386537 [place] [address] 07-19-2022 14:00-0500 Body temperature 98.1 [degF] Dr. Wayne Leahy Work Phone: 8(589)422-973637 [place] [address] 07-19-2022 14:00-0500 Diastolic blood pressure 57 mm[Hg] Dr. Wayne Leahy Work Phone: 7(793)014-545237 [place] [address] 07-19-2022 14:00-0500 Heart rate 82 /min Dr. Wayne Leahy Work Phone: 4(879)960-194537 [place] [address] 07-19-2022 14:00-0500 Respiratory rate 15 /min Dr. Wayne Leahy Work Phone: 8(990)608-427437 [place] [address] 07-19-2022 14:00-0500 SaO2% (BldA) [Mass fraction] 97 % Dr. Wayne Leahy Work Phone: 3(853)003-947937 [place] [address] 07-19-2022 14:00-0500 Systolic blood pressure 120 mm[Hg] Dr. Wayne Leahy Work Phone: [facility] 07-19-2022 06:00-0500 Body mass index (BMI) [Ratio] 26.1 kg/m2 Dr. Wayne Leahy Work Phone: [facility] 07-19-2022 06:00-0500 Body weight 69.[address] Wayne Leahy Work Phone: [facility] 07-18-2022 08:05-0500 Body height 162.[address] Wayne Leahy Work Phone: [facility] Encounters Encounter Date Encounter Type Care Provider Facility Start: 01-18-2025 End: 01-18-2025 Emergency department patient visit Dr. Kishan Camejo MD Work Phone: -Emergency Department Work Phone: Start: 08-01-2024 End: 08-01-2024 ambulatory Kishan Camejo Facility:[facility] Start: 07-17-2024 ambulatory Kishan Camejo Facility:[facility] Start: 07-04-2024 ambulatory Kishan Camejo Facility:[facility] Start: 07-03-2024 ambulatory Jim Shepherd Facility:[facility] Start: 07-03-2024 End: 07-05-2024 Evaluation and management of inpatient Jim Joao Facility:[facility] Start: 06-27-2024 ambulatory Jimfrank Shepherd Facility:[facility] Start: 06-27-2024 End: 06-27-2024 ambulatory Jim Joao Facility:[facility] Start: 06-08-2024 ambulatory Jimfrank Shepherd Facility:[facility] Start: 06-08-2024 End: 06-08-2024 ambulatory Kishan Camejo Facility:[facility] Start: 06-06-2024 ambulatory Jimfrank Shepherd Facility:[facility] Start: 05-30-2024 End: 05-30-2024 ambulatory Kishan Camejo Facility:[facility] Start: 04-24-2024 End: 04-24-2024 Emergency department patient visit Jolie Panda Facility:[facility] Start: 03-12-2024 End: 03-12-2024 ambulatory Kishan Camejo Facility:[facility] Start: 03-12-2024 End: 03-12-2024 ambulatory Kishan Camejo Facility:[facility] Start: 08-03-2023 End: 08-03-2023 Emergency department patient visit Dr. Wayne Leahy Work Phone: [facility]Emer[facility] Work Phone: Start: 06-29-2023 End: 06-29-[address] Wayne Leahy Work Phone: [facility] Work Phone: Start: 06-13-2023 End: 06-13-2023 Emergency department patient visit Dr. Wayne Leahy Work Phone: [facility] Work Phone: Start: 05-02-2023 End: 05-02-[address] Wayne Leahy Work Phone: [facility] Work Phone: Start: 05-02-2023 End: 05-02-[address] Wayne Leahy Work Phone: [facility] Work Phone: Start: 05-02-2023 End: 05-02-[address] Wayne Leahy Work Phone: [facility] Work Phone: Start: 03-29-2023 End: 03-29-[address] Wayne Leahy Work Phone: [facility] Work Phone: Start: 03-16-2023 Non-patient / Non-visit Dr. Mario Leahy Work Phone: [facility] Work Phone: Start: 03-15-2023 Non-patient / Non-visit Dr. Mario Leahy Work Phone: [facility] Work Phone: Start: 03-15-2023 End: 03-16-2023 Evaluation and management of inpatient [facility] Start: 03-15-2023 End: 03-16-[address] Wayne Leahy Work Phone: [facility] Work Phone: Start: 12-06-2022 Non-patient / Non-visit Dr. Mario Leahy Work Phone: [facility] Work Phone: Start: 12-06-2022 Non-patient / Non-visit Dr. Mario Leahy Work Phone: [facility] Start: 12-05-2022 Non-patient / Non-visit Dr. Mario Leahy Work Phone: [facility] Work Phone: Start: 12-05-2022 End: 12-06-2022 Evaluation and management of inpatient [facility]. Wayne Leah[facility] Start: 12-05-2022 End: 12-06-[address] Wayne Leahy Work Phone: [facility] Work Phone: Start: 08-16-2022 End: 08-16-[address] Wayne Leahy Work Phone: [facility] Work Phone: Start: 07-19-2022 Non-patient / Non-visit Dr. Mario Leahy Work Phone: [facility] Start: 07-19-2022 Non-patient / Non-visit Dr. Mario Leahy Work Phone: [facility] Start: 07-18-2022 Non-patient / Non-visit Dr. Mario Leayh Work Phone: [facility] Start: 07-18-2022 Non-patient / Non-visit Dr. Mario Leahy Work Phone: [facility] Start: 07-17-2022 Non-patient / Non-visit Dr. Mario Leahy Work Phone: [facility] Start: 07-17-2022 End: 07-19-2022 Evaluation and management of inpatient Dr. Wayne Leahy Work Phone: [facility] Start: 06-01-2022 End: 06-01-[address] Wayne Leahy Work Phone: [facility] Start: 04-23-2022 End: 04-23-[address] Wayne Leahy Work Phone: [facility] Start: 12-15-2019 End: 12-15-2019 Patient encounter procedure UNKNOWN PROVIDER Facility:[facility] Procedures Date Procedure Procedure Detail Performing Clinician [...] Date Care Activity Detail Author Start: 01-18-2025 [facility] Start: 01-18-2025 Chest 1 View (Portable) Chest 1 View (Portable) [facility] Start: 01-18-2025 XR Chest Single view [facility] Start: 08-03-2023 [facility] Start: 06-13-2023 [facility] Start: 05-02-2023 Fallis and lambda lig ht chains [facility] Start: 05-02-2023 Thiamine measurement [facility] Start: 03-16-2023 Patient discharge [facility] Start: 03-15-2023 Following clinical p athway protocol [facility] Start: 03-15-2023 Ambulation without limitation [facility] Start: 03-15-2023 Assessment of risk o f venous thromboembolism [facility] Start: 03-15-2023 Cardiac monitoring [facility] Start: 03-15-2023 Catheterization of vein [facility] Start: 03-15-2023 Elevation of head of bed [facility] Start: 03-15-2023 Exercises [facility] Start: 03-15-[address] anned interventions [facility] Start: 03-15-2023 Insertion of cathete r into peripheral vein [facility] Start: 03-15-2023 Measuring intake and output [facility] Start: 03-15-2023 Notification of physician [facility] Start: 03-15-2023 Oxygen therapy [facility] Start: 03-15-2023 Patient referral to dietitian [facility] Start: 03-15-2023 Providing care accor ding to standard [facility] Start: 03-15-2023 Referral to emergency dispatch operator [facility] Start: 03-15-2023 Referral to occupati onal therapist [facility] Start: 03-15-2023 Referral to service [facility] Start: 03-15-2023 Speech therapy assessment [facility] Start: 03-15-2023 Tobacco use cessatio n education [facility] Start: 03-15-2023 [facility] Start: 03-15-2023 Vital signs measurements [facility] Start: 03-15-2023 Verification routine [facility] Start: 03-15-2023 Admission procedure [facility] Start: 03-15-2023 Inhalation therapy procedure [facility] Start: 03-15-2023 Patient referral to dietitian [facility] Start: 12-06-2022 Patient discharge [facility] Start: 12-05-2022 Following clinical p athway protocol [facility] Start: 12-05-2022 Ambulation without limitation [facility] Start: 12-05-2022 Assessment of risk o f venous thromboembolism [facility] Start: 12-05-2022 Cardiac monitoring [facility] Start: 12-05-2022 Catheterization of vein [facility] Start: 12-05-2022 Continuous pulse oximetry [facility] Start: 12-05-2022 Elevation of head of bed [facility] Start: 12-05-2022 Exercises [facility] Start: 12-05-[address] anned interventions [facility] Start: 12-05-2022 Inhalation therapy procedure [facility] Start: 12-05-2022 Insertion of cathete r into peripheral vein [facility] Start: 12-05-2022 Measuring intake and output [facility] Start: 12-05-2022 Notification of physician [facility] Start: 12-05-2022 Oxygen therapy [facility] Start: 12-05-2022 Patient referral to dietitian [facility] Start: 12-05-2022 Providing care accor ding to standard [facility] Start: 12-05-2022 Provision of activit y privileges [facility] Start: 12-05-2022 Referral to emergency dispatch operator [facility] Start: 12-05-2022 Referral to occupati onal therapist [facility] Start: 12-05-2022 Referral to service [facility] Start: 12-05-2022 Speech therapy assessment [facility] Start: 12-05-2022 Tobacco use cessatio n education [facility] Start: 12-05-2022 [facility] Start: 12-05-2022 MRI of brain without contrast Brain without Contrast [facility] Start: 12-05-2022 Verification routine [facility] Start: 12-05-2022 Admission procedure [facility] Start: 12-05-2022 Oxygen therapy [facility] Start: 12-05-2022 [facility] Start: 07-19-2022 Patient discharge [facility] Start: 07-18-2022 Bleeding precautions [facility] Start: 07-17-2022 Following clinical p athway protocol [facility] Start: 07-17-2022 [facility] Start: 07-17-2022 Assessment of risk o f venous thromboembolism [facility] Start: 07-17-2022 Bedrest [facility] Start: 07-17-2022 Cardiac monitoring [facility] Start: 07-17-2022 Catheterization of vein [facility] Start: 07-17-2022 Continuous pulse oximetry [facility] Start: 07-17-2022 Elevation of head of bed [facility] Start: 07-17-2022 Exercises [facility] Start: 07-17-[address] anned interventions [facility] Start: 07-17-2022 Incentive spirometry [facility] Start: 07-17-2022 Insertion of cathete r into peripheral vein [facility] Start: 07-17-2022 Measuring intake and output [facility] Start: 07-17-2022 Notification of physician [facility] Start: 07-17-2022 Oxygen therapy [facility] Start: 07-17-2022 Patient referral to dietitian [facility] Start: 07-17-2022 Providing care accor ding to standard [facility] Start: 07-17-2022 Referral to emergency dispatch operator [facility] Start: 07-17-2022 Referral to occupati onal therapist [facility] Start: 07-17-2022 Referral to service [facility] Start: 07-17-2022 Speech therapy assessment [facility] Start: 07-17-2022 Tobacco use cessatio n education [facility] Start: 07-17-2022 Vital signs measurements [facility] Start: 07-17-2022 [facility] Start: 07-17-2022 Admission procedure [facility] Start: 07-17-2022 Bleeding precautions [facility] Start: 07-17-2022 Consultation [facility] Start: 07-17-2022 Inhalation therapy procedure [facility] Start: 07-17-2022 Patient referral to dietitian [facility] Fallis/lambda light c hugh ratio [facility] Lambda light chains. free [Mass/volume] in Serum or Plasma [facility] Patient Education [facility] Work Phone: Patient referral [facility] Work Phone: Urine kappa light ch ain measurement [facility] Immunizations Immunization Date Immunization Notes Care Provider Rui lauro 01-05-[address] Wayne Leahy Work Phone: [facility] 02-16-2016 influenza, injectabl e, quadrivalent, preservative free Dr. Wayne Leahy Work Phone: [facility] 02-16-2016 influenza, seasonal, injectable Dr. Wayne Leahy Work Phone: [facility] 07-24-2015 pneumococcal vaccine , unspecified formulation Dr. Wayne Leahy Work Phone: [facility] 03-24-[address] Wayne Leahy Work Phone: [facility] Payers Date Payer Category Payer Self-pay [id number] 2023 Medicaid [id number] 2023 Unknown [id number] 2019 Unknown [id number] 2014 Medicare [id number] 1935 Unknown [id number] 2.16. [id number] Unknown [id number] 2.16.8 40.1.591873.3.579.2.462 Unknown [id number] 2.16.8 40.1.835400.3.579.2.462 Unknown [id number] 2.16.8 40.1.809455.3.579.2.462 Unknown [id number] 2.16.8 40.1.063389.3.579.2.462 Unknown [id number] 2.16.8 40.1.899753.3.579.2.462 Unknown [id number] 2.16.8 40.1.506847.3.579.2.462 Unknown [id number] 2.16.8 40.1.792529.3.579.2.462 Unknown [id number] 2.16.8 40.1.664805.3.579.2.462 Unknown [id number] 2.16.8 40.1.324920.3.579.2.462 Unknown [id number] 2.16.8 40.1.030028.3.579.2.462 Unknown [id number] 2.16.8 40.1.167646.3.579.2.462 Unknown [id number] 2.16.8 40.1.258724.3.579.2.462 Unknown [id number] 2.16.8 40.1.995886.3.579.2.462 Unknown [id number] 2.16.8 40.1.654101.3.579.2.462 Unknown [id number] 2.16.8 40.1.253254.3.579.2.462 Unknown [id number] 2.16.8 40.1.739740.3.579.2.462 Unknown [id number] 2.16.8 40.1.857276.3.579.2.462 Unknown [id number] 2.16.8 40.1.135363.3.579.2.462 Social History Date Type Detail Facility Start: 07-19-2022 End: 05-02-2023 Tobacco smoking status NHIS Unknown if ever smoked [facility] Start: 10-26-2019 None [facility] Start: 10-26-2019 Senior Care [facility] Start: 07-19-2022 Non-smoker [facility] Start: 1935 Sex Assigned At Female [facility] Start: 01-18-2025 Tobacco smoking stat us ALIS Never smoked tobacco (finding) [facility] Medical Equipment Procedure Code Equipment Code [...] status Ambulates;Rich r;Bathroom Privilege;Active Range of Motion [facility] Work Phone: 12-06-2022 Functional status Ambulates [facility] Work Phone: 07-19-2022 Functional status Bedrest [facility] Work Phone: Mental Status Date Assessment Result Facility 01-18-2025 Cognitive function Level Of Cons ciousness Awake;Alert;Disoriented [facility] Work Phone: 03-16-2023 Cognitive function Voice/Name [facility] Work Phone: 12-06-2022 Cognitive function Voice/Name [facility] Work Phone: 12-05-2022 Cognitive function Voice/Name [facility] Work Phone: 07-19-2022 Cognitive function Appropriate;Cooperativ e [facility] Work Phone: Clinical Notes 07-20-2019 to 01-18-2025 Note Date & Type Note Facility 01-18-2025 Radiology Diagnostic study note [facility] Imaging Services [address] [place] [address] Chest 1 View (Portable) MR#: [id number] Acct: [id number] Name: NICOLE SALVADOR Rep #: [id number] : 1935 F 89 From: Shadi Zafar MD PCP: Dr. Kishan Camejo MD Status: REG E R Study:Chest 1 View (Portable) Date of Exam: 01/18/25 Exam# [id number] Ordering Dr: Sha Maravilla MD PROCEDURE: CHEST [...] Prominent cardiomegaly with vascular congestion. Reading Location: [id number] CC: Dr. Deric Maravilla MD; Dr. 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 Continue to use her glaucoma eyedrops. As prescribed. See Dr. Avila first thing tomorrow morning. Tuesday morning. Call his office at 8 AM. Erythromycin eye ointment twice a day. [facility] Work Phone: 07-05-2024 Note [facility] Medical Records Department [address] [place] [address] Discharge Summary 07/05/24 1322 MR#: [id number] Acct: [id number] Name: NICOLE SALVADOR Rep #: [id number] : 1935 89 From: Jim Jerez DO PCP: Dr. Kishan Camejo MD Status:ADM IN [facility] Providers Date of Admission: 07/03/24 Primary Care [...] Glaucoma-Continue home eyedrops * Chronic HFpEF-Diastolic in inuqyn-Xxinxbcjdad-Joijnvmx for volume management * COPD/asthma-Continue home inhalers * Dementia-Continue home memantine [facility]charge back to [facility]. DW family at bedside. Medications at Discharge [...] bisacodyl 10 mg rectal suppository 10 mg NM DAILY PRN constipation 08/29/23 donepezil 10 mg tablet 10 mg PO DAILY 08/29/23 magnesium hydroxide 400 mg/5 mL oral suspension (Milk of Magnesia) 5 ml PO DAILY PRN constipation 08/29/23 mineral oil (Fleet Mineral Oil enema) 118 ml NM DAILY PRN constipation 09/12/23 memantine 5 mg [...] Weight / BM (more content not included)... [facility] 08-03-2023 Discharge summary Note Date/Time August 03, 2023 2:29pm [facility] Medical Records Department [address] [place] [address] Emergency Department Summary 08/03/23 MR#: [id number] Acct: [id number] Name: NICOLE SALVADOR Rep #:[id number] : 1935 88 From: Jey Benitez MD [...] can also use her wheelchair in the assisted facility. They are to follow-up with orthopedics [...] and aspirin presents via EMS from the [facility] with head injury. Mariola is [...] injury, no neck pain, no other symptoms. [facility] Medical History Acute respiratory failure with [...] she could be return safely to the assisted facility. I do not feel she requires [...] Tylenol as needed for pain. Disposition Disposition: Snf Facility Discharge Location: [facility] What to do if you have Problems For any increased pain, shortness of breath, bleeding, nausea or vomiting, chestpain, or any unexpected problems, contact your Primary Care Provider. Call [facility] ([phone]) or report to the closest Emergency Room. Call 911 if necessary. 08/03/23 1452 <Electronically signed by Jey Benitez MD> Cosigner Signature (if applicable): CC: Dr. Kishan Camejo MD ~ Signed [facility] Work Phone: 1(482) 342-107701-22-2024 Discharge summary Author Jose Thapa [facility] June 13, 2023 3:49pm Note Date/Time June 13, 2023 3 :24pm [facility] Medical Records Department [address] [place] [address] Emergency Department Summary 06/13/23 MR#: [id number] Acct: [id number] Name: NICOLE SALVADOR Rep #:[id number] : 1935 88 From: Jose Thapa MD [...] your Primary Care Provider. Call [facility] ([phone]) or report to the closest Emergency Room. Call 911 if necessary. 06/13/23 1547 <Electronically signed by Jose Thapa MD> Cosigner Signature (if applicable): CC: Dr. Kishan Camejo MD ~ Signed [facility] Work Phone: 1(159) 778-438310-25-2023 Discharge summary Author Micha Jodie [facility] March 16, 2023 11:49am Note Date/Time March 16, 2023 1 1:47am [facility] Medical Records Department [address] [place] [address] Transfer to [facility] MR#: [id number] Acct: [id number] Name: NICOLE SALVADOR Rep #:[id number] : 1935 88 From: Micha newton MD PCP: Dr. Wayne Leahy MD Status:ADM I NO Certification of patient admission REQUIRED AT TIME OF ADMISSION. I CERTIFY THAT POST-HOSPITAL F SERVICES ARE REQUIRED TO BE GIVEN ON AN IN-PATIENT BASIS BECAUSE OF THE ABOVE NAMED PATIENT'S NEED FOR FCI CARE ON A CONTINUING BASIS FOR THE CONDITION(S) FOR WHICH HE/SHE WAS RECEIVING IN-PATIENT HOSPITAL SERVICES PRIOR TO HIS/HER TRANSFER TO THE [facility]. 03/16/23 1149<Electronically signed by Micha Feliciano MD> [...] Status: Acute Code(s): R53.1 - Weakness (4) [facility] resident: Status: Acute Code(s): Z59.3 - Problems [...] in before D/C Order can be placed): Snf Facility (5) Dementia Qualifiers: Dementia type: vascular dementia 03/16/23 1149 <Electronically signed by Micha Feliciano MD> Cosigner Signature (if applicable): CC: Dr. Kianna Patrick DO; Dr. Wayne Leahy MD ~ [facility] Work Phone: 1(130) 601-480510-24-2023 History and physical note Author Micha Feliciano [facility] March 15, 2023 4:56pm Note Date/Time March 15, 2023 3 :04pm [facility] Medical Records Department [address] [facility] [place] [address] H&P Exam - Hospitalist 03/15/23 1456 MR#: [id number] Acct: [id number] Name: NICOLE SALVADOR Rep #:[id number] : 1935 88 From: Micha newton MD PCP: Dr. Wayne Leahy MD Status:ADM I NO Location: ICU ICU02-1 HPI - General General Date of Admission: 03/15/23 HPI Narrative NICOLE SALVADOR, is a 88 F who [facility] with signs and symptoms consistent with a stroke. She was at dialysis when she developed left-sided weakness and confusion. Does appear that the confusion is resolved as is the left-sided weakness. Stroke alert was called and [facility] neurology recommended inpatient observation with further stroke work-up. She has had significant work-ups in the past with negative MRIs and she had a recent echo inJuly that demonstrated an EF of 65% with stage II diastolic dysfunction. She iscompletely asymptomatic and is alert and oriented person and place. No tPA was given. [facility] Medical History Acute respiratory failure with [...] 78.5 H, Lymph % (Auto) 10.3 L, Hemphill % (Auto) 8.3, Eos % (Auto) 1.6, [...] with colleagues Charges/Coding Visit Charges Inpatient E&M: 13232 Init Hosp L3 03/15/23 1656 <Electronically signed by Micha Feliciano MD> Cosigner Signature (if applicable): CC: Dr. Micha Feliciano MD; Dr. Wayne Leahy MD~ Signed [facility] Work Phone: 1(937) 591-979310-24-2023 Discharge summary Author Jey Benitez [facility] March 15, 2023 11:59am Note Date/Time March 15, 2023 1 1:33am [facility] Medical Records Department [address] [place] [address] Emergency Department Summary 03/15/23 MR#: [id number] Acct: [id number] Name: NICOLE SALVADOR Rep #:[id number] : 1935 88 From: Jey Benitez MD [...] upper and lower extremity is improving rapidly. [facility] Medical History Acute respiratory failure with [...] 78.5 H Lymph % (Auto) 10.3 L Hemphill % (Auto) 8.3 Eos % (Auto) 1.6 [...] on hemodialysis Disposition Disposition: Acute Care Hospital [facility] What to do if you have Problems For any increased pain, shortness of breath, bleeding, nausea or vomiting, chestpain, or any unexpected problems, contact your Primary Care Provider. Call [facility] ([phone]) or report to the closest Emergency Room. Call 911 if necessary. 03/15/23 1159 <Electronically signed by Jey Benitez MD> Cosigner Signature (if applicable): CC: Dr. Wayne Leahy MD ~ Signed [facility] Work Phone: 1(320) 323-650307-16-2023 History and physical note Author John Lutz [facility] December 05, 2022 2:28pm Note Date/Time December 05, 2022 2:28 pm [facility] Medical Records Department [address] [place] [address] H&P Exam - Hospitalist 12/05/22 1406 MR#: [id number] Acct: [id number] Name: NICOLE SALVADOR Rep #:[id number] : 1935 87 From: John Lutz MD PCP: Dr. Wayne Leahy MD Status:ADM I NO Location: [place] [address] HPI - General General Date of Service: [...] negative [facility] [...] % (Auto) 47.1, Lymph % (Auto) 37.2, Hemphill % (Auto) 10.6 H, Eos % (Auto) [...] Tuesdays and Saturdays consult placed to patient's emergency dispatch operator Dr. Patrick Case already discussed with 3. [...] 18 minutes. Charges/Coding Visit Charges Inpatient E&M: 45152 Init Hosp L3 Procedures Hospitalists Procedures: 40810 Advncd Care Plan 30 Min 12/05/22 1428 <Electronically signed by John Lutz MD> Cosigner Signature (if applicable): CC: Dr. John Lutz MD; Dr. Wayne Leahy MD~ Signed [facility] Work Phone: 1(647) 304-637407-16-2023 Discharge summary Author Jey Benitez [facility] December 05, 2022 1:58pm Note Date/Time December 05, 2022 12:5 1pm [facility] Medical Records Department [address] [place] [address] Emergency Department Summary 12/05/22 MR#: [id number] Acct: [id number] Name: NICOLE SALVADOR Rep #:[id number] : 1935 87 From: Jey Benitez MD PCP: Dr. Wayne Leahy MD Status:REG E R Location: ED HPI History of Present Illness Chief Complaint: Stroke Alert Narrative Narrative: 87-year-old female past medical history of end-stage renal disease, hypertension, presents with her daughter because at mandaen, she became unresponsive. She became more confused [...] called from triage because of the dysarthria. [facility] Medical History Acute respiratory failure with [...] % (Auto) 47.1 Lymph % (Auto) 37.2 Hemphill % (Auto) 10.6 H Eos % (Auto) [...] disease (ESRD) Disposition Disposition: Acute Care Hospital [facility] What to do if you have Problems For any increased pain, shortness of breath, bleeding, nausea or vomiting, chestpain, or any unexpected problems, contact your Primary Care Provider. Call [facility] ([phone]) or report to the closest Emergency Room. Call 911 if necessary. 12/05/22 1358 <Electronically signed by Jey Benitez MD> Cosigner Signature (if applicable): CC: Dr. Wayne Leahy MD ~ Signed [facility] Work Phone: 1(439) 113-816202-27-[address] Feliciano [facility] July 19, 2022 2:08pm Note Date/Time July 19, 2022 2:03pm [facility] Medical Records Department [address] [place] [address] Transfer to [facility] MR#: [id number] Acct: [id number] Name: LUCASNICOLE L Rep #:[id number] : 1935 87 From: Micha newton MD PCP: Dr. Wayne Leahy MD Status:ADM I N Certification of patient admission REQUIRED AT TIME OF ADMISSION. I CERTIFY THAT POST-HOSPITAL ECF SERVICES ARE REQUIRED TO BE GIVEN ON AN IN-PATIENT BASIS BECAUSE OF THE ABOVE NAMED PATIENT'S NEED FOR FCI CARE ON A CONTINUING BASIS FOR THE [...] García ; Esteban Waddell ; Mounika Mayes CHAIR PAD MAKER ; Melody Patrick Discharge Orders/Prescriptions Prescriptions: Continued [...] in before D/C Order can be placed): Sn[facility] Facility 07/19/22 1672 <Electronically signed by Micha Feliciano MD> Cosigner Signature (if applicable): CC: CHAIR PAD MAKER-Jayshree Mayes; Dr. Michel Lee MD; Dr. Kianna Patrick DO; Dr. Lonny Joseph DO; Dr. Melody Patrick DO; Dr. Darnell García MD; Dr. Wayne Leahy MD; Dr. Esteban Waddell MD ~ [facility] Work Phone: 1([phone]) 237-524802-27-[address] Lee [facility] July 19, 2022 3:46pm Note Date/Time July 19, 2022 7:48am [facility] Medical Records Department [address] [place] [address] Progress Note - Sueding Machine Tender 07/19/22 0744 MR#: [id number] Acct: [id number] Name: NICOLE SALVADOR John Rep #:[id number] : 1935 87 From: Michel Lee MD [...] as indicated. This note was generated with [employer] dictation software. It may contain incorrectwords, spelling, [...] (Auto) 46.5 L, Lymph % (Auto) 37.4, Hemphill % (Auto) 10.2 H, Eos % (Auto) [...] flat affect Charges/Coding Visit Charges Inpatient E&M: 88230 Subs Hosp L2 07/19/22 1546 <Electronically signed by Michel Lee MD> Cosigner Signature (if applicable): CC: ~ Signed [facility] Work Phone: 1(351) 760-578602-27-[address] Patrick [facility] July 19, 2022 7:25am Note Date/Time July 19, 2022 7:26am [facility] Medical Records Department [address] [place] [address] Telemedicine Confirmation Receipt 07/19/22 MR#: [id number] Acct: [id number] Name: NICOLE SALVADOR Rep #:[id number] : 1935 87 From: Melody Patrick DO PCP: Dr. Wayne Leahy MD Status:ADM I N [facility] Telemed has confirmed receipt of a request for visit. This document confirms receipt of the order initiating the consult. To find the results of the consultation, please view the patient's reports for the scanned Telemed Consult. [facility] Work Phone: 1(336) 601-579002-26-[address] Patrick [facility] July 18, 2022 2:28pm Note Date/Time July 18, 2022 2:28pm [facility] Medical Records Department [address] [place] [address] Telemedicine Confirmation Receipt 07/18/22 MR#: [id number] Acct: [id number] Name: LUCASNICOLE L Rep #:[id number] : 1935 87 From: Melody Patrick DO PCP: Dr. Wayne Leahy MD Status:ADM I N [facility] Telemed has confirmed receipt of a request for visit. This document confirms receipt of the order initiating the consult. To find the results of the consultation, please view the patient's reports for the scanned Telemed Consult. [facility] Work Phone: 1(898) 366-244402-26-[address] Patrick [facility] July 18, 2022 11:57am Note Date/Time July 18, 2022 11:57am [facility] Medical Records Department [address] [place] [address] Progress Note - Hospitalist 07/18/22 1148 MR#: [id number] Acct: [id number] Name: NICOLE SALVADOR Rep #:[id number] : 1935 87 From: Melody Patrick DO [...] Neut % (Auto) 48.0, Lymph % (Auto) 37.5,Hemphill % (Auto) 9.5, Eos % (Auto) 3.3, [...] distress and well nourished Constitutional Narrative: Elderly -Kos[place] female, sitting up in bed watching television, [...] with family Charges/Coding Visit Charges Inpatient E&M: 20635 Subs Hosp L2 07/18/22 1157 <Electronically signed by Melody Patrick DO> Cosigner Signature (if applicable): CC: ~ Signed [facility] Work Phone: 1(530) 214-512302-26-[address] Joseph [facility] July 18, 2022 6:25am Note Date/Time July 18, 2022 5:42am [facility] Medical Records Department [address] [place] [address] Consultation - Sueding Machine Tender 07/18/22 0538 MR#: [id number] Acct: [id number] Name: NICOLE SALVADOR Rep #:[id number] : 1935 87 From: Lonny Joseph DO [...] medicationsas indicated. This note was generated with [employer] dictation software. It may contain incorrectwords, spelling, [...] admitted to the medical intensive care unit. [facility] Medical History Acute respiratory failure with [...] % (Auto) 56.0, Lymph % (Auto) 29.9, Hemphill % (Auto) 9.1, Eos % (Auto) 3.1, [...] Neut % (Auto) 48.0, Lymph % (Auto) 37.5,Hemphill % (Auto) 9.5, Eos % (Auto) 3.3, [...] EST , Charges/Coding Visit Charges Inpatient E&M: 86126 Init Hosp L3 07/18/22 0625 <Electronically signed by Lonny Joseph DO> Cosigner Signature (if applicable): CC: TOM Mayes; Dr. Michel Lee MD; Dr. Kianna Patrick DO; Dr. Lonny Joseph DO; Dr. Darnell García MD; Dr. Wayne Leahy MD; Dr. Esteban Waddell MD~ Signed [facility] Work Phone: 1(204) 508-809202-25-2023 History and physical note Author Dr. Patrick [facility] July 17, 2022 1:26pm Note Date/Time July 17, 2022 12:46pm [facility] Medical Records Department [address] [place] [address] H&P Exam - Hospitalist 07/17/22 1243 MR#: [id number] Acct: [id number] Name: NICOLE SALVADOR Rep #:[id number] : 1935 87 From: Melody Patrick DO PCP: Dr. Wayne Leahy MD Status:ADM I N Location: ICU ICU01-1 HPI - General General Date of Admission: 07/17/22 Date of Service: 07/17/22 Chief Complaint: Dysarthria/aphasia/left facial droop/left-sided weakness HPI Narrative NICOLE SALVADOR, is a 87 F who presented to the emergency department at [facility] on 07/17 2022 from her dialysis [...] intermittently following commands. [facility] Sees Dr. [...] fistula until 24 hours after tPA dosing. [facility] Medical History Acute respiratory failure with [...] Physical Exam Const alert Constitutional Narrative: Elderly, -Kosovan female, lying in bed, daughter at bedside, [...] % (Auto) 56.0, Lymph % (Auto) 29.9, Hemphill % (Auto) 9.1, Eos % (Auto) 3.1, [...] with family Charges/Coding Visit Charges Inpatient E&M: 45045 Init Hosp L3 07/17/22 1326 <Electronically signed by Melody Patrick DO> Cosigner Signature (if applicable): CC: Dr. Melody Patrick DO; Dr. Wayne Leahy MD~ Signed [facility] Work Phone: 1(668) 725-655502-25-[address] Benitez [facility] July 17, 2022 12:35pm Note Date/Time July 17, 2022 11:36am [facility] Medical Records Department [address] [place] [address] Emergency Department Summary 07/17/22 MR#: [id number] Acct: [id number] Name: NICOLE SALVADOR Rep #:[id number] : 1935 87 From: Jey Benitez MD [...] appears more confused, notfollowing commands as well. 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, and she would like [...] % (Auto) 56.0 Lymph % (Auto) 29.9 Hemphill % (Auto) 9.1 Eos % (Auto) 3.1 [...] 12:23 EST Reading Location ID and State: [facility] / [place] , Service support , Critical Care Time Critical Care Time: Yes Critical care time (excluding procedures): 30-74 minutes (31), Including time spent:, Discussing w/Patient &/or Family/Drug Safety Coordinator, Discussing w/Consultants, Arranging Admission or Transfer and Performing Direct Patient Care at Bedside Discharge Plan Dx/Rx/DC Orders Clinical Impression: Essential hypertension, End-stage renal disease (ESRD), Stroke, Received intravenous tissue plasminogen activator (tPA) in emergency department Disposition Disposition: Acute Care Hospital [facility] What to do if you have Problems For any increased pain, shortness of breath, bleeding, nausea or vomiting, chestpain, or any unexpected problems, contact your Primary Care Provider. Call [facility] ([phone]) or report to the closest Emergency Room. Call 911 if necessary. 07/17/22 1239 <Electronically signed by Jey Benitez MD> Cosigner Signature (if applicable): CC: Dr. Wayne Leahy MD ~ Signed [facility] Work Phone: [phone]) 548-749707-25-2020 Evaluation note* Diagnosis Onset Date Resolution Status [...] Essential hypertension chron ic Hyperlipidemia chronic Hypertension [facility] Work Phone: [phone]) 119-427502-28-2020 Evaluation note* Diagnosis Onset Date Resolution Status Chronic diastolic (congestive) heart failure chronic End-stage renal disease (ESRD) chronic Essential hypertension chron ic History of loop recorder July 20, 2019 chronic Hyperlipidemia chronic Confusion acute Slurred speech acute TIA (transient ischemic attack) acute Dementia chronic End-stage renal disease (ESRD) [facility] Work Phone: [phone]) 334-867902-28-2020 Evaluation note* Diagnosis Onset Date Resolution Status [...] (cerebrovascular accident) December 14 chronic Hypertension chronic [facility] Work Phone: Discharge summary Author Melody Patrick [facility] December 06, 2022 4:59pm Note Date/Time December 06, 2022 4:59 pm [facility] Medical Records Department [address] [place] [address] Transfer to [facility] MR#: [id number] Acct: [id number] Name: NICOLE SALVADOR Rep #:[id number] : 1935 87 From: Melody Patrick DO PCP: Dr. Wayne Leahy MD Status:ADM I NO Certification of patient admission REQUIRED AT TIME OF ADMISSION. I CERTIFY THAT POST-HOSPITAL ECF SERVICES ARE REQUIRED TO BE GIVEN ON AN IN-PATIENT BASIS BECAUSE OF THE ABOVE NAMED PATIENT'S NEED FOR [facility] CARE ON A CONTINUING BASIS FOR THE CONDITION(S) FOR WHICH HE/SHE WAS RECEIVING IN-PATIENT HOSPITAL SERVICES PRIOR TO HIS/HER TRANSFER TO THE ECF. 12/06/22 1655<Electronically signed by Melody Patrick DO> Diet Diet [...] Anemia Qualifiers: Anemia type: iron deficiency 12/06/22 7679 <Electronically signed by Melody Patrick DO> Cosigner Signature (if applicable): CC: Dr. Kianna Patrick DO; Dr. John Lutz MD; Dr. Wayne Leahy MD ~ [facility] Work Phone: Discharge summary Author Melody Patrick [facility] December 06, 2022 5:15pm Note Date/Time December 06, 2022 5:02 pm [facility] Medical Records Department [address] [place] [address] Discharge Summary 12/06/22 1659 MR#: [id number] Acct: [id number] Name: NICOLE SALVADOR Rep #:[id number] : 1935 87 From: Melody Patrick DO PCP: Dr. Wayne Leahy MD Status:ADM I NO Location: [place] [address] Providers Date of Admission: 12/05/22 Date of [...] Hospital Course: Mrs. Salvador is an 87-year-old -K[place] female with history of stroke and TIAs who presented to the emergency department at [facility] on 12/05/2022 with slurred speech and [...] day of this admission she was at [facility] with her daughter and became unresponsive. There [...] and no significant stenosis. Stroke neurologist from [facility] was contacted and did not recommend tPA [...] habitus and well nourished Constitutional Narrative: Elderly, -Kosovan, female, lying in bed with her eyes [...] 43.5 L, Lymph % (Auto) 41.1 H, Hemphill % (Auto) 9.3, Eos % (Auto) 4.2, [...] Magnesium 2.5, Triglycerides 81, Cholesterol 97, LDL [id number], VLDL Cholesterol 16, HDL Cholesterol 55 Radiography [...] NH/Intermed Care Charges/Coding Visit Charges Inpatient E&M: 63505 SNF Disch 12/06/22 1715 <Electronically signed by Melody Patrick DO> Cosigner Signature (if applicable): CC: Dr. Melody Patrick DO; Dr. Wayne Leahy MD~ Signed [facility] Work Phone: Discharge summary Author Micha Feliciano [facility] March 16, 2023 2:37pm Note Date/Time March 16, 2023 2 :07pm [facility] Medical Records Department [address] [place] [address] Discharge Summary 03/16/23 1403 MR#: [id number] Acct: [id number] Name: NICOLE SALVADOR Rep #:[id number] : 1935 88 From: Micha newton MD PCP: Dr. Wayne Leahy MD Status:ADM I NO Location: [place] [address] Providers Date of Admission: 03/15/23 Primary Care [...] Status: Acute Code(s): R53.1 - Weakness (4) [facility] resident: Status: Acute Code(s): Z59.3 - Problems [...] is a 88 F who presents from [facility] with signs and symptoms consistent with a stroke. She was at dialysis when she developed left- sided weakness and confusion. Does appear that the confusion is resolved as is the left-sided weakness. Stroke alert was called and [facility] neurology recommended inpatient observation with further stroke [...] the risk benefits of going to the [facility] and would like for her to be [...] Neut % (Auto) 56.7, Lymph % (Auto) 28.6,Hemphill % (Auto) 9.9, Eos % (Auto) 3.5, [...] in before D/C Order can be placed): [facility] Facility Charges/Coding Visit Charges Inpatient E&M: 34350 Disch Hosp >30min 03/16/23 1437 <Electronically signed by Micha Feliciano MD> Cosigner Signature (if applicable): CC: Dr. Micha Feliciano MD; Dr. Wayne Leahy MD~ Signed [facility] Work Phone: Evaluation note* Diagnosis Onset Date Resolution Status Dementia acute Confusion resolved Slurred speech resolved Confusion acute Dementia acute ESRD on hemodialysis acute Left-sided weakness acute [facility] resident acute Essential hypertension chron ic [facility] Work Phone: Evaluation note* Diagnosis Onset Date Resolution Status Confusion acute Dementia acute ESRD on hemodialysis acute [facility] resident acute Essential hypertension chron ic Left-sided weakness resolved Dementia acute Polyneuropathy acute [facility] Work Phone: Evaluation note* Diagnosis Onset Date Resolution Status Dementia acute Polyneuropathy acute ESRD on hemodialysis acute Problem with dialysis access acute [facility] Work Phone: Evaluation noteNo assessment information available [facility] Work Phone: Hospital Discharge instructions Additional Instructions 1. Apply ice to your left arm and foot 6-10 times a day for 20 to 30 minutes per application. 2. You may feel worse over the next 24 to 48 hours. 3. You may hurt for several days up to a week. 4. [facility] Discharge instructions Additional Instructions Resume previous medications and routines. Tylenol as needed for pain. Weightbearing as tolerated with your walker. You may also use your wheelchair. Follow-up with orthopedics in approximately 1 week. You may require repeat x-rays.[facility] Work Phone: Summary Purpose Family History No Family History Records Found Relationship Condition Age at Onset Recorded Date/T genesis mother Malignant neoplasm of colon Unknown Hypertension Unknown father Hypertension Unknown Advance Directives No Advanced Directives Records Found Advance Directive Response Recorded Date/ Time Name of Medical Power of Deputy Commissioner [place] Salvador July 17, 2022 1:50pm Advance Directives No April 10:31am Living Will No July 17, 2 023 1:50pm Power of Deputy Commissioner Yes July 17, 2022 1:50pm Advance Directive Response Recorded Date/ Time Name of Medical Power of Deputy Commissioner LISA- ARIANE December 05, 2022 12:49pm Advance Directives No April 11:31am Living Will No December 05, 2022 12:49pm Power of Deputy Commissioner Yes December 05 12:49pm Advance Directive Response Recorded Date/ Time Name of Medical Power of Deputy Commissioner Mohsen Alcaraz (daughters) December 05, 2022 2:40pm Advance Directives No April 11:31am Living Will No December 05, 2022 2:40pm Power of Deputy Commissioner Yes December 05 2:40pm Advance Directive Response Recorded Date/ Time Name of Medical Power of Deputy Commissioner Mohsen Alcaraz (daughters) December 05, 2022 2:40pm Name of Medical Power of Deputy Commissioner ARPAN MCLEAN CLAY PRICE-ARIANE March 15, 2023 9:57am Advance Directives No April 11:31am Living Will No March 15 1:15pm Power of Deputy Commissioner No March 15, 2023 1:15pm Advance Directive Response Recorded Date/ Time Name of Medical Power of Deputy Commissioner LIZZETTE MCLEANJOSÉBOSTONVinhARIANE March 15, 2023 8:57am Advance Directives No April 10:31am Living Will No June 13 3:01pm Power of Deputy Commissioner No June 13, 2023 3:01pm Advance Directive Response Recorded Date/ Time Advance Directives No April 11:31am Living Will No August 03, 2023 2:24pm Power of Deputy Commissioner No August 02 2:24pm Advance Directive Response Recorded Date/ Time Name of Medical Power of Deputy Commissioner LIZZETTE MCLEANJOSÉBOSTONVinhARIANE March 15, 2023 8:57am Advance Directives No April 10:31am Living Will No March 15 12:15pm Power of Deputy Commissioner No March 15, 2023 12:15pm Advance Directive Response Recorded Date/ Time Do you have a Healthcare Power of Deputy Commissioner? Yes January 18, 2025 7:33pm Advance Directives [...] Essential hypertension Hyperlipidemia Hypertension Chief Complaint S/p [facility] TIA Reason for Visit Chronic diastolic (c ongestive) heart failure End-stage renal disease (ESRD) Essential hypertension History of loop recorder Hyperlipidemia Confusion Slurred speech TIA (transient ischemic attack) Dementia End-stage renal disease (ESRD) Chief Complaint S/p [facility] TIA TIA (cardiology) TIA (cardiology) Reason for [...] Confusion Dementia ESRD on hemodialysis Left-sided weakness [facility] resident Essential hypertension Chief Complaint CVA R/O CVA R/O CVA R/O Pacer Check Remote DEMENTIA EORDER FALL Reason for Visit Confusion Dementia ESRD on hemodialysis [facility] resident Essential hypertension Left-sided weakness Dementia Polyneuropathy Chief Complaint DEMENTIA EORDER FALL FISTULOGRAM - PROLONGED BLEEDING head injury, fall Reason for Visit Dementia Polyneuropathy ESRD on hemodialysis Problem with dialysis access Chief Complaint CVA R/O CVA R/O CVA R/O DEMENTIA EORDER Reason for Visit Confusion Dementia ESRD on hemodialysis [facility] resident Essential hypertension Left-sided weakness Dementia Polyneuropathy Chief Complaint Admit Date RED LEFT EYE, COUGHING UP SPUTUM January 18, 2025 6:47pm Additional Source Comments INFORMATION SOURCE (unrecogn ized section and content) DATE CREATED AUTHOR 12/16/2019 [employer] DATE CREATED AUTHOR AUTHOR'S ORGANIZ ATION 2025 [facility] Care Teams (unrecognized sec tion [...] Waddell MD Other Provider Active Mounika Mayes CHAIR PAD MAKER, CHAIR PAD MAKER-C Other Provider Active Team Status: Active Member [...] Waddell MD Other Provider Active Mounika Mayes CHAIR PAD MAKER, CHAIR PAD MAKER-C Other Provider Active Team Status: Active Member Role Status Dates Dr. Wayne Leahy MD Primary Care Provider Active Jey Benitez MD Emergency Provider Active Dr. Melody Patirck , DO Admit Provider, Other Provider Ac tive Dr. Kianna Patrick , DO Other Provider Active Dr. Michel Lee MD Other Provider Active Dr. Lonny Joseph , DO Other Provider Active Dr. Darnell García MD Other Provider Active Dr. Esteban Waddell MD Other Provider Active Mounika Mayes CHAIR PAD MAKER, CHAIR PAD MAKER-C Other Provider Active Dr. Micha Feliciano MD [...] Waddell MD Other Provider Active Mounika Mayes CHAIR PAD MAKER, CHAIR PAD MAKER-C Other Provider Active Dr. Micha Feliciano MD [...] Waddell MD Other Provider Active Mounika Mayes CHAIR PAD MAKER, CHAIR PAD MAKER-C Other Provider Active Dr. Micha Feliciano MD [...] Jey Benitez MD Emergency Provider Active Dr. Jonh Lutz MD Admit Provider, Other Provider A [...] BE BASED ON THE PRIMARY CLINICAL RECORDS. [email or web address] provides no warranty or guarantee of the accuracy or completeness of information in this document.
[2025-04-23] MEDS: 0.9% Normal Saline (1000mL) 1,000 ML 50 ML IV (04:47)
[2025-04-23] MEDS: 0.9% Saline Lock 10 ML Syringe IV (04:49)
--- NOTE | 2025-04-23 05:55 | RAD_ITS ---
PROCEDURE: ABDOMEN SINGLE VIEW (PORTABLE) 04/23/2025 REASON FOR EXAM: SMALL BOWEL OBSTRUCTION TECHNIQUE: Procedure Code: RADABD_P Modality: DX Procedure: ABDOMEN SINGLE VIEW (PORTABLE) COMPARISON: Same day CT study. FINDINGS: Stable appearing distended bowel lobes in keeping with earlier noted small-bowel obstruction. Renal shadows are obscured by bowel gas. RAD/Abdomen Single View (Portable) IMPRESSION: Stable appearing distended bowel lobes in keeping with earlier noted small-tobi l obstruction. Reading Location[facility]
[2025-04-23 06:31] LABS: Hematocrit 34.3 % (37-47); Hemoglobin 10.9 g/dL (12.0-15.0); Immature Granulocytes Count 0.050 X10^3/uL (0.0-0.0); Mean Corp Hgb Conc 31.8 g/dL (32-36); Mean Corpuscular Volume 85.8 fL (81-99); Mean Platelet Vol. 11.7 fl (6.2-12.0); NRBC Flagged by Analyzer 0 % (0-5); Platelet Count 169 K/mm3 (150-450); RBC Distribution Width CV 16.4 % (11.6-14.6); RBC Distribution Width SD 50.6 fl (35.1-43.9); Red Blood Count 4.00 M/mm3 (4.2-5.4); White Blood Count 10.0 K/mm3 (4.4-11.0)
[2025-04-23] MEDS: Albuterol 2.5 MG/3 ML VIAL.NEB. INHALATION ×2 (06:56→19:02)
[2025-04-23] MEDS: Budesonide Respules 0.5 MG/2 ML AMPUL.NEB. INHALATION ×2 (06:56→19:03)
[2025-04-23 07:35] LABS: Anion Gap 16 (5-15); BUN 45 mg/dL (4-19); BUN/Creat Ratio 5.0 RATIO (10-20); Calcium,Total 8.0 mg/dL (7.6-11.0); Carbon Dioxide 24.9 mmol/L (21.0-32.0); Chloride 97 mmol/L (98-108); Estimated Creatinine Clearance 3.29 ml/min (50-250); Glucose 94 mg/dL (70-99); Potassium 3.5 mmol/L (3.3-5.1)
[2025-04-23] MEDS: 0.9% Normal Saline 1,000 ML IV.SOLN. 1000 ML OPERA.SITE (09:17)
[2025-04-23] MEDS: PureFlow B 3K Dialysis Soln 1 BAG 6 BAG PF (09:17)
--- NOTE | 2025-04-23 09:34 | PCM.CONS.R ---
Assessment & Plan Assessment/Plan (1) End stage renal disease on dialysis: PLAN: dialysis TTS, currently on dialysis without incident. DW dialysis nurse (2) Dementia: PLAN: chronic, ECF resident (3) Hypertension: PLAN: stable (4) Small bowel obstruction: PLAN: asymptomatic HPI Consult Data Date of Consult: 04/23/25 HPI Narrative Reason for Consultation: ESRD HD TTS HPI Narrative: LOUISE ZAVALA, is a 89 F with dementia, ECF resident admitted for SBO. Currently on dialysis with stable BP, below EDW. No complaints of abdominal pain, nausea, vomiting. Reported diarrhea. Pt poor historian due to dementia. Chart review. [facility] Medical History (Updated 04/23/25 @ 03:[address] Darnell Randolph, DO) End stage renal disease Vascular dementia, unspecified severity, with other behavioral disturbance Dependence on renal dialysis Dysarthria following cerebral infarction Peripheral vascular disease, unspecified Dysarthria and anarthria Neuromuscular dysfunction of bladder, unspecified Hypothyroidism, unspecified Transient cerebral ischemic attack, unspecified Aphasia following cerebral infarction Frontal lobe and executive function deficit following cerebral infarction Chronic obstructive pulmonary disease, unspecified Hypertensive heart and chronic kidney disease without heart failure, with stage 5 chronic kidney disease, or end stage renal disease Hemiplegia, unspecified affecting left nondominant side Memory deficit following cerebral infarction care home resident AV fistula care home resident ESRD on hemodialysis TIA (transient ischemic attack) Anemia Hypertension ESRD (end stage renal disease) on dialysis Problem with dialysis access Chronic diastolic (congestive) heart failure End-stage renal disease (ESRD) History of CVA (cerebrovascular accident) (12/15/19) Essential hypertension Problem with dialysis access Respiratory failure with hypoxia Iron deficiency anemia RENAL FAILURE STAGE 6 Chronic renal failure, stage 5 Dementia Elevated troponin I level Metabolic acidosis Acute respiratory failure with hypoxia Anemia Iron deficiency anemia Chronic kidney disease (CKD) stage G5/A1, glomerular filtration rate (GFR) less than or equal to 15 mL/min/1.73 square meter and albuminuria creatinine ratio less than 30 mg/g Cough Shortness of breath Cerebellar infarct Speech apraxia Asthma Glaucoma Obesity (BMI 30.0-34.9) Hyperlipidemia Home Medications ?Medication ?Instructions ?Recorded ?Last Taken ?Type timolol maleate 0.5 % eye drops 1 drp EACH EYE BID GLAUCOMA 11/26/15 03/15/23 History levothyroxine 100 mcg tablet 100 mcg PO DAILY HYPOTHYROIDISM 07/31/19 03/15/23 History isosorbide mononitrate 60 mg 60 mg PO SUMOWEFR HTN 10/26/19 03/14/23 History tablet,extended release 24 hr albuterol sulfate 90 mcg/actuation 2 inh inhalation Q4H PRN Shortness 07/17/22 Unknown History aerosol inhaler Of Breath budesonide-formoterol HFA 160 1 inh inhalation QHS SHORTNESS OF 07/17/22 03/14/23 History mcg-4.5 mcg/actuation aerosol BREATH inhaler dextran 70-hypromellose 0.1 %-0.3 1 drp ophthalmic (eye) QHS eye 07/17/22 03/14/23 History % eye drops health albuterol sulfate 2.5 mg/3 mL 2.5 mg continuous nebulization Q4H 12/05/22 Unknown History (0.083 %) solution for nebulization PRN SOB/Wheezing clopidogrel 75 mg tablet 75 mg PO DAILY anti platelet #30 12/06/22 03/15/23 Rx tabs atorvastatin 20 mg tablet 40 mg (2 x 20 mg) PO DAILY 03/16/23 03/14/23 Rx CHOLESTEROL #1 TAB acetaminophen 500 mg capsule 500 mg PO Q6H PRN fever or pain 08/29/23 Unknown History bisacodyl 10 mg rectal suppository 10 mg HI DAILY PRN constipation 08/29/23 Unknown History donepezil 10 mg tablet 10 mg PO QHS DEMENTIA 08/29/23 Unknown History magnesium hydroxide 400 mg/5 mL 5 ml PO DAILY PRN constipation 08/29/23 Unknown History oral suspension (Milk of Magnesia) mineral oil (Fleet Mineral Oil 118 ml HI DAILY PRN constipation 09/12/23 Unknown History enema) memantine 5 mg tablet 5 mg PO BID DEMENTIA 03/12/24 Unknown History sevelamer carbonate 800 mg tablet 800 mg PO TID kidney disease 07/03/24 Unknown History vitamin B complex-vitamin C-folic 1 tab PO DAILY CKD 07/03/24 Unknown History acid 0.8 mg tablet (Nephro-Jean Paul) food supplemt, lactose-reduced 120 ml PO 4X/DAY #0 mL 07/05/24 Unknown Rx 0.08 gram-1.5 kcal/mL oral liquid (Ensure Plus High Protein) bimatoprost 0.03 % eye drops 1 drp ophthalmic (eye) DAILY 04/23/25 Unknown History brinzolamide 1 %-brimonidine 0.2 % 1 drp LEFT EYE BID EYE PRESSURE 04/23/25 Unknown History eye drops,suspension (Simbrinza) guaifenesin 600 mg tablet, 600 mg PO BID PRN congestion 04/23/25 Unknown History extended release 12 hr (Mucinex) loperamide 2 mg tablet 2 mg PO Q8H PRN loose stool 04/23/25 Unknown History (Anti-Diarrheal (loperamide)) nifedipine 30 mg tablet,extended 30 mg PO QHS CKD AND HYPERTENSIVE 04/23/25 Unknown History release 24 hr HEART DISEASE prednisolone acetate 1 % eye 1 drp ophthalmic (eye) Q12H HERPES 04/23/25 Unknown History drops,suspension ZOSTER sennosides 8.6 mg tablet 8.6 mg PO DAILY 04/23/25 Unknown History (Black-Draught Lax-Senna) Allergy/AdvReac Type Severity Reaction Status Date / Time erythromycin base Allergy Rash Verified 04/23/25 00:11 lisinopril Allergy Unknown Verified 04/23/25 00:11 NSAIDS (Non-Steroidal Allergy Other Verified 04/23/25 00:11 Anti-Inflamma Salicylates Allergy Other Verified 04/23/25 00:11 Family History Mother Colon cancer Hypertension Father Hypertension Surgical History History of loop recorder (07/20/19) s/p left AV fistula creation (02/19/19) Hx of foot surgery Hx of thyroidectomy Hx of cataract extraction Hx of hysterectomy Social History Smoking Status: Never smoker alcohol intake: never substance use type: does not use caffeine: Yes what type of physical activity do you participate in: none frequency: does not exercise ROS ROS Narrative denied complaints Review of Systems ROS Unobtainable: due to mental condition Physical Exam Const Constitutional Narrative: dementia Orientation / Consciousness: confused Lab / Micro Data 04/23/25 06:15 04/23/25 06:15 Labs: Laboratory Results - last 24 hr 04/23/25 00:32: WBC 10.6, RBC 4.10 L, Hgb 11.0 L, Hct 35.3 L, MCV 86.1, MCH 26.8 L, MCHC 31.2 L, RDW Std Deviation 51.4 H, RDW Coeff of Lizett 16.7 H, Plt Count 169, MPV 12.8 H, Immature Gran % (Auto) 0.500, Neut % (Auto) 73.1 H, Lymph % (Auto) 16.9 L, Rush % (Auto) 8.8, Eos % (Auto) 0.1, Baso % (Auto) 0.6, Absolute Neuts (auto) 7.8 H, Absolute Lymphs (auto) 1.80, Nucleated RBC % 0.2, Sodium 139, Potassium 3.6, Chloride 95 L, Carbon Dioxide 24.9, Anion Gap 19 H, BUN 44 H, Creatinine 8.99 H*, Estim Creat Clear Calc 3.51 L*, Est GFR (MDRD) Non-Af 4 L, BUN/Creatinine Ratio 4.9 L, Glucose 105 H, Calcium 8.6, Phosphorus 4.7 H, Magnesium 2.4 H, Total Bilirubin 0.38, Direct Bilirubin 0.17, AST 19, ALT 5, Alkaline Phosphatase 119 H, Total Protein 6.3, Albumin 3.4, Globulin 2.9, Lipase 21 04/23/25 06:15: WBC 10.0, RBC 4.00 L, Hgb 10.9 L, Hct 34.3 L, MCV 85.8, MCH 27.3, MCHC 31.8 L, RDW Std Deviation 50.6 H, RDW Coeff of Lizett 16.4 H, Plt Count 169, MPV 11.7, Immature Gran % (Auto) 0.500, Neut % (Auto) 74.7 H, Lymph % (Auto) 14.2 L, Rush % (Auto) 9.9, Eos % (Auto) 0.2, Baso % (Auto) 0.5, Absolute Neuts (auto) 7.5, Absolute Lymphs (auto) 1.42, Nucleated RBC % 0, Sodium 138, Potassium 3.5, Chloride 97 L, Carbon Dioxide 24.9, Anion Gap 16 H, BUN 45 H, Creatinine 9.06 H*, Estim Creat Clear Calc 3.29 L*, Est GFR (MDRD) Non-Af 4 L, BUN/Creatinine Ratio 5.0 L, Glucose 94, Calcium 8.0 Micro: Microbiology 04/23/25 01:02 Mucosa - Nose SARS-CoV-2, Influenza & RSV (PCR) - Final Imaging Radiology Impression Abdomen/Pelvis CT 04/23/25 00:53 IMPRESSION: Ileocolonic intussusception is noted. Secondary high-grade mechanical small-bowel obstruction. Further evaluation is suggested to exclude underlying neoplastic pathology. No evidence of perforation or pneumatosis intestinalis. Prior hysterectomy. Bilateral basilar atelectatic pulmonary changes. Unchanged 2.6 cm nodule in the right lower lobe. Mild cardiomegaly, unchanged. Mild central pulmonary venous congestion. Scattered simple hepatic cysts are noted with the largest measuring 1.2 cm. Diffuse colonic diverticulosis. Unchanged chronic renal atrophy. Unchanged bilateral complex renal solid/cystic lesions, many of them contain calcifications with the largest on the right measuring 4.4 cm. Mild ascites is noted. Mild osteopenia. Moderate diffuse spondylosis. Grade 1 anterolisthesis of L4 on L5. Secondary moderate chronic concentric spinal canal stenosis. [facility] 04/23/25 05:55 IMPRESSION: Stable appearing distended bowel lobes in keeping with earlier noted small-bowel obstruction. Reading [facility]
[2025-04-23] MEDS: Timolol 0.5% 5ML OPTH.BTL 1 DRP EACH EYE ×2 (10:47→22:24)
--- NOTE | 2025-04-23 11:18 | CASEMGMT ---
Social Work SW called pt's daughter, [place] Salvador, confirmed plan will be for pt to return to [facility] when ready. Updates will be sent when appropriate. SHERYL will continue to follow. AMANDA Reddy
--- NOTE | 2025-04-23 11:27 | EKG12_ITS ---
Test Reason : pre op Blood Pressure : */* mmHG Vent. Rate : 83 BPM Atrial Rate : 83 BPM P-R Int : 140 ms QRS Dur : 118 ms QT Int : 402 ms P-R-T Axes : 26 -59 66 degrees QTcB Int : 472 ms Sinus rhythm with occasional Premature ventricular complexes Left axis deviation Right bundle branch block Possible Lateral infarct , age undetermined Inferior infarct , age undetermined Abnormal ECG When compared with ECG of 05-Dec-2022 13:33, Significant changes have occurred Reconfirmed by Enoc Mahajan ([id number]), business editor BERNA ROUSSEAU ([id number]) on 05/01/2025 9:49:26 AM Referred By: Nell Confirmed By: Enoc Mahajan
--- NOTE | 2025-04-23 11:51 | CASEMGMT ---
Addendum entered by Nina Trejo 04/23/25 13:36: Pt is a bedhold and does not require a precert to return. Original Note: Discharge Planning Updates sent via [facility] to [facility] with note asking if pt will need precert to return. Nina Trejo DC Planning Asst.
--- NOTE | 2025-04-23 12:23 | CON.PCM.SX_ITS ---
Assessment & Plan Assessment/Plan (1) Intussusception: PLAN: Plan The patient is an 89-year-old female with multiple medical problems including end-stage renal disease, history of stroke/aphasia, dementia. She presents with constipation and now diarrhea. CT scan through the ER revealed what appears to be an intussusception. She is tender in this area. I had a lengthy discussion with the patient's daughter and we discussed goals of care/treatment. I did offer the option of surgery. I do feel that if this truly is an intussusception possibly due to a mass, this will not likely resolve spontaneously. We discussed patient's wishes in terms of surgery and the fact that surgery in this patient could be at higher risk. We also explored the option of nonsurgical management/palliative care. I contacted the patient's daughter later and she states that after talking to her family, they would like to proceed with surgery and understand the risks. Surgery will occur this afternoon. HPI Consult Data Date of Consult: 04/23/25 HPI Narrative Reason for Consultation: Ileocolonic intussusception HPI Narrative: LOUISE ZAVALA, is a 89 F who was brought to the [facility] emergency department overnight with complaints of first constipation and then later diarrhea with some blood. Patient has multiple medical problems including dementia and end-stage renal disease on dialysis. According to her daughter, she has not been eating as she previously had for the past couple weeks. Towards the end of last week she was having some initial constipation. She was then given stool softeners which then led to profuse watery stools. She was then placed on Imodium. She apparently had some very copious stools yesterday with some blood noticed within the bowel movements. This prompted a visit to the emergency room. CT scan was performed and showed what appeared to be an ilio colonic intussusception with an associated small bowel obstruction. She was subsequently admitted. Clinically she remained stable. She has aphasia from a previous stroke for which she is on Plavix. As a result she is not a good historian and most of the history has to come from family. She was subsidy admitted and a surgical consult was obtained. She denied any significant issues. She did have tenderness in the right upper quadrant with palpation [facility] Medical History (Updated 04/23/25 @ 03:[address] Darnell Randolph DO) End stage renal disease Vascular dementia, unspecified severity, with other behavioral disturbance Dependence on renal dialysis Dysarthria following cerebral infarction Peripheral vascular disease, unspecified Dysarthria and anarthria Neuromuscular dysfunction of bladder, unspecified Hypothyroidism, unspecified Transient cerebral ischemic attack, unspecified Aphasia following cerebral infarction Frontal lobe and executive function deficit following cerebral infarction Chronic obstructive pulmonary disease, unspecified Hypertensive heart and chronic kidney disease without heart failure, with stage 5 chronic kidney disease, or end stage renal disease Hemiplegia, unspecified affecting left nondominant side Memory deficit following cerebral infarction halfway resident AV fistula halfway resident ESRD on hemodialysis TIA (transient ischemic attack) Anemia Hypertension ESRD (end stage renal disease) on dialysis Problem with dialysis access Chronic diastolic (congestive) heart failure End-stage renal disease (ESRD) History of CVA (cerebrovascular accident) (12/15/19) Essential hypertension Problem with dialysis access Respiratory failure with hypoxia Iron deficiency anemia RENAL FAILURE STAGE 6 Chronic renal failure, stage 5 Dementia Elevated troponin I level Metabolic acidosis Acute respiratory failure with hypoxia Anemia Iron deficiency anemia Chronic kidney disease (CKD) stage G5/A1, glomerular filtration rate (GFR) less than or equal to 15 mL/min/1.73 square meter and albuminuria creatinine ratio less than 30 mg/g Cough Shortness of breath Cerebellar infarct Speech apraxia Asthma Glaucoma Obesity (BMI 30.0-34.9) Hyperlipidemia Home Medications ?Medication ?Instructions ?Recorded ?Last Taken ?Type timolol maleate 0.5 % eye drops 1 drp EACH EYE BID GLA UCOMA 11/26/15 03/15/23 History levothyroxine 100 mcg tablet 100 mcg PO DAILY HYPOTHYR OIDISM 07/31/19 03/15/23 History isosorbide mononitrate 60 mg 60 mg PO SUMOWEFR HTN 10/0903/14/23 History tablet,extended release 24 hr albuterol sulfate 90 mcg/actuation 2 inh inhalation Q4 H PRN Shortness 07/17/22 Unknown History aerosol inhaler Of Breath budesonide-formoterol HFA 160 1 inh inhalation QHS RAYSHAWN RTNESS OF 07/17/22 03/14/23 History mcg-4.5 mcg/actuation aerosol BREATH inhaler dextran 70-hypromellose 0.1 %-0.3 1 drp ophthalmic (ey e) QHS eye 07/17/22 03/14/23 History % eye drops health albuterol sulfate 2.5 mg/3 mL 2.5 mg continuous nebuli zation Q4H 12/05/22 Unknown History (0.083 %) solution for nebulization PRN SOB/Wheezing clopidogrel 75 mg tablet 75 mg PO DAILY anti platelet #30 12/06/22 03/15/23 Rx tabs atorvastatin 20 mg tablet 40 mg (2 x 20 mg) PO DAILY 1 03/14/23 Rx CHOLESTEROL #1 TAB acetaminophen 500 mg capsule 500 mg PO Q6H PRN fever o r pain 08/29/23 Unknown History bisacodyl 10 mg rectal suppository 10 mg NM DAILY PRN constipation 08/29/23 Unknown History donepezil 10 mg tablet 10 mg PO QHS DEMENTIA Unknown History magnesium hydroxide 400 mg/5 mL 5 ml PO DAILY PRN cons tipation 08/29/23 Unknown History oral suspension (Milk of Magnesia) mineral oil (Fleet Mineral Oil 118 ml NM DAILY PRN con stipation 09/12/23 Unknown History enema) memantine 5 mg tablet 5 mg PO BID DEMENTIA 4 Unknown History sevelamer carbonate 800 mg tablet 800 mg PO TID kidney disease 07/03/24 Unknown History vitamin B complex-vitamin C-folic 1 tab PO DAILY CKD 0 07/03/24 Unknown History acid 0.8 mg tablet (Nephro-Jean Paul) food supplemt, lactose-reduced 120 ml PO 4X/DAY #0 mL 07/05/24 Unknown Rx 0.08 gram-1.5 kcal/mL oral liquid (Ensure Plus High Protein) bimatoprost 0.03 % eye drops 1 drp ophthalmic (eye) DA SONJA 04/23/25 Unknown History brinzolamide 1 %-brimonidine 0.2 % 1 drp LEFT EYE BID EYE PRESSURE 04/23/25 Unknown History eye drops,suspension (Simbrinza) guaifenesin 600 mg tablet, 600 mg PO BID PRN congestio n 04/23/25 Unknown History extended release 12 hr (Mucinex) loperamide 2 mg tablet 2 mg PO Q8H PRN loose stool 04/23/25 Unknown History (Anti-Diarrheal (loperamide)) nifedipine 30 mg tablet,extended 30 mg PO QHS CKD AND HYPERTENSIVE 04/23/25 Unknown History release 24 hr HEART DISEASE prednisolone acetate 1 % eye 1 drp ophthalmic (eye) Q1 2H HERPES 04/23/25 Unknown History drops,suspension ZOSTER sennosides 8.6 mg tablet 8.6 mg PO DAILY 04/23/25 Unk nown History (Black-Draught Lax-Senna) Allergy/AdvReac Type Severity Reaction Status Date / Time erythromycin base Allergy Rash Verified 04/23/25 00:11 lisinopril Allergy Unknown Verified 04/23/25 00:11 NSAIDS (Non-Steroidal Allergy Other Verified 04/23/25 00:11 Anti-Inflamma Salicylates Allergy Other Verified 04/23/25 00:11 Family History Mother Colon cancer Hypertension Father Hypertension Surgical History History of loop recorder (07/20/19) s/p left AV fistula creation (02/19/19) Hx of foot surgery Hx of thyroidectomy Hx of cataract extraction Hx of hysterectomy Social History Smoking Status: Never smoker alcohol intake: never substance use type: does not use caffeine: Yes what type of physical activity do you participate in: none frequency: does not exercise Physical Exam Narrative She is awake and alert. She has nonverbal. She does not appear to be in any acute distress Abdomen is soft and slightly distended. She does have tenderness in the right upper quadrant which is in the region of where the presumed intussusception was located. No rebound or guarding or other peritoneal signs. Lab / Micro Data 04/23/25 06:15 04/23/25 06:15 Labs: Laboratory Results - last 24 hr 04/23/25 00:32: WBC 10.6, RBC 4.10 L, Hgb 11.0 L, Hct 35.3 L, MCV 86.1, MCH 26.8 L, MCHC 31.2 L, RDW Std Deviation 51.4 H, RDW Coeff of Lizett 16.7 H, Plt Count 169, MPV 12.8 H, Immature Gran % (Auto) 0.500, Neut % (Auto) 73.1 H, Lymph % (Auto) 16.9 L, Luna % (Auto) 8.8, Eos % (Auto) 0.1, Baso % (Auto) 0.6, Absolute Neuts (auto) 7.8 H, Absolute Lymphs (auto) 1.80, Nucleated RBC % 0.2, Sodium 139, Potassium 3.6, Chloride 95 L, Carbon Dioxide 24.9, Anion Gap 19 H, BUN 44 H , Creatinine 8.99 H*, Estim Creat Clear Calc 3.51 L*, Est GFR (MDRD) Non-Af 4 L, BUN/Creatinine Ratio 4.9 L, Glucose 105 H, Calcium 8.6, Phosphorus 4.7 H, M agnesium 2.4 H, Total Bilirubin 0.38, Direct Bilirubin 0.17, AST 19, ALT 5, A lkaline Phosphatase 119 H, Total Protein 6.3, Albumin 3.4, Globulin 2.9, Lipase 21 04/23/25 06:15: WBC 10.0, RBC 4.00 L, Hgb 10.9 L, Hct 34.3 L, MCV 85.8, MCH 27.3, MCHC 31.8 L, RDW Std Deviation 50.6 H, RDW Coeff of Lizett 16.4 H, Plt Count 169, MPV 11.7, Immature Gran % (Auto) 0.500, Neut % (Auto) 74.7 H, Lymph % (Auto) 14.2 L, Luna % (Auto) 9.9, Eos % (Auto) 0.2, Baso % (Auto) 0.5, Absolute Neuts (auto) 7.5, Absolute Lymphs (auto) 1.42, Nucleated RBC % 0, Sodium 138, Potassium 3.5, Chloride 97 L, Carbon Dioxide 24.9, Anion Gap 16 H, BUN 45 H, C reatinine 9.06 H*, Estim Creat Clear Calc 3.29 L*, Est GFR (MDRD) Non-Af 4 L, B UN/Creatinine Ratio 5.0 L, Glucose 94, Calcium 8.0 Micro: Microbiology 04/23/25 01:02 Mucosa - Nose SARS-CoV-2, Influenza & RSV (PCR) - Final Imaging Radiology Impression Abdomen/Pelvis CT 04/23/25 00:53 IMPRESSION: Ileocolonic intussusception is noted. Secondary high-grade mechanical small-bowel obstruction. Further evaluation is suggested to exclude underlying neoplastic pathology. No evidence of perforation or pneumatosis intestinalis. Prior hysterectomy. Bilateral basilar atelectatic pulmonary changes. Unchanged 2.6 cm nodule in the right lower lobe. Mild cardiomegaly, unchanged. Mild central pulmonary venous congestion. Scattered simple hepatic cysts are noted with the largest measuring 1.2 cm. Diffuse colonic diverticulosis. Unchanged chronic renal atrophy. Unchanged bilateral complex renal solid/cystic lesions, many of them contain calcifications with the largest on the right measuring 4.4 cm. Mild ascites is noted. Mild osteopenia. Moderate diffuse spondylosis. Grade 1 anterolisthesis of L4 on L5. Secondary moderate chronic concentric spinal canal stenosis. Reading Location: [id number] X-Ray 04/23/25 05:55 IMPRESSION: Stable appearing distended bowel lobes in keeping with earlier noted small-bowel obstruction. Reading Location: [id number] Charges/Coding Visit Charges Inpatient E&M: 96128 Init Hosp L3
--- NOTE | 2025-04-23 12:53 | PRE.ANES_ITS ---
ASA Classification* ASA Classification ASA Classification: 4 and E Assessment & Plan Anesthesia* Anesthesia Assessment Anesthesia Assessment: Discussed sedation and/or anesthesia options, risks, benefits, and alternatives with patient/parents/legal guardian/POA. Questions invited. The patient/parents/legal guardian/POA seems to understand and agrees to proceed with anesthesia plan. Reviewed the physical assessment, medical history, allergy history and patient home medications list prior to surgery/procedure/anesthetic and documented any changes. Performed airway and anesthesia risk assessments. Anesthesia Type Anesthesia Type: General History Source History Obtained from:: Patient and Chart Anesthesia Focused Assessment* Temperature: 98.2 F Pulse Rate: 86 Blood Pressure: 141/62 Respiratory Rate: 12 Pulse Ox: 99 Oxygen Delivery Method: Room Air Airway Assessment Mouth opens: >3 cm Mallampati Score: IV Teeth Condition: Intact Neck Range of motion (ROM): Limited ROM (Somewhat Decreased) Labs Anesthesia Preop lab: CBC WBC, (4.4-11.0) 10.0 K/mm3 Today, 06:15 RBC, (4.2-5.4) 4.00 M/mm3 L Today, 06:15 Hgb, (12.0-15.0) 10.9 g/dL L Today, 06:15 Hct, (37-47) 34.3 % L Today, 06:15 Plt Count, (150-450) 169 K/mm3 Today, 06:15 CHEMISTRY Potassium, (3.3-5.1) 3.5 mmol/L Today, 06:15 Sodium, (133-145) 138 mmol/L Today, 06:15 Magnesium, (1.5-2.2) 2.4 mg/dL H Today, 00:32 Phosphorus, (2.7-4.5) 4.7 mg/dL H Today, 00:32 BUN, (4-19) 45 mg/dL H Today, 06:15 Creatinine, (0.70-1.20) 9.06 mg/dL H* Today, 06:15 Glucose, (70-99) 94 mg/dL Today, 06:15 POC Glucose, (74-106) 85 mg/dL 12/05/22, 12:31 TSH, (0.358-3.74) 2.18 uIU/mL 07/18/22, 05:25 COAG PT, (11.7-14.9) 13.2 SECONDS 03/15/23, 10:36 Pre-Assessment Diagnosis/Proposed Procedure Planned Operative Procedure(s): Diagnostic laparoscopy, possible laparotomy, right colon resection with anastomosis. Anesthesia History Anesthesia History - technician biological health: Anesthesia History - technician biological health Hx Hospitalization No 08/10/23 15:21 Any Problems With Anesthesia No 04/23/25 12:14 Cholinesterase deficiency No 04/23/25 12:14 You/Your Family Experience No 04/23/25 12:14 fever (hyperthermia) with Relationship Recent Exposure to Contagious No 04/23/25 12:14 Disease Does patient have nerve No 04/23/25 12:14 stimulator Patient instructed to have No 04/23/25 12:14 device shut off --Does patient have Pacemaker or ICD? When Was Last Pacemaker Check QUESTION #4 FULL TEXT: You/Your Family Experience fever (hyperthermia) with Anesthesia Last Oral Intake Last Oral intake: Last Oral Intake NPO since 03:20 04/23/25 12:15 Meds taken in AM with sips of water? Meds patient instructed to take am of surgery PONV PONV - technician biological health: PONV - technician biological health Female HX of Motion Sickness HX of N/V After Surgery Non-Smoker Duration of Surgery greater than 60 minutes Number of Risk Factors PONV Score Height & Weight Height & Weight: Anesthesia: Height & Weight Height 5 ft 3 in 04/23/25 12:15 Weight: 49.5 kg 04/23/25 11:45 Body Mass Index (BMI) 19.3 04/23/25 11:45 Respiratory Assessment Respiratory Assessment - technician biological health: Respiratory Tract Infection Hx - technician biological health Hx Respiratory Tract Infection No 04/23/25 12:14 STOP Sleep Apnea STOP Sleep Apnea - technician biological health: STOP Sleep Apnea - technician biological health Hx Hypertension Yes 04/23/25 10:22 Hx Sleep Apnea No 04/23/25 03:55 CPAP No 04/23/25 03:55 BIPAP No 04/23/25 03:55 Do you snore loudly (louder No 04/23/25 03:55 than talking or can be heard Do you often feel tired/ No 04/23/25 03:55 fatigued/ sleepy during daytime? Has anyone observed you stop No 04/23/25 03:55 breathing during sleep? STOP Results Negative 04/23/25 03:55 QUESTION #5 FULL TEXT : Do you snore loudly (louder than talking or can be heard through closed doors)? 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 Specify any problems Hx of Preganancy in last 3 No 04/23/25 03:55 Months Nurse Filling Out Transfusion TMELLOR 04/23/25 03:55 & Questions: Date: 04/23/25 04/23/25 03:55 Time: 03:57 04/23/25 03:55 Patient unable to answer at this time (ie. confused, unrespo /Reproduction History /Reproductive History - technician biological health: /Reproductive Hx- technician biological health Hx Now No 04/23/25 12:14 Gestational Age (in weeks): EDC: Hx Hx Para Hx Section SAB No 04/23/25 12:14 Does the father of the baby or his family experience fever w Father of the baby Malignant Hypertension history comment Active Medications Active Medications: Current Medications Generic Name Dose Route Start Last Admin Trade Name Freq PRN Reason Stop Dose Admin Albuterol Sulfate 2.5 mg 04/23/25 04:30 04/23/25 06:56 Albuterol 2.5 Mg/3 Ml Vial.Neb. INHALATION 2.5 mg Q6HWA.RT SHONNA Administration Budesonide 0.5 mg 04/23/25 04:30 04/23/25 06:56 Budesonide Respules 0.5 Mg/2 Ml Ampul.Neb. INHALATION 0.5 mg Q12H.RT SHONNA Administration Clarify Med Order 1 each 04/23/25 15:00 Clarify Order NOTE CLARIFY SHONNA Glycerin/Hypromellose/Polyethylene 1 drp 04/23/25 22:00 Glycerin/Hypromellose/[id number] 15 Ml Bottle EACH EYE QHS SHONNA Hemodialysis Solution 6 bag 04/23/25 08:00 04/23/25 09:17 Pureflow B 3k Dialysis Soln 1 Bag PF 04/23/25 19:53 5 bag UD SHONNA Administration Protocol Sodium Chloride 250 mls @ 15 mls/hr 04/23/25 03:55 IV .[id number] PRN Saline Flush Ciprofloxacin 400 mg in 200 mls @ 200 mls/hr 04/23/25 12:01 Cipro IV 04/23/25 13:00 PREOP ONE Metronidazole 500 mg in 100 mls @ 100 mls/hr 04/23/25 12:01 Flagyl IV 04/23/25 13:00 INTRAOP ONE Sodium Chloride 500 mls @ 0 mls/hr 04/23/25 12:30 IV .Q0M SHONNA KVO Non-Formulary Medication 1 drp 04/23/25 10:00 Bimatoprost OPHTHALMIC DAILY SHONNA Sodium Chloride 10 - 40 ml 04/23/25 03:55 04/23/25 04:49 0.9% Saline Lock 10 Ml Syringe IV 10 ml UD PRN Administration SALINE FLUSH Sodium Chloride 1,000 ml 04/23/25 07:55 04/23/25 09:17 0.9% Normal Saline 1,000 Ml Iv.Soln. OPERA.SITE 04/23/25 19:52 1,000 ml X1 SHONNA Administration Sodium Chloride 200 ml 04/23/25 07:52 0.9% Normal Saline 1,000 Ml Iv.Soln. IV 04/23/25 19:52 X1 PRN to maintain SBP >90mmHg during Dialysis Timolol Maleate 1 drp 04/23/25 10:00 04/23/25 10:47 Timolol 0.5% 5ml Opth.Btl EACH EYE 1 drp BID SHONNA Administration PFSH Medical History End stage renal disease Vascular dementia, unspecified severity, with other behavioral disturbance Dependence on renal dialysis Dysarthria following cerebral infarction Peripheral vascular disease, unspecified Dysarthria and anarthria Neuromuscular dysfunction of bladder, unspecified Hypothyroidism, unspecified Transient cerebral ischemic attack, unspecified Aphasia following cerebral infarction Frontal lobe and executive function deficit following cerebral infarction Chronic obstructive pulmonary disease, unspecified Hypertensive heart and chronic kidney disease without heart failure, with stage 5 chronic kidney disease, or end stage renal disease Hemiplegia, unspecified affecting left nondominant side Memory deficit following cerebral infarction jail resident AV fistula jail resident ESRD on hemodialysis TIA (transient ischemic attack) Anemia Hypertension ESRD (end stage renal disease) on dialysis Problem with dialysis access Chronic diastolic (congestive) heart failure End-stage renal disease (ESRD) History of CVA (cerebrovascular accident) (12/15/19) Essential hypertension Problem with dialysis access Respiratory failure with hypoxia Iron deficiency anemia RENAL FAILURE STAGE 6 Chronic renal failure, stage 5 Dementia Elevated troponin I level Metabolic acidosis Acute respiratory failure with hypoxia Anemia Iron deficiency anemia Chronic kidney disease (CKD) stage G5/A1, glomerular filtration rate (GFR) less than or equal to 15 mL/min/1.73 square meter and albuminuria creatinine ratio less than 30 mg/g Cough Shortness of breath Cerebellar infarct Speech apraxia Asthma Glaucoma Obesity (BMI 30.0-34.9) Hyperlipidemia Home Medications ?Medication ?Instructions ?Recorded ?Last Taken ?Type timolol maleate 0.5 % eye drops 1 drp EACH EYE BID GLA UCOMA 11/26/15 03/15/23 History levothyroxine 100 mcg tablet 100 mcg PO DAILY HYPOTHYR OIDISM 07/31/19 03/15/23 History isosorbide mononitrate 60 mg 60 mg PO SUMOWEFR HTN 10/0903/14/23 History tablet,extended release 24 hr albuterol sulfate 90 mcg/actuation 2 inh inhalation Q4 H PRN Shortness 07/17/22 Unknown History aerosol inhaler Of Breath budesonide-formoterol HFA 160 1 inh inhalation QHS RAYSHAWN RTNESS OF 07/17/22 History mcg-4.5 mcg/actuation aerosol BREATH inhaler dextran 70-hypromellose 0.1 %-0.3 1 drp ophthalmic (ey e) QHS eye 07/17/22 03/14/23 History % eye drops health albuterol sulfate 2.5 mg/3 mL 2.5 mg continuous nebuli zation Q4H 12/05/22 Unknown History (0.083 %) solution for nebulization PRN SOB/Wheezing clopidogrel 75 mg tablet 75 mg PO DAILY anti platelet #30 12/06/22 03/15/23 Rx tabs atorvastatin 20 mg tablet 40 mg (2 x 20 mg) PO DAILY 1 03/14/23 Rx CHOLESTEROL #1 TAB acetaminophen 500 mg capsule 500 mg PO Q6H PRN fever o r pain 08/29/23 Unknown History bisacodyl 10 mg rectal suppository 10 mg MT DAILY PRN constipation 08/29/23 Unknown History donepezil 10 mg tablet 10 mg PO QHS DEMENTIA Unknown History magnesium hydroxide 400 mg/5 mL 5 ml PO DAILY PRN cons tipation 08/29/23 Unknown History oral suspension (Milk of Magnesia) mineral oil (Fleet Mineral Oil 118 ml MT DAILY PRN con stipation 09/12/23 Unknown History enema) memantine 5 mg tablet 5 mg PO BID DEMENTIA 4 Unknown History sevelamer carbonate 800 mg tablet 800 mg PO TID kidney disease 07/03/24 Unknown History vitamin B complex-vitamin C-folic 1 tab PO DAILY CKD 0 07/03/24 Unknown History acid 0.8 mg tablet (Nephro-Jean Paul) food supplemt, lactose-reduced 120 ml PO 4X/DAY #0 mL 07/05/24 Unknown Rx 0.08 gram-1.5 kcal/mL oral liquid (Ensure Plus High Protein) bimatoprost 0.03 % eye drops 1 drp ophthalmic (eye) DA SONJA 04/23/25 Unknown History brinzolamide 1 %-brimonidine 0.2 % 1 drp LEFT EYE BID EYE PRESSURE 04/23/25 Unknown History eye drops,suspension (Simbrinza) guaifenesin 600 mg tablet, 600 mg PO BID PRN congestio n 04/23/25 Unknown History extended release 12 hr (Mucinex) loperamide 2 mg tablet 2 mg PO Q8H PRN loose stool 04/23/25 Unknown History (Anti-Diarrheal (loperamide)) nifedipine 30 mg tablet,extended 30 mg PO QHS CKD AND HYPERTENSIVE 04/23/25 Unknown History release 24 hr HEART DISEASE prednisolone acetate 1 % eye 1 drp ophthalmic (eye) Q1 2H HERPES 04/23/25 Unknown History drops,suspension ZOSTER sennosides 8.6 mg tablet 8.6 mg PO DAILY 04/23/25 Unk nown History (Black-Draught Lax-Senna) Allergy/AdvReac Type Severity Reaction Status Date / Time erythromycin base Allergy Rash Verified 04/23/25 00:11 lisinopril Allergy Unknown Verified 04/23/25 00:11 NSAIDS (Non-Steroidal Allergy Other Verified 04/23/25 00:11 Anti-Inflamma Salicylates Allergy Other Verified 04/23/25 00:11 Family History Mother Colon cancer Hypertension Father Hypertension Surgical History History of loop recorder (07/20/19) s/p left AV fistula creation (02/19/19) Hx of foot surgery Hx of thyroidectomy Hx of cataract extraction Hx of hysterectomy Social History Smoking Status: Never smoker alcohol intake: never substance use type: does not use caffeine: Yes what type of physical activity do you participate in: none frequency: does not exercise Review of Systems (Anesthesia) ROS Narrative System reviewed and no additional complaints, except as documented.
[2025-04-23] MEDS: 0.9% Normal Saline (500mL Bag) 500 ML 15 ML IV (12:56)
[2025-04-23] MEDS: metroNIDAZOLE 500 MG/100 ML BAG 100 MG IV (12:56)
--- NOTE | 2025-04-23 13:00 | COL_PTH ---
PATIENT: LOUISE ZAVALA LOC: MS3 U#:[id number] AGE/SX: 89/F ROOM: [facility] [place] RE04/23/[address]: Dr. Micha Feliciano MD : 1935 BED: 1 DIS: 04/30/2025 SPEC #: [id number] RECD: 04/23/25 18:02 STATUS: LEXII PATRICIA #: [id number] LIZZETH: 04/23/25 13:[address]: Nick Way DEPT: SURGICAL PATHOLOGY RECD BY: Max Doherty ENTERED: 04/24/25 10:30 SP TYPE: COLON OTHR DR: DO Dr. Genny Jeffries MD Dr. Paul Nielsen, MD Tissues: A - Colon, NOS Procedures: Surgery Specimen Level V HEADER OPERATION: Diagnostic laparoscopy converted to laparotomy PRE-OP DIAGNOSIS: Intussusception, small bowel obstruction TISSUE SUBMITTED: A- Right colon MICROSCOPIC DIAGNOSIS A. Terminal ileum, ileocecal valve, cecum, cecal appendix, and ascending colon, right hemicolectomy: - Mucinous adenocarcinoma, moderately differentiated, of the ascending colon (See COMMENT for Cancer Case Summary) COMMENT Surgical Pathology Cancer Case Summary Procedure Right hemicolectomy Tumor Site (select all that apply) Ascending colon Tumor Size Greatest dimension (centimeters): 3.4 cm + Additional dimensions (centimeters): 2.8 x 2.2 cm Macroscopic Tumor Perforation Not identified Histologic Type Mucinous adenocarcinoma Histologic Grade G2: Moderately differentiated Tumor Extension Tumor invades muscularis propria Margins Note: Use this section only if all margins are uninvolved and all margins can be assessed. All margins are uninvolved by invasive carcinoma, high grade dysplasia / intramucosal carcinoma, and low grade dysplasia Margins examined: radial (circumferential), distal, and proximal Note: Margins may include proximal, distal, radial (circumferential) or mesenteric, deep, mucosal, and others. + Distance of invasive carcinoma from closest margin (millimeters or centimeters): 3.5 cm + Specify closest margin: radial + Distance of tumor from distal margin: 6.8 cm + Distance of tumor from proximal margin: 17.6 cm Individual margin reporting required if any margins are involved or margin involvement cannot be assessed Treatment Effect No known presurgical therapy Lymphovascular Invasion Not identified Perineural Invasion Not identified + Type of Polyp in Which Invasive Carcinoma Arose None identified Tumor Deposits Not identified Regional Lymph Nodes Lymph Node Examination (required only if lymph nodes present in specimen) Number of Lymph Nodes Involved: 0 Number of Lymph Nodes Examined: 5 Pathologic Stage Classification (pTNM, AJCC 8th Edition): pT2 pN0 Note: Reporting of pT, pN, and (when applicable) pM categories is based on information available to the pathologist at the time the report is issued. Only the applicable T, N, or M category is required for reporting; their definitions need not be included in the report. The categories (with modifiers when applicable) can be listed on 1 line or more than 1 line. Assignment of Pathologic Prognostic Stage Group is the responsibility of the managing physician and not the pathologist. TNM Descriptors (required only if applicable) (select all that apply) m (multiple primary tumors) r (recurrent) y (posttreatment) Primary Tumor (pT) pTX: Primary tumor cannot be assessed pT0: No evidence of primary tumor pTis: Carcinoma in situ, intramucosal carcinoma (involvement of lamina propria with no extension through muscularis mucosae) pT1: Tumor invades the submucosa (through the muscularis mucosa but not into the muscularis propria) pT2: Tumor invades the muscularis propria pT3: Tumor invades through the muscularis propria into pericolorectal tissues pT4: Tumor invades# the visceral peritoneum or invades or adheres## to adjacent organ or structure pT4a: Tumor invades# through the visceral peritoneum (including gross perforation of the bowel through tumor and continuous invasion of tumor through areas of inflammation to the surface of the visceral peritoneum) pT4b: Tumor directly invades# or adheres## to adjacent organs or structures # Direct invasion in T4 includes invasion of other organs or other segments of the colorectum as a result of direct extension through the serosa, as confirmed on microscopic examination (for example, invasion of the sigmoid colon by a carcinoma of the cecum) or, for cancers in a retroperitoneal or subperitoneal location, direct invasion of other organs or structures by virtue of extension beyond the muscularis propria (i.e., respectively, a tumor on the posterior wall of the descending colon invading the left kidney or lateral abdominal wall; or a mid or distal rectal cancer with invasion of prostate, seminal vesicles, cervix, or vagina). ## Tumor that is adherent to other organs or structures, grossly, is classified cT4b. However, if no tumor is present in the adhesion, microscopically, the classification should be pT1-4a depending on the anatomical depth of wall invasion. The V and L classifications should be used to identify the presence or absence of vascular or lymphatic invasion whereas the PN prognostic factor should be used for perineural invasion. Regional Lymph Nodes (pN) pNX: Regional lymph nodes cannot be assessed pN0: No regional lymph node metastasis pN1: One to three regional lymph nodes are positive (tumor in lymph nodes measuring =0.2 mm), or any number of tumor deposits are present and all identifiable lymph nodes are negative pN1a: One regional lymph node is positive pN1b: Two or three regional lymph nodes are positive pN1c: No regional lymph nodes are positive, but there are tumor deposits in the subserosa, mesentery, or nonperitonealized pericolic, or perirectal/mesorectal tissues. pN2: Four or more regional lymph nodes are positive pN2a: Four to six regional lymph nodes are positive pN2b: Seven or more regional lymph nodes are positive Distant Metastasis (pM) (required only if confirmed pathologically in this case) pM1: Metastasis to one or more distant sites or organs or peritoneal metastasis is identified pM1a: Metastasis to one site or organ is identified without peritoneal metastasis pM1b: Metastasis to two or more sites or organs is identified without peritoneal metastasis pM1c: Metastasis to the peritoneal surface is identified alone or with other site or organ metastases + Additional Pathologic Findings (select all that apply) + Tubular adenomata: cecum, ascending colon + Sessile serrated adenomata: cecum, ascending colon +Tubulovillous adenoma: ascending colon + Fibrous obliteration of the lumen of the cecal appendix Ancillary Studies (Note M): none Comments: none MICROSCOPIC DESCRIPTION Slides are reviewed. GROSS DESCRIPTION A. Received in formalin labeled with the patient's name and date of . Designated as right colon is a right hemicolectomy comprised of the following: Terminal ileum: [place]-purple, somewhat granular, measuring up to 0.6 cm in length by 2.4 cm in diameter. The stapled margin is inked green. The mucosa is hol[place]-pink and somewhat granular. Cecum: [place]-purple, markedly dilated and air-filled, 12.2 x 9.3 x 8.3 cm. The mucosa is flattened, granular and somewhat nodular with 3 distinct, firm, grossly superficial nodules as follows: Nodule #1: 0.6 x 0.4 x 0.2 cmNodule #2: 0.7 x 0.3 x 0.3 cmNodule #3: 0.2 x 0.2 x <0.1 cm located centrally on the ileocecal valve All nodules are located >3.5 cm from the proximal margin, >12 cm from the distal/radial margins. Appendix: [place]-purple and adhered to the cecum/mesentery, 6.8 x 0.6 cm. Sectioning reveals [place] to yellow cut surfaces devoid of identifiable lesions or luminal contents. Colon: [place]-purple with patchy adhesions, 12.5 cm in length by 3.1-4.4 cm in diameter. The margin is inked orange. The attached mesentery is holbrook-yellow, and somewhat shaggy with loosely adherent blood clot. The presumed radial margin is inked black. The mucosa is approximately flattened and distally edematous with diffuse granularity and multiple lesions as follows: Colon lesion #1: 0.4 x 0.3 x 0.2 cm holbrook-white, firm and grossly superficial. Colon lesion #2: 3.1 x 2.4 x 1.5 cm holbrook-pink lobulated and granular mass located 1.8 cm from colon lesion #1. Colon lesion #3: 3.4 x 2.8 x 2.2 cm raised, granular, polypoid mass with focal, apparent necrosis; grossly it appears to focally extend into the underlying wall. Colon lesion #4: 1.0 by 0.8 x 0.6 cm pink-red, granular polyp located 4.5 cm distal to colon lesion #3. All lesions are located >10 cm from the proximal margin, >3.5 cm from the distal margin and = 2.5 cm from the radial margin. Lymph nodes: Few lymph node candidates are identified, 0.6 cm to 1.2 cm. The mesentery is placed in lymph node revealing solution for potential, future lymph node searches. Also received within the container is a 3.5 x 2.8 x 1.0 cm undesignated mucosal donut. Retail Merchandiser sections are submitted as follows: A1: Proximal margin, inked green, shaved, representativeA2: Terminal ileumA3: Cecal nodules #1/#2A4: Cecal nodule #3, [id number]: Cecal mucosa with nodularityA6: Appendix, including bisected tipA7: Colon lesion #1 and #[id number]: Colon lesion #2 (mass)A12-A16: Colon lesion #3 (mass), loan servicing representative, greatest extent of [id number]: Edematous colon mucosa adjacent to colon lesion #3A18: Distal margin, inked orange, shaved, [id number]: Radial margin, inked black, [id number]: Mucosal [id number]: 1 intact lymph node, 1 bisected lymph nodeA22: Bisected lymph nodeA23: 1 intact lymph node, 1 bisected lymph nodeA24: Bisected lymph node candidate SD 04/24/2025 CPT:00629
[2025-04-23] MEDS: 0.9% Normal Saline (1000mL) 300 ML IV (13:30)
[2025-04-23 13:41] LABS: Prothrombin Time (Protime)PT. 15.0 SECONDS (11.7-14.9)
[2025-04-23 13:42] LABS: Partial Thromboplast Time 34.8 Seconds (24.1-36.2)
--- NOTE | 2025-04-23 14:16 | PCM.PROGNOTE ---
Subjective Subjective Patient seen and examined with her nurse by her bedside. She was undergoing dialysis at time of review. She was admitted with complaints of abdominal pain and found to have small bowel intussusception with concerns for small bowel obstruction. She had no active complaints this morning. She says she had had a bowel movement but according to her nurse the last recorded bowel movement was the night before. She denied any nausea vomiting abdominal pain. Review of systems otherwise negative. Objective Data Objective Data Vital Signs: Vital Signs Temp Pulse Resp BP Pulse Ox O2 Del Method 98.2 F 86 12 141/62 H 99 Room Air 04/23/25 13:02 04/23/25 13:02 04/23/25 13:02 04/23/25 13:02 04/23/25 13:02 04/23/25 13:12 Oxygen Delivery Method Room Air Weight: 109 lb 2.061 oz Body Mass Index (BMI) 19.3 Intake & Output: Intake and Output for Last 24 Hours 04/21/25 04/22/25 04/23/25 23:59 23:59 23:59 Intake Total 500 / 500 Output Total 0 / 0 Balance 500 / 500 Lab / Micro Data 04/23/25 06:15 04/23/25 06:15 Labs: Laboratory Results - last 24 hr 04/23/25 00:32: WBC 10.6, RBC 4.10 L, Hgb 11.0 L, Hct 35.3 L, MCV 86.1, MCH 26.8 L, MCHC 31.2 L, RDW Std Deviation 51.4 H, RDW Coeff of Lizett 16.7 H, Plt Count 169, MPV 12.8 H, Immature Gran % (Auto) 0.500, Neut % (Auto) 73.1 H, Lymph % (Auto) 16.9 L, [place] % (Auto) 8.8, Eos % (Auto) 0.1, Baso % (Auto) 0.6, Absolute Neuts (auto) 7.8 H, Absolute Lymphs (auto) 1.80, Nucleated RBC % 0.2, Sodium 139, Potassium 3.6, Chloride 95 L, Carbon Dioxide 24.9, Anion Gap 19 H, BUN 44 H, Creatinine 8.99 H*, Estim Creat Clear Calc 3.51 L*, Est GFR (MDRD) Non-Af 4 L, BUN/Creatinine Ratio 4.9 L, Glucose 105 H, Calcium 8.6, Phosphorus 4.7 H, Magnesium 2.4 H, Total Bilirubin 0.38, Direct Bilirubin 0.17, AST 19, ALT 5, Alkaline Phosphatase 119 H, Total Protein 6.3, Albumin 3.4, Globulin 2.9, Lipase 21 04/23/25 06:15: WBC 10.0, RBC 4.00 L, Hgb 10.9 L, Hct 34.3 L, MCV 85.8, MCH 27.3, MCHC 31.8 L, RDW Std Deviation 50.6 H, RDW Coeff of Lizett 16.4 H, Plt Count 169, MPV 11.7, Immature Gran % (Auto) 0.500, Neut % (Auto) 74.7 H, Lymph % (Auto) 14.2 L, [place] % (Auto) 9.9, Eos % (Auto) 0.2, Baso % (Auto) 0.5, Absolute Neuts (auto) 7.5, Absolute Lymphs (auto) 1.42, Nucleated RBC % 0, Sodium 138, Potassium 3.5, Chloride 97 L, Carbon Dioxide 24.9, Anion Gap 16 H, BUN 45 H, Creatinine 9.06 H*, Estim Creat Clear Calc 3.29 L*, Est GFR (MDRD) Non-Af 4 L, BUN/Creatinine Ratio 5.0 L, Glucose 94, Calcium 8.0 04/23/25 13:27: PT 15.0 H, INR 1.2, APTT 34.8 Micro: Microbiology 04/23/25 01:02 Mucosa - Nose SARS-CoV-2, Influenza & RSV (PCR) - Final Radiography Diagnostic Testing: Radiology Impression Abdomen/Pelvis CT 04/23/25 00:53 IMPRESSION: Ileocolonic intussusception is noted. Secondary high-grade mechanical small-bowel obstruction. Further evaluation is suggested to exclude underlying neoplastic pathology. No evidence of perforation or pneumatosis intestinalis. Prior hysterectomy. Bilateral basilar atelectatic pulmonary changes. Unchanged 2.6 cm nodule in the right lower lobe. Mild cardiomegaly, unchanged. Mild central pulmonary venous congestion. Scattered simple hepatic cysts are noted with the largest measuring 1.2 cm. Diffuse colonic diverticulosis. Unchanged chronic renal atrophy. Unchanged bilateral complex renal solid/cystic lesions, many of them contain calcifications with the largest on the right measuring 4.4 cm. Mild ascites is noted. Mild osteopenia. Moderate diffuse spondylosis. Grade 1 anterolisthesis of L4 on L5. Secondary moderate chronic concentric spinal canal stenosis. Reading Location: [place] [address] KUB X-Ray 04/23/25 05:55 IMPRESSION: Stable appearing distended bowel lobes in keeping with earlier noted small-bowel obstruction. Reading Location: [place] [address] Physical Exam Const alert and no apparent distress Constitutional Narrative: Frail and weak. HEENT head/scalp atraumatic and oropharynx normal Mouth: dry mucous membranes Eyes EOMs intact bilaterally Neck supple and no JVD Lymph Lymphatic: no lymphedema noted Resp Resp Narrative: Mildly diminished breath sounds bibasilarly. No wheezes or crackles. Cardio regular rate, regular rhythm, S1 normal heart sound, S2 normal heart sound and no murmurs GI normal to inspection, nondistended, normoactive bowel sounds and soft to palpation GI Narrative: Mild epigastric tenderness. No guarding or rebound tenderness. Extremity normal capillary refill, no clubbing, cyanosis or edema and no calf tenderness General Extremity: no tenderness to palpation of joints or extremities Skin Skin Narrative: AV fistula in LUE Neuro no focal motor deficits Motor Exam: general weakness Psych Mood & Affect: flat affect Assessment & Plan Assessment/Plan (1) Small bowel obstruction: (2) Intussusception: PLAN: Plan #Small bowel obstruction with intussusception Patient admitted with a complaint of abdominal pain and found to have small bowel obstruction with intussusception. Imaging done. Currently NPO. General surgery on board. Planning for exploratory laparotomy today. Continue hydration with IV fluids. IV morphine prn She had EKG done preop which showed sinus rhythm with occasional PVCs and possible left atrial enlargement with left axis deviation and right bundle branch block as well as evidence of lateral and inferior infarct age undetermined. She had a 2D echo done in June 2024 which showed EF of 60% with mild 1+ mitral valve insufficiency. She does not have any chest pain right now or any other such symptoms. Will therefore hold off on any further workup as patient is high risk in light of a history of heart disease and stroke and her advanced age. #ESRD: On dialysis. Nephrology on board. On sevelamer #History of stroke: On statin and plavix #Hypothyroidism: on synthroid #Dementia: on memantine and donepezil #Glaucoma: on timolol and and brinzolamide-brimonidine #Hypertension: on nifedipine DVT prophylaxis:lovenox Charges/Coding Visit Charges Inpatient E&M: 65417 Subs Hosp L2
[2025-04-23] MEDS: fentaNYL 100 MCG/2 ML Ampul IV (15:21)
[2025-04-23] MEDS: BUPIVACAINE LIPOSOME/PF 20 ML VIAL OPERA.SITE (15:23)
[2025-04-23] MEDS: 0.9% Normal Saline (Pres. free 10 ML Vial (15:23)
--- NOTE | 2025-04-23 16:21 | PCM.POST.ANE ---
Anesthesia: Postop Eval I Current Vital Signs Temperature: 97.3 F Pulse Rate: 72 Blood Pressure: 131/56 Respiratory Rate: 16 Pulse Ox: 100 Oxygen Delivery Method: Simple Mask Oxygen Flow Rate (L/min): 6 Assessment Airway patent: Yes Spontaneous unlabored respirations: Yes Mental status: Awake and Calm nausea: No Vomiting: No Anesthesia Complication: No Fluid Hydration Crystalloid volume administer (ml): 300 Total IV fluid infused: 300 Progress Note Anesthesia document: Postop Eval 1 completed: Yes
--- NOTE | 2025-04-23 16:52 | PCM.OPRPT ---
Procedures Digestive 40xxx-49xxx: 52006 XLap, Exploration of abdomen Multi Select Codes Digestive Digestive CPT Codes: 69175 Removal of colon and 38373 Exploration of abdomen Endocrine,Ocular,Nerv, Auditory Endocrine,Ocular,Nerv, Auditory CPT Codes: Other Procedure See Report (76734 bilateral tap block open) Operative Report (Standard) Operative Information Date of Procedure: 04/23/25 Pre-Operative Diagnosis: Right colon intussusception Post-Operative Diagnosis: Same plus possible mass of the right colon Surgery/Procedure Performed: 1. Diagnostic laparoscopy 2. Exploratory laparotomy 3. Right colectomy with anastomosis 4. Bilateral tap block manager university: Yes Handwriting Expert: Vane Burt Tasks completed by welder first class: Closing, Hemostasis: Electrocautery and Retracting Additional assistant tennis professional?: No Type of Anesthesia: Block,Regional and General RN Documented Start/Stop Times: Operation Date: 04/23/25 13:00 Case Time Into Pre-Op 04/23/25 12:25 Anesthesia Start 04/23/25 13:30 Into Room 04/23/25 13:30 Procedure Start 04/23/25 14:02 Procedure End 04/23/25 16:00 Anesthesia End 04/23/25 16:12 Out of Room 04/23/25 16:12 Into Recovery 04/23/25 16:15 Procedure Start Time: 14:02 Procedure Stop Time: 16:00 Select all DRAINS/GRAFTS/IMPLANTS that apply: None Estimated Blood Loss: 50 mL Specimen collected: Yes Description of specimen(s) removed: Right colon Description of surgery: The patient is an 89-year-old female who presented overnight to the [facility] with complaints of diarrhea and abdominal pain. CT scan was performed and showed a possible ileocolonic intussusception. She had pain on palpation in the area of the suspected intussusception. She was subsequently admitted. We discussed surgical options with the patient and her daughter. Her daughter gave consent to proceed. We discussed the details of the planned procedure including risk benefits and alternatives. Patient was brought the operating today following informed consent. Preoperative antibiotics were given and a timeout was performed. She was placed supine on the operative table with arms outstretched and arm boards. A general anesthesia was induced. Hernandez catheter was placed. Her arms were comfortably tucked at her side. Her abdomen was prepped and draped in the usual sterile manner. A diagnostic laparoscopy was performed first by placing a 5 mm trocar just below the umbilicus. This was performed by injecting some local anesthetic and then using a #11 blade to make a 5 mm incision. The trocar was placed topically. There were no signs of bowel or vascular injury. A very large dilated cecum was identified. Decompressed bowel was also noted small bowel diameter actually appeared relatively normal. No obvious intussusception was readily identified on initial evaluation. At this point it was felt that midline laparotomy would be most effective to identify and treat the intussusception. The midline laparotomy incision was made using #10 blade. Bovie electrocautery was then used dissect down through subtenons tissue. The abdomen was easily entered. The cecum and terminal ileum was readily identified. The cecum itself was quite dilated. The small bowel appeared relatively normal in caliber and level of distention. At this point it was decided to mobilize the right colon. In the process of doing so it was noted that what felt to be an intraluminal mass was noted in the right colon. Initially this was thought to be potentially stool however this did not seem readily movable and was not compressible suggesting a possible large polyp and/or mass. Potentially this could have served as a lead point for the intussusception and potentially the intussusception may have been a colocolonic intussusception rather than an ileocolonic intussusception. The right colon was mobilized. The terminal ileum was transected with CASEY stapler. Mid transverse colon was also transected with a CASEY stapler. A LigaSure impact was then used to take down the mesentery. The specimen was then removed. Anastomosis was created by removing a small corner of the staple line on each segment of bowel. A CASEY stapler was then inserted into each limb and the stapler was brought together and fired. A TA stapler was then used to close the open end of the anastomosis. 3-0 Vicryl was then used to close the mesenteric defect. This was also used to place a crotch stitch in the anastomosis. Anastomosis appeared healthy and viable. Hemostasis overall was quite good considering she was on Plavix. The abdomen was then copiously irrigated with several liters of warm saline.. The bilateral tap block was then performed by injecting a total of 100 cc on both sides of the incision. The fascia was then closed using #1 looped PDS x 2. Closed the fascia nicely. 3-0 Vicryl was then used to reapproximate the subdermal layer. Skin pablo were applied to the skin. A Mepilex silver dressing was then applied along with an abdominal binder. She was awakened from anesthesia and taken to recovery in good condition Surgical Findings: See operative note Complications Complications: No Admit VTE Documentation VTE Present on Admission: No VTE Mechan Device Prophylaxis: SCD's VTE Pharm Prophylaxis ordered?: No Reason prophylaxis not ordered: Treatment Not Indicated
--- NOTE | 2025-04-23 20:46 | POSTOPAN2_ITS ---
Anesthesia Postop Eval I Sum Postop Eval Completion status Anesthesia document: Postop Eval 1 completed: Yes Anesthesia Postop Eval I Summary Anesthesia Postop Eval I Summary: Anesthesia Postop Eval I: Assessment Summary Airway patent Yes 04/23/25 16:22 SALESPERSON BURIAL [email or web address] Spontaneous unlabored Yes 04/23/25 16:22 SALESPERSON BURIAL [email or web address] respirations Mental status Awake,Calm 04/23/25 16:22 SALESPERSON BURIAL [email or web address] nausea No 04/23/25 16:22 SALESPERSON BURIAL PL[employer]S.JOAQUÍNOBY Vomiting No 04/23/25 16:22 SALESPERSON BURIAL PLOTS.JOAQUÍNOBJana Anesthesia Postop Eval I: Fluid Summary Crystalloid volume administer 300 04/23/25 16:22 SALESPERSON BURIAL [email or web address] (ml) Colloids volume administered ( ml) Blood Product volume administered (ml) Total IV fluid infused 300 04/23/25 16:22 SALESPERSON BURIAL PLOTS.JOAQUÍNOBJana Anesthesia Postop Eval I: Summary Notes Anesthesia Complication No 04/23/25 16:22 SALESPERSON BURIAL [employer]OT[employer].ROMEL Anesthesia Complication Comment: Post-operative progress note Anesthesia: Postop Eval II Evaluation Mental status: Asleep Pain Level: 0 nausea: No Vomiting: No Complications Anesthesia Complication: No
--- NOTE | 2025-04-23 20:46 | PCM.POSTANE2 ---
Anesthesia Postop Eval I Sum Postop Eval Completion status Anesthesia document: Postop Eval 1 completed: Yes Anesthesia Postop Eval I Summary Anesthesia Postop Eval I Summary: Anesthesia Postop Eval I: Assessment Summary Airway patent Yes 04/23/25 16:22 [email or web address] [email or web address] Spontaneous unlabored Yes 04/23/25 16:22 BUCKET TURNER.[email or web address] respirations Mental status Awake,Calm 04/23/25 16:22 [email or web address] [email or web address] nausea No 04/23/25 16:22 BUCKET TURNER.[email or web address] Vomiting No 04/23/25 16:22 BUCKET TURNER.JOAQUÍNOBJana Anesthesia Postop Eval I: Fluid Summary Crystalloid volume administer 300 04/23/25 16:22 BUCKET [email or web address] (ml) Colloids volume administered ( ml) Blood Product volume administered (ml) Total IV fluid infused 300 04/23/25 16:22 BUCKET TURNER.JOAQUÍNOBJana Anesthesia Postop Eval I: Summary Notes Anesthesia Complication No 04/23/25 16:22 BUCKET [email or web address].ROMEL Anesthesia Complication Comment: Post-operative progress note Anesthesia: Postop Eval II Evaluation Mental status: Asleep Pain Level: 0 nausea: No Vomiting: No Complications Anesthesia Complication: No
[2025-04-23] MEDS: Glycerin/Hypromellose/PEG400 15 ml Bottle 1 DRP EACH EYE (22:23)
[2025-04-24] VITALS (9 sets, daily range): BP systolic 120–137; BP diastolic 50–70; PULSE 77–82; RESP 14–18; TEMP 36.4–36.9; O2SAT 94–98
[2025-04-24 06:09] LABS: Hematocrit 35.1 % (37-47); Hemoglobin 10.9 g/dL (12.0-15.0); Immature Granulocytes Count 0.050 X10^3/uL (0.0-0.0); Mean Corp Hgb Conc 31.1 g/dL (32-36); Mean Corpuscular Volume 87.5 fL (81-99); Mean Platelet Vol. 12.5 fl (6.2-12.0); NRBC Flagged by Analyzer 0.2 % (0-5); Platelet Count 173 K/mm3 (150-450); RBC Distribution Width CV 17.0 % (11.6-14.6); RBC Distribution Width SD 53.2 fl (35.1-43.9); Red Blood Count 4.01 M/mm3 (4.2-5.4); White Blood Count 13.1 K/mm3 (4.4-11.0)
[2025-04-24 06:53] LABS: Anion Gap 15 (5-15); BUN 32 mg/dL (4-19); BUN/Creat Ratio 5.0 RATIO (10-20); Calcium,Total 7.9 mg/dL (7.6-11.0); Carbon Dioxide 22.1 mmol/L (21.0-32.0); Chloride 103 mmol/L (98-108); Estimated Creatinine Clearance 4.69 ml/min (50-250); Glucose 100 mg/dL (70-99); Potassium 4.2 mmol/L (3.3-5.1)
--- NOTE | 2025-04-24 07:14 | PN.SURG_ITS ---
Subjective Subjective Patient evaluated resting comfortably in bed. She denies any pain or discomfort. She denies any nausea, vomiting. She denies passing flatus or having a bowel movement. Objective Data Objective Data Vital Signs: Vital Signs Temp Pulse Resp BP Pulse Ox O2 Del Method O2 Flow Rate 98.5 F 81 16 120/54 L 96 Room Air 6 04/24/25 05:32 04/24/25 05:32 04/24/25 05:32 04/24/25 05:32 04/24/25 05:32 04/24/25 05:32 04/23/25 16:22 Oxygen Flow Rate (L/min) 6 Oxygen Delivery Method Room Air Weight: 109 lb 2.061 oz Body Mass Index (BMI) 19.3 Intake & Output: Intake and Output for Last 24 Hours 04/22/25 04/23/25 04/24/25 23:59 23:59 23:59 Intake Total 1260.83 / 1260.83 Output Total 100 / 150 50 / 50 Balance 1160.83 / 1110.83 -50 / -50 Medical Nutrition Assessment Dietitian: Malnutrition Criteria Met Start: 04/23/25 15:00 Freq: Status: Active Protocol: Document 04/23/25 15:00 RMA (Rec: 04/23/25 15:00 RMA [id number]) Nutrition Malnutrition Evidence of Yes Malnutrition Exists Malnutrition (severe Chronic ): Evidenced By Suboptimal Energy Intake (Severe),Weight Loss (Severe), Physical Changes (Moderate),Physical Changes (Severe) Intake Problem Inadequate Oral Intake Etiology related to altered GI function/SBO Signs/Symptoms as evidenced by NPO Status Active Problem Clinical Problem Chronic Disease or Condition Related Malnutrition Etiology severe protein-calorie malnutrition in the context of chronic disease and debility/advanced age related to inadequate oral intake and altered GI function Signs/Symptoms as evidenced by BMI 19.3; ~11-13% unintentional weight loss x past 4-6 months; currently NPO and PO meeting less than 50-75% estimated nutrition needs x past 6 months; moderate muscle wasting in clavicle, face, arms and legs. Status Active Problem Recommendation Dietitian Recommend advance diet as tolerated to regular/no added Recommendations/ salt. Changes Will add PO Nepro as diet advanced from NPO. Consider nutrition support if unable to advance PO diet in 2-3 days. Lab / Micro Data 04/24/25 05:30 04/24/25 05:30 Labs: Laboratory Results - last 24 hr 04/23/25 06:15: Sodium 138, Potassium 3.5, Chloride 97 L, Carbon Dioxide 24.9, A nion Gap 16 H, BUN 45 H, Creatinine 9.06 H*, Estim Creat Clear Calc 3.29 L*, Est GFR (MDRD) Non-Af 4 L, BUN/Creatinine Ratio 5.0 L, Glucose 94, Calcium 8.0 04/23/25 13:27: PT 15.0 H, INR 1.2, APTT 34.8, Blood Type O POSITIVE, Antibody Screen NEGATIVE 04/24/25 05:30: WBC 13.1 H, RBC 4.01 L, Hgb 10.9 L, Hct 35.1 L, MCV 87.5, MCH 27.2, MCHC 31.1 L, RDW Std Deviation 53.2 H, RDW Coeff of Lizett 17.0 H, Plt Count 173, MPV 12.5 H, Immature Gran % (Auto) 0.400, Neut % (Auto) 79.5 H, Lymph % (Auto) 10.8 L, [place] % (Auto) 9.1, Eos % (Auto) 0.0, Baso % (Auto) 0.2, Absolute Neuts (auto) 10.4 H, Absolute Lymphs (auto) 1.41, Nucleated RBC % 0.2, Sodium 140, Potassium 4.2, Chloride 103, Carbon Dioxide 22.1, Anion Gap 15, BUN 32 H, C reatinine 6.35 H, Estim Creat Clear Calc 4.69 L*, Est GFR (MDRD) Non-Af 6 L, B UN/Creatinine Ratio 5.0 L, Glucose 100 H, Calcium 7.9 Micro: Microbiology 04/23/25 01:02 Mucosa - Nose SARS-CoV-2, Influenza & RSV (PCR) - Final Physical Exam GI GI Narrative: Abdomen- soft, nontender. Incision appears dry. No active oozing noted. Sliver dressing intact. Binder in place. Bowel sounds present. Extremity Extremity Narrative: Left upper extremity AV fistula- excellent pulse. Assessment & Plan Assessment/Plan (1) Intussusception: (2) Small bowel obstruction: (3) Colonic mass: PLAN: Plan I am following this patient in conjunction with Dr. Way. He will independently evaluate this patient. Labs reviewed Encourage ambulation and I.S Continue NPO at this time until bowel function returns May work with therapy for rehabilitation today Strict I&O's Continue IV fluids We will continue to monitor this patient closely Charges/Coding Visit Charges Inpatient E&M: 87935 Subs Hosp L1 (post-op)
--- NOTE | 2025-04-24 10:02 | PN_ITS ---
Subjective Subjective Patient seen and examined with her nurse by her bedside. She is quite lethargic and not really answering questions. Unable to do review of systems. She is postop day 1 for diagnostic laparoscopy with eventual exploratory laparotomy and resultant right colectomy with anastomosis. She has remained hemodynamically stable. Objective Data Objective Data Vital Signs: Vital Signs Temp Pulse Resp BP Pulse Ox O2 Del Method O2 Flow Rate 97.6 F L 82 15 131/55 H 94 Room Air 6 04/24/25 07:46 04/24/25 07:46 04/24/25 07:46 04/24/25 07:46 04/24/25 07:46 04/24/25 07:48 04/23/25 16:22 Oxygen Flow Rate (L/min) 6 Oxygen Delivery Method Room Air Weight: 109 lb 2.061 oz Body Mass Index (BMI) 19.3 Intake & Output: Intake and Output for Last 24 Hours 04/22/25 04/23/25 04/24/25 23:59 23:59 23:59 Intake Total 1260.83 / 1260.83 Output Total 100 / 150 50 / 50 Balance 1160.83 / 1110.83 -50 / -50 Medical Nutrition Assessment Dietitian: Malnutrition Criteria Met Start: 04/23/25 15:00 Freq: Status: Active Protocol: Document 04/23/25 15:00 RMA (Rec: 04/23/25 15:00 RMA [id number]) Nutrition Malnutrition Evidence of Yes Malnutrition Exists Malnutrition (severe Chronic ): Evidenced By Suboptimal Energy Intake (Severe),Weight Loss (Severe), Physical Changes (Moderate),Physical Changes (Severe) Intake Problem Inadequate Oral Intake Etiology related to altered GI function/SBO Signs/Symptoms as evidenced by NPO Status Active Problem Clinical Problem Chronic Disease or Condition Related Malnutrition Etiology severe protein-calorie malnutrition in the context of chronic disease and debility/advanced age related to inadequate oral intake and altered GI function Signs/Symptoms as evidenced by BMI 19.3; ~11-13% unintentional weight loss x past 4-6 months; currently NPO and PO meeting less than 50-75% estimated nutrition needs x past 6 months; moderate muscle wasting in clavicle, face, arms and legs. Status Active Problem Recommendation Dietitian Recommend advance diet as tolerated to regular/no added Recommendations/ salt. Changes Will add PO Nepro as diet advanced from NPO. Consider nutrition support if unable to advance PO diet in 2-3 days. Lab / Micro Data 04/24/25 05:30 04/24/25 05:30 Labs: Laboratory Results - last 24 hr 04/23/25 13:27: PT 15.0 H, INR 1.2, APTT 34.8, Blood Type O POSITIVE, Antibody Screen NEGATIVE 04/24/25 05:30: WBC 13.1 H, RBC 4.01 L, Hgb 10.9 L, Hct 35.1 L, MCV 87.5, MCH 27.2, MCHC 31.1 L, RDW Std Deviation 53.2 H, RDW Coeff of Lizett 17.0 H, Plt Count 173, MPV 12.5 H, Immature Gran % (Auto) 0.400, Neut % (Auto) 79.5 H, Lymph % (Auto) 10.8 L, [place] % (Auto) 9.1, Eos % (Auto) 0.0, Baso % (Auto) 0.2, Absolute Neuts (auto) 10.4 H, Absolute Lymphs (auto) 1.41, Nucleated RBC % 0.2, Sodium 140, Potassium 4.2, Chloride 103, Carbon Dioxide 22.1, Anion Gap 15, BUN 32 H, C reatinine 6.35 H, Estim Creat Clear Calc 4.69 L*, Est GFR (MDRD) Non-Af 6 L, B UN/Creatinine Ratio 5.0 L, Glucose 100 H, Calcium 7.9 Micro: Microbiology 04/23/25 01:02 Mucosa - Nose SARS-CoV-2, Influenza & RSV (PCR) - Final Physical Exam Const Constitutional Narrative: Frail and weak. Orientation / Consciousness: lethargic HEENT normocephalic, head/scalp atraumatic and oropharynx normal Eyes PERRL and EOMs intact bilaterally Neck no lymphadenopathy, supple and no JVD Lymph Lymphatic: no lymphadenopathy noted and no lymphedema noted Resp Resp Narrative: Mildly diminished breath sounds bibasilarly. No wheezes or crackles. Cardio regular rate, regular rhythm, S1 normal heart sound, S2 normal heart sound and no murmurs GI GI Narrative: intact abdominal binder. Mild tenderness. Minimal bowel sounds Auscultation: hypoactive bowel sounds Palpation: tender Positive for periumbilical Extremity normal capillary refill, no clubbing, cyanosis or edema and no calf tenderness General Extremity: no tenderness to palpation of joints or extremities Skin Skin Narrative: AV fistula in LUE General Skin Exam: no breakdown Neuro Neuro Narrative: frail, weak, lethargic Motor Exam: general weakness Psych Mood & Affect: flat affect Assessment & Plan Assessment/Plan (1) Small bowel obstruction: (2) Intussusception: PLAN: Plan #Small bowel obstruction with intussusception * Patient admitted with a complaint of abdominal pain and found to have small bowel obstruction with intussusception. Imaging done. * Currently NPO. General surgery on board. Planning for exploratory laparotomy today. * Continue hydration with IV fluids. IV morphine prn * She had EKG done preop which showed sinus rhythm with occasional PVCs and possible left atrial enlargement with left axis deviation and right bundle branch block as well as evidence of lateral and inferior infarct age undetermined. She had a 2D echo done in June 2024 which showed EF of 60% with mild 1+ mitral valve insufficiency. She does not have any chest pain right now or any other such symptoms. Will therefore hold off on any further workup as patient is high risk in light of a history of heart disease and stroke and her advanced age. * Today is postop day 1 for diagnostic laparoscopy with exploratory laparotomy and right colectomy with anastomosis. Surgery showed right colon intussusception with possible mass of the right colon. * Remains NPO. General surgery on board. Management as per general surgery. * Continue hydration with IV fluids. * #ESRD: On dialysis. Nephrology on board. On sevelamer #History of stroke: On statin and plavix #Hypothyroidism: on synthroid #Dementia: on memantine and donepezil #Glaucoma: on timolol and and brinzolamide-brimonidine #Hypertension: on nifedipine DVT prophylaxis:lovenox Charges/Coding Visit Charges Inpatient E&M: 36605 Subs Hosp L2
[2025-04-24] MEDS: BIMATOPROST 2.5 ML DROPS LEFT EYE (10:23)
[2025-04-24] MEDS: Timolol 0.5% 5ML OPTH.BTL 1 DRP EACH EYE ×2 (10:23→21:35)
[2025-04-24] MEDS: Albuterol 2.5 MG/3 ML VIAL.NEB. INHALATION ×2 (13:22→19:38)
[2025-04-24] MEDS: 0.9% Saline Lock 10 ML Syringe IV ×2 (14:37→18:52)
[2025-04-24] MEDS: 0.9% Normal Saline (1000mL) 1,000 ML 125 ML IV (17:56)
[2025-04-24] MEDS: Budesonide Respules 0.5 MG/2 ML AMPUL.NEB. INHALATION (19:39)
[2025-04-24] MEDS: Glycerin/Hypromellose/PEG400 15 ml Bottle 1 DRP EACH EYE (21:42)
[2025-04-25] VITALS (13 sets, daily range): BP systolic 117–177; BP diastolic 49–74; PULSE 76–82; RESP 14–16; TEMP 36.3–37; O2SAT 93–97; BMI 20.7; BMI 20.2
[2025-04-25] MEDS: 0.9% Normal Saline (1000mL) 1,000 ML 125 ML IV (03:35)
[2025-04-25 06:36] LABS: Hematocrit 30.2 % (37-47); Hemoglobin 9.5 g/dL (12.0-15.0); Immature Granulocytes Count 0.050 X10^3/uL (0.0-0.0); Mean Corp Hgb Conc 31.5 g/dL (32-36); Mean Corpuscular Volume 87.3 fL (81-99); Mean Platelet Vol. 12.2 fl (6.2-12.0); NRBC Flagged by Analyzer 0.2 % (0-5); Platelet Count 149 K/mm3 (150-450); RBC Distribution Width CV 17.1 % (11.6-14.6); RBC Distribution Width SD 53.1 fl (35.1-43.9); Red Blood Count 3.46 M/mm3 (4.2-5.4); White Blood Count 10.9 K/mm3 (4.4-11.0)
[2025-04-25] MEDS: Budesonide Respules 0.5 MG/2 ML AMPUL.NEB. INHALATION (06:48)
[2025-04-25] MEDS: Albuterol 2.5 MG/3 ML VIAL.NEB. INHALATION (06:48)
[2025-04-25 07:08] LABS: Anion Gap 17 (5-15); BUN 46 mg/dL (4-19); BUN/Creat Ratio 5.9 RATIO (10-20); Calcium,Total 7.6 mg/dL (7.6-11.0); Carbon Dioxide 19.5 mmol/L (21.0-32.0); Chloride 105 mmol/L (98-108); Estimated Creatinine Clearance 3.84 ml/min (50-250); Glucose 65 mg/dL (70-99); Potassium 4.5 mmol/L (3.3-5.1)
--- NOTE | 2025-04-25 08:08 | PCM.PN.SRG ---
Subjective Subjective Patient evaluated resting comfortably in bed. Patient was noted to have pain over night and was given morphine. Patient seems less alert this morning than yesterday. Patient's daughter is in the room. She denies patient having any bowel function. She denies patient having any nausea, vomiting. Objective Data Objective Data Vital Signs: Vital Signs Temp Pulse Resp BP Pulse Ox O2 Del Method O2 Flow Rate 97.4 F L 81 16 135/57 H 93 Room Air 6 04/25/25 03:30 04/25/25 06:48 04/25/25 06:48 04/25/25 03:30 04/25/25 06:48 04/25/25 06:48 04/23/25 16:22 Oxygen Flow Rate (L/min) 6 Oxygen Delivery Method Room Air Weight: 109 lb 2.061 oz Body Mass Index (BMI) 19.3 Intake & Output: Intake and Output for Last 24 Hours 04/23/25 04/24/25 04/25/25 23:59 23:59 23:59 Intake Total 1260.83 / 1260.83 464.5 / 464.5 1000 / 1000 Output Total 100 / 150 50 / 50 Balance 1160.83 / 1110.83 414.5 / 414.5 1000 / 1000 Medical Nutrition Assessment Dietitian: Malnutrition Criteria Met Start: 04/23/25 15:00 Freq: Status: Active Protocol: Document 04/23/25 15:00 RMA (Rec: 04/23/25 15:00 RMA [id number]) Nutrition Malnutrition Evidence of Yes Malnutrition Exists Malnutrition (severe Chronic ): Evidenced By Suboptimal Energy Intake (Severe),Weight Loss (Severe), Physical Changes (Moderate),Physical Changes (Severe) Intake Problem Inadequate Oral Intake Etiology related to altered GI function/SBO Signs/Symptoms as evidenced by NPO Status Active Problem Clinical Problem Chronic Disease or Condition Related Malnutrition Etiology severe protein-calorie malnutrition in the context of chronic disease and debility/advanced age related to inadequate oral intake and altered GI function Signs/Symptoms as evidenced by BMI 19.3; ~11-13% unintentional weight loss x past 4-6 months; currently NPO and PO meeting less than 50-75% estimated nutrition needs x past 6 months; moderate muscle wasting in clavicle, face, arms and legs. Status Active Problem Recommendation Dietitian Recommend advance diet as tolerated to regular/no added Recommendations/ salt. Changes Will add PO Nepro as diet advanced from NPO. Consider nutrition support if unable to advance PO diet in 2-3 days. Lab / Micro Data 04/25/25 05:48 04/25/25 05:48 Labs: Laboratory Results - last 24 hr 04/25/25 05:48: WBC 10.9, RBC 3.46 L, Hgb 9.5 L, Hct 30.2 L, MCV 87.3, MCH 27.5, MCHC 31.5 L, RDW Std Deviation 53.1 H, RDW Coeff of Lizett 17.1 H, Plt Count 149 L, MPV 12.2 H, Immature Gran % (Auto) 0.500, Neut % (Auto) 78.0 H, Lymph % (Auto) 12.1 L, [place] % (Auto) 8.9, Eos % (Auto) 0.1, Baso % (Auto) 0.4, Absolute Neuts (auto) 8.5 H, Absolute Lymphs (auto) 1.32, Nucleated RBC % 0.2, Sodium 142, Potassium 4.5, Chloride 105, Carbon Dioxide 19.5 L, Anion Gap 17 H, BUN 46 H, Creatinine 7.77 H*, Estim Creat Clear Calc 3.84 L*, Est GFR (MDRD) Non-Af 5 L, BUN/Creatinine Ratio 5.9 L, Glucose 65 L, Calcium 7.6 Micro: Microbiology 04/23/25 01:02 Mucosa - Nose SARS-CoV-2, Influenza & RSV (PCR) - Final Physical Exam GI GI Narrative: Abdomen- soft, slight tenderness in the right side of the abdomen. Incision c/d/i. No erythema or infection noted. Assessment & Plan Assessment/Plan (1) Colonic mass: (2) Intussusception: (3) Small bowel obstruction: PLAN: Plan I am following this patient in conjunction with Dr. Way. He has independently evaluated this patient. Labs reviewed Increase diet to clear liquids Have patient in the chair or sitting up in bed for all meals to decrease risk for aspiration Dialysis nurse witnessed she had flatus Continue to work with PT/OT We will continue to monitor this patient Charges/Coding Visit Charges Inpatient E&M: 79909 Subs Hosp L1 (post-op; no charge)
[2025-04-25] MEDS: PureFlow B 2K Dialysis Soln 1 BAG 6 BAG PF (08:16)
[2025-04-25] MEDS: 0.9% Normal Saline 1,000 ML IV.SOLN. 1000 ML OPERA.SITE (08:16)
--- NOTE | 2025-04-25 08:31 | PN.RENAL_ITS ---
Subjective Subjective most recent events reviewed. Currently on dialysis without issues. Pt confused, received pain medication recently Objective Data Objective Data Vital Signs: Vital Signs Temp Pulse Resp BP Pulse Ox O2 Del Method O2 Flow Rate 97.8 F 82 14 139/53 H 94 Room Air 6 04/25/25 08:00 04/25/25 08:19 04/25/25 08:19 04/25/25 08:19 04/25/25 08:00 04/25/25 08:19 04/23/25 16:22 Oxygen Flow Rate (L/min) 6 Oxygen Delivery Method Room Air Weight: 53 kg Body Mass Index (BMI) 20.7 Intake & Output: Intake and Output for Last 24 Hours 04/23/25 04/24/25 04/25/25 23:59 23:59 23:59 Intake Total 1260.83 / 1260.83 464.5 / 464.5 1000 / 1000 Output Total 100 / 150 50 / 50 Balance 1160.83 / 1110.83 414.5 / 414.5 1000 / 1000 Medical Nutrition Assessment Dietitian: Malnutrition Criteria Met Start: 04/23/25 15:00 Freq: Status: Active Protocol: Document 04/23/25 15:00 RMA (Rec: 04/23/25 15:00 RMA [id number]) Nutrition Malnutrition Evidence of Yes Malnutrition Exists Malnutrition (severe Chronic ): Evidenced By Suboptimal Energy Intake (Severe),Weight Loss (Severe), Physical Changes (Moderate),Physical Changes (Severe) Intake Problem Inadequate Oral Intake Etiology related to altered GI function/SBO Signs/Symptoms as evidenced by NPO Status Active Problem Clinical Problem Chronic Disease or Condition Related Malnutrition Etiology severe protein-calorie malnutrition in the context of chronic disease and debility/advanced age related to inadequate oral intake and altered GI function Signs/Symptoms as evidenced by BMI 19.3; ~11-13% unintentional weight loss x past 4-6 months; currently NPO and PO meeting less than 50-75% estimated nutrition needs x past 6 months; moderate muscle wasting in clavicle, face, arms and legs. Status Active Problem Recommendation Dietitian Recommend advance diet as tolerated to regular/no added Recommendations/ salt. Changes Will add PO Nepro as diet advanced from NPO. Consider nutrition support if unable to advance PO diet in 2-3 days. Lab / Micro Data 04/26/25 06:35 04/26/25 06:35 Labs: Laboratory Results - last 24 hr 04/25/25 05:48: WBC 10.9, RBC 3.46 L, Hgb 9.5 L, Hct 30.2 L, MCV 87.3, MCH 27.5, MCHC 31.5 L, RDW Std Deviation 53.1 H, RDW Coeff of Lizett 17.1 H, Plt Count 149 L, MPV 12.2 H, Immature Gran % (Auto) 0.500, Neut % (Auto) 78.0 H, Lymph % (Auto) 12.1 L, [place] % (Auto) 8.9, Eos % (Auto) 0.1, Baso % (Auto) 0.4, Absolute Neuts (auto) 8.5 H, Absolute Lymphs (auto) 1.32, Nucleated RBC % 0.2, Sodium 142, Potassium 4.5, Chloride 105, Carbon Dioxide 19.5 L, Anion Gap 17 H, BUN 46 H, C reatinine 7.77 H*, Estim Creat Clear Calc 3.84 L*, Est GFR (MDRD) Non-Af 5 L, B UN/Creatinine Ratio 5.9 L, Glucose 65 L, Calcium 7.6 Micro: Microbiology 04/23/25 01:02 Mucosa - Nose SARS-CoV-2, Influenza & RSV (PCR) - Final Physical Exam Const Constitutional Narrative: dementia, poor historian, resting comfortably Orientation / Consciousness: confused Cardio regular rate GI Palpation: tender Extremity no clubbing, cyanosis or edema Assessment & Plan Assessment/Plan (1) End stage renal disease on dialysis: PLAN: dialysis TTS, currently on dialysis without incident. DW dialysis nurse (2) Dementia: PLAN: chronic, ECF resident (3) Hypertension: PLAN: stable (4) Small bowel obstruction: PLAN: surgery mgmt
--- NOTE | 2025-04-25 10:35 | PN_ITS ---
Subjective Subjective Patient seen and examined. She was having dialysis. She was drowsy and would just answer yes and no to questions. Unable to do comprehensive review of systems.. As she has passed gas. She has been started on a clear liquid diet today. Objective Data Objective Data Vital Signs: Vital Signs Temp Pulse Resp BP Pulse Ox O2 Del Method O2 Flow Rate 97.8 F 79 15 149/74 H 94 Room Air 6 04/25/25 08:00 04/25/25 10:19 04/25/25 10:19 04/25/25 10:19 04/25/25 08:00 04/25/25 10:19 04/23/25 16:22 Oxygen Flow Rate (L/min) 6 Oxygen Delivery Method Room Air Weight: 116 lb 13.52 oz Body Mass Index (BMI) 20.7 Intake & Output: Intake and Output for Last 24 Hours 04/23/25 04/24/25 04/25/25 23:59 23:59 23:59 Intake Total 1260.83 / 1260.83 464.5 / 464.5 1000 / 1000 Output Total 100 / 150 50 / 50 Balance 1160.83 / 1110.83 414.5 / 414.5 1000 / 1000 Medical Nutrition Assessment Dietitian: Malnutrition Criteria Met Start: 04/23/25 15:00 Freq: Status: Active Protocol: Document 04/23/25 15:00 RMA (Rec: 04/23/25 15:00 RMA [id number]) Nutrition Malnutrition Evidence of Yes Malnutrition Exists Malnutrition (severe Chronic ): Evidenced By Suboptimal Energy Intake (Severe),Weight Loss (Severe), Physical Changes (Moderate),Physical Changes (Severe) Intake Problem Inadequate Oral Intake Etiology related to altered GI function/SBO Signs/Symptoms as evidenced by NPO Status Active Problem Clinical Problem Chronic Disease or Condition Related Malnutrition Etiology severe protein-calorie malnutrition in the context of chronic disease and debility/advanced age related to inadequate oral intake and altered GI function Signs/Symptoms as evidenced by BMI 19.3; ~11-13% unintentional weight loss x past 4-6 months; currently NPO and PO meeting less than 50-75% estimated nutrition needs x past 6 months; moderate muscle wasting in clavicle, face, arms and legs. Status Active Problem Recommendation Dietitian Recommend advance diet as tolerated to regular/no added Recommendations/ salt. Changes Will add PO Nepro as diet advanced from NPO. Consider nutrition support if unable to advance PO diet in 2-3 days. Lab / Micro Data 04/25/25 05:48 04/25/25 05:48 Labs: Laboratory Results - last 24 hr 04/25/25 05:48: WBC 10.9, RBC 3.46 L, Hgb 9.5 L, Hct 30.2 L, MCV 87.3, MCH 27.5, MCHC 31.5 L, RDW Std Deviation 53.1 H, RDW Coeff of [place] 17.1 H, Plt Count 149 L, MPV 12.2 H, Immature Gran % (Auto) 0.500, Neut % (Auto) 78.0 H, Lymph % (Auto) 12.1 L, [place] % (Auto) 8.9, Eos % (Auto) 0.1, Baso % (Auto) 0.4, Absolute Neuts (auto) 8.5 H, Absolute Lymphs (auto) 1.32, Nucleated RBC % 0.2, Sodium 142, Potassium 4.5, Chloride 105, Carbon Dioxide 19.5 L, Anion Gap 17 H, BUN 46 H, C reatinine 7.77 H*, Estim Creat Clear Calc 3.84 L*, Est GFR (MDRD) Non-Af 5 L, B UN/Creatinine Ratio 5.9 L, Glucose 65 L, Calcium 7.6 Micro: Microbiology 04/23/25 01:02 Mucosa - Nose SARS-CoV-2, Influenza & RSV (PCR) - Final Physical Exam Const Constitutional Narrative: Frail and weak. Orientation / Consciousness: lethargic HEENT normocephalic, head/scalp atraumatic and oropharynx normal Eyes PERRL and EOMs intact bilaterally Neck no lymphadenopathy, supple and no JVD Lymph Lymphatic: no lymphedema noted Resp Resp Narrative: Mildly diminished breath sounds bibasilarly. No wheezes or crackles. Cardio regular rate, regular rhythm, S1 normal heart sound, S2 normal heart sound and no murmurs GI GI Narrative: intact abdominal binder. Mild tenderness. Minimal bowel sounds Auscultation: hypoactive bowel sounds Extremity normal capillary refill, no clubbing, cyanosis or edema and no calf tenderness General Extremity: no tenderness to palpation of joints or extremities Skin Skin Narrative: AV fistula in LUE General Skin Exam: no breakdown Neuro no focal motor deficits Neuro Narrative: frail, weak, lethargic Motor Exam: general weakness Psych Mood & Affect: flat affect Assessment & Plan Assessment/Plan (1) Small bowel obstruction: (2) Intussusception: PLAN: Plan #Small bowel obstruction with intussusception * Patient admitted with a complaint of abdominal pain and found to have small bowel obstruction with intussusception per imaging done * Continue hydration with IV fluids. IV morphine prn * She had EKG done preop which showed sinus rhythm with occasional PVCs and possible left atrial enlargement with left axis deviation and right bundle branch block as well as evidence of lateral and inferior infarct age undetermined. She had a 2D echo done in June 2024 which showed EF of 60% with mild 1+ mitral valve insufficiency. She does not have any chest pain right now or any other such symptoms. Will therefore hold off on any further workup as patient is high risk in light of a history of heart disease and stroke and her advanced age. * Today is postop day 2 for diagnostic laparoscopy with exploratory laparotomy and right colectomy with anastomosis. Surgery showed right colon intussusception with possible mass of the right colon. * Patient started on clear liquid diet by general surgery. Management as per general surgery. * Continue hydration with IV fluids. * #ESRD: On dialysis. Nephrology on board. On sevelamer #History of stroke: On statin and plavix #Hypothyroidism: on synthroid #Dementia: on memantine and donepezil #Glaucoma: on timolol and and brinzolamide-brimonidine #Hypertension: on nifedipine DVT prophylaxis:lovenox Charges/Coding Visit Charges Inpatient E&M: 70920 Subs Hosp L2
--- NOTE | 2025-04-25 11:01 | CASEMGMT ---
Social Work- Pt to have dialysis today; continues to be medically unstable for d/c. SW following for d/c needs. Pt is a bed hold at [facility]. Plan: [facility]; return when medically ready CHRISTIANO Napoles
[2025-04-25] MEDS: 0.9% Saline Lock 10 ML Syringe IV (11:52)
[2025-04-25] MEDS: Timolol 0.5% 5ML OPTH.BTL 1 DRP EACH EYE ×2 (11:53→22:06)
[2025-04-25] MEDS: BIMATOPROST 2.5 ML DROPS LEFT EYE (11:54)
--- NOTE | 2025-04-25 14:15 | CASEMGMT ---
[facility] [place] Nina Trejo DC Planning Asst.
--- NOTE | 2025-04-25 15:28 | NURSING ---
daughter states she tried feeding pt and pt wouldn't eat for her either.
--- NOTE | 2025-04-25 16:07 | CHAPLAIN ---
Type of Pastoral Visit _x__ Initial Visit ___ Follow-up Visit ___ On-call Visit ___ General Patient Visit ___ Spiritual Assessment ___ Family Conference ___ Bereavement ___ Rapid Response ___ Code Blue ___ Other (describe below) Pastoral Care Referral From ___ Patient _x__ Family ___ Nurse ___ Physician ___ Steel Rod Buster ___ Broaching Machine Repairer ___ Other (describe below) Sacrament/Intervention ___ Active listening ___ Anointing ___ Sabianism ___ Bereavement ___ Communion ___ Lillie exploration ___ ___ Life review ___ Prayer ___ Reconciliation ___ Sacrament of Sick _x__ Supportive presence ___ Wedding ___ Other (describe below) Pastoral Comments support given to family member; patient is sleeping and did not awaken to her name;
[2025-04-25] MEDS: Glycerin/Hypromellose/PEG400 15 ml Bottle 1 DRP EACH EYE (22:24)
[2025-04-26] VITALS (8 sets, daily range): BP systolic 126–158; BP diastolic 53–61; PULSE 77–86; RESP 14–20; TEMP 36.4–37.1; O2SAT 95–97
--- NOTE | 2025-04-26 06:35 | PCM.PN.SRG ---
Subjective Subjective Patient seen and examined during AM rounds. She was found sleeping but arouses with slight stimulus. Daughter is at bedside and states that her mother is overall doing okay and appears controlled for pain, however, she notes that her mother became somewhat drowsy after 1 particular medication was administered yesterday. She states that her mother has not shown much interest yet in the presently ordered clear liquids. Objective Data Objective Data Vital Signs: Vital Signs Temp Pulse Resp BP Pulse Ox O2 Del Method O2 Flow Rate 97.9 F 77 16 126/56 H 95 Room Air 6 04/26/25 03:54 04/26/25 03:54 04/26/25 03:54 04/26/25 03:54 04/26/25 03:54 04/26/25 03:54 04/23/25 16:22 Oxygen Flow Rate (L/min) 6 Oxygen Delivery Method Room Air Weight: 114 lb 10.246 oz Body Mass Index (BMI) 20.2 Intake & Output: Intake and Output for Last 24 Hours 04/24/25 04/25/25 04/26/25 23:59 23:59 23:59 Intake Total 464.5 / 464.5 2115 / 2115 Output Total 50 / 50 1050 / 1050 Balance 414.5 / 414.5 1065 / 1065 Medical Nutrition Assessment Dietitian: Malnutrition Criteria Met Start: 04/23/25 15:00 Freq: Status: Active Protocol: Document 04/23/25 15:00 RMA (Rec: 04/23/25 15:00 RMA [id number]) Nutrition Malnutrition Evidence of Yes Malnutrition Exists Malnutrition (severe Chronic ): Evidenced By Suboptimal Energy Intake (Severe),Weight Loss (Severe), Physical Changes (Moderate),Physical Changes (Severe) Intake Problem Inadequate Oral Intake Etiology related to altered GI function/SBO Signs/Symptoms as evidenced by NPO Status Active Problem Clinical Problem Chronic Disease or Condition Related Malnutrition Etiology severe protein-calorie malnutrition in the context of chronic disease and debility/advanced age related to inadequate oral intake and altered GI function Signs/Symptoms as evidenced by BMI 19.3; ~11-13% unintentional weight loss x past 4-6 months; currently NPO and PO meeting less than 50-75% estimated nutrition needs x past 6 months; moderate muscle wasting in clavicle, face, arms and legs. Status Active Problem Recommendation Dietitian Recommend advance diet as tolerated to regular/no added Recommendations/ salt. Changes Will add PO Nepro as diet advanced from NPO. Consider nutrition support if unable to advance PO diet in 2-3 days. Lab / Micro Data 04/26/25 06:35 04/26/25 06:35 Labs: Laboratory Results - last 24 hr 04/25/25 05:48: WBC 10.9, RBC 3.46 L, Hgb 9.5 L, Hct 30.2 L, MCV 87.3, MCH 27.5, MCHC 31.5 L, RDW Std Deviation 53.1 H, RDW Coeff of Lizett 17.1 H, Plt Count 149 L, MPV 12.2 H, Immature Gran % (Auto) 0.500, Neut % (Auto) 78.0 H, Lymph % (Auto) 12.1 L, [place] % (Auto) 8.9, Eos % (Auto) 0.1, Baso % (Auto) 0.4, Absolute Neuts (auto) 8.5 H, Absolute Lymphs (auto) 1.32, Nucleated RBC % 0.2, Sodium 142, Potassium 4.5, Chloride 105, Carbon Dioxide 19.5 L, Anion Gap 17 H, BUN 46 H, Creatinine 7.77 H*, Estim Creat Clear Calc 3.84 L*, Est GFR (MDRD) Non-Af 5 L, BUN/Creatinine Ratio 5.9 L, Glucose 65 L, Calcium 7.6 Micro: Microbiology 04/23/25 01:02 Mucosa - Nose SARS-CoV-2, Influenza & RSV (PCR) - Final Physical Exam Const Constitutional Narrative: Minimally arousable and unable to demonstrate orientation Resp normal respiratory effort GI GI Narrative: Mildly distended, operative dressings intact, soft, no apparent tenderness with palpation Assessment & Plan Assessment/Plan (1) Colonic mass: (2) Intussusception: (3) Small bowel obstruction: PLAN: Plan Patient is postoperative day 3 from right hemicolectomy. She remains minimally communicative or interactive. This has been discussed with hospitalist and has been confirmed a roughly be patient's baseline. Unfortunately patient has not demonstrated a strong appetite and has only taken minimal clear liquids. Would like to see this better tolerated before she is advanced further on her diet. This would be both for her physical tolerance from a postoperative standpoint but also for her aspiration risk. Continue clear liquids Limit opiate Continue to work with PT/OT Continue inpatient care. Dr. Montiel to cover the weekend Enoc Asif MD General Surgery Endocrine Surgery Pager: [facility] [address] [place] [address], [address] [place] [address] Office: [phone] Charges/Coding Visit Charges Inpatient E&M: 37797 Subs Hosp L2
[2025-04-26 07:10] LABS: Hematocrit 32.2 % (37-47); Hemoglobin 9.7 g/dL (12.0-15.0); Immature Granulocytes Count 0.030 X10^3/uL (0.0-0.0); Mean Corp Hgb Conc 30.1 g/dL (32-36); Mean Corpuscular Volume 89.9 fL (81-99); Mean Platelet Vol. 12.2 fl (6.2-12.0); NRBC Flagged by Analyzer 0.4 % (0-5); Platelet Count 128 K/mm3 (150-450); RBC Distribution Width CV 17.0 % (11.6-14.6); RBC Distribution Width SD 55.7 fl (35.1-43.9); Red Blood Count 3.58 M/mm3 (4.2-5.4); White Blood Count 8.5 K/mm3 (4.4-11.0)
[2025-04-26] MEDS: Budesonide Respules 0.5 MG/2 ML AMPUL.NEB. INHALATION ×2 (07:17→19:24)
[2025-04-26] MEDS: Albuterol 2.5 MG/3 ML VIAL.NEB. INHALATION ×3 (07:17→19:24)
--- NOTE | 2025-04-26 07:19 | CT_ITS ---
PROCEDURE: CHEST WITHOUT CONTRAST 04/26/2025 REASON FOR EXAM: LUNG MASS TECHNIQUE: Chest CT without contrast. Coronal and Sagittal reconstruction series were provided. One or more dose reduction techniques were used (e.g., Automated exposure control, adjustment of the mA and/or kV according to patient size, use of iterative reconstruction technique RADIATION DOSE SUMMARY: CTDlvol: 9.77 mGy DLP: 280.67 mGycm COMPARISON: None. FINDINGS: Hardware: None. Lymph nodes: No lymphadenopathy. Heart and Vasculature: Moderate cardiomegaly. Coronary Artery Calcifications: Present Lungs and Airways: Airspace opacities in the lower lobes including a 3.2 x 5 x 4.4 cm mass in the right lower lobe may represent pneumonia or lung cancer. Pleura: Bilateral small pleural effusions. Upper Abdomen: Free air noted. Bones: No acute bony abnormalities. CT/Chest without Contrast IMPRESSION: Coronary artery calcification (CAC) is is present Airspace opacities in the lower lobes including a 3.2 x 5 x 4.4 cm mass in the right lower lobe may represent pneumonia or lung cancer. Bilateral small pleural effusions. Free air noted under the diaphragm. Reading Location: [id number]
[2025-04-26 07:49] LABS: Anion Gap 16 (5-15); BUN 37 mg/dL (4-19); BUN/Creat Ratio 5.7 RATIO (10-20); Calcium,Total 8.4 mg/dL (7.6-11.0); Carbon Dioxide 23.0 mmol/L (21.0-32.0); Chloride 105 mmol/L (98-108); Estimated Creatinine Clearance 4.88 ml/min (50-250); Glucose 67 mg/dL (70-99); Potassium 4.2 mmol/L (3.3-5.1)
[2025-04-26] MEDS: BIMATOPROST 2.5 ML DROPS LEFT EYE (08:47)
[2025-04-26] MEDS: Timolol 0.5% 5ML OPTH.BTL 1 DRP EACH EYE ×2 (08:47→20:41)
--- NOTE | 2025-04-26 10:05 | CASEMGMT ---
Social Work As per physician, pt is not ready to return to SNF today, but may be ready on the weekend. SW discharge blood bank assistant let [facility] know, SW placed transport form w/green sheet on chart in anticipation of weekend discharge. AMANDA Reddy
--- NOTE | 2025-04-26 10:33 | CASEMGMT ---
Addendum entered by Froylan Dickerson 04/26/25 10:36: Call placed to Jenny @ [facility]. She was made aware pt will most likely discharge over the weekend. Original Note: JUSTIN FONSECA NOTE: Per Veronika @ [place], pt goes to [facility] in [place] for OP HD TTS, chair time is 9:15 AM. Sergio WHITAKER RN, CM
--- NOTE | 2025-04-26 10:39 | PN_ITS ---
Subjective Subjective Patient seen and examined with her nurse by her bedside. Her daughter was also by her bedside. Patient was quite lethargic and barely communicative. Unable to do review of systems. Per daughter patient received some opiates yesterday and she thinks that has made him another very lethargic. She is hoping that opiates can be taken off. Review of systems otherwise negative. Objective Data Objective Data Vital Signs: Vital Signs Temp Pulse Resp BP Pulse Ox O2 Del Method O2 Flow Rate 97.6 F L 77 14 158/61 H 95 Room Air 6 04/26/25 10:20 04/26/25 10:20 04/26/25 10:20 04/26/25 10:20 04/26/25 10:20 04/26/25 10:20 04/23/25 16:22 Oxygen Flow Rate (L/min) 6 Oxygen Delivery Method Room Air Weight: 114 lb 10.246 oz Body Mass Index (BMI) 20.2 Intake & Output: Intake and Output for Last 24 Hours 04/24/25 04/25/25 04/26/25 23:59 23:59 23:59 Intake Total 464.5 / 464.5 2115 / 2115 Output Total 50 / 50 1050 / 1050 Balance 414.5 / 414.5 1065 / 1065 Medical Nutrition Assessment Dietitian: Malnutrition Criteria Met Start: 04/23/25 15:00 Freq: Status: Active Protocol: Document 04/23/25 15:00 RMA (Rec: 04/23/25 15:00 RMA [id number]) Nutrition Malnutrition Evidence of Yes Malnutrition Exists Malnutrition (severe Chronic ): Evidenced By Suboptimal Energy Intake (Severe),Weight Loss (Severe), Physical Changes (Moderate),Physical Changes (Severe) Intake Problem Inadequate Oral Intake Etiology related to altered GI function/SBO Signs/Symptoms as evidenced by NPO Status Active Problem Clinical Problem Chronic Disease or Condition Related Malnutrition Etiology severe protein-calorie malnutrition in the context of chronic disease and debility/advanced age related to inadequate oral intake and altered GI function Signs/Symptoms as evidenced by BMI 19.3; ~11-13% unintentional weight loss x past 4-6 months; currently NPO and PO meeting less than 50-75% estimated nutrition needs x past 6 months; moderate muscle wasting in clavicle, face, arms and legs. Status Active Problem Recommendation Dietitian Recommend advance diet as tolerated to regular/no added Recommendations/ salt. Changes Will add PO Nepro as diet advanced from NPO. Consider nutrition support if unable to advance PO diet in 2-3 days. Lab / Micro Data 04/26/25 06:35 04/26/25 06:35 Labs: Laboratory Results - last 24 hr 04/26/25 06:35: WBC 8.5, RBC 3.58 L, Hgb 9.7 L, Hct 32.2 L, MCV 89.9, MCH 27.1, MCHC 30.1 L, RDW Std Deviation 55.7 H, RDW Coeff of Lizett 17.0 H, Plt Count 128 L, MPV 12.2 H, Immature Gran % (Auto) 0.400, Neut % (Auto) 75.7 H, Lymph % (Auto) 14.5 L, [place] % (Auto) 8.4, Eos % (Auto) 0.6, Baso % (Auto) 0.4, Absolute Neuts (auto) 6.5, Absolute Lymphs (auto) 1.24, Nucleated RBC % 0.4, Sodium 144, Potassium 4.2, Chloride 105, Carbon Dioxide 23.0, Anion Gap 16 H, BUN 37 H, C reatinine 6.41 H, Estim Creat Clear Calc 4.88 L*, Est GFR (MDRD) Non-Af 6 L, B UN/Creatinine Ratio 5.7 L, Glucose 67 L, Calcium 8.4 Micro: Microbiology 04/23/25 01:02 Mucosa - Nose SARS-CoV-2, Influenza & RSV (PCR) - Final Radiography Diagnostic Testing: Radiology Impression Chest CT 04/26/25 07:19 IMPRESSION: Coronary artery calcification (CAC) is is present Airspace opacities in the lower lobes including a 3.2 x 5 x 4.4 cm mass in the right lower lobe may represent pneumonia or lung cancer. Bilateral small pleural effusions. Free air noted under the diaphragm. Reading Location: [facility] Physical Exam Const alert and no apparent distress Constitutional Narrative: Frail and weak. Orientation / Consciousness: lethargic HEENT normocephalic, head/scalp atraumatic and oropharynx normal Eyes PERRL and EOMs intact bilaterally Neck no lymphadenopathy, supple and no JVD Lymph Lymphatic: no lymphadenopathy noted and no lymphedema noted Resp Resp Narrative: Mildly diminished breath sounds bibasilarly. No wheezes or crackles. Cardio regular rate, regular rhythm, S1 normal heart sound, S2 normal heart sound and no murmurs GI GI Narrative: intact abdominal binder. Mild tenderness. Few bowel sounds Auscultation: hypoactive bowel sounds Palpation: tender Positive for periumbilical Extremity normal capillary refill, no clubbing, cyanosis or edema and no calf tenderness General Extremity: no tenderness to palpation of joints or extremities Skin Skin Narrative: AV fistula in LUE General Skin Exam: no breakdown Neuro no focal motor deficits Neuro Narrative: frail, weak, lethargic Speech: speech abnormal Details: Positive for other (Aphasic) Motor Exam: general weakness Psych Appearance: appropriate Mood & Affect: flat affect Assessment & Plan Assessment/Plan (1) Small bowel obstruction: (2) Intussusception: PLAN: Plan #Small bowel obstruction with intussusception * Patient admitted with a complaint of abdominal pain and found to have small bowel obstruction with intussusception per imaging done * Continue hydration with IV fluids. IV morphine prn * She had EKG done preop which showed sinus rhythm with occasional PVCs and possible left atrial enlargement with left axis deviation and right bundle branch block as well as evidence of lateral and inferior infarct age undetermined. She had a 2D echo done in June 2024 which showed EF of 60% with mild 1+ mitral valve insufficiency. She does not have any chest pain right now or any other such symptoms. Will therefore hold off on any further workup as patient is high risk in light of a history of heart disease and stroke and her advanced age. * Today is postop day 3 for diagnostic laparoscopy with exploratory laparotomy and right colectomy with anastomosis. * Surgery showed right colon intussusception with possible mass of the right colon. * Patient remains on clear liquid diet by general surgery. Management as per general surgery. * Continue hydration with IV fluids. * CT chest done for staging of possible cancer showed a 3.2 x 5 x 4.4cm mass in charlene right upper lobe which may represent pneumonia or lung cancer. * pathology report for the colonic mass is still pending. It will be helpful to get that back first to know if it is a primary mass as the lung mass may be due to mets * I spoke to Roan Barone of [place] [facility]. Since we do not have pathology results back we cannot effectively start treatment. She did work with patient information and will get the patient in within a week and a half of the most for evaluation with a bilateral hand pathology results will be back. #ESRD: On dialysis. Nephrology on board. On sevelamer #History of stroke: On statin and plavix #Hypothyroidism: on synthroid #Dementia: on memantine and donepezil #Glaucoma: on timolol and and brinzolamide-brimonidine #Hypertension: on nifedipine DVT prophylaxis:lovenox Charges/Coding Visit Charges Inpatient E&M: 15366 Subs Hosp L2
[2025-04-26] MEDS: Glycerin/Hypromellose/PEG400 15 ml Bottle 1 DRP EACH EYE (20:59)
[2025-04-26] MEDS: 0.9% Saline Lock 10 ML Syringe IV (21:00)
[2025-04-27] VITALS (16 sets, daily range): BP systolic 131–155; BP diastolic 49–67; PULSE 77–91; RESP 12–18; TEMP 36.3–36.6; O2SAT 95–100; BMI 21.2; BMI 21.1
[2025-04-27 04:58] LABS: Hematocrit 34.2 % (37-47); Hemoglobin 10.5 g/dL (12.0-15.0); Immature Granulocytes Count 0.040 X10^3/uL (0.0-0.0); Mean Corp Hgb Conc 30.7 g/dL (32-36); Mean Corpuscular Volume 87.9 fL (81-99); Mean Platelet Vol. 12.0 fl (6.2-12.0); NRBC Flagged by Analyzer 0.4 % (0-5); Platelet Count 131 K/mm3 (150-450); RBC Distribution Width CV 16.8 % (11.6-14.6); RBC Distribution Width SD 52.9 fl (35.1-43.9); Red Blood Count 3.89 M/mm3 (4.2-5.4); White Blood Count 7.0 K/mm3 (4.4-11.0)
[2025-04-27 05:32] LABS: Anion Gap 14 (5-15); BUN 42 mg/dL (4-19); BUN/Creat Ratio 5.5 RATIO (10-20); Calcium,Total 8.4 mg/dL (7.6-11.0); Carbon Dioxide 22.9 mmol/L (21.0-32.0); Chloride 103 mmol/L (98-108); Estimated Creatinine Clearance 4.08 ml/min (50-250); Glucose 92 mg/dL (70-99); Potassium 4.0 mmol/L (3.3-5.1)
[2025-04-27] MEDS: 0.9% Normal Saline 1,000 ML IV.SOLN. 1000 ML OPERA.SITE (07:56)
[2025-04-27] MEDS: PureFlow B 2K Dialysis Soln 1 BAG 6 BAG PF (07:56)
[2025-04-27] MEDS: Budesonide Respules 0.5 MG/2 ML AMPUL.NEB. INHALATION ×2 (08:19→19:27)
[2025-04-27] MEDS: Albuterol 2.5 MG/3 ML VIAL.NEB. INHALATION ×3 (08:19→19:27)
--- NOTE | 2025-04-27 09:09 | PCM.PN.SRG ---
Subjective Subjective Patient is on dialysis currently. She is not responding much to verbal command. She does respond to pressure on her abdomen. She is tolerating clear liquids. Objective Data Objective Data Vital Signs: Vital Signs Temp Pulse Resp BP Pulse Ox O2 Del Method O2 Flow Rate 97.7 F L 77 14 139/57 H 95 Room Air 6 04/27/25 07:00 04/27/25 09:00 04/27/25 07:00 04/27/25 09:00 04/27/25 07:00 04/27/25 07:00 04/23/25 16:22 Oxygen Flow Rate (L/min) 6 Oxygen Delivery Method Room Air Weight: 119 lb 11.376 oz Body Mass Index (BMI) 21.2 Intake & Output: Intake and Output for Last 24 Hours 04/25/25 04/26/25 04/27/25 23:59 23:59 23:59 Intake Total 2115 / 2115 100 / 100 Output Total 1050 / 1050 Balance 1065 / 1065 100 / 100 Medical Nutrition Assessment Dietitian: Malnutrition Criteria Met Start: 04/23/25 15:00 Freq: Status: Active Protocol: Document 04/23/25 15:00 RMA (Rec: 04/23/25 15:00 RMA [id number]) Nutrition Malnutrition Evidence of Yes Malnutrition Exists Malnutrition (severe Chronic ): Evidenced By Suboptimal Energy Intake (Severe),Weight Loss (Severe), Physical Changes (Moderate),Physical Changes (Severe) Intake Problem Inadequate Oral Intake Etiology related to altered GI function/SBO Signs/Symptoms as evidenced by NPO Status Active Problem Clinical Problem Chronic Disease or Condition Related Malnutrition Etiology severe protein-calorie malnutrition in the context of chronic disease and debility/advanced age related to inadequate oral intake and altered GI function Signs/Symptoms as evidenced by BMI 19.3; ~11-13% unintentional weight loss x past 4-6 months; currently NPO and PO meeting less than 50-75% estimated nutrition needs x past 6 months; moderate muscle wasting in clavicle, face, arms and legs. Status Active Problem Recommendation Dietitian Recommend advance diet as tolerated to regular/no added Recommendations/ salt. Changes Will add PO Nepro as diet advanced from NPO. Consider nutrition support if unable to advance PO diet in 2-3 days. Lab / Micro Data 04/27/25 04:01 04/27/25 04:01 Labs: Laboratory Results - last 24 hr 04/27/25 04:01: WBC 7.0, RBC 3.89 L, Hgb 10.5 L, Hct 34.2 L, MCV 87.9, MCH 27.0, MCHC 30.7 L, RDW Std Deviation 52.9 H, RDW Coeff of Lizett 16.8 H, Plt Count 131 L, MPV 12.0, Immature Gran % (Auto) 0.600, Neut % (Auto) 70.4 H, Lymph % (Auto) 16.4 L, [place] % (Auto) 10.6 H, Eos % (Auto) 1.6, Baso % (Auto) 0.4, Absolute Neuts (auto) 4.9, Absolute Lymphs (auto) 1.14, Nucleated RBC % 0.4, Sodium 141, Potassium 4.0, Chloride 103, Carbon Dioxide 22.9, Anion Gap 14, BUN 42 H, Creatinine 7.67 H*, Estim Creat Clear Calc 4.08 L*, Est GFR (MDRD) Non-Af 5 L, BUN/Creatinine Ratio 5.5 L, Glucose 92, Calcium 8.4 Micro: Microbiology 04/23/25 01:02 Mucosa - Nose SARS-CoV-2, Influenza & RSV (PCR) - Final Radiography Diagnostic Testing: Radiology Impression Chest CT 04/26/25 07:19 IMPRESSION: Coronary artery calcification (CAC) is is present Airspace opacities in the lower lobes including a 3.2 x 5 x 4.4 cm mass in the right lower lobe may represent pneumonia or lung cancer. Bilateral small pleural effusions. Free air noted under the diaphragm. Reading Location: [facility] Physical Exam Const no apparent distress Resp normal respiratory effort GI soft to palpation and non-tender Assessment & Plan Assessment/Plan (1) Colonic mass: PLAN: Patient has postoperative day 4 from a right hemicolectomy. She is not responding much to verbal stimuli. She is currently having dialysis. She tolerated some clears while being fed so I will advance her to a full liquid diet. Javier Montiel MD Pager: [facility] [address] [place] [address], [address] [place] [address] Office:
--- NOTE | 2025-04-27 10:01 | PN_ITS ---
Subjective Subjective Patient seen and examined with her nurse by her bedside. She was having dialysis. She remains frail and weak, but was able to shake or nod her head in response to questions. She denied being in pain. SHe is on room air. Pathology reports still pending. Objective Data Objective Data Vital Signs: Vital Signs Temp Pulse Resp BP Pulse Ox O2 Del Method O2 Flow Rate 97.7 F L 80 16 151/52 H 100 Room Air 6 04/27/25 07:00 04/27/25 09:46 04/27/25 08:17 04/27/25 09:46 04/27/25 08:17 04/27/25 08:17 04/23/25 16:22 Oxygen Flow Rate (L/min) 6 Oxygen Delivery Method Room Air Weight: 119 lb 11.376 oz Body Mass Index (BMI) 21.2 Intake & Output: Intake and Output for Last 24 Hours 04/25/25 04/26/25 04/27/25 23:59 23:59 23:59 Intake Total 2115 / 2115 100 / 100 Output Total 1050 / 1050 Balance 1065 / 1065 100 / 100 Medical Nutrition Assessment Dietitian: Malnutrition Criteria Met Start: 04/23/25 15:00 Freq: Status: Active Protocol: Document 04/23/25 15:00 RMA (Rec: 04/23/25 15:00 RMA [id number]) Nutrition Malnutrition Evidence of Yes Malnutrition Exists Malnutrition (severe Chronic ): Evidenced By Suboptimal Energy Intake (Severe),Weight Loss (Severe), Physical Changes (Moderate),Physical Changes (Severe) Intake Problem Inadequate Oral Intake Etiology related to altered GI function/SBO Signs/Symptoms as evidenced by NPO Status Active Problem Clinical Problem Chronic Disease or Condition Related Malnutrition Etiology severe protein-calorie malnutrition in the context of chronic disease and debility/advanced age related to inadequate oral intake and altered GI function Signs/Symptoms as evidenced by BMI 19.3; ~11-13% unintentional weight loss x past 4-6 months; currently NPO and PO meeting less than 50-75% estimated nutrition needs x past 6 months; moderate muscle wasting in clavicle, face, arms and legs. Status Active Problem Recommendation Dietitian Recommend advance diet as tolerated to regular/no added Recommendations/ salt. Changes Will add PO Nepro as diet advanced from NPO. Consider nutrition support if unable to advance PO diet in 2-3 days. Lab / Micro Data 04/27/25 04:01 04/27/25 04:01 Labs: Laboratory Results - last 24 hr 04/27/25 04:01: WBC 7.0, RBC 3.89 L, Hgb 10.5 L, Hct 34.2 L, MCV 87.9, MCH 27.0, MCHC 30.7 L, RDW Std Deviation 52.9 H, RDW Coeff of Lizett 16.8 H, Plt Count 131 L, MPV 12.0, Immature Gran % (Auto) 0.600, Neut % (Auto) 70.4 H, Lymph % (Auto) 16.4 L, [place] % (Auto) 10.6 H, Eos % (Auto) 1.6, Baso % (Auto) 0.4, Absolute Neuts (auto) 4.9, Absolute Lymphs (auto) 1.14, Nucleated RBC % 0.4, Sodium 141, Potassium 4.0, Chloride 103, Carbon Dioxide 22.9, Anion Gap 14, BUN 42 H, C reatinine 7.67 H*, Estim Creat Clear Calc 4.08 L*, Est GFR (MDRD) Non-Af 5 L, B UN/Creatinine Ratio 5.5 L, Glucose 92, Calcium 8.4 Micro: Microbiology 04/23/25 01:02 Mucosa - Nose SARS-CoV-2, Influenza & RSV (PCR) - Final Physical Exam Const alert and no apparent distress Constitutional Narrative: Frail and weak. Orientation / Consciousness: lethargic HEENT normocephalic, head/scalp atraumatic and oropharynx normal Eyes EOMs intact bilaterally Neck no lymphadenopathy, supple and no JVD Lymph Lymphatic: no lymphadenopathy noted and no lymphedema noted Resp Resp Narrative: Mildly diminished breath sounds bibasilarly. No wheezes or crackles. Cardio regular rate, regular rhythm, S1 normal heart sound, S2 normal heart sound and no murmurs GI GI Narrative: intact abdominal binder. Mild generalised tenderness. Few bowel sounds. Auscultation: hypoactive bowel sounds Palpation: tender Positive for periumbilical Extremity normal capillary refill, no clubbing, cyanosis or edema and no calf tenderness General Extremity: no tenderness to palpation of joints or extremities Skin Skin Narrative: AV fistula in LUE General Skin Exam: no breakdown Neuro no focal motor deficits Neuro Narrative: frail, weak, lethargic Speech: speech abnormal Details: Positive for other (Aphasic) Motor Exam: general weakness Psych Mood & Affect: flat affect Assessment & Plan Assessment/Plan (1) Small bowel obstruction: (2) Intussusception: PLAN: Plan #Small bowel obstruction with intussusception * Patient admitted with a complaint of abdominal pain and found to have small bowel obstruction with intussusception per imaging done * Continue hydration with IV fluids. IV morphine prn * She had EKG done preop which showed sinus rhythm with occasional PVCs and possible left atrial enlargement with left axis deviation and right bundle branch block as well as evidence of lateral and inferior infarct age undetermined. She had a 2D echo done in June 2024 which showed EF of 60% with mild 1+ mitral valve insufficiency. She does not have any chest pain right now or any other such symptoms. Will therefore hold off on any further workup as patient is high risk in light of a history of heart disease and stroke and her advanced age. * Today is postop day 3 for diagnostic laparoscopy with exploratory laparotomy and right colectomy with anastomosis. * Surgery showed right colon intussusception with possible mass of the right colon. * Patient remains on clear liquid diet by general surgery. Management as per general surgery. * Continue hydration with IV fluids. * CT chest done for staging of possible cancer showed a 3.2 x 5 x 4.4cm mass in charlene right upper lobe which may represent pneumonia or lung cancer. * pathology report for the colonic mass is still pending. It will be helpful to get that back first to know if it is a primary mass as the lung mass may be due to mets * I spoke to Rona Barone of [place] [facility]. Since we do not have pathology results back we cannot effectively start treatment. She did work with patient information and will get the patient in within a week and a half once pathology results are back. * #Lung lock * CT chest shwoed 3.2 x 5 x 4.4cm right upper lobe mass, which may likely be malignant and possible mets from the colon mass. * discussed with oncology as above; she is to follow with oncology once the pathology results are in. * #ESRD: On dialysis. Nephrology on board. On sevelamer #History of stroke: On statin and plavix #Hypothyroidism: on synthroid #Dementia: on memantine and donepezil #Glaucoma: on timolol and and brinzolamide-brimonidine #Hypertension: on nifedipine DVT prophylaxis:lovenox Charges/Coding Visit Charges Inpatient E&M: 95910 Subs Hosp L2
[2025-04-27] MEDS: BIMATOPROST 2.5 ML DROPS LEFT EYE (10:45)
[2025-04-27] MEDS: Timolol 0.5% 5ML OPTH.BTL 1 DRP EACH EYE ×2 (10:45→22:18)
[2025-04-27] MEDS: Glycerin/Hypromellose/PEG400 15 ml Bottle 1 DRP EACH EYE (22:18)
[2025-04-28] VITALS (7 sets, daily range): BP systolic 132–156; BP diastolic 51–66; PULSE 80–94; RESP 12–21; TEMP 36.1–36.7; O2SAT 94–98
[2025-04-28 06:39] LABS: Hematocrit 38.6 % (37-47); Hemoglobin 11.8 g/dL (12.0-15.0); Immature Granulocytes Count 0.040 X10^3/uL (0.0-0.0); Mean Corp Hgb Conc 30.6 g/dL (32-36); Mean Corpuscular Volume 87.7 fL (81-99); Mean Platelet Vol. 12.3 fl (6.2-12.0); NRBC Flagged by Analyzer 0.3 % (0-5); Platelet Count 144 K/mm3 (150-450); RBC Distribution Width CV 17.0 % (11.6-14.6); RBC Distribution Width SD 53.7 fl (35.1-43.9); Red Blood Count 4.40 M/mm3 (4.2-5.4); White Blood Count 7.1 K/mm3 (4.4-11.0)
[2025-04-28 07:08] LABS: Anion Gap 13 (5-15); BUN 27 mg/dL (4-19); BUN/Creat Ratio 4.4 RATIO (10-20); Calcium,Total 8.7 mg/dL (7.6-11.0); Carbon Dioxide 26.0 mmol/L (21.0-32.0); Chloride 104 mmol/L (98-108); Estimated Creatinine Clearance 5.16 ml/min (50-250); Glucose 122 mg/dL (70-99); Potassium 3.7 mmol/L (3.3-5.1)
[2025-04-28] MEDS: Budesonide Respules 0.5 MG/2 ML AMPUL.NEB. INHALATION ×2 (07:30→19:05)
[2025-04-28] MEDS: Albuterol 2.5 MG/3 ML VIAL.NEB. INHALATION ×3 (07:30→19:05)
--- NOTE | 2025-04-28 08:14 | CT_ITS ---
PROCEDURE: BRAIN/HEAD WITHOUT CONTRAST 04/28/2025 REASON FOR EXAM: MENTAL STATUS CHANGES TECHNIQUE: Procedure Code: CTBR Modality: CT Procedure: BRAIN/HEAD WITHOUT CONTRAST Coronal and Sagittal reconstruction series were provided. One or more dose reduction techniques were used (e.g., Automated exposure control, adjustment of the mA and/or kV according to patient size, use of iterative reconstruction technique. RADIATION DOSE SUMMARY: CTDlvol: 44.99 mGy DLP: 779.24 mGycm COMPARISON: MRA brain 03/15/2023. FINDINGS: Brain: Extensive low density in the deep cerebral white matter most likely represents advanced chronic small vessel ischemic disease. No acute territorial infarction. No acute intracranial hemorrhage. No mass-effect or midline shift. No ventriculomegaly. CSF Spaces: Advanced generalized cerebral atrophy Sinuses/Mastoids: Clear at visualized levels Bones: No acute bony abnormalities CT/Brain/Head without Contrast IMPRESSION: No acute intracranial abnormalities. Reading Location: [id number]
--- NOTE | 2025-04-28 08:16 | PN.SURG_ITS ---
Subjective Subjective The patient's daughter reports that she tolerated fulls but she had to feed her she is still not interacting. Objective Data Objective Data Vital Signs: Vital Signs Temp Pulse Resp BP Pulse Ox O2 Del Method O2 Flow Rate 98.0 F 91 16 156/55 H 96 Room Air 6 04/28/25 02:45 04/28/25 02:45 04/28/25 02:45 04/28/25 02:45 04/28/25 02:45 04/28/25 03:00 04/23/25 16:22 Oxygen Flow Rate (L/min) 6 Oxygen Delivery Method Room Air Weight: 119 lb 0.794 oz Body Mass Index (BMI) 21.1 Intake & Output: Intake and Output for Last 24 Hours 04/26/25 04/27/25 04/28/25 23:59 23:59 23:59 Intake Total 220 / 220 100 / 100 Output Total 720 / 720 Balance -500 / -500 100 / 100 Medical Nutrition Assessment Dietitian: Malnutrition Criteria Met Start: 04/23/25 15:00 Freq: Status: Active Protocol: Document 04/23/25 15:00 RMA (Rec: 04/23/25 15:00 RMA [id number]) Nutrition Malnutrition Evidence of Yes Malnutrition Exists Malnutrition (severe Chronic ): Evidenced By Suboptimal Energy Intake (Severe),Weight Loss (Severe), Physical Changes (Moderate),Physical Changes (Severe) Intake Problem Inadequate Oral Intake Etiology related to altered GI function/SBO Signs/Symptoms as evidenced by NPO Status Active Problem Clinical Problem Chronic Disease or Condition Related Malnutrition Etiology severe protein-calorie malnutrition in the context of chronic disease and debility/advanced age related to inadequate oral intake and altered GI function Signs/Symptoms as evidenced by BMI 19.3; ~11-13% unintentional weight loss x past 4-6 months; currently NPO and PO meeting less than 50-75% estimated nutrition needs x past 6 months; moderate muscle wasting in clavicle, face, arms and legs. Status Active Problem Recommendation Dietitian Recommend advance diet as tolerated to regular/no added Recommendations/ salt. Changes Will add PO Nepro as diet advanced from NPO. Consider nutrition support if unable to advance PO diet in 2-3 days. Lab / Micro Data 04/28/25 05:40 04/28/25 05:40 Labs: Laboratory Results - last 24 hr 04/28/25 05:40: WBC 7.1, RBC 4.40, Hgb 11.8 L, Hct 38.6, MCV 87.7, MCH 26.8 L, M CHC 30.6 L, RDW Std Deviation 53.7 H, RDW Coeff of Lizett 17.0 H, Plt Count 144 L, MPV 12.3 H, Immature Gran % (Auto) 0.600, Neut % (Auto) 68.2, Lymph % (Auto) 18.8 L, [place] % (Auto) 10.5 H, Eos % (Auto) 1.6, Baso % (Auto) 0.3, Absolute Neuts (auto) 4.8, Absolute Lymphs (auto) 1.33, Nucleated RBC % 0.3, Sodium 143, Potassium 3.7, Chloride 104, Carbon Dioxide 26.0, Anion Gap 13, BUN 27 H, C reatinine 6.12 H, Estim Creat Clear Calc 5.16 L*, Est GFR (MDRD) Non-Af 6 L, B UN/Creatinine Ratio 4.4 L, Glucose 122 H, Calcium 8.7 Micro: Microbiology 04/23/25 01:02 Mucosa - Nose SARS-CoV-2, Influenza & RSV (PCR) - Final Physical Exam Const no apparent distress GI soft to palpation and non-tender Assessment & Plan Assessment/Plan (1) Colonic mass: PLAN: The patient is still not doing much in the way of interacting. She does not respond to verbal stimuli. I will order a CT of the brain to make sure she did not have a stroke during surgery. She does have a history of stroke in the past. Continue full liquids until she is able to feed herself. Javier Motniel MD Pager: [facility] [address] [place] [address], [address] [place] [address] Office:
[2025-04-28] MEDS: Timolol 0.5% 5ML OPTH.BTL 1 DRP EACH EYE ×2 (09:29→20:58)
[2025-04-28] MEDS: BIMATOPROST 2.5 ML DROPS LEFT EYE (09:30)
--- NOTE | 2025-04-28 11:16 | PN_ITS ---
Subjective Subjective Patient seen and examined with her nurse. She remains weak and lethargic. Unable to do review of systems. SHe has remained hemodynamically stable.CT of the brain done today showed no acute intracranial pathology. 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 Objective Data Objective Data Vital Signs: Vital Signs Temp Pulse Resp BP Pulse Ox O2 Del Method O2 Flow Rate 97.3 F L 92 16 141/51 H 98 Room Air 6 04/28/25 09:21 04/28/25 09:21 04/28/25 09:21 04/28/25 09:21 04/28/25 09:21 04/28/25 09:26 04/23/25 16:22 Oxygen Flow Rate (L/min) 6 Oxygen Delivery Method Room Air Weight: 119 lb 0.794 oz Body Mass Index (BMI) 21.1 Intake & Output: Intake and Output for Last 24 Hours 04/26/25 04/27/25 04/28/25 23:59 23:59 23:59 Intake Total 220 / 220 100 / 100 Output Total 720 / 720 Balance -500 / -500 100 / 100 Medical Nutrition Assessment Dietitian: Malnutrition Criteria Met Start: 04/23/25 15:00 Freq: Status: Active Protocol: Document 04/23/25 15:00 RMA (Rec: 04/23/25 15:00 RMA [id number]) Nutrition Malnutrition Evidence of Yes Malnutrition Exists Malnutrition (severe Chronic ): Evidenced By Suboptimal Energy Intake (Severe),Weight Loss (Severe), Physical Changes (Moderate),Physical Changes (Severe) Intake Problem Inadequate Oral Intake Etiology related to altered GI function/SBO Signs/Symptoms as evidenced by NPO Status Active Problem Clinical Problem Chronic Disease or Condition Related Malnutrition Etiology severe protein-calorie malnutrition in the context of chronic disease and debility/advanced age related to inadequate oral intake and altered GI function Signs/Symptoms as evidenced by BMI 19.3; ~11-13% unintentional weight loss x past 4-6 months; currently NPO and PO meeting less than 50-75% estimated nutrition needs x past 6 months; moderate muscle wasting in clavicle, face, arms and legs. Status Active Problem Recommendation Dietitian Recommend advance diet as tolerated to regular/no added Recommendations/ salt. Changes Will add PO Nepro as diet advanced from NPO. Consider nutrition support if unable to advance PO diet in 2-3 days. Lab / Micro Data 04/28/25 05:40 04/28/25 05:40 Labs: Laboratory Results - last 24 hr 04/28/25 05:40: WBC 7.1, RBC 4.40, Hgb 11.8 L, Hct 38.6, MCV 87.7, MCH 26.8 L, M CHC 30.6 L, RDW Std Deviation 53.7 H, RDW Coeff of Lizett 17.0 H, Plt Count 144 L, MPV 12.3 H, Immature Gran % (Auto) 0.600, Neut % (Auto) 68.2, Lymph % (Auto) 18.8 L, [place] % (Auto) 10.5 H, Eos % (Auto) 1.6, Baso % (Auto) 0.3, Absolute Neuts (auto) 4.8, Absolute Lymphs (auto) 1.33, Nucleated RBC % 0.3, Sodium 143, Potassium 3.7, Chloride 104, Carbon Dioxide 26.0, Anion Gap 13, BUN 27 H, C reatinine 6.12 H, Estim Creat Clear Calc 5.16 L*, Est GFR (MDRD) Non-Af 6 L, B UN/Creatinine Ratio 4.4 L, Glucose 122 H, Calcium 8.7 Micro: Microbiology 04/23/25 01:02 Mucosa - Nose SARS-CoV-2, Influenza & RSV (PCR) - Final Radiography Diagnostic Testing: Radiology Impression Brain CT 04/28/25 08:14 IMPRESSION: No acute intracranial abnormalities. Reading Location: [facility] Physical Exam Const alert and no apparent distress Constitutional Narrative: Frail and weak. Orientation / Consciousness: lethargic HEENT normocephalic, head/scalp atraumatic and oropharynx normal Eyes EOMs intact bilaterally Neck supple and no JVD Lymph Lymphatic: no lymphedema noted Resp Resp Narrative: Mildly diminished breath sounds bibasilarly. No wheezes or crackles. Cardio regular rate, regular rhythm, S1 normal heart sound, S2 normal heart sound and no murmurs GI GI Narrative: intact abdominal binder. Mild generalised tenderness. Few bowel sounds. Auscultation: hypoactive bowel sounds Palpation: tender Positive for periumbilical and rigid Extremity normal capillary refill, no clubbing, cyanosis or edema and no calf tenderness General Extremity: no tenderness to palpation of joints or extremities Skin Skin Narrative: AV fistula in LUE General Skin Exam: no breakdown Neuro Neuro Narrative: frail, weak, lethargic Motor Exam: general weakness Psych Mood & Affect: flat affect Assessment & Plan Assessment/Plan (1) Small bowel obstruction: (2) Intussusception: PLAN: Plan #Small bowel obstruction with intussusception * Patient admitted with a complaint of abdominal pain and found to have small bowel obstruction with intussusception per imaging done * Continue hydration with IV fluids. IV morphine prn * She had EKG done preop which showed sinus rhythm with occasional PVCs and possible left atrial enlargement with left axis deviation and right bundle branch block as well as evidence of lateral and inferior infarct age undetermined. She had a 2D echo done in June 2024 which showed EF of 60% with mild 1+ mitral valve insufficiency. She does not have any chest pain right now or any other such symptoms. Will therefore hold off on any further workup as patient is high risk in light of a history of heart disease and stroke and her advanced age. * Today is postop day 3 for diagnostic laparoscopy with exploratory laparotomy and right colectomy with anastomosis. * Surgery showed right colon intussusception with possible mass of the right colon. * Patient remains on clear liquid diet by general surgery. Management as per general surgery. * Continue hydration with IV fluids. * CT chest done for staging of possible cancer showed a 3.2 x 5 x 4.4cm mass in charlene right upper lobe which may represent pneumonia or lung cancer. 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 * I spoke to Rona Barone of [facility]. Since we do not have pathology results back we cannot effectively start treatment. She did work with patient information and will get the patient in within a week and a half once pathology results are back. * per oncology, they will do a PET scan on outpatient basis to evaluate and then determine treatment * #Lung mass * CT chest showed 3.2 x 5 x 4.4cm right upper lobe mass, which may likely be malignant and possible mets from the colon mass. * discussed with oncology as above; she is to follow with oncology once the pathology results are in. * * #Acute encephalopathy * Patient has been quite lethargic and minimally responsive for the last few days. CT of the brain done today however showed no evidence of any acute intracranial pathology * Does wake up intermittently and answer a few questions. * #ESRD: On dialysis. Nephrology on board. On sevelamer #History of stroke: On statin and plavix #Hypothyroidism: on synthroid #Dementia: on memantine and donepezil #Glaucoma: on timolol and and brinzolamide-brimonidine #Hypertension: on nifedipine DVT prophylaxis:lovenox Disposition: for dc back to SNF once medically stable Charges/Coding Visit Charges Inpatient E&M: 38364 Subs Hosp L2
[2025-04-28] MEDS: Glycerin/Hypromellose/PEG400 15 ml Bottle 1 DRP EACH EYE (20:58)
[2025-04-29] VITALS (8 sets, daily range): BP systolic 121–139; BP diastolic 50–65; PULSE 78–94; RESP 15–18; TEMP 36.5–36.9; O2SAT 96–98
[2025-04-29 07:01] LABS: Hematocrit 37.4 % (37-47); Hemoglobin 11.5 g/dL (12.0-15.0); Immature Granulocytes Count 0.040 X10^3/uL (0.0-0.0); Mean Corp Hgb Conc 30.7 g/dL (32-36); Mean Corpuscular Volume 87.6 fL (81-99); Mean Platelet Vol. 13.0 fl (6.2-12.0); NRBC Flagged by Analyzer 0.3 % (0-5); Platelet Count 152 K/mm3 (150-450); RBC Distribution Width CV 16.9 % (11.6-14.6); RBC Distribution Width SD 52.6 fl (35.1-43.9); Red Blood Count 4.27 M/mm3 (4.2-5.4); White Blood Count 7.9 K/mm3 (4.4-11.0)
[2025-04-29] MEDS: Budesonide Respules 0.5 MG/2 ML AMPUL.NEB. INHALATION ×2 (07:02→19:02)
[2025-04-29] MEDS: Albuterol 2.5 MG/3 ML VIAL.NEB. INHALATION ×3 (07:02→19:02)
[2025-04-29 07:24] LABS: Anion Gap 14 (5-15); BUN 40 mg/dL (4-19); BUN/Creat Ratio 4.9 RATIO (10-20); Calcium,Total 8.5 mg/dL (7.6-11.0); Carbon Dioxide 24.6 mmol/L (21.0-32.0); Chloride 104 mmol/L (98-108); Estimated Creatinine Clearance 3.88 ml/min (50-250); Glucose 100 mg/dL (70-99); Potassium 4.1 mmol/L (3.3-5.1)
--- NOTE | 2025-04-29 07:44 | PN.SURG_ITS ---
Subjective Subjective Patient evaluated resting comfortably in bed. She is very lethargic today. When asked if she is having pain, she shakes her head no. Patient's daughter is not present. Per nursing notes, patient had been on full liquids and needs full supervision for feeds. No documented bowel movement at this time. Objective Data Objective Data Vital Signs: Vital Signs Temp Pulse Resp BP Pulse Ox O2 Del Method O2 Flow Rate 98.4 F 82 17 139/58 H 96 Room Air 6 04/29/25 02:00 04/29/25 07:20 04/29/25 07:20 04/29/25 02:00 04/29/25 02:00 04/29/25 03:00 04/23/25 16:22 Oxygen Flow Rate (L/min) 6 Oxygen Delivery Method Room Air Weight: 119 lb 0.794 oz Body Mass Index (BMI) 21.1 Intake & Output: Intake and Output for Last 24 Hours 04/27/25 04/28/25 04/29/25 23:59 23:59 23:59 Intake Total 220 / 220 110 / 110 0 / 0 Output Total 720 / 720 Balance -500 / -500 110 / 110 0 / 0 Medical Nutrition Assessment Dietitian: Malnutrition Criteria Met Start: 04/23/25 15:00 Freq: Status: Active Protocol: Document 04/23/25 15:00 RMA (Rec: 04/23/25 15:00 RMA [id number]) Nutrition Malnutrition Evidence of Yes Malnutrition Exists Malnutrition (severe Chronic ): Evidenced By Suboptimal Energy Intake (Severe),Weight Loss (Severe), Physical Changes (Moderate),Physical Changes (Severe) Intake Problem Inadequate Oral Intake Etiology related to altered GI function/SBO Signs/Symptoms as evidenced by NPO Status Active Problem Clinical Problem Chronic Disease or Condition Related Malnutrition Etiology severe protein-calorie malnutrition in the context of chronic disease and debility/advanced age related to inadequate oral intake and altered GI function Signs/Symptoms as evidenced by BMI 19.3; ~11-13% unintentional weight loss x past 4-6 months; currently NPO and PO meeting less than 50-75% estimated nutrition needs x past 6 months; moderate muscle wasting in clavicle, face, arms and legs. Status Active Problem Recommendation Dietitian Recommend advance diet as tolerated to regular/no added Recommendations/ salt. Changes Will add PO Nepro as diet advanced from NPO. Consider nutrition support if unable to advance PO diet in 2-3 days. Lab / Micro Data 04/29/25 06:28 04/29/25 06:28 Labs: Laboratory Results - last 24 hr 04/29/25 06:28: WBC 7.9, RBC 4.27, Hgb 11.5 L, Hct 37.4, MCV 87.6, MCH 26.9 L, M CHC 30.7 L, RDW Std Deviation 52.6 H, RDW Coeff of Lizett 16.9 H, Plt Count 152, M PV 13.0 H, Immature Gran % (Auto) 0.500, Neut % (Auto) 66.3, Lymph % (Auto) 18.9 L, [place] % (Auto) 11.3 H, Eos % (Auto) 2.2, Baso % (Auto) 0.8, Absolute Neuts (auto) 5.2, Absolute Lymphs (auto) 1.49, Nucleated RBC % 0.3, Sodium 143, Potassium 4.1, Chloride 104, Carbon Dioxide 24.6, Anion Gap 14, BUN 40 H, C reatinine 8.14 H*, Estim Creat Clear Calc 3.88 L*, Est GFR (MDRD) Non-Af 4 L, B UN/Creatinine Ratio 4.9 L, Glucose 100 H, Calcium 8.5 Micro: Microbiology 04/23/25 01:02 Mucosa - Nose SARS-CoV-2, Influenza & RSV (PCR) - Final Radiography Diagnostic Testing: Radiology Impression Brain CT 04/28/25 08:14 IMPRESSION: No acute intracranial abnormalities. Reading Location: [facility] Physical Exam GI GI Narrative: Abdomen- slightly distended, soft. Hypoactive bowel sounds. Incision c/d/i. No erythema or infection noted. Assessment & Plan Assessment/Plan (1) Colonic mass: (2) Ileus: PLAN: Plan I am following this patient in conjunction with Dr. Way. He will independently evaluate this patient. Labs reviewed. Brain CT performed yesterday due to continued lethargy and demonstrated no acute abnormalities Pathology returned and demonstrated Mucinous adenocarcinoma, moderately differentiated, of the ascending colon Continue on full liquids until more alert Recommend aspiration precautions Unsure of baseline of patient. May consider palliative medicine consult Continue to work with therapy Will order KUB to assess bowel status We will continue to monitor this patient Charges/Coding Visit Charges Inpatient E&M: 27646 Subs Hosp L1 (post-op)
--- NOTE | 2025-04-29 09:24 | CASEMGMT ---
[facility]. Nina Trejo DC Planning Asst
--- NOTE | 2025-04-29 09:25 | RAD_ITS ---
PROCEDURE: ABDOMEN SINGLE VIEW (PORTABLE) 04/29/2025 REASON FOR EXAM: ILEUS TECHNIQUE: Procedure Code: RADABD_P Modality: DX Procedure: ABDOMEN SINGLE VIEW (PORTABLE) COMPARISON: Previous examination dated April 23, 2025 FINDINGS: Bowel gas: Dilated loops of small bowel likely reflective of ileus. Paucity of gas distally. No free air. Status post Calcifications: None Bones: Stable Other: Postsurgical changes in the abdomen related to midline incision and recent surgery. RAD/Abdomen Single View (Portable) IMPRESSION: Dilated loops of small bowel likely reflective of postoperative ileus. Reading Location: [id number]
--- NOTE | 2025-04-29 10:28 | CASEMGMT ---
Social Work- SW met with pt and pt dtr to check-in and offer support. SW introduced self and role. Pt dtr droppering clear ensure into pt mouth, as pt lie with eyes closed, unresponsive to SW voice or discussion. Pt dtr reports that she is uncertain what indicators or markers pt will need to reach to be d/c, but reports that staff has been informative and helpful during pt stay. SW offered support. SW reached out to hospitalist to confirm plan of care. SW remains available to follow. CHRISTIANO Napoles
--- NOTE | 2025-04-29 10:29 | PN.HOSP_ITS ---
Subjective Subjective No issues overnight, her daughter is in the room and states that she has not been waking up for the last 2 days or so and is not eating Objective Data Objective Data Vital Signs: Vital Signs Temp Pulse Resp BP Pulse Ox O2 Del Method O2 Flow Rate 97.7 F L 94 18 127/51 H 97 Room Air 6 04/29/25 08:09 04/29/25 08:09 04/29/25 08:09 04/29/25 08:09 04/29/25 08:09 04/29/25 08:12 04/23/25 16:22 Oxygen Flow Rate (L/min) 6 Oxygen Delivery Method Room Air Weight: 119 lb 0.794 oz Body Mass Index (BMI) 21.1 Intake & Output: Intake and Output for Last 24 Hours 04/28/25 04/29/25 04/30/25 03:59 03:59 03:59 Intake Total 220 / 220 110 / 110 0 / 0 Output Total 720 / 720 Balance -500 / -500 110 / 110 0 / 0 Medical Nutrition Assessment Dietitian: Malnutrition Criteria Met Start: 04/23/25 15:00 Freq: Status: Active Protocol: Document 04/23/25 15:00 RMA (Rec: 04/23/25 15:00 RMA [id number]) Nutrition Malnutrition Evidence of Yes Malnutrition Exists Malnutrition (severe Chronic ): Evidenced By Suboptimal Energy Intake (Severe),Weight Loss (Severe), Physical Changes (Moderate),Physical Changes (Severe) Intake Problem Inadequate Oral Intake Etiology related to altered GI function/SBO Signs/Symptoms as evidenced by NPO Status Active Problem Clinical Problem Chronic Disease or Condition Related Malnutrition Etiology severe protein-calorie malnutrition in the context of chronic disease and debility/advanced age related to inadequate oral intake and altered GI function Signs/Symptoms as evidenced by BMI 19.3; ~11-13% unintentional weight loss x past 4-6 months; currently NPO and PO meeting less than 50-75% estimated nutrition needs x past 6 months; moderate muscle wasting in clavicle, face, arms and legs. Status Active Problem Recommendation Dietitian Recommend advance diet as tolerated to regular/no added Recommendations/ salt. Changes Will add PO Nepro as diet advanced from NPO. Consider nutrition support if unable to advance PO diet in 2-3 days. Lab / Micro Data 04/29/25 06:28 04/29/25 06:28 Labs: Laboratory Results - last 24 hr 04/29/25 06:28: WBC 7.9, RBC 4.27, Hgb 11.5 L, Hct 37.4, MCV 87.6, MCH 26.9 L, M CHC 30.7 L, RDW Std Deviation 52.6 H, RDW Coeff of Lizett 16.9 H, Plt Count 152, M PV 13.0 H, Immature Gran % (Auto) 0.500, Neut % (Auto) 66.3, Lymph % (Auto) 18.9 L, [place] % (Auto) 11.3 H, Eos % (Auto) 2.2, Baso % (Auto) 0.8, Absolute Neuts (auto) 5.2, Absolute Lymphs (auto) 1.49, Nucleated RBC % 0.3, Sodium 143, Potassium 4.1, Chloride 104, Carbon Dioxide 24.6, Anion Gap 14, BUN 40 H, C reatinine 8.14 H*, Estim Creat Clear Calc 3.88 L*, Est GFR (MDRD) Non-Af 4 L, B UN/Creatinine Ratio 4.9 L, Glucose 100 H, Calcium 8.5 Micro: Microbiology 04/23/25 01:02 Mucosa - Nose SARS-CoV-2, Influenza & RSV (PCR) - Final Radiography Diagnostic Testing: Radiology Impression KUB X-Ray 04/29/25 09:25 IMPRESSION: Dilated loops of small bowel likely reflective of postoperative ileus. Reading Location: [facility] Physical Exam Narrative General: Sleeping, does have some awakening to voice and stimuli HEENT: Atraumatic, PERRLA, normocephalic Oral: Moist Mucosa Neck: Supple, No JVD Lungs: Diminished, Normal air movement, No rhonchi, No wheeze, No rales Cardiovascular: Regular rate, Regular Rhythm, Normal S1, Normal S2, No murmurs Abdomen: Soft, Non Tender, Non-Distended, No Hepato-splenomegaly, dressing CDI Extremities: No edema, Capillary Refill Less than 3 Seconds Skin: No rashes, No breakdown Neurological: Does not awaken to follow exam Psych/Mental Status: Does not awaken for evaluation Assessment & Plan Assessment/Plan (1) Small bowel obstruction: (2) Intussusception: PLAN: Plan #Small bowel obstruction with intussusception * Patient admitted with a complaint of abdominal pain and found to have small bowel obstruction with intussusception per imaging done * Continue hydration with IV fluids. IV morphine prn * She had EKG done preop which showed sinus rhythm with occasional PVCs and possible left atrial enlargement with left axis deviation and right bundle branch block as well as evidence of lateral and inferior infarct age undetermined. She had a 2D echo done in June 2024 which showed EF of 60% with mild 1+ mitral valve insufficiency. She does not have any chest pain right now or any other such symptoms. Will therefore hold off on any further workup as patient is high risk in light of a history of heart disease and stroke and her advanced age. * Today is postop day 3 for diagnostic laparoscopy with exploratory laparotomy and right colectomy with anastomosis. * Surgery showed right colon intussusception with possible mass of the right colon. * Patient remains on clear liquid diet by general surgery. Management as per general surgery. * Continue hydration with IV fluids. * CT chest done for staging of possible cancer showed a 3.2 x 5 x 4.4cm mass in charlene right upper lobe which may represent pneumonia or lung cancer. 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 * I spoke to Rona Barone of [facility]. Since we do not have pathology results back we cannot effectively start treatment. She did work with patient information and will get the patient in within a week and a half once pathology results are back. * per oncology, they will do a PET scan on outpatient basis to evaluate and then determine treatment 04/29/2025: I did 25-minute conversation with the daughter at bedside about advance care planning in regards to prognosis and treatment as well as the differences between palliative care and hospice care. They do not think that they would like to proceed with any type of chemotherapy or radiation therapy and they are concerned with her not eating, I discussed with her that it 89 years old with a history of dementia that she would not be a candidate for feeding tubes so she is going to discuss with the rest of her family to decide whether or not we proceed with palliative care at the [facility] or proceed with hospice care #Lung mass * CT chest showed 3.2 x 5 x 4.4cm right upper lobe mass, which may likely be malignant and possible mets from the colon mass. * discussed with oncology as above; she is to follow with oncology once the pathology results are in. #Acute encephalopathy * Patient has been quite lethargic and minimally responsive for the last few days. CT of the brain done today however showed no evidence of any acute intracranial pathology * Does wake up intermittently and answer a few questions. 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 Nephrology on board. On sevelamer #History of stroke: On statin and plavix #Hypothyroidism: on synthroid #Dementia: on memantine and donepezil #Glaucoma: on timolol and and brinzolamide-brimonidine #Hypertension: on nifedipine DVT: Lovenox Charges/Coding Multi Select Codes Visit Charges Visit Charges: 66199 Subs Hosp L2 Hospitalists' Procedures Procedures: 57519 Advncd Care Plan 30 Min
[2025-04-29] MEDS: Timolol 0.5% 5ML OPTH.BTL 1 DRP EACH EYE ×2 (10:59→22:20)
[2025-04-29] MEDS: BIMATOPROST 2.5 ML DROPS LEFT EYE (11:03)
[2025-04-29] MEDS: Glycerin/Hypromellose/PEG400 15 ml Bottle 1 DRP EACH EYE (22:19)
[2025-04-30] VITALS (13 sets, daily range): BP systolic 115–160; BP diastolic 53–78; PULSE 62–99; RESP 14–17; TEMP 36.2–37; O2SAT 95–100; BMI 21.1; BMI 20.9
[2025-04-30 06:14] LABS: Hematocrit 36.8 % (37-47); Hemoglobin 11.5 g/dL (12.0-15.0); Immature Granulocytes Count 0.030 X10^3/uL (0.0-0.0); Mean Corp Hgb Conc 31.3 g/dL (32-36); Mean Corpuscular Volume 85.0 fL (81-99); Mean Platelet Vol. 12.9 fl (6.2-12.0); NRBC Flagged by Analyzer 0.6 % (0-5); Platelet Count 164 K/mm3 (150-450); RBC Distribution Width CV 17.0 % (11.6-14.6); RBC Distribution Width SD 51.9 fl (35.1-43.9); Red Blood Count 4.33 M/mm3 (4.2-5.4); White Blood Count 7.0 K/mm3 (4.4-11.0)
[2025-04-30 06:46] LABS: Anion Gap 18 (5-15); BUN 54 mg/dL (4-19); BUN/Creat Ratio 5.9 RATIO (10-20); Calcium,Total 8.3 mg/dL (7.6-11.0); Carbon Dioxide 22.5 mmol/L (21.0-32.0); Chloride 103 mmol/L (98-108); Estimated Creatinine Clearance 3.47 ml/min (50-250); Glucose 93 mg/dL (70-99); Potassium 4.4 mmol/L (3.3-5.1)
[2025-04-30] MEDS: Budesonide Respules 0.5 MG/2 ML AMPUL.NEB. INHALATION (06:54)
[2025-04-30] MEDS: Albuterol 2.5 MG/3 ML VIAL.NEB. INHALATION ×2 (06:54→13:44)
[2025-04-30] MEDS: MorphINE SOLN 10 MG/0.5 ML PO.SYRINGE 5 MG SL (08:49)
[2025-04-30] MEDS: BIMATOPROST 2.5 ML DROPS LEFT EYE (08:51)
--- NOTE | 2025-04-30 08:52 | PN.HOSP_ITS ---
Subjective Subjective Remains unchanged from yesterday, still very minimally interactive Objective Data Objective Data Vital Signs: Vital Signs Temp Pulse Resp BP Pulse Ox O2 Del Method O2 Flow Rate 98.6 F 99 17 115/61 97 Room Air 6 04/30/25 08:00 04/30/25 08:00 04/30/25 08:00 04/30/25 08:00 04/30/25 08:00 04/30/25 08:00 04/23/25 16:22 Oxygen Flow Rate (L/min) 6 Oxygen Delivery Method Room Air Weight: 119 lb 0.794 oz Body Mass Index (BMI) 21.1 Intake & Output: Intake and Output for Last 24 Hours 04/29/25 04/30/25 05/01/25 03:59 03:59 03:59 Intake Total 110 / 110 0 / 0 50 / 50 Balance 110 / 110 0 / 0 50 / 50 Medical Nutrition Assessment Dietitian: Malnutrition Criteria Met Start: 04/23/25 15:00 Freq: Status: Active Protocol: Document 04/29/25 13:59 PAO (Rec: 04/29/25 13:59 PAO [id number]) Nutrition Malnutrition Evidence of Yes Malnutrition Exists Malnutrition (severe Chronic ): Evidenced By Suboptimal Energy Intake (Severe),Weight Loss (Severe), Physical Changes (Moderate) Intake Problem Inadequate Oral Intake Status Inactive Problem Clinical Problem Chronic Disease or Condition Related Malnutrition Etiology severe protein-calorie malnutrition in the context of chronic disease and debility/advanced age related to inadequate oral intake and altered GI function Signs/Symptoms as evidenced by BMI 21.1; ~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 Status Active Problem Recommendation Dietitian Recommend advance diet as tolerated to regular/no added Recommendations/ salt. Changes Will change Ensure Clear to Nepro for increased nutrition if consumed. Consider nutrition support d/t continued lethargy and poor po intake to help prevent further decline in nutritional status. Lab / Micro Data 04/30/25 05:45 04/30/25 05:45 Labs: Laboratory Results - last 24 hr 04/30/25 05:45: WBC 7.0, RBC 4.33, Hgb 11.5 L, Hct 36.8 L, MCV 85.0, MCH 26.6 L, MCHC 31.3 L, RDW Std Deviation 51.9 H, RDW Coeff of Lizett 17.0 H, Plt Count 164, M PV 12.9 H, Immature Gran % (Auto) 0.400, Neut % (Auto) 63.3, Lymph % (Auto) 19.3, [place] % (Auto) 14.5 H, Eos % (Auto) 1.9, Baso % (Auto) 0.6, Absolute Neuts (auto) 4.4, Absolute Lymphs (auto) 1.35, Nucleated RBC % 0.6, Sodium 144, Potassium 4.4, Chloride 103, Carbon Dioxide 22.5, Anion Gap 18 H, BUN 54 H, C reatinine 9.10 H*, Estim Creat Clear Calc 3.47 L*, Est GFR (MDRD) Non-Af 4 L, B UN/Creatinine Ratio 5.9 L, Glucose 93, Calcium 8.3 Micro: Microbiology 04/23/25 01:02 Mucosa - Nose SARS-CoV-2, Influenza & RSV (PCR) - Final Radiography Diagnostic Testing: Radiology Impression KUB X-Ray 04/29/25 09:25 IMPRESSION: Dilated loops of small bowel likely reflective of postoperative ileus. Reading Location: [facility] Physical Exam Narrative General: Sleeping, does have some awakening to voice and stimuli HEENT: Atraumatic, PERRLA, normocephalic Oral: Moist Mucosa Neck: Supple, No JVD Lungs: Diminished, Normal air movement, No rhonchi, No wheeze, No rales Cardiovascular: Regular rate, Regular Rhythm, Normal S1, Normal S2, No murmurs Abdomen: Soft, Non Tender, Non-Distended, No Hepato-splenomegaly, dressing CDI Extremities: No edema, Capillary Refill Less than 3 Seconds Skin: No rashes, No breakdown Neurological: Does not awaken to follow exam Psych/Mental Status: Does not awaken for evaluation Assessment & Plan Assessment/Plan (1) Small bowel obstruction: (2) Intussusception: PLAN: Plan #Small bowel obstruction with intussusception * Patient admitted with a complaint of abdominal pain and found to have small bowel obstruction with intussusception per imaging done * Continue hydration with IV fluids. IV morphine prn * She had EKG done preop which showed sinus rhythm with occasional PVCs and possible left atrial enlargement with left axis deviation and right bundle branch block as well as evidence of lateral and inferior infarct age undetermined. She had a 2D echo done in June 2024 which showed EF of 60% with mild 1+ mitral valve insufficiency. She does not have any chest pain right now or any other such symptoms. Will therefore hold off on any further workup as patient is high risk in light of a history of heart disease and stroke and her advanced age. * Today is postop day 3 for diagnostic laparoscopy with exploratory laparotomy and right colectomy with anastomosis. * Surgery showed right colon intussusception with possible mass of the right colon. * Patient remains on clear liquid diet by general surgery. Management as per general surgery. * Continue hydration with IV fluids. * CT chest done for staging of possible cancer showed a 3.2 x 5 x 4.4cm mass in charlene right upper lobe which may represent pneumonia or lung cancer. 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 * I spoke to Rona Barone of [facility]. Since we do not have pathology results back we cannot effectively start treatment. She did work with patient information and will get the patient in within a week and a half once pathology results are back. * per oncology, they will do a PET scan on outpatient basis to evaluate and then determine treatment 04/29/2025: I did 25-minute conversation with the daughter at bedside about advance care planning in regards to prognosis and treatment as well as the differences between palliative care and hospice care. They do not think that they would like to proceed with any type of chemotherapy or radiation therapy and they are concerned with her not eating, I discussed with her that it 89 years old with a history of dementia that she would not be a candidate for feeding tubes so she is going to discuss with the rest of her family to decide whether or not we proceed with palliative care at the [facility] or proceed with hospice care 04/30/2025: Will transition to Roxanol p.o. and consult palliative care. The daughter who is POA at bedside stated that she had spoken with her family and that they would not want to pursue any oncological workup or treatment #Lung mass * CT chest showed 3.2 x 5 x 4.4cm right upper lobe mass, which may likely be malignant and possible mets from the colon mass. * discussed with oncology as above; she is to follow with oncology once the pathology results are in. #Acute metabolic encephalopathy * Patient has been quite lethargic and minimally responsive for the last few days. CT of the brain done today however showed no evidence of any acute intracranial pathology * Does wake up intermittently and answer a few questions. 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 Nephrology on board. On sevelamer #History of stroke: On statin and plavix #Hypothyroidism: on synthroid #Dementia: on memantine and donepezil #Glaucoma: on timolol and and brinzolamide-brimonidine #Hypertension: on nifedipine DVT: Lovenox Charges/Coding Visit Charges Inpatient E&M: 29682 Subs Hosp L2
[2025-04-30] MEDS: Timolol 0.5% 5ML OPTH.BTL 1 DRP EACH EYE (08:54)
--- NOTE | 2025-04-30 08:56 | PN.RENAL_ITS ---
Subjective Subjective seen on dialysis, pt moaning, abdominal pain with palpation. Lethargic, on pain medication. Spoke with nursing staff and pt natalie Mead. Objective Data Objective Data Vital Signs: Vital Signs Temp Pulse Resp BP Pulse Ox O2 Del Method O2 Flow Rate 98.6 F 99 17 115/61 97 Room Air 6 04/30/25 08:00 04/30/25 08:00 04/30/25 08:00 04/30/25 08:00 04/30/25 08:00 04/30/25 08:00 04/23/25 16:22 Oxygen Flow Rate (L/min) 6 Oxygen Delivery Method Room Air Weight: 54 kg Body Mass Index (BMI) 21.1 Intake & Output: Intake and Output for Last 24 Hours 04/28/25 04/29/25 04/30/25 23:59 23:59 23:59 Intake Total 110 / 110 0 / 0 50 / 50 Balance 110 / 110 0 / 0 50 / 50 Medical Nutrition Assessment Dietitian: Malnutrition Criteria Met Start: 04/23/25 15:00 Freq: Status: Active Protocol: Document 04/29/25 13:59 PAO (Rec: 04/29/25 13:59 PAO [id number]) Nutrition Malnutrition Evidence of Yes Malnutrition Exists Malnutrition (severe Chronic ): Evidenced By Suboptimal Energy Intake (Severe),Weight Loss (Severe), Physical Changes (Moderate) Intake Problem Inadequate Oral Intake Status Inactive Problem Clinical Problem Chronic Disease or Condition Related Malnutrition Etiology severe protein-calorie malnutrition in the context of chronic disease and debility/advanced age related to inadequate oral intake and altered GI function Signs/Symptoms as evidenced by BMI 21.1; ~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 Status Active Problem Recommendation Dietitian Recommend advance diet as tolerated to regular/no added Recommendations/ salt. Changes Will change Ensure Clear to Nepro for increased nutrition if consumed. Consider nutrition support d/t continued lethargy and poor po intake to help prevent further decline in nutritional status. Lab / Micro Data 04/30/25 05:45 04/30/25 05:45 Labs: Laboratory Results - last 24 hr 04/30/25 05:45: WBC 7.0, RBC 4.33, Hgb 11.5 L, Hct 36.8 L, MCV 85.0, MCH 26.6 L, MCHC 31.3 L, RDW Std Deviation 51.9 H, RDW Coeff of Lizett 17.0 H, Plt Count 164, M PV 12.9 H, Immature Gran % (Auto) 0.400, Neut % (Auto) 63.3, Lymph % (Auto) 19.3, [place] % (Auto) 14.5 H, Eos % (Auto) 1.9, Baso % (Auto) 0.6, Absolute Neuts (auto) 4.4, Absolute Lymphs (auto) 1.35, Nucleated RBC % 0.6, Sodium 144, Potassium 4.4, Chloride 103, Carbon Dioxide 22.5, Anion Gap 18 H, BUN 54 H, C reatinine 9.10 H*, Estim Creat Clear Calc 3.47 L*, Est GFR (MDRD) Non-Af 4 L, B UN/Creatinine Ratio 5.9 L, Glucose 93, Calcium 8.3 Micro: Microbiology 04/23/25 01:02 Mucosa - Nose SARS-CoV-2, Influenza & RSV (PCR) - Final Radiography Diagnostic Testing: Radiology Impression KUB X-Ray 04/29/25 09:25 IMPRESSION: Dilated loops of small bowel likely reflective of postoperative ileus. Reading Location: [facility] Physical Exam Const Constitutional Narrative: dementia, poor historian, moaning, lethargic Orientation / Consciousness: confused Resp clear to auscultation bilaterally Cardio regular rate GI Palpation: tender Extremity no clubbing, cyanosis or edema Assessment & Plan Assessment/Plan (1) End stage renal disease on dialysis: PLAN: dialysis TTS, currently on dialysis. Condition deteriorating. Lethargic, prognosis poor. Would recommend hospice. Spoke with pt natalie Mead (2) Dementia: PLAN: chronic, ECF resident (3) Hypertension: PLAN: stable (4) Small bowel obstruction: PLAN: surgery mgmt
[2025-04-30] MEDS: 0.9% Normal Saline 1,000 ML IV.SOLN. 1000 ML OPERA.SITE (09:16)
[2025-04-30] MEDS: PureFlow B 2K Dialysis Soln 1 BAG 6 BAG PF (09:17)
[2025-04-30] MEDS: 0.9% Saline Lock 10 ML Syringe IV (09:17)
--- NOTE | 2025-04-30 09:44 | PCM.PN.SRG ---
Subjective Subjective Patient evaluated resting comfortably in bed. She was a little more alert laying in bed. She was currently receiving dialysis treatment. Patient unable to answer questions appropriatly during my visit. No bowel movement according to nursing notes. Objective Data Objective Data Vital Signs: Vital Signs Temp Pulse Resp BP Pulse Ox O2 Del Method O2 Flow Rate 98 F 87 14 138/68 H 95 Room Air 6 04/30/25 08:55 04/30/25 09:30 04/30/25 08:55 04/30/25 09:30 04/30/25 08:55 04/30/25 08:55 04/23/25 16:22 Oxygen Flow Rate (L/min) 6 Oxygen Delivery Method Room Air Weight: 119 lb 0.794 oz Body Mass Index (BMI) 21.1 Intake & Output: Intake and Output for Last 24 Hours 04/28/25 04/29/25 04/30/25 23:59 23:59 23:59 Intake Total 110 / 110 0 / 0 50 / 50 Balance 110 / 110 0 / 0 50 / 50 Medical Nutrition Assessment Dietitian: Malnutrition Criteria Met Start: 04/23/25 15:00 Freq: Status: Active Protocol: Document 04/29/25 13:59 PAO (Rec: 04/29/25 13:59 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 Status Active Problem Recommendation Dietitian Recommend advance diet as tolerated to regular/no added Recommendations/ salt. Changes Will change Ensure Clear to Nepro for increased nutrition if consumed. Consider nutrition support d/t continued lethargy and poor po intake to help prevent further decline in nutritional status. Lab / Micro Data 04/30/25 05:45 04/30/25 05:45 Labs: Laboratory Results - last 24 hr 04/30/25 05:45: WBC 7.0, RBC 4.33, Hgb 11.5 L, Hct 36.8 L, MCV 85.0, MCH 26.6 L, MCHC 31.3 L, RDW Std Deviation 51.9 H, RDW Coeff of Lizett 17.0 H, Plt Count 164, MPV 12.9 H, Immature Gran % (Auto) 0.400, Neut % (Auto) 63.3, Lymph % (Auto) 19.3, [place] % (Auto) 14.5 H, Eos % (Auto) 1.9, Baso % (Auto) 0.6, Absolute Neuts (auto) 4.4, Absolute Lymphs (auto) 1.35, Nucleated RBC % 0.6, Sodium 144, Potassium 4.4, Chloride 103, Carbon Dioxide 22.5, Anion Gap 18 H, BUN 54 H, Creatinine 9.10 H*, Estim Creat Clear Calc 3.47 L*, Est GFR (MDRD) Non-Af 4 L, BUN/Creatinine Ratio 5.9 L, Glucose 93, Calcium 8.3 Micro: Microbiology 04/23/25 01:02 Mucosa - Nose SARS-CoV-2, Influenza & RSV (PCR) - Final Radiography Diagnostic Testing: Radiology Impression KUB X-Ray 04/29/25 09:25 IMPRESSION: Dilated loops of small bowel likely reflective of postoperative ileus. Reading Location: [facility] Physical Exam Const alert GI GI Narrative: Abdomen- soft, nontender. Dressing was removed from incision. Incision c/d/i. No erythema or infection noted. Hypoactive bowel sounds. Assessment & Plan Assessment/Plan (1) Ileus: (2) Colonic mass: PLAN: Plan I am following this patient in conjunction with Dr. Way. He will also evaluate this patient. Labs reviewed May leave binder open while laying in bed Continued ileus Patient on full liquids. Patient not alert enough to advance to regular diet. May need to consider TPN pending family meeting. Family to have a meeting with palliative care today to discuss ongoing treatment plan versus Hospice Pathology returned as mucinous adenocarcinoma Chest CT with known lung mass of unknown etiology; likely metastatic versus lung cancer versus pneumonia [facility] will await plan from family meeting today We will continue to monitor this patient Charges/Coding Visit Charges Inpatient E&M: 27237 Subs Hosp L1 (post-op; no charge)
--- NOTE | 2025-04-30 09:45 | CON.PCM.PA_ITS ---
[facility] Medical History End stage renal disease Vascular dementia, unspecified severity, with other behavioral disturbance Dependence on renal dialysis Dysarthria following cerebral infarction Peripheral vascular disease, unspecified Dysarthria and anarthria Neuromuscular dysfunction of bladder, unspecified Hypothyroidism, unspecified Transient cerebral ischemic attack, unspecified Aphasia following cerebral infarction Frontal lobe and executive function deficit following cerebral infarction Chronic obstructive pulmonary disease, unspecified Hypertensive heart and chronic kidney disease without heart failure, with stage 5 chronic kidney disease, or end stage renal disease Hemiplegia, unspecified affecting left nondominant side Memory deficit following cerebral infarction penitentiary resident AV fistula penitentiary resident ESRD on hemodialysis TIA (transient ischemic attack) Anemia Hypertension ESRD (end stage renal disease) on dialysis Problem with dialysis access Chronic diastolic (congestive) heart failure End-stage renal disease (ESRD) History of CVA (cerebrovascular accident) (12/15/19) Essential hypertension Problem with dialysis access Respiratory failure with hypoxia Iron deficiency anemia RENAL FAILURE STAGE 6 Chronic renal failure, stage 5 Dementia Elevated troponin I level Metabolic acidosis Acute respiratory failure with hypoxia Anemia Iron deficiency anemia Chronic kidney disease (CKD) stage G5/A1, glomerular filtration rate (GFR) less than or equal to 15 mL/min/1.73 square meter and albuminuria creatinine ratio less than 30 mg/g Cough Shortness of breath Cerebellar infarct Speech apraxia Asthma Glaucoma Obesity (BMI 30.0-34.9) Hyperlipidemia Home Medications ?Medication ?Instructions ?Recorded ?Last Taken ?Type timolol maleate 0.5 % eye drops 1 drp EACH EYE BID GLA UCOMA 11/26/15 03/15/23 History levothyroxine 100 mcg tablet 100 mcg PO DAILY HYPOTHYR OIDISM 07/31/19 03/15/23 History isosorbide mononitrate 60 mg 60 mg PO SUMOWEFR HTN 10/0903/14/23 History tablet,extended release 24 hr albuterol sulfate 90 mcg/actuation 2 inh inhalation Q4 H PRN Shortness 07/17/22 Unknown History aerosol inhaler Of Breath budesonide-formoterol HFA 160 1 inh inhalation QHS RAYSHAWN RTNESS OF 07/17/22 03/14/23 History mcg-4.5 mcg/actuation aerosol BREATH inhaler dextran 70-hypromellose 0.1 %-0.3 1 drp ophthalmic (ey e) QHS eye 07/17/22 03/14/23 History % eye drops health albuterol sulfate 2.5 mg/3 mL 2.5 mg continuous nebuli zation Q4H 12/05/22 Unknown History (0.083 %) solution for nebulization PRN SOB/Wheezing clopidogrel 75 mg tablet 75 mg PO DAILY anti platelet #30 12/06/22 03/15/23 Rx tabs atorvastatin 20 mg tablet 40 mg (2 x 20 mg) PO DAILY 1 03/14/23 Rx CHOLESTEROL #1 TAB acetaminophen 500 mg capsule 500 mg PO Q6H PRN fever o r pain 08/29/23 Unknown History bisacodyl 10 mg rectal suppository 10 mg CO DAILY PRN constipation 08/29/23 Unknown History donepezil 10 mg tablet 10 mg PO QHS DEMENTIA Unknown History magnesium hydroxide 400 mg/5 mL 5 ml PO DAILY PRN cons tipation 08/29/23 Unknown History oral suspension (Milk of Magnesia) mineral oil (Fleet Mineral Oil 118 ml CO DAILY PRN con stipation 09/12/23 Unknown History enema) memantine 5 mg tablet 5 mg PO BID DEMENTIA 4 Unknown History sevelamer carbonate 800 mg tablet 800 mg PO TID kidney disease 07/03/24 Unknown History vitamin B complex-vitamin C-folic 1 tab PO DAILY CKD 0 07/03/24 Unknown History acid 0.8 mg tablet (Nephro-Jean Paul) food supplemt, lactose-reduced 120 ml PO 4X/DAY #0 mL 07/05/24 Unknown Rx 0.08 gram-1.5 kcal/mL oral liquid (Ensure Plus High Protein) bimatoprost 0.03 % eye drops 1 drp ophthalmic (eye) DA SONJA 04/23/25 Unknown History brinzolamide 1 %-brimonidine 0.2 % 1 drp LEFT EYE BID EYE PRESSURE 04/23/25 Unknown History eye drops,suspension (Simbrinza) guaifenesin 600 mg tablet, 600 mg PO BID PRN congestio n 04/23/25 Unknown History extended release 12 hr (Mucinex) loperamide 2 mg tablet 2 mg PO Q8H PRN loose stool 04/23/25 Unknown History (Anti-Diarrheal (loperamide)) nifedipine 30 mg tablet,extended 30 mg PO QHS CKD AND HYPERTENSIVE 04/23/25 Unknown History release 24 hr HEART DISEASE prednisolone acetate 1 % eye 1 drp ophthalmic (eye) Q1 2H HERPES 04/23/25 Unknown History drops,suspension ZOSTER sennosides 8.6 mg tablet 8.6 mg PO DAILY 04/23/25 Unk nown History (Black-Draught Lax-Senna) Allergy/AdvReac Type Severity Reaction Status Date / Time erythromycin base Allergy Rash Verified 04/23/25 00:11 lisinopril Allergy Unknown Verified 04/23/25 00:11 NSAIDS (Non-Steroidal Allergy Other Verified 04/23/25 00:11 Anti-Inflamma Salicylates Allergy Other Verified 04/23/25 00:11 Family History Mother Colon cancer Hypertension Father Hypertension Surgical History History of loop recorder (07/20/19) s/p left AV fistula creation (02/19/19) Hx of foot surgery Hx of thyroidectomy Hx of cataract extraction Hx of hysterectomy Social History Smoking Status: Never smoker alcohol intake: never substance use type: does not use caffeine: Yes what type of physical activity do you participate in: none frequency: does not exercise ROS Review of Systems ROS Unobtainable: due to mental status Physical Exam Const Constitutional Narrative: non-communitive Orientation / Consciousness: lethargic Lymph Lymphatic: no lymphadenopathy noted Resp Auscultation: diminished lung sounds Cardio peripheral pulses 2+ throughout Rhythm: abnormal rhythm GI GI Narrative: midline surgical incision Auscultation: hypoactive bowel sounds Extremity Peripheral Pulses: Yes pulses 2+ throughout Skin no rashes or lesions noted Wounds: wounds noted pablo Psych Psych Narrative: flat Charges/Coding Palliative Care Palliative Care: [id number] New Pt Consult 80+ min HPI Current admission Current Code Status: DNRCC Associated Diagnosis: SBO, intussusception, ESRD, Colon mass Consult Data Date of Consult: 04/30/25 Location of consult: med surg Reason for referral: goals of care and code status Referral source: Pauly Palliative care diagnosis (Summary list): as above. Needs for goals of care conversation in the setting of life limiting illness HPI Narrative HPI Narrative: PAIN ASSESSMENT nods her head no currently but has been receiving Morphine SL. LOUISE ZAVALA, is a 89 F who presented on 04/23/25 with AMS. She was seen to have a mass on CT and an exploratory LAP was done yesterday in which they performed a R colectomy with anastomosis. She has a midline surgical incision with pablo in place that are well approximated with no drainage, redness or swelling. Mass is found to be cancerous. She also has a mass in the RLL measuring 3.2x5x4.4 and is most likely cancerous, as well. At baseline she is bedbound and aphasic. from prevoius CVA. Family does take her out in a wheelchair occasionally. She has ESRD and is anuric. She lives at [facility] in the memory care unit. I had an extensive family meeting with daughter [place] inarmando, son Antoinette via video chat and sister Rae via video chat. I explained all of the benefits versus burdens of their mothers currently medical diagnosis and the trajectory of her illness. Family is aware of their mothers decline and know that she is nearing the end of her life. It was decided to concentrate on their mothers comfort and transition her to hospice. They have chosen [facility] as they agency of choice. I did introduce the various possiilities for hospice care going forward and they have decided that they would like to transition to [facility]. They were agreeable to DNRCC and comfort measures here in the hospital. I did place those orders per Dr. Coats. Code status changed. I did update SHERYL/MARIAN, RN, and All questions answered. per hospitalist: LOUISE ZAVALA, is a 89 F who presents to the emergency room with chief complaint of change in level of alertness at the group home. Patient has onset of diarrhea symptoms beginning this past Tuesday and has had decreased oral intake beginning this weekend progressing through today. Patient has significant past medical history of end-stage renal disease for which she is on dialysis and due to have dialysis today, as well as history of stroke with aphasia.. Patient is not normally verbal at her baseline but is able to make hand gestures and acknowledge others by her actions. Currently she is resting in no acute distress and opens her eyes when spoken to. Patient was seen with her daughter in the room who confirms patient's wishes are to be full code at this time. Laboratory reveal white blood cell count of 10.6, hemoglobin 11, hematocrit 35.3, platelets 169, sodium 139, potassium 3.6, chloride 95, bicarb 24.9, BUN 44, creatinine 8.99, glucose 105, CT scan abdomen shows ileocolonic intussusception and high-grade mechanical small bowel obstruction. ER physician Dr. Randolph spoke with Dr. Naqvi surgeon who recommended watchful waiting and he will see in consultation on the floor and the NG tube was not needed at this time. Patient will be also consulted to Dr. Patrick for dialysis. Palliative Assessment Advanced Directive - Current Admission Advance Directive: Advance Directive ON ADMISSION - REFERENCE 3 Do you have a Healthcare No 04/23/25 03:55 Living Will? Do you have a Healthcare Power Yes 04/23/25 03:55 of Edi Manager? Is a Healthcare Power of Yes, It is scanned in 04/23/25 03:55 Edi Manager present in the medical rec Do You Want Additional Declined 04/23/25 03:55 Information on Advanced Directives or Healthcare Proxy/DPOA comments: daughter Psychosocial/Spiritual Information Living situation/Marital status: lives at [facility] Geographic location: [place] Supports: family Restorationism/Lillie or spiritual preference: temple Spiritual distress: none Prior functional status: bed and occassional wc for outings Assistive devices at home: [facility] Cultrual issues: only one daughter lives local Information about the patient as a person: very loving and supportive family. Large supportive yazdanism family Symptoms Palliative performance scale: 10-20% Palliative prognostic index: 10.5 (if the PPI is greater than 6.0, survival is less than 3 weeks) Dyspnea symptoms: None Anorexia symptoms: Severe Weakness symptoms: Severe Objective Data Objective Data Vital Signs: Vital Signs Temp Pulse Resp BP Pulse Ox O2 Del Method O2 Flow Rate 98 F 87 14 138/68 H 95 Room Air 6 04/30/25 08:55 04/30/25 09:30 04/30/25 08:55 04/30/25 09:30 04/30/25 08:55 04/30/25 08:55 04/23/25 16:22 Oxygen Flow Rate (L/min) 6 Oxygen Delivery Method Room Air Weight: 119 lb 0.794 oz Body Mass Index (BMI) 21.1 Intake & Output: Intake and Output for Last 24 Hours 04/28/25 04/29/25 04/30/25 23:59 23:59 23:59 Intake Total 110 / 110 0 / 0 50 / 50 Balance 110 / 110 0 / 0 50 / 50 Medical Nutrition Assessment Dietitian: Malnutrition Criteria Met Start: 04/23/25 15:00 Freq: Status: Active Protocol: Document 04/29/25 13:59 [facility] (Rec: 04/29/25 13:59 [facility] [id number]) Nutrition Malnutrition Evidence of Yes Malnutrition Exists Malnutrition (severe Chronic ): Evidenced By Suboptimal Energy Intake (Severe),Weight Loss (Severe), Physical Changes (Moderate) Intake Problem Inadequate Oral Intake Status Inactive Problem Clinical Problem Chronic Disease or Condition Related Malnutrition Etiology severe protein-calorie malnutrition in the context of chronic disease and debility/advanced age related to inadequate oral intake and altered GI function Signs/Symptoms as evidenced by BMI 21.1; ~11-13% unintentional weight loss x past 4-6 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 Status Active Problem Recommendation Dietitian Recommend advance diet as tolerated to regular/no added Recommendations/ salt. Changes Will change Ensure Clear to Nepro for increased nutrition if consumed. Consider nutrition support d/t continued lethargy and poor po intake to help prevent further decline in nutritional status. Lab / Micro Data Attestation: I reviewed the patient's lab results. Lab results narrative: pt did have dialysis today 04/30/25 05:45 04/30/25 05:45 Labs: Laboratory Results - last 24 hr 04/30/25 05:45: WBC 7.0, RBC 4.33, Hgb 11.5 L, Hct 36.8 L, MCV 85.0, MCH 26.6 L, MCHC 31.3 L, RDW Std Deviation 51.9 H, RDW Coeff of Lizett 17.0 H, Plt Count 164, M PV 12.9 H, Immature Gran % (Auto) 0.400, Neut % (Auto) 63.3, Lymph % (Auto) 19.3, [place] % (Auto) 14.5 H, Eos % (Auto) 1.9, Baso % (Auto) 0.6, Absolute Neuts (auto) 4.4, Absolute Lymphs (auto) 1.35, Nucleated RBC % 0.6, Sodium 144, Potassium 4.4, Chloride 103, Carbon Dioxide 22.5, Anion Gap 18 H, BUN 54 H, C reatinine 9.10 H*, Estim Creat Clear Calc 3.47 L*, Est GFR (MDRD) Non-Af 4 L, B UN/Creatinine Ratio 5.9 L, Glucose 93, Calcium 8.3 Micro: Microbiology 04/23/25 01:02 Mucosa - Nose SARS-CoV-2, Influenza & RSV (PCR) - Final Radiography Diagnostic Testing: Radiology Impression KUB X-Ray 04/29/25 09:25 IMPRESSION: Dilated loops of small bowel likely reflective of postoperative ileus. Reading Location: [facility] Impressions & Recommendations Patient & Family Issues discussed with the patient and family: goals of care and code status- hospice Patient goal: unable to participate Family goal: comfort focused care Ethical & Legal Ethical and legal: POA-daughter Impressions Impressions: pt would beneift from comfort care Recommentation Palliative recommendations: hospice Encouter Achieved as a result of this Palliative Care Encounter: [ [id number], [id number]] minutes were spent in total for this visit which consisted, primarily of counseling and education dealing with the complex and emotionally intense issues of symptom management and palliative care in the setting of serious and potentially life-threatening illness. Review of documentation, labs and radiological studies. ?Patient/family had the opportunity to ask questions Plan (1) End stage renal disease on dialysis: (2) Colonic mass: (3) Dementia: QUALIFIERS: Dementia type: vascular dementia Dementia severity: m oderate Dementia behavioral or psychological symptom: unspecified whether behavioral, psychotic, or mood disturbance or anxiety Qualified Code(s): F01.B0 - Vascular dementia, moderate, without behavioral disturbance, psychotic disturbance, mood disturbance, and anxiety (4) Goals of care, counseling/discussion: (5) Palliative care encounter: PLAN: Plan *family meeting about goals of care *comfort care orders placed *discussion about code status-changed to DNRCC *warm handoff to [facility] pt update *hospice order placed. *update provided to SW/MARIAN, RN and provider.
--- NOTE | 2025-04-30 13:34 | CASEMGMT ---
Received karina from [facility] at [facility] requesting an update on pt. She is aware that pt will have an inpt palliative consult today. She requests update on final dc disposition.
--- NOTE | 2025-04-30 14:11 | CASEMGMT ---
Addendum entered by Kyung Clemons 04/30/25 14:27: SHERYL updated pt dtr on referral status. Pt dtr reports no needs at this time and did not feel that she needed any supports at this time. SHERYL remains available to follow. CHRISTIANO Napoles Original Note: Social Work- SHERYL met with Palliative HOSPITAL MORTICIAN who reports that pt family would like referral to [facility]. Triny requests that the referral be emergent. SHERYL notified hospitalist who responded in agreement via text with hospice consult order. SHERYL emailed referral and followed up with a phone call to [facility]. SHERYL notified [facility] of discharge change; pt will no longer be returning to [facility]. SHERYL remains available to follow. Plan: [facility] CHRISTIANO Napoles
--- NOTE | 2025-04-30 14:14 | CASEMGMT ---
Discharge Planning [facility] updated via [facility] that pt will discharge to [facility]. Nina Trejo DC Planning Asst.
[2025-04-30] MEDS: MorphINE SOLN 10 MG/0.5 ML PO.SYRINGE 5 MG SL/PO (17:45)
--- NOTE | 2025-05-01 13:10 | DS.PCM_ITS ---
Providers Date of Admission: 04/23/25 Date of Discharge: 04/30/25 Primary Care Physician: Dr. Kishan Camejo MD Consultations 04/23/25 03:50 Consult: General Surgery Routine Consulting Provider: Nick Way Reason for Consult: Small bowel obstruction/intussusception EMERGENT Consult: Yes MD Notified: Yes Date Notified: 04/23/25 Time Notified: 03:09 Method of Notification: ED Physician Initiated Consult: Nephrology Routine Consulting Provider: Kianna Patrick Reason for Consult: dialysis EMERGENT Consult: No MD Notified: Yes Date Notified: 04/23/25 Time Notified: 08:16 Method of Notification: Text 04/30/25 08:46 Consult: Inpatient Palliative Care Routine Consulting Provider: Triny Dean Reason for Consult: palliative care EMERGENT Consult: No MD Notified: Yes Date Notified: 04/30/25 Time Notified: 08:47 Method of Notification: Text 04/30/25 14:04 Consult: Hospice / Outpatient Palliative Care Routine Consulting Provider: [facility] Reason for Consult: Significant decline in medical state EMERGENT Consult: Yes MD Notified: Yes Date Notified: 04/30/25 Time Notified: 14:04 Method of Notification: Text 04/30/25 14:14 Consult: Hospice / Outpatient Palliative Care Routine Consulting Provider: [facility] Reason for Consult: end of life hospice-ESRD, Colon CA EMERGENT Consult: Yes MD Notified: Yes Date Notified: 04/30/25 Time Notified: 14:14 Method of Notification: Text Reason For Visit: SMALL BOWEL OBSTRUCTION-INTUSSUSCEPTION, END-STAGE Diagnosis Discharge Diagnosis (1) End stage renal disease on dialysis: Status: Acute Code(s): N18.6 - End stage renal disease; Z99.2 - Dependence on renal dialysis (2) Colonic mass: Status: Acute Code(s): K63.89 - Other specified diseases of intestine (3) Dementia: Status: Acute Code(s): F03.90 - Unspecified dementia, unspecified severity, without behavioral disturbance, psychotic disturbance, mood disturbance, and anxiety Qualifiers: Dementia type: vascular dementia Dementia severity: moderate Dementia behavioral or psychological symptom: unspecified whether behavioral, psychotic, or mood disturbance or anxiety Qualified Code(s): F01.B0 - Vascular dementia, moderate, without behavioral disturbance, psychotic disturbance, mood disturbance, and anxiety (4) Goals of care, counseling/discussion: Status: Acute Code(s): Z71.89 - Other specified counseling (5) Palliative care encounter: Status: Acute Code(s): Z51.5 - Encounter for palliative care Medications at Discharge Home Medications timolol maleate 0.5 % eye drops 1 drp EACH EYE BID GLAUCOMA 11/26/15 levothyroxine 100 mcg tablet 100 mcg PO DAILY HYPOTHYROIDISM 07/31/19 isosorbide mononitrate 60 mg tablet,extended release 24 hr 60 mg PO SUMOWEFR HTN 10/26/19 albuterol sulfate 90 mcg/actuation aerosol inhaler 2 inh inhalation Q4H PRN Shortness Of Breath 07/17/22 budesonide-formoterol HFA 160 mcg-4.5 mcg/actuation aerosol inhaler 1 inh inhalation QHS SHORTNESS OF BREATH 07/17/22 dextran 70-hypromellose 0.1 %-0.3 % eye drops 1 drp ophthalmic (eye) QHS eye health 07/17/22 albuterol sulfate 2.5 mg/3 mL (0.083 %) solution for nebulization 2.5 mg continuous nebulization Q4H PRN SOB/Wheezing 12/05/22 clopidogrel 75 mg tablet 75 mg PO DAILY anti platelet #30 tabs 12/06/22 atorvastatin 20 mg tablet 40 mg (2 x 20 mg) PO DAILY CHOLESTEROL #1 TAB 03/16/23 acetaminophen 500 mg capsule 500 mg PO Q6H PRN fever or pain 08/29/23 bisacodyl 10 mg rectal suppository 10 mg GA DAILY PRN constipation 08/29/23 donepezil 10 mg tablet 10 mg PO QHS DEMENTIA 08/29/23 magnesium hydroxide 400 mg/5 mL oral suspension (Milk of Magnesia) 5 ml PO DAILY PRN constipation 08/29/23 mineral oil (Fleet Mineral Oil enema) 118 ml GA DAILY PRN constipation 09/12/23 memantine 5 mg tablet 5 mg PO BID DEMENTIA 03/12/24 sevelamer carbonate 800 mg tablet 800 mg PO TID kidney disease 07/03/24 vitamin B complex-vitamin C-folic acid 0.8 mg tablet (Nephro-Jean Paul) 1 tab PO DAILY CKD 07/03/24 food supplemt, lactose-reduced 0.08 gram-1.5 kcal/mL oral liquid (Ensure Plus High Protein) 120 ml PO 4X/DAY #0 mL 07/05/24 bimatoprost 0.03 % eye drops 1 drp ophthalmic (eye) DAILY 04/23/25 brinzolamide 1 %-brimonidine 0.2 % eye drops,suspension (Simbrinza) 1 drp LEFT EYE BID EYE PRESSURE 04/23/25 guaifenesin 600 mg tablet, extended release 12 hr (Mucinex) 600 mg PO BID PRN congestion 04/23/25 loperamide 2 mg tablet (Anti-Diarrheal (loperamide)) 2 mg PO Q8H PRN loose stool 04/23/25 nifedipine 30 mg tablet,extended release 24 hr 30 mg PO QHS CKD AND HYPERTENSIVE HEART DISEASE 04/23/25 prednisolone acetate 1 % eye drops,suspension 1 drp ophthalmic (eye) Q12H HERPES ZOSTER 04/23/25 sennosides 8.6 mg tablet (Black-Draught Lax-Senna) 8.6 mg PO DAILY 04/23/25 Hospital Course Operations - (Right colectomy with anastomosis) Procedures Dialysis Summary of Care Provided Minutes Spent on Discharge: 40 Hospital Course: Per HPI: LOUISE ZAVALA, is a 89 F who presents to the emergency room with chief complaint of change in level of alertness at the alf. Patient has onset of diarrhea symptoms beginning this past Tuesday and has had decreased oral intake beginning this progressing through today. Patient has significant past medical history of end-stage renal disease for which she is on dialysis and due to have dialysis today, as well as history of stroke with aphasia.. Patient is not normally verbal at her baseline but is able to make hand gestures and acknowledge others by her actions. Currently she is resting in no acute distress and opens her eyes when spoken to. Patient was seen with her daughter in the room who confirms patient's wishes are to be full code at this time. Laboratory reveal white blood cell count of 10.6, hemoglobin 11, hematocrit 35.3, platelets 169, sodium 139, potassium 3.6, chloride 95, bicarb 24.9, BUN 44, creatinine 8.99, glucose 105, CT scan abdomen shows ileocolonic intussusception and high-grade mechanical small bowel obstruction. ER physician Dr. Randolph spoke with Dr. Naqvi surgeon who recommended watchful waiting and he will see in consultation on the floor and the NG tube was not needed at this time. Patient will be also consulted to Dr. Patrick for dialysis. Hospital Course: #Small bowel obstruction with intussusception * Patient admitted with a complaint of abdominal pain and found to have small bowel obstruction with intussusception per imaging done * Continue hydration with IV fluids. IV morphine prn * She had EKG done preop which showed sinus rhythm with occasional PVCs and possible left atrial enlargement with left axis deviation and right bundle branch block as well as evidence of lateral and inferior infarct age undetermined. She had a 2D echo done in June 2024 which showed EF of 60% with mild 1+ mitral valve insufficiency. She does not have any chest pain right now or any other such symptoms. Will therefore hold off on any further workup as patient is high risk in light of a history of heart disease and stroke and her advanced age. * Today is postop day 3 for diagnostic laparoscopy with exploratory laparotomy and right colectomy with anastomosis. * Surgery showed right colon intussusception with possible mass of the right colon. * Patient remains on clear liquid diet by general surgery. Management as per general surgery. * Continue hydration with IV fluids. * CT chest done for staging of possible cancer showed a 3.2 x 5 x 4.4cm mass in charlene right upper lobe which may represent pneumonia or lung cancer. 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 * I spoke to Rona Barone of [facility]. Since we do not have pathology results back we cannot effectively start treatment. She did work with patient information and will get the patient in within a week and a half once pathology results are back. * per oncology, they will do a PET scan on outpatient basis to evaluate and then determine treatment 04/29/2025: I did 25-minute conversation with the daughter at bedside about advance care planning in regards to prognosis and treatment as well as the differences between palliative care and hospice care. They do not think that they would like to proceed with any type of chemotherapy or radiation therapy and they are concerned with her not eating, I discussed with her that it 89 years old with a history of dementia that she would not be a candidate for feeding tubes so she is going to discuss with the rest of her family to decide whether or not we proceed with palliative care at the alf or proceed with hospice care 04/30/2025: Will transition to Roxanol p.o. and consult palliative care. The daughter who is POA at bedside stated that she had spoken with her family and that they would not want to pursue any oncological workup or treatment ? Family had a discussion with palliative care provider and ultimately decided to proceed hospice. Hospice was consulted and she was accepted to the inpatient unit and discharged for comfort care. #Lung mass * CT chest showed 3.2 x 5 x 4.4cm right upper lobe mass, which may likely be malignant and possible mets from the colon mass. * discussed with oncology as above; she is to follow with oncology once the pathology results are in. #Acute metabolic encephalopathy * Patient has been quite lethargic and minimally responsive for the last few days. CT of the brain done today however showed no evidence of any acute intracranial pathology * Does wake up intermittently and answer a few questions. 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 Nephrology on board. On sevelamer #History of stroke: On statin and plavix #Hypothyroidism: on synthroid #Dementia: on memantine and donepezil #Glaucoma: on timolol and and brinzolamide-brimonidine #Hypertension: on nifedipine Weight / BMI Weight Weight: 118 lb 6.212 oz Body Mass Index (BMI) 20.9 ABG / Lab / Microbiology Data 04/30/25 05:45 04/30/25 05:45 Microbiology: Microbiology 04/23/25 01:02 Mucosa - Nose SARS-CoV-2, Influenza & RSV (PCR) - Final D/C Instructions DC O2, CPAP, BIPAP Needs Home O2 Discharge instructions: No Meaningful Use Info Meaningful Use Meaningful Use Diagnoses (Choose all that apply): None applicable Discharge Plan Admission Admit Date/Time: 04/23/25 03:05 Attending Provider: Micha Feliciano Primary Care Provider: Kishan Camejo Consulting Providers: Nick Way; Kishan Camejo; Kianna Patrick; Genny Perea; Triny Dean; John Mccabe; Christine Valdez; Kathia García; Kiley Polanco; Ara Vu NP; Zofia Velasquez Discharge Orders/Prescriptions Prescriptions: No Action levothyroxine 100 mcg tablet 100 mcg PO DAILY mineral oil [Fleet Mineral Oil] Enema 118 ml GA DAILY PRN (Reason: constipation) Rx Instructions: discard any unused portion Rectally every 24 hours as needed for constipation Once daily administer after once daily if no BM 8 hours after receiving suppository, If NO BM WITHIN 1 HOUR AFTER RECEIVNG ENEMA NOTIFY donepezil 10 mg tablet 10 mg PO QHS magnesium hydroxide [Milk of Magnesia] 400 mg/5 mL suspension 5 ml PO DAILY PRN (Reason: constipation) bisacodyl 10 mg suppository 10 mg GA DAILY PRN (Reason: constipation) acetaminophen 500 mg capsule 500 mg PO Q6H PRN (Reason: fever or pain) memantine 5 mg tablet 5 mg PO BID timolol maleate 1 DROP drops 1 drp EACH EYE BID isosorbide mononitrate 60 MG tablet 60 mg PO SUMOWEFR albuterol sulfate 90 mcg/actuation HFA aerosol inhaler 2 inh INHALATION Q4H PRN (Reason: Shortness Of Breath) Patient Comments: PRN PER MAR budesonide-formoterol 160-4.5 mcg/actuation Hfa Aerosol Inhaler 1 inh INHALATION QHS dextran 70-hypromellose 0.1-0.3 % Drops 1 drp ophthalmic (eye) QHS Rx Instructions: INSTILL 1 DROP IN BOTH EYES AT BEDTIME FOR GLUCOMA albuterol sulfate 2.5 mg /3 mL (0.083 %) solution for nebulization 2.5 mg continuous nebulization Q4H PRN (Reason: SOB/Wheezing) Patient Comments: PRN PER MAR clopidogrel 75 mg Tablet 75 mg PO DAILY Qty: 30 5RF atorvastatin 20 mg Tablet 40 mg PO DAILY Qty: 1 0RF Nephro-Jean Paul 0.8 mg tablet 1 tab PO DAILY sevelamer carbonate 800 mg tablet 800 mg PO TID Ensure Plus High Protein 0.08 gram-1.5 kcal/mL Liquid 120 ml PO 4X/DAY Qty: 0 0RF bimatoprost 0.03 % drops 1 drp ophthalmic (eye) DAILY Rx Instructions: INSTILL 1 DROP IN LEFT EYE IN THE MORNING FOR EYE PRESSURE. DO NOT INTERCHANGE! loperamide [Anti-Diarrheal (loperamide)] 2 mg tablet 2 mg PO Q8H PRN (Reason: loose stool) Rx Instructions: DO NOT EXCEED 6MG IN 24 HOURS. GIVE ONE TABLET AFTER EACH BM. nifedipine 30 mg tablet extended release 24hr 30 mg PO QHS guaifenesin [Mucinex] 600 mg tablet extended release 12hr 600 mg PO BID PRN (Reason: congestion) prednisolone acetate 1 % drops,suspension 1 drp ophthalmic (eye) Q12H sennosides [Black-Draught Lax-Senna] 8.6 mg tablet 8.6 mg PO DAILY Simbrinza 1-0.2 % drops,suspension 1 drp LEFT EYE BID Referrals / Follow Up: Kishan Camejo MD [Primary Care Provider, Family Practice] Disposition Disposition (needs filled in before D/C Order can be placed): Hospice in Medical Facility Charges/Coding Visit Charges Inpatient E&M: 87760 Disch Hosp >30min
== END 2025-04-30 18:03 | disposition hospice, inpatient (51) | DRG 329 ==
LOC: ED 01:43 → MS3 03:15
PROVIDERS: Anesthesiology; Student in an Organized Health Care Education/Training Program; Surgery; Admitting Provider Family Medicine; Emergency Provider Emergency Medicine; PCP Family Medicine; Visit Provider Family Medicine
PROC: 0DTF4ZZ Resection of Right Large Intestine, Percutaneous Endoscopic Approach (ICD-10-PCS; CPT 44205; principal; 2025-04-23 12:40)
DX: K56.1 Intussusception (principal); N18.6 End stage renal disease; G93.41 Metabolic encephalopathy; E43 Unspecified severe protein-calorie malnutrition; I13.2 Hypertensive heart and chronic kidney disease with heart failure and with stage 5 chronic kidney disease, or end stage renal disease; C18.2 Malignant neoplasm of ascending colon; I50.32 Chronic diastolic (congestive) heart failure; J44.9 Chronic obstructive pulmonary disease, unspecified; F01.B0 Vascular dementia, moderate, without behavioral disturbance, psychotic disturbance, mood disturbance, and anxiety; E03.9 Hypothyroidism, unspecified; I69.320 Aphasia following cerebral infarction; Z99.2 Dependence on renal dialysis; E78.5 Hyperlipidemia, unspecified; H40.9 Unspecified glaucoma; R91.8 Other nonspecific abnormal finding of lung field; Z66 Do not resuscitate; Z53.31 Laparoscopic surgical procedure converted to open procedure; Z68.20 Body mass index [BMI] 20.0-20.9, adult; Z79.02 Long term (current) use of antithrombotics/antiplatelets; Z79.890 Hormone replacement therapy; Z79.899 Other long term (current) drug therapy; Z80.0 Family history of malignant neoplasm of digestive organs
CPT/HCPCS: 36415; 70450; 71250; 74018; 74177; 80048; 80076; 83690; 83735; 84100; 85025; 85610; 85730; 86850; 86900; 86901; 87631; 88307; 90937; 93005; 94640; 97110; 97162; 97166; 97530; 97802; 97803; 99285; Q9967; A4216; G0257; J0666; J2405